=== PATIENT | male | born 1970 | race Caucasian/White ===

== ENCOUNTER 2018-10-23 00:39 | Inpatient (IN) | payer OTHER ==
--- OUTSIDE RECORDS SUMMARY | 2018-10-23 00:43 | XMS REPORT ---
:1970 [facility] Address [address] [place] [address] Dr. Fuentes [address] [place] [id number] Care Team Providers Name Role Phone Unavailable Unavailable Unavailable Problems This patient has no known problems. Allergies, Adverse Reactions, Alerts This patient has no known allergies or adverse reactions. Medications This patient has no known medications.
--- OUTSIDE RECORDS SUMMARY | 2018-10-23 00:43 | XMS REPORT | Clinical Summary ---
:1970 Author Organization [facility] Address [address] [place] [address] Care Team Providers Name Role Phone Unavailable Primary Care Provider Unavailable Allergies Not on File Medications Not on file Active Problems Not on file Social History Tobacco Use Types Packs/Day Years Used Date Never Assessed Sex Assigned at Date Recorded Not on file Job Start Date Occupation Industry Not on file Not on file Not on file Travel History Travel Start Travel End No recent travel history available. Last Filed Vital Signs Not on file Plan of Treatment Not on file Results Not on fileafter 10/22/2017 Insurance Payer Benefit Plan / Group Subscriber ID Type Phone Address [place]
--- OUTSIDE RECORDS SUMMARY | 2018-10-23 00:43 | XMS REPORT | Clinical Summary ---
:1970 Author Organization [facility] Address [address] [place] [address] Care Team Providers Name Role Phone Asked, No Pcp Primary Care Provider Unavailable Allergies No Known Allergies Medications Medication Sig Dispensed Refills Start Date End Date Status aspirin (ECOTRIN) 81 Take 81 mg by 0 Active MG enteric coated mouth daily. tablet atorvastatin Take 40 mg by 0 Active (LIPITOR) 40 MG mouth nightly. tablet carisoprodol (SOMA) Take 350 mg by 0 Active 350 MG tablet mouth 3 (three) times a day as needed for muscle spasms. carvedilol (COREG) Take 12.5 mg 0 Active 12.5 MG tablet by mouth 2 (two) times a day with meals. digOXIN (LANOXIN) Take 125 mcg 0 Active 125 mcg tablet by mouth daily. HYDROcodone-acetamin Take 1 tablet 0 Active ophen (NORCO) 10-325 by mouth every mg per tablet 6 (six) hours as needed for moderate pain. isosorbide Take 30 mg by 0 Active mononitrate (IMDUR) mouth daily. 30 MG 24 hr tablet lisinopril Take 20 mg by 0 Active (PRINIVIL,ZESTRIL) mouth daily. 20 mg tablet pantoprazole Take 40 mg by 0 Active (PROTONIX) 40 MG EC mouth daily. tablet traMADol (ULTRAM) 50 Take 50 mg by 0 Active mg tablet mouth every 8 (eight) hours as needed for moderate pain. aspirin (ECOTRIN) 81 Take 81 mg by 0 /03/20 Discontinued MG enteric coated mouth daily. 18 tablet atorvastatin Take 40 mg by 0 20 Discontinued (LIPITOR) 40 MG mouth nightly. 18 tablet furosemide (LASIX) Take 80 mg by 0 05/06/20 Discontinued 80 MG tablet mouth 2 (two) 18 times a day. potassium chloride Take 40 mEq by 0 05/06/20 Discontinued (K-DUR) 20 MEQ CR mouth daily. 18 tablet lisinopril Take 20 mg by 0 05/06/20 Discontinued (PRINIVIL,ZESTRIL) mouth daily. 18 20 MG tablet metoprolol succinate Take 12.5 mg 0 05/06/20 Discontinued XL (TOPROL-XL) 25 MG by mouth 2 18 24 hr tablet (two) times a day. HYDROcodone-acetamin Take 1 tablet 0 05/06/20 Discontinued ophen (NORCO 10-325) by mouth every 18 10-325 mg per tablet 6 (six) hours as needed for moderate pain. pantoprazole Take 40 mg by 0 05/06/20 Discontinued (PROTONIX) 40 MG EC mouth daily. 18 tablet traMADol (ULTRAM) 50 Take 50 mg by 0 05/06/20 Discontinued mg tablet mouth every 8 18 (eight) hours as needed for moderate pain. digOXIN (LANOXIN) Take 125 mcg 0 05/06/20 Discontinued 125 mcg tablet by mouth 18 daily. isosorbide Take 30 mg by 0 05/06/20 Discontinued mononitrate (IMDUR) mouth daily. 18 30 MG 24 hr tablet carvedilol (COREG) Take 12.5 mg 0 05/06/20 Discontinued 12.5 MG tablet by mouth 2 18 (two) times a day with meals. amoxicillin-pot Take 1 tablet 0 05/06/20 Discontinued clavulanate by mouth 2 18 (AUGMENTIN) 875-125 (two) times a mg per tablet day. spironolactone Take 25 mg by 0 05/06/20 Discontinued (ALDACTONE) 25 MG mouth daily. 18 tablet triamcinolone Apply 4.1667 600 mL 0 01/18/2018 02/18/20 acetonide mg topically 2 18 (TRIAMCINOLONE 100 (two) times a MG IN LUBRIDERM) 100 day for 30 mg lotion days. amoxicillin (AMOXIL) Take 2 24 capsule 0 01/18/2018 01/23/20 500 MG capsule capsules 18 (1,000 mg total) by mouth 3 (three) times a day for 4 days. minocycline Take 1 capsule 8 capsule 0 01/18/2018 01/23/20 (MINOCIN,DYNACIN) (100 mg total) 18 100 MG capsule by mouth every 12 (twelve) hours for 4 days. levothyroxine Take 1 tablet 30 tablet 1 01/19/2018 02/19/20 (SYNTHROID, LEVOXYL) (50 mcg total) 18 50 mcg tablet by mouth daily for 30 days. carisoprodol (SOMA) TAKE 1 TABLET 0 02/22/2018 05/06/20 Discontinued 350 MG tablet BY MOUTH 2 TO 18 3 TIMES A DAY NEEDED furosemide (LASIX) Take 80 mg by 0 05/20/20 Discontinued 80 mg tablet mouth 2 (two) 18 times a day. potassium chloride Take 20 mEq by 0 05/20/20 Discontinued (K-DUR) 20 MEQ CR mouth 2 (two) 18 tablet times a day. carvedilol (COREG) Take 1 tablet 60 tablet 3 05/20/2018 06/19/20 12.5 MG tablet (12.5 mg 18 total) by mouth 2 (two) times a day with meals for 30 days. diphenhydrAMINE Take 2 tablets 60 tablet 0 05/20/2018 06/19/20 (BENADRYL) 25 mg (50 mg total) 18 tablet by mouth 2 (two) times a day for 30 days. triamcinolone Apply 460,000 [id number] mL 3 05/20/2018 06/19/20 acetonide mg topically 2 18 (TRIAMCINOLONE 100 (two) times a MG IN LUBRIDERM) 100 day for 30 mg lotion days. furosemide (LASIX) Take 1 tablet 60 tablet 3 05/20/2018 06/19/20 80 mg tablet (80 mg total) 18 by mouth 2 (two) times a day for 30 days. potassium chloride Take 1 capsule 30 capsule 3 05/21/2018 06/20/20 (MICRO-K) 10 MEQ CR (10 mEq total) 18 capsule by mouth daily for 30 days. spironolactone Take 1 tablet 30 tablet 3 05/21/2018 06/20/20 (ALDACTONE) 50 MG (50 mg total) 18 tablet by mouth daily for 30 days. metOLazone Take 1 tablet 30 tablet 3 05/21/2018 06/20/20 (ZAROXOLYN) 5 MG (5 mg total) 18 tablet by mouth daily for 30 days. gentamicin Apply 120 g 3 05/20/2018 06/19/20 (GARAMYCIN) 0.1 % topically 18 ointment daily for 30 days. chlorhexidine Apply 600 mL 2 05/20/2018 06/19/20 (HIBICLENS) 4 % topically 18 external liquid daily as needed for wound care for up to 30 days. Apply to affected areas daily nitroglycerin Place 0.5 60 g 1 05/20/2018 06/19/20 (NITROSTAT) 2 % inches on the 18 ointment skin every 6 (six) hours for [address] 1 tablet 90 tablet 12 05/20/2018 05/20/20 (NITROSTAT) 0.4 MG (0.4 mg total) 18 SL tablet under the tongue once for 1 dose. minocycline Take 1 capsule 6 capsule 0 05/20/2018 05/23/20 (MINOCIN) 100 MG (100 mg total) 18 capsule by mouth 2 (two) times a day for 3 days. Active Problems Problem Noted Date Stasis dermatitis 05/07/2018 Cellulitis 01/12/2018 Acquired hypothyroidism 01/09/2018 Acute on chronic congestive heart failure 01/08/2018 Essential hypertension 01/08/2018 Chest pain 05/22/2016 CHF exacerbation 05/22/2016 Morbid obesity 05/22/2016 Encounters Date Type Specialty Care Team Description 05/20/2018 Patient Outreach Quality Liz Hall RN 05/20/2018 Telephone Cardiology Diana Hanley 05/19/2018 Surgery Procedural Jennifer Anglin aicd implant Cardiology MD Dilcia single dual bi vent [[id number] (CPT)] 05/19/2018 Anesthesia Event Procedural Kathy Jolley CRNA 05/13/2018 Telephone Transplant Angelo Rios - Heart QUIRINO Adorno Txp (Inpatient) 05/06/2018 - Hospital Encounter Cardiology Jude Tang Acute on chronic combined systolic and diastolic congestive heart failure (Primary Dx); 05/20/2018 B., DO Chest pain, unspecified type; Attar, Congestive heart failure, unspecified congestive heart failure chronicity, unspecified congestive heart failure type; MD Gabby Prurigo; Kimberly, Morbid obesity; Jason Hill MD Essential hypertension; Antwan, Acquired hypothyroidism; Mendoza O. Sr., Cellulitis of left lower extremity; Venous stasis dermatitis of both lower extremities 01/08/2018 - Hospital Encounter Cardiology Gissell Ramirez Acute on chronic congestive heart failure, unspecified congestive heart failure type (Primary Dx) ; 01/18/2018 MD Toni Pyoderma gangrenosum; Antwan, Other forms of angina pectoris; Mendoza O. Sr., Morbid obesity; Acute on chronic combined systolic and diastolic congestive heart failure; Essential hypertension; Acquired hypothyroidism; Cellulitis of left lower extremity after 10/22/2017 Immunizations Name Dates Previously Given Next Due Influenza, Unspecified 05/22/2015 Pneumococcal, Unspecified 05/22/2016 (Deferred: Patient decision) Social History Tobacco Use Types Packs/Day Years Used Date Never Smoker Smokeless Tobacco: Never Used Alcohol Use Drinks/Week oz/Week Comments No Sex Assigned at Date Recorded Not on file Job Start Date Occupation Industry Not on file Not on file Not on file Travel History Travel Start Travel End No recent travel history available. Last Filed Vital Signs Vital Sign Reading Time Taken Blood Pressure 143/66 05/20/2018 11:31 AM CDT Pulse 73 05/20/2018 11:31 AM CDT Temperature 36.3 C (97.3 F) 05/20/2018 11:31 AM CDT Respiratory Rate 18 05/20/2018 11:31 AM CDT Oxygen Saturation 92% 05/20/2018 11:31 AM CDT Inhaled Oxygen Concentration - - Weight 140 kg (309 lb 8 oz) 05/20/2018 5:00 AM CDT Height 177.8 cm (5' 10") 05/06/2018 3:09 PM CDT Body Mass Index 44.41 05/20/2018 5:00 AM CDT Plan of Treatment Health Maintenance Due Date Last Done Comments INFLUENZA VACCINE 05/04/2018 05/22/2015 Implants Implanted Type Area [employer] Umpire Device Shelf Model / Identifier Expiration Serial / Date Lot Lead Barnum Philo Df4 - [id number] Cardiac Pacing N/A: RAYMOND JAMES 03/25/2020 0296 / Implanted: 05/19/2018 (Quantity not on file) Leads or N/A BERE [id number] / Electrodes or [id number] Accessories Lead Website Designer Acuity 4672 - [id number] Cardiac Pacing N/A: BOSTON 09/14/2018 4672 / Implanted: 05/19/2018 (Quantity not on file) Leads or N/A SCIENTIFIC- CRM [id number] / Electrodes or [id number] Accessories 52cm Ingevity Mri Active Fixation Pacing Lead - [id number] Cardiac Pacing N/A : BOSTON 04/30/2020 7741 / Implanted: 05/19/2018 (Quantity not on file) Leads or N/A SCIENTIFIC- CRM [id number] / Electrodes or [id number] Accessories Envlp Impl Crdvrtr Dfb Antbctrl Fully Resorb Lg Aigissrx R - [id number] Cardiovascular N/A: MEDTRONIC [id number] / Implanted: 05/19/2018 (Quantity not on file) Implants N/A / Website Designer-D Vigilant X4 Is4 Df4 - [id number] Defibrillator ICD N/A: BOSTON [id number] / Implanted: 05/19/2018 (Quantity not on file) Devices N/A SCIENTIFIC- CRM / Procedures Procedure Name Priority Date/Time Associated Comments Diagnosis ECG 12-LEAD STAT 05/19/2018 9:16 Results for this PM CDT procedure are in the results section. ECG 12-LEAD STAT 05/19/2018 5:39 Results for this PM CDT procedure are in the results section. EP AICD IMPLANT SINGLE Routine 05/19/2018 5:10 Results for this DUAL BI VENT PM CDT procedure are in the results section. ECG 12-LEAD Routine 05/19/2018 1:29 Results for this PM CDT procedure are in the results section. ZZESTIMATED GFR Routine 05/19/2018 4:54 Results for this AM CDT procedure are in the results section. PHOSPHORUS LEVEL Routine 05/19/2018 4:54 Results for this AM CDT procedure are in the results section. MAGNESIUM LEVEL Routine 05/19/2018 4:54 Results for this AM CDT procedure are in the results section. BASIC METABOLIC PANEL Routine 05/19/2018 4:54 Results for this AM CDT procedure are in the results section. HC COMPLETE BLD COUNT Routine 05/19/2018 4:54 Results for this W/AUTO DIFF AM CDT procedure are in the results section. ZZESTIMATED GFR Routine 05/18/2018 3:08 Results for this AM CDT procedure are in the results section. PHOSPHORUS LEVEL Routine 05/18/2018 3:08 Results for this AM CDT procedure are in the results section. MAGNESIUM LEVEL Routine 05/18/2018 3:08 Results for this AM CDT procedure are in the results section. BASIC METABOLIC PANEL Routine 05/18/2018 3:08 Results for this AM CDT procedure are in the results section. HC COMPLETE BLD COUNT Routine 05/18/2018 3:08 Results for this W/AUTO DIFF AM CDT procedure are in the results section. ZZESTIMATED GFR Routine 05/17/2018 4:52 Results for this AM CDT procedure are in the results section. PHOSPHORUS LEVEL Routine 05/17/2018 4:52 Results for this AM CDT procedure are in the results section. MAGNESIUM LEVEL Routine 05/17/2018 4:52 Results for this AM CDT procedure are in the results section. BASIC METABOLIC PANEL Routine 05/17/2018 4:52 Results for this AM CDT procedure are in the results section. HC COMPLETE BLD COUNT Routine 05/17/2018 4:52 Results for this W/AUTO DIFF AM CDT procedure are in the results section. ZZESTIMATED GFR Routine 05/16/2018 6:20 Results for this AM CDT procedure are in the results section. HC COMPLETE BLD COUNT Routine 05/16/2018 6:20 Results for this W/AUTO DIFF AM CDT procedure are in the results section. MAGNESIUM LEVEL Routine 05/16/2018 6:20 Results for this AM CDT procedure are in the results section. BASIC METABOLIC PANEL Routine 05/16/2018 6:20 Results for this AM CDT procedure are in the results section. ZZESTIMATED GFR Routine 05/15/2018 6:43 Results for this AM CDT procedure are in the results section. BASIC METABOLIC PANEL Routine 05/15/2018 6:43 Results for this AM CDT procedure are in the results section. ZZESTIMATED GFR Routine 05/15/2018 4:46 Results for this AM CDT procedure are in the results section. MAGNESIUM LEVEL Routine 05/15/2018 4:46 Results for this AM CDT procedure are in the results section. PHOSPHORUS LEVEL Routine 05/15/2018 4:46 Results for this AM CDT procedure are in the results section. BASIC METABOLIC PANEL Routine 05/15/2018 4:46 Results for this AM CDT procedure are in the results section. POC GLUCOSE Routine 05/13/2018 9:56 Results for this PM CDT procedure are in the results section. MAGNESIUM LEVEL Routine 05/12/2018 3:36 Results for this AM CDT procedure are in the results section. ZZESTIMATED GFR Routine 05/12/2018 3:36 Results for this AM CDT procedure are in the results section. BASIC METABOLIC PANEL Routine 05/12/2018 3:36 Results for this AM CDT procedure are in the results section. ECHOCARDIOGRAM 2D Routine 05/10/2018 7:27 Results for this COMPLETE W MMODE AM CDT procedure are in SPECTRAL COLOR DOPPLER the results (15982) section. ZZESTIMATED GFR Routine 05/10/2018 3:05 Results for this AM CDT procedure are in the results section. MAGNESIUM LEVEL Routine 05/10/2018 3:05 Results for this AM CDT procedure are in the results section. BASIC METABOLIC PANEL Routine 05/10/2018 3:05 Results for this AM CDT procedure are in the results section. ZZESTIMATED GFR Routine 05/09/2018 4:00 Results for this AM CDT procedure are in the results section. BASIC METABOLIC PANEL Routine 05/09/2018 4:00 Results for this AM CDT procedure are in the results section. ZZESTIMATED GFR Routine 05/08/2018 5:00 Results for this AM CDT procedure are in the results section. BASIC METABOLIC PANEL Routine 05/08/2018 5:00 Results for this AM CDT procedure are in the results section. POC GLUCOSE Routine 05/07/2018 8:16 Results for this PM CDT procedure are in the results section. CONSULT TO OSTOMY CARE Routine 05/07/2018 11:27 NURSE AM CDT ECG 12-LEAD STAT 05/07/2018 9:37 Results for this AM CDT procedure are in the results section. GRAM STAIN Routine 05/07/2018 8:10 Results for this AM CDT procedure are in the results section. AEROBIC CULTURE Routine 05/07/2018 8:10 Results for this AM CDT procedure are in the results section. ZZESTIMATED GFR Routine 05/07/2018 6:15 Results for this AM CDT procedure are in the results section. BASIC METABOLIC PANEL Routine 05/07/2018 6:15 Results for this AM CDT procedure are in the results section. B NATRIURETIC PEPTIDE Routine 05/07/2018 6:05 Results for this AM CDT procedure are in the results section. CBC HEMOGRAM Routine 05/07/2018 6:05 Results for this AM CDT procedure are in the results section. TROPONIN Timed 05/06/2018 7:12 Results for this PM CDT procedure are in the results section. XR CHEST 1 VW PORTABLE STAT 05/06/2018 5:14 Results for this PM CDT procedure are in the results section. ZZESTIMATED GFR STAT 05/06/2018 3:27 Results for this PM CDT procedure are in the results section. TROPONIN STAT 05/06/2018 3:27 Results for this PM CDT procedure are in the results section. B NATRIURETIC PEPTIDE STAT 05/06/2018 3:27 Results for this PM CDT procedure are in the results section. BASIC METABOLIC PANEL STAT 05/06/2018 3:27 Results for this PM CDT procedure are in the results section. HC COMPLETE BLD COUNT STAT 05/06/2018 3:27 Results for this W/AUTO DIFF PM CDT procedure are in the results section. ECG 12-LEAD STAT 05/06/2018 2:46 Results for this PM CDT procedure are in the results section. ZZESTIMATED GFR Routine 01/17/2018 2:56 Results for this AM CDT procedure are in the results section. BASIC METABOLIC PANEL Routine 01/17/2018 2:56 Results for this AM CDT procedure are in the results section. HC COMPLETE BLD COUNT Routine 01/17/2018 2:56 Results for this W/AUTO DIFF AM CDT procedure are in the results section. ZZESTIMATED GFR Routine 01/16/2018 4:55 Results for this AM CDT procedure are in the results section. MAGNESIUM LEVEL Routine 01/16/2018 4:55 Results for this AM CDT procedure are in the results section. B NATRIURETIC PEPTIDE Routine 01/16/2018 4:55 Results for this AM CDT procedure are in the results section. DIGOXIN LEVEL Routine 01/16/2018 4:55 Results for this AM CDT procedure are in the results section. BASIC METABOLIC PANEL Routine 01/16/2018 4:55 Results for this AM CDT procedure are in the results section. HC COMPLETE BLD COUNT Routine 01/16/2018 4:55 Results for this W/AUTO DIFF AM CDT procedure are in the results section. ZZESTIMATED GFR Routine 01/15/2018 5:40 Results for this AM CDT procedure are in the results section. BASIC METABOLIC PANEL Routine 01/15/2018 5:40 Results for this AM CDT procedure are in the results section. HC COMPLETE BLD COUNT Routine 01/15/2018 5:40 Results for this W/AUTO DIFF AM CDT procedure are in the results section. ECHOCARDIOGRAM 2D Routine 01/11/2018 7:56 Results for this COMPLETE W MMODE AM CDT procedure are in SPECTRAL COLOR DOPPLER the results (83614) section. ZZESTIMATED GFR Routine 01/11/2018 4:00 Results for this AM CDT procedure are in the results section. BASIC METABOLIC PANEL Routine 01/11/2018 4:00 Results for this AM CDT procedure are in the results section. HC COMPLETE BLD COUNT Routine 01/11/2018 4:00 Results for this W/AUTO DIFF AM CDT procedure are in the results section. MANUAL DIFFERENTIAL Routine 01/10/2018 4:23 Results for this AM CDT procedure are in the results section. ZZESTIMATED GFR Routine 01/10/2018 4:23 Results for this AM CDT procedure are in the results section. BASIC METABOLIC PANEL Routine 01/10/2018 4:23 Results for this AM CDT procedure are in the results section. CBC WITH PLATELET AND Routine 01/10/2018 4:23 Results for this DIFFERENTIAL AM CDT procedure are in the results section. URINALYSIS SCREEN AND Routine 01/09/2018 4:00 Results for this MICROSCOPY, WITH REFLEX AM CDT procedure are in TO CULTURE the results section. URINE CULTURE Routine 01/09/2018 4:00 Results for this AM CDT procedure are in the results section. MANUAL DIFFERENTIAL Routine 01/09/2018 3:00 Results for this AM CDT procedure are in the results section. ZZESTIMATED GFR Routine 01/09/2018 3:00 Results for this AM CDT procedure are in the results section. T4, FREE Routine 01/09/2018 3:00 Results for this AM CDT procedure are in the results section. THYROID STIMULATING Routine 01/09/2018 3:00 Results for this HORMONE AM CDT procedure are in the results section. LIPID PANEL Routine 01/09/2018 3:00 Results for this AM CDT procedure are in the results section. BASIC METABOLIC PANEL Routine 01/09/2018 3:00 Results for this AM CDT procedure are in the results section. CBC WITH PLATELET AND Routine 01/09/2018 3:00 Results for this DIFFERENTIAL AM CDT procedure are in the results section. TROPONIN Routine 01/09/2018 3:00 Results for this AM CDT procedure are in the results section. XR CHEST 1 VW PORTABLE STAT 01/08/2018 8:16 Results for this PM CDT procedure are in the results section. MANUAL DIFFERENTIAL Routine 01/08/2018 8:15 Results for this PM CDT procedure are in the results section. B NATRIURETIC PEPTIDE Routine 01/08/2018 8:15 Results for this PM CDT procedure are in the results section. PARTIAL THROMBOPLASTIN Routine 01/08/2018 8:15 Results for this TIME (PTT) PM CDT procedure are in the results section. PROTHROMBIN TIME WITH Routine 01/08/2018 8:15 Results for this INR PM CDT procedure are in the results section. CBC WITH PLATELET AND Routine 01/08/2018 8:15 Results for this DIFFERENTIAL PM CDT procedure are in the results section. ECG 12-LEAD STAT 01/08/2018 7:56 Results for this PM CDT procedure are in the results section. ECG ED PRELIMINARY Routine 01/08/2018 7:52 Results for this INTERPRETATION PM CDT procedure are in the results section. ZZESTIMATED GFR Routine 01/08/2018 7:52 Results for this PM CDT procedure are in the results section. TROPONIN Routine 01/08/2018 7:52 Results for this PM CDT procedure are in the results section. COMPREHENSIVE METABOLIC Routine 01/08/2018 7:52 Results for this PANEL PM CDT procedure are in the results section. after 10/22/2017 Results ECG 12 lead (05/19/2018 9:16 PM CDT)Only the most recent of6 resultswithin the time period is included. Ventricular rate 112 [facility] Atrial rate 112 [facility] [place] interval 164 [facility] QRSD interval 120 [facility] QT interval 340 [facility] QTC interval 464 [facility] P axis 1 15 [facility] QRS axis 1 155 [facility] T wave axis -4 [facility] EKG impression Sinus tachycardia-Right axis deviation-Septal infarct , age undetermined-Abnormal ECG-In automated comparison with ECG of -MAY-2018 17:39, -premature ventricular complexes are no longer present-Electro [facility] nically Signed By Ulysses Nichols MD ([id number]) on 05/22/2018 10:18:32 PM Performing Organization Address City/State/Zipcode Phone Number [facility] [address] [place] [address] Cv electrophysiology procedure (05/19/2018 5:10 PM CDT) Narrative Performed At TITLE OF THE PROCEDURE: DARLENE HUIZAR ARTIST AND REPERTOIRE MANAGER defibrillator.Implantation of an atrio-biventricular resynchronization device. PREOPERATIVE DIAGNOSES: 1.Nonischemic dilated cardiomyopathy. 2.Congestive heart failure, [place] [employer], class III. 3.Left bundle-branch block, QRS duration, 138 msec. 4.Morbid obesity. 5.Recent skin infections. POSTOPERATIVE DIAGNOSES: 1.Non-ischemic dilated cardiomyopathy. 2.Congestive heart failure, [place] [employer], class III. 3.Left bundle-branch block, QRS duration, 138 msec. 4.Morbid obesity. 5.Recent skin infections. PROCEDURES PERFORMED: 1.Monitored anesthesia care. 2.ARTIST AND REPERTOIRE MANAGER defibrillator placement. 3.Left upper extremity venogram. 4.Cardiac fluoroscopy. 5.Coronary Sinus venogram 6.Insertion of left ventricular venous branch pacing lead. 7.Insertion of right ventricular apical pacing lead. 8.Insertion of right atrial pacing lead. 9.Insertion of atrio-biventricular resynchronization device. 10.Intravenous sedation. 11.Intra-operative testing of device. 12.Fluoroscopic evaluation of leads during insertion. ANESTHESIA: 1.1% Xylocaine solution. 2.Intravenous Versed. 3.Intravenous fentanyl. 4.Intravenous etomidate (when required). BRIEF HISTORY AND CLINICAL BACKGROUND: This is a 48-year-old man with a long history of nonischemic cardiomyopathy who has been on optimized medical therapy for greater than three months.He is in the hospital with symptoms of heart failure.He is on a milrinone drip. He was referred for consideration of primary prevention defibrillator.The patient understands the concepts and benefits of a ARTIST AND REPERTOIRE MANAGER defibrillator after we discussed it in great detail in his office.Risks and benefits were reviewed and he agreed to proceed. PROCEDURE: Informed consent had been obtained.Intravenous antibiotics were appropriately infused.The patient was taken to the electrophysiology lab in the fasting, nonsedated, drug-free state.The patient was prepped and draped in the usual sterile fashion.Utilizing an upper extremity venogram, access was achieved into the subclavian and axillary veins x 3.Access was achieved via the Seldinger technique.Three J-wires were advanced into the heart/IVC. Using a scalpel and cautery and blunt dissection, the pocket was formed below the plane of the pectoralis fascia after anesthesia had been achieved with 1% Xylocaine solution.Utilizing standard technique, the RVA and RA leads were placed into the venous system and the sheaths removed.The right ventricular apical defibrillation and pace and sense lead was placed into the RV [place]. Acute pacing and sensing thresholds were obtained and found to be satisfactory. Maximum output pacing was performed to ensure no diaphragmatic stimulation, and none was seen.Left anterior oblique and FINLEY views were performed to assess the position within the RV.The lead was sutured to the pectoralis muscle utilizing interrupted 0-Ethibond suture. The remaining J-wire was mobilized and a short 9-Surinamese sheath was placed into the subclavian vein.Through this sheath the guide/venogram balloon system was advanced for cannulation and venography of the Coronary Sinus (CS). Access to the CS was achieved and a CS venogram was performed to identify suitable branches for use.Subsequently, the CS lead was placed into a suitable vein. Acute pacing and sensing thresholds were obtained in the unipolar and biventricular fashion.Maximum pacing output was performed to assess for diaphragmatic stimulation. Thereafter, the short 9-Surinamese sheath and then the guide sheath were removed under fluoroscopy ensuring that the coronary sinus branch logistics supervisor maintained position.Thereafter, the lead was sutured to the pectoralis muscle utilizing interrupted 0-Ethibond suture around the lead collar. The atrial lead, was placed and affixed into the right atrium via the active fixation mechanism.Maximum pacing output was performed to ensure that there was no diaphragmatic stimulation, and none was seen after acute pacing and sensing thresholds were found to be satisfactory.The lead was sutured to the pectoralis muscle with Ethibond suture around the lead collar. Thereafter, the pocket was visually, manually, and radiographically inspected to ensure there were no gauze or sponges in the pocket, the pocket was washed with copious amounts of antibiotic-impregnated saline, and the device was connected to the various leads.The set screws were tightened and each lead was tugged upon to ensure that they were affixed within the header.The device was placed into the pocket and affixed to the pectoralis muscle utilizing a single 0-Ethibond suture through the suture hole in the header. DFT assessment was performed and when deemed adequate, the wound was then closed in layers utilizing running Vicryl suture x 2 planes followed by simona and skin adhesive.Excellent approximation of the wound edges and hemostasis was achieved at all phases of closure. COMPLICATIONS: None. FINDINGS: 1.The right ventricular apical defibrillation lead is a [employer] Barnum 4 site, model #0296, serial #[id number], measured R wave 20 mV, pacing threshold 0.5, current ____ impedance 635 ohms, shock impedance ____ ohms. 2.The RA lead is a [employer]evity MRI model #7741, serial #[id number], measured P wave is 4.3 mV, pacing threshold 0.5 V, current 0.7 mA, impedance 721 ohms. 3.The LV lead is a [employer] Acuity-X4 Straight placed distally in the anterolateral branch, model #4672, serial #[id number], measured R wave 20.2 mV, pacing threshold in LV ring #2 to RV configuration 0.8 V, impedance 1097 ohms, current 0.8 mA. 4.The defibrillator is a [employer] Vigilant X4 ARTIST AND REPERTOIRE MANAGER-D model G247, serial #[id number]. 5.Defibrillation Safety Threshold testing was not performed. 6.Estimated blood loss less than 10 mL. CONCLUSIONS: Successful ARTIST AND REPERTOIRE MANAGER-D. RECOMMENDATIONS: IV antibiotics postop and home per Dr. Cagle's service. Performing Organization Address [facility] Phone Number [facility] [address] [place] [address] Estimated GFR (05/19/2018 4:54 AM CDT)Only the most recent of19 resultswithin the time period is included. GFR Non Af Amer 80 mL/min/1.73 m2 [facility] DEPARTMENT OF PATHOLOGY AND GENOMIC MEDICINE GFR Af Amer >90 mL/min/1.73 m2 [facility] DEPARTMENT OF Comment: PATHOLOGY AND GENOMIC Chronic kidney disease: <60 mL/min/1.73m2 MEDICINE Kidney failure: <15 mL/min/1.73m2 The estimated GFR is calculated from the IDMS-traceable Modification of Diet in Renal Disease Equation. The accuracy of the calculation is poor when the creatinine is normal. Calculated values >90 mL/min/1.73m2 are not reported. This equation has not been validated in children (<18 years), women, the elderly (>70 years), or ethnic groups other than Caucasians and Americans. Specimen Plasma specimen Performing Organization Address City/[facility] Phone Number [facility] DEPARTMENT OF PATHOLOGY AND [address] [place] [address] GENOMIC [facility] CBC with platelet and differential (05/19/2018 4:54 AM CDT)Only the most recent of12 resultswithin the time period is included. WBC 6.25 4.50 - 11.00 k/uL [facility] DEPARTMENT OF PATHOLOGY AND GENOMIC MEDICINE RBC 4.46 4.40 - 6.00 m/uL [facility] DEPARTMENT OF PATHOLOGY AND GENOMIC MEDICINE HGB 13.9 (L) 14.0 - 18.0 g/dL [facility] DEPARTMENT OF PATHOLOGY AND GENOMIC MEDICINE HCT 42.7 41.0 - 51.0 % [facility] DEPARTMENT OF PATHOLOGY AND GENOMIC MEDICINE MCV 95.7 82.0 - 100.0 fL [facility] DEPARTMENT OF PATHOLOGY AND GENOMIC MEDICINE MCH 31.2 27.0 - 34.0 pg [facility] DEPARTMENT OF PATHOLOGY AND GENOMIC MEDICINE MCHC 32.6 31.0 - 37.0 g/dL [facility] DEPARTMENT OF PATHOLOGY AND GENOMIC MEDICINE RDW - SD 47.8 37.0 - 55.0 fL [facility] DEPARTMENT OF PATHOLOGY AND GENOMIC MEDICINE MPV 8.5 (L) 8.8 - 13.2 fL [facility] DEPARTMENT OF PATHOLOGY AND GENOMIC MEDICINE Platelet count 254 150 - 400 k/uL [facility] DEPARTMENT OF PATHOLOGY AND GENOMIC MEDICINE Nucleated RBC 0.00 /100 WBC [facility] DEPARTMENT OF PATHOLOGY AND GENOMIC MEDICINE Neutrophils 58.4 39.0 - 69.0 % [facility] DEPARTMENT OF PATHOLOGY AND GENOMIC MEDICINE Lymphocytes 28.8 25.0 - 45.0 % [facility] DEPARTMENT OF PATHOLOGY AND GENOMIC MEDICINE Monocytes 9.1 0.0 - 10.0 % [facility] DEPARTMENT OF PATHOLOGY AND GENOMIC MEDICINE Eosinophils 2.2 0.0 - 5.0 % [facility] DEPARTMENT OF PATHOLOGY AND GENOMIC MEDICINE Basophils 1.0 0.0 - 1.0 % [facility] DEPARTMENT OF PATHOLOGY AND GENOMIC MEDICINE Immature granulocytes 0.5Comment: 0.0 - 1.0 % [facility] DEPARTMENT OF "Immature PATHOLOGY AND GENOMIC granulocytes" MEDICINE (promyelocytes, myelocytes, metamyelocytes) Specimen Blood Performing Organization Address City/State/Zipcode Phone Number [facility] DEPARTMENT OF PATHOLOGY AND [address] [place] [address] [employer] [facility] Phosphorus level (05/19/2018 4:54 AM CDT)Only the most recent of4 resultswithin the time period is included. Phosphorus 4.0 2.4 - 4.5 mg/dL [facility] DEPARTMENT OF PATHOLOGY AND GENOMIC MEDICINE Specimen Plasma specimen Performing Organization Address City/[facility] Phone Number [facility] DEPARTMENT OF PATHOLOGY AND [address] [place] [address] Magnesium level (05/19/2018 4:54 AM CDT)Only the most recent of8 resultswithin the time period is included. Magnesium 2.0 1.6 - 2.6 mg/dL [facility] DEPARTMENT OF PATHOLOGY AND GENOMIC MEDICINE Specimen Plasma specimen Performing Organization Address City/[facility] Phone Number [facility] DEPARTMENT OF PATHOLOGY AND [address] [place] [address] Basic metabolic panel (05/19/2018 4:54 AM CDT)Only the most recent of18 resultswithin the time period is included. Sodium 133 (L) 135 - 148 mEq/L [facility] DEPARTMENT OF PATHOLOGY AND GENOMIC MEDICINE Potassium 4.4 3.5 - 5.0 mEq/L [facility] DEPARTMENT OF PATHOLOGY AND GENOMIC MEDICINE Chloride 93 (L) 98 - 112 mEq/L [facility] DEPARTMENT OF PATHOLOGY AND GENOMIC MEDICINE CO2 26 24 - 31 mEq/L [facility] DEPARTMENT OF PATHOLOGY AND GENOMIC MEDICINE Anion gap 14@ANIO 7 - 15 mEq/L [facility] DEPARTMENT OF PATHOLOGY AND GENOMIC MEDICINE BUN 26 (H) 6 - 20 mg/dL [facility] DEPARTMENT OF PATHOLOGY AND GENOMIC MEDICINE Creatinine 1.0 0.7 - 1.2 mg/dL [facility] DEPARTMENT OF PATHOLOGY AND GENOMIC MEDICINE Glucose 112 (H) 65 - 99 mg/dL [facility] DEPARTMENT OF PATHOLOGY AND GENOMIC MEDICINE Calcium 9.3 8.3 - 10.2 mg/dL [facility] DEPARTMENT OF PATHOLOGY AND GENOMIC MEDICINE Specimen Plasma specimen Performing Organization Address [facility] Phone Number [facility] DEPARTMENT OF PATHOLOGY AND [address] [place], [place] [phone] [facility] POC glucose (05/13/2018 9:56 PM CDT)Only the most recent of2 resultswithin the time period is included. POC glucose 128 (H) 65 - 99 mg/dL [facility] DEPARTMENT OF PATHOLOGY AND Comment: GENOMIC MEDICINE [facility] Notified RN Meter ID: [id number] Director Of Catering Sales: Karina Severino Performing Organization Address [facility] Cent[facility] Phone Number [facility] DEPARTMENT OF PATHOLOGY AND [address] Echocardiogram complete w contrast and 3D if needed (05/10/2018 7:27 AM CDT) Narrative Performed At [facility] Echocardiography Report [address] [facility] [address], [place] [address] Pat.Name:SIVA WEST Pat.ID:[id number] .Date: 05/10/2018Refer.MD:GABBY CAGLE MD Exam Time: 7:41:00 AMStudy Type:Routine Echo Height:75inWeight: 317lb BSA: 2.67 m2 DOBAge:1970,48Y Sex: MALEBP:113/70 HR:88 bpmSonogrphr: Catalina Schmidt [facility] Pat. Stat.:Inpatient Room:[facility] Study Status:Final Echo Event ID:[id number] Order ID:[id number] Reason for Study:CHF History / Clinical:Chest Pain, Congestive Heart Failure Procedures:2D Echo, Colorflow Doppler Race:C SUMMARY: LV EF is severely depressed. Estimated EF is <20%. RV size is enlarged. RV systolic function is severely depressed. FINDINGS: LV: LV size is moderately enlarged. There is severe eccentric LV hypertrophy.LV EF is severely depressed. Global hypokinesis.Estimated EF is <20%. RV: RV size is enlarged. RV systolic function is severely depressed. LA: LA volume is severely enlarged. RA: RA volume is mildly enlarged. AO: Aortic root diameter is normal. NESSA: No pericardial effusion. AV: No structural AV abnormalities noted. MV: No structural MV abnormalities noted. PV: No structural PV abnormalities noted. A trace of pulmonic regurgitation. TV: No structural TV abnormalities noted. Hunter: LV relaxation is impaired. LV filling pressure is borderline elevated. Other:Insufficient TR jet to estimate PA systolic pressure. MEASUREMENTS: 2D Parasternal Long [place] LVIDd7.2 cmIndex2.7 cm/m LA Ds5.3 cm LVIDs6.4 cmAo Rtd 3.5 cm Index1.3 cm/m LV%fs 10.7 % LV Vhgp496.5 g(122-174) IVSd 1 cmLVM Jloij464.6 g/m2 LVPWd1.3 cmRWT0.4 LA Sng Plane LA Area 33.6 cm2(8.8-23.4) LA Vol 145.1 ml Index54.4 ml/m LA LngAx 6.6 cm RA Sng Plane RA Area 26.4 cm2(8.3-19.5) RA Vol92.4 ml Index34.6 ml/m RA LngAx 6.5 cm Signed 05/10/2018 10:25 AM Arnaldo Shearer M.D. Procedure Note Interface, Radiology Results In - 05/10/2018 10:26 AM CDT Echocardiography Report [address] [place] [address] Pat.Name: SIVA WEST Pat.ID: [id number] .Date: 05/10/2018 Refer.MD: GABBY CAGLE MD Exam Time: 7:41:00 AM Study Type:Routine Echo Height: 75in Weight: 317lb BSA: 2.67 m2 Age: 7 1970,48Y Sex: MALE BP: 113/70 HR: 88 bpm Sonogrphr: CYDNEY Neff Pat. Stat.:Inpatient Room: [facility] Study Status:Final Echo Event ID:[id number] Order ID: [id number] Reason for Study:CHF History / Clinical:Chest Pain, Congestive Heart Failure Procedures:2D Echo, Colorflow Doppler Race: C SUMMARY: LV EF is severely depressed. Estimated EF is <20%. RV size is enlarged. RV systolic function is severely depressed. FINDINGS: LV: LV size is moderately enlarged. There is severe eccentric LV hypertrophy. LV EF is severely depressed. Global hypokinesis. Estimated EF is <20%. RV: RV size is enlarged. RV systolic function is severely depressed. LA: LA volume is severely enlarged. RA: RA volume is mildly enlarged. AO: Aortic root diameter is normal. NESSA: No pericardial effusion. AV: No structural AV abnormalities noted. MV: No structural MV abnormalities noted. PV: No structural PV abnormalities noted. A trace of pulmonic regurgitation. TV: No structural TV abnormalities noted. Hunter: LV relaxation is impaired. LV filling pressure is borderline elevated. Other: Insufficient TR jet to estimate PA systolic pressure. MEASUREMENTS: 2D Parasternal Long [place] LVIDd 7.2 cm Index 2.7 cm/m LA Ds 5.3 cm LVIDs 6.4 cm Ao Rtd 3.5 cm Index 1.3 cm/m LV%fs 10.7 % LV Mass 399.5 g (122-174) IVSd 1 cm LVM Index 149.6 g/m2 LVPWd 1.3 cm RWT 0.4 LA Sng Plane LA Area 33.6 cm2 (8.8-23.4) LA Vol 145.1 ml Index 54.4 ml/m LA LngAx 6.6 cm RA Sng Plane RA Area 26.4 cm2 (8.3-19.5) RA Vol 92.4 ml Index 34.6 ml/m RA LngAx 6.5 cm Signed 05/10/2018 10:25 AM Arnaldo Shearer M.D. Performing Organization Address City/State/Zipcode Phone Number [facility] [address] [place] [address] Aerobic culture (05/07/2018 8:10 AM CDT) Aerobic culture isolate Staphylococcus aureus [facility] DEPARTMENT OF Many PATHOLOGY AND GENOMIC This organism is Methicillin Sensitive. MEDICINE (A) Comment: Specimen Information Specimen Source: Wound Specimen Site: Leg Aerobic culture isolate Shewaricaa algae [facility] DEPARTMENT OF Moderate PATHOLOGY AND GENOMIC The performance characteristics of this assay on this isolate MEDICINE were validated by the Microbiology Laboratory at [facility].This source has not been approved by the U.S. Food and Drug Administration.The results are not intended to be used as the sole means for clinical diagnosis or patient management.The Microbiology Laboratory is authorized under the clinical Laboratory Improvement Amendments of 1988 (CLIA-88) to perform high complexity testing. (A) Specimen Wound - Leg Organism Antibiotic Method Susceptibility Staphylococcus aureus Clindamycin CHEPE <=0.5 mcg/mL: Susceptible Staphylococcus aureus Erythromycin CHEPE <=0.5 mcg/mL: Susceptible Staphylococcus aureus Levofloxacin CHEPE <=1 mcg/mL: Susceptible Staphylococcus aureus Linezolid CHEPE 2 mcg/mL: Susceptible Staphylococcus aureus Minocycline CHEPE <=1 mcg/mL: Susceptible Staphylococcus aureus Oxacillin CHEPE 0.5 mcg/mL: Susceptible Staphylococcus aureus Penicillin G CHEPE <=0.125 mcg/mL: Susceptible Staphylococcus aureus Rifampin CHEPE <=0.5 mcg/mL: Susceptible Staphylococcus aureus Trimethoprim/Sulfamethoxazo CHEPE <=0.5/9.5 mcg/mL: Susceptible le Staphylococcus aureus Tetracycline CHEPE <=0.5 mcg/mL: Susceptible Staphylococcus aureus Vancomycin CHEPE 1 mcg/mL: Susceptible Shewanella algae Amikacin CHEPE <=4 mcg/mL: Susceptible Shewanella algae Aztreonam CHEPE >16 mcg/mL: Resistant Shewanella algae Ceftazidime CHEPE 2 mcg/mL: Susceptible Shewanella algae Ceftriaxone CHEPE <=0.5 mcg/mL: Susceptible Shewanella algae Cefepime CHEPE <=0.5 mcg/mL: Susceptible Sheolamidenella algae Gentamicin CHEPE 2 mcg/mL: Susceptible Shewanella algae Imipenem CHEPE 0.5 mcg/mL: Susceptible Shemoralesa algae Levofloxacin CHEPE <=1 mcg/mL: Susceptible Shemoralesa algae Tobramycin CHEPE 2 mcg/mL: Susceptible Sheolamidenella algae Trimethoprim/Sulfamethoxazo CHEPE <=0.5/9.5 mcg/mL: Susceptible le Sheleonard algae Piperacillin/Tazobactam CHEPE <=2/4 mcg/mL: Susceptible Shemoralesa algae Ertapenem CHEPE mcg/mL: Resistant Performing Organization Address City/[facility] Center[facility] Phone Number [facility] DEPARTMENT OF PATHOLOGY AND [address] [place], [place] [phone] [employer] [facility]IC[facility] Gram stain (05/07/2018 8:10 AM CDT) Gram stain isolate Rare WBC's [facility] DEPARTMENT OF PATHOLOGY Many Gram positive cocci in pairs AND GENOMIC MEDICINE Comment: Specimen Information Specimen Source: Wound Specimen Site: Leg Specimen Wound - Leg Performing Organization Address City/[facility] Phone Number [facility] DEPARTMENT OF PATHOLOGY AND [address] [place] [address] [employer] [facility] CBC hemogram (05/07/2018 6:05 AM CDT) WBC 7.68 4.50 - 11.00 k/uL [facility] DEPARTMENT OF PATHOLOGY AND GENOMIC MEDICINE RBC 3.83 (L) 4.40 - 6.00 m/uL [facility] DEPARTMENT OF PATHOLOGY AND GENOMIC MEDICINE HGB 12.2 (L) 14.0 - 18.0 g/dL [facility] DEPARTMENT OF PATHOLOGY AND GENOMIC MEDICINE HCT 38.8 (L) 41.0 - 51.0 % [facility] DEPARTMENT OF PATHOLOGY AND GENOMIC MEDICINE MCV 101.3 (H) 82.0 - 100.0 fL [facility] DEPARTMENT OF PATHOLOGY AND GENOMIC MEDICINE MCH 31.9 27.0 - 34.0 pg [facility] DEPARTMENT OF PATHOLOGY AND GENOMIC MEDICINE MCHC 31.4 31.0 - 37.0 g/dL [facility] DEPARTMENT OF PATHOLOGY AND GENOMIC MEDICINE RDW - SD 52.0 37.0 - 55.0 fL [facility] DEPARTMENT OF PATHOLOGY AND GENOMIC MEDICINE MPV 10.5 8.8 - 13.2 fL [facility] DEPARTMENT OF PATHOLOGY AND GENOMIC MEDICINE Platelet count 255 150 - 400 k/uL [facility] DEPARTMENT OF PATHOLOGY AND GENOMIC MEDICINE Nucleated RBC 0.00 /100 WBC [facility] DEPARTMENT OF PATHOLOGY AND GENOMIC MEDICINE Performing Organization Address City/[facility]ode Phone Number [facility] DEPARTMENT OF PATHOLOGY AND [address] [place] [id number] [place] [address] B natriuretic peptide (05/07/2018 6:05 AM CDT)Only the most recent of4 resultswithin the time period is included. BNP 869 (H) 0 - 100 pg/mL [facility] DEPARTMENT OF PATHOLOGY AND GENOMIC MEDICINE Performing Organization Address [facility] Centercode Phone Number [facility] DEPARTMENT OF PATHOLOGY AND [address] [place] [address] GENOMIC [facility] Troponin (05/06/2018 7:12 PM CDT)Only the most recent of4 resultswithin the time period is included. Troponin <0.30 0.00 - 0.30 ng/mL [facility] DEPARTMENT OF PATHOLOGY Comment: AND GENOMIC MEDICINE 0.30 - 1.49 ng/mlMay indicate increased risk of acute coronary syndrome. >=1.5 ng/mlConsistent with acute myocardial infarction. The diagnostic value of a single normal or non-diagnostic result is questionable.Serial samples at 2-6 hour intervals are required to rule out acute myocardial injury. Specimen Plasma specimen Performing Organization Address [facility] Phone Number [facility] DEPARTMENT OF PATHOLOGY AND [address] [place], [place] [phone] [facility] XR Chest 1 Vw Portable (05/06/2018 5:14 PM CDT)Only the most recent of2 resultswithin the time period is included. Narrative Performed At EXAMINATION:XR CHEST 1 VW PORTABLE [facility] CLINICAL HISTORY:Cp COMPARISON:January 08, 2018 chest IMPRESSION: No acute abnormality single view chest The lungs are clear. The heart is not enlarged. The bony structures are within normal limits. [id number] Procedure Note Hm Interface, Radiology Results Incoming - 05/06/2018 5:19 PM CDT EXAMINATION: XR CHEST 1 VW PORTABLE CLINICAL HISTORY: Cp COMPARISON: January 08, 2018 chest IMPRESSION: No acute abnormality single view chest The lungs are clear. The heart is not enlarged. The bony structures are within normal limits. [id number] Performing Organization Address [facility]/Zipcode Phone Number [facility] [address] [place] [address] Digoxin level (01/16/2018 4:55 AM CDT) Digoxin <0.3 (L) 0.8 - 2.0 ng/mL [facility] DEPARTMENT OF PATHOLOGY Comment: AND [employer] [facility] For valid Digoxin results, at least 6 hours should elapse between time of last dose and collection of blood. Otherwise, result may be false high. Therapeutic Range: 0.8 - 2.0 ng/mL Specimen Plasma specimen Performing Organization Address City/State/Zipcode Phone Number [facility] DEPARTMENT OF PATHOLOGY AND [address] [place] [address] [employer] [facility] Echocardiogram complete w contrast and 3D if needed (01/11/2018 7:56 AM CDT) Narrative Performed At [facility] Echocardiography Report [address] [facility] [address], [place] [address] Pat.Name:SIVA WEST Pat.ID:[id number] .Date: 01/11/2018 Refer.MD:MENDOZA ÁLVAREZ MD Exam Time: 7:05:00 AMStudy Type:Routine Echo Height:75inWeight: 347lb BSA: 2.78 m2 DOBAge:1970,47Y Sex: MALEBP:134/76 HR:116 bpm Sonogrphr: CYDNEY Menendez Pat. Stat.:Inpatient Room:A743 Study Status:Final Echo Event ID:[id number] Order ID:[id number] Reason for Study:HF with no status change -routine (<1yr) History / Clinical:Chest Pain, Congestive Heart Failure Procedures:2D Echo, Colorflow Doppler, Intravenous Definity Contrast Race:C SUMMARY: Severe biventricular failure. LV and RV size are severely enlarged. Estimated EF is 20-24%. LA volume is severely enlarged. Unable to assess diastolic function due to tachycardia. Insufficient TR jet to estimate PA systolic pressure. FINDINGS: LV: LV size is severely enlarged. LV EF is severely depressed. Globalhypokinesis. Estimated EF is 20-24%. RV: RV size is severely enlarged. RV systolic function is severelydepressed. LA: LA volume is severely enlarged. RA: RA volume is mild to moderately enlarged. AO: Aortic root diameter is normal. NESSA: No pericardial effusion. AV: No structural AV abnormalities noted. MV: No structural MV abnormalities noted. PV: Pulmonic valve not well seen. TV: No structural TV abnormalities noted. Hunter: Unable to assess diastolic function due to tachycardia. Other:Insufficient TR jet to estimate PA systolic pressure. MEASUREMENTS: 2D Parasternal Long [place] LVOT 2.8 cmLV%fs4 % LA Ds5 cmIVSd 1 cm Ao An3.4 cmLVPWd0.7 cm Ao Rtd 3.2 cmIndex1.1 cm/m LV Negt049.2 g(122-174) LVIDd8.1 cmIndex2.9 cm/m LVM Gmyyl831.9 g/m2 LVIDs7.8 cmRWT0.2 LA Sng Plane LA Area 37.3 cm2(8.8-23.4) LA Vol 151.1 ml Index54.4 ml/m LA LngAx 7.4 cm RA Sng Plane RA Area 27.6 cm2(8.3-19.5) RA Vol 102.1 ml Index36.7 ml/m RA LngAx 6.3 cm DOPPLER LVOT For Flow LVOT Area6.2 cm2 LVOT SV 66.6 ml LVOTpkVel 85.6 cm/sHR 105.5 bpm LVOTpkPG 2.9 mmHgLVOT CO7 l/min LVOTmnPG 1.6 mmHgLVOT CI2.5 l/m/m2 LVOT TVI10.8 cm Signed 01/11/2018 11:30 AM Telly Byrne M.D. Procedure Note Interface, Radiology Results In - 01/11/2018 11:30 AM CDT Echocardiography Report [address] [address] Pat.Name: SIVA WEST.ID: [id number] .Date: 01/11/2018 Refer.MD: MENDOZA ÁLVAREZ MD Exam Time: 7:05:00 AM Study Type:Routine Echo Height: 75in Weight: 347lb BSA: 2.78 m2 Age: 7 1970,47Y Sex: MALE BP: 134/76 HR: 116 bpm Sonogrphr: CYDNEY Menendez Pat. Stat.:Inpatient Room: A743 Study Status:Final Echo Event ID:[id number] Order ID: [id number] Reason for Study:HF with no status change -routine (<1yr) History / Clinical:Chest Pain, Congestive Heart Failure Procedures:2D Echo, Colorflow Doppler, Intravenous Definity Contrast Race: C SUMMARY: Severe biventricular failure. LV and RV size are severely enlarged. Estimated EF is 20-24%. LA volume is severely enlarged. Unable to assess diastolic function due to tachycardia. Insufficient TR jet to estimate PA systolic pressure. FINDINGS: LV: LV size is severely enlarged. LV EF is severely depressed. Global hypokinesis. Estimated EF is 20-24%. RV: RV size is severely enlarged. RV systolic function is severely depressed. LA: LA volume is severely enlarged. RA: RA volume is mild to moderately enlarged. AO: Aortic root diameter is normal. NESSA: No pericardial effusion. AV: No structural AV abnormalities noted. MV: No structural MV abnormalities noted. PV: Pulmonic valve not well seen. TV: No structural TV abnormalities noted. Hunter: Unable to assess diastolic function due to tachycardia. Other: Insufficient TR jet to estimate PA systolic pressure. MEASUREMENTS: 2D Parasternal Long [place] LVOT 2.8 cm LV%fs 4 % LA Ds 5 cm IVSd 1 cm Ao An 3.4 cm LVPWd 0.7 cm Ao Rtd 3.2 cm Index 1.1 cm/m LV Mass 347.2 g (122-174) LVIDd 8.1 cm Index 2.9 cm/m LVM Index 124.9 g/m2 LVIDs 7.8 cm RWT 0.2 LA Sng Plane LA Area 37.3 cm2 (8.8-23.4) LA Vol 151.1 ml Index 54.4 ml/m LA LngAx 7.4 cm RA Sng Plane RA Area 27.6 cm2 (8.3-19.5) RA Vol 102.1 ml Index 36.7 ml/m RA LngAx 6.3 cm DOPPLER LVOT For Flow LVOT Area 6.2 cm2 LVOT SV 66.6 ml LVOTpkVel 85.6 cm/s HR 105.5 bpm LVOTpkPG 2.9 mmHg LVOT CO 7 l/min LVOTmnPG 1.6 mmHg LVOT CI 2.5 l/m/m2 LVOT TVI 10.8 cm Signed 01/11/2018 11:30 AM Telly Byrne M.D. Performing Organization Address City/State/Zipcode Phone Number [facility] [phone] [place] [address] Manual differential (01/10/2018 4:23 AM CDT)Only the most recent of3 resultswithin the time period is included. Manual differential PERFORMED [facility] DEPARTMENT OF PATHOLOGY AND GENOMIC MEDICINE Neutrophils 49.0 39.0 - 69.0 % [facility] DEPARTMENT OF PATHOLOGY AND GENOMIC MEDICINE Lymphocytes 41.0 25.0 - 45.0 % [facility] DEPARTMENT OF PATHOLOGY AND GENOMIC MEDICINE Monocytes 5.0 0.0 - 10.0 % [facility] DEPARTMENT OF PATHOLOGY AND GENOMIC MEDICINE Eosinophils 4.0 0.0 - 5.0 % [facility] DEPARTMENT OF PATHOLOGY AND GENOMIC MEDICINE Basophils 1.0 0.0 - 1.0 % [facility] DEPARTMENT OF PATHOLOGY AND GENOMIC MEDICINE Metamyelocytes 0 % [facility] DEPARTMENT OF PATHOLOGY AND GENOMIC MEDICINE Promyelocytes 0 % [facility] DEPARTMENT OF PATHOLOGY AND GENOMIC MEDICINE Platelet slide review [place] adequate [facility] DEPARTMENT OF PATHOLOGY AND GENOMIC MEDICINE Anisocytosis Moderate [facility] DEPARTMENT OF PATHOLOGY AND GENOMIC MEDICINE Polychromasia Moderate [facility] DEPARTMENT OF PATHOLOGY AND GENOMIC MEDICINE Ovalocytes Moderate [facility] DEPARTMENT OF PATHOLOGY AND GENOMIC MEDICINE Performing Organization Address City/State/Zipcode Phone Number [facility] DEPARTMENT OF PATHOLOGY AND [address] [place] [id number] [facility] Urinalysis screen and microscopy, with reflex to culture (01/09/2018 4:00 AM CDT) Specimen site Clean catch [facility] DEPARTMENT OF PATHOLOGY AND GENOMIC MEDICINE Color, UA Yellow [facility] DEPARTMENT OF PATHOLOGY AND GENOMIC MEDICINE Appearance, UA Clear [facility] DEPARTMENT OF PATHOLOGY AND GENOMIC MEDICINE Specific gravity, UA 1.012 1.001 - 1.035 [facility] DEPARTMENT OF PATHOLOGY AND GENOMIC MEDICINE pH, UA 5.0 5.0 - 8.5 [facility] DEPARTMENT OF PATHOLOGY AND GENOMIC MEDICINE Protein, UA Negative Negative [facility] DEPARTMENT OF PATHOLOGY AND GENOMIC MEDICINE Glucose, UA Negative Negative [facility] DEPARTMENT OF PATHOLOGY AND GENOMIC MEDICINE Ketones, UA Negative Negative [facility] DEPARTMENT OF PATHOLOGY AND GENOMIC MEDICINE Bilirubin, UA Negative Negative [facility] DEPARTMENT OF PATHOLOGY AND GENOMIC MEDICINE Blood, UA Negative Negative [facility] DEPARTMENT OF PATHOLOGY AND GENOMIC MEDICINE Nitrite, UA Negative Negative [facility] DEPARTMENT OF PATHOLOGY AND GENOMIC MEDICINE Urobilinogen, UA 4.0 (A) <2.0 [facility] DEPARTMENT OF PATHOLOGY AND GENOMIC MEDICINE Leukocyte esterase, UA Negative Negative [facility] DEPARTMENT OF PATHOLOGY AND GENOMIC MEDICINE WBC, UA <1 0 - 1 /HPF [facility] DEPARTMENT OF PATHOLOGY AND GENOMIC MEDICINE RBC, UA None seen 0 - 5 /HPF [facility] DEPARTMENT OF PATHOLOGY AND GENOMIC MEDICINE Bacteria, UA None seen None seen [facility] DEPARTMENT OF PATHOLOGY AND GENOMIC MEDICINE Yeast, UA None seen [facility] DEPARTMENT OF PATHOLOGY AND GENOMIC MEDICINE Yeast with pseudohyphae, UA None seen [facility] DEPARTMENT OF PATHOLOGY AND GENOMIC MEDICINE Hyaline casts, UA >20 (A) /LPF [facility] DEPARTMENT OF PATHOLOGY AND GENOMIC MEDICINE Specimen Urine Performing Organization Address [facility] Phone Number [facility] DEPARTMENT OF PATHOLOGY AND [address] [place] [phone] GENOMIC MEDICINE Urine culture (01/09/2018 4:00 AM CDT) Urine culture SEE COMMENTComment: Bacteriuria [facility] DEPARTMENT OF PATHOLOGY screen negative. AND GENOMIC MEDICINE Performing Organization Address [facility] Cent[facility] Phone Number [facility] DEPARTMENT OF PATHOLOGY AND [address] [place] [address] MEDICINE Thyroid stimulating hormone (01/09/2018 3:00 AM CDT) TSH 10.05 (H) 0.27 - 4.20 uIU/mL [facility] DEPARTMENT OF PATHOLOGY AND GENOMIC MEDICINE Specimen Plasma specimen Performing Organization Address [facility] Centercode Phone Number [facility] DEPARTMENT OF PATHOLOGY AND [address] [place] [address] T4, free (01/09/2018 3:00 AM CDT) T4, free 0.8 (L) 0.9 - 1.7 ng/dL [facility] DEPARTMENT OF PATHOLOGY AND GENOMIC MEDICINE Specimen Plasma specimen Performing Organization Address [facility] Center[facility]m Phone Number [facility] DEPARTMENT OF PATHOLOGY AND [address] [place] [address] GENOMIC MEDICINE Lipid panel (01/09/2018 3:00 AM CDT) Cholesterol 86 <200 mg/dL [facility] DEPARTMENT OF PATHOLOGY AND GENOMIC MEDICINE Triglycerides 156 (H) <150 mg/dL [facility] DEPARTMENT OF PATHOLOGY AND GENOMIC MEDICINE HDL cholesterol 19 (L) >40 mg/dL [facility] DEPARTMENT OF PATHOLOGY AND GENOMIC MEDICINE LDL cholesterol 49Comment: Result <100 mg/dL [facility] DEPARTMENT OF obtained by direct LDL PATHOLOGY AND GENOMIC measurement MEDICINE Lipid panel interpretation SeeBelow [facility] DEPARTMENT OF Comment: PATHOLOGY AND GENOMIC Total Cholesterol (mg/dL) MEDICINE <200 Desirable 027-820Cmnfloekfp-cqit >=240High Triglycerides (mg/dL) <150 Normal 324-551Dauzvnouxz-fjww 200-499High >=500Very high HDL Cholesterol (mg/dL) <40Low (male) <40Low (female) LDL Cholesterol (mg/dL) <100 Optimal 100-129Near or above optimal 749-228Lfqhsxufql-cphm 160-189High >=190Very high Risk Catergories that modify LDL goals. Risk CatergoriesLDL goal (mg/dL) CHD and CHD risk equivalent<100 (10-year risk >20%) Multiple (2+) risk factors <130 (10-year risk=<20%) 0-1 risk factors <160 (<10-year risk) Defining levels of lipids in metabolic syndrome Triglycerides>=150 mg/dL HDL Cholesterol Men<40 mg/dL Women<40 mg/dL Non-HDL cholesterol is a second target for therapy in persons with high triglycerides (>=200 mg/dL) Specimen Plasma specimen Performing Organization Address [facility] Centercode Phone Number [facility] DEPARTMENT OF PATHOLOGY AND [address] [place] [address] Partial thromboplastin time, activated (01/08/2018 8:15 PM CDT) PTT 32.1 23.0 - 36.0 sec [facility] DEPARTMENT OF PATHOLOGY Comment: AND [employer] MEDICINE PTT therapeutic range for unfractionated heparin is 61.0-112.0 seconds which corresponds to Anti-Xa 0.3-0.7 U/ml. Specimen Blood Performing Organization Address [facility] Centercon[facility] Phone Number [facility] DEPARTMENT OF PATHOLOGY AND [address] [place] [phone] [facility] Prothrombin time with INR (01/08/2018 8:15 PM CDT) Prothrombin time 15.6 (H) 12.0 - 15.0 sec [facility] DEPARTMENT OF PATHOLOGY AND [employer] [facility] INR 1.2 [facility] DEPARTMENT OF Comment: PATHOLOGY AND GENOMIC The International Normalized Ratio (INR) is a therapeutic MEDICINE monitoring tool for patients who are stable on oral anticoagulant therapy. An INR of 2.0-3.0 is suggested for deep vein thrombosis/pulmonary embolism. Specimen Blood Performing Organization Address [facility] Centercode Phone Number [facility] DEPARTMENT OF PATHOLOGY AND [address] [place] [phone] GENOMIC [facility] ECG ED Preliminary Interpretation - NOT AN ORDER (01/08/2018 7:52 PM CDT) Narrative Performed At Gissell Ramirez MD 01/09/20186:37 PM ECG ED Preliminary Interpretation - Not an Order Performed by: GISSELL RAMIREZ Authorized by: GISSELL RAMIREZ ECG reviewed by ED Physician in the absence of a microscopist: yes Interpretation: Interpretation: abnormal Rate: ECG rate:106 ECG rate assessment: tachycardic Rhythm: Rhythm: sinus tachycardia Ectopy: Ectopy: none QRS: QRS axis:Normal QRS intervals:Normal Conduction: Conduction: normal ST segments: ST segments:Normal T waves: T waves: normal Comprehensive metabolic panel (01/08/2018 7:52 PM CDT) Sodium 131 (L) 135 - 148 mEq/L [facility] DEPARTMENT OF PATHOLOGY AND GENOMIC MEDICINE Potassium 4.5 3.5 - 5.0 mEq/L [facility] DEPARTMENT OF PATHOLOGY AND GENOMIC MEDICINE Chloride 90 (L) 98 - 112 mEq/L [facility] DEPARTMENT OF PATHOLOGY AND GENOMIC MEDICINE CO2 25 24 - 31 mEq/L [facility] DEPARTMENT OF PATHOLOGY AND GENOMIC MEDICINE Anion gap 16 (H) 7 - 15 mEq/L [facility] DEPARTMENT OF Comment: PATHOLOGY AND GENOMIC Starting from January , anion gap calculation MEDICINE no longer incorporates potassium. Please note the change. BUN 19 6 - 20 mg/dL [facility] DEPARTMENT OF PATHOLOGY AND GENOMIC MEDICINE Creatinine 1.2 0.7 - 1.2 mg/dL [facility] DEPARTMENT OF PATHOLOGY AND GENOMIC MEDICINE Glucose 112 (H) 65 - 99 mg/dL [facility] DEPARTMENT OF PATHOLOGY AND GENOMIC MEDICINE Calcium 8.9 8.3 - 10.2 mg/dL [facility] DEPARTMENT OF PATHOLOGY AND GENOMIC MEDICINE Protein 7.2 6.3 - 8.3 g/dL [facility] DEPARTMENT OF Comment: PATHOLOGY AND GENOMIC [place] 4.6-7.0 g/dL MEDICINE 1 week 4.4-7.6 g/dL 7 months-1year5.1-7.3 g/dL 1-2 years5.6-7.5 g/dL >3 years6.0-8.0 g/dL 18-150 6.3-8.3 g/dL Albumin 3.1 (L) 3.5 - 5.0 g/dL [facility] DEPARTMENT OF PATHOLOGY AND GENOMIC MEDICINE A/G ratio 0.8 0.7 - 3.8 [facility] DEPARTMENT OF PATHOLOGY AND GENOMIC MEDICINE Alkaline phosphatase 153 (H) 40 - 129 U/L [facility] DEPARTMENT OF PATHOLOGY AND GENOMIC MEDICINE AST 67 (H) 10 - 50 U/L [facility] DEPARTMENT OF PATHOLOGY AND GENOMIC MEDICINE ALT 66 (H) 5 - 50 U/L [facility] DEPARTMENT OF PATHOLOGY AND GENOMIC MEDICINE Total bilirubin 0.8 0.0 - 1.2 mg/dL [facility] DEPARTMENT OF PATHOLOGY AND GENOMIC MEDICINE Specimen Plasma specimen Performing Organization Address City/State/Zipcode Phone Number [facility] DEPARTMENT OF PATHOLOGY AND [address] [place] [address] GENOMIC MEDICINE after 10/22/2017 Insurance Payer Benefit Plan / Group Subscriber ID Type Phone Address [employer]ONATHON [employer] xxxxxxxxx HMO Advance Directives Patient has advance care planning documents, and code status on file. For more information, please contact:Gal [address] [place] [address] Code Status Date Activated Date Inactivated Comments Full Code 01/08/2018 11:19 PM 01/18/2018 5:19 PM Code Status decision reached by: Patient Full Code 05/22/2016 12:13 PM 05/26/2016 3:59 PM Code Status decision reached by: Patient
[2018-10-23] MEDS ORDERED: NA CHLORIDE 0.9% 4,000 ML ONE (02:00)
[2018-10-23] MEDS ORDERED: NA CHLORIDE 0.9% 500 ML ONE (02:00)
[2018-10-23 02:37] LABS: Absolute Lymphocytes (CBC) 1.4 K/uL (0.7-4.9); Absolute Monocytes 0.4 K/uL (0.1-1.3); Absolute Neutrophil 5.9 K/uL (1.8-8.0); Basophils % 0.7 % (0-1.3); Eosinophils % 0.8 % (0-4.4); Hematocrit 36.1 % (39.6-49.0); Lymphocytes % 18.2 % (15.3-44.8); MPV 8.3 fL (7.6-11.3); Monocytes % 4.8 % (3.3-12.3); RBC Red Blood Cell Count 3.78 M/uL (4.33-5.43)
[2018-10-23 02:58] LABS: Albumin 2.9 g/dL (3.4-5.0); Bilirubin Total 1.5 mg/dL (0.2-1.0); Potassium 3.5 mmol/L (3.5-5.1); Troponin (Emerg Dept Use Only) 0.08 ng/mL (0.0-0.045)
[2018-10-23] MEDS ORDERED: KETOROLAC 30 MG/ML INJ ONE (02:59)
[2018-10-23] MEDS ORDERED: ONDANSETRON 4 MG/2 ML VIAL ONE (03:00)
[2018-10-23] MEDS ORDERED: ONDANSETRON 4 MG/2 ML VIAL IV PRN (03:22)
[2018-10-23] MEDS ORDERED: ACETAMINOPHEN 500 MG TAB PO PRN (03:22)
--- NOTE | 2018-10-23 03:22 | ER ---
Nurse's Notes [facility] Name: Siva West Age: 48 yrs Sex: Male : 1970 Arrival Date: 10/23/2018 Time: 00:48 Bed 16 Private MD: Diagnosis: Chest pain;Cough;Elevated Troponin;RLL pneumonia Presentation: 10/23 00:35 Presenting complaint: EMS states: cough with chest discomfort, congestion and having cc3 green secretions. Transition of care: patient was not received from another setting of care. Onset of symptoms was October 23, 2018. Risk Assessment: Do you want to hurt yourself or someone else? Patient reports no desire to harm self or others. Initial Sepsis Screen: Does the patient meet any 2 criteria? No. Patient's initial sepsis screen is negative. Does the patient have a suspected source of infection? No. Patient's initial sepsis screen is negative. Care prior to arrival: None. 00:35 Method Of Arrival: EMS: [facility] cc3 00:35 Acuity: EFRAIN 3 cc3 Triage Assessment: 00:35 General: Appears in no apparent distress. uncomfortable, Behavior is calm, cooperative, cc3 appropriate for age. Pain: Complains of pain in chest Pain currently is 7 out of 10 on a pain scale. Quality of pain is described as heavy. EENT: No signs and/or symptoms were reported regarding the EENT system. Neuro: Level of Consciousness is awake, alert, obeys commands, Oriented to person, place, time, situation, Appropriate for age. Cardiovascular: Reports chest pain, Patient's skin is warm and dry. Respiratory: Airway is patent Respiratory effort is even, unlabored, Respiratory pattern is regular, symmetrical. GI: Abdomen is round obese. : No signs and/or symptoms were reported regarding the genitourinary system. Derm: generalized wound sores all over his body. Musculoskeletal: Circulation, motion, and sensation intact. Range of motion: intact in all extremities. Historical: - Allergies: 00:35 No Known Allergies; cc3 - Home Meds: 00:35 aspirin 81 mg Oral chew 1 tab once daily [Active]; atorvastatin 40 mg oral tab 1 tab cc3 once daily [Active]; codeine-guaifenesin 10-100 mg/5 mL Oral liqd 10 mL every 6 hours [Active]; furosemide 80 mg Oral tab 1 tab 2 times per day [Active]; potassium chloride 20 mEq Oral TbER 2 tab once daily [Active]; lisinopril 20 mg Oral tab 1 tab once daily [Active]; metolazone 5 mg oral tab 1 tab once daily [Active]; metoprolol tartrate 25 mg Oral tab 1 tab once daily [Active]; Clayton 10-325 mg Oral tab 1 tab [Active]; pantoprazole 40 mg oral TbEC 1 tab once daily [Active]; spironolactone 25 mg Oral tab 1 tab once daily [Active]; - PMHx: 00:35 Hypertension; CHF; Atrial Fib; cc3 - PSHx: 00:35 pacemaker; defibrillator; cc3 - Immunization history:: Adult Immunizations up to date. - Social history:: Smoking status: Patient/guardian denies using tobacco, never smoked. - Ebola Screening: : No symptoms or risks identified at this time. Screenin:35 Abuse screen: Denies threats or abuse. Denies injuries from another. Nutritional cc3 screening: No deficits noted. Tuberculosis screening: No symptoms or risk factors identified. Fall Risk Ambulatory Aid- None/Bed Rest/Nurse Assist (0 pts). Gait- Normal/Bed Rest/Wheelchair (0 pts) Mental Status- Oriented to own ability (0 pts). Assessment: 00:35 General: see triage assessment. cc3 00:35 Cardiovascular: Rhythm is ventricular pacer. cc3 01:20 Reassessment: Patient appears in no apparent distress at this time. Patient and/or cc3 family updated on plan of care and expected duration. Pain level reassessed. Patient is alert, oriented x 3, equal unlabored respirations, skin warm/dry/pink. 02:15 Reassessment: Patient appears in no apparent distress at this time. Patient and/or cc3 family updated on plan of care and expected duration. Pain level reassessed. Patient is alert, oriented x 3, equal unlabored respirations, skin warm/dry/pink. 03:20 Reassessment: Patient appears in no apparent distress at this time. Patient and/or cc3 family updated on plan of care and expected duration. Pain level reassessed. Patient is alert, oriented x 3, equal unlabored respirations, skin warm/dry/pink. Dr. Rosa ordered to discontinue the IV fluid protocol of 30mL/kg and ordered to regulate remaining IV fluid at 100 mL/hr instead. 04:03 Reassessment: Patient and/or family updated on plan of care and expected duration. Pain ea level reassessed. Patient is alert, oriented x 3, equal unlabored respirations, skin warm/dry/pink. Report called to Brenda WIN. 04:30 Reassessment: Patient left ER vitally stable by wheelchair escorted by hvac field service technician Jt. cc3 Vital Signs: 00:35 BP 155 / 135; Pulse 100; Resp 20 S; Temp 97.5(O); Pulse Ox 100% on R/A; Weight 151.95 cc3 kg (R); Height 6 ft. 3 in. (190.50 cm) (R); Pain 7/10; 01:30 BP 153 / 117; Pulse 93; Resp 20; Pulse Ox 99% ; ea 02:40 BP 133 / 115; Pulse 91; Resp 20; Pulse Ox 95% on R/A; ea 03:57 BP 150 / 96; Pulse 96; Resp 20; Pulse Ox 98% on R/A; ea 00:35 Body Mass Index 41.87 (151.95 kg, 190.50 cm) cc3 ED Course: 00:35 Arm band placed on right wrist. Patient notified of wait time. cc3 00:35 Patient has correct armband on for positive identification. Bed in low position. Call cc3 light in reach. Side rails up X 1. flight operations specialist on. Pulse ox on. NIBP on. 00:48 Patient arrived in ED. ds1 00:54 Ines De La O is Primary Nurse. cc3 00:57 Triage completed. cc3 01:14 Suresh Rosa MD is Attending Physician. ps1 01:54 X-ray completed. Portable x-ray completed in exam room. Patient tolerated procedure sg4 well. 02:15 Inserted saline lock: 20 gauge in left antecubital area, using aseptic technique. Blood cc3 collected. 03:21 Sue Armas MD is Hospitalizing Provider. ps1 04:03 No provider procedures requiring assistance completed. Patient admitted, IV remains in ea place. Administered Medications: 02:20 Drug: NS 0.9% (30 ml/kg) 30 ml/kg Route: IV; Rate: bolus; Site: left antecubital; cc3 03:23 Follow up: Response: No adverse reaction; IV Status: Order to discontinue infusion; Dr. catie Rosa ordered to discontinue the IVF 30 mL/kg protocol then to regulate IV fluid at 100 mL/hr 02:57 Drug: TORadol 30 mg Route: IVP; Site: left antecubital; ea 03:49 Follow up: Response: No adverse reaction; Pain is decreased cc3 02:57 Drug: Zofran 4 mg Route: IVP; Site: left antecubital; ea 03:50 Follow up: Response: No adverse reaction cc3 03:25 Drug: morphine 4 mg Route: IVP; Site: left antecubital; cc3 03:50 Follow up: Response: No adverse reaction; Pain is decreased cc3 03:29 Drug: SOLU-Medrol 125 mg Route: IVP; Site: left antecubital; cc3 03:50 Follow up: Response: No adverse reaction cc3 03:35 Drug: Rocephin - (cefTRIAXone) 1 grams Route: IVPB; Infused Over: 30 mins; Site: left ea antecubital; 03:50 Follow up: Response: No adverse reaction; IV Status: Completed infusion cc3 03:40 CANCELLED (Other Intervention Used): AZITHromycin 500 mg IVPB once over 1 hrs; (mix in ea 250 mL NS) 03:40 Drug: LevaQUIN 750 mg Volume: 150 ml; Route: IVPB; Infused Over: 90 mins; Site: left ea antecubital; 03:51 Follow up: IV Status: Infusion continued upon admission cc3 Point of Care Testing: Blood Glucose: 02:18 Blood Glucose: 132 mg/dL; ar5 Ranges: Intake: Outcome: 03:22 Decision to Hospitalize by Provider. ps1 04:04 Admitted to Med/surg accompanied by tech, via wheelchair, room 409, Report called to dinesh Gutierrez RN 04:04 Condition: stable 04:04 Instructed on the need for admit. 04:30 Patient left the ED. cc3 Signatures: Joi Faust Elena RN Suresh Sánchez ea, MD MD ps1 Ines De La O cc3 Kendy Hyde sg4 Alley Bro ar5
--- NOTE | 2018-10-23 03:23 | EDPHYS ---
Physician Documentation [facility] Name: Siva West Age: 48 yrs Sex: Male : 1970 Arrival Date: 10/23/2018 Time: 00:48 Bed 16 Private MD: ED Physician Suresh Rosa Historical: - Allergies: 10/23 00:35 No Known Allergies; cc3 - Home Meds: 00:35 aspirin 81 mg Oral chew 1 tab once daily [Active]; atorvastatin 40 mg oral tab 1 tab cc3 once daily [Active]; codeine-guaifenesin 10-100 mg/5 mL Oral liqd 10 mL every 6 hours [Active]; furosemide 80 mg Oral tab 1 tab 2 times per day [Active]; potassium chloride 20 mEq Oral TbER 2 tab once daily [Active]; lisinopril 20 mg Oral tab 1 tab once daily [Active]; metolazone 5 mg oral tab 1 tab once daily [Active]; metoprolol tartrate 25 mg Oral tab 1 tab once daily [Active]; [place] 10-325 mg Oral tab 1 tab [Active]; pantoprazole 40 mg oral TbEC 1 tab once daily [Active]; spironolactone 25 mg Oral tab 1 tab once daily [Active]; - PMHx: 00:35 Hypertension; CHF; Atrial Fib; cc3 - PSHx: 00:35 pacemaker; defibrillator; cc3 - Immunization history:: Adult Immunizations up to date. - Social history:: Smoking status: Patient/guardian denies using tobacco, never smoked. - Ebola Screening: : No symptoms or risks identified at this time. Vital Signs: 00:35 BP 155 / 135; Pulse 100; Resp 20 S; Temp 97.5(O); Pulse Ox 100% on R/A; Weight 151.95 cc3 kg (R); Height 6 ft. 3 in. (190.50 cm) (R); Pain 7/10; 01:30 BP 153 / 117; Pulse 93; Resp 20; Pulse Ox 99% ; ea 02:40 BP 133 / 115; Pulse 91; Resp 20; Pulse Ox 95% on R/A; ea 03:57 BP 150 / 96; Pulse 96; Resp 20; Pulse Ox 98% on R/A; ea 00:35 Body Mass Index 41.87 (151.95 kg, 190.50 cm) cc3 MDM: 01:15 Patient medically screened. ps1 10/23 01:43 Order name: Troponin (emerg Dept Use Only) ps1 10/23 01:43 Order name: Blood Culture Adult (2) ps1 10/23 01:43 Order name: CBC with Diff ps1 10/23 01:43 Order name: Lactate ps1 10/23 01:43 Order name: Procalcitonin ps1 10/23 01:43 Order name: Urine Microscopic Only ps1 10/23 01:43 Order name: Chest Single View XRAY ps1 10/23 01:43 Order name: CMP ps1 10/23 02:44 Order name: CBC with Automated Diff; Complete Time: 02:45 EDMS 10/23 02:58 Order name: Comprehensive Metabolic Panel; Complete Time: 03:00 EDMS 10/23 02:58 Order name: Troponin (Emerg Dept Use Only); Complete Time: 03:00 EDMS 10/23 03:40 Order name: Lactate EDMS 10/23 03:42 Order name: Procalcitonin EDMS 10/23 04:24 Order name: Urine Dipstick--Ancillary (enter results) 10/23 01:43 Order name: Accucheck; Complete Time: 02:39 ps1 10/23 01:43 Order name: Cardiac monitoring; Complete Time: 02:36 ps1 10/23 01:43 Order name: EKG - Nurse/Tech; Complete Time: 01:45 ps1 10/23 01:43 Order name: IV Saline Lock - Large Bore; Complete Time: 02:36 ps1 10/23 01:43 Order name: Labs collected and sent; Complete Time: 02:36 ps1 10/23 01:43 Order name: O2 Per Protocol; Complete Time: 01:45 ps1 10/23 01:43 Order name: O2 Sat Monitoring; Complete Time: 01:46 ps1 10/23 01:43 Order name: Urine Dipstick-Ancillary (obtain specimen); Complete Time: 04:25 ps1 Administered Medications: 02:20 Drug: NS 0.9% (30 ml/kg) 30 ml/kg Route: IV; Rate: bolus; Site: left antecubital; cc3 03:23 Follow up: Response: No adverse reaction; IV Status: Order to discontinue infusion; cc3 ordered to discontinue the IVF 30 mL/kg protocol then to regulate IV fluid at 100 mL/hr 02:57 Drug: TORadol 30 mg Route: IVP; Site: left antecubital; ea 03:49 Follow up: Response: No adverse reaction; Pain is decreased cc3 02:57 Drug: Zofran 4 mg Route: IVP; Site: left antecubital; ea 03:50 Follow up: Response: No adverse reaction cc3 03:25 Drug: morphine 4 mg Route: IVP; Site: left antecubital; cc3 03:50 Follow up: Response: No adverse reaction; Pain is decreased cc3 03:29 Drug: SOLU-Medrol 125 mg Route: IVP; Site: left antecubital; cc3 03:50 Follow up: Response: No adverse reaction cc3 03:35 Drug: Rocephin - (cefTRIAXone) 1 grams Route: IVPB; Infused Over: 30 mins; Site: left ea antecubital; 03:50 Follow up: Response: No adverse reaction; IV Status: Completed infusion cc3 03:40 CANCELLED (Other Intervention Used): AZITHromycin 500 mg IVPB once over 1 hrs; (mix in ea 250 mL NS) 03:40 Drug: LevaQUIN 750 mg Volume: 150 ml; Route: IVPB; Infused Over: 90 mins; Site: left ea antecubital; 03:51 Follow up: IV Status: Infusion continued upon admission cc3 Point of Care Testing: Blood Glucose: 02:18 Blood Glucose: 132 mg/dL; ar5 Ranges: Critical Glucose Levels:Adult <50 mg/dl or >400 mg/dl <40 mg/dl or >180 mg/dl Disposition: 10/23/18 03:22 Hospitalization ordered by Sue Armas for Observation. Preliminary diagnosis are Chest pain, Cough, Elevated Troponin, RLL pneumonia. - Bed requested for Telemetry/MedSurg (observation). - Status is Observation. cc3 - Condition is Stable. - Problem is new. - Symptoms are unchanged. UTI on Admission? No Signatures: Dispatcher [employer] Anastasiia Quintanilla RN Leena Huang RN RN ea Singer, Phillip, MD MD ps1 Cordel, Charlene cc3 Corrections: (The following items were deleted from the chart) 03:29 03:22 Hospitalization Ordered by Sue Armas MD for Observation. Preliminary mw diagnosis is Chest pain; Cough; Elevated Troponin; RLL pneumonia. Bed requested for Telemetry/MedSurg (observation). Status is Observation. Condition is Stable. Problem is new. Symptoms are unchanged. UTI on Admission? No. ps1 03:40 03:15 AZITHromycin 500 mg IVPB once over 1 hrs; (mix in 250 mL NS) ordered. ps1 ea 04:30 03:29 10/23/2018 03:22 Hospitalization Ordered by Sue Armas MD for Observation. cc3 Preliminary diagnosis is Chest pain; Cough; Elevated Troponin; RLL pneumonia. Bed requested for Telemetry/MedSurg (observation). Status is Observation. Condition is Stable. Problem is new. Symptoms are unchanged. UTI on Admission? No. mw
[2018-10-23] MEDS ORDERED: METHYLPREDNISOLONE 125 MG INJ ONE (03:33)
[2018-10-23] MEDS ORDERED: CEFTRIAXONE/SWI 1gm 1 GM/10 ML SYR ONE (03:34)
[2018-10-23] MEDS ORDERED: MORPHINE 4 MG/ML SYR ONE ×2 (03:34→05:45)
[2018-10-23] MEDS ORDERED: Levofloxacin 750mg IV 750 MG/150 ML BAG IV ONE (03:39)
[2018-10-23] MEDS ORDERED: PIPER/TAZO/NS 3.375gm 3.375 GM/100 ML BAG IVPB SCH (04:15)
[2018-10-23 04:49] VITALS: BMI 43.0
[2018-10-23] MEDS ORDERED: MORPHINE 2 MG/ML SYR IV PRN (05:03)
[2018-10-23 06:09] LABS: Urine Bacteria <20 /HPF (NONE SEEN)
[2018-10-23 06:10] LABS: Urine Culture Reflex Order NOT NEEDED; Urine RBC <5 /HPF (NONE SEEN)
[2018-10-23 06:11] LABS: Urine Blood NEGATIVE (NEG); Urine Glucose NEGATIVE (NEG); Urine Protein 2+ (NEG)
[2018-10-23] MEDS ORDERED: METOPROLOL TAR 25 MG TAB PO ONE (07:20)
[2018-10-23] MEDS ORDERED: ALBUMIN HUMAN 25% 100 ML IV ONE (07:27)
--- NOTE | 2018-10-23 07:28 | P.HP ---
Certification for Inpatient Patient admitted to: Inpatient With expected LOS: >2 Midnights Patient will require the following post-hospital care: None Practitioner: I am a practitioner with admitting privileges, knowledge of patient current condition, hospital course, and medical plan of care. Services: Services provided to patient in accordance with Admission requirements found in Title 42 Section 412.3 of the Code of Federal Regulations Patient History Date of Service: 10/23/18 Reason for admission: Consolidated pneumonia, hospital-acquired in patient w/ CMP(EF=10%) History of Present Illness: Patient is a 48-year-old gentleman who will has a history of cardiomyopathy with an ejection fraction of roughly 10%. He follows up at the [facility] cardiac transplant center. He is awaiting a transplant. He was treated about a week ago at [facility] for pneumonia. He was sent home with antibiotics after 4 days in the hospital. However, he remains with a consolidated pneumonia. Will go ahead and treat him for a nosocomial acquired pneumonia. Will also get Cardiology to see the patient as well. Patient has multiple staff lesions throughout his upper extremity. He is most likely colonized with staff. We use Bactroban ointment to his upper extremities as well as vancomycin IV which will also be used to cover the pneumonia. Patient be admitted to the hospital for further treatment. Allergies No Known Allergies Allergy (Verified 10/23/18 04:39) - Past Medical/Surgical History Has patient received pneumonia vaccine in the past: Yes Diabetic: No -: HTN -: CHF -: Afib -: seizure X1 -: pacemaker/defibrillator -: R ankle surgery -: laurie knee surgeries - Family History Father Medical History: Heart disease, Hypertension Mother Medical History: Heart disease, Hypertension, Lung disease, Diabetes Notes: COPD - Social History Smoking Status: Never smoker Alcohol use: Yes CD- Drugs: No Caffeine use: Yes Place of Residence: Home Review of Systems 10-point ROS is otherwise unremarkable Physical Examination - Vital Signs Temperature: 96.7 F Blood Pressure: 139/114 Pulse: 94 Respirations: 12 Pulse Ox (%): 98 - Physical Exam General: Alert, In no apparent distress, Oriented x3 HEENT: Atraumatic, PERRLA, Mucous membr. moist/pink, EOMI, Sclerae nonicteric Neck: Supple, 2+ carotid pulse no bruit, No LAD, Without JVD or thyroid abnormality Respiratory: Diminished, Crackles/rales, Rhonchi/gurgles Cardiovascular: Regular rate/rhythm, Normal S1 S2, Systolic murmur Gastrointestinal: Normal bowel sounds, Soft and benign, Non-distended, No tenderness, Other (OBESE) Musculoskeletal: No clubbing, No tenderness, Swelling Integumentary: No rashes, Skin lesion (MRSA colonization), Tenderness/swelling, Cyanosis Neurological: Normal speech, Normal tone, Sensation intact, Cranial nerves 3-12 intact, Normal affect, Abnormal strength Lymphatics: No axilla or inguinal lymphadenopathy - Studies Laboratory Data (last 24 hrs) 10/23/18 02:15: WBC 7.8, Hgb 11.8 L, Hct 36.1 L, Plt Count 332 10/23/18 02:15: Sodium 135 L, Potassium 3.5, BUN 33 H, Creatinine 1.53 H, Glucose 120 H, Total Bilirubin 1.5 H, AST 137 H, ALT 143 H, Alkaline Phosphatase 189 H Assessment & Plan - Problems (Diagnosis) (1) Lung consolidation due to pneumococcal pneumonia Current Visit: Yes Status: Acute (2) Cardiomyopathy Current Visit: Yes Status: Acute (3) Cardiac LV ejection fraction 10-20% Current Visit: Yes Status: Acute (4) Methicillin resistant Staphylococcus aureus colonization Current Visit: Yes Status: Acute (5) Morbid obesity Current Visit: Yes Status: Acute - Plan 1. Continue with IV antibiotics 2. Awaiting sputum and blood culture 3. Repeat chest x-ray 4. Will proceed with CT scan of the chest if pneumonia is not improved 5. Pulmonary and Cardiology consultation 6. Continue with nebs as needed 7. O2 per protocol 8. Will hold off on any IV fluids because of cardiac status. Continue with cardiac meds; will need to get a list of his home medications 9. Repeat labs including CBC and renal function in a.m. gently diurese because of renal function. 10. GI and DVT prophylaxis Discharge Plan: Home Plan to discharge in: Greater than 2 days - Advance Directives Does patient have a Living Will: No Does patient have a Durable POA for Healthcare: No - Code Status/Comfort Care Code Status Assessed: Yes Code Status: Full Code Critical Care: No Time Spent Managing PTS Care (In Minutes): 50
--- NOTE | 2018-10-23 08:09 | RAD REPORT ---
EXAM DESCRIPTION: RAD - Chest Single View - 10/23/2018 1:54 am CLINICAL HISTORY: Cough, chest pain COMPARISON: None. TECHNIQUE: AP portable chest image was obtained 0153 hours . FINDINGS: No peripheral mass or consolidation seen. Lung markings are accentuated by shallow inspira tion, portable technique and body habitus artifact. Pronounced enlargement of the cardiac silhouette is present. Upper lobe vasculature is engorged. Baseline for the patient is unknown. Pacemaker/defibr illator is in place. Trachea is midline. No measurable pleural effusion and no pneumothorax. No acute bony abnormality seen. No acute aortic findings suspected. IMPRESSION: Pronounced cardiomegaly from chamber enlargement and/or pericardial effusion. Vascular engorgement. No focal consolidation. No baseline for the patient is known. Mild failure or volume overload are not excluded.
[2018-10-23] MEDS ORDERED: SPIRONOLACTONE 25 MG TABLET PO SCH (09:00)
[2018-10-23] MEDS: ENOXAPARIN 40 MG/0.4 ML SQ SCH (09:52)
[2018-10-23] MEDS: PIPER/TAZO/NS 3.375gm 3.375 GM/100 ML BAG IVPB SCH ×3 (09:53→23:54)
[2018-10-23] MEDS: FUROSEMIDE 20 MG/ 2ML VIAL IV SCH ×2 (09:53→17:44)
[2018-10-23] MEDS: MORPHINE 4 MG/ML SYR IV PRN ×4 (09:55→23:52)
[2018-10-23] MEDS: VANCOMYCIN 2 GM in NA CHLORIDE 0.9% 500 ML IVPB SCH (09:55)
[2018-10-23] MEDS ORDERED: NA CHLORIDE 0.9% 100 ML IV ONE (10:08)
[2018-10-23] MEDS ORDERED: MAGIC MOUTHWASH 180 ML BTL PO PRN (10:33)
[2018-10-23] MEDS: HYDROCODONE/APAP 7.5/325 MG TAB PO PRN ×2 (12:18→20:23)
[2018-10-23] MEDS: CEPACOL LOZENGES PO PRN ×2 (12:18→20:17)
[2018-10-23] MEDS: METOPROLOL TAR 25 MG TAB PO SCH (17:43)
[2018-10-23] MEDS: ATORVASTATIN 40 MG TAB PO SCH (20:17)
--- NOTE | 2018-10-24 00:34 | CON ---
Date of Consultation: 10/23/[address] Hill's service on 10/23/2018. The patient was seen on 10/23/2018. Reason For Consultation: Elevated troponin. History Of Present Illness: Mr. West is 48; has a history of atrial fibrillation, cardiomyopathy, AICD, pacemaker, hypertension, gets his care by Dr. Shell. He saw him about a month ago when he had a defibrillator checked, which was okay. Mr. West does not remember his ejection fraction. He cam e in with no cardiac symptoms, was found to have a right upper lobe pneumonia. Troponin was elevated and I was consulted. He denied chest pain. Denies nausea, vomiting, diaphoresis, PND, orthopnea, p edal edema, palpitation, or syncope. Allergies: NONE. Review of Systems: Negative. Social History: Negative. Family History: Negative. Medications: Include aspirin, Lipitor, losartan, potassium, lisinopril, metoprolol, Aldactone, Connor nix, and [place]. Physical Examination: General: Mr. West is obese. Vital Signs: Stable, afebrile, sinus rhythm. HEENT: Negative. Neck: Supple without any bruit, lymphadenopathy, JVD, or thyromegaly. Chest: Reveals some rales in both bases. Cardiac: Revealed a regular rhythm and rate with an S3 gallops. No murmurs or rubs. Abdomen: Obese, but benign. Extremities: Revealed 1+ edema. Diagnostic Data: His creatinine is 1.53, troponin is 0.08. LFTs were mildly elevated. Impression And Plan: 1.The patient with chronic systolic congestive heart failure, status post pacemaker and defibrillato r. This is stable. This is probably what has caused the elevation in his troponin. I do not see aliya james need to do any further cardiac workup at this point. He just saw Dr. Shell, and according to him, he had a defibrillator checked, which was well and has recently had an echocardiogram by him. Mr. Saad lainez does not have coronary artery disease as far as we know. 2.Elevated liver function tests, possibly secondary to cardiomyopathy. 3.Renal insufficiency stage III. 4.Atrial fibrillation that has resolved. 5.Hypertension. Mr. West needs to have his pneumonia treated, and I think he can go home once it is done and he doyle l follow up with Dr. Shell in the near future. NB/MODL Voice ID: [id number] Report ID: [id number]
[2018-10-24] MEDS: VANCOMYCIN 2 GM in NA CHLORIDE 0.9% 500 ML IVPB SCH ×2 (02:06→21:00)
[2018-10-24] MEDS: HYDROCODONE/APAP 7.5/325 MG TAB PO PRN ×3 (02:06→16:49)
[2018-10-24 04:40] LABS: Absolute Lymphocytes (CBC) 0.8 K/uL (0.7-4.9); Absolute Monocytes 0.4 K/uL (0.1-1.3); Absolute Neutrophil 8.1 K/uL (1.8-8.0); Basophils % 0.6 % (0-1.3); Hematocrit 36.7 % (39.6-49.0); Lymphocytes % 8.8 % (15.3-44.8); MPV 8.9 fL (7.6-11.3); Monocytes % 4.7 % (3.3-12.3); RBC Red Blood Cell Count 3.86 M/uL (4.33-5.43)
[2018-10-24 04:53] LABS: Albumin 2.9 g/dL (3.4-5.0); Phosphorus 2.6 mg/dL (2.5-4.9); Potassium 4.4 mmol/L (3.5-5.1)
[2018-10-24] MEDS: METOPROLOL TAR 25 MG TAB PO SCH ×2 (05:13→18:00)
[2018-10-24] MEDS: MORPHINE 4 MG/ML SYR IV PRN ×3 (05:13→14:23)
[2018-10-24 05:43] LABS: Blood Morphology Comment NOTED (NOT SEEN); Platelet Estimate ADEQ; Teardrop Cell 1+
[2018-10-24] MEDS: PIPER/TAZO/NS 3.375gm 3.375 GM/100 ML BAG IVPB SCH ×2 (08:42→17:46)
[2018-10-24] MEDS: FUROSEMIDE 20 MG/ 2ML VIAL IV SCH ×2 (08:43→17:00)
[2018-10-24] MEDS: ENOXAPARIN 40 MG/0.4 ML SQ SCH (08:45)
[2018-10-24] MEDS ORDERED: ASPIRIN EC 81 MG TAB PO SCH (09:00)
[2018-10-24] MEDS ORDERED: POTASSIUM CL SA 10 MEQ TAB PO SCH (09:00)
[2018-10-24] MEDS ORDERED: SPIRONOLACTONE 25 MG TABLET PO SCH (09:00)
[2018-10-24] MEDS ORDERED: LISINOPRIL 20 MG TAB PO SCH (09:00)
[2018-10-24] MEDS ORDERED: Levofloxacin500mg IV 500 MG/100 ML BAG IV SCH (09:00)
[2018-10-24] MEDS ORDERED: METOLAZONE 5 MG TABLET PO SCH (09:00)
[2018-10-24] MEDS ORDERED: METOPROLOL XL 25 MG TAB PO SCH (09:00)
[2018-10-24] MEDS ORDERED: PANTOPRAZOLE 40MG TABLET PO SCH (09:00)
--- NOTE | 2018-10-24 11:48 | EKG ---
Test Date: 2018-10-23 Test Time: 01:21:26 Sleeve Wheel Maker: CEZAR MEASUREMENT RESULTS: Intervals: Rate: 96 MI: 80 QRSD: 170 QT: 452 QTc: 571 [place]: P: 48 MI: 80 QRS: 135 T: -37 INTERPRETIVE STATEMENTS: Atrial-sensed ventricular-paced rhythm Biventricular pacemaker detected Abnormal ECG Compared to ECG 10/21/2007 05:51:19 Sinus rhythm no longer present Electronically Signed On 10-24-18 11:43:17 [employer] by Won Thomas
--- NOTE | 2018-10-24 11:48 | EKG ---
Test Date: 2018-10-23 Test Time: 01:21:59 Public Information Director: CEZAR MEASUREMENT RESULTS: Intervals: Rate: 95 DE: 120 QRSD: 168 QT: 444 QTc: 557 [place]: P: 43 DE: 120 QRS: 133 T: -33 INTERPRETIVE STATEMENTS: Atrial-sensed ventricular-paced rhythm Biventricular pacemaker detected Abnormal ECG Compared to ECG 10/23/2018 01:21:26 No significant changes Electronically Signed On 10-24-18 11:43:16 OUTPATIENT CASE MANAGER by Won Thomas
[2018-10-24 12:28] VITALS: TEMP 97.3
--- NOTE | 2018-10-24 16:23 | P.PN ---
Subjective Date of Service: 10/24/18 Chief Complaint: Consolidated pneumonia, hospital-acquired in patient w/ CMP(EF= 10%) Subjective: No new changes Patient seen and examined at bedside. No family at bedside. Chart reviewed and case discussed with nursing staff patient complaining of pain in b/l lower extremities on the weeping lesions. Breathing improved off oxygen. Review of Systems 10-point ROS is otherwise unremarkable Physical Examination - Vital Signs Temperature: 97.3 F Blood Pressure: 113/79 Pulse: 81 Respirations: 18 Pulse Ox (%): 99 - Physical Exam General: Alert, In no apparent distress, Oriented x3 HEENT: Atraumatic, PERRLA, EOMI Neck: Supple, JVD not distended Respiratory: Clear to auscultation bilaterally, Normal air movement Cardiovascular: Regular rate/rhythm, Normal S1 S2 Gastrointestinal: Normal bowel sounds, No tenderness Musculoskeletal: No tenderness Integumentary: Rash(es), Skin lesion, Other (Multiple weeping lesions, both upper and lower extremities. ) Neurological: Normal speech, Normal tone, Normal affect Lymphatics: No axilla or inguinal lymphadenopathy Assessment And Plan - Current Problems (Diagnosis) (1) CKD (chronic kidney disease) stage 3, GFR 30-59 ml/min Current Visit: Yes Status: Acute (2) Lung consolidation due to pneumococcal pneumonia Onset Date: 10/24/18 Current Visit: Yes Status: Acute (3) Cardiomyopathy Onset Date: 10/24/18 Current Visit: Yes Status: Acute (4) Cardiac LV ejection fraction 10-20% Onset Date: 10/24/18 Current Visit: Yes Status: Acute (5) Methicillin resistant Staphylococcus aureus colonization Onset Date: 10/24/18 Current Visit: Yes Status: Acute (6) Morbid obesity Onset Date: 10/24/18 Current Visit: Yes Status: Acute (7) Skin lesion Current Visit: Yes Status: Acute - Plan This is a 48 yr old male with: Lung consolidation due to pneumococcal pneumonia Continue with IV antibiotics: Levaquin and zosyn, Day #2 Repeat chest x-ray tomorrow Will proceed with CT scan of the chest if pneumonia is not improved Continue with nebs and oxygen as needed Cardiomyopathy Cardiac LV ejection fraction 10-20% Will hold off on any IV fluids because of cardiac status. Continue with home cardiac meds Cardiology consulted, Recommendations appreciated. skin lesions Methicillin resistant Staphylococcus aureus colonization Weeping skin lesions on bilateral lower and upper extermities ID consulted. On IV vancomycin, day #2 for MRSA coverage Wound cultures pending. Continue wound care dressing changes Morbid obesity DVT prophylaxis: Lovenox GI prophylaxis: Protonic, home medication Diet: Heart healthy, fluid restriction Disposition: pending symptomatic improvement.
[2018-10-24 17:18] VITALS: O2SAT 99
[2018-10-24 17:55] VITALS: BP 107/75
--- NOTE | 2018-10-24 19:43 | RAD REPORT ---
EXAM DESCRIPTION: US - Extrem Venous W Compress [place] - 10/24/2018 7:32 pm CLINICAL HISTORY: swelling on both legs. Bilateral leg edema and swelling. COMPARISON: No comparisons TECHNIQUE: Real-time sonographic interrogation of the left and right lower extremity deep venous sys tems was performed. FINDINGS: Normal compressibility, flow augmentation, phasic flow and spontaneous flow is identified in both the left and right lower extremity deep venous systems. IMPRESSION: No sonographic evidence of left or right lower extremity deep venous thrombosis.
--- NOTE | 2018-10-24 20:29 | CON ---
INFECTIOUS DISEASE CONSULT History Of Present Illness: This is a 48-year-old male, I was consulted for multiple lesions on the arms and legs. As per the patient, this has been going on since he the patient has signif icant history of cardiomyopathy with ejection fraction of 10%. He is being followed at [facility]. The patient denies any other discomfort at this time. Also being treated for con solidated pneumonia, nosocomial pneumonia, currently on Levaquin, Zosyn and vancomycin. Social History: Nonsmoker, nondrinker. Family History: Noncontributory. Past Medical History: Hypertension, congestive heart failure, atrial fibrillation, seizure x1, pacem juana, right ankle surgery, bilateral knee surgeries, and leg edema. Medications: Include vancomycin, Zosyn and Levaquin. Allergies: NO KNOWN DRUG ALLERGIES. Review of Systems: A 10-point review was performed. Physical Examination: General: This is a 48-year-old male sitting in easy chair, not in any acute cardiopulmonary distress . Vital Signs: Temperature 97, pulse 81, respirations 18, and blood pressure 113/79. HEENT: Unremarkable. Neck: Supple. Lungs: Basal crackles. Heart: S1 and S2, regular. Abdomen: Soft, nontender. Bowel sounds present. Extremities: 4+ edema. Radiologic Data: Chest x-ray shows the patient has cardiomegaly with no focal consolidation. Laboratory Data: Shows WBC 9.4, hemoglobin 11.9, and platelets are 306. Chemistry shows sodium 133, potassium 4.4, chloride 98, bicarb 27, BUN 31, creatinine 1.47, glucose is 115, albumin is 2.9. Assessment And Plan: Multiple lesions on arms and legs. Most likely, the patient pustula r lesions. We will recommend to apply Hibiclens and Bactroban on daily basis. Continue vancomycin a nd Zosyn. Discontinue Levaquin. Pneumonitis versus congestive heart failure. Continue antibiotic a nd supportive care. We will follow the patient as needed. Thank you Dr. Hill for consult. NF/MODL Voice ID: [id number] Report ID: [id number]
[2018-10-24] MEDS: ATORVASTATIN 40 MG TAB PO SCH (21:00)
== END 2018-10-24 21:08 | disposition left against medical advice (07) | DRG 194 ==
LOC: ER 00:39 → ERHOLD 03:41 → 4TH 04:07
PROVIDERS: ADMIT Hospitalist; ATTEND Hospitalist
DX: J13 Pneumonia due to Streptococcus pneumoniae (principal); I42.9 Cardiomyopathy, unspecified; Z68.41 Body mass index [BMI] 40.0-44.9, adult; I50.22 Chronic systolic (congestive) heart failure; I13.0 Hypertensive heart and chronic kidney disease with heart failure and stage 1 through stage 4 chronic kidney disease, or unspecified chronic kidney disease; L08.0 Pyoderma; I48.91 Unspecified atrial fibrillation; E66.01 Morbid (severe) obesity due to excess calories; N18.3 Chronic kidney disease, stage 3 (moderate); Z95.810 Presence of automatic (implantable) cardiac defibrillator
CPT/HCPCS: 36415; 71045; 80053; 80061; 81003; 81015; 82962; 83605; 83735; 84100; 84145; 84484; 85025; 87040; 87070; 87205; 93005; 93970; 94760; 96365; 96375; 99285; J0696; J1650; J1940; J2405; J2543; J2930; J7030; P9047

== ENCOUNTER 2021-02-07 19:40 | Inpatient (IN) | payer OTHER ==
--- OUTSIDE RECORDS SUMMARY | 2021-02-07 19:47 | XMS REPORT | Continuity of Care Document ---
:1970 Author Organization [facility] t Address [address] [place] [address] Care Team Providers Name Role Phone Yusra Ha MD Primary Care Physician Patti WIN Attending Clinician Unavailable Stella Monahan DO Attending Clinician Henri FULLER, O. Attending Clinician Gordo Williamson MD Attending Clinician Provider Attending Clinician Unavailable Lexi Little MD Attending Clinician Ana FULLER, Rhonda Attending Clinician Fredis Wright RN Attending Clinician Unavailable Guillermo Carlos DO Attending Clinician Roland FULLER, Maryellen Attending Clinician [place] FULLER Attending Clinician Leon FULLER Attending Clinician Irene Fitch MD Attending Clinician Mario Lopez MD Attending Clinician [phone] Geovani Attending Clinician Lorena FULLER, O. Attending Clinician Sinai FULLER, Baudilio Attending Clinician Jose Luis Tucker MD Attending Clinician Sylvie Elias MD Attending Clinician Jazmín Chase MD, Tran Attending Clinician [phone] Lacy FULLER, Dmitriy Attending Clinician Lisandro Lenó MD Attending Clinician Elvi Prado MD Attending Clinician Emery FRIAS Attending Clinician Sloane Tucker DO Attending Clinician Titus FULLER, Waldo Attending Clinician Vaibhav Zabala MD Attending Clinician Virgen FULLER MKarolina Attending Clinician Leela FULLER Attending Clinician ATTAR Attending Clinician Unavailable ÓSCAR Attending Clinician Unavailable Di FULLER, Josey Attending Clinician HENRI Admitting Clinician Unavailable ROLAND Admitting Clinician Unavailable EDUARDO Admitting Clinician Unavailable KOMAL Admitting Clinician Unavailable JAZMÍN CHASE Admitting Clinician Unavailable NAKUL Admitting Clinician Unavailable Payers Payer Name Policy Type Policy Effective Date Expiration Date Sour ce Number [facility] MEDICAIDUNITED [id number] 2019 [place] [employer] STAR+ 00:00:00 [employer] [id number] 2019- PresentHMO Problems Condition Condition Condition Status Onset Resolution Last Treating Co mments Source Name Details Category Date Date Treatment Clinician Date Acute Acute Disease Active [place] systolic systolic 4-11 [facility] heart heart 00:00: st failure failure 00 Acute on Acute on Disease Active 2019-10 [place] chronic chronic 0-21 [facility] heart heart 00:00: st failure failure 00 Acute Acute Disease Active 2019-10 [place] decompensa decompensa 0-15 [facility] neela heart neela heart 00:00: st failure failure 00 Acute on Acute on Disease Active [place] chronic chronic 9-29 [facility] combined combined 00:00: st systolic systolic 00 (congestiv (congestiv e) and e) and diastolic diastolic (congestiv (congestiv e) heart e) heart failure failure Acute on Acute on Disease Active [place] chronic chronic 9-20 [facility] congestive congestive 00:00: st heart heart 00 failure failure Lymphedema Lymphedema Disease Active [place] 8-31 [facility] 00:[facility]: st 00 Acute Acute Disease Active [place] pulmonary pulmonary 8-25 Meth bruno edema edema 00:00: st 00 Syncope Syncope Disease Active [place] 8-03 [facility] 00:00: st 00 Hypotensio Hypotensio Disease Active H mary annston n n 8-03 [facility] 00:00: st 00 COVID-19 COVID-19 Disease Active [place] virus virus 8-03 [facility] detected detected 00:00: st 00 Pneumonia Pneumonia Disease Active L[facility] ston due to due to 7-05 [facility] COVID-19 COVID-19 00:00: st virus virus 00 Chronic Chronic Disease Active [place] passive passive 2-03 [facility] congestion congestion 00:00: st of liver of liver 00 Metabolic Metabolic Disease Active [facility] ston syndrome syndrome 2-03 Method i 00:00: st 00 Bilateral Bilateral Disease Active Lori ston lower lower 1-22 [facility] extremity extremity 00:00: st edema edema 00 Stasis Stasis Disease Active [place] dermatitis dermatitis 8-04 Me th[facility] 00:00: st 00 Acquired Acquired Disease Active [place] hypothyroi hypothyroi 4-08 [facility] dism dism 00:00: st 00 Essential Essential Disease Active Lori ston hypertensi hypertensi 4-07 Me [facility] on on 00:00: st 00 Cellulitis Cellulitis Disease Active [place] 4-02 [facility] 00[facility]: st 00 NSVT NSVT Disease Active [place] (nonsustai (nonsustai 3-10 Me [facility] kerry kerry 00:00: st ventricula ventricula 00 r r tachycardi tachycardi a) a) Morbid Morbid Disease Active [place] obesity obesity 8-19 [facility] 00:00: st 00 CHF CHF Disease Active [place] (congestiv (congestiv 7-08 [facility] e heart e heart 00:00: st failure) failure) 00 Hypoxia Hypoxia Disease Resolve 2020-07-02 2020-07-02 [place] d 9- 00:00:00 11:53:03 Method i 00:00: st 00 Shortness Shortness Disease Resolve 2020-07-02 2020-07-02 [place] of breath of breath d 06-30 00:00:00 11:53:04 [facility] 00:00: st 00 Acute Acute Disease Resolve 2020-07-02 2020-07-02 [place] combined combined d 6-19 00:00:00 11:53:06 Me [facility] systolic systolic 00:00: st and and 00 diastolic diastolic HF (heart HF (heart failure) failure) Acute on Acute on Disease Resolve 2020-04-29 2020-04-29 [place] chronic chronic d 04-26 00:00:00 08:47:14 Meth bruno combined combined 00:00: st systolic systolic 00 and and diastolic diastolic congestive congestive heart heart failure failure Atypical Atypical Disease Resolve 2020-04-29 2020-04-29 [place] chest pain chest pain d 8- 00:00:00 08:47:17 [facility] 00:00: st 00 Acute Acute Disease Resolve 2020-04-26 2020-04-26 [place] respirator respirator d 11-12 00:00:00 14:08:59 [facility] y distress y distress 00:00: st 00 Pulmonary Pulmonary Disease Resolve 2020-04-26 2020-04-26 [place] embolism embolism d 11-12 00:00:00 14:09:23 Me [facility] with acute with acute 00:00: st cor cor 00 pulmonale pulmonale Cardiac Cardiac Disease Resolve 2020-04-26 2020-04-26 [place] arrest arrest d 11-12 00:00:00 14:09:45 Method i 00:00: st 00 Hyponatrem Hyponatrem Disease Resolve 2020-04-26 2020-04-26 [place] ia ia d 10-29 00:00:00 14:09:40 Method i 00:00: st 00 Acute on Acute on Disease Resolve 2020-04-26 2020-04-26 [place] chronic chronic d 10-29 00:00:00 14:08:57 Meth bruno respirator respirator 00:00: st y failure y failure 00 NSTEMI NSTEMI Disease Resolve 2018-102020-04-26 2020-04-26 [place] (non-ST (non-ST d - 00:00:00 14:09:25 Meth bruno elevated elevated 00:00: st myocardial myocardial 00 infarction infarction ) ) Cellulitis Cellulitis Disease Resolve 2020-04-26 2020-04-26 [place] of right of right d 4 00:00:00 14:09:06 Me th[facility] lower lower 00:00: st extremity extremity 00 Acute on Acute on Disease Resolve 2020-04-26 2020-04-26 [place] chronic chronic d 01-08 00:00:00 14:08:52 [facility] congestive congestive 00:00: st heart heart 00 failure failure CHF CHF Disease Resolve 2020-04-26 2020-04-26 [place] exacerbati exacerbati d 8 00:00:00 14:09:07 [facility] on on 00:00: st 00 Allergies, Adverse Reactions, Alerts This patient has no known allergies or adverse reactions. Family History Family Member Diagnosis Comments Start Date Stop Date Source Natural father Hypertension Gal Huff Natural mother [facility] mother Heart disease Gal Huff Social History Social Habit Start Date Stop Date Quantity Comments Source History of Chews Tobacco [place] Met [facility] tobacco use Exposure to Unable to assess Gal Huff SARS-CoV-2 (event) Tobacco use and 2021-01-12 2021-01-12 Never used [place] ethodist exposure 00:00:00 00:00:00 Alcohol intake 2021-01-12 2021-01-[address] [facility] 00:00:00 non-drinker of alcohol (finding) Sex Ass[birth year] [facility] ethodist 00:00:00 00:00:00 Smoking Status Start Date Stop Date Source Never smoker Gal Gaytan t Medications Ordered Filled Start Stop Current Ordering Indication Dosage Frequency Signature Comments Components Source Medication Medication Date Date Medication? Clinician (SIG) Name Name levothyroxi 2020- Yes 50ug QD Take 1 [facility] ne 4-16 05-16 tablet (50 [facility] (SYNTHROID) 00:00: 23:59 mcg total) st 50 mcg 00 :00 by mouth tablet daily for 30 days. aspirin Yes 81mg QD Take 81 mg [place] (ECOTRIN) 4-15 by mouth Method i 81 MG 16:24: daily. st enteric 50 coated tablet pantoprazol Yes 40mg QD Take 40 mg [place] e 4-15 by mouth [facility] (PROTONIX) 16:24: daily. st 40 MG EC 50 tablet amIODarone Yes 200mg Q.5D Take 200 [place] (PACERONE) 4-15 mg by [facility] 200 MG 16:24: mouth 2 st tablet 50 (two) times a day. carvediloL Yes 3.125mg Q.5D Take 3.125 [place] (COREG) 4-15 mg by [facility] 3.125 MG 16:24: mouth 2 st tablet 50 (two) times a day with meals. rivaroxaban Yes 20mg QD Take 20 mg [place] (XARELTO) 4-15 by mouth Method i 20 mg 16:24: daily. st tablet 50 albuterol Yes 2.5mg Q4H Take 2.5 [place] st[place] (ACCUNEB) 4-15 mg by [facility] 2.5 mg /3 16:24: nebulizati st mL (0.083 50 on every 4 %) (four) nebulizer hours as solution needed for wheezing or shortness of breath. albuterol Yes 2{puff} Q4H Inhale 2 [place] (PROAIR 4-15 puffs [facility] HFA) 90 16:24: every 4 st mcg/actuati 50 (four) on inhaler hours as needed for wheezing or shortness of breath. ascorbic Yes 1{tbl} Take 1 [place] acid 4-15 tablet by [facility] (VITAMIN C 16:24: mouth st ORAL) 50 daily. cholecalcif Yes 1{tbl} Take 1 [place] annamaria, 4-15 tablet by [facility] vitamin D3, 16:24: mouth st (VITAMIN D3 50 daily. ORAL) ZINC ORAL Yes 1{tbl} Take 1 [place] 4-15 tablet by [facility] 16:24: mouth st 50 daily. digOXIN Yes 125ug QD Take 125 [place] (LANOXIN) 4-15 mcg by Method[facility] 125 mcg 16:24: mouth st (0.125 mg) 50 daily. tablet clopidogreL Yes 75mg QD Take 75 mg [place] (PLAVIX) 75 4-15 by mouth Meth bruno mg tablet 16:24: daily. st 50 sacubitriL- Yes 1{tbl} Q.5D Take 1 [place] valsartan 4-15 tablet by Metho di (Entresto) 16:24: mouth 2 st 24-26 mg 50 (two) tablet per times a tablet day. bacitracin 2020- Yes Q.5D Apply [place] ointment 4-15 05-15 topically Metho di tube 00:00: 23:59 2 (two) st 00 :00 times a day for 30 days. cyclobenzap 2020- No 10mg Q.[id number] Take 10 mg [place] rine -31 12-30 [id number] by mouth 3 [facility] (FLEXERIL) 14:54: 00:00 3D (three) st 10 mg 14 :00 times a tablet day as needed for muscle spasms. BUMETanide 2020- No 2mg Q.5D Take 2 mg [place] (BUMEX) 2 12-31-30 by mouth 2 Met hodi MG tablet 07:41: 00:00 (two) st 08 :00 times a day. spironolact 2020- No 25mg Q.5D Take 25 mg [place] one 12-31-30 by mouth 2 [facility] (ALDACTONE) 07:41: 00:00 (two) st 25 MG 08 :00 times a tablet day. potassium Yes 20meq QD Take 2 [place] chloride 3-30 capsules [facility] (MICRO-K) 00:00: ([address] 10 MEQ CR 00 total) by capsule mouth daily. BUMETanide 2020- No 2mg Q.5D Take 1 [place] (BUMEX) 2 3-30 04-29 tablet (2 Meth bruno MG tablet 00:00: 23:59 mg total) st 00 :00 by mouth 2 (two) times a day for 30 days. benzonatate 2020- No 100mg Q.[id number] Take 1 [place] (TESSALON) 12-31 [id number] capsule Method[facility] 100 MG 00:00: 23:59 3D ([address] capsule 00 :00 total) by mouth 3 (three) times a day as needed for cough for up to 30 days. methocarbam 2020- No 500mg Q.[id number] Take 1 [place] oL 12-31 [id number] tablet Method i (ROBAXIN) 00:00: 23:59 3D ([address] 500 MG 00 :00 total) by tablet mouth 3 (three) times a day as needed for muscle spasms for up to 30 days. metOLazone No 5mg QD Take 1 [place] (ZAROXOLYN) 12-31 tablet (5 Me [facility] 5 MG tablet 00:00: 23:59 mg total) st 00 :00 by mouth daily for 30 days. simethicone No 80mg Q6H Chew 1 [facility] st[facility] (MYLICON) 12-31 tablet (80 Met hodi 80 MG 00:00: 23:59 mg total) st chewable 00 :00 every 6 tablet (six) hours as needed for flatulence for up to 30 days. zinc No 50mg QD Take 1 [place] sulfate 12-31 capsule [facility] (ZINCATE) 00:00: 23:59 ([address] 220 mg (50 00 :00 total) by mg mouth elemental daily for zinc) 30 days. capsule spironolact No 25mg Q.5D Take 1 [facility] st[place] one 12-31 tablet (25 [facility] (ALDACTONE) 00:00: 23:59 mg total) st 25 MG 00 :00 by mouth 2 tablet (two) times a day for 30 days. clopidogreL 2019-10 No 75mg QD Take 1 [facility] st[place] (PLAVIX) 75 08-31 tablet (75 M ethodi mg tablet 00:00: 23:59 mg total) st 00 :00 by mouth daily for 30 days. digOXIN 2019-10 No 125ug QD Take 1 Chento n (LANOXIN) 08-31 tablet Methodi 125 mcg 00:00: 23:59 ([address] (0.125 mg) 00 :00 total) by tablet mouth daily for 30 days. metOLazone 2019-10- No 5mg QD Take 5 mg [place] (ZAROXOLYN) 0-31 07- by mouth Met hodi 5 MG tablet 12:40: 00:[address] 35 :00 sacubitriL- 2019-10 2020- No 1{tbl} Q.5D Take 1 [place] valsartan 0-31 08-27 tablet by Meth bruno (ENTRESTO) 00:00: 23:[address] 24-26 mg 00 :00 (two) tablet per times a tablet day for 30 days. spironolact 2019-10- No 25mg Q.5D Take 1 L[facility] ston one -31 08-27 tablet (25 [facility] (ALDACTONE) 00:00: 23:59 mg total) st 25 MG 00 :00 by mouth 2 tablet (two) times a day for 30 days. cyclobenzap 2019- No 10mg Q.[id number] Take 1 [place] rine 07-02- [id number] tablet (10 [facility] (FLEXERIL) 00:00: 00:00 3D mg total) s t 10 mg 00 :00 by mouth 3 tablet (three) times a day as needed for muscle spasms for up to 30 days. BUMETanide 2019- No 2mg Q.5D Take 1 [place] (BUMEX) 2 07-02- tablet (2 Meth bruno MG tablet 00:00: 00:00 mg total) st 00 :00 by mouth 2 (two) times a day for 30 days. HYDROcodone 2019- No acute pain 1{tbl} Q4H Take 1 [place] -acetaminop - 10-06 tablet by Me th[facility] hen (NORCO) 00:00: 23:[address] 10-325 mg 00 :00 every 4 per tablet (four) hours as needed for moderate pain or severe pain for up to 7 days .acute pain. Max Daily Amount: 6 tablets tamsulosin 2020- No .4mg QD Take 0.4 [place] (FLOMAX) 06-26 09-23 mg by Method[facility] 0.4 mg 17:53: 00:[address] capsule 51 :00 daily with dinner. benzonatate 2019-0 2020- No 100mg Q.5D Take 100 [place] (TESSALON) 06-26 mg by Method[facility] 100 MG 17:53: 00:[address] capsule 51 :00 (two) times a day as needed for cough. losartan 2019-0 2020- No 25mg QD Take 25 mg [place] (COZAAR) 25 06-26 by mouth Met hodi MG tablet 17:53: 00:[address] 51 :00 torsemide 2019-0 2020- No 20mg Q.5D Take 20 mg [place] (DEMADEX) 06-26 by mouth 2 Met hodi 20 MG 12:38: 00:00 (two) st tablet 46 :00 times a day. ascorbic 2019-0 2020- No 1000mg QD Take 1 [place] acid, 06-05 tablet [facility] vitamin C, 00:00: 23:59 (1,000 mg s t (VITAMIN C) 00 :00 total) by 1000 MG mouth tablet daily for 30 days. cholecalcif 2019- 2020- No 1000U QD Take 1 Ho usfabby annamaria, 06-05 tablet [facility] vitamin D3, 00:00: 23:59 (1,000 st 1,000 unit 00 :00 Units tablet total) by mouth daily for 30 days. gabapentin 2019-0 2019- No 300mg Q.5D Take 1 [facility] st[facility] (NEURONTIN) 06-05 capsule Meth bruno 300 mg 00:00: 23:59 ([address] capsule 00 :00 total) by mouth 2 (two) times a day for 30 days. sacubitriL- 2019-0 2020- No 1{tbl} Q.5D Take 1 [place] valsartan 06-05 tablet by Meth bruno (ENTRESTO) 00:00: 23:[address] 24-26 mg 00 :00 (two) tablet per times a tablet day for 30 days. spironolact 2019-0 2020- No 25mg QD Take 1 L[facility] ston one 06-05 tablet (25 [facility] (ALDACTONE) 00:00: 23:59 mg total) st 25 MG 00 :00 by mouth tablet daily for 30 days. triamcinolo 2019-0 2020- No 1.25mg Q.5D Apply 1.25 [place] ne 06-05 10-02 mg [facility] acetonide 00:00: 23:[address] (triamcinol 00 :00 2 (two) one 100 mg times a in day for 30 lubriderm) days. 100 mg lotion zinc 2020-0 2020- No 220mg QD Take 1 [place] sulfate 06-05 capsule [facility] (ZINCATE) 00:00: 00:00 ([address] 220 (50) mg 00 :00 total) by capsule mouth daily for 30 days. methocarbam 2020-0 2020- No 500mg Q.[id number] Take 1 [place] oL 06-05 [id number] tablet Method i (ROBAXIN) 00:00: 00:00 3D ([address] 500 MG 00 :00 total) by tablet mouth 3 (three) times a day for 30 days. metOLazone 2020-0 2020- No 5mg QD Take 1 [place] (ZAROXOLYN) 06-05 tablet (5 Me [facility] 5 MG tablet 00:00: 00:00 mg total) st 00 :00 by mouth daily for 30 days. spironolact 2020-0 2020- No 25mg QD Take 25 mg [place] one 05-09 by mouth [facility] (ALDACTONE) 13:59: 00:[address] 25 MG 53 :00 tablet losartan 2020-0 2020- No 25mg QD Take 25 mg [place] (COZAAR) 25 05-09 by mouth Met hodi MG tablet 13:59: 00:[address] 53 :00 BUMETanide 2020-0 2020- No 2mg Q.5D Take 2 mg [place] (BUMEX) 2 05-09-06 by mouth 2 Met hodi MG tablet 12:36: 00:00 (two) st 23 :00 times a day. BUMETanide 2020-0 2020- No 2mg QD Take 1 [place] (BUMEX) 2 05-09- tablet (2 Meth bruno MG tablet 00:00: 23:59 mg total) st 00 :00 by mouth daily for 30 days. methocarbam 2020-0 2020- No 500mg Take 500 [place] oL 7-27 07-27 mg by [facility] (ROBAXIN) 12:39: 00:[address] 500 MG 40 :00 tablet torsemide 2020-0 2020- No 20mg Q.5D Take 20 mg [place] (DEMADEX) 04-29 by mouth 2 Met hodi 20 MG 12:39: 00:00 (two) st tablet 40 :00 times a day. ascorbic 2020-0 2020- No 1000mg QD Take 1 [place] acid, 04-29 tablet [facility] vitamin C, 00:00: 00:00 (1,000 mg s t (VITAMIN C) 00 :00 total) by 1000 MG mouth tablet daily for 30 days. cholecalcif 2020-0 2020- No 1000U QD Take 1 [place] annamaria, 04-29 tablet [facility] vitamin D3, 00:00: 00:00 (1,000 st 1,000 unit 00 :00 Units tablet total) by mouth daily for 30 days. zinc 2020-0 2020- No 220mg QD Take 1 [place] sulfate 04-29 capsule [facility] (ZINCATE) 00:00: 00:00 ([address] 220 (50) mg 00 :00 total) by capsule mouth daily for 30 days. doxycycline 2020-0 2020- No 100mg Q.5D Take 1 [place] (VIBRAMYCIN 04-29 capsule Meth bruno ) 100 MG 00:00: 00:00 ([address] capsule 00 :00 total) by mouth 2 (two) times a day with meals for 7 days. cefdinir 2020-0 2020- No 300mg Q.5D Take 1 [place] (OMNICEF) 04-29 capsule Method i 300 MG 00:00: 00:00 ([address] capsule 00 :00 total) by mouth 2 (two) times a day for 7 days. aspirin/eduardo 2020-0 2020- No 1{packe Q24H Take 1 [place] icylamide/c 04-24- t} packet by Me beti trevizo (BC 16:07: 00:[address] HEADACHE 14 :00 daily as POWDER needed ORAL) (headache or backache). benzonatate 2020-0 2020- No 100mg Q.5D Take 100 [place] (TESSALON) 04-24 07-22 mg by Methodi 100 MG 16:04: 00:[address] capsule 03 :00 (two) times a day. metOLazone 2019-0 2020- No 5mg QD Take 1 [place] (ZAROXOLYN) 04-15- tablet (5 Me [facility] 5 MG tablet 00:00: 00:00 mg total) st 00 :00 by mouth daily for 30 days. famotidine 2019-0 2020- No 20mg Q.5D Take 1 [place] (PEPCID) 20 04-12 tablet (20 M ethodi MG tablet 00:00: 00:00 mg total) st 00 :00 by mouth 2 (two) times a day for 30 days. doxycycline 2020-0 2020- No 100mg Q.5D Take 1 Derian woods (VIBRAMYCIN 04-12 capsule Meth bruno ) 100 MG 00:00: 23:59 ([address] capsule 00 :00 total) by mouth 2 (two) times a day with meals for 10 days. triamcinolo 2019-0 2020- No [id number] Q.5D Apply [place] ne 04-12 30,000 mg Method[facility] acetonide 00:00: 23:[address] (triamcinol 00 :00 2 (two) one 100 mg times a in day for 7 lubriderm) days. 100 mg lotion methocarbam 2019-0 2020- No 500mg Q.25D Take 500 [place] oL - 06-29 mg by [facility] (ROBAXIN) 12:21: 00:[address] 500 MG 26 :00 (four) tablet times a day. torsemide 2020-0 2020- No 20mg Q.5D Take 20 mg H [place] (DEMADEX) 04-01- by mouth 2 Met hodi 20 MG 12:21: 00:00 (two) st tablet 26 :00 times a day. losartan 2020-0 2020- No 25mg QD Take 25 mg [place] (COZAAR) 25 - 06-29 by mouth Met hodi MG tablet 12:21: 00:[address] 26 :00 gabapentin 2020-0 2020- No 300mg Q.[id number] Take 1 [place] (NEURONTIN) -01 05- [id number] capsule Methodi 300 mg 00:00: 23:59 3D ([address] capsule 00 :00 total) by mouth 3 (three) times a day for 30 days. tiZANidine 2019- No 4mg Q8H Take 1 [place] (ZANAFLEX) 04-01 tablet (4 Met hodi 4 MG tablet 00:00: 23:59 mg total) st 00 :00 by mouth every 8 (eight) hours as needed for muscle spasms for up to 30 days. lidocaine 2019- 2020- No 1{patch Q24H Place 1 [place] (LIDODERM) 04-01 } patch on Meth bruno 5 % 00:00: 00:[address] 00 :00 daily for 30 days. Remove & Discard patch within 12 hours or as directed by MD mendozaamcinolo 2019- No [id number] Q.5D Apply [place] ne 04-01 30,000 mg [facility] acetonide 00:00: 00:[address] (triamcinol 00 :00 2 (two) one 100 mg times a in day for 7 lubriderm) days. 100 mg lotion benzonatate 2019- No 100mg Q8H Take 1 [place] (TESSALON) 4-25 05-25 capsule Metho di 100 MG 00:00: 23:59 ([address] capsule 00 :00 total) by mouth every 8 (eight) hours for 30 days. losartan 2019- No 25mg QD Take 1 [place] (COZAAR) 25 4-25 05-25 tablet (25 M ethodi MG tablet 00:00: 23:59 mg total) st 00 :00 by mouth daily for 30 days. digOXIN 2019- No 125ug QD Take 125 [place] (LANOXIN) 2-03 09-23 mcg by Methodi 125 mcg 00:00: 00:[address] (0.125 mg) 00 :00 daily. tablet Immunizations Ordered Immunization Filled Immunization Date Status Commen Source Name Name Tdap 2020-05-06 Completed [place] 00:00:00 [facility] Influenza, 2015-05-22 Completed [place] Unspecified 00:00:00 [facility] Vital Signs Vital Name Observation Time Observation Value Comments Source Systolic blood 2021-01-16 11:04:16 114 mm[Hg] [place] [facility] pressure Diastolic blood 2021-01-16 11:04:16 74 mm[Hg] [place] [facility] pressure Heart rate 2021-01-16 11:04:16 87 /min Gal Huff Body temperature 2021-01-16 11:04:16 36.39 Shonda Chen Huff Respiratory rate 2021-01-16 11:04:16 18 /min Chen Huff Oxygen saturation in 2021-01-16 11:04:16 96 /min Gal Huff Arterial blood by Pulse oximetry Body weight 2021-01-14 04:42:14 166.062 kg Gal Huff BMI 2021-01-14 04:42:14 45.76 kg/m2 Gal Huff Body height 2021-01-13 16:50:00 190.5 cm Gal Huff Procedures Procedure Date / Time Performing Clinician Source Performed TTE COMPLETE, W CONTRAST, 2021-01-16 08:15:00 Gabby Shell W DOPPLER ([id number]) BASIC METABOLIC PANEL 2021-01-16 04:30:00 Elissa Johansen B NATRIURETIC PEPTIDE 2021-01-16 04:30:00 Gabby Shell ESTIMATED GFR 2021-01-16 04:30:00 Elissa Johansen XR LUMBAR SPINE 2 OR 3 VW 2021-01-15 19:56:[address] ANGIOGRAM PE CHEST 2021-01-15 14:20:00 Gabby Shell HC COMPLETE BLD COUNT 2021-01-15 04:30:00 Mendoza Álvarez W/AUTO DIFF BASIC METABOLIC PANEL 2021-01-15 04:30:00 Mendoza Álvarez ESTIMATED GFR 2021-01-15 04:30:00 Mendoza Álvarez HC COMPLETE BLD COUNT 2021-01-14 04:54:00 Mendoza Álvarez W/AUTO DIFF BASIC METABOLIC PANEL 2021-01-14 04:54:00 Mendoza Álvarez ESTIMATED GFR 2021-01-14 04:54:00 Mendoza Álvarez TROPONIN 2021-01-13 03:18:00 Mendoza Álvarez HC COMPLETE BLD COUNT 2021-01-13 03:18:00 Mendoza Álvarez W/AUTO DIFF BASIC METABOLIC PANEL 2021-01-13 03:18:00 Mendoza Álvarez LIPID PANEL 2021-01-13 03:18:00 Mendoza Álvarez THYROID STIMULATING 2021-01-13 03:18:00 Mendoza Álvarez [facility] HORMONE T4, FREE 2021-01-13 03:18:00 Mendoza Álvarez ESTIMATED GFR 2021-01-13 03:18:00 Mendoza Álvarez TROPONIN 2021-01-12 22:19:00 Mendoza Álvarez COVID-19 QUALITATIVE PCR 2021-01-12 20:50:00 Manav Monahan [facility] XR CHEST 1 VW PORTABLE 2021-01-12 19:56:31 Dominga Calderon on [facility] Johny HC COMPLETE BLD COUNT 2021-01-12 19:38:00 Dominga Calderon [facility] W/AUTO DIFF Johny COMPREHENSIVE METABOLIC 2021-01-12 19:38:00 Dominga Calderon [facility] PANEL Johny TROPONIN 2021-01-12 19:38:00 Mendoza Álvarez B NATRIURETIC PEPTIDE 2021-01-12 19:38:00 Dominga Calderon [facility] Johny PARTIAL THROMBOPLASTIN 2021-01-12 19:38:00 Dominga Calderon [facility] TIME (PTT) Johny PROTHROMBIN TIME WITH INR 2021-01-12 19:38:00 Dominga Calderon [facility] Johny ESTIMATED GFR 2021-01-12 19:38:00 Dominga Calderon Meth odist Johny ECG 12-LEAD 2021-01-12 19:18:21 Dominga Calderon Meth odist Johny MAGNESIUM LEVEL 2020-12-30 03:41:00 Sussy White De thodist BASIC METABOLIC PANEL 2020-12-30 03:41:00 Sussy White [facility] ESTIMATED GFR 2020-12-30 03:41:00 Sussy White De thodist BASIC METABOLIC PANEL 2020-12-29 06:15:00 Mendoza Álvarez ESTIMATED GFR 2020-12-29 06:15:00 Mendoza Álvarez MAGNESIUM LEVEL 2020-12-29 04:00:00 Sussy White De thodist BASIC METABOLIC PANEL 2020-12-29 04:00:00 Sussy White Chen sequeira [facility] ESTIMATED GFR 2020-12-29 04:00:00 Sussy White De thodist B NATRIURETIC PEPTIDE 2020-12-28 10:00:00 Sussy White Chen sequeira [facility] MAGNESIUM LEVEL 2020-12-28 08:31:00 Sussy White De thodist BASIC METABOLIC PANEL 2020-12-28 08:31:00 Sussy White Chen sequeira [facility] ESTIMATED GFR 2020-12-28 08:31:00 S[place] White De thodist B NATRIURETIC PEPTIDE 2020-12-27 05:10:00 Gabby Shell HC COMPLETE BLD COUNT 2020-12-26 05:32:00 Mendoza Álvarez W/AUTO DIFF BASIC METABOLIC PANEL 2020-12-26 05:32:00 Mendoza Álvarez ESTIMATED GFR 2020-12-26 05:32:00 Mendoza Álvarez HC COMPLETE BLD COUNT 2020-12-25 05:30:00 Mendoza Álvarez W/AUTO DIFF BASIC METABOLIC PANEL 2020-12-25 04:00:00 Mendoza Álvarez DIGOXIN LEVEL 2020-12-25 04:00:00 Gabby Shell odist ESTIMATED GFR 2020-12-25 04:00:00 Mendoza Álvarez HC COMPLETE BLD COUNT 2020-12-24 03:00:00 Mendoza Álvarez W/AUTO DIFF BASIC METABOLIC PANEL 2020-12-24 03:00:00 Mendoza Álvarez ESTIMATED GFR 2020-12-24 03:00:00 Mendoza Álvarez TROPONIN 2020-12-24 02:05:00 Mendoza Álvarez LIPID PANEL 2020-12-24 02:05:00 Mendoza Álvarez THYROID STIMULATING 2020-12-24 02:05:00 Mendoza Álvarez HORMONE T4, FREE 2020-12-24 02:05:00 Mendoza Álvarez TROPONIN 2020-12-24 00:16:00 Mendoza Álvarez ECG ED PRELIMINARY 2020-12-23 21:01:48 Dwight Williamson Mormonism INTERPRETATION TROPONIN 2020-12-23 20:22:00 Mendoza Álvarez XR CHEST 1 VW PORTABLE 2020-12-23 14:31:00 Dwight Williamson COVID-19 QUALITATIVE PCR 2020-12-23 14:14:00 Dwight Williamson HC COMPLETE BLD COUNT 2020-12-23 14:14:00 Dwight Williamson W/AUTO DIFF COMPREHENSIVE METABOLIC 2020-12-23 14:14:00 Dwight Williamson PANEL MAGNESIUM LEVEL 2020-12-23 14:14:00 Dwight Williamson PHOSPHORUS LEVEL 2020-12-23 14:14:00 Dwight Williamson B NATRIURETIC PEPTIDE 2020-12-23 14:14:00 Dwight Williamson TROPONIN 2020-12-23 14:14:00 Dwihgt Williamson VENOUS BLOOD GAS 2020-12-23 14:14:00 Dwight Williamson ESTIMATED GFR 2020-12-23 14:14:00 Dwight Williamson ECG 12-LEAD 2020-12-23 13:33:16 Dwight Williamson BASIC METABOLIC PANEL 2020-07-31 05:00:00 Denise Yoon on Mormonism [facility] HC COMPLETE BLD COUNT 2020-07-31 05:00:00 Carlisle, Denise Houst on Mormonism W/AUTO DIFF [place] ESTIMATED GFR 2020-07-31 05:00:00 Denise Yoon Met hodist [place] MAGNESIUM LEVEL 2020-07-31 05:00:00 Denise Yoon Met hodist [place] CV RIGHT HEART CATH 2020-07-30 18:32:47 SaydaHarini mobley Gal Mormonism BASIC METABOLIC PANEL 2020-07-30 03:00:00 Denise Yoon on Mormonism [place] HC COMPLETE BLD COUNT 2020-07-30 03:00:00 Denise Yoon on Mormonism W/AUTO DIFF [place] B NATRIURETIC PEPTIDE 2020-07-30 03:00:00 SaydaleandraHarini n Mormonism ESTIMATED GFR 2020-07-30 03:00:00 Harini Samson Meth odist BASIC METABOLIC PANEL 2020-07-29 02:50:00 Denise Yoon on Mormonism [place] HC COMPLETE BLD COUNT 2020-07-29 02:50:00 Denise Yoon on Mormonism W/AUTO DIFF [place] ESTIMATED GFR 2020-07-29 02:50:00 Denise Yoon Met hodist Karen HC COMPLETE BLD COUNT 2020-07-29 00:45:00 Mendoza Álvarez Mormonism W/AUTO DIFF BASIC METABOLIC PANEL 2020-07-29 00:00:00 Mendoza Álvarez ESTIMATED GFR 2020-07-29 00:00:00 Mendoza Álvarez COVID-19 QUALITATIVE PCR 2020-07-28 23:15:00 Denise Yoonist [place] HC COMPLETE BLD COUNT 2020-07-27 04:00:00 Mendoza Álvarez W/AUTO DIFF BASIC METABOLIC PANEL 2020-07-27 04:00:00 Mendoza Álvarez ESTIMATED GFR 2020-07-27 04:00:00 Mendoza Álvarez HC COMPLETE BLD COUNT 2020-07-26 04:00:00 Mendoza Álvarez W/AUTO DIFF BASIC METABOLIC PANEL 2020-07-26 04:00:00 Mendoza Álvarez ESTIMATED GFR 2020-07-26 04:00:00 Mendoza Álvarez TROPONIN 2020-07-25 02:08:00 Mendoza Álvarez BASIC METABOLIC PANEL 2020-07-25 02:08:00 Mendoza Álvarez ESTIMATED GFR 2020-07-25 02:08:00 Mendoza Álvarez HC COMPLETE BLD COUNT 2020-07-25 01:57:00 Mendoza Álvarez Mormonism W/AUTO DIFF US DUPLEX VENOUS LOWER 2020-07-24 23:48:00 Mendoza Álvarez EXTREMITY BILATERAL HC COMPLETE BLD COUNT 2020-07-24 21:30:00 Natalie Yanez Mormonism W/AUTO DIFF PROTHROMBIN TIME WITH INR 2020-07-24 21:30:00 Natalie Yanez PARTIAL THROMBOPLASTIN 2020-07-24 21:30:00 Natalie Yanez Mormonism TIME (PTT) COMPREHENSIVE METABOLIC 2020-07-24 21:30:00 Natalie Yanez Mormonism PANEL TROPONIN 2020-07-24 21:30:00 Mendoza Álvarez B NATRIURETIC PEPTIDE 2020-07-24 21:30:00 Natalie Yanez ESTIMATED GFR 2020-07-24 21:30:00 George Little Me thodist XR LUMBAR SPINE 2 OR 3 VW 2020-07-24 21:19:57 Natalie Yanez XR CHEST 1 VW PORTABLE 2020-07-24 20:41:00 Natalie Yanezist ECG ED PRELIMINARY 2020-07-24 20:25:35 George Little Mormonism INTERPRETATION ECG 12-LEAD 2020-07-24 19:58:26 George Little Me thodist HC COMPLETE BLD COUNT 2020-07-20 03:38:00 Fartun Escamilla Mormonism W/AUTO DIFF COMPREHENSIVE METABOLIC 2020-07-20 03:38:00 Fartun Escamilla Mormonism PANEL ESTIMATED GFR 2020-07-20 03:38:00 Fartun Escamilla Meth odist HEMOGLOBIN A1C 2020-07-19 06:32:00 Zach Graham Mormonism HC COMPLETE BLD COUNT 2020-07-19 06:32:00 GladysZach cruz Mormonism W/AUTO DIFF ESTIMATED GFR 2020-07-19 06:32:00 NurajosephZach Mormonism MAGNESIUM LEVEL 2020-07-19 06:32:00 Kenia Boyle Meth odist COMPREHENSIVE METABOLIC 2020-07-19 06:32:00 Escamilla Fartun Maryellen Hous ton Mormonism PANEL BASIC METABOLIC PANEL 2020-07-18 22:30:00 Mone Caballero Chen fabby Mormonism MAGNESIUM LEVEL 2020-07-18 22:30:00 Mone Caballero Me thodist ESTIMATED GFR 2020-07-18 22:30:00 Mone Caballero Me thodist TROPONIN, I-STAT 2020-07-18 19:34:00 Roland Fartun Maryellen Santo Met hodist TTE LIMITED W CONTRAST, W 2020-07-18 16:55:43 Marianne Aguirre Mormonism DOPPLER ([id number]) Heap ECG 12-LEAD 2020-07-18 15:35:35 Charles Carlos De thodist COVID-19 QUALITATIVE PCR 2020-07-18 14:01:00 Roland Fartun Maryellen Lori eduardo Mormonism TROPONIN 2020-07-18 14:01:00 Escamilla Fartun Maryellen Santo Meth odist POC GLUCOSE 2020-07-18 13:50:00 Roland Fartun Maryellen [place] Meth odist XR CHEST 1 VW PORTABLE 2020-07-18 13:04:59 Charles Carlos HC COMPLETE BLD COUNT 2020-07-18 12:00:00 Charles Carlos Mormonism W/AUTO DIFF COMPREHENSIVE METABOLIC 2020-07-18 12:00:00 Charles Carlos PANEL TROPONIN 2020-07-18 12:00:00 Charles Carlos Me thodist B NATRIURETIC PEPTIDE 2020-07-18 12:00:00 Charles Carlos PARTIAL THROMBOPLASTIN 2020-07-18 12:00:00 Charles Carlos TIME (PTT) PROTHROMBIN TIME WITH INR 2020-07-18 12:00:00 Charles Carlos ESTIMATED GFR 2020-07-18 12:00:00 Charles Carlos Me thodist ME CRITICAL CARE, E/M 2020-07-18 11:58:19 Charles Carlos Mormonism 30-74 MINUTES ECG ED PRELIMINARY 2020-07-18 11:58:19 Charles Carlos INTERPRETATION ECG 12-LEAD 2020-07-18 11:46:49 Zach Graham HC COMPLETE BLD COUNT 2020-07-02 04:34:00 Betsey Olivo Mormonism W/AUTO DIFF BASIC METABOLIC PANEL 2020-07-02 04:34:00 Betsey Olivo Mormonism MAGNESIUM LEVEL 2020-07-02 04:34:00 Betsey Olivo ESTIMATED GFR 2020-07-02 04:34:00 Betsey Olivo HC COMPLETE BLD COUNT 2020-07-01 14:27:00 Sandro Lopez Mormonism W/AUTO DIFF Mario HC COMPLETE BLD COUNT 2020-07-01 03:50:00 CaroSandro Forman Mormonism W/AUTO DIFF Mario COMPREHENSIVE METABOLIC 2020-07-01 03:50:00 CaroSandro Forman Mormonism PANEL Mario MAGNESIUM LEVEL 2020-07-01 03:50:00 [facility] Mario ESTIMATED GFR 2020-07-01 03:50:00 Caro[facility]Bailey [facility] Mario TROPONIN 2020-06-30 11:20:00 Caro-Bailey[facility] Mario TROPONIN 2020-06-30 08:30:00 [facility] COVID-19 QUALITATIVE PCR 2020-06-30 06:10:00 Anton Quintero Mormonism BASIC METABOLIC PANEL 2020-06-30 04:56:00 Anton Quintero Mormonism TROPONIN 2020-06-30 04:56:00 [facility] NAT[facility] 2020-06-30 04:56:00 Anton Quintero Mormonism HC COMPLETE BLD COUNT 2020-06-30 04:56:00 Anton Quintero Mormonism W/AUTO DIFF ESTIMATED GFR 2020-06-30 04:56:00 QuinteroAnton Meth odist XR CHEST 1 VW 2020-06-30 04:51:15 Leon Antonjaleel Santo Meth odist ECG 12-LEAD 2020-06-30 04:42:00 Sandro Lopez ethodist Mario BASIC METABOLIC PANEL 2020-06-26 03:05:00 Harry Carrillo Mormonism HC COMPLETE BLD COUNT 2020-06-26 03:05:00 Betsey Olivo Mormonism W/AUTO DIFF MAGNESIUM LEVEL 2020-06-26 03:05:00 Betsey Olivo Mormonism ESTIMATED GFR 2020-06-26 03:05:00 Betsey Olivo Mormonism BASIC METABOLIC PANEL 2020-06-25 04:29:00 Harry Carrillo Mormonism THYROID STIMULATING 2020-06-25 04:29:00 Harry Carrillo Mormonism HORMONE T4, FREE 2020-06-25 04:29:00 Harry Carrillo on Mormonism T3 2020-06-25 04:29:00 Harry Carrillo on Mormonism ESTIMATED GFR 2020-06-25 04:29:00 Harry Carrillo on Mormonism BASIC METABOLIC PANEL 2020-06-24 10:15:00 Harry Carrillo Mormonism MAGNESIUM LEVEL 2020-06-24 10:15:00 Harry Carrillo on Mormonism PHOSPHORUS LEVEL 2020-06-24 10:15:00 Harry Carrillo Mormonism ESTIMATED GFR 2020-06-24 10:15:00 Harry Carrillo on Mormonism TROPONIN 2020-06-24 00:45:00 Mireille Sanhryn Gal Meth odist TROPONIN 2020-06-23 21:49:00 MenaJayashree Meth odist COVID-19 QUALITATIVE PCR 2020-06-23 19:48:00 Theron Otero URINALYSIS SCREEN AND 2020-06-23 19:19:00 Theron Otero on Mormonism MICROSCOPY, WITH REFLEX TO CULTURE HC COMPLETE BLD COUNT 2020-06-23 19:19:00 Waldo Rawls Mormonism W/AUTO DIFF B NATRIURETIC PEPTIDE 2020-06-23 19:19:00 Waldo Rawls Mormonism XR CHEST 1 VW PORTABLE 2020-06-23 18:54:50 Theron Otero Mormonism COMPREHENSIVE METABOLIC 2020-06-23 18:46:00 Theron Otero Mormonism PANEL TROPONIN 2020-06-23 18:46:00 MenaJayashree Gal Simmons odist ESTIMATED GFR 2020-06-23 18:46:00 Theron Otero Met hodist ECG ED PRELIMINARY 2020-06-23 18:34:13 Waldo Rawls on Mormonism INTERPRETATION ECG 12-LEAD 2020-06-23 18:31:33 MenaMireilleJayashree Gal Meth odist BASIC METABOLIC PANEL 2020-06-05 04:32:00 Gabby Shell Mormonism ESTIMATED GFR 2020-06-05 04:32:00 Gabby Shell Meth odist BASIC METABOLIC PANEL 2020-06-03 04:30:00 Gabby Shell n Mormonism ESTIMATED GFR 2020-06-03 04:30:00 Gabby Shell Meth odist BASIC METABOLIC PANEL 2020-06-02 04:23:00 Gabby Shellto n Mormonism ESTIMATED GFR 2020-06-02 04:23:00 Gabby Shell Meth odist BASIC METABOLIC PANEL 2020-06-01 04:28:00 Elissa Johansenist B NATRIURETIC PEPTIDE 2020-06-01 04:28:00 Gabby Shell n Mormonism ESTIMATED GFR 2020-06-01 04:28:00 Gabby Shell Meth odist HC COMPLETE BLD COUNT 2020-05-30 05:00:00 Mendoza Álvarez W/AUTO DIFF BASIC METABOLIC PANEL 2020-05-30 05:00:00 Mendoza Álvarez B NATRIURETIC PEPTIDE 2020-05-30 05:00:00 Gabby Shell ESTIMATED GFR 2020-05-30 05:00:00 Gabby Shell odann HC COMPLETE BLD COUNT 2020-05-29 04:45:00 Mendoza Álvarez W/AUTO DIFF BASIC METABOLIC PANEL 2020-05-29 04:00:00 Mendoza Álvarez ESTIMATED GFR 2020-05-29 04:00:00 Mendoza Álvarez POTASSIUM LEVEL 2020-05-28 12:20:00 Elsa Alvarado BASIC METABOLIC PANEL 2020-05-28 04:00:00 Mendoza Álvarez ESTIMATED GFR 2020-05-28 04:00:00 Mendoza Álvarez TROPONIN 2020-05-28 04:00:00 Mendoza Álvarez HC COMPLETE BLD COUNT 2020-05-28 03:50:00 Mendoza Álvarez W/AUTO DIFF LIPID PANEL 2020-05-28 02:52:00 Mendoza Álvarez THYROID STIMULATING 2020-05-28 02:52:00 Mendoza Álvarez HORMONE T4, FREE 2020-05-28 02:52:00 Mendoza Álvarez TROPONIN 2020-05-28 01:40:00 Mendoza Álvarez BLOOD CULTURE, AEROBIC & 2020-05-27 22:35:00 Dwight Williamson ANAEROBIC COVID-19 QUALITATIVE PCR 2020-05-27 22:35:00 Dwight Williamson BLOOD CULTURE, AEROBIC & 2020-05-27 22:25:00 Dwight Williamson ANAEROBIC HC COMPLETE BLD COUNT 2020-05-27 22:25:00 Dwight Williamson W/AUTO DIFF PROTHROMBIN TIME WITH INR 2020-05-27 22:25:00 Dwight Williamson PARTIAL THROMBOPLASTIN 2020-05-27 22:25:00 Dwight Williamson TIME (PTT) COMPREHENSIVE METABOLIC 2020-05-27 22:25:00 Dwight Williamson PANEL PHOSPHORUS LEVEL 2020-05-27 22:25:00 Dwight Williamson Mormonism MAGNESIUM LEVEL 2020-05-27 22:25:00 Dwight Williamson TROPONIN 2020-05-27 22:25:00 Mendoza Álvarez B NATRIURETIC PEPTIDE 2020-05-27 22:25:00 Dwight Williamson VENOUS BLOOD GAS 2020-05-27 22:25:00 Dwight Williamson ESTIMATED GFR 2020-05-27 22:25:00 Dwight Williamson XR CHEST 1 VW PORTABLE 2020-05-27 22:20:52 Dwight Williamson ECG ED PRELIMINARY 2020-05-27 22:06:10 Dwight Williamson Mormonism INTERPRETATION ECG 12-LEAD 2020-05-27 22:02:07 Dwight Williamson BASIC METABOLIC PANEL 2020-05-09 05:00:00 Chen Redd Mormonism Iadara Tran HC COMPLETE BLD COUNT 2020-05-09 05:00:00 Chen Redd Mormonism W/AUTO DIFF Iadara Tran ESTIMATED GFR 2020-05-09 05:00:00 Gal Redd De thodist Iadara Tran US ANKLE BRACHIAL INDEX 2020-05-08 17:32:00 Nicolás Conteh ECG 12-LEAD 2020-05-08 12:42:59 Lee Ann León De lexie Mcmahon BASIC METABOLIC PANEL 2020-05-08 04:20:00 Chen Redd Iadara Tran HC COMPLETE BLD COUNT 2020-05-08 04:20:00 Chen Redd Mormonism W/AUTO DIFF Iadara Tran MAGNESIUM LEVEL 2020-05-08 04:20:00 Lee Ann León Me lexie Mcmahon ESTIMATED GFR 2020-05-08 04:20:00 Jazmín ChaseGal De thodist Iadara Tran BASIC METABOLIC PANEL 2020-05-07 13:30:00 Janet Delacruz Tracy ESTIMATED GFR 2020-05-07 13:30:00 Janet Delacruz Me thodist Tracy CONSULT TO OSTOMY CARE 2020-05-07 13:06:19 Lee Ann León NURSE Lisandro US DUPLEX VENOUS LOWER 2020-05-07 10:30:00 Janet Delacruz EXTREMITY RIGHT Tracy TTE LIMITED W CONTRAST, W 2020-05-07 09:04:00 Janet Delacruz DOPPLER ([id number]) Tracy POC GLUCOSE 2020-05-07 07:43:00 Lee Ann León De aliyaodist Lisandro BASIC METABOLIC PANEL 2020-05-07 03:49:00 Chen Redd Iadara Tran HC COMPLETE BLD COUNT 2020-05-07 03:49:00 Chen Redd W/AUTO DIFF Iadara Tran PHOSPHORUS LEVEL 2020-05-07 03:49:00 Tim Donnelly MAGNESIUM LEVEL 2020-05-07 03:49:00 Tim Donnelly ESTIMATED GFR 2020-05-07 03:49:00 Tim Donnelly URINALYSIS, AUTOMATED 2020-05-07 02:38:00 Tim Donnelly WITH MICROSCOPY SODIUM LEVEL, URINE, 2020-05-07 02:38:00 Tim Donnelly RANDOM CREATININE LEVEL, URINE, 2020-05-07 02:38:00 Iwona Donnelly RANDOM BLOOD CULTURE, AEROBIC & 2020-05-06 23:25:00 Janet Delacruz ANAEROBIC Tracy BLOOD CULTURE, AEROBIC & 2020-05-06 23:10:00 Janet Delacruz ANAEROBIC Tracy LACTIC ACID LEVEL 2020-05-06 23:10:00 Comiskey, Janet Santo Mormonism Tracy PROTHROMBIN TIME WITH INR 2020-05-06 23:10:00 JoséJanet blair Mormonism Tracy D-DIMER 2020-05-06 23:10:00 JoséJanet blair Me thodist Tracy POC GLUCOSE 2020-05-06 20:07:00 Lee Ann León Me thodist Lisandro US RENAL 2020-05-06 19:26:42 Tim Donnelly Mormonism COVID-19 QUALITATIVE PCR 2020-05-06 18:32:00 DeysivenancioJanet Tracy URIC ACID LEVEL 2020-05-06 18:32:00 Tim Donnelly LACTIC ACID LEVEL 2020-05-06 18:32:00 Janet Delacruz Tracy PROCALCITONIN 2020-05-06 18:32:00 DeysiJanet craft Me thodist Tracy CREATINE KINASE, TOTAL 2020-05-06 16:47:00 Mena Rose Mormonism (CPK) Mikayla Prater TROPONIN 2020-05-06 16:47:00 Kishore Elias Me thodist BASIC METABOLIC PANEL 2020-05-06 16:47:00 Mena Rose on Daria Prater PROTHROMBIN TIME WITH INR 2020-05-06 16:47:00 Mena Rose PARTIAL THROMBOPLASTIN 2020-05-06 16:47:00 Mena Rose Mormonism TIME (PTT) Mikayla Prater ESTIMATED GFR 2020-05-06 16:47:00 Mena Rose Met trina Prater CT HEAD WO CONTRAST 2020-05-06 16:43:[address] LUMBAR SPINE WO 2020-05-06 16:38:51 Mena Rose CONTRAST Mikayla Prater CT CERVICAL SPINE WO 2020-05-06 16:38:31 Mena Rose Mormonism CONTRAST Mikayla Prater CT MAXILLOFACIAL WO 2020-05-06 16:38:11 Mena Rose CONTRAST Mikayla Prater HC COMPLETE BLD COUNT 2020-05-06 15:13:00 Kishore Elias Mormonism W/AUTO DIFF COMPREHENSIVE METABOLIC 2020-05-06 15:13:00 Kishore Elias Mormonism PANEL B NATRIURETIC PEPTIDE 2020-05-06 15:13:00 Kishore Elias Mormonism ESTIMATED GFR 2020-05-06 15:13:00 Kishore Elias De thodist TROPONIN, I-STAT 2020-05-06 15:13:00 Kishore Elias M ethodist XR CHEST 1 VW PORTABLE 2020-05-06 15:07:09 Kishore Elias ston Mormonism ECG 12-LEAD 2020-05-06 14:55:25 Kishore Elias De thodist COVID-19 QUALITATIVE PCR 2020-04-28 10:24:00 Fabiola Elliott Mormonism HEMOGLOBIN A1C 2020-04-28 03:19:00 Harry Carrillo on Mormonism CBC HEMOGRAM 2020-04-28 03:19:00 Harry Carrillo on Mormonism COMPREHENSIVE METABOLIC 2020-04-28 03:19:00 Harry Carrillo Mormonism PANEL MAGNESIUM LEVEL 2020-04-28 03:19:00 Harry Carrillo on Mormonism PHOSPHORUS LEVEL 2020-04-28 03:19:00 Harry Carrillo Mormonism ESTIMATED GFR 2020-04-28 03:19:00 Harry Carrillo on Mormonism CBC WITH PLATELET AND 2020-04-27 03:19:00 Lee Ann León Mormonism DIFFERENTIAL Lisandro BASIC METABOLIC PANEL 2020-04-27 03:19:00 Lee Ann León Mormonism Lisandro MAGNESIUM LEVEL 2020-04-27 03:19:00 Lee Ann León De thodist Lisandro PHOSPHORUS LEVEL 2020-04-27 03:19:00 Lee Ann León M ethodist Lisandro C-REACTIVE PROTEIN 2020-04-27 03:19:00 Yoanna Schroederist D-DIMER 2020-04-27 03:19:00 Yoanna Schroeder M ethodist LDH 2020-04-27 03:19:00 Yoanna Schroeder ethodist LACTIC ACID LEVEL 2020-04-27 03:19:00 Yoanna Schroeder Mormonism INTERLEUKIN 6 2020-04-27 03:19:00 Yoanna Schroeder ethodist FERRITIN LEVEL 2020-04-27 03:19:00 Yoanna Schroeder ethodist ESTIMATED GFR 2020-04-27 03:19:00 Nakul Lee Annfelisha Santo De thodist Lisandro XR CHEST 1 VW PORTABLE 2020-04-26 07:39:14 Irene Caro on Mormonism HC COMPLETE BLD COUNT 2020-04-26 03:22:00 Lee Ann León Mormonism W/AUTO DIFF Lisandro BASIC METABOLIC PANEL 2020-04-26 03:22:00 Lee Ann León Mormonism Lisandro MAGNESIUM LEVEL 2020-04-26 03:22:00 Lee Ann León Me thodist Lisandro PHOSPHORUS LEVEL 2020-04-26 03:22:00 Lee Ann León Javon ethodist Lisandro ESTIMATED GFR 2020-04-26 03:22:00 Lee Ann León Me thodist Lisandro STREPTOCOCCUS PNEUMONIAE 2020-04-25 05:35:00 Lee Ann León Mormonism URINARY ANTIGEN Lisandro LEGIONELLA URINARY 2020-04-25 05:35:00 Lee Ann León Mormonism ANTIGEN Lisandro PROCALCITONIN 2020-04-25 05:35:00 Lee Ann León Me thodist Lisandro HC COMPLETE BLD COUNT 2020-04-25 05:35:00 Lee Ann León Mormonism W/AUTO DIFF Lisandro BASIC METABOLIC PANEL 2020-04-25 05:35:00 Lee Ann León Mormonism Lisandro MAGNESIUM LEVEL 2020-04-25 05:35:00 Lee Ann León Me thodist Lisandro PHOSPHORUS LEVEL 2020-04-25 05:35:00 Lee Ann León Javon ethodist Lisandro ESTIMATED GFR 2020-04-25 05:35:00 Lee Ann León CONSULT TO OSTOMY CARE 2020-04-25 03:55:48 Harry Carrillo NURSE RESPIRATORY PATHOGEN 2020-04-24 13:19:00 Lee Ann León on Mormonism PANEL WITH COVID-19 Lisandro INFLUENZA ANTIGEN 2020-04-24 13:19:00 Lee Ann León TROPONIN 2020-04-24 13:19:00 Carlene Eduardo TROPONIN 2020-04-24 09:51:00 Carlene Eduardo XR CHEST 1 VW PORTABLE 2020-04-24 07:46:[address] ANGIOGRAM PE CHEST 2020-04-24 07:43:[address] ABDOMEN PELVIS W 2020-04-24 07:43:35 Chris Prado CONTRAST HC COMPLETE BLD COUNT 2020-04-24 06:20:00 Carlene Eduardo W/AUTO DIFF Luis A COMPREHENSIVE METABOLIC 2020-04-24 06:20:00 Carlene Eduardo Mormonism EMILY Gunn TROPONIN 2020-04-24 06:20:00 Carlene Eduardo B NATRIURETIC PEPTIDE 2020-04-24 06:20:00 Carlene Eduardo ESTIMATED GFR 2020-04-24 06:20:00 Carlene Eduardo SMEAR REVIEW 2020-04-24 06:20:00 Carlene Eduardo ECG 12-LEAD 2020-04-24 06:03:19 Mendoza Álvarez XR CHEST 1 VW PORTABLE 2020-04-15 12:10:14 Annette Tucker ECG 12-LEAD 2020-04-15 12:06:23 Annette Tucker COVID-19 QUALITATIVE PCR 2020-04-15 11:24:00 Annette Tucker BASIC METABOLIC PANEL 2020-04-15 11:24:00 Annette Tucker HC COMPLETE BLD COUNT 2020-04-15 11:24:00 Annette Tucker W/AUTO DIFF PROTHROMBIN TIME WITH INR 2020-04-15 11:24:00 Annette Tucker PARTIAL THROMBOPLASTIN 2020-04-15 11:24:00 Annette Tucker TIME (PTT) TROPONIN 2020-04-15 11:24:00 Annette Tuckerodist B NATRIURETIC PEPTIDE 2020-04-15 11:24:00 Annette Tucker ESTIMATED GFR 2020-04-15 11:24:00 Annette Tuckerst ME CRITICAL CARE, E/M 2020-04-15 11:06:44 Annette Tucker 30-74 MINUTES ECG ED PRELIMINARY 2020-04-15 11:06:44 Annette Tucker INTERPRETATION URINE CULTURE 2020-04-15 10:33:00 Mary Howell Meth odann URINALYSIS SCREEN AND 2020-04-15 10:33:00 Mary Howell MICROSCOPY, WITH REFLEX TO CULTURE HC COMPLETE BLD COUNT 2020-04-12 05:28:00 Mendoza Álvarez W/AUTO DIFF BASIC METABOLIC PANEL 2020-04-12 05:28:00 Mendoza Álvarez ESTIMATED GFR 2020-04-12 05:28:00 Mendoza Álvarez B NATRIURETIC PEPTIDE 2020-04-10 05:30:00 Gabby Shell BASIC METABOLIC PANEL 2020-04-10 04:00:00 Mendoza Álvarez ESTIMATED GFR 2020-04-10 04:00:00 Mendoza Álvarez B NATRIURETIC PEPTIDE 2020-04-09 14:30:00 Gabby Shell B NATRIURETIC PEPTIDE 2020-04-09 10:13:00 Mendoza Álvarez BASIC METABOLIC PANEL 2020-04-09 04:00:00 Mendoza Álvarez ESTIMATED GFR 2020-04-09 04:00:00 Mendoza Álvarez HEMOGLOBIN & HEMATOCRIT 2020-04-08 05:27:00 Mendoza Álvarez BASIC METABOLIC PANEL 2020-04-08 04:00:00 Mnedoza Álvarez ESTIMATED GFR 2020-04-08 04:00:00 Mendoza Álvarez HC COMPLETE BLD COUNT 2020-04-07 04:25:00 Mendoza Álvarez W/AUTO DIFF BASIC METABOLIC PANEL 2020-04-07 04:25:00 Mendoza Álvarez ESTIMATED GFR 2020-04-07 04:25:00 Mendoza Álvarez HC COMPLETE BLD COUNT 2020-04-06 05:00:00 Mendoza Álvarez W/AUTO DIFF BASIC METABOLIC PANEL 2020-04-06 05:00:00 Mendoza Álvarez ESTIMATED GFR 2020-04-06 05:00:00 Mendoza Álvarez HC COMPLETE BLD COUNT 2020-04-05 06:15:00 Mendoza Álvarez W/AUTO DIFF BASIC METABOLIC PANEL 2020-04-05 04:00:00 Mendoza Álvarez ESTIMATED GFR 2020-04-05 04:00:00 Mendoza Álvarez LACTIC ACID LEVEL, SEPSIS 2020-04-04 19:09:00 Bryan Qureshi - NOW AND REPEAT 2X EVERY 3 HOURS TROPONIN 2020-04-04 19:09:[address] CHEST W CONTRAST 2020-04-04 15:44:19 Bryan Qureshi ABDOMEN W CONTRAST PELVIS W CONTRAST URINE CULTURE 2020-04-04 14:47:00 Bryan Qureshi URINALYSIS SCREEN AND 2020-04-04 14:47:00 Bryan Qureshi MICROSCOPY, WITH REFLEX TO CULTURE BLOOD CULTURE, AEROBIC & 2020-04-04 14:00:00 Bryan Qureshi ANAEROBIC COVID-19 QUALITATIVE PCR 2020-04-04 14:00:00 Bryan Qureshi HC COMPLETE BLD COUNT 2020-04-04 14:00:00 Bryan Qureshi W/AUTO DIFF PROTHROMBIN TIME WITH INR 2020-04-04 14:00:00 Bryan Qureshi PARTIAL THROMBOPLASTIN 2020-04-04 14:00:00 Bryan Qureshi TIME (PTT) COMPREHENSIVE METABOLIC 2020-04-04 14:00:00 Bryan Qureshi PANEL LACTIC ACID LEVEL, SEPSIS 2020-04-04 14:00:00 Bryan Qureshi - NOW AND REPEAT 2X EVERY 3 HOURS LIPASE LEVEL 2020-04-04 14:00:00 Bryan Qureshi TROPONIN 2020-04-04 14:00:00 Mendoza Álvarez B NATRIURETIC PEPTIDE 2020-04-04 14:00:00 Bryan Qureshi ESTIMATED GFR 2020-04-04 14:00:00 Bryan Qureshi ECG ED PRELIMINARY 2020-04-01 12:21:00 Eric Zabala INTERPRETATION HC COMPLETE BLD COUNT 2020-04-01 02:00:00 Jimbo Swenson W/AUTO DIFF BASIC METABOLIC PANEL 2020-04-01 02:00:00 Jimbo Swenson ESTIMATED GFR 2020-04-01 02:00:00 Jimbo Swenson Meth odist POTASSIUM LEVEL 2020-03-31 12:00:00 Felecia Washburn on [employer]ism BASIC METABOLIC PANEL 2020-03-31 03:11:00 Gabby Shell ESTIMATED GFR 2020-03-31 03:11:00 Gabby Shell Meth odist MAGNESIUM LEVEL 2020-03-31 03:11:00 Gabby Shell Meth odist HC COMPLETE BLD COUNT 2020-03-31 02:48:00 Jimbo Swenson W/AUTO DIFF XR CHEST 1 VW PORTABLE 2020-03-30 08:35:00 Gabby Shell HC COMPLETE BLD COUNT 2020-03-30 05:00:00 Jimbo Swenson W/AUTO DIFF BASIC METABOLIC PANEL 2020-03-30 04:00:00 Gabby Shell Mormonism MAGNESIUM LEVEL 2020-03-30 04:00:00 ElenoElissa franco Gal Huff ESTIMATED GFR 2020-03-30 04:00:00 Gabby Shell odann BASIC METABOLIC PANEL 2020 03:00:00 Gabby Shell ESTIMATED GFR 2020 03:00:00 Gabby Shell odist B NATRIURETIC PEPTIDE 2020 02:05:00 Gabby Shell [employer]ism BASIC METABOLIC PANEL 2020-03-28 02:34:00 Gabby Shell [employer]ism ESTIMATED GFR 2020-03-28 02:34:00 Gabby Shell odist B NATRIURETIC PEPTIDE 2020-03-28 01:40:00 Gabby Shell [employer]ism BASIC METABOLIC PANEL 2020-03-27 02:49:00 Gabby Shell [employer]ism MAGNESIUM LEVEL 2020-03-27 02:49:00 ElenoElissa francoedita Huff PHOSPHORUS LEVEL 2020-03-27 02:49:00 ElenoElissa franco Eddie lamar Mormonism ESTIMATED GFR 2020-03-27 02:49:00 Gabby Shell odist B NATRIURETIC PEPTIDE 2020-03-27 01:45:00 Gabby Shell [employer]ism BASIC METABOLIC PANEL 2020-03-26 03:48:00 Gabby Shell [employer]ism ESTIMATED GFR 2020-03-26 03:48:00 Gabby Shell odist B NATRIURETIC PEPTIDE 2020-03-26 02:20:00 Gabby Shell [employer]ism BASIC METABOLIC PANEL 2020-03-25 02:56:00 Mendoza Álvarez ESTIMATED GFR 2020-03-25 02:56:00 Mendoza Álvarez HC COMPLETE BLD COUNT 2020-03-25 01:45:00 Mendoza Álvarez W/AUTO DIFF HC COMPLETE BLD COUNT 2020-03-24 05:20:00 Mendoza Álvarez W/AUTO DIFF BASIC METABOLIC PANEL 2020-03-24 05:20:00 Mendoza Álvarez MAGNESIUM LEVEL 2020-03-24 05:20:00 HilliardFran Gal Met trina Calderon PHOSPHORUS LEVEL 2020-03-24 05:20:00 BabakIlyaluda Santo [facility]odist [place] ESTIMATED GFR 2020-03-24 05:20:00 Mendoza Álvarez ECG 12-LEAD 2020-03-23 22:58:51 HilliardFran worley Santo Met trina Calderon BASIC METABOLIC PANEL 2020-03-23 02:52:00 Mendoza Álvarez ESTIMATED GFR 2020-03-23 02:52:00 Mendoza Álvarez HC COMPLETE BLD COUNT 2020-03-23 02:30:00 Mendoza Álvarez W/AUTO DIFF TROPONIN 2020-03-22 23:57:00 Mendoza Álvarez TROPONIN 2020-03-22 23:30:00 Mendoza Álvarez TROPONIN 2020-03-22 20:20:00 Mendoza Álvarez HC COMPLETE BLD COUNT 2020-03-22 20:19:00 Eric Zabala W/AUTO DIFF COMPREHENSIVE METABOLIC 2020-03-22 20:19:00 Eric Zabala PANEL B NATRIURETIC PEPTIDE 2020-03-22 20:19:00 Eric Zabala ESTIMATED GFR 2020-03-22 20:19:00 Eric Zabala Me thodist ECG 12-LEAD 2020-03-22 18:29:59 Eric Zabala Me thodist XR CHEST 2 VW 2020-03-22 18:27:59 Eric Zabala [facility] Plan of Care Planned Activity Planned Date Details Comments Source Future Scheduled 2021-05-04 INFLUENZA VACCINE Willis lamar [facility] Test 00:00:00 [code = INFLUENZA VACCINE] Future Scheduled 1989 Hepatitis C Gal [facility] Test 00:00:00 screening (procedure) [code = 011432773] Future Scheduled 1987 COVID-19 VACCINE (1) Lori eduardo [facility] Test 00:00:00 [code = COVID-19 VACCINE (1)] Encounters Start End Encounter Admission Attending Care Care Encounter Source Date/Time Date/Time Type Type Clinicians Facility Department ID 2021-01-12 2021-01-16 Inpatient HENRI, [facility] 064 [id number] [place] 00:00:00 00:00:00 MENDOZA [address] 2020-12-23 2020-12-31 Inpatient HENRI, [facility] 064 [id number] [place] 00:00:00 00:00:00 MENDOZA [address] 2020-07-24 2020-07-31 Inpatient HENRI, [facility] 064 [id number] [place] 00:00:00 00:00:00 MENDOZA [address] 2020-07-18 2020-07-20 Inpatient METHU, [facility] 271 [id number] 738 [place] 00:00:00 00:00:00 KENIA [address] 2020-06-30 2020-07-02 Inpatient AWOBOKUN, [facility] 064 [id number] [place] 00:00:00 00:00:00 OLUYEMISI [address] 2020-06-23 2020-06-26 Inpatient OVASAPIANS, [facility] 064 [id number] [place] 00:00:00 00:00:00 NAVASARD [address] 2020-05-27 2020-06-05 Inpatient HENRI, [facility] 064 [id number] 7875 [place] 00:00:00 00:00:00 MENDOZA [address] 2020-05-06 2020-05-09 Inpatient NAKUL, [facility] 012 [id number] 60 [place] 00:00:00 00:00:00 LEE ANN [address] 2020-04-24 2020-04-29 Inpatient AWOBOKUN, [facility] 064 [id number] [place] 00:00:00 00:00:00 OLUYEMISI [address] 2020-04-15 2020-04-15 Emergency TUCKER, [facility] 364 [id number] 521 [place] 00:00:00 00:00:00 ANNETTE [address] 2020-04-04 2020-04-12 Inpatient HENRI, [facility] 060 [id number] [place] 00:00:00 00:00:00 MENDOZA [address] 2020-03-22 2020-04-01 Inpatient SAMDAPHNEY, [facility] 064 [id number] 81 [place] 00:00:00 00:00:00 JIMBO [address] 2020-01-24 2020-01-27 Inpatient HENRI, [facility] 064 [id number] [place] 00:00:00 00:00:00 MENDOZA [address] 2019-12-20 2019-12-26 Inpatient HENRI, [facility] 064 [id number] [place] 00:00:00 00:00:00 MENDOZA [address] 2019-11-27 2019-11-27 Outpatient ATTAR, [facility] [id number] 477 [place] 00:00:00 00:00:00 MOHAMMED [address] 2019-11-27 2019-11-27 Outpatient ATTAR, [facility] [id number] 482 [place] 00:00:00 00:00:00 MOHAMMED [address] 2019-11-12 2019-11-21 Inpatient HENRI, [facility] 012 [id number] [place] 00:00:00 00:00:00 MENDOZA [address] 2019-10-28 2019-11-03 Inpatient HENRI, [facility] 012 [id number] [place] 00:00:00 00:00:00 MENDOZA [address] 2019-10-12 2019-10-27 Inpatient HENRI, [facility] 060 [id number] [place] 00:00:00 00:00:00 MENDOZA [address] 2019-08-31 2019-09-03 Inpatient ÓSCAR, [facility] [id number] 036 [place] 00:00:00 00:00:00 JOSE A [address] 2019-05-15 2019-05-15 Telephone [facility] [id number] 00:00:00 00:00:00 [facility] [id number] [facility] [id number] Results Test Description Test Time Test Results Result Source Comments Comments Transthoracic 2021-01-02 Interface, Radiology [facility] Echocardiogram 5 Results In - Methodis t Complete, (w 13:58:00 01/16/2021 1:59 PM Contrast, Strain CDTFormatting of and 3D if needed) this note might be different from the original. Echocardiography Report [id number] [facility], [facility], [place] [address] Pat.Name: BRETT DANA CORTÉSNE Pat.ID: [id number] .Date: 01/16/2021 Refer.MD: MENDOZA ÁLVAREZ MD Exam Time: 7:23:00 AM Study Type:Routine Echo Height: 75in Weight: 365.36lb BSA: 2.84 m2 Age: 7 1970,50Y Sex: MALE BP: 113/76 HR: 85 bpm Sonogrphr: CYDNEY [place] Pat. Stat.:Inpatient Room: [facility] Study Status:Final Echo Event ID:[id number] Order ID: [id number] Reason for Study:HF; initial eval with symptomsHistory / Clinical:Chest Pain, Congestive Heart FailureProcedures: 2D Echo, Colorflow Doppler, Intravenous Definity ContrastRace: C SUM ELSA: -LV EF is severely depressed.RV systolic function is moderately to severely depressed.Moderate to severe mitral regurgitation. If clinically indicated,ANN/CMR imaging may be helpful. ----FINDINGS:------- ---------LV: LV size is severely enlarged. There is severe eccentric LV hypertrophy. Biplane LV ejection fraction= 21% Reduced average LV global longitudinal strain at -1.4%. LV EF is severely depressed. Global hypokinesis.RV: RV size is enlarged. A catheter or pacemaker wire is seen in the RV. RV systolic function is moderately to severely depressed. LA: LA volume is moderately enlarged.RA: RA volume is mildly enlarged.AO: Aortic root diameter is normal.NESSA: No pericardial effusion.AV: No structural AV abnormalities noted.MV: No structural MV abnormalities noted. Moderate to severe mitral regurgitation. Etiology of MR is secondary to LV dysfunction and remodeling. Eccentric mitral regurgitant jet directed laterally. Estimated regurgitant fraction is 52 %. Estimated regurgitant volume is 41 ml. If clinically indicated, ANN imaging may be helpful.PV: No structural PV abnormalities noted.TV: No structural TV abnormalities noted. Mild tricuspid regurgitation Gonzalez: LV filling pressure is elevated. Hepatic vein pressure is elevated, RA pressure 15-20mmHg.Other: Insufficient TR jet to estimate PA systolic pressure. -----MEASUREMENTS:-- 2DParasternal Long [place] Ao An 3 cm LVPWd 1 cm Ao Rtd 4.5 cm Index 1.6 cm/m2 LA Ds 5.6 cm IVSd 1.2 cm RWT 0.2 LVIDd 8.6 cm Index 3 cm/m2 LV Mass 519.5 g (122-174) LVIDs 7.4 cm LVM Index 182.9 g/m2 LV%fs 14 % LVOT 2.7 cm LV EF Biplane LVEDV 373.9 ml (65-193) Index 131.7 ml/m2 LV CI 2.4 l/m/m2 LVESV 295.5 ml Index 104.1 ml/m2 LV SV 78.4 ml LV EF 21 % (63-77) HR 88 bpm LV CO 6.9 l/min LA Sng Plane LA Area 32.9 cm2 (8.8-23.4) LA Vol 126.7 ml Index 44.6 ml/m2 LA LngAx 7.2 cm RA Sng Plane RA Vol 113.7 ml Index 40 ml/m2 RA LngAx 6.7 cm RA Area 30.1 cm2 (8.3-19.5)LVOT LVOT Area 5.7 cm2 DOPPLERMV PISA MV Flw 186.8 cc/s MV ERO 0.5 cm2 MV pkVel 347.1 cm/s MV AliasVel 39.4 cm/s MV RgVol 49.7 cc MV PISA rad 0.9 cm Stroke Vol & Cardiac Out HR 89 bpm SV 37.6 ml irene 2.7 cm CO 3.3 l/min TVI 6.6 cm CI 1.2 l/m/m2 Tm 201 msec Signed 01/16/2021 01:58 Meseret Pate M.D. XR Lumbar Spine 2 2021-01-02 Interface, [place] Or 3 Vw [address] 20:06:58 Incoming - 01/15/2021 8:10 PM CDT EXAMINATION : XR LUMBAR SPINE 2 OR 3 VWCLINICAL HISTORY: Low back pain > 6 wksCOMPARISON: Lumbar spine radiograph 07/24/2020IMPRESSION :3 views were obtained.No displaced fracture. No subluxation. No suspicious osseous abnormalities.Mild to moderate disc height loss at L4-5 and moderate to severe disc height loss at L5-S1 with vacuum clefts and endplate sclerosis. Small anterior endplate osteophytes throughout the lumbar spine.Calcified atherosclerosis abdominal aorta.[id number] CT Angiogram Pe 2021-01-02 Interface, [place] n Chest 4 Radiology Results Methodi 14:44:05 Incoming - 01/15/2021 2:47 PM CDT EXAMINATION :CT ANGIOGRAM PE CHESTCLINICAL HISTORY:r o PETECHNIQUE:CT angiographic images of the chest were obtained during intravenous administration of iodinated contrast. Computerized reformatted images and 3-D MIP images were also obtained and archived (CT pulmonary embolus protocol).Automatic exposure control or iterative reconstruction techniques used to reduce dose.COMPARISON:04/24IMPRESSION:1.Pu lmonary arterial tree opacification is adequate. No acute filling defects.2.There is a metal device within the left lower lobe medial basal pulmonary artery. Heart size is enlarged. AICD noted. Coronary artery calcifications are again seen.3.Small nonspecific nodes are again seen in the mediastinal and hilar regions. No significant pleural or pericardial effusion. Nonspecific lung basilar subpleural patchy opacities. No acute consolidation. Central airways are patent. Osseous structures are stable.SUMMARY:1.No evidence for acute pulmonary embolism.2.Small metallic device located within the left lower lobe pulmonary artery medial basal segment. This should be correlated clinically.3.No acute pulmonary consolidation.[facility]-2U [id number] ECG 12 lead 2021-01-13 11:35:39 Test Item Value Reference Range Interpretation Comme nts Ventricular rate (test code = 253) 100 Atrial rate (test code = 255) 100 QRSD interval (test code = 260) 198 QT interval (test code = 264) 386 QTC interval (test code = 265) 497 P axis 1 (test code = 267) 43 QRS axis 1 (test code = 268) 152 T wave axis (test code = 270) -32 EKG impression (test code = 273) Atrial-sensed ventricular-paced rh ythm with occasional premature ventricular and fusion complexes-Biventricular pacemaker detected-Abnormal ECG- [place] [facility] Chest 1 Vw [id number] 20:54:33Hm Interface, Radiology Results Incoming - 01/12/2021 8:57 PM CDT EXAMINATION: XR CHEST 1 VW PORTABLECLINICAL HISTORY: sobCOMPARISON: Single view chest from 12/23/2020IMPRESSION:An AP radiograph of the chest was submitted for interpretation.Consolidative airspace disease is noted within the right middle lobe and right lower lobe, likely representing pneumonia. Underlying pulmonary vascular congestion is seen. Trace right-sided pleural effusion.No pneumothorax or left-sided pleural effusion.The mediastinal contours and cardiac silhouette are unchanged. Stable positioning of a left-sided AICD. Cardiomegaly.The bones are unremarkable. [id number] [facility] Preliminary Interpretation - Not an [id number] 21:01:48 Test Item Value Reference Range Interpretation Comments SCOTT (test code = SCOTT) Dwight Williamson MD 12/25/2020 4:43 [facility] Preliminary Interpretation - Not an OrderPerformed by: Dwight Williamson MDAuthorized by: Dwight Williamson MD ECG reviewed by ED Physician in the absence of a old testament professor: yes Interpretation: Interpretation: abnormal Rate: ECG rate: 102 ECG rate assessment: tachycardic Rhythm: Rhythm: paced QRS: QRS axis: Right QRS intervals: WideConduction: Conduction: normal ST segments: ST segments: NormalT waves: T waves: normal Lab Interpretation Abnormal (test code = 47794-5) [facility] [id number] 07:40:44 Moderately elevated right and left sided filling pressures. Mild postcapillary pulmonary hyperte nsion. Cardiac output is decreased by Suzan. CardioMEMS device deployed via RIJ approach and calibrated at bedside. HEMODYNAMIC DATA:1. Right atrial pressure is 12 mmHg.2. Right Ventricular Ynwxgprs81/11/12 mmHg.3. PA Pressure 40/24, mean 29 mmHg. 4. Pulmonary capillary wedge pressure 24 mmHg.5. The transpulmonary gradient is 5 mmHg with a PVR of 1 wood units (based on Suzan CO)6. By Suzan, CO: 4.93 l/min, CI 1.74 l/min/sqm 7. By Thermodilution CO: 7.33 l/min, CI 2.58 l/min/sqmHouston MethodistUs duplex venous lower extremity 2020-07-25 07:24:00Interface, Radiology Results In 07/25/2020 7:25 AM CDT Vascular Ultrasound Laboratory Lower Extremity Venous Report [id number] [place] [address] Pat.Name: DANA CLAUDIO Pat.ID: [id number] .Date: 07/24/2020 Refer.MD: PHYSICIAN, EMERGENCY, MDExam Time: 11:30:00 PM Study Type:LE Venous Height: 75in Weight: 360lb BSA: 2.82 m2 Age: 6 1970,50Y Sex:MALE Sonogrphr: ZEKE Mcmanus, RDCS, RVTPat. Stat.:Inpatient Room: ED-08 Tape Vol: KG, CPT - 4: 93432 Echo Event ID:[id number] Order ID: [id number] Reason for Study:Bilateral leg sw elling and pain, DVT suspected.Procedures: Colorflow, Grayscale/2D, Pulsed wave DopplerRace: C SUMMARY: DUPLEX SCAN OBSERVATIONS Deep Veins Superficial Veins Right Left Right Left GSV (prox) Normal NormalCFV Normal Normal (above knee)Femoral Normal Normal GSV (dist) Not Visualized NormalProfunda Normal Normal (below knee)Popliteal Normal NormalPT (prox) Not Visualized Not visualized SSV Normal NormalPT (dist) Not Visualized Normal Peroneal Not Visualized Not Visualized Gastrocs Normal NormalRIGHT: There is normal compressibility with no evidence of echogenicmaterial noted within the lumen ofthe visualized veins. Colorflow andDoppler signals are normal. The posterior tibial and peroneal veinswere not visualized due to large calf wound.LEFT: There is normal compressibility with no evidence of echogenicmaterial noted within the lumen of the visualized veins. Colorflowand Doppler signals are normal. The proximal posterior tibial andperoneal veins were not visualized due to patient body habitus.PRELIMINARY FINDINGS:1. No evidence of venous thrombosis of the visualized veins.2. Technically difficult study due to patient body habitus and edema.PHYSICIAN INTERPRETATION: Venous examination ofthe both lower extremities demonstrated noevidence of venous thrombosis in the visualized veins. Normalcompressibility and augmentation of all veins visualized. FINDI NGS: Signed 07/25/2020 07:24 Hamilton Zuluaga MD, RPVIStarksboro MethodistTransthoracic Echocardiogram Limited or Follow Up (w Contrast if needed)2020-07-19 13:57:37 Test Item Value Reference Range Interpretation Comments BSA Marlow (test code = 3.00 m2 6848017300) IVS,d (test code = 1.55 cm 3450158000) IVS/LVPW,2D (test code 0.98 = 9945884172) Left Atrium Dimension 5.37 cm Anterior (test code = 8523661661) LV,d (test code = 6.43 cm 7553944575) LV EF,2D (test code = 14.14 % 2164795160) LV,s (test code = 6.11 cm 2301657323) LVPWD,d (test code = 1.59 cm 8111901731) RVSP (TR) (test code = 23.48 mmHg 9774554614) TR Vpeak (test code = 1.84 mm/s 9519810661) RA pressure (test code 10.00 mmHg = 0035745223) TR pk grad (test code 13.48 mmHg = 9436488186) BMI (test code = 44.92 kg/m2 9484753985) RVSP (test code = 23.48 mmHg 6849783286) LV SYS VOL (test code 187.56 ml = 9623174614) LV GONZALEZ VOL (test code 210.56 ml = 5479897342) LV SI Teich 2D (test 8.17 ml/m2 code = 0027119184) LV SV Teich 2D (test 23.00 ml code = 5405511360) LV Vol s Teich PSAX 187.56 ml (test code = 7706041328) BSA Haycock (test code 3.01 m2 = 5423006140) IVS s 2D (test code = 1.50 8447210012) LV FS Teich 2D (test 4.95 code = 2367261634) LV FS Cube 2D (test 4.95 code = 4126649157) Pt Size (test code = 190.50 6200589094) Pt Wt (test code = 163.00 3899223939) MAX Pred HR (test code 170.69 = 5248670249) 85 of MPHR (test code 145.09 = 2442539705) Calc MPHR (test code = 170.69 bpm 8886834109) IVS pct thck PLAX -3.38 % (test code = 3055139806) LV SI Cube 2D (test 13.34 ml/m2 code = 6528671345) LV SV Cube 2D (test 37.54 ml code = 2010945052) LV vol d cube 2D (test 265.53 ml code = 2617610346) LV vol s cube 2D (test 227.99 ml code = 7507045658) LVPW pct thck PLAX -6.36 % (test code = 0893585780) LVPW s PLAX (test code 1.49 cm = 4380636305) Pred Exer Dur R1 (test 10.35 code = 1458950289) Pred METS R1 (test 10.60 code = 4513914818) EF (test code = 10.92 % 8459993280) Ascending aorta (test 3.29 cm code = 8425071960) Ao Root Diameter (test 3.8 cm code = 4209967338) SCOTT (test code = SCOTT) The left ventricle chamber size is severely enlarged. Left ventricular systolic function is severely impaired. There is moderate left ventricular concentric hypertrophy. Left Ventricular ejection fraction is <20%. Global right ventricle systolic function is severely reduced. Left atrium size is severely dilated. Unable to assess diastolic filling. Gal HuffCRITICAL [id number] 11:58:19Charles Carlos DO 07/19/2020 7:40 AMCritical CarePerformed by: Charles Carlos DOAuthorized by: Charles Carlos DO Critical care provider statement: Critical care time (minutes): 35Critical care start time: 07/18/2020 12:10 PM Critical care end time: 07/18/2020 12:45 PM Critical care was necessary to treat or prevent imminent or life-threatening deterioration of the followingconditions: Decompensated heart failure, respiratory distress. Critical care was time spent personally by me on the following activities: Discussions with consultants, examination of patient, re-evaluation of patient's condition and review of old chartsFulton Medical Center- Fultonalesha HuffXR Chest 1 [id number] 04:53:14Hm Interface, Radiology Results 06/30/2020 4:56 AM CDTFormatting of this note might be di fferent from the original.Examination: XR CHEST 1 VWClinical History: chest pain sobComparison: 06/23/2020Technique: Single frontal view of the chest is obtained.Findings:Cardiomegaly with pulmonary vascular congestion are noted.Left transvenous pacer device is noted.Small right pleural effusion is slightly increased.No pneumothorax is seen.Impression:Cardiomegaly with slight increase in pulmonary vascular congestion and right pleural effusion.[id number] HuffUs ankle brachial [id number] 17:54:49Hm Interface, Radiology Results 05/08/2020 5:57 PM CDTFormatting of this note might be di fferent from the original.EXAMINATION: US ANKLE BRACHIAL INDEX COMPLETE HISTORY: 50 years old Male. Need for compression.COMPARISON: None available.FINDINGS: Systolic pressures were obtained in the upper and lower extremities for determination of ankle-brachial indices.Right extremities:Brachial: 121Ankle (PT): 177, index 1.46Ankle (DP): 173, index 1.43Digit: 109, index 0.9ABI: 1.46TBI: 0.90Left extremities:Brachial: 110Ankle (PT): 173, index 1.43Ankle (DP): 149, index 1.23Digit: 132, index 1.09ABI: 1.43TBI: 1.09Normal arterial waveforms.IMPRESSION:1. Right ankle brachial index: 1.462. Left anklebrachial index: 1.43Ankle brachial index (KEYON):Normal: 1.0-1.4Borderline: 0.91- 0.99Abnormal: Less than or equal to 0.9.Mild to moderate peripheral arterial disease: 0.4-0.9Suggestive of severe peripheral arterial disease: Less than 0.4Toe brachial index (TBI):Normal: >0.6Mild: 0.34 - 0.59Moderate: 0.12 - 0.34Severe: <0.12[facility] MethodistTransthoracic Echocardiogram Limited or Follow Up (w Contrast if needed)2020-05-07 11:23:27 Test Item Value Reference Range Interpretation Comments BSA Marlow (test code = 2.60 m2 6505643744) BSA (test code = 2.57 m2 7464040568) IVS,d (test code = 1.58 cm 7887286513) IVS/LVPW,2D (test code 0.93 = 5175981200) Left Atrium Dimension 5.64 cm Anterior (test code = 2084898849) LV,d (test code = 8.45 cm 2889576070) LV EF,2D (test code = 32.22 % 9439847470) LV EF,A2C (test code = 20.86 % 6926369488) LV EF,A4C (test code = 27.74 % 1057091056) LV EF,BP (test code = 24.44 % 8591128242) [place],d A2C (test 10.64 cm code = 3570939556) [place],d A4C (test 10.40 cm code = 2976111424) [place],s A2C (test 10.03 cm code = 3188553836) [place],s A4C (test 10.11 cm code = 1355943264) LV,s (test code = 7.42 cm 5042146848) LV SV,A2C (test code = 55.69 % 1804656381) LV SV,A4C (test code = 82.04 % 2926307062) LV SV,BP (test code = 68.93 % 2771629567) LV Vol,d A2C (test code 266.93 mL = 1486569459) LV Vol,d A4C (test code 295.71 ml = 6419627336) LV Vol,d BP (test code 282.01 ml = 9402463291) LV Vol,s A2C (test code 211.24 mL = 5210822257) LV Vol,s A4C (test code 213.67 ml = 2586770511) LV Vol,s BP (test code 213.08 nl = 0305863531) LVPWD,d (test code = 1.70 cm 9654938001) RVSP (TR) (test code = 30.20 mmHg 2905104733) TR Vpeak (test code = 2.41 mm/s 1155021354) MV E A ratio (test code 1.18 = 5505560945) RA pressure (test code 10.00 mmHg = 9103401594) TR pk grad (test code = 20.20 mmHg 0287878614) LV SI MOD BP BSA [place] 27.41 ml/m2 (test code = 8840770239) LV Vol Index s bpmod 112.15 ml/m2 BSA Matty (test code = 8818047396) PV Vmn (test code = 84.73 m/s 3075237355) BMI (test code = 34.44 kg/m2 6527214649) E wave decelartion time 140.48 msec (test code = 9070174380) MV Peak A [place] (test 0.66 m/s code = 3511747507) MV valve area p 1/2 5.40 cm2 method (test code = 4337194917) MV Peak E [place] (test 0.78 m/s code = 9168733153) MV stenosis pressure 40.74 ms 1/2 time (test code = 7689518362) RVSP (test code = 30.20 mmHg 8122979645) MV mean gradient (test 1.18 mmHg code = 0749308588) LV SYS VOL (test code = 291.08 ml 0979945266) LV GONZALEZ VOL (test code 388.80 ml = 1958729246) LV SI Teich 2D (test 38.86 ml/m2 code = 1258464583) LV SV Teich 2D (test 97.72 ml code = 8030539615) LV Vol s Teich PSAX 291.08 ml (test code = 9392896966) MR peak grad (test code 2.78 mmHg = 3938443014) MV Vmax (test code = 0.83 m 0581188092) MV VTI Tips (test code 0.19 m = 1730467732) BSA [place]cock (test code 2.61 m2 = 1529784847) IVS s 2D (test code = 1.77 3686009004) LV FS Teich 2D (test 12.16 code = 1592433911) MV AE ratio (test code 0.85 = 2784523667) LV FS Cube 2D (test 12.16 code = 2781825704) Pt Size (test code = 190.50 7881849420) Pt Wt (test code = 125.00 7277708230) MAX Pred HR (test code 170.89 = 9548237058) 85 of MPHR (test code = 145.26 9760281184) Calc MPHR (test code = 170.89 bpm 9812591319) IVS pct thck PLAX (test 11.72 % code = 2388622621) LV SI Cube 2D (test 77.19 ml/m2 code = 2009993909) LV SV Cube 2D (test 194.11 ml code = 1783119616) LV vol d cube 2D (test 602.39 ml code = 8929109884) LV vol s cube 2D (test 408.28 ml code = 4444444344) LVPW pct thck PLAX 4.68 % (test code = 6171534971) LVPW s PLAX (test code 1.78 cm = 8289040911) MV Decel slope (test 5.54 m/s2 code = 0943577897) Pred Exer Dur R1 (test 10.38 code = 1377042025) Pred METS R1 (test code 10.63 = 7768978242) EF (test code = 25.13 % 2242762095) E/A ratio (test code = 1.18 2719194459) LV Systolic Volume 82.19 mL/m2 Index (test code = 1761042242) LV Diastolic Volume 103.86 mL/m2 Index (test code = 0856609981) SCOTT (test code = SCOTT) The left ventricle chamber size is severely enlarged. Left ventricular systolic function is severely impaired. Left Ventricular ejection fraction is 20 - 25%. Gal BlackwoodistUS [id number] 19:43:15Hm Interface, Radiology Results 05/06/2020 7:46 PM CDT EXAMINATION: US RENALCLINICAL HISTORY: Neck pain prior surgery neg xray Positive COVID-19COMPARISON: ShemarTECHNIQUE: Ultrasound evaluation of the kidneys and bladder.Findings:1. The right kidney measures 11.3 x 7.0 x 6.1 cm. The left kidney measures 11.6 x 7.0 x 6.4 cm. Normal renal cortical echogenicity.2. No hydronephrosis or solid mass lesions. Questionable 1.3 cm left renal cyst.3. Bladder is poorly distended limiting its evaluation.IMPRESSION:1.No hydronephrosis or solid renal mass.HMRM-WPHYDPK [facility] MethodistCT Lumbar Spine Wo [id number] 16:52:57Hm Interface, Radiology Results 05/06/2020 4:55 PM CDT EXAMINATION: CT LUMBAR SPINE WO CONTRASTCLINICAL HISTORY: back painCOMPARISON: None.TECHNIQUE:Axial helical CT images throughout the lumbar spine were performed without IV contrast. Sagittal and coronal reformatted images were generated.All CT images were acquired using low-dose technique with automated exposure control.FINDINGS: There is no evidence of acute fracture, subluxation, or dislocation. There is normal lumbar lordosis and alignment. Vertebral bodies are preserved. There is no evidence of paraspinal hematoma.L4-L5 level: Spondylotic disc space narrowing with vacuum phenomena and mild disc bulge. There is no canal stenosis or foraminal narrowing.L5-S1 level: Spondylotic disc space narrowing with vacuum phenomena and associated bilateral facet arthropathy. There is a spondylotic mild left and moderate right foraminal narrowing. There is no canal stenosis.The remaining lumbar disc levels are grossly unremarkable.Visualized paraspinal soft tissues are unremarkable.IMPRESSION:No acute lumbar spine bony abnormality.Spondylotic changes at L4-L5 and L5-S1 levels as detailed above.[id number] MethodistCT Maxillofacial Wo [id number] 16:49:02Hm Interface, Radiology Results 05/06/2020 4:52 PM CDTFormatting of this note might be di fferent from the original.EXAMINATION: CT MAXILLOFACIAL WO CONTRASTCLINICAL HISTORY: face painCOMPARISON: None.TECHNIQUE:Axial helical CT images throughout the face were performed without IV contrast. Sagittal and coronal reformatted images were generated.All CT images were acquired using low-dose t echnique with automated exposure control.FINDINGS: The maxillofacial bones are intact. There is no facial fracture. The orbits are unremarkable with no orbital wall fracture. There is no orbital hematoma. The maxillofacial soft tissues are grossly unremarkable.There are mild spondylotic changes in thevisualized upper cervical spine.There is nonspecific inflammatory opacification of an incidental variant posterior ethmoid air cell superior to the sphenoid sinus to the right abutting the medial aspect of the optic canal ([place] air cell). The remaining paranasal sinuses are clear.IMPRESSION:No acute facial fracture.[id number] [facility] Head Wo [id number] 16:46:13Hm Interface, Radiology Results 05/06/2020 4:49 PM CDTFormatting of this note might be di fferent from the original.EXAMINATION: CT HEAD WO CONTRASTCOMPARISON: NoneCLINICAL HISTORY MCWILLIAMS. TECHNIQUE: Non-contrast CT scan of the head with thin- section contiguous transaxial images from the skullbase to the vertex. CT scans are performed using radiation dose reduction techniques. Technical factors are evaluated and adjusted to ensure appropriate moderation of exposure. Automated dose management technology is applied to adjust radiation exposure while achieving a highly diagnostic quality image.FINDINGS:Nonenhanced emergency cranial CT was performed at approximately 1614 hours.The ventricles and sulci are normal.There is no definite acute edema or hemorrhage or midline shift or extra-axial lesion.Bone settings demonstrate the calvarium to be intact.IMPRESSION:Mild involutional changes without focal acute abnormalities.[facility]-[id number] MethodistCT Cervical Spine Wo Contrast 2020-05-06 16:41:21Hm Interface, Radiology Results 05/06/2020 4:44 PM CDT EXAMINATION: CT CERVICAL SPINE WO CONTRASTCLINICAL HISTORY: neck pain fallCOMPARISON: None.TECHNIQUE:Axial helical CT images throughout the cervical spine were performed without IV contrast. Sagittal and coronal reformatted images were generated.All CT images were acquiredusing low-dose technique with automated exposure control.FINDINGS:There is no evidence of acute fracture, traumatic subluxation, or dislocation. There is normal cervical lordosis and alignment. Vertebral bodies are preserved. There is no evidence of paraspinal hematoma.Spondylotic disc space narrowingwith mild posterior disc ossified complexes are seen at C5-6 and C6-C7 levels. IMPRESSION:No acute cervical spine bony abnormality.[facility]-[id number] MethodistCT Abdomen Pelvis W Contrast 2020-04-24 08:05:07Hm Interface, Radiology Results 04/24/2020 8:08 AM CDT EXAMINATION: CT ABDOMEN PELVIS W CONTRASTCLINICAL HISTORY: abdominal pain nausea vomiting.TECHNIQUE: Multi-detector computed axial tomography (CAT) of the abdomen and pelvis was performed with IV iodinated contrast. Sagittal and coronal computerized reformatted images were created at a workstation and archived for review.DOSE REDUCTION: CT imaging was performed with iterative reconstruction technique and/or automated exposure control to reduce radiation dose.COMPARISON: CT April 04, 2020IMPRESSION:1.No identifiable cause of abdominal pain or vomiting.FINDINGS:ABDOMEN:Subcentimeter hypodensity in the anterior interpolar left kidney too small to characterize. Mild cortical scarring in the right kidney.Liver, spleen, pancreas, and adrenals are unremarkable.Gallbladder isnormal and the pancreaticobiliary system is nondistended.No evidence of obstruction or inflammation in the GI tract. Appendix is not definitively seen.Aorta is nonaneurysmal and mildly atheromatous. Superior mesenteric artery and portal venous system are patent.No adenopathy, free fluid, or fluid colle ction.PELVIS:No solid mass, adenopathy, free fluid, or fluid collection.Prostate, seminal vesicles, and urinary bladder are unremarkable.Tiny fat-containing umbilical hernia.OTHER:Mild cardiomegaly. Cardiac pacing wires are partially imaged. No pericardial effusion.Small loculated pleural effusions and bibasilar multifocal scarring are similar to before. Bronchial wall thickening and mild ground-glass attenuation are most likely due to mild edema.No acute or suspicious osseous lesion is identified. Degenerative disc disease in the lower lumbar spine.[facility] [place]-[id number] MethodistUrine culture 2020-04-15 11:16:11 Test Item Value Reference Range Interpretation Comments Urine culture (test SEE COMMENT Bacteriu francisco javier screen code = [id number]) negative. [place] MethodistCRITICAL [id number] 11:06:44Annette Tucker DO 04/15/2020 5:02 PMCritical CarePerformed by: Annette Tucker DOAuthorized by: Annette Tucker DO Critical care provider statement: Critical care time (minutes): 60 Critical care time was exclusive of: Teaching time and separately billable procedures and treating other patients Critical care was necessary to treat or prevent imminent or life-threatening deterioration of the following conditions: Respiratory failure (covid) Critical care was time spent personally by me on the following activities: Development of treatment plan with patient or surrogate, discussions with consultants, evaluation of patient's response to treatment, examination of patient, obtaining history from patient or surrogate, review of old charts, re-evaluation of patient's condition, pulse oximetry, ordering and review of radiographic studies, ordering and review of laboratory studies and ordering and performing treatments and interventions Paul 'yes' if you are taking over critical care for this patient from another provider.: [facility]CT Chest W Contrast Abdomen W Contrast Pelvis W [id number] 15:56:54Hm Interface, Radiology Results 04/04/2020 4:00 PM CDT EXAMINATION: CT CHEST W CONTRAST ABDOMEN W CONTRAST PELVIS W CONTRASTCLINICAL HISTORY: 50 years Male Right sided abdominal pain, vomitingTECHNIQUE: Multiple axial images ofthe chest, abdomen, and pelvis were obtained following intravenous administration of iodinated contrast. Sagittal and coronal computerized reformatted images were obtained. CT imaging was performed with iterative reconstruction techniques and/or automated exposure control to reduce radiation dose. COMPARISON: CTA chest 11/12/2019, 10/29/2019, CT abdomen pelvis 10/12/2019IMPRESSION:CHEST:Lungs: Small leftand trace right pleural effusions. Mild left basilar subsegmental atelectasis. Mild right middle lobe and right lower lobe atelectasis. No confluent consolidation or pneumothorax. Few minimal foci of groundglass in the right and left upper lobes.Heart, vasculature partially visualized left subclavian 3-lead pacemaker with leads in the right atrium, right ventricle and coronary vein via coronary sinus. Mild four-chamber cardiomegaly. No pericardial effusion. Atherosclerotic calcification of the coronary arteries. Caliber of the great vessels is normal. No central pulmonary embolism.Lymph nodes: Subcentimeter short axis mediastinal lymph nodes, likely reactive. Other findings:ABDOMEN:Upper abdominalorgans: Liver: Heterogeneous. Enlarged, measuring 19 cm in craniocaudal dimension at the midclavicular line, similar to prior. Probable diffuse hepatic steatosis. Gallbladder: Nondistended. No pericholecystic fluid or inflammatory fat stranding. Spleen: Normal.Pancreas: Normal.Adrenal Glands: Normal.Kidneys: No hydronephrosis. No obstructing renal or ureteral calculi.Bowel and mesentery: Large and small bowel are normal in caliber without focal wall thickening or mesenteric fat stranding. Appendix (series 601B, image 51) is normal. The bowel is otherwise normal.No free intraperitoneal gas or fluid.Vasculature: Abdominal aorta is of normal caliber. Celiac artery, superior and inferior mesenteric ar teries, superior mesenteric and portal veins appear patent. Mild calcified and non-calcified atherosclerotic disease of the abdominal aorta and branch vessels.Lymph nodes: No abdominal or retroperitoneal lymphadenopathy. PELVIS:Urinary bladder: Normal.Lymph nodes: Right external iliac lymph node me asuring up to 9 mm in short axis (series 301, image 228), nonspecific, possibly reactive, similar toprior. Mildly enlarged right inguinal lymph node (series 301, image 278) measuring up to 1.7 cm in short axis, similar to prior.MUSCULOSKELETAL: No suspicious lytic or blastic osseous lesions. The super ficial soft tissues are unremarkable. Age appropriate degenerative changes of the spine. Small fat-containing umbilical hernia.SUMMARY:1. Small left and trace right pleural effusions with associated basilar atelectasis.2. Few minimal patchy foci of groundglass in the right upper lobe, likely infectious /inflammatory.3. Mild hepatomegaly, similar to prior.4. No CT evidence of acute intra-abdominal pathology. Specifically, no appendicitis, diverticulitis, bowel obstruction, perforation, ascites, fluid collection or hydronephrosis.5. Mildly enlarged right inguinal and borderline enlarged right externaliliac lymph nodes, nonspecific, possibly reactive, similar to prior.[facility]-[id number] MethodistXR Chest 2 [id number] 18:33:05Hm Interface, Radiology Results - 03/22/2020 6:36 PM CDT EXAMINATION: XR CHEST 2 VWCLINICAL HISTORY: Shortness of breathCOMPARISON: 01/24/2020 IMPRESSION:Left subclavian pacer device remains in place. Stable enlargement of the cardiomediastinal silhouette. Mild vascular congestion is increased from prior study. Small bilateral pleural effusions and mild basilar volume loss appears similar to prior exam. There is no pneumothorax. Visualized osseous structures are intact. [facility]
[2021-02-07 20:31] LABS: Absolute Lymphocytes (CBC) 1.4 K/uL (0.7-4.9); Basophils % 1.5 % (0-1.3); Lymphocytes % 13.1 % (15.3-44.8); MPV 7.4 fL (7.6-11.3); RBC Red Blood Cell Count 3.91 M/uL (4.33-5.43)
[2021-02-07 20:39] LABS: Protime INR 1.21
[2021-02-07] MEDS ORDERED: FUROSEMIDE 40 MG/4 ML VIAL ONE (20:39)
[2021-02-07] MEDS ORDERED: FUROSEMIDE 20 MG/ 2ML VIAL ONE (20:39)
[2021-02-07] MEDS ORDERED: ONDANSETRON 4 MG/2 ML VIAL ONE (20:40)
--- NOTE | 2021-02-07 20:56 | RAD REPORT ---
EXAM DESCRIPTION: RAD - Chest Single View - 02/07/2021 8:45 pm CLINICAL HISTORY: SOB Chest pain. COMPARISON: Chest Single View dated 10/23/2018 FINDINGS: Portable technique limits examination quality. Mild pulmonary edema. The heart is enlarged in size with multilead pacer/defibrillator device. No dis placed fractures. IMPRESSION: Mild to moderate CHF.
[2021-02-07 20:58] LABS: Urine Blood Negative (Negative); Urine Glucose Negative (Negative); Urine Protein Negative (Negative); Urine Specific Gravity 1.015 (1.005-1.030)
[2021-02-07 21:09] LABS: Albumin 3.7 g/dL (3.4-5.0); Bilirubin Direct 0.2 mg/dL (0-0.2); Bilirubin Total 0.8 mg/dL (0.2-1.0); Magnesium 1.5 mg/dL (1.8-2.4); Protein, Total 8.5 g/dL (6.4-8.2); Troponin (Emerg Dept Use Only) 0.05 ng/mL (0.0-0.045)
[2021-02-07 21:10] LABS: Potassium 2.8 mmol/L (3.5-5.1)
[2021-02-07] MEDS ORDERED: MORPHINE 4 MG/ML SYR ONE (21:23)
--- NOTE | 2021-02-07 21:27 | ER ---
Nurse's Notes [facility] Name: Siva West Age: 50 yrs Sex: Male : 1970 Arrival Date: 02/07/2021 Time: 19:42 Bed 23 Private MD: Diagnosis: Acute on chronic combined systolic (congestive) and diastolic (congestive) heart failure Presentation: 02/07 19:46 Chief complaint: Patient states: has hx of CHF, feels like has fluid backed up in his iw lungs , has been SOB X 2 days , taking fluid pills but not getting better. Coronavirus screen: At this time, the client does not indicate any symptoms associated with coronavirus-19. Ebola Screen: Patient negative for fever greater than or equal to 101.5 degrees Fahrenheit, and additional compatible Ebola Virus Disease symptoms Patient denies exposure to infectious person. Patient denies travel to an Ebola-affected area in the 21 days before illness onset. No symptoms or risks identified at this time. Initial Sepsis Screen: Does the patient meet any 2 criteria? No. Patient's initial sepsis screen is negative. Does the patient have a suspected source of infection? No. Patient's initial sepsis screen is negative. Risk Assessment: Do you want to hurt yourself or someone else? Patient reports no desire to harm self or others. Onset of symptoms was February 05, 2021. 19:46 Method Of Arrival: Wheelchair iw 19:46 Acuity: EFRAIN 2 iw Historical: - Allergies: 19:48 No Known Allergies; iw - PMHx: 19:48 Atrial Fib; CHF; Hypertension; iw - PSHx: 19:48 pacemaker; defibrillator; iw - Immunization history:: Adult Immunizations up to date. - Social history:: Smoking status: Patient denies any tobacco usage or history of. Screenin:00 Abuse screen: Denies threats or abuse. Nutritional screening: No deficits noted. jb4 Tuberculosis screening: No symptoms or risk factors identified. Fall Risk None identified. Assessment: 20:00 General: Appears in no apparent distress. uncomfortable, Behavior is calm, cooperative. jb4 Pain: Complains of pain in back Pain does not radiate. Pain currently is 6 out of 10 on a pain scale. Neuro: Level of Consciousness is awake, alert, obeys commands, Oriented to person, place, time, situation. Cardiovascular: Patient's skin is warm and dry. Rhythm is Respiratory: Airway is patent Respiratory effort is even, labored, Respiratory pattern is regular, symmetrical, Breath sounds are clear bilaterally. GI: No signs and/or symptoms were reported involving the gastrointestinal system. : No signs and/or symptoms were reported regarding the genitourinary system. EENT: No signs and/or symptoms were reported regarding the EENT system. Derm: Skin is intact, Skin is pink, warm \T\ dry. Musculoskeletal: Circulation, motion, and sensation intact. Range of motion: intact in all extremities. 21:00 Reassessment: PT remains in bed. Respirations remain labored with and tachypneic. jb4 Remains alert and oriented x4 and ambulatory. Vital Signs: 19:46 BP 122 / 86; Pulse 110; Resp 20 S; Temp 97.9(TE); Pulse Ox 100% on R/A; Weight 167.83 iw kg; Height 6 ft. 3 in. (190.50 cm); 21:00 BP 133 / 85; Pulse 112; Resp 32 S; Pulse Ox 97% on R/A; jb4 22:35 BP 132 / 92; Pulse 105; Resp 22; Pulse Ox 95% ; ea 19:46 Body Mass Index 46.25 (167.83 kg, 190.50 cm) iw ED Course: 19:42 Patient arrived in ED. bp1 19:47 Triage completed. iw 19:48 Arm band placed on. iw 20:00 Pasquale Beard MD is Attending Physician. mh7 20:00 Patient has correct armband on for positive identification. Bed in low position. Call jb4 light in reach. Side rails up X 1. account development manager on. Pulse ox on. NIBP on. 20:08 Mika Nelson, QUIRINO is Primary Nurse. jb4 20:15 Initial lab(s) drawn, by dc, sent to lab. Inserted saline lock: 18 gauge in right jb4 antecubital area, using aseptic technique. Blood collected. 20:45 XRAY Chest (1 view) In Process Unspecified. EDMS 21:26 Sue Armas MD is Hospitalizing Provider. mh7 22:34 No provider procedures requiring assistance completed. Patient admitted, IV remains in ea place. Administered Medications: 20:20 Drug: Lasix (furosemide) 60 mg Route: IVP; Site: right antecubital; jb4 21:10 Follow up: Response: No adverse reaction jb4 20:33 Not Given (Patient Refused): Zofran (Ondansetron) 4 mg IVP once; over 2 minutes jb4 21:05 Drug: morphine 4 mg Route: IVP; Site: right antecubital; jb4 22:34 Drug: Potassium Chloride 40 mEq Route: PO; ea Outcome: 21:27 Decision to Hospitalize by Provider. [facility] 22:34 Admitted to ER Hold. Please see [facility] for further documentation. ea 22:34 Condition: stable 22:34 Instructed on the need for admit. 02/08 08:06 Patient left the ED. eb Signatures: Dispatcher [employer] EDMS Pura Moncada RN RN iw Bryson, James, RN RN jb4 Antunez, Elena, RN RN ea Botello, Elizabeth eb Paniauga, Brittany bp1 Holmes, Maurice, MD MD mh7 Corrections: (The following items were deleted from the chart) 02/07 20:26 19:46 BP 122 / 86; Pulse 110bpm; Resp 20bpm; Spontaneous; Pulse Ox 100% RA; 167.83 kg; iw Height 6 ft. 3 in.; BMI: 46.2; iw
--- NOTE | 2021-02-07 21:27 | EDPHYS ---
Physician Documentation [facility] Name: Siva West Age: 50 yrs Sex: Male : 1970 Arrival Date: 02/07/2021 Time: 19:42 Bed 23 Private MD: ED Physician Paqsuale Beard HPI: 02/07 20:13 This 50 yrs old Male presents to ER via Wheelchair with complaints of mh7 Breathing Difficulty, Chest Pain. 20:13 The patient has shortness of breath at rest, with light activity. Onset: The mh7 symptoms/episode began/occurred 2 day(s) ago. Duration: The symptoms are continuous, and are steadily getting worse. The patient's shortness of breath is aggravated by exertion, light activity, is alleviated by nothing. Associated signs and symptoms: Pertinent positives: nausea, Pertinent negatives: chest pain, non-productive cough, productive cough, diaphoresis, dizziness, fever, hemoptysis, loss of consciousness, numbness in extremities, visual changes, vomiting. Severity of symptoms: At their worst the symptoms were moderate today, in the emergency department the symptoms are unchanged. The patient has experienced similar episodes in the past, chronically. Patient reports CHF with frequent recurrence. He is on multiple medications but still has frequent exacerbations. He denies any chest pain, fever, cough, vomiting, abdominal pain.. Historical: - Allergies: 19:48 No Known Allergies; iw - PMHx: 19:48 Atrial Fib; CHF; Hypertension; iw - PSHx: 19:48 pacemaker; defibrillator; iw - Immunization history:: Adult Immunizations up to date. - Social history:: Smoking status: Patient denies any tobacco usage or history of. ROS: 20:17 Constitutional: Negative for fever, chills, and weight loss, Eyes: Negative for injury, mh7 pain, redness, and discharge, ENT: Negative for injury, pain, and discharge, Neck: Negative for injury, pain, and swelling, : Negative for injury, bleeding, discharge, and swelling, MS/Extremity: Negative for injury and deformity, Skin: Negative for injury, rash, and discoloration, Neuro: Negative for headache, weakness, numbness, tingling, and seizure, Psych: Negative for depression, anxiety, suicide ideation, homicidal ideation, and hallucinations, Allergy/Immunology: Negative for hives, rash, and allergies, Endocrine: Negative for neck swelling, polydipsia, polyuria, polyphagia, and marked weight changes, Hematologic/Lymphatic: Negative for swollen nodes, abnormal bleeding, and unusual bruising. 20:17 Abdomen/GI: Negative for abdominal pain, vomiting, diarrhea, constipation, abdominal cramps, abdominal distension, anorexia, dysphagia, hematemesis, black/tarry stool, rectal pain, rectal bleeding, bowel incontinence, flatulence. 20:17 Back: Positive for low back pain, chronic. Exam: 20:17 Head/Face: Normocephalic, atraumatic. Eyes: Pupils equal round and reactive to light, mh7 extra-ocular motions intact. Lids and lashes normal. Conjunctiva and sclera are non-icteric and not injected. Cornea within normal limits. Periorbital areas with no swelling, redness, or edema. Neck: Trachea midline, no thyromegaly or masses palpated, and no cervical lymphadenopathy. Supple, full range of motion without nuchal rigidity, or vertebral point tenderness. No Meningismus. Chest/axilla: Normal chest wall appearance and motion. Nontender with no deformity. No lesions are appreciated. 20:17 Abdomen/GI: Soft, non-tender, with normal bowel sounds. No distension or tympany. No guarding or rebound. No evidence of tenderness throughout. 20:17 Back: No spinal tenderness. No costovertebral tenderness. Full range of motion. Skin: Warm, dry with normal turgor. Normal color with no rashes, no lesions, and no evidence of cellulitis. MS/ Extremity: Pulses equal, no cyanosis. Neurovascular intact. Full, normal range of motion. Neuro: Awake and alert, GCS 15, oriented to person, place, time, and situation. Cranial nerves II-XII grossly intact. Motor strength 5/5 in all extremities. Sensory grossly intact. Cerebellar exam normal. Normal gait. Psych: Awake, alert, with orientation to person, place and time. Behavior, mood, and affect are within normal limits. 20:17 Constitutional: The patient appears in no acute distress, alert, awake, uncomfortable. 20:17 Cardiovascular: Rate: tachycardic, Rhythm: regular, Pulses: no pulse deficits are appreciated, Heart sounds: normal, normal S1and S2, Edema: pedal edema, that is mild, JVD: is not appreciated. 20:17 Respiratory: mild respiratory distress is noted, Respirations: tachypnea, that is mild, Breath sounds: rales, that are mild, are scattered, rhonchi, that are mild, are scattered, Respiratory rate: 20 Vital Signs: 19:46 BP 122 / 86; Pulse 110; Resp 20 S; Temp 97.9(TE); Pulse Ox 100% on R/A; Weight 167.83 iw kg; Height 6 ft. 3 in. (190.50 cm); 21:00 BP 133 / 85; Pulse 112; Resp 32 S; Pulse Ox 97% on R/A; jb4 22:35 BP 132 / 92; Pulse 105; Resp 22; Pulse Ox 95% ; ea 19:46 Body Mass Index 46.25 (167.83 kg, 190.50 cm) iw MDM: 21:25 Differential diagnosis: Anemia Anxiety Reaction asthma, Bronchitis CHF exacerbation, 7 Chronic Obstructive Pulmonary Disease Myocardial Infarction pneumonia, Pneumothorax Psychogenic pulmonary edema, reactive airway disease. Data reviewed: vital signs, nurses notes, old medical records, lab test result(s), cardiac enzymes, CBC, electrolytes, EKG, radiologic studies, plain films. Data interpreted: Pulse oximetry: on room air is 97 %. Interpretation: normal. Counseling: I had a detailed discussion with the patient and/or guardian regarding: the historical points, exam findings, and any diagnostic results supporting the discharge/admit diagnosis, lab results, radiology results, the need for further work-up and treatment in the hospital. Response to treatment: the patient's symptoms have mildly improved after treatment. 21:27 Patient medically screened. [facility] 02/07 20:10 Order name: Basic Metabolic Panel [facility] 02/07 20:10 Order name: CBC with Diff [facility] 02/07 20:10 Order name: LFT's [facility] 02/07 20:10 Order name: Magnesium [facility] 02/07 20:10 Order name: NT PRO-BNP [facility] 02/07 20:10 Order name: PT-INR; Complete Time: 21:23 [facility] 02/07 20:10 Order name: Troponin (emerg Dept Use Only) [facility] 02/07 20:11 Order name: Basic Metabolic Panel [facility] 02/07 20:11 Order name: CBC with Automated Diff; Complete Time: 21:23 [facility] 02/07 20:11 Order name: Liver (Hepatic) Function [facility] 02/07 20:58 Order name: Urine Dipstick-Ancillary; Complete Time: 21:23 [facility] 02/07 21:49 Order name: COVID-19/FLU A+B [facility] 02/07 20:10 Order name: XRAY Chest (1 view); Complete Time: 21:23 [facility] 02/07 20:10 Order name: EKG; Complete Time: 20:12 [facility] 02/07 22:31 Order name: CONS Physician Consult [facility] 02/08 04:44 Order name: CBC with Automated Diff [facility] 02/08 05:11 Order name: Comprehensive Metabolic Panel [facility] 02/08 05:11 Order name: Phosphorus [facility] 02/08 05:11 Order name: Lipid Profile [facility] 02/08 05:11 Order name: T4 Free [facility] 02/08 05:11 Order name: Magnesium [facility] 02/08 05:11 Order name: Thyroid Stimulating Hormone [facility] 02/08 05:57 Order name: Urinalysis [facility] 02/08 05:58 Order name: Urine Microscopic Only [facility] 02/07 20:10 Order name: Cardiac monitoring; Complete Time: 20:32 [facility] 02/07 20:10 Order name: EKG - Nurse/Tech; Complete Time: 20:32 [facility] 02/07 20:10 Order name: IV Saline Lock; Complete Time: 20:32 [facility] 02/07 20:10 Order name: Labs collected and sent; Complete Time: 20:32 [facility] 02/07 20:10 Order name: O2 Per Protocol; Complete Time: 20:32 [facility] 02/07 20:10 Order name: O2 Sat Monitoring; Complete Time: 20:32 [facility] 02/07 20:10 Order name: Urine Dipstick-Ancillary (obtain specimen); Complete Time: 20:58 mh7 Administered Medications: 20:20 Drug: Lasix (furosemide) 60 mg Route: IVP; Site: right antecubital; jb4 21:10 Follow up: Response: No adverse reaction jb4 20:33 Not Given (Patient Refused): Zofran (Ondansetron) 4 mg IVP once; over 2 minutes jb4 21:05 Drug: morphine 4 mg Route: IVP; Site: right antecubital; jb4 22:34 Drug: Potassium Chloride 40 mEq Route: PO; ea Disposition: 02/07/21 21:27 Hospitalization ordered by Sue Armas for Inpatient Admission. Preliminary diagnosis is Acute on chronic combined systolic (congestive) and diastolic (congestive) heart failure. - Bed requested for Telemetry/MedSurg (Inpatient). - Status is Inpatient Admission. eb - Condition is Stable. - Problem is an acute exacerbation. - Symptoms have improved. Signatures: Dispatcher [employer] [facility] Anastasiia Tuttle RN RN mw Williams, Irene, RN RN iw Bryson, James, RN RN jb4 Leena Gasca RN RN ea Botello, Elizabeth eb Holmes, Maurice, MD MD mh7 Corrections: (The following items were deleted from the chart) 20:57 20:30 CORONAVIRUS+MR.LAB.BRZ ordered. [facility] EDMS 20:58 20:30 Influenza Screen (A \T\ B)+BA.LAB.BRZ ordered. [facility] 21:47 21:27 Hospitalization Ordered by Sue Armas MD for Inpatient Admission. Preliminary diagnosis is Acute on chronic combined systolic (congestive) and diastolic (congestive) heart failure. Bed requested for Telemetry/MedSurg (Inpatient). Status is Inpatient Admission. Condition is Stable. Problem is an acute exacerbation. Symptoms have improved. [facility] 02/08 05:31 02/07 21:47 02/07/2021 21:27 Hospitalization Ordered by Sue Armas MD for Inpatient mw Admission. Preliminary diagnosis is Acute on chronic combined systolic (congestive) and diastolic (congestive) heart failure. Bed requested for [facility] ER HOLD. Status is Inpatient Admission. Condition is Stable. Problem is an acute exacerbation. Symptoms have improved. 02/08 08:06 05:31 02/07/2021 21:27 Hospitalization Ordered by Sue Armas MD for Inpatient eb Admission. Preliminary diagnosis is Acute on chronic combined systolic (congestive) and diastolic (congestive) heart failure. Bed requested for Telemetry/MedSurg (Inpatient). Status is Inpatient Admission. Condition is Stable. Problem is an acute exacerbation. Symptoms have improved.
[2021-02-07 21:49] LABS: SARS-COV-2 RT PCR NEGATIVE (NEGATIVE)
--- NOTE | 2021-02-07 22:49 | P.HP ---
Certification for Inpatient Patient admitted to: Inpatient With expected LOS: >2 Midnights Patient will require the following post-hospital care: None Practitioner: I am a practitioner with admitting privileges, knowledge of patient current condition, hospital course, and medical plan of care. Services: Services provided to patient in accordance with Admission requirements found in Title 42 Section 412.3 of the Code of Federal Regulations <JakeGwenShemar S - Last Filed: 02/07/21 22:54> Patient History Date of Service: 02/07/21 Primary Care Provider: Vesta Reason for admission: CHF exacerbation History of Present Illness: Mr. West is a 50 yo M with CHF (EF 10%) with a defibrillator, HTN, hypothyro idism here today for acute CHF exacerbation. For the last few days he reports SOB, TRINIDAD, wheezing, PND. Denies orthopnea, edema, cough. He was last admitted for an exacerbation 3 weeks ago, and was admitted to [facility] for 1 week. He normally is admitted for 4-5 days for his exacerbations. He is trying to get established with [facility] so he can be put on heart transplant list. [facility] does not take his insurance. CXR shows mild to moderate CHF. K 2.8. Glu 164. Mg 1.5. Trop 0.05. BNP 9053. 100% O2 sats. - Past Medical/Surgical History Diabetic: No -: HTN -: CHF -: Afib -: seizure X1 -: pacemaker/defibrillator -: hypothyroidism -: R ankle surgery -: laurie knee surgeries - Family History Father -: Heart disease, Hypertension Mother -: Heart disease, Hypertension, Lung disease, Diabetes Notes: COPD - Social History Smoking Status: Never smoker Alcohol use: No CD- Drugs: No Caffeine use: No Place of Residence: Home <Shemar Joseph - Last Filed: 02/07/21 22:54> Date of Service: 02/07/21 Primary Care Provider: Sumaya <Sue Armas - Last Filed: 02/09/21 19:34> Allergies No Known Allergies Allergy (Verified 10/23/18 04:39) Home Medications: Amiodarone HCl [Cordarone*] 200 mg PO BID 02/08/21 Aspirin [Aspirin EC 81 MG] 81 mg PO DAILY 02/08/21 Bumetanide 2 mg PO DAILY 02/08/21 Clopidogrel Bisulfate [Plavix*] 75 mg PO DAILY 02/08/21 Levothyroxine [Synthroid*] 0.05 mg PO ACB 02/08/21 Pantoprazole [Protonix Tab*] 40 mg PO DAILY 02/08/21 Potassium Chloride [Klor-Con 10] 20 meq PO DAILY 02/08/21 Pregabalin [Lyrica*] 50 mg PO DAILY 02/08/21 Sacubitril/Valsartan [Entresto 24 mg-26 mg Tablet] 1 tab PO DAILY 02/08/21 Spironolactone [Aldactone*] 25 mg PO BID 02/08/21 Zinc Sulfate [Zinc Sulfate*] 220 mg PO DAILY 02/08/21 metOLazone [Metolazone] 5 mg PO DAILY 02/08/21 Amiodarone HCl [Cordarone*] 200 mg PO BID #60 tab 02/09/21 Apixaban [Eliquis] 5 mg PO BID #60 tablet 02/09/21 Hydrocodone 10/APAP 325 [[place] 10/325*] 1 tab PO Q4H PRN #30 tab 02/09/21 Sacubitril/Valsartan [Entresto 24 mg-26 mg Tablet] 1 tab PO BID #60 tab 02/09/21 Spironolactone [Aldactone*] 25 mg PO BID #60 tab 02/09/21 Review of Systems General: Unremarkable Eyes: Unremarkable ENT: Unremarkable Respiratory: Shortness of Breath, SOB with Excertion, As per HPI Cardiovascular: Paroxysmal Noc. Dyspnea, As per HPI Gastrointestinal: Unremarkable Genitourinary: Unremarkable Musculoskeletal: Unremarkable Integumentary: Unremarkable Neurological: Unremarkable Lymphatics: Unremarkable <Shemar Joseph - Last Filed: 02/07/21 22:54> Physical Examination - Physical Exam General: Alert, In no apparent distress, Oriented x3, Cooperative, Obese HEENT: Atraumatic, Normocephalic, PERRLA, Mucous membr. moist/pink, EOMI, Sclerae nonicteric Neck: Supple, 2+ carotid pulse no bruit, JVD not distended, No Thyromegaly, No LAD Respiratory: Normal air movement, Crackles/rales Cardiovascular: Normal pulses, Normal S1 S2, No gallops, No rubs, No murmurs Capillary refill: <2 Seconds Gastrointestinal: Normal bowel sounds, Soft and benign, Non-distended, No ascites, No tenderness, No masses, No rebound, No guarding Musculoskeletal: No clubbing, No swelling, No contractures, No erythema, No tenderness, No warmth Integumentary: No rashes, No breakdown, No significant lesion, No tenderness/swelling, No erythema, No warmth, No cyanosis Neurological: Normal speech, Normal strength at 5/5 x4 extr, Normal tone, Sensation intact, Cranial nerves 3-12 intact, Normal affect Lymphatics: No axilla or inguinal lymphadenopathy - Studies Laboratory Data (last 24 hrs) 02/07/21 20:15: PT 14.0 H, INR 1.21 02/07/21 20:15: WBC 10.70, Hgb 11.8 L, Hct 35.0 L, Plt Count 268 02/07/21 20:15: Sodium 139, Potassium 2.8 L*, BUN 23 H, Creatinine 1.13, Glucose 164 H, Magnesium 1.5 L D, Total Bilirubin 0.8, AST 14 L, ALT 21, Alkaline Phosphatase 107 <Shemar Joseph - Last Filed: 02/07/21 22:54> Assessment and Plan - Problems (Diagnosis) (1) Hypertension Current Visit: Yes Status: Chronic Qualifiers: Hypertension type: essential hypertension Qualified Code(s): I10 - Essential (primary) hypertension (2) Cardiac LV ejection fraction 10-20% Onset Date: 10/24/18 Current Visit: No Status: Chronic (3) Hypothyroidism Current Visit: Yes Status: Chronic Qualifiers: Hypothyroidism type: unspecified Qualified Code(s): E03.9 - Hypothyroidism, unspecified (4) CHF exacerbation Current Visit: Yes Status: Acute Qualifiers: Heart failure type: unspecified Qualified Code(s): I50.9 - Heart failure, unspecified - Plan will continue home medications, will change oral bumex to IV daily weights, fluid restriction to 1500ccs cardiology consulted trend troponins, on telemetry potassium and magnesium protocol A1c pending pain management as needed - Advance Directives Does patient have a Living Will: No Does patient have a Durable POA for Healthcare: No <Shemar Joseph - Last Filed: 02/07/21 22:54> Discharge Plan: Home Plan to discharge in: 48 Hours - Code Status/Comfort Care Code Status Assessed: Yes Code Status: Full Code Critical Care: No Time Spent Managing Pts Care (In Minutes): 45 <Sue Armas - Last Filed: 02/09/21 19:34>
[2021-02-07] MEDS ORDERED: POTASSIUM CL SA 10 MEQ TAB PO ONE (22:51)
[2021-02-07] MEDS ORDERED: Magnesium Sulfate 2gm IVPB 2 G/50 ML BAG IV ONE (23:49)
[2021-02-07] MEDS ORDERED: ACETAMINOPHEN 500 MG TAB PO PRN (23:49)
[2021-02-07] MEDS ORDERED: ONDANSETRON 4 MG/2 ML VIAL IV PRN (23:49)
[2021-02-08] MEDS: HYDROMORPHONE HCL 0.5 MG/0.5 ML INJ IV PRN ×5 (00:21→20:18)
[2021-02-08] MEDS ORDERED: HYDROMORPHONE HCL 0.5 MG/0.5 ML INJ ONE ×2 (00:30→04:42)
[2021-02-08] MEDS ORDERED: ONDANSETRON 4 MG/2 ML VIAL ONE (00:30)
[2021-02-08] MEDS: KCL 20 MEQ/100 mL IVPB 20 MEQ/100 ML BAG IV SCH ×2 (02:29→05:39)
[2021-02-08] MEDS ORDERED: Magnesium Sulfate 2gm IVPB 2 G/50 ML BAG IV ONE (02:32)
[2021-02-08] MEDS ORDERED: KCL 20 MEQ/100 mL IVPB 20 MEQ/100 ML BAG IV ONE ×2 (02:43→04:42)
[2021-02-08 02:45] VITALS: BMI 46.2
[2021-02-08 04:42] LABS: Absolute Lymphocytes (CBC) 1.9 K/uL (0.7-4.9); Basophils % 0.1 % (0-1.3); Lymphocytes % 17.2 % (15.3-44.8); MPV 7.5 fL (7.6-11.3); RBC Red Blood Cell Count 3.65 M/uL (4.33-5.43)
[2021-02-08 04:46] LABS: Urine Appearance CLEAR (Clear); Urine Bilirubin NEGATIVE (Negative); Urine Blood NEGATIVE (Negative); Urine Color YELLOW (Yellow); Urine Glucose NEGATIVE (Negative); Urine Protein TRACE (Negative); Urine Specific Gravity 1.015 (1.005-1.030); Urine pH 5.5 (5.0-7.0)
[2021-02-08 05:10] LABS: Albumin 3.3 g/dL (3.4-5.0); Bilirubin Total 0.6 mg/dL (0.2-1.0); Magnesium 1.8 mg/dL (1.8-2.4); Phosphorus 3.7 mg/dL (2.5-4.9); Protein, Total 7.8 g/dL (6.4-8.2); Thyroid Stimulating Hormone 9.17 uIU/mL (0.360-3.740)
[2021-02-08 05:56] LABS: Urine Microscopic Reflex ORDER UMIC
[2021-02-08 05:58] LABS: Urine Bacteria NONE SEEN /HPF (NONE SEEN); Urine RBC <5 /HPF (NONE SEEN)
[2021-02-08] MEDS ORDERED: NA CHLORIDE 0.9% 50 ML ONE (06:56)
[2021-02-08] MEDS: INSULIN -REGULAR HUMAN 50 UNIT/0.5 ML ML SQ SCH ×2 (07:30→11:30)
[2021-02-08] MEDS: AMIODARONE HCL 200 MG TAB PO SCH ×2 (08:49→20:18)
[2021-02-08] MEDS: SPIRONOLACTONE 25 MG TABLET PO SCH ×2 (08:49→20:17)
[2021-02-08] MEDS: SACUBITRIL/VALSARTAN 24/26 MG TAB PO SCH ×2 (08:49→20:17)
[2021-02-08] MEDS: CLOPIDOGREL 75 MG TABLET PO SCH (08:50)
[2021-02-08] MEDS: ASPIRIN EC 81 MG TAB PO SCH (08:50)
[2021-02-08] MEDS: METOLAZONE 5 MG TABLET PO SCH (08:50)
[2021-02-08] MEDS ORDERED: ENOXAPARIN 40 MG/0.4 ML SQ SCH (09:00)
[2021-02-08] MEDS: BUMETANIDE 1 MG/4 ML VIAL IV SCH ×2 (09:00→20:16)
--- NOTE | 2021-02-08 10:37 | EKG ---
Test Date: 2021-02-07 Test Time: 19:51:35 Industrial Accountant: MERCEDES MEASUREMENT RESULTS: Intervals: Rate: 0 MS: QRSD: 0 QT: 0 QTc: 0 [place]: P: MS: QRS: 0 T: 0 INTERPRETIVE STATEMENTS: No QRS complexes found, no ECG analysis possible Compared to ECG 10/23/2018 01:21:59 Ventricular-paced complex(es) or rhythm no longer present Atrial-sensed ventricular-paced complex(es) or rhythm no longer present Electronically Signed On 02-08-21 10:36:26 CDT by Won Thomas
--- NOTE | 2021-02-08 16:43 | CON ---
Date of Consultation: 02/08/2021 Reason For Consultation: [id number] systolic congestive heart failure. History Of Present Illness: Mr. West is a 50-year-old white male. He is a patient of brianda Oleary has had chronic systolic congestive heart failure, severe obesity with a weight of 368 pounds . He is status post pacemaker, defibrillator. Apparently has been attempted to get on to the transp lant list at [facility], but failed because of his insurance. He is looking to get on the tr ansplant list at [facility]. He comes in with PND, orthopnea, pedal edema, palpitations. He denied any syncope. His defibrillator went off the last time about a month ago. He also has a history of h ypertension and atrial fibrillation. He has lost a few pounds since he has been in the hospital, but continues to have some shortness of breath. His EKG showed a paced rhythm. His chest x-ray showed mild to moderate congestive heart failure. Allergies: NONE. Review of Systems: Negative. Social History: Negative. Family History: Noncontributory. Medications: At home include aspirin, Lipitor, Lasix 80 b.i.d. He takes metoprolol 25 mg daily. He is on lisinopril 20 mg daily, metolazone 20 mg daily, Aldactone 25 mg daily. Physical Examination: General: When I saw him, his vital signs were stable. He was afebrile. He was in atrial fibrillati on at a rate of 110. HEENT: Negative. Neck: Supple. No bruit. Chest: Some rales both bases. Cardiac: Paced rhythm. No murmurs, gallops, or rubs. Abdomen: Obese, but benign. Extremities: 1+ edema. Diagnostic Data: His white count was 11, creatinine is 1, hemoglobin is 10.8, potassium is 3.0. His BNP was 9053. His TSH was 9.17. Chest x-ray and EKGs were listed earlier. Impression And Plan: [id number] systolic congestive heart failure. The patient is on Lasix, s pironolactone, and metolazone from a diuretic standpoint. He is on Entresto. He really should be on carvedilol. He is already on aspirin and Plavix. He is on amiodarone as well. I am surprised he i s not on any blood thinners at home, but I will discuss the case further with him. We will continue IV diuresis right now. When he goes home, we will continue his home medication, but make sure he is on Entresto and make sure he is on an anticoagulant and I will discuss his case further with Dr. Italo ellis. We will get him connected with the Heart Transplant Service in [place] at [facility] as an outpat ient. I will discuss the case further with Dr. Armas. CARY/MAYRA Voice ID: [id number] Report ID: [id number]
[2021-02-08] MEDS: HYDROCODONE/APAP 10/325 TAB PO PRN (17:50)
[2021-02-08] MEDS: APIXABAN 5 MG TABLET PO SCH (20:18)
[2021-02-08] MEDS ORDERED: POTASSIUM CL SA 10 MEQ TAB PO ONE (21:00)
[2021-02-09] MEDS: HYDROMORPHONE HCL 0.5 MG/0.5 ML INJ IV PRN ×5 (04:03→16:25)
[2021-02-09 06:25] LABS: Magnesium 1.8 mg/dL (1.8-2.4); Potassium 3.2 mmol/L (3.5-5.1)
[2021-02-09] MEDS: AMIODARONE HCL 200 MG TAB PO SCH ×2 (08:26→21:03)
[2021-02-09] MEDS: CLOPIDOGREL 75 MG TABLET PO SCH (08:26)
[2021-02-09] MEDS: APIXABAN 5 MG TABLET PO SCH ×2 (08:26→21:03)
[2021-02-09] MEDS: SPIRONOLACTONE 25 MG TABLET PO SCH ×2 (08:27→21:02)
[2021-02-09] MEDS: SACUBITRIL/VALSARTAN 24/26 MG TAB PO SCH ×2 (08:28→21:03)
[2021-02-09] MEDS: ASPIRIN EC 81 MG TAB PO SCH (08:28)
[2021-02-09] MEDS: METOLAZONE 5 MG TABLET PO SCH (08:29)
[2021-02-09] MEDS ORDERED: MAGNESIUM SULFATE 1 gm IVPB 1 GM/100 ML BAG IV ONE (09:00)
[2021-02-09] MEDS ORDERED: POTASSIUM 25 MEQ EFFERV TAB PO ONE (09:00)
[2021-02-09] MEDS: HYDROCODONE/APAP 10/325 TAB PO PRN ×3 (10:09→23:52)
[2021-02-09] MEDS: BUMETANIDE 1 MG/4 ML VIAL IV SCH ×2 (11:56→21:54)
[2021-02-09] MEDS ORDERED: BUMETANIDE 1 MG/4 ML VIAL IV ONE (15:41)
[2021-02-09] MEDS ORDERED: HYDROMORPHONE HCL 0.5 MG/0.5 ML INJ IV PRN (18:22)
--- NOTE | 2021-02-09 19:40 | P.PN ---
Subjective Date of Service: 02/08/21 Patient's respiratory status is stable. Patient is clinically doing better. Patient was scheduled to be on the transplant list at [facility] but his insurance change. He spoke to his production floater, , who recommended patient tries [facility]'s per his insurance company. At this time, patient is slowly improving and possibly stable for discharge over the next 24-48 hr. Review of Systems 10-point ROS is otherwise unremarkable Physical Examination - Vital Signs Temperature: 97.7 F Blood Pressure: 96/61 Pulse: 77 Respirations: 22 Pulse Ox (%): 96 - Physical Exam General: Alert, In no apparent distress, Oriented x3, Obese Respiratory: Clear to auscultation bilaterally, Diminished Cardiovascular: Regular rate/rhythm, Normal S1 S2, Systolic murmur Gastrointestinal: Normal bowel sounds, No tenderness Musculoskeletal: No clubbing, No tenderness, Swelling Integumentary: No rashes Neurological: Sensation intact, Cranial nerves 3-12 intact - Studies Medications List Reviewed: Yes Assessment & Plan - Problems (Diagnosis) (1) Acute systolic CHF (congestive heart failure) Current Visit: Yes Status: Acute (2) Hypertension Current Visit: Yes Status: Chronic Qualifiers: Hypertension type: essential hypertension Qualified Code(s): I10 - Essen tial (primary) hypertension (3) Hypothyroidism Current Visit: Yes Status: Chronic Qualifiers: Hypothyroidism type: unspecified Qualified Code(s): E03.9 - Hypothyroidism, unspecified (4) Morbid obesity Onset Date: 10/24/18 Current Visit: No Status: Acute (5) Cardiac LV ejection fraction 10-20% Onset Date: 10/24/18 Current Visit: No Status: Chronic - Plan 1. Echocardiogram revealed any ejection fraction of less than 10%; patient was attempting to be on the transplant list but he was requiring to change hospitals. He will be sent attempting to do this through our local Cardiology group. Continue with close outpatient follow-up 2. Continue with medication for cardiac disease 3. We will start patient on a Beta jesus 4. Cardiology consultation 5. Aggressive diuresis 6. Strict I's and O's 7. Repeat CXR 8. Daily weights 9. Chronic low back pain and continue with pain control 10. Education regarding diet and treatment of congestive heart failure Discharge Plan: Home Plan to discharge in: Greater than 2 days - Advance Directives Does patient have a Living Will: No Does patient have a Durable POA for Healthcare: No - Code Status/Comfort Care Code Status: Full Code Critical Care: No Time Spent Managing PTS Care (In Minutes): 35
--- NOTE | 2021-02-09 19:46 | P.PN ---
Date of Service: 02/09/21 Subjective Patient's respiratory status is stable. However, he still does not feel like he is ready to go home. He has 600cc of urine output during the day. With such a poor ejection fraction his long-term prognosis is poor. He will have chronic shortness of breath/dyspnea on exertion. Overall, his congestive heart failure appears to be compensated. I spoke with Cardiology and they were okay with discharge. However, in light of the fact that the patient does not feel well enough to go home I will hold his discharge and continue with diuresing. Repeat chest x-ray. Repeat labs including BNP in a.m.. Patient is clinically doing better. Will use oral pain medications for his low back pain. Change IV Dilaudid Q 12 Review of Systems 10-point ROS is otherwise unremarkable Physical Examination - Vital Signs Reviewed - Physical Exam General: Alert, In no apparent distress, Oriented x3, Obese Respiratory: Clear to auscultation bilaterally, Diminished Cardiovascular: Regular rate/rhythm, Normal S1 S2, Systolic murmur Gastrointestinal: Normal bowel sounds, No tenderness Musculoskeletal: No clubbing, No tenderness, Swelling Integumentary: No rashes Neurological: Sensation intact, Cranial nerves 3-12 intact - Studies Medications List Reviewed: Yes Assessment & Plan - Problems (Diagnosis) (1) Acute systolic CHF (congestive heart failure) Current Visit: Yes Status: Acute (2) Hypertension Current Visit: Yes Status: Chronic Qualifiers: Hypertension type: essential hypertension Qualified Code(s): I10 - Essential (primary) hypertension (3) Hypothyroidism Current Visit: Yes Status: Chronic Qualifiers: Hypothyroidism type: unspecified Qualified Code(s): E03.9 - Hypothyroidism, unspecified (4) Morbid obesity Onset Date: 10/24/18 Current Visit: No Status: Acute (5) Cardiac LV ejection fraction 10-20% Onset Date: 10/24/18 Current Visit: No Status: Chronic - Plan Continue with plan of care as mentioned below. We were planning on discharging patient but he did not feel he could go home at this time. Nurses felt that this may be related to his need for chronic pain control. At this time he will be on oral pain medications. Continue IV diuretics. Monitor his renal function. Repeat labs in the morning. 1. Echocardiogram revealed any ejection fraction of less than 10%; patient was attempting to be on the transplant list but he was requiring to change hospitals. He will be sent attempting to do this through our local Cardiology group. Continue with close outpatient follow-up 2. Continue with medication for cardiac disease 3. Continue with low-dose Beta jesus 4. Cardiology consultation appreciated 5. Continue with aggressive diuresis 6. Strict I's and O's 7. Repeat CXR 8. Daily weights 9. Chronic low back pain and continue with pain control 10. Heart failure clinic as an outpatient; may need to be on transplant list going forward
--- NOTE | 2021-02-09 20:34 | RAD REPORT ---
EXAM DESCRIPTION: Anny Single View02/09/2021 6:54 pm CLINICAL HISTORY: Shortness of breath COMPARISON: February 07, 2021 FINDINGS: The lateral lung bases are hazy. Remainder of the pulmonary opacities have resolved. The heart remains enlarged Pacemaker leads are in place. IMPRESSION: Lateral lung bases are hazy probably secondary to overlying soft tissue. Infiltrates can have this appearance. If the patient has symptoms to suggest a bilateral infiltrates, a PA and later al chest series would be recommended Remainder the bilateral pulmonary opacities appear resolved
[2021-02-10] MEDS: HYDROCODONE/APAP 10/325 TAB PO PRN ×2 (06:08→11:26)
[2021-02-10 06:09] LABS: Absolute Lymphocytes (CBC) 1.6 K/uL (0.7-4.9); Basophils % 0.8 % (0-1.3); Hematocrit 32.8 % (39.6-49.0); Lymphocytes % 17.2 % (15.3-44.8); MPV 7.4 fL (7.6-11.3); RBC Red Blood Cell Count 3.62 M/uL (4.33-5.43)
[2021-02-10 06:43] LABS: Albumin 3.3 g/dL (3.4-5.0); Bilirubin Total 0.5 mg/dL (0.2-1.0); Magnesium 1.8 mg/dL (1.8-2.4); Potassium 3.1 mmol/L (3.5-5.1); Protein, Total 7.5 g/dL (6.4-8.2)
--- NOTE | 2021-02-10 07:50 | P.DS ---
Admission Date: 02/07/21 Discharge Date: 02/10/21 Primary Care Provider: None; Cardiology-Dr. Shell Disposition: ROUTINE DISCHARGE Discharge Condition: GOOD Reason for Admission: SOB Consultations: Cardiology-Dr. Thomas Procedures: COVID: Negative CXR: COMPARISON: Chest Single View dated 10/23/2018 FINDINGS: Portable technique limits examination quality. Mild pulmonary edema. The heart is enlarged in size with multilead pacer/defibrillator device. No displaced fractures. IMPRESSION: Mild to moderate CHF. Medical Problem List: Dyspnea secondary to acute on chronic systolic congestive heart failure CAD Hypertension Atrial fibrillation on chronic anticoagulation therapy Hyperlipidemia Chronic pain Brief History of Present Illness: 50 yo male with CHF (EF 10%) with a defibrillator, HTN, hypothyroidism here today for acute CHF exacerbation. For the last few days he reports SOB, TRINIDAD, wheezing, PND. Denies orthopnea, edema, cough. He was last admitted for an exacerbation 3 weeks ago, and was admitted to [facility] for 1 week. He normally is admitted for 4-5 days for his exacerbations. He is trying to get established with [facility] so he can be put on heart transplant list. [facility] does not take his insurance. CXR shows mild to moderate CHF. K 2.8. Glu 164. Mg 1.5. Trop 0.05. BNP 9053. 100% O2 sats. Hospital Course: Patient presented with dyspnea. This was secondary to acute on chronic systolic CHF. Patient with multiple medical problems including CHF, CAD, hypothyroidism, and atrial fibrillation. Patient has a pacemaker defibrillator. Patient was s een and evaluated by cardiology. Medications have been adjusted. Patient received IV diuresis with improvement. Patient on room air at discharge. No significant chest pain or shortness of breath at discharge. At discharge patient will continue with the 1500 cc/day fluid restriction and low-salt diet. He is to monitor his weight daily. If his weight increases by more than 5 pounds he is to contact his PCP or cardiology for further recommendation. At discharge patient will continue with current medications including aspirin 81 mg daily, Plavix 75 mg daily, Aldactone 25 mg 1 pill twice daily, Bumex 2 mg 1 pill daily, metolazone 5 mg once daily and Klor-Con 20 mEq daily. The patient will also continue with Entresto 24/26 mg 1 pill twice daily. The patient will follow up with cardiology in 1 week to follow-up his hospitalization. Cardiology plans to get patient connected with the heart transplant service team in [place] at [facility] as an outpatient. Education on CHF provided. Patient with atrial fibrillation now on chronic anticoagulation therapy. At discharge patient will continue with amiodarone 200 mg 1 pill twice daily and Eliquis 5 mg 1 pill twice daily. Education on both medications provided. Recommend follow-up with cardiology as directed. Patient with hypothyroidism. At discharge patient will continue with levothyroxine 50 mcg daily. Patient with GERD. At discharge patient will continue with Protonix 40 mg 1 pill daily. Patient with chronic pain. At discharge patient will continue with Lyrica 50 mg daily. Patient would benefit with referral to chronic pain management to further address. Patient plans to establish care with a PCP to further address his conditions. Vital Signs/Physical Exam: Temp Pulse Resp BP Pulse Ox 97.4 F 92 H 16 107/66 93 02/10/21 04:00 02/10/21 04:00 02/10/21 07:08 02/10/21 04:00 02/10/21 07:08 General: Alert, In no apparent distress, Oriented x3, Cooperative HEENT: Atraumatic Neck: Supple Respiratory: Clear to auscultation bilaterally, Normal air movement Cardiovascular: Normal pulses, Regular rate/rhythm Gastrointestinal: Normal bowel sounds, No masses, No rebound, No guarding Integumentary: No tenderness/swelling Neurological: Normal speech, Normal strength at 5/5 x4 extr, Normal tone, Normal affect Laboratory Data at Discharge: WBC 9.20 K/uL (4.3-10.9) D 02/10/21 05:44 Hgb 11.0 g/dL (13.6-17.9) L 02/10/21 05:44 Hct 32.8 % (39.6-49.0) L 02/10/21 05:44 Plt Count 274 K/uL (152-406) 02/10/21 05:44 PT 14.0 SECONDS (9.5-12.5) H 02/07/21 20:15 INR 1.21 02/07/21 20:15 Sodium 135 mmol/L (136-145) L 02/10/21 05:44 Potassium 3.1 mmol/L (3.5-5.1) L 02/10/21 05:44 BUN 30 mg/dL (7-18) H 02/10/21 05:44 Creatinine 1.16 mg/dL (0.55-1.3) 02/10/21 05:44 Glucose 111 mg/dL (74-106) H 02/10/21 05:44 Phosphorus 3.7 mg/dL (2.5-4.9) 02/08/21 04:30 Magnesium 1.8 mg/dL (1.8-2.4) 02/10/21 05:44 Total Bilirubin 0.5 mg/dL (0.2-1.0) 02/10/21 05:44 AST 12 U/L (15-37) L 02/10/21 05:44 ALT 18 U/L (12-78) 02/10/21 05:44 Alkaline Phosphatase 88 U/L (45-117) 02/10/21 05:44 Troponin I Cancelled 02/09/21 04:00 Triglycerides 115 mg/dL (<150) 02/08/21 04:30 Cholesterol 174 mg/dL (<200) 02/08/21 04:30 HDL Cholesterol 37 mg/dL (40-60) L 02/08/21 04:30 Cholesterol/HDL Ratio 4.70 02/08/21 04:30 Home Medications: Amiodarone HCl [Cordarone*] 200 mg PO BID 02/08/21 Aspirin [Aspirin EC 81 MG] 81 mg PO DAILY 02/08/21 Bumetanide 2 mg PO DAILY 02/08/21 Clopidogrel Bisulfate [Plavix*] 75 mg PO DAILY 02/08/21 Levothyroxine [Synthroid*] 0.05 mg PO ACB 02/08/21 Pantoprazole [Protonix Tab*] 40 mg PO DAILY 02/08/21 Potassium Chloride [Klor-Con 10] 20 meq PO DAILY 02/08/21 Pregabalin [Lyrica*] 50 mg PO DAILY 02/08/21 Sacubitril/Valsartan [Entresto 24 mg-26 mg Tablet] 1 tab PO DAILY 02/08/21 Spironolactone [Aldactone*] 25 mg PO BID 02/08/21 Zinc Sulfate [Zinc Sulfate*] 220 mg PO DAILY 02/08/21 metOLazone [Metolazone] 5 mg PO DAILY 02/08/21 Amiodarone HCl [Cordarone*] 200 mg PO BID #60 tab 02/09/21 Apixaban [Eliquis] 5 mg PO BID #60 tablet 02/09/21 Hydrocodone 10/APAP 325 [[place] 10/325*] 1 tab PO Q4H PRN #30 tab 02/09/21 Sacubitril/Valsartan [Entresto 24 mg-26 mg Tablet] 1 tab PO BID #60 tab 02/09/21 Spironolactone [Aldactone*] 25 mg PO BID #60 tab 02/09/21 New Medications: Spironolactone [Aldactone*] 25 mg PO BID #60 tab Amiodarone HCl [Cordarone*] 200 mg PO BID #60 tab Apixaban [Eliquis] 5 mg PO BID #60 tablet Sacubitril/Valsartan [Entresto 24 mg-26 mg Tablet] 1 tab PO BID #60 tab Hydrocodone 10/APAP 325 [[place] 10/325*] 1 tab PO Q4H PRN #30 tab PRN Reason: Pain Scale 8-10 (Severe) Physician Discharge Instructions: Patient presented with dyspnea. This was secondary to acute on chronic systolic CHF. Patient with multiple medical problems including CAD, hypertension, hyperlipidemia, and atrial fibrillation. Patient was seen and evaluated by cardiology. Medications have been adjusted. Patient received IV diuresis with improvement. Patient on room air at discharge. No significant chest pain or shortness of breath at discharge. At discharge patient will continue with the 1500 cc/day fluid restriction and low-salt diet. He is to monitor his weight daily. If his weight increases by more than 5 pounds he is to contact his PCP or cardiology for further recommendation. At discharge patient will continue with current medications including aspirin 81 mg daily, Plavix 75 mg daily, Aldactone 25 mg 1 pill twice daily, Bumex 2 mg 1 pill daily, metolazone 5 mg once daily and Klor-Con 20 mEq daily. The patient will also continue with Entresto 24/26 mg 1 pill twice daily. The patient will follow up with [facility] in 1 week to follow-up his hospitalization. Cardiology plans to get patient connected with the heart transplant service team in [place] at [facility] as an outpatient. Education on CHF provided. Patient with atrial fibrillation now on chronic anticoagulation therapy. At discharge patient will continue with amiodarone 200 mg 1 pill twice daily and Eliquis 5 mg 1 pill twice daily. Education on both medications provided. Recommend follow-up with cardiology as directed. Patient with hypothyroidism. At discharge patient will continue with levothyroxine 50 mcg daily. Patient with GERD. At discharge patient will continue with Protonix 40 mg 1 pill daily. Patient with chronic pain. At discharge patient will continue with Lyrica 50 mg daily. Patient would benefit with referral to chronic pain management to further address. Patient plans to establish care with a PCP to further address his conditions. Diet: AHA Activity: Fall precautions Followup: SUPRIYA SHELL [Primary Care Provider] - Won Thomas MD [ACTIVE - CAN ADMIT] - 1-2 Weeks (Call to make an appointment. ) Time spent managing pt's care (in minutes): 55
[2021-02-10] MEDS ORDERED: MAGNESIUM SULFATE 1 gm IVPB 1 GM/100 ML BAG IV ONE (08:00)
[2021-02-10] MEDS: BUMETANIDE 1 MG/4 ML VIAL IV SCH (08:01)
[2021-02-10] MEDS: ASPIRIN EC 81 MG TAB PO SCH (08:02)
[2021-02-10] MEDS: CLOPIDOGREL 75 MG TABLET PO SCH (08:02)
[2021-02-10] MEDS: SPIRONOLACTONE 25 MG TABLET PO SCH (08:02)
[2021-02-10] MEDS: SACUBITRIL/VALSARTAN 24/26 MG TAB PO SCH (08:02)
[2021-02-10] MEDS: APIXABAN 5 MG TABLET PO SCH (08:02)
[2021-02-10] MEDS: AMIODARONE HCL 200 MG TAB PO SCH (08:03)
--- NOTE | 2021-02-10 08:18 | P.DS ---
Admission Date: 02/07/21 Discharge Date: 02/10/21 Primary Care Provider: None; Cardiology-Dr. Cagle Disposition: ROUTINE DISCHARGE Discharge Condition: GOOD Reason for Admission: SOB Consultations: Cardiology-Dr. Thomas Brief History of Present Illness: Primary Care Provider: [facility]esta Reason for admission: CHF exacerbation History of Present Illness: Mr. West is a 50 yo M with CHF (EF 10%) with a defibrillator, HTN, hypothyroidism here today for acute CHF exacerbation. For the last few days he reports SOB, TRINIDAD, wheezing, PND. Denies orthopnea, edema, cough. He was last admitted for an exacerbation 3 weeks ago, and was admitted to [facility] for 1 week. He normally is admitted for 4-5 days for his exacerbations. He is trying to get established with [facility] so he can be put on heart transplant list. [facility] does not take his insurance. CXR shows mild to moderate CHF. K 2.8. Glu 164. Mg 1.5. Trop 0.05. BNP 9053. 100% O2 sats. - Past Medical/Surgical History Vital Signs/Physical Exam: Temp Pulse Resp BP Pulse Ox 97.4 F 93 H 16 108/67 93 02/10/21 04:00 02/10/21 08:02 02/10/21 07:08 02/10/21 08:02 02/10/21 07:08 Laboratory Data at Discharge: WBC 9.20 K/uL (4.3-10.9) D 02/10/21 05:44 Hgb 11.0 g/dL (13.6-17.9) L 02/10/21 05:44 Hct 32.8 % (39.6-49.0) L 02/10/21 05:44 Plt Count 274 K/uL (152-406) 02/10/21 05:44 PT 14.0 SECONDS (9.5-12.5) H 02/07/21 20:15 INR 1.21 02/07/21 20:15 Sodium 135 mmol/L (136-145) L 02/10/21 05:44 Potassium 3.1 mmol/L (3.5-5.1) L 02/10/21 05:44 BUN 30 mg/dL (7-18) H 02/10/21 05:44 Creatinine 1.16 mg/dL (0.55-1.3) 02/10/21 05:44 Glucose 111 mg/dL (74-106) H 02/10/21 05:44 Phosphorus 3.7 mg/dL (2.5-4.9) 02/08/21 04:30 Magnesium 1.8 mg/dL (1.8-2.4) 02/10/21 05:44 Total Bilirubin 0.5 mg/dL (0.2-1.0) 02/10/21 05:44 AST 12 U/L (15-37) L 02/10/21 05:44 ALT 18 U/L (12-78) 02/10/21 05:44 Alkaline Phosphatase 88 U/L (45-117) 02/10/21 05:44 Troponin I Cancelled 02/09/21 04:00 Triglycerides 115 mg/dL (<150) 02/08/21 04:30 Cholesterol 174 mg/dL (<200) 02/08/21 04:30 HDL Cholesterol 37 mg/dL (40-60) L 02/08/21 04:30 Cholesterol/HDL Ratio 4.70 02/08/21 04:30 Home Medications: Amiodarone HCl [Cordarone*] 200 mg PO BID 02/08/21 Aspirin [Aspirin EC 81 MG] 81 mg PO DAILY 02/08/21 Bumetanide 2 mg PO DAILY 02/08/21 Clopidogrel Bisulfate [Plavix*] 75 mg PO DAILY 02/08/21 Levothyroxine [Synthroid*] 0.05 mg PO ACB 02/08/21 Pantoprazole [Protonix Tab*] 40 mg PO DAILY 02/08/21 Potassium Chloride [Klor-Con 10] 20 meq PO DAILY 02/08/21 Pregabalin [Lyrica*] 50 mg PO DAILY 02/08/21 Sacubitril/Valsartan [Entresto 24 mg-26 mg Tablet] 1 tab PO DAILY 02/08/21 Spironolactone [Aldactone*] 25 mg PO BID 02/08/21 Zinc Sulfate [Zinc Sulfate*] 220 mg PO DAILY 02/08/21 metOLazone [Metolazone] 5 mg PO DAILY 02/08/21 Amiodarone HCl [Cordarone*] 200 mg PO BID #60 tab 02/09/21 Apixaban [Eliquis] 5 mg PO BID #60 tablet 02/09/21 Hydrocodone 10/APAP 325 [[place] 10/325*] 1 tab PO Q4H PRN #30 tab 02/09/21 Sacubitril/Valsartan [Entresto 24 mg-26 mg Tablet] 1 tab PO BID #60 tab 02/09/21 Spironolactone [Aldactone*] 25 mg PO BID #60 tab 02/09/21 New Medications: Spironolactone [Aldactone*] 25 mg PO BID #60 tab Amiodarone HCl [Cordarone*] 200 mg PO BID #60 tab Apixaban [Eliquis] 5 mg PO BID #60 tablet Sacubitril/Valsartan [Entresto 24 mg-26 mg Tablet] 1 tab PO BID #60 tab Hydrocodone 10/APAP 325 [[place] 10/325*] 1 tab PO Q4H PRN #30 tab PRN Reason: Pain Scale 8-10 (Severe) Physician Discharge Instructions: PROBLEM: Congestive Heart Failure GOAL: Clear understanding of disease process INSTRUCTIONS: Diet: heart healthy Activity: Fall precautions OK TO DC IV AND DC HOME FOLLOW-UP WITH PRIMARY CARE PROVIDER IN 1-2 WEEKS FOLLOW-UP WITH Cardiology, , IN 1-2 WEEKS RETURN TO THE ER IF symptoms worsen CALL or TEXT DR. BIRD AT [phone] IF ANY QUESTIONS REGARDING HOSPITAL STAY. PLEASE CALL THE FLOOR AT [phone] IF ANY MEDICATION OR NURSING QUESTIONS. Diet: AHA Activity: Fall precautions Followup: SUPRIYA CAGLE [Primary Care Provider] - Won Thomas MD [ACTIVE - CAN ADMIT] - 1-2 Weeks (Call to make an appointment. )
[2021-02-10] MEDS ORDERED: POTASSIUM CL SA 10 MEQ TAB PO ONE (09:00)
[2021-02-10 09:23] VITALS: O2SAT 94
[2021-02-10] MEDS: METOLAZONE 5 MG TABLET PO SCH (09:52)
[2021-02-10 14:17] VITALS: BP 91/55; TEMP 97
== END 2021-02-10 16:08 | disposition home or self-care (01) | DRG 292 ==
LOC: ER 19:40 → ERHOLD 23:21 → 2ND 02-08 07:32
PROVIDERS: ADMIT Hospitalist; ATTEND Family Medicine
DX: I11.0 Hypertensive heart disease with heart failure (principal); Z68.42 Body mass index [BMI] 45.0-49.9, adult; I50.43 Acute on chronic combined systolic (congestive) and diastolic (congestive) heart failure; I10 Essential (primary) hypertension; I48.91 Unspecified atrial fibrillation; R56.9 Unspecified convulsions; E03.9 Hypothyroidism, unspecified; E66.01 Morbid (severe) obesity due to excess calories; K21.9 Gastro-esophageal reflux disease without esophagitis; G89.29 Other chronic pain; Z95.810 Presence of automatic (implantable) cardiac defibrillator; Z79.01 Long term (current) use of anticoagulants
CPT/HCPCS: 0240U; 36415; 71045; 80048; 80053; 80061; 80076; 81003; 81015; 82947; 83036; 83735; 83880; 84100; 84132; 84439; 84443; 84484; 85025; 85610; 93005; 94760; 96374; 96375; 99285; J1170; J1650; J1940; J2405; J3475; J3480

== ENCOUNTER 2021-02-25 21:10 | Inpatient (IN) | payer OTHER ==
--- OUTSIDE RECORDS SUMMARY | 2021-02-25 21:16 | XMS REPORT | Continuity of Care Document ---
:1970 Author Organization [facility] t Address [address] [place] [address] Care Team Providers Name Role Phone Yusra [...] Attending Clinician Mario Lopez MD Attending Clinician [phone] Geovani Attending Clinician Lorena FULLER, O. Attending Clinician Sinai FULLER, Baudilio Attending Clinician Jose Luis Tucker MD Attending Clinician Sylvie Elias MD Attending Clinician Jazmín Chase MD, Tran Attending Clinician [phone] Lacy FULLER, Dmitriy Attending Clinician Lisandro León MD Attending Clinician Elvi Prado MD Attending Clinician Emery FRIAS Attending Clinician Sloane Tucker DO Attending Clinician Titus FULLER, Waldo Attending Clinician Vaibhav Zabala MD Attending Clinician Virgen FULLER MKarolina Attending Clinician Leela FULLER Attending Clinician ATTAR Attending Clinician Unavailable ÓCSAR Attending Clinician Unavailable Di FULLER, Josey Attending Clinician HENRI Admitting Clinician Unavailable ROLAND Admitting Clinician Unavailable EDUARDO Admitting Clinician Unavailable KOMAL Admitting Clinician Unavailable JAZMÍN CHASE Admitting Clinician Unavailable NAKUL Admitting Clinician Unavailable Payers Payer Name Policy Type Policy Effective Date Expiration Date Sour ce Number [facility] [id number] 2019 [place] STAR+ 00:00:00 Jewish [id number] 2019- PresentHMO Problems Condition Condition Condition Status Onset Resolution Last Treating Co mments Source Name Details Category Date Date Treatment Clinician Date Acute Acute Disease Active [place] systolic systolic 4-11 Method i heart heart 00:00: st failure failure 00 Acute on Acute on Disease Active 2019-10 [place] chronic chronic 0-21 [facility] heart heart 00:00: st failure failure 00 Acute Acute Disease Active 2019-10 [place] decompensa decompensa 0-15 Me thodi neela heart [...] 00:00: st 00 Acute Acute Disease Active [place] pulmonary pulmonary 8-25 Meth bruno edema edema 00:00: st 00 Syncope Syncope Disease Active [place] 8-03 Methodi 00:00: st 00 Hypotensio Hypotensio Disease Active H mary annston n n 8-03 Methodi 00:00: st 00 COVID-19 COVID-19 Disease Active [place] virus virus 8-03 Methodi detected detected 00:00: st 00 Pneumonia Pneumonia Disease Active Lori ston due to due to 7-05 Methodi COVID-19 COVID-19 00:00: st virus virus 00 Chronic Chronic Disease Active [place] passive passive 2-03 Methodi congestion congestion 00:00: st of liver of liver 00 Metabolic Metabolic Disease Active Lori ston syndrome syndrome 2-03 Method i 00:00: st 00 Bilateral Bilateral Disease Active Lori ston lower lower 1-22 Methodi extremity extremity 00:00: st edema edema 00 Stasis Stasis Disease Active [place] dermatitis dermatitis 8-04 Me thodi 00:00: st 00 Acquired Acquired Disease Active [place] hypothyroi hypothyroi 4-08 Me thodi dism dism 00:00: st 00 Essential Essential Disease Active Lori ston hypertensi hypertensi 4-07 Me thodi on on 00:00: st 00 Cellulitis Cellulitis Disease Active [place] 4-02 Methodi 00:00: st 00 NSVT NSVT Disease Active [place] (nonsustai (nonsustai 3-10 Me thodi kerry ekrry 00:00: st ventricula ventricula 00 r r tachycardi tachycardi a) a) Morbid Morbid Disease Active [place] obesity obesity 8-19 Methodi 00:00: st 00 CHF CHF Disease Active [place] (congestiv (congestiv 7-08 Me thodi e heart e heart 00:00: st failure) failure) 00 Hypoxia Hypoxia Disease Resolve 2020-07-02 2020-07-02 [place] d 9- 00:00:00 11:53:03 Method i 00:00: st 00 Shortness Shortness Disease Resolve 2020-07-02 2020-07-02 [place] of breath of breath d 06-30 00:00:00 11:53:04 Methodi 00:00: st 00 Acute Acute Disease Resolve 2020-07-02 2020-07-02 [place] combined combined d 6-19 00:00:00 11:53:06 Me thodi systolic systolic 00:00: st and and 00 diastolic diastolic HF (heart HF (heart failure) failure) Acute on Acute on Disease Resolve 2020-04-29 2020-04-29 [place] chronic chronic d 04-26 00:00:00 08:47:14 Meth bruno combined combined 00:00: st systolic systolic 00 and and diastolic diastolic congestive congestive heart heart failure failure Atypical Atypical Disease Resolve 2020-04-29 2020-04-29 [place] chest pain chest pain d 8- 00:00:00 08:47:17 Methodi 00:00: st 00 Acute Acute Disease Resolve 2020-04-26 2020-04-26 [place] respirator respirator d 11-12 00:00:00 14:08:59 Methodi y distress y distress 00:00: st 00 Pulmonary Pulmonary Disease Resolve 2020-04-26 2020-04-26 [place] embolism embolism d 11-12 00:00:00 14:09:23 Me thodi with acute with acute 00:00: st cor cor 00 pulmonale pulmonale Cardiac Cardiac Disease Resolve 2020-04-26 2020-04-26 [place] arrest arrest d 11-12 00:00:00 14:09:45 Method i 00:00: st 00 Hyponatrem Hyponatrem Disease Resolve 2020-04-26 2020-04-26 [place] ia ia d 10-29 00:00:00 14:09:40 Method i 00:00: st 00 Acute on Acute on Disease Resolve 2020-04-26 2020-04-26 [place] chronic chronic d 10-29 00:00:00 14:08:57 Meth bruno respirator respirator 00:00: st y failure y failure 00 NSTEMI NSTEMI Disease Resolve 2018-102020-04-26 2020-04-26 [place] (non-ST (non-ST d - 00:00:00 14:09:25 Meth bruno elevated elevated 00:00: st myocardial myocardial 00 infarction infarction ) ) Cellulitis Cellulitis Disease Resolve 2020-04-26 2020-04-26 [place] of right of right d 01-12 00:00:00 14:09:06 Me thodi lower lower 00:00: st extremity extremity 00 Acute on Acute on Disease Resolve 2020-04-26 2020-04-26 [place] chronic chronic d 01-08 00:00:00 14:08:52 Meth bruno congestive congestive 00:00: st heart heart 00 failure failure CHF CHF Disease Resolve 2020-04-26 2020-04-26 [place] exacerbati exacerbati d 05-22 00:00:00 14:09:07 Methodi on on 00:00: st 00 Allergies, Adverse Reactions, Alerts This patient has no known allergies or adverse reactions. Family History Family Member Diagnosis Comments Start Date Stop Date Source Natural father Hypertension [place] Jewish Natural mother Diabetes [facility] thodist Natural mother Heart disease [facility] Social History Social Habit Start Date Stop Date Quantity Comments Source History of Chews Tobacco [place] Met trina tobacco use Tobacco use and 2021-01-12 2021-01-12 Never used [facility] ethodist exposure 00:00:00 00:00:00 Alcohol intake 2021-01-12 2021-01-12 [facility]00 non-drinker of alcohol (finding) Sex Ass[birth year] [facility] ethodist 00:00:00 00:00:00 Smoking Status Start Date Stop Date Source Never smoker [place] Jaisonis t Medications Ordered Filled Start Stop Current Ordering Indication Dosage Frequency Signature Comments Components Source Medication Medication Date Date Medication? Clinician (SIG) Name Name levothyroxi 50ug QD Take 1 Lori ston ne [...] st 40 MG EC 50 tablet amIODarone 0 Yes 200mg Q.5D Take 200 [place] [...] per times a tablet day. bacitracin 2020- No Q.5D Apply [place] ointment 4-15 05-15 topically Metho di tube 00:00: 23:59 2 (two) st 00 :00 times a day for 30 days. cyclobenzap 2020- No 10mg Q.[id number] Take 10 mg [place] rine 12-31 [id number] by mouth 3 Me thodi (FLEXERIL) 14:54: 00:00 3D (three) st 10 mg 14 :00 times a tablet day as needed for muscle spasms. BUMETanide 2020- No 2mg Q.5D Take 2 mg [place] (BUMEX) 2 12-31 by mouth 2 Met hodi MG tablet 07:41: 00:00 (two) st 08 :00 times a day. spironolact 2020- No 25mg Q.5D Take 25 mg [place] one 12-3130 by mouth 2 Methodi (ALDACTONE) 07:41: 00:00 (two) st 25 MG 08 :00 times a tablet day. potassium Yes 20meq QD Take 2 [place] chloride -30 capsules Methodi (MICRO-K) 00:00: ([address] 10 MEQ CR 00 total) by capsule mouth daily. BUMETanide 2020- No 2mg Q.5D Take 1 [place] (BUMEX) 2 12-31-29 tablet (2 Meth bruno MG tablet 00:00: 23:59 mg total) st 00 :00 by mouth 2 (two) times a day for 30 days. benzonatate 2020- No 100mg Q.[id number] Take 1 [place] (TESSALON) 12-3129 [id number] capsule Methodi 100 MG 00:00: 23:59 3D ([address] capsule 00 :00 total) by mouth 3 (three) times a day as needed for cough for up to 30 days. methocarbam 2020- No 500mg Q.[id number] Take 1 [place] oL 12-31 [id number] tablet Method i (ROBAXIN) 00:00: 23:59 3D ([address] 500 MG 00 :00 total) by tablet mouth 3 (three) times a day as needed for muscle spasms for up to 30 days. metOLazone No 5mg QD Take 1 [place] (ZAROXOLYN) 12-31 tablet (5 Me thodi [...] [place] sulfate 12-31 capsule Methodi (ZINCATE) 00:00: :59 ([address] 220 mg (50 00 :00 total) by mg mouth elemental daily for zinc) 30 days. capsule spironolact No 25mg Q.5D Take 1 Lori ston one 12-31 tablet (25 Methodi (ALDACTONE) 00:00: 23:59 mg total) st 25 MG 00 :00 by mouth 2 tablet (two) times a day for 30 days. clopidogreL 2019-10- No 75mg QD Take 1 Lori ston (PLAVIX) 75 08-31 tablet (75 M ethodi mg tablet 00:00: 23:59 mg total) st 00 :00 by mouth daily for 30 days. digOXIN 2019-10 No 125ug QD Take 1 [place] (LANOXIN) 08-31 tablet Methodi 125 mcg 00:00: 23:59 ([address] (0.125 mg) 00 :00 total) by tablet mouth daily for 30 days. metOLazone 2019-10- No 5mg QD Take 5 mg [place] (ZAROXOLYN) 0-31 07- by mouth Met hodi 5 MG tablet 12:40: 00:[address] 35 :00 sacubitriL- 2019-10 2020- No 1{tbl} Q.5D Take 1 [place] valsartan 0- 11-27 tablet by Meth bruno (ENTRESTO) 00:00: 23:[address] 24-26 mg 00 :00 (two) tablet per times a tablet day for 30 days. spironolact 2019-10- No 25mg Q.5D Take 1 Lori ston one 0-31 08-27 tablet (25 Methodi (ALDACTONE) 00:00: 23:59 mg total) st 25 MG 00 :00 by mouth 2 tablet (two) times a day for 30 days. cyclobenzap 2019- No 10mg Q.[id number] Take 1 [place] rine 07-02- [id number] tablet (10 Me th[facility] (FLEXERIL) 00:00: 00:00 3D mg total) s t 10 mg 00 :00 by mouth 3 tablet (three) times a day as needed for muscle spasms for up to 30 days. BUMETanide 2019- No 2mg Q.5D Take 1 [place] (BUMEX) 2 07-02 tablet (2 Meth bruno MG tablet 00:00: 00:00 mg total) st 00 :00 by mouth 2 (two) times a day for 30 days. HYDROcodone 2019- No acute pain 1{tbl} Q4H Take 1 [place] -acetaminop 07-02 10-06 tablet by Me thodi hen (NORCO) 00:00: 23:[address] 10-325 mg 00 :00 every 4 per tablet (four) hours as needed for moderate pain or severe pain for up to 7 days .acute pain. Max Daily Amount: 6 tablets tamsulosin 2019- No .4mg QD Take 0.4 [place] (FLOMAX) 06-26 09-23 mg by Methodi 0.4 mg 17:53: 00:[address] capsule 51 :00 daily with dinner. benzonatate 2019-2019- No 100mg Q.5D Take 100 [place] (TESSALON) 06-26 mg by Methodi 100 MG 17:53: 00:[address] capsule 51 :00 (two) times a day as needed for cough. losartan 2019-2019- No 25mg QD Take 25 mg [place] (COZAAR) 25 06-26 by mouth Met hodi MG tablet 17:53: 00:[address] 51 :00 torsemide 2019-2019- No 20mg Q.5D Take 20 mg [place] (DEMADEX) 06-26 by mouth 2 Met hodi 20 MG 12:38: 00:00 (two) st tablet 46 :00 times a day. ascorbic 2019-2019- No 1000mg QD Take 1 [place] acid, 06-05 tablet Methodi vitamin C, 00:00: 23:59 (1,000 mg s t (VITAMIN C) 00 :00 total) by 1000 MG mouth tablet daily for 30 days. cholecalcif 2019- No 1000U QD Take 1 [place] annamaria, 06-05 tablet Methodi vitamin D3, 00:00: 23:59 (1,000 st 1,000 unit 00 :00 Units tablet total) by mouth daily for 30 days. gabapentin 2019-2019- No 300mg Q.5D Take 1 Lori ston (NEURONTIN) 06-05 capsule Meth burno 300 mg 00:00: 23:59 ([address] capsule 00 :00 total) by mouth 2 (two) times a day for 30 days. sacubitriL- 2019- No 1{tbl} Q.5D Take 1 [place] valsartan 06-05 tablet by Meth bruno (ENTRESTO) 00:00: 23:[address] 24-26 mg 00 :00 (two) tablet per times a tablet day for 30 days. spironolact 2019-2019- No 25mg QD Take 1 Lori ston one 06-05 tablet (25 Methodi (ALDACTONE) 00:00: 23:59 mg total) st 25 MG 00 :00 by mouth tablet daily for 30 days. triamcinolo 2019- 2020- No 1.25mg Q.5D Apply 1.25 [place] [...] 30 days. methocarbam 2020-0 2020- No 500mg Q.[id number] Take 1 [place] oL 06-05 [id number] tablet Method i (ROBAXIN) 00:00: 00:00 3D [...] 25mg QD Take 25 mg [place] one 05-09- by mouth Methodi (ALDACTONE) 13:59: 00:[address] 25 MG 53 :00 tablet losartan 2020-0 2020- No 25mg QD Take 25 mg [place] (COZAAR) 25 05-09-06 by mouth Met hodi MG tablet 13:59: 00:[address] 53 :00 BUMETanide 2020-0 2020- No 2mg Q.5D Take 2 mg [place] (BUMEX) 2 05-09 08-06 by mouth 2 Met hodi MG tablet 12:36: 00:00 (two) st 23 :00 times a day. BUMETanide 2020-0 2020- No 2mg QD Take 1 [place] (BUMEX) 2 05-09-05 tablet (2 Meth bruno MG tablet 00:00: [...] No 1{packe Q24H Take 1 [place] icylamide/c 04-24 07-22 t} packet by Me beti trevizo (BC 16:07: 00:[address] HEADACHE 14 :00 daily as POWDER needed ORAL) (headache or backache). benzonatate 2020-0 2020- No 100mg Q.5D Take 100 [place] (TESSALON) 04-24 07-22 mg by Methodi 100 MG 16:04: 00:[address] capsule 03 :00 (two) times a day. metOLazone 2020-0 2020- No 5mg QD Take 1 [place] (ZAROXOLYN) 04-15 tablet (5 Me thodi 5 MG tablet 00:00: 00:00 mg total) st 00 :00 by mouth daily for 30 days. famotidine 2019-0 2020- No 20mg Q.5D Take 1 [place] (PEPCID) 20 04-12 tablet (20 M ethodi MG tablet 00:00: 00:00 mg total) st 00 :00 by mouth 2 (two) times a day for 30 days. doxycycline 2019-0 2020- No 100mg Q.5D Take 1 [place] (VIBRAMYCIN 04-1220 capsule Meth bruno ) 100 MG 00:00: 23:59 ([address] capsule 00 :00 total) by mouth 2 (two) times a day with meals for 10 days. triamcinolo 2019-0 2020- No [id number] Q.5D Apply [place] ne 04-12 30,000 mg Methodi acetonide 00:00: 23:[address] (triamcinol 00 :00 2 (two) one 100 mg times a in day for 7 lubriderm) days. 100 mg lotion methocarbam 2019-0 2020- No 500mg Q.25D Take 500 [place] oL 04-01 06-29 mg by Methodi (ROBAXIN) 12:21: 00:[address] 500 MG 26 :00 (four) tablet times a day. torsemide 2019-0 2020- No 20mg Q.5D Take 20 mg [place] (DEMADEX) 04-01- by mouth 2 Met hodi 20 MG 12:21: 00:00 (two) st tablet 26 :00 times a day. losartan 2019-0 2020- No 25mg QD Take 25 mg [place] (COZAAR) 25 04-01 06-29 by mouth Met hodi MG tablet 12:21: 00:[address] 26 :00 gabapentin 2020-0 2020- No 300mg Q.[id number] Take 1 [place] (NEURONTIN) 04-01 07-29 [id number] capsule Methodi 300 mg 00:00: 23:59 3D ([address] capsule 00 :00 total) by mouth 3 (three) times a day for 30 days. tiZANidine 2019-0 2020- No 4mg Q8H Take 1 [place] (ZANAFLEX) 6-29 07-29 tablet (4 Met hodi 4 MG tablet 00:00: 23:59 mg total) st 00 :00 by mouth every 8 (eight) hours as needed for muscle spasms for up to 30 days. lidocaine 2019- No 1{patch Q24H Place 1 [place] (LIDODERM) 04-01 } patch on Meth bruno 5 % 00:00: 00:[address] 00 :00 daily for 30 days. Remove & Discard patch within 12 hours or as directed by MD steiner 2019- No [id number] Q.5D Apply [place] ne 04-01 30,000 mg Methodi acetonide 00:00: 00:[address] (triamcinol 00 :00 2 (two) one 100 mg times a in day for 7 lubriderm) days. 100 mg lotion benzonatate 2019- No 100mg Q8H Take 1 Derian woods (TESSALON) 4-25 05-25 capsule Metho di 100 MG 00:00: 23:59 ([address] capsule 00 :00 total) by mouth every 8 (eight) hours for 30 days. losartan 2020- No 25mg QD Take 1 [place] (COZAAR) 25 4-25 05-25 tablet (25 M ethodi MG tablet 00:00: 23:59 mg total) st 00 :00 by mouth daily for 30 days. digOXIN 2020- No 125ug QD Take 125 [place] (LANOXIN) 2-03 09-23 mcg by Methodi 125 mcg 00:00: 00:[address] (0.125 mg) 00 :00 daily. tablet Immunizations Ordered Immunization Filled Immunization Date Status Commen ts Source Name Name Tdap 2020-05-06 Completed [place] 00:00:00 Jewish Influenza, 2015-05-22 Completed [place] Unspecified 00:00:00 Jewish Vital Signs Vital Name Observation Time Observation Value Comments Source Systolic blood 2021-01-16 11:04:16 114 mm[Hg] Chento n Jewish pressure Diastolic blood 2021-01-16 11:04:16 74 mm[Hg] [place] Jewish pressure Heart rate 2021-01-16 11:04:16 87 /min [...] SPINE 2 OR 3 VW 2021-01-15 19:56:[address] ANGIOGRAM PE CHEST 2021-01-15 14:20:00 [...] Álvarez THYROID STIMULATING 2021-01-13 03:18:00 Mendoza Álvarez Jewish HORMONE T4, FREE 2021-01-13 03:18:00 Mendoza Álvarez ESTIMATED GFR 2021-01-13 03:18:00 Mendoza Álvarezist TROPONIN 2021-01-12 22:19:00 Mendoza Álvarez COVID-19 QUALITATIVE PCR 2021-01-12 20:50:00 Manav Monahan Jewish XR CHEST 1 VW PORTABLE 2021-01-12 19:56:31 Dominga Calderon on Jewish Johny HC COMPLETE BLD COUNT 2021-01-12 19:38:00 Dominga Calderon W/AUTO DIFF Johny COMPREHENSIVE METABOLIC 2021-01-12 19:38:00 Dominga Calderon Jewish PANEL Johny TROPONIN 2021-01-12 19:38:00 Mendoza Álvarez B NATRIURETIC PEPTIDE 2021-01-12 19:38:00 Dominga Calderon Johny PARTIAL THROMBOPLASTIN 2021-01-12 19:38:00 Dominga Calderon Jewish TIME (PTT) Johny PROTHROMBIN TIME WITH INR 2021-01-12 19:38:00 Dominga Calderon Jewish Johny ESTIMATED GFR 2021-01-12 19:38:00 Dominga Calderon Meth odist Johny ECG 12-LEAD 2021-01-12 19:18:21 Dominga Calderon Meth odist Johny MAGNESIUM LEVEL 2020-12-30 03:41:00 Sussy White Ga thodist BASIC METABOLIC PANEL 2020-12-30 03:41:00 Sussy White Jewish ESTIMATED GFR 2020-12-30 03:41:00 Sussy White Ga thodist BASIC METABOLIC PANEL 2020-12-29 06:15:00 Mendoza Álvarez ESTIMATED GFR 2020-12-29 06:15:00 Mendoza Álvarez MAGNESIUM LEVEL 2020-12-29 04:00:00 Sussy White Me thodist BASIC METABOLIC PANEL 2020-12-29 04:00:00 Cindy Sussy seqeuira Jewish ESTIMATED GFR 2020-12-29 04:00:00 Sussy White Me thodist B NATRIURETIC PEPTIDE 2020-12-28 10:00:00 WhiteSussy kline Jewish MAGNESIUM LEVEL 2020-12-28 08:31:00 Sussy White Me thodist BASIC METABOLIC PANEL 2020-12-28 08:31:00 White, Sussybijan sequeira Jewish ESTIMATED GFR 2020-12-28 08:31:00 Sussy White Me thodist B NATRIURETIC PEPTIDE 2020-12-27 05:10:00 Gabby Shell n Jewish HC COMPLETE BLD COUNT 2020-12-26 05:32:00 Mendoza [...] ECG ED PRELIMINARY 2020-12-23 21:01:48 Dwight Williamson INTERPRETATION TROPONIN 2020-12-23 20:22:00 Mendoza Álvarez XR CHEST 1 VW PORTABLE 2020-12-23 14:31:00 Dwight Williamson COVID-19 QUALITATIVE PCR 2020-12-23 14:14:00 Dwight Williamson HC COMPLETE BLD COUNT 2020-12-23 14:14:00 Dwight Williamson W/AUTO DIFF COMPREHENSIVE METABOLIC 2020-12-23 14:14:00 Dwight Williamson PANEL MAGNESIUM LEVEL 2020-12-23 14:14:00 Dwight Williamson PHOSPHORUS LEVEL 2020-12-23 14:14:00 Dwight Williamson B NATRIURETIC PEPTIDE 2020-12-23 14:14:00 Dwight Williamson TROPONIN 2020-12-23 14:14:00 Dwight Williamson VENOUS BLOOD GAS 2020-12-23 14:14:00 Dwight Williamson ESTIMATED GFR 2020-12-23 14:14:00 Dwight Williamson ECG 12-LEAD 2020-12-23 13:33:16 Dwight Williamson BASIC METABOLIC PANEL 2020-07-31 05:00:00 Denise Yoon on Jewish [place] HC COMPLETE BLD COUNT 2020-07-31 05:00:00 Denise Yoon Jewish W/AUTO DIFF [place] ESTIMATED GFR 2020-07-31 05:00:00 Denise Yoon Met trina Jones MAGNESIUM LEVEL 2020-07-31 05:00:00 Denise Yoon Met hodist Jianle CV RIGHT HEART CATH 2020-07-30 18:32:47 MaliAnn Mariebud [place] Jewish BASIC METABOLIC PANEL 2020-07-30 03:00:00 Denise Yoon on Jewish [place] HC COMPLETE BLD COUNT 2020-07-30 03:00:00 Denise Yoon on Jewish W/AUTO DIFF [place] B NATRIURETIC PEPTIDE 2020-07-30 03:00:00 SaydaleandraHarini n Jewish ESTIMATED GFR 2020-07-30 03:00:00 Harini Samson Meth odist BASIC METABOLIC PANEL 2020-07-29 02:50:00 Denise Yoon on Jewish [place] HC COMPLETE BLD COUNT 2020-07-29 02:50:00 Denise Yoon on Jewish W/AUTO DIFF [place] ESTIMATED GFR 2020-07-29 02:50:00 Denise Yoon Met hodann Jones HC COMPLETE BLD COUNT 2020-07-29 00:45:00 Mendoza Álvarez W/AUTO DIFF BASIC METABOLIC PANEL 2020-07-29 00:00:00 [...] COMPLETE BLD COUNT 2020-07-25 01:57:00 Mendoza Álvarez Jewish W/AUTO DIFF US DUPLEX VENOUS LOWER 2020-07-24 23:48:00 Mendoza Álvarez EXTREMITY BILATERAL HC COMPLETE BLD COUNT 2020-07-24 21:30:00 Natalie Yanez Jewish W/AUTO DIFF PROTHROMBIN TIME WITH INR 2020-07-24 21:30:00 Natalie Yanez PARTIAL THROMBOPLASTIN 2020-07-24 21:30:00 Natalie Yanez Jewish TIME (PTT) COMPREHENSIVE METABOLIC 2020-07-24 21:30:00 Natalie Yanez Jewish PANEL TROPONIN 2020-07-24 21:30:00 Mendoza Álvarez B NATRIURETIC PEPTIDE 2020-07-24 21:30:00 Natalie Yanez ESTIMATED GFR 2020-07-24 21:30:00 George Little Me thodist XR LUMBAR SPINE 2 OR 3 VW 2020-07-24 21:19:57 Natalie Yanez XR CHEST 1 VW PORTABLE 2020-07-24 20:41:00 Natalie Yanez Jewish ECG ED PRELIMINARY 2020-07-24 20:25:35 George Little INTERPRETATION ECG 12-LEAD 2020-07-24 19:58:26 George Little Me thodist HC COMPLETE BLD COUNT 2020-07-20 03:38:00 Fartun Escamilla Jewish W/AUTO DIFF COMPREHENSIVE METABOLIC 2020-07-20 03:38:00 Fartun Escamilla Jewish PANEL ESTIMATED GFR 2020-07-20 03:38:00 Fartun Escamilla Meth odist HEMOGLOBIN A1C 2020-07-19 06:32:00 Zach Graham Jewish HC COMPLETE BLD COUNT 2020-07-19 06:32:00 GladysZach cruz Jewish W/AUTO DIFF ESTIMATED GFR 2020-07-19 06:32:00 Srinivasan Grahamkathleen Gal Jewish MAGNESIUM LEVEL 2020-07-19 06:32:00 Kenia Boyle Meth odist COMPREHENSIVE METABOLIC 2020-07-19 06:32:00 Escamilla Fartun Maryellen Chen sequeira Jewish PANEL BASIC METABOLIC PANEL 2020-07-18 22:30:00 Mone Caballero Chen fabby Jewish MAGNESIUM LEVEL 2020-07-18 22:30:00 Mone Caballero Me thodist ESTIMATED GFR 2020-07-18 22:30:00 Mone Caballero Me thodist TROPONIN, I-STAT 2020-07-18 19:34:00 Escamilla Fartun Maryellen Santo Met hodist TTE LIMITED W CONTRAST, W 2020-07-18 16:55:43 Marianne Aguirre Jewish DOPPLER ([id number]) Heap ECG 12-LEAD 2020-07-18 15:35:35 Charles Carlos Ga thodist COVID-19 QUALITATIVE PCR 2020-07-18 14:01:00 Escamilla Fartun Maryellen Lori eduardo Jewish TROPONIN 2020-07-18 14:01:00 Escamilla, Fartun Maryellen Santo Meth odist POC GLUCOSE 2020-07-18 13:50:00 Escamilla Fartun Maryellen Santo Meth odist XR CHEST 1 VW PORTABLE 2020-07-18 13:04:59 Charles Carlos HC COMPLETE BLD COUNT 2020-07-18 12:00:00 Charles Carlos Jewish W/AUTO DIFF COMPREHENSIVE METABOLIC 2020-07-18 12:00:00 Charles Carlos PANEL TROPONIN 2020-07-18 12:00:00 Charles Carlos Me thodist B NATRIURETIC PEPTIDE 2020-07-18 12:00:00 Charles Carlos PARTIAL THROMBOPLASTIN 2020-07-18 12:00:00 Charles Carlos TIME (PTT) PROTHROMBIN TIME WITH INR 2020-07-18 12:00:00 Charles Carlos ESTIMATED GFR 2020-07-18 12:00:00 Charles Carlos Ga thodist NV CRITICAL CARE, E/M 2020-07-18 11:58:19 Charles Carlos Jewish 30-74 MINUTES ECG ED PRELIMINARY 2020-07-18 11:58:19 Charles Carlos INTERPRETATION ECG 12-LEAD 2020-07-18 11:46:49 Zach Graham HC COMPLETE BLD COUNT 2020-07-02 04:34:00 Betsey Olivo Jewish W/AUTO DIFF BASIC METABOLIC PANEL 2020-07-02 04:34:00 Betsey Olivo Jewish MAGNESIUM LEVEL 2020-07-02 04:34:00 Betsey Olivo ESTIMATED GFR 2020-07-02 04:34:00 Betsey Olivo HC COMPLETE BLD COUNT 2020-07-01 14:27:00 Sandro Lopez Jewish W/AUTO DIFF Mario HC COMPLETE BLD COUNT 2020-07-01 03:50:00 CaroSandro Forman Jewish W/AUTO DIFF Mario COMPREHENSIVE METABOLIC 2020-07-01 03:50:00 CaroSandro Forman Jewish PANEL Mario MAGNESIUM LEVEL 2020-07-01 03:50:00 CaroDicksonSandro ethodist Mario ESTIMATED GFR 2020-07-01 03:50:00 CaroDickson Sandro [facility] ethodist Mario TROPONIN 2020-06-30 11:20:00 Caro-Bailey Sandro [facility] ethodist Mario TROPONIN 2020-06-30 08:30:00 [facility] Mario COVID-19 QUALITATIVE PCR 2020-06-30 06:10:00 Anton Quintero Jewish BASIC METABOLIC PANEL 2020-06-30 04:56:00 Anton Quintero Jewish TROPONIN 2020-06-30 04:56:00 CaroDicksonSandro [facility] ethodist Mario B NATRIURETIC PEPTIDE 2020-06-30 04:56:00 Anton Quintero Jewish HC COMPLETE BLD COUNT 2020-06-30 04:56:00 Anton Quintero Jewish W/AUTO DIFF ESTIMATED GFR 2020-06-30 04:56:00 Anton Quintero Meth odist XR CHEST 1 VW 2020-06-30 04:51:15 Leon Antonjaleel Santo Meth odist ECG 12-LEAD 2020-06-30 04:42:00 CaroVivekSandro prado M ethodist Mario BASIC METABOLIC PANEL 2020-06-26 03:05:00 Harry Carrillo [facility] COMPLETE BLD COUNT 2020-06-26 03:05:00 Betsey Olivo Jewish W/AUTO DIFF MAGNESIUM LEVEL 2020-06-26 03:05:00 Betsey Olivo Jewish ESTIMATED GFR 2020-06-26 03:05:00 Betsey Olivo Jewish BASIC METABOLIC PANEL 2020-06-25 04:29:00 Harry Carrillo Jewish THYROID STIMULATING 2020-06-25 04:29:00 Harry Carrillo Jewish HORMONE T4, FREE 2020-06-25 04:29:00 Harry Carrillo on Jewish T3 2020-06-25 04:29:00 Harry Carrillo on Jewish ESTIMATED GFR 2020-06-25 04:29:00 Harry Carrillo on Jewish BASIC METABOLIC PANEL 2020-06-24 10:15:00 Harry Carrillo [facility] MAGNESIUM LEVEL 2020-06-24 10:15:00 Harry Carrillo on Jewish PHOSPHORUS LEVEL 2020-06-24 10:15:00 Harry Carrillo Jewish ESTIMATED GFR 2020-06-24 10:15:00 Harry Carrillo on Jewish TROPONIN 2020-06-24 00:45:00 Jayashree San Meth odist TROPONIN 2020-06-23 21:49:00 MenaJayashree Meth odist COVID-19 QUALITATIVE PCR 2020-06-23 19:48:00 Theron Otero URINALYSIS SCREEN AND 2020-06-23 19:19:00 Theron Otero on Jewish MICROSCOPY, WITH REFLEX TO CULTURE HC COMPLETE BLD COUNT 2020-06-23 19:19:00 Waldo Rawls W/AUTO DIFF B NATRIURETIC PEPTIDE 2020-06-23 19:19:00 Waldo Rawls XR CHEST 1 VW PORTABLE 2020-06-23 18:54:50 Theron Otero Jewish COMPREHENSIVE METABOLIC 2020-06-23 18:46:00 Theron Oteroist PANEL TROPONIN 2020-06-23 18:46:00 MenaJayashree Meth odist ESTIMATED GFR 2020-06-23 18:46:00 Theron Otero Met hodist ECG ED PRELIMINARY 2020-06-23 18:34:13 Waldo Rawls on Jewish INTERPRETATION ECG 12-LEAD 2020-06-23 18:31:33 MenaJayashree Gal Meth odist BASIC METABOLIC PANEL 2020-06-05 04:32:00 Gabby Shell Jewish ESTIMATED GFR 2020-06-05 04:32:00 Gabby Shell Meth odist BASIC METABOLIC PANEL 2020-06-03 04:30:00 Gabby Shellto n Jewish ESTIMATED GFR 2020-06-03 04:30:00 AttGabby montenegro Meth odist BASIC METABOLIC PANEL 2020-06-02 04:23:00 Gabby Shellto n Jewish ESTIMATED GFR 2020-06-02 04:23:00 Carlos Shelled Gal Meth odist BASIC METABOLIC PANEL 2020-06-01 04:28:00 Elissa Johansen B NATRIURETIC PEPTIDE 2020-06-01 04:28:00 Gabby Shell Jewish ESTIMATED GFR 2020-06-01 04:28:00 Gabby Shell Meth [...] (PTT) COMPREHENSIVE METABOLIC 2020-05-27 22:25:00 Dwight Williamson Jewish PANEL PHOSPHORUS LEVEL 2020-05-27 22:25:00 Dwight Williamson Jewish MAGNESIUM LEVEL 2020-05-27 22:25:00 Dwight Williamson TROPONIN 2020-05-27 22:25:00 Mendoza Álvarez B NATRIURETIC PEPTIDE 2020-05-27 22:25:00 Dwight Williamson VENOUS BLOOD GAS 2020-05-27 22:25:00 Dwight Williamson ESTIMATED GFR 2020-05-27 22:25:00 Dwight Williamson XR CHEST 1 VW PORTABLE 2020-05-27 22:20:52 Dwight Williamson ECG ED PRELIMINARY 2020-05-27 22:06:10 Dwight Williamson Jewish INTERPRETATION ECG 12-LEAD 2020-05-27 22:02:07 Dwight Williamson BASIC METABOLIC PANEL 2020-05-09 05:00:00 Chen Redd Jewish Iadara Tran HC COMPLETE BLD COUNT 2020-05-09 05:00:00 Chen Redd Jewish W/AUTO DIFF Iadara Tran ESTIMATED GFR 2020-05-09 05:00:00 Gal Redd Ga thodist Iadara Tran US ANKLE BRACHIAL INDEX 2020-05-08 17:32:00 Nicolás Conteh Jewish ECG 12-LEAD 2020-05-08 12:42:59 Lee Ann León Ga thodist Lisandro BASIC METABOLIC PANEL 2020-05-08 04:20:00 Chen Redd Iadara Tran HC COMPLETE BLD COUNT 2020-05-08 04:20:00 hCen Redd W/AUTO DIFF Iadara Tran MAGNESIUM LEVEL 2020-05-08 04:20:00 Lee Ann León Ga thodist Lisandro ESTIMATED GFR 2020-05-08 04:20:00 Gal Redd Ga thodist Iadara Tran BASIC METABOLIC PANEL 2020-05-07 13:30:00 Janet Delacruz Tracy ESTIMATED GFR 2020-05-07 13:30:00 Janet Delacruz Ga thodist Tracy CONSULT TO OSTOMY CARE 2020-05-07 13:06:19 Lee Ann León NURSE Lisandro US DUPLEX VENOUS LOWER 2020-05-07 10:30:00 Janet Delacruz EXTREMITY RIGHT Tracy TTE LIMITED W CONTRAST, W 2020-05-07 09:04:00 Janet Delacruz DOPPLER ([id number]) Tracy POC GLUCOSE 2020-05-07 07:43:00 Lee Ann León Ga lexie Mcmahon BASIC METABOLIC PANEL 2020-05-07 03:49:00 Chen Redd Iadara Tran HC COMPLETE BLD COUNT 2020-05-07 03:49:00 Chen Redd W/AUTO DIFF Bernieara Tran PHOSPHORUS LEVEL 2020-05-07 03:49:00 Tim Donnelly [...] ANAEROBIC Tracy LACTIC ACID LEVEL 2020-05-06 23:10:00 Janet Delacruz Tracy PROTHROMBIN TIME WITH INR 2020-05-06 23:10:00 Janet Delacruzist Tracy D-DIMER 2020-05-06 23:10:00 JoséJanet blair Me thodist Tracy POC GLUCOSE 2020-05-06 20:07:00 Lee Ann León Me thodist Lisandro US RENAL 2020-05-06 19:26:42 Tim Donnellyto brianda Jewish COVID-19 QUALITATIVE PCR 2020-05-06 18:32:00 DeysivenancioJanet Tracy URIC ACID LEVEL 2020-05-06 18:32:00 Tim Donnellyto brianda Jewish LACTIC ACID LEVEL 2020-05-06 18:32:00 Deysivenancio Janet Huff Tracy PROCALCITONIN 2020-05-06 18:32:00 DeysiJanet craft Me thodist Tracy CREATINE KINASE, TOTAL 2020-05-06 16:47:00 Mena Rose Jewish (CPK) Mikayla Prater TROPONIN 2020-05-06 16:47:00 Kishore Elias Me thodist BASIC METABOLIC PANEL 2020-05-06 16:47:00 Mena Rose on Daria Prater PROTHROMBIN TIME WITH INR 2020-05-06 16:47:00 Mena Rose PARTIAL THROMBOPLASTIN 2020-05-06 16:47:00 Mena Rose Jewish TIME (PTT) Mikayla Prater ESTIMATED GFR 2020-05-06 16:47:00 Mena Rose Met trina Prater CT HEAD WO CONTRAST 2020-05-06 16:43:[address] LUMBAR SPINE WO 2020-05-06 16:38:51 Mena Rose CONTRAST Mikayla Prater CT CERVICAL SPINE WO 2020-05-06 16:38:31 Mena Rose Jewish CONTRAST Mikayla Prater CT MAXILLOFACIAL WO 2020-05-06 16:38:11 Mena Rose CONTRAST Mikayla Prater HC COMPLETE BLD COUNT 2020-05-06 15:13:00 Kishore Elias Jewish W/AUTO DIFF COMPREHENSIVE METABOLIC 2020-05-06 15:13:00 Kishore Elias Jewish PANEL B NATRIURETIC PEPTIDE 2020-05-06 15:13:00 Kishore Elias Jewish ESTIMATED GFR 2020-05-06 15:13:00 Kishore Elias Ga thodist TROPONIN, I-STAT 2020-05-06 15:13:00 Kishore Elias ethodist XR CHEST 1 VW PORTABLE 2020-05-06 15:07:09 Kishore Elias ston Jewish ECG 12-LEAD 2020-05-06 14:55:25 Kishore Elias Ga thodist COVID-19 QUALITATIVE PCR 2020-04-28 10:24:00 Fabiola Elliott Jewish HEMOGLOBIN A1C 2020-04-28 03:19:00 Harry Carrillo on Jewish CBC HEMOGRAM 2020-04-28 03:19:00 Harry Carrillo on Jewish COMPREHENSIVE METABOLIC 2020-04-28 03:19:00 Harry Carrillo Jewish PANEL MAGNESIUM LEVEL 2020-04-28 03:19:00 Harry Carrillo on Jewish PHOSPHORUS LEVEL 2020-04-28 03:19:00 Harry Carrillo Jewish ESTIMATED GFR 2020-04-28 03:19:00 Harry Carrillo on Jewish CBC WITH PLATELET AND 2020-04-27 03:19:00 Lee Ann León Jewish DIFFERENTIAL Lisandro BASIC METABOLIC PANEL 2020-04-27 03:19:00 Lee Ann León Jewish Lisandro MAGNESIUM LEVEL 2020-04-27 03:19:00 Lee Ann León Ga thodist Lisandro PHOSPHORUS LEVEL 2020-04-27 03:19:00 Lee Ann León ethodist Lisandro C-REACTIVE PROTEIN 2020-04-27 03:19:00 Yoanna Schroeder Jewish D-DIMER 2020-04-27 03:19:00 Yoanna Schroeder ethodist LDH 2020-04-27 03:19:00 Yoanna Schroeder ethodist LACTIC ACID LEVEL 2020-04-27 03:19:00 Yoanna Schroeder Jewish INTERLEUKIN 6 2020-04-27 03:19:00 Yoanna Schroeder ethodist FERRITIN LEVEL 2020-04-27 03:19:00 Yoanna Schroeder ethodist ESTIMATED GFR 2020-04-27 03:19:00 Jordin Leónrioly Santo Ga thodist Lisandro XR CHEST 1 VW PORTABLE 2020-04-26 07:39:14 Irene Caro on Jewish HC COMPLETE BLD COUNT 2020-04-26 03:22:00 Lee Ann León Jewish W/AUTO DIFF Lisandro BASIC METABOLIC PANEL 2020-04-26 03:22:00 Lee Ann León Jewish Lisandro MAGNESIUM LEVEL 2020-04-26 03:22:00 Lee Ann León Ga thodist Lisandro PHOSPHORUS LEVEL 2020-04-26 03:22:00 Lee Ann León Javon ethodist Lisandro ESTIMATED GFR 2020-04-26 03:22:00 Lee Ann León Me thodist Lisandro STREPTOCOCCUS PNEUMONIAE 2020-04-25 05:35:00 Lee Ann León Jewish URINARY ANTIGEN Lisandro LEGIONELLA URINARY 2020-04-25 05:35:00 Lee Ann León Jewish ANTIGEN Lisandro PROCALCITONIN 2020-04-25 05:35:00 Lee Ann León Me thodist Lisandro HC COMPLETE BLD COUNT 2020-04-25 05:35:00 Lee Ann León Jewish W/AUTO DIFF Lisandro BASIC METABOLIC PANEL 2020-04-25 05:35:00 Lee Ann León Jewish Lisandro MAGNESIUM LEVEL 2020-04-25 05:35:00 Lee Ann León Me thodist Lisandro PHOSPHORUS LEVEL 2020-04-25 05:35:00 Lee Ann León Javon ethodist Lisandro ESTIMATED GFR 2020-04-25 05:35:00 Lee Ann León Me thodist Lisandro CONSULT TO OSTOMY CARE 2020-04-25 03:55:48 Harry Carrillo NURSE RESPIRATORY PATHOGEN 2020-04-24 13:19:00 Lee Ann León on Jewish PANEL WITH COVID-19 Lisandro INFLUENZA ANTIGEN 2020-04-24 [...] A COMPREHENSIVE METABOLIC 2020-04-24 06:20:00 Carlene Eduardo Jewish PANEL Gunn TROPONIN 2020-04-24 06:20:00 Carlene Eduardo B [...] Tucker TIME (PTT) TROPONIN 2020-04-15 11:24:00 Annette Tucker ethodist B NATRIURETIC PEPTIDE 2020-04-15 11:24:00 Annette Tucker ESTIMATED GFR 2020-04-15 11:24:00 Annette Tucker ethodist NV CRITICAL CARE, E/M 2020-04-15 11:06:44 Annette Tucker [...] Mendoza Álvarez BASIC METABOLIC PANEL 2020-04-08 04:00:00 Mendoza Álvarez ESTIMATED GFR 2020-04-08 04:00:00 Mendoza Álvarez [...] BASIC METABOLIC PANEL 2020-04-01 02:00:00 Jimbo Swenson Jewish ESTIMATED GFR 2020-04-01 02:00:00 Jimbo Swenson Meth odist POTASSIUM LEVEL 2020-03-31 12:00:00 Felecia Washburn on Jewish BASIC METABOLIC PANEL 2020-03-31 03:11:00 Gabby Shell ESTIMATED GFR 2020-03-31 03:11:00 Gabby Shell Meth odist MAGNESIUM LEVEL 2020-03-31 03:11:00 Gabby Shell Meth odist HC COMPLETE BLD COUNT 2020-03-31 02:48:00 Jimbo Swenson W/AUTO DIFF XR CHEST 1 VW PORTABLE 2020-03-30 08:35:00 Gabby Shell on Jewish HC COMPLETE BLD COUNT 2020-03-30 05:00:00 Jimbo Swenson W/AUTO DIFF BASIC METABOLIC PANEL 2020-03-30 04:00:00 Gabby Shell Jewish MAGNESIUM LEVEL 2020-03-30 04:00:00 ElenoElissa francoedita Huff ESTIMATED GFR 2020-03-30 04:00:00 Gabby Shell odann BASIC METABOLIC PANEL 2020 03:00:00 Gabby Shell Jewish ESTIMATED GFR 2020 03:00:00 Gabby Shell odist B NATRIURETIC PEPTIDE 2020 02:05:00 Gabby Shell Jewish BASIC METABOLIC PANEL 2020-03-28 02:34:00 Gabby Shell Jewish ESTIMATED GFR 2020-03-28 02:34:00 Gabby Shell Meth odist B NATRIURETIC PEPTIDE 2020-03-28 01:40:00 Gabby Shell Jewish BASIC METABOLIC PANEL 2020-03-27 02:49:00 Gabby Shell Jewish MAGNESIUM LEVEL 2020-03-27 02:49:00 Eleno Elissasuze Huff PHOSPHORUS LEVEL 2020-03-27 02:49:00 ElenoElissa Eddie lamar Jewish ESTIMATED GFR 2020-03-27 02:49:00 Gabby Shell Meth odist B NATRIURETIC PEPTIDE 2020-03-27 01:45:00 Gabby Shell Jewish BASIC METABOLIC PANEL 2020-03-26 03:48:00 Gabby Shell ESTIMATED GFR 2020-03-26 03:48:00 Gabby Shell odist B NATRIURETIC PEPTIDE 2020-03-26 02:20:00 Gabby Shell Jewish BASIC METABOLIC PANEL 2020-03-25 02:56:00 Mendoza Álvarez ESTIMATED GFR 2020-03-25 02:56:00 Mendoza Álvarez HC COMPLETE BLD COUNT 2020-03-25 01:45:00 Mendoza Álvarez W/AUTO DIFF HC COMPLETE BLD COUNT 2020-03-24 05:20:00 Mendoza Álvarez W/AUTO DIFF BASIC METABOLIC PANEL 2020-03-24 05:20:00 Mendoza Álvarez MAGNESIUM LEVEL 2020-03-24 05:20:00 Fran Hilliard Santo Met eboniist Kvng PHOSPHORUS LEVEL 2020-03-24 05:20:00 Fran Hilliard Me thodist Villarmia ESTIMATED GFR 2020-03-24 05:20:00 Mendoza Álvarezist ECG 12-LEAD 2020-03-23 22:58:51 Fran Hilliard Met eboniist Villharshaia BASIC METABOLIC PANEL 2020-03-23 02:52:00 Mendoza Álvarez [...] Future Scheduled 2021-05-04 INFLUENZA VACCINE Willis lamar Jewish Test 00:00:00 [code = INFLUENZA VACCINE] Future Scheduled 1989 Hepatitis C Gal Met hodist Test 00:00:00 screening (procedure) [code = 382019343] Future Scheduled 1983 COVID-19 VACCINE (1) Lori eduardo Jewish Test 00:00:00 [code = COVID-19 VACCINE (1)] Encounters Start End Encounter Admission Attending Care Care Encounter Source Date/Time Date/Time Type Type Clinicians Facility Department ID 2021-01-12 2021-01-16 Inpatient HENRI, [facility] [id number] [place] 00:00:00 00:00:00 MENDOZA [address] 2020-12-23 2020-12-31 Inpatient HENRI, [facility] 064 [id number] [place] 00:00:00 00:00:00 MENDOZA [address] 2020-07-24 2020-07-31 Inpatient HENRI, [facility] 064 [id number] [place] 00:00:00 00:00:00 MENDOZA [address] 2020-07-18 2020-07-20 Inpatient METHUKU, [facility] [id number] [place] 00:00:00 00:00:00 KENIA [address] 2020-06-30 2020-07-02 Inpatient AWOBOKUN, [facility] 064 [id number] [place] 00:00:00 00:00:00 OLUYEMISI 843 Meth bruno 2020-06-23 2020-06-26 Inpatient OVASAPIANS, [facility] [id number] [place] 00:00:00 00:00:00 KRISTALRD 997 Metho di 2020-05-27 2020-06-05 Inpatient HENRI, [facility] 064 [id number] [place] 00:00:00 00:00:00 MENDOZA [address] 2020-05-06 2020-05-09 Inpatient NAKUL, [facility] 012 [id number] [place] 00:00:00 00:00:00 LEE ANN 980 Met hodi 2020-04-24 2020-04-29 Inpatient AWOBOKUN, [facility] [id number] [id number] [place] 00:00:00 00:00:00 OLUYEMISI [address] 2020-04-15 2020-04-15 Emergency TUCKER, [facility] [id number] [place] 00:00:00 00:00:00 ANNETTE [address] 2020-04-04 2020-04-12 Inpatient HENRI, [facility] 060 [id number] [place] 00:00:00 00:00:00 MENDOZA [address] 2020-03-22 2020-04-01 Inpatient SAMANI, [facility] 064 [id number] [place] 00:00:00 00:00:00 JIMBO [address] 2020-01-24 2020-01-27 Inpatient HENRI, [facility] 064 [id number] [place] 00:00:00 00:00:00 MENDOZA [address] 2019-12-20 2019-12-26 Inpatient HENRI, [facility] 064 [id number] [place] 00:00:00 00:00:00 MENDOZA [address] 2019-11-27 2019-11-27 Outpatient ATTAR, [facility] [id number] [place] 00:00:00 00:00:00 MOHAMMED [address] 2019-11-27 2019-11-27 Outpatient ATTAR, [facility] [id number] [place] 00:00:00 00:00:00 MOHAMMED [address] 2019-11-12 2019-11-21 Inpatient HENRI, [facility] 012 [id number] [place] 00:00:00 00:00:00 MENDOZA [address] 2019-10-28 2019-11-03 Inpatient HENRI, [facility] 012 [id number] [place] 00:00:00 00:00:00 MENDOZA [address] 2019-10-12 2019-10-27 Inpatient HENRI, [facility] 060 [id number] [place] 00:00:00 00:00:00 MENDOZA [address] 2019-08-31 2019-09-03 Inpatient ÓSCAR, [facility] [id number] [place] 00:00:00 00:00:00 JOSE A [address] 2019-05-15 2019-05-15 Telephone [facility] [id number] 00:00:00 00:00:00 [facility] [id number] [facility] [id number] Results Test Description Test Time Test Results Result Source Comments Comments Transthoracic 2021-01-02 Interface, Radiology [facility] Echocardiogram 5 Results In - Methodis t Complete, (w 13:58:00 01/16/2021 1:59 PM Contrast, Strain CDTFormatting of and 3D if needed) this note might be different from the original. Echocardiography Report [address] [address] Pat.Name: DANA CLAUDIO Pat.ID: [id number] .Date: 01/16/2021 Refer.MD: MENDOZA ÁLVAREZ MD Exam Time: 7:23:00 AM Study Type:Routine Echo Height: 75in Weight: 365.36lb BSA: 2.84 m2 Age: 6 1970,50Y Sex: MALE BP: 113/76 HR: 85 bpm Sonogrphr: CYDNEY [place] Pat. Stat.:Inpatient Room: [facility] Study Status:Final Echo Event ID:[id number] Order ID: [id number] Reason for Study:HF; initial eval with symptomsHistory [...] estimate PA systolic pressure. -----MEASUREMENTS:-- 2DParasternal Long [place] Ao An 3 cm LVPWd 1 cm [...] abdominal aorta.[id number] CT Angiogram Pe 2021-01-02 Interface, Chento n Chest [address] 14:44:05 Incoming - 01/15/2021 2:47 PM CDT [...] This should be correlated clinically.3.No acute pulmonary consolidation.[facility]-2U [id number] ECG 12 lead 2021-01-13 11:35:39 Test Item [...] ventricular and fusion complexes-Biventricular pacemaker detected-Abnormal ECG- [place] [facility] Chest 1 Vw [id number] 20:54:33Hm Interface, Radiology Results Incoming - 01/12/2021 [...] a left-sided AICD. Cardiomegaly.The bones are unremarkable. [id number] Preliminary Interpretation - Not an [id number] 21:01:48 Test Item Value Reference Range Interpretation Comments SCOTT (test code = SCOTT) Dwight Williamson MD 12/25/2020 4:43 [facility] ED Preliminary Interpretation - Not an OrderPerformed by: Dwight Williamson MDAuthorized by: Dwight Williamson MD ECG reviewed by ED Physician in the absence of a evaluation analyst: yes Interpretation: Interpretation: abnormal Rate: ECG rate: 102 ECG rate assessment: tachycardic Rhythm: Rhythm: paced QRS: QRS axis: Right QRS intervals: WideConduction: Conduction: normal ST segments: ST segments: NormalT waves: T waves: normal Lab Interpretation Abnormal (test code = 12734-5) [place] [facility] [id number] 07:40:44 Moderately elevated right and left sided filling pressures. Mild postcapillary pulmonary hyperte nsion. Cardiac output is decreased by Suzan. CardioMEMS device deployed via RIJ approach and calibrated at bedside. HEMODYNAMIC DATA:1. Right atrial pressure is 12 mmHg.2. Right Ventricular Bnzwaikz90/11/12 mmHg.3. PA Pressure 40/24, mean 29 mmHg. [...] Vascular Ultrasound Laboratory Lower Extremity Venous Report [id number] [place] [address] Pat.Name: DANA CLAUDIO Pat.ID: [id number] .Date: 07/24/2020 Refer.MD: PHYSICIAN, EMERGENCY, MDExam Time: 11:30:00 PM Study Type:LE Venous Height: 75in Weight: 360lb BSA: 2.82 m2 Age: 6 1970,50Y Sex:MALE Sonogrphr: ZEKE Mcmanus, RDCS, RVTPat. Stat.:Inpatient Room: ED- Tape Vol: KG, CPT - 4: 35344 Echo Event ID:[id number] Order ID: [id number] Reason for Study:Bilateral leg sw elling and [...] NGS: Signed 07/25/2020 07:24 Hamilton Zuluaga MD, [facility] [place] MethodistTransthoracic Echocardiogram Limited or Follow Up (w Contrast if needed)2020-07-19 13:57:37 Test Item Value Reference Range Interpretation Comments BSA Marlow (test code = 3.00 m2 9722849814) IVS,d (test code = 1.55 cm 9062681327) IVS/LVPW,2D (test code 0.98 = 9910199569) Left Atrium Dimension 5.37 cm Anterior (test code = 4602358503) LV,d (test code = 6.43 cm 2028789696) LV EF,2D (test code = 14.14 % 1902783887) LV,s (test code = 6.11 cm 4019816080) LVPWD,d (test code = 1.59 cm 7720526561) RVSP (TR) (test code = 23.48 mmHg 8929236691) TR Vpeak (test code = 1.84 mm/s 6036533859) RA pressure (test code 10.00 mmHg = 1818802724) TR pk grad (test code 13.48 mmHg = 8306071431) BMI (test code = 44.92 kg/m2 5420878428) RVSP (test code = 23.48 mmHg 3459369856) LV SYS VOL (test code 187.56 ml = 5496705073) LV GONZALEZ VOL (test code 210.56 ml = 7594097260) LV SI Teich 2D (test 8.17 ml/m2 code = 8802019140) LV SV Teich 2D (test 23.00 ml code = 8351994582) LV Vol s Teich PSAX 187.56 ml (test code = 7137306897) BSA Haycock (test code 3.01 m2 = 0209732739) IVS s 2D (test code = 1.50 7293639555) LV FS Teich 2D (test 4.95 code = 2072668572) LV FS Cube 2D (test 4.95 code = 4068564992) Pt Size (test code = 190.50 6044560124) Pt Wt (test code = 163.00 5000949386) MAX Pred HR (test code 170.69 = 5452306400) 85 of MPHR (test code 145.09 = 3645482821) Calc MPHR (test code = 170.69 bpm 7138329108) IVS pct thck PLAX -3.38 % (test code = 3898291685) LV SI Cube 2D (test 13.34 ml/m2 code = 5689996495) LV SV Cube 2D (test 37.54 ml code = 2654123219) LV vol d cube 2D (test 265.53 ml code = 5445693476) LV vol s cube 2D (test 227.99 ml code = 5480153870) LVPW pct thck PLAX -6.36 % (test code = 6565644591) LVPW s PLAX (test code 1.49 cm = 6799498711) Pred Exer Dur R1 (test 10.35 code = 7555629593) Pred METS R1 (test 10.60 code = 7256103773) EF (test code = 10.92 % 4523657641) Ascending aorta (test 3.29 cm code = 2069900408) Ao Root Diameter (test 3.8 cm code = 3591748123) SCOTT (test code = SCOTT) The left ventricle chamber size is severely enlarged. Left ventricular systolic function is severely impaired. There is moderate left ventricular concentric hypertrophy. Left Ventricular ejection fraction is <20%. Global right ventricle systolic function is severely reduced. Left atrium size is severely dilated. Unable to assess diastolic filling. [facility] [id number] 11:58:19Charles Carlos DO 07/19/2020 7:40 AMCritical CarePerformed [...] of patient's condition and review of old chartsP[place] JewishXR Chest 1 [id number] 04:53:14Hm Interface, Radiology Results 06/30/2020 4:56 AM [...] in pulmonary vascular congestion and right pleural effusion.[id number] JewishUs ankle brachial [id number] 17:54:49Hm Interface, Radiology Results 05/08/2020 5:57 PM [...] >0.6Mild: 0.34 - 0.59Moderate: 0.12 - 0.34Severe: <0.12[facility] Echocardiogram Limited or Follow Up (w Contrast if needed)2020-05-07 11:23:27 Test Item Value Reference Range Interpretation Comments BSA Marlow (test code = 2.60 m2 1720525752) BSA (test code = 2.57 m2 7938966057) IVS,d (test code = 1.58 cm 7070487040) IVS/LVPW,2D (test code 0.93 = 9086817306) Left Atrium Dimension 5.64 cm Anterior (test code = 4863538841) LV,d (test code = 8.45 cm 1864657002) LV EF,2D (test code = 32.22 % 7570088666) LV EF,A2C (test code = 20.86 % 7758743660) LV EF,A4C (test code = 27.74 % 9111977244) LV EF,BP (test code = 24.44 % 9925129217) Fernie [place],d A2C (test 10.64 cm code = 2743581771) Fernie [place],d A4C (test 10.40 cm code = 3086090768) Fernie [place],s A2C (test 10.03 cm code = 3658952749) Fernie [place],s A4C (test 10.11 cm code = 1799117397) LV,s (test code = 7.42 cm 3725133026) LV SV,A2C (test code = 55.69 % 6435805321) LV SV,A4C (test code = 82.04 % 3039130278) LV SV,BP (test code = 68.93 % 1327001962) LV Vol,d A2C (test code 266.93 mL = 3251143659) LV Vol,d A4C (test code 295.71 ml = 6799787120) LV Vol,d BP (test code 282.01 ml = 5654577845) LV Vol,s A2C (test code 211.24 mL = 8133281551) LV Vol,s A4C (test code 213.67 ml = 2540038899) LV Vol,s BP (test code 213.08 nl = 3173683800) LVPWD,d (test code = 1.70 cm 1336298217) RVSP (TR) (test code = 30.20 mmHg 1727202839) TR Vpeak (test code = 2.41 mm/s 7212720791) MV E A ratio (test code 1.18 = 8916796499) RA pressure (test code 10.00 mmHg = 9308012184) TR pk grad (test code = 20.20 mmHg 0307030925) LV SI MOD BP BSA Hansen 27.41 ml/m2 (test code = 2149401030) LV Vol Index s bpmod 112.15 ml/m2 BSA Hansen (test code = 7708775694) PV Vmn (test code = 84.73 m/s 4518097811) BMI (test code = 34.44 kg/m2 5208106992) E wave decelartion time 140.48 msec (test code = 9276818205) MV Peak A Cholo (test 0.66 m/s code = 0773012110) MV valve area p 1/2 5.40 cm2 method (test code = 3752455421) MV Peak E Cholo (test 0.78 m/s code = 4765542658) MV stenosis pressure 40.74 ms 1/2 time (test code = 4112865776) RVSP (test code = 30.20 mmHg 9321641300) MV mean gradient (test 1.18 mmHg code = 5405864065) LV SYS VOL (test code = 291.08 ml 8775945972) LV GONZALEZ VOL (test code 388.80 ml = 4877099542) LV SI Teich 2D (test 38.86 ml/m2 code = 3926887869) LV SV Teich 2D (test 97.72 ml code = 6501824360) LV Vol s Teich PSAX 291.08 ml (test code = 2288510509) MR peak grad (test code 2.78 mmHg = 4711548462) MV Vmax (test code = 0.83 m 7270842364) MV VTI Tips (test code 0.19 m = 1616728610) BSA Haycock (test code 2.61 m2 = 7439271831) IVS s 2D (test code = 1.77 3806151233) LV FS Teich 2D (test 12.16 code = 8586049988) MV AE ratio (test code 0.85 = 0022284377) LV FS Cube 2D (test 12.16 code = 7489564700) Pt Size (test code = 190.50 9401652364) Pt Wt (test code = 125.00 3451730038) MAX Pred HR (test code 170.89 = 3556842713) 85 of MPHR (test code = 145.26 8807293907) Calc MPHR (test code = 170.89 bpm 3941532180) IVS pct thck PLAX (test 11.72 % code = 4313236426) LV SI Cube 2D (test 77.19 ml/m2 code = 7420811761) LV SV Cube 2D (test 194.11 ml code = 4960993629) LV vol d cube 2D (test 602.39 ml code = 4662611102) LV vol s cube 2D (test 408.28 ml code = 7166246394) LVPW pct thck PLAX 4.68 % (test code = 3773410525) LVPW s PLAX (test code 1.78 cm = 7945801903) MV Decel slope (test 5.54 m/s2 code = 7846762293) Pred Exer Dur R1 (test 10.38 code = 6439985470) Pred METS R1 (test code 10.63 = 2575368891) EF (test code = 25.13 % 8290648101) E/A ratio (test code = 1.18 7753783373) LV Systolic Volume 82.19 mL/m2 Index (test code = 9180554465) LV Diastolic Volume 103.86 mL/m2 Index (test code = 0656238379) SCOTT (test code = SCOTT) The left ventricle chamber size is severely enlarged. Left ventricular systolic function is severely impaired. Left Ventricular ejection fraction is 20 - 25%. [facility] [id number] 19:43:15Hm Interface, Radiology Results 05/06/2020 7:46 PM [...] renal mass.[id number] [facility] Lum[facility] Spine Wo [id number] 16:52:57Hm Interface, Radiology Results 05/06/2020 4:55 PM [...] at L4-L5 and L5-S1 levels as detailed above.[id number] MethodistCT Maxillofacial Wo [id number] 16:49:02Hm Interface, Radiology Results 05/06/2020 4:52 PM [...] remaining paranasal sinuses are clear.IMPRESSION:No acute facial fracture.[id number] [place] [facility]CT Head Wo [id number] 16:46:13Hm Interface, Radiology Results 05/06/2020 4:49 PM [...] be intact.IMPRESSION:Mild involutional changes without focal acute abnormalities.[facility]-[id number] MethodistCT Cervical Spine Wo Contrast 2020-05-06 16:41:21Hm [...] C6-C7 levels. IMPRESSION:No acute cervical spine bony abnormality.[id number] [facility] Abdomen Pelvis W Contrast 2020-04-24 08:05:07Hm [...] Degenerative disc disease in the lower lumbar spine.[id number] MethodistUrine culture 2020-04-15 11:16:11 Test Item Value Reference Range Interpretation Comments Urine culture (test SEE COMMENT Bacteriu francisco javier screen code = [id number]) negative. [place] MethodistCRITICAL [id number] 11:06:44Annette Tucker DO 04/15/2020 5:02 PMCritical CarePerformed [...] care for this patient from another provider.: [facility] Chest W Contrast Abdomen W Contrast Pelvis W [id number] 15:56:54Hm Interface, Radiology Results 04/04/2020 4:00 PM [...] lymph nodes, nonspecific, possibly reactive, similar to prior.[facility]-[id number] MethodistXR Chest 2 [id number] 18:33:05Hm Interface, Radiology Results - 03/22/2020 6:36 PM CDT EXAMINATION: XR CHEST 2 VWCLINICAL HISTORY: Shortness of breathCOMPARISON: 01/24/2020 IMPRESSION:Left subclavian pacer device remains in place. Stable enlargement of the cardiomediastinal silhouette. Mild vascular congestion is increased from prior study. Small bilateral pleural effusions and mild basilar volume loss appears similar to prior exam. There is no pneumothorax. Visualized osseous structures are intact. [facility]
[2021-02-25] MEDS ORDERED: FUROSEMIDE 40 MG/4 ML VIAL ONE ×2 (22:28→23:15)
[2021-02-25 22:37] LABS: Basophils % 0.5 % (0-1.3); Hematocrit 36.3 % (39.6-49.0); Lymphocytes % 19.4 % (15.3-44.8); MPV 7.6 fL (7.6-11.3); Protime INR 1.35; RBC Red Blood Cell Count 4.02 M/uL (4.33-5.43)
[2021-02-25 22:51] LABS: Albumin 3.7 g/dL (3.4-5.0); Bilirubin Direct 0.2 mg/dL (0-0.2); Bilirubin Total 0.4 mg/dL (0.2-1.0); Magnesium 1.6 mg/dL (1.8-2.4); Potassium 3.5 mmol/L (3.5-5.1); Protein, Total 8.3 g/dL (6.4-8.2); Troponin (Emerg Dept Use Only) 0.04 ng/mL (0.0-0.045)
[2021-02-25] MEDS ORDERED: ONDANSETRON 4 MG/2 ML VIAL ONE (22:52)
[2021-02-25] MEDS ORDERED: MORPHINE 4 MG/ML SYR ONE ×2 (22:52→23:56)
--- NOTE | 2021-02-25 22:59 | ER ---
Nurse's Notes [facility] Name: Siva West Age: 50 yrs Sex: Male : 1970 Arrival Date: 02/25/2021 Time: 21:12 Bed 20 Private MD: Diagnosis: Chest pain, unspecified;Acute combined systolic (congestive) and diastolic (congestive) heart failure Presentation: 02/25 21:25 Chief complaint: Patient states: pcp sent pt in for lasix. worsening sob x2 days. ak2 Coronavirus screen: Client denies travel out of the [place] in the last 14 days. Ebola Screen: Patient negative for fever greater than or equal to 101.5 degrees Fahrenheit, and additional compatible Ebola Virus Disease symptoms Patient denies exposure to infectious person. Patient denies travel to an Ebola-affected area in the 21 days before illness onset. No symptoms or risks identified at this time. Initial Sepsis Screen: Does the patient meet any 2 criteria? No. Patient's initial sepsis screen is negative. Does the patient have a suspected source of infection? No. Patient's initial sepsis screen is negative. Risk Assessment: Do you want to hurt yourself or someone else? Patient reports no desire to harm self or others. Onset of symptoms was February 23, 2021. 21:25 Method Of Arrival: Ambulatory ak2 21:25 Acuity: EFRAIN 3 ak2 Triage Assessment: 21:28 General: Appears in no apparent distress. Behavior is calm, cooperative. Pain: Denies ak2 pain. Respiratory: Reports shortness of breath on exertion since 2 days ago Onset: The symptoms/episode began/occurred gradually, the patient has moderate shortness of breath. Historical: - Allergies: 21:28 No Known Allergies; ak2 - Immunization history:: Adult Immunizations up to date. - Social history:: Smoking status: unknown. - Family history:: not pertinent. Screenin:38 Abuse screen: Denies threats or abuse. Nutritional screening: No deficits noted. ea Tuberculosis screening: No symptoms or risk factors identified. Fall Risk IV access (20 points). Assessment: 22:00 General: Appears uncomfortable, Behavior is appropriate for age. Pain: Complains of ea pain in back. Neuro: Level of Consciousness is awake, alert, obeys commands, Oriented to person, place, time. Cardiovascular: Patient's skin is warm and dry. Respiratory: Airway is patent Respiratory effort is even, unlabored, Respiratory pattern is regular, tachypnea. Derm: Skin is dry, Skin is pink, Skin temperature is warm. 23:30 Reassessment: Patient and/or family updated on plan of care and expected duration. Pain ea level reassessed. Patient is alert, oriented x 3, equal unlabored respirations, skin warm/dry/pink. Hospitalist at bedside updating pt on plan of care. 02/26 00:02 Reassessment: Patient and/or family updated on plan of care and expected duration. Pain ea level reassessed. Patient is alert, oriented x 3, equal unlabored respirations, skin warm/dry/pink. Awaiting on Covid results. 01:22 Reassessment: Patient and/or family updated on plan of care and expected duration. Pain ea level reassessed. Patient is alert, oriented x 3, equal unlabored respirations, skin warm/dry/pink. Pt admitted to fourth floor, left ED via wheelchair, pt tolerating well. Vital Signs: 02/25 21:25 BP 123 / 87; Pulse 97; Resp 20; Temp 97.9; Pulse Ox 100% on R/A; Weight 167.83 kg; ak2 Height 6 ft. 3 in. (190.50 cm); 22:43 BP 122 / 99; Pulse 110; Resp 25; Pulse Ox 98% ; ea 02/26 00:02 BP 129 / 77; Pulse 99; Resp 23; Pulse Ox 98% ; ea 01:09 BP 115 / 84; Pulse 106; Resp 21; Pulse Ox 100% ; ea 02/25 21:25 Body Mass Index 46.25 (167.83 kg, 190.50 cm) ak2 ED Course: 02/25 21:12 Patient arrived in ED. ag3 21:27 Triage completed. ak2 21:51 Leena Gasca RN is Primary Nurse. ea 21:52 Sue Neumann MD is Attending Physician. ma2 22:00 Arm band placed on right wrist. Patient placed in an exam room, on a stretcher, on ea pulse oximetry. 22:00 Patient has correct armband on for positive identification. Bed in low position. Call ea light in reach. Side rails up X2. desk monitor on. Pulse ox on. NIBP on. 22:20 XRAY Chest (1 view) In Process Unspecified. EDMS 22:58 David Wolf DO is Hospitalizing Provider. ma2 23:48 No provider procedures requiring assistance completed. Patient admitted, IV remains in ea place. Administered Medications: 22:12 Drug: Furosemide 40 mg Route: IVP; Site: right antecubital; ea 22:38 Follow up: Response: No adverse reaction ea 22:38 Drug: morphine 4 mg {Note: RASS 0.} Route: IVP; Site: right antecubital; ea 23:47 Follow up: Response: No adverse reaction ea 22:38 Drug: Zofran (Ondansetron) 4 mg Route: IVP; Site: right antecubital; ea 23:47 Follow up: Response: No adverse reaction ea 22:59 Drug: Lasix (furosemide) 40 mg Route: IVP; Site: right antecubital; ea 23:47 Follow up: Response: No adverse reaction ea 23:38 Drug: morphine 2 mg Route: IVP; Site: right antecubital; ea 02/26 00:12 Follow up: Response: No adverse reaction; Pain is decreased; RASS: Alert and Calm (0) ea 01:00 Drug: morphine 2 mg Route: IVP; Site: right antecubital; ea 01:14 Follow up: Response: No adverse reaction ea Outcome: 02/25 22:58 Decision to Hospitalize by Provider. ma2 23:48 Instructed on the need for admit, Demonstrated understanding of instructions. ea 02/26 01:20 Admitted to Med/surg accompanied by tech, via wheelchair, with chart. ea Condition: stable 01:22 Admitted to Med/surg accompanied by tech, via wheelchair, room 408, with chart, Report ea called to Receiving nurse on fourth floor 01:22 Condition: stable 01:23 Patient left the ED. ea Signatures: Dispatcher [employer] EDMS Leena Gasca RN RN ea Alzahri, Mohammad, MD MD ma2 Virgie Bustamante Anthony ak2
--- NOTE | 2021-02-25 22:59 | EDPHYS ---
Physician Documentation [facility] Name: Siva West Age: 50 yrs Sex: Male : 1970 Arrival Date: 02/25/2021 Time: 21:12 Bed 20 Private MD: ED Physician Sue Neumann HPI: 02/25 22:06 This 50 yrs old Male presents to ER via Ambulatory with complaints of ma2 Shortness Of Breath. 22:06 The patient has shortness of breath at rest. Onset: The symptoms/episode began/occurred ma2 gradually, 2 day(s) ago. Associated signs and symptoms: Pertinent negatives: dizziness, hemoptysis, loss of consciousness. Severity of symptoms: At their worst the symptoms were moderate in the emergency department the symptoms are unchanged. The patient has experienced similar episodes in the past, hx of chf on lasix 40 po bid, . Historical: - Allergies: 21:28 No Known Allergies; ak2 - Immunization history:: Adult Immunizations up to date. - Social history:: Smoking status: unknown. - Family history:: not pertinent. ROS: 22:06 Constitutional: Negative for fever, chills, and weight loss. ma2 22:06 All other systems are negative. Exam: 22:06 Constitutional: This is a well developed, well nourished patient who is awake, alert, ma2 and in no acute distress. Eyes: Pupils equal round and reactive to light, extra-ocular motions intact. Lids and lashes normal. Conjunctiva and sclera are non-icteric and not injected. Cornea within normal limits. Periorbital areas with no swelling, redness, or edema. ENT: Nares patent. No nasal discharge, no septal abnormalities noted. Tympanic membranes are normal and external auditory canals are clear. Oropharynx with no redness, swelling, or masses, exudates, or evidence of obstruction, uvula midline. Mucous membranes moist. Neck: Trachea midline, no thyromegaly or masses palpated, and no cervical lymphadenopathy. Supple, full range of motion without nuchal rigidity, or vertebral point tenderness. No Meningismus. Chest/axilla: Normal chest wall appearance and motion. Nontender with no deformity. No lesions are appreciated. Cardiovascular: Regular rate and rhythm with a normal S1 and S2. No gallops, murmurs, or rubs. Normal PMI, no JVD. No pulse deficits. Respiratory: Lungs have equal breath sounds bilaterally, clear to auscultation and percussion. No rales, rhonchi or wheezes noted. No increased work of breathing, no retractions or nasal flaring. Abdomen/GI: Soft, non-tender, with normal bowel sounds. No distension or tympany. No guarding or rebound. No evidence of tenderness throughout. Back: No spinal tenderness. No costovertebral tenderness. Full range of motion. Skin: Warm, dry with normal turgor. Normal color with no rashes, no lesions, and no evidence of cellulitis. MS/ Extremity: Pulses equal, no cyanosis. Neurovascular intact. Full, normal range of motion. Neuro: Awake and alert, GCS 15, oriented to person, place, time, and situation. Cranial nerves II-XII grossly intact. Motor strength 5/5 in all extremities. Sensory grossly intact. Cerebellar exam normal. Normal gait. 22:06 Cardiovascular: Rate: tachycardic, \\F\\LE edema 2 + bilat . 22:06 Respiratory: moderate respiratory distress is noted, Breath sounds: rales, that are moderate. Vital Signs: 21:25 BP 123 / 87; Pulse 97; Resp 20; Temp 97.9; Pulse Ox 100% on R/A; Weight 167.83 kg; ak2 Height 6 ft. 3 in. (190.50 cm); 22:43 BP 122 / 99; Pulse 110; Resp 25; Pulse Ox 98% ; ea 02/26 00:02 BP 129 / 77; Pulse 99; Resp 23; Pulse Ox 98% ; ea 01:09 BP 115 / 84; Pulse 106; Resp 21; Pulse Ox 100% ; ea 02/25 21:25 Body Mass Index 46.25 (167.83 kg, 190.50 cm) ak2 MDM: 02/25 21:52 Patient medically screened. ma2 22:07 Differential diagnosis: CHF exacerbation, pneumonia, pulmonary edema, reactive airway ma2 disease. The patient's Wells Deep Vein Thrombosis Score was calculated as follows: No Risks (0 Pts). Data reviewed: vital signs, nurses notes. Data reviewed: patient also report chest pain and tightness, will admit for acs rule out . Counseling: I had a detailed discussion with the patient and/or guardian regarding: the historical points, exam findings, and any diagnostic results supporting the discharge/admit diagnosis, the presence of at least one elevated blood pressure reading (>120/80) during this emergency department visit, the need for further work-up and treatment in the hospital. ED course: has pacemaker ekg with no ischemic changes . 02/25 21:53 Order name: Basic Metabolic Panel; Complete Time: 22:53 [facility] 02/25 21:53 Order name: CBC with Diff; Complete Time: 23:26 [facility] 02/25 21:53 Order name: LFT's; Complete Time: 22:53 [facility] 02/25 21:53 Order name: Magnesium; Complete Time: 22:53 [facility] 02/25 21:53 Order name: NT PRO-BNP; Complete Time: :53 [facility] 02/25 21:53 Order name: PT-INR; Complete Time: 23: [facility] 02/25 21:53 Order name: Troponin (emerg Dept Use Only); Complete Time: 22:53 [facility] 02/25 21:53 Order name: XRAY Chest (1 view) [facility] 02/25 23:08 Order name: COVID-19 : Document "Date of Symptom Onset" if Symptomatic. 02/25 23:08 Order name: [facility] 02/26 00:29 Order name: SARS-COV-2 RT PCR [facility] 02/25 21:53 Order name: EKG; Complete Time: 21:54 [facility] 02/25 21:53 Order name: Cardiac monitoring; Complete Time: 22:12 [facility] 02/25 21:53 Order name: EKG - Nurse/Tech; Complete Time: 22:12 [facility] 02/25 21:53 Order name: IV Saline Lock; Complete Time: 22:12 [facility] 02/25 21:53 Order name: Labs collected and sent; Complete Time: 22:12 [facility] 02/25 21:53 Order name: O2 Per Protocol; Complete Time: 22:12 [facility] 02/25 21:53 Order name: O2 Sat Monitoring; Complete Time: 22:12 ma2 Administered Medications: 22:12 Drug: Furosemide 40 mg Route: IVP; Site: right antecubital; ea 22:38 Follow up: Response: No adverse reaction ea 22:38 Drug: morphine 4 mg {Note: RASS 0.} Route: IVP; Site: right antecubital; ea 23:47 Follow up: Response: No adverse reaction ea 22:38 Drug: Zofran (Ondansetron) 4 mg Route: IVP; Site: right antecubital; ea 23:47 Follow up: Response: No adverse reaction ea 22:59 Drug: Lasix (furosemide) 40 mg Route: IVP; Site: right antecubital; ea 23:47 Follow up: Response: No adverse reaction ea 23:38 Drug: morphine 2 mg Route: IVP; Site: right antecubital; ea 02/26 00:12 Follow up: Response: No adverse reaction; Pain is decreased; RASS: Alert and Calm (0) ea 01:00 Drug: morphine 2 mg Route: IVP; Site: right antecubital; ea 01:14 Follow up: Response: No adverse reaction ea Disposition: 02/25/21 22:58 Hospitalization ordered by David Wolf for Inpatient Admission. Preliminary diagnosis are Chest pain, unspecified, Acute combined systolic (congestive) and diastolic (congestive) heart failure. - Bed requested for Telemetry/MedSurg (Inpatient). - Status is Inpatient Admission. ea - Condition is Stable. - Problem is new. - Symptoms are unchanged. Signatures: Dispatcher [employer] EDMS Anastasiia Tuttle RN RN mw Attema, Lee, HADOOP ANALYST-C HADOOP ANALYST-Donaldo1 Leena Gasca RN RN ea Alzahri, Mohammad, MD MD ma2 [place], Anthony ak2 Corrections: (The following items were deleted from the chart) 00:56 02/25 22:58 Hospitalization Ordered by David Wolf DO for Inpatient Admission. emery Preliminary diagnosis is Chest pain, unspecified; Acute combined systolic (congestive) and diastolic (congestive) heart failure. Bed requested for Telemetry/MedSurg (Inpatient). Status is Inpatient Admission. Condition is Stable. Problem is new. Symptoms are unchanged. trang 02/26 01:23 00:56 02/25/2021 22:58 Hospitalization Ordered by David Wolf DO for Inpatient ea Admission. Preliminary diagnosis is Chest pain, unspecified; Acute combined systolic (congestive) and diastolic (congestive) heart failure. Bed requested for Telemetry/MedSurg (Inpatient). Status is Inpatient Admission. Condition is Stable. Problem is new. Symptoms are unchanged. mw
--- NOTE | 2021-02-26 00:28 | P.HP ---
Certification for Inpatient Patient admitted to: Inpatient With expected LOS: >2 Midnights Patient will require the following post-hospital care: None Practitioner: I am a practitioner with admitting privileges, knowledge of patient current condition, hospital course, and medical plan of care. Services: Services provided to patient in accordance with Admission requirements found in Title 42 Section 412.3 of the Code of Federal Regulations Patient History Date of Service: 02/25/21 Reason for admission: CHF exacerbation History of Present Illness: Mr. West is a pleasant 50-year-old male with severe systolic congestive heart failure with EF around 10%, status post pacemaker/defibrillator placement, atrial fibrillation on chronic anticoagulation, hypertension, hypothyroidism presents emergency department for shortness of breath. Patient reports increasing shortness of breath throughout the day today. Patient with multiple admissions over the course of the last 2 months for CHF exacerbations. Patient is seen by and is currently awaiting being placed on the heart transplant list. Patient reports he has been compliant with his home medications. Workup in the emergency department significant for CO2 34 BUN 20 creatinine 1.36 GFR 56, baseline GFR appears to be around 70. BNP 4759 troponin 0.04 hemoglobin 12.4 hematocrit 36.3. Chest x-ray shows what appears to be some mild pulmonary edema pending official radiology interpretation. Patient significantly orthopnic, having to sit up to breathe, also mildly tachycardic with a rate around 110. ED provider wishes to admit for further evaluation and management of CHF exacerbation. Allergies No Known Allergies Allergy (Verified 10/23/18 04:39) Home Medications: Amiodarone HCl [Cordarone*] 200 mg PO BID 02/08/21 Aspirin [Aspirin EC 81 MG] 81 mg PO DAILY 02/08/21 Bumetanide 2 mg PO DAILY 02/08/21 Clopidogrel Bisulfate [Plavix*] 75 mg PO DAILY 02/08/21 Levothyroxine [Synthroid*] 0.05 mg PO ACB 02/08/21 Pantoprazole [Protonix Tab*] 40 mg PO DAILY 02/08/21 Potassium Chloride [Klor-Con 10] 20 meq PO DAILY 02/08/21 Pregabalin [Lyrica*] 50 mg PO DAILY 02/08/21 Sacubitril/Valsartan [Entresto 24 mg-26 mg Tablet] 1 tab PO DAILY 02/08/21 Spironolactone [Aldactone*] 25 mg PO BID 02/08/21 Zinc Sulfate [Zinc Sulfate*] 220 mg PO DAILY 02/08/21 metOLazone [Metolazone] 5 mg PO DAILY 02/08/21 Amiodarone HCl [Cordarone*] 200 mg PO BID #60 tab 02/09/21 Apixaban [Eliquis] 5 mg PO BID #60 tablet 02/09/21 Sacubitril/Valsartan [Entresto 24 mg-26 mg Tablet] 1 tab PO BID #60 tab 02/09/21 Spironolactone [Aldactone*] 25 mg PO BID #60 tab 02/09/21 Hydrocodone 10/APAP 325 [[place] 10/325] 1 tab PO Q6H PRN #30 tab 02/10/21 - Past Medical/Surgical History Diabetic: No -: HTN -: Severe CHF reduced EF (10-15%) -: Atrial fibrillation on chronic anticoagulation therapy -: seizure (hypertensive emergency) -: pacemaker/defibrillator -: hypothyroidism -: R ankle surgery -: laurie knee surgeries Psychosocial/ Personal History: Patient is disabled, lives in a trailer on his sister's property - Family History Father -: Heart disease, Hypertension Mother -: Heart disease, Hypertension, Lung disease, Diabetes Notes: COPD - Social History Smoking Status: Never smoker Alcohol use: No CD- Drugs: No Caffeine use: Yes Place of Residence: Home Review of Systems 10-point ROS is otherwise unremarkable Respiratory: Shortness of Breath, SOB with Excertion Cardiovascular: Orthopnea, Edema, As per HPI Physical Examination - Physical Exam General: Alert, In no apparent distress, Oriented x3 HEENT: Atraumatic, Normocephalic, PERRLA, Mucous membr. moist/pink, EOMI, Sclerae nonicteric Neck: Supple, 2+ carotid pulse no bruit, No LAD, Without JVD or thyroid abnormality Respiratory: Clear to auscultation bilaterally, Normal air movement Cardiovascular: Regular rate/rhythm, Normal S1 S2, Edema (Bilateral lower extremity edema, nonpitting) Capillary refill: <2 Seconds Gastrointestinal: Normal bowel sounds, No tenderness Integumentary: No rashes, Other (Some dark discoloration of the lower extremities, likely related to significant edema and dependent position, patient reports this is not abnormal for him) Neurological: Normal speech, Normal strength at 5/5 x4 extr, Normal tone, Normal affect - Studies Laboratory Data (last 24 hrs) 02/25/21 22:03: PT 15.6 H, INR 1.35 02/25/21 22:03: WBC 10.30, Hgb 12.4 L, Hct 36.3 L, Plt Count 305 02/25/21 22:03: Sodium 139, Potassium 3.5, BUN 20 H, Creatinine 1.36 H, Glucose 109 H, Magnesium 1.6 L, Total Bilirubin 0.4, AST 9 L, ALT 17, Alkaline Phosphatase 92 Assessment and Plan - Plan Assessment Dyspnea secondary to acute on chronic heart failure reduced ejection fraction (10-15%) s/p pacemaker/defibrillator insertion Atrial fibrillation on chronic anticoagulation therapy Renal insufficiency Hypertension Hyperlipidemia Hypothyroidism Chronic pain Plan Dyspnea secondary to acute on chronic heart failure reduced ejection fraction (10-15%) s/p pacemaker/defibrillator insertion: Continue home medications including entresto, aspirin, Plavix, spironolactone, transition patient to IV Lasix 40 mg t.i.d. in addition to patient's home dose of metolazone. Cardiology consult in place, 1500 cc per day fluid duration, daily weights. Patient is attempting to be placed on the heart transplant list, will need to continue this on outpatient basis. Monitor on telemetry, continue patient's Eliquis for DVT prophylaxis. Appreciate further input from cardiology. Atrial fibrillation on chronic anticoagulation therapy: Continue home medications including amiodarone, Eliquis. Monitor on telemetry, stable this time. Patient paced on the monitor. Renal insufficiency: Likely CRS, will repeat labs in the morning, if worsening or no improvement may need nephrology consult. Hypertension: Obtain and continue home medications Hyperlipidemia: Obtain and continue home medications Hypothyroidism: Levothyroxine continued Chronic pain: Continue home medication. Discharge Plan: Home Plan to discharge in: 48 Hours - Advance Directives Does patient have a Living Will: No Does patient have a Durable POA for Healthcare: No - Code Status/Comfort Care Code Status Assessed: Yes (Full code) Critical Care: No Time Spent Managing Pts Care (In Minutes): 55
[2021-02-26] MEDS ORDERED: ONDANSETRON 4 MG/2 ML VIAL IV PRN (01:26)
[2021-02-26 01:30] VITALS: BMI 46.4
[2021-02-26] MEDS: FUROSEMIDE 40 MG/4 ML VIAL IV SCH ×2 (01:50→08:20)
[2021-02-26] MEDS: HYDROCODONE/APAP 10/325 TAB PO PRN ×4 (04:20→21:33)
[2021-02-26 06:03] LABS: Absolute Lymphocytes (CBC) 1.7 K/uL (0.7-4.9); Basophils % 0.8 % (0-1.3); Lymphocytes % 20.1 % (15.3-44.8); MPV 7.1 fL (7.6-11.3); RBC Red Blood Cell Count 3.76 M/uL (4.33-5.43)
[2021-02-26 06:19] LABS: Albumin 3.3 g/dL (3.4-5.0); Bilirubin Total 0.4 mg/dL (0.2-1.0); Magnesium 1.7 mg/dL (1.8-2.4); Protein, Total 7.3 g/dL (6.4-8.2)
[2021-02-26 06:21] LABS: Potassium 2.8 mmol/L (3.5-5.1)
[2021-02-26] MEDS: LEVOTHYROXINE SOD 0.05 MG TABLET PO SCH (06:30)
[2021-02-26] MEDS ORDERED: POTASSIUM CL SA 10 MEQ TAB PO ONE ×2 (07:30→14:24)
[2021-02-26] MEDS ORDERED: MAGNESIUM SULFATE 1 gm IVPB 1 GM/100 ML BAG IV ONE (07:45)
[2021-02-26] MEDS: CLOPIDOGREL 75 MG TABLET PO SCH (08:18)
[2021-02-26] MEDS: AMIODARONE HCL 200 MG TAB PO SCH ×2 (08:20→21:32)
[2021-02-26] MEDS: SPIRONOLACTONE 25 MG TABLET PO SCH ×2 (08:20→21:31)
[2021-02-26] MEDS: ASPIRIN EC 81 MG TAB PO SCH (08:20)
[2021-02-26] MEDS: APIXABAN 5 MG TABLET PO SCH ×2 (08:20→21:31)
[2021-02-26] MEDS: PANTOPRAZOLE 40MG TABLET PO SCH (08:27)
[2021-02-26] MEDS: ZINC SULFATE 220 MG CAP PO SCH (08:27)
[2021-02-26] MEDS: PREGABALIN 50 MG CAP PO SCH (08:27)
--- NOTE | 2021-02-26 08:39 | RAD REPORT ---
EXAM DESCRIPTION: RAD - Chest Single View - 02/25/2021 10:20 pm CLINICAL HISTORY: DYSPNEA Chest pain. COMPARISON: Chest Single View dated 02/09/2021; Chest Single View dated 02/07/2021; Chest Single View da neela 10/23/2018 FINDINGS: Portable technique limits examination quality. Mild interstitial pulmonary edema. The heart is moderately enlarged in size. Multilead pacer/defibril lator device is present. IMPRESSION: Mild CHF.
[2021-02-26] MEDS: METOLAZONE 5 MG TABLET PO SCH (09:00)
[2021-02-26] MEDS: SACUBITRIL/VALSARTAN 24/26 MG TAB PO SCH ×2 (09:00→21:32)
[2021-02-26] MEDS ORDERED: KCL 20 MEQ/100 mL IVPB 20 MEQ/100 ML BAG IV SCH (09:00)
[2021-02-26] MEDS ORDERED: MORPHINE 2 MG/ML SYR IV PRN (09:40)
--- NOTE | 2021-02-26 11:58 | EKG ---
Test Date: 2021-02-25 Test Time: 21:58:02 [employer]: . MEASUREMENT RESULTS: Intervals: Rate: 100 WA: 80 QRSD: 196 QT: 464 QTc: 598 [place]: P: 54 WA: 80 QRS: 152 T: -38 INTERPRETIVE STATEMENTS: Electronic ventricular pacemaker Compared to ECG 02/07/2021 19:57:01 Atrial-sensed ventricular-paced complex(es) or rhythm no longer present Electronically Signed On 02-26-21 11:56:54 CDT by Won Thomas
--- NOTE | 2021-02-26 13:28 | P.PN ---
Subjective Date of Service: 02/26/21 Chief Complaint: CHF exacerbation Subjective: Other ( Patient reporting some shortness of breath especially with exertion. Currently on room air.) Physical Examination - Vital Signs Temperature: 97.1 F Blood Pressure: 112/76 Pulse: 80 Respirations: 20 Pulse Ox (%): 97 - Studies Laboratory Data (last 24 hrs) 02/25/21 22:03: PT 15.6 H, INR 1.35 02/25/21 22:03: WBC 10.30, Hgb 12.4 L, Hct 36.3 L, Plt Count 305 02/25/21 22:03: Sodium 139, Potassium 3.5, BUN 20 H, Creatinine 1.36 H, Glucose 109 H, Magnesium 1.6 L, Total Bilirubin 0.4, AST 9 L, ALT 17, Alkaline Phosphatase 92 Assessment & Plan Discharge Plan: Home Plan to discharge in: 48 Hours Physician Review Additional Text: Physical Exam: GENERAL: Patient alert, cooperative. Currently on room air. Some shortness of breath with exertion. VITAL SIGNS: Reviewed HEENT: Head is normocephalic and atraumatic. Extraocular muscles are intact. Pupils are equal, round, and reactive to light and accommodation. Nares appeared normal. Mouth is well hydrated and without lesions. Mucous membranes are moist. NECK: Supple. No carotid bruits. No lymphadenopathy or thyromegaly. LUNGS: Some crackles to the bases HEART: Regular rate and rhythm, no appreciable gallops, rubs, murmurs or extra heart sounds ABDOMEN: Soft, nontender, and nondistended. Positive bowel sounds. No hepatosplenomegaly was noted. EXTREMITIES: Mild pitting edema to the lower extremities NEUROLOGIC: The patient is oriented to person, place and time. Strength and sensation are grossly intact. Face is symmetric. SKIN: Normal color, turgor and temperature. No ulcerations or rashes noted. Impression: Dyspnea secondary to acute on chronic systolic congestive heart failure with reduced ejection fraction (10-15%) s/p pacemaker/defibrillator insertion Atrial fibrillation on chronic anticoagulation therapy Chronic renal disease stage III Hypertension Hyperlipidemia Hypothyroidism Chronic pain Plan Dyspnea secondary to acute on chronic systolic congestive heart failure with reduced ejection fraction (10-15%) s/p pacemaker/defibrillator insertion: Continue with aggressive IV diuretic therapy. Will adjust diuretics at this time. Continue with metolazone and spironolactone. Patient also takes Entresto, aspirin, Plavix. Cardiology consulted. Will discuss with cardiology in detail. Patient wanting to be on heart transplant. This will need to be done as an outpatient. Had a long discussion with the patient and sister, who is trying to help patient see the appropriate specialist as an outpatient. Sister will get in contact with insurance to help set up arrangements to establish care with a PCP, cardiology and with heart transplant team. Patient on Eliquis for atrial fibrillation. Will consult nephrology to evaluate his chronic renal disease. Anticipate improvement over the next 24 to 48 hours. Atrial fibrillation on chronic anticoagulation therapy: Continue home medications including amiodarone, Eliquis. Monitor on telemetry, stable this ti me. Patient paced on the monitor. Chronic renal disease stage III: Nephrology consulted to help with diuresis. Hypertension: Obtain and continue home medications Hyperlipidemia: Obtain and continue home medications Hypothyroidism: Levothyroxine continued Chronic pain: Continue home medication. Code Status: Full Code DVT prophylaxis: Lovenox Advanced Care Planning-30 minutes: Plan of care for the patient's discharge was discussed in detail with the patient and family. Time Spent Managing Pts Care (In Minutes): 55
[2021-02-26] MEDS: FUROSEMIDE 20 MG/ 2ML VIAL IV SCH ×2 (14:00→21:32)
[2021-02-26] MEDS ORDERED: FUROSEMIDE 20 MG/ 2ML VIAL IV SCH (17:00)
[2021-02-26] MEDS ORDERED: FENTANYL CITR 100 MCG/2 ML IV ONE (19:00)
--- NOTE | 2021-02-26 22:25 | P.CNS ---
Date of Consult: 02/26/21 Chief Complaint: CHF exacerbation History of Present Illness: Pt is a 50 y/o male with past medical hx of CAD, CHF with ef of 10% presents with complaints of shortness of breath the last couple of days that has progressively gotten worse. On arrival pt noted to be short of breath, ta chypneic which has improved on diuresis. Labs pertinent for creatinine of 1.3 compared to baseline of 1.0. Kidney function also improving with diuresis. Renal has been consulted for DAVID on ckd. Allergies No Known Allergies Allergy (Verified 02/26/21 01:29) Home Medications: Aspirin [Aspirin EC 81 MG] 81 mg PO DAILY 02/08/21 Bumetanide 2 mg PO DAILY 02/08/21 Clopidogrel Bisulfate [Plavix*] 75 mg PO DAILY 02/08/21 Levothyroxine [Synthroid*] 0.05 mg PO ACB 02/08/21 Pantoprazole [Protonix Tab*] 40 mg PO DAILY 02/08/21 Potassium Chloride [Klor-Con 10] 20 meq PO DAILY 02/08/21 Pregabalin [Lyrica*] 50 mg PO DAILY 02/08/21 Sacubitril/Valsartan [Entresto 24 mg-26 mg Tablet] 1 tab PO BID 02/08/21 Zinc Sulfate [Zinc Sulfate*] 220 mg PO DAILY 02/08/21 metOLazone [Metolazone] 5 mg PO DAILY 02/08/21 Amiodarone HCl [Cordarone*] 200 mg PO BID #60 tab 02/09/21 Apixaban [Eliquis] 5 mg PO BID #60 tablet 02/09/21 Spironolactone [Aldactone*] 25 mg PO BID #60 tab 02/09/21 Hydrocodone 10/APAP 325 [[place] 10/325] 1 tab PO Q6H PRN #30 tab 02/10/21 - Past Medical/Surgical History Diabetic: No -: HTN -: Severe CHF reduced EF (10-15%) -: Atrial fibrillation on chronic anticoagulation therapy -: seizure (hypertensive emergency) -: pacemaker/defibrillator -: hypothyroidism -: R ankle surgery -: laurie knee surgeries Psychosocial/ Personal History: Patient is disabled, lives in a trailer on his sister's property - Family History Father Medical History: Heart disease, Hypertension Mother Medical History: Heart disease, Hypertension, Lung disease, Diabetes Notes: COPD - Social History Smoking Status: Unknown if ever smoked Alcohol use: No CD- Drugs: No Caffeine use: Yes Place of Residence: Home Review of Systems Respiratory: Shortness of Breath, SOB with Excertion Cardiovascular: Edema (Other ros is otherwise unremarkable.) Physical Examination Temp Pulse Resp BP Pulse Ox 97.5 F 107 H 22 H 133/67 100 02/26/21 20:00 02/26/21 21:32 02/26/21 21:33 02/26/21 21:32 02/26/21 21:33 General: Alert, In no apparent distress HEENT: Atraumatic, PERRLA, Mucous membr. moist/pink, EOMI, Sclerae nonicteric Neck: Supple, 2+ carotid pulse no bruit, No LAD, Without JVD or thyroid abnormality Respiratory: Diminished Cardiovascular: Edema Capillary refill: <2 Seconds Gastrointestinal: Normal bowel sounds, No tenderness Musculoskeletal: No tenderness Integumentary: No rashes Neurological: Normal gait, Normal speech, Normal tone, Normal affect Laboratory Data (last 24 hrs) 02/25/21 22:03: PT 15.6 H, INR 1.35 02/25/21 22:03: WBC 10.30, Hgb 12.4 L, Hct 36.3 L, Plt Count 305 02/25/21 22:03: Sodium 139, Potassium 3.5, BUN 20 H, Creatinine 1.36 H, Glucose 109 H, Magnesium 1.6 L, Total Bilirubin 0.4, AST 9 L, ALT 17, Alkaline Phosphatase 92 Conclusions/Impression: Problems DAVID most likely 2/2 cardiorenal etiology; baseline creatinine 0.9 to 1. CHF exacerbation Hypokalemia Hyponatremia Hypervolemia Plan 1l fluid restriction Continue ordered diuresis Replete potassium Low salt diet Avoid nephrotoxins for now including acei/arbs until david is resolved Avoid contrast exposure as well or nsaids Thank you for this interesting consult. Will continue to follow
[2021-02-26] MEDS ORDERED: MORPHINE 2 MG/ML SYR IV ONE (23:31)
[2021-02-27] MEDS: HYDROCODONE/APAP 10/325 TAB PO PRN ×2 (03:57→11:39)
[2021-02-27 04:52] VITALS: O2SAT 98
[2021-02-27 06:10] LABS: Absolute Lymphocytes (CBC) 1.9 K/uL (0.7-4.9); Basophils % 0.8 % (0-1.3); Hematocrit 31.3 % (39.6-49.0); MPV 7.6 fL (7.6-11.3); RBC Red Blood Cell Count 3.44 M/uL (4.33-5.43)
[2021-02-27] MEDS: LEVOTHYROXINE SOD 0.05 MG TABLET PO SCH (06:11)
[2021-02-27 06:46] LABS: Albumin 3.3 g/dL (3.4-5.0); Bilirubin Total 0.5 mg/dL (0.2-1.0); Magnesium 1.8 mg/dL (1.8-2.4); Potassium 3.5 mmol/L (3.5-5.1); Protein, Total 7.1 g/dL (6.4-8.2)
[2021-02-27] MEDS ORDERED: MAGNESIUM SULFATE 1 gm IVPB 1 GM/100 ML BAG IV ONE (07:13)
[2021-02-27] MEDS ORDERED: MORPHINE 2 MG/ML SYR IV ONE (08:11)
[2021-02-27] MEDS: SPIRONOLACTONE 25 MG TABLET PO SCH (08:27)
[2021-02-27] MEDS: PREGABALIN 50 MG CAP PO SCH (08:28)
[2021-02-27] MEDS: ZINC SULFATE 220 MG CAP PO SCH (08:28)
[2021-02-27] MEDS: PANTOPRAZOLE 40MG TABLET PO SCH (08:28)
[2021-02-27] MEDS: CLOPIDOGREL 75 MG TABLET PO SCH (08:33)
[2021-02-27] MEDS: ASPIRIN EC 81 MG TAB PO SCH (08:33)
[2021-02-27] MEDS: AMIODARONE HCL 200 MG TAB PO SCH (08:33)
[2021-02-27] MEDS: FUROSEMIDE 20 MG/ 2ML VIAL IV SCH (08:34)
[2021-02-27] MEDS: APIXABAN 5 MG TABLET PO SCH (08:34)
[2021-02-27] MEDS: SACUBITRIL/VALSARTAN 24/26 MG TAB PO SCH (08:34)
[2021-02-27] MEDS: METOLAZONE 5 MG TABLET PO SCH (08:35)
[2021-02-27] MEDS ORDERED: POTASSIUM CL SA 10 MEQ TAB PO ONE (09:00)
--- NOTE | 2021-02-27 09:17 | RAD REPORT ---
EXAM DESCRIPTION: RAD - Chest Pa And Lat (2 Views) - 02/27/2021 5:13 am CLINICAL HISTORY: follow up CHF Chest pain. COMPARISON: Chest Single View dated 02/25/2021; Chest Single View dated 02/09/2021; Chest Single View d ated 02/07/2021; Chest Single View dated 10/23/2018 FINDINGS: Mild interstitial pulmonary edema is seen. Small right pleural effusion is present. The he art is enlarged with a multi lead pacer/defibrillator device.
--- NOTE | 2021-02-27 11:48 | P.DS ---
Admission Date: 02/25/21 Discharge Date: 02/27/21 Primary Care Provider: none; Cardiology-Dr. Thomas Disposition: ROUTINE DISCHARGE Discharge Condition: GOOD Reason for Admission: CHF exacerbation Consultations: Cardiology-Dr. Thomas Procedures: COVID: Negative CXR: COMPARISON: Chest Single View dated 02/09/2021; Chest Single View dated 02/07/2021; Chest Single View dated 10/23/2018 FINDINGS: Portable technique limits examination quality. Mild interstitial pulmonary edema. The heart is moderately enlarged in size. Multilead pacer/defibrillator device is present. IMPRESSION: Mild CHF. Medical Problem List: Dyspnea secondary to acute on chronic systolic congestive heart failure with reduced ejection fraction (10-15%) s/p pacemaker/defibrillator insertion Atrial fibrillation on chronic anticoagulation therapy Chronic renal disease stage III Hypertension Hypothyroidism Chronic pain GERD Obesity, BMI 46.4 Brief History of Present Illness: 50-year-old male with severe systolic congestive heart failure with EF around 10%, status post pacemaker/defibrillator placement, atrial fibrillation on chronic anticoagulation, hypertension, hypothyroidism presents emergency department for shortness of breath. Patient reports increasing shortness of breath throughout the day today. Patient with multiple admissions over the course of the last 2 months for CHF exacerbations. Patient is seen by cardiology cardiology- and is currently awaiting being placed on the heart transplant list. Patient reports he has been compliant with his home medications. Workup in the emergency department significant for CO2 34 BUN 20 creatinine 1.36 GFR 56, baseline GFR appears to be around 70. BNP 4759 troponin 0.04 hemoglobin 12.4 hematocrit 36.3. Patient was admitted for further evaluation and treatment. Hospital Course: Patient presented with dyspnea secondary to acute on chronic systolic congestive heart failure. Patient with reduced ejection fraction around 10 to 15%. Patient also with history of pacemaker defibrillator, atrial fibrillation on chronic anticoagulation therapy, chronic renal disease stage III, hypertension, hyperlipidemia, hypothyroidism and chronic pain. The patient was admitted for IV diuresis. His condition has improved. Patient not requiring any oxygen. Case discussed with cardiology in detail. Cardiology recommends to continue 1200 cc/day fluid restriction and low-salt diet. Cardiology recommends to increase Bumex. At discharge patient will continue with diuretic therapyBumex 2 mg 1 pill twice daily, Aldactone 25 mg 1 pill twice daily, metolazone 5 mg daily, and potassium supplementation 20 mEq daily. Recommend to recheck labBMP in 1 week to monitor his progress. Patient will also continue with his other medications including Entresto 24/26 mg 1 pill twice daily, aspirin 81 mg daily, Plavix 75 mg daily, Eliquis 5 mg 1 pill twice daily, amiodarone 200 mg 1 pill twice daily. Patient will need to follow-up with cardiology within 1 week. Cardiology plans to send patient for heart transplant evaluation. Had a long discussion with the sister that we will help arrange for follow-up with cardiology. CHF education provided. At discharge patient will follow up to also establish care locally in the area with a PCP. Patient with atrial fibrillation on chronic anticoagulation therapy. At discharge patient will continue with amiodarone 200 mg 1 pill twice daily and Eliquis 5 mg 1 pill twice daily. Follow-up with cardiology to further monitor and adjust. Patient with chronic renal disease stage III. This appears stable. Future medications will need to be renally adjusted. Recommend follow-up with nephrology in 1 to 2 weeks to follow-up hospitalization. Recommend to recheck labBMP in 1 week. Patient with hypertension. At discharge patient will continue with current medicationsEntresto 24/26 mg 1 pill twice daily. At discharge recommend to maintain blood pressure less than 130/80. Further adjustment can be done by his PCP. Patient with hypothyroidism. At discharge patient will continue with levothyroxine 50 mcg daily daily. Patient with chronic pain. At discharge patient will continue with current pain medicationhydrocodone 10/325 mg every 6 hours as needed for pain and Lyrica 50 mg daily. Recommend follow-up with pain management to further evaluate and address. Patient with GERD. At discharge patient will continue with Protonix 40 mg daily. Vital Signs/Physical Exam: Temp Pulse Resp BP Pulse Ox 96.7 F L 82 18 111/65 98 02/27/21 08:00 02/27/21 08:27 02/27/21 11:39 02/27/21 08:27 02/27/21 11:39 General: Alert, In no apparent distress, Oriented x3, Cooperative HEENT: Atraumatic Neck: Supple Respiratory: Clear to auscultation bilaterally Cardiovascular: Normal pulses, Regular rate/rhythm Gastrointestinal: Normal bowel sounds, No tenderness, No masses, No rebound, No guarding Musculoskeletal: No warmth Integumentary: No tenderness/swelling (Edema to the lower extremities improved) Neurological: Normal speech, Normal strength at 5/5 x4 extr, Normal tone, Normal affect Laboratory Data at Discharge: WBC 9.30 K/uL (4.3-10.9) 02/27/21 05:39 Hgb 10.5 g/dL (13.6-17.9) L 02/27/21 05:39 Hct 31.3 % (39.6-49.0) L 02/27/21 05:39 Plt Count 294 K/uL (152-406) 02/27/21 05:39 PT 15.6 SECONDS (9.5-12.5) H 02/25/21 22:03 INR 1.35 02/25/21 22:03 Sodium 134 mmol/L (136-145) L 02/27/21 05:39 Potassium 3.5 mmol/L (3.5-5.1) 02/27/21 05:39 BUN 22 mg/dL (7-18) H 02/27/21 05:39 Creatinine 1.08 mg/dL (0.55-1.3) 02/27/21 05:39 Glucose 119 mg/dL (74-106) H 02/27/21 05:39 Magnesium 1.8 mg/dL (1.8-2.4) 02/27/21 05:39 Total Bilirubin 0.5 mg/dL (0.2-1.0) 02/27/21 05:39 AST 13 U/L (15-37) L 02/27/21 05:39 ALT 18 U/L (12-78) 02/27/21 05:39 Alkaline Phosphatase 75 U/L (45-117) 02/27/21 05:39 Troponin I 0.05 ng/mL (0.0-0.045) H 02/26/21 05:47 Home Medications: Aspirin [Aspirin EC 81 MG] 81 mg PO DAILY 02/08/21 Clopidogrel Bisulfate [Plavix*] 75 mg PO DAILY 02/08/21 Levothyroxine [Synthroid*] 0.05 mg PO ACB 02/08/21 Pantoprazole [Protonix Tab*] 40 mg PO DAILY 02/08/21 Potassium Chloride [Klor-Con 10] 20 meq PO DAILY 02/08/21 Pregabalin [Lyrica*] 50 mg PO DAILY 02/08/21 Sacubitril/Valsartan [Entresto 24 mg-26 mg Tablet] 1 tab PO BID 02/08/21 Zinc Sulfate [Zinc Sulfate*] 220 mg PO DAILY 02/08/21 metOLazone [Metolazone] 5 mg PO DAILY 02/08/21 Amiodarone HCl [Cordarone*] 200 mg PO BID #60 tab 02/09/21 Apixaban [Eliquis] 5 mg PO BID #60 tablet 02/09/21 Spironolactone [Aldactone*] 25 mg PO BID #60 tab 02/09/21 Hydrocodone 10/APAP 325 [[place] 10/325*] 1 tab PO Q6H PRN #30 tab 02/10/21 Bumetanide 2 mg PO BID #60 02/27/21 New Medications: Bumetanide 2 mg PO BID #60 Physician Discharge Instructions: Patient presented with dyspnea secondary to acute on chronic systolic congestive heart failure. Patient with reduced ejection fraction around 10 to 15%. Patie nt also with history of pacemaker defibrillator, atrial fibrillation on chronic anticoagulation therapy, chronic renal disease stage III, hypertension, hyperlipidemia, hypothyroidism and chronic pain. The patient was admitted for IV diuresis. His condition has improved. Patient not requiring any oxygen. Case discussed with cardiology in detail. Cardiology recommends to continue 1200 cc/day fluid restriction and low-salt diet. Cardiology recommends to increase Bumex. At discharge patient will continue with diuretic therapyBumex 2 mg 1 pill twice daily, Aldactone 25 mg 1 pill twice daily, metolazone 5 mg daily, and potassium supplementation 20 mEq daily. Recommend to recheck labBMP in 1 week to monitor his progress. Patient will also continue with his other medications including Entresto 24/26 mg 1 pill twice daily, aspirin 81 mg daily, Plavix 75 mg daily, Eliquis 5 mg 1 pill twice daily, amiodarone 200 mg 1 pill twice daily. Patient will need to follow-up with cardiology within 1 week. Cardiology plans to send patient for heart transplant evaluation. Had a long discussion with the sister that we will help arrange for follow-up with cardiology. CHF education provided. At discharge patient will follow up to also establish care locally in the area with a PCP. Patient with atrial fibrillation on chronic anticoagulation therapy. At discharge patient will continue with amiodarone 200 mg 1 pill twice daily and Eliquis 5 mg 1 pill twice daily. Follow-up with cardiology to further monitor and adjust. Patient with chronic renal disease stage III. This appears stable. Future medications will need to be renally adjusted. Recommend follow-up with nephrology in 1 to 2 weeks to follow-up hospitalization. Recommend to recheck labBMP in 1 week. Patient with hypertension. At discharge patient will continue with current medicationsEntresto 24/26 mg 1 pill twice daily. At discharge recommend to maintain blood pressure less than 130/80. Further adjustment can be done by his PCP. Patient with hypothyroidism. At discharge patient will continue with levothyroxine 50 mcg daily daily. Patient with chronic pain. At discharge patient will continue with current pain medicationhydrocodone 10/325 mg every 6 hours as needed for pain and Lyrica 50 mg daily. Recommend follow-up with pain management to further evaluate and address. Patient with GERD. At discharge patient will continue with Protonix 40 mg daily. Diet: AHA Activity: Fall precautions Followup: SUPRIYA CAGLE [Primary Care Provider] - Time spent managing pt's care (in minutes): 55
[2021-02-27 12:08] VITALS: BP 99/67; TEMP 98.6
--- NOTE | 2021-03-03 10:41 | PN ---
Date of Progress Note: 02/27/2021 Mr. West had came in with acute on chronic systolic congestive heart failure, known ejection fracti on of 10%, status post defibrillator and pacemaker. Awaiting seeing the transplant team in [place]. Overnight, he diuresed very well and is feeling better. His creatinine is 1.08. Entresto needs to be increased. His potassium was supplemented from 2.8 to 3.5. He should continue the rest of his me dications include amiodarone, Eliquis, aspirin, Plavix, Lasix, spironolactone. He is intolerant to c arvedilol. He should follow up with Dr. Shell in the near future and hopefully will see the transpla nt team soon. CARY/MAYRA Voice ID: [id number] Report ID: [id number]
--- NOTE | 2021-03-03 11:48 | CON ---
Date of Consultation: 02/26/2021 Reason For Consultation: Admitted on 02/25/[address] Wolf for congestive heart failure. I saw t he patient on 02/26/2021. History Of Present Illness: Mr. West is a 50-year-old white male, who has known history of chronic systolic congestive heart failure, who comes in with acute exacerbation with shortness of breath, PN D, orthopnea, pedal edema. He is known to have an ejection fraction about 10%. He is status post pa cemaker, defibrillator. Has chronic atrial fibrillation, on anticoagulation. Has a history of hyper tension, obesity, hypothyroidism. He normally sees Dr. Gabby Shell and is currently awaiting conn ection with the transplant team in [place] to be placed on the transplant list for the future. He street s been compliant with his medications. He came in with congestive heart failure. Creatinine is 1.36 . BNP was 4759. His hemoglobin was 12.4. Chest x-ray shows pulmonary edema. Denied any chest pain , nausea, vomiting, diaphoresis, palpitations, or syncope. Allergies: NONE. Review of Systems: Negative. Social History: Negative. Family History: Noncontributory. Medications: At home include amiodarone, aspirin, bumetanide, Plavix, levothyroxine, Protonix, Entre sto , Lyrica, spironolactone, zinc, and metolazone daily. Physical Examination: Vital Signs: Stable. He was afebrile. He weighed 371 pounds. He was in a paced rhythm. HEENT: Negative. Neck: Supple with no bruit. Chest: Reveals rales both bases. Cardiac: Revealed a paced rhythm. No murmurs, gallops, or rubs. Abdomen: Obese. Extremities: Revealed 2+ edema. Diagnostic Data: As stated earlier. His EKG showed electronic ventricular pacemaker rhythm. Initia l potassium was 2.8. Troponin was 0.05. Impression And Plan: 1.Acute on chronic systolic congestive heart failure exacerbation. 2.Chronic atrial fibrillation. 3.Morbid obesity. 4.Hypothyroidism. 5.Gastroesophageal reflux disease. 6.Neuropathy. 7.Hypokalemia that needs to be corrected. I think we need to treat Mr. West with IV Lasix, contin ue his home medications, supplement potassium, increase his Entresto to 49/51 with the tra nsplangera service. CARY/MAYRA Voice ID: [id number] Report ID: [id number]
== END 2021-02-27 14:25 | disposition home or self-care (01) | DRG 291 ==
LOC: ER 21:10 → ERHOLD 23:29 → 4TH 02-26 01:02
PROVIDERS: ADMIT Family Medicine; ATTEND Family Medicine
DX: I13.0 Hypertensive heart and chronic kidney disease with heart failure and stage 1 through stage 4 chronic kidney disease, or unspecified chronic kidney disease (principal); I50.23 Acute on chronic systolic (congestive) heart failure; N17.9 Acute kidney failure, unspecified; E87.1 Hypo-osmolality and hyponatremia; Z68.42 Body mass index [BMI] 45.0-49.9, adult; I48.20 Chronic atrial fibrillation, unspecified; E66.01 Morbid (severe) obesity due to excess calories; N18.30 Chronic kidney disease, stage 3 unspecified; E03.9 Hypothyroidism, unspecified; E87.6 Hypokalemia; E78.5 Hyperlipidemia, unspecified; G62.9 Polyneuropathy, unspecified; K21.9 Gastro-esophageal reflux disease without esophagitis; N28.9 Disorder of kidney and ureter, unspecified; G89.29 Other chronic pain; Z95.810 Presence of automatic (implantable) cardiac defibrillator; Z79.01 Long term (current) use of anticoagulants; Z79.82 Long term (current) use of aspirin; Z79.890 Hormone replacement therapy; Z79.899 Other long term (current) drug therapy; Z20.822 Contact with and (suspected) exposure to COVID-19
CPT/HCPCS: 36415; 71045; 71046; 80048; 80053; 80076; 83735; 83880; 84132; 84484; 85025; 85610; 93005; 96374; 96375; 99285; J1940; J2270; J2405; J3010; J3475; U0003

== ENCOUNTER 2021-06-29 18:27 | Emergency (ER) | payer OTHER ==
[2021-06-29 19:30] LABS: Protime INR 1.51
[2021-06-29 19:32] LABS: Absolute Lymphocytes (CBC) 1.2 K/uL (0.7-4.9); Basophils % 0.4 % (0-1.3); Hematocrit 28.1 % (39.6-49.0); Lymphocytes % 16.1 % (15.3-44.8); MPV 7.8 fL (7.6-11.3); RBC Red Blood Cell Count 3.09 M/uL (4.33-5.43)
[2021-06-29] MEDS ORDERED: ONDANSETRON 4 MG/2 ML VIAL ONE ×3 (19:34→23:10)
[2021-06-29] MEDS ORDERED: MORPHINE 4 MG/ML SYR ONE (19:34)
[2021-06-29 19:43] LABS: Albumin 3.4 g/dL (3.4-5.0); Bilirubin Direct 0.3 mg/dL (0-0.2); Bilirubin Total 0.8 mg/dL (0.2-1.0); Potassium 3.6 mmol/L (3.5-5.1); Protein, Total 6.5 g/dL (6.4-8.2)
[2021-06-29 19:57] LABS: White Blood Cell Scan OK (OK)
[2021-06-29 19:58] LABS: Anisocytosis 2+; Blood Morphology Comment NOTED (NOT SEEN); Platelet Estimate ADEQ
--- NOTE | 2021-06-29 20:02 | RAD REPORT ---
EXAM DESCRIPTION: US - Abdomen Exam Limited - 06/29/2021 7:26 pm CLINICAL HISTORY: ABD PAIN COMPARISON: ABDOMINAL EXAM LIMITED dated 10/21/2007 FINDINGS: No gallstones, sludge or other abnormalities within the gallbladder lumen. There is no wal l thickening or pericholecystic fluid. No common duct stone or biliary tree dilatation identified. IMPRESSION: Normal gallbladder and biliary tree ultrasound.
[2021-06-29] MEDS ORDERED: FENTANYL CITR 100 MCG/2 ML ONE (20:29)
--- NOTE | 2021-06-29 20:37 | RAD REPORT ---
EXAM DESCRIPTION: CT - Angio Aorta For Dissection - 06/29/2021 8:17 pm CLINICAL HISTORY: abdominal painchest pain, abdominal pain, hypertension COMPARISON: CT dissection October 2007, two view chest February 2021 TECHNIQUE: Dynamically enhanced 3 mm thick images of the chest, abdomen, and upper pelvis were obtai kerry during administration of approximately 150mL Isovue 370 IV contrast. Sagittal and coronal reconst ruction images were generated using MIP and reviewed. Exam utilizes a protocol to evaluate entire cou rse of the aorta. All CT scans are performed using dose optimization technique as appropriate and may include automated exposure control or mA/KV adjustment according to patient size. FINDINGS: Aorta is normal in diameter with no dissection or other acute aortic findings. Reconstruct ion images show no significant findings. Aortic arch is 3 vessel configuration with no origins stenos es. Visualized portions of the subclavian arteries are unremarkable. Pulmonary arteries are normal as well. A 14 millimeter long tubular metallic density is present left lower lobe believed be within a segmental pulmonary artery branch. This may be from a prior intervent ional procedure. This was not present in 2007. This is not of acute significance. Pacemaker leads are in place. Cardiac silhouette is enlarged without pericardial effusion. No mass or infiltrate in the lung parenchyma. Posterior left base atelectasis changes are present. No pleural thickening, pleural effusion or pneumothorax. Small nonspecific mediastinal and hilar lymph nodes are present. No bulky lymphadenopathy. No chest w all mass or abnormal axillary lymphadenopathy. Celiac, SMA and renal arteries show no suspicious findings. Solid abdominal viscera and bowel show no significant findings. No mass or abnormal lymphadenopathy. No free air, free fluid or inflammatory stranding. No urinary bladder abnormality. IMPRESSION: Negative CT scan of the aorta for acute or significant finding. The remainder the chest, abdomen and pelvis, as detailed above, without acute or emergent finding. No other significant findings on chest, abdomen and upper pelvis examination.
[2021-06-29] MEDS ORDERED: HYDROMORPHONE HCL 2 MG/ML inj ONE (21:25)
[2021-06-29] MEDS ORDERED: LIDOCAINE VISCOUS 2% SOLN 15 ML UDC ONE (21:55)
[2021-06-29] MEDS ORDERED: PANTOPRAZOLE 40 MG INJ ONE (21:55)
[2021-06-29] MEDS ORDERED: MAGNES/ALUMIN/SIMET 30ML UCUP ONE (21:55)
--- NOTE | 2021-06-29 23:59 | ER ---
Nurse's Notes [facility] Name: Siva West Age: 51 yrs Sex: Male : 1970 Arrival Date: 06/29/2021 Time: 18:29 Bed 8 Private MD: Diagnosis: Abdominal pain, unspecified;Anemia, unspecified Presentation: 06/29 18:38 Chief complaint: Patient states: RUQ abdominal pain x 3 days. Coronavirus screen: kg Vaccine status: Patient reports being unvaccinated. Ebola Screen: Patient negative for fever greater than or equal to 101.5 degrees Fahrenheit, and additional compatible Ebola Virus Disease symptoms Patient denies exposure to infectious person. Patient denies travel to an Ebola-affected area in the 21 days before illness onset. Initial Sepsis Screen: Does the patient meet any 2 criteria? No. Patient's initial sepsis screen is negative. Does the patient have a suspected source of infection? No. Patient's initial sepsis screen is negative. Risk Assessment: Do you want to hurt yourself or someone else? Patient reports no desire to harm self or others. Onset of symptoms was June 27, 2021. 18:38 Method Of Arrival: Wheelchair kg 18:38 Acuity: EFRAIN 3 kg 06/30 00:41 Note Report given to EMS. Pt transported with pt's own Dobutamine pump. wg 01:45 Note Initial attempt to call report to [facility] was unsuccessful as the nursing staff was wg assessing where the patient would end up with the dobutamine pump and would call back. At 0130 I received a call from QUIRINO Herrera and gave report along with my contact number if she had any additional questions. Triage Assessment: 06/29 18:40 General: Appears uncomfortable, Behavior is cooperative, restless. Pain: Complains of kg pain in right upper quadrant Pain currently is 10 out of 10 on a pain scale. at worst was 10 out of 10 on a pain scale. level that patient reports is acceptable is 3 out of 10 on a pain scale. Quality of pain is described as sharp, shooting, stabbing, squeezing. GI: Reports upper abdominal pain, intolerance of food, nausea. Historical: - Allergies: 18:40 No Known Allergies; kg - Home Meds: 18:40 Cymbalta 20 mg oral cpDR 1 cap 2 times per day [Active]; hydromorphone 4 mg Oral tab kg every 4-6 hours [Active]; Movantik 12.5 mg oral tab 1 tab once daily [Active]; Nitrostat 0.4 mg SL subl 1 tab every 5 minutes [Active]; senna 8.6 mg oral tab once daily [Active]; amiodarone 400 mg Oral tab 1 tab once daily [Active]; Bumex 2 mg Oral tab 1 tab once daily [Active]; K-Dur 20 mEq Oral TbTQ 1 tab 2 times per day [Active]; pregabalin 50 mg Oral cap 1 cap twice a day [Active]; aspirin 81 mg Oral chew 1 tab once daily [Active]; atorvastatin 40 mg Oral tab 1 tab once daily [Active]; Eliquis 5 mg oral tab 1 tab 2 times per day [Active]; levothyroxine 75 mcg cap 1 cap once daily [Active]; magnesium oxide 400 mg magnesium Oral tab 400 mg twice a day [Active]; Zofran 4 mg oral tab 1 tab 4 times per day [Active]; pantoprazole 40 mg Oral TbEC 1 tab once daily [Active]; zinc sulfate 50 mg zinc (220 mg) Oral tab daily [Active]; - PMHx: 18:40 Atrial Fib; CHF; Hypertension; Thyroid; kg - PSHx: 18:40 Orlando Knee sx; Leg sx; kg - Immunization history:: Adult Immunizations not up to date, Client reports having NOT received the Covid vaccine. - Social history:: Smoking status: Patient denies any tobacco usage or history of. Screenin:47 Abuse screen: Denies threats or abuse. Denies injuries from another. Nutritional kg screening: No deficits noted. Tuberculosis screening: No symptoms or risk factors identified. Fall Risk No fall in past 12 months (0 pts). No secondary diagnosis (0 pts). IV access (20 points). Ambulatory Aid- None/Bed Rest/Nurse Assist (0 pts). Gait- Weak (10 pts.). Mental Status- Oriented to own ability (0 pts). Total Higgins Fall Scale indicates Low Risk Score (25-44 pts). Fall prevention measures have been instituted. Side Rails Up X 2 Placed close to Nursing Station Frequent Obs/Assesments occuring Family Present and informed to notify staff if they need to leave bedside As available Patient and Family Educated on Fall Prevention Program and strategies. Assessment: 20:54 Reassessment: No changes from previously documented assessment. Patient and/or family ms4 updated on plan of care and expected duration. Pain level reassessed. Patient is alert, oriented x 3, equal unlabored respirations, skin warm/dry/pink. General: Appears uncomfortable, Behavior is restless. Pain: Complains of pain in abdomen and right upper quadrant. Neuro: No deficits noted. Cardiovascular: No deficits noted. Respiratory: No deficits noted. GI: Bowel sounds present X 4 quads. Abdomen is tender to palpation in right upper quadrant. GI: Reports nausea, vomiting. : No deficits noted. 22:34 Pain: Complains of pain in abdomen and right upper quadrant Pain currently is 10 out of wg 10 on a pain scale. Noted to be agitated, guarding, KAYE Mcnally aware.. Vital Signs: 18:38 BP 100 / 68; Pulse 94; Resp 20; Temp 97.2(TE); Pulse Ox 100% on R/A; Weight 166.01 kg kg (R); Height 6 ft. 3 in. (190.50 cm); Pain 10/10; 20:24 BP 99 / 66; Pulse 95; Resp 18; Temp 98.4(O); Pulse Ox 100% on R/A; ms4 21:08 BP 109 / 71; Pulse 90; Resp 18; Pulse Ox 100% on R/A; ms4 22:10 BP 96 / 59; Pulse 90; Resp 18; Pulse Ox 100% on R/A; Pain 8/10; ms4 23:30 BP 108 / 66; Pulse 90; Resp 18; Pulse Ox 100% on R/A; Pain 8/10; wg 06/30 00:20 BP 122 / 68; Pulse 88; Resp 18; Pulse Ox 98% on R/A; Pain 5/10; wg 06/29 18:38 Body Mass Index 45.75 (166.01 kg, 190.50 cm) kg ED Course: 06/29 18:29 Patient arrived in ED. mr 18:40 Triage completed. kg 18:50 Arm band placed on Patient placed in an exam room, on a stretcher. 1 18:54 Herrera Mcnally PA is [facility]. [facility] 18:54 Sue Neumann MD is Attending Physician. jmm 19:26 US Abdomen Limited In Process Unspecified. EDMS 19:27 Basic Metabolic Panel Sent. wg 19:27 CBC with Diff Sent. wg 19:27 Hepatic Function Sent. wg 19:27 Lipase Sent. wg 19:27 Troponin (emerg Dept Use Only) Sent. wg 19:28 PT-INR Sent. wg 20:17 CT Aorta for Dissection In Process Unspecified. EDMS 21:04 Attending Physician role handed off by Sue Neumann MD rn 21:04 Christopher Cardona MD is Attending Physician. rn 21:41 initiated a transfer with Patricia Mak from [facility]. mw2 21:42 waiting for the Covid to be resulted. mw2 22:34 Alexis Helton RN is Primary Nurse. wg 23:13 reinitiated a transfer with Patricia Mak from [facility]. mw2 23:41 Type And Screen Sent. wg 23:43 connected Herrera RESTREPO with the doctor from [facility]. mw2 23:56 administrative approval given by Patricia Mak/ patient has been accepted to [address] bed 1251/ Dr. Kay accepted the patient in transfer/ report to be called to [phone]. Administered Medications: 19:18 Drug: morphine 4 mg Route: IVP; Infused Over: 2 mins; Site: PICC; wg 19:18 Drug: Zofran (Ondansetron) 4 mg Route: IVP; Infused Over: 2 mins; Site: PICC; wg 20:09 Drug: fentaNYL (PF) 50 mcg Route: IVP; Infused Over: 2 mins; Site: PICC; wg 20:44 Drug: Zofran (Ondansetron) 4 mg Route: IVP; Site: Port-a-cath; ms4 21:07 Drug: Dilaudid (HYDROmorphone) 0.5 mg Route: IVP; Site: PICC; ms4 21:38 Drug: GI Cocktail without - (Maalox Suspension 30 ml, Lidocaine Liquid 2 % 15 ms4 ml) Route: PO; 21:38 Drug: ProTONIX (pantoprazole) 40 mg Route: IVP; Site: PICC; ms4 06/30 00:20 Drug: Dilaudid (HYDROmorphone) 0.5 mg Route: IVP; Infused Over: 2 mins; Site: PICC; patti Outcome: 06/29 23:59 ER care complete, transfer ordered by . livia 06/30 00:39 Transferred by ground EMS to [facility], Transfer form completed. wg X-rays sent w/ patient. 00:42 Patient left the ED. wg Signatures: Dispatcher [employer] EDMS Herrera Mcnally PA PA jmm Rivera, Mary mr Christopher Cardona MD MD rn Westbrook, MyKena 2 Hilda Tucker RN RN ll1 Lady Hannon RN RN kg Stroud, Mikaela, RN RN ms4 Alexis Helton RN wg Corrections: (The following items were deleted from the chart) 06/29 20:55 20:23 Reassessment: ms4 ms4 06/30 00:13 06/29 23:56 administrative approval given by Patricia Mak/ patient has been accepted mw2 to [facility] bed 1018/ Dr. Kay accepted the patient in transfer/ report to be called to [phone] [facility]
--- NOTE | 2021-06-29 23:59 | EDPHYS ---
Physician Documentation [facility] Name: Siva West Age: 51 yrs Sex: Male : 1970 Arrival Date: 06/29/2021 Time: 18:29 Bed 8 Private MD: ED Physician Christopher Cardona HPI: 06/29 19:02 This 51 yrs old Male presents to ER via Wheelchair with complaints of jmm Abdominal Pain. 19:02 Onset: The symptoms/episode began/occurred gradually, 3 day(s) ago. The symptoms jmm radiate to right back. Associated signs and symptoms: Pertinent positives: nausea. The symptoms are described as achy, sharp. Modifying factors: The symptoms are alleviated by nothing, the symptoms are aggravated by food. The patient has not experienced similar symptoms in the past. Historical: - Allergies: 18:40 No Known Allergies; kg - Home Meds: 18:40 Cymbalta 20 mg oral cpDR 1 cap 2 times per day [Active]; hydromorphone 4 mg Oral tab kg every 4-6 hours [Active]; Movantik 12.5 mg oral tab 1 tab once daily [Active]; Nitrostat 0.4 mg SL subl 1 tab every 5 minutes [Active]; senna 8.6 mg oral tab once daily [Active]; amiodarone 400 mg Oral tab 1 tab once daily [Active]; Bumex 2 mg Oral tab 1 tab once daily [Active]; K-Dur 20 mEq Oral TbTQ 1 tab 2 times per day [Active]; pregabalin 50 mg Oral cap 1 cap twice a day [Active]; aspirin 81 mg Oral chew 1 tab once daily [Active]; atorvastatin 40 mg Oral tab 1 tab once daily [Active]; Eliquis 5 mg oral tab 1 tab 2 times per day [Active]; levothyroxine 75 mcg cap 1 cap once daily [Active]; magnesium oxide 400 mg magnesium Oral tab 400 mg twice a day [Active]; Zofran 4 mg oral tab 1 tab 4 times per day [Active]; pantoprazole 40 mg Oral TbEC 1 tab once daily [Active]; zinc sulfate 50 mg zinc (220 mg) Oral tab daily [Active]; - PMHx: 18:40 Atrial Fib; CHF; Hypertension; Thyroid; kg - PSHx: 18:40 Orlando Knee sx; Leg sx; kg - Immunization history:: Adult Immunizations not up to date, Client reports having NOT received the Covid vaccine. - Social history:: Smoking status: Patient denies any tobacco usage or history of. ROS: 19:02 Constitutional: Negative for fever, chills, and weight loss, Cardiovascular: Negative jmm for chest pain, palpitations, and edema, Respiratory: Negative for shortness of breath, cough, wheezing, and pleuritic chest pain. 19:02 Abdomen/GI: Positive for abdominal pain. 19:02 All other systems are negative. Exam: 19:02 Head/Face: atraumatic. Eyes: EOMI, no conjunctival erythema appreciated ENT: Moist jmm Mucus Membranes Neck: Trachea midline, Supple Chest/axilla: Normal chest wall appearance and motion. Cardiovascular: Regular rate and rhythm. No edema appreciated Respiratory: Normal respirations, no respiratory distress appreciated 19:02 Back: Normal ROM Skin: General appearance color normal MS/ Extremity: Moves all extremities, no obvious deformities appreciated, no edema noted to the lower extremities Neuro: Awake and alert, normal gait Psych: Behavior is normal, Mood is normal, Patient is cooperative and pleasant 19:02 Constitutional: The patient appears alert, awake, uncomfortable. 19:02 Abdomen/GI: Inspection: abdomen appears normal, Bowel sounds: normal, Palpation: soft, moderate abdominal tenderness, in the right upper quadrant. Vital Signs: 18:38 BP 100 / 68; Pulse 94; Resp 20; Temp 97.2(TE); Pulse Ox 100% on R/A; Weight 166.01 kg kg (R); Height 6 ft. 3 in. (190.50 cm); Pain 10/10; 20:24 BP 99 / 66; Pulse 95; Resp 18; Temp 98.4(O); Pulse Ox 100% on R/A; ms4 21:08 BP 109 / 71; Pulse 90; Resp 18; Pulse Ox 100% on R/A; ms4 22:10 BP 96 / 59; Pulse 90; Resp 18; Pulse Ox 100% on R/A; Pain 8/10; ms4 23:30 BP 108 / 66; Pulse 90; Resp 18; Pulse Ox 100% on R/A; Pain 8/10; wg 06/30 00:20 BP 122 / 68; Pulse 88; Resp 18; Pulse Ox 98% on R/A; Pain 5/10; wg 06/29 18:38 Body Mass Index 45.75 (166.01 kg, 190.50 cm) kg MDM: 06/29 19:01 Patient medically screened. [facility] 23:57 Data reviewed: vital signs, nurses notes. Counseling: I had a detailed discussion with livia the patient and/or guardian regarding: the historical points, exam findings, and any diagnostic results supporting the discharge/admit diagnosis, lab results, radiology results. ED course: Patient continues to have pain. CTA and ultrasound were normal. Guaiac was grossly negative but did show some trace blood. I discussed the patient with internal status [facility] in the [facility] whom accepted the patient for further evaluation.. 06/29 18:55 Order name: Basic Metabolic Panel; Complete Time: 19:45 [facility] 06/29 18:55 Order name: CBC with Diff; Complete Time: 20:00 [facility] 06/29 18:55 Order name: Hepatic Function; Complete Time: 19:45 [facility] 06/29 18:55 Order name: Lipase; Complete Time: 19:45 [facility] 06/29 19:17 Order name: Troponin (emerg Dept Use Only) [facility] 06/29 19:17 Order name: PT-INR [facility] 06/29 19:18 Order name: Troponin (Emerg Dept Use Only); Complete Time: 19:47 [facility] 06/29 19:18 Order name: Protime (+INR); Complete Time: 19:32 [facility] 06/29 19:33 Order name: CBC Smear Scan; Complete Time: 20:00 [facility] 06/29 21:08 Order name: CREATININE WHOLE BLOOD; Complete Time: 21:09 [facility] 06/29 23:10 Order name: SARS-COV-2 RT PCR; Complete Time: 23:12 [facility] 06/29 23:12 Order name: Type And Screen; Complete Time: 00:34 [facility] 06/30 00:30 Order name: ABO/RH no charge; Complete Time: 00:34 [facility] 06/29 18:55 Order name: IV Saline Lock; Complete Time: 19:26 [facility] 06/29 18:55 Order name: Labs collected and sent; Complete Time: 19:27 [facility] 06/29 18:55 Order name: US Abdomen Limited; Complete Time: 20:03 [facility] 06/29 19:24 Order name: CT Aorta for Dissection; Complete Time: 20:54 [facility] 06/29 21:15 Order name: Gown patient; Complete Time: 21:28 [facility] Administered Medications: 19:18 Drug: morphine 4 mg Route: IVP; Infused Over: 2 mins; Site: PICC; wg 19:18 Drug: Zofran (Ondansetron) 4 mg Route: IVP; Infused Over: 2 mins; Site: PICC; wg 20:09 Drug: fentaNYL (PF) 50 mcg Route: IVP; Infused Over: 2 mins; Site: PICC; wg 20:44 Drug: Zofran (Ondansetron) 4 mg Route: IVP; Site: Port-a-cath; ms4 21:07 Drug: Dilaudid (HYDROmorphone) 0.5 mg Route: IVP; Site: PICC; ms4 21:38 Drug: GI Cocktail without - (Maalox Suspension 30 ml, Lidocaine Liquid 2 % 15 ms4 ml) Route: PO; 21:38 Drug: ProTONIX (pantoprazole) 40 mg Route: IVP; Site: PICC; ms4 06/30 00:20 Drug: Dilaudid (HYDROmorphone) 0.5 mg Route: IVP; Infused Over: 2 mins; Site: PICC; Disposition: 06/29 21:48 Co-signature as Attending Physician, Christopher Cardona MD [facility] refuses rn to let us speak/consult with doctor until all results including COVID test result has returned. . Disposition Summary: 06/29/21 23:59 Transfer Ordered Transfer Location: [facility] jm Reason: Higher level of care jmm Condition: Stable jmm Problem: new jmm Symptoms: are unchanged jmm Accepting Physician: Internal Medicine - Dr. Kay(06/30/21 00:42) wg Diagnosis - Abdominal pain, unspecified jmm - Anemia, unspecified jmm Forms: - Medication Reconciliation Form jmm - SBAR form jmm Signatures: Dispatcher [employer] EDHerrera Orozco PA PA jmm Christopher Cardona MD MD rn Graham, Kristen RN RN kg Flora Garcia RN RN ms4 Gamba, Alexis, RN wg Corrections: (The following items were deleted from the chart) 21:43 21:31 CORONAVIRUS+MR.LAB.BRZ ordered. EDMS EDMS 23:59 23:59 Internal Medicine livia bhakta 06/30 00:42 06/29 23:59 Internal Medicine - Dr. Rahul bhakta wg
[2021-06-30] MEDS ORDERED: HYDROMORPHONE HCL 0.5 MG/0.5 ML INJ ONE (00:43)
[2021-06-30 00:50] VITALS: TEMP 98.4
[2021-06-30 00:55] VITALS: BP 122/68; O2SAT 98
== END 2021-06-30 00:42 | disposition short-term general hospital (02) ==
LOC: ER 18:27
DX: D64.9 Anemia, unspecified (principal); I10 Essential (primary) hypertension; I48.91 Unspecified atrial fibrillation; I50.9 Heart failure, unspecified; Z79.82 Long term (current) use of aspirin; Z20.822 Contact with and (suspected) exposure to COVID-19
CPT/HCPCS: 85025; 80048; 36415; 86900; 86850; 85610; 82565; 86901; 80076; 84484; 83690; 71275; 74175; 76705; 99285; U0003; Q9967; C9113; J1170 ×2; J3010; J2405 ×3

== ENCOUNTER 2022-09-26 12:35 | Emergency (ER) | payer OTHER ==
--- OUTSIDE RECORDS SUMMARY | 2022-09-26 13:29 | XMS REPORT | Continuity of Care Document ---
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 Med ical 49-51 mg 00 :00 (two) Center Tab times daily. ciprofloxac 2021- No 4[drp] Q.5D Place [address] [facility] in-dexameth 01-29 drops into [facility] asone 00:00: 00:00 the left Medical (CIPRODEX) 00 :00 ear 2 Center 0.3-0.1 % (two) otic times suspension daily. empaglifloz No 25mg QD Take [address] [facility] in 01-27 tablet (25 [facility] (JARDIANCE) 00:00: 00:00 mg total) Medical 25 mg 00 :00 by mouth Center tablet daily. amiodarone No 100mg QD Take 0.[address] (PACERONE) 12-25 tablets [facility] 200 MG 00:00: 00:00 (100 mg Medical tablet 00 :00 total) by Center mouth daily. traMADoL Chronic 100mg Take [address] [facility] 100 mg Tab 12-25 combined mg by Rosanne ferreira 00:00: 00:00 systolic mouth Medical 00 :00 and every 8 Center diastolic (eight) CHF hours as (congestive needed. heart Max Daily failure) Amount: (HCC) 300 mg warfarin 2021- No 6mg QD Take [address] [facility] (COUMADIN, 12-17 tablet (6 Rosanne es JANTOVEN) 6 00:00: 00:00 mg total) Medical MG tablet 00 :00 by mouth Center every evening. spironolact 2021- No 50mg QD Take [address] [facility] one 12-17- tablet (50 [facility] (ALDACTONE) 00:00: 00:00 mg total) Medical 50 MG 00 :00 by mouth Center tablet daily. HYDROcodone 2021- No Chronic 1{tbl} Take [address] [facility] -acetaminop -17 -19 combined tablet by [facility] (NORCO 00:00: 23:59 systolic mouth M edical 10-325) 00 :00 and every 8 Center 10-325 mg diastolic (eight) per tablet CHF hours as (congestive needed for heart Pain for failure) up to 30 (HCC) days. Max Daily Amount: 3 tablets empaglifloz 2021- No 25mg QD Take [address] [facility] in 11-14 04-26 tablet (25 [facility] (JARDIANCE) 00:00: 00:00 mg total) Medical 25 mg 00 :00 by mouth Center tablet daily. traMADoL 2021- No Chronic 50mg Take [address] [facility] (ULTRAM) 50 11-09 03-08 combined tablet (50 [facility] mg tablet 00:00: 23:59 systolic mg total) Medical 00 :00 and by mouth Center diastolic every 6 CHF (six) (congestive hours as heart needed for failure) Pain for (HCC) up to 30 days. Max Daily Amount: 200 mg warfarin 2021- No 1mg QD Take [address] [facility] (COUMADIN, 11-0717 tablet (1 Rosanne es JANTOVEN) 1 00:00: 00:00 mg total) Medical MG tablet 00 :00 by mouth Center daily. carvediloL 2021- No 3.125mg Take [address] (COREG) 11-03 tablet [facility] 3.125 MG 00:00: 00:00 (3.125 mg Med ical tablet 00 :00 total) by Center mouth 2 (two) times daily with breakfast and dinner. bumetanide 2021- No 2mg Q.5D Take [address] [facility] (BUMEX) 2 10-30- tablet (2 [facility] MG tablet 00:00: 00:00 mg total) Me dical 00 :00 by mouth 2 Center (two) times daily. carvediloL 2021- No 3.125mg Take [address] (COREG) 10-30 tablet [facility] 3.125 MG 00:00: 00:00 (3.125 mg Med ical tablet 00 :00 total) by Center mouth 2 (two) times daily with breakfast and dinner. sacubitriL- 2021- No 1{tbl} Q.5D Take [address] valsartan 1-20 04-28 tablet by Josh varma (ENTRESTO) 00:00: 00:00 mouth 2 Med ical 24-26 mg 00 :00 (two) Center Tab times daily. HYDROcodone 2021- No Chronic 1{tbl} Take [address] [facility] -acetaminop 10-23 02-17 combined tablet by Nitin hen (NORCO 00:00: 00:00 systolic mouth M edical 10-325) 00 :00 and every 8 Center 10-325 mg diastolic (eight) per tablet CHF hours as (congestive needed for heart Pain for failure) up to 30 (HCC) days. Max Daily Amount: 3 tablets spironolact 2021- No 50mg QD Take [address] [facility] one 10-14 03-16 tablet (50 [facility] (ALDACTONE) 00:00: 00:00 mg total) Medical 50 MG 00 :00 by mouth Center tablet daily. naloxegoL 2021- No 25mg QD Take 1 [facility] mg Oral 10-1320 tablet (25 Stephanie kes Tab tablet 00:00: 00:00 mg total) M edical 00 :00 by mouth Center daily for 30 days. empaglifloz 2021- No 25mg QD Take [address] [facility] in 10-11 tablet (25 [facility] (JARDIANCE) 00:00: 00:00 mg total) Medical 25 mg 00 :00 by mouth Center tablet daily. aspirin 81 2021- No 81mg QD Take [address] [facility] MG chewable 10-10 tablet (81 [facility] tablet 00:00: 00:00 mg total) Medic al 00 :00 by mouth Center daily. tamsulosin 2021- No .4mg QD Take [address] [facility] (FLOMAX) 10-10 capsule [facility] 0.4 mg Cap 00:00: 00:00 (0.4 mg Med ical 24 hr 00 :00 total) by Center capsule mouth daily for 364 days. zinc 2021- No 220mg QD Take [address] [facility] sulfate 10-10 capsule [facility] (ZINCATE) 00:00: 00:00 (220 mg Medi mckenzie 50 mg zinc 00 :00 total) by Cent er (220 mg) mouth capsule daily. pregabalin 2021- No 75mg Q.5D Take [address] [facility] (LYRICA) 75 10-10 capsule [facility] MG capsule 00:00: 00:00 (75 mg Medi mckenzie 00 :00 total) by Center mouth 2 (two) times daily. Max Daily Amount: 150 mg amiodarone 2021- No 200mg QD Take [address] [facility] (PACERONE) 10-1024 tablet [facility] 200 MG 00:00: 00:00 (200 mg Medical tablet 00 :00 total) by Center mouth daily. warfarin 2021- No 6mg QD Take [address] [facility] (COUMADIN, 10-1016 tablet (6 Rosanne es JANTOVEN) 6 00:00: 00:00 mg total) Medical MG tablet 00 :00 by mouth Center every evening. QUEtiapine 2021- No 25mg QD Take [address] [facility] (SEROquel) 10-10 tablet (25 Stephanie kes 25 MG 00:00: 23:59 mg total) Medica l tablet 00 :00 by mouth Center nightly for 30 days. HYDROcodone 2021- No 2{tbl} Take [address] -acetaminop 10-10 tablets by Cyndie webber (NORCO 00:00: 23:59 mouth Medic al 10-325) 00 :00 every 4 Center 10-325 mg (four) per tablet hours as needed for up to 10 days. Max Daily Amount: 12 tablets methocarbam 2021- No 500mg Take [address] oL 10-10 tablet [facility] (ROBAXIN) 00:00: 23:59 (500 mg Medi mckenzie 500 MG 00 :00 total) by Center tablet mouth every 8 (eight) hours for 10 days. traMADoL 2021- No 50mg Take [address] [facility] (ULTRAM) 50 10-10 tablet (50 [facility] mg tablet 00:00: 23:59 mg total) Me dical 00 :00 by mouth Center every 6 (six) hours as needed for up to 10 days. Max Daily Amount: 200 mg spironolact 2021- No 25mg QD Take [address] [facility] one 10-10 tablet (25 [facility] (ALDACTONE) 00:00: 00:00 mg total) Medical 25 MG 00 :00 by mouth Center tablet daily. aspirin 81 81mg QD Take [address] [facility] MG EC 10-09 by mouth [facility] tablet 11:50: 00:00 daily. Medical 44 :00 Center atorvastati No 20mg QD Take [address] [facility] n (LIPITOR) 10-09 tablet (20 [facility] 20 MG 00:00: 00:00 mg total) Medica l tablet 00 :00 by mouth Center nightly. ferrous 325mg QD Take [address] [facility] sulfate 325 10-09 tablet [facility] (65 FE) MG 00:00: 00:00 (325 mg Med ical tablet 00 :00 total) by Center mouth daily. levothyroxi 75ug Take [address] [facility] ne 10-09 tablet (75 [facility] (SYNTHROID, 00:00: 00:00 mcg total) Medical LEVOTHROID) 00 :00 by mouth Cent er 75 MCG Every tablet morning on an empty stomach. potassium 40meq Q.5D Take [address] [facility] chloride SA 10-09 tablets Luke s (K-DUR,KLOR 00:00: 00:00 (40 mEq Me dical -CON-M) 20 00 :00 total) by Cent er MEQ tablet mouth 2 (two) times daily. bumetanide 2mg Q.[id number] Take [address] [facility] (BUMEX) 2 10-09 [id number] tablet (2 [facility] MG tablet 00:00: 00:00 3D mg total) Me dical 00 :00 by mouth 3 Center (three) times daily. senna-docus 2{tbl} Q.5D Take [address] ate 10-09 tablets by [facility] (SENOKOT S) 00:00: 00:00 mouth 2 Me dical 8.6-50 mg 00 :00 (two) Center per tablet times daily. atorvastati 2021-1 2022- No TAKE [address] [facility] n (LIPITOR) 11-16 TABLET(20 Stephanie kes 20 MG 00:00: 00:00 MG) BY Medical tablet 00 :00 MOUTH Center EVERY NIGHT levothyroxi 2020-10- No TAKE [address] [facility] ne 11-16 TABLET(75 [facility] (SYNTHROID, 00:00: 00:00 MCG) BY Ia dical LEVOTHROID) 00 :00 MOUTH Center 75 MCG EVERY tablet MORNING ON AN EMPTY STOMACH magnesium 2020-10- No TAKE 1 [facility] oxide 11-01 TABLET(400 [facility] (MAG-OX) 00:00: 00:00 MG) BY Medica l 400 mg 00 :00 MOUTH Center (241.3 mg TWICE magnesium) DAILY tablet spironolact 2020-10- No Chronic 25mg Take [address] [facility] one 10-18 systolic tablet (25 [facility] (ALDACTONE) 00:00: 00:00 congestive mg total) Medical 25 MG 00 :00 heart by mouth 2 Center tablet failure (two) (HCC) times daily. amiodarone 2020-10- No Chronic 400mg Q.5D Take [address] [facility] (PACERONE) 10-18 systolic tablet Stephanie kes 400 MG 00:00: 00:00 congestive (400 mg M edical tablet 00 :00 heart total) by Center failure mouth 2 ([facility]) (two) times daily for 120 days. potassium 2020-10- No Chronic 80meq Q.[id number] Take [address] [facility] chloride SA 10-18 systolic [id number] tablets [facility] (K-DUR,KLOR 00:00: 00:00 congestive 3D (80 mEq Medical -CON-M) 20 00 :00 heart total) by [facility] ter MEQ tablet failure mouth 3 ([facility]) (three) times daily. ferrous 2020-10- No 325mg QD Take [address] [facility] sulfate 325 10-12 tablet [facility] (65 FE) MG 00:00: 00:00 (325 mg Med ical tablet 00 :00 total) by Center mouth daily for 30 days. DOBUTamine 2020-10- No 909.6ug Inject [facility] (DOBUTREX) 10-11 /min 909.6 [facility] 1,000 00:00: 00:00 mcg/min Medical mg/250 mL 00 :00 intravenou Cent er (4,000 sly mcg/mL) continuous infusion . torsemide 2020-10- No 100mg Take [address] [facility] (DEMADEX) 10-11 tablet [facility] 100 MG 00:00: 00:00 (100 mg Medical tablet 00 :00 total) by Center mouth 2 (two) times daily for 30 days. DULoxetine 2021- No 20mg Q.5D Take [address] [facility] (CYMBALTA) 06-26 capsule [facility] 20 MG 00:00: 00:00 (20 mg Medical capsule 00 :00 total) by Center mouth 2 (two) times daily. nitroglycer 2021- No Put [address] [facility] in 06-26 under [facility] (NITROSTAT) 00:00: 00:00 tongue Med ical 0.4 MG SL 00 :00 every 5min Cent er tablet as needed for chest pain.No more than 3 doses in 15min.Call 911 if pain unrelieved 5min after 1st dose. pantoprazol 2021- No 40mg QD Take [address] [facility] e 06-26 tablet (40 [facility] (PROTONIX) 00:00: 00:00 mg total) M edical 40 MG 00 :00 by mouth Center tablet daily. pregabalin 2021- No 50mg Q.5D Take [address] [facility] (LYRICA) 50 06-26 capsule Luke s MG capsule 00:00: 00:00 (50 mg Medi mckenzie 00 :00 total) by Center mouth 2 (two) times daily. Max Daily Amount: 100 mg ondansetron 2021- No 4mg Take [address] [facility] (Zofran 06-26 tablet (4 [facility] ODT) 4 MG 00:00: 00:00 mg total) Me dical disintegrat 00 :00 by mouth Cent er ing tablet every 8 (eight) hours as needed for Nausea May take up to 8 mg.. senna-docus 2021- No 1{tbl} Q.5D Take [address] ate 06-26 tablet by [facility] (SENOKOT S) 00:00: 00:00 mouth 2 Me dical 8.6-50 mg 00 :00 (two) Center per tablet times daily. zinc 2021- No 1{tbl} QD Take [address] [facility] sulfate 50 -26 10-06 tablet by Rosanne es mg zinc 00:00: 00:00 mouth Medical (220 mg) 00 :00 daily. Center Tab levothyroxi 2020- No 50ug QD Take 1 Met hodi ne 4-16 05-17 tablet (50 st (SYNTHROID) 00:00: 04:59 mcg total) Hospita 50 mcg 00 :00 by mouth l tablet daily for 30 days. aspirin Yes 81mg QD Take 81 mg Meth bruno (ECOTRIN) 4-[address] 81 MG 16:24: daily. Hospita enteric 50 l coated tablet pantoprazol Yes 40mg QD Take 40 mg Methodi e 4-[address] (PROTONIX) 16:24: daily. Hospi ta 40 MG EC 50 l tablet amIODarone Yes 200mg Q.5D Take 200 Me thodi (PACERONE) 4-[address] 200 MG 16:24: mouth 2 Hospita tablet 50 (two) l times a day. carvediloL Yes 3.125mg Q.5D Take 3.125 Methodi (COREG) 4-[address] 3.125 MG 16:24: mouth 2 Hospit a tablet 50 (two) l times a day with meals. rivaroxaban Yes 20mg QD Take 20 mg Methodi (XARELTO) 4-[address] 20 mg 16:24: daily. Hospita tablet 50 l albuterol Yes 2.5mg Q4H Take 2.5 Met hodi (ACCUNEB) 4-[address] 2.5 mg /3 16:24: nebulizati Ho spita mL (0.083 50 on every 4 l %) (four) nebulizer hours as solution needed for wheezing or shortness of breath. albuterol Yes 2{puff} Q4H Inhale 2 M ethodi (PROAIR 4-[address] HFA) 90 16:24: every 4 Hospita mcg/actuati 50 (four) l on inhaler hours as needed for wheezing or shortness of breath. ascorbic Yes 1{tbl} Take 1 Metho di acid 4-[address] (VITAMIN C 16:24: mouth Hospit a ORAL) 50 daily. l cholecalcif Yes 1{tbl} Take 1 Me thodi annamaria, 4-[address] vitamin D3, 16:24: mouth Hospi ta (VITAMIN D3 50 daily. l ORAL) ZINC ORAL Yes 1{tbl} Take 1 Meth bruno 4-[address] 16:24: mouth Hospita 50 daily. l digOXIN Yes 125ug QD Take 125 Metho di (LANOXIN) 4-[address] 125 mcg 16:24: mouth Hospita (0.125 mg) 50 daily. l tablet clopidogreL Yes 75mg QD Take 75 mg Methodi (PLAVIX) 75 4-[address] mg tablet 16:24: daily. Hospit a 50 l sacubitriL- Yes 1{tbl} Q.5D Take 1 Me thodi valsartan 4-[address] (Entresto) 16:24: mouth 2 Hosp antony 24-26 mg 50 (two) l tablet per times a tablet day. bacitracin 2020- No Q.5D Apply Metho di ointment 15 05-[address] tube 00:00: 04:59 2 (two) Hospita 00 :00 times a l day for 30 days. cyclobenzap 2020- No 10mg Q.[id number] Take 10 mg Methodi rine 12-31 [id number] mouth [address] (FLEXERIL) 14:54: 00:00 3D (three) Hos vikram 10 mg 14 :00 times a l tablet day as needed for muscle spasms. BUMETanide 2020- No 2mg Q.5D Take 2 mg M ethodi (BUMEX) 2 -30 -[address] MG tablet 07:41: 00:00 (two) Hospit a 08 :00 times a l day. spironolact 2020- No 25mg Q.5D Take 25 mg Methodi one 3-30 03-[address] (ALDACTONE) 07:41: 00:00 (two) Hosp antony 25 MG 08 :00 times a l tablet day. potassium Yes 20meq QD Take 2 Metho di chloride 3-[address] (MICRO-K) 00:00: (20 mEq Hospi ta 10 MEQ CR 00 total) by l capsule mouth daily. BUMETanide 2020- No 2mg Q.5D Take 1 Meth bruno (BUMEX) 2 12-31-30 tablet (2 st MG tablet 00:00: 04:59 mg total) Ho spita 00 :00 by mouth 2 l (two) times a day for 30 days. benzonatate 2020- No 100mg Q.99071009 Take 1 Methodi (TESSALON) 12-31- [id number] capsule st 100 MG 00:00: 04:59 3D (100 mg Hospita capsule 00 :00 total) by l mouth 3 (three) times a day as needed for cough for up to 30 days. methocarbam 2020- No 500mg Q.[id number] Take 1 Methodi oL 12-[id number] (ROBAXIN) 00:00: 04:59 3D (500 mg Hosp antony 500 MG 00 :00 total) by l tablet mouth 3 (three) times a day as needed for muscle spasms for up to 30 days. metOLazone 2020- No 5mg QD Take 1 Meth bruno (ZAROXOLYN) 12-31-30 tablet (5 st 5 MG tablet 00:00: 04:59 mg total) Hospita 00 :00 by mouth l daily for 30 days. simethicone 2020- No 80mg Q6H Chew 1 Met hodi (MYLICON) 12-31-30 tablet (80 st 80 MG 00:00: 04:59 mg total) Hospit a chewable 00 :00 every 6 l tablet (six) hours as needed for flatulence for up to 30 days. zinc 2020- No 50mg QD Take 1 Methodi sulfate 12-31-[address] (ZINCATE) 00:00: 04:59 (50 mg Hospi ta 220 mg (50 00 :00 total) by l mg mouth elemental daily for zinc) 30 days. capsule spironolact 2020- No 25mg Q.5D Take 1 Met hodi one 30 -30 tablet (25 st (ALDACTONE) 00:00: 04:59 mg total) Hospita 25 MG 00 :00 by mouth 2 l tablet (two) times a day for 30 days. digoxin 125 Yes [id number] 125ug Take 1 [facility] mcg tablet 2- 9103 tablet by ity of 00:00: mouth [place] 00 daily. Medical Branch metoprolol Yes [id number] 50mg Take 1 [facility] succinate 2- 9103 tablet by ity o f XL 50 mg 24 00:00: mouth [place] hr tablet 00 daily. Medical Branch HYDROcodone Yes 1{tbl} Take 1 Un eileen -acetaminop 2-02 tablet by ity of hen (NORCO) 22:38: mouth [place] 10-325 mg 07 every 6 Medical tablet (six) Branch hours as needed. bumetanide Yes [id number] 1mg Take 1 [facility] 1 mg tablet 2- 9103 tablet by ity of 00:00: mouth [place] 00 every Medical evening. Branch bumetanide Yes [id number] 2mg Take 1 [facility] 2 mg tablet 2- 9103 tablet by ity of 00:00: mouth [place] 00 every Medical morning. Branch magnesium Yes [id number] 27mg Take 1 [facility] gluconate 2- 9103 tablet by ity o f 27 mg [place] 00:00: mouth 3 [place] MAGNESIUM 00 (three) Medical tablet times Branch daily. triamcinolo Yes [id number] Apply to [facility] ne 2- 9103 area(s) 2 ity of acetonide 00:00: (two) [place] 0.1 % 00 times Medical ointment daily. Branch terbinafine Yes [id number] Apply to [facility] HCl 1 % 2 9103 area(s) 2 ity of cream 00:00: (two) [place] 00 times Medical daily. Branch codeine-gua 2017-10 Yes 10mL Take 10 mL Univers ifenesin 1-22 by mouth ity of 10-100 mg/5 00:00: every 6 [place] as mL solution 00 (six) Medical hours as Branch needed for Cough. spironolact Yes 25mg Take 1 Univ ers one 25 mg 4-06 tablet by ity o f tablet 00:00: mouth [place] 00 daily. Medical Branch aspirin 81 Yes 81mg Take 1 Unive rs mg chewable 7-08 tablet by ity of tablet 00:00: mouth [place] 00 daily. Medical Branch atorvastati Yes 40mg Take 1 Univ ers n (LIPITOR) 7-08 tablet by ity of 40 mg 00:00: mouth at [place] tablet 00 bedtime. Medical Branch lisinopril Yes 20mg Take 1 Unive rs (PRINIVIL,Z 7-08 tablet by ity of ESTRIL) 20 00:00: mouth [place] mg tablet 00 daily. Medical Branch pantoprazol Yes 40mg Take 1 Univ ers e 7-08 tablet by ity of (PROTONIX) 00:00: mouth [place] 40 mg EC 00 daily. Medical tablet Branch Immunizations Ordered Filled Immunization Date Status Comments [facility] e Immunization Name Name [facility] 2020-05-06 Completed [facility] 00:00:00 [facility] 2020-05-[address] [facility] 00:00:00 [facility] Twinrix (hep a/hep 2018-11-05 Completed Amira miller of b) 00:00:00 [facility] [place] Hep A / Hep B 2018-11-[address] [facility] 00:00:00 [facility] Influenza Virus 2015-05-22 Completed Universit y of Vaccine 00:00:00 [facility] [place] Influenza, 2015-05-22 Completed [facility] Unspecified 00:00:00 [facility] 2010-07-18 Completed [facility] of 00:00:00 [facility] [place] Vital Signs Vital Name Observation Time Observation Value Comments Source WEIGHT 2022-09-18 06:00:00 175.27 kg WEIGHT 2022-09-16 04:20:00 175.225 kg WEIGHT 2022-09-14 05:58:00 175.996 kg WEIGHT 2022-09-13 05:12:00 174.181 kg WEIGHT 2022-09-12 04:00:00 173.274 kg WEIGHT 2022-09-11 04:00:00 173.728 kg WEIGHT 2022-09-10 04:00:00 174 kg WEIGHT 2022-09-09 04:26:00 173.637 kg WEIGHT 2022-09-08 16:00:00 172 kg WEIGHT 2022-09-07 15:00:00 171.369 kg WEIGHT 2022-09-06 03:00:00 171.596 kg WEIGHT 2022-09-05 04:00:00 168.738 kg WEIGHT 2022-09-04 03:45:00 169.373 kg WEIGHT 2022-09-03 06:42:00 173.365 kg WEIGHT 2022-09-02 04:00:00 175.542 kg WEIGHT 2022-09-01 04:16:00 172.594 kg WEIGHT 2022-08-31 08:15:00 172.503 kg HEIGHT 2022-08-30 23:30:00 190.5 cm WEIGHT 2022-08-30 23:30:00 176.449 kg WEIGHT 2022-09-18 06:00:00 175.27 kg WEIGHT 2022-09-16 04:20:00 175.225 kg WEIGHT 2022-09-14 05:58:00 175.996 kg WEIGHT 2022-09-13 05:12:00 174.181 kg WEIGHT 2022-09-12 04:00:00 173.274 kg WEIGHT 2022-09-11 04:00:00 173.728 kg WEIGHT 2022-09-10 04:00:00 174 kg WEIGHT 2022-09-09 04:26:00 173.637 kg WEIGHT 2022-09-08 16:00:00 172 kg WEIGHT 2022-09-07 15:00:00 171.369 kg WEIGHT 2022-09-06 03:00:00 171.596 kg WEIGHT 2022-09-05 04:00:00 168.738 kg WEIGHT 2022-09-04 03:45:00 169.373 kg WEIGHT 2022-09-03 06:42:00 173.365 kg WEIGHT 2022-09-02 04:00:00 175.542 kg WEIGHT 2022-09-01 04:16:00 172.594 kg WEIGHT 2022-08-31 08:15:00 172.503 kg HEIGHT 2022-08-30 23:30:00 190.5 cm WEIGHT 2022-08-30 23:30:00 176.449 kg WEIGHT 2022-09-18 06:00:00 175.27 kg WEIGHT 2022-09-16 04:20:00 175.225 kg WEIGHT 2022-09-14 05:58:00 175.996 kg WEIGHT 2022-09-13 05:12:00 174.181 kg WEIGHT 2022-09-12 04:00:00 173.274 kg WEIGHT 2022-09-11 04:00:00 173.728 kg WEIGHT 2022-09-10 04:00:00 174 kg WEIGHT 2022-09-09 04:26:00 173.637 kg WEIGHT 2022-09-08 16:00:00 172 kg WEIGHT 2022-09-07 15:00:00 171.369 kg WEIGHT 2022-09-06 03:00:00 171.596 kg WEIGHT 2022-09-05 04:00:00 168.738 kg WEIGHT 2022-09-04 03:45:00 169.373 kg WEIGHT 2022-09-03 06:42:00 173.365 kg WEIGHT 2022-09-02 04:00:00 175.542 kg WEIGHT 2022-09-01 04:16:00 172.594 kg WEIGHT 2022-08-31 08:15:00 172.503 kg HEIGHT 2022-08-30 23:30:00 190.5 cm WEIGHT 2022-08-30 23:30:00 176.449 kg WEIGHT 2022-08-06 10:45:00 178.082 kg WEIGHT 2022-08-06 10:45:00 178.082 kg WEIGHT 2022-08-06 10:45:00 178.082 kg WEIGHT 2022-06-18 09:48:00 174.952 kg WEIGHT 2022-06-18 09:48:00 174.952 kg WEIGHT 2022-06-18 09:48:00 174.952 kg WEIGHT 2022-05-14 08:56:00 173.818 kg WEIGHT 2022-05-14 08:56:00 173.818 kg WEIGHT 2022-05-14 08:56:00 173.818 kg WEIGHT 2022-03-26 09:10:00 171.051 kg WEIGHT 2022-03-26 09:10:00 171.051 kg WEIGHT 2022-03-26 09:10:00 171.051 kg WEIGHT 2022-02-26 08:10:00 167.423 kg WEIGHT 2022-02-26 08:10:00 167.423 kg WEIGHT 2022-02-26 08:10:00 167.423 kg WEIGHT 2022-01-29 10:21:00 162.524 kg WEIGHT 2022-01-29 10:21:00 162.524 kg WEIGHT 2022-01-29 10:21:00 162.524 kg WEIGHT 2021-12-25 10:21:00 159.893 kg WEIGHT 2021-12-25 10:21:00 159.893 kg WEIGHT 2021-12-25 10:21:00 159.893 kg WEIGHT 2021-11-20 09:07:00 158.759 kg WEIGHT 2021-11-20 09:07:00 158.759 kg WEIGHT 2021-11-20 09:07:00 158.759 kg HEIGHT 2021-11-06 09:51:00 190.5 cm WEIGHT 2021-11-06 09:51:00 155.402 kg HEIGHT 2021-11-06 09:51:00 190.5 cm WEIGHT 2021-11-06 09:51:00 155.402 kg HEIGHT 2021-11-06 09:51:00 190.5 cm WEIGHT 2021-11-06 09:51:00 155.402 kg WEIGHT 2021-10-30 09:19:00 152.046 kg WEIGHT 2021-10-30 09:19:00 152.046 kg WEIGHT 2021-10-30 09:19:00 152.046 kg HEIGHT 2021-10-23 09:02:00 190.5 cm WEIGHT 2021-10-23 09:02:00 153.769 kg HEIGHT 2021-10-23 09:02:00 190.5 cm WEIGHT 2021-10-23 09:02:00 153.769 kg HEIGHT 2021-10-23 09:02:00 190.5 cm WEIGHT 2021-10-23 09:02:00 153.769 kg WEIGHT 2021-10-10 08:38:00 147.6 kg WEIGHT 2021-10-09 16:00:00 150.458 kg WEIGHT 2021-10-06 11:28:00 150.413 kg HEIGHT 2021-10-04 16:00:00 190.5 cm WEIGHT 2021-10-04 16:00:00 151.501 kg WEIGHT 2021-10-02 05:00:00 142.9 kg WEIGHT 2021-10-01 06:13:00 156.2 kg WEIGHT 2021-09-30 05:00:00 156.5 kg WEIGHT 2021-09-29 06:00:00 151.3 kg WEIGHT 2021-09-28 06:15:00 151 kg WEIGHT 2021-09-27 05:00:00 151 kg WEIGHT 2021-09-25 04:55:00 155.266 kg WEIGHT 2021-09-23 06:00:00 152.1 kg WEIGHT 2021-09-20 06:00:00 146.5 kg WEIGHT 2021-09-19 06:00:00 149 kg WEIGHT 2021-09-18 06:00:00 68.7 kg WEIGHT 2021-09-18 04:00:00 68.72 kg WEIGHT 2021-09-17 06:00:00 156.9 kg WEIGHT 2021-09-17 05:00:00 156.9 kg WEIGHT 2021-09-16 06:00:00 154 kg WEIGHT 2021-09-15 06:00:00 156 kg WEIGHT 2021-09-13 05:49:00 153 kg WEIGHT 2021-09-12 05:00:00 154 kg WEIGHT 2021-09-11 06:00:00 155 kg WEIGHT 2021-09-10 06:00:00 156 kg WEIGHT 2021-09-09 05:50:00 155 kg HEIGHT 2021-09-07 23:00:00 190.5 cm WEIGHT 2021-09-07 23:00:00 148.1 kg WEIGHT 2021-09-06 06:00:00 148.1 kg WEIGHT 2021-09-05 03:22:00 148.1 kg WEIGHT 2021-09-04 03:00:00 149.1 kg HEIGHT 2021-09-02 23:18:00 190.5 cm WEIGHT 2021-09-02 23:18:00 152.136 kg HEIGHT 2021-09-02 17:50:00 190.5 cm WEIGHT 2021-09-02 17:50:00 152.409 kg WEIGHT 2021-10-10 08:38:00 147.6 kg WEIGHT 2021-10-09 16:00:00 150.458 kg WEIGHT 2021-10-06 11:28:00 150.413 kg HEIGHT 2021-10-04 16:00:00 190.5 cm WEIGHT 2021-10-04 16:00:00 151.501 kg WEIGHT 2021-10-02 05:00:00 142.9 kg WEIGHT 2021-10-01 06:13:00 156.2 kg WEIGHT 2021-09-30 05:00:00 156.5 kg WEIGHT 2021-09-29 06:00:00 151.3 kg WEIGHT 2021-09-28 06:15:00 151 kg WEIGHT 2021-09-27 05:00:00 151 kg WEIGHT 2021-09-25 04:55:00 155.266 kg WEIGHT 2021-09-23 06:00:00 152.1 kg WEIGHT 2021-09-20 06:00:00 146.5 kg WEIGHT 2021-09-19 06:00:00 149 kg WEIGHT 2021-09-18 06:00:00 68.7 kg WEIGHT 2021-09-18 04:00:00 68.72 kg WEIGHT 2021-09-17 06:00:00 156.9 kg WEIGHT 2021-09-17 05:00:00 156.9 kg WEIGHT 2021-09-16 06:00:00 154 kg WEIGHT 2021-09-15 06:00:00 156 kg WEIGHT 2021-09-13 05:49:00 153 kg WEIGHT 2021-09-12 05:00:00 154 kg WEIGHT 2021-09-11 06:00:00 155 kg WEIGHT 2021-09-10 06:00:00 156 kg WEIGHT 2021-09-09 05:50:00 155 kg HEIGHT 2021-09-07 23:00:00 190.5 cm WEIGHT 2021-09-07 23:00:00 148.1 kg WEIGHT 2021-09-06 06:00:00 148.1 kg WEIGHT 2021-09-05 03:22:00 148.1 kg WEIGHT 2021-09-04 03:00:00 149.1 kg HEIGHT 2021-09-02 23:18:00 190.5 cm WEIGHT 2021-09-02 23:18:00 152.136 kg HEIGHT 2021-09-02 17:50:00 190.5 cm WEIGHT 2021-09-02 17:50:00 152.409 kg WEIGHT 2021-10-10 08:38:00 147.6 kg WEIGHT 2021-10-09 16:00:00 150.458 kg WEIGHT 2021-10-06 11:28:00 150.413 kg HEIGHT 2021-10-04 16:00:00 190.5 cm WEIGHT 2021-10-04 16:00:00 151.501 kg WEIGHT 2021-10-02 05:00:00 142.9 kg WEIGHT 2021-10-01 06:13:00 156.2 kg WEIGHT 2021-09-30 05:00:00 156.5 kg WEIGHT 2021-09-29 06:00:00 151.3 kg WEIGHT 2021-09-28 06:15:00 151 kg WEIGHT 2021-09-27 05:00:00 151 kg WEIGHT 2021-09-25 04:55:00 155.266 kg WEIGHT 2021-09-23 06:00:00 152.1 kg WEIGHT 2021-09-20 06:00:00 146.5 kg WEIGHT 2021-09-19 06:00:00 149 kg WEIGHT 2021-09-18 06:00:00 68.7 kg WEIGHT 2021-09-18 04:00:00 68.72 kg WEIGHT 2021-09-17 06:00:00 156.9 kg WEIGHT 2021-09-17 05:00:00 156.9 kg WEIGHT 2021-09-16 06:00:00 154 kg WEIGHT 2021-09-15 06:00:00 156 kg WEIGHT 2021-09-13 05:49:00 153 kg WEIGHT 2021-09-12 05:00:00 154 kg WEIGHT 2021-09-11 06:00:00 155 kg WEIGHT 2021-09-10 06:00:00 156 kg WEIGHT 2021-09-09 05:50:00 155 kg HEIGHT 2021-09-07 23:00:00 190.5 cm WEIGHT 2021-09-07 23:00:00 148.1 kg WEIGHT 2021-09-06 06:00:00 148.1 kg WEIGHT 2021-09-05 03:22:00 148.1 kg WEIGHT 2021-09-04 03:00:00 149.1 kg HEIGHT 2021-09-02 23:18:00 190.5 cm WEIGHT 2021-09-02 23:18:00 152.136 kg HEIGHT 2021-09-02 17:50:00 190.5 cm WEIGHT 2021-09-02 17:50:00 152.409 kg WEIGHT 2021-09-01 11:02:00 153.996 kg WEIGHT 2021-09-01 11:02:00 153.996 kg WEIGHT 2021-08-18 14:36:00 151.547 kg WEIGHT 2021-08-18 14:36:00 151.547 kg WEIGHT 2021-08-17 05:37:00 151.757 kg HEIGHT 2021-08-16 17:00:00 190.5 cm WEIGHT 2021-08-16 17:00:00 143.654 kg HEIGHT 2021-08-16 09:32:00 190.5 cm WEIGHT 2021-08-16 09:32:00 155.13 kg WEIGHT 2021-08-17 05:37:00 151.757 kg HEIGHT 2021-08-16 17:00:00 190.5 cm WEIGHT 2021-08-16 17:00:00 143.654 kg HEIGHT 2021-08-16 09:32:00 190.5 cm WEIGHT 2021-08-16 09:32:00 155.13 kg WEIGHT 2021-08-11 06:00:00 154.3 kg WEIGHT 2021-08-10 06:00:00 151 kg WEIGHT 2021-08-09 06:00:00 150.9 kg WEIGHT 2021-08-08 04:57:00 152.2 kg WEIGHT 2021-08-07 06:00:00 148.5 kg WEIGHT 2021-08-05 03:00:00 151.9 kg WEIGHT 2021-08-04 03:40:00 152.4 kg WEIGHT 2021-08-03 03:00:00 152 kg WEIGHT 2021-08-02 06:00:00 151.955 kg WEIGHT 2021-07-31 06:00:00 148 kg HEIGHT 2021-07-31 06:00:00 190.5 cm WEIGHT 2021-07-30 06:00:00 146.6 kg WEIGHT 2021-07-29 05:42:00 150.5 kg WEIGHT 2021-07-28 07:23:00 150.2 kg WEIGHT 2021-07-26 05:42:00 140.7 kg WEIGHT 2021-07-25 08:00:00 151.6 kg WEIGHT 2021-07-24 06:04:00 151.819 kg WEIGHT 2021-07-23 06:00:00 152.59 kg WEIGHT 2021-07-22 06:00:00 153.4 kg WEIGHT 2021-07-21 06:00:00 154 kg WEIGHT 2021-07-20 12:00:00 157 kg WEIGHT 2021-07-19 04:30:00 156.3 kg WEIGHT 2021-07-18 05:50:00 161.8 kg WEIGHT 2021-07-17 06:00:00 162.7 kg WEIGHT 2021-07-16 05:53:00 159.7 kg WEIGHT 2021-07-14 06:00:00 158.9 kg WEIGHT 2021-07-13 06:00:00 157.1 kg WEIGHT 2021-07-10 15:00:00 158.305 kg WEIGHT 2021-07-09 04:56:00 160.8 kg WEIGHT 2021-07-06 06:00:00 161.5 kg WEIGHT 2021-07-05 06:00:00 161.5 kg WEIGHT 2021-07-04 04:00:00 160.8 kg WEIGHT 2021-07-02 06:00:00 172.503 kg WEIGHT 2021-07-01 05:33:00 170.054 kg WEIGHT 2021-06-30 05:00:00 168.829 kg HEIGHT 2021-06-30 02:02:00 190.5 cm WEIGHT 2021-06-30 02:02:00 75.297 kg WEIGHT 2021-08-11 06:00:00 154.3 kg WEIGHT 2021-08-10 06:00:00 151 kg WEIGHT 2021-08-09 06:00:00 150.9 kg WEIGHT 2021-08-08 04:57:00 152.2 kg WEIGHT 2021-08-07 06:00:00 148.5 kg WEIGHT 2021-08-05 03:00:00 151.9 kg WEIGHT 2021-08-04 03:40:00 152.4 kg WEIGHT 2021-08-03 03:00:00 152 kg WEIGHT 2021-08-02 06:00:00 151.955 kg WEIGHT 2021-07-31 06:00:00 148 kg HEIGHT 2021-07-31 06:00:00 190.5 cm WEIGHT 2021-07-30 06:00:00 146.6 kg WEIGHT 2021-07-29 05:42:00 150.5 kg WEIGHT 2021-07-28 07:23:00 150.2 kg WEIGHT 2021-07-26 05:42:00 140.7 kg WEIGHT 2021-07-25 08:00:00 151.6 kg WEIGHT 2021-07-24 06:04:00 151.819 kg WEIGHT 2021-07-23 06:00:00 152.59 kg WEIGHT 2021-07-22 06:00:00 153.4 kg WEIGHT 2021-07-21 06:00:00 154 kg WEIGHT 2021-07-20 12:00:00 157 kg WEIGHT 2021-07-19 04:30:00 156.3 kg WEIGHT 2021-07-18 05:50:00 161.8 kg WEIGHT 2021-07-17 06:00:00 162.7 kg WEIGHT 2021-07-16 05:53:00 159.7 kg WEIGHT 2021-07-14 06:00:00 158.9 kg WEIGHT 2021-07-13 06:00:00 157.1 kg WEIGHT 2021-07-10 15:00:00 158.305 kg WEIGHT 2021-07-09 04:56:00 160.8 kg WEIGHT 2021-07-06 06:00:00 161.5 kg WEIGHT 2021-07-05 06:00:00 161.5 kg WEIGHT 2021-07-04 04:00:00 160.8 kg WEIGHT 2021-07-02 06:00:00 172.503 kg WEIGHT 2021-07-01 05:33:00 170.054 kg WEIGHT 2021-06-30 05:00:00 168.829 kg HEIGHT 2021-06-30 02:02:00 190.5 cm WEIGHT 2021-06-30 02:02:00 75.297 kg WEIGHT 2021-06-24 05:37:00 164.293 kg WEIGHT 2021-06-23 04:40:00 161.934 kg WEIGHT 2021-06-22 06:00:00 157.5 kg WEIGHT 2021-06-21 06:00:00 157 kg WEIGHT 2021-06-20 04:00:00 157.7 kg WEIGHT 2021-06-19 05:36:00 163.8 kg WEIGHT 2021-06-17 06:00:00 161.7 kg WEIGHT 2021-06-14 05:43:00 167.9 kg WEIGHT 2021-06-12 08:00:00 168 kg WEIGHT 2021-06-11 05:00:00 168 kg WEIGHT 2021-06-05 06:00:00 171.732 kg WEIGHT 2021-06-04 05:00:00 172.957 kg WEIGHT 2021-06-03 06:00:00 172 kg WEIGHT 2021-06-02 06:00:00 172.4 kg WEIGHT 2021-06-01 07:00:00 172.684 kg HEIGHT 2021-05-31 22:12:00 190.5 cm WEIGHT 2021-05-31 22:12:00 172.14 kg WEIGHT 2021-06-24 05:37:00 164.293 kg WEIGHT 2021-06-23 04:40:00 161.934 kg WEIGHT 2021-06-22 06:00:00 157.5 kg WEIGHT 2021-06-21 06:00:00 157 kg WEIGHT 2021-06-20 04:00:00 157.7 kg WEIGHT 2021-06-19 05:36:00 163.8 kg WEIGHT 2021-06-17 06:00:00 161.7 kg WEIGHT 2021-06-14 05:43:00 167.9 kg WEIGHT 2021-06-12 08:00:00 168 kg WEIGHT 2021-06-11 05:00:00 168 kg WEIGHT 2021-06-05 06:00:00 171.732 kg WEIGHT 2021-06-04 05:00:00 172.957 kg WEIGHT 2021-06-03 06:00:00 172 kg WEIGHT 2021-06-02 06:00:00 172.4 kg WEIGHT 2021-06-01 07:00:00 172.684 kg HEIGHT 2021-05-31 22:12:00 190.5 cm WEIGHT 2021-05-31 22:12:00 172.14 kg WEIGHT 2021-05-22 13:47:00 178.218 kg WEIGHT 2021-05-22 13:47:00 178.218 kg WEIGHT 2021-05-15 14:24:00 170.825 kg WEIGHT 2021-05-15 14:24:00 170.825 kg WEIGHT 2021-05-08 13:24:00 177.674 kg WEIGHT 2021-05-08 13:24:00 177.674 kg WEIGHT 2021-05-01 15:24:00 181.892 kg HEIGHT 2021-05-01 15:24:00 190.5 cm WEIGHT 2021-04-23 07:29:00 181.756 kg WEIGHT 2021-04-22 05:00:00 186.882 kg WEIGHT 2021-04-21 06:10:00 182.936 kg WEIGHT 2021-04-20 06:04:00 182.8 kg WEIGHT 2021-04-19 08:00:00 183.3 kg WEIGHT 2021-04-19 04:00:00 183.798 kg WEIGHT 2021-04-18 07:00:00 178.173 kg WEIGHT 2021-04-17 04:00:00 182.21 kg WEIGHT 2021-04-16 04:00:00 181.484 kg WEIGHT 2021-04-15 06:31:00 179.398 kg WEIGHT 2021-04-14 05:52:00 181.575 kg WEIGHT 2021-04-13 05:04:00 181.303 kg WEIGHT 2021-04-12 04:57:00 183.344 kg HEIGHT 2021-04-11 21:32:00 190.5 cm WEIGHT 2021-04-11 21:32:00 183.344 kg WEIGHT 2021-04-11 06:00:00 181.167 kg WEIGHT 2021-04-10 06:00:00 178.717 kg WEIGHT 2021-04-09 06:00:00 178.899 kg WEIGHT 2021-04-07 05:00:00 175.6 kg WEIGHT 2021-04-05 05:00:00 178 kg WEIGHT 2021-04-04 06:00:00 178 kg WEIGHT 2021-04-03 03:51:00 177.493 kg WEIGHT 2021-04-02 04:12:00 175.905 kg WEIGHT 2021-04-01 10:38:00 174.181 kg WEIGHT 2021-03-31 04:38:00 177.311 kg HEIGHT 2021-03-30 14:30:00 190.5 cm WEIGHT 2021-03-30 14:30:00 179.443 kg HEIGHT 2021-03-30 11:36:00 190.5 cm WEIGHT 2021-03-30 11:36:00 170.099 kg WEIGHT 2021-04-23 07:29:00 181.756 kg WEIGHT 2021-04-22 05:00:00 186.882 kg WEIGHT 2021-04-21 06:10:00 182.936 kg WEIGHT 2021-04-20 06:04:00 182.8 kg WEIGHT 2021-04-19 08:00:00 183.3 kg WEIGHT 2021-04-19 04:00:00 183.798 kg WEIGHT 2021-04-18 07:00:00 178.173 kg WEIGHT 2021-04-17 04:00:00 182.21 kg WEIGHT 2021-04-16 04:00:00 181.484 kg WEIGHT 2021-04-15 06:31:00 179.398 kg WEIGHT 2021-04-14 05:52:00 181.575 kg WEIGHT 2021-04-13 05:04:00 181.303 kg WEIGHT 2021-04-12 04:57:00 183.344 kg HEIGHT 2021-04-11 21:32:00 190.5 cm WEIGHT 2021-04-11 21:32:00 183.344 kg WEIGHT 2021-04-11 06:00:00 181.167 kg WEIGHT 2021-04-10 06:00:00 178.717 kg WEIGHT 2021-04-09 06:00:00 178.899 kg WEIGHT 2021-04-07 05:00:00 175.6 kg WEIGHT 2021-04-05 05:00:00 178 kg WEIGHT 2021-04-04 06:00:00 178 kg WEIGHT 2021-04-03 03:51:00 177.493 kg WEIGHT 2021-04-02 04:12:00 175.905 kg WEIGHT 2021-04-01 10:38:00 174.181 kg WEIGHT 2021-03-31 04:38:00 177.311 kg HEIGHT 2021-03-30 14:30:00 190.5 cm WEIGHT 2021-03-30 14:30:00 179.443 kg HEIGHT 2021-03-30 11:36:00 190.5 cm WEIGHT 2021-03-30 11:36:00 170.099 kg HEIGHT 2021 05:32:00 190.5 cm WEIGHT 2021 05:32:00 182.709 kg WEIGHT 2021-03-28 05:29:00 181.575 kg WEIGHT 2021-03-27 05:31:00 178.49 kg HEIGHT 2021-03-24 20:21:00 190.5 cm WEIGHT 2021-03-24 20:21:00 166.924 kg HEIGHT 2021 05:32:00 190.5 cm WEIGHT 2021 05:32:00 182.709 kg WEIGHT 2021-03-28 05:29:00 181.575 kg WEIGHT 2021-03-27 05:31:00 178.49 kg HEIGHT 2021-03-24 20:21:00 190.5 cm WEIGHT 2021-03-24 20:21:00 166.924 kg WEIGHT 2021-03-14 07:00:00 167.377 kg WEIGHT 2021-03-10 08:54:00 167.9 kg WEIGHT 2021-03-05 07:10:00 160.3 kg WEIGHT 2021-03-04 09:03:00 170.6 kg WEIGHT 2021-03-04 07:00:00 170.2 kg WEIGHT 2021-03-03 12:11:00 170 kg WEIGHT 2021-03-02 11:56:00 168.9 kg HEIGHT 2021-02-28 03:00:00 190.5 cm WEIGHT 2021-02-28 03:00:00 173.4 kg HEIGHT 2021-02-27 17:05:00 190.5 cm WEIGHT 2021-02-27 17:05:00 167.831 kg WEIGHT 2021-03-14 07:00:00 167.377 kg WEIGHT 2021-03-10 08:54:00 167.9 kg WEIGHT 2021-03-05 07:10:00 160.3 kg WEIGHT 2021-03-04 09:03:00 170.6 kg WEIGHT 2021-03-04 07:00:00 170.2 kg WEIGHT 2021-03-03 12:11:00 170 kg WEIGHT 2021-03-02 11:56:00 168.9 kg HEIGHT 2021-02-28 03:00:00 190.5 cm WEIGHT 2021-02-28 03:00:00 173.4 kg HEIGHT 2021-02-27 17:05:00 190.5 cm WEIGHT 2021-02-27 17:05:00 167.831 kg Heart rate 2022-09-18 12:00:00 89 /min [facility] Body temperature 2022-09-18 12:00:00 36.28 Shonda [facility] Respiratory rate 2022-09-18 12:00:00 18 /min [facility] Oxygen saturation in 2022-09-18 12:00:00 100 /min [facility] Arterial blood by Medical Ce nter Pulse oximetry Body weight 2022-09-18 06:00:00 175.27 kg [facility] BMI 2022-09-18 06:00:00 48.30 kg/m2 [facility] Systolic blood 2022-09-18 00:32:00 97 mm[Hg] [facility] Diastolic blood 2022-09-18 00:32:00 73 mm[Hg] [facility] Body height 2022-08-30 23:30:00 190.5 cm [facility] Systolic blood 2021-01-16 16:04:16 114 mm[Hg] [facility] pressure Diastolic blood 2021-01-16 16:04:16 74 mm[Hg] [facility] pressure Heart rate 2021-01-16 16:04:16 87 /min [facility] Body temperature 2021-01-16 16:04:16 36.39 Shonda [facility] Respiratory rate 2021-01-16 16:04:16 18 /min [facility] Oxygen saturation in 2021-01-16 16:04:16 96 /min [facility] Arterial blood by Pulse oximetry Body weight 2021-01-14 09:42:14 166.062 kg [facility] BMI 2021-01-14 09:42:14 45.76 kg/m2 [facility] Body height 2021-01-13 21:50:00 190.5 cm [facility] Procedures Procedure Date / Time Performing Clinician Source Performed PROTHROMBIN TIME/INR 2022-09-24 12:58:00 Marta Seals I [facility] PROTHROMBIN TIME/INR 2022-09-18 05:50:00 Jenny [facility] APTT 2022-09-18 05:50:00 Marley [facility] CBC W/PLT COUNT & AUTO 2022-09-18 05:49:00 [facility] CBC W/PLT COUNT & AUTO 2022-09-18 05:49:00 Jenny [facility] BASIC METABOLIC PANEL 2022-09-18 05:49:00 Jenny [facility] MAGNESIUM 2022-09-18 05:49:00 Jenny [facility] PHOSPHORUS 2022-09-18 05:49:00 Jenny [facility] LACTATE DEHYDROGENASE 2022-09-18 05:49:00 Marley [facility] ([facility]) [facility] APTT 2022-09-17 16:10:00 [facility] APTT 2022-09-17 09:59:00 Marley [facility] CBC W/PLT COUNT & AUTO 2022-09-17 04:42:00 Jenny [facility] APTT 2022-09-17 04:42:00 Marley [facility] CBC W/PLT COUNT & AUTO 2022-09-17 04:42:00 Jenny [facility] BASIC METABOLIC PANEL 2022-09-17 04:42:00 Jenny [facility] MAGNESIUM 2022-09-17 04:42:00 Jenny [facility] PHOSPHORUS 2022-09-17 04:42:00 Jenny [facility] PROTHROMBIN TIME/INR 2022-09-17 04:42:00 Jenny [facility] LACTATE DEHYDROGENASE 2022-09-17 04:42:00 [facility] APTT 2022-09-16 15:59:00 Marley [facility] APTT 2022-09-16 10:04:00 Marley [facility] CBC W/PLT COUNT & AUTO 2022-09-16 04:16:00 Jenny [facility] CBC W/PLT COUNT & AUTO 2022-09-16 04:16:00 Jenny [facility] BASIC METABOLIC PANEL 2022-09-16 04:15:00 Jenny [facility] MAGNESIUM 2022-09-16 04:15:00 Jenny [facility] PHOSPHORUS 2022-09-16 04:15:00 Jenny [facility] PROTHROMBIN TIME/INR 2022-09-16 04:15:00 Jenny [facility] LACTATE DEHYDROGENASE 2022-09-16 04:15:00 Marley [facility] ([facility]) [facility] APTT 2022-09-16 04:15:00 Marley [facility] APTT 2022-09-15 18:47:00 Marley [facility] APTT 2022-09-15 12:43:00 Marley [facility] CBC W/PLT COUNT & AUTO 2022-09-15 06:11:00 Jenny [facility] APTT 2022-09-15 06:11:00 Marley [facility] CBC W/PLT COUNT & AUTO 2022-09-15 06:11:00 Jenny [facility] BASIC METABOLIC PANEL 2022-09-15 06:11:00 Jenny [facility] MAGNESIUM 2022-09-15 06:11:00 Jenny [facility] PHOSPHORUS 2022-09-15 06:11:00 Jenny [facility] PROTHROMBIN TIME/INR 2022-09-15 06:11:00 Jenny [facility] LACTATE DEHYDROGENASE 2022-09-15 06:11:00 Lexus Roach [facility] ([facility]) [facility] APTT 2022-09-14 23:20:00 Marley Lexus [facility] APTT 2022-09-14 16:32:00 Lexus Roach [facility] REPORT OF PROCEDURE - 2022-09-14 16:15:49 Amgarlandtalex [facility] ENDOSCOPY URL [facility] COLONOSCOPY 2022-09-14 15:38:00 [facility]-14 12:10:00 [facility] P[facility] LINE [facility]AC[facility] 2022-09-14 09:40:00 Solo Gray [facility] OLDER THAN 5 YRS [facility] CBC W/PLT COUNT & AUTO 2022-09-14 03:44:00 Jenny [facility] CBC W/PLT COUNT & AUTO 2022-09-14 03:44:00 Jenny [facility] BASIC METABOLIC PANEL 2022-09-14 03:44:00 Jenny [facility] MAGNESIUM 2022-09-14 03:44:00 Jenny [facility] PHOSPHORUS 2022-09-14 03:44:00 Jenny [facility] PROTHROMBIN TIME/INR 2022-09-14 03:44[facility] 2022-09-14 03:44[facility]00 [facility] APTT 2022-09-14 03:44:00 MarleyLexus [facility] APTT 2022-09-13 21:15:00 MarleyLexus [facility] APTT 2022-09-13 13:43:00 Marley [facility] CBC W/PLT COUNT & AUTO 2022-09-13 06:46:00 Jenny [facility] CBC W/PLT COUNT & AUTO 2022-09-13 06:46:00 Jenny [facility] BASIC METABOLIC PANEL 2022-09-13 06:46:00 Jenny [facility] MAGNESIUM 2022-09-13 06:46:00 Jenny [facility] PHOSPHORUS 2022-09-13 06:46:00 Jenny [facility] PROTHROMBIN TIME/INR 2022-09-13 06:46:00 Jenny [facility] LACTATE DEHYDROGENASE 2022-09-13 06:46:00 [facility] APTT 2022-09-13 06:46:00 Marley [facility] APTT 2022-09-13 00:08:00 Marley [facility] APTT 2022-09-12 18:13:00 Marley [facility] APTT 2022-09-12 09:29:00 Marley [facility] CBC W/PLT COUNT & AUTO 2022-09-12 02:08:00 Jenny [facility] CBC W/PLT COUNT & AUTO 2022-09-12 02:08:00 Jenny [facility] BASIC METABOLIC PANEL 2022-09-12 02:08:00 Jenny [facility] MAGNESIUM 2022-09-12 02:08:00 Jenny [facility] PHOSPHORUS 2022-09-12 02:08:00 Jenny [facility] PROTHROMBIN TIME/INR 2022-09-12 02:08:00 Jenny [facility] LACTATE DEHYDROGENASE 2022-09-12 02:08:00 [facility] APTT 2022-09-12 02:08:00 Marley [facility] APTT 2022-09-11 18:53:00 Marley [facility] REPORT OF PROCEDURE - 2022-09-11 14:59:36 Amaratalex [facility] ENDOSCOPY URL [facility] COLONOSCOPY 2022-09-11 14:45:00 Amaratalex [facility] CBC W/PLT COUNT & AUTO 2022-09-11 04:21:00 Jenny [facility] CBC W/PLT COUNT & AUTO 2022-09-11 04:21:00 Jenny [facility] BASIC METABOLIC PANEL 2022-09-11 04:21:00 Jenny [facility] MAGNESIUM 2022-09-11 04:21:00 Jenny [facility] PHOSPHORUS 2022-09-11 04:21:00 Jenny [facility] PROTHROMBIN TIME/INR 2022-09-11 04:21:00 Jenny [facility] LACTATE DEHYDROGENASE 2022-09-11 04:21:00 Marley [facility] ([facility]) [facility] APTT 2022-09-11 04:21:00 Jenny [facility] APTT 2022-09-10 20:24:00 Marley Lex[facility] APTT 2022-09-10 11:58:00 Marley [facility] APTT 2022-09-10 05:47:00 Marley, Lexus [facility] CBC W/PLT COUNT & AUTO 2022-09-10 02:55:00 Jenny [facility] CBC W/PLT COUNT & AUTO 2022-09-10 02:55:00 Jenny [facility] BASIC METABOLIC PANEL 2022-09-10 02:55:00 Jenny [facility] MAGNESIUM 2022-09-10 02:55:00 Jenny [facility] PHOSPHORUS 2022-09-10 02:55:00 Jenny [facility] PROTHROMBIN TIME/INR 2022-09-10 02:55[facility]SE 2022-09-10 02:55:00 Marley [facility] ([facility]) [facility] APTT 2022-09-10 02:55:00 Marley [facility] POTASSIUM 2022-09-09 19:51:00 Jenny [facility] APTT 2022-09-09 19:51:00 Marley [facility] APTT 2022-09-09 12:02:00 Marley [facility] CBC W/PLT COUNT & AUTO 2022-09-09 05:54:00 Jenny [facility] CBC W/PLT COUNT & AUTO 2022-09-09 05:54:00 Jenny [facility] BASIC METABOLIC PANEL 2022-09-09 05:54:00 Jenny [facility] MAGNESIUM 2022-09-09 05:54:00 Jenny [facility] PHOSPHORUS 2022-09-09 05:54:00 [facility] PROT[facility]/INR 2022-09-09 05:54:00 [facility] LACTATE DEHYDROGENASE 2022-09-09 05:54:00 Marley [facility] ([facility] APTT 2022-09-09 05:54:00 Marley [facility] APTT 2022-09-08 20:14:00 Marley [facility] WOUND CULTURE + GRAM STAIN 2022-09-08 17:25:00 KervinDevon Shanelroy brianda [facility] APTT 2022-09-08 13:23:00 Marley [facility] CBC W/PLT COUNT & AUTO 2022-09-08 06:11:00 Jenny [facility] CBC W/PLT COUNT & AUTO 2022-09-08 06:11:00 Jenny [facility] BASIC METABOLIC PANEL 2022-09-08 06:11:00 Jenny [facility] MAGNESIUM 2022-09-08 06:11:00 Jenny [facility] PHOSPHORUS 2022-09-08 06:11:00 Jenny [facility] LACTATE DEHYDROGENASE 2022-09-08 06:11:00 Marley [facility] ([facility]) [facility] PROTHROMBIN TIME/INR 2022-09-08 06:10:00 Jenny [facility] APTT 2022-09-08 06:10:00 Marley [facility] APTT 2022-09-07 20:12:00 Marley [facility] SARS-COV2/RT-PCR ([facility] & 2022-09-07 17:07:00 Prema Jolly [facility] REF LABS) [facility] ICD CHECK WITH 2022-09-07 15:15:35 Solo Gray [facility] APTT 2022-09-07 13:01:00 Marley [facility] XR ABDOMEN/KUB 1 VIEW 2022-09-07 09:36:00 Travon Jolly [facility] CBC W/PLT COUNT & AUTO 2022-09-07 01:50:00 Jenny, [facility] CBC W/PLT COUNT & AUTO 2022-09-07 01:50:00 Jenny, [facility] BASIC METABOLIC PANEL 2022-09-07 01:49:00 Jenny [facility] MAGNESIUM 2022-09-07 01:49:00 Jenny [facility] PHOSPHORUS 2022-09-07 01:49:00 Jenny [facility] LACTATE DEHYDROGENASE 2022-09-07 01:49:00 Marley [facility] ([facility]) [facility] PROTHROMBIN TIME/INR 2022-09-07 01:46:00 Jenny [facility] APTT 2022-09-07 01:46:00 Marley [facility] US HEPATIC PORTAL VESSEL 2022-09-06 22:27:00 Marley [facility] APTT 2022-09-06 17:34:00 Marley [facility] CBC W/PLT COUNT & AUTO 2022-09-06 04:24:00 Jenny [facility] CBC W/PLT COUNT & AUTO 2022-09-06 04:24:00 Jenny [facility] BASIC METABOLIC PANEL 2022-09-06 04:24:00 Jenny [facility] MAGNESIUM 2022-09-06 04:24:00 Jenny [facility] PHOSPHORUS 2022-09-06 04:24:00 Jenny [facility] PROTHROMBIN TIME/INR 2022-09-06 04:24:00 [facility] LACT[facility] DEHYDROGENASE 2022-09-06 04:24:00 Marley [facility] ([facility] APTT 2022-09-06 04:24:00 Marley [facility] CBC W/PLT COUNT & AUTO 2022-09-05 05:57:00 Jenny, [facility] CBC W/PLT COUNT & AUTO 2022-09-05 05:57:00 Jenny [facility] BASIC METABOLIC PANEL 2022-09-05 05:57:00 Jenny [facility] MAGNESIUM 2022-09-05 05:57:00 Jenny [facility] PHOSPHORUS 2022-09-05 05:57:00 Jenny [facility] PROTHROMBIN TIME/INR 2022-09-05 05:57:00 [facility] LACTATE DEHYDROGENASE 2022-09-05 05:57:00 Marley [facility] ([facility] LIPID PANEL 2022-09-05 05:57:00 [facility] LACTATE DEHYDROGENASE 2022-09-04 14:11:00 Marley [facility] ([facility] TRANSESOPHAGEAL ECHO 2022-09-04 09:36:08 Marley [facility] CBC W/PLT COUNT & AUTO 2022-09-04 04:53:00 [facility] CBC W/PLT COUNT & AUTO 2022-09-04 04:53:00 [facility] BASIC METABOLIC PANEL 2022-09-04 04:53:00 Jenny [facility] MAGNESIUM 2022-09-04 04:53:00 Jenny [facility] PHOSPHORUS 2022-09-04 04:53:00 Jenny [facility] PROTHROMBIN TIME/INR 2022-09-04 04:53:00 Jenny [facility] CT LUMBAR SPINE WITHOUT IV 2022-09-03 14:22:[address] [facility] CONTRAST [facility] CT ABDOMEN/PELVIS WITHOUT 2022-09-03 14:22:[address] [facility] WOUND CULTURE + GRAM STAIN 2022-09-03 12:33:00 Brooke Barker [facility] COLOR-FLOW MAPPING 2022-09-03 09:24:19 Marley [facility] CONT WAVE PULSED DOPPLER 2022-09-03 09:24:19 Marley [facility] BLOOD CULTURE 2022-09-03 04:43:00 Brooke Barker [facility] BLOOD CULTURE 2022-09-03 04:30:00 DemetrioBrooke fritz Demetrio [facility] CBC W/PLT COUNT & AUTO 2022-09-03 04:29[facility]-09-03 04:29[facility]00 [facility] & AUTO 2022-09-03 04:29:00 [facility] MAGNESIUM 2022-09-03 04:29:00 [facility] PHOS[facility]US 2022-09-03 04:29:00 [facility] PROTHROMBIN TIME/INR 2022-09-03 04:29:00 [facility] CBC W/PLT COUNT & AUTO 2022-09-01 22:54:00 [facility] CBC W/PLT COUNT & AUTO 2022-09-01 22:54:00 [facility] BASIC METABOLIC PANEL 2022-09-01 22:39:00 [facility] PROTHROMBIN TIME/INR 2022-09-01 22:39:00 [facility] 2022-09-01 22:39:00 [facility] PHOS[facility] 2022-09-01 22:39:00 [facility] HEMOGLOBIN A1C 2022-09-01 18:55:00 [facility] BLOOD CULTURE 2022-09-01 18:48:00 Lizanickie Brooke Demetrio [facility] BLOOD CULTURE 2022-09-01 18:40:00 Brooke Barker [facility] 2D ECHO W/ DOPPLER 2022-09-01 15:04:00 Lexus Roach [facility] (CW/PW/COLOR) [facility] POCT-GLUCOSE METER 2022-09-01 07:51[facility]00 [facility]O 2022-09-01 [facility]O 2022-09-01 05:02[facility]00 [facility]ABOLIC PANEL 2022-09-01 05:02:00 [facility] 2022-09-01 05:02:00 Jenny [facility] PHOSPHORUS 2022-09-01 05:02:00 [facility] PROTHROMBIN TIME/INR 2022-09-01 05:02:00 [facility] POCT-GLUCOSE METER 2022-08-31 18:05:00 [facility]IR[facility] PANEL 2022-08-31 14:15:00 [facility] PANEL 2022-08-31 04:21:00 Brenna Alarcon [facility] PROTHROMBIN TIME/INR 2022-08-31 04:21:00 Brenna Alarcon [facility] MAGNESIUM 2022-08-31 04:21:00 Brenna Alarcon [facility] PHOSPHORUS 2022-08-31 04:21:00 Brenna Alarcon [facility] CBC W/PLT COUNT & AUTO 2022-08-31 04:21:[address] [facility] CBC W/PLT COUNT & AUTO 2022-08-31 04:21:[address] [facility] XR LUMBAR SPINE 2 OR 3 2022-08-31 03:40:[address] [facility] HIGH SENSITIVITY TROPONIN 2022-08-31 02:45:00 Brenna Alarcon sa [facility] SARS-COV2/INFLUENZA/RSV 2022-08-30 23:59:00 Eli Mata [facility] RT-PCR [facility] BLOOD CULTURE 2022-08-30 23:55:00 Asa, [facility] BLOOD CULTURE 2022-08-30 23:55:00 Asa, [facility] IDENTIFICATION PANEL Medical Srinivas ter B-TYPE NATRIURETIC FACTOR 2022-08-30 23:55:[address] [facility] (BNP) [facility] CBC W/PLT COUNT & AUTO 2022-08-30 23:55:00 Eli Mata [facility] DIFFERENTIAL [facility] COMPREHENSIVE METABOLIC 2022-08-30 23:55:[address] PANEL [facility] HIGH SENSITIVITY TROPONIN 2022-08-30 23:55:00 Eli Mata [facility] PT/APTT 2022-08-30 23:55:00 Asa, [facility] LACTATE DEHYDROGENASE 2022-08-30 23:55:00 [facility], [facility] (LDH) [facility] LACTIC ACID, VENOUS 2022-08-30 23:55:00 Asa, [facility] MAGNESIUM 2022-08-30 23:55:00 Asa, [facility] PHOSPHORUS 2022-08-30 23:55:00 Asa, [facility] CBC W/PLT COUNT & AUTO 2022-08-30 23:55:00 Eli Mata [facility] XR CHEST 1 VIEW PORTABLE / 2022-08-30 23:45:[address] BEDSIDE [facility] ED ECG INTERPRETATION 2022-08-30 23:33:20 Asa, Arif [facility] ECG 12-LEAD 2022-08-30 23:28:53 Asa, [facility] ECG 12-LEAD 2022-08-30 23:28:53 Unknown, Hl7 Doctor [facility] ARRYTHMIA IMPLANT REPORT - 2022-08-30 00:00:00 Provider, Ena [facility] SCAN [facility] CBC W/PLT COUNT & AUTO 2022-08-06 10:59:[address] [facility] PROTHROMBIN TIME/INR 2022-08-06 10:59:00 Marta Seals [facility] MAGNESIUM 2022-08-06 10:59:00 Marta Seals [facility] LACTATE DEHYDROGENASE 2022-08-06 10:59:[address] [facility] (LDH) [facility] HEPATIC FUNCTION PANEL 2022-08-06 10:59:00 Marta Seals [facility] CBC W/PLT+MANUAL DIFF 2022-08-06 10:59:00 Marta Seals [facility] BASIC METABOLIC PANEL 2022-08-06 10:59:00 Marta Seals [facility] CBC W/PLT COUNT & AUTO 2022-08-06 10:59:[address] [facility] CBC WITH PLATELET COUNT + 2022-08-06 10:59:00 Marta Seals [facility] MANUAL DIFF [facility] (MANUAL DIFFERENTIAL) 2022-08-06 10:59:[address] [facility] S [facility] PROTHROMBIN TIME/INR 2022-07-02 14:34:00 Marta Seals [facility] BASIC METABOLIC PANEL 2022-06-18 09:50:00 Marta Seals [facility] CBC W/PLT+MANUAL DIFF 2022-06-18 09:50:00 Marta Seals [facility] HEPATIC FUNCTION PANEL 2022-06-18 09:50:00 Marta Seals [facility] LACTATE DEHYDROGENASE 2022-06-18 09:50:[address] [facility] ([facility]) [facility] MAGNESIUM 2022-06-18 09:50:00 Marta Seals [facility] PROTHROMBIN TIME/INR 2022-06-18 09:50:00 Marta Seals [facility] CBC WITH PLATELET COUNT + 2022-06-18 09:50:00 Marta Seals [facility] MANUAL DIFF [facility] (MANUAL DIFFERENTIAL) 2022-06-18 09:50:00 Marta Seals [facility] PROTHROMBIN TIME/INR 2022-06-09 13:13:00 Marta Seals [facility] PROTHROMBIN TIME/INR 2022-06-02 00:00:00 Provider, Historical [facility] PROTHROMBIN TIME/INR 2022-05-29 00:00:00 Provider, Historical [facility] BASIC METABOLIC PANEL 2022-05-14 08:48:00 Marta Seals [facility] CBC W/PLT+MANUAL DIFF 2022-05-14 08:48:00 Marta Seals [facility] HEPATIC FUNCTION PANEL 2022-05-14 08:48:00 Marta Seals [facility] LACTATE DEHYDROGENASE 2022-05-14 08:48:[address] [facility] ([facility]) [facility] MAGNESIUM 2022-05-14 08:48:00 Marta Seals [facility] PROTHROMBIN TIME/INR 2022-05-14 08:48:00 Marta Seals [facility] CBC WITH PLATELET COUNT + 2022-05-14 08:48:00 Marta Seals [facility] MANUAL DIFF [facility] (MANUAL DIFFERENTIAL) 2022-05-14 08:48:00 Danielle Blair [facility] WOUND CULTURE + GRAM STAIN 2022-03-26 11:10:00 Marta Seals [facility] BASIC METABOLIC PANEL 2022-03-26 09:13:00 Marta Seals [facility] CBC W/PLT COUNT & AUTO 2022-03-26 09:13:[address] [facility] HEPATIC FUNCTION PANEL 2022-03-26 09:13:00 Marta Seals [facility] LACTATE DEHYDROGENASE 2022-03-26 09:13:[address] [facility] ([facility]) [facility] MAGNESIUM 2022-03-26 09:13:00 Marta Seals [facility] PROTHROMBIN TIME/INR 2022-03-26 09:13:00 Marta Seals [facility] CBC W/PLT COUNT & AUTO 2022-03-26 09:13:[address] [facility] PROTHROMBIN TIME/INR 2022-03-11 00:00:00 Amina Drummond [facility] APTT 2022-03-05 11:46:00 Lucero Shi [facility] APTT 2022-03-05 04:16:00 Jose Guadalupe Lucero [facility] BASIC METABOLIC PANEL 2022-03-05 04:16:00 Charisse Bond [facility] PROTHROMBIN TIME/INR 2022-03-05 04:16:00 Charisse Bond [facility] CBC W/PLT COUNT & AUTO 2022-03-05 04:16:[address] [facility] LACTATE DEHYDROGENASE 2022-03-05 04:16:00 Lucero Shi [facility] ([facility]) [facility] CBC W/PLT COUNT & AUTO 2022-03-05 04:16:[address] [facility] APTT 2022-03-04 21:52:00 Jose Guadalupe [facility] PLATELET COUNT 2022-03-04 12:16:00 Jose Guadalupe Lucero [facility] APTT 2022-03-04 12:16:00 Lucero Shi [facility] BASIC METABOLIC PANEL 2022-03-04 03:44:00 Charisse Bond [facility] PROTHROMBIN TIME/INR 2022-03-04 03:44:00 VarunCharisse [facility] CBC W/PLT COUNT & AUTO 2022-03-04 03:44:00 Varun Charisse [facility] LACTATE DEHYDROGENASE 2022-03-04 03:44:00 Lucero Shi [facility] (LDH) [facility] CBC W/PLT COUNT & AUTO 2022-03-04 03:44:00 Varun, Charisse [facility] PROTHROMBIN TIME/INR 2022-03-03 23:37:00 [facility] SARS-COV2/RT-PCR ([facility] & 2022-03-03 18:14:[address] [facility] REF LABS) [facility] BLOOD CULTURE 2022-03-03 18:08:00 [facility] CBC W/PLT COUNT & AUTO 2022-03-03 17:24:00 Huy Bryant [facility] HIGH SENSITIVITY TROPONIN 2022-03-03 17:24:00 Yu Bryant [facility] COMPREHENSIVE METABOLIC 2022-03-03 17:24:00 Huy Bryant [facility] LIPASE 2022-03-03 17:24:00 Huy Bryant [facility] CBC W/PLT COUNT & AUTO 2022-03-03 17:24:00 Huy Bryant [facility] CT ABDOMEN/PELVIS WITHOUT 2022-02-26 12:50:00 Gilda Prater [facility] IV CONTRAST [facility] WOUND CULTURE + GRAM STAIN 2022-02-26 10:32:00 Marta Seals [facility] BASIC METABOLIC PANEL 2022-02-26 08:20:00 Anton Marta Beck [facility] CBC W/PLT COUNT & AUTO 2022-02-26 08:20:[address] [facility] HEPATIC FUNCTION PANEL 2022-02-26 08:20:00 MeribriandaArabellacassius Muniz [facility] LACTATE DEHYDROGENASE 2022-02-26 08:20:[address] [facility] (LDH) [facility] MAGNESIUM 2022-02-26 08:20:00 MeribriandaArabellacassius Muniz [facility] PROTHROMBIN TIME/INR 2022-02-26 08:20:00 Servandoisiah Marta Muniz [facility] CBC W/PLT COUNT & AUTO 2022-02-26 08:20:[address] PROTHROMBIN TIME/INR 2022-02-18 00:00:00 Provider, [facility] 2D ECHO W/ DOPPLER 2022-01-29 11:08:00 Gilda Prater [facility] (CW/PW/COLOR) [facility] WOUND CULTURE + GRAM STAIN 2022-01-29 10:35:00 Marta Seals [facility] BASIC METABOLIC PANEL 2022-01-29 10:10:00 Marta Seals [facility] CBC W/PLT COUNT & AUTO 2022-01-29 10:10:[address] [facility] HEPATIC FUNCTION PANEL 2022-01-29 10:10:00 Marta Seals [facility] LACTATE DEHYDROGENASE 2022-01-29 10:10:[address] [facility] ([facility]) [facility] MAGNESIUM 2022-01-29 10:10:00 Marta Seals [facility] PROTHROMBIN TIME/INR 2022-01-29 10:10:00 Marta Seals [facility] CBC W/PLT COUNT & AUTO 2022-01-29 10:10:[address] [facility] PROTHROMBIN TIME/INR 2022-01-23 00:00:00 Provider, Historical [facility] BASIC METABOLIC PANEL 2022-01-15 00:00:00 Provider, Historical [facility] MAGNESIUM 2022-01-15 00:00:00 Provider, Historical [facility] HEPATIC FUNCTION PANEL 2022-01-15 00:00:00 Provider, Historical [facility] LACTATE DEHYDROGENASE 2022-01-15 00:00:00 Provider, Historical [facility] ([facility]) [facility] CBC W/PLT COUNT & AUTO 2022-01-15 00:00:00 Provider, Historical [facility] PROTHROMBIN TIME/INR 2022-01-15 00:00:00 Provider, Historical [facility] BASIC METABOLIC PANEL 2021-12-25 11:13:00 Marta Seals [facility] CBC W/PLT+MANUAL DIFF 2021-12-25 11:13:00 Marta Seals [facility] HEPATIC FUNCTION PANEL 2021-12-25 11:13:00 Marta Seals [facility] LACTATE DEHYDROGENASE 2021-12-25 11:13:[address] [facility] ([facility]) [facility] MAGNESIUM 2021-12-25 11:13:00 Marta Seals [facility] PROTHROMBIN TIME/INR 2021-12-25 11:13:00 Marta Seals [facility] CBC WITH PLATELET COUNT + 2021-12-25 11:13:00 Marta Seals [facility] MANUAL DIFF [facility] (CELLAVISION MANUAL DIFF) 2021-12-25 11:13:00 Marta Seals [facility] ECG 12-LEAD 2021-11-20 10:23:19 Unknown, Hl7 Doctor [facility] ECG 12-LEAD 2021-11-20 10:23:19 Unknown, Hl7 Doctor [facility] BASIC METABOLIC PANEL 2021-11-20 09:10:00 Marta Seals [facility] CBC W/PLT COUNT & AUTO 2021-11-20 09:10:[address] [facility] HEPATIC FUNCTION PANEL 2021-11-20 09:10:00 Marta Seals [facility] LACTATE DEHYDROGENASE 2021-11-20 09:10:[address] [facility] ([facility]) [facility] MAGNESIUM 2021-11-20 09:10:00 Marta Seals [facility] PROTHROMBIN TIME/INR 2021-11-20 09:10:00 Marta Seals [facility] CBC W/PLT COUNT & AUTO 2021-11-20 09:10:[address] [facility] ARRYTHMIA IMPLANT REPORT - 2021-11-20 00:00:00 Ena Drummond [facility] PACEMAKER/ICD REMOTE 2021-11-20 00:00:00 Matra Seals [facility] BASIC METABOLIC PANEL 2021-11-06 09:55:00 Marta Seals [facility] CBC W/PLT COUNT & AUTO 2021-11-06 09:55:[address] [facility] HEPATIC FUNCTION PANEL 2021-11-06 09:55:00 Marta Seals [facility] LACTATE DEHYDROGENASE 2021-11-06 09:55:[address] [facility] ([facility]) [facility] MAGNESIUM 2021-11-06 09:55:00 Marta Seals [facility] PROTHROMBIN TIME/INR 2021-11-06 09:55:00 Marta Seals [facility] CBC W/PLT COUNT & AUTO 2021-11-06 09:55:[address] [facility] BASIC METABOLIC PANEL 2021-10-30 09:09:00 Marta Seals [facility] CBC W/PLT COUNT & AUTO 2021-10-30 09:09:[address] [facility] HEPATIC FUNCTION PANEL 2021-10-30 09:09:00 Marta Seals [facility] LACTATE DEHYDROGENASE 2021-10-30 09:09:[address] [facility] (LDH) [facility] MAGNESIUM 2021-10-30 09:09:00 Marta Seals [facility] PROTHROMBIN TIME/INR 2021-10-30 09:09:00 Marta Seals [facility] CBC W/PLT COUNT & AUTO 2021-10-30 09:09:[address] [facility] BASIC METABOLIC PANEL 2021-10-23 09:15:00 Marta Seals [facility] CBC W/PLT+MANUAL DIFF 2021-10-23 09:15:00 Marta Seals [facility] HEPATIC FUNCTION PANEL 2021-10-23 09:15:00 Marta Seals [facility] LACTATE DEHYDROGENASE 2021-10-23 09:15:[address] [facility] ([facility]) [facility] MAGNESIUM 2021-10-23 09:15:00 Marta Seals [facility] PROTHROMBIN TIME/INR 2021-10-23 09:15:00 Marta Seals [facility] CBC WITH PLATELET COUNT + 2021-10-23 09:15:00 Marta Seals [facility] MANUAL DIFF [facility] (CELLAVISION MANUAL DIFF) 2021-10-23 09:15:00 ServandotonyMarta lamar diaz [facility] BLOOD GAS, VENOUS 2021-10-13 10:12:00 Courtney Hubbard [facility] LACTATE DEHYDROGENASE 2021-10-13 03:47:00 Megan Coe [facility] ([facility]) [facility] CBC W/PLT COUNT & AUTO 2021-10-13 03:47:[address] [facility] COMPREHENSIVE METABOLIC 2021-10-13 03:47:[address] [facility] PANEL [facility] PROTHROMBIN TIME/INR 2021-10-13 03:47:00 Ste[facility]Courtney [facility] MAGNESIUM 2021-10-13 03:47:[address] [facility] PHOSPHORUS 2021-10-13 03:47:00 Stevie, Courtney [facility] OXYGEN SATURATION, 2021-10-13 03:47:00 Stevie, Courtney [facility] MEASURED [facility] CBC W/PLT COUNT & AUTO 2021-10-13 03:47:[address] [facility] DIFFERENTIAL [facility] SARS-COV2/RT-PCR ([facility] & 2021-10-12 11:12:[address] [facility] REF LABS) [facility] LACTATE DEHYDROGENASE 2021-10-12 04:45:[address] (LDH) [facility] CBC W/PLT COUNT & AUTO 2021-10-12 04:45:[address] [facility] DIFFERENTIAL [facility] COMPREHENSIVE METABOLIC 2021-10-12 04:45:[address] [facility] PANEL [facility] PROTHROMBIN TIME/INR 2021-10-12 04:45:[address] [facility] MAGNESIUM 2021-10-12 04:45:[address] [facility] [address] [facility] PHOSPHORUS 2021-10-12 04:45:00 Stevie, Courtney [facility] OXYGEN SATURATION, 2021-10-12 04:45:00 Stevie, Courtney [facility] MEASURED [facility] CBC W/PLT COUNT & AUTO 2021-10-12 04:45:00 Stevie, [facility] DIFFERENTIAL [facility] OXYGEN SATURATION, 2021-10-11 19:04:[address] COMPREHENSIVE METABOLIC 2021-10-11 19:04:[address] XR CHEST 1 VIEW PORTABLE / 2021-10-11 07:41:00 Juan Luis Herrera [facility] BEDSIDE [facility] LACTATE DEHYDROGENASE 2021-10-11 06:16:00 Megan Coe [facility] ([facility]) [facility] CBC W/PLT COUNT & AUTO 2021-10-11 06:16:00 [facility]OLIC 2021-10-11 06:16:00 Jasmyne Hubbardtany I [facility] PROTHROMBIN TIME/INR 2021-10-11 06:16:00 Stevie [facility] S [facility] MAGNESIUM 2021-10-11 06:16:00 Stevie [facility] PHOSPHORUS 2021-10-11 [facility]:16[facility], 2021-10-11 06:16:00 Stevie [facility] CALCIUM, IONIZED 2021-10-11 06:16:00 [facility] CBC W/PLT COUNT & AUTO 2021-10-11 06:16:00 Stevie [facility] ELECTROLYTES 2021-10-10 16:42:00 [facility] LACTATE DEHYDROGENASE 2021-10-10 05:02:00 Megan Coe Mati [facility] ([facility]) [facility] CBC W/PLT COUNT & AUTO 2021-10-10 05:02:00 Stevie [facility] METABOLIC 2021-10-10 05:02:00 Stevie Courtney I [facility] PROTHROMBIN TIME/INR 2021-10-10 05:02:00 Stevie [facility] S [facility] MAGNESIUM 2021-10-10 05:02:00 Stevie [facility] PHOSPHORUS 2021-10-10 05:02:00 Stevie [facility] OXYGEN SATURATION, 2021-10-10 05:02:00 Stevie, Courtney [facility] MEASURED [facility] CBC W/PLT COUNT & AUTO 2021-10-10 05:02:00 Stevie, Courtney [facility] DIFFERENTIAL [facility] LACTATE DEHYDROGENASE 2021-10-09 03:15:[address] [facility] [facility] ([facility]) [facility] CBC W/PLT COUNT & AUTO 2021-10-09 03:15:00 Stevie, Courtney [facility] DIFFERENTIAL [facility] COMPREHENSIVE METABOLIC 2021-10-09 03:15:[address] [facility] PANEL [facility] PROTHROMBIN TIME/INR 2021-10-09 03:15:[address] [facility] S t kes [facility] MAGNESIUM 2021-10-09 03:15:[address] [facility] [address] [facility] PHOSPHORUS 2021-10-09 03:15:00 Stevie, Courtney [facility] OXYGEN SATURATION, 2021-10-09 03:15:[address] [facility] ME[facility]URED [facility] IRON, TIBC, % SAT. 2021-10-09 03:15:[address] [facility] FERRITIN[facility] 2021-10-09 03:15:00 Stevie, [facility] VITAMIN B12 AND FOLATE 2021-10-09 03:15:00 Stevie, Courtney [facility] CBC W/PLT COUNT & AUTO 2021-10-09 03:15:[address] [facility] DIFFERENTIAL [facility] OXYGEN SATURATION, 2021-10-08 17:39:00 Stevie, Courtney [facility] MEASURED [facility] LACTATE DEHYDROGENASE 2021-10-08 04:15:[address] [facility] [facility] ([facility]) [facility] OXYGEN SATURATION, 2021-10-08 04:15:[address] [facility] [facility] & AUTO 2021-10-08 04:15:[address] [facility] 2021-10-08 04:15:00 Jasmyne Hubbardtany I [facility] PROTHROMBIN TIME/INR 2021-10-08 04:15:00 Stevie Court[facility] MAGNESIUM 2021-10-08 04:15:00 Stevie [facility] PHOSPHORUS 2021-10-08 04:15:00 Stevie [facility] CALCIUM, IONIZED 2021-10-08 04:15:00 Blake Mast [facility] CBC W/PLT COUNT & AUTO 2021-10-08 04:15:00 Stevie [facility] LACTATE DEHYDROGENASE 2021-10-07 08:56:00 [facility] OXYGEN SATURATION, 2021-10-07 08:56:00 Megan Coe [facility] CBC W/PLT COUNT & AUTO 2021-10-07 08:56:00 Stevie [facility] METABOLIC 2021-10-07 08:56:00 Stevie Courtney I [facility] PROTHROMBIN TIME/INR 2021-10-07 08:56:[address] [facility] S t [facility] MAGNESIUM 2021-10-07 08:56:00 [facility] 2021-10-07 08:56:00 Stevie [facility] CBC W/PLT COUNT & AUTO 2021-10-07 08:56:00 Stevie [facility] PROTHROMBIN TIME/INR 2021-10-07 05:06:00 Carlos Hernandez [facility] XR CHEST 1 VIEW PORTABLE / 2021-10-07 04:33:00 Juan Luis Herrera [facility] BEDSIDE [facility] CALCIUM, IONIZED 2021-10-06 11:44:00 Malvi, [facility] PHOSPHORUS 2021-10-06 11:43:00 Malvi, [facility] LACTIC ACID, ARTERIAL 2021-10-06 05:26:00 Saravanan, [facility] OXYGEN SATURATION, 2021-10-06 05:26:00 Saravanan, [facility] MEASURED [facility] CBC W/PLT COUNT & AUTO 2021-10-06 05:26:00 Saravanan, [facility] DIFFERENTIAL [facility] CBC W/PLT COUNT & AUTO 2021-10-06 05:26:00 Saravanan, [facility] PHOSPHORUS 2021-10-06 05:25:00 [facility] LACTATE DEHYDROGENASE 2021-10-06 05:25:00 Saravanan, [facility] MAGNESIUM 2021-10-06 05:25:00 [facility] 2021-10-06 05:25:00 Saravanan, [facility] PROTHROMBIN TIME/INR 2021-10-06 05:25:00 Saravanan, [facility] CALCIUM, IONIZED 2021-10-05 23:59:00 [facility] 2021-10-05 23:59:00 Saravanan, [facility] PREPARE LEUKO-REDUCED RBC 2021-10-05 23:54:00 Juan Luis Herrera [facility] CALCIUM, IONIZED 2021-10-05 18:00:00 [facility] OXYGEN SATURATION, 2021-10-05 18:00:00 [facility] APTT 2021-10-05 18:00:00 Saravanan, [facility] CALCIUM, IONIZED 2021-10-05 13:35:00 Malviya, [facility] PHOSPHORUS 2021-10-05 13:35:00 Malmeghana, [facility] BASIC METABOLIC PANEL 2021-10-05 13:35:00 Marley [facility] SARS-COV2/RT-PCR ([facility] & 2021-10-05 10:33:[address] [facility] REF LABS) [facility] PHOSPHORUS 2021-10-05 10:31:00 Malviya, [facility] APTT 2021-10-05 10:31:00 Saravanan, Megan Thorne [facility] PHOSPHORUS 2021-10-05 03:29:00 Sophie, [facility] LACTATE DEHYDROGENASE 2021-10-05 03:29:00 Saravanan, Megan [facility] ([facility]) [facility] OXYGEN SATURATION, 2021-10-05 03:29:00 Megan Coe [facility] CBC W/PLT COUNT & AUTO 2021-10-05 03:29:[address] [facility] MAGNESIUM 2021-10-05 03:29:00 Marley [facility] BASIC METABOLIC PANEL 2021-10-05 03:29:00 Marley [facility] PROTHROMBIN TIME/INR 2021-10-05 03:29:00 Megan Coe [facility] APTT 2021-10-05 03:29:00 SaravananMegan fu [facility] CBC W/PLT COUNT & AUTO 2021-10-05 03:29:00 Megan Coe [facility] PHOSPHORUS 2021-10-04 20:04:00 Malvisergei, [facility] BASIC METABOLIC PANEL 2021-10-04 20:04:00 Marley [facility] APTT 2021-10-04 20:04:00 Megan Coe [facility] TRANSFUSE LEUKO-REDUCED 2021-10-04 15:30:00 HerreraLa Nena francodalila ALCON I [facility] RED BLOOD CELLS [facility] TYPE AND SCREEN, AUTOMATED 2021-10-04 13:09:00 Carlos Hernandez [facility] CALCIUM, IONIZED 2021-10-04 13:08:00 Malvisergei, [facility] PHOSPHORUS 2021-10-04 09:04:00 Malviya, [facility] APTT 2021-10-04 09:04:00 Saravanan, Megan [facility] POCT-GLUCOSE METER 2021-10-04 08:24:00 Carlos Hernandez [facility] XR CHEST 1 VIEW PORTABLE / 2021-10-04 04:29:00 Saravanan, Megan [facility] CALCIUM, IONIZED 2021-10-04 03:46:00 Malviya, [facility] PHOSPHORUS 2021-10-04 03:45:00 Malviya, [facility] LACTATE DEHYDROGENASE 2021-10-04 03:45:00 Saravanan, Megan [facility] ([facility]) [facility] OXYGEN SATURATION, 2021-10-04 03:45:00 Saravanan, Megan Thorne [facility] CBC W/PLT COUNT & AUTO 2021-10-04 03:45:00 Saravanan, Megan [facility] APTT 2021-10-04 03:45:00 Contreras Hernandez [facility] BASIC METABOLIC PANEL 2021-10-04 03:45:00 [facility] MAG[facility]UM 2021-10-04 03:45:00 Marley [facility] PROTHROMBIN TIME/INR 2021-10-04 03:45:00 Saravanan, Megan [facility] CBC W/PLT COUNT & AUTO 2021-10-04 03:45:00 [facility] 2021-10-04 03:45:00 [facility]ED 2021-10-03 18:44:00 [facility] OXY[facility]UR[facility], 2021-10-03 14:40:00 PreetDmitriy [facility] CALCIUM, IONIZED 2021-10-03 14:39:00 Malviya, [facility] BASIC METABOLIC PANEL 2021-10-03 14:39:00 Lexus Roach [facility] PHOSPHORUS 2021-10-03 14:39:00 [facility]CI[facility], IONIZED 2021-10-03 09:35:00 [facility] 2021-10-03 09:35:00 [facility] CHEST 1 VIEW PORTABLE / 2021-10-03 05:20:00 Megan Coe [facility] BASIC METABOLIC PANEL 2021-10-03 04:26:00 Malviya, [facility] MAGNESIUM 2021-10-03 04:26:00 [facility] PHOS[facility] 2021-10-03 04:26:00 [facility] LACTATE DEHYDROGENASE 2021-10-03 04:26:00 Megan Coe [facility] ([facility]) [facility] LACTIC ACID, ARTERIAL 2021-10-03 04:26:00 Megan Coe [facility] OXYGEN SATURATION, 2021-10-03 04:26:00 Megan Coe [facility] CBC W/PLT COUNT & AUTO 2021-10-03 04:26:00 Megan Coe [facility] APTT 2021-10-03 04:26:00 Contreras Hernandez [facility] PROTHROMBIN TIME/INR 2021-10-03 04:26:00 Saravanan, [facility] CALCIUM, IONIZED 2021-10-03 04:26:00 Malviya, [facility] CBC W/PLT COUNT & AUTO 2021-10-03 04:26:00 Saravanan, [facility] (CELLAVISION MANUAL DIFF) 2021-10-03 04:26:00 Saravanan, [facility] BASIC METABOLIC PANEL 2021-10-02 16:11:00 Malviya, [facility] PHOSPHORUS 2021-10-02 16:11:00 Malvi, [facility] CALCIUM, IONIZED 2021-10-02 16:11:00 Malvi, [facility] CALCIUM, IONIZED 2021-10-02 12:27:00 Malvi, [facility] POTASSIUM 2021-10-02 12:27:00 Saravanan, [facility] MAGNESIUM 2021-10-02 12:27:00 Saravanan, [facility] CALCIUM, IONIZED 2021-10-02 04:22:00 Malviya, [facility] PHOSPHORUS 2021-10-02 04:22:00 Saravanan, [facility] LACTATE DEHYDROGENASE 2021-10-02 04:22:00 Saravanan, [facility] LACTIC ACID, ARTERIAL 2021-10-02 04:22:00 Saravanan, [facility] OXYGEN SATURATION, 2021-10-02 04:22:00 Saravanan, [facility] MEASURED [facility] CBC W/PLT COUNT & AUTO 2021-10-02 04:22:00 Saravanan, [facility] PROTHROMBIN TIME/INR 2021-10-02 04:22:00 Saravanan, [facility] BASIC METABOLIC PANEL 2021-10-02 04:22:00 Malviya, [facility] MAGNESIUM 2021-10-02 04:22:00 Malvisergei, [facility] APTT 2021-10-02 04:22:00 Contreras Hernandez [facility] CBC W/PLT COUNT & AUTO 2021-10-02 04:22:00 Megan Coe [facility] XR CHEST 1 VIEW PORTABLE / 2021-10-02 03:15:00 Megan Coe [facility] BASIC METABOLIC PANEL 2021-10-01 20:37:00 [facility] 2021-10-01 20:37:00 [facility] PHOSPHORUS 2021-10-01 20:37:00 [facility] CALCIUM, IONIZED 2021-10-01 18:08:00 [facility] POTASSIUM 2021-10-01 18:08:00 [facility]IUM 2021-10-01 18:08:00 [facility]US 2021-10-01 18:08:00 Blake Mast [facility] CALCIUM, IONIZED 2021-10-01 12:35:00 [facility] BASIC METABOLIC PANEL 2021-10-01 12:35:00 Malvi, [facility] MAGNESIUM 2021-10-01 12:35:00 Malvi, [facility] PHOSPHORUS 2021-10-01 12:35:00 [facility] PHOSPHORUS 2021-10-01 04:25:00 Megan Coe [facility] LACTATE DEHYDROGENASE 2021-10-01 04:25:00 Megan Coe [facility] ([facility]) [facility] LACTIC ACID, ARTERIAL 2021-10-01 04:25:00 Megan Coe [facility] CBC W/PLT COUNT & AUTO 2021-10-01 04:25:00 [facility] PROT[facility]/INR 2021-10-01 04:25:00 Saravanan [facility] BASIC METABOLIC PANEL 2021-10-01 04:25:00 Malmeghana [facility] MAGNESIUM 2021-10-01 04:25:00 Malmeghana, [facility] CALCIUM, IONIZED 2021-10-01 04:25:00 [facility] OXYGEN SATURATION, 2021-10-01 04:25:00 Saravanan [facility] APTT 2021-10-01 04:25:00 Saravanan [facility] CBC W/PLT COUNT & AUTO 2021-10-01 04:25:00 [facility], [facility] 1 VIEW PORTABLE / 2021-10-01 04:02:00 Saravanan Megan [facility] BASIC METABOLIC PANEL 2021-09-30 23:37:00 [facility]NES[facility]UM 2021-09-30 23:37:00 [facility] PHOSPHORUS 2021-09-30 23:37:00 [facility] CALCIUM, IONIZED 2021-09-30 23:37:00 [facility]OL[facility] PAN[facility] 2021-09-30 17:27:00 Malchauncey, [facility] MAGNESIUM 2021-09-30 17:27:00 Malchauncey, [facility] PHOSPHORUS 2021-09-30 17:27:00 [facility] CALCIUM, IONIZED 2021-09-30 17:27:00 [facility] OXYGEN SATURATION, 2021-09-30 17:27:00 [facility] BASIC METABOLIC PANEL 2021-09-30 13:16:00 [facility]NES[facility]UM 2021-09-30 13:16:00 [facility] PHOSPHORUS 2021-09-30 13:16:00 [facility] CALCIUM, IONIZED 2021-09-30 13:16:00 [facility] OXYGEN SATURATION, 2021-09-30 13:16:00 Sophie [facility] PHOSPHORUS 2021-09-30 05:57:00 Saravanan [facility] LACTATE DEHYDROGENASE 2021-09-30 05:57:00 Saravanan [facility] BASIC METABOLIC PANEL 2021-09-30 05:57:00 Anupmeghana [facility] MAGNESIUM 2021-09-30 05:57:00 [facility] POCT-GLUCOSE METER 2021-09-30 05:56:00 Kwadwo [facility] XR CHEST 1 VIEW PORTABLE / 2021-09-30 03:34:00 [facility] LACT[facility] ACID, ARTERIAL 2021-09-30 03:15:00 Saravanan, [facility] OXYGEN SATURATION, 2021-09-30 03:15:00 Megan Coe [facility] CBC W/PLT COUNT & AUTO 2021-09-30 03:15:00 Saravanan [facility] APTT 2021-09-30 03:15:00 Saravanan [facility] PROTHROMBIN TIME/INR 2021-09-30 03:15:00 Saravanan [facility] CALCIUM, IONIZED 2021-09-30 03:15:00 Sophie [facility] CBC W/PLT COUNT & AUTO 2021-09-30 03:15:[address] [facility] BASIC METABOLIC PANEL 2021-09-30 00:02:00 [facility]UM 2021-09-30 00:02:00 [facility] PHOSPHORUS 2021-09-30 00:02:00 [facility] CALCIUM, IONIZED 2021-09-30 00:02:00 [facility] APTT 2021-09-29 20:38:00 Megan Coe Mati [facility] BASIC METABOLIC PANEL 2021-09-29 17:39:00 [facility]UM 2021-09-29 17:39:00 [facility] PHOSPHORUS 2021-09-29 17:39:00 [facility] CALCIUM, IONIZED 2021-09-29 17:39:00 [facility] OXYGEN SATURATION, 2021-09-29 14:33:00 Liliana Menard [facility] 2D ECHO W/ DOPPLER 2021-09-29 13:41:26 Liliana Menard [facility] (CW/PW/COLOR) [facility] BASIC METABOLIC PANEL 2021-09-29 12:11:00 [facility]UM 2021-09-29 12:11:00 [facility] PHOSPHORUS 2021-09-29 12:11:00 [facility] CALCIUM, IONIZED 2021-09-29 12:11:00 [facility] APTT 2021-09-29 12:11:00 Megan Coe Mati [facility] CALCIUM, IONIZED 2021-09-29 04:20:00 Malviya, [facility] LACTIC ACID, ARTERIAL 2021-09-29 03:48:00 Saravanan, [facility] BLOOD GAS, ARTERIAL 2021-09-29 03:48:00 Saravanan, [facility] PHOSPHORUS 2021-09-29 03:47:00 Saravanan, [facility] LACTATE DEHYDROGENASE 2021-09-29 03:47:00 Saravanan, [facility] OXYGEN SATURATION, 2021-09-29 03:47:00 Saravanan, Megan [facility] CBC W/PLT COUNT & AUTO 2021-09-29 03:47:00 Saravanan, [facility] COMPREHENSIVE METABOLIC 2021-09-29 03:47:00 [facility] CREATINE KINASE (CK) 2021-09-29 03:47:[address] [facility] MAGN[facility]UM 2021-09-29 03:47:00 Sophie [facility] CBC W/PLT COUNT & AUTO 2021-09-29 03:47:00 [facility] PROT[facility]/INR 2021-09-29 03:16:00 Saravanan, [facility] APTT 2021-09-29 03:16:00 [facility] PORT[facility] / 2021-09-29 01:13:00 Saravanan, Megan [facility] BASIC METABOLIC PANEL 2021-09-29 00:07:00 Sophie [facility] MAGNESIUM 2021-09-29 00:07:00 Sophie [facility] PHOSPHORUS 2021-09-29 00:07:00 Belkis [facility] CALCIUM, IONIZED 2021-09-29 00:07:00 Sophie [facility] POCT-GLUCOSE METER 2021-09-28 21:13:00 Cipriano Kemp [facility] APTT 2021-09-28 19:36:00 SaravananMegan [facility] BASIC METABOLIC PANEL 2021-09-28 18:41:00 Malvi, [facility] MAGNESIUM 2021-09-28 18:41:00 Malviya, [facility] PHOSPHORUS 2021-09-28 18:41:00 Malviya, [facility] CALCIUM, IONIZED 2021-09-28 18:41:00 [facility] SARS-COV2/RT-PCR ([facility] & 2021-09-28 16:22:00 Saravanan, Megan Beck [facility] REF LABS) [facility] PHOSPHORUS 2021-09-28 15:59:00 Malvi, [facility] CALCIUM, IONIZED 2021-09-28 15:59:00 Malvi, [facility] LACTIC ACID, VENOUS 2021-09-28 15:59:00 Blake Mast [facility] APTT 2021-09-28 12:49:00 Saravanan, Megan [facility] BLOOD GAS, ARTERIAL 2021-09-28 08:20:00 Saravanan, [facility] CALCIUM, IONIZED 2021-09-28 08:18:00 Malviya, [facility] MAGNESIUM 2021-09-28 08:18:00 Saravanan, Megan Mati [facility] OXYGEN SATURATION, 2021-09-28 08:18:00 Saravanan, Megan Mati [facility] BASIC METABOLIC PANEL 2021-09-28 08:18:00 Malvi, [facility] BLOOD GAS, ARTERIAL 2021-09-28 03:30:00 Saravanan, [facility] CALCIUM, IONIZED 2021-09-28 03:29:00 [facility] PHOSPHORUS 2021-09-28 03:29:00 [facility], [facility] LACTATE DEHYDROGENASE 2021-09-28 03:29:00 [facility] LACTIC ACID, ARTERIAL 2021-09-28 03:29:00 Saravanan, [facility] OXYGEN SATURATION, 2021-09-28 03:29:00 Saravanan, Megan [facility] CBC W/PLT COUNT & AUTO 2021-09-28 03:29:00 [facility] COMPREHENSIVE METABOLIC 2021-09-28 03:29:00 Blake Mast [facility] PROTHROMBIN TIME/INR 2021-09-28 03:29:00 Saravanan, Megan [facility] MAGNESIUM 2021-09-28 03:29:00 Sophie [facility] APTT 2021-09-28 03:29:00 Saravanan, Megan [facility] CBC W/PLT COUNT & AUTO 2021-09-28 03:29:00 [facility], [facility] 1 VIEW PORTABLE / 2021-09-28 03:12:00 [facility] OXY[facility], 2021-09-27 20:26:00 Donald Barbosa [facility] APTT 2021-09-27 20:26:00 Saravanan, Megan [facility] XR CHEST 1 VIEW PORTABLE / 2021-09-27 20:04:00 Donald Barbosa [facility] BASIC METABOLIC PANEL 2021-09-27 18:48:00 Sophie [facility] MAGNESIUM 2021-09-27 18:48:00 Belkis [facility] PHOSPHORUS 2021-09-27 18:48:00 [facility] CALCIUM, IONIZED 2021-09-27 18:48:00 Malvi, [facility] MAGNESIUM 2021-09-27 13:45:00 Malvi, [facility] CALCIUM, IONIZED 2021-09-27 13:45:00 Malvi, [facility] MAGNESIUM 2021-09-27 13:38:00 [facility], [facility] CALCIUM, IONIZED 2021-09-27 13:38:00 [facility] BASIC METABOLIC PANEL 2021-09-27 13:38:00 [facility], [facility] PHOSPHORUS 2021-09-27 13:38:00 [facility], [facility] APTT 2021-09-27 13:38:00 Saravanan, [facility] CALCIUM, IONIZED 2021-09-27 04:34:00 Pro [facility] BLOOD GAS, ARTERIAL 2021-09-27 03:43:00 Saravanan, [facility] MAGNESIUM 2021-09-27 03:40:00 Malvi, [facility] PHOSPHORUS 2021-09-27 03:40:00 [facility] LACTATE DEHYDROGENASE 2021-09-27 03:40:00 Saravanan, [facility] LACTIC ACID, ARTERIAL 2021-09-27 03:40:00 Saravanan, [facility] OXYGEN SATURATION, 2021-09-27 03:40:00 Saravanan, [facility] CBC W/PLT COUNT & AUTO 2021-09-27 03:40:00 Saravanan, [facility] COMPREHENSIVE METABOLIC 2021-09-27 03:40:00 Pro [facility] PROTHROMBIN TIME/INR 2021-09-27 03:40:00 Saravanan, [facility] CBC W/PLT COUNT & AUTO 2021-09-27 03:40:00 Megan Coe [facility] XR CHEST 1 VIEW PORTABLE / 2021-09-27 03:30:00 Megan Coe [facility] PREPARE LEUKO-REDUCED RBC 2021-09-26 23:54:00 Juan Luis Herrera [facility] MAGNESIUM 2021-09-26 20:41:00 Saravanan Megan [facility] PHOSPHORUS 2021-09-26 20:41:[facility] CALCI[facility], IONIZED 2021-09-26 20:41:00 Terry Aquino [facility] BASIC METABOLIC PANEL 2021-09-26 20:41:[address] [facility] ELECTROL[facility]TES 2021-09-26 16:41:00 Pro [facility] MAGNESIUM 2021-09-26 16:41:00 [facility] PHOSPHORUS 2021-09-26 16:41:00 [facility] CALCIUM, IONIZED 2021-09-26 16:41:00 [facility] BASIC METABOLIC PANEL 2021-09-26 16:41:00 Pro [facility] BASIC METABOLIC PANEL 2021-09-26 11:56:00 Belkis [facility] MAGNESIUM 2021-09-26 11:56:00 [facility] PHOSPHORUS 2021-09-26 11:56:00 [facility] CALCIUM, IONIZED 2021-09-26 11:56:00 [facility] LACTATE DEHYDROGENASE 2021-09-26 04:07:00 [facility] LACTIC ACID, ARTERIAL 2021-09-26 04:07:00 Saravanan [facility] BLOOD GAS, ARTERIAL 2021-09-26 04:07:00 Saravanan, [facility] OXYGEN SATURATION, 2021-09-26 04:07:00 Megan Coe [facility] CBC W/PLT COUNT & AUTO 2021-09-26 04:07:00 Megan Coe [facility] COMPREHENSIVE METABOLIC 2021-09-26 04:07:00 Blake Mast [facility] MAGNESIUM 2021-09-26 04:07:[address] [facility] PHOSPH[facility]US 2021-09-26 04:07:00 Senussnickie [facility] CBC W/PLT COUNT & AUTO 2021-09-26 04:07:00 Saravanan [facility] PROTHROMBIN TIME/INR 2021-09-26 04:06:00 Saravanan [facility] CALCIUM, IONIZED 2021-09-26 04:06:00 Megan Coe [facility] XR CHEST 1 VIEW PORTABLE / 2021-09-26 03:39:00 [facility] TRANSF[facility] PLASMA 2021-09-09 17:30:00 Ashia Cortes [facility] TTE COMPLETE, W CONTRAST, 2021-01-16 13:15:00 Brenda Shell [facility] W DOPPLER ([id number]) BASIC METABOLIC PANEL 2021-01-16 09:30:00 Elissa Johansen [facility] B NATRIURETIC PEPTIDE 2021-01-16 09:30:00 Ken Shellammed [facility] ESTIMATED GFR 2021-01-16 09:30:00 Elissa Johansen [facility] XR LUMBAR SPINE 2 OR 3 VW 2021-01-16 00:56:00 Wesley Álvarez [facility] CT ANGIOGRAM PE CHEST 2021-01-15 19:20:00 Sumaya [facility] HC COMPLETE BLD COUNT 2021-01-15 09:30:00 [facility] W/AUTO DIFF BASIC METABOLIC PANEL 2021-01-15 09:30:00 [facility] ESTIMATED GFR 2021-01-15 09:30:00 [facility] HC COMPLETE BLD COUNT 2021-01-14 09:54:00 [facility]/AUTO DIFF BASIC METABOLIC PANEL 2021-01-14 09:54:00 [facility] ESTIMATED GFR 2021-01-14 09:54:00 [facility] TROPONIN 2021-01-13 08:18:00 [facility] HC COMPLETE BLD COUNT 2021-01-13 08:18:00 [facility]/AUTO DIFF BASIC METABOLIC PANEL 2021-01-13 08:18:00 [facility] LIPID PANEL 2021-01-13 08:18:00 [facility] THYROID STIMULATING 2021-01-13 08:18:00 [facility] HORMONE T4, FREE 2021-01-13 08:18:00 [facility] ESTIMATED GFR 2021-01-13 08:18:00 [facility] TROPONIN 2021-01-13 03:19:00 [facility] COVID-19 QUALITATIVE 2021-01-13 01:50:00 Manav Monahan [facility] RT-PCR XR CHEST 1 VW PORTABLE 2021-01-13 00:56:31 [facility] HC COMPLETE BLD COUNT 2021-01-13 00:38:00 [facility] COMPREHENSIVE METABOLIC 2021-01-13 00:38:00 [facility] PANEL [facility] TROPONIN 2021-01-13 00:38:00 [facility] B NATRIURETIC PEPTIDE 2021-01-13 00:38:00 [facility] PARTIAL THROMBOPLASTIN 2021-01-13 00:38:00 [facility] TIME (PTT[facility] PROTHROMBIN TIME WITH INR 2021-01-13 00:38:00 [facility]FR 2021-01-13 00:38:00 Dominga Herrera [facility] ECG 12-LEAD 2021-01-13 00:18:21 [facility] LEVEL 2020-12-30 08:41:00 [facility] BASIC METABOLIC PANEL 2020-12-30 08:41:00 [facility] ESTIMATED GFR 2020-12-30 08:41:00 [facility] BASIC METABOLIC PANEL 2020-12-29 11:15:00 [facility] ESTIMATED GFR 2020-12-29 11:15:00 [facility] MAGNESIUM LEVEL 2020-12-29 09:00:00 [facility] BASIC METABOLIC PANEL 2020-12-29 09:00:00 [facility] ESTIMATED GFR 2020-12-29 09:00:00 [facility] B NATRIURETIC PEPTIDE 2020-12-28 15:00:00 [facility] MAGNESIUM LEVEL 2020-12-28 13:31:00 [facility] BASIC METABOLIC PANEL 2020-12-28 13:31:00 [facility] ESTIMATED GFR 2020-12-28 13:31:00 [facility] B NATRIURETIC PEPTIDE 2020-12-27 10:10:00 Brenda Shell [facility] HC COMPLETE BLD COUNT 2020-12-26 10:32:00 [facility] W/AUTO DIFF BASIC METABOLIC PANEL 2020-12-26 10:32:00 [facility] ESTIMATED GFR 2020-12-26 10:32:00 [facility] HC COMPLETE BLD COUNT 2020-12-25 10:30:00 [facility] W/AUTO DIFF BASIC METABOLIC PANEL 2020-12-25 09:00:00 [facility] DIGOXIN LEVEL 2020-12-25 09:00:00 Brenda Shell ESTIMATED GFR 2020-12-25 09:00:00 [facility] HC COMPLETE BLD COUNT 2020-12-24 08:00:00 [facility] W/AUTO DIFF BASIC METABOLIC PANEL 2020-12-24 08:00:00 [facility] ESTIMATED GFR 2020-12-24 08:00:00 [facility] TROPONIN 2020-12-24 07:05:00 [facility] LIPID PANEL 2020-12-24 07:05:00 [facility] THYROID STIMULATING 2020-12-24 07:05:00 [facility] HORMONE T4, FREE 2020-12-24 07:05:00 [facility] TROPONIN 2020-12-24 05:16:00 [facility] ECG ED PRELIMINARY 2020-12-24 02:01:48 [facility] INTERPRETATION TROPONIN 2020-12-24 01:22:00 [facility] XR CHEST 1 VW PORTABLE 2020-12-23 19:31:00 [facility]-19 QUALITATIVE 2020-12-23 19:14:00 [facility] HC COMPLETE BLD COUNT 2020-12-23 19:14:00 Dwight Williamson [facility] W/AUTO DIFF COMPREHENSIVE METABOLIC 2020-12-23 19:14:00 Dwight Williamson [facility] PANEL MAGNESIUM LEVEL 2020-12-23 19:14:00 WilliamsonDwight davis [facility] PHOSPHORUS LEVEL 2020-12-23 19:14:00 Williamson, [facility] B NATRIURETIC PEPTIDE 2020-12-23 19:14:00 [facility]ight [facility] TROPONIN 2020-12-23 19:14:00 [facility] VENOUS BLOOD GAS 2020-12-23 19:14:00 [facility]ight [facility] ESTIMATED GFR 2020-12-23 19:14:00 [facility] ECG 12-LEAD 2020-12-23 18:33:16 [facility] Plan of Care Planned Activity Planned Date Details Comments Source Future Scheduled 2032-09-[address] [facility] 00:[facility]00 malignant neoplasm of Medica l Center colon (procedure) [code = 657772473] Future Scheduled 2032-09-[address] [facility] 00:00[facility]00 [facility] colon (procedure) [code = 270170371] Future Scheduled 2030-05-06 DTAP/TDAP/TD VACCINES [facility] 00:00:00 (2 - Td or Tdap) [code Medic al Center = DTAP/TDAP/TD VACCINES (2 - Td or Tdap)] Future Scheduled 2025-09-[address] [facility] 00:00:00 (procedure) [code = Medical Center 63823045] Future Scheduled 2023-09-[address] [facility] Test 00:00:00 Counseling and Medical Cente r Screening (12+) [code = Tobacco Cessation Counseling and Screening (12+)] Future Scheduled 2022-06-04 INFLUENZA VACCINE (#1) [facility]00 [code = INFLUENZA Medical Ce nter VACCINE (#1)] Future Scheduled 2021-10-[address] [facility] Test 00:00:00 (12+) [code = Medical Center DEPRESSION SCREENING (12+)] Future Scheduled 2021-09-01 COVID-19 VACCINE (1) [facility] Test 09:41:23 [code = COVID-19 VACCINE (1)] Future Scheduled 2021-09-01 Hepatitis C screening [facility] Test 09:41:23 (procedure) [code = 983930250] Future Scheduled 2021-09-01 [facility] 09:41:23 [code = COLONOSCOPY SCREENING] Future Scheduled 2021-09-01 SHINGLES VACCINES (#[facility]) [facility] 09:41:23 [code = SHINGLES VACCINES (#1)] Future Scheduled 2021-09-01 INFLUENZA VACCINE [facility] 09:41:23 [code = INFLUENZA VACCINE] Future Scheduled 2021 SHINGLES VACCINES ([address] [facility] Test 00:00:00 of 2) [code = SHINGLES Medic al Center VACCINES (1 of 2)] Future Scheduled [address] [facility] Test 00:00:00 0-64 YRS (1 - PCV) Medical C enter [code = PNEUMOCOCCAL VACCINE 0-64 YRS (1 - PCV)] Future Scheduled 1971 COVID-19 VACCINE (#1) [facility] 00:00:00 [code = COVID-[address] VACCINE (#1)] Future Scheduled [address] [facility] 00:00:00 (combo) [code = CT Medical C enter Colonography (combo)] Future Scheduled [address] [facility] 00:00:00 malignant neoplasm of Medica l Center colon (procedure) [code = 360898254] Future Scheduled [address] [facility] 00:00:00 malignant neoplasm of Medica l Center colon (procedure) [code = 834579060] Future Scheduled 1971 Sigmoidoscopy [code = [facility] 00:[facility] Sigmoidoscopy] Medical Cente r Encounters Start End Encounter Admission Attending Care Care Encounter Source Date/Time Date/Time Type Type Clinicians Facility Department ID 2022-10-15 2022-10-15 Outpatient [facility] [id number] SLE 00:00:00 00:00:00 MARTA 2022-09-25 2022-09-25 [facility] [id number] 00:[facility]:00 00:00:00 visit [facility] 2022-09-24 2022-09-24 Orders Servandoisiah [facility] [id number] 00:00:00 00:00:00 Only Marta Muniz [facility] 2022-09-21 2022-09-21 Telephone Bereket [facility] [id number] 00:00:00 00:00:00 [facility] 2022-09-21 2022-09-21 Anti-coag Bereket [facility] [id number] 00:00:00 00:00:00 visit [facility] 2022-09-19 2022-09-19 Telephone Elsa Scanlon [facility] [id number] 00:00[facility]00 00:00:00 [facility] 2022-08-30 2022-09-18 Inpatient ER JENNY, RODOLFO Transplant [id number] [facility] 23:36:00 15:42:00 JERSON 2022-08-30 2022-09-18 [facility] [id number] 23:36:00 15:42:[address] [facility] Peter [place] 2022-09-18 2022-09-18 Telephone Bereket [facility] [id number] 00:00:00 00:00:00 [facility] 2022-09-18 2022-09-18 Outside Bereket [facility] [id number] 00:00:00 00:00:00 Orders [facility] 2022-09-18 2022-09-18 Abstract Wilber Sarah [facility] [id number] 00:00:00 00:00:00 [facility] 2022-09-14 2022-09-14 Surgery Shanae [facility] [id number] 16:00:00 17:00:00 [facility] 2022-09-14 2022-09-14 Anesthesia Johnnie Osorio [facility] [id number] 15:30:00 16:04:00 Event Colin Herrera [facility] 2022-09-11 2022-09-11 Anesthesia Anisa Rinaldi [facility] [id number] [facility] 14:43:00 15:15:00 Event Colin Herrera [facility] 2022-09-11 2022-09-11 Surgery Shanae, [facility] [id number] 13:00[facility]00 14[facility]00[facility]00 [facility] 2022-09-10 2022-09-10 Outpatient ANTON [facility] [id number] SLE 00:00:00 00:00:00 MARTA 2022-09-03 2022-09-03 Abstract Sarah Merino [facility] [id number] 00:00:00 00:00:00 [facility] 2022-08-30 2022-08-30 Outpatient [facility] [id number] [facility] 23:36:00 23:59:00 [facility] 2022-08-30 2022-08-30 Outpatient [facility] [id number] [facility] 00:00:00 23:59:00 [facility] 2022-08-30 2022-08-30 Documentat Dmitry [facility] [id number] 00:00:00 00:00:00 ion [facility] 2022-08-30 2022-08-30 Telephone Dmitry [facility] [id number] 00:00:00 00:00:00 [facility] 2022-08-30 2022-08-30 Orders [facility] [id number] 00:00:00 00:00:00 Only [facility] 2022-08-30 2022-08-30 Travel [facility] [id number] [facility] 00:00:00 00:00:00 [facility] 2022-08-21 2022-08-21 Documentat Capo, Elsa [facility] [id number] [facility] 00:00:00 00:00:00 ion [facility] 2022-08-15 2022-08-15 Refill Anton [facility] [id number] 00:00:00 00:00:00 [facility] 2022-08-06 2022-08-06 Clinic Anton [facility] [id number] 11:15:00 11:30:00 Visit [facility] 2022-08-06 2022-08-06 Outpatient JOSH SEALS SLE SLE [id number] SLE 09:35:00 09:35:00 VIENNA 2022-08-06 2022-08-06 Telephone CapoElsa varma [facility] [id number] 00:00:00 00:00:00 [facility] 2022-08-06 2022-08-06 Telephone Capo, [facility] [id number] 00:00:00 00:00:00 [facility] 2022-08-05 2022-08-05 Documentat Dmitry [facility] [id number] 00:00:00 00:00:00 [facility] 2022-08-03 2022-08-03 Outpatient JOSH SEALS, [facility] SLE [id number] SLE 00:00:00 00:00:00 VIENNA 2022-07-16 2022-07-16 Outpatient JOSH SEALS, [facility] SLEH [id number] [facility] 00:00:00 00:00:00 VIENNA 2022-07-02 2022-07-02 Mau Seals [facility] [id number] 00:00:00 00:00:00 Only [facility] 2022-06-30 2022-06-30 Anti-kam Nelson [facility] [id number] 00:00:00 00:00:00 visit Alejandro Alejandro [facility] 2022-06-19 2022-06-19 Telephone Capo, [facility] [id number] 00:00:00 00:00:00 [facility] 2022-06-18 2022-06-18 Clinic Anton [facility] [id number] 10:45:00 11:00:00 Visit Marta Mckeonnt [facility] 2022-06-18 2022-06-18 [facility] [id number] SLE 09:43:42 09:43:42 VIENNA 2022-06-18 2022-06-18 Documentat Capo, [facility] [id number] [facility] 00:00:00 00:00:00 ion [facility] 2022-06-18 2022-06-18 Orders Capo, [facility] [id number] 00:00:00 00:00:00 Only [facility] 2022-06-11 2022-06-11 Outpatient JOSH SEALS, [facility] [id number] SLE 00:00:00 00:00:00 VIENNA 2022-06-11 2022-06-11 Telephone Capo, [facility] [id number] 00:00:00 00:00:00 [facility] 2022-06-10 2022-06-10 Telephone Capo, [facility] [id number] 00:00:00 00:00:00 [facility] 2022-06-10 2022-06-10 Telephone Sarah Merino [facility] [id number] 00:00:00 00:00:00 [facility] 2022-06-10 2022-06-10 Anti-coag Capo, [facility] [id number] 00:00:00 00:00:00 visit [facility] 2022-06-10 2022-06-10 Documentat Andres [facility] [id number] 00:00:00 00:00:00 ion [facility] 2022-06-09 2022-06-09 Orders Anton, [facility] [id number] 00:00:00 00:00:00 Only Marta Muniz [facility] 2022-06-02 2022-06-02 Orders Andres, [facility] [id number] 00:00:00 00:00:00 Only [facility] 2022-06-02 2022-06-02 Anti-coag Dmitry [facility] [id number] 00:00:00 00:00:00 visit [facility] 2022-06-02 2022-06-02 Telephone Dmitry [facility] [id number] 00:00:00 00:00:00 [facility] 2022-06-02 2022-06-02 Abstract WilberDianajulisa [facility] [id number] 00:00:00 00:00:00 [facility] 2022-05-29 2022-05-29 Telephone Elsa Scanlon [facility] [id number] 00:00:00 00:00:00 [facility] 2022-05-29 2022-05-29 Telephone Bereket [facility] [id number] 00:00:00 00:00:00 [facility] 2022-05-29 2022-05-29 Anand Garg [facility] [id number] 00:00:00 00:00:00 ion [facility] 2022-05-29 2022-05-29 Anti-coag Bereket [facility] [id number] 00:00:00 00:00:00 visit [facility] 2022-05-28 2022-05-28 Anand Garg [facility] [id number] 00:00:00 00:00:00 ion [facility] 2022-05-14 2022-05-14 Clinic Anton [facility] [id number] 10:45:00 11:00:00 Visit Marta Muniz [facility] 2022-05-14 2022-05-14 Outpatient RODOLFO AGUIRRE [facility] [id number] SLE 08:44:14 08:44:14 VIENNA 2022-05-07 2022-05-07 Outpatient OJSH SEALS [facility] SLE [id number] SLE 00:00:00 00:00:00 VIENNA 2022-05-07 2022-05-07 Telephone Capo [facility] [id number] 00:00:00 00:00:00 [facility] 2022-05-06 2022-05-06 Telephone Omar, [facility] [id number] 00:00:00 00:00:00 Alejandro Alejandro [facility] 2022-04-23 2022-04-23 Outpatient JOSH SEALS [facility] [id number] SLE 00:00:00 00:00:00 VIENNA 2022-04-21 2022-04-21 [facility] [id number] 00:00:00 00:00:00 [facility] 2022-04-20 2022-04-20 [facility] [id number] 00:00:00 00:00:00 [facility] 2022-04-08 2022-04-08 Telephone Capo [facility] [id number] 00:00:00 00:00:00 [facility] 2022-04-08 2022-04-08 [facility] [id number] 00:00:00 00:00:00 Only [facility] 2022-04-02 2022-04-02 Zelda Scanlon [facility] [id number] 00:00:00 00:00:00 [facility] 2022-04-01 2022-04-01 Telephone Ruth [facility] [id number] 00:00:00 00:00:00 [facility] 2022-03-26 2022-03-26 Clinic Anton [facility] [id number] 10:00:00 10:15:00 Visit [facility] 2022-03-26 2022-03-26 Outpatient ANTON [facility] [id number] SLE 09:08:55 09:08:55 MARTA 2022-03-24 2022-03-24 Telephone Dale [facility] [id number] 00:00:00 00:00:00 [facility] 2022-03-12 2022-03-12 Abstract Dale [facility] [id number] 00:00:00 00:00:00 [facility] 2022-03-12 2022-03-12 Anti-coag Msesi [facility] [id number] 00:00:00 00:00:00 visit [facility] 2022-03-10 2022-03-10 Telephone CapoElsa [facility] [id number] 00:00:00 00:00:00 [facility] 2022-03-06 2022-03-06 Telephone Bereket [facility] [id number] 00:00:00 00:00:00 [facility] 2022-03-06 2022-03-06 Anti-coag Bereket [facility] [id number] 00:00:00 00:00:00 visit [facility] 2022-03-03 2022-03-05 Inpatient ER RODOLFO BOND Emergency [id number] SLE 17:12:00 16:27:00 CHARISSE 2022-03-03 2022-03-05 Hospital Huy Bryant [facility] [id number] 17:12:00 16:27:00 Encounter Charisse Bond [facility] 2022-03-04 2022-03-04 Travel [facility] [id number] [facility] 00:00:00 00:00:00 [facility] 2022-03-03 2022-03-03 Travel [facility] [id number] [facility] 00:00:00 00:00:00 [facility] 2022-03-03 2022-03-03 Telephone Capo [facility] [id number] 00:00:00 00:00:00 [facility] 2022-02-26 2022-02-26 Outpatient RODOLFO TINAJERO SLE [id number] SLE 12:14:28 23:59:00 [facility] 2022-02-26 2022-02-26 [facility] Moi [facility] [id number] 12:14:28 23:59:00 Encounter [facility] 2022-02-26 2022-02-26 Clinic Anton [facility] [id number] 09:45:00 10:00:00 Visit [facility] 2022-02-26 2022-02-26 Outpatient RODOLFO AGUIRRE SLE [id number] SLE 08:05:06 08:05:06 VIENNA 2022-02-26 2022-02-26 [facility] Moi [facility] [id number] 00:00:00 00:00:00 Orders [facility] 2022-02-25 2022-02-25 Telephone Dale [facility] [id number] 00:00:00 00:00:00 [facility] 2022-02-24 2022-02-24 Telephone Elsa Scanlon [facility] [id number] 00:00:00 00:00:00 [facility] 2022-02-19 2022-02-19 Anti-kam Andres [facility] [id number] 00:00:00 00:00:00 visit [facility] 2022-02-19 2022-02-19 Abstract Dale [facility] [id number] 00:00:00 00:00:00 [facility] 2022-02-18 2022-02-18 Zelda Elsa Scanlon [facility] [id number] 00:00:00 00:00:00 [facility] 2022-02-05 2022-02-05 Outpatient EL SLEH SLEH [id number] [facility] 00:00:00 00:00:00 2022-02-05 2022-02-05 [facility] [id number] [facility] 00:00:00 00:00:00 VIENNA 2022-01-29 2022-01-29 Outpatient JOSH SEALS, SLEH SLEH [id number] [facility]H 10:07:01 23:59:00 VIENNA 2022-01-29 2022-01-29 [facility] [id number] 10:00:00 23:59:00 Encounter [facility] 2022-01-29 2022-01-29 Outpatient [facility] [id number] [facility] 00:00:00 23:59:00 Pattie 2022-01-29 2022-01-29 [facility] hospitalbrianda [facility] [id number] 11:00:00 11:15:00 Visit [facility] 2022-01-29 2022-01-29 Outpatient EL ANTON SLE SLE [id number] SLEH 10:06:36 10:06:36 VIENNA 2022-01-29 2022-01-29 Outpatient EL SLEH SLEH [id number] [facility]H 00:00:00 00:00:00 2022-01-28 2022-01-28 Telephone Dale [facility] [id number] 00:00:00 00:00:00 [facility] 2022-01-27 2022-01-27 Orders Capo, [facility] [id number] 00:00:00 00:00:00 Only [facility] 2022-01-26 2022-01-26 Anti-coag Joel [facility] [id number] 00:00:00 00:00:00 visit Keila Beck [facility] 2022-01-26 2022-01-26 Kimberly Hunter [facility] [id number] 00:00:00 00:00:00 [facility] 2022-01-24 2022-01-24 Telephone Elsa Scanlon [facility] [id number] 00:00:00 00:00:00 [facility] 2022-01-19 2022-01-19 Kimberly Hunter [facility] [id number] 00:00:00 00:00:00 [facility] 2022-01-16 2022-01-16 Anti-coava Cuba [facility] [id number] 00:00:00 00:00:00 visit Lety Agee [facility] 2022-01-13 2022-01-13 Zelda Scanlon [facility] [id number] 00:00:00 00:00:00 [facility] 2022-01-09 2022-01-09 Elsa Squires [facility] [id number] 00:00:00 00:00:00 [facility] 2021-12-25 2021-12-25 Clinic Anton [facility] [id number] 11:00:00 11:15:00 Visit [facility] Flavio [facility] 2021-12-25 2021-12-25 Outpatient JOSH SEALS [facility] [id number] SLE 09:23:50 09:23:50 MARTA 2021-12-23 2021-12-23 Zelda Hunter [facility] [id number] 00:00:00 00:00:00 [facility] 2021-12-17 2021-12-17 Mau Andres [facility] [id number] 00:00:00 00:00:00 Only [facility] 2021-12-11 2021-12-11 Outpatient RODOLFO AGUIRRE [facility] [id number] SLE 00:00:00 00:00:00 VIENNA 2021-12-11 2021-12-11 Telephone Capo, [facility] [id number] 00:00:00 00:00:00 [facility] 2021-11-21 2021-11-21 Telephone Capo, [facility] [id number] [facility] 00:00:00 00:00:00 [facility] 2021-11-21 2021-11-21 Telephone Capo, [facility] [id number] 00:00:00 00:00:00 [facility] 2021-11-20 2021-11-20 Outpatient [facility] [id number] [facility] 00[facility]00:00 23:59:00 Meagan Medicin e 2021-11-20 2021-11-20 Clinic Obisiah, [facility] [id number] 10:15:00 10:30:00 Visit [facility] 2021-11-20 2021-11-20 Outpatient RODOLFO AGUIRRE [facility] [id number] [facility] 09:05:16 09:05:16 VIENNA 2021-11-20 2021-11-20 Orders Anton, [facility] [id number] 00:00:00 00:00:00 Only [facility] 2021-11-17 2021-11-17 Telephone Dmitry [facility] [id number] [facility] 00:00:00 00:00:00 [facility] 2021-11-17 2021-11-17 Telephone Dale, [facility] [id number] [facility] 00:00[facility]00 00:00:00 [facility] 2021-11-14 2021-11-14 Orders Elsa Scanlon [facility] [id number] [facility] 00:00:00 00:00:00 Only [facility] 2021-11-13 2021-11-13 Outpatient RODOLFO AGUIRRE [facility] [id number] [facility] 00:00:00 00:00:00 VIENNA 2021-11-13 2021-11-13 Telephone Elsa Scanlon [facility] [id number] [facility] 00:[facility]00 00:00:00 [facility] 2021-11-07 2021-11-07 Orders Capo [facility] [id number] [facility] 00:00:00 00:00:00 Only [facility] 2021-11-06 2021-11-06 [facility] Anton [facility] [id number] 11[facility]00:00 11:15:00 Visit [facility] 2021-11-06 2021-11-06 [facility] [id number] [facility] 09:46:24 09:46:24 VIENNA 2021-11-06 2021-11-06 Telephone Elsa Scanlon [facility] [id number] [facility] 00:00[facility] 00:00:00 [facility] 2021-11-05 2021-11-05 Telephone Bereket [facility] [facility] [id number] [address] 00:[facility] 00[facility]00:00 [facility] 2021-11-05 2021-11-05 Telephone Dale [facility] [id number] 00[facility] 00[facility]00[facility]00 [facility] 2021-11-04 2021-11-04 Telephone Elsa Scanlon [facility] [id number] 00[facility] 00[facility]00 [facility] 2021-11-03 2021-11-03 Telephone Bereket [facility] [id number] [address] 00:00[facility]00 00:00:00 [facility] 2021-11-03 2021-11-03 Orders Elsa Scanlon [facility] [id number] 00:[facility]00 00:00:00 Only [facility] 2021-10-30 2021-10-30 Clinic Anton [facility] [id number] 10:15:00 10:30:00 Visit [facility] 2021-10-30 2021-10-30 Outpatient JOSH SEALS [facility] [id number] SLE 09:08:31 09:08:31 VIENNA 2021-10-28 2021-10-28 Telephone Dale [facility] [id number] [address] 00:[facility] 00:00:00 [facility] 2021-10-23 2021-10-23 [facility] Anton [facility] [id number] 10:15:00 10:30:00 Visit [facility] 2021-10-23 2021-10-23 Outpatient ANTON [facility] [id number] SLE 09:00:52 09:00:52 VIENNA 2021-10-23 2021-10-23 Elsa Squires [facility] [id number] 00:[facility] 00[facility]00:00 [facility] 2021-10-20 2021-10-20 Telephone Dale [facility] [id number] 00:[facility]00 00:00:00 [facility] 2021-10-14 2021-10-14 Zelda Cuba [facility] [id number] 00:00:00 00:00:00 [facility] 2021-10-14 2021-10-14 Anti-coag Bereket [facility] [id number] 00:00:00 00:00:00 visit [facility] 2021-09-02 2021-10-13 Inpatient ER NEASON, [facility] Emergency [id number] [facility] 17:52:00 15:45:00 [facility] 2021-09-02 2021-10-13 [facility] Oren Madison [facility] [id number] [facility] 17:52:00 15:45:00 Encounter Carlos Hernandez, Bobby Sloan, [facility] Cipriano Kemp, Kwadwo aVsquez, Britt Hyunna 2021-10-10 2021-10-10 Abstract Dale, [facility] [id number] [facility] 00:00:00 00:00:00 [facility] 2021-09-08 2021-09-08 Outpatient BCM BCM [id number] [facility] 00:00:00 23:59:00 [facility] 2021-09-02 2021-09-02 Outpatient BCM BCM [id number] [facility] 17:52:00 23:59:00 [facility] 2021-09-02 2021-09-02 Outpatient BCM M [id number] [facility] 17:52:00 17:52:00 [facility] 2021-09-01 2021-09-01 Outpatient EL ANTON [facility] [id number] [facility] 09:41:21 09:41:21 MARTA 2021-08-25 2021-08-25 Outpatient EL ANTON [facility] [id number] [facility] 00:00:00 00:00:00 MARTA 2021-08-18 2021-08-18 Outpatient BCM M [id number] [facility] 00:00:00 23:59:00 [facility] 2021-08-18 2021-08-18 Outpatient EL ANTON [facility] [id number] [facility] 14:28:34 14:28:34 MARTA 2021-08-16 2021-08-17 Inpatient ER IRIS, [facility] Emergency [id number] SLE 09:35:00 14:26:00 VICKY 2021-08-16 2021-08-16 Outpatient BCM BCM [id number] [facility] 00:00:00 23:59:00 [facility] 2021-06-30 2021-08-11 Inpatient ER ROS [facility] Medical ICU [id number] SLE 01:24:00 17:46:00 CIPRIANO 2021-07-10 2021-07-10 [facility] [id number] SLE 00:00:00 00:00:00 VIENNA 2021-07-02 2021-07-02 Outpatient BCM [facility] [id number] [facility] 00:00:00 23:59:00 [facility] 2021-06-19 2021-06-19 Outpatient ANTON [facility] [id number] SLE 00:00:00 00:00:00 VIENNA 2021-06-05 2021-06-05 Outpatient EL ANTON [facility] [id number] SLE 00:00:00 00:00:00 VIENNA 2021-06-05 2021-06-05 Outpatient JOSH SEALS [facility] [id number] SLE 00:00:00 00:00:00 VIENNA 2021-06-02 2021-06-02 Outpatient BCM BCM [id number] [facility] 00:00:00 23:59:00 [facility] 2021-05-31 2021-05-31 Outpatient BCM BCM [id number] [facility] 14:10:00 23:59:00 [facility] 2021-05-31 2021-05-31 Emergency ER [facility] Emergency [id number] SLE 13:58:00 13:58:00 2021-05-29 2021-05-29 Outpatient JOSH SEALS [facility] [id number] SLE 00:00:00 00:00:00 MATRA 2021-05-22 2021-05-22 Outpatient JOSH SEALS [facility] [id number] SLE 00:00:00 00:00:00 MARTA 2021-05-22 2021-05-22 Outpatient JOSH OBISIAH [facility] [id number] SLE 00:00:00 00:00:00 VIENNA 2021-05-20 2021-05-20 Outpatient OBISIAH [facility] [id number] [facility] 00:00:00 00:00:00 MARTA 2021-05-20 2021-05-20 Outpatient OBISIAH, SLEH [facility]H [id number] [facility]H 00:00:00 00:00:00 MARTA 2021-05-20 2021-05-20 Outpatient EL ANTON [facility] SLEH [id number] [facility] 00:00:00 00:00:00 MARTA 2021-05-20 2021-05-20 Outpatient OBISIAH SLEH SLEH [id number] [facility] 00:00:00 00:00:00 MARTA 2021-05-20 2021-05-20 [facility] [id number] [facility] 00:00:00 00:00:00 MARTA 2021-05-15 2021-05-15 Outpatient ANTON [facility] SLEH [id number] [facility] 00:00:00 00:00:00 MARTA 2021-05-15 2021-05-15 Outpatient ANTON, SLEH SLEH [id number] [facility]H 00:00:00 00:00:00 MARTA 2021-05-09 2021-05-09 Outpatient ANTON SLEH SLEH [id number] [facility] 00:00:00 00:00:00 MARTA 2021-05-08 2021-05-08 Outpatient SLEH SLEH [id number] [facility] 00:00:00 00:00:00 2021-05-08 2021-05-08 Outpatient JOSH SEALS [facility]H [id number] [facility]H 00:00:00 00:00:00 MARTA 2021-05-01 2021-05-01 Outpatient JOSH CLARK [facility]H SLEH [id number] SLEH 00:00:00 00:00:00 CHAVA 2021-04-22 2021-04-22 Outpatient EDUARDO SLE SLEH [id number] SLEH 00:00:00 00:00:00 CHAVA 2021-04-10 2021-04-10 Outpatient JOSH CLARK SLE SLEH [id number] SLEH 00:00:00 00:00:00 CHAVA 2021-04-02 2021-04-02 Outpatient JOSH CLARK [facility] [id number] SLE 00:00:00 00:00:00 YARELIS 2021-03-31 2021-03-31 Outpatient JOSH [facility]ALS [facility] [id number] SLE 00:00:00 00:00:00 MARTA 2021-03-30 2021-03-30 Outpatient BCM BC [id number] [facility] 00:00:00 23:59:00 [facility] 2021-03-30 2021-03-30 Emergency ER [facility] Emergency [id number] SLE 11:25:00 11:25:00 2021-03-25 2021-03-25 Outpatient BCM BC [id number] [facility] 00:00:00 23:59:00 [facility] 2021-03-24 2021-03-24 Emergency ER [facility] Emergency [id number] SLE 20:09:00 20:09:00 2021-03-18 2021-03-18 Outpatient JOSH CLARK [facility] [id number] SLE 00:00:00 00:00:00 [facility] 2021-02-27 2021-02-27 Emergency ER [facility] Emergency [id number] SLE 16:49:00 16:49:00 2021-01-17 2021-01-17 Nurse Only Patti 1.2.840.1 [id number] Methodi 00:00:00 00:00:[address] 3.430.2.7 Hospit a .3.646940 l .8 2021-01-17 2021-01-17 Travel 1.2.840.1 1.2.965.705 [id number] Methodi 00:00:00 00:00:[address] 3.430.2.7 0.2.7.3.698 Ho spita .3.166114 084.8 l .8 2021-01-12 2021-01-16 [facility] Manav Monahan 1.2.840.1 [id number] Methodi 19:02:00 16:24:00 [place]. [address].1.[address] 3.430.2.7 Hospit a .3.161160 l .8 2020-12-23 2020-12-31 [facility] Dwight Williamson Manuel 1.2.840.1 10 [id number] Methodi 13:26:00 14:54:00 Encounter Wesley Álvarez O. [address]192.1.[address] 3.430.2.7 Hospit a .3.636883 l .8 2020-12-23 2020-12-23 Documentat Provider, 1.2.840.1 [id number] Methodi 00:00:00 00:00:00 ion Unknown 55933.1.[address] 3.430.2.7 Hospit a .3.957201 l .8 2020-07-24 2020-07-31 Inpatient H[facility]RI [facility]4 [id number] [place] 00:00:00 00:00:00 WESLEY [address] 2020-07-18 2020-07-20 Inpatient LISANDRA, [facility] [id number] [place] 00:00:00 00:00:00 LUIS F 161 Method i 2020-06-30 2020-07-02 Inpatient [place] [id number] [place] 00:00:00 00:00:00 OLUYEMISI 843 Meth bruno 2020-06-23 2020-06-26 Inpatient OVASAKAMRON [facility]4 [id number] [place] 00:00:00 00:00:00 KRISTALRD 997 Metho di 2020-05-27 2020-06-05 [facility] [id number] [place] 00:00:00 00:00:00 WESLEY [address] 2020-05-09 2020-05-09 Outpatient COH [facility] PDPFEIM FXK COH 00:00:00 00:00:00 CKBJ-09683 123 2020-05-06 2020-05-09 Inpatient NAKUL, [facility] 012 [id number] [place] 00:00:00 00:00:00 JESSICA 980 Met hodi 2020-04-24 2020-04-29 [facility] [id number] [id number] [place] 00:00:00 00:00:00 OLUYEMISI [address] 2020-04-15 2020-04-15 Emergency TUCKER, [facility] [id number] [place] 00:00:00 00:00:00 ANNETTE [address] 2020-04-04 2020-04-12 Inpatient HENRI, [facility] 060 [id number] [place] 00:00:00 00:00:00 WESLEY [address] 2020-03-22 2020-04-01 Inpatient SAMANI, [facility] 064 [id number] [place] 00:00:00 00:00:00 JIMBO [address] 2020-01-24 2020-01-27 Inpatient HENRI, [facility] 064 [id number] [place] 00:00:00 00:00:00 WESLEY [address] 2019-12-20 2019-12-26 Inpatient HENRI, [facility] 064 [id number] [place] 00:00:00 00:00:00 WESLEY [address] 2019-11-27 2019-11-27 Outpatient ATTAR, [facility] [id number] [place] 00:00:00 00:00:00 MOHAMMED [address] 2019-11-27 2019-11-27 Outpatient ATTAR, [facility] [id number] [place] 00:00:00 00:00:00 MOHAMMED [address] 2019-11-12 2019-11-21 Inpatient HENRI, [facility] 012 [id number] [place] 00:00:00 00:00:00 WESLEY [address] 2019-10-28 2019-11-03 Inpatient HENRI, [facility] 012 [id number] [place] 00:00:00 00:00:00 WESLEY [address] 2019-10-12 2019-10-27 Inpatient HENRI, [facility] 060 [id number] [place] 00:00:00 00:00:00 WESLEY [address] 2019-08-31 2019-09-03 Inpatient ÓSCAR, [facility] [id number] [place] 00:00:00 00:00:00 JOSE A [address] 2019-05-15 2019-05-15 Telephone YASMIN [place] 1.2.840.114 [id number] 00:00:00 00:00:00 [facility] 350.1.13.10 [facility] 4.2.7.2.686 [id number] 2019-05-15 2019-05-15 Telephone YASMIN [place].2.840.114 7 [id number] [facility] 00:00:00 00:00:00 [facility].1.13.10 i ty of [facility] 4.2.7.2.686 Roscoe varma [id number] [facility] 059 Branch Results Test Description Test Time Test Comments Results Result Comments Source Prothrombin time/INR 2022-09-25 01:41:00 Test Item Value Reference Range Interpretation Comme nts INR (test code = 2002946) 2.4 H Re ference Range 0.9-1.1Moderate -intensity Warfarin Therapy 2.0-3.0 Higher-intensity Warfarin Therap y 3.0-4.0 PT (test code = 8717459) 22.3 See_Comment H For additional information, please refer [email or web address] mediaat [email or web address]( This link is being provided for informational/e ducational purposes only.) [Automat ed message] The system which ge nerated this result transmitted ref erence range: 9.0 - 11.5 sec. The r eference range was not used to int erpret this result as normal/abnormal . Lab Interpretation (test Abnormal code = 83758-1) [facility] [id number] 11:19:46 Test Item Value Reference Range Interpretation Comments CULTURE (BEAKER) A 3 out of 4 media (test code = Aspergillus nig er 1095) CULTURE (BEAKER) ENTEROCOCCUS A <1+ Enteroc occus (test code = FAECALIS faecalis 1095) Ampicillin (test S code = 26) Linezolid (test S code = 40) Vancomycin (test S code = 13) GRAM STAIN RESULT 2+ WBCs (BEAKER) (test code = 1123) GRAM STAIN RESULT 1+ gram positive (BEAKER) (test cocci in pairs code = 909783) LACTATE DEHYDROGENASE (LDH)2022-09-18 06:59:37 Test Item Value Reference Range Interpretation Comments LACTATE DEHYDROGENASE (BEAKER) (test 271 U/L 125-220 H code = 635) Stitcher Hand ID - [id number] 06:59:36 Test Item Value Reference Range Interpretation Comments MAGNESIUM (BEAKER) (test code = 1.9 mg/dL 1.6-2.6 627) Stitcher Hand ID - [id number] 06:59:36 Test Item Value Reference Range Interpretation Comments PHOSPHORUS (BEAKER) (test code = 4.8 mg/dL 2.3-4.7 H 604) Stitcher Hand ID - DEMETRIOOBASIC METABOLIC [id number] 06:59:35 Test Item Value Reference Range Interpretation Comments SODIUM (BEAKER) 137 meq/L 136-145 (test code = 381) POTASSIUM 4.4 meq/L 3.5-5.1 (BEAKER) (test code = 379) CHLORIDE (BEAKER) 104 meq/L 98-107 (test code = 382) CO2 (BEAKER) 24 meq/L 22-29 (test code = 355) BLOOD UREA 14 mg/dL 7-21 NITROGEN (BEAKER) (test code = 354) CREATININE 1.03 mg/dL 0.57-1.25 (BEAKER) (test code = 358) GLUCOSE RANDOM 128 mg/dL 70-105 H (BEAKER) (test code = 652) CALCIUM (BEAKER) 9.0 mg/dL 8.4-10.2 (test code = 697) EGFR (BEAKER) 89 Interpretatio n of eGFR (test code = mL/min/1.73 values Stage De scription 1092) sq m Result G1 Norm al or high >=90 G2 Mildly decreased 60-89 G3a Mildl y to moderately 45-5 9 G3b Moderately to s everely 30-44 G4 Severl y decreased 15-29 G5 Kidney failure <15Reported eGF R is based on the CKD-EPI 2021 equation that d oes not use a race coefficientEsti mated GFR is not as accur ate as Creatinine Grace almeida in predicting glom erular filtration rate . Estimated GFR is not appl icable for dialysis patien ts Stitcher Hand ID - [id number] 06:36:05 Test Item Value Reference Range Interpretation Comments PARTIAL THROMBOPLASTIN TIME 52.1 seconds 22.5-36.0 H (BEAKER) (test code = 760) PROTHROMBIN [id number] 06:34:46 Test Item Value Reference Range Interpretation Comments PROTIME (BEAKER) 14.6 seconds 11.9-14.2 H (test code = 759) INR (BEAKER) (test 1.21 See_Comment [Automat ed message] code = 370) The system g4interactive generated this result transmitted ref erence range: <=5.90. The reference range was not used to int erpret this result as normal/abnormal . RECOMMENDED COUMADIN/WARFARIN INR THERAPY RANGESSTANDARD DOSE: 2.0 - 3.0 Includes: PROPHYLAXIS for venous thrombosis, systemic embolization; TREATMENT for venous thrombosis and/or pulmonary embolus.HIGH RISK: Target INR is 2.5-3.5 for patients with mechanical heart valves.CBC W/PLT COUNT & AUTO [id number] 06:22:20 Test Item Value Reference Range Interpretation Comments WHITE BLOOD CELL COUNT (BEAKER) 4.7 K/ L 3.5-10.5 (test code = 775) RED BLOOD CELL COUNT (BEAKER) 3.53 M/ L 4.63-6.08 L (test code = 761) HEMOGLOBIN (BEAKER) (test code = 11.1 GM/DL 13.7-17.5 L 410) HEMATOCRIT (BEAKER) (test code = 34.9 % 40.1-51.0 L 411) MEAN CORPUSCULAR VOLUME (BEAKER) 99 fL 79-92 H (test code = 753) MEAN CORPUSCULAR HEMOGLOBIN 31.4 pg 25.7-32.2 (BEAKER) (test code = 751) MEAN CORPUSCULAR HEMOGLOBIN CONC 31.8 GM/DL 32.3-36.5 L (BEAKER) (test code = 752) RED CELL DISTRIBUTION WIDTH 19.0 % 11.6-14.4 H (BEAKER) (test code = 412) PLATELET COUNT (BEAKER) (test 132 K/CU MM 150-450 L code = 756) MEAN PLATELET VOLUME (BEAKER) 9.5 fL 9.4-12.4 (test code = 754) NUCLEATED RED BLOOD CELLS 0 /100 WBC 0-0 (BEAKER) (test code = 413) NEUTROPHILS RELATIVE PERCENT 65 % (BEAKER) (test code = 429) LYMPHOCYTES RELATIVE PERCENT 25 % (BEAKER) (test code = 430) MONOCYTES RELATIVE PERCENT 7 % (BEAKER) (test code = 431) EOSINOPHILS RELATIVE PERCENT 3 % (BEAKER) (test code = 432) BASOPHILS RELATIVE PERCENT 0 % (BEAKER) (test code = 437) NEUTROPHILS ABSOLUTE COUNT 3.03 K/ L 1.78-5.38 (BEAKER) (test code = 670) LYMPHOCYTES ABSOLUTE COUNT 1.15 K/ L 1.32-3.57 L (BEAKER) (test code = 414) MONOCYTES ABSOLUTE COUNT (BEAKER) 0.32 K/ L 0.30-0.82 (test code = 415) EOSINOPHILS ABSOLUTE COUNT 0.13 K/ L 0.04-0.54 (BEAKER) (test code = 416) BASOPHILS ABSOLUTE COUNT (BEAKER) 0.01 K/ L 0.01-0.08 (test code = 417) IMMATURE GRANULOCYTES-RELATIVE 0.60 % 0.00-1.00 PERCENT (BEAKER) (test code = 2801) [id number] 16:42:30 Test Item Value Reference Range Interpretation Comments PARTIAL THROMBOPLASTIN TIME 83.1 seconds 22.5-36.0 H (BEAKER) (test code = 760) [id number] 10:24:51 Test Item Value Reference Range Interpretation Comments PARTIAL THROMBOPLASTIN TIME 77.0 seconds 22.5-36.0 H (BEAKER) (test code = 760) [id number] 05:51:42 Test Item Value Reference Range Interpretation Comments PHOSPHORUS (BEAKER) (test code = 4.6 mg/dL 2.3-4.7 604) Stitcher Hand ID - MARCOLACTATE DEHYDROGENASE (LDH)2022-09-17 05:51:42 Test Item Value Reference Range Interpretation Comments LACTATE DEHYDROGENASE (BEAKER) (test 237 U/L 125-220 H code = 635) Stitcher Hand ID - [id number] 05:51:41 Test Item Value Reference Range Interpretation Comments MAGNESIUM (BEAKER) (test code = 1.8 mg/dL 1.6-2.6 627) Stitcher Hand ID - MARCOBASIC METABOLIC [id number] 05:51:40 Test Item Value Reference Range Interpretation Comments SODIUM (BEAKER) 137 meq/L 136-145 (test code = 381) POTASSIUM 4.2 meq/L 3.5-5.1 (BEAKER) (test code = 379) CHLORIDE (BEAKER) 103 meq/L 98-107 (test code = 382) CO2 (BEAKER) 25 meq/L 22-29 (test code = 355) BLOOD UREA 11 mg/dL 7-21 NITROGEN (BEAKER) (test code = 354) CREATININE 1.11 mg/dL 0.57-1.25 (BEAKER) (test code = 358) GLUCOSE RANDOM 110 mg/dL 70-105 H (BEAKER) (test code = 652) CALCIUM (BEAKER) 9.2 mg/dL 8.4-10.2 (test code = 697) EGFR (BEAKER) 81 Interpretatio n of eGFR (test code = mL/min/1.73 values Stage De scription 1092) sq m Result G1 Chio l or high >=90 G2 Mildly decreased 60-89 G3a Mildl y to moderately 45-5 9 G3b Moderately to s everely 30-44 G4 Severl y decreased 15-29 G5 Kidney failure <15Reported eGF R is based on the CKD-EPI 2020 equation that d oes not use a race coefficientEsti mated GFR is not as accur ate as Creatinine Grace elle in predicting glom erular filtration rate . Estimated GFR is not appl icable for dialysis patien ts Stitcher Hand ID - [id number] 05:20:29 Test Item Value Reference Range Interpretation Comments PARTIAL THROMBOPLASTIN TIME 53.2 seconds 22.5-36.0 H (BEAKER) (test code = 760) PROTHROMBIN [id number] 05:19:20 Test Item Value Reference Range Interpretation Comments PROTIME (BEAKER) 14.1 seconds 11.9-14.2 (test code = 759) INR (BEAKER) (test 1.11 See_Comment [Automat ed message] code = 370) The system g4interactive generated this result transmitted ref erence range: <=5.90. The reference range was not used to int erpret this result as normal/abnormal . RECOMMENDED COUMADIN/WARFARIN INR THERAPY RANGESSTANDARD DOSE: 2.0 - 3.0 Includes: PROPHYLAXIS for venous thrombosis, systemic embolization; TREATMENT for venous thrombosis and/or pulmonary embolus.HIGH RISK: Target INR is 2.5-3.5 for patients with mechanical heart valves.CBC W/PLT COUNT & AUTO [id number] 05:13:01 Test Item Value Reference Range Interpretation Comments WHITE BLOOD CELL COUNT (BEAKER) 4.4 K/ L 3.5-10.5 (test code = 775) RED BLOOD CELL COUNT (BEAKER) 3.27 M/ L 4.63-6.08 L (test code = 761) HEMOGLOBIN (BEAKER) (test code = 10.2 GM/DL 13.7-17.5 L 410) HEMATOCRIT (BEAKER) (test code = 31.8 % 40.1-51.0 L 411) MEAN CORPUSCULAR VOLUME (BEAKER) 97 fL 79-92 H (test code = 753) MEAN CORPUSCULAR HEMOGLOBIN 31.2 pg 25.7-32.2 (BEAKER) (test code = 751) MEAN CORPUSCULAR HEMOGLOBIN CONC 32.1 GM/DL 32.3-36.5 L (BEAKER) (test code = 752) RED CELL DISTRIBUTION WIDTH 18.9 % 11.6-14.4 H (BEAKER) (test code = 412) PLATELET COUNT (BEAKER) (test 116 K/CU MM 150-450 L code = 756) MEAN PLATELET VOLUME (BEAKER) 9.5 fL 9.4-12.4 (test code = 754) NUCLEATED RED BLOOD CELLS 0 /100 WBC 0-0 (BEAKER) (test code = 413) NEUTROPHILS RELATIVE PERCENT 68 % (BEAKER) (test code = 429) LYMPHOCYTES RELATIVE PERCENT 22 % (BEAKER) (test code = 430) MONOCYTES RELATIVE PERCENT 8 % (BEAKER) (test code = 431) EOSINOPHILS RELATIVE PERCENT 2 % (BEAKER) (test code = 432) BASOPHILS RELATIVE PERCENT 0 % (BEAKER) (test code = 437) NEUTROPHILS ABSOLUTE COUNT 3.00 K/ L 1.78-5.38 (BEAKER) (test code = 670) LYMPHOCYTES ABSOLUTE COUNT 0.96 K/ L 1.32-3.57 L (BEAKER) (test code = 414) MONOCYTES ABSOLUTE COUNT (BEAKER) 0.35 K/ L 0.30-0.82 (test code = 415) EOSINOPHILS ABSOLUTE COUNT 0.09 K/ L 0.04-0.54 (BEAKER) (test code = 416) BASOPHILS ABSOLUTE COUNT (BEAKER) 0.01 K/ L 0.01-0.08 (test code = 417) IMMATURE GRANULOCYTES-RELATIVE 0.50 % 0.00-1.00 PERCENT (BEAKER) (test code = 2801) [id number] 16:26:23 Test Item Value Reference Range Interpretation Comments PARTIAL THROMBOPLASTIN TIME 83.3 seconds 22.5-36.0 H (BEAKER) (test code = 760) [id number] 11:29:37 Test Item Value Reference Range Interpretation Comments PARTIAL THROMBOPLASTIN TIME 75.6 seconds 22.5-36.0 H (BEAKER) (test code = 760) LACTATE DEHYDROGENASE (LDH)2022-09-16 06:00:26 Test Item Value Reference Range Interpretation Comments LACTATE DEHYDROGENASE (BEAKER) (test 220 U/L 125-220 code = 635) Stitcher Hand ID - [id number] 06:00:21 Test Item Value Reference Range Interpretation Comments PHOSPHORUS (BEAKER) (test code = 4.3 mg/dL 2.3-4.7 604) Stitcher Hand ID - BSBASIC METABOLIC [id number] 06:00:20 Test Item Value Reference Range Interpretation Comments SODIUM (BEAKER) 135 meq/L 136-145 L (test code = 381) POTASSIUM 4.2 meq/L 3.5-5.1 (BEAKER) (test code = 379) CHLORIDE (BEAKER) 102 meq/L 98-107 (test code = 382) CO2 (BEAKER) 25 meq/L 22-29 (test code = 355) BLOOD UREA 10 mg/dL 7-21 NITROGEN (BEAKER) (test code = 354) CREATININE 0.96 mg/dL 0.57-1.25 (BEAKER) (test code = 358) GLUCOSE RANDOM 121 mg/dL 70-105 H (BEAKER) (test code = 652) CALCIUM (BEAKER) 8.5 mg/dL 8.4-10.2 (test code = 697) EGFR (BEAKER) 97 Interpretatio n of eGFR (test code = mL/min/1.73 values Stage De scription 1092) sq m Result G1 Chio l or high >=90 G2 Mildly decreased 60-89 G3a Mildl y to moderately 45-5 9 G3b Moderately to s everely 30-44 G4 Severl y decreased 15-29 G5 Kidney failure <15Reported eGF R is based on the CKD-EPI 2020 equation that d oes not use a race coefficientEsti mated GFR is not as accur ate as Creatinine Grace elle in predicting glom erular filtration rate . Estimated GFR is not appl icable for dialysis patien ts Stitcher Hand ID - [id number] 06:00:20 Test Item Value Reference Range Interpretation Comments MAGNESIUM (BEAKER) (test code = 1.8 mg/dL 1.6-2.6 627) Stitcher Hand ID - [id number] 05:08:16 Test Item Value Reference Range Interpretation Comments PARTIAL THROMBOPLASTIN TIME 49.9 seconds 22.5-36.0 H (BEAKER) (test code = 760) PROTHROMBIN TIME/[id number] 05:03:14 Test Item Value Reference Range Interpretation Comments PROTIME (BEAKER) 13.6 seconds 11.9-14.2 (test code = 759) INR (BEAKER) (test 1.10 See_Comment [Automat ed message] code = 370) The system g4interactive generated this result transmitted ref erence range: <=5.90. The reference range was not used to int erpret this result as normal/abnormal . RECOMMENDED COUMADIN/WARFARIN INR THERAPY RANGESSTANDARD DOSE: 2.0 - 3.0 Includes: PROPHYLAXIS for venous thrombosis, systemic embolization; TREATMENT for venous thrombosis and/or pulmonary embolus.HIGH RISK: Target INR is 2.5-3.5 for patients with mechanical heart valves.CBC W/PLT COUNT & AUTO [id number] 04:46:08 Test Item Value Reference Range Interpretation Comments WHITE BLOOD CELL COUNT (BEAKER) 4.5 K/ L 3.5-10.5 (test code = 775) RED BLOOD CELL COUNT (BEAKER) 3.10 M/ L 4.63-6.08 L (test code = 761) HEMOGLOBIN (BEAKER) (test code = 9.4 GM/DL 13.7-17.5 L 410) HEMATOCRIT (BEAKER) (test code = 29.5 % 40.1-51.0 L 411) MEAN CORPUSCULAR VOLUME (BEAKER) 95 fL 79-92 H (test code = 753) MEAN CORPUSCULAR HEMOGLOBIN 30.3 pg 25.7-32.2 (BEAKER) (test code = 751) MEAN CORPUSCULAR HEMOGLOBIN CONC 31.9 GM/DL 32.3-36.5 L (BEAKER) (test code = 752) RED CELL DISTRIBUTION WIDTH 19.0 % 11.6-14.4 H (BEAKER) (test code = 412) PLATELET COUNT (BEAKER) (test code 98 K/CU MM 150-450 L = 756) MEAN PLATELET VOLUME (BEAKER) 9.4 fL 9.4-12.4 (test code = 754) NUCLEATED RED BLOOD CELLS (BEAKER) 0 /100 WBC 0-0 (test code = 413) NEUTROPHILS RELATIVE PERCENT 69 % (BEAKER) (test code = 429) LYMPHOCYTES RELATIVE PERCENT 22 % (BEAKER) (test code = 430) MONOCYTES RELATIVE PERCENT 8 % (BEAKER) (test code = 431) EOSINOPHILS RELATIVE PERCENT 2 % (BEAKER) (test code = 432) BASOPHILS RELATIVE PERCENT 0 % (BEAKER) (test code = 437) NEUTROPHILS ABSOLUTE COUNT 3.09 K/ L 1.78-5.38 (BEAKER) (test code = 670) LYMPHOCYTES ABSOLUTE COUNT 0.99 K/ L 1.32-3.57 L (BEAKER) (test code = 414) MONOCYTES ABSOLUTE COUNT (BEAKER) 0.34 K/ L 0.30-0.82 (test code = 415) EOSINOPHILS ABSOLUTE COUNT 0.07 K/ L 0.04-0.54 (BEAKER) (test code = 416) BASOPHILS ABSOLUTE COUNT (BEAKER) 0.01 K/ L 0.01-0.08 (test code = 417) IMMATURE GRANULOCYTES-RELATIVE 0.20 % 0.00-1.00 PERCENT (BEAKER) (test code = 2801) [id number] 20:34:26 Test Item Value Reference Range Interpretation Comments PARTIAL THROMBOPLASTIN TIME 52.2 seconds 22.5-36.0 H (BEAKER) (test code = 760) ANG, NON-TUNNELED CATH/PICC >5 Y.O. WITH [id number] 14:40:00LVAD pt on heparin gttReason for exam:->long distance operator antibiotics [facility] : 1970 Sex: MFINAL REPORT Right upper extremity PICC insertion, 09/14/2022. History: Need for long-term IV antibiotics. Head Resident: Zenaida. Director Sterile Processing: Za Russell, Fellow . Modality: Sonography and fluoroscopy. Sedation: None. Anesthesia: Two percent Lidocaine without epinephrine. Approach: Brachial vein - right. Estimated blood loss: < 5 cc. Specimen: None. Fluoroscopy Time: 5.2 min. Dose (Ka,r): 95.4 mGy. Technique: Informed written consent was obtained. Discussion of risks, benefits, and alternatives were made with the patient. The patient expressed understanding and agreed to proceed. All elements maximal sterile barrier technique was utilized for this procedure, including utilization of sterile scrub solution for skin prep, a large sterile sheet to cover the areas of the patient that were not prepped, and hand hygiene, mask, head covering, and sterile gown for performing radiologist and scrub technologist. The skin was anesthetized with 2% lidocaine. Ultrasound evaluationshowed a patent and compressible right brachial vein, which was punctured under direct real-time ultrasound guidance with a micropuncture needle. An ultrasound image was saved to PACS. A 0.018 inch wire was placed through the needle and resistance was encountered advancing into the right atrium. A 4 [place] peel-away sheath was placed and contrast was injected for a DSA run. The 4 [place] single- lumen PICC line was measured and cut at 49 cm, and advanced through the sheath, with its distal tip terminating in the cavoatrial junction. The peel-away sheath was removed. The ports were flushed and aspirated easily following placement. The PICC line was secured with suture material. Vital signs were monitored throughout the procedure by a nurse, and remained stable. The patient tolerated the procedure well and left the department in the same condition. Findings: Narrowing/spasm of the brachial vein was noted. Spot radiograph of the chest demonstrates the new right upper extremity PICC line to lie in the expected position with its tip overlying the cavoatrial junction. Impression: Successful, uncomplicated placement of a right upper extremity PICC using sonographic and fluoroscopic guidance. Signed: Stefano Heaton Verified Date/Time: 09/15/2022 14:40:23 Reading Location: [facility] [id number] 13:22:13 Test Item Value Reference Range Interpretation Comments PARTIAL THROMBOPLASTIN TIME 58.4 seconds 22.5-36.0 H (BEAKER) (test code = 760) LACTATE DEHYDROGENASE (LDH)2022-09-15 07:03:02 Test Item Value Reference Range Interpretation Comments LACTATE DEHYDROGENASE (BEAKER) (test 206 U/L 125-220 code = 635) Stitcher Hand ID - SOCO [id number] 07:03:01 Test Item Value Reference Range Interpretation Comments MAGNESIUM (BEAKER) (test code = 1.8 mg/dL 1.6-2.6 627) Stitcher Hand ID - SOCO [id number] 07:03:01 Test Item Value Reference Range Interpretation Comments PHOSPHORUS (BEAKER) (test code = 4.5 mg/dL 2.3-4.7 604) Stitcher Hand ID - SCOO LBASIC METABOLIC [id number] 07:03:00 Test Item Value Reference Range Interpretation Comments SODIUM (BEAKER) 135 meq/L 136-145 L (test code = 381) POTASSIUM 4.1 meq/L 3.5-5.1 (BEAKER) (test code = 379) CHLORIDE (BEAKER) 104 meq/L 98-107 (test code = 382) CO2 (BEAKER) 23 meq/L 22-29 (test code = 355) BLOOD UREA 8 mg/dL 7-21 NITROGEN (BEAKER) (test code = 354) CREATININE 0.95 mg/dL 0.57-1.25 (BEAKER) (test code = 358) GLUCOSE RANDOM 120 mg/dL 70-105 H (BEAKER) (test code = 652) CALCIUM (BEAKER) 8.4 mg/dL 8.4-10.2 (test code = 697) EGFR (BEAKER) 98 Interpretatio n of eGFR (test code = mL/min/1.73 values Stage De scription 1092) sq m Result G1 Chio l or high >=90 G2 Mildly decreased 60-89 G3a Mildl y to moderately 45-5 9 G3b Moderately to s everely 30-44 G4 Severl y decreased 15-29 G5 Kidney failure <15Reported eGF R is based on the CKD-EPI 2020 equation that d oes not use a race coefficientEsti mated GFR is not as accur ate as Creatinine Grace elle in predicting glom erular filtration rate . Estimated GFR is not appl icable for dialysis patien ts Stitcher Hand ID - PIAYA LCBC W/PLT COUNT & AUTO [id number] 06:44:35 Test Item Value Reference Range Interpretation Comments WHITE BLOOD CELL COUNT (BEAKER) 4.2 K/ L 3.5-10.5 (test code = 775) RED BLOOD CELL COUNT (BEAKER) 3.02 M/ L 4.63-6.08 L (test code = 761) HEMOGLOBIN (BEAKER) (test code = 9.3 GM/DL 13.7-17.5 L 410) HEMATOCRIT (BEAKER) (test code = 28.9 % 40.1-51.0 L 411) MEAN CORPUSCULAR VOLUME (BEAKER) 96 fL 79-92 H (test code = 753) MEAN CORPUSCULAR HEMOGLOBIN 30.8 pg 25.7-32.2 (BEAKER) (test code = 751) MEAN CORPUSCULAR HEMOGLOBIN CONC 32.2 GM/DL 32.3-36.5 L (BEAKER) (test code = 752) RED CELL DISTRIBUTION WIDTH 19.1 % 11.6-14.4 H (BEAKER) (test code = 412) PLATELET COUNT (BEAKER) (test 103 K/CU MM 150-450 L code = 756) MEAN PLATELET VOLUME (BEAKER) 9.4 fL 9.4-12.4 (test code = 754) NUCLEATED RED BLOOD CELLS 0 /100 WBC 0-0 (BEAKER) (test code = 413) NEUTROPHILS RELATIVE PERCENT 69 % (BEAKER) (test code = 429) LYMPHOCYTES RELATIVE PERCENT 21 % (BEAKER) (test code = 430) MONOCYTES RELATIVE PERCENT 8 % (BEAKER) (test code = 431) EOSINOPHILS RELATIVE PERCENT 2 % (BEAKER) (test code = 432) BASOPHILS RELATIVE PERCENT 0 % (BEAKER) (test code = 437) NEUTROPHILS ABSOLUTE COUNT 2.88 K/ L 1.78-5.38 (BEAKER) (test code = 670) LYMPHOCYTES ABSOLUTE COUNT 0.87 K/ L 1.32-3.57 L (BEAKER) (test code = 414) MONOCYTES ABSOLUTE COUNT (BEAKER) 0.35 K/ L 0.30-0.82 (test code = 415) EOSINOPHILS ABSOLUTE COUNT 0.07 K/ L 0.04-0.54 (BEAKER) (test code = 416) BASOPHILS ABSOLUTE COUNT (BEAKER) 0.01 K/ L 0.01-0.08 (test code = 417) IMMATURE GRANULOCYTES-RELATIVE 0.50 % 0.00-1.00 PERCENT (BEAKER) (test code = 2801) [id number] 06:36:52 Test Item Value Reference Range Interpretation Comments PARTIAL THROMBOPLASTIN TIME 39.3 seconds 22.5-36.0 H (BEAKER) (test code = 760) PROTHROMBIN TIME/[id number] 06:36:11 Test Item Value Reference Range Interpretation Comments PROTIME (BEAKER) 13.7 seconds 11.9-14.2 (test code = 759) INR (BEAKER) (test 1.12 See_Comment [Automat ed message] code = 370) The system g4interactive generated this result transmitted ref erence range: <=5.90. The reference range was not used to int erpret this result as normal/abnormal . RECOMMENDED COUMADIN/WARFARIN INR THERAPY RANGESSTANDARD DOSE: 2.0 - 3.0 Includes: PROPHYLAXIS for venous thrombosis, systemic embolization; TREATMENT for venous thrombosis and/or pulmonary embolus.HIGH RISK: Target INR is 2.5-3.5 for patients with mechanical heart valves.[id number] 00:23:01 Test Item Value Reference Range Interpretation Comments PARTIAL THROMBOPLASTIN TIME 37.7 seconds 22.5-36.0 H (BEAKER) (test code = 760) [id number] 17:04:00 Test Item Value Reference Range Interpretation Comments PARTIAL THROMBOPLASTIN TIME 40.8 seconds 22.5-36.0 H (BEAKER) (test code = 760) [id number] 12:40:47 Test Item Value Reference Range Interpretation Comments PARTIAL THROMBOPLASTIN TIME 67.2 seconds 22.5-36.0 H (BEAKER) (test code = 760) LACTATE DEHYDROGENASE (LDH)2022-09-14 06:05:57 Test Item Value Reference Range Interpretation Comments LACTATE DEHYDROGENASE (BEAKER) (test 229 U/L 125-220 H code = 635) Stitcher Hand ID - SOCO [id number] 06:05:56 Test Item Value Reference Range Interpretation Comments PHOSPHORUS (BEAKER) (test code = 3.0 mg/dL 2.3-4.7 604) Stitcher Hand ID - SOCO LBASIC METABOLIC [id number] 06:05:55 Test Item Value Reference Range Interpretation Comments SODIUM (BEAKER) 136 meq/L 136-145 (test code = 381) POTASSIUM 4.5 meq/L 3.5-5.1 (BEAKER) (test code = 379) CHLORIDE (BEAKER) 104 meq/L 98-107 (test code = 382) CO2 (BEAKER) 22 meq/L 22-29 (test code = 355) BLOOD UREA 6 mg/dL 7-21 L NITROGEN (BEAKER) (test code = 354) CREATININE 0.96 mg/dL 0.57-1.25 (BEAKER) (test code = 358) GLUCOSE RANDOM 89 mg/dL 70-105 (BEAKER) (test code = 652) CALCIUM (BEAKER) 8.4 mg/dL 8.4-10.2 (test code = 697) EGFR (BEAKER) 97 Interpretatio n of eGFR (test code = mL/min/1.73 values Stage De scription 1092) sq m Result G1 Chio l or high >=90 G2 Mildly decreased 60-89 G3a Mildl y to moderately 45-5 9 G3b Moderately to s everely 30-44 G4 Severl y decreased 15-29 G5 Kidney failure <15Reported eGF R is based on the CKD-EPI 2020 equation that d oes not use a race coefficientEsti mated GFR is not as accur ate as Creatinine Grace elle in predicting glom erular filtration rate . Estimated GFR is not appl icable for dialysis patien ts Stitcher Hand ID - SOCO [id number] 06:05:55 Test Item Value Reference Range Interpretation Comments MAGNESIUM (BEAKER) (test code = 1.8 mg/dL 1.6-2.6 627) Stitcher Hand ID - SOCO [id number] 04:47:13 Test Item Value Reference Range Interpretation Comments PARTIAL THROMBOPLASTIN TIME 89.4 seconds 22.5-36.0 H (BEAKER) (test code = 760) PROTHROMBIN [id number] 04:45:19 Test Item Value Reference Range Interpretation Comments PROTIME (BEAKER) 14.2 seconds 11.9-14.2 (test code = 759) INR (BEAKER) (test 1.17 See_Comment [Automat ed message] code = 370) The system g4interactive generated this result transmitted ref erence range: <=5.90. The reference range was not used to int erpret this result as normal/abnormal . RECOMMENDED COUMADIN/WARFARIN INR THERAPY RANGESSTANDARD DOSE: 2.0 - 3.0 Includes: PROPHYLAXIS for venous thrombosis, systemic embolization; TREATMENT for venous thrombosis and/or pulmonary embolus.HIGH RISK: Target INR is 2.5-3.5 for patients with mechanical heart valves.CBC W/PLT COUNT & AUTO [id number] 04:32:49 Test Item Value Reference Range Interpretation Comments WHITE BLOOD CELL COUNT (BEAKER) 6.1 K/ L 3.5-10.5 (test code = 775) RED BLOOD CELL COUNT (BEAKER) 3.38 M/ L 4.63-6.08 L (test code = 761) HEMOGLOBIN (BEAKER) (test code = 10.4 GM/DL 13.7-17.5 L 410) HEMATOCRIT (BEAKER) (test code = 32.7 % 40.1-51.0 L 411) MEAN CORPUSCULAR VOLUME (BEAKER) 97 fL 79-92 H (test code = 753) MEAN CORPUSCULAR HEMOGLOBIN 30.8 pg 25.7-32.2 (BEAKER) (test code = 751) MEAN CORPUSCULAR HEMOGLOBIN CONC 31.8 GM/DL 32.3-36.5 L (BEAKER) (test code = 752) RED CELL DISTRIBUTION WIDTH 18.8 % 11.6-14.4 H (BEAKER) (test code = 412) PLATELET COUNT (BEAKER) (test 111 K/CU MM 150-450 L code = 756) MEAN PLATELET VOLUME (BEAKER) 9.4 fL 9.4-12.4 (test code = 754) NUCLEATED RED BLOOD CELLS 0 /100 WBC 0-0 (BEAKER) (test code = 413) NEUTROPHILS RELATIVE PERCENT 75 % (BEAKER) (test code = 429) LYMPHOCYTES RELATIVE PERCENT 16 % (BEAKER) (test code = 430) MONOCYTES RELATIVE PERCENT 7 % (BEAKER) (test code = 431) EOSINOPHILS RELATIVE PERCENT 1 % (BEAKER) (test code = 432) BASOPHILS RELATIVE PERCENT 0 % (BEAKER) (test code = 437) NEUTROPHILS ABSOLUTE COUNT 4.59 K/ L 1.78-5.38 (BEAKER) (test code = 670) LYMPHOCYTES ABSOLUTE COUNT 0.99 K/ L 1.32-3.57 L (BEAKER) (test code = 414) MONOCYTES ABSOLUTE COUNT (BEAKER) 0.41 K/ L 0.30-0.82 (test code = 415) EOSINOPHILS ABSOLUTE COUNT 0.08 K/ L 0.04-0.54 (BEAKER) (test code = 416) BASOPHILS ABSOLUTE COUNT (BEAKER) 0.01 K/ L 0.01-0.08 (test code = 417) IMMATURE GRANULOCYTES-RELATIVE 0.70 % 0.00-1.00 PERCENT (BEAKER) (test code = 2801) [id number] 21:56:55 Test Item Value Reference Range Interpretation Comments PARTIAL THROMBOPLASTIN TIME 73.3 seconds 22.5-36.0 H (BEAKER) (test code = 760) [id number] 14:19:09 Test Item Value Reference Range Interpretation Comments PARTIAL THROMBOPLASTIN TIME 88.0 seconds 22.5-36.0 H (BEAKER) (test code = 760) [id number] 07:59:56 Test Item Value Reference Range Interpretation Comments PHOSPHORUS (BEAKER) (test code = 3.2 mg/dL 2.3-4.7 604) Stitcher Hand ID - MARCOLACTATE DEHYDROGENASE (LDH)2022-09-13 07:59:56 Test Item Value Reference Range Interpretation Comments LACTATE DEHYDROGENASE (BEAKER) (test 209 U/L 125-220 code = 635) Stitcher Hand ID - [id number] 07:59:55 Test Item Value Reference Range Interpretation Comments MAGNESIUM (BEAKER) (test code = 1.9 mg/dL 1.6-2.6 627) Stitcher Hand ID - DEMETRIOOBASIC METABOLIC [id number] 07:59:54 Test Item Value Reference Range Interpretation Comments SODIUM (BEAKER) 137 meq/L 136-145 (test code = 381) POTASSIUM 4.6 meq/L 3.5-5.1 (BEAKER) (test code = 379) CHLORIDE (BEAKER) 104 meq/L 98-107 (test code = 382) CO2 (BEAKER) 27 meq/L 22-29 (test code = 355) BLOOD UREA 7 mg/dL 7-21 NITROGEN (BEAKER) (test code = 354) CREATININE 0.93 mg/dL 0.57-1.25 (BEAKER) (test code = 358) GLUCOSE RANDOM 92 mg/dL 70-105 (BEAKER) (test code = 652) CALCIUM (BEAKER) 8.5 mg/dL 8.4-10.2 (test code = 697) EGFR (BEAKER) 101 Interpretatio n of eGFR (test code = mL/min/1.73 values Stage De scription 1092) sq m Result G1 Chio l or high >=90 G2 Mildly decreased 60-89 G3a Mildl y to moderately 45-5 9 G3b Moderately to s everely 30-44 G4 Severl y decreased 15-29 G5 Kidney failure <15Reported eGF R is based on the CKD-EPI 2020 equation that d oes not use a race coefficientEsti mated GFR is not as accur ate as Creatinine Grace elle in predicting glom erular filtration rate . Estimated GFR is not appl icable for dialysis patien ts Stitcher Hand ID - [id number] 07:30:45 Test Item Value Reference Range Interpretation Comments PARTIAL THROMBOPLASTIN TIME 91.5 seconds 22.5-36.0 H (BEAKER) (test code = 760) PROTHROMBIN TIME/[id number] 07:28:49 Test Item Value Reference Range Interpretation Comments PROTIME (BEAKER) 13.8 seconds 11.9-14.2 (test code = 759) INR (BEAKER) (test 1.08 See_Comment [Automat ed message] code = 370) The system g4interactive generated this result transmitted ref erence range: <=5.90. The reference range was not used to int erpret this result as normal/abnormal . RECOMMENDED COUMADIN/WARFARIN INR THERAPY RANGESSTANDARD DOSE: 2.0 - 3.0 Includes: PROPHYLAXIS for venous thrombosis, systemic embolization; TREATMENT for venous thrombosis and/or pulmonary embolus.HIGH RISK: Target INR is 2.5-3.5 for patients with mechanical heart valves.CBC W/PLT COUNT & AUTO [id number] 07:06:44 Test Item Value Reference Range Interpretation Comments WHITE BLOOD CELL COUNT (BEAKER) 4.4 K/ L 3.5-10.5 (test code = 775) RED BLOOD CELL COUNT (BEAKER) 3.32 M/ L 4.63-6.08 L (test code = 761) HEMOGLOBIN (BEAKER) (test code = 10.0 GM/DL 13.7-17.5 L 410) HEMATOCRIT (BEAKER) (test code = 31.8 % 40.1-51.0 L 411) MEAN CORPUSCULAR VOLUME (BEAKER) 96 fL 79-92 H (test code = 753) MEAN CORPUSCULAR HEMOGLOBIN 30.1 pg 25.7-32.2 (BEAKER) (test code = 751) MEAN CORPUSCULAR HEMOGLOBIN CONC 31.4 GM/DL 32.3-36.5 L (BEAKER) (test code = 752) RED CELL DISTRIBUTION WIDTH 18.7 % 11.6-14.4 H (BEAKER) (test code = 412) PLATELET COUNT (BEAKER) (test 100 K/CU MM 150-450 L code = 756) MEAN PLATELET VOLUME (BEAKER) 9.2 fL 9.4-12.4 L (test code = 754) NUCLEATED RED BLOOD CELLS 0 /100 WBC 0-0 (BEAKER) (test code = 413) NEUTROPHILS RELATIVE PERCENT 66 % (BEAKER) (test code = 429) LYMPHOCYTES RELATIVE PERCENT 24 % (BEAKER) (test code = 430) MONOCYTES RELATIVE PERCENT 8 % (BEAKER) (test code = 431) EOSINOPHILS RELATIVE PERCENT 1 % (BEAKER) (test code = 432) BASOPHILS RELATIVE PERCENT 0 % (BEAKER) (test code = 437) NEUTROPHILS ABSOLUTE COUNT 2.91 K/ L 1.78-5.38 (BEAKER) (test code = 670) LYMPHOCYTES ABSOLUTE COUNT 1.07 K/ L 1.32-3.57 L (BEAKER) (test code = 414) MONOCYTES ABSOLUTE COUNT (BEAKER) 0.36 K/ L 0.30-0.82 (test code = 415) EOSINOPHILS ABSOLUTE COUNT 0.06 K/ L 0.04-0.54 (BEAKER) (test code = 416) BASOPHILS ABSOLUTE COUNT (BEAKER) 0.01 K/ L 0.01-0.08 (test code = 417) IMMATURE GRANULOCYTES-RELATIVE 0.70 % 0.00-1.00 PERCENT (BEAKER) (test code = 2801) [id number] 01:04:01 Test Item Value Reference Range Interpretation Comments PARTIAL THROMBOPLASTIN TIME 105.8 seconds 22.5-36.0 H (BEAKER) (test code = 760) [id number] 18:36:49 Test Item Value Reference Range Interpretation Comments PARTIAL THROMBOPLASTIN TIME 84.1 seconds 22.5-36.0 H (BEAKER) (test code = 760) [id number] 09:52:39 Test Item Value Reference Range Interpretation Comments PARTIAL THROMBOPLASTIN TIME 63.3 seconds 22.5-36.0 H (BEAKER) (test code = 760) [id number] 02:49:51 Test Item Value Reference Range Interpretation Comments PHOSPHORUS (BEAKER) (test code = 3.3 mg/dL 2.3-4.7 604) Stitcher Hand ID - SOCO LLACTATE DEHYDROGENASE (LDH)2022-09-12 02:49:51 Test Item Value Reference Range Interpretation Comments LACTATE DEHYDROGENASE (BEAKER) (test 230 U/L 125-220 H code = 635) Stitcher Hand ID - SOCO [id number] 02:49:50 Test Item Value Reference Range Interpretation Comments MAGNESIUM (BEAKER) (test code = 2.1 mg/dL 1.6-2.6 627) Stitcher Hand ID - SOCO LBASIC METABOLIC [id number] 02:49:49 Test Item Value Reference Range Interpretation Comments SODIUM (BEAKER) 135 meq/L 136-145 L (test code = 381) POTASSIUM 4.5 meq/L 3.5-5.1 (BEAKER) (test code = 379) CHLORIDE (BEAKER) 103 meq/L 98-107 (test code = 382) CO2 (BEAKER) 25 meq/L 22-29 (test code = 355) BLOOD UREA 9 mg/dL 7-21 NITROGEN (BEAKER) (test code = 354) CREATININE 1.09 mg/dL 0.57-1.25 (BEAKER) (test code = 358) GLUCOSE RANDOM 126 mg/dL 70-105 H (BEAKER) (test code = 652) CALCIUM (BEAKER) 8.4 mg/dL 8.4-10.2 (test code = 697) EGFR (BEAKER) 83 Interpretatio n of eGFR (test code = mL/min/1.73 values Stage D escription 1092) sq m Result G1 Chio l or high >=90 G2 Mildly decreased 60-89 G3a Mildl y to moderately 45-5 9 G3b Moderately to s everely 30-44 G4 Severl y decreased 15-29 G5 Kidney failure <15Reported eGF R is based on the CKD-EPI 2020 equation that d oes not use a race coefficientEsti mated GFR is not as accur ate as Creatinine Grace elle in predicting glom erular filtration rate . Estimated GFR is not appl icable for dialysis patien ts Stitcher Hand ID - SOCO [id number] 02:44:08 Test Item Value Reference Range Interpretation Comments PARTIAL THROMBOPLASTIN TIME 32.7 seconds 22.5-36.0 (BEAKER) (test code = 760) PROTHROMBIN TIME/[id number] 02:43:09 Test Item Value Reference Range Interpretation Comments PROTIME (BEAKER) 14.1 seconds 11.9-14.2 (test code = 759) INR (BEAKER) (test 1.15 See_Comment [Automat ed message] code = 370) The system g4interactive generated this result transmitted ref erence range: <=5.90. The reference range was not used to int erpret this result as normal/abnormal . RECOMMENDED COUMADIN/WARFARIN INR THERAPY RANGESSTANDARD DOSE: 2.0 - 3.0 Includes: PROPHYLAXIS for venous thrombosis, systemic embolization; TREATMENT for venous thrombosis and/or pulmonary embolus.HIGH RISK: Target INR is 2.5-3.5 for patients with mechanical heart valves.CBC W/PLT COUNT & AUTO [id number] 02:31:26 Test Item Value Reference Range Interpretation Comments WHITE BLOOD CELL COUNT (BEAKER) 5.2 K/ L 3.5-10.5 (test code = 775) RED BLOOD CELL COUNT (BEAKER) 3.59 M/ L 4.63-6.08 L (test code = 761) HEMOGLOBIN (BEAKER) (test code = 10.8 GM/DL 13.7-17.5 L 410) HEMATOCRIT (BEAKER) (test code = 34.4 % 40.1-51.0 L 411) MEAN CORPUSCULAR VOLUME (BEAKER) 96 fL 79-92 H (test code = 753) MEAN CORPUSCULAR HEMOGLOBIN 30.1 pg 25.7-32.2 (BEAKER) (test code = 751) MEAN CORPUSCULAR HEMOGLOBIN CONC 31.4 GM/DL 32.3-36.5 L (BEAKER) (test code = 752) RED CELL DISTRIBUTION WIDTH 18.6 % 11.6-14.4 H (BEAKER) (test code = 412) PLATELET COUNT (BEAKER) (test 112 K/CU MM 150-450 L code = 756) MEAN PLATELET VOLUME (BEAKER) 8.9 fL 9.4-12.4 L (test code = 754) NUCLEATED RED BLOOD CELLS 0 /100 WBC 0-0 (BEAKER) (test code = 413) NEUTROPHILS RELATIVE PERCENT 73 % (BEAKER) (test code = 429) LYMPHOCYTES RELATIVE PERCENT 17 % (BEAKER) (test code = 430) MONOCYTES RELATIVE PERCENT 7 % (BEAKER) (test code = 431) EOSINOPHILS RELATIVE PERCENT 2 % (BEAKER) (test code = 432) BASOPHILS RELATIVE PERCENT 0 % (BEAKER) (test code = 437) NEUTROPHILS ABSOLUTE COUNT 3.78 K/ L 1.78-5.38 (BEAKER) (test code = 670) LYMPHOCYTES ABSOLUTE COUNT 0.87 K/ L 1.32-3.57 L (BEAKER) (test code = 414) MONOCYTES ABSOLUTE COUNT (BEAKER) 0.38 K/ L 0.30-0.82 (test code = 415) EOSINOPHILS ABSOLUTE COUNT 0.08 K/ L 0.04-0.54 (BEAKER) (test code = 416) BASOPHILS ABSOLUTE COUNT (BEAKER) 0.01 K/ L 0.01-0.08 (test code = 417) IMMATURE GRANULOCYTES-RELATIVE 0.80 % 0.00-1.00 PERCENT (BEAKER) (test code = 2801) [id number] 19:45:21 Test Item Value Reference Range Interpretation Comments PARTIAL THROMBOPLASTIN TIME 34.8 seconds 22.5-36.0 (BEAKER) (test code = 760) [id number] 06:42:33 Test Item Value Reference Range Interpretation Comments PARTIAL THROMBOPLASTIN TIME 112.2 seconds 22.5-36.0 H (BEAKER) (test code = 760) [id number] 05:23:37 Test Item Value Reference Range Interpretation Comments PHOSPHORUS (BEAKER) (test code = 3.4 mg/dL 2.3-4.7 604) [employer] JESSICA WAN LLACTATE DEHYDROGENASE (LDH)2022-09-11 05:23:37 Test Item Value Reference Range Interpretation Comments LACTATE DEHYDROGENASE (BEAKER) (test 303 U/L 125-220 H code = 635) [employer] ID Sal WAN [id number] 05:23:36 Test Item Value Reference Range Interpretation Comments MAGNESIUM (BEAKER) (test code = 2.0 mg/dL 1.6-2.6 627) [employer] ID - SOCO LBASIC METABOLIC [id number] 05:23:35 Test Item Value Reference Range Interpretation Comments SODIUM (BEAKER) 134 meq/L 136-145 L (test code = 381) POTASSIUM 5.0 meq/L 3.5-5.1 (BEAKER) (test code = 379) CHLORIDE (BEAKER) 100 meq/L 98-107 (test code = 382) CO2 (BEAKER) 27 meq/L 22-29 (test code = 355) BLOOD UREA 9 mg/dL 7-21 NITROGEN (BEAKER) (test code = 354) CREATININE 1.01 mg/dL 0.57-1.25 (BEAKER) (test code = 358) GLUCOSE RANDOM 98 mg/dL 70-105 (BEAKER) (test code = 652) CALCIUM (BEAKER) 8.6 mg/dL 8.4-10.2 (test code = 697) EGFR (BEAKER) 91 Interpretatio n of eGFR (test code = mL/min/1.73 values Stage De scription 1092) sq m Result G1 Chio l or high >=90 G2 Mildly decreased 60-89 G3a Mildl y to moderately 45-5 9 G3b Moderately to s everely 30-44 G4 Severl y decreased 15-29 G5 Kidney failure <15Reported eGF R is based on the CKD-EPI 2020 equation that d oes not use a race coefficientEsti mated GFR is not as accur ate as Creatinine Grace elle in predicting glom erular filtration rate . Estimated GFR is not appl icable for dialysis patien ts St[employer]cher Hand ID - PIAYA LCBC W/PLT COUNT & AUTO [id number] 05:15:54 Test Item Value Reference Range Interpretation Comments WHITE BLOOD CELL COUNT (BEAKER) 6.2 K/ L 3.5-10.5 (test code = 775) RED BLOOD CELL COUNT (BEAKER) 3.59 M/ L 4.63-6.08 L (test code = 761) HEMOGLOBIN (BEAKER) (test code = 10.8 GM/DL 13.7-17.5 L 410) HEMATOCRIT (BEAKER) (test code = 33.7 % 40.1-51.0 L 411) MEAN CORPUSCULAR VOLUME (BEAKER) 94 fL 79-92 H (test code = 753) MEAN CORPUSCULAR HEMOGLOBIN 30.1 pg 25.7-32.2 (BEAKER) (test code = 751) MEAN CORPUSCULAR HEMOGLOBIN CONC 32.0 GM/DL 32.3-36.5 L (BEAKER) (test code = 752) RED CELL DISTRIBUTION WIDTH 18.5 % 11.6-14.4 H (BEAKER) (test code = 412) PLATELET COUNT (BEAKER) (test 125 K/CU MM 150-450 L code = 756) MEAN PLATELET VOLUME (BEAKER) 8.6 fL 9.4-12.4 L (test code = 754) NUCLEATED RED BLOOD CELLS 0 /100 WBC 0-0 (BEAKER) (test code = 413) NEUTROPHILS RELATIVE PERCENT 74 % (BEAKER) (test code = 429) LYMPHOCYTES RELATIVE PERCENT 17 % (BEAKER) (test code = 430) MONOCYTES RELATIVE PERCENT 6 % (BEAKER) (test code = 431) EOSINOPHILS RELATIVE PERCENT 2 % (BEAKER) (test code = 432) BASOPHILS RELATIVE PERCENT 0 % (BEAKER) (test code = 437) NEUTROPHILS ABSOLUTE COUNT 4.53 K/ L 1.78-5.38 (BEAKER) (test code = 670) LYMPHOCYTES ABSOLUTE COUNT 1.06 K/ L 1.32-3.57 L (BEAKER) (test code = 414) MONOCYTES ABSOLUTE COUNT (BEAKER) 0.39 K/ L 0.30-0.82 (test code = 415) EOSINOPHILS ABSOLUTE COUNT 0.09 K/ L 0.04-0.54 (BEAKER) (test code = 416) BASOPHILS ABSOLUTE COUNT (BEAKER) 0.01 K/ L 0.01-0.08 (test code = 417) IMMATURE GRANULOCYTES-RELATIVE 1.10 % 0.00-1.00 H PERCENT (BEAKER) (test code = 2801) PROTHROMBIN [id number] 05:06:28 Test Item Value Reference Range Interpretation Comments PROTIME (BEAKER) 14.2 seconds 11.9-14.2 (test code = 759) INR (BEAKER) (test 1.16 See_Comment [Automat ed message] code = 370) The system g4interactive generated this result transmitted ref erence range: <=5.90. The reference range was not used to int erpret this result as normal/abnormal . RECOMMENDED COUMADIN/WARFARIN INR THERAPY RANGESSTANDARD DOSE: 2.0 - 3.0 Includes: PROPHYLAXIS for venous thrombosis, systemic embolization; TREATMENT for venous thrombosis and/or pulmonary embolus.HIGH RISK: Target INR is 2.5-3.5 for patients with mechanical heart valves.[id number] 20:47:47 Test Item Value Reference Range Interpretation Comments PARTIAL THROMBOPLASTIN TIME 55.2 seconds 22.5-36.0 H (BEAKER) (test code = 760) [id number] 12:48:39 Test Item Value Reference Range Interpretation Comments PARTIAL THROMBOPLASTIN TIME 44.5 seconds 22.5-36.0 H (BEAKER) (test code = 760) [id number] 06:25:50 Test Item Value Reference Range Interpretation Comments PARTIAL THROMBOPLASTIN TIME 70.9 seconds 22.5-36.0 H (BEAKER) (test code = 760) [id number] 04:11:51 Test Item Value Reference Range Interpretation Comments PHOSPHORUS (BEAKER) (test code = 3.7 mg/dL 2.3-4.7 604) Stitcher Hand ID - SO MLACTATE DEHYDROGENASE (LDH)2022-09-10 04:11:51 Test Item Value Reference Range Interpretation Comments LACTATE DEHYDROGENASE (BEAKER) (test 261 U/L 125-220 H code = 635) Stitcher Hand ID - SO MBASIC METABOLIC [id number] 04:11:50 Test Item Value Reference Range Interpretation Comments SODIUM (BEAKER) 132 meq/L 136-145 L (test code = 381) POTASSIUM 5.0 meq/L 3.5-5.1 (BEAKER) (test code = 379) CHLORIDE (BEAKER) 99 meq/L 98-107 (test code = 382) CO2 (BEAKER) 25 meq/L 22-29 (test code = 355) BLOOD UREA 11 mg/dL 7-21 NITROGEN (BEAKER) (test code = 354) CREATININE 0.99 mg/dL 0.57-1.25 (BEAKER) (test code = 358) GLUCOSE RANDOM 94 mg/dL 70-105 (BEAKER) (test code = 652) CALCIUM (BEAKER) 8.8 mg/dL 8.4-10.2 (test code = 697) EGFR (BEAKER) 93 Interpretatio n of eGFR (test code = mL/min/1.73 values Stage De scription 1092) sq m Result G1 Chio l or high >=90 G2 Mildly decreased 60-89 G3a Mildl y to moderately 45-5 9 G3b Moderately to s everely 30-44 G4 Severl y decreased 15-29 G5 Kidney failure <15Reported eGF R is based on the CKD-EPI 2020 equation that d oes not use a race coefficientEsti mated GFR is not as accur ate as Creatinine Grace almeida in predicting glom erular filtration rate . Estimated GFR is not appl icable for dialysis patien ts Stitcher Hand ID - SO [id number] 04:11:50 Test Item Value Reference Range Interpretation Comments MAGNESIUM (BEAKER) (test code = 2.1 mg/dL 1.6-2.6 627) Stitcher Hand ID - SO [id number] 03:46:39 Test Item Value Reference Range Interpretation Comments PARTIAL THROMBOPLASTIN TIME 46.0 seconds 22.5-36.0 H (BEAKER) (test code = 760) PROTHROMBIN [id number] 03:45:36 Test Item Value Reference Range Interpretation Comments PROTIME (BEAKER) 13.8 seconds 11.9-14.2 (test code = 759) INR (BEAKER) (test 1.13 See_Comment [Automat ed message] code = 370) The system g4interactive generated this result transmitted ref erence range: <=5.90. The reference range was not used to int erpret this result as normal/abnormal . RECOMMENDED COUMADIN/WARFARIN INR THERAPY RANGESSTANDARD DOSE: 2.0 - 3.0 Includes: PROPHYLAXIS for venous thrombosis, systemic embolization; TREATMENT for venous thrombosis and/or pulmonary embolus.HIGH RISK: Target INR is 2.5-3.5 for patients with mechanical heart valves.CBC W/PLT COUNT & AUTO [id number] 03:15:51 Test Item Value Reference Range Interpretation Comments WHITE BLOOD CELL COUNT (BEAKER) 5.2 K/ L 3.5-10.5 (test code = 775) RED BLOOD CELL COUNT (BEAKER) 3.91 M/ L 4.63-6.08 L (test code = 761) HEMOGLOBIN (BEAKER) (test code = 11.7 GM/DL 13.7-17.5 L 410) HEMATOCRIT (BEAKER) (test code = 36.9 % 40.1-51.0 L 411) MEAN CORPUSCULAR VOLUME (BEAKER) 94 fL 79-92 H (test code = 753) MEAN CORPUSCULAR HEMOGLOBIN 29.9 pg 25.7-32.2 (BEAKER) (test code = 751) MEAN CORPUSCULAR HEMOGLOBIN CONC 31.7 GM/DL 32.3-36.5 L (BEAKER) (test code = 752) RED CELL DISTRIBUTION WIDTH 18.2 % 11.6-14.4 H (BEAKER) (test code = 412) PLATELET COUNT (BEAKER) (test 119 K/CU MM 150-450 L code = 756) MEAN PLATELET VOLUME (BEAKER) 8.6 fL 9.4-12.4 L (test code = 754) NUCLEATED RED BLOOD CELLS 0 /100 WBC 0-0 (BEAKER) (test code = 413) NEUTROPHILS RELATIVE PERCENT 62 % (BEAKER) (test code = 429) LYMPHOCYTES RELATIVE PERCENT 28 % (BEAKER) (test code = 430) MONOCYTES RELATIVE PERCENT 7 % (BEAKER) (test code = 431) EOSINOPHILS RELATIVE PERCENT 2 % (BEAKER) (test code = 432) BASOPHILS RELATIVE PERCENT 0 % (BEAKER) (test code = 437) NEUTROPHILS ABSOLUTE COUNT 3.22 K/ L 1.78-5.38 (BEAKER) (test code = 670) LYMPHOCYTES ABSOLUTE COUNT 1.42 K/ L 1.32-3.57 (BEAKER) (test code = 414) MONOCYTES ABSOLUTE COUNT (BEAKER) 0.34 K/ L 0.30-0.82 (test code = 415) EOSINOPHILS ABSOLUTE COUNT 0.10 K/ L 0.04-0.54 (BEAKER) (test code = 416) BASOPHILS ABSOLUTE COUNT (BEAKER) 0.02 K/ L 0.01-0.08 (test code = 417) IMMATURE GRANULOCYTES-RELATIVE 1.40 % 0.00-1.00 H PERCENT (BEAKER) (test code = 2801) [id number] 20:38:05 Test Item Value Reference Range Interpretation Comments POTASSIUM (BEAKER) (test code = 5.2 meq/L 3.5-5.1 H 379) Stitcher Hand ID - [id number] 20:36:05 Test Item Value Reference Range Interpretation Comments PARTIAL THROMBOPLASTIN TIME 53.9 seconds 22.5-36.0 H (BEAKER) (test code = 760) [id number] 12:49:44 Test Item Value Reference Range Interpretation Comments PARTIAL THROMBOPLASTIN TIME 62.8 seconds 22.5-36.0 H (BEAKER) (test code = 760) [id number] 06:49:24 Test Item Value Reference Range Interpretation Comments PHOSPHORUS (BEAKER) (test code = 4.2 mg/dL 2.3-4.7 604) Stitcher Hand ID - SO MLACTATE DEHYDROGENASE (LDH)2022-09-09 06:49:24 Test Item Value Reference Range Interpretation Comments LACTATE DEHYDROGENASE (BEAKER) (test 256 U/L 125-220 H code = 635) Stitcher Hand ID - SO MBASIC METABOLIC [id number] 06:49:23 Test Item Value Reference Range Interpretation Comments SODIUM (BEAKER) 136 meq/L 136-145 (test code = 381) POTASSIUM 5.3 meq/L 3.5-5.1 H (BEAKER) (test code = 379) CHLORIDE (BEAKER) 101 meq/L 98-107 (test code = 382) CO2 (BEAKER) 28 meq/L 22-29 (test code = 355) BLOOD UREA 8 mg/dL 7-21 NITROGEN (BEAKER) (test code = 354) CREATININE 1.03 mg/dL 0.57-1.25 (BEAKER) (test code = 358) GLUCOSE RANDOM 109 mg/dL 70-105 H (BEAKER) (test code = 652) CALCIUM (BEAKER) 9.0 mg/dL 8.4-10.2 (test code = 697) EGFR (BEAKER) 89 Interpretatio n of eGFR (test code = mL/min/1.73 values Stage De scription 1092) sq m Result G1 Chio l or high >=90 G2 Mildly decreased 60-89 G3a Mildl y to moderately 45-5 9 G3b Moderately to s everely 30-44 G4 Severl y decreased 15-29 G5 Kidney failure <15Reported eGF R is based on the CKD-EPI 2020 equation that d oes not use a race coefficientEsti mated GFR is not as accur ate as Creatinine Grace almeida in predicting glom erular filtration rate . Estimated GFR is not appl icable for dialysis patien ts Stitcher Hand ID - SO [id number] 06:49:23 Test Item Value Reference Range Interpretation Comments MAGNESIUM (BEAKER) (test code = 2.1 mg/dL 1.6-2.6 627) Stitcher Hand ID - SO [id number] 06:40:42 Test Item Value Reference Range Interpretation Comments PARTIAL THROMBOPLASTIN TIME 65.2 seconds 22.5-36.0 H (BEAKER) (test code = 760) PROTHROMBIN [id number] 06:39:23 Test Item Value Reference Range Interpretation Comments PROTIME (BEAKER) 14.8 seconds 11.9-14.2 H (test code = 759) INR (BEAKER) (test 1.23 See_Comment [Automat ed message] code = 370) The system g4interactive generated this result transmitted ref erence range: <=5.90. The reference range was not used to int erpret this result as normal/abnormal . RECOMMENDED COUMADIN/WARFARIN INR THERAPY RANGESSTANDARD DOSE: 2.0 - 3.0 Includes: PROPHYLAXIS for venous thrombosis, systemic embolization; TREATMENT for venous thrombosis and/or pulmonary embolus.HIGH RISK: Target INR is 2.5-3.5 for patients with mechanical heart valves.CBC W/PLT COUNT & AUTO [id number] 06:28:57 Test Item Value Reference Range Interpretation Comments WHITE BLOOD CELL COUNT (BEAKER) 6.1 K/ L 3.5-10.5 (test code = 775) RED BLOOD CELL COUNT (BEAKER) 3.88 M/ L 4.63-6.08 L (test code = 761) HEMOGLOBIN (BEAKER) (test code = 11.5 GM/DL 13.7-17.5 L 410) HEMATOCRIT (BEAKER) (test code = 36.6 % 40.1-51.0 L 411) MEAN CORPUSCULAR VOLUME (BEAKER) 94 fL 79-92 H (test code = 753) MEAN CORPUSCULAR HEMOGLOBIN 29.6 pg 25.7-32.2 (BEAKER) (test code = 751) MEAN CORPUSCULAR HEMOGLOBIN CONC 31.4 GM/DL 32.3-36.5 L (BEAKER) (test code = 752) RED CELL DISTRIBUTION WIDTH 17.7 % 11.6-14.4 H (BEAKER) (test code = 412) PLATELET COUNT (BEAKER) (test 143 K/CU MM 150-450 L code = 756) MEAN PLATELET VOLUME (BEAKER) 8.3 fL 9.4-12.4 L (test code = 754) NUCLEATED RED BLOOD CELLS 0 /100 WBC 0-0 (BEAKER) (test code = 413) NEUTROPHILS RELATIVE PERCENT 62 % (BEAKER) (test code = 429) LYMPHOCYTES RELATIVE PERCENT 26 % (BEAKER) (test code = 430) MONOCYTES RELATIVE PERCENT 9 % (BEAKER) (test code = 431) EOSINOPHILS RELATIVE PERCENT 1 % (BEAKER) (test code = 432) BASOPHILS RELATIVE PERCENT 0 % (BEAKER) (test code = 437) NEUTROPHILS ABSOLUTE COUNT 3.81 K/ L 1.78-5.38 (BEAKER) (test code = 670) LYMPHOCYTES ABSOLUTE COUNT 1.59 K/ L 1.32-3.57 (BEAKER) (test code = 414) MONOCYTES ABSOLUTE COUNT (BEAKER) 0.52 K/ L 0.30-0.82 (test code = 415) EOSINOPHILS ABSOLUTE COUNT 0.08 K/ L 0.04-0.54 (BEAKER) (test code = 416) BASOPHILS ABSOLUTE COUNT (BEAKER) 0.02 K/ L 0.01-0.08 (test code = 417) IMMATURE GRANULOCYTES-RELATIVE 1.50 % 0.00-1.00 H PERCENT (BEAKER) (test code = 2801) [id number] 20:45:08 Test Item Value Reference Range Interpretation Comments PARTIAL THROMBOPLASTIN TIME 56.9 seconds 22.5-36.0 H (BEAKER) (test code = 760) U/S, HEPATIC PORTAL VESSEL WITH [id number] 16:20:00Please assess for portal/hepatic/splanchnic vein thrombosis Reason for exam:->splenomegaly Shouldthis be performed at the bedside?->Yes [facility] : 1970 Sex: MFINAL REPORT Right upper quadrant Ultrasound with Doppler History: Splenomegaly Comparison: CT abdomen and pelvis 09/03/2022 Findings: The study is obtained utilizing conventional grayscale imaging as well as color flow with spectral analysis. The study is technically limited by patientbody habitus. Grossly unremarkable hepatic echotexture and contour. No definite hepatic mass or intrahepatic biliary dilation. The main portal vein is patent, with expected hepatopedal flow. The main portal vein measures 9.9 mm in caliber. The right and left portal veins also appear patent, with expected hepatopedal flow. The central hepatic arteries are poorly visualized on this examination, likely due to patient body habitus. Gallbladder without shadowing gallstones, wall thickening, or pericholecystic fluid. No sonographic Rojas's sign. Common bile duct measures 6.7mm. Pancreas not well seen due to overlying bowel gas. Right kidney demonstrates no hydronephrosis, shadowing calculus, or mass lesion. Right kidney measures 11.3 x 7.5 x 6.6cm. The spleen appears mildly enlarged and measures 14 cmin craniocaudal dimension. Impression: 1. Technically limited study due to patient body habitus.2. Mild splenomegaly.3. The central portal veins appear patent. Signed: [facility] VerifiedDate/Time: 09/08/2022 16:20:42 [id number] 13:41:34 Test Item Value Reference Range Interpretation Comments PARTIAL THROMBOPLASTIN TIME 76.3 seconds 22.5-36.0 H (BEAKER) (test code = 760) LACTATE DEHYDROGENASE (LDH)2022-09-08 07:03:20 Test Item Value Reference Range Interpretation Comments LACTATE DEHYDROGENASE (BEAKER) (test 250 U/L 125-220 H code = 635) Stitcher Hand ID - [id number] 07:03:19 Test Item Value Reference Range Interpretation Comments PHOSPHORUS (BEAKER) (test code = 3.7 mg/dL 2.3-4.7 604) Stitcher Hand ID - MARCOBASIC METABOLIC [id number] 07:03:18 Test Item Value Reference Range Interpretation Comments SODIUM (BEAKER) 135 meq/L 136-145 L (test code = 381) POTASSIUM 4.4 meq/L 3.5-5.1 (BEAKER) (test code = 379) CHLORIDE (BEAKER) 102 meq/L 98-107 (test code = 382) CO2 (BEAKER) 29 meq/L 22-29 (test code = 355) BLOOD UREA 10 mg/dL 7-21 NITROGEN (BEAKER) (test code = 354) CREATININE 1.06 mg/dL 0.57-1.25 (BEAKER) (test code = 358) GLUCOSE RANDOM 109 mg/dL 70-105 H (BEAKER) (test code = 652) CALCIUM (BEAKER) 8.6 mg/dL 8.4-10.2 (test code = 697) EGFR (BEAKER) 86 Interpretatio n of eGFR (test code = mL/min/1.73 values Stage De scription 1092) sq m Result G1 Chio l or high >=90 G2 Mildly decreased 60-89 G3a Mildl y to moderately 45-5 9 G3b Moderately to s everely 30-44 G4 Severl y decreased 15-29 G5 Kidney failure <15Reported eGF R is based on the CKD-EPI 202 equation that d oes not use a race coefficientEsti mated GFR is not as accur ate as Creatinine Grace elle in predicting glom erular filtration rate . Estimated GFR is not appl icable for dialysis patien ts Stitcher Hand ID - [id number] 07:03:18 Test Item Value Reference Range Interpretation Comments MAGNESIUM (BEAKER) (test code = 2.2 mg/dL 1.6-2.6 627) Stitcher Hand ID - [id number] 06:51:58 Test Item Value Reference Range Interpretation Comments PARTIAL THROMBOPLASTIN TIME 59.8 seconds 22.5-36.0 H (BEAKER) (test code = 760) PROTHROMBIN [id number] 06:50:55 Test Item Value Reference Range Interpretation Comments PROTIME (BEAKER) 17.3 seconds 11.9-14.2 H (test code = 759) INR (BEAKER) (test 1.51 See_Comment [Automat ed message] code = 370) The system g4interactive generated this result transmitted ref erence range: <=5.90. The reference range was not used to int erpret this result as normal/abnormal . RECOMMENDED COUMADIN/WARFARIN INR THERAPY RANGESSTANDARD DOSE: 2.0 - 3.0 Includes: PROPHYLAXIS for venous thrombosis, systemic embolization; TREATMENT for venous thrombosis and/or pulmonary embolus.HIGH RISK: Target INR is 2.5-3.5 for patients with mechanical heart valves.CBC W/PLT COUNT & AUTO [id number] 06:36:15 Test Item Value Reference Range Interpretation Comments WHITE BLOOD CELL COUNT (BEAKER) 5.4 K/ L 3.5-10.5 (test code = 775) RED BLOOD CELL COUNT (BEAKER) 3.35 M/ L 4.63-6.08 L (test code = 761) HEMOGLOBIN (BEAKER) (test code = 10.1 GM/DL 13.7-17.5 L 410) HEMATOCRIT (BEAKER) (test code = 31.5 % 40.1-51.0 L 411) MEAN CORPUSCULAR VOLUME (BEAKER) 94 fL 79-92 H (test code = 753) MEAN CORPUSCULAR HEMOGLOBIN 30.1 pg 25.7-32.2 (BEAKER) (test code = 751) MEAN CORPUSCULAR HEMOGLOBIN CONC 32.1 GM/DL 32.3-36.5 L (BEAKER) (test code = 752) RED CELL DISTRIBUTION WIDTH 17.2 % 11.6-14.4 H (BEAKER) (test code = 412) PLATELET COUNT (BEAKER) (test 129 K/CU MM 150-450 L code = 756) MEAN PLATELET VOLUME (BEAKER) 8.7 fL 9.4-12.4 L (test code = 754) NUCLEATED RED BLOOD CELLS 0 /100 WBC 0-0 (BEAKER) (test code = 413) NEUTROPHILS RELATIVE PERCENT 66 % (BEAKER) (test code = 429) LYMPHOCYTES RELATIVE PERCENT 22 % (BEAKER) (test code = 430) MONOCYTES RELATIVE PERCENT 9 % (BEAKER) (test code = 431) EOSINOPHILS RELATIVE PERCENT 2 % (BEAKER) (test code = 432) BASOPHILS RELATIVE PERCENT 0 % (BEAKER) (test code = 437) NEUTROPHILS ABSOLUTE COUNT 3.56 K/ L 1.78-5.38 (BEAKER) (test code = 670) LYMPHOCYTES ABSOLUTE COUNT 1.19 K/ L 1.32-3.57 L (BEAKER) (test code = 414) MONOCYTES ABSOLUTE COUNT (BEAKER) 0.50 K/ L 0.30-0.82 (test code = 415) EOSINOPHILS ABSOLUTE COUNT 0.08 K/ L 0.04-0.54 (BEAKER) (test code = 416) BASOPHILS ABSOLUTE COUNT (BEAKER) 0.01 K/ L 0.01-0.08 (test code = 417) IMMATURE GRANULOCYTES-RELATIVE 1.10 % 0.00-1.00 H PERCENT (BEAKER) (test code = 2801) BLOOD [id number] 06:00:45 Test Item Value Reference Range Interpretation Comments CULTURE (BEAKER) (test No growth in 5 days code = 1095) BLOOD [id number] 06:00:45 Test Item Value Reference Range Interpretation Comments CULTURE (BEAKER) (test No growth in 5 days code = 1095) [id number] 20:36:47 Test Item Value Reference Range Interpretation Comments PARTIAL THROMBOPLASTIN TIME 62.0 seconds 22.5-36.0 H (BEAKER) (test code = 760) SARS-CoV2/RT-PCR ([facility])2022-09-07 18:39:30 Test Item Value Reference Interpretation Comments Range SARS-COV2/RT-PCR Negative Negative The SARS-Co V-2 (test code = target nucleic 89402-9) acids are not detected in thi s specimen. Negat issac results do not preclude SARS-C oV-2 infection and should not be u sed as the sole bas is for patient management decisions. Nega tive results must be combined with clinical observations, patient history , and epidemiolog ical information. A false negative result may occu r if a specimen is improperly collected, transported or handled. This S ARS CoV-2 test is a rapid, real-katlin e RT-PCR test intended for th e qualitative detection of nucleic acid fr om SARS-CoV-2 in a nasopharyngeal swab specimen colle neela from individual s suspected of COVID-19 by the ir healthcare provider. SCOTT (test code = This test has been SCOTT) authorized by FDA under an EUA for use by authorized laboratories. This test is only authorized for the duration of the declaration that circumstances exist justifying the authorization of emergency use of in vitro diagnostic tests for detection and/or diagnosis of COVID-19 under Section 564(b)(1) of the Federal Food, Drug and Cosmetic Act, 21 U.S.C. 360bbb-3(b)(1), unless the authorization is terminated or revoked sooner. Fact Sheet for Healthcare Providers: https://www.Mybandstock/Documents/Xp ert%20Xpress%20SAR S%20CoV-2/Fact%20S heets/302-5912%20S ARS-COV-2%20HEALTH CARE%20PROVIDERS%2 0FACT%20SHEET.pdf Fact Sheet for Healthcare Patients: https://www.[employer]band[employer]/Documents/Xp ert%20Xpress%20SAR S%20CoV-2/Fact%20S heets/302-3801%20S ARS-COV-2%20PATIEN T%20FACT%20SHEET.p df Lab Interpretation Normal (test code = 42779-5) [facility])2022-09-07 18:39:30 Test Item Value Reference Range Interpretation Comments SARS-COV2/RT-PCR Negative Negative The SARS-Co V-2 target (test code = nucleic acids a re not [id number]) detected in thi s specimen. Negative result s do not preclude SARS-C oV-2 infection and s hould not be used as the ludmila e basis for patient managem ent decisions. Nega tive results must be combine d with clinical observ ations, patient history , and epidemiological information. A false negativ e result may occur if a spec imen is improperly gia ected, transported or handled. This SARS CoV-2 test is a rapid, real-time RT-PC R test intended for th e qualitative detection of nu cleic acid from SARS-CoV-2 in a nasopharyngeal swab specimen collected from individuals suspected of CO VID-19 by their healthcar e provider. This test has been authorized by FDA under an EUA for use by authorized laboratories. This test is only authorized for the duration of the declaration that circumstances exist justifying the authorization of emergency use of in vitro diagnostic tests for detection and/or diagnosis of COVID-19 under Section 564(b)(1) of the Federal Food, Drug and Cosmetic Act, 21 U.S.C. 360bbb-3(b)(1), unless the authorization is terminated or revoked sooner. Fact Sheet for Healthcare Providers: https://www.SpiralFrog m/Documents/Xpert%20Xpress%20SARS%20CoV-2/Fact%20Sheets/3023802%55JNYZ-EYT-1%20 HEALTHCARE%20PROVIDERS%20FACT%20SHEET.pdf Fact Sheet for Healthcare Patients: https://www.eÓtica/Documents/Xpert%20Xp ress%20SARS%20CoV-2/Fact%20Sheets/302-3801%09ZHZO-YLV-1%20PATIENT%20FACT%20SHEET .[id number] 13:18:18 Test Item Value Reference Range Interpretation Comments PARTIAL THROMBOPLASTIN TIME 54.2 seconds 22.5-36.0 H (BEAKER) (test code = 760) BLOOD [id number] 10:34:49 Test Item Value Reference Range Interpretation Comments CULTURE A From Anaerobic Bottle (BEAKER) (test Only Same org anism has code = 1095) been isolated f rom cultures(s) of the same body site within 3 days. Repeat identification and susceptibility testing performed only after consultation wi the clinical microb iology laboratory.Refe r to previous cultur e of - Streptococcus gallolyticus ss p pasteurianus GRAM STAIN From anaerobic RESULT (BEAKER) bottle only: gram (test code = positive cocci in 1123) chains and pairs RAD, ABDOMEN/KUB, 1 VIEW [id number] 10:01:00Reason for exam:- >bloatingShould this be performed at the bedside?->Yes [facility] 1970 Sex: MFINAL REPORT CLINICAL HISTORY: bloating TECHNIQUE: Supine abdomen COMPARISON: 09/10/2021 IMPRESSION: The bowel gas pattern is nonspecific. Free air and air-fluid levels are not definitively seen, but cannot be excluded on the supine view. Signed: Constantine Araiza MDReport Verified Date/Time: 09/07/2022 10:01:09 Reading Location: [address] Reading Room [id number] 02:36:17 Test Item Value Reference Range Interpretation Comments PARTIAL THROMBOPLASTIN TIME 57.0 seconds 22.5-36.0 H (BEAKER) (test code = 760) PROTHROMBIN [id number] 02:34:56 Test Item Value Reference Range Interpretation Comments PROTIME (BEAKER) 19.0 seconds 11.9-14.2 H (test code = 759) INR (BEAKER) (test 1.64 See_Comment [Automat ed message] code = 370) The system g4interactive generated this result transmitted ref erence range: <=5.90. The reference range was not used to int erpret this result as normal/abnormal . RECOMMENDED COUMADIN/WARFARIN INR THERAPY RANGESSTANDARD DOSE: 2.0 - 3.0 Includes: PROPHYLAXIS for venous thrombosis, systemic embolization; TREATMENT for venous thrombosis and/or pulmonary embolus.HIGH RISK: Target INR is 2.5-3.5 for patients with mechanical heart valves.[id number] 02:23:35 Test Item Value Reference Range Interpretation Comments PHOSPHORUS (BEAKER) (test code = 3.2 mg/dL 2.3-4.7 604) Stitcher Hand ID - EMMNITZALACTATE DEHYDROGENASE (LDH)2022-09-07 02:23:35 Test Item Value Reference Range Interpretation Comments LACTATE DEHYDROGENASE (BEAKER) (test 290 U/L 125-220 H code = 635) Stitcher Hand ID - [id number] 02:23:34 Test Item Value Reference Range Interpretation Comments MAGNESIUM (BEAKER) (test code = 2.3 mg/dL 1.6-2.6 627) Stitcher Hand ID - EMMNITZABASIC METABOLIC [id number] 02:23:33 Test Item Value Reference Range Interpretation Comments SODIUM (BEAKER) 132 meq/L 136-145 L (test code = 381) POTASSIUM 4.7 meq/L 3.5-5.1 (BEAKER) (test code = 379) CHLORIDE (BEAKER) 98 meq/L 98-107 (test code = 382) CO2 (BEAKER) 28 meq/L 22-29 (test code = 355) BLOOD UREA 7 mg/dL 7-21 NITROGEN (BEAKER) (test code = 354) CREATININE 0.94 mg/dL 0.57-1.25 (BEAKER) (test code = 358) GLUCOSE RANDOM 101 mg/dL 70-105 (BEAKER) (test code = 652) CALCIUM (BEAKER) 8.8 mg/dL 8.4-10.2 (test code = 697) EGFR (BEAKER) 99 Interpretatio n of eGFR (test code = mL/min/1.73 values Stage De scription 1092) sq m Result G1 Chio l or high >=90 G2 Mildly decreased 60-89 G3a Mildl y to moderately 45-5 9 G3b Moderately to s everely 30-44 G4 Severl y decreased 15-29 G5 Kidne y failure <15Reported eGF R is based on the CKD-EPI 2020 equation that d oes not use a race coefficientEsti mated GFR is not as accur ate as Creatinine Grace elle in predicting glom erular filtration rate . Estimated GFR is not appl icable for dialysis patien ts Stitcher Hand ID - EMMANUELCBC W/PLT COUNT & AUTO [id number] 02:06:12 Test Item Value Reference Range Interpretation Comments WHITE BLOOD CELL COUNT (BEAKER) 5.8 K/ L 3.5-10.5 (test code = 775) RED BLOOD CELL COUNT (BEAKER) 3.73 M/ L 4.63-6.08 L (test code = 761) HEMOGLOBIN (BEAKER) (test code = 11.0 GM/DL 13.7-17.5 L 410) HEMATOCRIT (BEAKER) (test code = 34.2 % 40.1-51.0 L 411) MEAN CORPUSCULAR VOLUME (BEAKER) 92 fL 79-92 (test code = 753) MEAN CORPUSCULAR HEMOGLOBIN 29.5 pg 25.7-32.2 (BEAKER) (test code = 751) MEAN CORPUSCULAR HEMOGLOBIN CONC 32.2 GM/DL 32.3-36.5 L (BEAKER) (test code = 752) RED CELL DISTRIBUTION WIDTH 17.1 % 11.6-14.4 H (BEAKER) (test code = 412) PLATELET COUNT (BEAKER) (test 143 K/CU MM 150-450 L code = 756) MEAN PLATELET VOLUME (BEAKER) 8.7 fL 9.4-12.4 L (test code = 754) NUCLEATED RED BLOOD CELLS 0 /100 WBC 0-0 (BEAKER) (test code = 413) NEUTROPHILS RELATIVE PERCENT 72 % (BEAKER) (test code = 429) LYMPHOCYTES RELATIVE PERCENT 19 % (BEAKER) (test code = 430) MONOCYTES RELATIVE PERCENT 7 % (BEAKER) (test code = 431) EOSINOPHILS RELATIVE PERCENT 1 % (BEAKER) (test code = 432) BASOPHILS RELATIVE PERCENT 0 % (BEAKER) (test code = 437) NEUTROPHILS ABSOLUTE COUNT 4.18 K/ L 1.78-5.38 (BEAKER) (test code = 670) LYMPHOCYTES ABSOLUTE COUNT 1.08 K/ L 1.32-3.57 L (BEAKER) (test code = 414) MONOCYTES ABSOLUTE COUNT (BEAKER) 0.39 K/ L 0.30-0.82 (test code = 415) EOSINOPHILS ABSOLUTE COUNT 0.08 K/ L 0.04-0.54 (BEAKER) (test code = 416) BASOPHILS ABSOLUTE COUNT (BEAKER) 0.01 K/ L 0.01-0.08 (test code = 417) IMMATURE GRANULOCYTES-RELATIVE 0.70 % 0.00-1.00 PERCENT (BEAKER) (test code = 2801) [id number] 18:19:32 Test Item Value Reference Range Interpretation Comments PARTIAL THROMBOPLASTIN TIME 52.9 seconds 22.5-36.0 H (BEAKER) (test code = 760) WOUND CULTURE + GRAM [id number] 08:42:01 Test Item Value Reference Interpretation Comments Range CULTURE (BEAKER) STAPHYLOCOCCUS A 3+ Staphy lococcus (test code = 1095) AUREUS aureus Clindamycin (test S code = 10) Erythromycin (test S code = 4) Linezolid (test code S = 40) Nitrofurantoin (test S code = 23) Oxacillin (test code S = 14) Rifampin (test code = S 43) Tetracycline (test S code = 2) Trimethoprim + S Sulfamethoxazole (test code = 47) Vancomycin (test code S = 13) CULTURE (BEAKER) STAPHYLOCOCCUS A 3+ Staphy lococcus (test code = 1095) AUREUS aureusof a second type Clindamycin (test S code = 10) Erythromycin (test S code = 4) Linezolid (test code S = 40) Nitrofurantoin (test S code = 23) Oxacillin (test code S = 14) Rifampin (test code = S 43) Tetracycline (test S code = 2) Trimethoprim + S Sulfamethoxazole (test code = 47) Vancomycin (test code S = 13) GRAM STAIN RESULT 3+ White blood (BEAKER) (test code = cells seen 1123) GRAM STAIN RESULT 2+ gram positive (BEAKER) (test code = cocci in pairs and [id number]) clusters [id number] 08:25:48 Test Item Value Reference Range Interpretation Comments PARTIAL THROMBOPLASTIN TIME 59.1 seconds 22.5-36.0 H (BEAKER) (test code = 760) LACTATE DEHYDROGENASE (LDH)2022-09-06 05:57:40 Test Item Value Reference Range Interpretation Comments LACTATE DEHYDROGENASE (BEAKER) (test 292 U/L 125-220 H code = 635) Stitcher Hand ID Sal CAGE [id number] 05:57:39 Test Item Value Reference Range Interpretation Comments MAGNESIUM (BEAKER) (test code = 2.0 mg/dL 1.6-2.6 627) Stitcher Hand ID Sal CAGE [id number] 05:57:39 Test Item Value Reference Range Interpretation Comments PHOSPHORUS (BEAKER) (test code = 3.5 mg/dL 2.3-4.7 604) Stitcher Hand ID Sal CAGE WBASIC METABOLIC [id number] 05:57:38 Test Item Value Reference Range Interpretation Comments SODIUM (BEAKER) 134 meq/L 136-145 L (test code = 381) POTASSIUM 4.2 meq/L 3.5-5.1 (BEAKER) (test code = 379) CHLORIDE (BEAKER) 98 meq/L 98-107 (test code = 382) CO2 (BEAKER) 28 meq/L 22-29 (test code = 355) BLOOD UREA 9 mg/dL 7-21 NITROGEN (BEAKER) (test code = 354) CREATININE 0.94 mg/dL 0.57-1.25 (BEAKER) (test code = 358) GLUCOSE RANDOM 109 mg/dL 70-105 H (BEAKER) (test code = 652) CALCIUM (BEAKER) 8.6 mg/dL 8.4-10.2 (test code = 697) EGFR (BEAKER) 99 Interpretatio n of eGFR (test code = mL/min/1.73 values Stage De scription 1092) sq m Result G1 Chio l or high >=90 G2 Mildly decreased 60-89 G3a Mildl y to moderately 45-5 9 G3b Moderately to s everely 30-44 G4 Severl y decreased 15-29 G5 Kidney failure <15Reported eGF R is based on the CKD-EPI 2020 equation that d oes not use a race coefficientEsti mated GFR is not as accur ate as Creatinine Grace elle in predicting glom erular filtration rate . Estimated GFR is not appl icable for dialysis patien ts Stitcher Hand ID - FAUZIA WCBC W/PLT COUNT & AUTO [id number] 05:28:17 Test Item Value Reference Range Interpretation Comments WHITE BLOOD CELL COUNT 6.6 K/ L 3.5-10.5 (BEAKER) (test code = 775) RED BLOOD CELL COUNT 3.80 M/ L 4.63-6.08 L (BEAKER) (test code = 761) HEMOGLOBIN (BEAKER) 11.2 GM/DL 13.7-17.5 L (test code = 410) HEMATOCRIT (BEAKER) 35.4 % 40.1-51.0 L (test code = 411) MEAN CORPUSCULAR 93 fL 79-92 H DISCORDANT MCV VOLUME (BEAKER) (test RESULT COMPARED TO code = 753) PREVIOUS RESULT ; CLINICAL CORREL ATION REQUIRED. MEAN CORPUSCULAR 29.5 pg 25.7-32.2 HEMOGLOBIN (BEAKER) (test code = 751) MEAN CORPUSCULAR 31.6 GM/DL 32.3-36.5 L HEMOGLOBIN CONC (BEAKER) (test code = 752) RED CELL DISTRIBUTION 17.0 % 11.6-14.4 H WIDTH (BEAKER) (test code = 412) PLATELET COUNT 150 K/CU MM 150-450 (BEAKER) (test code = 756) MEAN PLATELET VOLUME 8.7 fL 9.4-12.4 L (BEAKER) (test code = 754) NUCLEATED RED BLOOD 0 /100 WBC 0-0 CELLS (BEAKER) (test code = 413) NEUTROPHILS RELATIVE 74 % PERCENT (BEAKER) (test code = 429) LYMPHOCYTES RELATIVE 17 % PERCENT (BEAKER) (test code = 430) MONOCYTES RELATIVE 7 % PERCENT (BEAKER) (test code = 431) EOSINOPHILS RELATIVE 1 % PERCENT (BEAKER) (test code = 432) BASOPHILS RELATIVE 0 % PERCENT (BEAKER) (test code = 437) NEUTROPHILS ABSOLUTE 4.90 K/ L 1.78-5.38 COUNT (BEAKER) (test code = 670) LYMPHOCYTES ABSOLUTE 1.15 K/ L 1.32-3.57 L COUNT (BEAKER) (test code = 414) MONOCYTES ABSOLUTE 0.45 K/ L 0.30-0.82 COUNT (BEAKER) (test code = 415) EOSINOPHILS ABSOLUTE 0.09 K/ L 0.04-0.54 COUNT (BEAKER) (test code = 416) BASOPHILS ABSOLUTE 0.01 K/ L 0.01-0.08 COUNT (BEAKER) (test code = 417) IMMATURE 0.60 % 0.00-1.00 GRANULOCYTES-RELATIVE PERCENT (BEAKER) (test code = 2801) PROTHROMBIN [id number] 05:26:44 Test Item Value Reference Range Interpretation Comments PROTIME (BEAKER) 21.5 seconds 11.9-14.2 H (test code = 759) INR (BEAKER) (test 1.93 See_Comment [Automat ed message] code = 370) The system g4interactive generated this result transmitted ref erence range: <=5.90. The reference range was not used to int erpret this result as normal/abnormal . RECOMMENDED COUMADIN/WARFARIN INR THERAPY RANGESSTANDARD DOSE: 2.0 - 3.0 Includes: PROPHYLAXIS for venous thrombosis, systemic embolization; TREATMENT for venous thrombosis and/or pulmonary embolus.HIGH RISK: Target INR is 2.5-3.5 for patients with mechanical heart valves.LIPID [id number] 16:08:20 Test Item Value Reference Range Interpretation Comments TRIGLYCERIDES (BEAKER) (test code = 119 mg/dL 540) CHOLESTEROL (BEAKER) (test code = 111 mg/dL 631) HDL CHOLESTEROL (BEAKER) (test code 25 mg/dL = 976) LDL CHOLESTEROL CALCULATED (BEAKER) 62 mg/dL (test code = 633) Triglyceride Reference Range: Low Risk <150 Borderline 150-199 High Risk 200- 499 Very High Risk >=500Cholesterol Reference Range: Low Risk <200 Borderline 200-239 High Risk >240HDL Cholesterol Reference Range: Low Risk >=60 High Risk <40LDL Cholesterol Reference Range: Optimal <100 Near Optimal 100-129 Borderline 130-159 High 160-189 Very High >=190 Stitcher Hand ID - estrada [id number] 06:36:40 Test Item Value Reference Range Interpretation Comments PHOSPHORUS (BEAKER) (test code = 3.7 mg/dL 2.3-4.7 604) Stitcher Hand ID - FAUZIA WLACTATE DEHYDROGENASE (LDH)2022-09-05 06:36:40 Test Item Value Reference Range Interpretation Comments LACTATE DEHYDROGENASE (BEAKER) (test 235 U/L 125-220 H code = 635) Stitcher Hand ID - FAUZIA WBASIC METABOLIC [id number] 06:36:39 Test Item Value Reference Range Interpretation Comments SODIUM (BEAKER) 133 meq/L 136-145 L (test code = 381) POTASSIUM 4.3 meq/L 3.5-5.1 (BEAKER) (test code = 379) CHLORIDE (BEAKER) 99 meq/L 98-107 (test code = 382) CO2 (BEAKER) 28 meq/L 22-29 (test code = 355) BLOOD UREA 12 mg/dL 7-21 NITROGEN (BEAKER) (test code = 354) CREATININE 0.92 mg/dL 0.57-1.25 (BEAKER) (test code = 358) GLUCOSE RANDOM 134 mg/dL 70-105 H (BEAKER) (test code = 652) CALCIUM (BEAKER) 8.7 mg/dL 8.4-10.2 (test code = 697) EGFR (BEAKER) 102 Interpretatio n of eGFR (test code = mL/min/1.73 values Stage De scription 1092) sq m Result G1 Norm al or high >=90 G2 Mildly decreased 60-89 G3a Mildl y to moderately 45-5 9 G3b Moderately to s everely 30-44 G4 Severl y decreased 15-29 G5 Kidney failure <15Reported eGF R is based on the CKD-EPI 2020 equation that d oes not use a race coefficientEsti mated GFR is not as accur ate as Creatinine Garce elle in predicting glom erular filtration rate . Estimated GFR is not appl icable for dialysis patien ts Stitcher Hand ID - FAUZIA [id number] 06:36:39 Test Item Value Reference Range Interpretation Comments MAGNESIUM (BEAKER) (test code = 2.1 mg/dL 1.6-2.6 627) Stitcher Hand JESSICA CAGE WPROTHROMBIN TIME/[id number] 06:19:50 Test Item Value Reference Range Interpretation Comments PROTIME (BEAKER) 25.8 seconds 11.9-14.2 H (test code = 759) INR (BEAKER) (test 2.43 See_Comment [Automat ed message] code = 370) The system g4interactive generated this result transmitted ref erence range: <=5.90. The reference range was not used to int erpret this result as normal/abnormal . RECOMMENDED COUMADIN/WARFARIN INR THERAPY RANGESSTANDARD DOSE: 2.0 - 3.0 Includes: PROPHYLAXIS for venous thrombosis, systemic embolization; TREATMENT for venous thrombosis and/or pulmonary embolus.HIGH RISK: Target INR is 2.5-3.5 for patients with mechanical heart valves.CBC W/PLT COUNT & AUTO [id number] 06:09:08 Test Item Value Reference Range Interpretation Comments WHITE BLOOD CELL COUNT (BEAKER) 5.9 K/ L 3.5-10.5 (test code = 775) RED BLOOD CELL COUNT (BEAKER) 3.78 M/ L 4.63-6.08 L (test code = 761) HEMOGLOBIN (BEAKER) (test code = 11.1 GM/DL 13.7-17.5 L 410) HEMATOCRIT (BEAKER) (test code = 33.8 % 40.1-51.0 L 411) MEAN CORPUSCULAR VOLUME (BEAKER) 89 fL 79-92 (test code = 753) MEAN CORPUSCULAR HEMOGLOBIN 29.4 pg 25.7-32.2 (BEAKER) (test code = 751) MEAN CORPUSCULAR HEMOGLOBIN CONC 32.8 GM/DL 32.3-36.5 (BEAKER) (test code = 752) RED CELL DISTRIBUTION WIDTH 16.7 % 11.6-14.4 H (BEAKER) (test code = 412) PLATELET COUNT (BEAKER) (test 133 K/CU MM 150-450 L code = 756) MEAN PLATELET VOLUME (BEAKER) 8.7 fL 9.4-12.4 L (test code = 754) NUCLEATED RED BLOOD CELLS 0 /100 WBC 0-0 (BEAKER) (test code = 413) NEUTROPHILS RELATIVE PERCENT 73 % (BEAKER) (test code = 429) LYMPHOCYTES RELATIVE PERCENT 17 % (BEAKER) (test code = 430) MONOCYTES RELATIVE PERCENT 7 % (BEAKER) (test code = 431) EOSINOPHILS RELATIVE PERCENT 1 % (BEAKER) (test code = 432) BASOPHILS RELATIVE PERCENT 0 % (BEAKER) (test code = 437) NEUTROPHILS ABSOLUTE COUNT 4.35 K/ L 1.78-5.38 (BEAKER) (test code = 670) LYMPHOCYTES ABSOLUTE COUNT 1.01 K/ L 1.32-3.57 L (BEAKER) (test code = 414) MONOCYTES ABSOLUTE COUNT (BEAKER) 0.42 K/ L 0.30-0.82 (test code = 415) EOSINOPHILS ABSOLUTE COUNT 0.08 K/ L 0.04-0.54 (BEAKER) (test code = 416) BASOPHILS ABSOLUTE COUNT (BEAKER) 0.01 K/ L 0.01-0.08 (test code = 417) IMMATURE GRANULOCYTES-RELATIVE 1.00 % 0.00-1.00 PERCENT (BEAKER) (test code = 2801) LACTATE DEHYDROGENASE (LDH)2022-09-04 14:51:30 Test Item Value Reference Range Interpretation Comments LACTATE DEHYDROGENASE 373 U/L 125-220 H Specim en slightly (BEAKER) (test code = hemoly zed 635) Stitcher Hand ID - MARCOTransesophageal [id number] 14:34:14Ejection FractionSLEH ECHO HEARTLAB [facility]CKESS[facility] [id number] 07:58:50 Test Item Value Reference Range Interpretation Comments CULTURE A From Aerobic An d (BEAKER) (test Anaerobic Bot tles Same code = 1095) organism has be en isolated from cultures(s) of the same body site within 3 days. Repeat identification and susceptibility testing performed only after consultation wi the clinical microb iology laboratory.Refe r to previous cultur e of - Streptococcus gallolyticus ss p pasteurianus GRAM STAIN From aerobic and RESULT (BEAKER) anaerobic (test code = bottles: gram 1123) positive cocci in chains and pairs The specimen volume collected for this blood culture was below the optimum (10 mL per bottle or 20 mL total). Use of lower volumes may adversely affect recovery and/or detection times of some organisms.[id number] 06:21:12 Test Item Value Reference Range Interpretation Comments MAGNESIUM (BEAKER) (test code = 2.2 mg/dL 1.6-2.6 627) Stitcher Hand ID - SO [id number] 06:21:12 Test Item Value Reference Range Interpretation Comments PHOSPHORUS (BEAKER) (test code = 4.0 mg/dL 2.3-4.7 604) Stitcher Hand ID - SO MBASIC METABOLIC [id number] 06:21:11 Test Item Value Reference Range Interpretation Comments SODIUM (BEAKER) 136 meq/L 136-145 (test code = 381) POTASSIUM 5.2 meq/L 3.5-5.1 H (BEAKER) (test code = 379) CHLORIDE (BEAKER) 100 meq/L 98-107 (test code = 382) CO2 (BEAKER) 27 meq/L 22-29 (test code = 355) BLOOD UREA 12 mg/dL 7-21 NITROGEN (BEAKER) (test code = 354) CREATININE 1.06 mg/dL 0.57-1.25 (BEAKER) (test code = 358) GLUCOSE RANDOM 105 mg/dL 70-105 (BEAKER) (test code = 652) CALCIUM (BEAKER) 9.6 mg/dL 8.4-10.2 (test code = 697) EGFR (BEAKER) 86 Interpretatio n of eGFR (test code = mL/min/1.73 values Stage De scription 1092) sq m Result G1 Chio l or high >=90 G2 Mildly decreased 60-89 G3a Mildl y to moderately 45-5 9 G3b Moderately to s everely 30-44 G4 Severl y decreased 15-29 G5 Kidney failure <15Reported eGF R is based on the CKD-EPI 2020 equation that d oes not use a race coefficientEsti mated GFR is not as accur ate as Creatinine Grace almeida in predicting glom erular filtration rate . Estimated GFR is not appl icable for dialysis patien ts Stitcher Hand ID - SO MPROTHROMBIN TIME/[id number] 05:47:56 Test Item Value Reference Range Interpretation Comments PROTIME (BEAKER) 27.1 seconds 11.9-14.2 H (test code = 759) INR (BEAKER) (test 2.70 See_Comment [Automat ed message] code = 370) The system g4interactive generated this result transmitted ref erence range: <=5.90. The reference range was not used to int erpret this result as normal/abnormal . RECOMMENDED COUMADIN/WARFARIN INR THERAPY RANGESSTANDARD DOSE: 2.0 - 3.0 Includes: PROPHYLAXIS for venous thrombosis, systemic embolization; TREATMENT for venous thrombosis and/or pulmonary embolus.HIGH RISK: Target INR is 2.5-3.5 for patients with mechanical heart valves.CBC W/PLT COUNT & AUTO [id number] 05:45:55 Test Item Value Reference Range Interpretation Comments WHITE BLOOD CELL COUNT (BEAKER) 6.2 K/ L 3.5-10.5 (test code = 775) RED BLOOD CELL COUNT (BEAKER) 4.39 M/ L 4.63-6.08 L (test code = 761) HEMOGLOBIN (BEAKER) (test code = 12.9 GM/DL 13.7-17.5 L 410) HEMATOCRIT (BEAKER) (test code = 39.6 % 40.1-51.0 L 411) MEAN CORPUSCULAR VOLUME (BEAKER) 90 fL 79-92 (test code = 753) MEAN CORPUSCULAR HEMOGLOBIN 29.4 pg 25.7-32.2 (BEAKER) (test code = 751) MEAN CORPUSCULAR HEMOGLOBIN CONC 32.6 GM/DL 32.3-36.5 (BEAKER) (test code = 752) RED CELL DISTRIBUTION WIDTH 16.7 % 11.6-14.4 H (BEAKER) (test code = 412) PLATELET COUNT (BEAKER) (test 151 K/CU MM 150-450 code = 756) MEAN PLATELET VOLUME (BEAKER) 9.0 fL 9.4-12.4 L (test code = 754) NUCLEATED RED BLOOD CELLS 0 /100 WBC 0-0 (BEAKER) (test code = 413) NEUTROPHILS RELATIVE PERCENT 74 % (BEAKER) (test code = 429) LYMPHOCYTES RELATIVE PERCENT 18 % (BEAKER) (test code = 430) MONOCYTES RELATIVE PERCENT 5 % (BEAKER) (test code = 431) EOSINOPHILS RELATIVE PERCENT 1 % (BEAKER) (test code = 432) BASOPHILS RELATIVE PERCENT 0 % (BEAKER) (test code = 437) NEUTROPHILS ABSOLUTE COUNT 4.61 K/ L 1.78-5.38 (BEAKER) (test code = 670) LYMPHOCYTES ABSOLUTE COUNT 1.12 K/ L 1.32-3.57 L (BEAKER) (test code = 414) MONOCYTES ABSOLUTE COUNT (BEAKER) 0.32 K/ L 0.30-0.82 (test code = 415) EOSINOPHILS ABSOLUTE COUNT 0.09 K/ L 0.04-0.54 (BEAKER) (test code = 416) BASOPHILS ABSOLUTE COUNT (BEAKER) 0.01 K/ L 0.01-0.08 (test code = 417) IMMATURE GRANULOCYTES-RELATIVE 1.00 % 0.00-1.00 PERCENT (BEAKER) (test code = 2801) CT, [id number] 17:30:00Unlisted Reason for Exam - Click Yes and Enter Reason Below->YesUnlisted Reason for Exam->evalLVAD infection, strep bacteremiaIs this for enterography?->NoWill this procedure require oral cont rast?->No[facility]ame[facility] : 1970 Sex: MFINAL REPORT ABDOMINAL AND PELVIS CT DATED 09/03/2022 COMPARISON: February 26, 2022 CLINICAL INFORMATION: Sepsiseval LVAD infection, strep bacteremia TECHNIQUE: Axial images of the abdomen and pelvis were obtained from diaphragm to the pubic symphysis without GI or intravenous contrast. Thisexam was performed according to our departmental dose-optimization program, which includes automatedexposure control, adjustment of the mA and/or kV according to patient size and/or use of interactivereconstruction technique. COMMENT: Heart is enlarged. LVAD is present. Liver is normal in size without focal abnormality. Liver is suboptimally evaluated without intravenous contrast. Spleen is enlarged measuring proximally 14.4 x 6 x 13.9 cm. Gallbladder is distended. No gallstone or biliary dilatation is noted. Pancreas and adrenals are unremarkable. Both kidneys are normal in size. No hydronephrosis, hydroureter, urolithiasis is seen. The small and large bowel are unremarkable. Appendix is not visualized. Prostate is normal in size. The urinary bladder is contracted. No mass, adenopathy or ascites is present. IMPRESSION: 1. Cardiomegaly.2. Splenomegaly.3. No abscess in the abdomen or pelvis. Signed: Herb Bonilla MDReport Verified Date/Time: 09/03/2022 17:30:15 Reading Location: [address] Body Reading Room CT, SPINE, LUMBAR, WO [id number] 14:42:00Unlisted Reason for Exam - Click Yes and Enter Reason Below->No [facility] : 1970 Sex: MFINAL REPORT CT, SPINE, LUMBAR, WO CONTRAST CLINICAL HISTORY: Low back pain, symptoms persist with > 6wks conservative treatment COMPARISON: CT abdomen pelvis 02/26/2022 TECHNIQUE: Multiple axial CT images of the lumbar spine were obtained without contrast. Sagittal and coronal 2D reconstructions were created. This exam was performed according to our departmental dose-optimization program, which includes automated exposure control, adjustment of the mA and/or kV according to patient size and/or use of the iterative reconstruction technique. FINDINGS:No acute osseous fracture or traumatic malalignment. No suspicious osseous lesion.No paraspinal mass.. Atherosclerotic calcifications. Disc levels:L1-2: No significant disc bulge, central spinal canal or neural foraminal stenosis.L2-3: Small disc bulge, patent neural foramina and central spinal canal stenosis.L3-4: Small disc bulge,mild central spinal canal stenosis. Patent neural foramina.L4-5: Disc height loss with vacuum phenomena, small disc bulge, mild facet arthropathy, mild central spinal canal stenosis and mild bilateral neural foraminal stenosis.L5-S1: Disc height loss with vacuum phenomena, small disc bulge, mild to moderate bilateral facet arthropathy. Mild central spinal canal stenosis and moderate bilateral neural foraminal stenosis. IMPRESSION: CT lumbar spine without evidence of acute osseous abnormality. 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 Signed: Ky Woodward MDReport Verified Date/Time: 09/03/2022 14:42:59 [id number] 05:29:48 Test Item Value Reference Range Interpretation Comments MAGNESIUM (BEAKER) (test code = 1.9 mg/dL 1.6-2.6 627) Stitcher Hand ID - SO [id number] 05:29:48 Test Item Value Reference Range Interpretation Comments PHOSPHORUS (BEAKER) (test code = 3.4 mg/dL 2.3-4.7 604) Stitcher Hand ID - SO MBASIC METABOLIC [id number] 05:29:47 Test Item Value Reference Range Interpretation Comments SODIUM (BEAKER) 133 meq/L 136-145 L (test code = 381) POTASSIUM 4.9 meq/L 3.5-5.1 (BEAKER) (test code = 379) CHLORIDE (BEAKER) 100 meq/L 98-107 (test code = 382) CO2 (BEAKER) 27 meq/L 22-29 (test code = 355) BLOOD UREA 14 mg/dL 7-21 NITROGEN (BEAKER) (test code = 354) CREATININE 0.93 mg/dL 0.57-1.25 (BEAKER) (test code = 358) GLUCOSE RANDOM 93 mg/dL 70-105 (BEAKER) (test code = 652) CALCIUM (BEAKER) 9.2 mg/dL 8.4-10.2 (test code = 697) EGFR (BEAKER) 101 Interpretatio n of eGFR (test code = mL/min/1.73 values Stage De scription 1092) sq m Result G1 Chio l or high >=90 G2 Mildly decreased 60-89 G3a Mildl y to moderately 45-5 9 G3b Moderately to s everely 30-44 G4 Sever ly decreased 15-29 G5 Kidney failure <15Repo rted eGFR is based on the CKD-EPI 2020 equation t hat does not use a race coefficientEsti mated GFR is not as accur ate as Creatinine Grace elle in predicting glom erular filtration rate . Estimated GFR is not appl icable for dialysis patien ts Stitcher Hand ID - SO MPROTHROMBIN TIME/[id number] 05:27:22 Test Item Value Reference Range Interpretation Comments PROTIME (BEAKER) 30.3 seconds 11.9-14.2 H (test code = 759) INR (BEAKER) (test 3.00 See_Comment [Automat ed message] code = 370) The system g4interactive generated this result transmitted ref erence range: <=5.90. The reference range was not used to int erpret this result as normal/abnormal . RECOMMENDED COUMADIN/WARFARIN INR THERAPY RANGESSTANDARD DOSE: 2.0 - 3.0 Includes: PROPHYLAXIS for venous thrombosis, systemic embolization; TREATMENT for venous thrombosis and/or pulmonary embolus.HIGH RISK: Target INR is 2.5-3.5 for patients with mechanical heart valves.CBC W/PLT COUNT & AUTO [id number] 05:02:35 Test Item Value Reference Range Interpretation Comments WHITE BLOOD CELL COUNT (BEAKER) 5.5 K/ L 3.5-10.5 (test code = 775) RED BLOOD CELL COUNT (BEAKER) 4.23 M/ L 4.63-6.08 L (test code = 761) HEMOGLOBIN (BEAKER) (test code = 12.3 GM/DL 13.7-17.5 L 410) HEMATOCRIT (BEAKER) (test code = 38.4 % 40.1-51.0 L 411) MEAN CORPUSCULAR VOLUME (BEAKER) 91 fL 79-92 (test code = 753) MEAN CORPUSCULAR HEMOGLOBIN 29.1 pg 25.7-32.2 (BEAKER) (test code = 751) MEAN CORPUSCULAR HEMOGLOBIN CONC 32.0 GM/DL 32.3-36.5 L (BEAKER) (test code = 752) RED CELL DISTRIBUTION WIDTH 16.7 % 11.6-14.4 H (BEAKER) (test code = 412) PLATELET COUNT (BEAKER) (test 142 K/CU MM 150-450 L code = 756) MEAN PLATELET VOLUME (BEAKER) 9.2 fL 9.4-12.4 L (test code = 754) NUCLEATED RED BLOOD CELLS 0 /100 WBC 0-0 (BEAKER) (test code = 413) NEUTROPHILS RELATIVE PERCENT 70 % (BEAKER) (test code = 429) LYMPHOCYTES RELATIVE PERCENT 20 % (BEAKER) (test code = 430) MONOCYTES RELATIVE PERCENT 7 % (BEAKER) (test code = 431) EOSINOPHILS RELATIVE PERCENT 2 % (BEAKER) (test code = 432) BASOPHILS RELATIVE PERCENT 0 % (BEAKER) (test code = 437) NEUTROPHILS ABSOLUTE COUNT 3.84 K/ L 1.78-5.38 (BEAKER) (test code = 670) LYMPHOCYTES ABSOLUTE COUNT 1.10 K/ L 1.32-3.57 L (BEAKER) (test code = 414) MONOCYTES ABSOLUTE COUNT (BEAKER) 0.39 K/ L 0.30-0.82 (test code = 415) EOSINOPHILS ABSOLUTE COUNT 0.11 K/ L 0.04-0.54 (BEAKER) (test code = 416) BASOPHILS ABSOLUTE COUNT (BEAKER) 0.00 K/ L 0.01-0.08 L (test code = 417) IMMATURE GRANULOCYTES-RELATIVE 0.90 % 0.00-1.00 PERCENT (BEAKER) (test code = 2801) 2D Echo W/Doppler(CW/PW/Color)2022-09-02 10:19:16Ejection FractionSLEH ECHO [facility] [id number] 09:10:20 Test Item Value Reference Range Interpretation Comments HEMOGLOBIN A1C 5.6 % See_Comment [Automated m essage] ELECTROPHORESIS (BEAKER) The system which (test code = 8134) generated this result transmitted ref erence range: <=5.6%. The reference range was not used to int erpret this result as normal/abnormal . "The A1c is measured using a NGSP-certified method. HbA1c value equal to or greater than 6.5% as thediagnosis cutoff for diabetes. An HbA1c value of 5.7- 6.4% indicates increased risk for diabetes (prediabetes)."Stitcher Hand ID - ADMBLOOD [id number] 08:56:49 Test Item Value Reference Range Interpretation Comments CULTURE A From Aerobic An d (BEAKER) (test Anaerobic Bot tles Same code = 1095) organism has be en isolated from cultures(s) of the same body site and collection date . Repeat identifi cation and susceptibil ity testing perform ed only after consultat ion with the [facility] microbiology laboratory.Refe r to previous cultur e of - Streptococcus gallolyticus ss p pasteurianus GRAM STAIN From aerobic and RESULT (BEAKER) anaerobic (test code = bottles: gram 1123) positive cocci in chains and pairs The specimen volume collected for this blood culture was below the optimum (10 mL per bottle or 20 mL total). Use of lower volumes may adversely affect recovery and/or detection times of some organisms.BLOOD [id number] 08:55:58 Test Item Value Reference Interpretation Comments Range CULTURE (BEAKER) STREPTOCOCCUS A From Aerob ic And (test code = GALLOLYTICUS SSP Anaerobic B ottles 1095) PASTEURIANUS Streptococcus gallolyticus ss p pasteurianus Ceftriaxone (test See_Comment S [Automate d message] code = 52) The system g4interactive generated this result transmit neela reference range : Susceptible 0-1 , Resistant <0 or >1 . The reference r daán was not used to interpret this result as normal/abnormal . Penicillin G See_Comment S [Automated mes jarred] (test code = 3) The system Vend generated this result transmit neela reference range : Susceptible 0-0 .12 , Intermediate <0 or >.12 , Resistan t >2 . The reference range was not u sed to interpret th is result as normal/abnormal . Vancomycin (test See_Comment S [Automated message] code = 13) The system g4interactive generated this result transmit neela reference range : Susceptible 0-1 , No Interpretations Established <0 or >1 . The reference range was not u sed to interpret th is result as normal/abnormal . GRAM STAIN RESULT From aerobic and (BEAKER) (test anaerobic bottles: code = 1123) gram positive cocci in chains and pairs [id number] 23:19:35 Test Item Value Reference Range Interpretation Comments MAGNESIUM (BEAKER) (test code = 2.2 mg/dL 1.6-2.6 627) Stitcher Hand ID - [id number] 23:19:35 Test Item Value Reference Range Interpretation Comments PHOSPHORUS (BEAKER) (test code = 4.3 mg/dL 2.3-4.7 604) Stitcher Hand ID - ADMINBASIC METABOLIC [id number] 23:19:34 Test Item Value Reference Range Interpretation Comments SODIUM (BEAKER) 129 meq/L 136-145 L (test code = 381) POTASSIUM 4.5 meq/L 3.5-5.1 (BEAKER) (test code = 379) CHLORIDE (BEAKER) 97 meq/L 98-107 L (test code = 382) CO2 (BEAKER) 23 meq/L 22-29 (test code = 355) BLOOD UREA 23 mg/dL 7-21 H NITROGEN (BEAKER) (test code = 354) CREATININE 1.24 mg/dL 0.57-1.25 (BEAKER) (test code = 358) GLUCOSE RANDOM 100 mg/dL 70-105 (BEAKER) (test code = 652) CALCIUM (BEAKER) 8.6 mg/dL 8.4-10.2 (test code = 697) EGFR (BEAKER) 71 Interpretatio n of eGFR (test code = mL/min/1.73 values Stage De scription 1092) sq m Result G1 Norm al or high >=90 G2 Mildly decreased 60-89 G3a Mildl y to moderately 45-5 9 G3b Moderately to s everely 30-44 G4 Severl y decreased 15-29 G5 Kidney failure <15Reported eGF R is based on the CKD-EPI 2021 equation that d oes not use a race coefficientEsti mated GFR is not as accur ate as Creatinine Grace almeida in predicting glom erular filtration rate . Estimated GFR is not appl icable for dialysis patien ts Stitcher Hand ID - ADMINPROTHROMBIN [id number] 23:04:52 Test Item Value Reference Range Interpretation Comments PROTIME (BEAKER) 33.6 seconds 11.9-14.2 H (test code = 759) INR (BEAKER) (test 3.44 See_Comment [Automat ed message] code = 370) The system g4interactive generated this result transmitted ref erence range: <=5.90. The reference range was not used to int erpret this result as normal/abnormal . RECOMMENDED COUMADIN/WARFARIN INR THERAPY RANGESSTANDARD DOSE: 2.0 - 3.0 Includes: PROPHYLAXIS for venous thrombosis, systemic embolization; TREATMENT for venous thrombosis and/or pulmonary embolus.HIGH RISK: Target INR is 2.5-3.5 for patients with mechanical heart valves.CBC W/PLT COUNT & AUTO [id number] 23:01:31 Test Item Value Reference Range Interpretation Comments WHITE BLOOD CELL COUNT (BEAKER) 5.6 K/ L 3.5-10.5 (test code = 775) RED BLOOD CELL COUNT (BEAKER) 3.78 M/ L 4.63-6.08 L (test code = 761) HEMOGLOBIN (BEAKER) (test code = 11.1 GM/DL 13.7-17.5 L 410) HEMATOCRIT (BEAKER) (test code = 34.3 % 40.1-51.0 L 411) MEAN CORPUSCULAR VOLUME (BEAKER) 91 fL 79-92 (test code = 753) MEAN CORPUSCULAR HEMOGLOBIN 29.4 pg 25.7-32.2 (BEAKER) (test code = 751) MEAN CORPUSCULAR HEMOGLOBIN CONC 32.4 GM/DL 32.3-36.5 (BEAKER) (test code = 752) RED CELL DISTRIBUTION WIDTH 16.9 % 11.6-14.4 H (BEAKER) (test code = 412) PLATELET COUNT (BEAKER) (test 112 K/CU MM 150-450 L code = 756) MEAN PLATELET VOLUME (BEAKER) 9.1 fL 9.4-12.4 L (test code = 754) NUCLEATED RED BLOOD CELLS 0 /100 WBC 0-0 (BEAKER) (test code = 413) NEUTROPHILS RELATIVE PERCENT 68 % (BEAKER) (test code = 429) LYMPHOCYTES RELATIVE PERCENT 18 % (BEAKER) (test code = 430) MONOCYTES RELATIVE PERCENT 12 % (BEAKER) (test code = 431) EOSINOPHILS RELATIVE PERCENT 2 % (BEAKER) (test code = 432) BASOPHILS RELATIVE PERCENT 0 % (BEAKER) (test code = 437) NEUTROPHILS ABSOLUTE COUNT 3.80 K/ L 1.78-5.38 (BEAKER) (test code = 670) LYMPHOCYTES ABSOLUTE COUNT 1.00 K/ L 1.32-3.57 L (BEAKER) (test code = 414) MONOCYTES ABSOLUTE COUNT (BEAKER) 0.65 K/ L 0.30-0.82 (test code = 415) EOSINOPHILS ABSOLUTE COUNT 0.10 K/ L 0.04-0.54 (BEAKER) (test code = 416) BASOPHILS ABSOLUTE COUNT (BEAKER) 0.01 K/ L 0.01-0.08 (test code = 417) IMMATURE GRANULOCYTES-RELATIVE 0.70 % 0.00-1.00 PERCENT (BEAKER) (test code = 2801) POC-Glucose [id number] 08:06:23 Test Item Value Reference Range Interpretation Comments POC-Glucose Meter (test 136 mg/dL 70-110 H : TE STED AT [facility] code = 1538) [address] [facility], [address]: Stitcher Hand/Techni ebenezer ID = [id number] for TATI HARRY A Lab Interpretation (test Abnormal code = 33292-6) [facility] [id number] 08:06:23 Test Item Value Reference Range Interpretation Comments POC-GLUCOSE METER 136 mg/dL 70-110 H : TESTED A T [facility] [address] (BEAKER) (test code = MELVINA Olosn [facility], 1538) [address]: Stitcher Hand/Techni ebenezer ID = [id number] for BHARGAVI CARRILLO [id number] 06:27:48 Test Item Value Reference Range Interpretation Comments PHOSPHORUS (BEAKER) (test code = 3.6 mg/dL 2.3-4.7 604) Stitcher Hand ID - FAUZIA WBASIC METABOLIC [id number] 06:27:47 Test Item Value Reference Range Interpretation Comments SODIUM (BEAKER) 131 meq/L 136-145 L (test code = 381) POTASSIUM 3.9 meq/L 3.5-5.1 (BEAKER) (test code = 379) CHLORIDE (BEAKER) 98 meq/L 98-107 (test code = 382) CO2 (BEAKER) 26 meq/L 22-29 (test code = 355) BLOOD UREA 15 mg/dL 7-21 NITROGEN (BEAKER) (test code = 354) CREATININE 1.35 mg/dL 0.57-1.25 H (BEAKER) (test code = 358) GLUCOSE RANDOM 110 mg/dL 70-105 H (BEAKER) (test code = 652) CALCIUM (BEAKER) 8.6 mg/dL 8.4-10.2 (test code = 697) EGFR (BEAKER) 64 Interpretatio n of eGFR (test code = mL/min/1.73 values Stage De scription 1092) sq m Result G1 Chio l or high >=90 G2 Mildly decreased 60-89 G3a Mildl y to moderately 45-5 9 G3b Moderately to s everely 30-44 G4 Severl y decreased 15-29 G5 Kidney failure <15Reported eGF R is based on the CKD-EPI 2020 equation that d oes not use a race coefficientEsti mated GFR is not as accur ate as Creatinine Grace elle in predicting glom erular filtration rate . Estimated GFR is not appl icable for dialysis patien ts Stitcher Hand ID - FAUZIA [id number] 06:27:47 Test Item Value Reference Range Interpretation Comments MAGNESIUM (BEAKER) (test code = 2.0 mg/dL 1.6-2.6 627) Stitcher Hand ID Sal CAGE WPROTHROMBIN [id number] 05:31:39 Test Item Value Reference Range Interpretation Comments PROTIME (BEAKER) 32.7 seconds 11.9-14.2 H (test code = 759) INR (BEAKER) (test 3.31 See_Comment [Automat ed message] code = 370) The system g4interactive generated this result transmitted ref erence range: <=5.90. The reference range was not used to int erpret this result as normal/abnormal . RECOMMENDED COUMADIN/WARFARIN INR THERAPY RANGESSTANDARD DOSE: 2.0 - 3.0 Includes: PROPHYLAXIS for venous thrombosis, systemic embolization; TREATMENT for venous thrombosis and/or pulmonary embolus.HIGH RISK: Target INR is 2.5-3.5 for patients with mechanical heart valves.CBC W/PLT COUNT & AUTO [id number] 05:31:17 Test Item Value Reference Range Interpretation Comments WHITE BLOOD CELL COUNT (BEAKER) 7.5 K/ L 3.5-10.5 (test code = 775) RED BLOOD CELL COUNT (BEAKER) 4.15 M/ L 4.63-6.08 L (test code = 761) HEMOGLOBIN (BEAKER) (test code = 12.1 GM/DL 13.7-17.5 L 410) HEMATOCRIT (BEAKER) (test code = 36.8 % 40.1-51.0 L 411) MEAN CORPUSCULAR VOLUME (BEAKER) 89 fL 79-92 (test code = 753) MEAN CORPUSCULAR HEMOGLOBIN 29.2 pg 25.7-32.2 (BEAKER) (test code = 751) MEAN CORPUSCULAR HEMOGLOBIN CONC 32.9 GM/DL 32.3-36.5 (BEAKER) (test code = 752) RED CELL DISTRIBUTION WIDTH 16.9 % 11.6-14.4 H (BEAKER) (test code = 412) PLATELET COUNT (BEAKER) (test 129 K/CU MM 150-450 L code = 756) MEAN PLATELET VOLUME (BEAKER) 9.0 fL 9.4-12.4 L (test code = 754) NUCLEATED RED BLOOD CELLS 0 /100 WBC 0-0 (BEAKER) (test code = 413) NEUTROPHILS RELATIVE PERCENT 84 % (BEAKER) (test code = 429) LYMPHOCYTES RELATIVE PERCENT 10 % (BEAKER) (test code = 430) MONOCYTES RELATIVE PERCENT 5 % (BEAKER) (test code = 431) EOSINOPHILS RELATIVE PERCENT 1 % (BEAKER) (test code = 432) BASOPHILS RELATIVE PERCENT 0 % (BEAKER) (test code = 437) NEUTROPHILS ABSOLUTE COUNT 6.25 K/ L 1.78-5.38 H (BEAKER) (test code = 670) LYMPHOCYTES ABSOLUTE COUNT 0.76 K/ L 1.32-3.57 L (BEAKER) (test code = 414) MONOCYTES ABSOLUTE COUNT (BEAKER) 0.38 K/ L 0.30-0.82 (test code = 415) EOSINOPHILS ABSOLUTE COUNT 0.04 K/ L 0.04-0.54 (BEAKER) (test code = 416) BASOPHILS ABSOLUTE COUNT (BEAKER) 0.01 K/ L 0.01-0.08 (test code = 417) IMMATURE GRANULOCYTES-RELATIVE 0.70 % 0.00-1.00 PERCENT (BEAKER) (test code = 7072) POCT-GLUCOSE [id number] 18:16:26 Test Item Value Reference Range Interpretation Comments POC-GLUCOSE METER 78 mg/dL 70-110 : TESTED A T [facility] 6720 (BEAKER) (test code = [place]ATHEJULISA [place], 1538) [address]: Stitcher Hand/Techni ebenezer ID = [id number] for David Ibarra Respiratory Panel [id number] 16:05:49 Test Item Value Reference Range Interpretation Comments Human Metapneumovirus Not detected Not detected, (test code = 28799-4) Equivocal Rhinovirus (test code = Not detected Not detected, 84460-3) Equivocal INFLUENZA A (NO Not detected Not detected, SUBTYPE) (test code = Equivocal 04746-4) Influenza A subtype H1 (test code = 77998-3) Influenza A Subtype H3 (test code = 25496-1) Influenza A Subtype H1-2009 (test code = 39889-8) Influenza B (test code Not detected Not detected, = 67761-9) Equivocal Respiratory Syncytial Not detected Not detected, Virus (test code = Equivocal 05117-0) Parainfluenza Virus 1 Not detected Not detected, (test code = 79474-2) Equivocal Parainfluenza Virus 2 Not detected Not detected, (test code = 14118-1) Equivocal Parainfluenza virus 3 Not detected Not detected, (test code = 92779-7) Equivocal Parainfluenza Virus 4 Not detected Not detected, (test code = 07112-6) Equivocal Adenovirus (test code = Not detected Not detected, 18941-1) Equivocal Coronavirus 229E (test Not detected Not detected, code = 19870-8) Equivocal Coronavirus HKU1 (test Not detected Not detected, code = 13441-2) Equivocal Coronavirus NL63 (test Not detected Not detected, code = 17403-0) Equivocal Coronavirus OC43 (test Not detected Not detected, code = 69514-6) Equivocal Bordetella Pertussis Not detected Not detected, (test code = 51064-5) Equivocal Chlamydophila Not detected Not detected, Pneumoniae (test code = Equivocal 20731-5) Mycoplasma Pneumoniae Not detected Not detected, (test code = 13168-9) Equivocal Severe Acute Not detected Not detected, Sqzabyagmjl-CmW-5 (test Equivocal code = 69875-4) Bordtella Parapertussis Not detected Not detected, (test code = 12860-1) Equivocal SCOTT (test code = SCOTT) Other viruses and bacteria not targeted by this PCR panel cannot be excluded; therefore clinical correlation and follow up of serology, culture results, and other molecular studies is required. The results are not intended to be used as the sole means for clinical diagnosis or patient management decisions. This sample was tested at the [facility] Molecular Diagnostics Laboratory using the e[employer]ura TherapeuticsArray Respiratory Panel. It is FDA cleared and has been verified and approved by the [facility] Diagnostics Laboratory for clinical use on nasopharyngeal swab specimens. The performance of the FilmArray RP has not been established in individuals who received influenza vaccine. Recent administration of a nasal influenza vaccine may cause false positive results for Influenza A and/orInfluenza B. [facility] [id number] 16:05:49 Test Item Value Reference Range Interpretation Comments HUMAN METAPNEUMOVIRUS Not detected Not detected, (BEAKER) (test code = 2683) Equivocal RHINOVIRUS (BEAKER) (test Not detected Not detected, code = 2684) Equivocal INFLUENZA A (BEAKER) (test Not detected Not detected, code = 2685) Equivocal INFLUENZA A (NO SUBTYPE) (test code = 3606) INFLUENZA A SUBTYPE H1 (BEAKER) (test code = 2686) INFLUENZA A SUBTYPE H3 (BEAKER) (test code = 2687) INFLUENZA A SUBTYPE H1-2009 (BEAKER) (test code = 3198) INFLUENZA B (BEAKER) (test Not detected Not detected, code = 2688) Equivocal RESPIRATORY SYNCYTIAL VIRUS Not detected Not detected, (BEAKER) (test code = 3199) Equivocal PARAINFLUENZA VIRUS 1 Not detected Not detected, (BEAKER) (test code = 2691) Equivocal PARAINFLUENZA VIRUS 2 Not detected Not detected, (BEAKER) (test code = 2692) Equivocal PARAINFLUENZA VIRUS 3 Not detected Not detected, (BEAKER) (test code = 2693) Equivocal PARAINFLUENZA VIRUS 4 Not detected Not detected, (BEAKER) (test code = 3200) Equivocal ADENOVIRUS (BEAKER) (test Not detected Not detected, code = 2694) Equivocal CORONAVIRUS 229E (BEAKER) Not detected Not detected, (test code = 3201) Equivocal CORONAVIRUS HKU1 (BEAKER) Not detected Not detected, (test code = 3202) Equivocal CORONAVIRUS NL63 (BEAKER) Not detected Not detected, (test code = 3203) Equivocal CORONAVIRUS OC43 (BEAKER) Not detected Not detected, (test code = 3204) Equivocal BORDETELLA PERTUSSIS Not detected Not detected, (BEAKER) (test code = 3205) Equivocal CHLAMYDOPHILA PNEUMONIAE Not detected Not detected, (BEAKER) (test code = 3206) Equivocal MYCOPLASMA PNEUMONIAE Not detected Not detected, (BEAKER) (test code = 3207) Equivocal SEVERE ACUTE RESPIRATORY Not detected Not detected, [id number]-[id number] Equivocal (test code = 8143883) BORDETELLA PARAPERTUSSIS Not detected Not detected, (BKR) (test code = 0879265) Equivocal Other viruses and bacteria not targeted by this PCR panel cannot be excluded; therefore clinical correlation and follow up of serology, culture results, and other molecular studies is required. The results are not intended to be used as the sole means for clinical diagnosis or patient management decisions. This sample was tested at the [facility] Molecular Diagnostics Laboratory using the [employer] TherapeuticsArray Respiratory Panel. It is FDA cleared and has been verified and approved by the [facility] Molecular Diagnostics Laboratory for clinical use on nasopharyngeal swab specimens.The performance of the FilmArrayRP has not been established in individuals who received influenza vaccine. Recent administration of a nasal influenza vaccine may cause false positive results for Influenza A and/orInfluenza B.BLOOD CULTURE IDENTIFICATION [id number] 11:03:29 Test Item Value Reference Interpretation Comments Range LISTERIA MONOCYTOGENES Not detected Not detected (test code = 1522227) STAPHYLOCOCCUS (test Not detected Not detected code = 7345553) STAPHYLOCOCCUS AUREUS Not detected Not detected (test code = 1815190) STREPTOCOCCUS (test Detected Not detected A First li ne therapy: code = 1157977) VancomycinDe -escalat e based on susceptibilitie s Reference Range : Not Detected STREPTOCOCCUS Not detected Not detected AGALACTIAE (GROUP B) (test code = 2591696) STREPTOCOCCUS Not detected Not detected PNEUMONIAE (test code = 9207788) STREPTOCOCCUS PYOGENES Not detected Not detected (GROUP A) (test code = 7918451) ACINETOBACTER BAUMANNII Not detected Not detected (test code = 2609455) HAEMOPHILUS INFLUENZAE Not detected Not detected (test code = 7006814) NEISSERIA MENINGITIDIS Not detected Not detected (test code = 2721810) ENTEROBACTERIACEAE Not detected Not detected (test code = 1450437) ENTEROBACTER CLOACOE Not detected Not detected COMPLEX (test code = 7088863) KLEBSIELLA OXYTOCA Not detected Not detected (test code = 9007644) KLEBSIELLA PNEUMONIAE Not detected Not detected (test code = 1650) PROTEUS (test code = Not detected Not detected 7241822) SERRATIA MARCESCENS Not detected Not detected (test code = 0074575) JOSY ALBICANS (test Not detected Not detected code = 7471319) JOSY GLABRATA (test Not detected Not detected code = 0121055) JOSY KRUSEI (test Not detected Not detected code = 1696432) JOSY PARAPSILOSIS Not detected Not detected (test code = 1538637) JOSY TROPICALIS Not detected Not detected (BKR) (test code = 4962393) ESCHERICHIA COLI (test Not detected Not detected code = 7715279) METHICILLIN-RESISTANCE GENE (test code = 1859131) VANCOMYCIN-RESISTANCE GENE (test code = 9936192) CARBAPENEM-RESISTANCE GENE (test code = 8508733) ENTEROCOCCUS-BEAKER Not detected Not detected (test code = 2927590) PSEUDOMONAS Not detected Not detected AERUGINOSA-BEAKER (test code = 8647594) Other bacteria and resistance markers not targeted by this PCR panel cannot be excluded; therefore clinical correlation and follow up of serology, culture results, and other molecular studies is required. The results are not intended to be used as the sole means for clinical diagnosis or patient management decisions. This sample was tested at the [facility] Molecular Diagnostics Laboratory using the [employer] Blood Culture ID Panel. It is FDA cleared and has been verified and approved by the [facility] Diagnostics Laboratory for clinical use. This laboratory is CLIA-certified and College ofAmerican Pathologists (CAP)-accredited to perform high complexity testing.MAGNESIUM 2022-08-31 06:40:22 Test Item Value Reference Range Interpretation Comments MAGNESIUM (BEAKER) 1.7 mg/dL 1.6-2.6 Specimen slightly (test code = 627) hemolyzed Stitcher Hand ID - PIAYA [id number] 06:40:22 Test Item Value Reference Range Interpretation Comments PHOSPHORUS (BEAKER) 3.5 mg/dL 2.3-4.7 Specimen slightly (test code = 604) hemolyzed Stitcher Hand ID - PIAYA LPROTHROMBIN [id number] 05:10:01 Test Item Value Reference Range Interpretation Comments PROTIME (BEAKER) 30.6 seconds 11.9-14.2 H (test code = 759) INR (BEAKER) (test 3.04 See_Comment [Automat ed message] code = 370) The system g4interactive generated this result transmitted ref erence range: <=5.90. The reference range was not used to int erpret this result as normal/abnormal . RECOMMENDED COUMADIN/WARFARIN INR THERAPY RANGESSTANDARD DOSE: 2.0 - 3.0 Includes: PROPHYLAXIS for venous thrombosis, systemic embolization; TREATMENT for venous thrombosis and/or pulmonary embolus.HIGH RISK: Target INR is 2.5-3.5 for patients with mechanical heart valves.[id number] 04:56:00 Test Item Value Reference Range Interpretation Comments PHOSPHORUS (BEAKER) (test code = 3.7 mg/dL 2.3-4.7 604) Stitcher Hand ID - PIAYA LBASIC METABOLIC [id number] 04:55:59 Test Item Value Reference Range Interpretation Comments SODIUM (BEAKER) 129 meq/L 136-145 L (test code = 381) POTASSIUM 4.0 meq/L 3.5-5.1 (BEAKER) (test code = 379) CHLORIDE (BEAKER) 97 meq/L 98-107 L (test code = 382) CO2 (BEAKER) 20 meq/L 22-29 L (test code = 355) BLOOD UREA 13 mg/dL 7-21 NITROGEN (BEAKER) (test code = 354) CREATININE 1.14 mg/dL 0.57-1.25 (BEAKER) (test code = 358) GLUCOSE RANDOM 118 mg/dL 70-105 H (BEAKER) (test code = 652) CALCIUM (BEAKER) 8.9 mg/dL 8.4-10.2 (test code = 697) EGFR (BEAKER) 79 Interpretatio n of eGFR (test code = mL/min/1.73 values Stage De scription 1092) sq m Result G1 Chio l or high >=90 G2 Mildly decreased 60-89 G3a Mildl y to moderately 45- 59 G3b Moderately to s everely 30-44 G4 Severl y decreased 15-29 G5 Kidney failure <15Reported eGF R is based on the CKD-EPI 202 equation that d oes not use a race coefficientEsti mated GFR is not as accur ate as Creatinine Grace almeida in predicting glom erular filtration rate . Estimated GFR is not appl icable for dialysis patien ts Stitcher Hand ID - SOCO [id number] 04:55:59 Test Item Value Reference Range Interpretation Comments MAGNESIUM (BEAKER) (test code = 1.7 mg/dL 1.6-2.6 627) Stitcher Hand ID - SOCO LCBC W/PLT COUNT & AUTO [id number] 04:38:44 Test Item Value Reference Range Interpretation Comments WHITE BLOOD CELL COUNT (BEAKER) 7.2 K/ L 3.5-10.5 (test code = 775) RED BLOOD CELL COUNT (BEAKER) 4.46 M/ L 4.63-6.08 L (test code = 761) HEMOGLOBIN (BEAKER) (test code = 13.2 GM/DL 13.7-17.5 L 410) HEMATOCRIT (BEAKER) (test code = 39.8 % 40.1-51.0 L 411) MEAN CORPUSCULAR VOLUME (BEAKER) 89 fL 79-92 (test code = 753) MEAN CORPUSCULAR HEMOGLOBIN 29.6 pg 25.7-32.2 (BEAKER) (test code = 751) MEAN CORPUSCULAR HEMOGLOBIN CONC 33.2 GM/DL 32.3-36.5 (BEAKER) (test code = 752) RED CELL DISTRIBUTION WIDTH 16.7 % 11.6-14.4 H (BEAKER) (test code = 412) PLATELET COUNT (BEAKER) (test 140 K/CU MM 150-450 L code = 756) MEAN PLATELET VOLUME (BEAKER) 9.3 fL 9.4-12.4 L (test code = 754) NUCLEATED RED BLOOD CELLS 0 /100 WBC 0-0 (BEAKER) (test code = 413) NEUTROPHILS RELATIVE PERCENT 86 % (BEAKER) (test code = 429) LYMPHOCYTES RELATIVE PERCENT 8 % (BEAKER) (test code = 430) MONOCYTES RELATIVE PERCENT 5 % (BEAKER) (test code = 431) EOSINOPHILS RELATIVE PERCENT 1 % (BEAKER) (test code = 432) BASOPHILS RELATIVE PERCENT 0 % (BEAKER) (test code = 437) NEUTROPHILS ABSOLUTE COUNT 6.20 K/ L 1.78-5.38 H (BEAKER) (test code = 670) LYMPHOCYTES ABSOLUTE COUNT 0.59 K/ L 1.32-3.57 L (BEAKER) (test code = 414) MONOCYTES ABSOLUTE COUNT (BEAKER) 0.33 K/ L 0.30-0.82 (test code = 415) EOSINOPHILS ABSOLUTE COUNT 0.04 K/ L 0.04-0.54 (BEAKER) (test code = 416) BASOPHILS ABSOLUTE COUNT (BEAKER) 0.01 K/ L 0.01-0.08 (test code = 417) IMMATURE GRANULOCYTES-RELATIVE 0.60 % 0.00-1.00 PERCENT (BEAKER) (test code = 2801) RAD, SPINE, LUMBAR, 2 OR 3 [id number] 03:43:00Reason for exam:- >LVADReason for exam:->AICD [facility]OBLEM [facility] WEST : 1970 Sex: MFINAL REPORT EXAM/TECHNIQUE: RAD, SPINE, LUMBAR, 2 OR 3 VIEWS INDICATION: LVAD, AICDproblem. COMPARISON: None. FINDINGS: There are five lumbar-type vertebral bodies. Vertebral body heights are preserved. Visualized transverse processes grossly appear intact. No sagittal listhesis. Multilevel disc degeneration moderate at L5-S1. Impression: No acute osseous process by radiography. Signed: Ulysses Miller Verified Date/Time: 08/31/2022 03:43:45 HIGH SENSITIVITY TROPONIN [id number] 03:34:29 Test Item Value Reference Range Interpretation Comments HIGH SENSITIVITY 58 pg/ml See_Comment H [Automated message] TROPONIN I (test code = The system which 1560576) generated this result transmitted ref erence range: <=35. Th e reference range was not used to int erpret this result as normal/abnormal . Stitcher Hand ID - PIAYA LThe BEESWAX BLEACHER STAT High Sensitivity Troponin-I results should be used in conjunction with other diagnostic information such as ECG, clinical observations and information, and patient symptoms to aid in the diagnosis of PR.SARS-CoV2/Influenza/RSV RT-PCR (Symptomatic ONLY)2022-08-31 01:29:58 Test Item Value Reference Interpretation Comments Range SARS-COV2/RT-PCR Negative Negative The SARS-Co V-2 (test code = target nucleic 00706-5) acids are not detected in thi s specimen. Negat issac results do not preclude SARS-C oV-2 infection and should not be u sed as the sole bas is for patient management decisions. Nega tive results must be combined with clinical observations, patient history , and epidemiolog ical information. A false negative result may occu r if a specimen is improperly collected, transported or handled. This S ARS CoV-2 test is a rapid, real-katlin e RT-PCR test intended for th e qualitative detection of nucleic acid fr om SARS-CoV-2 in a nasopharyngeal swab specimen colle neela from individual s suspected of COVID-19 by the ir healthcare provider. Influenza A RT-PCR Negative Negative The Flu A target (test code = [place] [address]-1) not detected in this specimen. Influenza B RT-PCR Negative Negative The Flu B target (test code = [place] 05856-0) not detected in this specimen. RSV by RT-PCR (test Negative Negative The RSV target code = 91733-8) nucleic acid s are not detected in this specimen. SCOTT (test code = The presence of SCOTT) SARS-CoV-2/FLU/RSV viral nucleic acids cannot rule out co-infections or disease caused by other viral or bacterial pathogens. As with any molecular test, mutations within the target regions of the Xpert Xpress SARS-CoV-2/Flu/RSV test could affect primer and/or probe binding resulting in failure to detect the presence of virus or the virus being detected less predictably. False negative results may occur if the virus is present at levels below the analytical limit of detection in this specimen. This Xpert Xpress SARS-CoV-2/Flu/RSV test is a rapid, real-time RT-PCR test intended for the qualitative detection of nucleic acid from Xpert Xpress SARS-CoV-2/Flu/RSV in a nasopharyngeal swab specimen collected from individuals suspected of Xpert Xpress SARS-CoV-2/Flu/RSV by their healthcare provider. Results from [facility] Xpert Xpress SARS-CoV-2/Flu/RSV test should be correlated with the clinical history, epidemiological data, and other data available to the clinician evaluating the patient. Viral nucleic acid may persist in vivo, independent of virus viability. Detection of analyte target(s) does not imply that the corresponding virus(es) are infectious or are the causative agents for clinical symptoms. This test has not been Food and Drug Administration (FDA) cleared or approved and has been authorized by FDA under an Emergency Use Authorization (EUA). This EUA will be effective until the declaration that circumstances exist justifying the authorization of the emergency use of in vitro diagnostic tests for detection and/or diagnosis of COVID-19 is terminated under Section 564(b)(2) of the Act or the EUA is revoked under Section 564(g) of the Act. Fact Sheet for Healthcare Providers:https://w [employer]/Docu ments/Xpert%20Xpres s%20SARS%20CoV-2/Fa ct%20Sheets/302-390 2%25SYSO-CQM-7%20HE ALTHCARE%20PROVIDER S%20FACT%20SHEET.pd f Fact Sheet for Healthcare Patients:https://[employer]/Docum ents/Xpert%20Xpress %20SARS%20Cov-2/Fac t%20Sheets/302-3801 %63TOLG-IIF-4%20PAT IENT%20FACT%20SHEET .pdf Lab Interpretation Normal (test code = 42911-9) [facility] [id number] 01:29:58 Test Item Value Reference Range Interpretation Comments SARS-COV2/RT-PCR Negative Negative The SARS-Co V-2 target (test code = nucleic acids a re not 2413872) detected in thi s specimen. Negat issac results do not preclude SARS-CoV-2 infe ction and should not be u sed as the sole basis for patient management deci sions. Negative result s must be combined with c linical observations, p atient history, and epidemiological information. A false negative result may occur if a specimen i s improperly gia ected, transported or handled. This SARS CoV-2 test is a rapid, real-katlin e RT-PCR test intended f or the qualitative det ection of nucleic acid fr om SARS-CoV-2 in a nasopharyngeal swab specimen collec neela from individuals chula pected of COVID-19 by the [facility]. INFLUENZA A RT-PCR Negative Negative The Flu A target nucleic (test code = acids are not d etected in 19101107) this specimen. INFLUENZA B RT-PCR Negative Negative The Flu B target nucleic (test code = acids are not d etected in 19101108) this specimen. RSV RT-PCR (test Negative Negative The RSV tar get nucleic code = 19101109) acids are no t detected in this specimen. The presence of SARS-CoV-2/FLU/RSV viral nucleic acids cannot rule out co- infections or disease caused by other viral or bacterial pathogens. As with any molecular test, mutations within the target regions of the Xpert Xpress SARS-CoV-2/Flu/RSV test could affect primer and/or probe binding resulting in failure to detect the presence of virus or the virus being detected less predictably. False negative results may occur if the virus is present at levels below the analytical limit of detection in thisspecimen.This Xpert Xpress SARS-CoV-2/Flu/RSV test is a rapid, real-time RT-PCR test intended for the qualitative detection of nucleic acid from Xpert Xpress SARS-CoV-2/Flu/RSV in a nasopharyngeal swabspecimen collected from individuals suspected of Xpert Xpress SARS-CoV-2/Flu/RSV by their healthcareprovider. Results from [facility] Xpert Xpress SARS-CoV-2/Flu/RSV test should be correlated with the clinical history, epidemiological data, and other data available to the clinician evaluating the patient. Viral nucleic acid may persist in vivo, independent of virus viability. Detection of analyte target(s)does not imply that the corresponding virus(es) are infectious or are the causative agents for clinical symptoms.This test has not been Food and Drug Administration (FDA) cleared or approved and has been authorized by FDA under an Emergency Use Authorization (EUA). This EUA will be effective until thedeclaration that circumstances exist justifying the authorization of the emergency use of in vitro diagnostic tests for detection and/or diagnosis of COVID-19 is terminated under Section 564(b)(2) of the Act or the EUA is revoked under Section 564(g) of the Act.Fact Sheet for Healthcare Providers:https ://www.[employer]/Documents/Xpert%20Xpress%20SARS%20CoV-2/Fact%20Sheets/302-390 2%96JJNA-TYV-3%20HEALTHCARE%20PROVIDERS%20FACT%20SHEET.pdfFact Sheet for Healthcare Patients:https://www.[employer]/Docum ents/Xpert%20Xpress%20SARS%20Cov-2/Fact%20Sheets/302-3801%21RAIK-UYT-6%20PATIENT %20FACT%20SHEET.pdfHIGH SENSITIVITY TROPONIN [id number] 00:33:22 Test Item Value Reference Range Interpretation Comments HIGH SENSITIVITY 55 pg/ml See_Comment H [Automated message] TROPONIN I (test code = The system which [id number]) generated this result transmitted ref erence range: <=35. Th e reference range was not used to int erpret this result as normal/abnormal . Stitcher Hand ID - AUNDREAAYA LThe BEESWAX BLEACHER STAT High Sensitivity Troponin-I results should be used in conjunction with other diagnostic information such as ECG, clinical observations and information, and patient symptoms to aid in the diagnosis of PR.B-TYPE NATRIURETIC FACTOR (BNP)2022-08-31 00:33:21 Test Item Value Reference Range Interpretation Comments B-TYPE NATRIURETIC PEPTIDE (BEAKER) 111 pg/mL 0-100 H (test code = 700) Stitcher Hand ID - PIAYA LCOMPREHENSIVE METABOLIC [id number] 00:30:18 Test Item Value Reference Range Interpretation Comments TOTAL PROTEIN 7.1 gm/dL 6.0-8.3 (BEAKER) (test code = 770) ALBUMIN (BEAKER) 3.7 g/dL 3.5-5.0 (test code = 1145) ALKALINE 75 U/L 40-150 PHOSPHATASE (BEAKER) (test code = 346) BILIRUBIN TOTAL 1.1 mg/dL 0.2-1.2 (BEAKER) (test code = 377) SODIUM (BEAKER) 129 meq/L 136-145 L (test code = 381) POTASSIUM (BEAKER) 4.6 meq/L 3.5-5.1 (test code = 379) CHLORIDE (BEAKER) 99 meq/L 98-107 (test code = 382) CO2 (BEAKER) (test 18 meq/L 22-29 L code = 355) BLOOD UREA 11 mg/dL 7-21 NITROGEN (BEAKER) (test code = 354) CREATININE 1.06 mg/dL 0.57-1.25 (BEAKER) (test code = 358) GLUCOSE RANDOM 145 mg/dL 70-105 H (BEAKER) (test code = 652) CALCIUM (BEAKER) 9.3 mg/dL 8.4-10.2 (test code = 697) AST (SGOT) 15 U/L 5-34 (BEAKER) (test code = 353) ALT (SGPT) 12 U/L 6-55 (BEAKER) (test code = 347) EGFR (BEAKER) 86 Interpretatio n of eGFR (test code = 1092) mL/min/1.[address] age Description sq m Result G1 Chio l or high >=90 G2 Mildly decreased 60-89 G3a Mildl y to moderately 45-5 9 G3b Moderately to s everely 30-44 G4 Severl y decreased 15-29 G5 Kidney failure <15Reported eGF R is based on the CKD-EPI 2020 equation that d oes not use a race coefficientEsti mated GFR is not as accur ate as Creatinine Grace almeida in predicting glom erular filtration rate . Estimated GFR is not appl icable for dialysis patien ts Stitcher Hand ID - SOCO LLACTATE DEHYDROGENASE (LDH)2022-08-31 00:30:18 Test Item Value Reference Range Interpretation Comments LACTATE DEHYDROGENASE (BEAKER) (test 290 U/L 125-220 H code = 635) Stitcher Hand ID - SOCO LCBC W/PLT COUNT & AUTO [id number] 00:29:46 Test Item Value Reference Range Interpretation Comments WHITE BLOOD CELL COUNT (BEAKER) 8.2 K/ L 3.5-10.5 (test code = 775) RED BLOOD CELL COUNT (BEAKER) 4.81 M/ L 4.63-6.08 (test code = 761) HEMOGLOBIN (BEAKER) (test code = 13.9 GM/DL 13.7-17.5 410) HEMATOCRIT (BEAKER) (test code = 42.4 % 40.1-51.0 411) MEAN CORPUSCULAR VOLUME (BEAKER) 88 fL 79-92 (test code = 753) MEAN CORPUSCULAR HEMOGLOBIN 28.9 pg 25.7-32.2 (BEAKER) (test code = 751) MEAN CORPUSCULAR HEMOGLOBIN CONC 32.8 GM/DL 32.3-36.5 (BEAKER) (test code = 752) RED CELL DISTRIBUTION WIDTH 16.7 % 11.6-14.4 H (BEAKER) (test code = 412) PLATELET COUNT (BEAKER) (test 137 K/CU MM 150-450 L code = 756) MEAN PLATELET VOLUME (BEAKER) 9.7 fL 9.4-12.4 (test code = 754) NUCLEATED RED BLOOD CELLS 0 /100 WBC 0-0 (BEAKER) (test code = 413) NEUTROPHILS RELATIVE PERCENT 86 % (BEAKER) (test code = 429) LYMPHOCYTES RELATIVE PERCENT 8 % (BEAKER) (test code = 430) MONOCYTES RELATIVE PERCENT 5 % (BEAKER) (test code = 431) EOSINOPHILS RELATIVE PERCENT 0 % (BEAKER) (test code = 432) BASOPHILS RELATIVE PERCENT 0 % (BEAKER) (test code = 437) NEUTROPHILS ABSOLUTE COUNT 7.04 K/ L 1.78-5.38 H (BEAKER) (test code = 670) LYMPHOCYTES ABSOLUTE COUNT 0.63 K/ L 1.32-3.57 L (BEAKER) (test code = 414) MONOCYTES ABSOLUTE COUNT (BEAKER) 0.41 K/ L 0.30-0.82 (test code = 415) EOSINOPHILS ABSOLUTE COUNT 0.02 K/ L 0.04-0.54 L (BEAKER) (test code = 416) BASOPHILS ABSOLUTE COUNT (BEAKER) 0.01 K/ L 0.01-0.08 (test code = 417) IMMATURE GRANULOCYTES-RELATIVE 0.70 % 0.00-1.00 PERCENT (BEAKER) (test code = 2801) [id number] 00:27:36 Test Item Value Reference Range Interpretation Comments PROTIME (BEAKER) (test 29.5 seconds 11.9-14.2 H code = 759) INR (BEAKER) (test 2.90 See_Comment [Automat ed code = 370) message] The sy stem which generated this result transmitted reference range : <=5.90. The reference range was not used to interpret this result as normal/abnormal . PARTIAL THROMBOPLASTIN 84.8 seconds 22.5-36.0 H TIME (BEAKER) (test code = 760) RECOMMENDED COUMADIN/WARFARIN INR THERAPY RANGESSTANDARD DOSE: 2.0 - 3.0 Includes: PROPHYLAXIS for venous thrombosis, systemic embolization; TREATMENT for venous thrombosis and/or pulmonary embolus.HIGH RISK: Target INR is 2.5-3.5 for patients with mechanical heart valves.LACTIC ACID, [id number] 00:24:16 Test Item Value Reference Range Interpretation Comments LACTATE BLOOD VENOUS 1.61 mmol/L 0.50-2.20 Specime n slightly (2) (BEAKER) (test hemolyzed code = 2872) Stitcher Hand ID - PIAYA LRAD, CHEST, 1 VIEW, NON [id number] 00:21:00Reason for exam:->LVADReason for exam:->AICD PROBLEMShould this be performed at the bedside?->YesVETERANS [facility]FF[facility] SAN DIEGOName: DANA WEST : 1970 Sex: MFINAL REPORT EXAM/TECHNIQUE: Single view frontal radiograph of the chest. INDICATION: Hardware problem. COMPARISON: 10/11/2021 FINDINGS: Devices/Objects: Unchanged appearance of left pectoral AICD and LVAD. Lungs: No focal consolidation. No pleural effusion. No pneumothorax. Heart/Mediastinum: Similar cardiomegaly. Osseous: No acute osseous process. No suspicious osseous lesion. Upper abdomen: Unremarkable. Impression: No acute cardiopulmonary process. Signed: Ulysses Miller MDReport Verified Date/Time: 08/31/2022 00:21:22 (MANUAL DIFFERENTIAL)2022-08-06 12:30:53 Test Item Value Reference Range Interpretation Comments NEUTROPHILS - REL (DIFF) (BEAKER) 78 % (test code = 1359) LYMPHOCYTES - REL (DIFF) (BEAKER) 18 % (test code = 1360) MONOCYTES - REL (DIFF) (BEAKER) 4 % (test code = 1361) NEUTROPHILS - ABS (DIFF) (BEAKER) 6.24 K/ L 1.80-8.00 (test code = 1365) LYMPHOCYTES - ABS (DIFF) (BEAKER) 1.44 K/ L 1.48-4.50 L (test code = 1366) MONOCYTES - ABS (DIFF) (BEAKER) 0.32 K/ L 0.00-1.30 (test code = 1367) TOTAL COUNTED (BEAKER) (test code = 100 1351) WBC MORPHOLOGY (BEAKER) (test code Normal = 487) PLT MORPHOLOGY (BEAKER) (test code Normal = 486) RBC MORPHOLOGY (BEAKER) (test code Normal = 762) BASIC METABOLIC [id number] 12:01:45 Test Item Value Reference Range Interpretation Comments SODIUM (BEAKER) 133 meq/L 136-145 L (test code = 381) POTASSIUM 4.3 meq/L 3.5-5.1 (BEAKER) (test code = 379) CHLORIDE (BEAKER) 102 meq/L 98-107 (test code = 382) CO2 (BEAKER) 23 meq/L 22-29 (test code = 355) BLOOD UREA 19 mg/dL 7-21 NITROGEN (BEAKER) (test code = 354) CREATININE 1.02 mg/dL 0.57-1.25 (BEAKER) (test code = 358) GLUCOSE RANDOM 104 mg/dL 70-105 (BEAKER) (test code = 652) CALCIUM (BEAKER) 9.3 mg/dL 8.4-10.2 (test code = 697) EGFR (BEAKER) 90 Interpretatio n of eGFR (test code = mL/min/1.73 values Stage De scription 1092) sq m Result G1 Chio l or high >=90 G2 Mildly decreased 60-89 G3a Mildl y to moderately 45-5 9 G3b Moderately to s everely 30-44 G4 Severl y decreased 15-29 G5 Kidney failure <15Reported eGF R is based on the CKD-EPI 2020 equation that d oes not use a race coefficientEsti mated GFR is not as accur ate as Creatinine Grace elle in predicting glom erular filtration rate . Estimated GFR is not appl icable for dialysis patien ts Stitcher Hand ID - [id number] 12:01:45 Test Item Value Reference Range Interpretation Comments MAGNESIUM (BEAKER) (test code = 1.7 mg/dL 1.6-2.6 627) Stitcher Hand ID - AIYANAHEPATIC FUNCTION [id number] 12:01:45 Test Item Value Reference Range Interpretation Comments TOTAL PROTEIN (BEAKER) (test code = 7.3 gm/dL 6.0-8.3 770) ALBUMIN (BEAKER) (test code = 1145) 4.1 g/dL 3.5-5.0 BILIRUBIN TOTAL (BEAKER) (test code 0.8 mg/dL 0.2-1.2 = 377) BILIRUBIN DIRECT (BEAKER) (test 0.3 mg/dL 0.1-0.5 code = 706) ALKALINE PHOSPHATASE (BEAKER) (test 90 U/L 40-150 code = 346) AST (SGOT) (BEAKER) (test code = 15 U/L 5-34 353) ALT (SGPT) (BEAKER) (test code = 12 U/L 6-55 347) Stitcher Hand ID - AIYANALACTATE DEHYDROGENASE (LDH)2022-08-06 12:01:45 Test Item Value Reference Range Interpretation Comments LACTATE DEHYDROGENASE (BEAKER) (test 197 U/L 125-220 code = 635) Stitcher Hand ID - AIYANAPROTHROMBIN [id number] 11:49:40 Test Item Value Reference Range Interpretation Comments PROTIME (BEAKER) 23.0 seconds 11.9-14.2 H (test code = 759) INR (BEAKER) (test 2.10 See_Comment [Automat ed message] code = 370) The system whic h generated this result transmitted ref erence range: <=5.90. The reference range was not used to int erpret this result as normal/abnormal . RECOMMENDED COUMADIN/WARFARIN INR THERAPY RANGESSTANDARD DOSE: 2.0 - 3.0 Includes: PROPHYLAXIS for venous thrombosis, systemic embolization; TREATMENT for venous thrombosis and/or pulmonary embolus.HIGH RISK: Target INR is 2.5-3.5 for patients with mechanical heart valves.CBC W/PLT COUNT & AUTO [id number] 11:31:51 Test Item Value Reference Range Interpretation Comments WHITE BLOOD CELL COUNT (BEAKER) 8.0 K/ L 3.5-10.5 (test code = 775) RED BLOOD CELL COUNT (BEAKER) 4.90 M/ L 4.63-6.08 (test code = 761) HEMOGLOBIN (BEAKER) (test code = 14.1 GM/DL 13.7-17.5 410) HEMATOCRIT (BEAKER) (test code = 44.0 % 40.1-51.0 411) MEAN CORPUSCULAR VOLUME (BEAKER) 90 fL 79-92 (test code = 753) MEAN CORPUSCULAR HEMOGLOBIN 28.8 pg 25.7-32.2 (BEAKER) (test code = 751) MEAN CORPUSCULAR HEMOGLOBIN CONC 32.0 GM/DL 32.3-36.5 L (BEAKER) (test code = 752) RED CELL DISTRIBUTION WIDTH 15.4 % 11.6-14.4 H (BEAKER) (test code = 412) PLATELET COUNT (BEAKER) (test 160 K/CU MM 150-450 code = 756) MEAN PLATELET VOLUME (BEAKER) 9.4 fL 9.4-12.4 (test code = 754) NUCLEATED RED BLOOD CELLS 0 /100 WBC 0-0 (BEAKER) (test code = 413) NEUTROPHILS RELATIVE PERCENT 77 % (BEAKER) (test code = 429) LYMPHOCYTES RELATIVE PERCENT 16 % (BEAKER) (test code = 430) MONOCYTES RELATIVE PERCENT 6 % (BEAKER) (test code = 431) EOSINOPHILS RELATIVE PERCENT 1 % (BEAKER) (test code = 432) BASOPHILS RELATIVE PERCENT 0 % (BEAKER) (test code = 437) NEUTROPHILS ABSOLUTE COUNT 6.17 K/ L 1.78-5.38 H (BEAKER) (test code = 670) LYMPHOCYTES ABSOLUTE COUNT 1.27 K/ L 1.32-3.57 L (BEAKER) (test code = 414) MONOCYTES ABSOLUTE COUNT (BEAKER) 0.47 K/ L 0.30-0.82 (test code = 415) EOSINOPHILS ABSOLUTE COUNT 0.07 K/ L 0.04-0.54 (BEAKER) (test code = 416) BASOPHILS ABSOLUTE COUNT (BEAKER) 0.01 K/ L 0.01-0.08 (test code = 417) IMMATURE GRANULOCYTES-RELATIVE 0.40 % 0.00-1.00 PERCENT (BEAKER) (test code = 2801) CBC WITH PLATELET COUNT + MANUAL [id number] 11:31:51 Test Item Value Reference Range Interpretation Comments WHITE BLOOD CELL COUNT (BEAKER) 8.0 K/ L 3.5-10.5 (test code = 775) RED BLOOD CELL COUNT (BEAKER) 4.90 M/ L 4.63-6.08 (test code = 761) HEMOGLOBIN (BEAKER) (test code = 14.1 GM/DL 13.7-17.5 410) HEMATOCRIT (BEAKER) (test code = 44.0 % 40.1-51.0 411) MEAN CORPUSCULAR VOLUME (BEAKER) 90 fL 79-92 (test code = 753) MEAN CORPUSCULAR HEMOGLOBIN 28.8 pg 25.7-32.2 (BEAKER) (test code = 751) MEAN CORPUSCULAR HEMOGLOBIN CONC 32.0 GM/DL 32.3-36.5 L (BEAKER) (test code = 752) RED CELL DISTRIBUTION WIDTH 15.4 % 11.6-14.4 H (BEAKER) (test code = 412) PLATELET COUNT (BEAKER) (test 160 K/CU MM 150-450 code = 756) MEAN PLATELET VOLUME (BEAKER) 9.4 fL 9.4-12.4 (test code = 754) NUCLEATED RED BLOOD CELLS 0 /100 WBC 0-0 (BEAKER) (test code = 413) HEPATIC FUNCTION [id number] 11:50:06 Test Item Value Reference Range Interpretation Comments TOTAL PROTEIN (BEAKER) (test code = 7.6 gm/dL 6.0-8.3 770) ALBUMIN (BEAKER) (test code = 1145) 4.2 g/dL 3.5-5.0 BILIRUBIN TOTAL (BEAKER) (test code 0.8 mg/dL 0.2-1.2 = 377) BILIRUBIN DIRECT (BEAKER) (test 0.3 mg/dL 0.1-0.5 code = 706) ALKALINE PHOSPHATASE (BEAKER) (test 90 U/L 40-150 code = 346) AST (SGOT) (BEAKER) (test code = 17 U/L 5-34 353) ALT (SGPT) (BEAKER) (test code = 19 U/L 6-55 347) Stitcher Hand ID - PIAYA LOperator ID - PIAYA L(MANUAL DIFFERENTIAL)2022-06-18 11:35:02 Test Item Value Reference Range Interpretation Comments NEUTROPHILS - REL (DIFF) (BEAKER) 71 % (test code = 1359) LYMPHOCYTES - REL (DIFF) (BEAKER) 18 % (test code = 1360) MONOCYTES - REL (DIFF) (BEAKER) 9 % (test code = 1361) EOSINOPHILS - REL (DIFF) (BEAKER) 2 % (test code = 1362) NEUTROPHILS - ABS (DIFF) (BEAKER) 4.97 K/ L 1.80-8.00 (test code = 1365) LYMPHOCYTES - ABS (DIFF) (BEAKER) 1.26 K/ L 1.48-4.50 L (test code = 1366) MONOCYTES - ABS (DIFF) (BEAKER) 0.63 K/ L 0.00-1.30 (test code = 1367) EOSINOPHILS - ABS (DIFF) (BEAKER) 0.14 K/ L 0.00-0.50 (test code = 1368) TOTAL COUNTED (BEAKER) (test code = 100 1351) PLT MORPHOLOGY (BEAKER) (test code Normal = 486) RBC MORPHOLOGY (BEAKER) (test code Normal = 762) ATYPICAL LYMPHS(BEAKER) (test code Present = 1678) BASIC METABOLIC [id number] 10:35:16 Test Item Value Reference Range Interpretation Comments SODIUM (BEAKER) 137 meq/L 136-145 (test code = 381) POTASSIUM 4.4 meq/L 3.5-5.1 (BEAKER) (test code = 379) CHLORIDE (BEAKER) 102 meq/L 98-107 (test code = 382) CO2 (BEAKER) 28 meq/L 22-29 (test code = 355) BLOOD UREA 18 mg/dL 7-21 NITROGEN (BEAKER) (test code = 354) CREATININE 1.48 mg/dL 0.57-1.25 H (BEAKER) (test code = 358) GLUCOSE RANDOM 101 mg/dL 70-105 (BEAKER) (test code = 652) CALCIUM (BEAKER) 9.3 mg/dL 8.4-10.2 (test code = 697) EGFR (BEAKER) 58 Interpretatio n of eGFR (test code = mL/min/1.73 values Stage De scription 1092) sq m Result G1 Chio l or high >=90 G2 Mildly decreased 60-89 G3a Mildl y to moderately 45-5 9 G3b Moderately to s everely 30-44 G4 Severl y decreased 15-29 G5 Kidney failure <15Reported eGF R is based on the CKD-EPI 2020 equation that d oes not use a race coefficientEsti mated GFR is not as accur ate as Creatinine Grace elle in predicting glom erular filtration rate . Estimated GFR is not appl icable for dialysis patien ts Stitcher Hand ID - SOCO [id number] 10:35:16 Test Item Value Reference Range Interpretation Comments MAGNESIUM (BEAKER) (test code = 1.9 mg/dL 1.6-2.6 627) Stitcher Hand ID - SOCO LLACTATE DEHYDROGENASE (LDH)2022-06-18 10:35:16 Test Item Value Reference Range Interpretation Comments LACTATE DEHYDROGENASE (BEAKER) (test 192 U/L 125-220 code = 635) Stitcher Hand ID - SOCO LPROTHROMBIN [id number] 10:31:51 Test Item Value Reference Range Interpretation Comments PROTIME (BEAKER) 15.2 seconds 11.9-14.2 H (test code = 759) INR (BEAKER) (test 1.28 See_Comment [Automat ed message] code = 370) The system [employer]inter[employer] generated this result transmitted ref erence range: <=5.90. The reference range was not used to int erpret this result as normal/abnormal . RECOMMENDED COUMADIN/WARFARIN INR THERAPY RANGESSTANDARD DOSE: 2.0 - 3.0 Includes: PROPHYLAXIS for venous thrombosis, systemic embolization; TREATMENT for venous thrombosis and/or pulmonary embolus.HIGH RISK: Target INR is 2.5-3.5 for patients with mechanical heart valves.CBC WITH PLATELET COUNT + MANUAL DIFF 2022-06-18 10:13:23 Test Item Value Reference Range Interpretation Comments WHITE BLOOD CELL COUNT (BEAKER) 7.0 K/ L 3.5-10.5 (test code = 775) RED BLOOD CELL COUNT (BEAKER) 5.07 M/ L 4.63-6.08 (test code = 761) HEMOGLOBIN (BEAKER) (test code = 14.4 GM/DL 13.7-17.5 410) HEMATOCRIT (BEAKER) (test code = 44.8 % 40.1-51.0 411) MEAN CORPUSCULAR VOLUME (BEAKER) 88.4 fL 79.0-92.2 (test code = 753) MEAN CORPUSCULAR HEMOGLOBIN 28.4 pg 25.7-32.2 (BEAKER) (test code = 751) MEAN CORPUSCULAR HEMOGLOBIN CONC 32.1 GM/DL 32.3-36.5 L (BEAKER) (test code = 752) RED CELL DISTRIBUTION WIDTH 15.8 % 11.6-14.4 H (BEAKER) (test code = 412) PLATELET COUNT (BEAKER) (test 210 K/CU MM 150-450 code = 756) MEAN PLATELET VOLUME (BEAKER) 8.7 fL 9.4-12.4 L (test code = 754) NUCLEATED RED BLOOD CELLS 0 /100 WBC 0-0 (BEAKER) (test code = 413) POCT [id number] 00:00:00 Test Item Value Reference Range Interpretation Comments INR (MANUAL) (test code = 1114057) 1.2 [facility](MANUAL DIFFERENTIAL)2022-05-14 11:01:37 Test Item Value Reference Range Interpretation Comments NEUTROPHILS - REL (DIFF) (BEAKER) 66 % (test code = 1359) LYMPHOCYTES - REL (DIFF) (BEAKER) 23 % (test code = 1360) MONOCYTES - REL (DIFF) (BEAKER) 7 % (test code = 1361) EOSINOPHILS - REL (DIFF) (BEAKER) 4 % (test code = 1362) NEUTROPHILS - ABS (DIFF) (BEAKER) 5.15 K/ L 1.80-8.00 (test code = 1365) LYMPHOCYTES - ABS (DIFF) (BEAKER) 1.79 K/ L 1.48-4.50 (test code = 1366) MONOCYTES - ABS (DIFF) (BEAKER) 0.55 K/ L 0.00-1.30 (test code = 1367) EOSINOPHILS - ABS (DIFF) (BEAKER) 0.31 K/ L 0.00-0.50 (test code = 1368) TOTAL COUNTED (BEAKER) (test code = 100 1351) WBC MORPHOLOGY (BEAKER) (test code Normal = 487) PLT MORPHOLOGY (BEAKER) (test code Normal = 486) RBC MORPHOLOGY (BEAKER) (test code Normal = 762) LACTATE DEHYDROGENASE (LDH)2022-05-14 10:06:03 Test Item Value Reference Range Interpretation Comments LACTATE DEHYDROGENASE (BEAKER) (test 204 U/L 125-220 code = 635) Stitcher Hand ID - EDBASIC METABOLIC [id number] 10:06:02 Test Item Value Reference Range Interpretation Comments SODIUM (BEAKER) 134 meq/L 136-145 L (test code = 381) POTASSIUM 4.1 meq/L 3.5-5.1 (BEAKER) (test code = 379) CHLORIDE (BEAKER) 100 meq/L 98-107 (test code = 382) CO2 (BEAKER) 27 meq/L 22-29 (test code = 355) BLOOD UREA 18 mg/dL 7-21 NITROGEN (BEAKER) (test code = 354) CREATININE 1.03 mg/dL 0.57-1.25 (BEAKER) (test code = 358) GLUCOSE RANDOM 57 mg/dL 70-105 L (BEAKER) (test code = 652) CALCIUM (BEAKER) 9.5 mg/dL 8.4-10.2 (test code = 697) EGFR (BEAKER) 89 Interpretatio n of eGFR (test code = mL/min/1.73 values Stage De scription 1092) sq m Result G1 Chio l or high >=90 G2 Mildly decreased 60-89 G3a Mildl y to moderately 45-5 9 G3b Moderately to s everely 30-44 G4 Severl y decreased 15-29 G5 Kidney failure <15Reported eGF R is based on the CKD-EPI 2020 equation that d oes not use a race coefficientEsti mated GFR is not as accur ate as Creatinine Grace almeida in predicting glom erular filtration rate . Estimated GFR is not appl icable for dialysis patien ts Stitcher Hand ID - [id number] 10:06:02 Test Item Value Reference Range Interpretation Comments MAGNESIUM (BEAKER) (test code = 1.8 mg/dL 1.6-2.6 627) Stitcher Hand ID - EDHEPATIC FUNCTION [id number] 10:06:02 Test Item Value Reference Range Interpretation Comments TOTAL PROTEIN (BEAKER) (test code = 7.9 gm/dL 6.0-8.3 770) ALBUMIN (BEAKER) (test code = 1145) 4.3 g/dL 3.5-5.0 BILIRUBIN TOTAL (BEAKER) (test code 0.6 mg/dL 0.2-1.2 = 377) BILIRUBIN DIRECT (BEAKER) (test 0.3 mg/dL 0.1-0.5 code = 706) ALKALINE PHOSPHATASE (BEAKER) (test 90 U/L 40-150 code = 346) AST (SGOT) (BEAKER) (test code = 17 U/L 5-34 353) ALT (SGPT) (BEAKER) (test code = 17 U/L 6-55 347) Stitcher Hand ID - EDPROTHROMBIN TIME/[id number] 09:41:55 Test Item Value Reference Range Interpretation Comments PROTIME (BEAKER) 16.4 seconds 11.9-14.2 H (test code = 759) INR (BEAKER) (test 1.35 See_Comment [Automat ed message] code = 370) The system g4interactive generated this result transmitted ref erence range: <=5.90. The reference range was not used to int erpret this result as normal/abnormal . RECOMMENDED COUMADIN/WARFARIN INR THERAPY RANGESSTANDARD DOSE: 2.0 - 3.0 Includes: PROPHYLAXIS for venous thrombosis, systemic embolization; TREATMENT for venous thrombosis and/or pulmonary embolus.HIGH RISK: Target INR is 2.5-3.5 for patients with mechanical heart valves.CBC WITH PLATELET COUNT + MANUAL DIFF 2022-05-14 09:34:13 Test Item Value Reference Range Interpretation Comments WHITE BLOOD CELL COUNT (BEAKER) 7.8 K/ L 3.5-10.5 (test code = 775) RED BLOOD CELL COUNT (BEAKER) 4.89 M/ L 4.63-6.08 (test code = 761) HEMOGLOBIN (BEAKER) (test code = 13.5 GM/DL 13.7-17.5 L 410) HEMATOCRIT (BEAKER) (test code = 43.3 % 40.1-51.0 411) MEAN CORPUSCULAR VOLUME (BEAKER) 88.5 fL 79.0-92.2 (test code = 753) MEAN CORPUSCULAR HEMOGLOBIN 27.6 pg 25.7-32.2 (BEAKER) (test code = 751) MEAN CORPUSCULAR HEMOGLOBIN CONC 31.2 GM/DL 32.3-36.5 L (BEAKER) (test code = 752) RED CELL DISTRIBUTION WIDTH 16.7 % 11.6-14.4 H (BEAKER) (test code = 412) PLATELET COUNT (BEAKER) (test 213 K/CU MM 150-450 code = 756) MEAN PLATELET VOLUME (BEAKER) 9.1 fL 9.4-12.4 L (test code = 754) NUCLEATED RED BLOOD CELLS 0 /100 WBC 0-0 (BEAKER) (test code = 413) WOUND CULTURE + GRAM [id number] 06:07:25 Test Item Value Reference Interpretation Comments Range CULTURE (BEAKER) STAPHYLOCOCCUS A 4+ Staphy lococcus (test code = 1095) AUREUS aureus Clindamycin (test S code = 10) Erythromycin (test S code = 4) Linezolid (test code S = 40) Nitrofurantoin (test S code = 23) Oxacillin (test code S = 14) Rifampin (test code = S 43) Tetracycline (test S code = 2) Trimethoprim + S Sulfamethoxazole (test code = 47) Vancomycin (test code S = 13) CULTURE (BEAKER) STAPHYLOCOCCUS A 4+ Staphy lococcus (test code = 1095) AUREUS aureusof a second type Clindamycin (test S code = 10) Erythromycin (test S code = 4) Linezolid (test code S = 40) Nitrofurantoin (test S code = 23) Oxacillin (test code S = 14) Rifampin (test code = S 43) Tetracycline (test S code = 2) Trimethoprim + S Sulfamethoxazole (test code = 47) Vancomycin (test code S = 13) GRAM STAIN RESULT 2+ WBCs (BEAKER) (test code = 1123) GRAM STAIN RESULT No organisms seen (BEAKER) (test code = 480061) BASIC METABOLIC [id number] 09:59:28 Test Item Value Reference Range Interpretation Comments SODIUM (BEAKER) 138 meq/L 136-145 (test code = 381) POTASSIUM (BEAKER) 3.9 meq/L 3.5-5.1 (test code = 379) CHLORIDE (BEAKER) 104 meq/L 98-107 (test code = 382) CO2 (BEAKER) (test 23 meq/L 22-29 code = 355) BLOOD UREA NITROGEN 15 mg/dL 7-21 (BEAKER) (test code = 354) CREATININE (BEAKER) 0.95 mg/dL 0.57-1.25 (test code = 358) GLUCOSE RANDOM 108 mg/dL 70-105 H (BEAKER) (test code = 652) CALCIUM (BEAKER) 8.5 mg/dL 8.4-10.2 (test code = 697) EGFR (BEAKER) (test 84 mL/min/1.73 ESTIMA NEELA GFR IS code = 1092) sq m NOT ACCURATE CREATININE CLEARANCE IN PREDICTING GLOMERULAR FILTRATION RATE . ESTIMATED GFR I S NOT APPLICABLE FOR DIALYSIS PATIEN TS. Stitcher Hand ID - PIAYA [id number] 09:59:28 Test Item Value Reference Range Interpretation Comments MAGNESIUM (BEAKER) (test code = 1.7 mg/dL 1.6-2.6 627) Stitcher Hand ID - PIAYA LHEPATIC FUNCTION [id number] 09:59:28 Test Item Value Reference Range Interpretation Comments TOTAL PROTEIN (BEAKER) (test code = 6.9 gm/dL 6.0-8.3 770) ALBUMIN (BEAKER) (test code = 1145) 3.7 g/dL 3.5-5.0 BILIRUBIN TOTAL (BEAKER) (test code 0.4 mg/dL 0.2-1.2 = 377) BILIRUBIN DIRECT (BEAKER) (test 0.2 mg/dL 0.1-0.5 code = 706) ALKALINE PHOSPHATASE (BEAKER) (test 85 U/L 40-150 code = 346) AST (SGOT) (BEAKER) (test code = 11 U/L 5-34 353) ALT (SGPT) (BEAKER) (test code = 10 U/L 6-55 347) Stitcher Hand ID - SOCO LLACTATE DEHYDROGENASE (LDH)2022-03-26 09:59:28 Test Item Value Reference Range Interpretation Comments LACTATE DEHYDROGENASE (BEAKER) (test 163 U/L 125-220 code = 635) Stitcher Hand ID Sal WAN LPROTHROMBIN TIME/[id number] 09:45:45 Test Item Value Reference Range Interpretation Comments PROTIME (BEAKER) 21.9 seconds 11.9-14.2 H (test code = 759) INR (BEAKER) (test 1.93 See_Comment [Automat ed message] code = 370) The system g4interactive generated this result transmitted ref erence range: <=5.90. The reference range was not used to int erpret this result as normal/abnormal . RECOMMENDED COUMADIN/WARFARIN INR THERAPY RANGESSTANDARD DOSE: 2.0 - 3.0 Includes: PROPHYLAXIS for venous thrombosis, systemic embolization; TREATMENT for venous thrombosis and/or pulmonary embolus.HIGH RISK: Target INR is 2.5-3.5 for patients with mechanical heart valves.CBC W/PLT COUNT & AUTO [id number] 09:36:20 Test Item Value Reference Range Interpretation Comments WHITE BLOOD CELL COUNT (BEAKER) 5.9 K/ L 3.5-10.5 (test code = 775) RED BLOOD CELL COUNT (BEAKER) 4.31 M/ L 4.63-6.08 L (test code = 761) HEMOGLOBIN (BEAKER) (test code = 12.0 GM/DL 13.7-17.5 L 410) HEMATOCRIT (BEAKER) (test code = 38.3 % 40.1-51.0 L 411) MEAN CORPUSCULAR VOLUME (BEAKER) 88.9 fL 79.0-92.2 (test code = 753) MEAN CORPUSCULAR HEMOGLOBIN 27.8 pg 25.7-32.2 (BEAKER) (test code = 751) MEAN CORPUSCULAR HEMOGLOBIN CONC 31.3 GM/DL 32.3-36.5 L (BEAKER) (test code = 752) RED CELL DISTRIBUTION WIDTH 14.6 % 11.6-14.4 H (BEAKER) (test code = 412) PLATELET COUNT (BEAKER) (test 169 K/CU MM 150-450 code = 756) MEAN PLATELET VOLUME (BEAKER) 8.7 fL 9.4-12.4 L (test code = 754) NUCLEATED RED BLOOD CELLS 0 /100 WBC 0-0 (BEAKER) (test code = 413) NEUTROPHILS RELATIVE PERCENT 63 % (BEAKER) (test code = 429) LYMPHOCYTES RELATIVE PERCENT 24 % (BEAKER) (test code = 430) MONOCYTES RELATIVE PERCENT 8 % (BEAKER) (test code = 431) EOSINOPHILS RELATIVE PERCENT 3 % (BEAKER) (test code = 432) BASOPHILS RELATIVE PERCENT 1 % (BEAKER) (test code = 437) NEUTROPHILS ABSOLUTE COUNT 3.73 K/ L 1.78-5.38 (BEAKER) (test code = 670) LYMPHOCYTES ABSOLUTE COUNT 1.41 K/ L 1.32-3.57 (BEAKER) (test code = 414) MONOCYTES ABSOLUTE COUNT (BEAKER) 0.47 K/ L 0.30-0.82 (test code = 415) EOSINOPHILS ABSOLUTE COUNT 0.20 K/ L 0.04-0.54 (BEAKER) (test code = 416) BASOPHILS ABSOLUTE COUNT (BEAKER) 0.03 K/ L 0.01-0.08 (test code = 417) IMMATURE GRANULOCYTES-RELATIVE 1 % 0-1 PERCENT (BEAKER) (test code = 2801) BLOOD [id number] 20:00:52 Test Item Value Reference Range Interpretation Comments CULTURE (BEAKER) (test No growth in 5 days code = 1095) BLOOD [id number] 20:00:52 Test Item Value Reference Range Interpretation Comments CULTURE (BEAKER) (test No growth in 5 days code = 1095) [id number] 12:32:01 Test Item Value Reference Range Interpretation Comments PARTIAL THROMBOPLASTIN TIME 48.8 seconds 22.5-36.0 H (BEAKER) (test code = 760) LACTATE DEHYDROGENASE (LDH)2022-03-05 05:30:24 Test Item Value Reference Range Interpretation Comments LACTATE DEHYDROGENASE (BEAKER) (test 162 U/L 125-220 code = 635) Stitcher Hand ID - BSBASIC METABOLIC [id number] 05:30:23 Test Item Value Reference Range Interpretation Comments SODIUM (BEAKER) 131 meq/L 136-145 L (test code = 381) POTASSIUM (BEAKER) 4.2 meq/L 3.5-5.1 (test code = 379) CHLORIDE (BEAKER) 99 meq/L 98-107 (test code = 382) CO2 (BEAKER) (test 24 meq/L 22-29 code = 355) BLOOD UREA NITROGEN 12 mg/dL 7-21 (BEAKER) (test code = 354) CREATININE (BEAKER) 0.86 mg/dL 0.57-1.25 (test code = 358) GLUCOSE RANDOM 103 mg/dL 70-105 (BEAKER) (test code = 652) CALCIUM (BEAKER) 8.2 mg/dL 8.4-10.2 L (test code = 697) EGFR (BEAKER) (test 94 mL/min/1.73 ESTIMA NEELA GFR IS code = 1092) sq m NOT ACCURATE CREATININE CLEARANCE IN PREDICTING GLOMERULAR FILTRATION RATE . ESTIMATED GFR I S NOT APPLICABLE FOR DIALYSIS PATIEN TS. Stitcher Hand ID - [id number] 05:20:39 Test Item Value Reference Range Interpretation Comments PARTIAL THROMBOPLASTIN TIME 58.9 seconds 22.5-36.0 H (BEAKER) (test code = 760) PROTHROMBIN [id number] 05:19:38 Test Item Value Reference Range Interpretation Comments PROTIME (BEAKER) 17.9 seconds 11.9-14.2 H (test code = 759) INR (BEAKER) (test 1.50 See_Comment [Automat ed message] code = 370) The system g4interactive generated this result transmitted ref erence range: <=5.90. The reference range was not used to int erpret this result as normal/abnormal . RECOMMENDED COUMADIN/WARFARIN INR THERAPY RANGESSTANDARD DOSE: 2.0 - 3.0 Includes: PROPHYLAXIS for venous thrombosis, systemic embolization; TREATMENT for venous thrombosis and/or pulmonary embolus.HIGH RISK: Target INR is 2.5-3.5 for patients with mechanical heart valves.CBC W/PLT COUNT & AUTO [id number] 05:17:00 Test Item Value Reference Range Interpretation Comments WHITE BLOOD CELL COUNT (BEAKER) 5.9 K/ L 3.5-10.5 (test code = 775) RED BLOOD CELL COUNT (BEAKER) 3.86 M/ L 4.63-6.08 L (test code = 761) HEMOGLOBIN (BEAKER) (test code = 10.8 GM/DL 13.7-17.5 L 410) HEMATOCRIT (BEAKER) (test code = 35.3 % 40.1-51.0 L 411) MEAN CORPUSCULAR VOLUME (BEAKER) 91.5 fL 79.0-92.2 (test code = 753) MEAN CORPUSCULAR HEMOGLOBIN 28.0 pg 25.7-32.2 (BEAKER) (test code = 751) MEAN CORPUSCULAR HEMOGLOBIN CONC 30.6 GM/DL 32.3-36.5 L (BEAKER) (test code = 752) RED CELL DISTRIBUTION WIDTH 13.9 % 11.6-14.4 (BEAKER) (test code = 412) PLATELET COUNT (BEAKER) (test 179 K/CU MM 150-450 code = 756) MEAN PLATELET VOLUME (BEAKER) 9.3 fL 9.4-12.4 L (test code = 754) NUCLEATED RED BLOOD CELLS 0 /100 WBC 0-0 (BEAKER) (test code = 413) NEUTROPHILS RELATIVE PERCENT 73 % (BEAKER) (test code = 429) LYMPHOCYTES RELATIVE PERCENT 16 % (BEAKER) (test code = 430) MONOCYTES RELATIVE PERCENT 7 % (BEAKER) (test code = 431) EOSINOPHILS RELATIVE PERCENT 4 % (BEAKER) (test code = 432) BASOPHILS RELATIVE PERCENT 0 % (BEAKER) (test code = 437) NEUTROPHILS ABSOLUTE COUNT 4.27 K/ L 1.78-5.38 (BEAKER) (test code = 670) LYMPHOCYTES ABSOLUTE COUNT 0.93 K/ L 1.32-3.57 L (BEAKER) (test code = 414) MONOCYTES ABSOLUTE COUNT (BEAKER) 0.40 K/ L 0.30-0.82 (test code = 415) EOSINOPHILS ABSOLUTE COUNT 0.22 K/ L 0.04-0.54 (BEAKER) (test code = 416) BASOPHILS ABSOLUTE COUNT (BEAKER) 0.01 K/ L 0.01-0.08 (test code = 417) IMMATURE GRANULOCYTES-RELATIVE 0 % 0-1 PERCENT (BEAKER) (test code = 2801) [id number] 22:18:45 Test Item Value Reference Range Interpretation Comments PARTIAL THROMBOPLASTIN TIME 41.6 seconds 22.5-36.0 H (BEAKER) (test code = 760) PLATELET [id number] 13:08:49 Test Item Value Reference Range Interpretation Comments PLATELET COUNT (BEAKER) (test 200 K/CU MM 150-450 code = 756) Stitcher Hand ID - [id number] 12:37:58 Test Item Value Reference Range Interpretation Comments PARTIAL THROMBOPLASTIN TIME 40.1 seconds 22.5-36.0 H (BEAKER) (test code = 760) LACTATE DEHYDROGENASE (LDH)2022-03-04 05:24:07 Test Item Value Reference Range Interpretation Comments LACTATE DEHYDROGENASE (BEAKER) (test 174 U/L 125-220 code = 635) Stitcher Hand ID - PIAYA LBASIC METABOLIC [id number] 05:24:06 Test Item Value Reference Range Interpretation Comments SODIUM (BEAKER) 135 meq/L 136-145 L (test code = 381) POTASSIUM (BEAKER) 4.3 meq/L 3.5-5.1 (test code = 379) CHLORIDE (BEAKER) 101 meq/L 98-107 (test code = 382) CO2 (BEAKER) (test 26 meq/L 22-29 code = 355) BLOOD UREA NITROGEN 14 mg/dL 7-21 (BEAKER) (test code = 354) CREATININE (BEAKER) 0.98 mg/dL 0.57-1.25 (test code = 358) GLUCOSE RANDOM 96 mg/dL 70-105 (BEAKER) (test code = 652) CALCIUM (BEAKER) 8.7 mg/dL 8.4-10.2 (test code = 697) EGFR (BEAKER) (test 81 mL/min/1.73 ESTIMA NEELA GFR IS code = 1092) sq m NOT ACCURATE CREATININE CLEARANCE IN PREDICTING GLOMERULAR FILTRATION RATE . ESTIMATED GFR I S NOT APPLICABLE FOR DIALYSIS PATIEN TS. Stitcher Hand ID - PIAYA LCBC W/PLT COUNT & AUTO [id number] 05:08:57 Test Item Value Reference Range Interpretation Comments WHITE BLOOD CELL COUNT (BEAKER) 8.5 K/ L 3.5-10.5 (test code = 775) RED BLOOD CELL COUNT (BEAKER) 4.12 M/ L 4.63-6.08 L (test code = 761) HEMOGLOBIN (BEAKER) (test code = 11.5 GM/DL 13.7-17.5 L 410) HEMATOCRIT (BEAKER) (test code = 37.8 % 40.1-51.0 L 411) MEAN CORPUSCULAR VOLUME (BEAKER) 91.7 fL 79.0-92.2 (test code = 753) MEAN CORPUSCULAR HEMOGLOBIN 27.9 pg 25.7-32.2 (BEAKER) (test code = 751) MEAN CORPUSCULAR HEMOGLOBIN CONC 30.4 GM/DL 32.3-36.5 L (BEAKER) (test code = 752) RED CELL DISTRIBUTION WIDTH 14.0 % 11.6-14.4 (BEAKER) (test code = 412) PLATELET COUNT (BEAKER) (test 200 K/CU MM 150-450 code = 756) MEAN PLATELET VOLUME (BEAKER) 9.0 fL 9.4-12.4 L (test code = 754) NUCLEATED RED BLOOD CELLS 0 /100 WBC 0-0 (BEAKER) (test code = 413) NEUTROPHILS RELATIVE PERCENT 82 % (BEAKER) (test code = 429) LYMPHOCYTES RELATIVE PERCENT 11 % (BEAKER) (test code = 430) MONOCYTES RELATIVE PERCENT 5 % (BEAKER) (test code = 431) EOSINOPHILS RELATIVE PERCENT 2 % (BEAKER) (test code = 432) BASOPHILS RELATIVE PERCENT 0 % (BEAKER) (test code = 437) NEUTROPHILS ABSOLUTE COUNT 6.93 K/ L 1.78-5.38 H (BEAKER) (test code = 670) LYMPHOCYTES ABSOLUTE COUNT 0.92 K/ L 1.32-3.57 L (BEAKER) (test code = 414) MONOCYTES ABSOLUTE COUNT (BEAKER) 0.45 K/ L 0.30-0.82 (test code = 415) EOSINOPHILS ABSOLUTE COUNT 0.16 K/ L 0.04-0.54 (BEAKER) (test code = 416) BASOPHILS ABSOLUTE COUNT (BEAKER) 0.01 K/ L 0.01-0.08 (test code = 417) IMMATURE GRANULOCYTES-RELATIVE 0 % 0-1 PERCENT (BEAKER) (test code = 2801) PROTHROMBIN [id number] 04:53:11 Test Item Value Reference Range Interpretation Comments PROTIME (BEAKER) 17.7 seconds 11.9-14.2 H (test code = 759) INR (BEAKER) (test 1.48 See_Comment [Automat ed message] code = 370) The system g4interactive generated this result transmitted ref erence range: <=5.90. The reference range was not used to int erpret this result as normal/abnormal . RECOMMENDED COUMADIN/WARFARIN INR THERAPY RANGESSTANDARD DOSE: 2.0 - 3.0 Includes: PROPHYLAXIS for venous thrombosis, systemic embolization; TREATMENT for venous thrombosis and/or pulmonary embolus.HIGH RISK: Target INR is 2.5-3.5 for patients with mechanical heart valves.PROTHROMBIN TIME/[id number] 00:23:16 Test Item Value Reference Range Interpretation Comments PROTIME (BEAKER) 18.6 seconds 11.9-14.2 H (test code = 759) INR (BEAKER) (test 1.57 See_Comment [Automat ed message] code = 370) The system g4interactive generated this result transmitted ref erence range: <=5.90. The reference range was not used to int erpret this result as normal/abnormal . RECOMMENDED COUMADIN/WARFARIN INR THERAPY RANGESSTANDARD DOSE: 2.0 - 3.0 Includes: PROPHYLAXIS for venous thrombosis, systemic embolization; TREATMENT for venous thrombosis and/or pulmonary embolus.HIGH RISK: Target INR is 2.5-3.5 for patients with mechanical heart valves.SARS-COV2/RT-PCR ([facility]) 2022-03-03 19:30:54 Test Item Value Reference Range Interpretation Comments SARS-COV2/RT-PCR Negative Negative The SARS-Co V-2 target (test code = nucleic acids a re not [id number]) detected in thi s specimen. Negative result s do not preclude SARS-C oV-2 infection and s hould not be used as the ludmila e basis for patient managem ent decisions. Nega tive results must be combine d with clinical observ ations, patient history , and epidemiological information. A false negativ e result may occur if a spec imen is improperly gia ected, transported or handled. This SARS CoV-2 test is a rapid, real-time RT-PC R test intended for th e qualitative detection of nu cleic acid from SARS-CoV-2 in a nasopharyngeal swab specimen collected from individuals suspected of CO VID-19 by their healthcar e provider. This test has been authorized by FDA under an EUA for use by authorized laboratories. This test is only authorized for the duration of the declaration that circumstances exist justifying the authorization of emergency use of in vitro diagnostic tests for detection and/or diagnosis of COVID-19 under Section 564(b)(1) of the Federal Food, Drug and Cosmetic Act, 21 U.S.C. 360bbb-3(b)(1), unless the authorization is terminated or revoked sooner. Fact Sheet for Healthcare Providers: https://www.[employer]/Documents/Xpert%20Xpress%20SARS%20CoV-2/Fact%20Sheets/302-3802%52JQWK-MDL-6%20 HEALTHCARE%20PROVIDERS%20FACT%20SHEET.pdf Fact Sheet for Healthcare Patients: https://www.[employer]/Documents/Xpert%20Xp ress%20SARS%20CoV-2/Fact%20Sheets/302-3801%82VZSN-ESE-8%20PATIENT%20FACT%20SHEET .pdfHIGH SENSITIVITY TROPONIN [id number] 18:12:53 Test Item Value Reference Range Interpretation Comments HIGH SENSITIVITY 11 pg/ml See_Comment [Automated message] TROPONIN I (test code = The system which [id number]) generated this result transmitted ref erence range: <=35. Th e reference range was not used to int erpret this result as normal/abnormal . Stitcher Hand ID - BSThe [employer] BLEACHER STAT High Sensitivity Troponin-I results should be used in conjunctionwith other diagnostic information such as ECG, clinical observations and information, and patient symptoms to aid in the diagnosis of PR.[id number] 18:06:56 Test Item Value Reference Range Interpretation Comments LIPASE (BEAKER) (test code = 749) 8 U/L 8-78 Stitcher Hand ID - BSCOMPREHENSIVE METABOLIC [id number] 18:06:55 Test Item Value Reference Range Interpretation Comments TOTAL PROTEIN 7.8 gm/dL 6.0-8.3 Specimen sligh tly (BEAKER) (test code = hemoly zed 770) ALBUMIN (BEAKER) 3.9 g/dL 3.5-5.0 Specimen sl ightly (test code = 1145) hemolyzed ALKALINE PHOSPHATASE 80 U/L 40-150 (BEAKER) (test code = 346) BILIRUBIN TOTAL 0.7 mg/dL 0.2-1.2 Specimen sli ghtly (BEAKER) (test code = hemoly zed 377) SODIUM (BEAKER) (test 138 meq/L 136-145 code = 381) POTASSIUM (BEAKER) 4.3 meq/L 3.5-5.1 Specimen slightly (test code = 379) hemolyzed CHLORIDE (BEAKER) 103 meq/L 98-107 (test code = 382) CO2 (BEAKER) (test 25 meq/L 22-29 code = 355) BLOOD UREA NITROGEN 14 mg/dL 7-21 (BEAKER) (test code = 354) CREATININE (BEAKER) 0.98 mg/dL 0.57-1.25 Specimen slightly (test code = 358) hemolyzed GLUCOSE RANDOM 99 mg/dL 70-105 (BEAKER) (test code = 652) CALCIUM (BEAKER) 9.4 mg/dL 8.4-10.2 (test code = 697) AST (SGOT) (BEAKER) 13 U/L 5-34 Specimen slightly (test code = 353) hemolyzed ALT (SGPT) (BEAKER) 11 U/L 6-55 Specimen slightly (test code = 347) hemolyzed EGFR (BEAKER) (test 81 mL/min/1.73 ESTIMA NEELA GFR IS code = 1092) sq m NOT ACCURATE CREATININE CLEARANCE IN PREDICTING GLOMERULAR FILTRATION RATE . ESTIMATED GFR I S NOT APPLICABLE FOR DIALYSIS PATIEN TS. Stitcher Hand ID - BSCBC W/PLT COUNT & AUTO [id number] 17:42:09 Test Item Value Reference Range Interpretation Comments WHITE BLOOD CELL COUNT (BEAKER) 7.3 K/ L 3.5-10.5 (test code = 775) RED BLOOD CELL COUNT (BEAKER) 4.27 M/ L 4.63-6.08 L (test code = 761) HEMOGLOBIN (BEAKER) (test code = 12.0 GM/DL 13.7-17.5 L 410) HEMATOCRIT (BEAKER) (test code = 38.8 % 40.1-51.0 L 411) MEAN CORPUSCULAR VOLUME (BEAKER) 90.9 fL 79.0-92.2 (test code = 753) MEAN CORPUSCULAR HEMOGLOBIN 28.1 pg 25.7-32.2 (BEAKER) (test code = 751) MEAN CORPUSCULAR HEMOGLOBIN CONC 30.9 GM/DL 32.3-36.5 L (BEAKER) (test code = 752) RED CELL DISTRIBUTION WIDTH 13.8 % 11.6-14.4 (BEAKER) (test code = 412) PLATELET COUNT (BEAKER) (test 268 K/CU MM 150-450 code = 756) MEAN PLATELET VOLUME (BEAKER) 8.8 fL 9.4-12.4 L (test code = 754) NUCLEATED RED BLOOD CELLS 0 /100 WBC 0-0 (BEAKER) (test code = 413) NEUTROPHILS RELATIVE PERCENT 78 % (BEAKER) (test code = 429) LYMPHOCYTES RELATIVE PERCENT 15 % (BEAKER) (test code = 430) MONOCYTES RELATIVE PERCENT 5 % (BEAKER) (test code = 431) EOSINOPHILS RELATIVE PERCENT 2 % (BEAKER) (test code = 432) BASOPHILS RELATIVE PERCENT 0 % (BEAKER) (test code = 437) NEUTROPHILS ABSOLUTE COUNT 5.70 K/ L 1.78-5.38 H (BEAKER) (test code = 670) LYMPHOCYTES ABSOLUTE COUNT 1.07 K/ L 1.32-3.57 L (BEAKER) (test code = 414) MONOCYTES ABSOLUTE COUNT (BEAKER) 0.39 K/ L 0.30-0.82 (test code = 415) EOSINOPHILS ABSOLUTE COUNT 0.13 K/ L 0.04-0.54 (BEAKER) (test code = 416) BASOPHILS ABSOLUTE COUNT (BEAKER) 0.01 K/ L 0.01-0.08 (test code = 417) IMMATURE GRANULOCYTES-RELATIVE 0 % 0-1 PERCENT (BEAKER) (test code = 2801) WOUND CULTURE + GRAM [id number] 10:23:09 Test Item Value Reference Interpretation Comments Range CULTURE (BEAKER) STAPHYLOCOCCUS A 4+ Staphy lococcus (test code = 1095) AUREUS aureus Clindamycin (test S code = 10) Erythromycin (test S code = 4) Linezolid (test code S = 40) Nitrofurantoin (test S code = 23) Oxacillin (test code S = 14) Rifampin (test code = S 43) Tetracycline (test S code = 2) Trimethoprim + S Sulfamethoxazole (test code = 47) Vancomycin (test code S = 13) GRAM STAIN RESULT <1+ WBCs (BEAKER) (test code = 1123) GRAM STAIN RESULT 1+ gram positive (BEAKER) (test code = cocci in clusters [id number]) GRAM STAIN RESULT 1+ gram positive (BEAKER) (test code = cocci in pairs [id number]) CT, [id number] 15:51:00Unlisted Reason for Exam - Click Yes and Enter Reason Below->YesUnlisted Reason for Exam->Abdominal pain, unspecified abdominal locationIs this for enterography?->NoWill this procedure require oral contrast?->No [facility] 1970 Sex: MFINAL REPORT TECHNIQUE: CT of the abdomen and pelvis WITHOUT intravenous contrast and WITHOUT oral contrast. Dose modulation, iterative reconstruction, and/or weight-based adjustment ofthe mA/kV was utilized to reduce the radiation dose to as low as reasonably achievable. INDICATION: Unlisted Reason for ExamAbdominal pain, unspecified abdominal location. COMPARISON: CT from 05/20/2021. FINDINGS: ABSENCE OF INTRAVENOUS CONTRAST DECREASES SENSITIVITY FOR DETECTION OF FOCAL LESIONS AND VASCULAR PATHOLOGY. LOWER THORAX: Cardiac device leads in the right atrium, right ventricle, and coronary sinus. There is some prominence of the subpleural soft tissueCardiac apex at the site of the left ventricular assist device. There is a loculated pleural effusion in the left lateral lower chest which measures 8.5 cm on axial image 13. Mild bibasilar atelectasis HEPATOBILIARY: No focal hepatic lesions. Gallbladder is unremarkable. No biliary ductal dilatation.SPLEEN: 14.7 cm splenomegaly.PANCREAS: No focal masses or ductal dilatation. ADRENALS: No adrenal nodules.KIDNEYS/URETERS: No hydronephrosis, stones, or exophytic masses.PELVIC ORGANS/BLADDER: Unremarkable. PERITONEUM/RETROPERITONEUM: No free air or fluid.LYMPH NODES: No lymphadenopathy. There is a prominent right inguinal lymph node which measures 2 x 2.7 cm.VESSELS: Moderate aortoiliac calcification. GI TRACT: No distention or wall thickening. BONES AND SOFT TISSUES: There is prominence of the right rectus abdominis muscle with inflamm atory change which extends down the drive line in the abdominal subcutaneous tissues tissues. Postsurgical changes in the right groin. Prior median sternotomy. Moderate degenerative disc changes of thelower lumbar spine. IMPRESSION: 1.The prominence of the right rectus abdominis muscle with the fat stranding around the subcutaneous portion of the right abdominal driveline is concerning for a driveline infection. A rectus abdominis hematoma is considered less likely since this was placed on 09/09/2021. 2.A loculated left lower chest pleural effusion could be an old hemothorax but is indeterminate. An additional area of subpleural prominence adjacent to the left ventricular assist device is only partially visualized but appears similar to the more inferior collection. 3.The prominent right inguinallymph node is nonspecific but likely reactive. Close clinical follow-up is recommended to exclude a neoplasm. 4.Mild splenomegaly Signed: Catalino Bender MDReport Verified Date/Time: 02/27/2022 15:51:44 Reading Location: [address] Body Reading Room PROTHROMBIN TIME/[id number] 09:12:11 Test Item Value Reference Range Interpretation Comments PROTIME (BEAKER) 22.6 seconds 11.9-14.2 H (test code = 759) INR (BEAKER) (test 2.02 See_Comment [Automat ed message] code = 370) The system g4interactive generated this result transmitted ref erence range: <=5.90. The reference range was not used to int erpret this result as normal/abnormal . RECOMMENDED COUMADIN/WARFARIN INR THERAPY RANGESSTANDARD DOSE: 2.0 - 3.0 Includes: PROPHYLAXIS for venous thrombosis, systemic embolization; TREATMENT for venous thrombosis and/or pulmonary embolus.HIGH RISK: Target INR is 2.5-3.5 for patients with mechanical heart valves.HEPATIC FUNCTION [id number] 09:11:56 Test Item Value Reference Range Interpretation Comments TOTAL PROTEIN (BEAKER) (test code = 7.7 gm/dL 6.0-8.3 770) ALBUMIN (BEAKER) (test code = 1145) 3.9 g/dL 3.5-5.0 BILIRUBIN TOTAL (BEAKER) (test code 0.5 mg/dL 0.2-1.2 = 377) BILIRUBIN DIRECT (BEAKER) (test 0.3 mg/dL 0.1-0.5 code = 706) ALKALINE PHOSPHATASE (BEAKER) (test 81 U/L 40-150 code = 346) AST (SGOT) (BEAKER) (test code = 11 U/L 5-34 353) ALT (SGPT) (BEAKER) (test code = 9 U/L 6-55 347) Stitcher Hand ID Sal WAN LLACTATE DEHYDROGENASE (LDH)2022-02-26 09:11:56 Test Item Value Reference Range Interpretation Comments LACTATE DEHYDROGENASE (BEAKER) (test 175 U/L 125-220 code = 635) Stitcher Hand ID - SOCO LBASIC METABOLIC [id number] 09:11:55 Test Item Value Reference Range Interpretation Comments SODIUM (BEAKER) 137 meq/L 136-145 (test code = 381) POTASSIUM (BEAKER) 3.7 meq/L 3.5-5.1 (test code = 379) CHLORIDE (BEAKER) 96 meq/L 98-107 L (test code = 382) CO2 (BEAKER) (test 32 meq/L 22-29 H code = 355) BLOOD UREA NITROGEN 21 mg/dL 7-21 (BEAKER) (test code = 354) CREATININE (BEAKER) 1.07 mg/dL 0.57-1.25 (test code = 358) GLUCOSE RANDOM 120 mg/dL 70-105 H (BEAKER) (test code = 652) CALCIUM (BEAKER) 9.3 mg/dL 8.4-10.2 (test code = 697) EGFR (BEAKER) (test 73 mL/min/1.73 ESTIMA NEELA GFR IS code = 1092) sq m NOT ACCURATE CREATININE CLEARANCE IN PREDICTING GLOMERULAR FILTRATION RATE . ESTIMATED GFR I S NOT APPLICABLE FOR DIALYSIS PATIEN TS. Stitcher Hand ID - SOCO [id number] 09:11:55 Test Item Value Reference Range Interpretation Comments MAGNESIUM (BEAKER) (test code = 1.8 mg/dL 1.6-2.6 627) Stitcher Hand ID - PIAYA LCBC W/PLT COUNT & AUTO [id number] 08:47:11 Test Item Value Reference Range Interpretation Comments WHITE BLOOD CELL COUNT (BEAKER) 7.3 K/ L 3.5-10.5 (test code = 775) RED BLOOD CELL COUNT (BEAKER) 4.35 M/ L 4.63-6.08 L (test code = 761) HEMOGLOBIN (BEAKER) (test code = 12.2 GM/DL 13.7-17.5 L 410) HEMATOCRIT (BEAKER) (test code = 39.9 % 40.1-51.0 L 411) MEAN CORPUSCULAR VOLUME (BEAKER) 91.7 fL 79.0-92.2 (test code = 753) MEAN CORPUSCULAR HEMOGLOBIN 28.0 pg 25.7-32.2 (BEAKER) (test code = 751) MEAN CORPUSCULAR HEMOGLOBIN CONC 30.6 GM/DL 32.3-36.5 L (BEAKER) (test code = 752) RED CELL DISTRIBUTION WIDTH 13.9 % 11.6-14.4 (BEAKER) (test code = 412) PLATELET COUNT (BEAKER) (test 283 K/CU MM 150-450 code = 756) MEAN PLATELET VOLUME (BEAKER) 8.7 fL 9.4-12.4 L (test code = 754) NUCLEATED RED BLOOD CELLS 0 /100 WBC 0-0 (BEAKER) (test code = 413) NEUTROPHILS RELATIVE PERCENT 78 % (BEAKER) (test code = 429) LYMPHOCYTES RELATIVE PERCENT 13 % (BEAKER) (test code = 430) MONOCYTES RELATIVE PERCENT 6 % (BEAKER) (test code = 431) EOSINOPHILS RELATIVE PERCENT 2 % (BEAKER) (test code = 432) BASOPHILS RELATIVE PERCENT 0 % (BEAKER) (test code = 437) NEUTROPHILS ABSOLUTE COUNT 5.73 K/ L 1.78-5.38 H (BEAKER) (test code = 670) LYMPHOCYTES ABSOLUTE COUNT 0.98 K/ L 1.32-3.57 L (BEAKER) (test code = 414) MONOCYTES ABSOLUTE COUNT (BEAKER) 0.41 K/ L 0.30-0.82 (test code = 415) EOSINOPHILS ABSOLUTE COUNT 0.13 K/ L 0.04-0.54 (BEAKER) (test code = 416) BASOPHILS ABSOLUTE COUNT (BEAKER) 0.02 K/ L 0.01-0.08 (test code = 417) IMMATURE GRANULOCYTES-RELATIVE 1 % 0-1 PERCENT (BEAKER) (test code = 2801) WOUND CULTURE + GRAM [id number] 09:38:29 Test Item Value Reference Range Interpretation Comments CULTURE (BEAKER) (test code No growth = 1095) GRAM STAIN RESULT (BEAKER) <1+ WBCs (test code = 1123) GRAM STAIN RESULT (BEAKER) No organisms seen (test code = 48455) 2D Echo W/Doppler(CW/PW/Color)2022-01-30 11:43:49Ejection FractionSLEH ECHO [facility] 2022-01-29 11:02:23 Test Item Value Reference Range Interpretation Comments SODIUM (BEAKER) 136 meq/L 136-145 (test code = 381) POTASSIUM (BEAKER) 4.7 meq/L 3.5-5.1 (test code = 379) CHLORIDE (BEAKER) 101 meq/L 98-107 (test code = 382) CO2 (BEAKER) (test 28 meq/L 22-29 code = 355) BLOOD UREA NITROGEN 14 mg/dL 7-21 (BEAKER) (test code = 354) CREATININE (BEAKER) 0.86 mg/dL 0.57-1.25 (test code = 358) GLUCOSE RANDOM 110 mg/dL 70-105 H (BEAKER) (test code = 652) CALCIUM (BEAKER) 9.5 mg/dL 8.4-10.2 (test code = 697) EGFR (BEAKER) (test 94 mL/min/1.73 ESTIMA NEELA GFR IS code = 1092) sq m NOT ACCURATE CREATININE CLEARANCE IN PREDICTING GLOMERULAR FILTRATION RATE . ESTIMATED GFR I S NOT APPLICABLE FOR DIALYSIS PATIEN TS. Stitcher Hand ID - SOCO [id number] 11:02:23 Test Item Value Reference Range Interpretation Comments MAGNESIUM (BEAKER) (test code = 1.8 mg/dL 1.6-2.6 627) Stitcher Hand ID - SOCO LHEPATIC FUNCTION [id number] 11:02:23 Test Item Value Reference Range Interpretation Comments TOTAL PROTEIN (BEAKER) (test code = 7.4 gm/dL 6.0-8.3 770) ALBUMIN (BEAKER) (test code = 1145) 4.0 g/dL 3.5-5.0 BILIRUBIN TOTAL (BEAKER) (test code 0.5 mg/dL 0.2-1.2 = 377) BILIRUBIN DIRECT (BEAKER) (test 0.2 mg/dL 0.1-0.5 code = 706) ALKALINE PHOSPHATASE (BEAKER) (test 85 U/L 40-150 code = 346) AST (SGOT) (BEAKER) (test code = 16 U/L 5-34 353) ALT (SGPT) (BEAKER) (test code = 15 U/L 6-55 347) Stitcher Hand ID Sal WAN LLACTATE DEHYDROGENASE (LDH)2022-01-29 11:02:23 Test Item Value Reference Range Interpretation Comments LACTATE DEHYDROGENASE (BEAKER) (test 165 U/L 125-220 code = 635) Stitcher Hand ID Sal WAN LPROTHROMBIN TIME/[id number] 10:50:18 Test Item Value Reference Range Interpretation Comments PROTIME (BEAKER) 22.3 seconds 11.9-14.2 H (test code = 759) INR (BEAKER) (test 1.98 See_Comment [Automat ed message] code = 370) The system g4interactive generated this result transmitted ref erence range: <=5.90. The reference range was not used to int erpret this result as normal/abnormal . RECOMMENDED COUMADIN/WARFARIN INR THERAPY RANGESSTANDARD DOSE: 2.0 - 3.0 Includes: PROPHYLAXIS for venous thrombosis, systemic embolization; TREATMENT for venous thrombosis and/or pulmonary embolus.HIGH RISK: Target INR is 2.5-3.5 for patients with mechanical heart valves.CBC W/PLT COUNT & AUTO [id number] 10:38:56 Test Item Value Reference Range Interpretation Comments WHITE BLOOD CELL COUNT (BEAKER) 6.7 K/ L 3.5-10.5 (test code = 775) RED BLOOD CELL COUNT (BEAKER) 4.43 M/ L 4.63-6.08 L (test code = 761) HEMOGLOBIN (BEAKER) (test code = 13.0 GM/DL 13.7-17.5 L 410) HEMATOCRIT (BEAKER) (test code = 40.6 % 40.1-51.0 411) MEAN CORPUSCULAR VOLUME (BEAKER) 91.6 fL 79.0-92.2 (test code = 753) MEAN CORPUSCULAR HEMOGLOBIN 29.3 pg 25.7-32.2 (BEAKER) (test code = 751) MEAN CORPUSCULAR HEMOGLOBIN CONC 32.0 GM/DL 32.3-36.5 L (BEAKER) (test code = 752) RED CELL DISTRIBUTION WIDTH 13.8 % 11.6-14.4 (BEAKER) (test code = 412) PLATELET COUNT (BEAKER) (test 247 K/CU MM 150-450 code = 756) MEAN PLATELET VOLUME (BEAKER) 9.1 fL 9.4-12.4 L (test code = 754) NUCLEATED RED BLOOD CELLS 0 /100 WBC 0-0 (BEAKER) (test code = 413) NEUTROPHILS RELATIVE PERCENT 78 % (BEAKER) (test code = 429) LYMPHOCYTES RELATIVE PERCENT 14 % (BEAKER) (test code = 430) MONOCYTES RELATIVE PERCENT 5 % (BEAKER) (test code = 431) EOSINOPHILS RELATIVE PERCENT 2 % (BEAKER) (test code = 432) BASOPHILS RELATIVE PERCENT 0 % (BEAKER) (test code = 437) NEUTROPHILS ABSOLUTE COUNT 5.23 K/ L 1.78-5.38 (BEAKER) (test code = 670) LYMPHOCYTES ABSOLUTE COUNT 0.96 K/ L 1.32-3.57 L (BEAKER) (test code = 414) MONOCYTES ABSOLUTE COUNT (BEAKER) 0.35 K/ L 0.30-0.82 (test code = 415) EOSINOPHILS ABSOLUTE COUNT 0.12 K/ L 0.04-0.54 (BEAKER) (test code = 416) BASOPHILS ABSOLUTE COUNT (BEAKER) 0.02 K/ L 0.01-0.08 (test code = 417) IMMATURE GRANULOCYTES-RELATIVE 0 % 0-1 PERCENT (BEAKER) (test code = 2801) CBC with platelet count + automated [id number] 09:34:00 Test Item Value Reference Range Interpretation Comments WBC (MANUAL) (test 6.8 10^3/mL code = 7150006) RBC (MANUAL) (test 4.41 See_Comment [Automat ed message] code = 1043026) The system w [facility] generated this result transmitted ref erence range: 10^6/L . The reference range was not used to int erpret this result as normal/abnormal . HEMOGLOBIN (MANUAL) 13.3 GM/DL (test code = 0695886) HEMATOCRIT (MANUAL) 40.2 % (test code = 5054187) MCV (MANUAL) (test 91.2 fL code = 0723132) MCH (MANUAL) (test 30.2 pg code = 0666968) MCHC (MANUAL) (test 33.1 GM/DL code = 8323707) RDW (MANUAL) (test 14.0 % code = 7740908) PLATELETS (MANUAL) 232 K/CU MM (test code = 20150120) MPV (MANUAL) (test 9.6 fL code = 20150107) NRBC (MANUAL) (test code = 2750947) NEUTROS PCT (MANUAL) 73.4 % (test code = 20150114) LYMPHS PCT (MANUAL) 16.0 % (test code = 4391838) MONOS PCT (MANUAL) 7.8 % (test code = 0364314) EOS PCT (MANUAL) 2.4 % (test code = 6433931) BASOS PCT (MANUAL) 0.4 % (test code = 2935765) NEUTROS ABS (MANUAL) 4991 K/L (test code = 5264903) LYMPHS ABS (MANUAL) 1088 K/L (test code = 5079682) MONOS ABS (MANUAL) 530 K/L (test code = 2255316) EOS ABS (MANUAL) 163 K/L (test code = 9962263) BASOS ABS (MANUAL) 27 K/L (test code = 6538180) [id number] 13:43:19 Test Item Value Reference Range Interpretation Comments % Neutros (test code = 2816) 81 % % Lymphs (test code = 2817) 17 % % Monos (test code = 2818) 1 % % Eos (test code = 2819) 1 % # Neutros (test code = 2830) 5.67 K/ul 1.78-5.38 H # Lymphs (test code = 2831) 1.19 K/ul 1.32-3.57 L # Monos (test code = 2832) 0.07 K/uL 0.30-0.82 L # Eos (test code = 2834) 0.07 K/uL 0.04-0.54 Total Counted (test code = 1351) 100 RBC Morphology (test code = 762) Normal WBC Morphology (test code = 487) Normal Platelet Morphology (test code = Normal 486) Platelet Conc (test code = 3438) Adequate Lab Interpretation (test code = Abnormal 76206-3) [facility](CELLAVISION MANUAL DIFF)2021-12-25 13:43:19 Test Item Value Reference Range Interpretation Comments NEUTROPHILS - REL 81 % (CELLAVISION)(BEAKER) (test code = 2816) LYMPHOCYTES - REL 17 % (CELLAVISION)(BEAKER) (test code = 2817) MONOCYTES - REL 1 % (CELLAVISION)(BEAKER) (test code = 2818) EOSINOPHILS - REL 1 % (CELLAVISION)(BEAKER) (test code = 2819) NEUTROPHILS - ABS 5.67 K/ul 1.78-5.38 H (CELLAVISION)(BEAKER) (test code = 2830) LYMPHOCYTES - ABS 1.19 K/ul 1.32-3.57 L (CELLAVISION)(BEAKER) (test code = 2831) MONOCYTES - ABS 0.07 K/uL 0.30-0.82 L (CELLAVISION)(BEAKER) (test code = 2832) EOSINOPHILS - ABS 0.07 K/uL 0.04-0.54 (CELLAVISION)(BEAKER) (test code = 2834) TOTAL COUNTED (BEAKER) (test code = 100 1351) RBC MORPHOLOGY (BEAKER) (test code Normal = 762) WBC MORPHOLOGY (BEAKER) (test code Normal = 487) PLT MORPHOLOGY (BEAKER) (test code Normal = 486) PLATELET CONCENTRATION Adequate (CELLAVISION)(BEAKER) (test code = 3438) [id number] 11:46:39 Test Item Value Reference Range Interpretation Comments MAGNESIUM (BEAKER) (test code = 1.9 mg/dL 1.6-2.6 627) Stitcher Hand ID - ISREAL GHEPATIC FUNCTION [id number] 11:46:39 Test Item Value Reference Range Interpretation Comments TOTAL PROTEIN (BEAKER) (test code = 6.8 gm/dL 6.0-8.3 770) ALBUMIN (BEAKER) (test code = 1145) 4.0 g/dL 3.5-5.0 BILIRUBIN TOTAL (BEAKER) (test code 0.6 mg/dL 0.2-1.2 = 377) BILIRUBIN DIRECT (BEAKER) (test 0.3 mg/dL 0.1-0.5 code = 706) ALKALINE PHOSPHATASE (BEAKER) (test 95 U/L 40-150 code = 346) AST (SGOT) (BEAKER) (test code = 13 U/L 5-34 353) ALT (SGPT) (BEAKER) (test code = 15 U/L 6-55 347) Stitcher Hand ID - ISREAL GLACTATE DEHYDROGENASE (LDH)2021-12-25 11:46:39 Test Item Value Reference Range Interpretation Comments LACTATE DEHYDROGENASE (BEAKER) (test 171 U/L 125-220 code = 635) Stitcher Hand ID - ISREAL GBASIC METABOLIC [id number] 11:46:38 Test Item Value Reference Range Interpretation Comments SODIUM (BEAKER) 138 meq/L 136-145 (test code = 381) POTASSIUM (BEAKER) 4.0 meq/L 3.5-5.1 (test code = 379) CHLORIDE (BEAKER) 107 meq/L 98-107 (test code = 382) CO2 (BEAKER) (test 22 meq/L 22-29 code = 355) BLOOD UREA NITROGEN 12 mg/dL 7-21 (BEAKER) (test code = 354) CREATININE (BEAKER) 0.91 mg/dL 0.57-1.25 (test code = 358) GLUCOSE RANDOM 107 mg/dL 70-105 H (BEAKER) (test code = 652) CALCIUM (BEAKER) 9.1 mg/dL 8.4-10.2 (test code = 697) EGFR (BEAKER) (test 88 mL/min/1.73 ESTIMA NEELA GFR IS code = 1092) sq m NOT ACCURATE CREATININE CLEARANCE IN PREDICTING GLOMERULAR FILTRATION RATE . ESTIMATED GFR I S NOT APPLICABLE FOR DIALYSIS PATIEN TS. Stitcher Hand ID - ISREAL GPROTHROMBIN TIME/[id number] 11:43:12 Test Item Value Reference Range Interpretation Comments PROTIME (BEAKER) 23.9 seconds 11.9-14.2 H (test code = 759) INR (BEAKER) (test 2.17 See_Comment [Automat ed message] code = 370) The system g4interactive generated this result transmitted ref erence range: <=5.90. The reference range was not used to int erpret this result as normal/abnormal . RECOMMENDED COUMADIN/WARFARIN INR THERAPY RANGESSTANDARD DOSE: 2.0 - 3.0 Includes: PROPHYLAXIS for venous thrombosis, systemic embolization; TREATMENT for venous thrombosis and/or pulmonary embolus.HIGH RISK: Target INR is 2.5-3.5 for patients with mechanical heart valves.CBC WITH PLATELET COUNT + MANUAL DIFF 2021-12-25 11:26:49 Test Item Value Reference Range Interpretation Comments WHITE BLOOD CELL COUNT (BEAKER) 7.0 K/ L 3.5-10.5 (test code = 775) RED BLOOD CELL COUNT (BEAKER) 3.81 M/ L 4.63-6.08 L (test code = 761) HEMOGLOBIN (BEAKER) (test code = 11.6 GM/DL 13.7-17.5 L 410) HEMATOCRIT (BEAKER) (test code = 35.8 % 40.1-51.0 L 411) MEAN CORPUSCULAR VOLUME (BEAKER) 94.0 fL 79.0-92.2 H (test code = 753) MEAN CORPUSCULAR HEMOGLOBIN 30.4 pg 25.7-32.2 (BEAKER) (test code = 751) MEAN CORPUSCULAR HEMOGLOBIN CONC 32.4 GM/DL 32.3-36.5 (BEAKER) (test code = 752) RED CELL DISTRIBUTION WIDTH 14.3 % 11.6-14.4 (BEAKER) (test code = 412) PLATELET COUNT (BEAKER) (test 173 K/CU MM 150-450 code = 756) MEAN PLATELET VOLUME (BEAKER) 8.9 fL 9.4-12.4 L (test code = 754) NUCLEATED RED BLOOD CELLS 0 /100 WBC 0-0 (BEAKER) (test code = 413) LACTATE DEHYDROGENASE (LDH)2021-11-20 09:58:56 Test Item Value Reference Range Interpretation Comments LACTATE DEHYDROGENASE (BEAKER) (test 207 U/L 125-220 code = 635) Stitcher Hand ID - BSBASIC METABOLIC [id number] 09:58:55 Test Item Value Reference Range Interpretation Comments SODIUM (BEAKER) 133 meq/L 136-145 L (test code = 381) POTASSIUM (BEAKER) 3.7 meq/L 3.5-5.1 (test code = 379) CHLORIDE (BEAKER) 100 meq/L 98-107 (test code = 382) CO2 (BEAKER) (test 25 meq/L 22-29 code = 355) BLOOD UREA NITROGEN 12 mg/dL 7-21 (BEAKER) (test code = 354) CREATININE (BEAKER) 1.02 mg/dL 0.57-1.25 (test code = 358) GLUCOSE RANDOM 120 mg/dL 70-105 H (BEAKER) (test code = 652) CALCIUM (BEAKER) 9.2 mg/dL 8.4-10.2 (test code = 697) EGFR (BEAKER) (test 77 mL/min/1.73 ESTIMA NEELA GFR IS code = 1092) sq m NOT ACCURATE CREATININE CLEARANCE IN PREDICTING GLOMERULAR FILTRATION RATE . ESTIMATED GFR I S NOT APPLICABLE FOR DIALYSIS PATIEN TS. Stitcher Hand ID - [id number] 09:58:55 Test Item Value Reference Range Interpretation Comments MAGNESIUM (BEAKER) (test code = 1.9 mg/dL 1.6-2.6 627) Stitcher Hand ID - BSHEPATIC FUNCTION [id number] 09:58:55 Test Item Value Reference Range Interpretation Comments TOTAL PROTEIN (BEAKER) (test code = 6.9 gm/dL 6.0-8.3 770) ALBUMIN (BEAKER) (test code = 1145) 3.9 g/dL 3.5-5.0 BILIRUBIN TOTAL (BEAKER) (test code 0.5 mg/dL 0.2-1.2 = 377) BILIRUBIN DIRECT (BEAKER) (test 0.2 mg/dL 0.1-0.5 code = 706) ALKALINE PHOSPHATASE (BEAKER) (test 100 U/L 40-150 code = 346) AST (SGOT) (BEAKER) (test code = 16 U/L 5-34 353) ALT (SGPT) (BEAKER) (test code = 16 U/L 6-55 347) Stitcher Hand ID - BSPROTHROMBIN TIME/[id number] 09:46:54 Test Item Value Reference Range Interpretation Comments PROTIME (BEAKER) 28.2 seconds 11.9-14.2 H (test code = 759) INR (BEAKER) (test 2.68 See_Comment [Automat ed message] code = 370) The system g4interactive generated this result transmitted ref erence range: <=5.90. The reference range was not used to int erpret this result as normal/abnormal . RECOMMENDED COUMADIN/WARFARIN INR THERAPY RANGESSTANDARD DOSE: 2.0 - 3.0 Includes: PROPHYLAXIS for venous thrombosis, systemic embolization; TREATMENT for venous thrombosis and/or pulmonary embolus.HIGH RISK: Target INR is 2.5-3.5 for patients with mechanical heart valves.CBC W/PLT COUNT & AUTO [id number] 09:35:53 Test Item Value Reference Range Interpretation Comments WHITE BLOOD CELL COUNT (BEAKER) 7.5 K/ L 3.5-10.5 (test code = 775) RED BLOOD CELL COUNT (BEAKER) 4.02 M/ L 4.63-6.08 L (test code = 761) HEMOGLOBIN (BEAKER) (test code = 12.1 GM/DL 13.7-17.5 L 410) HEMATOCRIT (BEAKER) (test code = 38.5 % 40.1-51.0 L 411) MEAN CORPUSCULAR VOLUME (BEAKER) 95.8 fL 79.0-92.2 H (test code = 753) MEAN CORPUSCULAR HEMOGLOBIN 30.1 pg 25.7-32.2 (BEAKER) (test code = 751) MEAN CORPUSCULAR HEMOGLOBIN CONC 31.4 GM/DL 32.3-36.5 L (BEAKER) (test code = 752) RED CELL DISTRIBUTION WIDTH 14.9 % 11.6-14.4 H (BEAKER) (test code = 412) PLATELET COUNT (BEAKER) (test 220 K/CU MM 150-450 code = 756) MEAN PLATELET VOLUME (BEAKER) 8.9 fL 9.4-12.4 L (test code = 754) NUCLEATED RED BLOOD CELLS 0 /100 WBC 0-0 (BEAKER) (test code = 413) NEUTROPHILS RELATIVE PERCENT 77 % (BEAKER) (test code = 429) LYMPHOCYTES RELATIVE PERCENT 13 % (BEAKER) (test code = 430) MONOCYTES RELATIVE PERCENT 7 % (BEAKER) (test code = 431) EOSINOPHILS RELATIVE PERCENT 2 % (BEAKER) (test code = 432) BASOPHILS RELATIVE PERCENT 0 % (BEAKER) (test code = 437) NEUTROPHILS ABSOLUTE COUNT 5.76 K/ L 1.78-5.38 H (BEAKER) (test code = 670) LYMPHOCYTES ABSOLUTE COUNT 0.97 K/ L 1.32-3.57 L (BEAKER) (test code = 414) MONOCYTES ABSOLUTE COUNT (BEAKER) 0.53 K/ L 0.30-0.82 (test code = 415) EOSINOPHILS ABSOLUTE COUNT 0.14 K/ L 0.04-0.54 (BEAKER) (test code = 416) BASOPHILS ABSOLUTE COUNT (BEAKER) 0.02 K/ L 0.01-0.08 (test code = 417) IMMATURE GRANULOCYTES-RELATIVE 1 % 0-1 PERCENT (BEAKER) (test code = 2801) LACTATE DEHYDROGENASE (LDH)2021-11-06 10:40:26 Test Item Value Reference Range Interpretation Comments LACTATE DEHYDROGENASE (BEAKER) (test 190 U/L 125-220 code = 635) Stitcher Hand ID - PIAYA LHEPATIC FUNCTION [id number] 10:40:25 Test Item Value Reference Range Interpretation Comments TOTAL PROTEIN (BEAKER) (test code = 7.7 gm/dL 6.0-8.3 770) ALBUMIN (BEAKER) (test code = 1145) 4.2 g/dL 3.5-5.0 BILIRUBIN TOTAL (BEAKER) (test code 0.5 mg/dL 0.2-1.2 = 377) BILIRUBIN DIRECT (BEAKER) (test 0.2 mg/dL 0.1-0.5 code = 706) ALKALINE PHOSPHATASE (BEAKER) (test 115 U/L 40-150 code = 346) AST (SGOT) (BEAKER) (test code = 13 U/L 5-34 353) ALT (SGPT) (BEAKER) (test code = 13 U/L 6-55 347) Stitcher Hand ID - PIAYA LBASIC METABOLIC [id number] 10:40:24 Test Item Value Reference Range Interpretation Comments SODIUM (BEAKER) 137 meq/L 136-145 (test code = 381) POTASSIUM (BEAKER) 4.1 meq/L 3.5-5.1 (test code = 379) CHLORIDE (BEAKER) 101 meq/L 98-107 (test code = 382) CO2 (BEAKER) (test 28 meq/L 22-29 code = 355) BLOOD UREA NITROGEN 16 mg/dL 7-21 (BEAKER) (test code = 354) CREATININE (BEAKER) 0.99 mg/dL 0.57-1.25 (test code = 358) GLUCOSE RANDOM 118 mg/dL 70-105 H (BEAKER) (test code = 652) CALCIUM (BEAKER) 9.5 mg/dL 8.4-10.2 (test code = 697) EGFR (BEAKER) (test 80 mL/min/1.73 ESTIMA NEELA GFR IS code = 1092) sq m NOT ACCURATE CREATININE CLEARANCE IN PREDICTING GLOMERULAR FILTRATION RATE . ESTIMATED GFR I S NOT APPLICABLE FOR DIALYSIS PATIEN TS. Stitcher Hand ID - SOCO [id number] 10:40:24 Test Item Value Reference Range Interpretation Comments MAGNESIUM (BEAKER) (test code = 2.1 mg/dL 1.6-2.6 627) Stitcher Hand ID - SOCO LPROTHROMBIN [id number] 10:36:41 Test Item Value Reference Range Interpretation Comments PROTIME (BEAKER) 21.2 seconds 11.9-14.2 H (test code = 759) INR (BEAKER) (test 1.86 See_Comment [Automat ed message] code = 370) The system g4interactive generated this result transmitted ref erence range: <=5.90. The reference range was not used to int erpret this result as normal/abnormal . RECOMMENDED COUMADIN/WARFARIN INR THERAPY RANGESSTANDARD DOSE: 2.0 - 3.0 Includes: PROPHYLAXIS for venous thrombosis, systemic embolization; TREATMENT for venous thrombosis and/or pulmonary embolus.HIGH RISK: Target INR is 2.5-3.5 for patients with mechanical heart valves.CBC W/PLT COUNT & AUTO [id number] 10:22:58 Test Item Value Reference Range Interpretation Comments WHITE BLOOD CELL COUNT (BEAKER) 10.0 K/ L 3.5-10.5 (test code = 775) RED BLOOD CELL COUNT (BEAKER) 3.96 M/ L 4.63-6.08 L (test code = 761) HEMOGLOBIN (BEAKER) (test code = 12.0 GM/DL 13.7-17.5 L 410) HEMATOCRIT (BEAKER) (test code = 38.8 % 40.1-51.0 L 411) MEAN CORPUSCULAR VOLUME (BEAKER) 98.0 fL 79.0-92.2 H (test code = 753) MEAN CORPUSCULAR HEMOGLOBIN 30.3 pg 25.7-32.2 (BEAKER) (test code = 751) MEAN CORPUSCULAR HEMOGLOBIN CONC 30.9 GM/DL 32.3-36.5 L (BEAKER) (test code = 752) RED CELL DISTRIBUTION WIDTH 16.0 % 11.6-14.4 H (BEAKER) (test code = 412) PLATELET COUNT (BEAKER) (test 311 K/CU MM 150-450 code = 756) MEAN PLATELET VOLUME (BEAKER) 8.9 fL 9.4-12.4 L (test code = 754) NUCLEATED RED BLOOD CELLS 0 /100 WBC 0-0 (BEAKER) (test code = 413) NEUTROPHILS RELATIVE PERCENT 81 % (BEAKER) (test code = 429) LYMPHOCYTES RELATIVE PERCENT 12 % (BEAKER) (test code = 430) MONOCYTES RELATIVE PERCENT 5 % (BEAKER) (test code = 431) EOSINOPHILS RELATIVE PERCENT 2 % (BEAKER) (test code = 432) BASOPHILS RELATIVE PERCENT 0 % (BEAKER) (test code = 437) NEUTROPHILS ABSOLUTE COUNT 8.09 K/ L 1.78-5.38 H (BEAKER) (test code = 670) LYMPHOCYTES ABSOLUTE COUNT 1.16 K/ L 1.32-3.57 L (BEAKER) (test code = 414) MONOCYTES ABSOLUTE COUNT (BEAKER) 0.51 K/ L 0.30-0.82 (test code = 415) EOSINOPHILS ABSOLUTE COUNT 0.19 K/ L 0.04-0.54 (BEAKER) (test code = 416) BASOPHILS ABSOLUTE COUNT (BEAKER) 0.03 K/ L 0.01-0.08 (test code = 417) IMMATURE GRANULOCYTES-RELATIVE 0 % 0-1 PERCENT (BEAKER) (test code = 2801) PROTHROMBIN [id number] 09:51:20 Test Item Value Reference Range Interpretation Comments PROTIME (BEAKER) 26.7 seconds 11.9-14.2 H (test code = 759) INR (BEAKER) (test 2.49 See_Comment [Automat ed message] code = 370) The system g4interactive generated this result transmitted ref erence range: <=5.90. The reference range was not used to int erpret this result as normal/abnormal . RECOMMENDED COUMADIN/WARFARIN INR THERAPY RANGESSTANDARD DOSE: 2.0 - 3.0 Includes: PROPHYLAXIS for venous thrombosis, systemic embolization; TREATMENT for venous thrombosis and/or pulmonary embolus.HIGH RISK: Target INR is 2.5-3.5 for patients with mechanical heart valves.BASIC METABOLIC [id number] 09:47:04 Test Item Value Reference Range Interpretation Comments SODIUM (BEAKER) 136 meq/L 136-145 (test code = 381) POTASSIUM (BEAKER) 3.7 meq/L 3.5-5.1 (test code = 379) CHLORIDE (BEAKER) 95 meq/L 98-107 L (test code = 382) CO2 (BEAKER) (test 30 meq/L 22-29 H code = 355) BLOOD UREA NITROGEN 15 mg/dL 7-21 (BEAKER) (test code = 354) CREATININE (BEAKER) 0.83 mg/dL 0.57-1.25 (test code = 358) GLUCOSE RANDOM 113 mg/dL 70-105 H (BEAKER) (test code = 652) CALCIUM (BEAKER) 9.7 mg/dL 8.4-10.2 (test code = 697) EGFR (BEAKER) (test 98 mL/min/1.73 ESTIMA NEELA GFR IS code = 1092) sq m NOT ACCURATE CREATININE CLEARANCE IN PREDICTING GLOMERULAR FILTRATION RATE . ESTIMATED GFR I S NOT APPLICABLE FOR DIALYSIS PATIEN TS. Stitcher Hand ID - PIAYA [id number] 09:47:04 Test Item Value Reference Range Interpretation Comments MAGNESIUM (BEAKER) (test code = 2.0 mg/dL 1.6-2.6 627) Stitcher Hand ID - PIAYA LHEPATIC FUNCTION [id number] 09:47:04 Test Item Value Reference Range Interpretation Comments TOTAL PROTEIN (BEAKER) (test code = 7.8 gm/dL 6.0-8.3 770) ALBUMIN (BEAKER) (test code = 1145) 4.2 g/dL 3.5-5.0 BILIRUBIN TOTAL (BEAKER) (test code 0.4 mg/dL 0.2-1.2 = 377) BILIRUBIN DIRECT (BEAKER) (test 0.2 mg/dL 0.1-0.5 code = 706) ALKALINE PHOSPHATASE (BEAKER) (test 131 U/L 40-150 code = 346) AST (SGOT) (BEAKER) (test code = 14 U/L 5-34 353) ALT (SGPT) (BEAKER) (test code = 13 U/L 6-55 347) Stitcher Hand ID - SOCO LLACTATE DEHYDROGENASE (LDH)2021-10-30 09:47:04 Test Item Value Reference Range Interpretation Comments LACTATE DEHYDROGENASE (BEAKER) (test 224 U/L 125-220 H code = 635) Stitcher Hand ID - SOCO LCBC W/PLT COUNT & AUTO [id number] 09:32:39 Test Item Value Reference Range Interpretation Comments WHITE BLOOD CELL COUNT (BEAKER) 10.8 K/ L 3.5-10.5 H (test code = 775) RED BLOOD CELL COUNT (BEAKER) 4.00 M/ L 4.63-6.08 L (test code = 761) HEMOGLOBIN (BEAKER) (test code = 11.9 GM/DL 13.7-17.5 L 410) HEMATOCRIT (BEAKER) (test code = 40.4 % 40.1-51.0 411) MEAN CORPUSCULAR VOLUME (BEAKER) 101.0 fL 79.0-92.2 H (test code = 753) MEAN CORPUSCULAR HEMOGLOBIN 29.8 pg 25.7-32.2 (BEAKER) (test code = 751) MEAN CORPUSCULAR HEMOGLOBIN CONC 29.5 GM/DL 32.3-36.5 L (BEAKER) (test code = 752) RED CELL DISTRIBUTION WIDTH 16.4 % 11.6-14.4 H (BEAKER) (test code = 412) PLATELET COUNT (BEAKER) (test 294 K/CU MM 150-450 code = 756) MEAN PLATELET VOLUME (BEAKER) 8.5 fL 9.4-12.4 L (test code = 754) NUCLEATED RED BLOOD CELLS 0 /100 WBC 0-0 (BEAKER) (test code = 413) NEUTROPHILS RELATIVE PERCENT 82 % (BEAKER) (test code = 429) LYMPHOCYTES RELATIVE PERCENT 10 % (BEAKER) (test code = 430) MONOCYTES RELATIVE PERCENT 6 % (BEAKER) (test code = 431) EOSINOPHILS RELATIVE PERCENT 2 % (BEAKER) (test code = 432) BASOPHILS RELATIVE PERCENT 0 % (BEAKER) (test code = 437) NEUTROPHILS ABSOLUTE COUNT 8.85 K/ L 1.78-5.38 H (BEAKER) (test code = 670) LYMPHOCYTES ABSOLUTE COUNT 1.08 K/ L 1.32-3.57 L (BEAKER) (test code = 414) MONOCYTES ABSOLUTE COUNT (BEAKER) 0.59 K/ L 0.30-0.82 (test code = 415) EOSINOPHILS ABSOLUTE COUNT 0.19 K/ L 0.04-0.54 (BEAKER) (test code = 416) BASOPHILS ABSOLUTE COUNT (BEAKER) 0.04 K/ L 0.01-0.08 (test code = 417) IMMATURE GRANULOCYTES-RELATIVE 1 % 0-1 PERCENT (BEAKER) (test code = 2801) CBC WITH PLATELET COUNT + MANUAL [id number] 11:57:54 Test Item Value Reference Range Interpretation Comments WHITE BLOOD CELL COUNT (BEAKER) 9.5 K/ L 3.5-10.5 (test code = 775) RED BLOOD CELL COUNT (BEAKER) 3.45 M/ L 4.63-6.08 L (test code = 761) HEMOGLOBIN (BEAKER) (test code = 10.6 GM/DL 13.7-17.5 L 410) HEMATOCRIT (BEAKER) (test code = 34.5 % 40.1-51.0 L 411) MEAN CORPUSCULAR VOLUME (BEAKER) 100.0 fL 79.0-92.2 H (test code = 753) MEAN CORPUSCULAR HEMOGLOBIN 30.7 pg 25.7-32.2 (BEAKER) (test code = 751) MEAN CORPUSCULAR HEMOGLOBIN CONC 30.7 GM/DL 32.3-36.5 L (BEAKER) (test code = 752) RED CELL DISTRIBUTION WIDTH 17.7 % 11.6-14.4 H (BEAKER) (test code = 412) PLATELET COUNT (BEAKER) (test 273 K/CU MM 150-450 code = 756) MEAN PLATELET VOLUME (BEAKER) 9.0 fL 9.4-12.4 L (test code = 754) NUCLEATED RED BLOOD CELLS 0 /100 WBC 0-0 (BEAKER) (test code = 413) (CELLAVISION MANUAL DIFF)2021-10-23 11:57:54 Test Item Value Reference Range Interpretation Comments NEUTROPHILS - REL 86 % (CELLAVISION)(BEAKER) (test code = 2816) LYMPHOCYTES - REL 7 % (CELLAVISION)(BEAKER) (test code = 2817) MONOCYTES - REL 5 % (CELLAVISION)(BEAKER) (test code = 2818) BASOPHILS - REL 1 % (CELLAVISION)(BEAKER) (test code = 2820) ATYPICAL LYMPHOCYTES - REL 1 % 0-0 H (CELLAVISION)(BEAKER) (test code = 2829) NEUTROPHILS - ABS 8.17 K/ul 1.78-5.38 H (CELLAVISION)(BEAKER) (test code = 2830) LYMPHOCYTES - ABS 0.67 K/ul 1.32-3.57 L (CELLAVISION)(BEAKER) (test code = 2831) MONOCYTES - ABS 0.48 K/uL 0.30-0.82 (CELLAVISION)(BEAKER) (test code = 2832) BASOPHILS - ABS 0.10 K/uL 0.01-0.08 H (CELLAVISION)(BEAKER) (test code = 2835) ATYPICAL LYMPHOCYTES - ABS 0.10 K/uL 0.00-0.00 H (CELLAVISION)(BEAKER) (test code = 2858) TOTAL COUNTED (BEAKER) (test code 100 = 1351) WBC MORPHOLOGY (BEAKER) (test Normal code = 487) GIANT PLATELETS (BEAKER) (test Present code = 313) POLYCHROMATOPHILLIC RBCS(BEAKER) 2+ moderate (test code = 478) ARTIFACT (CELLAVISION)(BEAKER) Present (test code = 3432) PLATELET CONCENTRATION Adequate (CELLAVISION)(BEAKER) (test code = 3438) Stitcher Hand ID - Delicia Jones comments: Slide comments:BASIC METABOLIC [id number] 09:58:33 Test Item Value Reference Range Interpretation Comments SODIUM (BEAKER) 136 meq/L 136-145 (test code = 381) POTASSIUM (BEAKER) 3.3 meq/L 3.5-5.1 L (test code = 379) CHLORIDE (BEAKER) 99 meq/L 98-107 (test code = 382) CO2 (BEAKER) (test 27 meq/L 22-29 code = 355) BLOOD UREA NITROGEN 16 mg/dL 7-21 (BEAKER) (test code = 354) CREATININE (BEAKER) 0.93 mg/dL 0.57-1.25 (test code = 358) GLUCOSE RANDOM 108 mg/dL 70-105 H (BEAKER) (test code = 652) CALCIUM (BEAKER) 9.8 mg/dL 8.4-10.2 (test code = 697) EGFR (BEAKER) (test 86 mL/min/1.73 ESTIMA NEELA GFR IS code = 1092) sq m NOT ACCURATE CREATININE CLEARANCE IN PREDICTING GLOMERULAR FILTRATION RATE . ESTIMATED GFR I S NOT APPLICABLE FOR DIALYSIS PATIEN TS. Stitcher Hand ID - [id number] 09:58:33 Test Item Value Reference Range Interpretation Comments MAGNESIUM (BEAKER) (test code = 2.0 mg/dL 1.6-2.6 627) Stitcher Hand ID - BSHEPATIC FUNCTION [id number] 09:58:33 Test Item Value Reference Range Interpretation Comments TOTAL PROTEIN (BEAKER) (test code = 7.8 gm/dL 6.0-8.3 770) ALBUMIN (BEAKER) (test code = 1145) 4.2 g/dL 3.5-5.0 BILIRUBIN TOTAL (BEAKER) (test code 0.7 mg/dL 0.2-1.2 = 377) BILIRUBIN DIRECT (BEAKER) (test 0.3 mg/dL 0.1-0.5 code = 706) ALKALINE PHOSPHATASE (BEAKER) (test 130 U/L 40-150 code = 346) AST (SGOT) (BEAKER) (test code = 13 U/L 5-34 353) ALT (SGPT) (BEAKER) (test code = 13 U/L 6-55 347) Stitcher Hand ID - BSLACTATE DEHYDROGENASE (LDH)2021-10-23 09:58:33 Test Item Value Reference Range Interpretation Comments LACTATE DEHYDROGENASE (BEAKER) (test 202 U/L 125-220 code = 635) Stitcher Hand ID - BSPROTHROMBIN TIME/[id number] 09:51:52 Test Item Value Reference Range Interpretation Comments PROTIME (BEAKER) 25.1 seconds 11.9-14.2 H (test code = 759) INR (BEAKER) (test 2.31 See_Comment [Automat ed message] code = 370) The system g4interactive generated this result transmitted ref erence range: <=5.90. The reference range was not used to int erpret this result as normal/abnormal . RECOMMENDED COUMADIN/WARFARIN INR THERAPY RANGESSTANDARD DOSE: 2.0 - 3.0 Includes: PROPHYLAXIS for venous thrombosis, systemic embolization; TREATMENT for venous thrombosis and/or pulmonary embolus.HIGH RISK: Target INR is 2.5-3.5 for patients with mechanical heart valves.Blood gas, [id number] 10:26:18 Test Item Value Reference Range Interpretation Comments pH, Brice (test code = 7.27 7.32-7.42 L 2746-6) pCO2, Brice (test code = 67 See_Comment H [Aut omated message] 755) The system g4interactive generated this result transmit neela reference range : 41 - 51 mm Hg. The reference range was not used to interpret this result as normal/abnormal . pO2, Brice (test code = 56 See_Comment H [Auto mated message] 0535-2) The system g4interactive generated this result transmit neela reference range : 25 - 40 mm Hg. The reference range was not used to interpret this result as normal/abnormal . O2 Sat, Brice (test code 83.7 % 40.0-70.0 H = 2711-0) HCO3, Brice (test code = 30 mmol/L 21-29 H 35045-2) Base Excess, Brice (test 2.1 mmol/L -2.0-3.0 code = 1927-3) Patient Temperature 37.0 (test code = 8310-5) FIO2 (test code = 1819) 21 Lab Interpretation Abnormal (test code = 11167-4) [id number]:26:18 Test Item Value Reference Range Interpretation Comments PH VENOUS (BEAKER) (test code = 7.27 7.32-7.42 L 701) PCO2 VENOUS (BEAKER) (test code = 67 mm Hg 41-51 H 755) PO2 VENOUS (BEAKER) (test code = 56 mm Hg 25-40 H 702) O2 SATURATION VENOUS (BEAKER) 83.7 % 40.0-70.0 H (test code = 703) HCO3 VENOUS (BEAKER) (test code = 30 mmol/L 21-29 H 705) BASE EXCESS VENOUS (BEAKER) (test 2.1 mmol/L -2.0-3.0 code = 704) PATIENT TEMPERATURE (BEAKER) (test 37.0 code = 1818) FIO2 (BEAKER) (test code = 1819) 21.0 LACTATE DEHYDROGENASE (LDH)2021-10-13 05:09:08 Test Item Value Reference Range Interpretation Comments LACTATE DEHYDROGENASE (BEAKER) (test 333 U/L 125-220 H code = 635) Stitcher Hand ID - [id number] 05:09:07 Test Item Value Reference Range Interpretation Comments PHOSPHORUS (BEAKER) (test code = 3.7 mg/dL 2.3-4.7 604) Stitcher Hand ID - [id number] 05:09:06 Test Item Value Reference Range Interpretation Comments MAGNESIUM (BEAKER) (test code = 1.8 mg/dL 1.6-2.6 627) Stitcher Hand ID - DBCOMPREHENSIVE METABOLIC [id number] 05:09:05 Test Item Value Reference Range Interpretation Comments TOTAL PROTEIN 7.1 gm/dL 6.0-8.3 (BEAKER) (test code = 770) ALBUMIN (BEAKER) 3.9 g/dL 3.5-5.0 (test code = 1145) ALKALINE PHOSPHATASE 131 U/L 40-150 (BEAKER) (test code = 346) BILIRUBIN TOTAL 0.7 mg/dL 0.2-1.2 (BEAKER) (test code = 377) SODIUM (BEAKER) (test 136 meq/L 136-145 code = 381) POTASSIUM (BEAKER) 3.6 meq/L 3.5-5.1 (test code = 379) CHLORIDE (BEAKER) 98 meq/L 98-107 (test code = 382) CO2 (BEAKER) (test 28 meq/L 22-29 code = 355) BLOOD UREA NITROGEN 10 mg/dL 7-21 (BEAKER) (test code = 354) CREATININE (BEAKER) 0.80 mg/dL 0.57-1.25 (test code = 358) GLUCOSE RANDOM 98 mg/dL 70-105 (BEAKER) (test code = 652) CALCIUM (BEAKER) 9.3 mg/dL 8.4-10.2 (test code = 697) AST (SGOT) (BEAKER) 16 U/L 5-34 (test code = 353) ALT (SGPT) (BEAKER) 10 U/L 6-55 (test code = 347) EGFR (BEAKER) (test 102 ESTIMATE D GFR IS code = 1092) mL/min/1.73 sq NOT ACCURA TE m CREATININE CLEARANCE IN PREDICTING GLOMERULAR FILTRATION RATE . ESTIMATED GFR I S NOT APPLICABLE FOR DIALYSIS PATIEN TS. Stitcher Hand ID - DBPROTHROMBIN TIME/[id number] 04:51:00 Test Item Value Reference Range Interpretation Comments PROTIME (BEAKER) 28.7 seconds 11.9-14.2 H (test code = 759) INR (BEAKER) (test 2.73 See_Comment [Automat ed message] code = 370) The system g4interactive generated this result transmitted ref erence range: <=5.90. The reference range was not used to int erpret this result as normal/abnormal . RECOMMENDED COUMADIN/WARFARIN INR THERAPY RANGESSTANDARD DOSE: 2.0 - 3.0 Includes: PROPHYLAXIS for venous thrombosis, systemic embolization; TREATMENT for venous thrombosis and/or pulmonary embolus.HIGH RISK: Target INR is 2.5-3.5 for patients with mechanical heart valves.CBC W/PLT COUNT & AUTO [id number] 04:37:59 Test Item Value Reference Range Interpretation Comments WHITE BLOOD CELL COUNT (BEAKER) 7.5 K/ L 3.5-10.5 (test code = 775) RED BLOOD CELL COUNT (BEAKER) 3.20 M/ L 4.63-6.08 L (test code = 761) HEMOGLOBIN (BEAKER) (test code = 9.7 GM/DL 13.7-17.5 L 410) HEMATOCRIT (BEAKER) (test code = 32.4 % 40.1-51.0 L 411) MEAN CORPUSCULAR VOLUME (BEAKER) 101.3 fL 79.0-92.2 H (test code = 753) MEAN CORPUSCULAR HEMOGLOBIN 30.3 pg 25.7-32.2 (BEAKER) (test code = 751) MEAN CORPUSCULAR HEMOGLOBIN CONC 29.9 GM/DL 32.3-36.5 L (BEAKER) (test code = 752) RED CELL DISTRIBUTION WIDTH 18.2 % 11.6-14.4 H (BEAKER) (test code = 412) PLATELET COUNT (BEAKER) (test 238 K/CU MM 150-450 code = 756) MEAN PLATELET VOLUME (BEAKER) 9.5 fL 9.4-12.4 (test code = 754) NUCLEATED RED BLOOD CELLS 0 /100 WBC 0-0 (BEAKER) (test code = 413) NEUTROPHILS RELATIVE PERCENT 76 % (BEAKER) (test code = 429) LYMPHOCYTES RELATIVE PERCENT 15 % (BEAKER) (test code = 430) MONOCYTES RELATIVE PERCENT 5 % (BEAKER) (test code = 431) EOSINOPHILS RELATIVE PERCENT 3 % (BEAKER) (test code = 432) BASOPHILS RELATIVE PERCENT 0 % (BEAKER) (test code = 437) NEUTROPHILS ABSOLUTE COUNT 5.68 K/ L 1.78-5.38 H (BEAKER) (test code = 670) LYMPHOCYTES ABSOLUTE COUNT 1.15 K/ L 1.32-3.57 L (BEAKER) (test code = 414) MONOCYTES ABSOLUTE COUNT (BEAKER) 0.38 K/ L 0.30-0.82 (test code = 415) EOSINOPHILS ABSOLUTE COUNT 0.23 K/ L 0.04-0.54 (BEAKER) (test code = 416) BASOPHILS ABSOLUTE COUNT (BEAKER) 0.02 K/ L 0.01-0.08 (test code = 417) IMMATURE GRANULOCYTES-RELATIVE 0 % 0-1 PERCENT (BEAKER) (test code = 2801) Oxygen saturation, [id number] 04:36:28 Test Item Value Reference Range Interpretation Comments O2 Saturation (Measured) (test code = 36.1 % 15538-8) [facility], [id number] 04:36:28 Test Item Value Reference Range Interpretation Comments O2 SATURATION (MEASURED) (BEAKER) 36.1 % (test code = 1455) SARS-COV2/RT-PCR ([facility])2021-10-12 15:04:01 Test Item Value Reference Range Interpretation Comments SARS-COV2/RT-PCR (test Negative Not Detected, Negative, code = 6816200) See external report for linked test SARS-COV-2 PERFORMING LAB [facility] (test code = 9194067) Negative result for this test determines that SARS-CoV-2 RNA was not present in the specimen above the Limit of Detection (LOD). However, Negative results do not preclude SARS-CoV-2 infection and should not be used as the sole basis for treatment or patient management decisions. Negative results must be combined with clinical observations, patient history, and epidemiological information. A false negative result may occur if a specimen is improperly collected, transported or handled. A false negative result should be considered if patient's recent exposures or clinical presentation indicate that COVID-19 (SARS-CoV-2) is likely and diagnostic tests for other causes of illness are negative. Re-testing should be considered in cases of suspected false negatives.The limit of detection for this assay is 800 copies/mL.This SARS CoV-2 test is a real-time RT-PCR test intended for the qualitative detection of nucleic acid from SARS-CoV-2 in a nasopharyngeal swab specimen collected from individuals suspected of COVID-19 by their healthcare provider.This test has not been Food and Drug Administration (FDA) cleared or approved. This is a modified version of an approved Emergency Use Authorization (EUA) and is in the process of review by the FDA. Once authorized by the FDA, the issued EUA will be effective until the declaration that circumstances exist justifying the authorization of the emergency use ofin vitro diagnostic tests for detection and/or diagnosis of COVID-19 is terminated under Section 564(b)(2) of the Act or the EUA is revoked under Section 564(g) of the Act.Fact Sheet for Healthcare Prov iders:https://www.[employer]/sites/default/files/product/documents/Fact_Sheet_HC _Lditnvpev_Abmr_HVQL-AoK-5.pdfFact Sheet for Healthcare Patients:https://www.[employer]/sites/default/files/product/docume nts/Hawb_Xtkzf_Kdyydcip_Lzfd_OBVG-JzL-9.pdfPerforming Laboratory:[facility], [place] [address]AIIXNEY DEHYDROGENASE (LDH)2021-10-12 05:43:18 Test Item Value Reference Range Interpretation Comments LACTATE DEHYDROGENASE (BEAKER) (test 268 U/L 125-220 H code = 635) Stitcher Hand ID - [id number] 05:43:17 Test Item Value Reference Range Interpretation Comments PHOSPHORUS (BEAKER) (test code = 4.1 mg/dL 2.3-4.7 604) Stitcher Hand ID - [id number] 05:43:16 Test Item Value Reference Range Interpretation Comments MAGNESIUM (BEAKER) (test code = 1.9 mg/dL 1.6-2.6 627) Stitcher Hand ID - DBCOMPREHENSIVE METABOLIC [id number] 05:43:15 Test Item Value Reference Range Interpretation Comments TOTAL PROTEIN 6.8 gm/dL 6.0-8.3 (BEAKER) (test code = 770) ALBUMIN (BEAKER) 3.8 g/dL 3.5-5.0 (test code = 1145) ALKALINE PHOSPHATASE 127 U/L 40-150 (BEAKER) (test code = 346) BILIRUBIN TOTAL 0.6 mg/dL 0.2-1.2 (BEAKER) (test code = 377) SODIUM (BEAKER) (test 136 meq/L 136-145 code = 381) POTASSIUM (BEAKER) 3.2 meq/L 3.5-5.1 L (test code = 379) CHLORIDE (BEAKER) 98 meq/L 98-107 (test code = 382) CO2 (BEAKER) (test 27 meq/L 22-29 code = 355) BLOOD UREA NITROGEN 9 mg/dL 7-21 (BEAKER) (test code = 354) CREATININE (BEAKER) 0.77 mg/dL 0.57-1.25 (test code = 358) GLUCOSE RANDOM 94 mg/dL 70-105 (BEAKER) (test code = 652) CALCIUM (BEAKER) 9.0 mg/dL 8.4-10.2 (test code = 697) AST (SGOT) (BEAKER) 16 U/L 5-34 (test code = 353) ALT (SGPT) (BEAKER) 10 U/L 6-55 (test code = 347) EGFR (BEAKER) (test 107 ESTIMATE D GFR IS code = 1092) mL/min/1.73 sq NOT ACCURA TE m CREATININE CLEARANCE IN PREDICTING GLOMERULAR FILTRATION RATE . ESTIMATED GFR I S NOT APPLICABLE FOR DIALYSIS PATIEN TS. Stitcher Hand ID - DBPROTHROMBIN TIME/[id number] 05:35:08 Test Item Value Reference Range Interpretation Comments PROTIME (BEAKER) 28.5 seconds 11.9-14.2 H (test code = 759) INR (BEAKER) (test 2.71 See_Comment [Automat ed message] code = 370) The system g4interactive generated this result transmitted ref erence range: <=5.90. The reference range was not used to int erpret this result as normal/abnormal . RECOMMENDED COUMADIN/WARFARIN INR THERAPY RANGESSTANDARD DOSE: 2.0 - 3.0 Includes: PROPHYLAXIS for venous thrombosis, systemic embolization; TREATMENT for venous thrombosis and/or pulmonary embolus.HIGH RISK: Target INR is 2.5-3.5 for patients with mechanical heart valves.OXYGEN SATURATION, [id number] 05:10:17 Test Item Value Reference Range Interpretation Comments O2 SATURATION (MEASURED) (BEAKER) 68.3 % (test code = 1455) CBC W/PLT COUNT & AUTO [id number] 05:01:36 Test Item Value Reference Range Interpretation Comments WHITE BLOOD CELL COUNT (BEAKER) 6.9 K/ L 3.5-10.5 (test code = 775) RED BLOOD CELL COUNT (BEAKER) 2.91 M/ L 4.63-6.08 L (test code = 761) HEMOGLOBIN (BEAKER) (test code = 9.0 GM/DL 13.7-17.5 L 410) HEMATOCRIT (BEAKER) (test code = 28.7 % 40.1-51.0 L 411) MEAN CORPUSCULAR VOLUME (BEAKER) 98.6 fL 79.0-92.2 H (test code = 753) MEAN CORPUSCULAR HEMOGLOBIN 30.9 pg 25.7-32.2 (BEAKER) (test code = 751) MEAN CORPUSCULAR HEMOGLOBIN CONC 31.4 GM/DL 32.3-36.5 L (BEAKER) (test code = 752) RED CELL DISTRIBUTION WIDTH 18.0 % 11.6-14.4 H (BEAKER) (test code = 412) PLATELET COUNT (BEAKER) (test 212 K/CU MM 150-450 code = 756) MEAN PLATELET VOLUME (BEAKER) 9.2 fL 9.4-12.4 L (test code = 754) NUCLEATED RED BLOOD CELLS 0 /100 WBC 0-0 (BEAKER) (test code = 413) NEUTROPHILS RELATIVE PERCENT 76 % (BEAKER) (test code = 429) LYMPHOCYTES RELATIVE PERCENT 14 % (BEAKER) (test code = 430) MONOCYTES RELATIVE PERCENT 6 % (BEAKER) (test code = 431) EOSINOPHILS RELATIVE PERCENT 3 % (BEAKER) (test code = 432) BASOPHILS RELATIVE PERCENT 0 % (BEAKER) (test code = 437) NEUTROPHILS ABSOLUTE COUNT 5.24 K/ L 1.78-5.38 (BEAKER) (test code = 670) LYMPHOCYTES ABSOLUTE COUNT 0.99 K/ L 1.32-3.57 L (BEAKER) (test code = 414) MONOCYTES ABSOLUTE COUNT (BEAKER) 0.38 K/ L 0.30-0.82 (test code = 415) EOSINOPHILS ABSOLUTE COUNT 0.22 K/ L 0.04-0.54 (BEAKER) (test code = 416) BASOPHILS ABSOLUTE COUNT (BEAKER) 0.02 K/ L 0.01-0.08 (test code = 417) IMMATURE GRANULOCYTES-RELATIVE 0 % 0-1 PERCENT (BEAKER) (test code = 2801) COMPREHENSIVE METABOLIC [id number] 20:30:18 Test Item Value Reference Range Interpretation Comments TOTAL PROTEIN 7.3 gm/dL 6.0-8.3 (BEAKER) (test code = 770) ALBUMIN (BEAKER) 4.1 g/dL 3.5-5.0 (test code = 1145) ALKALINE PHOSPHATASE 146 U/L 40-150 (BEAKER) (test code = 346) BILIRUBIN TOTAL 0.6 mg/dL 0.2-1.2 (BEAKER) (test code = 377) SODIUM (BEAKER) (test 133 meq/L 136-145 L code = 381) POTASSIUM (BEAKER) 3.5 meq/L 3.5-5.1 (test code = 379) CHLORIDE (BEAKER) 95 meq/L 98-107 L (test code = 382) CO2 (BEAKER) (test 27 meq/L 22-29 code = 355) BLOOD UREA NITROGEN 9 mg/dL 7-21 (BEAKER) (test code = 354) CREATININE (BEAKER) 0.88 mg/dL 0.57-1.25 (test code = 358) GLUCOSE RANDOM 98 mg/dL 70-105 (BEAKER) (test code = 652) CALCIUM (BEAKER) 9.3 mg/dL 8.4-10.2 (test code = 697) AST (SGOT) (BEAKER) 15 U/L 5-34 (test code = 353) ALT (SGPT) (BEAKER) 14 U/L 6-55 (test code = 347) EGFR (BEAKER) (test 92 mL/min/1.73 ESTIMA NEELA GFR IS code = 1092) sq m NOT ACCURATE CREATININE CLEARANCE IN PREDICTING GLOMERULAR FILTRATION RATE . ESTIMATED GFR I S NOT APPLICABLE FOR DIALYSIS PATIEN TS. Stitcher Hand ID - SO MOXYGEN SATURATION, [id number] 20:04:16 Test Item Value Reference Range Interpretation Comments O2 SATURATION (MEASURED) (BEAKER) 89.0 % (test code = 1455) RAD, CHEST, 1 VIEW, NON [id number] 07:54:00Reason for exam:->s/p LVADShould this be performed at the bedside?->Yes [facility]ST : 1970 Sex: MFINAL REPORT EXAM: Chest one view CLINICAL HISTORY: October 07, 2021 CLINICAL HISTORY: Heart failure next FINDINGS: The cardiac support hardware and lines are unchanged in position. The cardiac size is enlarged. There is interval improvement in cardiomegaly. There is no evidence of pulmonary consolidation, pleural effusion, or pneumothorax. The regional osseous structures are unchanged. Signed: Rivas Tangeport Verified Date/Time: 10/11/2021 07:54:53 Reading Location: [address] Consult Reading Room LACTATE DEHYDROGENASE (LDH)2021-10-11 07:16:53 Test Item Value Reference Range Interpretation Comments LACTATE DEHYDROGENASE (BEAKER) (test 229 U/L 125-220 H code = 635) Stitcher Hand ID - SO [id number] 07:16:52 Test Item Value Reference Range Interpretation Comments PHOSPHORUS (BEAKER) (test code = 3.8 mg/dL 2.3-4.7 604) Stitcher Hand ID - SO [id number] 07:16:51 Test Item Value Reference Range Interpretation Comments MAGNESIUM (BEAKER) (test code = 1.7 mg/dL 1.6-2.6 627) Stitcher Hand ID - SO MCOMPREHENSIVE METABOLIC [id number] 07:16:50 Test Item Value Reference Range Interpretation Comments TOTAL PROTEIN 6.9 gm/dL 6.0-8.3 (BEAKER) (test code = 770) ALBUMIN (BEAKER) 3.8 g/dL 3.5-5.0 (test code = 1145) ALKALINE PHOSPHATASE 131 U/L 40-150 (BEAKER) (test code = 346) BILIRUBIN TOTAL 0.6 mg/dL 0.2-1.2 (BEAKER) (test code = 377) SODIUM (BEAKER) (test 136 meq/L 136-145 code = 381) POTASSIUM (BEAKER) 3.1 meq/L 3.5-5.1 L (test code = 379) CHLORIDE (BEAKER) 97 meq/L 98-107 L (test code = 382) CO2 (BEAKER) (test 28 meq/L 22-29 code = 355) BLOOD UREA NITROGEN 8 mg/dL 7-21 (BEAKER) (test code = 354) CREATININE (BEAKER) 0.80 mg/dL 0.57-1.25 (test code = 358) GLUCOSE RANDOM 124 mg/dL 70-105 H (BEAKER) (test code = 652) CALCIUM (BEAKER) 9.2 mg/dL 8.4-10.2 (test code = 697) AST (SGOT) (BEAKER) 13 U/L 5-34 (test code = 353) ALT (SGPT) (BEAKER) 12 U/L 6-55 (test code = 347) EGFR (BEAKER) (test 102 ESTIMATE D GFR IS code = 1092) mL/min/1.73 sq NOT ACCURA TE m CREATININE CLEARANCE IN PREDICTING GLOMERULAR FILTRATION RATE . ESTIMATED GFR I S NOT APPLICABLE FOR DIALYSIS PATIEN TS. Stitcher Hand ID - SO MPROTHROMBIN TIME/[id number] 06:59:43 Test Item Value Reference Range Interpretation Comments PROTIME (BEAKER) 27.9 seconds 11.9-14.2 H (test code = 759) INR (BEAKER) (test 2.64 See_Comment [Automat ed message] code = 370) The system g4interactive generated this result transmitted ref erence range: <=5.90. The reference range was not used to int erpret this result as normal/abnormal . RECOMMENDED COUMADIN/WARFARIN INR THERAPY RANGESSTANDARD DOSE: 2.0 - 3.0 Includes: PROPHYLAXIS for venous thrombosis, systemic embolization; TREATMENT for venous thrombosis and/or pulmonary embolus.HIGH RISK: Target INR is 2.5-3.5 for patients with mechanical heart valves.CBC W/PLT COUNT & AUTO [id number] 06:49:00 Test Item Value Reference Range Interpretation Comments WHITE BLOOD CELL COUNT (BEAKER) 7.6 K/ L 3.5-10.5 (test code = 775) RED BLOOD CELL COUNT (BEAKER) 2.96 M/ L 4.63-6.08 L (test code = 761) HEMOGLOBIN (BEAKER) (test code = 9.2 GM/DL 13.7-17.5 L 410) HEMATOCRIT (BEAKER) (test code = 29.7 % 40.1-51.0 L 411) MEAN CORPUSCULAR VOLUME (BEAKER) 100.3 fL 79.0-92.2 H (test code = 753) MEAN CORPUSCULAR HEMOGLOBIN 31.1 pg 25.7-32.2 (BEAKER) (test code = 751) MEAN CORPUSCULAR HEMOGLOBIN CONC 31.0 GM/DL 32.3-36.5 L (BEAKER) (test code = 752) RED CELL DISTRIBUTION WIDTH 18.4 % 11.6-14.4 H (BEAKER) (test code = 412) PLATELET COUNT (BEAKER) (test 206 K/CU MM 150-450 code = 756) MEAN PLATELET VOLUME (BEAKER) 9.2 fL 9.4-12.4 L (test code = 754) NUCLEATED RED BLOOD CELLS 0 /100 WBC 0-0 (BEAKER) (test code = 413) NEUTROPHILS RELATIVE PERCENT 77 % (BEAKER) (test code = 429) LYMPHOCYTES RELATIVE PERCENT 14 % (BEAKER) (test code = 430) MONOCYTES RELATIVE PERCENT 5 % (BEAKER) (test code = 431) EOSINOPHILS RELATIVE PERCENT 3 % (BEAKER) (test code = 432) BASOPHILS RELATIVE PERCENT 0 % (BEAKER) (test code = 437) NEUTROPHILS ABSOLUTE COUNT 5.85 K/ L 1.78-5.38 H (BEAKER) (test code = 670) LYMPHOCYTES ABSOLUTE COUNT 1.04 K/ L 1.32-3.57 L (BEAKER) (test code = 414) MONOCYTES ABSOLUTE COUNT (BEAKER) 0.41 K/ L 0.30-0.82 (test code = 415) EOSINOPHILS ABSOLUTE COUNT 0.21 K/ L 0.04-0.54 (BEAKER) (test code = 416) BASOPHILS ABSOLUTE COUNT (BEAKER) 0.03 K/ L 0.01-0.08 (test code = 417) IMMATURE GRANULOCYTES-RELATIVE 1 % 0-1 PERCENT (BEAKER) (test code = 2801) Calcium, [id number] 06:47:38 Test Item Value Reference Range Interpretation Comments Calcium, Ion (test code = 1993-) 1.09 mmol/L 1.12-1.27 L pH, Blood (test code = 51679-4) 7.38 Lab Interpretation (test code = Abnormal 54563-3) [facility] [id number] 06:47:38 Test Item Value Reference Range Interpretation Comments CALCIUM IONIZED (BEAKER) (test 1.09 mmol/L 1.12-1.27 L code = 698) PH, BLOOD (BEAKER) (test code = 7.38 1810) OXYGEN SATURATION, [id number] 06:46:42 Test Item Value Reference Range Interpretation Comments O2 SATURATION (MEASURED) (BEAKER) 71.7 % (test code = 1455) Wacnlxwgimye4321-07-06 17:33:26 Test Item Value Reference Range Interpretation Comments Sodium (test code = 2951-2) 133 meq/L 136-145 L Potassium (test code = 3.5 meq/L 3.5-5.1 2823-3) Chloride (test code = 95 meq/L 98-107 L 2075-0) CO2 (test code = 2027-9) 28 meq/L 22-29 SCOTT (test code = SCOTT) Stitcher Hand ID - DB Lab Interpretation (test Abnormal code = 98668-4) [facility] HospitalZl[id number] 17:33:26 Test Item Value Reference Range Interpretation Comments SODIUM (BEAKER) (test code = 381) 133 meq/L 136-145 L POTASSIUM (BEAKER) (test code = 3.5 meq/L 3.5-5.1 379) CHLORIDE (BEAKER) (test code = 382) 95 meq/L 98-107 L CO2 (BEAKER) (test code = 355) 28 meq/L 22-29 Stitcher Hand ID - DBLACTATE DEHYDROGENASE (LDH)2021-10-10 06:29:59 Test Item Value Reference Range Interpretation Comments LACTATE DEHYDROGENASE (BEAKER) (test 252 U/L 125-220 H code = 635) Stitcher Hand ID - PIAYA [id number] 06:29:58 Test Item Value Reference Range Interpretation Comments PHOSPHORUS (BEAKER) (test code = 3.8 mg/dL 2.3-4.7 604) Stitcher Hand ID - PIAYA [id number] 06:29:57 Test Item Value Reference Range Interpretation Comments MAGNESIUM (BEAKER) (test code = 1.7 mg/dL 1.6-2.6 627) Stitcher Hand ID - PIAYA LCOMPREHENSIVE METABOLIC [id number] 06:29:56 Test Item Value Reference Range Interpretation Comments TOTAL PROTEIN 6.8 gm/dL 6.0-8.3 (BEAKER) (test code = 770) ALBUMIN (BEAKER) 3.8 g/dL 3.5-5.0 (test code = 1145) ALKALINE PHOSPHATASE 136 U/L 40-150 (BEAKER) (test code = 346) BILIRUBIN TOTAL 0.6 mg/dL 0.2-1.2 (BEAKER) (test code = 377) SODIUM (BEAKER) (test 136 meq/L 136-145 code = 381) POTASSIUM (BEAKER) 3.0 meq/L 3.5-5.1 L (test code = 379) CHLORIDE (BEAKER) 98 meq/L 98-107 (test code = 382) CO2 (BEAKER) (test 27 meq/L 22-29 code = 355) BLOOD UREA NITROGEN 11 mg/dL 7-21 (BEAKER) (test code = 354) CREATININE (BEAKER) 0.81 mg/dL 0.57-1.25 (test code = 358) GLUCOSE RANDOM 97 mg/dL 70-105 (BEAKER) (test code = 652) CALCIUM (BEAKER) 8.8 mg/dL 8.4-10.2 (test code = 697) AST (SGOT) (BEAKER) 13 U/L 5-34 (test code = 353) ALT (SGPT) (BEAKER) 10 U/L 6-55 (test code = 347) EGFR (BEAKER) (test 101 ESTIMATE D GFR IS code = 1092) mL/min/1.73 sq NOT ACCURA TE m CREATININE CLEARANCE IN PREDICTING GLOMERULAR FILTRATION RATE . ESTIMATED GFR I S NOT APPLICABLE FOR DIALYSIS PATIEN TS. Stitcher Hand ID - PIAYA LPROTHROMBIN TIME/[id number] 05:53:10 Test Item Value Reference Range Interpretation Comments PROTIME (BEAKER) 26.0 seconds 11.9-14.2 H (test code = 759) INR (BEAKER) (test 2.41 See_Comment [Automat ed message] code = 370) The system g4interactive generated this result transmitted ref erence range: <=5.90. The reference range was not used to int erpret this result as normal/abnormal . RECOMMENDED COUMADIN/WARFARIN INR THERAPY RANGESSTANDARD DOSE: 2.0 - 3.0 Includes: PROPHYLAXIS for venous thrombosis, systemic embolization; TREATMENT for venous thrombosis and/or pulmonary embolus.HIGH RISK: Target INR is 2.5-3.5 for patients with mechanical heart valves.OXYGEN SATURATION, [id number] 05:39:23 Test Item Value Reference Range Interpretation Comments O2 SATURATION (MEASURED) (BEAKER) 92.6 % (test code = 1455) CBC W/PLT COUNT & AUTO [id number] 05:39:05 Test Item Value Reference Range Interpretation Comments WHITE BLOOD CELL COUNT (BEAKER) 7.3 K/ L 3.5-10.5 (test code = 775) RED BLOOD CELL COUNT (BEAKER) 2.97 M/ L 4.63-6.08 L (test code = 761) HEMOGLOBIN (BEAKER) (test code = 9.1 GM/DL 13.7-17.5 L 410) HEMATOCRIT (BEAKER) (test code = 29.6 % 40.1-51.0 L 411) MEAN CORPUSCULAR VOLUME (BEAKER) 99.7 fL 79.0-92.2 H (test code = 753) MEAN CORPUSCULAR HEMOGLOBIN 30.6 pg 25.7-32.2 (BEAKER) (test code = 751) MEAN CORPUSCULAR HEMOGLOBIN CONC 30.7 GM/DL 32.3-36.5 L (BEAKER) (test code = 752) RED CELL DISTRIBUTION WIDTH 18.4 % 11.6-14.4 H (BEAKER) (test code = 412) PLATELET COUNT (BEAKER) (test 186 K/CU MM 150-450 code = 756) MEAN PLATELET VOLUME (BEAKER) 9.1 fL 9.4-12.4 L (test code = 754) NUCLEATED RED BLOOD CELLS 0 /100 WBC 0-0 (BEAKER) (test code = 413) NEUTROPHILS RELATIVE PERCENT 78 % (BEAKER) (test code = 429) LYMPHOCYTES RELATIVE PERCENT 12 % (BEAKER) (test code = 430) MONOCYTES RELATIVE PERCENT 6 % (BEAKER) (test code = 431) EOSINOPHILS RELATIVE PERCENT 3 % (BEAKER) (test code = 432) BASOPHILS RELATIVE PERCENT 0 % (BEAKER) (test code = 437) NEUTROPHILS ABSOLUTE COUNT 5.67 K/ L 1.78-5.38 H (BEAKER) (test code = 670) LYMPHOCYTES ABSOLUTE COUNT 0.88 K/ L 1.32-3.57 L (BEAKER) (test code = 414) MONOCYTES ABSOLUTE COUNT (BEAKER) 0.42 K/ L 0.30-0.82 (test code = 415) EOSINOPHILS ABSOLUTE COUNT 0.23 K/ L 0.04-0.54 (BEAKER) (test code = 416) BASOPHILS ABSOLUTE COUNT (BEAKER) 0.02 K/ L 0.01-0.08 (test code = 417) IMMATURE GRANULOCYTES-RELATIVE 1 % 0-1 PERCENT (BEAKER) (test code = 2801) Vitamin B12 and [id number] 05:19:05 Test Item Value Reference Range Interpretation Comments Vitamin B12 (test 299 pg/mL 213-816 code = 2132-9) Folate (test code = 6.20 ng/mL See_Comment L [Automa neela 2284-8) message] The system which generated this result transmit neela reference range : >=7.00. The reference range was not used to interpret this result as normal/abnormal . SCOTT (test code = SCOTT) Stitcher Hand ID - FAUZIA W Lab Interpretation Abnormal (test code = 78338-4) [facility]VITAMIN B12 AND [id number] 05:19:05 Test Item Value Reference Range Interpretation Comments VITAMIN B12 (BEAKER) 299 pg/mL 213-816 (test code = 774) FOLATE (BEAKER) 6.20 ng/mL See_Comment L [Automated message] (test code = 362) The system which generated this result transmitted ref erence range: >=7.00. The reference range was not used to interpr et this result as normal/abnormal . Stitcher Hand ID - FAUZIA [id number] 05:19:03 Test Item Value Reference Range Interpretation Comments Ferritin (test code = 114.53 ng/mL 5.00-275.00 2276-4) SCOTT (test code = SCOTT) Stitcher Hand ID Sal CAGE W Lab Interpretation (test Normal code = 71385-9) [facility] 05:19:03 Test Item Value Reference Range Interpretation Comments FERRITIN (BEAKER) (test code = 114.53 ng/mL 5.00-275.00 361) Stitcher Hand ID - FAUZIA WLACTATE DEHYDROGENASE (LDH)2021-10-09 03:58:10 Test Item Value Reference Range Interpretation Comments LACTATE DEHYDROGENASE (BEAKER) (test 219 U/L 125-220 code = 635) Stitcher Hand ID - SOCO [id number] 03:58:09 Test Item Value Reference Range Interpretation Comments PHOSPHORUS (BEAKER) (test code = 3.9 mg/dL 2.3-4.7 604) Stitcher Hand ID - SOCO [id number] 03:58:08 Test Item Value Reference Range Interpretation Comments MAGNESIUM (BEAKER) (test code = 1.9 mg/dL 1.6-2.6 627) Stitcher Hand ID Sal WAN LCOMPREHENSIVE METABOLIC [id number] 03:58:07 Test Item Value Reference Range Interpretation Comments TOTAL PROTEIN 6.6 gm/dL 6.0-8.3 (BEAKER) (test code = 770) ALBUMIN (BEAKER) 3.7 g/dL 3.5-5.0 (test code = 1145) ALKALINE PHOSPHATASE 136 U/L 40-150 (BEAKER) (test code = 346) BILIRUBIN TOTAL 0.6 mg/dL 0.2-1.2 (BEAKER) (test code = 377) SODIUM (BEAKER) (test 134 meq/L 136-145 L code = 381) POTASSIUM (BEAKER) 4.0 meq/L 3.5-5.1 (test code = 379) CHLORIDE (BEAKER) 98 meq/L 98-107 (test code = 382) CO2 (BEAKER) (test 25 meq/L 22-29 code = 355) BLOOD UREA NITROGEN 10 mg/dL 7-21 (BEAKER) (test code = 354) CREATININE (BEAKER) 0.80 mg/dL 0.57-1.25 (test code = 358) GLUCOSE RANDOM 88 mg/dL 70-105 (BEAKER) (test code = 652) CALCIUM (BEAKER) 9.1 mg/dL 8.4-10.2 (test code = 697) AST (SGOT) (BEAKER) 15 U/L 5-34 (test code = 353) ALT (SGPT) (BEAKER) 11 U/L 6-55 (test code = 347) EGFR (BEAKER) (test 102 ESTIMATE D GFR IS code = 1092) mL/min/1.73 sq NOT ACCURA TE m CREATININE CLEARANCE IN PREDICTING GLOMERULAR FILTRATION RATE . ESTIMATED GFR I S NOT APPLICABLE FOR DIALYSIS PATIEN TS. Stitcher Hand ID - SOCO Bal, TIBC, % sat. (without ferritin)2021-10-09 03:53:21 Test Item Value Reference Range Interpretation Comments Iron (test code = 2498-4) 50.0 ug/dL 40.0-160.0 TIBC (test code = 2500-7) 310 ug/dL 250-450 Iron % Saturation (test 16 % 20-55 L code = 2502-3) SCOTT (test code = SCOTT) Stitcher Hand ID - SOCO L Lab Interpretation (test Abnormal code = 51601-8) [facility], % SAT. (WITHOUT FERRITIN)2021-10-09 03:53:21 Test Item Value Reference Range Interpretation Comments IRON (BEAKER) (test code = 547) 50.0 ug/dL 40.0-160.0 TOTAL IRON BINDING CAPACITY 310 ug/dL 250-450 (BEAKER) (test code = 769) IRON % SATURATION (2) (BEAKER) 16 % 20-55 L (test code = 2590) Stitcher Hand ID - SOCO LPROTHROMBIN TIME/[id number] 03:49:16 Test Item Value Reference Range Interpretation Comments PROTIME (BEAKER) 26.3 seconds 11.9-14.2 H (test code = 759) INR (BEAKER) (test 2.45 See_Comment [Automat ed message] code = 370) The system g4interactive generated this result transmitted ref erence range: <=5.90. The reference range was not used to int erpret this result as normal/abnormal . RECOMMENDED COUMADIN/WARFARIN INR THERAPY RANGESSTANDARD DOSE: 2.0 - 3.0 Includes: PROPHYLAXIS for venous thrombosis, systemic embolization; TREATMENT for venous thrombosis and/or pulmonary embolus.HIGH RISK: Target INR is 2.5-3.5 for patients with mechanical heart valves.OXYGEN SATURATION, [id number] 03:38:56 Test Item Value Reference Range Interpretation Comments O2 SATURATION (MEASURED) (BEAKER) 75.6 % (test code = 1455) CBC W/PLT COUNT & AUTO [id number] 03:30:33 Test Item Value Reference Range Interpretation Comments WHITE BLOOD CELL COUNT (BEAKER) 8.0 K/ L 3.5-10.5 (test code = 775) RED BLOOD CELL COUNT (BEAKER) 2.88 M/ L 4.63-6.08 L (test code = 761) HEMOGLOBIN (BEAKER) (test code = 8.8 GM/DL 13.7-17.5 L 410) HEMATOCRIT (BEAKER) (test code = 28.1 % 40.1-51.0 L 411) MEAN CORPUSCULAR VOLUME (BEAKER) 97.6 fL 79.0-92.2 H (test code = 753) MEAN CORPUSCULAR HEMOGLOBIN 30.6 pg 25.7-32.2 (BEAKER) (test code = 751) MEAN CORPUSCULAR HEMOGLOBIN CONC 31.3 GM/DL 32.3-36.5 L (BEAKER) (test code = 752) RED CELL DISTRIBUTION WIDTH 18.0 % 11.6-14.4 H (BEAKER) (test code = 412) PLATELET COUNT (BEAKER) (test 181 K/CU MM 150-450 code = 756) MEAN PLATELET VOLUME (BEAKER) 9.2 fL 9.4-12.4 L (test code = 754) NUCLEATED RED BLOOD CELLS 0 /100 WBC 0-0 (BEAKER) (test code = 413) NEUTROPHILS RELATIVE PERCENT 76 % (BEAKER) (test code = 429) LYMPHOCYTES RELATIVE PERCENT 14 % (BEAKER) (test code = 430) MONOCYTES RELATIVE PERCENT 6 % (BEAKER) (test code = 431) EOSINOPHILS RELATIVE PERCENT 3 % (BEAKER) (test code = 432) BASOPHILS RELATIVE PERCENT 0 % (BEAKER) (test code = 437) NEUTROPHILS ABSOLUTE COUNT 6.10 K/ L 1.78-5.38 H (BEAKER) (test code = 670) LYMPHOCYTES ABSOLUTE COUNT 1.13 K/ L 1.32-3.57 L (BEAKER) (test code = 414) MONOCYTES ABSOLUTE COUNT (BEAKER) 0.44 K/ L 0.30-0.82 (test code = 415) EOSINOPHILS ABSOLUTE COUNT 0.26 K/ L 0.04-0.54 (BEAKER) (test code = 416) BASOPHILS ABSOLUTE COUNT (BEAKER) 0.02 K/ L 0.01-0.08 (test code = 417) IMMATURE GRANULOCYTES-RELATIVE 1 % 0-1 PERCENT (BEAKER) (test code = 2801) OXYGEN SATURATION, [id number] 17:48:57 Test Item Value Reference Range Interpretation Comments O2 SATURATION (MEASURED) (BEAKER) 59.7 % (test code = 1455) LACTATE DEHYDROGENASE (LDH)2021-10-08 05:19:37 Test Item Value Reference Range Interpretation Comments LACTATE DEHYDROGENASE (BEAKER) (test 232 U/L 125-220 H code = 635) Stitcher Hand ID - PIAYA [id number] 05:19:36 Test Item Value Reference Range Interpretation Comments PHOSPHORUS (BEAKER) (test code = 3.8 mg/dL 2.3-4.7 604) Stitcher Hand ID - SOCO [id number] 05:19:35 Test Item Value Reference Range Interpretation Comments MAGNESIUM (BEAKER) (test code = 2.0 mg/dL 1.6-2.6 627) Stitcher Hand ID - SOCO LCOMPREHENSIVE METABOLIC [id number] 05:19:34 Test Item Value Reference Range Interpretation Comments TOTAL PROTEIN 6.9 gm/dL 6.0-8.3 (BEAKER) (test code = 770) ALBUMIN (BEAKER) 3.8 g/dL 3.5-5.0 (test code = 1145) ALKALINE PHOSPHATASE 151 U/L 40-150 H (BEAKER) (test code = 346) BILIRUBIN TOTAL 0.7 mg/dL 0.2-1.2 (BEAKER) (test code = 377) SODIUM (BEAKER) (test 137 meq/L 136-145 code = 381) POTASSIUM (BEAKER) 4.4 meq/L 3.5-5.1 (test code = 379) CHLORIDE (BEAKER) 98 meq/L 98-107 (test code = 382) CO2 (BEAKER) (test 31 meq/L 22-29 H code = 355) BLOOD UREA NITROGEN 10 mg/dL 7-21 (BEAKER) (test code = 354) CREATININE (BEAKER) 0.85 mg/dL 0.57-1.25 (test code = 358) GLUCOSE RANDOM 95 mg/dL 70-105 (BEAKER) (test code = 652) CALCIUM (BEAKER) 9.5 mg/dL 8.4-10.2 (test code = 697) AST (SGOT) (BEAKER) 13 U/L 5-34 (test code = 353) ALT (SGPT) (BEAKER) 13 U/L 6-55 (test code = 347) EGFR (BEAKER) (test 95 mL/min/1.73 ESTIMA NEELA GFR IS code = 1092) sq m NOT ACCURATE CREATININE CLEARANCE IN PREDICTING GLOMERULAR FILTRATION RATE . ESTIMATED GFR I S NOT APPLICABLE FOR DIALYSIS PATIEN TS. Stitcher Hand ID - SOCO LCALCIUM, [id number] 05:06:31 Test Item Value Reference Range Interpretation Comments CALCIUM IONIZED (BEAKER) (test 1.16 mmol/L 1.12-1.27 code = 698) PH, BLOOD (BEAKER) (test code = 7.32 1810) OXYGEN SATURATION, [id number] 05:03:10 Test Item Value Reference Range Interpretation Comments O2 SATURATION (MEASURED) (BEAKER) 36.2 % (test code = 1455) PROTHROMBIN TIME/[id number] 04:54:21 Test Item Value Reference Range Interpretation Comments PROTIME (BEAKER) 25.1 seconds 11.9-14.2 H (test code = 759) INR (BEAKER) (test 2.31 See_Comment [Automat ed message] code = 370) The system g4interactive generated this result transmitted ref erence range: <=5.90. The reference range was not used to int erpret this result as normal/abnormal . RECOMMENDED COUMADIN/WARFARIN INR THERAPY RANGESSTANDARD DOSE: 2.0 - 3.0 Includes: PROPHYLAXIS for venous thrombosis, systemic embolization; TREATMENT for venous thrombosis and/or pulmonary embolus.HIGH RISK: Target INR is 2.5-3.5 for patients with mechanical heart valves.CBC W/PLT COUNT & AUTO [id number] 04:42:36 Test Item Value Reference Range Interpretation Comments WHITE BLOOD CELL COUNT (BEAKER) 7.9 K/ L 3.5-10.5 (test code = 775) RED BLOOD CELL COUNT (BEAKER) 3.13 M/ L 4.63-6.08 L (test code = 761) HEMOGLOBIN (BEAKER) (test code = 9.7 GM/DL 13.7-17.5 L 410) HEMATOCRIT (BEAKER) (test code = 31.6 % 40.1-51.0 L 411) MEAN CORPUSCULAR VOLUME (BEAKER) 101.0 fL 79.0-92.2 H (test code = 753) MEAN CORPUSCULAR HEMOGLOBIN 31.0 pg 25.7-32.2 (BEAKER) (test code = 751) MEAN CORPUSCULAR HEMOGLOBIN CONC 30.7 GM/DL 32.3-36.5 L (BEAKER) (test code = 752) RED CELL DISTRIBUTION WIDTH 18.5 % 11.6-14.4 H (BEAKER) (test code = 412) PLATELET COUNT (BEAKER) (test 167 K/CU MM 150-450 code = 756) MEAN PLATELET VOLUME (BEAKER) 9.3 fL 9.4-12.4 L (test code = 754) NUCLEATED RED BLOOD CELLS 0 /100 WBC 0-0 (BEAKER) (test code = 413) NEUTROPHILS RELATIVE PERCENT 77 % (BEAKER) (test code = 429) LYMPHOCYTES RELATIVE PERCENT 13 % (BEAKER) (test code = 430) MONOCYTES RELATIVE PERCENT 6 % (BEAKER) (test code = 431) EOSINOPHILS RELATIVE PERCENT 3 % (BEAKER) (test code = 432) BASOPHILS RELATIVE PERCENT 0 % (BEAKER) (test code = 437) NEUTROPHILS ABSOLUTE COUNT 6.08 K/ L 1.78-5.38 H (BEAKER) (test code = 670) LYMPHOCYTES ABSOLUTE COUNT 1.03 K/ L 1.32-3.57 L (BEAKER) (test code = 414) MONOCYTES ABSOLUTE COUNT (BEAKER) 0.46 K/ L 0.30-0.82 (test code = 415) EOSINOPHILS ABSOLUTE COUNT 0.27 K/ L 0.04-0.54 (BEAKER) (test code = 416) BASOPHILS ABSOLUTE COUNT (BEAKER) 0.03 K/ L 0.01-0.08 (test code = 417) IMMATURE GRANULOCYTES-RELATIVE 1 % 0-1 PERCENT (BEAKER) (test code = 2801) [id number] 09:28:24 Test Item Value Reference Range Interpretation Comments PHOSPHORUS (BEAKER) (test code = 4.0 mg/dL 2.3-4.7 604) Stitcher Hand ID - SO [id number] 09:28:23 Test Item Value Reference Range Interpretation Comments MAGNESIUM (BEAKER) (test code = 1.6 mg/dL 1.6-2.6 627) Stitcher Hand ID - SO MCOMPREHENSIVE METABOLIC [id number] 09:28:22 Test Item Value Reference Range Interpretation Comments TOTAL PROTEIN 7.0 gm/dL 6.0-8.3 (BEAKER) (test code = 770) ALBUMIN (BEAKER) 3.9 g/dL 3.5-5.0 (test code = 1145) ALKALINE PHOSPHATASE 155 U/L 40-150 H (BEAKER) (test code = 346) BILIRUBIN TOTAL 0.7 mg/dL 0.2-1.2 (BEAKER) (test code = 377) SODIUM (BEAKER) (test 132 meq/L 136-145 L code = 381) POTASSIUM (BEAKER) 3.8 meq/L 3.5-5.1 (test code = 379) CHLORIDE (BEAKER) 97 meq/L 98-107 L (test code = 382) CO2 (BEAKER) (test 25 meq/L 22-29 code = 355) BLOOD UREA NITROGEN 10 mg/dL 7-21 (BEAKER) (test code = 354) CREATININE (BEAKER) 0.81 mg/dL 0.57-1.25 (test code = 358) GLUCOSE RANDOM 107 mg/dL 70-105 H (BEAKER) (test code = 652) CALCIUM (BEAKER) 9.8 mg/dL 8.4-10.2 (test code = 697) AST (SGOT) (BEAKER) 16 U/L 5-34 (test code = 353) ALT (SGPT) (BEAKER) 14 U/L 6-55 (test code = 347) EGFR (BEAKER) (test 101 ESTIMATE D GFR IS code = 1092) mL/min/1.73 sq NOT ACCURA TE m CREATININE CLEARANCE IN PREDICTING GLOMERULAR FILTRATION RATE . ESTIMATED GFR I S NOT APPLICABLE FOR DIALYSIS PATIEN TS. Stitcher Hand ID - SO MLACTATE DEHYDROGENASE (LDH)2021-10-07 09:28:21 Test Item Value Reference Range Interpretation Comments LACTATE DEHYDROGENASE (BEAKER) (test 256 U/L 125-220 H code = 635) Stitcher Hand ID - SO MPROTHROMBIN TIME/[id number] 09:18:26 Test Item Value Reference Range Interpretation Comments PROTIME (BEAKER) 23.3 seconds 11.9-14.2 H (test code = 759) INR (BEAKER) (test 2.10 See_Comment [Automat ed message] code = 370) The system g4interactive generated this result transmitted ref erence range: <=5.90. The reference range was not used to int erpret this result as normal/abnormal . RECOMMENDED COUMADIN/WARFARIN INR THERAPY RANGESSTANDARD DOSE: 2.0 - 3.0 Includes: PROPHYLAXIS for venous thrombosis, systemic embolization; TREATMENT for venous thrombosis and/or pulmonary embolus.HIGH RISK: Target INR is 2.5-3.5 for patients with mechanical heart valves.CBC W/PLT COUNT & AUTO [id number] 09:16:03 Test Item Value Reference Range Interpretation Comments WHITE BLOOD CELL COUNT (BEAKER) 8.7 K/ L 3.5-10.5 (test code = 775) RED BLOOD CELL COUNT (BEAKER) 2.93 M/ L 4.63-6.08 L (test code = 761) HEMOGLOBIN (BEAKER) (test code = 8.9 GM/DL 13.7-17.5 L 410) HEMATOCRIT (BEAKER) (test code = 28.7 % 40.1-51.0 L 411) MEAN CORPUSCULAR VOLUME (BEAKER) 98.0 fL 79.0-92.2 H (test code = 753) MEAN CORPUSCULAR HEMOGLOBIN 30.4 pg 25.7-32.2 (BEAKER) (test code = 751) MEAN CORPUSCULAR HEMOGLOBIN CONC 31.0 GM/DL 32.3-36.5 L (BEAKER) (test code = 752) RED CELL DISTRIBUTION WIDTH 18.3 % 11.6-14.4 H (BEAKER) (test code = 412) PLATELET COUNT (BEAKER) (test 167 K/CU MM 150-450 code = 756) MEAN PLATELET VOLUME (BEAKER) 8.9 fL 9.4-12.4 L (test code = 754) NUCLEATED RED BLOOD CELLS 0 /100 WBC 0-0 (BEAKER) (test code = 413) NEUTROPHILS RELATIVE PERCENT 81 % (BEAKER) (test code = 429) LYMPHOCYTES RELATIVE PERCENT 9 % (BEAKER) (test code = 430) MONOCYTES RELATIVE PERCENT 6 % (BEAKER) (test code = 431) EOSINOPHILS RELATIVE PERCENT 4 % (BEAKER) (test code = 432) BASOPHILS RELATIVE PERCENT 0 % (BEAKER) (test code = 437) NEUTROPHILS ABSOLUTE COUNT 7.02 K/ L 1.78-5.38 H (BEAKER) (test code = 670) LYMPHOCYTES ABSOLUTE COUNT 0.78 K/ L 1.32-3.57 L (BEAKER) (test code = 414) MONOCYTES ABSOLUTE COUNT (BEAKER) 0.49 K/ L 0.30-0.82 (test code = 415) EOSINOPHILS ABSOLUTE COUNT 0.31 K/ L 0.04-0.54 (BEAKER) (test code = 416) BASOPHILS ABSOLUTE COUNT (BEAKER) 0.03 K/ L 0.01-0.08 (test code = 417) IMMATURE GRANULOCYTES-RELATIVE 1 % 0-1 PERCENT (BEAKER) (test code = 2801) OXYGEN SATURATION, [id number] 09:10:03 Test Item Value Reference Range Interpretation Comments O2 SATURATION (MEASURED) (BEAKER) 98.2 % (test code = 1455) PROTHROMBIN TIME/[id number] 06:20:43 Test Item Value Reference Range Interpretation Comments PROTIME (BEAKER) 23.4 seconds 11.9-14.2 H (test code = 759) INR (BEAKER) (test 2.11 See_Comment [Automat ed message] code = 370) The system g4interactive generated this result transmitted ref erence range: <=5.90. The reference range was not used to int erpret this result as normal/abnormal . RECOMMENDED COUMADIN/WARFARIN INR THERAPY RANGESSTANDARD DOSE: 2.0 - 3.0 Includes: PROPHYLAXIS for venous thrombosis, systemic embolization; TREATMENT for venous thrombosis and/or pulmonary embolus.HIGH RISK: Target INR is 2.5-3.5 for patients with mechanical heart valves.RAD, CHEST, 1 VIEW, NON [id number] 04:50:00Reason for exam:->s/p LVADShould this be performed at the bedside?->YesHEALTHBR[facility] : 1970 Sex: MFINAL REPORT CLINICAL INDICATION: Status post LVAD Comparison: 10/04/2021 A single view of the chest is submitted. The examination is limited by patient body habitus, low lung volumes andlordotic positioning. The cardiomediastinal contours are stable. The patient has undergone previous LVAD and left subclavian ICD placement. Central pulmonary vascular prominence and bilateral parenchymal and pleural opacities are unchanged. There is no pneumothorax. A right PICC line remains in place.Signed: Braeden Sylvester MDReport Verified Date/Time: 10/07/2021 04:50:55 [id number] 14:52:08 Test Item Value Reference Range Interpretation Comments PHOSPHORUS (BEAKER) (test code = 3.7 mg/dL 2.3-4.7 604) CALCIUM, [id number] 12:05:41 Test Item Value Reference Range Interpretation Comments CALCIUM IONIZED (BEAKER) (test 1.11 mmol/L 1.12-1.27 L code = 698) PH, BLOOD (BEAKER) (test code = 7.34 1810) LACTATE DEHYDROGENASE (LDH)2021-10-06 07:31:33 Test Item Value Reference Range Interpretation Comments LACTATE DEHYDROGENASE 291 U/L 125-220 H Specim en slightly (BEAKER) (test code = hemoly zed 635) Stitcher Hand ID - SOCO [id number] 07:28:21 Test Item Value Reference Range Interpretation Comments PHOSPHORUS (BEAKER) 3.5 mg/dL 2.3-4.7 Specimen slightly (test code = 604) hemolyzed Stitcher Hand ID - PINISHANT [id number] 07:28:20 Test Item Value Reference Range Interpretation Comments MAGNESIUM (BEAKER) 1.7 mg/dL 1.6-2.6 Specimen slightly (test code = 627) hemolyzed Stitcher Hand ID - PINISHANT [id number] 06:47:24 Test Item Value Reference Range Interpretation Comments PARTIAL THROMBOPLASTIN TIME 66.6 seconds 22.5-36.0 H (BEAKER) (test code = 760) PROTHROMBIN TIME/[id number] 06:46:07 Test Item Value Reference Range Interpretation Comments PROTIME (BEAKER) 23.3 seconds 11.9-14.2 H (test code = 759) INR (BEAKER) (test 2.09 See_Comment [Automat ed message] code = 370) The system g4interactive generated this result transmitted ref erence range: <=5.90. The reference range was not used to int erpret this result as normal/abnormal . RECOMMENDED COUMADIN/WARFARIN INR THERAPY RANGESSTANDARD DOSE: 2.0 - 3.0 Includes: PROPHYLAXIS for venous thrombosis, systemic embolization; TREATMENT for venous thrombosis and/or pulmonary embolus.HIGH RISK: Target INR is 2.5-3.5 for patients with mechanical heart valves.Lactic Acid, [id number] 06:21:51 Test Item Value Reference Range Interpretation Comments Lactate, Art (test 1.0 mmol/L 0.5-2.2 Specimen code = 2874) markedly hemolyzed SCOTT (test code = SCOTT) Stitcher Hand ID - SO M Lab Interpretation Normal (test code = 76418-5) [facility], [id number] 06:21:51 Test Item Value Reference Range Interpretation Comments LACTATE BLOOD 1.0 mmol/L 0.5-2.2 Specimen marke dly ARTERIAL (2) (BEAKER) hemoly zed (test code = 2874) Stitcher Hand ID - SO MOXYGEN SATURATION, [id number] 06:16:05 Test Item Value Reference Range Interpretation Comments O2 SATURATION (MEASURED) (BEAKER) 95.2 % (test code = 1455) CBC W/PLT COUNT & AUTO [id number] 06:13:50 Test Item Value Reference Range Interpretation Comments WHITE BLOOD CELL COUNT (BEAKER) 7.2 K/ L 3.5-10.5 (test code = 775) RED BLOOD CELL COUNT (BEAKER) 2.72 M/ L 4.63-6.08 L (test code = 761) HEMOGLOBIN (BEAKER) (test code = 8.3 GM/DL 13.7-17.5 L 410) HEMATOCRIT (BEAKER) (test code = 27.8 % 40.1-51.0 L 411) MEAN CORPUSCULAR VOLUME (BEAKER) 102.2 fL 79.0-92.2 H (test code = 753) MEAN CORPUSCULAR HEMOGLOBIN 30.5 pg 25.7-32.2 (BEAKER) (test code = 751) MEAN CORPUSCULAR HEMOGLOBIN CONC 29.9 GM/DL 32.3-36.5 L (BEAKER) (test code = 752) RED CELL DISTRIBUTION WIDTH 18.7 % 11.6-14.4 H (BEAKER) (test code = 412) PLATELET COUNT (BEAKER) (test 168 K/CU MM 150-450 code = 756) MEAN PLATELET VOLUME (BEAKER) 9.9 fL 9.4-12.4 (test code = 754) NUCLEATED RED BLOOD CELLS 0 /100 WBC 0-0 (BEAKER) (test code = 413) NEUTROPHILS RELATIVE PERCENT 73 % (BEAKER) (test code = 429) LYMPHOCYTES RELATIVE PERCENT 17 % (BEAKER) (test code = 430) MONOCYTES RELATIVE PERCENT 6 % (BEAKER) (test code = 431) EOSINOPHILS RELATIVE PERCENT 4 % (BEAKER) (test code = 432) BASOPHILS RELATIVE PERCENT 0 % (BEAKER) (test code = 437) NEUTROPHILS ABSOLUTE COUNT 5.22 K/ L 1.78-5.38 (BEAKER) (test code = 670) LYMPHOCYTES ABSOLUTE COUNT 1.19 K/ L 1.32-3.57 L (BEAKER) (test code = 414) MONOCYTES ABSOLUTE COUNT (BEAKER) 0.43 K/ L 0.30-0.82 (test code = 415) EOSINOPHILS ABSOLUTE COUNT 0.26 K/ L 0.04-0.54 (BEAKER) (test code = 416) BASOPHILS ABSOLUTE COUNT (BEAKER) 0.02 K/ L 0.01-0.08 (test code = 417) IMMATURE GRANULOCYTES-RELATIVE 1 % 0-1 PERCENT (BEAKER) (test code = 2801) [id number] 00:35:54 Test Item Value Reference Range Interpretation Comments PARTIAL THROMBOPLASTIN TIME 65.8 seconds 22.5-36.0 H (BEAKER) (test code = 760) CALCIUM, [id number] 00:06:51 Test Item Value Reference Range Interpretation Comments CALCIUM IONIZED (BEAKER) (test 1.12 mmol/L 1.12-1.27 code = 698) PH, BLOOD (BEAKER) (test code = 7.42 1810) Prepare Leuko-Red [id number] 23:54:00 Test Item Value Reference Range Interpretation Comments CROSSMATCH (test code = 2264) COMPATIBLE Unit ABO (test code = A Pos [id number]) UNIT NUMBER (test code = [id number] 934-0) Status (test code = 9875143) TX_TIMEINCHART Blood Bank Product (test code RED BLOOD CELLS = 2263) PRODUCT CODE (test code = Q5575Q01 933-2) [facility] 18:27:28 Test Item Value Reference Range Interpretation Comments PARTIAL THROMBOPLASTIN TIME 58.7 seconds 22.5-36.0 H (BEAKER) (test code = 760) CALCIUM, [id number] 18:17:58 Test Item Value Reference Range Interpretation Comments CALCIUM IONIZED (BEAKER) (test 1.09 mmol/L 1.12-1.27 L code = 698) PH, BLOOD (BEAKER) (test code = 7.38 1810) OXYGEN SATURATION, [id number] 18:16:23 Test Item Value Reference Range Interpretation Comments O2 SATURATION (MEASURED) (BEAKER) 87.0 % (test code = 1455) [id number] 14:17:13 Test Item Value Reference Range Interpretation Comments PHOSPHORUS (BEAKER) (test code = 4.2 mg/dL 2.3-4.7 604) Stitcher Hand ID - PIAYA LBASIC METABOLIC [id number] 14:17:12 Test Item Value Reference Range Interpretation Comments SODIUM (BEAKER) 136 meq/L 136-145 (test code = 381) POTASSIUM (BEAKER) 4.2 meq/L 3.5-5.1 (test code = 379) CHLORIDE (BEAKER) 98 meq/L 98-107 (test code = 382) CO2 (BEAKER) (test 29 meq/L 22-29 code = 355) BLOOD UREA NITROGEN 10 mg/dL 7-21 (BEAKER) (test code = 354) CREATININE (BEAKER) 0.84 mg/dL 0.57-1.25 (test code = 358) GLUCOSE RANDOM 105 mg/dL 70-105 (BEAKER) (test code = 652) CALCIUM (BEAKER) 8.9 mg/dL 8.4-10.2 (test code = 697) EGFR (BEAKER) (test 97 mL/min/1.73 ESTIMA NEELA GFR IS code = 1092) sq m NOT ACCURATE CREATININE CLEARANCE IN PREDICTING GLOMERULAR FILTRATION RATE . ESTIMATED GFR I S NOT APPLICABLE FOR DIALYSIS PATIEN TS. Stitcher Hand ID - PIAYA LCALCIUM, [id number] 13:57:43 Test Item Value Reference Range Interpretation Comments CALCIUM IONIZED (BEAKER) (test 1.12 mmol/L 1.12-1.27 code = 698) PH, BLOOD (BEAKER) (test code = 7.36 1810) SARS-COV2/RT-PCR ([facility])2021-10-05 12:42:35 Test Item Value Reference Range Interpretation Comments SARS-COV2/RT-PCR Negative Negative The SARS-Co V-2 target (test code = nucleic acids a re not [id number]) detected in thi s specimen. Negative result s do not preclude SARS-C oV-2 infection and s hould not be used as the ludmila e basis for patient managem ent decisions. Nega tive results must be combine d with clinical observ ations, patient history , and epidemiological information. A false negativ e result may occur if a spec imen is improperly gia ected, transported or handled. This SARS CoV-2 test is a rapid, real-time RT-PC R test intended for th e qualitative detection of nu cleic acid from SARS-CoV-2 in a nasopharyngeal swab specimen collected from individuals suspected of CO VID-19 by their healthcar e provider. This test has been authorized by FDA under an EUA for use by authorized laboratories. This test is only authorized for the duration of the declaration that circumstances exist justifying the authorization of emergency use of in vitro diagnostic tests for detection and/or diagnosis of COVID-19 under Section 564(b)(1) of the Federal Food, Drug and Cosmetic Act, 21 U.S.C. 360bbb-3(b)(1), unless the authorization is terminated or revoked sooner. Fact Sheet for Healthcare Providers: https://www.[employer]/Documents/Xpert%20Xpress%20SARS%20CoV-2/Fact%20Sheets/302-7802%62BELZ-VLN-6%20 HEALTHCARE%20PROVIDERS%20FACT%20SHEET.pdf Fact Sheet for Healthcare Patients: https://www.[employer]/Documents/Xpert%20Xp ress%20SARS%20CoV-2/Fact%20Sheets/302-3801%47FZKJ-LJL-2%20PATIENT%20FACT%20SHEET .[id number] 11:12:43 Test Item Value Reference Range Interpretation Comments PARTIAL THROMBOPLASTIN TIME 104.2 seconds 22.5-36.0 H (BEAKER) (test code = 760) [id number] 11:02:18 Test Item Value Reference Range Interpretation Comments PHOSPHORUS (BEAKER) (test code = 4.3 mg/dL 2.3-4.7 604) Stitcher Hand ID - SOCO LLACTATE DEHYDROGENASE (LDH)2021-10-05 04:18:31 Test Item Value Reference Range Interpretation Comments LACTATE DEHYDROGENASE (BEAKER) (test 239 U/L 125-220 H code = 635) Stitcher Hand ID - SOCO [id number] 04:18:30 Test Item Value Reference Range Interpretation Comments PHOSPHORUS (BEAKER) (test code = 5.0 mg/dL 2.3-4.7 H 604) Stitcher Hand ID - SOCO LBASIC METABOLIC [id number] 04:18:28 Test Item Value Reference Range Interpretation Comments SODIUM (BEAKER) 133 meq/L 136-145 L (test code = 381) POTASSIUM (BEAKER) 4.1 meq/L 3.5-5.1 (test code = 379) CHLORIDE (BEAKER) 97 meq/L 98-107 L (test code = 382) CO2 (BEAKER) (test 24 meq/L 22-29 code = 355) BLOOD UREA NITROGEN 12 mg/dL 7-21 (BEAKER) (test code = 354) CREATININE (BEAKER) 0.83 mg/dL 0.57-1.25 (test code = 358) GLUCOSE RANDOM 95 mg/dL 70-105 (BEAKER) (test code = 652) CALCIUM (BEAKER) 9.0 mg/dL 8.4-10.2 (test code = 697) EGFR (BEAKER) (test 98 mL/min/1.73 ESTIMA NEELA GFR IS code = 1092) sq m NOT ACCURATE CREATININE CLEARANCE IN PREDICTING GLOMERULAR FILTRATION RATE . ESTIMATED GFR I S NOT APPLICABLE FOR DIALYSIS PATIEN TS. Stitcher Hand ID - PINISHANT [id number] 04:18:27 Test Item Value Reference Range Interpretation Comments MAGNESIUM (BEAKER) (test code = 1.9 mg/dL 1.6-2.6 627) Stitcher Hand ID - PINISHANT [id number] 03:55:43 Test Item Value Reference Range Interpretation Comments PARTIAL THROMBOPLASTIN TIME 95.6 seconds 22.5-36.0 H (BEAKER) (test code = 760) PROTHROMBIN TIME/[id number] 03:54:00 Test Item Value Reference Range Interpretation Comments PROTIME (BEAKER) 21.6 seconds 11.9-14.2 H (test code = 759) INR (BEAKER) (test 1.91 See_Comment [Automat ed message] code = 370) The system g4interactive generated this result transmitted ref erence range: <=5.90. The reference range was not used to int erpret this result as normal/abnormal . RECOMMENDED COUMADIN/WARFARIN INR THERAPY RANGESSTANDARD DOSE: 2.0 - 3.0 Includes: PROPHYLAXIS for venous thrombosis, systemic embolization; TREATMENT for venous thrombosis and/or pulmonary embolus.HIGH RISK: Target INR is 2.5-3.5 for patients with mechanical heart valves.CBC W/PLT COUNT & AUTO [id number] 03:45:58 Test Item Value Reference Range Interpretation Comments WHITE BLOOD CELL COUNT (BEAKER) 6.8 K/ L 3.5-10.5 (test code = 775) RED BLOOD CELL COUNT (BEAKER) 2.79 M/ L 4.63-6.08 L (test code = 761) HEMOGLOBIN (BEAKER) (test code = 8.7 GM/DL 13.7-17.5 L 410) HEMATOCRIT (BEAKER) (test code = 28.2 % 40.1-51.0 L 411) MEAN CORPUSCULAR VOLUME (BEAKER) 101.1 fL 79.0-92.2 H (test code = 753) MEAN CORPUSCULAR HEMOGLOBIN 31.2 pg 25.7-32.2 (BEAKER) (test code = 751) MEAN CORPUSCULAR HEMOGLOBIN CONC 30.9 GM/DL 32.3-36.5 L (BEAKER) (test code = 752) RED CELL DISTRIBUTION WIDTH 18.6 % 11.6-14.4 H (BEAKER) (test code = 412) PLATELET COUNT (BEAKER) (test 153 K/CU MM 150-450 code = 756) MEAN PLATELET VOLUME (BEAKER) 9.4 fL 9.4-12.4 (test code = 754) NUCLEATED RED BLOOD CELLS 0 /100 WBC 0-0 (BEAKER) (test code = 413) NEUTROPHILS RELATIVE PERCENT 71 % (BEAKER) (test code = 429) LYMPHOCYTES RELATIVE PERCENT 18 % (BEAKER) (test code = 430) MONOCYTES RELATIVE PERCENT 6 % (BEAKER) (test code = 431) EOSINOPHILS RELATIVE PERCENT 4 % (BEAKER) (test code = 432) BASOPHILS RELATIVE PERCENT 0 % (BEAKER) (test code = 437) NEUTROPHILS ABSOLUTE COUNT 4.82 K/ L 1.78-5.38 (BEAKER) (test code = 670) LYMPHOCYTES ABSOLUTE COUNT 1.20 K/ L 1.32-3.57 L (BEAKER) (test code = 414) MONOCYTES ABSOLUTE COUNT (BEAKER) 0.42 K/ L 0.30-0.82 (test code = 415) EOSINOPHILS ABSOLUTE COUNT 0.29 K/ L 0.04-0.54 (BEAKER) (test code = 416) BASOPHILS ABSOLUTE COUNT (BEAKER) 0.02 K/ L 0.01-0.08 (test code = 417) IMMATURE GRANULOCYTES-RELATIVE 1 % 0-1 PERCENT (BEAKER) (test code = 2801) OXYGEN SATURATION, [id number] 03:43:58 Test Item Value Reference Range Interpretation Comments O2 SATURATION (MEASURED) (BEAKER) 78.7 % (test code = 1455) BASIC METABOLIC [id number] 20:48:18 Test Item Value Reference Range Interpretation Comments SODIUM (BEAKER) 135 meq/L 136-145 L (test code = 381) POTASSIUM (BEAKER) 4.2 meq/L 3.5-5.1 Specimen slightly (test code = 379) hemolyzed CHLORIDE (BEAKER) 99 meq/L 98-107 (test code = 382) CO2 (BEAKER) (test 24 meq/L 22-29 code = 355) BLOOD UREA NITROGEN 12 mg/dL 7-21 (BEAKER) (test code = 354) CREATININE (BEAKER) 0.86 mg/dL 0.57-1.25 Specimen slightly (test code = 358) hemolyzed GLUCOSE RANDOM 116 mg/dL 70-105 H (BEAKER) (test code = 652) CALCIUM (BEAKER) 8.7 mg/dL 8.4-10.2 (test code = 697) EGFR (BEAKER) (test 94 mL/min/1.73 ESTIMA NEELA GFR IS code = 1092) sq m NOT ACCURATE CREATININE CLEARANCE IN PREDICTING GLOMERULAR FILTRATION RATE . ESTIMATED GFR I S NOT APPLICABLE FOR DIALYSIS PATIEN TS. Stitcher Hand ID - SO [id number] 20:48:17 Test Item Value Reference Range Interpretation Comments PHOSPHORUS (BEAKER) 4.0 mg/dL 2.3-4.7 Specimen slightly (test code = 604) hemolyzed Stitcher Hand ID - SO [id number] 20:33:57 Test Item Value Reference Range Interpretation Comments PARTIAL THROMBOPLASTIN TIME 70.2 seconds 22.5-36.0 H (BEAKER) (test code = 760) Type and screen, [id number] 14:14:00 Test Item Value Reference Range Interpretation Comments ABO/RH AUTOMATED (BEAKER) (test A POSITIVE code = 2260) Ab Scrn (test code = 890-4) NEGATIVE [facility] [id number] 13:33:38 Test Item Value Reference Range Interpretation Comments CALCIUM IONIZED (BEAKER) (test 1.07 mmol/L 1.12-1.27 L code = 698) PH, BLOOD (BEAKER) (test code = 7.42 1810) [id number] 09:37:34 Test Item Value Reference Range Interpretation Comments PHOSPHORUS (BEAKER) (test code = 4.3 mg/dL 2.3-4.7 604) Stitcher Hand ID - SO MPOCT-GLUCOSE [id number] 09:37:18 Test Item Value Reference Range Interpretation Comments POC-GLUCOSE METER 96 mg/dL 70-110 : TESTED A T [facility] 6720 (BEAKER) (test code = [place], 1538) [address]: Stitcher Hand/Techni ebenezer ID = [id number] for Miriam Rios [id number] 09:35:36 Test Item Value Reference Range Interpretation Comments PARTIAL THROMBOPLASTIN TIME 49.0 seconds 22.5-36.0 H (BEAKER) (test code = 760) RAD, CHEST, 1 VIEW, NON [id number] 07:05:00Reason for exam:->s/p LVADShould this be performed at the bedside?->Yes [facility] 1970 Sex: MFINAL REPORT EXAM/TECHNIQUE: Single view frontal radiograph of the chest. INDICATION: LVAD COMPARISON: 10/03/2021 FINDINGS: Devices/Objects: Stable. Lungs: Increased hazy opacities. Heart/Mediastinum: Similar cardiomegaly with increased interstitial thickening. Osseous: No acute osseous process. No suspicious osseous lesion. Upper abdomen: Unremarkable. Impression: Increased pulmonaryedema. Signed: Ulysses Miller Verified Date/Time: 10/04/2021 07:05:12 ATE DEHYDROGENASE (LDH)2021-10-04 05:37:56 Test Item Value Reference Range Interpretation Comments LACTATE DEHYDROGENASE (BEAKER) (test 220 U/L 125-220 code = 635) Stitcher Hand ID - SO [id number] 05:37:55 Test Item Value Reference Range Interpretation Comments PHOSPHORUS (BEAKER) (test code = 4.5 mg/dL 2.3-4.7 604) Stitcher Hand ID - SO [id number] 05:37:54 Test Item Value Reference Range Interpretation Comments MAGNESIUM (BEAKER) (test code = 1.8 mg/dL 1.6-2.6 627) Stitcher Hand ID - SO MBASIC METABOLIC [id number] 05:37:53 Test Item Value Reference Range Interpretation Comments SODIUM (BEAKER) 132 meq/L 136-145 L (test code = 381) POTASSIUM (BEAKER) 3.9 meq/L 3.5-5.1 (test code = 379) CHLORIDE (BEAKER) 96 meq/L 98-107 L (test code = 382) CO2 (BEAKER) (test 27 meq/L 22-29 code = 355) BLOOD UREA NITROGEN 9 mg/dL 7-21 (BEAKER) (test code = 354) CREATININE (BEAKER) 0.82 mg/dL 0.57-1.25 (test code = 358) GLUCOSE RANDOM 188 mg/dL 70-105 H (BEAKER) (test code = 652) CALCIUM (BEAKER) 8.9 mg/dL 8.4-10.2 (test code = 697) EGFR (BEAKER) (test 99 mL/min/1.73 ESTIMA NEELA GFR IS code = 1092) sq m NOT ACCURATE CREATININE CLEARANCE IN PREDICTING GLOMERULAR FILTRATION RATE . ESTIMATED GFR I S NOT APPLICABLE FOR DIALYSIS PATIEN TS. Stitcher Hand ID - SO M(CELLAVISION MANUAL DIFF)2021-10-04 04:42:23 Test Item Value Reference Range Interpretation Comments NEUTROPHILS - REL 85 % (CELLAVISION)(BEAKER) (test code = 2816) LYMPHOCYTES - REL 10 % (CELLAVISION)(BEAKER) (test code = 2817) MONOCYTES - REL 2 % (CELLAVISION)(BEAKER) (test code = 2818) EOSINOPHILS - REL 1 % (CELLAVISION)(BEAKER) (test code = 2819) BASOPHILS - REL 1 % (CELLAVISION)(BEAKER) (test code = 2820) MYELOCYTES - REL 1 % 0-0 H (CELLAVISION)(BEAKER) (test code = 2822) NEUTROPHILS - ABS 5.78 K/ul 1.78-5.38 H (CELLAVISION)(BEAKER) (test code = 2830) LYMPHOCYTES - ABS 0.68 K/ul 1.32-3.57 L (CELLAVISION)(BEAKER) (test code = 2831) MONOCYTES - ABS 0.14 K/uL 0.30-0.82 L (CELLAVISION)(BEAKER) (test code = 2832) EOSINOPHILS - ABS 0.07 K/uL 0.04-0.54 (CELLAVISION)(BEAKER) (test code = 2834) BASOPHILS - ABS 0.07 K/uL 0.01-0.08 (CELLAVISION)(BEAKER) (test code = 2835) MYELOCYTES-ABS 0.07 K/uL 0.00-0.00 H (CELLAVISION)(BEAKER) (test code = 2837) TOTAL COUNTED (BEAKER) (test code 100 = 1351) SMUDGE CELLS (BEAKER) (test code Present = 1371) GIANT PLATELETS (BEAKER) (test Present code = 313) POLYCHROMATOPHILLIC RBCS(BEAKER) 2+ moderate (test code = 478) HYPOCHROMIA (BEAKER) (test code = 1+ few 963) ANISOCYTOSIS (BEAKER) (test code 2+ moderate = 961) MICROCYTES (BEAKER) (test code = 1+ few 965) PLATELET CONCENTRATION Adequate (CELLAVISION)(BEAKER) (test code = 3438) Stitcher Hand ID - Arnol Jurado comments: Slide comments:CBC W/PLT COUNT & AUTO [id number] 04:42:21 Test Item Value Reference Range Interpretation Comments WHITE BLOOD CELL COUNT (BEAKER) 6.8 K/ L 3.5-10.5 (test code = 775) RED BLOOD CELL COUNT (BEAKER) 2.42 M/ L 4.63-6.08 L (test code = 761) HEMOGLOBIN (BEAKER) (test code = 7.4 GM/DL 13.7-17.5 L 410) HEMATOCRIT (BEAKER) (test code = 23.7 % 40.1-51.0 L 411) MEAN CORPUSCULAR VOLUME (BEAKER) 97.9 fL 79.0-92.2 H (test code = 753) MEAN CORPUSCULAR HEMOGLOBIN 30.6 pg 25.7-32.2 (BEAKER) (test code = 751) MEAN CORPUSCULAR HEMOGLOBIN CONC 31.2 GM/DL 32.3-36.5 L (BEAKER) (test code = 752) RED CELL DISTRIBUTION WIDTH 18.2 % 11.6-14.4 H (BEAKER) (test code = 412) PLATELET COUNT (BEAKER) (test 153 K/CU MM 150-450 code = 756) MEAN PLATELET VOLUME (BEAKER) 9.2 fL 9.4-12.4 L (test code = 754) NUCLEATED RED BLOOD CELLS 0 /100 WBC 0-0 (BEAKER) (test code = 413) [id number] 04:17:35 Test Item Value Reference Range Interpretation Comments PARTIAL THROMBOPLASTIN TIME 131.8 seconds 22.5-36.0 H (BEAKER) (test code = 760) CALCIUM, [id number] 04:15:37 Test Item Value Reference Range Interpretation Comments CALCIUM IONIZED (BEAKER) (test 1.11 mmol/L 1.12-1.27 L code = 698) PH, BLOOD (BEAKER) (test code = 7.42 1810) OXYGEN SATURATION, [id number] 04:11:36 Test Item Value Reference Range Interpretation Comments O2 SATURATION (MEASURED) (BEAKER) 60.4 % (test code = 1455) PROTHROMBIN TIME/[id number] 04:10:57 Test Item Value Reference Range Interpretation Comments PROTIME (BEAKER) 19.6 seconds 11.9-14.2 H (test code = 759) INR (BEAKER) (test 1.69 See_Comment [Automat ed message] code = 370) The system g4interactive generated this result transmitted ref erence range: <=5.90. The reference range was not used to int erpret this result as normal/abnormal . RECOMMENDED COUMADIN/WARFARIN INR THERAPY RANGESSTANDARD DOSE: 2.0 - 3.0 Includes: PROPHYLAXIS for venous thrombosis, systemic embolization; TREATMENT for venous thrombosis and/or pulmonary embolus.HIGH RISK: Target INR is 2.5-3.5 for patients with mechanical heart valves.CALCIUM, [id number] 18:54:43 Test Item Value Reference Range Interpretation Comments CALCIUM IONIZED (BEAKER) (test 1.07 mmol/L 1.12-1.27 L code = 698) PH, BLOOD (BEAKER) (test code = 7.46 1810) [id number] 15:07:50 Test Item Value Reference Range Interpretation Comments PHOSPHORUS (BEAKER) (test code = 5.2 mg/dL 2.3-4.7 H 604) Stitcher Hand ID - DBBASIC METABOLIC [id number] 15:07:49 Test Item Value Reference Range Interpretation Comments SODIUM (BEAKER) 136 meq/L 136-145 (test code = 381) POTASSIUM (BEAKER) 4.6 meq/L 3.5-5.1 (test code = 379) CHLORIDE (BEAKER) 98 meq/L 98-107 (test code = 382) CO2 (BEAKER) (test 28 meq/L 22-29 code = 355) BLOOD UREA NITROGEN 10 mg/dL 7-21 (BEAKER) (test code = 354) CREATININE (BEAKER) 0.83 mg/dL 0.57-1.25 (test code = 358) GLUCOSE RANDOM 104 mg/dL 70-105 (BEAKER) (test code = 652) CALCIUM (BEAKER) 9.5 mg/dL 8.4-10.2 (test code = 697) EGFR (BEAKER) (test 98 mL/min/1.73 ESTIMA NEELA GFR IS code = 1092) sq m NOT ACCURATE CREATININE CLEARANCE IN PREDICTING GLOMERULAR FILTRATION RATE . ESTIMATED GFR I S NOT APPLICABLE FOR DIALYSIS PATIEN TS. Stitcher Hand ID - DBCALCIUM, [id number] 15:00:10 Test Item Value Reference Range Interpretation Comments CALCIUM IONIZED (BEAKER) (test 1.09 mmol/L 1.12-1.27 L code = 698) PH, BLOOD (BEAKER) (test code = 7.42 1810) OXYGEN SATURATION, [id number] 14:59:28 Test Item Value Reference Range Interpretation Comments O2 SATURATION (MEASURED) (BEAKER) 60.5 % (test code = 1455) [id number] 09:57:35 Test Item Value Reference Range Interpretation Comments PHOSPHORUS (BEAKER) (test code = 4.4 mg/dL 2.3-4.7 604) Stitcher Hand ID - PIAYA LCALCIUM, [id number] 09:44:54 Test Item Value Reference Range Interpretation Comments CALCIUM IONIZED (BEAKER) (test 1.11 mmol/L 1.12-1.27 L code = 698) PH, BLOOD (BEAKER) (test code = 7.41 1810) RAD, CHEST, 1 VIEW, NON [id number] 08:50:00Reason for exam:->s/p LVADShould this be performed at the bedside?->Yes [facility] 1970 Sex: MFINAL REPORT TECHNIQUE: One view of the chest. INDICATION: 51-year-old man status post left ventricular assist device placement. COMPARISON: Chest radiograph 10/02/2021. FINDINGS: LINES/TUBES/DEVICES: Unchanged. LUNGS: No consolidation or pulmonary edema. PLEURA: Unchanged questionablesmall left pleural effusion. No pneumothorax. HEART AND MEDIASTINUM: Cardiomediastinal silhouette isunchanged. BONES AND SOFT TISSUES: Unchanged median sternotomy wires and overlying cutaneous simona. IMPRESSION:No significant change since 10/02/2021. Signed: Donaldo Cartyepdeborah Verified Date/Time: 10/03/2021 08:50:12 Reading Location: [address] Body Reading Room (CELLAVISION MANUAL DIFF)2021-10-03 07:02:08 Test Item Value Reference Range Interpretation Comments NEUTROPHILS - REL 87 % (CELLAVISION)(BEAKER) (test code = 2816) LYMPHOCYTES - REL 8 % (CELLAVISION)(BEAKER) (test code = 2817) EOSINOPHILS - REL 4 % (CELLAVISION)(BEAKER) (test code = 2819) ATYPICAL LYMPHOCYTES - REL 1 % 0-0 H (CELLAVISION)(BEAKER) (test code = 2829) NEUTROPHILS - ABS 5.74 K/ul 1.78-5.38 H (CELLAVISION)(BEAKER) (test code = 2830) LYMPHOCYTES - ABS 0.53 K/ul 1.32-3.57 L (CELLAVISION)(BEAKER) (test code = 2831) EOSINOPHILS - ABS 0.26 K/uL 0.04-0.54 (CELLAVISION)(BEAKER) (test code = 2834) ATYPICAL LYMPHOCYTES - ABS 0.07 K/uL 0.00-0.00 H (CELLAVISION)(BEAKER) (test code = 2858) TOTAL COUNTED (BEAKER) (test code = 100 1351) SMUDGE CELLS (BEAKER) (test code = Present 1371) GIANT PLATELETS (BEAKER) (test code Present = 313) POLYCHROMATOPHILLIC RBCS(BEAKER) 1+ few (test code = 478) ANISOCYTOSIS (BEAKER) (test code = 1+ few 961) MICROCYTES (BEAKER) (test code = 1+ few 965) ELLIPTOCYTES (BEAKER) (test code = 1+ few 962) BASOPHILIC STIPPLING (BEAKER) (test Present code = 473) PLATELET CONCENTRATION Adequate (CELLAVISION)(BEAKER) (test code = 3438) Stitcher Hand ID - Kelli Grullon comments: Slide comments:CBC W/PLT COUNT & AUTO [id number] 07:02:05 Test Item Value Reference Range Interpretation Comments WHITE BLOOD CELL COUNT (BEAKER) 6.6 K/ L 3.5-10.5 (test code = 775) RED BLOOD CELL COUNT (BEAKER) 2.49 M/ L 4.63-6.08 L (test code = 761) HEMOGLOBIN (BEAKER) (test code = 7.7 GM/DL 13.7-17.5 L 410) HEMATOCRIT (BEAKER) (test code = 24.3 % 40.1-51.0 L 411) MEAN CORPUSCULAR VOLUME (BEAKER) 97.6 fL 79.0-92.2 H (test code = 753) MEAN CORPUSCULAR HEMOGLOBIN 30.9 pg 25.7-32.2 (BEAKER) (test code = 751) MEAN CORPUSCULAR HEMOGLOBIN CONC 31.7 GM/DL 32.3-36.5 L (BEAKER) (test code = 752) RED CELL DISTRIBUTION WIDTH 18.2 % 11.6-14.4 H (BEAKER) (test code = 412) PLATELET COUNT (BEAKER) (test 172 K/CU MM 150-450 code = 756) MEAN PLATELET VOLUME (BEAKER) 9.3 fL 9.4-12.4 L (test code = 754) NUCLEATED RED BLOOD CELLS 0 /100 WBC 0-0 (BEAKER) (test code = 413) LACTATE DEHYDROGENASE (LDH)2021-10-03 05:06:03 Test Item Value Reference Range Interpretation Comments LACTATE DEHYDROGENASE (BEAKER) (test 211 U/L 125-220 code = 635) Stitcher Hand ID - SOCO [id number] 05:06:02 Test Item Value Reference Range Interpretation Comments PHOSPHORUS (BEAKER) (test code = 4.9 mg/dL 2.3-4.7 H 604) Stitcher Hand ID - SOCO [id number] 05:06:01 Test Item Value Reference Range Interpretation Comments MAGNESIUM (BEAKER) (test code = 2.0 mg/dL 1.6-2.6 627) Stitcher Hand ID - SOCO LBASIC METABOLIC [id number] 05:06:00 Test Item Value Reference Range Interpretation Comments SODIUM (BEAKER) 134 meq/L 136-145 L (test code = 381) POTASSIUM (BEAKER) 4.3 meq/L 3.5-5.1 (test code = 379) CHLORIDE (BEAKER) 99 meq/L 98-107 (test code = 382) CO2 (BEAKER) (test 25 meq/L 22-29 code = 355) BLOOD UREA NITROGEN 10 mg/dL 7-21 (BEAKER) (test code = 354) CREATININE (BEAKER) 0.84 mg/dL 0.57-1.25 (test code = 358) GLUCOSE RANDOM 97 mg/dL 70-105 (BEAKER) (test code = 652) CALCIUM (BEAKER) 9.2 mg/dL 8.4-10.2 (test code = 697) EGFR (BEAKER) (test 97 mL/min/1.73 ESTIMA NEELA GFR IS code = 1092) sq m NOT ACCURATE CREATININE CLEARANCE IN PREDICTING GLOMERULAR FILTRATION RATE . ESTIMATED GFR I S NOT APPLICABLE FOR DIALYSIS PATIEN TS. Stitcher Hand ID - SOCO [id number] 04:57:13 Test Item Value Reference Range Interpretation Comments PARTIAL THROMBOPLASTIN TIME 81.0 seconds 22.5-36.0 H (BEAKER) (test code = 760) PROTHROMBIN [id number] 04:55:36 Test Item Value Reference Range Interpretation Comments PROTIME (BEAKER) 18.3 seconds 11.9-14.2 H (test code = 759) INR (BEAKER) (test 1.54 See_Comment [Automat ed message] code = 370) The system g4interactive generated this result transmitted ref erence range: <=5.90. The reference range was not used to int erpret this result as normal/abnormal . RECOMMENDED COUMADIN/WARFARIN INR THERAPY RANGESSTANDARD DOSE: 2.0 - 3.0 Includes: PROPHYLAXIS for venous thrombosis, systemic embolization; TREATMENT for venous thrombosis and/or pulmonary embolus.HIGH RISK: Target INR is 2.5-3.5 for patients with mechanical heart valves.LACTIC ACID, [id number] 04:55:12 Test Item Value Reference Range Interpretation Comments LACTATE BLOOD 1.2 mmol/L 0.5-2.2 Specimen sligh tly ARTERIAL (2) (BEAKER) hemoly zed (test code = 2874) Stitcher Hand ID - SOCO LCALCIUM, [id number] 04:45:27 Test Item Value Reference Range Interpretation Comments CALCIUM IONIZED (BEAKER) (test 1.12 mmol/L 1.12-1.27 code = 698) PH, BLOOD (BEAKER) (test code = 7.39 1810) OXYGEN SATURATION, [id number] 04:43:04 Test Item Value Reference Range Interpretation Comments O2 SATURATION (MEASURED) (BEAKER) 72.8 % (test code = 1455) [id number] 16:47:00 Test Item Value Reference Range Interpretation Comments PHOSPHORUS (BEAKER) (test code = 4.7 mg/dL 2.3-4.7 604) Stitcher Hand ID - SOCO LBASIC METABOLIC [id number] 16:46:59 Test Item Value Reference Range Interpretation Comments SODIUM (BEAKER) 134 meq/L 136-145 L (test code = 381) POTASSIUM (BEAKER) 4.3 meq/L 3.5-5.1 (test code = 379) CHLORIDE (BEAKER) 98 meq/L 98-107 (test code = 382) CO2 (BEAKER) (test 24 meq/L 22-29 code = 355) BLOOD UREA NITROGEN 9 mg/dL 7-21 (BEAKER) (test code = 354) CREATININE (BEAKER) 0.80 mg/dL 0.57-1.25 (test code = 358) GLUCOSE RANDOM 115 mg/dL 70-105 H (BEAKER) (test code = 652) CALCIUM (BEAKER) 9.3 mg/dL 8.4-10.2 (test code = 697) EGFR (BEAKER) (test 102 mL/min/1.73 ESTIM ATED GFR IS code = 1092) sq m NOT ACCURATE CREATININE CLEARANCE IN PREDICTING GLOMERULAR FILTRATION RATE . ESTIMATED GFR I S NOT APPLICABLE FOR DIALYSIS PATIEN TS. Stitcher Hand JESSICA WAN LCALCIUM, [id number] 16:41:41 Test Item Value Reference Range Interpretation Comments CALCIUM IONIZED (BEAKER) (test 1.06 mmol/L 1.12-1.27 L code = 698) PH, BLOOD (BEAKER) (test code = 7.47 1810) [id number] 13:05:43 Test Item Value Reference Range Interpretation Comments POTASSIUM (BEAKER) (test code = 3.8 meq/L 3.5-5.1 379) Stitcher Hand JESSICA WAN [id number] 13:05:42 Test Item Value Reference Range Interpretation Comments MAGNESIUM (BEAKER) (test code = 2.1 mg/dL 1.6-2.6 627) Stitcher Hand JESSICA WAN LCALCIUM, [id number] 12:49:09 Test Item Value Reference Range Interpretation Comments CALCIUM IONIZED (BEAKER) (test 1.10 mmol/L 1.12-1.27 L code = 698) PH, BLOOD (BEAKER) (test code = 7.44 1810) [id number] 07:56:47 Test Item Value Reference Range Interpretation Comments PARTIAL THROMBOPLASTIN TIME 69.0 seconds 22.5-36.0 H (BEAKER) (test code = 760) CALCIUM, [id number] 05:41:30 Test Item Value Reference Range Interpretation Comments CALCIUM IONIZED (BEAKER) (test 1.07 mmol/L 1.12-1.27 L code = 698) PH, BLOOD (BEAKER) (test code = 7.43 1810) OXYGEN SATURATION, [id number] 05:29:36 Test Item Value Reference Range Interpretation Comments O2 SATURATION (MEASURED) (BEAKER) 74.7 % (test code = 1455) RAD, CHEST, 1 VIEW, NON [id number] 05:15:00Reason for exam:->s/p LVADShould this be performed at the bedside?->Yes [facility] : 1970 Sex: MFINAL REPORT RAD, CHEST, 1 VIEW, NON DEPT INDICATION: s/p LVAD COMPARISON: Prior day's exam FINDINGS: Portable frontal view of the chest. IMPRESSION: Support Lines: The pulmonary arterial catheter has been removed. Stable right PICC. Lungs and pleura: No new airspace consolidation or large effusion. No pneumothorax. Heart and mediastinum: Stable contours and postsurgical changes. Additional findings: None. Signed: Herb Zuleta [facility] Verified Date/Time: 10/02/2021 05:15:19 LACTATE DEHYDROGENASE (LDH)2021-10-02 05:05:51 Test Item Value Reference Range Interpretation Comments LACTATE DEHYDROGENASE (BEAKER) (test 218 U/L 125-220 code = 635) Stitcher Hand ID - PIAYA [id number] 05:05:50 Test Item Value Reference Range Interpretation Comments MAGNESIUM (BEAKER) (test code = 1.8 mg/dL 1.6-2.6 627) Stitcher Hand ID - SOCO [id number] 05:05:50 Test Item Value Reference Range Interpretation Comments PHOSPHORUS (BEAKER) (test code = 4.1 mg/dL 2.3-4.7 604) Stitcher Hand JESSICA WAN LBASIC METABOLIC [id number] 05:05:49 Test Item Value Reference Range Interpretation Comments SODIUM (BEAKER) 135 meq/L 136-145 L (test code = 381) POTASSIUM (BEAKER) 3.7 meq/L 3.5-5.1 (test code = 379) CHLORIDE (BEAKER) 99 meq/L 98-107 (test code = 382) CO2 (BEAKER) (test 27 meq/L 22-29 code = 355) BLOOD UREA NITROGEN 10 mg/dL 7-21 (BEAKER) (test code = 354) CREATININE (BEAKER) 0.73 mg/dL 0.57-1.25 (test code = 358) GLUCOSE RANDOM 93 mg/dL 70-105 (BEAKER) (test code = 652) CALCIUM (BEAKER) 9.1 mg/dL 8.4-10.2 (test code = 697) EGFR (BEAKER) (test 114 mL/min/1.73 ESTIM ATED GFR IS code = 1092) sq m NOT ACCURATE CREATININE CLEARANCE IN PREDICTING GLOMERULAR FILTRATION RATE . ESTIMATED GFR I S NOT APPLICABLE FOR DIALYSIS PATIEN TS. Stitcher Hand ID Sla WAN LPROTHROMBIN [id number] 04:53:58 Test Item Value Reference Range Interpretation Comments PROTIME (BEAKER) 16.8 seconds 11.9-14.2 H (test code = 759) INR (BEAKER) (test 1.39 See_Comment [Automat ed message] code = 370) The system g4interactive generated this result transmitted ref erence range: <=5.90. The reference range was not used to int erpret this result as normal/abnormal . RECOMMENDED COUMADIN/WARFARIN INR THERAPY RANGESSTANDARD DOSE: 2.0 - 3.0 Includes: PROPHYLAXIS for venous thrombosis, systemic embolization; TREATMENT for venous thrombosis and/or pulmonary embolus.HIGH RISK: Target INR is 2.5-3.5 for patients with mechanical heart valves.LACTIC ACID, [id number] 04:53:00 Test Item Value Reference Range Interpretation Comments LACTATE BLOOD ARTERIAL (2) 1.1 mmol/L 0.5-2.2 (BEAKER) (test code = 2874) Stitcher Hand ID - PIAYA LCBC W/PLT COUNT & AUTO [id number] 04:40:13 Test Item Value Reference Range Interpretation Comments WHITE BLOOD CELL COUNT (BEAKER) 6.9 K/ L 3.5-10.5 (test code = 775) RED BLOOD CELL COUNT (BEAKER) 2.68 M/ L 4.63-6.08 L (test code = 761) HEMOGLOBIN (BEAKER) (test code = 8.3 GM/DL 13.7-17.5 L 410) HEMATOCRIT (BEAKER) (test code = 27.2 % 40.1-51.0 L 411) MEAN CORPUSCULAR VOLUME (BEAKER) 101.5 fL 79.0-92.2 H (test code = 753) MEAN CORPUSCULAR HEMOGLOBIN 31.0 pg 25.7-32.2 (BEAKER) (test code = 751) MEAN CORPUSCULAR HEMOGLOBIN CONC 30.5 GM/DL 32.3-36.5 L (BEAKER) (test code = 752) RED CELL DISTRIBUTION WIDTH 18.1 % 11.6-14.4 H (BEAKER) (test code = 412) PLATELET COUNT (BEAKER) (test 162 K/CU MM 150-450 code = 756) MEAN PLATELET VOLUME (BEAKER) 8.7 fL 9.4-12.4 L (test code = 754) NUCLEATED RED BLOOD CELLS 0 /100 WBC 0-0 (BEAKER) (test code = 413) NEUTROPHILS RELATIVE PERCENT 78 % (BEAKER) (test code = 429) LYMPHOCYTES RELATIVE PERCENT 13 % (BEAKER) (test code = 430) MONOCYTES RELATIVE PERCENT 5 % (BEAKER) (test code = 431) EOSINOPHILS RELATIVE PERCENT 3 % (BEAKER) (test code = 432) BASOPHILS RELATIVE PERCENT 0 % (BEAKER) (test code = 437) NEUTROPHILS ABSOLUTE COUNT 5.38 K/ L 1.78-5.38 (BEAKER) (test code = 670) LYMPHOCYTES ABSOLUTE COUNT 0.87 K/ L 1.32-3.57 L (BEAKER) (test code = 414) MONOCYTES ABSOLUTE COUNT (BEAKER) 0.37 K/ L 0.30-0.82 (test code = 415) EOSINOPHILS ABSOLUTE COUNT 0.21 K/ L 0.04-0.54 (BEAKER) (test code = 416) BASOPHILS ABSOLUTE COUNT (BEAKER) 0.02 K/ L 0.01-0.08 (test code = 417) IMMATURE GRANULOCYTES-RELATIVE 1 % 0-1 PERCENT (BEAKER) (test code = 2801) [id number] 21:06:55 Test Item Value Reference Range Interpretation Comments PHOSPHORUS (BEAKER) (test code = 3.8 mg/dL 2.3-4.7 604) Stitcher Hand ID - [id number] 21:06:54 Test Item Value Reference Range Interpretation Comments MAGNESIUM (BEAKER) (test code = 1.9 mg/dL 1.6-2.6 627) Stitcher Hand ID - BSBASIC METABOLIC [id number] 21:06:52 Test Item Value Reference Range Interpretation Comments SODIUM (BEAKER) 133 meq/L 136-145 L (test code = 381) POTASSIUM (BEAKER) 3.6 meq/L 3.5-5.1 (test code = 379) CHLORIDE (BEAKER) 97 meq/L 98-107 L (test code = 382) CO2 (BEAKER) (test 27 meq/L 22-29 code = 355) BLOOD UREA NITROGEN 12 mg/dL 7-21 (BEAKER) (test code = 354) CREATININE (BEAKER) 0.76 mg/dL 0.57-1.25 (test code = 358) GLUCOSE RANDOM 112 mg/dL 70-105 H (BEAKER) (test code = 652) CALCIUM (BEAKER) 8.9 mg/dL 8.4-10.2 (test code = 697) EGFR (BEAKER) (test 109 mL/min/1.73 ESTIM ATED GFR IS code = 1092) sq m NOT ACCURATE CREATININE CLEARANCE IN PREDICTING GLOMERULAR FILTRATION RATE . ESTIMATED GFR I S NOT APPLICABLE FOR DIALYSIS PATIEN TS. Stitcher Hand ID - [id number] 18:37:02 Test Item Value Reference Range Interpretation Comments POTASSIUM (BEAKER) (test code = 3.5 meq/L 3.5-5.1 379) Stitcher Hand ID - [id number] 18:37:01 Test Item Value Reference Range Interpretation Comments PHOSPHORUS (BEAKER) (test code = 3.6 mg/dL 2.3-4.7 604) Stitcher Hand ID - [id number] 18:37:00 Test Item Value Reference Range Interpretation Comments MAGNESIUM (BEAKER) (test code = 1.9 mg/dL 1.6-2.6 627) Stitcher Hand ID - ZEKECALCIUM, [id number] 18:14:59 Test Item Value Reference Range Interpretation Comments CALCIUM IONIZED (BEAKER) (test 1.13 mmol/L 1.12-1.27 code = 698) PH, BLOOD (BEAKER) (test code = 7.42 1810) [id number] 13:16:17 Test Item Value Reference Range Interpretation Comments PHOSPHORUS (BEAKER) (test code = 3.4 mg/dL 2.3-4.7 604) Stitcher Hand ID - SOCO [id number] 13:16:16 Test Item Value Reference Range Interpretation Comments MAGNESIUM (BEAKER) (test code = 2.0 mg/dL 1.6-2.6 627) Stitcher Hand ID - SOCO LBASIC METABOLIC [id number] 13:16:14 Test Item Value Reference Range Interpretation Comments SODIUM (BEAKER) 133 meq/L 136-145 L (test code = 381) POTASSIUM (BEAKER) 4.3 meq/L 3.5-5.1 (test code = 379) CHLORIDE (BEAKER) 98 meq/L 98-107 (test code = 382) CO2 (BEAKER) (test 26 meq/L 22-29 code = 355) BLOOD UREA NITROGEN 12 mg/dL 7-21 (BEAKER) (test code = 354) CREATININE (BEAKER) 0.73 mg/dL 0.57-1.25 (test code = 358) GLUCOSE RANDOM 139 mg/dL 70-105 H (BEAKER) (test code = 652) CALCIUM (BEAKER) 9.0 mg/dL 8.4-10.2 (test code = 697) EGFR (BEAKER) (test 114 mL/min/1.73 ESTIM ATED GFR IS code = 1092) sq m NOT ACCURATE CREATININE CLEARANCE IN PREDICTING GLOMERULAR FILTRATION RATE . ESTIMATED GFR I S NOT APPLICABLE FOR DIALYSIS PATIEN TS. Stitcher Hand ID - SOCO LCALCIUM, [id number] 12:43:27 Test Item Value Reference Range Interpretation Comments CALCIUM IONIZED (BEAKER) (test 1.09 mmol/L 1.12-1.27 L code = 698) PH, BLOOD (BEAKER) (test code = 7.47 1810) RAD, CHEST, 1 VIEW, NON [id number] 07:31:00Reason for exam:->s/p LVADShould this be performed at the bedside?->Yes [facility] 1970 Sex: MFINAL REPORT RAD, CHEST, 1 VIEW, NON DEPT INDICATION: s/p LVAD COMPARISON: Prior day's exam FINDINGS: Portable frontal view of the chest. IMPRESSION: Limited by underpenetration.SupportLines: Stable. Lungs and pleura: No changes in the airspace appearance. Stable left effusion. No pneu mothorax.Heart and mediastinum: Stable contours. Stable surgical changes.Additional findings: None. Signed: JR Dumont Robert MDReport Verified Date/Time: 10/01/2021 07:31:06 Reading Location: [facility] Radiology Reading Room LACTATE DEHYDROGENASE (LDH)2021-10-01 05:47:24 Test Item Value Reference Range Interpretation Comments LACTATE DEHYDROGENASE (BEAKER) (test 241 U/L 125-220 H code = 635) Stitcher Hand ID - PIAYA [id number] 05:47:23 Test Item Value Reference Range Interpretation Comments MAGNESIUM (BEAKER) (test code = 2.3 mg/dL 1.6-2.6 627) Stitcher Hand ID - PIAYA LCALCIUM, [id number] 05:29:07 Test Item Value Reference Range Interpretation Comments CALCIUM IONIZED (BEAKER) (test 1.13 mmol/L 1.12-1.27 code = 698) PH, BLOOD (BEAKER) (test code = 7.39 1810) OXYGEN SATURATION, [id number] 05:26:10 Test Item Value Reference Range Interpretation Comments O2 SATURATION (MEASURED) (BEAKER) 71.1 % (test code = 1455) [id number] 05:22:47 Test Item Value Reference Range Interpretation Comments PHOSPHORUS (BEAKER) (test code = 3.7 mg/dL 2.3-4.7 604) Stitcher Hand ID - PIAYA LBASIC METABOLIC [id number] 05:22:46 Test Item Value Reference Range Interpretation Comments SODIUM (BEAKER) 134 meq/L 136-145 L (test code = 381) POTASSIUM (BEAKER) 3.7 meq/L 3.5-5.1 (test code = 379) CHLORIDE (BEAKER) 97 meq/L 98-107 L (test code = 382) CO2 (BEAKER) (test 29 meq/L - code = 355) BLOOD UREA NITROGEN 12 mg/dL 7-21 (BEAKER) (test code = 354) CREATININE (BEAKER) 0.77 mg/dL 0.57-1.25 (test code = 358) GLUCOSE RANDOM 109 mg/dL 70-105 H (BEAKER) (test code = 652) CALCIUM (BEAKER) 9.2 mg/dL 8.4-10.2 (test code = 697) EGFR (BEAKER) (test 107 mL/min/1.73 ESTIM ATED GFR IS code = 1092) sq m NOT ACCURATE CREATININE CLEARANCE IN PREDICTING GLOMERULAR FILTRATION RATE . ESTIMATED GFR I S NOT APPLICABLE FOR DIALYSIS PATIEN TS. Stitcher Hand ID - PIAYA LCBC W/PLT COUNT & AUTO [id number] 05:13:24 Test Item Value Reference Range Interpretation Comments WHITE BLOOD CELL COUNT (BEAKER) 7.1 K/ L 3.5-10.5 (test code = 775) RED BLOOD CELL COUNT (BEAKER) 2.62 M/ L 4.63-6.08 L (test code = 761) HEMOGLOBIN (BEAKER) (test code = 8.1 GM/DL 13.7-17.5 L 410) HEMATOCRIT (BEAKER) (test code = 26.2 % 40.1-51.0 L 411) MEAN CORPUSCULAR VOLUME (BEAKER) 100.0 fL 79.0-92.2 H (test code = 753) MEAN CORPUSCULAR HEMOGLOBIN 30.9 pg 25.7-32.2 (BEAKER) (test code = 751) MEAN CORPUSCULAR HEMOGLOBIN CONC 30.9 GM/DL 32.3-36.5 L (BEAKER) (test code = 752) RED CELL DISTRIBUTION WIDTH 17.9 % 11.6-14.4 H (BEAKER) (test code = 412) PLATELET COUNT (BEAKER) (test 175 K/CU MM 150-450 code = 756) MEAN PLATELET VOLUME (BEAKER) 8.7 fL 9.4-12.4 L (test code = 754) NUCLEATED RED BLOOD CELLS 0 /100 WBC 0-0 (BEAKER) (test code = 413) NEUTROPHILS RELATIVE PERCENT 77 % (BEAKER) (test code = 429) LYMPHOCYTES RELATIVE PERCENT 13 % (BEAKER) (test code = 430) MONOCYTES RELATIVE PERCENT 6 % (BEAKER) (test code = 431) EOSINOPHILS RELATIVE PERCENT 3 % (BEAKER) (test code = 432) BASOPHILS RELATIVE PERCENT 0 % (BEAKER) (test code = 437) NEUTROPHILS ABSOLUTE COUNT 5.50 K/ L 1.78-5.38 H (BEAKER) (test code = 670) LYMPHOCYTES ABSOLUTE COUNT 0.93 K/ L 1.32-3.57 L (BEAKER) (test code = 414) MONOCYTES ABSOLUTE COUNT (BEAKER) 0.40 K/ L 0.30-0.82 (test code = 415) EOSINOPHILS ABSOLUTE COUNT 0.22 K/ L 0.04-0.54 (BEAKER) (test code = 416) BASOPHILS ABSOLUTE COUNT (BEAKER) 0.02 K/ L 0.01-0.08 (test code = 417) IMMATURE GRANULOCYTES-RELATIVE 1 % 0-1 PERCENT (BEAKER) (test code = 2801) LACTIC ACID, [id number] 05:07:41 Test Item Value Reference Range Interpretation Comments LACTATE BLOOD 1.2 mmol/L 0.5-2.2 Specimen sligh tly ARTERIAL (2) (BEAKER) hemoly zed (test code = 2874) Stitcher Hand ID - SOCO LSpecimen slightly [id number] 04:58:58 Test Item Value Reference Range Interpretation Comments PARTIAL THROMBOPLASTIN TIME 79.9 seconds 22.5-36.0 H (BEAKER) (test code = 760) PROTHROMBIN [id number] 04:57:15 Test Item Value Reference Range Interpretation Comments PROTIME (BEAKER) 15.3 seconds 11.9-14.2 H (test code = 759) INR (BEAKER) (test 1.23 See_Comment [Automat ed message] code = 370) The system g4interactive generated this result transmitted ref erence range: <=5.90. The reference range was not used to int erpret this result as normal/abnormal . RECOMMENDED COUMADIN/WARFARIN INR THERAPY RANGESSTANDARD DOSE: 2.0 - 3.0 Includes: PROPHYLAXIS for venous thrombosis, systemic embolization; TREATMENT for venous thrombosis and/or pulmonary embolus.HIGH RISK: Target INR is 2.5-3.5 for patients with mechanical heart valves.CALCIUM, [id number] 00:06:10 Test Item Value Reference Range Interpretation Comments CALCIUM IONIZED (BEAKER) (test 1.07 mmol/L 1.12-1.27 L code = 698) PH, BLOOD (BEAKER) (test code = 7.44 1810) [id number] 00:01:14 Test Item Value Reference Range Interpretation Comments PHOSPHORUS (BEAKER) (test code = 4.1 mg/dL 2.3-4.7 604) Stitcher Hand ID - SOCO [id number] 00:01:13 Test Item Value Reference Range Interpretation Comments MAGNESIUM (BEAKER) (test code = 1.9 mg/dL 1.6-2.6 627) Stitcher Hand ID - SOCO LBASIC METABOLIC [id number] 00:01:12 Test Item Value Reference Range Interpretation Comments SODIUM (BEAKER) 133 meq/L 136-145 L (test code = 381) POTASSIUM (BEAKER) 3.3 meq/L 3.5-5.1 L (test code = 379) CHLORIDE (BEAKER) 97 meq/L 98-107 L (test code = 382) CO2 (BEAKER) (test 26 meq/L - code = 355) BLOOD UREA NITROGEN 11 mg/dL 7-21 (BEAKER) (test code = 354) CREATININE (BEAKER) 0.76 mg/dL 0.57-1.25 (test code = 358) GLUCOSE RANDOM 113 mg/dL 70-105 H (BEAKER) (test code = 652) CALCIUM (BEAKER) 8.7 mg/dL 8.4-10.2 (test code = 697) EGFR (BEAKER) (test 109 mL/min/1.73 ESTIM ATED GFR IS code = 1092) sq m NOT ACCURATE CREATININE CLEARANCE IN PREDICTING GLOMERULAR FILTRATION RATE . ESTIMATED GFR I S NOT APPLICABLE FOR DIALYSIS PATIEN TS. Stitcher Hand ID - PIAYA [id number] 18:29:13 Test Item Value Reference Range Interpretation Comments PHOSPHORUS (BEAKER) (test code = 4.5 mg/dL 2.3-4.7 604) Stitcher Hand ID - [id number] 18:29:12 Test Item Value Reference Range Interpretation Comments MAGNESIUM (BEAKER) (test code = 2.1 mg/dL 1.6-2.6 627) Stitcher Hand ID - BSBASIC METABOLIC [id number] 18:29:11 Test Item Value Reference Range Interpretation Comments SODIUM (BEAKER) 133 meq/L 136-145 L (test code = 381) POTASSIUM (BEAKER) 3.2 meq/L 3.5-5.1 L (test code = 379) CHLORIDE (BEAKER) 94 meq/L 98-107 L (test code = 382) CO2 (BEAKER) (test 29 meq/L code = 355) BLOOD UREA NITROGEN 13 mg/dL 7-21 (BEAKER) (test code = 354) CREATININE (BEAKER) 0.75 mg/dL 0.57-1.25 (test code = 358) GLUCOSE RANDOM 144 mg/dL 70-105 H (BEAKER) (test code = 652) CALCIUM (BEAKER) 9.0 mg/dL 8.4-10.2 (test code = 697) EGFR (BEAKER) (test 110 mL/min/1.73 ESTIM ATED GFR IS code = 1092) sq m NOT ACCURATE CREATININE CLEARANCE IN PREDICTING GLOMERULAR FILTRATION RATE . ESTIMATED GFR I S NOT APPLICABLE FOR DIALYSIS PATIEN TS. Stitcher Hand ID - BSCALCIUM, [id number] 17:36:48 Test Item Value Reference Range Interpretation Comments CALCIUM IONIZED (BEAKER) (test 1.11 mmol/L 1.12-1.27 L code = 698) PH, BLOOD (BEAKER) (test code = 7.42 1810) OXYGEN SATURATION, [id number] 17:36:15 Test Item Value Reference Range Interpretation Comments O2 SATURATION (MEASURED) (BEAKER) 63.1 % (test code = 1455) [id number] 13:54:13 Test Item Value Reference Range Interpretation Comments PHOSPHORUS (BEAKER) (test code = 4.4 mg/dL 2.3-4.7 604) Stitcher Hand ID - PIAYA [id number] 13:54:12 Test Item Value Reference Range Interpretation Comments MAGNESIUM (BEAKER) (test code = 1.9 mg/dL 1.6-2.6 627) Stitcher Hand ID - PIAYA LBASIC METABOLIC [id number] 13:54:11 Test Item Value Reference Range Interpretation Comments SODIUM (BEAKER) 133 meq/L 136-145 L (test code = 381) POTASSIUM (BEAKER) 3.6 meq/L 3.5-5.1 (test code = 379) CHLORIDE (BEAKER) 94 meq/L 98-107 L (test code = 382) CO2 (BEAKER) (test 31 meq/L 22-29 H code = 355) BLOOD UREA NITROGEN 13 mg/dL 7-21 (BEAKER) (test code = 354) CREATININE (BEAKER) 0.73 mg/dL 0.57-1.25 (test code = 358) GLUCOSE RANDOM 133 mg/dL 70-105 H (BEAKER) (test code = 652) CALCIUM (BEAKER) 8.8 mg/dL 8.4-10.2 (test code = 697) EGFR (BEAKER) (test 114 mL/min/1.73 ESTIM ATED GFR IS code = 1092) sq m NOT ACCURATE CREATININE CLEARANCE IN PREDICTING GLOMERULAR FILTRATION RATE . ESTIMATED GFR I S NOT APPLICABLE FOR DIALYSIS PATIEN TS. Stitcher Hand ID - PIAYA LOXYGEN SATURATION, [id number] 13:41:44 Test Item Value Reference Range Interpretation Comments O2 SATURATION (MEASURED) (BEAKER) 64.5 % (test code = 1455) CALCIUM, [id number] 13:40:44 Test Item Value Reference Range Interpretation Comments CALCIUM IONIZED (BEAKER) (test 1.12 mmol/L 1.12-1.27 code = 698) PH, BLOOD (BEAKER) (test code = 7.39 1810) LACTATE DEHYDROGENASE (LDH)2021-09-30 10:00:23 Test Item Value Reference Range Interpretation Comments LACTATE DEHYDROGENASE (BEAKER) (test 272 U/L 125-220 H code = 635) Stitcher Hand ID - SOCO [id number] 10:00:22 Test Item Value Reference Range Interpretation Comments PHOSPHORUS (BEAKER) (test code = 4.2 mg/dL 2.3-4.7 604) Stitcher Hand ID - SOCO [id number] 10:00:21 Test Item Value Reference Range Interpretation Comments MAGNESIUM (BEAKER) (test code = 2.3 mg/dL 1.6-2.6 627) Stitcher Hand ID - SOCO LBASIC METABOLIC [id number] 10:00:20 Test Item Value Reference Range Interpretation Comments SODIUM (BEAKER) 131 meq/L 136-145 L (test code = 381) POTASSIUM (BEAKER) 4.0 meq/L 3.5-5.1 (test code = 379) CHLORIDE (BEAKER) 95 meq/L 98-107 L (test code = 382) CO2 (BEAKER) (test 28 meq/L 22-29 code = 355) BLOOD UREA NITROGEN 12 mg/dL 7-21 (BEAKER) (test code = 354) CREATININE (BEAKER) 0.76 mg/dL 0.57-1.25 (test code = 358) GLUCOSE RANDOM 117 mg/dL 70-105 H (BEAKER) (test code = 652) CALCIUM (BEAKER) 9.3 mg/dL 8.4-10.2 (test code = 697) EGFR (BEAKER) (test 109 mL/min/1.73 ESTIM ATED GFR IS code = 1092) sq m NOT ACCURATE CREATININE CLEARANCE IN PREDICTING GLOMERULAR FILTRATION RATE . ESTIMATED GFR I S NOT APPLICABLE FOR DIALYSIS PATIEN TS. Stitcher Hand ID - SOCO LRAD, CHEST, 1 VIEW, NON [id number] 07:30:00Reason for exam:->s/p LVADShould this be performed at the bedside?->Yes [facility] : 1970 Sex: MFINAL REPORT RAD, CHEST, 1 VIEW, NON DEPT INDICATION: s/p LVAD COMPARISON: Prior day's exam FINDINGS: Portable frontal view of the chest. IMPRESSION: Limited by underpenetration.SupportLines: Stable. Lungs and pleura: Bibasilar subsegmental atelectasis. Questionable small left effusion. No pneumothorax.Heart and mediastinum: Stable contours. Stable surgical changes.Additional findings: None. Signed: JR Dumont Robert MDReport Verified Date/Time: 09/30/2021 07:30:21 Reading Location: [facility] Radiology Reading Room Electronically signed by: ANNETTE DUMONT on 09/30 07:30 AMPOCT-GLUCOSE [id number] 06:08:21 Test Item Value Reference Range Interpretation Comments POC-GLUCOSE METER 118 mg/dL 70-110 H : TESTED A T [facility] 6720 ([place]) (test code = MELVINA Olson [facility], 1538) [address]: Stitcher Hand/Techni ebenezer ID = [id number] for Co Janeth major [id number] 03:46:32 Test Item Value Reference Range Interpretation Comments PARTIAL THROMBOPLASTIN TIME 72.4 seconds 22.5-36.0 H (BEAKER) (test code = 760) PROTHROMBIN TIME/[id number] 03:44:48 Test Item Value Reference Range Interpretation Comments PROTIME ([place]) 15.0 seconds 11.9-14.2 H (test code = 759) INR (BEAKER) (test 1.20 See_Comment [Automat ed message] code = 370) The system g4interactive generated this result transmitted ref erence range: <=5.90. The reference range was not used to int erpret this result as normal/abnormal . RECOMMENDED COUMADIN/WARFARIN INR THERAPY RANGESSTANDARD DOSE: 2.0 - 3.0 Includes: PROPHYLAXIS for venous thrombosis, systemic embolization; TREATMENT for venous thrombosis and/or pulmonary embolus.HIGH RISK: Target INR is 2.5-3.5 for patients with mechanical heart valves.LACTIC ACID, [id number] 03:40:29 Test Item Value Reference Range Interpretation Comments LACTATE BLOOD 0.9 mmol/L 0.5-2.2 Specimen sligh tly ARTERIAL (2) (BEAKER) hemoly zed (test code = 2874) Stitcher Hand ID - DBCALCIUM, [id number] 03:33:28 Test Item Value Reference Range Interpretation Comments CALCIUM IONIZED (BEAKER) (test 1.10 mmol/L 1.12-1.27 L code = 698) PH, BLOOD (BEAKER) (test code = 7.40 1810) CBC W/PLT COUNT & AUTO [id number] 03:32:24 Test Item Value Reference Range Interpretation Comments WHITE BLOOD CELL COUNT (BEAKER) 8.2 K/ L 3.5-10.5 (test code = 775) RED BLOOD CELL COUNT (BEAKER) 2.57 M/ L 4.63-6.08 L (test code = 761) HEMOGLOBIN (BEAKER) (test code = 7.9 GM/DL 13.7-17.5 L 410) HEMATOCRIT (BEAKER) (test code = 24.5 % 40.1-51.0 L 411) MEAN CORPUSCULAR VOLUME (BEAKER) 95.3 fL 79.0-92.2 H (test code = 753) MEAN CORPUSCULAR HEMOGLOBIN 30.7 pg 25.7-32.2 (BEAKER) (test code = 751) MEAN CORPUSCULAR HEMOGLOBIN CONC 32.2 GM/DL 32.3-36.5 L (BEAKER) (test code = 752) RED CELL DISTRIBUTION WIDTH 17.4 % 11.6-14.4 H (BEAKER) (test code = 412) PLATELET COUNT (BEAKER) (test 209 K/CU MM 150-450 code = 756) MEAN PLATELET VOLUME (BEAKER) 8.6 fL 9.4-12.4 L (test code = 754) NUCLEATED RED BLOOD CELLS 0 /100 WBC 0-0 (BEAKER) (test code = 413) NEUTROPHILS RELATIVE PERCENT 80 % (BEAKER) (test code = 429) LYMPHOCYTES RELATIVE PERCENT 11 % (BEAKER) (test code = 430) MONOCYTES RELATIVE PERCENT 5 % (BEAKER) (test code = 431) EOSINOPHILS RELATIVE PERCENT 3 % (BEAKER) (test code = 432) BASOPHILS RELATIVE PERCENT 0 % (BEAKER) (test code = 437) NEUTROPHILS ABSOLUTE COUNT 6.53 K/ L 1.78-5.38 H (BEAKER) (test code = 670) LYMPHOCYTES ABSOLUTE COUNT 0.89 K/ L 1.32-3.57 L (BEAKER) (test code = 414) MONOCYTES ABSOLUTE COUNT (BEAKER) 0.43 K/ L 0.30-0.82 (test code = 415) EOSINOPHILS ABSOLUTE COUNT 0.25 K/ L 0.04-0.54 (BEAKER) (test code = 416) BASOPHILS ABSOLUTE COUNT (BEAKER) 0.00 K/ L 0.01-0.08 L (test code = 417) IMMATURE GRANULOCYTES-RELATIVE 1 % 0-1 PERCENT (BEAKER) (test code = 2801) OXYGEN SATURATION, [id number] 03:32:07 Test Item Value Reference Range Interpretation Comments O2 SATURATION (MEASURED) (BEAKER) 69.4 % (test code = 1455) [id number] 00:34:23 Test Item Value Reference Range Interpretation Comments PHOSPHORUS (BEAKER) (test code = 4.5 mg/dL 2.3-4.7 604) Stitcher Hand ID - [id number] 00:34:22 Test Item Value Reference Range Interpretation Comments MAGNESIUM (BEAKER) (test code = 1.8 mg/dL 1.6-2.6 627) Stitcher Hand ID - DBBASIC METABOLIC [id number] 00:34:21 Test Item Value Reference Range Interpretation Comments SODIUM (BEAKER) 131 meq/L 136-145 L (test code = 381) POTASSIUM (BEAKER) 3.6 meq/L 3.5-5.1 (test code = 379) CHLORIDE (BEAKER) 93 meq/L 98-107 L (test code = 382) CO2 (BEAKER) (test 29 meq/L 22-29 code = 355) BLOOD UREA NITROGEN 12 mg/dL 7-21 (BEAKER) (test code = 354) CREATININE (BEAKER) 0.76 mg/dL 0.57-1.25 (test code = 358) GLUCOSE RANDOM 123 mg/dL 70-105 H (BEAKER) (test code = 652) CALCIUM (BEAKER) 9.0 mg/dL 8.4-10.2 (test code = 697) EGFR (BEAKER) (test 109 mL/min/1.73 ESTIM ATED GFR IS code = 1092) sq m NOT ACCURATE CREATININE CLEARANCE IN PREDICTING GLOMERULAR FILTRATION RATE . ESTIMATED GFR I S NOT APPLICABLE FOR DIALYSIS PATIEN TS. Stitcher Hand ID - DBCALCIUM, [id number] 00:16:53 Test Item Value Reference Range Interpretation Comments CALCIUM IONIZED (BEAKER) (test 1.08 mmol/L 1.12-1.27 L code = 698) PH, BLOOD (BEAKER) (test code = 7.45 1810) [id number] 21:13:44 Test Item Value Reference Range Interpretation Comments PARTIAL THROMBOPLASTIN TIME 65.6 seconds 22.5-36.0 H (BEAKER) (test code = 760) [id number] 18:04:15 Test Item Value Reference Range Interpretation Comments PHOSPHORUS (BEAKER) (test code = 4.1 mg/dL 2.3-4.7 604) Stitcher Hand ID - [id number] 18:04:14 Test Item Value Reference Range Interpretation Comments MAGNESIUM (BEAKER) (test code = 1.8 mg/dL 1.6-2.6 627) Stitcher Hand ID - DBBASIC METABOLIC [id number] 18:04:13 Test Item Value Reference Range Interpretation Comments SODIUM (BEAKER) 129 meq/L 136-145 L (test code = 381) POTASSIUM (BEAKER) 3.7 meq/L 3.5-5.1 (test code = 379) CHLORIDE (BEAKER) 92 meq/L 98-107 L (test code = 382) CO2 (BEAKER) (test 29 meq/L 22-29 code = 355) BLOOD UREA NITROGEN 12 mg/dL 7-21 (BEAKER) (test code = 354) CREATININE (BEAKER) 0.73 mg/dL 0.57-1.25 (test code = 358) GLUCOSE RANDOM 128 mg/dL 70-105 H (BEAKER) (test code = 652) CALCIUM (BEAKER) 8.5 mg/dL 8.4-10.2 (test code = 697) EGFR (BEAKER) (test 114 mL/min/1.73 ESTIM ATED GFR IS code = 1092) sq m NOT ACCURATE CREATININE CLEARANCE IN PREDICTING GLOMERULAR FILTRATION RATE . ESTIMATED GFR I S NOT APPLICABLE FOR DIALYSIS PATIEN TS. Stitcher Hand ID - DBCALCIUM, [id number] 17:52:36 Test Item Value Reference Range Interpretation Comments CALCIUM IONIZED (BEAKER) (test 1.06 mmol/L 1.12-1.27 L code = 698) PH, BLOOD (BEAKER) (test code = 7.47 1810) 2D Echo W/Doppler(CW/PW/Color)2021-09-29 15:37:59Ejection FractionSLEH ECHO HEARTLAB [facility] 2021-09-29 14:40:40 Test Item Value Reference Range Interpretation Comments O2 SATURATION (MEASURED) (BEAKER) 68.4 % (test code = 1455) [id number] 12:45:31 Test Item Value Reference Range Interpretation Comments PHOSPHORUS (BEAKER) (test code = 4.1 mg/dL 2.3-4.7 604) Stitcher Hand ID - [id number] 12:45:30 Test Item Value Reference Range Interpretation Comments MAGNESIUM (BEAKER) (test code = 1.9 mg/dL 1.6-2.6 627) Stitcher Hand ID - DBBASIC METABOLIC [id number] 12:45:29 Test Item Value Reference Range Interpretation Comments SODIUM (BEAKER) 131 meq/L 136-145 L (test code = 381) POTASSIUM (BEAKER) 4.0 meq/L 3.5-5.1 (test code = 379) CHLORIDE (BEAKER) 93 meq/L 98-107 L (test code = 382) CO2 (BEAKER) (test 30 meq/L 22-29 H code = 355) BLOOD UREA NITROGEN 12 mg/dL 7-21 (BEAKER) (test code = 354) CREATININE (BEAKER) 0.67 mg/dL 0.57-1.25 (test code = 358) GLUCOSE RANDOM 131 mg/dL 70-105 H (BEAKER) (test code = 652) CALCIUM (BEAKER) 8.7 mg/dL 8.4-10.2 (test code = 697) EGFR (BEAKER) (test 126 mL/min/1.73 ESTIM ATED GFR IS code = 1092) sq m NOT ACCURATE CREATININE CLEARANCE IN PREDICTING GLOMERULAR FILTRATION RATE . ESTIMATED GFR I S NOT APPLICABLE FOR DIALYSIS PATIEN TS. Stitcher Hand ID - [id number] 12:43:27 Test Item Value Reference Range Interpretation Comments PARTIAL THROMBOPLASTIN TIME 64.2 seconds 22.5-36.0 H (BEAKER) (test code = 760) CALCIUM, [id number] 12:29:01 Test Item Value Reference Range Interpretation Comments CALCIUM IONIZED (BEAKER) (test 1.09 mmol/L 1.12-1.27 L code = 698) PH, BLOOD (BEAKER) (test code = 7.48 1810) Creatine Kinase (CK)2021-09-29 04:46:29 Test Item Value Reference Range Interpretation Comments Total CK (test code = 19 U/L 29-200 L 2157-6) SCOTT (test code = SCOTT) Stitcher Hand ID - DB Lab Interpretation (test Abnormal code = 82892-9) [facility] 04:46:29 Test Item Value Reference Range Interpretation Comments CREATINE KINASE TOTAL (BEAKER) (test 19 U/L 29-200 L code = 380) Stitcher Hand ID - DBLACTATE DEHYDROGENASE (LDH)2021-09-29 04:46:21 Test Item Value Reference Range Interpretation Comments LACTATE DEHYDROGENASE (BEAKER) (test 265 U/L 125-220 H code = 635) Stitcher Hand ID - [id number] 04:46:20 Test Item Value Reference Range Interpretation Comments PHOSPHORUS (BEAKER) (test code = 3.4 mg/dL 2.3-4.7 604) Stitcher Hand ID - [id number] 04:46:19 Test Item Value Reference Range Interpretation Comments MAGNESIUM (BEAKER) (test code = 2.3 mg/dL 1.6-2.6 627) Stitcher Hand ID - DBCOMPREHENSIVE METABOLIC [id number] 04:46:18 Test Item Value Reference Range Interpretation Comments TOTAL PROTEIN 6.3 gm/dL 6.0-8.3 (BEAKER) (test code = 770) ALBUMIN (BEAKER) 3.3 g/dL 3.5-5.0 L (test code = 1145) ALKALINE PHOSPHATASE 166 U/L 40-150 H (BEAKER) (test code = 346) BILIRUBIN TOTAL 0.7 mg/dL 0.2-1.2 (BEAKER) (test code = 377) SODIUM (BEAKER) (test 131 meq/L 136-145 L code = 381) POTASSIUM (BEAKER) 3.8 meq/L 3.5-5.1 (test code = 379) CHLORIDE (BEAKER) 93 meq/L 98-107 L (test code = 382) CO2 (BEAKER) (test 30 meq/L 22-29 H code = 355) BLOOD UREA NITROGEN 14 mg/dL 7-21 (BEAKER) (test code = 354) CREATININE (BEAKER) 0.65 mg/dL 0.57-1.25 (test code = 358) GLUCOSE RANDOM 134 mg/dL 70-105 H (BEAKER) (test code = 652) CALCIUM (BEAKER) 9.0 mg/dL 8.4-10.2 (test code = 697) AST (SGOT) (BEAKER) 16 U/L 5-34 (test code = 353) ALT (SGPT) (BEAKER) 11 U/L 6-55 (test code = 347) EGFR (BEAKER) (test 130 ESTIMATE D GFR IS code = 1092) mL/min/1.73 sq NOT ACCURA TE m CREATININE CLEARANCE IN PREDICTING GLOMERULAR FILTRATION RATE . ESTIMATED GFR I S NOT APPLICABLE FOR DIALYSIS PATIEN TS. Stitcher Hand ID - DBCALCIUM, [id number] 04:35:27 Test Item Value Reference Range Interpretation Comments CALCIUM IONIZED (BEAKER) (test 1.09 mmol/L 1.12-1.27 L code = 698) PH, BLOOD (BEAKER) (test code = 7.45 1810) Blood gas, [id number] 04:35:26 Test Item Value Reference Range Interpretation Comments pH, Arterial (test code 7.45 7.35-7.45 = 2744-1) pCO2, Arterial (test 48 See_Comment H [Autom ated message] code = 2019-8) The system [facility] generated this result transmit neela reference range : 35 - 45 mm Hg. The reference range was not used to interpret this result as normal/abnormal . pO2, Arterial (test 94 See_Comment H [Automa neela message] code = 2703-7) The system [employer] generated this result transmit neela reference range : 80 - 90 mm Hg. The reference range was not used to interpret this result as normal/abnormal . O2 Sat, Arterial (test 97.4 % 96.0-97.0 H code = 2708-6) HCO3, Arterial (test 32 mmol/L 21-29 H code = 1960-4) Base Excess, Arterial 7.5 mmol/L -2.0-3.0 H (test code = 1925-7) Patient Temperature 37.0 (test code = 8310-5) FIO2 (test code = 1819) 24 Lab Interpretation Abnormal (test code = 05050-8) [facility], [id number] 04:35:26 Test Item Value Reference Range Interpretation Comments PH ARTERIAL (BEAKER) (test code = 7.45 7.35-7.45 383) PCO2 ARTERIAL (BEAKER) (test code 48 mm Hg 35-45 H = 384) PO2 ARTERIAL (BEAKER) (test code = 94 mm Hg 80-90 H 385) O2 SATURATION ARTERIAL (BEAKER) 97.4 % 96.0-97.0 H (test code = 386) HCO3 ARTERIAL (BEAKER) (test code 32 mmol/L 21-29 H = 388) BASE EXCESS ARTERIAL (BEAKER) 7.5 mmol/L -2.0-3.0 H (test code = 387) PATIENT TEMPERATURE (BEAKER) (test 37.0 code = 1818) FIO2 (BEAKER) (test code = 1819) 24.0 [id number] 04:29:10 Test Item Value Reference Range Interpretation Comments PARTIAL THROMBOPLASTIN TIME 59.0 seconds 22.5-36.0 H (BEAKER) (test code = 760) PROTHROMBIN TIME/[id number] 04:29:09 Test Item Value Reference Range Interpretation Comments PROTIME (BEAKER) 15.7 seconds 11.9-14.2 H (test code = 759) INR (BEAKER) (test 1.27 See_Comment [Automat ed message] code = 370) The system g4interactive generated this result transmitted ref erence range: <=5.90. The reference range was not used to int erpret this result as normal/abnormal . RECOMMENDED COUMADIN/WARFARIN INR THERAPY RANGESSTANDARD DOSE: 2.0 - 3.0 Includes: PROPHYLAXIS for venous thrombosis, systemic embolization; TREATMENT for venous thrombosis and/or pulmonary embolus.HIGH RISK: Target INR is 2.5-3.5 for patients with mechanical heart valves.LACTIC ACID, [id number] 04:24:32 Test Item Value Reference Range Interpretation Comments LACTATE BLOOD ARTERIAL (2) 0.7 mmol/L 0.5-2.2 (ESTEFANYAKER) (test code = 2874) Stitcher Hand ID - DBRAD, CHEST, 1 VIEW, NON [id number] 04:24:00Reason for exam:- >s/p LVADShould this be performed at the bedside?->Yes [facility] : 1970 Sex: MFINAL REPORT EXAM/TECHNIQUE: Single view frontal radiograph of the chest. INDICATION: Postsurgical. COMPARISON: 09/28/2021. FINDINGS: Devices/Objects: Stable. Lungs: Similar diffuse pulmonary opacities. Heart/Mediastinum: Similar cardiomegaly and interstitial thickening. Osseous: No acute osseous process. No suspicious osseous lesion. Upper abdomen: Unremarkable. Impression: No new cardiopulmonary process. Signed: Ulysses Miller MDReport Verified Date/Time: 09/29/2021 04:24:40 OXYGEN SATURATION, [id number] 04:19:28 Test Item Value Reference Range Interpretation Comments O2 SATURATION (MEASURED) (BEAKER) 60.2 % (test code = 1455) CBC W/PLT COUNT & AUTO [id number] 04:14:06 Test Item Value Reference Range Interpretation Comments WHITE BLOOD CELL COUNT (BEAKER) 9.0 K/ L 3.5-10.5 (test code = 775) RED BLOOD CELL COUNT (BEAKER) 2.69 M/ L 4.63-6.08 L (test code = 761) HEMOGLOBIN (BEAKER) (test code = 8.3 GM/DL 13.7-17.5 L 410) HEMATOCRIT (BEAKER) (test code = 25.6 % 40.1-51.0 L 411) MEAN CORPUSCULAR VOLUME (BEAKER) 95.2 fL 79.0-92.2 H (test code = 753) MEAN CORPUSCULAR HEMOGLOBIN 30.9 pg 25.7-32.2 (BEAKER) (test code = 751) MEAN CORPUSCULAR HEMOGLOBIN CONC 32.4 GM/DL 32.3-36.5 (BEAKER) (test code = 752) RED CELL DISTRIBUTION WIDTH 17.3 % 11.6-14.4 H (BEAKER) (test code = 412) PLATELET COUNT (BEAKER) (test 278 K/CU MM 150-450 code = 756) MEAN PLATELET VOLUME (BEAKER) 8.7 fL 9.4-12.4 L (test code = 754) NUCLEATED RED BLOOD CELLS 0 /100 WBC 0-0 (BEAKER) (test code = 413) NEUTROPHILS RELATIVE PERCENT 79 % (BEAKER) (test code = 429) LYMPHOCYTES RELATIVE PERCENT 13 % (BEAKER) (test code = 430) MONOCYTES RELATIVE PERCENT 6 % (BEAKER) (test code = 431) EOSINOPHILS RELATIVE PERCENT 2 % (BEAKER) (test code = 432) BASOPHILS RELATIVE PERCENT 0 % (BEAKER) (test code = 437) NEUTROPHILS ABSOLUTE COUNT 7.07 K/ L 1.78-5.38 H (BEAKER) (test code = 670) LYMPHOCYTES ABSOLUTE COUNT 1.16 K/ L 1.32-3.57 L (BEAKER) (test code = 414) MONOCYTES ABSOLUTE COUNT (BEAKER) 0.49 K/ L 0.30-0.82 (test code = 415) EOSINOPHILS ABSOLUTE COUNT 0.21 K/ L 0.04-0.54 (BEAKER) (test code = 416) BASOPHILS ABSOLUTE COUNT (BEAKER) 0.01 K/ L 0.01-0.08 (test code = 417) IMMATURE GRANULOCYTES-RELATIVE 1 % 0-1 PERCENT (BEAKER) (test code = 2801) [id number] 00:39:53 Test Item Value Reference Range Interpretation Comments PHOSPHORUS (BEAKER) (test code = 3.5 mg/dL 2.3-4.7 604) Stitcher Hand ID - [id number] 00:39:52 Test Item Value Reference Range Interpretation Comments MAGNESIUM (BEAKER) (test code = 1.7 mg/dL 1.6-2.6 627) Stitcher Hand ID - DBBASIC METABOLIC [id number] 00:39:51 Test Item Value Reference Range Interpretation Comments SODIUM (BEAKER) 132 meq/L 136-145 L (test code = 381) POTASSIUM (BEAKER) 3.6 meq/L 3.5-5.1 (test code = 379) CHLORIDE (BEAKER) 93 meq/L 98-107 L (test code = 382) CO2 (BEAKER) (test 29 meq/L 22-29 code = 355) BLOOD UREA NITROGEN 13 mg/dL 7-21 (BEAKER) (test code = 354) CREATININE (BEAKER) 0.66 mg/dL 0.57-1.25 (test code = 358) GLUCOSE RANDOM 151 mg/dL 70-105 H (BEAKER) (test code = 652) CALCIUM (BEAKER) 8.9 mg/dL 8.4-10.2 (test code = 697) EGFR (BEAKER) (test 128 mL/min/1.73 ESTIM ATED GFR IS code = 1092) sq m NOT ACCURATE CREATININE CLEARANCE IN PREDICTING GLOMERULAR FILTRATION RATE . ESTIMATED GFR I S NOT APPLICABLE FOR DIALYSIS PATIEN TS. Stitcher Hand ID - DBCALCIUM, [id number] 00:13:37 Test Item Value Reference Range Interpretation Comments CALCIUM IONIZED (BEAKER) (test 1.10 mmol/L 1.12-1.27 L code = 698) PH, BLOOD (BEAKER) (test code = 7.46 1810) POCT-GLUCOSE [id number] 21:25:03 Test Item Value Reference Range Interpretation Comments POC-GLUCOSE METER 119 mg/dL 70-110 H : TESTED A T [facility] 6720 (BEAKER) (test code = KATHEJULISA Whitney [place], 1538) [address]: Stitcher Hand/Techni ebenezer ID = [id number] for BENJAMIN HOOKS [id number] 20:14:28 Test Item Value Reference Range Interpretation Comments PARTIAL THROMBOPLASTIN TIME 58.9 seconds 22.5-36.0 H (BEAKER) (test code = 760) BASIC METABOLIC [id number] 19:17:22 Test Item Value Reference Range Interpretation Comments SODIUM (BEAKER) 132 meq/L 136-145 L (test code = 381) POTASSIUM (BEAKER) 3.7 meq/L 3.5-5.1 Specimen slightly (test code = 379) hemolyzed CHLORIDE (BEAKER) 92 meq/L 98-107 L (test code = 382) CO2 (BEAKER) (test 31 meq/L 22-29 H code = 355) BLOOD UREA NITROGEN 14 mg/dL 7-21 (BEAKER) (test code = 354) CREATININE (BEAKER) 0.62 mg/dL 0.57-1.25 Specimen slightly (test code = 358) hemolyzed GLUCOSE RANDOM 132 mg/dL 70-105 H (BEAKER) (test code = 652) CALCIUM (BEAKER) 8.8 mg/dL 8.4-10.2 (test code = 697) EGFR (BEAKER) (test 137 mL/min/1.73 ESTIM ATED GFR IS code = 1092) sq m NOT ACCURATE CREATININE CLEARANCE IN PREDICTING GLOMERULAR FILTRATION RATE . ESTIMATED GFR I S NOT APPLICABLE FOR DIALYSIS PATIEN TS. Stitcher Hand ID - [id number] 19:17:21 Test Item Value Reference Range Interpretation Comments PHOSPHORUS (BEAKER) 3.4 mg/dL 2.3-4.7 Specimen slightly (test code = 604) hemolyzed Stitcher Hand ID - [id number] 19:17:20 Test Item Value Reference Range Interpretation Comments MAGNESIUM (BEAKER) 1.6 mg/dL 1.6-2.6 Specimen slightly (test code = 627) hemolyzed Stitcher Hand ID - DBCALCIUM, [id number] 18:50:40 Test Item Value Reference Range Interpretation Comments CALCIUM IONIZED (BEAKER) (test 1.08 mmol/L 1.12-1.27 L code = 698) PH, BLOOD (BEAKER) (test code = 7.48 1810) SARS-COV2/RT-PCR ([facility])2021-09-28 18:06:33 Test Item Value Reference Range Interpretation Comments SARS-COV2/RT-PCR Negative Negative The SARS-Co V-2 target (test code = nucleic acids a re not [id number]) detected in thi s specimen. Negative result s do not preclude SARS-C oV-2 infection and s hould not be used as the ludmila e basis for patient managem ent decisions. Nega tive results must be combine d with clinical observ ations, patient history , and epidemiological information. A false negativ e result may occur if a spec imen is improperly gia ected, transported or handled. This SARS CoV-2 test is a rapid, real-time RT-PC R test intended for th e qualitative detection of nu cleic acid from SARS-CoV-2 in a nasopharyngeal swab specimen collected from individuals suspected of CO VID-19 by their healthcar e provider. This test has been authorized by FDA under an EUA for use by authorized laboratories. This test is only authorized for the duration of the declaration that circumstances exist justifying the authorization of emergency use of in vitro diagnostic tests for detection and/or diagnosis of COVID-19 under Section 564(b)(1) of the Federal Food, Drug and Cosmetic Act, 21 U.S.C. 360bbb-3(b)(1), unless the authorization is terminated or revoked sooner. Fact Sheet for Healthcare Providers: https://www.cepheid.co m/Documents/Xpert%20Xpress%20SARS%20CoV-2/Fact%20Sheets/299-6229%24NTYX-YYM-8%20 HEALTHCARE%20PROVIDERS%20FACT%20SHEET.pdf Fact Sheet for Healthcare Patients: https://www.Yamli.Space-[employer] Insight/Documents/Xpert%20Xp ress%20SARS%20CoV-2/Fact%20Sheets/302-3801%76ASCX-HXU-6%20PATIENT%20FACT%20SHEET .[id number] 16:41:46 Test Item Value Reference Range Interpretation Comments PHOSPHORUS (BEAKER) (test code = 3.2 mg/dL 2.3-4.7 604) Stitcher Hand ID - DBOperator ID - DBLACTIC ACID, [id number] 16:29:08 Test Item Value Reference Range Interpretation Comments LACTATE BLOOD VENOUS (2) (BEAKER) 0.99 mmol/L 0.50-2.20 (test code = 2872) Stitcher Hand ID - DBCALCIUM, [id number] 16:22:01 Test Item Value Reference Range Interpretation Comments CALCIUM IONIZED (BEAKER) (test 1.07 mmol/L 1.12-1.27 L code = 698) PH, BLOOD (BEAKER) (test code = 7.51 1810) [id number] 13:22:54 Test Item Value Reference Range Interpretation Comments PARTIAL THROMBOPLASTIN TIME 46.0 seconds 22.5-36.0 H (BEAKER) (test code = 760) RAD, CHEST, 1 VIEW, NON [id number] 10:39:00Reason for exam:->s/p LVADShould this be performed at the bedside?->Yes [facility] 1970 Sex: MFINAL REPORT RAD, CHEST, 1 VIEW, NON DEPT INDICATION: s/p LVAD COMPARISON: Prior day's exam FINDINGS: Portable frontal view of the chest. IMPRESSION: Support Lines: Pacer device and cardiac support hardware is unchanged. [place] tip overlies the right lower lobar pulmonary artery. PICC tip overlies the atriocaval junction. Lungs and pleura: Trace bilateral effusions. Mild retrocardiac atelectasis. No significant pneumothorax. Heart and mediastinum: Stable contours. Stable surgicalchanges. Additional findings: None. Signed: Keila Sorto Verified Date/Time: 09/28/2021 10:39:25 C METABOLIC [id number] 09:50:04 Test Item Value Reference Range Interpretation Comments SODIUM (BEAKER) 136 meq/L 136-145 (test code = 381) POTASSIUM (BEAKER) 3.3 meq/L 3.5-5.1 L (test code = 379) CHLORIDE (BEAKER) 91 meq/L 98-107 L (test code = 382) CO2 (BEAKER) (test 34 meq/L 22-29 H code = 355) BLOOD UREA NITROGEN 11 mg/dL 7-21 (BEAKER) (test code = 354) CREATININE (BEAKER) 0.60 mg/dL 0.57-1.25 (test code = 358) GLUCOSE RANDOM 144 mg/dL 70-105 H (BEAKER) (test code = 652) CALCIUM (BEAKER) 9.4 mg/dL 8.4-10.2 (test code = 697) EGFR (BEAKER) (test 143 mL/min/1.73 ESTIM ATED GFR IS code = 1092) sq m NOT ACCURATE CREATININE CLEARANCE IN PREDICTING GLOMERULAR FILTRATION RATE . ESTIMATED GFR I S NOT APPLICABLE FOR DIALYSIS PATIEN TS. Stitcher Hand ID - [id number] 09:50:04 Test Item Value Reference Range Interpretation Comments MAGNESIUM (BEAKER) (test code = 1.5 mg/dL 1.6-2.6 L 627) Stitcher Hand ID - DBCALCIUM, [id number] 08:30:43 Test Item Value Reference Range Interpretation Comments CALCIUM IONIZED (BEAKER) (test 1.10 mmol/L 1.12-1.27 L code = 698) PH, BLOOD (BEAKER) (test code = 7.45 1810) OXYGEN SATURATION, [id number] 08:30:07 Test Item Value Reference Range Interpretation Comments O2 SATURATION (MEASURED) (BEAKER) 66.1 % (test code = 1455) BLOOD GAS, [id number] 08:29:10 Test Item Value Reference Range Interpretation Comments PH ARTERIAL (BEAKER) (test code = 7.54 7.35-7.45 H 383) PCO2 ARTERIAL (BEAKER) (test code 42 mm Hg 35-45 = 384) PO2 ARTERIAL (BEAKER) (test code 150 mm Hg 80-90 H = 385) O2 SATURATION ARTERIAL (BEAKER) 99.2 % 96.0-97.0 H (test code = 386) HCO3 ARTERIAL (BEAKER) (test code 35 mmol/L 21-29 H = 388) BASE EXCESS ARTERIAL (BEAKER) 11.1 mmol/L -2.0-3.0 H (test code = 387) PATIENT TEMPERATURE (BEAKER) 36.6 (test code = 1818) FIO2 (BEAKER) (test code = 1819) 21.0 [id number] 04:43:39 Test Item Value Reference Range Interpretation Comments PARTIAL THROMBOPLASTIN TIME 44.7 seconds 22.5-36.0 H (BEAKER) (test code = 760) PROTHROMBIN [id number] 04:42:01 Test Item Value Reference Range Interpretation Comments PROTIME (BEAKER) 15.7 seconds 11.9-14.2 H (test code = 759) INR (BEAKER) (test 1.27 See_Comment [Automat ed message] code = 370) The system [id number] generated this result transmitted ref erence range: <=5.90. The reference range was not used to int erpret this result as normal/abnormal . RECOMMENDED COUMADIN/WARFARIN INR THERAPY RANGESSTANDARD DOSE: 2.0 - 3.0 Includes: PROPHYLAXIS for venous thrombosis, systemic embolization; TREATMENT for venous thrombosis and/or pulmonary embolus.HIGH RISK: Target INR is 2.5-3.5 for patients with mechanical heart valves.CBC W/PLT COUNT & AUTO [id number] 04:18:20 Test Item Value Reference Range Interpretation Comments WHITE BLOOD CELL COUNT (BEAKER) 10.2 K/ L 3.5-10.5 (test code = 775) RED BLOOD CELL COUNT (BEAKER) 3.12 M/ L 4.63-6.08 L (test code = 761) HEMOGLOBIN (BEAKER) (test code = 9.5 GM/DL 13.7-17.5 L 410) HEMATOCRIT (BEAKER) (test code = 28.7 % 40.1-51.0 L 411) MEAN CORPUSCULAR VOLUME (BEAKER) 92.0 fL 79.0-92.2 (test code = 753) MEAN CORPUSCULAR HEMOGLOBIN 30.4 pg 25.7-32.2 (BEAKER) (test code = 751) MEAN CORPUSCULAR HEMOGLOBIN CONC 33.1 GM/DL 32.3-36.5 (BEAKER) (test code = 752) RED CELL DISTRIBUTION WIDTH 17.4 % 11.6-14.4 H (BEAKER) (test code = 412) PLATELET COUNT (BEAKER) (test 367 K/CU MM 150-450 code = 756) MEAN PLATELET VOLUME (BEAKER) 8.8 fL 9.4-12.4 L (test code = 754) NUCLEATED RED BLOOD CELLS 0 /100 WBC 0-0 (BEAKER) (test code = 413) NEUTROPHILS RELATIVE PERCENT 80 % (BEAKER) (test code = 429) LYMPHOCYTES RELATIVE PERCENT 11 % (BEAKER) (test code = 430) MONOCYTES RELATIVE PERCENT 6 % (BEAKER) (test code = 431) EOSINOPHILS RELATIVE PERCENT 2 % (BEAKER) (test code = 432) BASOPHILS RELATIVE PERCENT 0 % (BEAKER) (test code = 437) NEUTROPHILS ABSOLUTE COUNT 8.15 K/ L 1.78-5.38 H (BEAKER) (test code = 670) LYMPHOCYTES ABSOLUTE COUNT 1.13 K/ L 1.32-3.57 L (BEAKER) (test code = 414) MONOCYTES ABSOLUTE COUNT (BEAKER) 0.62 K/ L 0.30-0.82 (test code = 415) EOSINOPHILS ABSOLUTE COUNT 0.17 K/ L 0.04-0.54 (BEAKER) (test code = 416) BASOPHILS ABSOLUTE COUNT (BEAKER) 0.02 K/ L 0.01-0.08 (test code = 417) IMMATURE GRANULOCYTES-RELATIVE 1 % 0-1 PERCENT (BEAKER) (test code = 2801) [id number] 04:12:31 Test Item Value Reference Range Interpretation Comments PHOSPHORUS (BEAKER) (test code = 2.6 mg/dL 2.3-4.7 604) Stitcher Hand ID - DBLACTATE DEHYDROGENASE (LDH)2021-09-28 04:12:31 Test Item Value Reference Range Interpretation Comments LACTATE DEHYDROGENASE (BEAKER) (test 293 U/L 125-220 H code = 635) Stitcher Hand ID - DBCOMPREHENSIVE METABOLIC [id number] 04:12:30 Test Item Value Reference Range Interpretation Comments TOTAL PROTEIN 7.1 gm/dL 6.0-8.3 (BEAKER) (test code = 770) ALBUMIN (BEAKER) 3.7 g/dL 3.5-5.0 (test code = 1145) ALKALINE PHOSPHATASE 189 U/L 40-150 H (BEAKER) (test code = 346) BILIRUBIN TOTAL 0.7 mg/dL 0.2-1.2 (BEAKER) (test code = 377) SODIUM (BEAKER) (test 133 meq/L 136-145 L code = 381) POTASSIUM (BEAKER) 3.3 meq/L 3.5-5.1 L (test code = 379) CHLORIDE (BEAKER) 90 meq/L 98-107 L (test code = 382) CO2 (BEAKER) (test 33 meq/L 22-29 H code = 355) BLOOD UREA NITROGEN 14 mg/dL 7-21 (BEAKER) (test code = 354) CREATININE (BEAKER) 0.65 mg/dL 0.57-1.25 (test code = 358) GLUCOSE RANDOM 145 mg/dL 70-105 H (BEAKER) (test code = 652) CALCIUM (BEAKER) 9.7 mg/dL 8.4-10.2 (test code = 697) AST (SGOT) (BEAKER) 14 U/L 5-34 (test code = 353) ALT (SGPT) (BEAKER) 12 U/L 6-55 (test code = 347) EGFR (BEAKER) (test 130 ESTIMATE D GFR IS code = 1092) mL/min/1.73 sq NOT ACCURA TE m CREATININE CLEARANCE IN PREDICTING GLOMERULAR FILTRATION RATE . ESTIMATED GFR I S NOT APPLICABLE FOR DIALYSIS PATIEN TS. Stitcher Hand ID - [id number] 04:12:30 Test Item Value Reference Range Interpretation Comments MAGNESIUM (BEAKER) (test code = 1.7 mg/dL 1.6-2.6 627) Stitcher Hand ID - DBLACTIC ACID, [id number] 03:56:44 Test Item Value Reference Range Interpretation Comments LACTATE BLOOD ARTERIAL (2) 0.8 mmol/L 0.5-2.2 (BEAKER) (test code = 2874) Stitcher Hand ID - DBOXYGEN SATURATION, [id number] 03:55:47 Test Item Value Reference Range Interpretation Comments O2 SATURATION (MEASURED) (BEAKER) 58.2 % (test code = 1455) BLOOD GAS, [id number] 03:55:46 Test Item Value Reference Range Interpretation Comments PH ARTERIAL (BEAKER) (test code = 7.48 7.35-7.45 H 383) PCO2 ARTERIAL (BEAKER) (test code 50 mm Hg 35-45 H = 384) PO2 ARTERIAL (BEAKER) (test code 70 mm Hg 80-90 L = 385) O2 SATURATION ARTERIAL (BEAKER) 94.9 % 96.0-97.0 L (test code = 386) HCO3 ARTERIAL (BEAKER) (test code 36 mmol/L 21-29 H = 388) BASE EXCESS ARTERIAL (BEAKER) 11.1 mmol/L -2.0-3.0 H (test code = 387) PATIENT TEMPERATURE (BEAKER) 37.0 (test code = 1818) FIO2 (BEAKER) (test code = 1819) 24.0 CALCIUM, [id number] 03:53:22 Test Item Value Reference Range Interpretation Comments CALCIUM IONIZED (BEAKER) (test 1.12 mmol/L 1.12-1.27 code = 698) PH, BLOOD (BEAKER) (test code = 7.48 1810) [id number] 20:56:28 Test Item Value Reference Range Interpretation Comments PARTIAL THROMBOPLASTIN TIME 43.1 seconds 22.5-36.0 H (BEAKER) (test code = 760) RAD, CHEST, 1 VIEW, NON [id number] 20:42:00Reason for exam:->swanShould this be performed at the bedside?->Yes [facility] : 1970 Sex: MFINAL REPORT EXAM/TECHNIQUE: Single view frontal radiograph of the chest. INDICATION: [place]. COMPARISON: 09/27/2021 FINDINGS: Devices/Objects: Right internal jugular pulmonary catheter catheter likely terminates in the proximal interlobar artery. Otherwise stable. Lungs: No new focal consolidation or pleural fluid accumulation. Heart/Mediastinum: Similar cardiomegaly. Osseous: No acuteosseous process. No suspicious osseous lesion. Upper abdomen: Unremarkable. Impression: Right internal jugular pulmonary catheter catheter likely terminates in the proximal interlobar artery. Signed: [facility]lysses Miller [facility] Verified Date/Time: 09/27/2021 20:42:31 OXYGEN SATURATION, [id number] 20:38:06 Test Item Value Reference Range Interpretation Comments O2 SATURATION (MEASURED) (BEAKER) 63.9 % (test code = 1455) [id number] 19:38:40 Test Item Value Reference Range Interpretation Comments PHOSPHORUS (BEAKER) (test code = 2.0 mg/dL 2.3-4.7 L 604) Stitcher Hand ID - [id number] 19:38:39 Test Item Value Reference Range Interpretation Comments MAGNESIUM (BEAKER) (test code = 1.8 mg/dL 1.6-2.6 627) Stitcher Hand ID - DBBASIC METABOLIC [id number] 19:38:38 Test Item Value Reference Range Interpretation Comments SODIUM (BEAKER) 131 meq/L 136-145 L (test code = 381) POTASSIUM (BEAKER) 3.7 meq/L 3.5-5.1 (test code = 379) CHLORIDE (BEAKER) 90 meq/L 98-107 L (test code = 382) CO2 (BEAKER) (test 32 meq/L 22-29 H code = 355) BLOOD UREA NITROGEN 15 mg/dL 7-21 (BEAKER) (test code = 354) CREATININE (BEAKER) 0.64 mg/dL 0.57-1.25 (test code = 358) GLUCOSE RANDOM 133 mg/dL 70-105 H (BEAKER) (test code = 652) CALCIUM (BEAKER) 8.7 mg/dL 8.4-10.2 (test code = 697) EGFR (BEAKER) (test 132 mL/min/1.73 ESTIM ATED GFR IS code = 1092) sq m NOT ACCURATE CREATININE CLEARANCE IN PREDICTING GLOMERULAR FILTRATION RATE . ESTIMATED GFR I S NOT APPLICABLE FOR DIALYSIS PATIEN TS. Stitcher Hand ID - DBCALCIUM, [id number] 18:56:22 Test Item Value Reference Range Interpretation Comments CALCIUM IONIZED (BEAKER) (test 0.99 mmol/L 1.12-1.27 L code = 698) PH, BLOOD (BEAKER) (test code = 7.52 1810) [id number] 14:29:09 Test Item Value Reference Range Interpretation Comments MAGNESIUM (BEAKER) (test code = 1.5 mg/dL 1.6-2.6 L 627) Stitcher Hand ID - FAUZIA [id number] 14:25:36 Test Item Value Reference Range Interpretation Comments PHOSPHORUS (BEAKER) (test code = 1.8 mg/dL 2.3-4.7 L 604) Stitcher Hand ID - FAUZIA [id number] 14:25:35 Test Item Value Reference Range Interpretation Comments MAGNESIUM (BEAKER) (test code = 1.5 mg/dL 1.6-2.6 L 627) Stitcher Hand ID - FAUZIA WBASIC METABOLIC [id number] 14:25:34 Test Item Value Reference Range Interpretation Comments SODIUM (BEAKER) 132 meq/L 136-145 L (test code = 381) POTASSIUM (BEAKER) 3.5 meq/L 3.5-5.1 (test code = 379) CHLORIDE (BEAKER) 91 meq/L 98-107 L (test code = 382) CO2 (BEAKER) (test 32 meq/L 22-29 H code = 355) BLOOD UREA NITROGEN 16 mg/dL 7-21 (BEAKER) (test code = 354) CREATININE (BEAKER) 0.66 mg/dL 0.57-1.25 (test code = 358) GLUCOSE RANDOM 142 mg/dL 70-105 H (BEAKER) (test code = 652) CALCIUM (BEAKER) 8.4 mg/dL 8.4-10.2 (test code = 697) EGFR (BEAKER) (test 128 mL/min/1.73 ESTIM ATED GFR IS code = 1092) sq m NOT ACCURATE CREATININE CLEARANCE IN PREDICTING GLOMERULAR FILTRATION RATE . ESTIMATED GFR I S NOT APPLICABLE FOR DIALYSIS PATIEN TS. Stitcher Hand ID - FAUZIA [id number] 14:19:48 Test Item Value Reference Range Interpretation Comments PARTIAL THROMBOPLASTIN TIME 46.5 seconds 22.5-36.0 H (BEAKER) (test code = 760) CALCIUM, [id number] 13:52:32 Test Item Value Reference Range Interpretation Comments CALCIUM IONIZED (BEAKER) (test 1.06 mmol/L 1.12-1.27 L code = 698) PH, BLOOD (BEAKER) (test code = 7.50 1810) CALCIUM, [id number] 13:52:31 Test Item Value Reference Range Interpretation Comments CALCIUM IONIZED (BEAKER) (test 1.03 mmol/L 1.12-1.27 L code = 698) PH, BLOOD (BEAKER) (test code = 7.50 1810) RAD, CHEST, 1 VIEW, NON [id number] 07:18:00Reason for exam:->s/p LVADShould this be performed at the bedside?->Yes [facility] : 1970 Sex: MFINAL REPORT RAD, CHEST, 1 VIEW, NON DEPT INDICATION: s/p LVAD COMPARISON: Prior day's exam FINDINGS: Portable frontal view of the chest. IMPRESSION: Support Lines: Pacer device and cardiac support hardware is unchanged. [place]-Miky tip overlies the right lower lobar pulmonary artery. PICC tip overlies the atriocaval junction. Lungs and pleura: Trace bilateral effusions. Mild retrocardiac atelectasis. No significant pneumothorax. Heart and mediastinum: Stable contours. Stable surgical changes. Additional findings: None. Signed: Keila Sorto Verified Date/Time: 09/27/2021 07:18:13 HROMBIN TIME/[id number] 05:21:50 Test Item Value Reference Range Interpretation Comments PROTIME (BEAKER) 19.3 seconds 11.9-14.2 H (test code = 759) INR (BEAKER) (test 1.65 See_Comment [Automat ed message] code = 370) The system g4interactive generated this result transmitted ref erence range: <=5.90. The reference range was not used to int erpret this result as normal/abnormal . RECOMMENDED COUMADIN/WARFARIN INR THERAPY RANGESSTANDARD DOSE: 2.0 - 3.0 Includes: PROPHYLAXIS for venous thrombosis, systemic embolization; TREATMENT for venous thrombosis and/or pulmonary embolus.HIGH RISK: Target INR is 2.5-3.5 for patients with mechanical heart valves.LACTATE DEHYDROGENASE (LDH)2021-09-27 05:03:05 Test Item Value Reference Range Interpretation Comments LACTATE DEHYDROGENASE (BEAKER) (test 267 U/L 125-220 H code = 635) Stitcher Hand ID - FAUZIA [id number] 05:03:04 Test Item Value Reference Range Interpretation Comments MAGNESIUM (BEAKER) (test code = 1.9 mg/dL 1.6-2.6 627) Stitcher Hand ID - FAUZIA [id number] 05:03:04 Test Item Value Reference Range Interpretation Comments PHOSPHORUS (BEAKER) (test code = 1.8 mg/dL 2.3-4.7 L 604) Stitcher Hand ID Sal CAGE WCOMPREHENSIVE METABOLIC [id number] 05:03:03 Test Item Value Reference Range Interpretation Comments TOTAL PROTEIN 6.5 gm/dL 6.0-8.3 (BEAKER) (test code = 770) ALBUMIN (BEAKER) 3.5 g/dL 3.5-5.0 (test code = 1145) ALKALINE PHOSPHATASE 178 U/L 40-150 H (BEAKER) (test code = 346) BILIRUBIN TOTAL 0.6 mg/dL 0.2-1.2 (BEAKER) (test code = 377) SODIUM (BEAKER) (test 132 meq/L 136-145 L code = 381) POTASSIUM (BEAKER) 3.2 meq/L 3.5-5.1 L (test code = 379) CHLORIDE (BEAKER) 92 meq/L 98-107 L (test code = 382) CO2 (BEAKER) (test 30 meq/L 22-29 H code = 355) BLOOD UREA NITROGEN 20 mg/dL 7-21 (BEAKER) (test code = 354) CREATININE (BEAKER) 0.69 mg/dL 0.57-1.25 (test code = 358) GLUCOSE RANDOM 128 mg/dL 70-105 H (BEAKER) (test code = 652) CALCIUM (BEAKER) 8.5 mg/dL 8.4-10.2 (test code = 697) AST (SGOT) (BEAKER) 12 U/L 5-34 (test code = 353) ALT (SGPT) (BEAKER) 11 U/L 6-55 (test code = 347) EGFR (BEAKER) (test 121 ESTIMATE D GFR IS code = 1092) mL/min/1.73 sq NOT ACCURA TE m CREATININE CLEARANCE IN PREDICTING GLOMERULAR FILTRATION RATE . ESTIMATED GFR I S NOT APPLICABLE FOR DIALYSIS PATIEN TS. Stitcher Hand ID Sal CAGE WLACTIC ACID, [id number] 04:45:54 Test Item Value Reference Range Interpretation Comments LACTATE BLOOD ARTERIAL (2) 0.8 mmol/L 0.5-2.2 (BEAKER) (test code = 7434) Stitcher Hand ID - FAUZIA WCBC W/PLT COUNT & AUTO [id number] 04:45:53 Test Item Value Reference Range Interpretation Comments WHITE BLOOD CELL COUNT (BEAKER) 7.1 K/ L 3.5-10.5 (test code = 775) RED BLOOD CELL COUNT (BEAKER) 2.79 M/ L 4.63-6.08 L (test code = 761) HEMOGLOBIN (BEAKER) (test code = 8.6 GM/DL 13.7-17.5 L 410) HEMATOCRIT (BEAKER) (test code = 25.3 % 40.1-51.0 L 411) MEAN CORPUSCULAR VOLUME (BEAKER) 90.7 fL 79.0-92.2 (test code = 753) MEAN CORPUSCULAR HEMOGLOBIN 30.8 pg 25.7-32.2 (BEAKER) (test code = 751) MEAN CORPUSCULAR HEMOGLOBIN CONC 34.0 GM/DL 32.3-36.5 (BEAKER) (test code = 752) RED CELL DISTRIBUTION WIDTH 17.6 % 11.6-14.4 H (BEAKER) (test code = 412) PLATELET COUNT (BEAKER) (test 328 K/CU MM 150-450 code = 756) MEAN PLATELET VOLUME (BEAKER) 8.8 fL 9.4-12.4 L (test code = 754) NUCLEATED RED BLOOD CELLS 0 /100 WBC 0-0 (BEAKER) (test code = 413) NEUTROPHILS RELATIVE PERCENT 81 % (BEAKER) (test code = 429) LYMPHOCYTES RELATIVE PERCENT 10 % (BEAKER) (test code = 430) MONOCYTES RELATIVE PERCENT 7 % (BEAKER) (test code = 431) EOSINOPHILS RELATIVE PERCENT 2 % (BEAKER) (test code = 432) BASOPHILS RELATIVE PERCENT 0 % (BEAKER) (test code = 437) NEUTROPHILS ABSOLUTE COUNT 5.73 K/ L 1.78-5.38 H (BEAKER) (test code = 670) LYMPHOCYTES ABSOLUTE COUNT 0.71 K/ L 1.32-3.57 L (BEAKER) (test code = 414) MONOCYTES ABSOLUTE COUNT (BEAKER) 0.47 K/ L 0.30-0.82 (test code = 415) EOSINOPHILS ABSOLUTE COUNT 0.11 K/ L 0.04-0.54 (BEAKER) (test code = 416) BASOPHILS ABSOLUTE COUNT (BEAKER) 0.02 K/ L 0.01-0.08 (test code = 417) IMMATURE GRANULOCYTES-RELATIVE 1 % 0-1 PERCENT (BEAKER) (test code = 2801) OXYGEN SATURATION, [id number] 04:36:53 Test Item Value Reference Range Interpretation Comments O2 SATURATION (MEASURED) (BEAKER) 66.0 % (test code = 1455) CALCIUM, [id number] 04:34:59 Test Item Value Reference Range Interpretation Comments CALCIUM IONIZED (BEAKER) (test 1.06 mmol/L 1.12-1.27 L code = 698) PH, BLOOD (BEAKER) (test code = 7.47 1810) BLOOD GAS, [id number] 04:34:50 Test Item Value Reference Range Interpretation Comments PH ARTERIAL (BEAKER) (test code = 7.47 7.35-7.45 H 383) PCO2 ARTERIAL (BEAKER) (test code 47 mm Hg 35-45 H = 384) PO2 ARTERIAL (BEAKER) (test code = 88 mm Hg 80-90 385) O2 SATURATION ARTERIAL (BEAKER) 97.1 % 96.0-97.0 H (test code = 386) HCO3 ARTERIAL (BEAKER) (test code 33 mmol/L 21-29 H = 388) BASE EXCESS ARTERIAL (BEAKER) 8.7 mmol/L -2.0-3.0 H (test code = 387) PATIENT TEMPERATURE (BEAKER) (test 37.0 code = 1818) FIO2 (BEAKER) (test code = 1819) 32.0 [id number] 21:36:34 Test Item Value Reference Range Interpretation Comments PHOSPHORUS (BEAKER) (test code = 2.5 mg/dL 2.3-4.7 604) Stitcher Hand ID - DBBASIC METABOLIC [id number] 21:36:33 Test Item Value Reference Range Interpretation Comments SODIUM (BEAKER) 130 meq/L 136-145 L (test code = 381) POTASSIUM (BEAKER) 3.4 meq/L 3.5-5.1 L (test code = 379) CHLORIDE (BEAKER) 92 meq/L 98-107 L (test code = 382) CO2 (BEAKER) (test 28 meq/L 22-29 code = 355) BLOOD UREA NITROGEN 25 mg/dL 7-21 H (BEAKER) (test code = 354) CREATININE (BEAKER) 0.79 mg/dL 0.57-1.25 (test code = 358) GLUCOSE RANDOM 126 mg/dL 70-105 H (BEAKER) (test code = 652) CALCIUM (BEAKER) 8.7 mg/dL 8.4-10.2 (test code = 697) EGFR (BEAKER) (test 104 mL/min/1.73 ESTIM ATED GFR IS code = 1092) sq m NOT ACCURATE CREATININE CLEARANCE IN PREDICTING GLOMERULAR FILTRATION RATE . ESTIMATED GFR I S NOT APPLICABLE FOR DIALYSIS PATIEN TS. Stitcher Hand ID - [id number] 21:36:33 Test Item Value Reference Range Interpretation Comments MAGNESIUM (BEAKER) (test code = 2.0 mg/dL 1.6-2.6 627) Stitcher Hand ID - DBCALCIUM, [id number] 20:51:38 Test Item Value Reference Range Interpretation Comments CALCIUM IONIZED (BEAKER) (test 1.07 mmol/L 1.12-1.27 L code = 698) PH, BLOOD (BEAKER) (test code = 7.49 1810) [id number] 17:16:46 Test Item Value Reference Range Interpretation Comments MAGNESIUM (BEAKER) (test code = 1.9 mg/dL 1.6-2.6 627) Stitcher Hand ID - [id number] 17:16:46 Test Item Value Reference Range Interpretation Comments PHOSPHORUS (BEAKER) (test code = 2.9 mg/dL 2.3-4.7 604) Stitcher Hand ID - DBBASIC METABOLIC [id number] 17:16:45 Test Item Value Reference Range Interpretation Comments SODIUM (BEAKER) 129 meq/L 136-145 L (test code = 381) POTASSIUM (BEAKER) 3.2 meq/L 3.5-5.1 L (test code = 379) CHLORIDE (BEAKER) 91 meq/L 98-107 L (test code = 382) CO2 (BEAKER) (test 28 meq/L 22-29 code = 355) BLOOD UREA NITROGEN 29 mg/dL 7-21 H (BEAKER) (test code = 354) CREATININE (BEAKER) 0.92 mg/dL 0.57-1.25 (test code = 358) GLUCOSE RANDOM 145 mg/dL 70-105 H (BEAKER) (test code = 652) CALCIUM (BEAKER) 8.3 mg/dL 8.4-10.2 L (test code = 697) EGFR (BEAKER) (test 87 mL/min/1.73 ESTIMA NEELA GFR IS code = 1092) sq m NOT ACCURATE CREATININE CLEARANCE IN PREDICTING GLOMERULAR FILTRATION RATE . ESTIMATED GFR I S NOT APPLICABLE FOR DIALYSIS PATIEN TS. Stitcher Hand ID - [id number] 17:16:45 Test Item Value Reference Range Interpretation Comments SODIUM (BEAKER) (test code = 381) 129 meq/L 136-145 L POTASSIUM (BEAKER) (test code = 3.2 meq/L 3.5-5.1 L 379) CHLORIDE (BEAKER) (test code = 382) 91 meq/L 98-107 L CO2 (BEAKER) (test code = 355) 28 meq/L 22-29 CALCIUM, [id number] 17:01:54 Test Item Value Reference Range Interpretation Comments CALCIUM IONIZED (BEAKER) (test 1.05 mmol/L 1.12-1.27 L code = 698) PH, BLOOD (BEAKER) (test code = 7.43 1810) [id number] 12:25:43 Test Item Value Reference Range Interpretation Comments MAGNESIUM (BEAKER) (test code = 1.9 mg/dL 1.6-2.6 627) Stitcher Hand ID - AUNDREAAYA [id number] 12:25:43 Test Item Value Reference Range Interpretation Comments PHOSPHORUS (BEAKER) (test code = 3.9 mg/dL 2.3-4.7 604) Stitcher Hand ID - PINISHANT LBASIC METABOLIC [id number] 12:25:42 Test Item Value Reference Range Interpretation Comments SODIUM (BEAKER) 128 meq/L 136-145 L (test code = 381) POTASSIUM (BEAKER) 3.2 meq/L 3.5-5.1 L (test code = 379) CHLORIDE (BEAKER) 89 meq/L 98-107 L (test code = 382) CO2 (BEAKER) (test 27 meq/L 22-29 code = 355) BLOOD UREA NITROGEN 31 mg/dL 7-21 H (BEAKER) (test code = 354) CREATININE (BEAKER) 1.11 mg/dL 0.57-1.25 (test code = 358) GLUCOSE RANDOM 135 mg/dL 70-105 H (BEAKER) (test code = 652) CALCIUM (BEAKER) 8.4 mg/dL 8.4-10.2 (test code = 697) EGFR (BEAKER) (test 70 mL/min/1.73 ESTIMA NEELA GFR IS code = 1092) sq m NOT ACCURATE CREATININE CLEARANCE IN PREDICTING GLOMERULAR FILTRATION RATE . ESTIMATED GFR I S NOT APPLICABLE FOR DIALYSIS PATIEN TS. Stitcher Hand ID - SOCO LCALCIUM, [id number] 12:01:25 Test Item Value Reference Range Interpretation Comments CALCIUM IONIZED (BEAKER) (test 1.03 mmol/L 1.12-1.27 L code = 698) PH, BLOOD (BEAKER) (test code = 7.47 1810) [id number] 08:34:43 Test Item Value Reference Range Interpretation Comments MAGNESIUM (BEAKER) (test code = 1.9 mg/dL 1.6-2.6 627) Stitcher Hand ID - SOCO [id number] 08:34:43 Test Item Value Reference Range Interpretation Comments PHOSPHORUS (BEAKER) (test code = 5.5 mg/dL 2.3-4.7 H 604) Stitcher Hand ID - SOCO LRAD, CHEST, 1 VIEW, NON [id number] 07:32:00Reason for exam:->s/p LVADShould this be performed at the bedside?->Yes [facility] 1970 Sex: MFINAL REPORT RAD, CHEST, 1 VIEW, NON DEPT INDICATION: s/p LVAD COMPARISON: Prior day's exam FINDINGS: Portable frontal view of the chest. IMPRESSION: Support Lines: Pacer device and cardiac support hardware is unchanged. [place]-Miky tip overlies the right lower lobar pulmonary artery. PICC tip overlies the atriocaval junction. Lungs and pleura: Trace bilateral effusions. Mild retrocardiac atelectasis. No significant pneumothorax. Heart and mediastinum: Stable contours. Stable surgical changes. Additional findings: None. Signed: Keila Sorto Verified Date/Time: 09/26/2021 07:32:33 REHENSIVE METABOLIC [id number] 04:53:11 Test Item Value Reference Range Interpretation Comments TOTAL PROTEIN 6.3 gm/dL 6.0-8.3 (BEAKER) (test code = 770) ALBUMIN (BEAKER) 3.3 g/dL 3.5-5.0 L (test code = 1145) ALKALINE PHOSPHATASE 180 U/L 40-150 H (BEAKER) (test code = 346) BILIRUBIN TOTAL 0.7 mg/dL 0.2-1.2 (BEAKER) (test code = 377) SODIUM (BEAKER) (test 123 meq/L 136-145 L code = 381) POTASSIUM (BEAKER) 3.5 meq/L 3.5-5.1 (test code = 379) CHLORIDE (BEAKER) 90 meq/L 98-107 L (test code = 382) CO2 (BEAKER) (test 22 meq/L 22-29 code = 355) BLOOD UREA NITROGEN 40 mg/dL 7-21 H (BEAKER) (test code = 354) CREATININE (BEAKER) 1.82 mg/dL 0.57-1.25 H (test code = 358) GLUCOSE RANDOM 140 mg/dL 70-105 H (BEAKER) (test code = 652) CALCIUM (BEAKER) 8.4 mg/dL 8.4-10.2 (test code = 697) AST (SGOT) (BEAKER) 13 U/L 5-34 (test code = 353) ALT (SGPT) (BEAKER) 14 U/L 6-55 (test code = 347) EGFR (BEAKER) (test 40 mL/min/1.73 ESTIMA NEELA GFR IS code = 1092) sq m NOT ACCURATE CREATININE CLEARANCE IN PREDICTING GLOMERULAR FILTRATION RATE . ESTIMATED GFR I S NOT APPLICABLE FOR DIALYSIS PATIEN TS. Stitcher Hand ID Sal WAN LLACTATE DEHYDROGENASE (LDH)2021-09-26 04:53:11 Test Item Value Reference Range Interpretation Comments LACTATE DEHYDROGENASE (BEAKER) (test 284 U/L 125-220 H code = 635) Stitcher Hand ID Sal WAN LPROTHROMBIN [id number] 04:52:13 Test Item Value Reference Range Interpretation Comments PROTIME (BEAKER) 23.8 seconds 11.9-14.2 H (test code = 759) INR (BEAKER) (test 2.15 See_Comment [Automat ed message] code = 370) The system g4interactive generated this result transmitted ref erence range: <=5.90. The reference range was not used to int erpret this result as normal/abnormal . RECOMMENDED COUMADIN/WARFARIN INR THERAPY RANGESSTANDARD DOSE: 2.0 - 3.0 Includes: PROPHYLAXIS for venous thrombosis, systemic embolization; TREATMENT for venous thrombosis and/or pulmonary embolus.HIGH RISK: Target INR is 2.5-3.5 for patients with mechanical heart valves.LACTIC ACID, [id number] 04:43:30 Test Item Value Reference Range Interpretation Comments LACTATE BLOOD ARTERIAL (2) 0.9 mmol/L 0.5-2.2 (BEAKER) (test code = 2874) Stitcher Hand ID Sal WAN LCBC W/PLT COUNT & AUTO [id number] 04:29:40 Test Item Value Reference Range Interpretation Comments WHITE BLOOD CELL COUNT (BEAKER) 12.7 K/ L 3.5-10.5 H (test code = 775) RED BLOOD CELL COUNT (BEAKER) 2.84 M/ L 4.63-6.08 L (test code = 761) HEMOGLOBIN (BEAKER) (test code = 8.7 GM/DL 13.7-17.5 L 410) HEMATOCRIT (BEAKER) (test code = 25.5 % 40.1-51.0 L 411) MEAN CORPUSCULAR VOLUME (BEAKER) 89.8 fL 79.0-92.2 (test code = 753) MEAN CORPUSCULAR HEMOGLOBIN 30.6 pg 25.7-32.2 (BEAKER) (test code = 751) MEAN CORPUSCULAR HEMOGLOBIN CONC 34.1 GM/DL 32.3-36.5 (BEAKER) (test code = 752) RED CELL DISTRIBUTION WIDTH 17.5 % 11.6-14.4 H (BEAKER) (test code = 412) PLATELET COUNT (BEAKER) (test 380 K/CU MM 150-450 code = 756) MEAN PLATELET VOLUME (BEAKER) 8.8 fL 9.4-12.4 L (test code = 754) NUCLEATED RED BLOOD CELLS 0 /100 WBC 0-0 (BEAKER) (test code = 413) NEUTROPHILS RELATIVE PERCENT 89 % (BEAKER) (test code = 429) LYMPHOCYTES RELATIVE PERCENT 4 % (BEAKER) (test code = 430) MONOCYTES RELATIVE PERCENT 4 % (BEAKER) (test code = 431) EOSINOPHILS RELATIVE PERCENT 1 % (BEAKER) (test code = 432) BASOPHILS RELATIVE PERCENT 0 % (BEAKER) (test code = 437) NEUTROPHILS ABSOLUTE COUNT 11.31 K/ L 1.78-5.38 H (BEAKER) (test code = 670) LYMPHOCYTES ABSOLUTE COUNT 0.55 K/ L 1.32-3.57 L (BEAKER) (test code = 414) MONOCYTES ABSOLUTE COUNT (BEAKER) 0.55 K/ L 0.30-0.82 (test code = 415) EOSINOPHILS ABSOLUTE COUNT 0.12 K/ L 0.04-0.54 (BEAKER) (test code = 416) BASOPHILS ABSOLUTE COUNT (BEAKER) 0.02 K/ L 0.01-0.08 (test code = 417) IMMATURE GRANULOCYTES-RELATIVE 1 % 0-1 PERCENT (BEAKER) (test code = 2801) BLOOD GAS, [id number] 04:23:51 Test Item Value Reference Range Interpretation Comments PH ARTERIAL (BEAKER) (test code = 7.37 7.35-7.45 383) PCO2 ARTERIAL (BEAKER) (test code 46 mm Hg 35-45 H = 384) PO2 ARTERIAL (BEAKER) (test code 87 mm Hg 80-90 = 385) O2 SATURATION ARTERIAL (BEAKER) 96.3 % 96.0-97.0 (test code = 386) HCO3 ARTERIAL (BEAKER) (test code 26 mmol/L 21-29 = 388) BASE EXCESS ARTERIAL (BEAKER) -0.1 mmol/L -2.0-3.0 (test code = 387) PATIENT TEMPERATURE (BEAKER) 37.0 (test code = 1818) FIO2 (BEAKER) (test code = 1819) 28.0 CALCIUM, [id number] 04:23:51 Test Item Value Reference Range Interpretation Comments CALCIUM IONIZED (BEAKER) (test 1.06 mmol/L 1.12-1.27 L code = 698) PH, BLOOD (BEAKER) (test code = 7.37 1810) OXYGEN SATURATION, [id number] 04:23:04 Test Item Value Reference Range Interpretation Comments O2 SATURATION (MEASURED) (BEAKER) 69.0 % (test code = 1455) [id number] 00:26:15 Test Item Value Reference Range Interpretation Comments PHOSPHORUS (BEAKER) (test code = 6.2 mg/dL 2.3-4.7 H 604) Stitcher Hand ID - PIAYA LBASIC METABOLIC [id number] 00:26:14 Test Item Value Reference Range Interpretation Comments SODIUM (BEAKER) 122 meq/L 136-145 L (test code = 381) POTASSIUM (BEAKER) 3.3 meq/L 3.5-5.1 L (test code = 379) CHLORIDE (BEAKER) 90 meq/L 98-107 L (test code = 382) CO2 (BEAKER) (test 21 meq/L 22-29 L code = 355) BLOOD UREA NITROGEN 40 mg/dL 7-21 H (BEAKER) (test code = 354) CREATININE (BEAKER) 2.17 mg/dL 0.57-1.25 H (test code = 358) GLUCOSE RANDOM 134 mg/dL 70-105 H (BEAKER) (test code = 652) CALCIUM (BEAKER) 8.2 mg/dL 8.4-10.2 L (test code = 697) EGFR (BEAKER) (test 32 mL/min/1.73 ESTIMA NEELA GFR IS code = 1092) sq m NOT ACCURATE CREATININE CLEARANCE IN PREDICTING GLOMERULAR FILTRATION RATE . ESTIMATED GFR I S NOT APPLICABLE FOR DIALYSIS PATIEN TS. Stitcher Hand ID - PIAYA [id number] 00:26:14 Test Item Value Reference Range Interpretation Comments MAGNESIUM (BEAKER) (test code = 1.9 mg/dL 1.6-2.6 627) Stitcher Hand ID - SOCO LCALCIUM, [id number] 00:07:46 Test Item Value Reference Range Interpretation Comments CALCIUM IONIZED (BEAKER) (test 1.05 mmol/L 1.12-1.27 L code = 698) PH, BLOOD (BEAKER) (test code = 7.40 1810) BASIC METABOLIC [id number] 21:04:05 Test Item Value Reference Range Interpretation Comments SODIUM (BEAKER) 120 meq/L 136-145 LL (test code = 381) POTASSIUM (BEAKER) 4.1 meq/L 3.5-5.1 (test code = 379) CHLORIDE (BEAKER) 91 meq/L 98-107 L (test code = 382) CO2 (BEAKER) (test 20 meq/L 22-29 L code = 355) BLOOD UREA NITROGEN 43 mg/dL 7-21 H (BEAKER) (test code = 354) CREATININE (BEAKER) 2.67 mg/dL 0.57-1.25 H (test code = 358) GLUCOSE RANDOM 125 mg/dL 70-105 H (BEAKER) (test code = 652) CALCIUM (BEAKER) 8.1 mg/dL 8.4-10.2 L (test code = 697) EGFR (BEAKER) (test 25 mL/min/1.73 ESTIMA NEELA GFR IS code = 1092) sq m NOT ACCURATE CREATININE CLEARANCE IN PREDICTING GLOMERULAR FILTRATION RATE . ESTIMATED GFR I S NOT APPLICABLE FOR DIALYSIS PATIEN TS. Stitcher Hand ID - SO [id number] 21:02:02 Test Item Value Reference Range Interpretation Comments MAGNESIUM (BEAKER) (test code = 2.0 mg/dL 1.6-2.6 627) Stitcher Hand ID - SO MBLOOD GAS, [id number] 20:43:50 Test Item Value Reference Range Interpretation Comments PH ARTERIAL (BEAKER) (test code = 7.35 7.35-7.45 383) PCO2 ARTERIAL (BEAKER) (test code 39 mm Hg 35-45 = 384) PO2 ARTERIAL (BEAKER) (test code 152 mm Hg 80-90 H = 385) O2 SATURATION ARTERIAL (BEAKER) 98.8 % 96.0-97.0 H (test code = 386) HCO3 ARTERIAL (BEAKER) (test code 20 mmol/L 21-29 L = 388) BASE EXCESS ARTERIAL (BEAKER) -4.6 mmol/L -2.0-3.0 L (test code = 387) PATIENT TEMPERATURE (BEAKER) 38.0 (test code = 1818) FIO2 (BEAKER) (test code = 1819) 28.0 CALCIUM, [id number] 20:43:50 Test Item Value Reference Range Interpretation Comments CALCIUM IONIZED (BEAKER) (test 1.07 mmol/L 1.12-1.27 L code = 698) PH, BLOOD (BEAKER) (test code = 7.36 1810) OXYGEN SATURATION, [id number] 20:43:38 Test Item Value Reference Range Interpretation Comments O2 SATURATION (MEASURED) (BEAKER) 73.8 % (test code = 1455) BASIC METABOLIC [id number] 18:41:20 Test Item Value Reference Range Interpretation Comments SODIUM (BEAKER) 121 meq/L 136-145 L (test code = 381) POTASSIUM (BEAKER) 4.6 meq/L 3.5-5.1 (test code = 379) CHLORIDE (BEAKER) 90 meq/L 98-107 L (test code = 382) CO2 (BEAKER) (test 20 meq/L 22-29 L code = 355) BLOOD UREA NITROGEN 42 mg/dL 7-21 H (BEAKER) (test code = 354) CREATININE (BEAKER) 2.74 mg/dL 0.57-1.25 H (test code = 358) GLUCOSE RANDOM 132 mg/dL 70-105 H (BEAKER) (test code = 652) CALCIUM (BEAKER) 8.1 mg/dL 8.4-10.2 L (test code = 697) EGFR (BEAKER) (test 25 mL/min/1.73 ESTIMA NEELA GFR IS code = 1092) sq m NOT ACCURATE CREATININE CLEARANCE IN PREDICTING GLOMERULAR FILTRATION RATE . ESTIMATED GFR I S NOT APPLICABLE FOR DIALYSIS PATIEN TS. Stitcher Hand ID - SO [id number] 18:37:01 Test Item Value Reference Range Interpretation Comments PHOSPHORUS (BEAKER) (test code = 7.1 mg/dL 2.3-4.7 H 604) Stitcher Hand ID - SO [id number] 18:37:00 Test Item Value Reference Range Interpretation Comments MAGNESIUM (BEAKER) (test code = 2.0 mg/dL 1.6-2.6 627) Stitcher Hand ID - SO MCALCIUM, [id number] 17:46:37 Test Item Value Reference Range Interpretation Comments CALCIUM IONIZED (BEAKER) (test 1.05 mmol/L 1.12-1.27 L code = 698) PH, BLOOD (BEAKER) (test code = 7.34 1810) CALCIUM, [id number] 11:46:00 Test Item Value Reference Range Interpretation Comments CALCIUM IONIZED (BEAKER) (test 1.06 mmol/L 1.12-1.27 L code = 698) PH, BLOOD (BEAKER) (test code = 7.36 1810) OXYGEN SATURATION, [id number] 11:40:48 Test Item Value Reference Range Interpretation Comments O2 SATURATION (MEASURED) (BEAKER) 68.5 % (test code = 1455) RAD, CHEST, 1 VIEW, NON [id number] 11:18:00Reason for exam:->PA swan catheter placementShould this be performed at the bedside?->Yes [facility] : 1970 Sex: MFINAL REPORT RAD, CHEST, 1 VIEW, NON DEPT INDICATION: PA swan catheter placement COMPARISON: Prior day's exam FINDINGS: Portable frontal view of the chest. IMPRESSION: Support Lines: Pacer device and cardiac support hardware is unchanged. [place] tip overlies the right lower lobar pulmonary artery PICC tip overlies the atriocaval junction. Lungs and pleura: Trace bilateral effusions. Unchanged diffuse interstitial thickening, representing singly or in combination, interstitial edema and/or pneumonitis. No significant pneumothorax. Heart and mediastinum: Stable contours. Stable surgical changes. Additional findings: None. Signed: Keila Sorto Verified Date/Time: 09/25/2021 11:18:58 Reading Location: [facility] Radiology Reading Room MAGNESIUM 2021-09-25 10:32:27 Test Item Value Reference Range Interpretation Comments MAGNESIUM (BEAKER) (test code = 1.9 mg/dL 1.6-2.6 627) Stitcher Hand ID - SO [id number] 10:32:27 Test Item Value Reference Range Interpretation Comments PHOSPHORUS (BEAKER) (test code = 7.3 mg/dL 2.3-4.7 H 604) Stitcher Hand ID - SO MLACTATE DEHYDROGENASE (LDH)2021-09-25 10:32:26 Test Item Value Reference Range Interpretation Comments LACTATE DEHYDROGENASE (BEAKER) (test 280 U/L 125-220 H code = 635) Stitcher Hand ID - SO MBASIC METABOLIC [id number] 09:33:15 Test Item Value Reference Range Interpretation Comments SODIUM (BEAKER) 120 meq/L 136-145 LL (test code = 381) POTASSIUM (BEAKER) 4.7 meq/L 3.5-5.1 (test code = 379) CHLORIDE (BEAKER) 89 meq/L 98-107 L (test code = 382) CO2 (BEAKER) (test 20 meq/L 22-29 L code = 355) BLOOD UREA NITROGEN 37 mg/dL 7-21 H (BEAKER) (test code = 354) CREATININE (BEAKER) 2.68 mg/dL 0.57-1.25 H (test code = 358) GLUCOSE RANDOM 169 mg/dL 70-105 H (BEAKER) (test code = 652) CALCIUM (BEAKER) 8.1 mg/dL 8.4-10.2 L (test code = 697) EGFR (BEAKER) (test 25 mL/min/1.73 ESTIMA NEELA GFR IS code = 1092) sq m NOT ACCURATE CREATININE CLEARANCE IN PREDICTING GLOMERULAR FILTRATION RATE . ESTIMATED GFR I S NOT APPLICABLE FOR DIALYSIS PATIEN TS. Stitcher Hand ID - SO [id number] 09:14:43 Test Item Value Reference Range Interpretation Comments PHOSPHORUS (BEAKER) (test code = 7.2 mg/dL 2.3-4.7 H 604) Stitcher Hand ID - SO [id number] 09:14:42 Test Item Value Reference Range Interpretation Comments MAGNESIUM (BEAKER) (test code = 2.0 mg/dL 1.6-2.6 627) Stitcher Hand ID - SO MLACTIC ACID, [id number] 08:44:37 Test Item Value Reference Range Interpretation Comments LACTATE BLOOD VENOUS 0.87 mmol/L 0.50-2.20 Specime n slightly (2) (BEAKER) (test hemolyzed code = 2872) Stitcher Hand ID - SO MCALCIUM, [id number] 08:39:11 Test Item Value Reference Range Interpretation Comments CALCIUM IONIZED (BEAKER) (test 1.03 mmol/L 1.12-1.27 L code = 698) PH, BLOOD (BEAKER) (test code = 7.30 1810) OXYGEN SATURATION, [id number] 08:38:32 Test Item Value Reference Range Interpretation Comments O2 SATURATION (MEASURED) (BEAKER) 66.4 % (test code = 1455) RAD, CHEST, 1 VIEW, NON [id number] 07:34:00Reason for exam:->s/p LVADShould this be performed at the bedside?->Yes [facility] 1970 Sex: MFINAL REPORT RAD, CHEST, 1 VIEW, NON DEPT INDICATION: s/p LVAD COMPARISON: Prior day's exam FINDINGS: Portable frontal view of the chest. IMPRESSION: Support Lines: Pacer device and cardiac support hardware is unchanged. PICC tip overlies the atriocaval junction. Lungs and pleura: Trace bilateral effusions. Unchanged diffuse interstitial thickening, representing singly or in combination, interstitial edema and/or pneumonitis. No significant pneumothorax. Heart and mediastinum: Stablecontours. Stable surgical changes. Additional findings: None. Signed: Keila Sorto Verified Date/Time: 09/25/2021 07:34:11 Reading Location: [facility] Radiology Reading Room IUM, [id number] 07:28:51 Test Item Value Reference Range Interpretation Comments CALCIUM IONIZED (BEAKER) (test 1.05 mmol/L 1.12-1.27 L code = 698) PH, BLOOD (BEAKER) (test code = 7.24 1810) OXYGEN SATURATION, [id number] 06:40:45 Test Item Value Reference Range Interpretation Comments O2 SATURATION (MEASURED) (BEAKER) 76.2 % (test code = 1455) TSH/FREE T4 IF [id number] 06:36:38 Test Item Value Reference Range Interpretation Comments THYROID STIMULATING HORMONE 3.953 uIU/mL 0.350-4.940 (BEAKER) (test code = 772) Stitcher Hand ID - SO [id number] 06:11:43 Test Item Value Reference Range Interpretation Comments PROTIME (BEAKER) (test 29.1 seconds 11.9-14.2 H code = 759) INR (BEAKER) (test 2.78 See_Comment [Automat ed code = 370) message] The sy stem which generated this result transmitted reference range : <=5.90. The reference range was not used to interpret this result as normal/abnormal . PARTIAL THROMBOPLASTIN 38.8 seconds 22.5-36.0 H TIME (BEAKER) (test code = 760) RECOMMENDED COUMADIN/WARFARIN INR THERAPY RANGESSTANDARD DOSE: 2.0 - 3.0 Includes: PROPHYLAXIS for venous thrombosis, systemic embolization; TREATMENT for venous thrombosis and/or pulmonary embolus.HIGH RISK: Target INR is 2.5-3.5 for patients with mechanical heart valves.PROTHROMBIN [id number] 06:11:14 Test Item Value Reference Range Interpretation Comments PROTIME (BEAKER) 29.1 seconds 11.9-14.2 H (test code = 759) INR (BEAKER) (test 2.78 See_Comment [Automat ed message] code = 370) The system g4interactive generated this result transmitted ref erence range: <=5.90. The reference range was not used to int erpret this result as normal/abnormal . RECOMMENDED COUMADIN/WARFARIN INR THERAPY RANGESSTANDARD DOSE: 2.0 - 3.0 Includes: PROPHYLAXIS for venous thrombosis, systemic embolization; TREATMENT for venous thrombosis and/or pulmonary embolus.HIGH RISK: Target INR is 2.5-3.5 for patients with mechanical heart valves.CBC W/PLT COUNT & AUTO [id number] 06:08:18 Test Item Value Reference Range Interpretation Comments WHITE BLOOD CELL COUNT (BEAKER) 12.2 K/ L 3.5-10.5 H (test code = 775) RED BLOOD CELL COUNT (BEAKER) 2.58 M/ L 4.63-6.08 L (test code = 761) HEMOGLOBIN (BEAKER) (test code = 7.9 GM/DL 13.7-17.5 L 410) HEMATOCRIT (BEAKER) (test code = 24.7 % 40.1-51.0 L 411) MEAN CORPUSCULAR VOLUME (BEAKER) 95.7 fL 79.0-92.2 H (test code = 753) MEAN CORPUSCULAR HEMOGLOBIN 30.6 pg 25.7-32.2 (BEAKER) (test code = 751) MEAN CORPUSCULAR HEMOGLOBIN CONC 32.0 GM/DL 32.3-36.5 L (BEAKER) (test code = 752) RED CELL DISTRIBUTION WIDTH 18.4 % 11.6-14.4 H (BEAKER) (test code = 412) PLATELET COUNT (BEAKER) (test 415 K/CU MM 150-450 code = 756) MEAN PLATELET VOLUME (BEAKER) 9.2 fL 9.4-12.4 L (test code = 754) NUCLEATED RED BLOOD CELLS 0 /100 WBC 0-0 (BEAKER) (test code = 413) NEUTROPHILS RELATIVE PERCENT 87 % (BEAKER) (test code = 429) LYMPHOCYTES RELATIVE PERCENT 6 % (BEAKER) (test code = 430) MONOCYTES RELATIVE PERCENT 4 % (BEAKER) (test code = 431) EOSINOPHILS RELATIVE PERCENT 1 % (BEAKER) (test code = 432) BASOPHILS RELATIVE PERCENT 0 % (BEAKER) (test code = 437) NEUTROPHILS ABSOLUTE COUNT 10.66 K/ L 1.78-5.38 H (BEAKER) (test code = 670) LYMPHOCYTES ABSOLUTE COUNT 0.73 K/ L 1.32-3.57 L (BEAKER) (test code = 414) MONOCYTES ABSOLUTE COUNT (BEAKER) 0.47 K/ L 0.30-0.82 (test code = 415) EOSINOPHILS ABSOLUTE COUNT 0.13 K/ L 0.04-0.54 (BEAKER) (test code = 416) BASOPHILS ABSOLUTE COUNT (BEAKER) 0.02 K/ L 0.01-0.08 (test code = 417) IMMATURE GRANULOCYTES-RELATIVE 2 % 0-1 H PERCENT (BEAKER) (test code = 2801) LACTIC ACID, [id number] 06:03:34 Test Item Value Reference Range Interpretation Comments LACTATE BLOOD 1.2 mmol/L 0.5-2.2 Specimen sligh tly ARTERIAL (2) (BEAKER) hemoly zed (test code = 2874) Stitcher Hand ID - SO OMPREHENSIVE METABOLIC [id number] 02:44:21 Test Item Value Reference Range Interpretation Comments TOTAL PROTEIN 6.0 gm/dL 6.0-8.3 (BEAKER) (test code = 770) ALBUMIN (BEAKER) 3.1 g/dL 3.5-5.0 L (test code = 1145) ALKALINE PHOSPHATASE 173 U/L 40-150 H (BEAKER) (test code = 346) BILIRUBIN TOTAL 0.5 mg/dL 0.2-1.2 (BEAKER) (test code = 377) SODIUM (BEAKER) (test 122 meq/L 136-145 L code = 381) POTASSIUM (BEAKER) 4.6 meq/L 3.5-5.1 (test code = 379) CHLORIDE (BEAKER) 91 meq/L 98-107 L (test code = 382) CO2 (BEAKER) (test 21 meq/L 22-29 L code = 355) BLOOD UREA NITROGEN 35 mg/dL 7-21 H (BEAKER) (test code = 354) CREATININE (BEAKER) 2.65 mg/dL 0.57-1.25 H (test code = 358) GLUCOSE RANDOM 104 mg/dL 70-105 (BEAKER) (test code = 652) CALCIUM (BEAKER) 7.9 mg/dL 8.4-10.2 L (test code = 697) AST (SGOT) (BEAKER) 15 U/L 5-34 (test code = 353) ALT (SGPT) (BEAKER) 14 U/L 6-55 (test code = 347) EGFR (BEAKER) (test 26 mL/min/1.73 ESTIMA NEELA GFR IS code = 1092) sq m NOT ACCURATE CREATININE CLEARANCE IN PREDICTING GLOMERULAR FILTRATION RATE . ESTIMATED GFR I S NOT APPLICABLE FOR DIALYSIS PATIEN TS. Stitcher Hand ID - BSPOCT-GLUCOSE [id number] 19:54:14 Test Item Value Reference Range Interpretation Comments POC-GLUCOSE METER 108 mg/dL 70-110 : TESTED A T [facility] 6720 (BEAKER) (test code = [place], 1538) [address]: Stitcher Hand/Techni ebenezer ID = [id number] for Ca zaubon, Samantha SODIUM, RANDOM [id number] 17:44:14 Test Item Value Reference Range Interpretation Comments SODIUM URINE (BEAKER) (test code = < meq/L 243) Reference Range: No NormalsOperator ID - BSUREA NITROGEN, RANDOM [id number] 17:38:15 Test Item Value Reference Range Interpretation Comments UREA NITROGEN URINE (BEAKER) (test 187 mg/dL code = 538) Reference Range: No NormalsOperator ID - BSPROTEIN, RANDOM [id number] 17:38:14 Test Item Value Reference Range Interpretation Comments PROTEIN, URINE (BEAKER) (test code = 45 mg/dL 0-14 H 1569) Stitcher Hand ID - BSCREATININE, RANDOM [id number] 17:38:13 Test Item Value Reference Range Interpretation Comments CREATININE URINE (BEAKER) (test 134.7 mg/dL code = 375) Reference Range: No NormalsOperator ID - [id number] 17:32:34 Test Item Value Reference Range Interpretation Comments PHOSPHORUS (BEAKER) (test code = 5.7 mg/dL 2.3-4.7 H 604) Stitcher Hand ID - [id number] 17:32:33 Test Item Value Reference Range Interpretation Comments MAGNESIUM (BEAKER) (test code = 2.0 mg/dL 1.6-2.6 627) Stitcher Hand ID - BSBASIC METABOLIC [id number] 17:32:32 Test Item Value Reference Range Interpretation Comments SODIUM (BEAKER) 121 meq/L 136-145 L (test code = 381) POTASSIUM (BEAKER) 4.6 meq/L 3.5-5.1 (test code = 379) CHLORIDE (BEAKER) 89 meq/L 98-107 L (test code = 382) CO2 (BEAKER) (test 23 meq/L 22-29 code = 355) BLOOD UREA NITROGEN 30 mg/dL 7-21 H (BEAKER) (test code = 354) CREATININE (BEAKER) 2.18 mg/dL 0.57-1.25 H (test code = 358) GLUCOSE RANDOM 107 mg/dL 70-105 H (BEAKER) (test code = 652) CALCIUM (BEAKER) 8.5 mg/dL 8.4-10.2 (test code = 697) EGFR (BEAKER) (test 32 mL/min/1.73 ESTIMA NEELA GFR IS code = 1092) sq m NOT ACCURATE CREATININE CLEARANCE IN PREDICTING GLOMERULAR FILTRATION RATE . ESTIMATED GFR I S NOT APPLICABLE FOR DIALYSIS PATIEN TS. Stitcher Hand ID - BSLACTIC ACID, [id number] 17:31:11 Test Item Value Reference Range Interpretation Comments LACTATE BLOOD VENOUS 1.28 mmol/L 0.50-2.20 Specime n moderately (2) (BEAKER) (test hemolyzed code = 2262) Stitcher Hand ID - BSOSMOLALITY, [id number] 17:29:06 Test Item Value Reference Range Interpretation Comments OSMOLALITY URINE 297 mOsm/kg See_Comment [Automated message] (BEAKER) (test code = The sy stem which 614) generated this result transmitted ref erence range: 50-1,200 mOsm/kg. The reference range was not used to int erpret this result as normal/abnormal . URINALYSIS [id number] 17:26:16 Test Item Value Reference Range Interpretation Comments RBC UA (BEAKER) (test code = 519) 1 /HPF WBC UA (BEAKER) (test code = 520) 2 /HPF BACTERIA (BEAKER) (test code = None Seen 517) MUCUS (BEAKER) (test code = 1574) Occasional HYALINE CASTS (BEAKER) (test code 3 /LPF = 514) CRYSTALS, URINE (BEAKER) (test None Seen code = 1521) Stitcher Hand ID - techOSMOLALITY, [id number] 17:26:01 Test Item Value Reference Range Interpretation Comments OSMOLALITY, SERUM (BEAKER) (test 260 mOsm/kg 275-295 L code = 615) URINALYSIS WITH MICROSCOPIC IF [id number] 17:25:21 Test Item Value Reference Range Interpretation Comments COLOR (BEAKER) (test code = 470) Yellow CLARITY (BEAKER) (test code = 469) Hazy SPECIFIC GRAVITY UA (BEAKER) (test 1.027 1.001-1.035 code = 468) PH UA (BEAKER) (test code = 467) 5.0 5.0-8.0 PROTEIN UA (BEAKER) (test code = 20 mg/dL Negative A 464) GLUCOSE UA (BEAKER) (test code = Negative Negative 365) KETONES UA (BEAKER) (test code = Negative Negative 371) BILIRUBIN UA (BEAKER) (test code = Negative Negative 462) BLOOD UA (BEAKER) (test code = 461) Negative Negative NITRITE UA (BEAKER) (test code = Negative Negative 465) LEUKOCYTE ESTERASE UA (BEAKER) Negative Negative (test code = 466) UROBILINOGEN UA (BEAKER) (test code 3.0 mg/dL 0.2-1.0 H = 463) SOURCE(BEAKER) (test code = 2795) Stitcher Hand ID - [auto]POCT-GLUCOSE [id number] 17:13:11 Test Item Value Reference Range Interpretation Comments POC-GLUCOSE METER 107 mg/dL 70-110 : TESTED A T [facility] 6720 (BEAKER) (test code = [place], 1538) [address]: Stitcher Hand/Techni ebenezer ID = [id number] for Ca zaubon, Samantha CALCIUM, [id number] 17:10:01 Test Item Value Reference Range Interpretation Comments CALCIUM IONIZED (BEAKER) (test 1.10 mmol/L 1.12-1.27 L code = 698) PH, BLOOD (BEAKER) (test code = 7.33 1810) OXYGEN SATURATION, [id number] 17:08:41 Test Item Value Reference Range Interpretation Comments O2 SATURATION (MEASURED) (BEAKER) 60.4 % (test code = 1455) RAD, CHEST, 1 VIEW, NON [id number] 07:50:00Reason for exam:->s/p LVADShould this be performed at the bedside?->Yes [facility] 1970 Sex: MFINAL REPORT RAD, CHEST, 1 VIEW, NON DEPT INDICATION: s/p LVAD COMPARISON: Prior day's exam FINDINGS: Portable frontal view of the chest. IMPRESSION: Support Lines: Pacer device and cardiac support hardware is unchanged. PICC tip overlies the atriocaval junction. Lungs and pleura: Trace bilateral effusions. Unchanged diffuse interstitial thickening, representing singly or in combination, interstitial edema and/or pneumonitis. No significant pneumothorax. Heart and mediastinum: Stablecontours. Stable surgical changes. Additional findings: None. Signed: Keila Sorto MDReport Verified Date/Time: 09/24/2021 07:50:45 Reading Location: [facility] Radiology Reading Room ATE DEHYDROGENASE (LDH)2021-09-24 06:56:04 Test Item Value Reference Range Interpretation Comments LACTATE DEHYDROGENASE (BEAKER) (test 293 U/L 125-220 H code = 635) Stitcher Hand ID - PINISHANT [id number] 06:56:03 Test Item Value Reference Range Interpretation Comments PHOSPHORUS (BEAKER) (test code = 4.0 mg/dL 2.3-4.7 604) Stitcher Hand ID - SOCO LCOMPREHENSIVE METABOLIC [id number] 06:56:02 Test Item Value Reference Range Interpretation Comments TOTAL PROTEIN 6.0 gm/dL 6.0-8.3 (BEAKER) (test code = 770) ALBUMIN (BEAKER) 3.1 g/dL 3.5-5.0 L (test code = 1145) ALKALINE PHOSPHATASE 146 U/L 40-150 (BEAKER) (test code = 346) BILIRUBIN TOTAL 0.4 mg/dL 0.2-1.2 (BEAKER) (test code = 377) SODIUM (BEAKER) (test 121 meq/L 136-145 L code = 381) POTASSIUM (BEAKER) 4.0 meq/L 3.5-5.1 (test code = 379) CHLORIDE (BEAKER) 91 meq/L 98-107 L (test code = 382) CO2 (BEAKER) (test 21 meq/L 22-29 L code = 355) BLOOD UREA NITROGEN 22 mg/dL 7-21 H (BEAKER) (test code = 354) CREATININE (BEAKER) 1.68 mg/dL 0.57-1.25 H (test code = 358) GLUCOSE RANDOM 102 mg/dL 70-105 (BEAKER) (test code = 652) CALCIUM (BEAKER) 8.5 mg/dL 8.4-10.2 (test code = 697) AST (SGOT) (BEAKER) 18 U/L 5-34 (test code = 353) ALT (SGPT) (BEAKER) 14 U/L 6-55 (test code = 347) EGFR (BEAKER) (test 43 mL/min/1.73 ESTIMA NEELA GFR IS code = 1092) sq m NOT ACCURATE CREATININE CLEARANCE IN PREDICTING GLOMERULAR FILTRATION RATE . ESTIMATED GFR I S NOT APPLICABLE FOR DIALYSIS PATIEN TS. Stitcher Hand ID - PINISHANT [id number] 06:39:37 Test Item Value Reference Range Interpretation Comments PROTIME (BEAKER) (test 26.8 seconds 11.9-14.2 H code = 759) INR (BEAKER) (test 2.50 See_Comment [Automat ed code = 370) message] The sy stem which generated this result transmitted reference range : <=5.90. The reference range was not used to interpret this result as normal/abnormal . PARTIAL THROMBOPLASTIN 63.6 seconds 22.5-36.0 H TIME (BEAKER) (test code = 760) RECOMMENDED COUMADIN/WARFARIN INR THERAPY RANGESSTANDARD DOSE: 2.0 - 3.0 Includes: PROPHYLAXIS for venous thrombosis, systemic embolization; TREATMENT for venous thrombosis and/or pulmonary embolus.HIGH RISK: Target INR is 2.5-3.5 for patients with mechanical heart valves.PROTHROMBIN [id number] 06:38:22 Test Item Value Reference Range Interpretation Comments PROTIME (BEAKER) 26.8 seconds 11.9-14.2 H (test code = 759) INR (BEAKER) (test 2.50 See_Comment [Automat ed message] code = 370) The system Navarik h generated this result transmitted ref erence range: <=5.90. The reference range was not used to int erpret this result as normal/abnormal . RECOMMENDED COUMADIN/WARFARIN INR THERAPY RANGESSTANDARD DOSE: 2.0 - 3.0 Includes: PROPHYLAXIS for venous thrombosis, systemic embolization; TREATMENT for venous thrombosis and/or pulmonary embolus.HIGH RISK: Target INR is 2.5-3.5 for patients with mechanical heart valves.CBC W/PLT COUNT & AUTO [id number] 06:30:37 Test Item Value Reference Range Interpretation Comments WHITE BLOOD CELL COUNT (BEAKER) 11.6 K/ L 3.5-10.5 H (test code = 775) RED BLOOD CELL COUNT (BEAKER) 2.50 M/ L 4.63-6.08 L (test code = 761) HEMOGLOBIN (BEAKER) (test code = 7.8 GM/DL 13.7-17.5 L 410) HEMATOCRIT (BEAKER) (test code = 23.3 % 40.1-51.0 L 411) MEAN CORPUSCULAR VOLUME (BEAKER) 93.2 fL 79.0-92.2 H (test code = 753) MEAN CORPUSCULAR HEMOGLOBIN 31.2 pg 25.7-32.2 (BEAKER) (test code = 751) MEAN CORPUSCULAR HEMOGLOBIN CONC 33.5 GM/DL 32.3-36.5 (BEAKER) (test code = 752) RED CELL DISTRIBUTION WIDTH 18.6 % 11.6-14.4 H (BEAKER) (test code = 412) PLATELET COUNT (BEAKER) (test 380 K/CU MM 150-450 code = 756) MEAN PLATELET VOLUME (BEAKER) 9.2 fL 9.4-12.4 L (test code = 754) NUCLEATED RED BLOOD CELLS 0 /100 WBC 0-0 (BEAKER) (test code = 413) NEUTROPHILS RELATIVE PERCENT 82 % (BEAKER) (test code = 429) LYMPHOCYTES RELATIVE PERCENT 10 % (BEAKER) (test code = 430) MONOCYTES RELATIVE PERCENT 4 % (BEAKER) (test code = 431) EOSINOPHILS RELATIVE PERCENT 2 % (BEAKER) (test code = 432) BASOPHILS RELATIVE PERCENT 0 % (BEAKER) (test code = 437) NEUTROPHILS ABSOLUTE COUNT 9.48 K/ L 1.78-5.38 H (BEAKER) (test code = 670) LYMPHOCYTES ABSOLUTE COUNT 1.13 K/ L 1.32-3.57 L (BEAKER) (test code = 414) MONOCYTES ABSOLUTE COUNT (BEAKER) 0.43 K/ L 0.30-0.82 (test code = 415) EOSINOPHILS ABSOLUTE COUNT 0.17 K/ L 0.04-0.54 (BEAKER) (test code = 416) BASOPHILS ABSOLUTE COUNT (BEAKER) 0.02 K/ L 0.01-0.08 (test code = 417) IMMATURE GRANULOCYTES-RELATIVE 3 % 0-1 H PERCENT (BEAKER) (test code = 2801) OXYGEN SATURATION, [id number] 06:29:08 Test Item Value Reference Range Interpretation Comments O2 SATURATION (MEASURED) (BEAKER) 69.5 % (test code = 1455) POCT-GLUCOSE [id number] 20:26:13 Test Item Value Reference Range Interpretation Comments POC-GLUCOSE METER 91 mg/dL 70-110 : TESTED A T [facility] 6720 (BEAKER) (test code = MELVINA SANTO AR, 1538) [id number]: Stitcher Hand/Techni ebenezer ID = [id number] for Fols e (contract), Dem etrice LACTIC ACID, [id number] 14:12:31 Test Item Value Reference Range Interpretation Comments LACTATE BLOOD VENOUS (2) (BEAKER) 1.95 mmol/L 0.50-2.20 (test code = 2872) Stitcher Hand ID - SO [id number] 14:08:12 Test Item Value Reference Range Interpretation Comments PHOSPHORUS (BEAKER) (test code = 3.1 mg/dL 2.3-4.7 604) Stitcher Hand ID - SO [id number] 14:08:11 Test Item Value Reference Range Interpretation Comments MAGNESIUM (BEAKER) (test code = 1.8 mg/dL 1.6-2.6 627) Stitcher Hand ID - SO MBASIC METABOLIC [id number] 14:08:10 Test Item Value Reference Range Interpretation Comments SODIUM (BEAKER) 125 meq/L 136-145 L (test code = 381) POTASSIUM (BEAKER) 4.0 meq/L 3.5-5.1 (test code = 379) CHLORIDE (BEAKER) 94 meq/L 98-107 L (test code = 382) CO2 (BEAKER) (test 23 meq/L 22-29 code = 355) BLOOD UREA NITROGEN 19 mg/dL 7-21 (BEAKER) (test code = 354) CREATININE (BEAKER) 1.03 mg/dL 0.57-1.25 (test code = 358) GLUCOSE RANDOM 143 mg/dL 70-105 H (BEAKER) (test code = 652) CALCIUM (BEAKER) 8.7 mg/dL 8.4-10.2 (test code = 697) EGFR (BEAKER) (test 76 mL/min/1.73 ESTIMA NEELA GFR IS code = 1092) sq m NOT ACCURATE CREATININE CLEARANCE IN PREDICTING GLOMERULAR FILTRATION RATE . ESTIMATED GFR I S NOT APPLICABLE FOR DIALYSIS PATIEN TS. Stitcher Hand ID - SO MCALCIUM, [id number] 13:47:24 Test Item Value Reference Range Interpretation Comments CALCIUM IONIZED (BEAKER) (test 1.11 mmol/L 1.12-1.27 L code = 698) PH, BLOOD (BEAKER) (test code = 7.37 1810) OXYGEN SATURATION, [id number] 13:46:44 Test Item Value Reference Range Interpretation Comments O2 SATURATION (MEASURED) (BEAKER) 68.4 % (test code = 1455) RAD, CHEST, 1 VIEW, NON [id number] 07:42:00Reason for exam:->s/p LVADShould this be performed at the bedside?->Yes [facility] 1970 Sex: MFINAL REPORT RAD, CHEST, 1 VIEW, NON DEPT INDICATION: s/p LVAD COMPARISON: Prior day's exam FINDINGS: Portable frontal view of the chest. IMPRESSION: Support Lines: PICC tip overlies the atriocaval junction. Cardiac support hardware is unchanged. Lungs and pleura: Lungs are hypoinflated. Mild bibasilar interstitial thickening. No significant pneumothorax. Heart and mediastinum: Stablecontours. Additional findings: None. Signed: Keila Sorto Verified Date/Time: 107:42:14 Reading Location: [facility] Radiology Reading Room LACTATE DEHYDROGENASE (LDH)2021-09-23 05:22:22 Test Item Value Reference Range Interpretation Comments LACTATE DEHYDROGENASE (BEAKER) (test 316 U/L 125-220 H code = 635) Stitcher Hand ID - SO [id number] 05:22:21 Test Item Value Reference Range Interpretation Comments PHOSPHORUS (BEAKER) (test code = 3.3 mg/dL 2.3-4.7 604) Stitcher Hand ID - SO MCOMPREHENSIVE METABOLIC [id number] 05:22:20 Test Item Value Reference Range Interpretation Comments TOTAL PROTEIN 6.7 gm/dL 6.0-8.3 (BEAKER) (test code = 770) ALBUMIN (BEAKER) 3.4 g/dL 3.5-5.0 L (test code = 1145) ALKALINE PHOSPHATASE 182 U/L 40-150 H (BEAKER) (test code = 346) BILIRUBIN TOTAL 0.7 mg/dL 0.2-1.2 (BEAKER) (test code = 377) SODIUM (BEAKER) (test 129 meq/L 136-145 L code = 381) POTASSIUM (BEAKER) 3.9 meq/L 3.5-5.1 (test code = 379) CHLORIDE (BEAKER) 95 meq/L 98-107 L (test code = 382) CO2 (BEAKER) (test 24 meq/L 22-29 code = 355) BLOOD UREA NITROGEN 19 mg/dL 7-21 (BEAKER) (test code = 354) CREATININE (BEAKER) 0.85 mg/dL 0.57-1.25 (test code = 358) GLUCOSE RANDOM 118 mg/dL 70-105 H (BEAKER) (test code = 652) CALCIUM (BEAKER) 8.9 mg/dL 8.4-10.2 (test code = 697) AST (SGOT) (BEAKER) 22 U/L 5-34 (test code = 353) ALT (SGPT) (BEAKER) 17 U/L 6-55 (test code = 347) EGFR (BEAKER) (test 95 mL/min/1.73 ESTIMA NEELA GFR IS code = 1092) sq m NOT ACCURATE CREATININE CLEARANCE IN PREDICTING GLOMERULAR FILTRATION RATE . ESTIMATED GFR I S NOT APPLICABLE FOR DIALYSIS PATIEN TS. Stitcher Hand ID - SO MOXYGEN SATURATION, [id number] 05:12:56 Test Item Value Reference Range Interpretation Comments O2 SATURATION (MEASURED) (BEAKER) 69.9 % (test code = 1455) [id number] 05:09:54 Test Item Value Reference Range Interpretation Comments PROTIME (BEAKER) (test 27.9 seconds 11.9-14.2 H code = 759) INR (BEAKER) (test 2.64 See_Comment [Automat ed code = 370) message] The sy stem which generated this result transmitted reference range : <=5.90. The reference range was not used to interpret this result as normal/abnormal . PARTIAL THROMBOPLASTIN 74.7 seconds 22.5-36.0 H TIME (BEAKER) (test code = 760) RECOMMENDED COUMADIN/WARFARIN INR THERAPY RANGESSTANDARD DOSE: 2.0 - 3.0 Includes: PROPHYLAXIS for venous thrombosis, systemic embolization; TREATMENT for venous thrombosis and/or pulmonary embolus.HIGH RISK: Target INR is 2.5-3.5 for patients with mechanical heart valves.PROTHROMBIN [id number] 05:08:36 Test Item Value Reference Range Interpretation Comments PROTIME (BEAKER) 27.9 seconds 11.9-14.2 H (test code = 759) INR (BEAKER) (test 2.64 See_Comment [Automat ed message] code = 370) The system g4interactive generated this result transmitted ref erence range: <=5.90. The reference range was not used to int erpret this result as normal/abnormal . RECOMMENDED COUMADIN/WARFARIN INR THERAPY RANGESSTANDARD DOSE: 2.0 - 3.0 Includes: PROPHYLAXIS for venous thrombosis, systemic embolization; TREATMENT for venous thrombosis and/or pulmonary embolus.HIGH RISK: Target INR is 2.5-3.5 for patients with mechanical heart valves.CBC W/PLT COUNT & AUTO [id number] 04:58:01 Test Item Value Reference Range Interpretation Comments WHITE BLOOD CELL COUNT (BEAKER) 11.8 K/ L 3.5-10.5 H (test code = 775) RED BLOOD CELL COUNT (BEAKER) 2.57 M/ L 4.63-6.08 L (test code = 761) HEMOGLOBIN (BEAKER) (test code = 8.0 GM/DL 13.7-17.5 L 410) HEMATOCRIT (BEAKER) (test code = 24.6 % 40.1-51.0 L 411) MEAN CORPUSCULAR VOLUME (BEAKER) 95.7 fL 79.0-92.2 H (test code = 753) MEAN CORPUSCULAR HEMOGLOBIN 31.1 pg 25.7-32.2 (BEAKER) (test code = 751) MEAN CORPUSCULAR HEMOGLOBIN CONC 32.5 GM/DL 32.3-36.5 (BEAKER) (test code = 752) RED CELL DISTRIBUTION WIDTH 18.6 % 11.6-14.4 H (BEAKER) (test code = 412) PLATELET COUNT (BEAKER) (test 318 K/CU MM 150-450 code = 756) MEAN PLATELET VOLUME (BEAKER) 9.7 fL 9.4-12.4 (test code = 754) NUCLEATED RED BLOOD CELLS 0 /100 WBC 0-0 (BEAKER) (test code = 413) NEUTROPHILS RELATIVE PERCENT 79 % (BEAKER) (test code = 429) LYMPHOCYTES RELATIVE PERCENT 11 % (BEAKER) (test code = 430) MONOCYTES RELATIVE PERCENT 4 % (BEAKER) (test code = 431) EOSINOPHILS RELATIVE PERCENT 2 % (BEAKER) (test code = 432) BASOPHILS RELATIVE PERCENT 0 % (BEAKER) (test code = 437) NEUTROPHILS ABSOLUTE COUNT 9.31 K/ L 1.78-5.38 H (BEAKER) (test code = 670) LYMPHOCYTES ABSOLUTE COUNT 1.32 K/ L 1.32-3.57 (BEAKER) (test code = 414) MONOCYTES ABSOLUTE COUNT (BEAKER) 0.52 K/ L 0.30-0.82 (test code = 415) EOSINOPHILS ABSOLUTE COUNT 0.19 K/ L 0.04-0.54 (BEAKER) (test code = 416) BASOPHILS ABSOLUTE COUNT (BEAKER) 0.03 K/ L 0.01-0.08 (test code = 417) IMMATURE GRANULOCYTES-RELATIVE 4 % 0-1 H PERCENT (BEAKER) (test code = 2801) POCT-GLUCOSE [id number] 00:12:46 Test Item Value Reference Range Interpretation Comments POC-GLUCOSE METER 132 mg/dL 70-110 H : TESTED A T [facility] 6720 (BEAKER) (test code = MELVINA SANTO AR, 1538) [address]: Stitcher Hand/Techni ebenezer ID = [id number] for PRINCESS ARTUR RAMIREZ LACTIC ACID, [id number] 17:00:30 Test Item Value Reference Range Interpretation Comments LACTATE BLOOD VENOUS (2) (BEAKER) 1.90 mmol/L 0.50-2.20 (test code = 2872) Stitcher Hand ID - BSBLOOD GAS, [id number] 16:42:35 Test Item Value Reference Range Interpretation Comments PH VENOUS (BEAKER) (test code = 7.41 7.32-7.42 701) PCO2 VENOUS (BEAKER) (test code = 41 mm Hg 41-51 755) PO2 VENOUS (BEAKER) (test code = 40 mm Hg 25-40 702) O2 SATURATION VENOUS (BEAKER) 75.4 % 40.0-70.0 H (test code = 703) HCO3 VENOUS (BEAKER) (test code = 26 mmol/L 21-29 705) BASE EXCESS VENOUS (BEAKER) (test 0.7 mmol/L -2.0-3.0 code = 704) PATIENT TEMPERATURE (BEAKER) (test 36.9 code = 1818) FIO2 (BEAKER) (test code = 1819) 21.0 [id number] 13:02:11 Test Item Value Reference Range Interpretation Comments MAGNESIUM (BEAKER) (test code = 2.1 mg/dL 1.6-2.6 627) Stitcher Hand ID - EMMANUEL FBASIC METABOLIC [id number] 13:02:10 Test Item Value Reference Range Interpretation Comments SODIUM (BEAKER) 129 meq/L 136-145 L (test code = 381) POTASSIUM (BEAKER) 4.5 meq/L 3.5-5.1 (test code = 379) CHLORIDE (BEAKER) 95 meq/L 98-107 L (test code = 382) CO2 (BEAKER) (test 23 meq/L 22-29 code = 355) BLOOD UREA NITROGEN 19 mg/dL 7-21 (BEAKER) (test code = 354) CREATININE (BEAKER) 0.90 mg/dL 0.57-1.25 (test code = 358) GLUCOSE RANDOM 143 mg/dL 70-105 H (BEAKER) (test code = 652) CALCIUM (BEAKER) 9.2 mg/dL 8.4-10.2 (test code = 697) EGFR (BEAKER) (test 89 mL/min/1.73 ESTIMA NEELA GFR IS code = 1092) sq m NOT ACCURATE CREATININE CLEARANCE IN PREDICTING GLOMERULAR FILTRATION RATE . ESTIMATED GFR I S NOT APPLICABLE FOR DIALYSIS PATIEN TS. Stitcher Hand ID - EMMANUEL LEWISYGEN SATURATION, [id number] 12:39:01 Test Item Value Reference Range Interpretation Comments O2 SATURATION (MEASURED) (BEAKER) 63.5 % (test code = 1455) ANG, CV ACCESS, [id number] 09:42:00Reason for exam:->PICC line placement vs tunneled [facility] : 1970 Sex: MFINAL REPORT Procedures:1. Right upper extremity venogram.2. Venoplasty of focal stenosis within the brachial vein3. Right upper extremity PICC insertion History: Need for long-term IVtherapy, failed bedside PICC placement. Head Resident: Steve Ray MD. Director Sterile Processing: None. Modality: Sonography and fluoroscopy. Sedation: None. Anesthesia: Two percent Lidocaine without epinephrine. Approach: Right brachial vein Estimated blood loss: < 5 cc. Specimen: None. Fluoroscopy Time: 8.0 min.Reference Air Kerma (Ka, r): 21.4 mGy. TECHNIQUE/FINDINGS: Informed written consent was obtained. Discussion of risks, benefits, and alternatives were made with the patient. The patient expressed u nderstanding and agreed to proceed. A universal timeout was performed prior to starting the procedure. All elements maximal sterile barrier technique was utilized for this procedure, including utilization of sterile scrub solution for skin prep, a large sterile sheet to cover the areas of the patient that were not prepped, and hand hygiene, mask, head covering, and sterile gown for performing radiologist and scrub technologist. The skin was anesthetized with 2% lidocaine. Ultrasound evaluation showed a patent and compressible right brachial vein, which was punctured under direct real-time ultrasound guidance with a micropuncture needle. An ultrasound image was saved to PACS. A 0.018 inch wire was advanced centrally into the right atrium. However, a 5 [place] 4 [place] PICC line could not be advanced beyond the upper arm. Subsequently, venogram was performed demonstrating high-grade, approximately 80%, luminal narrowing within the right brachial vein. This was treated using a 4 mm monorail balloon. Subsequently, a 4 [place] double-lumen PICC line was measured and cut at 44 cm and advanced through the sheath with distal tip terminating at the cavoatrial junction. The peel-away sheath was removed. The ports were flushed and aspirated easily following placement. The PICC line was secured with suture material. Vital signs were monitored throughout the procedure by a nurse, and remained stable. The patient tolerated the procedure well and left the department in the same condition. Impression: Successful right upper extremity venogram, angioplasty of focal stenosis within the brachial vein, andright upper extremity PICC insertion as detailed above. The catheter is ready for immediate use. Sign ed: Steve Ray Verified Date/Time: 09/22/2021 09:42:27 Reading Location: [facility] Radiology Reading Room RAD, CHEST, 1 VIEW, NON [id number] 07:53:00Reason for exam:->s/p LVADShould this be performed at the bedside?->Yes [facility] : 1970 Sex: MFINAL REPORT RAD, CHEST, 1 VIEW, NON DEPT INDICATION: s/p LVAD COMPARISON: Prior day's exam FINDINGS: Portable frontal view of the chest. IMPRESSION: Support Lines: PICC tip overlies the atriocaval junction. Cardiac support hardware is unchanged. Lungs and pleura: Lungs are hypoinflated. Mild bibasilar interstitial thickening. No significant pneumothorax. Heart and mediastinum: Stablecontours. Additional findings: None. Signed: Keila Sorto Verified Date/Time: 107:53:00 Reading Location: [facility] Radiology Reading Room SARS-COV2/RT-PCR ([facility])2021-09-22 07:20:29 Test Item Value Reference Range Interpretation Comments SARS-COV2/RT-PCR Negative Negative The SARS-Co V-2 target (test code = nucleic acids a re not [id number]) detected in thi s specimen. Negative result s do not preclude SARS-C oV-2 infection and s hould not be used as the ludmila e basis for patient managem ent decisions. Nega tive results must be combine d with clinical observ ations, patient history , and epidemiological information. A false negativ e result may occur if a spec imen is improperly gia ected, transported or handled. This SARS CoV-2 test is a rapid, real-time RT-PC R test intended for th e qualitative detection of nu cleic acid from SARS-CoV-2 in a nasopharyngeal swab specimen collected from individuals suspected of CO VID-19 by their healthcar e provider. This test has been authorized by FDA under an EUA for use by authorized laboratories. This test is only authorized for the duration of the declaration that circumstances exist justifying the authorization of emergency use of in vitro diagnostic tests for detection and/or diagnosis of COVID-19 under Section 564(b)(1) of the Federal Food, Drug and Cosmetic Act, 21 U.S.C. 360bbb-3(b)(1), unless the authorization is terminated or revoked sooner. Fact Sheet for Healthcare Providers: https://www.[employer] Therapeuticsid.co m/Documents/Xpert%20Xpress%20SARS%20CoV-2/Fact%20Sheets/3023802%07OLBP-IHI-5%20 HEALTHCARE%20PROVIDERS%20FACT%20SHEET.pdf Fact Sheet for Healthcare Patients: https://www.[employer]/Documents/Xpert%20Xp ress%20SARS%20CoV-2/Fact%20Sheets/3023801%37XCKX-PVY-7%20PATIENT%20FACT%20SHEET .pdfOXYGEN SATURATION, [id number] 05:52:17 Test Item Value Reference Range Interpretation Comments O2 SATURATION (MEASURED) (BEAKER) 86.7 % (test code = 1455) PROTHROMBIN [id number] 04:56:59 Test Item Value Reference Range Interpretation Comments PROTIME (BEAKER) 31.3 seconds 11.9-14.2 H (test code = 759) INR (BEAKER) (test 3.05 See_Comment [Automat ed message] code = 370) The system g4interactive generated this result transmitted ref erence range: <=5.90. The reference range was not used to int erpret this result as normal/abnormal . RECOMMENDED COUMADIN/WARFARIN INR THERAPY RANGESSTANDARD DOSE: 2.0 - 3.0 Includes: PROPHYLAXIS for venous thrombosis, systemic embolization; TREATMENT for venous thrombosis and/or pulmonary embolus.HIGH RISK: Target INR is 2.5-3.5 for patients with mechanical heart valves.[id number] 04:53:12 Test Item Value Reference Range Interpretation Comments PHOSPHORUS (BEAKER) (test code = 3.2 mg/dL 2.3-4.7 604) Stitcher Hand ID - SOCO LLACTATE DEHYDROGENASE (LDH)2021-09-22 04:53:12 Test Item Value Reference Range Interpretation Comments LACTATE DEHYDROGENASE (BEAKER) (test 283 U/L 125-220 H code = 635) Stitcher Hand ID - SOCO [id number] 04:53:11 Test Item Value Reference Range Interpretation Comments MAGNESIUM (BEAKER) (test code = 2.6 mg/dL 1.6-2.6 627) Stitcher Hand ID - SOCO LCOMPREHENSIVE METABOLIC [id number] 04:53:10 Test Item Value Reference Range Interpretation Comments TOTAL PROTEIN 7.1 gm/dL 6.0-8.3 (BEAKER) (test code = 770) ALBUMIN (BEAKER) 3.5 g/dL 3.5-5.0 (test code = 1145) ALKALINE PHOSPHATASE 184 U/L 40-150 H (BEAKER) (test code = 346) BILIRUBIN TOTAL 0.7 mg/dL 0.2-1.2 (BEAKER) (test code = 377) SODIUM (BEAKER) (test 130 meq/L 136-145 L code = 381) POTASSIUM (BEAKER) 3.9 meq/L 3.5-5.1 (test code = 379) CHLORIDE (BEAKER) 94 meq/L 98-107 L (test code = 382) CO2 (BEAKER) (test 26 meq/L 22-29 code = 355) BLOOD UREA NITROGEN 15 mg/dL 7-21 (BEAKER) (test code = 354) CREATININE (BEAKER) 0.77 mg/dL 0.57-1.25 (test code = 358) GLUCOSE RANDOM 117 mg/dL 70-105 H (BEAKER) (test code = 652) CALCIUM (BEAKER) 9.3 mg/dL 8.4-10.2 (test code = 697) AST (SGOT) (BEAKER) 23 U/L 5-34 (test code = 353) ALT (SGPT) (BEAKER) 20 U/L 6-55 (test code = 347) EGFR (BEAKER) (test 107 ESTIMATE D GFR IS code = 1092) mL/min/1.73 sq NOT ACCURA TE m CREATININE CLEARANCE IN PREDICTING GLOMERULAR FILTRATION RATE . ESTIMATED GFR I S NOT APPLICABLE FOR DIALYSIS PATIEN TS. Stitcher Hand ID - PIAYA LCBC W/PLT COUNT & AUTO [id number] 04:25:20 Test Item Value Reference Range Interpretation Comments WHITE BLOOD CELL COUNT (BEAKER) 12.2 K/ L 3.5-10.5 H (test code = 775) RED BLOOD CELL COUNT (BEAKER) 2.72 M/ L 4.63-6.08 L (test code = 761) HEMOGLOBIN (BEAKER) (test code = 8.5 GM/DL 13.7-17.5 L 410) HEMATOCRIT (BEAKER) (test code = 26.6 % 40.1-51.0 L 411) MEAN CORPUSCULAR VOLUME (BEAKER) 97.8 fL 79.0-92.2 H (test code = 753) MEAN CORPUSCULAR HEMOGLOBIN 31.3 pg 25.7-32.2 (BEAKER) (test code = 751) MEAN CORPUSCULAR HEMOGLOBIN CONC 32.0 GM/DL 32.3-36.5 L (BEAKER) (test code = 752) RED CELL DISTRIBUTION WIDTH 18.7 % 11.6-14.4 H (BEAKER) (test code = 412) PLATELET COUNT (BEAKER) (test 260 K/CU MM 150-450 code = 756) MEAN PLATELET VOLUME (BEAKER) 9.8 fL 9.4-12.4 (test code = 754) NUCLEATED RED BLOOD CELLS 0 /100 WBC 0-0 (BEAKER) (test code = 413) NEUTROPHILS RELATIVE PERCENT 84 % (BEAKER) (test code = 429) LYMPHOCYTES RELATIVE PERCENT 9 % (BEAKER) (test code = 430) MONOCYTES RELATIVE PERCENT 4 % (BEAKER) (test code = 431) EOSINOPHILS RELATIVE PERCENT 1 % (BEAKER) (test code = 432) BASOPHILS RELATIVE PERCENT 0 % (BEAKER) (test code = 437) NEUTROPHILS ABSOLUTE COUNT 10.23 K/ L 1.78-5.38 H (BEAKER) (test code = 670) LYMPHOCYTES ABSOLUTE COUNT 1.07 K/ L 1.32-3.57 L (BEAKER) (test code = 414) MONOCYTES ABSOLUTE COUNT (BEAKER) 0.44 K/ L 0.30-0.82 (test code = 415) EOSINOPHILS ABSOLUTE COUNT 0.14 K/ L 0.04-0.54 (BEAKER) (test code = 416) BASOPHILS ABSOLUTE COUNT (BEAKER) 0.02 K/ L 0.01-0.08 (test code = 417) IMMATURE GRANULOCYTES-RELATIVE 2 % 0-1 H PERCENT (BEAKER) (test code = 2801) LACTIC ACID, [id number] 04:24:54 Test Item Value Reference Range Interpretation Comments LACTATE BLOOD 0.6 mmol/L 0.5-2.2 Specimen sligh tly ARTERIAL (2) (BEAKER) hemoly zed (test code = 2874) Stitcher Hand ID - SOCO [id number] 18:15:23 Test Item Value Reference Range Interpretation Comments MAGNESIUM (BEAKER) (test code = 2.3 mg/dL 1.6-2.6 627) Stitcher Hand ID - SOCO LCOMPREHENSIVE METABOLIC [id number] 18:15:22 Test Item Value Reference Range Interpretation Comments TOTAL PROTEIN 7.0 gm/dL 6.0-8.3 (BEAKER) (test code = 770) ALBUMIN (BEAKER) 3.5 g/dL 3.5-5.0 (test code = 1145) ALKALINE PHOSPHATASE 194 U/L 40-150 H (BEAKER) (test code = 346) BILIRUBIN TOTAL 0.6 mg/dL 0.2-1.2 (BEAKER) (test code = 377) SODIUM (BEAKER) (test 124 meq/L 136-145 L code = 381) POTASSIUM (BEAKER) 3.3 meq/L 3.5-5.1 L (test code = 379) CHLORIDE (BEAKER) 90 meq/L 98-107 L (test code = 382) CO2 (BEAKER) (test 24 meq/L 22-29 code = 355) BLOOD UREA NITROGEN 22 mg/dL 7-21 H (BEAKER) (test code = 354) CREATININE (BEAKER) 0.95 mg/dL 0.57-1.25 (test code = 358) GLUCOSE RANDOM 339 mg/dL 70-105 H (BEAKER) (test code = 652) CALCIUM (BEAKER) 8.7 mg/dL 8.4-10.2 (test code = 697) AST (SGOT) (BEAKER) 24 U/L 5-34 (test code = 353) ALT (SGPT) (BEAKER) 20 U/L 6-55 (test code = 347) EGFR (BEAKER) (test 84 mL/min/1.73 ESTIMA NEELA GFR IS code = 1092) sq m NOT ACCURATE CREATININE CLEARANCE IN PREDICTING GLOMERULAR FILTRATION RATE . ESTIMATED GFR I S NOT APPLICABLE FOR DIALYSIS PATIEN TS. Stitcher Hand ID - PIAYA LPROTHROMBIN [id number] 18:09:22 Test Item Value Reference Range Interpretation Comments PROTIME (BEAKER) 35.3 seconds 11.9-14.2 H (test code = 759) INR (BEAKER) (test 3.56 See_Comment [Automat ed message] code = 370) The system g4interactive generated this result transmitted ref erence range: <=5.90. The reference range was not used to int erpret this result as normal/abnormal . RECOMMENDED COUMADIN/WARFARIN INR THERAPY RANGESSTANDARD DOSE: 2.0 - 3.0 Includes: PROPHYLAXIS for venous thrombosis, systemic embolization; TREATMENT for venous thrombosis and/or pulmonary embolus.HIGH RISK: Target INR is 2.5-3.5 for patients with mechanical heart valves.LACTIC ACID, [id number] 18:02:18 Test Item Value Reference Range Interpretation Comments LACTATE BLOOD 0.5 mmol/L 0.5-2.2 Specimen sligh tly ARTERIAL (2) (BEAKER) hemoly zed (test code = 2874) Stitcher Hand ID - SOCO DAIYGEN SATURATION, [id number] 17:52:16 Test Item Value Reference Range Interpretation Comments O2 SATURATION (MEASURED) (BEAKER) 70.8 % (test code = 1455) POCT-GLUCOSE [id number] 16:43:24 Test Item Value Reference Range Interpretation Comments POC-GLUCOSE METER 102 mg/dL 70-110 : TESTED A T [facility] 6720 (BEAKER) (test code [facility], = 1538) [address]: Stitcher Hand/Techni ebenezer ID = [id number] for Shelia camacho (contract)Domenic OXYGEN SATURATION, [id number] 13:20:40 Test Item Value Reference Range Interpretation Comments O2 SATURATION (MEASURED) (BEAKER) 62.7 % (test code = 1455) CBC W/PLT COUNT & AUTO [id number] 13:19:26 Test Item Value Reference Range Interpretation Comments WHITE BLOOD CELL COUNT (BEAKER) 12.6 K/ L 3.5-10.5 H (test code = 775) RED BLOOD CELL COUNT (BEAKER) 2.57 M/ L 4.63-6.08 L (test code = 761) HEMOGLOBIN (BEAKER) (test code = 8.2 GM/DL 13.7-17.5 L 410) HEMATOCRIT (BEAKER) (test code = 24.3 % 40.1-51.0 L 411) MEAN CORPUSCULAR VOLUME (BEAKER) 94.6 fL 79.0-92.2 H (test code = 753) MEAN CORPUSCULAR HEMOGLOBIN 31.9 pg 25.7-32.2 (BEAKER) (test code = 751) MEAN CORPUSCULAR HEMOGLOBIN CONC 33.7 GM/DL 32.3-36.5 (BEAKER) (test code = 752) RED CELL DISTRIBUTION WIDTH 18.6 % 11.6-14.4 H (BEAKER) (test code = 412) PLATELET COUNT (BEAKER) (test 236 K/CU MM 150-450 code = 756) MEAN PLATELET VOLUME (BEAKER) 9.4 fL 9.4-12.4 (test code = 754) NUCLEATED RED BLOOD CELLS 0 /100 WBC 0-0 (BEAKER) (test code = 413) NEUTROPHILS RELATIVE PERCENT 87 % (BEAKER) (test code = 429) LYMPHOCYTES RELATIVE PERCENT 6 % (BEAKER) (test code = 430) MONOCYTES RELATIVE PERCENT 4 % (BEAKER) (test code = 431) EOSINOPHILS RELATIVE PERCENT 1 % (BEAKER) (test code = 432) BASOPHILS RELATIVE PERCENT 0 % (BEAKER) (test code = 437) NEUTROPHILS ABSOLUTE COUNT 10.93 K/ L 1.78-5.38 H (BEAKER) (test code = 670) LYMPHOCYTES ABSOLUTE COUNT 0.70 K/ L 1.32-3.57 L (BEAKER) (test code = 414) MONOCYTES ABSOLUTE COUNT (BEAKER) 0.49 K/ L 0.30-0.82 (test code = 415) EOSINOPHILS ABSOLUTE COUNT 0.13 K/ L 0.04-0.54 (BEAKER) (test code = 416) BASOPHILS ABSOLUTE COUNT (BEAKER) 0.02 K/ L 0.01-0.08 (test code = 417) IMMATURE GRANULOCYTES-RELATIVE 3 % 0-1 H PERCENT (BEAKER) (test code = 2801) POCT-GLUCOSE [id number] 12:24:01 Test Item Value Reference Range Interpretation Comments POC-GLUCOSE METER 120 mg/dL 70-110 H : TESTED A T [facility] 6720 (BEAKER) (test code [facility], = 1538) [address]: Stitcher Hand/Techni ebenezer ID = [id number] for Shelia camacho (contract)Domenic BASIC METABOLIC [id number] 10:23:26 Test Item Value Reference Range Interpretation Comments SODIUM (BEAKER) 129 meq/L 136-145 L (test code = 381) POTASSIUM (BEAKER) 3.7 meq/L 3.5-5.1 Specimen slightly (test code = 379) hemolyzed CHLORIDE (BEAKER) 96 meq/L 98-107 L (test code = 382) CO2 (BEAKER) (test 23 meq/L 22-29 code = 355) BLOOD UREA NITROGEN 24 mg/dL 7-21 H (BEAKER) (test code = 354) CREATININE (BEAKER) 0.93 mg/dL 0.57-1.25 Specimen slightly (test code = 358) hemolyzed GLUCOSE RANDOM 138 mg/dL 70-105 H (BEAKER) (test code = 652) CALCIUM (BEAKER) 8.7 mg/dL 8.4-10.2 (test code = 697) EGFR (BEAKER) (test 86 mL/min/1.73 ESTIMA NEELA GFR IS code = 1092) sq m NOT ACCURATE CREATININE CLEARANCE IN PREDICTING GLOMERULAR FILTRATION RATE . ESTIMATED GFR I S NOT APPLICABLE FOR DIALYSIS PATIEN TS. Stitcher Hand ID - PINISHANT [id number] 10:23:25 Test Item Value Reference Range Interpretation Comments MAGNESIUM (BEAKER) 2.2 mg/dL 1.6-2.6 Specimen slightly (test code = 627) hemolyzed Stitcher Hand ID - SOCO LPROTHROMBIN TIME/[id number] 06:49:27 Test Item Value Reference Range Interpretation Comments PROTIME (BEAKER) 32.7 seconds 11.9-14.2 H (test code = 759) INR (BEAKER) (test 3.22 See_Comment [Automat ed message] code = 370) The system g4interactive generated this result transmitted ref erence range: <=5.90. The reference range was not used to int erpret this result as normal/abnormal . RECOMMENDED COUMADIN/WARFARIN INR THERAPY RANGESSTANDARD DOSE: 2.0 - 3.0 Includes: PROPHYLAXIS for venous thrombosis, systemic embolization; TREATMENT for venous thrombosis and/or pulmonary embolus.HIGH RISK: Target INR is 2.5-3.5 for patients with mechanical heart valves.RAD, CHEST, 1 VIEW, NON [id number] 04:24:00Reason for exam:->s/p LVADShould this be performed at the bedside?->[facility] : 1970 Sex: MFINAL REPORT RAD, CHEST, 1 VIEW, NON DEPT INDICATION: s/p LVAD COMPARISON: Prior day's exam FINDINGS: Portable frontal view of the chest. IMPRESSION: Support Lines: LVAD device and leftchest AICD device are stable. Right PICC tip is unchanged. Lungs and pleura: Basilar opacity likely a telectasis are stable. No overt pulmonary edema or new lung consolidation. No pneumothorax.Heart andmediastinum: Stable cardiomegaly. Additional findings: None. Signed: yK Woodwardepdeborah Verified Date/Time: 09/21/2021 04:24:44 LACTATE DEHYDROGENASE (LDH)2021-09-21 03:35:18 Test Item Value Reference Range Interpretation Comments LACTATE DEHYDROGENASE (BEAKER) (test 348 U/L 125-220 H code = 635) Stitcher Hand ID - PINISHANT [id number] 03:35:16 Test Item Value Reference Range Interpretation Comments PHOSPHORUS (BEAKER) (test code = 3.7 mg/dL 2.3-4.7 604) Stitcher Hand ID - PINISHANT [id number] 03:35:15 Test Item Value Reference Range Interpretation Comments MAGNESIUM (BEAKER) (test code = 2.3 mg/dL 1.6-2.6 627) Stitcher Hand ID - PIAYA LCOMPREHENSIVE METABOLIC [id number] 03:35:14 Test Item Value Reference Range Interpretation Comments TOTAL PROTEIN 7.4 gm/dL 6.0-8.3 (BEAKER) (test code = 770) ALBUMIN (BEAKER) 3.7 g/dL 3.5-5.0 (test code = 1145) ALKALINE PHOSPHATASE 207 U/L 40-150 H (BEAKER) (test code = 346) BILIRUBIN TOTAL 0.7 mg/dL 0.2-1.2 (BEAKER) (test code = 377) SODIUM (BEAKER) (test 127 meq/L 136-145 L code = 381) POTASSIUM (BEAKER) 4.0 meq/L 3.5-5.1 (test code = 379) CHLORIDE (BEAKER) 90 meq/L 98-107 L (test code = 382) CO2 (BEAKER) (test 24 meq/L 22-29 code = 355) BLOOD UREA NITROGEN 27 mg/dL 7-21 H (BEAKER) (test code = 354) CREATININE (BEAKER) 1.13 mg/dL 0.57-1.25 (test code = 358) GLUCOSE RANDOM 204 mg/dL 70-105 H (BEAKER) (test code = 652) CALCIUM (BEAKER) 9.4 mg/dL 8.4-10.2 (test code = 697) AST (SGOT) (BEAKER) 23 U/L 5-34 (test code = 353) ALT (SGPT) (BEAKER) 19 U/L 6-55 (test code = 347) EGFR (BEAKER) (test 69 mL/min/1.73 ESTIMA NEELA GFR IS code = 1092) sq m NOT ACCURATE CREATININE CLEARANCE IN PREDICTING GLOMERULAR FILTRATION RATE . ESTIMATED GFR I S NOT APPLICABLE FOR DIALYSIS PATIEN TS. Stitcher Hand ID Sal WAN LLACTIC ACID, [id number] 03:29:15 Test Item Value Reference Range Interpretation Comments LACTATE BLOOD ARTERIAL (2) 1.1 mmol/L 0.5-2.2 (BEAKER) (test code = 2874) Stitcher Hand JESSICA Sal WAN LOXYGEN SATURATION, [id number] 03:27:57 Test Item Value Reference Range Interpretation Comments O2 SATURATION (MEASURED) (BEAKER) 78.0 % (test code = 1455) CBC W/PLT COUNT & AUTO [id number] 03:24:43 Test Item Value Reference Range Interpretation Comments WHITE BLOOD CELL COUNT 17.0 K/ L 3.5-10.5 H (BEAKER) (test code = 775) RED BLOOD CELL COUNT 2.87 M/ L 4.63-6.08 L (BEAKER) (test code = 761) HEMOGLOBIN (BEAKER) 9.0 GM/DL 13.7-17.5 L (test code = 410) HEMATOCRIT (BEAKER) 28.6 % 40.1-51.0 L (test code = 411) MEAN CORPUSCULAR 99.7 fL 79.0-92.2 H Discordant MCV VOLUME (BEAKER) (test result s compared to code = 753) previous result s; clinical correl ation required. MEAN CORPUSCULAR 31.4 pg 25.7-32.2 HEMOGLOBIN (BEAKER) (test code = 751) MEAN CORPUSCULAR 31.5 GM/DL 32.3-36.5 L HEMOGLOBIN CONC (BEAKER) (test code = 752) RED CELL DISTRIBUTION 18.9 % 11.6-14.4 H WIDTH (BEAKER) (test code = 412) PLATELET COUNT 294 K/CU MM 150-450 (BEAKER) (test code = 756) MEAN PLATELET VOLUME 10.2 fL 9.4-12.4 (BEAKER) (test code = 754) NUCLEATED RED BLOOD 0 /100 WBC 0-0 CELLS (BEAKER) (test code = 413) NEUTROPHILS RELATIVE 86 % PERCENT (BEAKER) (test code = 429) LYMPHOCYTES RELATIVE 6 % PERCENT (BEAKER) (test code = 430) MONOCYTES RELATIVE 4 % PERCENT (BEAKER) (test code = 431) EOSINOPHILS RELATIVE 1 % PERCENT (BEAKER) (test code = 432) BASOPHILS RELATIVE 0 % PERCENT (BEAKER) (test code = 437) NEUTROPHILS ABSOLUTE 14.59 K/ L 1.78-5.38 H COUNT (BEAKER) (test code = 670) LYMPHOCYTES ABSOLUTE 1.08 K/ L 1.32-3.57 L COUNT (BEAKER) (test code = 414) MONOCYTES ABSOLUTE 0.70 K/ L 0.30-0.82 COUNT (BEAKER) (test code = 415) EOSINOPHILS ABSOLUTE 0.14 K/ L 0.04-0.54 COUNT (BEAKER) (test code = 416) BASOPHILS ABSOLUTE 0.04 K/ L 0.01-0.08 COUNT (BEAKER) (test code = 417) IMMATURE 3 % 0-1 H GRANULOCYTES-RELATIVE PERCENT (BEAKER) (test code = 2801) COMPREHENSIVE METABOLIC [id number] 17:18:16 Test Item Value Reference Range Interpretation Comments TOTAL PROTEIN 7.1 gm/dL 6.0-8.3 Specimen moder ately (BEAKER) (test code = hemoly zed 770) ALBUMIN (BEAKER) 3.3 g/dL 3.5-5.0 L Specimen mo derately (test code = 1145) hemolyzed ALKALINE PHOSPHATASE 198 U/L 40-150 H (BEAKER) (test code = 346) BILIRUBIN TOTAL 0.6 mg/dL 0.2-1.2 Specimen mod erately (BEAKER) (test code = hemoly zed 377) SODIUM (BEAKER) (test 124 meq/L 136-145 L code = 381) POTASSIUM (BEAKER) 4.2 meq/L 3.5-5.1 Specimen moderately (test code = 379) hemolyzed CHLORIDE (BEAKER) 90 meq/L 98-107 L (test code = 382) CO2 (BEAKER) (test 23 meq/L 22-29 code = 355) BLOOD UREA NITROGEN 30 mg/dL 7-21 H (BEAKER) (test code = 354) CREATININE (BEAKER) 1.21 mg/dL 0.57-1.25 Specimen moderately (test code = 358) hemolyzed GLUCOSE RANDOM 239 mg/dL 70-105 H (BEAKER) (test code = 652) CALCIUM (BEAKER) 8.7 mg/dL 8.4-10.2 (test code = 697) AST (SGOT) (BEAKER) 33 U/L 5-34 Specimen moderately (test code = 353) hemolyzed ALT (SGPT) (BEAKER) 18 U/L 6-55 Specimen moderately (test code = 347) hemolyzed EGFR (BEAKER) (test 63 mL/min/1.73 ESTIMA NEELA GFR IS code = 1092) sq m NOT ACCURATE CREATININE CLEARANCE IN PREDICTING GLOMERULAR FILTRATION RATE . ESTIMATED GFR I S NOT APPLICABLE FOR DIALYSIS PATIEN TS. Stitcher Hand ID - [id number] 17:18:14 Test Item Value Reference Range Interpretation Comments MAGNESIUM (BEAKER) 2.2 mg/dL 1.6-2.6 Specimen moderately (test code = 627) hemolyzed Stitcher Hand ID - BSLACTIC ACID, [id number] 16:28:42 Test Item Value Reference Range Interpretation Comments LACTATE BLOOD ARTERIAL (2) 1.6 mmol/L 0.5-2.2 (BEAKER) (test code = 2874) Stitcher Hand ID - BSOXYGEN SATURATION, [id number] 16:20:00 Test Item Value Reference Range Interpretation Comments O2 SATURATION (MEASURED) (BEAKER) 45.9 % (test code = 1455) CBC W/PLT COUNT & AUTO [id number] 12:26:15 Test Item Value Reference Range Interpretation Comments WHITE BLOOD CELL COUNT (BEAKER) 14.1 K/ L 3.5-10.5 H (test code = 775) RED BLOOD CELL COUNT (BEAKER) 2.80 M/ L 4.63-6.08 L (test code = 761) HEMOGLOBIN (BEAKER) (test code = 8.8 GM/DL 13.7-17.5 L 410) HEMATOCRIT (BEAKER) (test code = 26.5 % 40.1-51.0 L 411) MEAN CORPUSCULAR VOLUME (BEAKER) 94.6 fL 79.0-92.2 H (test code = 753) MEAN CORPUSCULAR HEMOGLOBIN 31.4 pg 25.7-32.2 (BEAKER) (test code = 751) MEAN CORPUSCULAR HEMOGLOBIN CONC 33.2 GM/DL 32.3-36.5 (BEAKER) (test code = 752) RED CELL DISTRIBUTION WIDTH 18.7 % 11.6-14.4 H (BEAKER) (test code = 412) PLATELET COUNT (BEAKER) (test 229 K/CU MM 150-450 code = 756) MEAN PLATELET VOLUME (BEAKER) 10.2 fL 9.4-12.4 (test code = 754) NUCLEATED RED BLOOD CELLS 0 /100 WBC 0-0 (BEAKER) (test code = 413) NEUTROPHILS RELATIVE PERCENT 86 % (BEAKER) (test code = 429) LYMPHOCYTES RELATIVE PERCENT 6 % (BEAKER) (test code = 430) MONOCYTES RELATIVE PERCENT 5 % (BEAKER) (test code = 431) EOSINOPHILS RELATIVE PERCENT 1 % (BEAKER) (test code = 432) BASOPHILS RELATIVE PERCENT 0 % (BEAKER) (test code = 437) NEUTROPHILS ABSOLUTE COUNT 12.09 K/ L 1.78-5.38 H (BEAKER) (test code = 670) LYMPHOCYTES ABSOLUTE COUNT 0.85 K/ L 1.32-3.57 L (BEAKER) (test code = 414) MONOCYTES ABSOLUTE COUNT (BEAKER) 0.69 K/ L 0.30-0.82 (test code = 415) EOSINOPHILS ABSOLUTE COUNT 0.11 K/ L 0.04-0.54 (BEAKER) (test code = 416) BASOPHILS ABSOLUTE COUNT (BEAKER) 0.02 K/ L 0.01-0.08 (test code = 417) IMMATURE GRANULOCYTES-RELATIVE 2 % 0-1 H PERCENT (BEAKER) (test code = 2801) OXYGEN SATURATION, [id number] 12:04:06 Test Item Value Reference Range Interpretation Comments O2 SATURATION (MEASURED) (BEAKER) 47.9 % (test code = 1455) BASIC METABOLIC [id number] 11:04:15 Test Item Value Reference Range Interpretation Comments SODIUM (BEAKER) 127 meq/L 136-145 L (test code = 381) POTASSIUM (BEAKER) 4.4 meq/L 3.5-5.1 Specimen slightly (test code = 379) hemolyzed CHLORIDE (BEAKER) 91 meq/L 98-107 L (test code = 382) CO2 (BEAKER) (test 23 meq/L 22-29 code = 355) BLOOD UREA NITROGEN 30 mg/dL 7-21 H (BEAKER) (test code = 354) CREATININE (BEAKER) 1.03 mg/dL 0.57-1.25 Specimen slightly (test code = 358) hemolyzed GLUCOSE RANDOM 123 mg/dL 70-105 H (BEAKER) (test code = 652) CALCIUM (BEAKER) 9.3 mg/dL 8.4-10.2 (test code = 697) EGFR (BEAKER) (test 76 mL/min/1.73 ESTIMA NEELA GFR IS code = 1092) sq m NOT ACCURATE CREATININE CLEARANCE IN PREDICTING GLOMERULAR FILTRATION RATE . ESTIMATED GFR I S NOT APPLICABLE FOR DIALYSIS PATIEN TS. Stitcher Hand ID - ISREAL [id number] 11:04:14 Test Item Value Reference Range Interpretation Comments MAGNESIUM (BEAKER) 2.3 mg/dL 1.6-2.6 Specimen slightly (test code = 627) hemolyzed Stitcher Hand ID - ISREAL GRAD, CHEST, 1 VIEW, NON [id number] 10:48:00Reason for exam:->s/p chest tube removalShould this be performed at the bedside?->Yes [facility] DOB: 1970 Sex: MFINAL REPORT Chest, one view HISTORY: Status post chest tube removal Comparison: 09/20/2021, earlier study. Findings: Lungs: Lungs are clear. Heart: Severe cardiomegaly, unchanged from prior study. Pleura: No sizable pleural effusion or pneumothorax. Bones: Unremarkable. Lines/tubes: Unchanged in position. Signed: Jh Man Verified Date/Time: 09/20/2021 10:48:52 Reading Location: [address] Body Reading Room OXYGEN SATURATION, MEASURED 2021-09-20 10:37:05 Test Item Value Reference Range Interpretation Comments O2 SATURATION (MEASURED) (BEAKER) 95.6 % (test code = 1455) RAD, CHEST, 1 VIEW, NON [id number] 07:38:00Reason for exam:->s/p LVADShould this be performed at the bedside?->Yes [facility] : 1970 Sex: MFINAL REPORT RAD, CHEST, 1 VIEW, NON DEPT INDICATION: s/p LVAD COMPARISON: Prior day's exam FINDINGS: Portable frontal view of the chest. IMPRESSION: Support Lines: PICC tip overlies the atriocaval junction. Pacer device and cardiac support hardware are unchanged. Lungs and pleura: Lungs remain hypoinflated. Unchanged diffuse interstitial thickening, representing singly or in combination, interstitial edema and/or pneumonitis. No significant pneumothorax. Heart and mediastinum: Stable contours. Additional findings: None. Signed: Keila Sorto MDReport Verified Date/Time: 09/20/2021 07:38:30 [id number] 06:36:53 Test Item Value Reference Range Interpretation Comments MAGNESIUM (BEAKER) (test code = 2.3 mg/dL 1.6-2.6 627) Stitcher Hand ID - ISREAL GOperator ID - ISREAL GCOMPREHENSIVE METABOLIC PANEL 2021-09-20 05:36:07 Test Item Value Reference Range Interpretation Comments TOTAL PROTEIN 7.2 gm/dL 6.0-8.3 (BEAKER) (test code = 770) ALBUMIN (BEAKER) 3.5 g/dL 3.5-5.0 (test code = 1145) ALKALINE PHOSPHATASE 202 U/L 40-150 H (BEAKER) (test code = 346) BILIRUBIN TOTAL 0.8 mg/dL 0.2-1.2 (BEAKER) (test code = 377) SODIUM (BEAKER) (test 129 meq/L 136-145 L code = 381) POTASSIUM (BEAKER) 3.4 meq/L 3.5-5.1 L (test code = 379) CHLORIDE (BEAKER) 89 meq/L 98-107 L (test code = 382) CO2 (BEAKER) (test 26 meq/L 22-29 code = 355) BLOOD UREA NITROGEN 26 mg/dL 7-21 H (BEAKER) (test code = 354) CREATININE (BEAKER) 1.08 mg/dL 0.57-1.25 (test code = 358) GLUCOSE RANDOM 125 mg/dL 70-105 H (BEAKER) (test code = 652) CALCIUM (BEAKER) 9.3 mg/dL 8.4-10.2 (test code = 697) AST (SGOT) (BEAKER) 19 U/L 5-34 (test code = 353) ALT (SGPT) (BEAKER) 18 U/L 6-55 (test code = 347) EGFR (BEAKER) (test 72 mL/min/1.73 ESTIMA NEELA GFR IS code = 1092) sq m NOT ACCURATE CREATININE CLEARANCE IN PREDICTING GLOMERULAR FILTRATION RATE . ESTIMATED GFR I S NOT APPLICABLE FOR DIALYSIS PATIEN TS. Stitcher Hand ID - ISREAL GOperator ID - ISREAL GLACTATE DEHYDROGENASE (LDH)2021-09-20 05:03:16 Test Item Value Reference Range Interpretation Comments LACTATE DEHYDROGENASE (BEAKER) (test 362 U/L 125-220 H code = 635) Stitcher Hand ID - ISREAL [id number] 05:03:15 Test Item Value Reference Range Interpretation Comments PHOSPHORUS (BEAKER) (test code = 5.0 mg/dL 2.3-4.7 H 604) Stitcher Hand ID - ISREAL [id number] 04:30:57 Test Item Value Reference Range Interpretation Comments PARTIAL THROMBOPLASTIN TIME 63.0 seconds 22.5-36.0 H (BEAKER) (test code = 760) PROTHROMBIN [id number] 04:29:56 Test Item Value Reference Range Interpretation Comments PROTIME (BEAKER) 28.0 seconds 11.9-14.2 H (test code = 759) INR (BEAKER) (test 2.65 See_Comment [Automat ed message] code = 370) The system g4interactive generated this result transmitted ref erence range: <=5.90. The reference range was not used to int erpret this result as normal/abnormal . RECOMMENDED COUMADIN/WARFARIN INR THERAPY RANGESSTANDARD DOSE: 2.0 - 3.0 Includes: PROPHYLAXIS for venous thrombosis, systemic embolization; TREATMENT for venous thrombosis and/or pulmonary embolus.HIGH RISK: Target INR is 2.5-3.5 for patients with mechanical heart valves.CBC W/PLT COUNT & AUTO [id number] 04:28:39 Test Item Value Reference Range Interpretation Comments WHITE BLOOD CELL COUNT (BEAKER) 14.0 K/ L 3.5-10.5 H (test code = 775) RED BLOOD CELL COUNT (BEAKER) 2.86 M/ L 4.63-6.08 L (test code = 761) HEMOGLOBIN (BEAKER) (test code = 8.9 GM/DL 13.7-17.5 L 410) HEMATOCRIT (BEAKER) (test code = 26.7 % 40.1-51.0 L 411) MEAN CORPUSCULAR VOLUME (BEAKER) 93.4 fL 79.0-92.2 H (test code = 753) MEAN CORPUSCULAR HEMOGLOBIN 31.1 pg 25.7-32.2 (BEAKER) (test code = 751) MEAN CORPUSCULAR HEMOGLOBIN CONC 33.3 GM/DL 32.3-36.5 (BEAKER) (test code = 752) RED CELL DISTRIBUTION WIDTH 18.3 % 11.6-14.4 H (BEAKER) (test code = 412) PLATELET COUNT (BEAKER) (test 214 K/CU MM 150-450 code = 756) MEAN PLATELET VOLUME (BEAKER) 10.2 fL 9.4-12.4 (test code = 754) NUCLEATED RED BLOOD CELLS 0 /100 WBC 0-0 (BEAKER) (test code = 413) NEUTROPHILS RELATIVE PERCENT 83 % (BEAKER) (test code = 429) LYMPHOCYTES RELATIVE PERCENT 7 % (BEAKER) (test code = 430) MONOCYTES RELATIVE PERCENT 5 % (BEAKER) (test code = 431) EOSINOPHILS RELATIVE PERCENT 1 % (BEAKER) (test code = 432) BASOPHILS RELATIVE PERCENT 0 % (BEAKER) (test code = 437) NEUTROPHILS ABSOLUTE COUNT 11.58 K/ L 1.78-5.38 H (BEAKER) (test code = 670) LYMPHOCYTES ABSOLUTE COUNT 1.00 K/ L 1.32-3.57 L (BEAKER) (test code = 414) MONOCYTES ABSOLUTE COUNT (BEAKER) 0.68 K/ L 0.30-0.82 (test code = 415) EOSINOPHILS ABSOLUTE COUNT 0.14 K/ L 0.04-0.54 (BEAKER) (test code = 416) BASOPHILS ABSOLUTE COUNT (BEAKER) 0.04 K/ L 0.01-0.08 (test code = 417) IMMATURE GRANULOCYTES-RELATIVE 4 % 0-1 H PERCENT (BEAKER) (test code = 2806) LACTIC ACID, [id number] 04:25:55 Test Item Value Reference Range Interpretation Comments LACTATE BLOOD ARTERIAL (2) 0.6 mmol/L 0.5-2.2 (BEAKER) (test code = 4064) Stitcher Hand ID - ADMINBLOOD GAS, [id number] 04:15:47 Test Item Value Reference Range Interpretation Comments PH ARTERIAL (BEAKER) (test code = 7.46 7.35-7.45 H 383) PCO2 ARTERIAL (BEAKER) (test code 40 mm Hg 35-45 = 384) PO2 ARTERIAL (BEAKER) (test code = 88 mm Hg 80-90 385) O2 SATURATION ARTERIAL (BEAKER) 97.3 % 96.0-97.0 H (test code = 386) HCO3 ARTERIAL (BEAKER) (test code 28 mmol/L 21-29 = 388) BASE EXCESS ARTERIAL (BEAKER) 4.1 mmol/L -2.0-3.0 H (test code = 387) PATIENT TEMPERATURE (BEAKER) (test 36.4 code = 1818) FIO2 (BEAKER) (test code = 1819) 21.0 OXYGEN SATURATION, [id number] 04:15:09 Test Item Value Reference Range Interpretation Comments O2 SATURATION (MEASURED) (BEAKER) 71.2 % (test code = 1455) [id number] 00:34:57 Test Item Value Reference Range Interpretation Comments SODIUM (BEAKER) (test code = 381) 127 meq/L 136-145 L Stitcher Hand ID - [id number] 00:20:08 Test Item Value Reference Range Interpretation Comments POTASSIUM (BEAKER) 3.6 meq/L 3.5-5.1 Specimen slightly (test code = 379) hemolyzed Stitcher Hand ID - [id number] 00:20:07 Test Item Value Reference Range Interpretation Comments MAGNESIUM (BEAKER) 2.3 mg/dL 1.6-2.6 Specimen slightly (test code = 627) hemolyzed Stitcher Hand ID - ADMINPOCT-GLUCOSE [id number] 22:12:04 Test Item Value Reference Range Interpretation Comments POC-GLUCOSE METER 122 mg/dL 70-110 H : TESTED A T [facility] 6720 (BEAKER) (test code = [place], 1538) [address]: Stitcher Hand/Techni ebenezer ID = [id number] for DELMAR GASPAR COMPREHENSIVE METABOLIC [id number] 19:44:18 Test Item Value Reference Range Interpretation Comments TOTAL PROTEIN 7.7 gm/dL 6.0-8.3 Specimen moder ately (BEAKER) (test code = hemoly zed 770) ALBUMIN (BEAKER) 3.4 g/dL 3.5-5.0 L Specimen mo derately (test code = 1145) hemolyzed ALKALINE PHOSPHATASE 225 U/L 40-150 H (BEAKER) (test code = 346) BILIRUBIN TOTAL 0.8 mg/dL 0.2-1.2 Specimen mod erately (BEAKER) (test code = hemoly zed 377) SODIUM (BEAKER) (test 119 meq/L 136-145 LL code = 381) POTASSIUM (BEAKER) 3.8 meq/L 3.5-5.1 Specimen moderately (test code = 379) hemolyzed CHLORIDE (BEAKER) 84 meq/L 98-107 L (test code = 382) CO2 (BEAKER) (test 25 meq/L 22-29 code = 355) BLOOD UREA NITROGEN 30 mg/dL 7-21 H (BEAKER) (test code = 354) CREATININE (BEAKER) 1.25 mg/dL 0.57-1.25 Specimen moderately (test code = 358) hemolyzed GLUCOSE RANDOM 121 mg/dL 70-105 H (BEAKER) (test code = 652) CALCIUM (BEAKER) 8.9 mg/dL 8.4-10.2 (test code = 697) AST (SGOT) (BEAKER) 31 U/L 5-34 Specimen moderately (test code = 353) hemolyzed ALT (SGPT) (BEAKER) 18 U/L 6-55 Specimen moderately (test code = 347) hemolyzed EGFR (BEAKER) (test 61 mL/min/1.73 ESTIMA NEELA GFR IS code = 1092) sq m NOT ACCURATE CREATININE CLEARANCE IN PREDICTING GLOMERULAR FILTRATION RATE . ESTIMATED GFR I S NOT APPLICABLE FOR DIALYSIS PATIEN TS. Stitcher Hand ID - OCT [id number] 19:40:42 Test Item Value Reference Range Interpretation Comments MAGNESIUM (BEAKER) 2.5 mg/dL 1.6-2.6 Specimen moderately (test code = 627) hemolyzed Stitcher Hand ID - OCT CLACTIC ACID, [id number] 19:35:03 Test Item Value Reference Range Interpretation Comments LACTATE BLOOD ARTERIAL (2) 0.8 mmol/L 0.5-2.2 (BEAKER) (test code = 2874) Stitcher Hand ID - OCT CCBC W/PLT COUNT & AUTO [id number] 19:25:52 Test Item Value Reference Range Interpretation Comments WHITE BLOOD CELL COUNT (BEAKER) 17.9 K/ L 3.5-10.5 H (test code = 775) RED BLOOD CELL COUNT (BEAKER) 2.90 M/ L 4.63-6.08 L (test code = 761) HEMOGLOBIN (BEAKER) (test code = 9.3 GM/DL 13.7-17.5 L 410) HEMATOCRIT (BEAKER) (test code = 27.0 % 40.1-51.0 L 411) MEAN CORPUSCULAR VOLUME (BEAKER) 93.1 fL 79.0-92.2 H (test code = 753) MEAN CORPUSCULAR HEMOGLOBIN 32.1 pg 25.7-32.2 (BEAKER) (test code = 751) MEAN CORPUSCULAR HEMOGLOBIN CONC 34.4 GM/DL 32.3-36.5 (BEAKER) (test code = 752) RED CELL DISTRIBUTION WIDTH 18.5 % 11.6-14.4 H (BEAKER) (test code = 412) PLATELET COUNT (BEAKER) (test 239 K/CU MM 150-450 code = 756) MEAN PLATELET VOLUME (BEAKER) 10.4 fL 9.4-12.4 (test code = 754) NUCLEATED RED BLOOD CELLS 0 /100 WBC 0-0 (BEAKER) (test code = 413) NEUTROPHILS RELATIVE PERCENT 86 % (BEAKER) (test code = 429) LYMPHOCYTES RELATIVE PERCENT 5 % (BEAKER) (test code = 430) MONOCYTES RELATIVE PERCENT 4 % (BEAKER) (test code = 431) EOSINOPHILS RELATIVE PERCENT 1 % (BEAKER) (test code = 432) BASOPHILS RELATIVE PERCENT 0 % (BEAKER) (test code = 437) NEUTROPHILS ABSOLUTE COUNT 15.42 K/ L 1.78-5.38 H (BEAKER) (test code = 670) LYMPHOCYTES ABSOLUTE COUNT 0.91 K/ L 1.32-3.57 L (BEAKER) (test code = 414) MONOCYTES ABSOLUTE COUNT (BEAKER) 0.76 K/ L 0.30-0.82 (test code = 415) EOSINOPHILS ABSOLUTE COUNT 0.12 K/ L 0.04-0.54 (BEAKER) (test code = 416) BASOPHILS ABSOLUTE COUNT (BEAKER) 0.05 K/ L 0.01-0.08 (test code = 417) IMMATURE GRANULOCYTES-RELATIVE 4 % 0-1 H PERCENT (BEAKER) (test code = 2801) BASIC METABOLIC [id number] 13:53:27 Test Item Value Reference Range Interpretation Comments SODIUM (BEAKER) 125 meq/L 136-145 L (test code = 381) POTASSIUM (BEAKER) 3.7 meq/L 3.5-5.1 Specimen slightly (test code = 379) hemolyzed CHLORIDE (BEAKER) 87 meq/L 98-107 L (test code = 382) CO2 (BEAKER) (test 25 meq/L 22-29 code = 355) BLOOD UREA NITROGEN 29 mg/dL 7-21 H (BEAKER) (test code = 354) CREATININE (BEAKER) 1.36 mg/dL 0.57-1.25 H Specimen slightly (test code = 358) hemolyzed GLUCOSE RANDOM 273 mg/dL 70-105 H (BEAKER) (test code = 652) CALCIUM (BEAKER) 9.2 mg/dL 8.4-10.2 (test code = 697) EGFR (BEAKER) (test 55 mL/min/1.73 ESTIMA NEELA GFR IS code = 1092) sq m NOT ACCURATE CREATININE CLEARANCE IN PREDICTING GLOMERULAR FILTRATION RATE . ESTIMATED GFR I S NOT APPLICABLE FOR DIALYSIS PATIEN TS. Stitcher Hand ID - [id number] 13:53:26 Test Item Value Reference Range Interpretation Comments MAGNESIUM (BEAKER) 2.1 mg/dL 1.6-2.6 Specimen slightly (test code = 627) hemolyzed Stitcher Hand ID - ADMINOXYGEN SATURATION, [id number] 13:45:39 Test Item Value Reference Range Interpretation Comments O2 SATURATION (MEASURED) (BEAKER) 54.7 % (test code = 1455) RAD, CHEST, 1 VIEW, NON [id number] 13:40:00Reason for exam:->PICC line insertionShould this be performed at the bedside?->Yes [facility] 1970 Sex: MFINAL REPORT CLINICAL HISTORY: PICC line insertion TECHNIQUE: 1 view of the chest. COMPARISON: 09/19/2021 IMPRESSION: There is a new right PICC line near the cavoatrial junction. The [place] catheter has been removed. Mild lung opacities are again seen with blunting of both costophrenic angles. The cardiomediastinal silhouette is magnified by technique with sternotomy wires, pacemaker, and LVAD. Signed: Constantine Araiza MDReport Verified Date/Time: 09/19/2021 13:40:30 Reading Location: [facility] Radiology Reading Room PROTHROMBIN TIME/[id number] 13:14:34 Test Item Value Reference Range Interpretation Comments PROTIME (BEAKER) 25.4 seconds 11.9-14.2 H (test code = 759) INR (BEAKER) (test 2.34 See_Comment [Automat ed message] code = 370) The system g4interactive generated this result transmitted ref erence range: <=5.90. The reference range was not used to int erpret this result as normal/abnormal . RECOMMENDED COUMADIN/WARFARIN INR THERAPY RANGESSTANDARD DOSE: 2.0 - 3.0 Includes: PROPHYLAXIS for venous thrombosis, systemic embolization; TREATMENT for venous thrombosis and/or pulmonary embolus.HIGH RISK: Target INR is 2.5-3.5 for patients with mechanical heart valves.CBC W/PLT COUNT & AUTO [id number] 13:08:32 Test Item Value Reference Range Interpretation Comments WHITE BLOOD CELL COUNT (BEAKER) 19.6 K/ L 3.5-10.5 H (test code = 775) RED BLOOD CELL COUNT (BEAKER) 2.97 M/ L 4.63-6.08 L (test code = 761) HEMOGLOBIN (BEAKER) (test code = 9.2 GM/DL 13.7-17.5 L 410) HEMATOCRIT (BEAKER) (test code = 28.1 % 40.1-51.0 L 411) MEAN CORPUSCULAR VOLUME (BEAKER) 94.6 fL 79.0-92.2 H (test code = 753) MEAN CORPUSCULAR HEMOGLOBIN 31.0 pg 25.7-32.2 (BEAKER) (test code = 751) MEAN CORPUSCULAR HEMOGLOBIN CONC 32.7 GM/DL 32.3-36.5 (BEAKER) (test code = 752) RED CELL DISTRIBUTION WIDTH 18.7 % 11.6-14.4 H (BEAKER) (test code = 412) PLATELET COUNT (BEAKER) (test 201 K/CU MM 150-450 code = 756) MEAN PLATELET VOLUME (BEAKER) 10.2 fL 9.4-12.4 (test code = 754) NUCLEATED RED BLOOD CELLS 0 /100 WBC 0-0 (BEAKER) (test code = 413) NEUTROPHILS RELATIVE PERCENT 85 % (BEAKER) (test code = 429) LYMPHOCYTES RELATIVE PERCENT 5 % (BEAKER) (test code = 430) MONOCYTES RELATIVE PERCENT 4 % (BEAKER) (test code = 431) EOSINOPHILS RELATIVE PERCENT 1 % (BEAKER) (test code = 432) BASOPHILS RELATIVE PERCENT 0 % (BEAKER) (test code = 437) NEUTROPHILS ABSOLUTE COUNT 16.64 K/ L 1.78-5.38 H (BEAKER) (test code = 670) LYMPHOCYTES ABSOLUTE COUNT 0.92 K/ L 1.32-3.57 L (BEAKER) (test code = 414) MONOCYTES ABSOLUTE COUNT (BEAKER) 0.87 K/ L 0.30-0.82 H (test code = 415) EOSINOPHILS ABSOLUTE COUNT 0.18 K/ L 0.04-0.54 (BEAKER) (test code = 416) BASOPHILS ABSOLUTE COUNT (BEAKER) 0.04 K/ L 0.01-0.08 (test code = 417) IMMATURE GRANULOCYTES-RELATIVE 5 % 0-1 H PERCENT (BEAKER) (test code = 2801) RAD, CHEST, 1 VIEW, NON [id number] 09:57:00Reason for exam:->s/p LVADShould this be performed at the bedside?->Yes [facility] 1970 Sex: MFINAL REPORT CLINICAL HISTORY: s/p LVAD TECHNIQUE: 1 view of the chest. COMPARISON:09/18/2021 IMPRESSION: The feeding tube is removed. A [place] catheter is unchanged. Diffuse airspace opacities are unchanged. Small pleural effusions are again suspected. Cardiomegaly is again seen poststernotomy with a pacemaker and LVAD. Signed: Constantine Araiza MDReport Verified Date/Time: 09:57:04 Reading Location: [facility] Radiology Reading Room [id number] 06:48:04 Test Item Value Reference Range Interpretation Comments PARTIAL THROMBOPLASTIN TIME 64.5 seconds 22.5-36.0 H (BEAKER) (test code = 760) PROTHROMBIN TIME/[id number] 06:46:50 Test Item Value Reference Range Interpretation Comments PROTIME (BEAKER) 23.4 seconds 11.9-14.2 H (test code = 759) INR (BEAKER) (test 2.11 See_Comment [Automat ed message] code = 370) The system g4interactive generated this result transmitted ref erence range: <=5.90. The reference range was not used to int erpret this result as normal/abnormal . RECOMMENDED COUMADIN/WARFARIN INR THERAPY RANGESSTANDARD DOSE: 2.0 - 3.0 Includes: PROPHYLAXIS for venous thrombosis, systemic embolization; TREATMENT for venous thrombosis and/or pulmonary embolus.HIGH RISK: Target INR is 2.5-3.5 for patients with mechanical heart valves.OXYGEN SATURATION, [id number] 04:32:01 Test Item Value Reference Range Interpretation Comments O2 SATURATION (MEASURED) (BEAKER) 58.5 % (test code = 1455) BLOOD GAS, [id number] 04:01:17 Test Item Value Reference Range Interpretation Comments PH ARTERIAL (BEAKER) (test code = 7.46 7.35-7.45 H 383) PCO2 ARTERIAL (BEAKER) (test code 41 mm Hg 35-45 = 384) PO2 ARTERIAL (BEAKER) (test code = 90 mm Hg 80-90 385) O2 SATURATION ARTERIAL (BEAKER) 97.4 % 96.0-97.0 H (test code = 386) HCO3 ARTERIAL (BEAKER) (test code 28 mmol/L 21-29 = 388) BASE EXCESS ARTERIAL (BEAKER) 3.9 mmol/L -2.0-3.0 H (test code = 387) PATIENT TEMPERATURE (BEAKER) (test 36.6 code = 1818) FIO2 (BEAKER) (test code = 1819) 21.0 [id number] 03:08:52 Test Item Value Reference Range Interpretation Comments PARTIAL THROMBOPLASTIN TIME 131.0 seconds 22.5-36.0 H (BEAKER) (test code = 760) CBC W/PLT COUNT & AUTO [id number] 02:47:53 Test Item Value Reference Range Interpretation Comments WHITE BLOOD CELL COUNT (BEAKER) 15.4 K/ L 3.5-10.5 H (test code = 775) RED BLOOD CELL COUNT (BEAKER) 2.89 M/ L 4.63-6.08 L (test code = 761) HEMOGLOBIN (BEAKER) (test code = 9.1 GM/DL 13.7-17.5 L 410) HEMATOCRIT (BEAKER) (test code = 27.1 % 40.1-51.0 L 411) MEAN CORPUSCULAR VOLUME (BEAKER) 93.8 fL 79.0-92.2 H (test code = 753) MEAN CORPUSCULAR HEMOGLOBIN 31.5 pg 25.7-32.2 (BEAKER) (test code = 751) MEAN CORPUSCULAR HEMOGLOBIN CONC 33.6 GM/DL 32.3-36.5 (BEAKER) (test code = 752) RED CELL DISTRIBUTION WIDTH 18.3 % 11.6-14.4 H (BEAKER) (test code = 412) PLATELET COUNT (BEAKER) (test 178 K/CU MM 150-450 code = 756) MEAN PLATELET VOLUME (BEAKER) 10.2 fL 9.4-12.4 (test code = 754) NUCLEATED RED BLOOD CELLS 0 /100 WBC 0-0 (BEAKER) (test code = 413) NEUTROPHILS RELATIVE PERCENT 83 % (BEAKER) (test code = 429) LYMPHOCYTES RELATIVE PERCENT 8 % (BEAKER) (test code = 430) MONOCYTES RELATIVE PERCENT 5 % (BEAKER) (test code = 431) EOSINOPHILS RELATIVE PERCENT 2 % (BEAKER) (test code = 432) BASOPHILS RELATIVE PERCENT 0 % (BEAKER) (test code = 437) NEUTROPHILS ABSOLUTE COUNT 12.79 K/ L 1.78-5.38 H (BEAKER) (test code = 670) LYMPHOCYTES ABSOLUTE COUNT 1.26 K/ L 1.32-3.57 L (BEAKER) (test code = 414) MONOCYTES ABSOLUTE COUNT (BEAKER) 0.73 K/ L 0.30-0.82 (test code = 415) EOSINOPHILS ABSOLUTE COUNT 0.23 K/ L 0.04-0.54 (BEAKER) (test code = 416) BASOPHILS ABSOLUTE COUNT (BEAKER) 0.02 K/ L 0.01-0.08 (test code = 417) IMMATURE GRANULOCYTES-RELATIVE 3 % 0-1 H PERCENT (BEAKER) (test code = 2801) LACTATE DEHYDROGENASE (LDH)2021-09-19 02:46:35 Test Item Value Reference Range Interpretation Comments LACTATE DEHYDROGENASE 501 U/L 125-220 H Specim en slightly (BEAKER) (test code = hemoly zed 635) Stitcher Hand ID - FAUZIA [id number] 02:44:53 Test Item Value Reference Range Interpretation Comments PHOSPHORUS (BEAKER) 4.3 mg/dL 2.3-4.7 Specimen slightly (test code = 604) hemolyzed Stitcher Hand ID - FAUZIA WCOMPREHENSIVE METABOLIC [id number] 02:44:53 Test Item Value Reference Range Interpretation Comments TOTAL PROTEIN 7.5 gm/dL 6.0-8.3 Specimen sligh tly (BEAKER) (test code = hemoly zed 770) ALBUMIN (BEAKER) 3.5 g/dL 3.5-5.0 Specimen sl ightly (test code = 1145) hemolyzed ALKALINE PHOSPHATASE 213 U/L 40-150 H (BEAKER) (test code = 346) BILIRUBIN TOTAL 0.7 mg/dL 0.2-1.2 Specimen sli ghtly (BEAKER) (test code = hemoly zed 377) SODIUM (BEAKER) (test 132 meq/L 136-145 L code = 381) POTASSIUM (BEAKER) 3.7 meq/L 3.5-5.1 Specimen slightly (test code = 379) hemolyzed CHLORIDE (BEAKER) 92 meq/L 98-107 L (test code = 382) CO2 (BEAKER) (test 27 meq/L 22-29 code = 355) BLOOD UREA NITROGEN 26 mg/dL 7-21 H (BEAKER) (test code = 354) CREATININE (BEAKER) 1.04 mg/dL 0.57-1.25 Specimen slightly (test code = 358) hemolyzed GLUCOSE RANDOM 112 mg/dL 70-105 H (BEAKER) (test code = 652) CALCIUM (BEAKER) 9.6 mg/dL 8.4-10.2 (test code = 697) AST (SGOT) (BEAKER) 25 U/L 5-34 Specimen slightly (test code = 353) hemolyzed ALT (SGPT) (BEAKER) 20 U/L 6-55 Specimen slightly (test code = 347) hemolyzed EGFR (BEAKER) (test 76 mL/min/1.73 ESTIMA NEELA GFR IS code = 1092) sq m NOT ACCURATE CREATININE CLEARANCE IN PREDICTING GLOMERULAR FILTRATION RATE . ESTIMATED GFR I S NOT APPLICABLE FOR DIALYSIS PATIEN TS. Stitcher Hand ID - FAUZIA [id number] 02:44:52 Test Item Value Reference Range Interpretation Comments MAGNESIUM (BEAKER) 2.3 mg/dL 1.6-2.6 Specimen slightly (test code = 627) hemolyzed Stitcher Hand ID - FAUIZA WLACTIC ACID, [id number] 02:43:33 Test Item Value Reference Range Interpretation Comments LACTATE BLOOD 0.7 mmol/L 0.5-2.2 Specimen sligh tly ARTERIAL (2) (BEAKER) hemoly zed (test code = 2874) Stitcher Hand ID - FAUZIA WPOCT-GLUCOSE [id number] 01:03:15 Test Item Value Reference Range Interpretation Comments POC-GLUCOSE METER 127 mg/dL 70-110 H : TESTED A T [facility] 6720 (BEAKER) (test code = [place], 1538) [id number]: Stitcher Hand/Techni ebenezer ID = [id number] for Aki Maya BASIC METABOLIC [id number] 22:10:07 Test Item Value Reference Range Interpretation Comments SODIUM (BEAKER) 132 meq/L 136-145 L (test code = 381) POTASSIUM (BEAKER) 3.8 meq/L 3.5-5.1 Specimen slightly (test code = 379) hemolyzed CHLORIDE (BEAKER) 93 meq/L 98-107 L (test code = 382) CO2 (BEAKER) (test 25 meq/L 22-29 code = 355) BLOOD UREA NITROGEN 27 mg/dL 7-21 H (BEAKER) (test code = 354) CREATININE (BEAKER) 0.98 mg/dL 0.57-1.25 Specimen slightly (test code = 358) hemolyzed GLUCOSE RANDOM 117 mg/dL 70-105 H (BEAKER) (test code = 652) CALCIUM (BEAKER) 9.8 mg/dL 8.4-10.2 (test code = 697) EGFR (BEAKER) (test 81 mL/min/1.73 ESTIMA NEELA GFR IS code = 1092) sq m NOT ACCURATE CREATININE CLEARANCE IN PREDICTING GLOMERULAR FILTRATION RATE . ESTIMATED GFR I S NOT APPLICABLE FOR DIALYSIS PATIEN TS. Stitcher Hand ID - [id number] 22:10:06 Test Item Value Reference Range Interpretation Comments MAGNESIUM (BEAKER) 2.3 mg/dL 1.6-2.6 Specimen slightly (test code = 627) hemolyzed Stitcher Hand ID - DBCBC W/PLT COUNT & AUTO [id number] 21:55:30 Test Item Value Reference Range Interpretation Comments WHITE BLOOD CELL COUNT (BEAKER) 16.0 K/ L 3.5-10.5 H (test code = 775) RED BLOOD CELL COUNT (BEAKER) 2.87 M/ L 4.63-6.08 L (test code = 761) HEMOGLOBIN (BEAKER) (test code = 9.0 GM/DL 13.7-17.5 L 410) HEMATOCRIT (BEAKER) (test code = 26.6 % 40.1-51.0 L 411) MEAN CORPUSCULAR VOLUME (BEAKER) 92.7 fL 79.0-92.2 H (test code = 753) MEAN CORPUSCULAR HEMOGLOBIN 31.4 pg 25.7-32.2 (BEAKER) (test code = 751) MEAN CORPUSCULAR HEMOGLOBIN CONC 33.8 GM/DL 32.3-36.5 (BEAKER) (test code = 752) RED CELL DISTRIBUTION WIDTH 17.9 % 11.6-14.4 H (BEAKER) (test code = 412) PLATELET COUNT (BEAKER) (test 183 K/CU MM 150-450 code = 756) MEAN PLATELET VOLUME (BEAKER) 9.7 fL 9.4-12.4 (test code = 754) NUCLEATED RED BLOOD CELLS 0 /100 WBC 0-0 (BEAKER) (test code = 413) NEUTROPHILS RELATIVE PERCENT 84 % (BEAKER) (test code = 429) LYMPHOCYTES RELATIVE PERCENT 7 % (BEAKER) (test code = 430) MONOCYTES RELATIVE PERCENT 4 % (BEAKER) (test code = 431) EOSINOPHILS RELATIVE PERCENT 1 % (BEAKER) (test code = 432) BASOPHILS RELATIVE PERCENT 0 % (BEAKER) (test code = 437) NEUTROPHILS ABSOLUTE COUNT 13.43 K/ L 1.78-5.38 H (BEAKER) (test code = 670) LYMPHOCYTES ABSOLUTE COUNT 1.17 K/ L 1.32-3.57 L (BEAKER) (test code = 414) MONOCYTES ABSOLUTE COUNT (BEAKER) 0.66 K/ L 0.30-0.82 (test code = 415) EOSINOPHILS ABSOLUTE COUNT 0.22 K/ L 0.04-0.54 (BEAKER) (test code = 416) BASOPHILS ABSOLUTE COUNT (BEAKER) 0.03 K/ L 0.01-0.08 (test code = 417) IMMATURE GRANULOCYTES-RELATIVE 3 % 0-1 H PERCENT (BEAKER) (test code = 2801) POCT-GLUCOSE [id number] 21:55:08 Test Item Value Reference Range Interpretation Comments POC-GLUCOSE METER 112 mg/dL 70-110 H : TESTED A T [facility] [address] (BEAKER) (test code = [place], 1538) [id number]: Stitcher Hand/Techni ebenezer ID = [id number] for PRINCESS ARTUR RAMIREZ COMPREHENSIVE METABOLIC [id number] 17:36:20 Test Item Value Reference Range Interpretation Comments TOTAL PROTEIN 7.2 gm/dL 6.0-8.3 Specimen sligh tly (BEAKER) (test code = hemoly zed 770) ALBUMIN (BEAKER) 3.4 g/dL 3.5-5.0 L Specimen sl ightly (test code = 1145) hemolyzed ALKALINE PHOSPHATASE 205 U/L 40-150 H (BEAKER) (test code = 346) BILIRUBIN TOTAL 0.8 mg/dL 0.2-1.2 Specimen sli ghtly (BEAKER) (test code = hemoly zed 377) SODIUM (BEAKER) (test 131 meq/L 136-145 L code = 381) POTASSIUM (BEAKER) 3.7 meq/L 3.5-5.1 Specimen slightly (test code = 379) hemolyzed CHLORIDE (BEAKER) 93 meq/L 98-107 L (test code = 382) CO2 (BEAKER) (test 27 meq/L 22-29 code = 355) BLOOD UREA NITROGEN 25 mg/dL 7-21 H (BEAKER) (test code = 354) CREATININE (BEAKER) 0.90 mg/dL 0.57-1.25 Specimen slightly (test code = 358) hemolyzed GLUCOSE RANDOM 120 mg/dL 70-105 H (BEAKER) (test code = 652) CALCIUM (BEAKER) 9.2 mg/dL 8.4-10.2 (test code = 697) AST (SGOT) (BEAKER) 24 U/L 5-34 Specimen slightly (test code = 353) hemolyzed ALT (SGPT) (BEAKER) 20 U/L 6-55 Specimen slightly (test code = 347) hemolyzed EGFR (BEAKER) (test 89 mL/min/1.73 ESTIMA NEELA GFR IS code = 1092) sq m NOT ACCURATE CREATININE CLEARANCE IN PREDICTING GLOMERULAR FILTRATION RATE . ESTIMATED GFR I S NOT APPLICABLE FOR DIALYSIS PATIEN TS. Stitcher Hand ID - [id number] 17:36:19 Test Item Value Reference Range Interpretation Comments MAGNESIUM (BEAKER) 2.3 mg/dL 1.6-2.6 Specimen slightly (test code = 627) hemolyzed Stitcher Hand ID - DBLACTIC ACID, [id number] 17:23:35 Test Item Value Reference Range Interpretation Comments LACTATE BLOOD 0.8 mmol/L 0.5-2.2 Specimen sligh tly ARTERIAL (2) (BEAKER) hemoly zed (test code = 2874) Stitcher Hand ID - DBOXYGEN SATURATION, [id number] 15:04:45 Test Item Value Reference Range Interpretation Comments O2 SATURATION (MEASURED) (BEAKER) 56.9 % (test code = 1455) CBC W/PLT COUNT & AUTO [id number] 13:44:06 Test Item Value Reference Range Interpretation Comments WHITE BLOOD CELL COUNT (BEAKER) 17.5 K/ L 3.5-10.5 H (test code = 775) RED BLOOD CELL COUNT (BEAKER) 2.82 M/ L 4.63-6.08 L (test code = 761) HEMOGLOBIN (BEAKER) (test code = 9.1 GM/DL 13.7-17.5 L 410) HEMATOCRIT (BEAKER) (test code = 27.2 % 40.1-51.0 L 411) MEAN CORPUSCULAR VOLUME (BEAKER) 96.5 fL 79.0-92.2 H (test code = 753) MEAN CORPUSCULAR HEMOGLOBIN 32.3 pg 25.7-32.2 H (BEAKER) (test code = 751) MEAN CORPUSCULAR HEMOGLOBIN CONC 33.5 GM/DL 32.3-36.5 (BEAKER) (test code = 752) RED CELL DISTRIBUTION WIDTH 18.2 % 11.6-14.4 H (BEAKER) (test code = 412) PLATELET COUNT (BEAKER) (test 190 K/CU MM 150-450 code = 756) MEAN PLATELET VOLUME (BEAKER) 10.1 fL 9.4-12.4 (test code = 754) NUCLEATED RED BLOOD CELLS 0 /100 WBC 0-0 (BEAKER) (test code = 413) NEUTROPHILS RELATIVE PERCENT 87 % (BEAKER) (test code = 429) LYMPHOCYTES RELATIVE PERCENT 5 % (BEAKER) (test code = 430) MONOCYTES RELATIVE PERCENT 4 % (BEAKER) (test code = 431) EOSINOPHILS RELATIVE PERCENT 1 % (BEAKER) (test code = 432) BASOPHILS RELATIVE PERCENT 0 % (BEAKER) (test code = 437) NEUTROPHILS ABSOLUTE COUNT 15.15 K/ L 1.78-5.38 H (BEAKER) (test code = 670) LYMPHOCYTES ABSOLUTE COUNT 0.92 K/ L 1.32-3.57 L (BEAKER) (test code = 414) MONOCYTES ABSOLUTE COUNT (BEAKER) 0.75 K/ L 0.30-0.82 (test code = 415) EOSINOPHILS ABSOLUTE COUNT 0.20 K/ L 0.04-0.54 (BEAKER) (test code = 416) BASOPHILS ABSOLUTE COUNT (BEAKER) 0.04 K/ L 0.01-0.08 (test code = 417) IMMATURE GRANULOCYTES-RELATIVE 2 % 0-1 H PERCENT (BEAKER) (test code = 2801) POCT-GLUCOSE [id number] 12:24:28 Test Item Value Reference Range Interpretation Comments POC-GLUCOSE METER 129 mg/dL 70-110 H : TESTED A T [facility] [address] (BEAKER) (test code = [place], 1538) [id number]: Stitcher Hand/Techni ebenezer ID = [id number] for Pr Jaime ospina [id number] 11:23:58 Test Item Value Reference Range Interpretation Comments MAGNESIUM (BEAKER) (test code = 2.0 mg/dL 1.6-2.6 627) Stitcher Hand ID - PIAYA LBASIC METABOLIC [id number] 11:23:57 Test Item Value Reference Range Interpretation Comments SODIUM (BEAKER) 130 meq/L 136-145 L (test code = 381) POTASSIUM (BEAKER) 3.3 meq/L 3.5-5.1 L (test code = 379) CHLORIDE (BEAKER) 92 meq/L 98-107 L (test code = 382) CO2 (BEAKER) (test 28 meq/L 22-29 code = 355) BLOOD UREA NITROGEN 24 mg/dL 7-21 H (BEAKER) (test code = 354) CREATININE (BEAKER) 0.87 mg/dL 0.57-1.25 (test code = 358) GLUCOSE RANDOM 160 mg/dL 70-105 H (BEAKER) (test code = 652) CALCIUM (BEAKER) 9.0 mg/dL 8.4-10.2 (test code = 697) EGFR (BEAKER) (test 93 mL/min/1.73 ESTIMA NEELA GFR IS code = 1092) sq m NOT ACCURATE CREATININE CLEARANCE IN PREDICTING GLOMERULAR FILTRATION RATE . ESTIMATED GFR I S NOT APPLICABLE FOR DIALYSIS PATIEN TS. Stitcher Hand ID - SOCO LURINALYSIS W/ REFLEX URINE [id number] 06:46:02 Test Item Value Reference Range Interpretation Comments COLOR (BEAKER) (test code = 470) Light Yellow CLARITY (BEAKER) (test code = Clear 469) SPECIFIC GRAVITY UA (BEAKER) 1.008 1.001-1.035 (test code = 468) PH UA (BEAKER) (test code = 467) 7.5 5.0-8.0 PROTEIN UA (BEAKER) (test code = Negative Negative 464) GLUCOSE UA (BEAKER) (test code = Negative Negative 365) KETONES UA (BEAKER) (test code = Negative Negative 371) BILIRUBIN UA (BEAKER) (test code Negative Negative = 462) BLOOD UA (BEAKER) (test code = Negative Negative 461) NITRITE UA (BEAKER) (test code = Negative Negative 465) LEUKOCYTE ESTERASE UA (BEAKER) Negative Negative (test code = 466) UROBILINOGEN UA (BEAKER) (test 3.0 mg/dL 0.2-1.0 H code = 463) RBC UA (BEAKER) (test code = 1 /HPF 519) WBC UA (BEAKER) (test code = 2 /HPF 520) BACTERIA (BEAKER) (test code = Rare 517) HYALINE CASTS (BEAKER) (test 1 /LPF code = 514) CRYSTALS, URINE (BEAKER) (test None Seen code = 1521) AMORPHOUS CRYSTALS (BEAKER) Occasional (test code = 1584) SOURCE(BEAKER) (test code = 6408) Stitcher Hand ID - [auto]Stitcher Hand ID - techPOCT-GLUCOSE [id number] 06:25:22 Test Item Value Reference Range Interpretation Comments POC-GLUCOSE METER 117 mg/dL 70-110 H : TESTED A T [facility] 67[address] (BEAKER) (test code = [place], 1538) [address]: Stitcher Hand/Techni ebenezer ID = [id number] for PRINCESS ARTUR RAMIREZ RAD, CHEST, 1 VIEW, NON [id number] 05:10:00Reason for exam:->s/p LVADShould this be performed at the bedside?->Yes [facility] 1970 Sex: MFINAL REPORT RAD, CHEST, 1 VIEW, NON DEPT INDICATION: s/p LVAD COMPARISON: Prior day's exam FINDINGS: Portable frontal view of the chest. IMPRESSION: Support Lines: No significant change. Lungs and pleura: Unchanged airspace and pleural opacities. No pneumothorax.Heart and mediastinum:Stable contours. Additional findings: None. Signed: Ky Woodward MDReport Verified Date/Time: 09/18/2021 05:10:40 OXYGEN SATURATION, [id number] 04:16:30 Test Item Value Reference Range Interpretation Comments O2 SATURATION (MEASURED) (BEAKER) 58.8 % (test code = 1455) BLOOD GAS, [id number] 04:14:06 Test Item Value Reference Range Interpretation Comments PH ARTERIAL (BEAKER) (test code = 7.49 7.35-7.45 H 383) PCO2 ARTERIAL (BEAKER) (test code 41 mm Hg 35-45 = 384) PO2 ARTERIAL (BEAKER) (test code = 65 mm Hg 80-90 L 385) O2 SATURATION ARTERIAL (BEAKER) 94.1 % 96.0-97.0 L (test code = 386) HCO3 ARTERIAL (BEAKER) (test code 30 mmol/L 21-29 H = 388) BASE EXCESS ARTERIAL (BEAKER) 6.5 mmol/L -2.0-3.0 H (test code = 387) PATIENT TEMPERATURE (BEAKER) (test 37.0 code = 1818) FIO2 (BEAKER) (test code = 1819) 21.0 LACTATE DEHYDROGENASE (LDH)2021-09-18 04:13:51 Test Item Value Reference Range Interpretation Comments LACTATE DEHYDROGENASE (BEAKER) (test 373 U/L 125-220 H code = 635) Stitcher Hand ID - SOCO [id number] 04:13:50 Test Item Value Reference Range Interpretation Comments PHOSPHORUS (BEAKER) (test code = 4.1 mg/dL 2.3-4.7 604) Stitcher Hand ID - PINISHANT [id number] 04:13:49 Test Item Value Reference Range Interpretation Comments MAGNESIUM (BEAKER) (test code = 2.3 mg/dL 1.6-2.6 627) Stitcher Hand ID - SOCO LCOMPREHENSIVE METABOLIC [id number] 04:13:48 Test Item Value Reference Range Interpretation Comments TOTAL PROTEIN 7.0 gm/dL 6.0-8.3 (BEAKER) (test code = 770) ALBUMIN (BEAKER) 3.3 g/dL 3.5-5.0 L (test code = 1145) ALKALINE PHOSPHATASE 209 U/L 40-150 H (BEAKER) (test code = 346) BILIRUBIN TOTAL 0.9 mg/dL 0.2-1.2 (BEAKER) (test code = 377) SODIUM (BEAKER) (test 132 meq/L 136-145 L code = 381) POTASSIUM (BEAKER) 3.7 meq/L 3.5-5.1 (test code = 379) CHLORIDE (BEAKER) 91 meq/L 98-107 L (test code = 382) CO2 (BEAKER) (test 29 meq/L 22-29 code = 355) BLOOD UREA NITROGEN 25 mg/dL 7-21 H (BEAKER) (test code = 354) CREATININE (BEAKER) 0.75 mg/dL 0.57-1.25 (test code = 358) GLUCOSE RANDOM 126 mg/dL 70-105 H (BEAKER) (test code = 652) CALCIUM (BEAKER) 9.2 mg/dL 8.4-10.2 (test code = 697) AST (SGOT) (BEAKER) 25 U/L 5-34 (test code = 353) ALT (SGPT) (BEAKER) 23 U/L 6-55 (test code = 347) EGFR (BEAKER) (test 110 ESTIMATE D GFR IS code = 1092) mL/min/1.73 sq NOT ACCURA TE m CREATININE CLEARANCE IN PREDICTING GLOMERULAR FILTRATION RATE . ESTIMATED GFR I S NOT APPLICABLE FOR DIALYSIS PATIEN TS. Stitcher Hand ID - SOCO [id number] 04:05:47 Test Item Value Reference Range Interpretation Comments PARTIAL THROMBOPLASTIN TIME 80.5 seconds 22.5-36.0 H (BEAKER) (test code = 760) PROTHROMBIN [id number] 04:04:06 Test Item Value Reference Range Interpretation Comments PROTIME (BEAKER) 16.8 seconds 11.9-14.2 H (test code = 759) INR (BEAKER) (test 1.39 See_Comment [Automat ed message] code = 370) The system g4interactive generated this result transmitted ref erence range: <=5.90. The reference range was not used to int erpret this result as normal/abnormal . RECOMMENDED COUMADIN/WARFARIN INR THERAPY RANGESSTANDARD DOSE: 2.0 - 3.0 Includes: PROPHYLAXIS for venous thrombosis, systemic embolization; TREATMENT for venous thrombosis and/or pulmonary embolus.HIGH RISK: Target INR is 2.5-3.5 for patients with mechanical heart valves.LACTIC ACID, [id number] 04:00:24 Test Item Value Reference Range Interpretation Comments LACTATE BLOOD ARTERIAL (2) 0.6 mmol/L 0.5-2.2 (BEAKER) (test code = 2874) Stitcher Hand ID - SOCO LCBC W/PLT COUNT & AUTO [id number] 03:46:15 Test Item Value Reference Range Interpretation Comments WHITE BLOOD CELL COUNT (BEAKER) 16.4 K/ L 3.5-10.5 H (test code = 775) RED BLOOD CELL COUNT (BEAKER) 2.85 M/ L 4.63-6.08 L (test code = 761) HEMOGLOBIN (BEAKER) (test code = 9.0 GM/DL 13.7-17.5 L 410) HEMATOCRIT (BEAKER) (test code = 26.9 % 40.1-51.0 L 411) MEAN CORPUSCULAR VOLUME (BEAKER) 94.4 fL 79.0-92.2 H (test code = 753) MEAN CORPUSCULAR HEMOGLOBIN 31.6 pg 25.7-32.2 (BEAKER) (test code = 751) MEAN CORPUSCULAR HEMOGLOBIN CONC 33.5 GM/DL 32.3-36.5 (BEAKER) (test code = 752) RED CELL DISTRIBUTION WIDTH 17.6 % 11.6-14.4 H (BEAKER) (test code = 412) PLATELET COUNT (BEAKER) (test 179 K/CU MM 150-450 code = 756) MEAN PLATELET VOLUME (BEAKER) 9.9 fL 9.4-12.4 (test code = 754) NUCLEATED RED BLOOD CELLS 0 /100 WBC 0-0 (BEAKER) (test code = 413) NEUTROPHILS RELATIVE PERCENT 85 % (BEAKER) (test code = 429) LYMPHOCYTES RELATIVE PERCENT 6 % (BEAKER) (test code = 430) MONOCYTES RELATIVE PERCENT 5 % (BEAKER) (test code = 431) EOSINOPHILS RELATIVE PERCENT 1 % (BEAKER) (test code = 432) BASOPHILS RELATIVE PERCENT 0 % (BEAKER) (test code = 437) NEUTROPHILS ABSOLUTE COUNT 14.04 K/ L 1.78-5.38 H (BEAKER) (test code = 670) LYMPHOCYTES ABSOLUTE COUNT 1.03 K/ L 1.32-3.57 L (BEAKER) (test code = 414) MONOCYTES ABSOLUTE COUNT (BEAKER) 0.75 K/ L 0.30-0.82 (test code = 415) EOSINOPHILS ABSOLUTE COUNT 0.20 K/ L 0.04-0.54 (BEAKER) (test code = 416) BASOPHILS ABSOLUTE COUNT (BEAKER) 0.03 K/ L 0.01-0.08 (test code = 417) IMMATURE GRANULOCYTES-RELATIVE 2 % 0-1 H PERCENT (BEAKER) (test code = 2801) POCT-GLUCOSE [id number] 01:24:57 Test Item Value Reference Range Interpretation Comments POC-GLUCOSE METER 117 mg/dL 70-110 H : TESTED [facility] [address] (BEAKER) (test code = [place], 1538) [address]: Stitcher Hand/Techni ebenezer ID = [id number] for DELMAR GASPAR POCT-GLUCOSE [id number] 23:26:58 Test Item Value Reference Range Interpretation Comments POC-GLUCOSE METER 116 mg/dL 70-110 H : TESTED A T [facility] 67[address] (BEAKER) (test code = [facility], 1538) [address]: Stitcher Hand/Techni ebenezer ID = [id number] for DELMAR GASPAR POCT-GLUCOSE [id number] 21:20:17 Test Item Value Reference Range Interpretation Comments POC-GLUCOSE METER 134 mg/dL 70-110 H : TESTED A T [facility] [address] (BEAKER) (test code = [facility], 1538) [address]: Stitcher Hand/Techni ebenezer ID = [id number] for MAX NELSON, DELMAR [id number] 21:08:08 Test Item Value Reference Range Interpretation Comments MAGNESIUM (BEAKER) (test code = 2.2 mg/dL 1.6-2.6 627) Stitcher Hand ID - ADMINBASIC METABOLIC [id number] 21:08:07 Test Item Value Reference Range Interpretation Comments SODIUM (BEAKER) 132 meq/L 136-145 L (test code = 381) POTASSIUM (BEAKER) 3.4 meq/L 3.5-5.1 L (test code = 379) CHLORIDE (BEAKER) 90 meq/L 98-107 L (test code = 382) CO2 (BEAKER) (test 31 meq/L 22-29 H code = 355) BLOOD UREA NITROGEN 24 mg/dL 7-21 H (BEAKER) (test code = 354) CREATININE (BEAKER) 0.82 mg/dL 0.57-1.25 (test code = 358) GLUCOSE RANDOM 125 mg/dL 70-105 H (BEAKER) (test code = 652) CALCIUM (BEAKER) 9.0 mg/dL 8.4-10.2 (test code = 697) EGFR (BEAKER) (test 99 mL/min/1.73 ESTIMA NEELA GFR IS code = 1092) sq m NOT ACCURATE CREATININE CLEARANCE IN PREDICTING GLOMERULAR FILTRATION RATE . ESTIMATED GFR I S NOT APPLICABLE FOR DIALYSIS PATIEN TS. Stitcher Hand ID - [id number] 21:06:44 Test Item Value Reference Range Interpretation Comments PARTIAL THROMBOPLASTIN TIME 75.9 seconds 22.5-36.0 H (BEAKER) (test code = 760) CBC W/PLT COUNT & AUTO [id number] 20:54:14 Test Item Value Reference Range Interpretation Comments WHITE BLOOD CELL COUNT (BEAKER) 15.2 K/ L 3.5-10.5 H (test code = 775) RED BLOOD CELL COUNT (BEAKER) 2.91 M/ L 4.63-6.08 L (test code = 761) HEMOGLOBIN (BEAKER) (test code = 9.1 GM/DL 13.7-17.5 L 410) HEMATOCRIT (BEAKER) (test code = 27.5 % 40.1-51.0 L 411) MEAN CORPUSCULAR VOLUME (BEAKER) 94.5 fL 79.0-92.2 H (test code = 753) MEAN CORPUSCULAR HEMOGLOBIN 31.3 pg 25.7-32.2 (BEAKER) (test code = 751) MEAN CORPUSCULAR HEMOGLOBIN CONC 33.1 GM/DL 32.3-36.5 (BEAKER) (test code = 752) RED CELL DISTRIBUTION WIDTH 17.6 % 11.6-14.4 H (BEAKER) (test code = 412) PLATELET COUNT (BEAKER) (test 186 K/CU MM 150-450 code = 756) MEAN PLATELET VOLUME (BEAKER) 9.9 fL 9.4-12.4 (test code = 754) NUCLEATED RED BLOOD CELLS 0 /100 WBC 0-0 (BEAKER) (test code = 413) NEUTROPHILS RELATIVE PERCENT 85 % (BEAKER) (test code = 429) LYMPHOCYTES RELATIVE PERCENT 6 % (BEAKER) (test code = 430) MONOCYTES RELATIVE PERCENT 5 % (BEAKER) (test code = 431) EOSINOPHILS RELATIVE PERCENT 1 % (BEAKER) (test code = 432) BASOPHILS RELATIVE PERCENT 0 % (BEAKER) (test code = 437) NEUTROPHILS ABSOLUTE COUNT 12.89 K/ L 1.78-5.38 H (BEAKER) (test code = 670) LYMPHOCYTES ABSOLUTE COUNT 0.96 K/ L 1.32-3.57 L (BEAKER) (test code = 414) MONOCYTES ABSOLUTE COUNT (BEAKER) 0.70 K/ L 0.30-0.82 (test code = 415) EOSINOPHILS ABSOLUTE COUNT 0.20 K/ L 0.04-0.54 (BEAKER) (test code = 416) BASOPHILS ABSOLUTE COUNT (BEAKER) 0.02 K/ L 0.01-0.08 (test code = 417) IMMATURE GRANULOCYTES-RELATIVE 3 % 0-1 H PERCENT (BEAKER) (test code = 2801) [id number] 17:30:10 Test Item Value Reference Range Interpretation Comments MAGNESIUM (BEAKER) (test code = 2.3 mg/dL 1.6-2.6 627) Stitcher Hand ID - ADMINCOMPREHENSIVE METABOLIC [id number] 17:30:09 Test Item Value Reference Range Interpretation Comments TOTAL PROTEIN 7.2 gm/dL 6.0-8.3 (BEAKER) (test code = 770) ALBUMIN (BEAKER) 3.4 g/dL 3.5-5.0 L (test code = 1145) ALKALINE PHOSPHATASE 225 U/L 40-150 H (BEAKER) (test code = 346) BILIRUBIN TOTAL 0.8 mg/dL 0.2-1.2 (BEAKER) (test code = 377) SODIUM (BEAKER) (test 133 meq/L 136-145 L code = 381) POTASSIUM (BEAKER) 3.3 meq/L 3.5-5.1 L (test code = 379) CHLORIDE (BEAKER) 90 meq/L 98-107 L (test code = 382) CO2 (BEAKER) (test 33 meq/L 22-29 H code = 355) BLOOD UREA NITROGEN 24 mg/dL 7-21 H (BEAKER) (test code = 354) CREATININE (BEAKER) 0.79 mg/dL 0.57-1.25 (test code = 358) GLUCOSE RANDOM 129 mg/dL 70-105 H (BEAKER) (test code = 652) CALCIUM (BEAKER) 9.2 mg/dL 8.4-10.2 (test code = 697) AST (SGOT) (BEAKER) 31 U/L 5-34 (test code = 353) ALT (SGPT) (BEAKER) 26 U/L 6-55 (test code = 347) EGFR (BEAKER) (test 104 ESTIMATE D GFR IS code = 1092) mL/min/1.73 sq NOT ACCURA TE m CREATININE CLEARANCE IN PREDICTING GLOMERULAR FILTRATION RATE . ESTIMATED GFR I S NOT APPLICABLE FOR DIALYSIS PATIEN TS. Stitcher Hand ID - ADMINLACTIC ACID, [id number] 17:21:43 Test Item Value Reference Range Interpretation Comments LACTATE BLOOD ARTERIAL (2) 0.7 mmol/L 0.5-2.2 (BEAKER) (test code = 2874) Stitcher Hand ID - ADMINPOCT-GLUCOSE [id number] 16:23:03 Test Item Value Reference Range Interpretation Comments POC-GLUCOSE METER 121 mg/dL 70-110 H : TESTED A T [facility] 6720 (BEAKER) (test code = [place], 1538) [id number]: Stitcher Hand/Techni ebenezer ID = [id number] for Cheri Byrne BLOOD GAS, [id number] 14:53:46 Test Item Value Reference Range Interpretation Comments PH ARTERIAL (BEAKER) (test code = 7.52 7.35-7.45 H 383) PCO2 ARTERIAL (BEAKER) (test code 41 mm Hg 35-45 = 384) PO2 ARTERIAL (BEAKER) (test code = 60 mm Hg 80-90 L 385) O2 SATURATION ARTERIAL (BEAKER) 93.2 % 96.0-97.0 L (test code = 386) HCO3 ARTERIAL (BEAKER) (test code 32 mmol/L 21-29 H = 388) BASE EXCESS ARTERIAL (BEAKER) 8.7 mmol/L -2.0-3.0 H (test code = 387) PATIENT TEMPERATURE (BEAKER) (test 37.0 code = 1818) FIO2 (BEAKER) (test code = 1819) 21.0 OXYGEN SATURATION, [id number] 14:51:28 Test Item Value Reference Range Interpretation Comments O2 SATURATION (MEASURED) (BEAKER) 48.1 % (test code = 1455) [id number] 13:03:17 Test Item Value Reference Range Interpretation Comments PARTIAL THROMBOPLASTIN TIME 60.6 seconds 22.5-36.0 H (BEAKER) (test code = 760) CBC W/PLT COUNT & AUTO [id number] 12:34:55 Test Item Value Reference Range Interpretation Comments WHITE BLOOD CELL COUNT (BEAKER) 14.1 K/ L 3.5-10.5 H (test code = 775) RED BLOOD CELL COUNT (BEAKER) 2.74 M/ L 4.63-6.08 L (test code = 761) HEMOGLOBIN (BEAKER) (test code = 8.7 GM/DL 13.7-17.5 L 410) HEMATOCRIT (BEAKER) (test code = 26.1 % 40.1-51.0 L 411) MEAN CORPUSCULAR VOLUME (BEAKER) 95.3 fL 79.0-92.2 H (test code = 753) MEAN CORPUSCULAR HEMOGLOBIN 31.8 pg 25.7-32.2 (BEAKER) (test code = 751) MEAN CORPUSCULAR HEMOGLOBIN CONC 33.3 GM/DL 32.3-36.5 (BEAKER) (test code = 752) RED CELL DISTRIBUTION WIDTH 17.9 % 11.6-14.4 H (BEAKER) (test code = 412) PLATELET COUNT (BEAKER) (test 171 K/CU MM 150-450 code = 756) MEAN PLATELET VOLUME (BEAKER) 9.7 fL 9.4-12.4 (test code = 754) NUCLEATED RED BLOOD CELLS 0 /100 WBC 0-0 (BEAKER) (test code = 413) NEUTROPHILS RELATIVE PERCENT 82 % (BEAKER) (test code = 429) LYMPHOCYTES RELATIVE PERCENT 7 % (BEAKER) (test code = 430) MONOCYTES RELATIVE PERCENT 6 % (BEAKER) (test code = 431) EOSINOPHILS RELATIVE PERCENT 2 % (BEAKER) (test code = 432) BASOPHILS RELATIVE PERCENT 0 % (BEAKER) (test code = 437) NEUTROPHILS ABSOLUTE COUNT 11.62 K/ L 1.78-5.38 H (BEAKER) (test code = 670) LYMPHOCYTES ABSOLUTE COUNT 1.05 K/ L 1.32-3.57 L (BEAKER) (test code = 414) MONOCYTES ABSOLUTE COUNT (BEAKER) 0.81 K/ L 0.30-0.82 (test code = 415) EOSINOPHILS ABSOLUTE COUNT 0.26 K/ L 0.04-0.54 (BEAKER) (test code = 416) BASOPHILS ABSOLUTE COUNT (BEAKER) 0.03 K/ L 0.01-0.08 (test code = 417) IMMATURE GRANULOCYTES-RELATIVE 3 % 0-1 H PERCENT (BEAKER) (test code = 2801) POCT-GLUCOSE [id number] 12:10:38 Test Item Value Reference Range Interpretation Comments POC-GLUCOSE METER 121 mg/dL 70-110 H : TESTED A T [facility] 6720 (BEAKER) (test code = [place], 1538) [address]: Stitcher Hand/Techni ebenezer ID = [id number] for Cheri Byrne [id number] 10:46:52 Test Item Value Reference Range Interpretation Comments MAGNESIUM (BEAKER) (test code = 1.9 mg/dL 1.6-2.6 627) Stitcher Hand ID - SO MBASIC METABOLIC [id number] 10:46:51 Test Item Value Reference Range Interpretation Comments SODIUM (BEAKER) 133 meq/L 136-145 L (test code = 381) POTASSIUM (BEAKER) 3.7 meq/L 3.5-5.1 (test code = 379) CHLORIDE (BEAKER) 93 meq/L 98-107 L (test code = 382) CO2 (BEAKER) (test 31 meq/L 22-29 H code = 355) BLOOD UREA NITROGEN 23 mg/dL 7-21 H (BEAKER) (test code = 354) CREATININE (BEAKER) 0.71 mg/dL 0.57-1.25 (test code = 358) GLUCOSE RANDOM 119 mg/dL 70-105 H (BEAKER) (test code = 652) CALCIUM (BEAKER) 8.3 mg/dL 8.4-10.2 L (test code = 697) EGFR (BEAKER) (test 117 mL/min/1.73 ESTIM ATED GFR IS code = 1092) sq m NOT ACCURATE CREATININE CLEARANCE IN PREDICTING GLOMERULAR FILTRATION RATE . ESTIMATED GFR I S NOT APPLICABLE FOR DIALYSIS PATIEN TS. Stitcher Hand ID - SO MOXYGEN SATURATION, [id number] 10:42:10 Test Item Value Reference Range Interpretation Comments O2 SATURATION (MEASURED) (BEAKER) 37.9 % (test code = 1455) POCT-GLUCOSE [id number] 07:26:55 Test Item Value Reference Range Interpretation Comments POC-GLUCOSE METER 129 mg/dL 70-110 H : Notified RN/MD: (CLEMENTINA) (test code = TESTED AT [facility] [id number]) [place] [facility], [address]: Stitcher Hand/Techni ebenezer ID = [id number] for FELIPA HERNANDES LACTIC ACID, [id number] 05:33:07 Test Item Value Reference Range Interpretation Comments LACTATE BLOOD ARTERIAL (2) 1.1 mmol/L 0.5-2.2 (BEAKER) (test code = 2874) Stitcher Hand ID - SO MCBC W/PLT COUNT & AUTO [id number] 05:32:39 Test Item Value Reference Range Interpretation Comments WHITE BLOOD CELL COUNT (BEAKER) 13.3 K/ L 3.5-10.5 H (test code = 775) RED BLOOD CELL COUNT (BEAKER) 2.77 M/ L 4.63-6.08 L (test code = 761) HEMOGLOBIN (BEAKER) (test code = 8.7 GM/DL 13.7-17.5 L 410) HEMATOCRIT (BEAKER) (test code = 26.3 % 40.1-51.0 L 411) MEAN CORPUSCULAR VOLUME (BEAKER) 94.9 fL 79.0-92.2 H (test code = 753) MEAN CORPUSCULAR HEMOGLOBIN 31.4 pg 25.7-32.2 (BEAKER) (test code = 751) MEAN CORPUSCULAR HEMOGLOBIN CONC 33.1 GM/DL 32.3-36.5 (BEAKER) (test code = 752) RED CELL DISTRIBUTION WIDTH 17.6 % 11.6-14.4 H (BEAKER) (test code = 412) PLATELET COUNT (BEAKER) (test 188 K/CU MM 150-450 code = 756) MEAN PLATELET VOLUME (BEAKER) 10.1 fL 9.4-12.4 (test code = 754) NUCLEATED RED BLOOD CELLS 0 /100 WBC 0-0 (BEAKER) (test code = 413) NEUTROPHILS RELATIVE PERCENT 81 % (BEAKER) (test code = 429) LYMPHOCYTES RELATIVE PERCENT 9 % (BEAKER) (test code = 430) MONOCYTES RELATIVE PERCENT 5 % (BEAKER) (test code = 431) EOSINOPHILS RELATIVE PERCENT 2 % (BEAKER) (test code = 432) BASOPHILS RELATIVE PERCENT 0 % (BEAKER) (test code = 437) NEUTROPHILS ABSOLUTE COUNT 10.75 K/ L 1.78-5.38 H (BEAKER) (test code = 670) LYMPHOCYTES ABSOLUTE COUNT 1.20 K/ L 1.32-3.57 L (BEAKER) (test code = 414) MONOCYTES ABSOLUTE COUNT (BEAKER) 0.69 K/ L 0.30-0.82 (test code = 415) EOSINOPHILS ABSOLUTE COUNT 0.26 K/ L 0.04-0.54 (BEAKER) (test code = 416) BASOPHILS ABSOLUTE COUNT (BEAKER) 0.02 K/ L 0.01-0.08 (test code = 417) IMMATURE GRANULOCYTES-RELATIVE 3 % 0-1 H PERCENT (BEAKER) (test code = 2801) LACTATE DEHYDROGENASE (LDH)[id number] 05:30:29 Test Item Value Reference Range Interpretation Comments LACTATE DEHYDROGENASE (BEAKER) (test 384 U/L 125-220 H code = 635) Stitcher Hand ID - SO [id number] 05:30:28 Test Item Value Reference Range Interpretation Comments PHOSPHORUS (BEAKER) (test code = 3.6 mg/dL 2.3-4.7 604) Stitcher Hand ID - SO [id number] 05:30:27 Test Item Value Reference Range Interpretation Comments MAGNESIUM (BEAKER) (test code = 2.0 mg/dL 1.6-2.6 627) Stitcher Hand ID - SO MCOMPREHENSIVE METABOLIC [id number] 05:30:26 Test Item Value Reference Range Interpretation Comments TOTAL PROTEIN 6.7 gm/dL 6.0-8.3 (BEAKER) (test code = 770) ALBUMIN (BEAKER) 3.2 g/dL 3.5-5.0 L (test code = 1145) ALKALINE PHOSPHATASE 212 U/L 40-150 H (BEAKER) (test code = 346) BILIRUBIN TOTAL 0.7 mg/dL 0.2-1.2 (BEAKER) (test code = 377) SODIUM (BEAKER) (test 132 meq/L 136-145 L code = 381) POTASSIUM (BEAKER) 3.7 meq/L 3.5-5.1 (test code = 379) CHLORIDE (BEAKER) 90 meq/L 98-107 L (test code = 382) CO2 (BEAKER) (test 30 meq/L 22-29 H code = 355) BLOOD UREA NITROGEN 25 mg/dL 7-21 H (BEAKER) (test code = 354) CREATININE (BEAKER) 0.80 mg/dL 0.57-1.25 (test code = 358) GLUCOSE RANDOM 147 mg/dL 70-105 H (BEAKER) (test code = 652) CALCIUM (BEAKER) 8.6 mg/dL 8.4-10.2 (test code = 697) AST (SGOT) (BEAKER) 38 U/L 5-34 H (test code = 353) ALT (SGPT) (BEAKER) 28 U/L 6-55 (test code = 347) EGFR (BEAKER) (test 102 ESTIMATE D GFR IS code = 1092) mL/min/1.73 sq NOT ACCURA TE m CREATININE CLEARANCE IN PREDICTING GLOMERULAR FILTRATION RATE . ESTIMATED GFR I S NOT APPLICABLE FOR DIALYSIS PATIEN TS. Stitcher Hand ID - SO [id number] 05:27:08 Test Item Value Reference Range Interpretation Comments PARTIAL THROMBOPLASTIN TIME 59.3 seconds 22.5-36.0 H (BEAKER) (test code = 760) PROTHROMBIN [id number] 05:25:42 Test Item Value Reference Range Interpretation Comments PROTIME (BEAKER) 14.9 seconds 11.9-14.2 H (test code = 759) INR (BEAKER) (test 1.19 See_Comment [Automat ed message] code = 370) The system g4interactive generated this result transmitted ref erence range: <=5.90. The reference range was not used to int erpret this result as normal/abnormal . RECOMMENDED COUMADIN/WARFARIN INR THERAPY RANGESSTANDARD DOSE: 2.0 - 3.0 Includes: PROPHYLAXIS for venous thrombosis, systemic embolization; TREATMENT for venous thrombosis and/or pulmonary embolus.HIGH RISK: Target INR is 2.5-3.5 for patients with mechanical heart valves.RAD, CHEST, 1 VIEW, NON [id number] 05:00:00Reason for exam:->s/p LVADShould this be performed at the bedside?->YesRITCH[facility] : 1970 Sex: MFINAL REPORT Chest one view. Clinical history: s/p LVAD Comparison: Chest ndzmyewylk40/14/2021. Technique: A single frontal view of the chest was obtained. Findings: There is a left-sided pacemaker with leads unchanged.An LVAD is present. Support lines and tubes are in standard positions. The cardiac silhouette is enlarged. There is pulmonary vascular congestion and small bilateral pleural effusions. There is no pneumothorax. Signed: Glenys King Verified Date/Time: 09/17/2021 05:00:49 BLOOD GAS, [id number] 04:41:58 Test Item Value Reference Range Interpretation Comments PH ARTERIAL (BEAKER) (test code = 7.49 7.35-7.45 H 383) PCO2 ARTERIAL (BEAKER) (test code 43 mm Hg 35-45 = 384) PO2 ARTERIAL (BEAKER) (test code = 81 mm Hg 80-90 385) O2 SATURATION ARTERIAL (BEAKER) 96.7 % 96.0-97.0 (test code = 386) HCO3 ARTERIAL (BEAKER) (test code 32 mmol/L 21-29 H = 388) BASE EXCESS ARTERIAL (BEAKER) 8.0 mmol/L -2.0-3.0 H (test code = 387) PATIENT TEMPERATURE (BEAKER) (test 37.0 code = 1818) FIO2 (BEAKER) (test code = 1819) 32.0 OXYGEN SATURATION, [id number] 04:41:38 Test Item Value Reference Range Interpretation Comments O2 SATURATION (MEASURED) (BEAKER) 54.5 % (test code = 1455) POCT-GLUCOSE [id number] 04:14:37 Test Item Value Reference Range Interpretation Comments POC-GLUCOSE METER 142 mg/dL 70-110 H : TESTED A T [facility] 6720 (BEAKER) (test code = [place], 1538) [address]: Stitcher Hand/Techni ebenezer ID = [id number] for PRINCESS ARTUR RAMIREZ POCT-GLUCOSE [id number] 02:40:51 Test Item Value Reference Range Interpretation Comments POC-GLUCOSE METER 145 mg/dL 70-110 H : TESTED A T [facility] 6720 (BEAKER) (test code = [facility] [place] [facility], 1538) [address]: Stitcher Hand/Techni ebenezer ID = [id number] for PRINCESS ARTUR RAMIREZ POCT-GLUCOSE [id number] 00:05:30 Test Item Value Reference Range Interpretation Comments POC-GLUCOSE METER 136 mg/dL 70-110 H : TESTED A T [facility] 6720 (BEAKER) (test code = [facility] [place] [facility], 1538) [address]: Stitcher Hand/Techni ebenezer ID = [id number] for GO LESLIE, DELMAR POCT-GLUCOSE [id number] 22:05:22 Test Item Value Reference Range Interpretation Comments POC-GLUCOSE METER 137 mg/dL 70-110 H : TESTED A T [facility] 6720 (BEAKER) (test code = [facility] [place] [facility], 1538) [address]: Stitcher Hand/Techni ebenezer ID = [id number] for MAX NELSON, DELMAR [id number] 20:56:16 Test Item Value Reference Range Interpretation Comments MAGNESIUM (BEAKER) (test code = 2.0 mg/dL 1.6-2.6 627) Stitcher Hand ID - BSBASIC METABOLIC [id number] 20:56:15 Test Item Value Reference Range Interpretation Comments SODIUM (BEAKER) 133 meq/L 136-145 L (test code = 381) POTASSIUM (BEAKER) 3.3 meq/L 3.5-5.1 L (test code = 379) CHLORIDE (BEAKER) 90 meq/L 98-107 L (test code = 382) CO2 (BEAKER) (test 30 meq/L 22-29 H code = 355) BLOOD UREA NITROGEN 27 mg/dL 7-21 H (BEAKER) (test code = 354) CREATININE (BEAKER) 0.86 mg/dL 0.57-1.25 (test code = 358) GLUCOSE RANDOM 150 mg/dL 70-105 H (BEAKER) (test code = 652) CALCIUM (BEAKER) 9.1 mg/dL 8.4-10.2 (test code = 697) EGFR (BEAKER) (test 94 mL/min/1.73 ESTIMA NEELA GFR IS code = 1092) sq m NOT ACCURATE CREATININE CLEARANCE IN PREDICTING GLOMERULAR FILTRATION RATE . ESTIMATED GFR I S NOT APPLICABLE FOR DIALYSIS PATIEN TS. Stitcher Hand ID - [id number] 20:51:36 Test Item Value Reference Range Interpretation Comments PARTIAL THROMBOPLASTIN TIME 55.3 seconds 22.5-36.0 H (BEAKER) (test code = 760) CBC W/PLT COUNT & AUTO [id number] 20:47:38 Test Item Value Reference Range Interpretation Comments WHITE BLOOD CELL COUNT (BEAKER) 13.5 K/ L 3.5-10.5 H (test code = 775) RED BLOOD CELL COUNT (BEAKER) 2.85 M/ L 4.63-6.08 L (test code = 761) HEMOGLOBIN (BEAKER) (test code = 8.8 GM/DL 13.7-17.5 L 410) HEMATOCRIT (BEAKER) (test code = 27.1 % 40.1-51.0 L 411) MEAN CORPUSCULAR VOLUME (BEAKER) 95.1 fL 79.0-92.2 H (test code = 753) MEAN CORPUSCULAR HEMOGLOBIN 30.9 pg 25.7-32.2 (BEAKER) (test code = 751) MEAN CORPUSCULAR HEMOGLOBIN CONC 32.5 GM/DL 32.3-36.5 (BEAKER) (test code = 752) RED CELL DISTRIBUTION WIDTH 17.4 % 11.6-14.4 H (BEAKER) (test code = 412) PLATELET COUNT (BEAKER) (test 196 K/CU MM 150-450 code = 756) MEAN PLATELET VOLUME (BEAKER) 9.6 fL 9.4-12.4 (test code = 754) NUCLEATED RED BLOOD CELLS 0 /100 WBC 0-0 (BEAKER) (test code = 413) NEUTROPHILS RELATIVE PERCENT 81 % (BEAKER) (test code = 429) LYMPHOCYTES RELATIVE PERCENT 9 % (BEAKER) (test code = 430) MONOCYTES RELATIVE PERCENT 5 % (BEAKER) (test code = 431) EOSINOPHILS RELATIVE PERCENT 2 % (BEAKER) (test code = 432) BASOPHILS RELATIVE PERCENT 0 % (BEAKER) (test code = 437) NEUTROPHILS ABSOLUTE COUNT 10.89 K/ L 1.78-5.38 H (BEAKER) (test code = 670) LYMPHOCYTES ABSOLUTE COUNT 1.24 K/ L 1.32-3.57 L (BEAKER) (test code = 414) MONOCYTES ABSOLUTE COUNT (BEAKER) 0.71 K/ L 0.30-0.82 (test code = 415) EOSINOPHILS ABSOLUTE COUNT 0.26 K/ L 0.04-0.54 (BEAKER) (test code = 416) BASOPHILS ABSOLUTE COUNT (BEAKER) 0.02 K/ L 0.01-0.08 (test code = 417) IMMATURE GRANULOCYTES-RELATIVE 3 % 0-1 H PERCENT (BEAKER) (test code = 2801) POCT-GLUCOSE [id number] 20:23:40 Test Item Value Reference Range Interpretation Comments POC-GLUCOSE METER 153 mg/dL 70-110 H : TESTED A T [facility] 6720 (BEAKER) (test code = [place], 1538) [address]: Stitcher Hand/Techni ebenezer ID = [id number] for GO MEZ, DELMAR [id number] 17:12:31 Test Item Value Reference Range Interpretation Comments MAGNESIUM (BEAKER) 2.3 mg/dL 1.6-2.6 Specimen markedly (test code = 627) hemolyzed Stitcher Hand ID - BSCOMPREHENSIVE METABOLIC [id number] 17:12:31 Test Item Value Reference Range Interpretation Comments TOTAL PROTEIN 7.1 gm/dL 6.0-8.3 Specimen marke dly (BEAKER) (test code = hemoly zed 770) ALBUMIN (BEAKER) 3.1 g/dL 3.5-5.0 L Specimen ma rkedly (test code = 1145) hemolyzed ALKALINE PHOSPHATASE 246 U/L 40-150 H (BEAKER) (test code = 346) BILIRUBIN TOTAL 0.8 mg/dL 0.2-1.2 Specimen mar kedly (BEAKER) (test code = hemoly zed 377) SODIUM (BEAKER) (test 132 meq/L 136-145 L code = 381) POTASSIUM (BEAKER) 4.6 meq/L 3.5-5.1 Specimen markedly (test code = 379) hemolyzed CHLORIDE (BEAKER) 92 meq/L 98-107 L (test code = 382) CO2 (BEAKER) (test 31 meq/L 22-29 H code = 355) BLOOD UREA NITROGEN 25 mg/dL 7-21 H (BEAKER) (test code = 354) CREATININE (BEAKER) 0.78 mg/dL 0.57-1.25 Specimen markedly (test code = 358) hemolyzed GLUCOSE RANDOM 138 mg/dL 70-105 H (BEAKER) (test code = 652) CALCIUM (BEAKER) 8.9 mg/dL 8.4-10.2 (test code = 697) AST (SGOT) (BEAKER) 46 U/L 5-34 H Specimen markedly (test code = 353) hemolyzed ALT (SGPT) (BEAKER) 27 U/L 6-55 Specimen markedly (test code = 347) hemolyzed EGFR (BEAKER) (test 105 ESTIMATE D GFR IS code = 1092) mL/min/1.73 sq NOT ACCURA TE m CREATININE CLEARANCE IN PREDICTING GLOMERULAR FILTRATION RATE . ESTIMATED GFR I S NOT APPLICABLE FOR DIALYSIS PATIEN TS. Stitcher Hand ID - BSPOCT-GLUCOSE [id number] 17:02:04 Test Item Value Reference Range Interpretation Comments POC-GLUCOSE METER 138 mg/dL 70-110 H : TESTED A [place] [address] ([place]) (test code = [facility], 153) [id number]: Stitcher Hand/Techni ebenezer ID = [id number] for [place], Jaime LACTIC ACID, [id number] 16:46:23 Test Item Value Reference Range Interpretation Comments LACTATE BLOOD 0.7 mmol/L 0.5-2.2 Specimen moder ately ARTERIAL (2) (BEAKER) hemoly zed (test code = 2874) Stitcher Hand ID - BSOXYGEN SATURATION, [id number] 15:10:18 Test Item Value Reference Range Interpretation Comments O2 SATURATION (MEASURED) (BEAKER) 48.9 % (test code = 1455) POCT-GLUCOSE [id number] 14:06:05 Test Item Value Reference Range Interpretation Comments POC-GLUCOSE METER 132 mg/dL 70-110 H : TESTED A T [facility] [address] ([place]) (test code = [facility], 153) [id number]: Stitcher Hand/Techni ebenezer ID = [id number] for Pr of[place], Jaime [id number] 12:27:52 Test Item Value Reference Range Interpretation Comments PARTIAL THROMBOPLASTIN TIME 50.5 seconds 22.5-36.0 H (BEAKER) (test code = 760) CBC W/PLT COUNT & AUTO [id number] 12:26:23 Test Item Value Reference Range Interpretation Comments WHITE BLOOD CELL COUNT (BEAKER) 12.3 K/ L 3.5-10.5 H (test code = 775) RED BLOOD CELL COUNT (BEAKER) 2.83 M/ L 4.63-6.08 L (test code = 761) HEMOGLOBIN (BEAKER) (test code = 8.9 GM/DL 13.7-17.5 L 410) HEMATOCRIT (BEAKER) (test code = 27.7 % 40.1-51.0 L 411) MEAN CORPUSCULAR VOLUME (BEAKER) 97.9 fL 79.0-92.2 H (test code = 753) MEAN CORPUSCULAR HEMOGLOBIN 31.4 pg 25.7-32.2 (BEAKER) (test code = 751) MEAN CORPUSCULAR HEMOGLOBIN CONC 32.1 GM/DL 32.3-36.5 L (BEAKER) (test code = 752) RED CELL DISTRIBUTION WIDTH 17.5 % 11.6-14.4 H (BEAKER) (test code = 412) PLATELET COUNT (BEAKER) (test 193 K/CU MM 150-450 code = 756) MEAN PLATELET VOLUME (BEAKER) 9.5 fL 9.4-12.4 (test code = 754) NUCLEATED RED BLOOD CELLS 0 /100 WBC 0-0 (BEAKER) (test code = 413) NEUTROPHILS RELATIVE PERCENT 83 % (BEAKER) (test code = 429) LYMPHOCYTES RELATIVE PERCENT 8 % (BEAKER) (test code = 430) MONOCYTES RELATIVE PERCENT 4 % (BEAKER) (test code = 431) EOSINOPHILS RELATIVE PERCENT 2 % (BEAKER) (test code = 432) BASOPHILS RELATIVE PERCENT 0 % (BEAKER) (test code = 437) NEUTROPHILS ABSOLUTE COUNT 10.15 K/ L 1.78-5.38 H (BEAKER) (test code = 670) LYMPHOCYTES ABSOLUTE COUNT 1.03 K/ L 1.32-3.57 L (BEAKER) (test code = 414) MONOCYTES ABSOLUTE COUNT (BEAKER) 0.54 K/ L 0.30-0.82 (test code = 415) EOSINOPHILS ABSOLUTE COUNT 0.18 K/ L 0.04-0.54 (BEAKER) (test code = 416) BASOPHILS ABSOLUTE COUNT (BEAKER) 0.03 K/ L 0.01-0.08 (test code = 417) IMMATURE GRANULOCYTES-RELATIVE 3 % 0-1 H PERCENT (BEAKER) (test code = 2801) OXYGEN SATURATION, [id number] 12:12:02 Test Item Value Reference Range Interpretation Comments O2 SATURATION (MEASURED) (BEAKER) 96.5 % (test code = 1455) [id number] 10:58:02 Test Item Value Reference Range Interpretation Comments MAGNESIUM (BEAKER) (test code = 2.1 mg/dL 1.6-2.6 627) Stitcher Hand ID - EMMANUEL FBASIC METABOLIC [id number] 10:58:01 Test Item Value Reference Range Interpretation Comments SODIUM (BEAKER) 136 meq/L 136-145 (test code = 381) POTASSIUM (BEAKER) 3.8 meq/L 3.5-5.1 (test code = 379) CHLORIDE (BEAKER) 95 meq/L 98-107 L (test code = 382) CO2 (BEAKER) (test 28 meq/L 22-29 code = 355) BLOOD UREA NITROGEN 27 mg/dL 7-21 H (BEAKER) (test code = 354) CREATININE (BEAKER) 0.76 mg/dL 0.57-1.25 (test code = 358) GLUCOSE RANDOM 127 mg/dL 70-105 H (BEAKER) (test code = 652) CALCIUM (BEAKER) 8.6 mg/dL 8.4-10.2 (test code = 697) EGFR (BEAKER) (test 109 mL/min/1.73 ESTIM ATED GFR IS code = 1092) sq m NOT ACCURATE CREATININE CLEARANCE IN PREDICTING GLOMERULAR FILTRATION RATE . ESTIMATED GFR I S NOT APPLICABLE FOR DIALYSIS PATIEN TS. Stitcher Hand ID - EMMANUEL FPOCT-GLUCOSE [id number] 08:40:42 Test Item Value Reference Range Interpretation Comments POC-GLUCOSE METER 139 mg/dL 70-110 H : Notified RN/MD: (CLEMENTINA) (test code = TESTED AT [facility] 2876 2222) [facility], [address]: Stitcher Hand/Techni ebenezer ID = [id number] for AZRA FELIPA DIGGS [id number] 06:40:43 Test Item Value Reference Range Interpretation Comments PARTIAL THROMBOPLASTIN TIME 50.9 seconds 22.5-36.0 H (CLEMENTINA) (test code = 760) PROTHROMBIN [id number] 06:39:42 Test Item Value Reference Range Interpretation Comments PROTIME (CLEMENTINA) 14.5 seconds 11.9-14.2 H (test code = 759) INR (CLEMENTINA) (test 1.15 See_Comment [Automat ed message] code = 370) The system g4interactive generated this result transmitted ref erence range: <=5.90. The reference range was not used to int erpret this result as normal/abnormal . RECOMMENDED COUMADIN/WARFARIN INR THERAPY RANGESSTANDARD DOSE: 2.0 - 3.0 Includes: PROPHYLAXIS for venous thrombosis, systemic embolization; TREATMENT for venous thrombosis and/or pulmonary embolus.HIGH RISK: Target INR is 2.5-3.5 for patients with mechanical heart valves.POCT-GLUCOSE [id number] 06:15:15 Test Item Value Reference Range Interpretation Comments POC-GLUCOSE METER 142 mg/dL 70-110 H : TESTED A T [facility] 6720 (CLEMENTINA) (test code = KATHEJULISA Olson [facility], 1538) [address]: Stitcher Hand/Techni ebenezer ID = [id number] for ANA URBAN RAD, CHEST, 1 VIEW, NON [id number] 05:26:00Reason for exam:->s/p LVADShould this be performed at the bedside?->Yes [facility] DA[facility] WEST : 1970 Sex: MFINAL REPORT Chest one view. Clinical history: s/p LVAD Comparison: Chest pdxelhmyyi58/13/2021. Technique: A single frontal view of the chest was obtained. Findings:An LVAD is present.Support lines and tubes are in satisfactory positions. A left-sided AICD with partially imaged leads.The cardiomediastinal contours are stable. There is pulmonary vascular congestion and small bilateral pleural effusions. There is a left lower lobe opacity which may represent atelectasis and/or pneumonia. There is no pneumothorax. Signed: Glenys Kingeport Verified Date/Time: 09/16/2021 05:26:42 LACTATE DEHYDROGENASE (LDH)2021-09-16 04:38:06 Test Item Value Reference Range Interpretation Comments LACTATE DEHYDROGENASE (BEAKER) (test 338 U/L 125-220 H code = 635) Stitcher Hand ID - PIAYA [id number] 04:38:05 Test Item Value Reference Range Interpretation Comments PHOSPHORUS (BEAKER) (test code = 3.4 mg/dL 2.3-4.7 604) Stitcher Hand ID - PIAYA LCOMPREHENSIVE METABOLIC [id number] 04:38:04 Test Item Value Reference Range Interpretation Comments TOTAL PROTEIN 6.5 gm/dL 6.0-8.3 (BEAKER) (test code = 770) ALBUMIN (BEAKER) 3.2 g/dL 3.5-5.0 L (test code = 1145) ALKALINE PHOSPHATASE 187 U/L 40-150 H (BEAKER) (test code = 346) BILIRUBIN TOTAL 0.8 mg/dL 0.2-1.2 (BEAKER) (test code = 377) SODIUM (BEAKER) (test 134 meq/L 136-145 L code = 381) POTASSIUM (BEAKER) 3.3 meq/L 3.5-5.1 L (test code = 379) CHLORIDE (BEAKER) 90 meq/L 98-107 L (test code = 382) CO2 (BEAKER) (test 31 meq/L 22-29 H code = 355) BLOOD UREA NITROGEN 30 mg/dL 7-21 H (BEAKER) (test code = 354) CREATININE (BEAKER) 0.85 mg/dL 0.57-1.25 (test code = 358) GLUCOSE RANDOM 148 mg/dL 70-105 H (BEAKER) (test code = 652) CALCIUM (BEAKER) 8.9 mg/dL 8.4-10.2 (test code = 697) AST (SGOT) (BEAKER) 24 U/L 5-34 (test code = 353) ALT (SGPT) (BEAKER) 22 U/L 6-55 (test code = 347) EGFR (BEAKER) (test 95 mL/min/1.73 ESTIMA NEELA GFR IS code = 1092) sq m NOT ACCURATE CREATININE CLEARANCE IN PREDICTING GLOMERULAR FILTRATION RATE . ESTIMATED GFR I S NOT APPLICABLE FOR DIALYSIS PATIEN TS. Stitcher Hand ID - SOCO [id number] 04:38:04 Test Item Value Reference Range Interpretation Comments MAGNESIUM (BEAKER) (test code = 2.1 mg/dL 1.6-2.6 627) Stitcher Hand ID - SOCO LLACTIC ACID, [id number] 04:20:53 Test Item Value Reference Range Interpretation Comments LACTATE BLOOD ARTERIAL (2) 1.0 mmol/L 0.5-2.2 (BEAKER) (test code = 2874) Stitcher Hand ID - SO MCALCIUM, [id number] 04:12:50 Test Item Value Reference Range Interpretation Comments CALCIUM IONIZED (BEAKER) (test 1.05 mmol/L 1.12-1.27 L code = 698) PH, BLOOD (BEAKER) (test code = 7.50 1810) BLOOD GAS, [id number] 04:12:35 Test Item Value Reference Range Interpretation Comments PH ARTERIAL (BEAKER) (test code = 7.49 7.35-7.45 H 383) PCO2 ARTERIAL (BEAKER) (test code 46 mm Hg 35-45 H = 384) PO2 ARTERIAL (BEAKER) (test code = 96 mm Hg 80-90 H 385) O2 SATURATION ARTERIAL (BEAKER) 97.5 % 96.0-97.0 H (test code = 386) HCO3 ARTERIAL (BEAKER) (test code 34 mmol/L 21-29 H = 388) BASE EXCESS ARTERIAL (BEAKER) 9.8 mmol/L -2.0-3.0 H (test code = 387) PATIENT TEMPERATURE (BEAKER) (test 37.9 code = 1818) FIO2 (BEAKER) (test code = 1819) 36.0 CBC W/PLT COUNT & AUTO [id number] 04:09:37 Test Item Value Reference Range Interpretation Comments WHITE BLOOD CELL COUNT (BEAKER) 10.7 K/ L 3.5-10.5 H (test code = 775) RED BLOOD CELL COUNT (BEAKER) 2.72 M/ L 4.63-6.08 L (test code = 761) HEMOGLOBIN (BEAKER) (test code = 8.7 GM/DL 13.7-17.5 L 410) HEMATOCRIT (BEAKER) (test code = 26.8 % 40.1-51.0 L 411) MEAN CORPUSCULAR VOLUME (BEAKER) 98.5 fL 79.0-92.2 H (test code = 753) MEAN CORPUSCULAR HEMOGLOBIN 32.0 pg 25.7-32.2 (BEAKER) (test code = 751) MEAN CORPUSCULAR HEMOGLOBIN CONC 32.5 GM/DL 32.3-36.5 (BEAKER) (test code = 752) RED CELL DISTRIBUTION WIDTH 17.2 % 11.6-14.4 H (BEAKER) (test code = 412) PLATELET COUNT (BEAKER) (test 181 K/CU MM 150-450 code = 756) MEAN PLATELET VOLUME (BEAKER) 9.5 fL 9.4-12.4 (test code = 754) NUCLEATED RED BLOOD CELLS 0 /100 WBC 0-0 (BEAKER) (test code = 413) NEUTROPHILS RELATIVE PERCENT 77 % (BEAKER) (test code = 429) LYMPHOCYTES RELATIVE PERCENT 13 % (BEAKER) (test code = 430) MONOCYTES RELATIVE PERCENT 5 % (BEAKER) (test code = 431) EOSINOPHILS RELATIVE PERCENT 3 % (BEAKER) (test code = 432) BASOPHILS RELATIVE PERCENT 0 % (BEAKER) (test code = 437) NEUTROPHILS ABSOLUTE COUNT 8.25 K/ L 1.78-5.38 H (BEAKER) (test code = 670) LYMPHOCYTES ABSOLUTE COUNT 1.35 K/ L 1.32-3.57 (BEAKER) (test code = 414) MONOCYTES ABSOLUTE COUNT (BEAKER) 0.53 K/ L 0.30-0.82 (test code = 415) EOSINOPHILS ABSOLUTE COUNT 0.28 K/ L 0.04-0.54 (BEAKER) (test code = 416) BASOPHILS ABSOLUTE COUNT (BEAKER) 0.02 K/ L 0.01-0.08 (test code = 417) IMMATURE GRANULOCYTES-RELATIVE 2 % 0-1 H PERCENT (BEAKER) (test code = 2801) OXYGEN SATURATION, [id number] 04:08:09 Test Item Value Reference Range Interpretation Comments O2 SATURATION (MEASURED) (BEAKER) 58.1 % (test code = 1455) POCT-GLUCOSE [id number] 02:25:00 Test Item Value Reference Range Interpretation Comments POC-GLUCOSE METER 128 mg/dL 70-110 H : TESTED A T [facility] 6720 (BEAKER) (test code = [facility], 1538) [address]: Stitcher Hand/Techni ebenezer ID = [id number] for ANA URBAN POCT-GLUCOSE [id number] 01:22:39 Test Item Value Reference Range Interpretation Comments POC-GLUCOSE METER 131 mg/dL 70-110 H : TESTED A T [facility] 6720 (BEAKER) (test code = [facility], 1538) [address]: Stitcher Hand/Techni ebenezer ID = [id number] for ANA URBAN [id number] 23:24:39 Test Item Value Reference Range Interpretation Comments PARTIAL THROMBOPLASTIN TIME 46.1 seconds 22.5-36.0 H (BEAKER) (test code = 760) POCT-GLUCOSE [id number] 23:17:08 Test Item Value Reference Range Interpretation Comments POC-GLUCOSE METER 109 mg/dL 70-110 : TESTED A T [facility] 6720 (BEAKER) (test code = [facility], 1538) [id number]: Stitcher Hand/Techni ebenezer ID = [id number] for ANA URBAN [id number] 22:04:29 Test Item Value Reference Range Interpretation Comments MAGNESIUM (BEAKER) (test code = 2.1 mg/dL 1.6-2.6 627) Stitcher Hand ID - DBBASIC METABOLIC [id number] 22:04:28 Test Item Value Reference Range Interpretation Comments SODIUM (BEAKER) 136 meq/L 136-145 (test code = 381) POTASSIUM (BEAKER) 3.7 meq/L 3.5-5.1 (test code = 379) CHLORIDE (BEAKER) 92 meq/L 98-107 L (test code = 382) CO2 (BEAKER) (test 31 meq/L 22-29 H code = 355) BLOOD UREA NITROGEN 30 mg/dL 7-21 H (BEAKER) (test code = 354) CREATININE (BEAKER) 0.87 mg/dL 0.57-1.25 (test code = 358) GLUCOSE RANDOM 133 mg/dL 70-105 H (BEAKER) (test code = 652) CALCIUM (BEAKER) 9.2 mg/dL 8.4-10.2 (test code = 697) EGFR (BEAKER) (test 93 mL/min/1.73 ESTIMA NEELA GFR IS code = 1092) sq m NOT ACCURATE CREATININE CLEARANCE IN PREDICTING GLOMERULAR FILTRATION RATE . ESTIMATED GFR I S NOT APPLICABLE FOR DIALYSIS PATIEN TS. Stitcher Hand ID - DBPOCT-GLUCOSE [id number] 21:42:04 Test Item Value Reference Range Interpretation Comments POC-GLUCOSE METER 123 mg/dL 70-110 H : TESTED A T [facility] 6720 (BEAKER) (test code = [facility], 1538) [address]: Stitcher Hand/Techni ebenezer ID = [id number] for ANA URBAN CBC W/PLT COUNT & AUTO [id number] 21:39:45 Test Item Value Reference Range Interpretation Comments WHITE BLOOD CELL COUNT (BEAKER) 11.8 K/ L 3.5-10.5 H (test code = 775) RED BLOOD CELL COUNT (BEAKER) 2.85 M/ L 4.63-6.08 L (test code = 761) HEMOGLOBIN (BEAKER) (test code = 8.9 GM/DL 13.7-17.5 L 410) HEMATOCRIT (BEAKER) (test code = 28.2 % 40.1-51.0 L 411) MEAN CORPUSCULAR VOLUME (BEAKER) 98.9 fL 79.0-92.2 H (test code = 753) MEAN CORPUSCULAR HEMOGLOBIN 31.2 pg 25.7-32.2 (BEAKER) (test code = 751) MEAN CORPUSCULAR HEMOGLOBIN CONC 31.6 GM/DL 32.3-36.5 L (BEAKER) (test code = 752) RED CELL DISTRIBUTION WIDTH 17.5 % 11.6-14.4 H (BEAKER) (test code = 412) PLATELET COUNT (BEAKER) (test 195 K/CU MM 150-450 code = 756) MEAN PLATELET VOLUME (BEAKER) 9.6 fL 9.4-12.4 (test code = 754) NUCLEATED RED BLOOD CELLS 0 /100 WBC 0-0 (BEAKER) (test code = 413) NEUTROPHILS RELATIVE PERCENT 78 % (BEAKER) (test code = 429) LYMPHOCYTES RELATIVE PERCENT 12 % (BEAKER) (test code = 430) MONOCYTES RELATIVE PERCENT 5 % (BEAKER) (test code = 431) EOSINOPHILS RELATIVE PERCENT 2 % (BEAKER) (test code = 432) BASOPHILS RELATIVE PERCENT 0 % (BEAKER) (test code = 437) NEUTROPHILS ABSOLUTE COUNT 9.18 K/ L 1.78-5.38 H (BEAKER) (test code = 670) LYMPHOCYTES ABSOLUTE COUNT 1.45 K/ L 1.32-3.57 (BEAKER) (test code = 414) MONOCYTES ABSOLUTE COUNT (BEAKER) 0.58 K/ L 0.30-0.82 (test code = 415) EOSINOPHILS ABSOLUTE COUNT 0.28 K/ L 0.04-0.54 (BEAKER) (test code = 416) BASOPHILS ABSOLUTE COUNT (BEAKER) 0.04 K/ L 0.01-0.08 (test code = 417) IMMATURE GRANULOCYTES-RELATIVE 2 % 0-1 H PERCENT (BEAKER) (test code = 2801) POCT-GLUCOSE [id number] 21:37:06 Test Item Value Reference Range Interpretation Comments POC-GLUCOSE METER 135 mg/dL 70-110 H : TESTED A T [facility] 6720 (BEAKER) (test code = [facility], 1538) [address]: Stitcher Hand/Techni ebenezer ID = [id number] for SHAWN YOUSIF BLOOD [id number] 19:01:22 Test Item Value Reference Range Interpretation Comments CULTURE (BEAKER) (test No growth in 5 days code = 1095) The specimen volume collected for this blood culture was below the optimum (10 mL per bottle or 20 mL total). Use of lower volumes may adversely affect recovery and/or detection times of some organisms.BLOOD [id number] 19:01:21 Test Item Value Reference Range Interpretation Comments CULTURE (BEAKER) (test No growth in 5 days code = 1095) The specimen volume collected for this blood culture was below the optimum (10 mL per bottle or 20 mL total). Use of lower volumes may adversely affect recovery and/or detection times of some organisms.COMPREHENSIVE METABOLIC PANEL 2021-09-15 16:41:47 Test Item Value Reference Range Interpretation Comments TOTAL PROTEIN 6.8 gm/dL 6.0-8.3 Specimen sligh tly (BEAKER) (test code = hemoly zed 770) ALBUMIN (BEAKER) 3.3 g/dL 3.5-5.0 L Specimen sl ightly (test code = 1145) hemolyzed ALKALINE PHOSPHATASE 187 U/L 40-150 H (BEAKER) (test code = 346) BILIRUBIN TOTAL 0.9 mg/dL 0.2-1.2 Specimen sli ghtly (BEAKER) (test code = hemoly zed 377) SODIUM (BEAKER) (test 136 meq/L 136-145 code = 381) POTASSIUM (BEAKER) 3.4 meq/L 3.5-5.1 L Specimen slightly (test code = 379) hemolyzed CHLORIDE (BEAKER) 93 meq/L 98-107 L (test code = 382) CO2 (BEAKER) (test 31 meq/L 22-29 H code = 355) BLOOD UREA NITROGEN 26 mg/dL 7-21 H (BEAKER) (test code = 354) CREATININE (BEAKER) 0.84 mg/dL 0.57-1.25 Specimen slightly (test code = 358) hemolyzed GLUCOSE RANDOM 147 mg/dL 70-105 H (BEAKER) (test code = 652) CALCIUM (BEAKER) 9.4 mg/dL 8.4-10.2 (test code = 697) AST (SGOT) (BEAKER) 32 U/L 5-34 Specimen slightly (test code = 353) hemolyzed ALT (SGPT) (BEAKER) 28 U/L 6-55 Specimen slightly (test code = 347) hemolyzed EGFR (BEAKER) (test 97 mL/min/1.73 ESTIMA NEELA GFR IS code = 1092) sq m NOT ACCURATE CREATININE CLEARANCE IN PREDICTING GLOMERULAR FILTRATION RATE . ESTIMATED GFR I S NOT APPLICABLE FOR DIALYSIS PATIEN TS. Stitcher Hand ID - ISREAL [id number] 16:41:46 Test Item Value Reference Range Interpretation Comments MAGNESIUM (BEAKER) 2.1 mg/dL 1.6-2.6 Specimen slightly (test code = 627) hemolyzed Stitcher Hand ID - ISREAL [id number] 16:34:03 Test Item Value Reference Range Interpretation Comments PARTIAL THROMBOPLASTIN TIME 36.4 seconds 22.5-36.0 H (BEAKER) (test code = 760) LACTIC ACID, [id number] 16:33:45 Test Item Value Reference Range Interpretation Comments LACTATE BLOOD ARTERIAL (2) 0.9 mmol/L 0.5-2.2 (BEAKER) (test code = 2874) Stitcher Hand ID - ISREAL GPOCT-GLUCOSE [id number] 16:28:46 Test Item Value Reference Range Interpretation Comments POC-GLUCOSE METER 142 mg/dL 70-110 H : TESTED A T [facility] 6720 (BEAKER) (test code = [facility], 1538) [address]: Stitcher Hand/Techni ebenezer ID = [id number] for DO CHARLENE, PHOEBE POCT-GLUCOSE [id number] 16:24:09 Test Item Value Reference Range Interpretation Comments POC-GLUCOSE METER 124 mg/dL 70-110 H : TESTED A T [facility] 6720 ([place]) (test code = [facility], 1538) [address]: Stitcher Hand/Techni ebenezer ID = [id number] for DO CHARLENE, PHOEBE OXYGEN SATURATION, [id number] 16:19:38 Test Item Value Reference Range Interpretation Comments O2 SATURATION (MEASURED) (AKER) 59.7 % (test code = 1455) POCT-GLUCOSE [id number] 13:00:19 Test Item Value Reference Range Interpretation Comments POC-GLUCOSE METER 138 mg/dL 70-110 H : TESTED A T [facility] 6720 (BEAKER) (test code = [facility], 1538) [address]: Stitcher Hand/Techni ebenezer ID = [id number] for DO CHARLENE, PHOEBE POCT-GLUCOSE [id number] 12:47:08 Test Item Value Reference Range Interpretation Comments POC-GLUCOSE METER 119 mg/dL 70-110 H : TESTED A T [facility] 6720 (BEAKER) (test code = [facility], 1538) [address]: Stitcher Hand/Techni ebenezer ID = [id number] for DO CHARLENE, PHOEBE BASIC METABOLIC [id number] 11:44:42 Test Item Value Reference Range Interpretation Comments SODIUM (BEAKER) 138 meq/L 136-145 (test code = 381) POTASSIUM (BEAKER) 4.3 meq/L 3.5-5.1 Specimen moderately (test code = 379) hemolyzed CHLORIDE (BEAKER) 98 meq/L 98-107 (test code = 382) CO2 (BEAKER) (test 31 meq/L 22-29 H code = 355) BLOOD UREA NITROGEN 24 mg/dL 7-21 H (BEAKER) (test code = 354) CREATININE (BEAKER) 0.79 mg/dL 0.57-1.25 Specimen moderately (test code = 358) hemolyzed GLUCOSE RANDOM 128 mg/dL 70-105 H (BEAKER) (test code = 652) CALCIUM (BEAKER) 9.0 mg/dL 8.4-10.2 (test code = 697) EGFR (BEAKER) (test 104 mL/min/1.73 ESTIM ATED GFR IS code = 1092) sq m NOT ACCURATE CREATININE CLEARANCE IN PREDICTING GLOMERULAR FILTRATION RATE . ESTIMATED GFR I S NOT APPLICABLE FOR DIALYSIS PATIEN TS. Stitcher Hand ID - ISREAL GOXYGEN SATURATION, [id number] 11:27:50 Test Item Value Reference Range Interpretation Comments O2 SATURATION (MEASURED) (BEAKER) 52.6 % (test code = 1455) HGB/HCT (H&H) - STAT [id number] 11:26:06 Test Item Value Reference Range Interpretation Comments HEMOGLOBIN (BEAKER) (test code = 9.6 GM/DL 13.0-16.8 L 410) HEMATOCRIT (BEAKER) (test code = 28.0 % 40.0-50.0 L 411) BLOOD GAS, [id number] 11:26:05 Test Item Value Reference Range Interpretation Comments PH ARTERIAL (BEAKER) (test code = 7.51 7.35-7.45 H 383) PCO2 ARTERIAL (BEAKER) (test code 38 mm Hg 35-45 = 384) PO2 ARTERIAL (BEAKER) (test code = 114 mm Hg 80-90 H 385) O2 SATURATION ARTERIAL (BEAKER) 98.4 % 96.0-97.0 H (test code = 386) HCO3 ARTERIAL (BEAKER) (test code 29 mmol/L 21-29 = 388) BASE EXCESS ARTERIAL (BEAKER) 6.3 mmol/L -2.0-3.0 H (test code = 387) PATIENT TEMPERATURE (BEAKER) (test 37.9 code = 1818) FIO2 (BEAKER) (test code = 1819) 37.9 GLUCOSE-STAT [id number] 11:26:05 Test Item Value Reference Range Interpretation Comments GLUCOSE RANDOM (BEAKER) (test code 125 mg/dL 70-110 H = 652) SODIUM NA-STAT [id number] 11:25:55 Test Item Value Reference Range Interpretation Comments SODIUM (BEAKER) (test code = 381) 136 meq/L 136-145 POTASSIUM-STAT [id number] 11:25:55 Test Item Value Reference Range Interpretation Comments POTASSIUM (BEAKER) (test code = 3.8 meq/L 3.6-5.5 379) CBC W/PLT COUNT & AUTO [id number] 11:24:02 Test Item Value Reference Range Interpretation Comments WHITE BLOOD CELL COUNT (BEAKER) 12.6 K/ L 3.5-10.5 H (test code = 775) RED BLOOD CELL COUNT (BEAKER) 2.78 M/ L 4.63-6.08 L (test code = 761) HEMOGLOBIN (BEAKER) (test code = 8.7 GM/DL 13.7-17.5 L 410) HEMATOCRIT (BEAKER) (test code = 27.8 % 40.1-51.0 L 411) MEAN CORPUSCULAR VOLUME (BEAKER) 100.0 fL 79.0-92.2 H (test code = 753) MEAN CORPUSCULAR HEMOGLOBIN 31.3 pg 25.7-32.2 (BEAKER) (test code = 751) MEAN CORPUSCULAR HEMOGLOBIN CONC 31.3 GM/DL 32.3-36.5 L (BEAKER) (test code = 752) RED CELL DISTRIBUTION WIDTH 17.2 % 11.6-14.4 H (BEAKER) (test code = 412) PLATELET COUNT (BEAKER) (test 188 K/CU MM 150-450 code = 756) MEAN PLATELET VOLUME (BEAKER) 9.7 fL 9.4-12.4 (test code = 754) NUCLEATED RED BLOOD CELLS 0 /100 WBC 0-0 (BEAKER) (test code = 413) NEUTROPHILS RELATIVE PERCENT 81 % (BEAKER) (test code = 429) LYMPHOCYTES RELATIVE PERCENT 11 % (BEAKER) (test code = 430) MONOCYTES RELATIVE PERCENT 4 % (BEAKER) (test code = 431) EOSINOPHILS RELATIVE PERCENT 2 % (BEAKER) (test code = 432) BASOPHILS RELATIVE PERCENT 0 % (BEAKER) (test code = 437) NEUTROPHILS ABSOLUTE COUNT 10.12 K/ L 1.78-5.38 H (BEAKER) (test code = 670) LYMPHOCYTES ABSOLUTE COUNT 1.42 K/ L 1.32-3.57 (BEAKER) (test code = 414) MONOCYTES ABSOLUTE COUNT (BEAKER) 0.52 K/ L 0.30-0.82 (test code = 415) EOSINOPHILS ABSOLUTE COUNT 0.29 K/ L 0.04-0.54 (BEAKER) (test code = 416) BASOPHILS ABSOLUTE COUNT (BEAKER) 0.01 K/ L 0.01-0.08 (test code = 417) IMMATURE GRANULOCYTES-RELATIVE 2 % 0-1 H PERCENT (BEAKER) (test code = 2801) POCT-GLUCOSE [id number] 09:48:58 Test Item Value Reference Range Interpretation Comments POC-GLUCOSE METER 133 mg/dL 70-110 H : TESTED A T [facility] 6720 (BEAKER) (test code = [facility] [place], 1538) [address]: Stitcher Hand/Techni ebenezer ID = [id number] for SHAWN YOUSIF MISCELLANEOUS LAB [id number] 09:22:41 Test Item Value Reference Range Interpretation Comments SCAN RESULT (test code = See scanned report [id number]) See scanned reportRAD, CHEST, 1 VIEW, NON [id number] 07:28:00Reason for exam:->s/p LVADShould this be performed at the bedside?->Yes [facility]LE[facility] DANAAbimael MELENDEZ : 1970 Sex: MFINAL REPORT CLINICAL HISTORY: s/p LVAD TECHNIQUE: 1 view of the chest. COMPARISON: 09/14/2021 IMPRESSION: The supporting lines and tubes are similar appearing. Pulmonary vascular congestion and diffuse bilateral airspace opacities are unchanged. Small pleural effusions are again noted. The cardiomediastinal silhouette is magnified by technique with sternotomy wires, pacemaker, and LVAD. Signed: Constantine Araiza MDReport Verified Date/Time: 09/15/2021 07:28:07 Reading Location: [facility] Radiology Reading Room MAGNESIUM 2021-09-15 03:46:43 Test Item Value Reference Range Interpretation Comments MAGNESIUM (BEAKER) (test code = 2.1 mg/dL 1.6-2.6 627) Stitcher Hand ID - ISREAL [id number] 03:46:43 Test Item Value Reference Range Interpretation Comments PHOSPHORUS (BEAKER) (test code = 2.5 mg/dL 2.3-4.7 604) Stitcher Hand ID - ISREAL GLACTATE DEHYDROGENASE (LDH)2021-09-15 03:46:43 Test Item Value Reference Range Interpretation Comments LACTATE DEHYDROGENASE (BEAKER) (test 331 U/L 125-220 H code = 635) Stitcher Hand ID - ISREAL GCOMPREHENSIVE METABOLIC [id number] 03:46:42 Test Item Value Reference Range Interpretation Comments TOTAL PROTEIN 6.2 gm/dL 6.0-8.3 (BEAKER) (test code = 770) ALBUMIN (BEAKER) 3.2 g/dL 3.5-5.0 L (test code = 1145) ALKALINE PHOSPHATASE 175 U/L 40-150 H (BEAKER) (test code = 346) BILIRUBIN TOTAL 0.9 mg/dL 0.2-1.2 (BEAKER) (test code = 377) SODIUM (BEAKER) (test 140 meq/L 136-145 code = 381) POTASSIUM (BEAKER) 3.6 meq/L 3.5-5.1 (test code = 379) CHLORIDE (BEAKER) 98 meq/L 98-107 (test code = 382) CO2 (BEAKER) (test 32 meq/L 22-29 H code = 355) BLOOD UREA NITROGEN 22 mg/dL 7-21 H (BEAKER) (test code = 354) CREATININE (BEAKER) 0.76 mg/dL 0.57-1.25 (test code = 358) GLUCOSE RANDOM 133 mg/dL 70-105 H (BEAKER) (test code = 652) CALCIUM (BEAKER) 9.1 mg/dL 8.4-10.2 (test code = 697) AST (SGOT) (BEAKER) 30 U/L 5-34 (test code = 353) ALT (SGPT) (BEAKER) 28 U/L 6-55 (test code = 347) EGFR (BEAKER) (test 109 ESTIMATE D GFR IS code = 1092) mL/min/1.73 sq NOT ACCURA TE m CREATININE CLEARANCE IN PREDICTING GLOMERULAR FILTRATION RATE . ESTIMATED GFR I S NOT APPLICABLE FOR DIALYSIS PATIEN TS. Stitcher Hand ID - ISREAL [id number] 03:45:20 Test Item Value Reference Range Interpretation Comments PARTIAL THROMBOPLASTIN TIME 37.4 seconds 22.5-36.0 H (BEAKER) (test code = 760) PROTHROMBIN TIME/[id number] 03:44:35 Test Item Value Reference Range Interpretation Comments PROTIME (BEAKER) 15.2 seconds 11.9-14.2 H (test code = 759) INR (BEAKER) (test 1.22 See_Comment [Automat ed message] code = 370) The system g4interactive generated this result transmitted ref erence range: <=5.90. The reference range was not used to int erpret this result as normal/abnormal . RECOMMENDED COUMADIN/WARFARIN INR THERAPY RANGESSTANDARD DOSE: 2.0 - 3.0 Includes: PROPHYLAXIS for venous thrombosis, systemic embolization; TREATMENT for venous thrombosis and/or pulmonary embolus.HIGH RISK: Target INR is 2.5-3.5 for patients with mechanical heart valves.LACTIC ACID, [id number] 03:34:52 Test Item Value Reference Range Interpretation Comments LACTATE BLOOD ARTERIAL (2) 0.7 mmol/L 0.5-2.2 (BEAKER) (test code = 2874) Stitcher Hand ID - ISREAL GPOCT-GLUCOSE [id number] 03:31:35 Test Item Value Reference Range Interpretation Comments POC-GLUCOSE METER 119 mg/dL 70-110 H [facility] ([facility]ER) (test code = [place], 1538) [address]: Stitcher Hand/Techni ebenezer ID = [id number] for LLA, ANTHONY CBC W/PLT COUNT & AUTO [id number] 03:27:49 Test Item Value Reference Range Interpretation Comments WHITE BLOOD CELL COUNT (BEAKER) 11.8 K/ L 3.5-10.5 H (test code = 775) RED BLOOD CELL COUNT (BEAKER) 2.73 M/ L 4.63-6.08 L (test code = 761) HEMOGLOBIN (BEAKER) (test code = 8.6 GM/DL 13.7-17.5 L 410) HEMATOCRIT (BEAKER) (test code = 27.2 % 40.1-51.0 L 411) MEAN CORPUSCULAR VOLUME (BEAKER) 99.6 fL 79.0-92.2 H (test code = 753) MEAN CORPUSCULAR HEMOGLOBIN 31.5 pg 25.7-32.2 (BEAKER) (test code = 751) MEAN CORPUSCULAR HEMOGLOBIN CONC 31.6 GM/DL 32.3-36.5 L (BEAKER) (test code = 752) RED CELL DISTRIBUTION WIDTH 17.2 % 11.6-14.4 H (BEAKER) (test code = 412) PLATELET COUNT (BEAKER) (test 159 K/CU MM 150-450 code = 756) MEAN PLATELET VOLUME (BEAKER) 9.5 fL 9.4-12.4 (test code = 754) NUCLEATED RED BLOOD CELLS 0 /100 WBC 0-0 (BEAKER) (test code = 413) NEUTROPHILS RELATIVE PERCENT 83 % (BEAKER) (test code = 429) LYMPHOCYTES RELATIVE PERCENT 9 % (BEAKER) (test code = 430) MONOCYTES RELATIVE PERCENT 4 % (BEAKER) (test code = 431) EOSINOPHILS RELATIVE PERCENT 3 % (BEAKER) (test code = 432) BASOPHILS RELATIVE PERCENT 0 % (BEAKER) (test code = 437) NEUTROPHILS ABSOLUTE COUNT 9.75 K/ L 1.78-5.38 H (BEAKER) (test code = 670) LYMPHOCYTES ABSOLUTE COUNT 1.10 K/ L 1.32-3.57 L (BEAKER) (test code = 414) MONOCYTES ABSOLUTE COUNT (BEAKER) 0.48 K/ L 0.30-0.82 (test code = 415) EOSINOPHILS ABSOLUTE COUNT 0.29 K/ L 0.04-0.54 (BEAKER) (test code = 416) BASOPHILS ABSOLUTE COUNT (BEAKER) 0.02 K/ L 0.01-0.08 (test code = 417) IMMATURE GRANULOCYTES-RELATIVE 1 % 0-1 PERCENT (BEAKER) (test code = 2801) BLOOD GAS, [id number] 03:26:02 Test Item Value Reference Range Interpretation Comments PH ARTERIAL (BEAKER) (test code = 7.51 7.35-7.45 H 383) PCO2 ARTERIAL (BEAKER) (test code 43 mm Hg 35-45 = 384) PO2 ARTERIAL (BEAKER) (test code = 83 mm Hg 80-90 385) O2 SATURATION ARTERIAL (BEAKER) 96.6 % 96.0-97.0 (test code = 386) HCO3 ARTERIAL (BEAKER) (test code 33 mmol/L 21-29 H = 388) BASE EXCESS ARTERIAL (BEAKER) 9.2 mmol/L -2.0-3.0 H (test code = 387) PATIENT TEMPERATURE (BEAKER) (test 37.8 code = 1818) FIO2 (BEAKER) (test code = 1819) 40.0 OXYGEN SATURATION, [id number] 03:25:16 Test Item Value Reference Range Interpretation Comments O2 SATURATION (MEASURED) (BEAKER) 55.5 % (test code = 1455) POCT-GLUCOSE [id number] 03:19:41 Test Item Value Reference Range Interpretation Comments POC-GLUCOSE METER 118 mg/dL 70-110 H : [facility] (BEAKER) (test code = [place], 1538) [id number]: Stitcher Hand/Techni ebenezer ID = [id number] for Michelet mccullough (contract)Magdalena POCT-GLUCOSE [id number] 21:07:27 Test Item Value Reference Range Interpretation Comments POC-GLUCOSE METER 122 mg/dL 70-110 H : TESTED A T [facility] 6720 (BEAKER) (test code = M[place]INA [place], 1538) [address]: Stitcher Hand/Techni ebenezer ID = [id number] for ANTHONY FORRESTER CBC W/PLT COUNT & AUTO [id number] 21:06:54 Test Item Value Reference Range Interpretation Comments WHITE BLOOD CELL COUNT (BEAKER) 12.7 K/ L 3.5-10.5 H (test code = 775) RED BLOOD CELL COUNT (BEAKER) 2.72 M/ L 4.63-6.08 L (test code = 761) HEMOGLOBIN (BEAKER) (test code = 8.6 GM/DL 13.7-17.5 L 410) HEMATOCRIT (BEAKER) (test code = 27.2 % 40.1-51.0 L 411) MEAN CORPUSCULAR VOLUME (BEAKER) 100.0 fL 79.0-92.2 H (test code = 753) MEAN CORPUSCULAR HEMOGLOBIN 31.6 pg 25.7-32.2 (BEAKER) (test code = 751) MEAN CORPUSCULAR HEMOGLOBIN CONC 31.6 GM/DL 32.3-36.5 L (BEAKER) (test code = 752) RED CELL DISTRIBUTION WIDTH 17.2 % 11.6-14.4 H (BEAKER) (test code = 412) PLATELET COUNT (BEAKER) (test 144 K/CU MM 150-450 L code = 756) MEAN PLATELET VOLUME (BEAKER) 9.8 fL 9.4-12.4 (test code = 754) NUCLEATED RED BLOOD CELLS 0 /100 WBC 0-0 (BEAKER) (test code = 413) NEUTROPHILS RELATIVE PERCENT 86 % (BEAKER) (test code = 429) LYMPHOCYTES RELATIVE PERCENT 7 % (BEAKER) (test code = 430) MONOCYTES RELATIVE PERCENT 4 % (BEAKER) (test code = 431) EOSINOPHILS RELATIVE PERCENT 2 % (BEAKER) (test code = 432) BASOPHILS RELATIVE PERCENT 0 % (BEAKER) (test code = 437) NEUTROPHILS ABSOLUTE COUNT 10.87 K/ L 1.78-5.38 H (BEAKER) (test code = 670) LYMPHOCYTES ABSOLUTE COUNT 0.83 K/ L 1.32-3.57 L (BEAKER) (test code = 414) MONOCYTES ABSOLUTE COUNT (BEAKER) 0.50 K/ L 0.30-0.82 (test code = 415) EOSINOPHILS ABSOLUTE COUNT 0.29 K/ L 0.04-0.54 (BEAKER) (test code = 416) BASOPHILS ABSOLUTE COUNT (BEAKER) 0.02 K/ L 0.01-0.08 (test code = 417) IMMATURE GRANULOCYTES-RELATIVE 1 % 0-1 PERCENT (BEAKER) (test code = 2801) [id number] 15:46:11 Test Item Value Reference Range Interpretation Comments MAGNESIUM (BEAKER) (test code = 1.9 mg/dL 1.6-2.6 627) Stitcher Hand ID - ELLEN WCOMPREHENSIVE METABOLIC [id number] 15:46:10 Test Item Value Reference Range Interpretation Comments TOTAL PROTEIN 6.3 gm/dL 6.0-8.3 (BEAKER) (test code = 770) ALBUMIN (BEAKER) 3.2 g/dL 3.5-5.0 L (test code = 1145) ALKALINE PHOSPHATASE 173 U/L 40-150 H (BEAKER) (test code = 346) BILIRUBIN TOTAL 1.0 mg/dL 0.2-1.2 (BEAKER) (test code = 377) SODIUM (BEAKER) (test 144 meq/L 136-145 code = 381) POTASSIUM (BEAKER) 3.1 meq/L 3.5-5.1 L (test code = 379) CHLORIDE (BEAKER) 99 meq/L 98-107 (test code = 382) CO2 (BEAKER) (test 35 meq/L 22-29 H code = 355) BLOOD UREA NITROGEN 19 mg/dL 7-21 (BEAKER) (test code = 354) CREATININE (BEAKER) 0.71 mg/dL 0.57-1.25 (test code = 358) GLUCOSE RANDOM 120 mg/dL 70-105 H (BEAKER) (test code = 652) CALCIUM (BEAKER) 9.3 mg/dL 8.4-10.2 (test code = 697) AST (SGOT) (BEAKER) 46 U/L 5-34 H (test code = 353) ALT (SGPT) (BEAKER) 31 U/L 6-55 (test code = 347) EGFR (BEAKER) (test 117 ESTIMATE D GFR IS code = 1092) mL/min/1.73 sq NOT ACCURA TE m CREATININE CLEARANCE IN PREDICTING GLOMERULAR FILTRATION RATE . ESTIMATED GFR I S NOT APPLICABLE FOR DIALYSIS PATIEN TS. Stitcher Hand ID - ELLEN WOperator ID - ELLEN WLACTIC ACID, [id number] 15:34:29 Test Item Value Reference Range Interpretation Comments LACTATE BLOOD ARTERIAL (2) 0.8 mmol/L 0.5-2.2 (BEAKER) (test code = 2874) Stitcher Hand ID - ELLEN WCBC W/PLT COUNT & AUTO [id number] 15:31:18 Test Item Value Reference Range Interpretation Comments WHITE BLOOD CELL COUNT (BEAKER) 10.2 K/ L 3.5-10.5 (test code = 775) RED BLOOD CELL COUNT (BEAKER) 2.71 M/ L 4.63-6.08 L (test code = 761) HEMOGLOBIN (BEAKER) (test code = 8.5 GM/DL 13.7-17.5 L 410) HEMATOCRIT (BEAKER) (test code = 27.4 % 40.1-51.0 L 411) MEAN CORPUSCULAR VOLUME (BEAKER) 101.1 fL 79.0-92.2 H (test code = 753) MEAN CORPUSCULAR HEMOGLOBIN 31.4 pg 25.7-32.2 (BEAKER) (test code = 751) MEAN CORPUSCULAR HEMOGLOBIN CONC 31.0 GM/DL 32.3-36.5 L (BEAKER) (test code = 752) RED CELL DISTRIBUTION WIDTH 17.5 % 11.6-14.4 H (BEAKER) (test code = 412) PLATELET COUNT (BEAKER) (test 121 K/CU MM 150-450 L code = 756) MEAN PLATELET VOLUME (BEAKER) 9.6 fL 9.4-12.4 (test code = 754) NUCLEATED RED BLOOD CELLS 0 /100 WBC 0-0 (BEAKER) (test code = 413) NEUTROPHILS RELATIVE PERCENT 84 % (BEAKER) (test code = 429) LYMPHOCYTES RELATIVE PERCENT 8 % (BEAKER) (test code = 430) MONOCYTES RELATIVE PERCENT 4 % (BEAKER) (test code = 431) EOSINOPHILS RELATIVE PERCENT 3 % (BEAKER) (test code = 432) BASOPHILS RELATIVE PERCENT 0 % (BEAKER) (test code = 437) NEUTROPHILS ABSOLUTE COUNT 8.52 K/ L 1.78-5.38 H (BEAKER) (test code = 670) LYMPHOCYTES ABSOLUTE COUNT 0.76 K/ L 1.32-3.57 L (BEAKER) (test code = 414) MONOCYTES ABSOLUTE COUNT (BEAKER) 0.45 K/ L 0.30-0.82 (test code = 415) EOSINOPHILS ABSOLUTE COUNT 0.28 K/ L 0.04-0.54 (BEAKER) (test code = 416) BASOPHILS ABSOLUTE COUNT (BEAKER) 0.01 K/ L 0.01-0.08 (test code = 417) IMMATURE GRANULOCYTES-RELATIVE 2 % 0-1 H PERCENT (BEAKER) (test code = 2801) POCT-GLUCOSE [id number] 15:31:12 Test Item Value Reference Range Interpretation Comments POC-GLUCOSE METER 113 mg/dL 70-110 H : TESTED A T [facility] 6720 (BEAKER) (test code = MELVINA Olson [facility], 1538) [address]: Stitcher Hand/Techni ebenezer ID = [id number] for OS SAKOW (V), MARCUS OXYGEN SATURATION, [id number] 15:23:06 Test Item Value Reference Range Interpretation Comments O2 SATURATION (MEASURED) (BEAKER) 63.3 % (test code = 1455) POCT-GLUCOSE [id number] 10:45:10 Test Item Value Reference Range Interpretation Comments POC-GLUCOSE METER 132 mg/dL 70-110 H : TESTED A T [facility] 6720 (BEAKER) (test code = MELVINA Olson [facility], 1538) [address]: Stitcher Hand/Techni ebenezer ID = [id number] for OS SAKOW (V), MARCUS RAD, CHEST, 1 VIEW, NON [id number] 04:33:00Reason for exam:->s/p LVADShould this be performed at the bedside?->Yes [facility] : 1970 Sex: MFINAL REPORT Chest one view. Clinical history: s/p LVAD Comparison: Chest qtwfiprdnt91/11/2021. Technique: A single frontal view of the chest was obtained. Findings:Support devices, lines and tubes are in satisfactory positions.The cardiomediastinal contours are stable. There are diffuse bilateral airspace opacities, mildly increased. There are small bilateral pleural effusions. There is no pneumothorax. Signed: Glenys King Verified Date/Time: 09/14/2021 04:33:28 LACTATE DEHYDROGENASE (LDH)2021-09-14 02:49:20 Test Item Value Reference Range Interpretation Comments LACTATE DEHYDROGENASE (BEAKER) (test 352 U/L 125-220 H code = 635) Stitcher Hand ID - FAUZIA [id number] 02:49:19 Test Item Value Reference Range Interpretation Comments MAGNESIUM (BEAKER) (test code = 1.9 mg/dL 1.6-2.6 627) Stitcher Hand ID Sal CAGE [id number] 02:49:19 Test Item Value Reference Range Interpretation Comments PHOSPHORUS (BEAKER) (test code = 2.1 mg/dL 2.3-4.7 L 604) Stitcher Hand ID Sal CAGE WCOMPREHENSIVE METABOLIC [id number] 02:49:18 Test Item Value Reference Range Interpretation Comments TOTAL PROTEIN 5.9 gm/dL 6.0-8.3 L (BEAKER) (test code = 770) ALBUMIN (BEAKER) 3.1 g/dL 3.5-5.0 L (test code = 1145) ALKALINE PHOSPHATASE 160 U/L 40-150 H (BEAKER) (test code = 346) BILIRUBIN TOTAL 0.8 mg/dL 0.2-1.2 (BEAKER) (test code = 377) SODIUM (BEAKER) (test 148 meq/L 136-145 H code = 381) POTASSIUM (BEAKER) 3.7 meq/L 3.5-5.1 (test code = 379) CHLORIDE (BEAKER) 107 meq/L 98-107 (test code = 382) CO2 (BEAKER) (test 31 meq/L 22-29 H code = 355) BLOOD UREA NITROGEN 21 mg/dL 7-21 (BEAKER) (test code = 354) CREATININE (BEAKER) 0.70 mg/dL 0.57-1.25 (test code = 358) GLUCOSE RANDOM 133 mg/dL 70-105 H (BEAKER) (test code = 652) CALCIUM (BEAKER) 8.8 mg/dL 8.4-10.2 (test code = 697) AST (SGOT) (BEAKER) 37 U/L 5-34 H (test code = 353) ALT (SGPT) (BEAKER) 26 U/L 6-55 (test code = 347) EGFR (BEAKER) (test 119 ESTIMATE D GFR IS code = 1092) mL/min/1.73 sq NOT ACCURA TE m CREATININE CLEARANCE IN PREDICTING GLOMERULAR FILTRATION RATE . ESTIMATED GFR I S NOT APPLICABLE FOR DIALYSIS PATIEN TS. Stitcher Hand ID - FAUZIA WLACTIC ACID, [id number] 02:44:25 Test Item Value Reference Range Interpretation Comments LACTATE BLOOD ARTERIAL (2) 0.6 mmol/L 0.5-2.2 (BEAKER) (test code = 2874) Stitcher Hand ID - [id number] 02:43:11 Test Item Value Reference Range Interpretation Comments PARTIAL THROMBOPLASTIN TIME 37.7 seconds 22.5-36.0 H (BEAKER) (test code = 760) PROTHROMBIN TIME/[id number] 02:42:15 Test Item Value Reference Range Interpretation Comments PROTIME (BEAKER) 14.5 seconds 11.9-14.2 H (test code = 759) INR (BEAKER) (test 1.15 See_Comment [Automat ed message] code = 370) The system g4interactive generated this result transmitted ref erence range: <=5.90. The reference range was not used to int erpret this result as normal/abnormal . RECOMMENDED COUMADIN/WARFARIN INR THERAPY RANGESSTANDARD DOSE: 2.0 - 3.0 Includes: PROPHYLAXIS for venous thrombosis, systemic embolization; TREATMENT for venous thrombosis and/or pulmonary embolus.HIGH RISK: Target INR is 2.5-3.5 for patients with mechanical heart valves.HGB/HCT (H&H) - STAT [id number] 02:24:18 Test Item Value Reference Range Interpretation Comments HEMOGLOBIN (BEAKER) (test code = 8.5 GM/DL 13.0-16.8 L 410) HEMATOCRIT (BEAKER) (test code = 25.0 % 40.0-50.0 L 411) GLUCOSE-STAT [id number] 02:24:17 Test Item Value Reference Range Interpretation Comments GLUCOSE RANDOM (BEAKER) (test code 134 mg/dL 70-110 H = 652) BLOOD GAS, [id number] 02:24:16 Test Item Value Reference Range Interpretation Comments PH ARTERIAL (BEAKER) (test code = 7.48 7.35-7.45 H 383) PCO2 ARTERIAL (BEAKER) (test code 48 mm Hg 35-45 H = 384) PO2 ARTERIAL (BEAKER) (test code 185 mm Hg 80-90 H = 385) O2 SATURATION ARTERIAL (BEAKER) 99.3 % 96.0-97.0 H (test code = 386) HCO3 ARTERIAL (BEAKER) (test code 35 mmol/L 21-29 H = 388) BASE EXCESS ARTERIAL (BEAKER) 10.4 mmol/L -2.0-3.0 H (test code = 387) PATIENT TEMPERATURE (BEAKER) 36.7 (test code = 1818) FIO2 (BEAKER) (test code = 1819) 50.0 OXYGEN SATURATION, [id number] 02:23:14 Test Item Value Reference Range Interpretation Comments O2 SATURATION (MEASURED) (BEAKER) 64.4 % (test code = 1455) CBC W/PLT COUNT & AUTO [id number] 02:23:03 Test Item Value Reference Range Interpretation Comments WHITE BLOOD CELL COUNT (BEAKER) 8.8 K/ L 3.5-10.5 (test code = 775) RED BLOOD CELL COUNT (BEAKER) 2.55 M/ L 4.63-6.08 L (test code = 761) HEMOGLOBIN (BEAKER) (test code = 8.1 GM/DL 13.7-17.5 L 410) HEMATOCRIT (BEAKER) (test code = 26.1 % 40.1-51.0 L 411) MEAN CORPUSCULAR VOLUME (BEAKER) 102.4 fL 79.0-92.2 H (test code = 753) MEAN CORPUSCULAR HEMOGLOBIN 31.8 pg 25.7-32.2 (BEAKER) (test code = 751) MEAN CORPUSCULAR HEMOGLOBIN CONC 31.0 GM/DL 32.3-36.5 L (BEAKER) (test code = 752) RED CELL DISTRIBUTION WIDTH 18.1 % 11.6-14.4 H (BEAKER) (test code = 412) PLATELET COUNT (BEAKER) (test 107 K/CU MM 150-450 L code = 756) MEAN PLATELET VOLUME (BEAKER) 9.5 fL 9.4-12.4 (test code = 754) NUCLEATED RED BLOOD CELLS 1 /100 WBC 0-0 H (BEAKER) (test code = 413) NEUTROPHILS RELATIVE PERCENT 82 % (BEAKER) (test code = 429) LYMPHOCYTES RELATIVE PERCENT 9 % (BEAKER) (test code = 430) MONOCYTES RELATIVE PERCENT 5 % (BEAKER) (test code = 431) EOSINOPHILS RELATIVE PERCENT 2 % (BEAKER) (test code = 432) BASOPHILS RELATIVE PERCENT 0 % (BEAKER) (test code = 437) NEUTROPHILS ABSOLUTE COUNT 7.22 K/ L 1.78-5.38 H (BEAKER) (test code = 670) LYMPHOCYTES ABSOLUTE COUNT 0.81 K/ L 1.32-3.57 L (BEAKER) (test code = 414) MONOCYTES ABSOLUTE COUNT (BEAKER) 0.44 K/ L 0.30-0.82 (test code = 415) EOSINOPHILS ABSOLUTE COUNT 0.18 K/ L 0.04-0.54 (BEAKER) (test code = 416) BASOPHILS ABSOLUTE COUNT (BEAKER) 0.02 K/ L 0.01-0.08 (test code = 417) IMMATURE GRANULOCYTES-RELATIVE 2 % 0-1 H PERCENT (BEAKER) (test code = 2805) POTASSIUM-STAT [id number] 02:22:52 Test Item Value Reference Range Interpretation Comments POTASSIUM (BEAKER) (test code = 3.6 meq/L 3.6-5.5 379) SODIUM NA-STAT [id number] 02:22:51 Test Item Value Reference Range Interpretation Comments SODIUM (BEAKER) (test code = 381) 147 meq/L 136-145 H [id number] 23:10:10 Test Item Value Reference Range Interpretation Comments SODIUM (BEAKER) (test code = 381) 148 meq/L 136-145 H Stitcher Hand ID - DBCBC W/PLT COUNT & AUTO [id number] 23:08:13 Test Item Value Reference Range Interpretation Comments WHITE BLOOD CELL COUNT (BEAKER) 10.0 K/ L 3.5-10.5 (test code = 775) RED BLOOD CELL COUNT (BEAKER) 2.60 M/ L 4.63-6.08 L (test code = 761) HEMOGLOBIN (BEAKER) (test code = 8.1 GM/DL 13.7-17.5 L 410) HEMATOCRIT (BEAKER) (test code = 26.5 % 40.1-51.0 L 411) MEAN CORPUSCULAR VOLUME (BEAKER) 101.9 fL 79.0-92.2 H (test code = 753) MEAN CORPUSCULAR HEMOGLOBIN 31.2 pg 25.7-32.2 (BEAKER) (test code = 751) MEAN CORPUSCULAR HEMOGLOBIN CONC 30.6 GM/DL 32.3-36.5 L (BEAKER) (test code = 752) RED CELL DISTRIBUTION WIDTH 18.2 % 11.6-14.4 H (BEAKER) (test code = 412) PLATELET COUNT (BEAKER) (test 117 K/CU MM 150-450 L code = 756) MEAN PLATELET VOLUME (BEAKER) 9.9 fL 9.4-12.4 (test code = 754) NUCLEATED RED BLOOD CELLS 1 /100 WBC 0-0 H (BEAKER) (test code = 413) NEUTROPHILS RELATIVE PERCENT 84 % (BEAKER) (test code = 429) LYMPHOCYTES RELATIVE PERCENT 8 % (BEAKER) (test code = 430) MONOCYTES RELATIVE PERCENT 5 % (BEAKER) (test code = 431) EOSINOPHILS RELATIVE PERCENT 2 % (BEAKER) (test code = 432) BASOPHILS RELATIVE PERCENT 0 % (BEAKER) (test code = 437) NEUTROPHILS ABSOLUTE COUNT 8.34 K/ L 1.78-5.38 H (BEAKER) (test code = 670) LYMPHOCYTES ABSOLUTE COUNT 0.76 K/ L 1.32-3.57 L (BEAKER) (test code = 414) MONOCYTES ABSOLUTE COUNT (BEAKER) 0.51 K/ L 0.30-0.82 (test code = 415) EOSINOPHILS ABSOLUTE COUNT 0.20 K/ L 0.04-0.54 (BEAKER) (test code = 416) BASOPHILS ABSOLUTE COUNT (BEAKER) 0.02 K/ L 0.01-0.08 (test code = 417) IMMATURE GRANULOCYTES-RELATIVE 1 % 0-1 PERCENT (BEAKER) (test code = 2801) HGB/HCT (H&H) - STAT [id number] 22:58:36 Test Item Value Reference Range Interpretation Comments HEMOGLOBIN (BEAKER) (test code = 9.0 GM/DL 13.0-16.8 L 410) HEMATOCRIT (BEAKER) (test code = 26.0 % 40.0-50.0 L 411) POTASSIUM-STAT [id number] 22:58:35 Test Item Value Reference Range Interpretation Comments POTASSIUM (BEAKER) (test code = 3.2 meq/L 3.6-5.5 L 379) GLUCOSE-STAT [id number] 22:58:35 Test Item Value Reference Range Interpretation Comments GLUCOSE RANDOM (BEAKER) (test code 158 mg/dL 70-110 H = 652) BLOOD GAS, [id number] 22:58:34 Test Item Value Reference Range Interpretation Comments PH ARTERIAL (BEAKER) (test code = 7.44 7.35-7.45 383) PCO2 ARTERIAL (BEAKER) (test code 55 mm Hg 35-45 H = 384) PO2 ARTERIAL (BEAKER) (test code 168 mm Hg 80-90 H = 385) O2 SATURATION ARTERIAL (BEAKER) 99.2 % 96.0-97.0 H (test code = 386) HCO3 ARTERIAL (BEAKER) (test code 37 mmol/L 21-29 H = 388) BASE EXCESS ARTERIAL (BEAKER) 10.9 mmol/L -2.0-3.0 H (test code = 387) PATIENT TEMPERATURE (BEAKER) 36.7 (test code = 1818) FIO2 (BEAKER) (test code = 1819) 50.0 SODIUM NA-STAT [id number] 22:58:08 Test Item Value Reference Range Interpretation Comments SODIUM (BEAKER) (test code = 381) 148 meq/L 136-145 H POCT-GLUCOSE [id number] 19:20:36 Test Item Value Reference Range Interpretation Comments POC-GLUCOSE METER 112 mg/dL 70-110 H : TESTED A T [facility] 6720 (BEAKER) (test code = MELVINA [place], 1538) [address]: Stitcher Hand/Techni ebenezer ID = [id number] for OS MARGARETH ([place])MARCUS [id number] 15:31:00 Test Item Value Reference Range Interpretation Comments MAGNESIUM (BEAKER) (test code = 2.0 mg/dL 1.6-2.6 627) Stitcher Hand ID - SO MCOMPREHENSIVE METABOLIC [id number] 15:30:59 Test Item Value Reference Range Interpretation Comments TOTAL PROTEIN 6.3 gm/dL 6.0-8.3 (BEAKER) (test code = 770) ALBUMIN (BEAKER) 3.2 g/dL 3.5-5.0 L (test code = 1145) ALKALINE PHOSPHATASE 160 U/L 40-150 H (BEAKER) (test code = 346) BILIRUBIN TOTAL 1.0 mg/dL 0.2-1.2 (BEAKER) (test code = 377) SODIUM (BEAKER) (test 152 meq/L 136-145 H code = 381) POTASSIUM (BEAKER) 3.4 meq/L 3.5-5.1 L (test code = 379) CHLORIDE (BEAKER) 109 meq/L 98-107 H (test code = 382) CO2 (BEAKER) (test 35 meq/L 22-29 H code = 355) BLOOD UREA NITROGEN 25 mg/dL 7-21 H (BEAKER) (test code = 354) CREATININE (BEAKER) 0.78 mg/dL 0.57-1.25 (test code = 358) GLUCOSE RANDOM 138 mg/dL 70-105 H (BEAKER) (test code = 652) CALCIUM (BEAKER) 8.7 mg/dL 8.4-10.2 (test code = 697) AST (SGOT) (BEAKER) 35 U/L 5-34 H (test code = 353) ALT (SGPT) (BEAKER) 24 U/L 6-55 (test code = 347) EGFR (BEAKER) (test 105 ESTIMATE D GFR IS code = 1092) mL/min/1.73 sq NOT ACCURA TE m CREATININE CLEARANCE IN PREDICTING GLOMERULAR FILTRATION RATE . ESTIMATED GFR I S NOT APPLICABLE FOR DIALYSIS PATIEN TS. Stitcher Hand ID - SO [id number] 15:25:40 Test Item Value Reference Range Interpretation Comments PARTIAL THROMBOPLASTIN TIME 35.4 seconds 22.5-36.0 (BEAKER) (test code = 760) LACTIC ACID, [id number] 15:20:38 Test Item Value Reference Range Interpretation Comments LACTATE BLOOD ARTERIAL (2) 0.8 mmol/L 0.5-2.2 (BEAKER) (test code = 2874) Stitcher Hand ID - SO MBLOOD GAS, [id number] 15:16:28 Test Item Value Reference Range Interpretation Comments PH ARTERIAL (BEAKER) (test code = 7.47 7.35-7.45 H 383) PCO2 ARTERIAL (BEAKER) (test code 49 mm Hg 35-45 H = 384) PO2 ARTERIAL (BEAKER) (test code 173 mm Hg 80-90 H = 385) O2 SATURATION ARTERIAL (BEAKER) 99.2 % 96.0-97.0 H (test code = 386) HCO3 ARTERIAL (BEAKER) (test code 35 mmol/L 21-29 H = 388) BASE EXCESS ARTERIAL (BEAKER) 10.2 mmol/L -2.0-3.0 H (test code = 387) PATIENT TEMPERATURE (BEAKER) 37.4 (test code = 1818) FIO2 (BEAKER) (test code = 1819) 60.0 POCT-GLUCOSE [id number] 13:15:08 Test Item Value Reference Range Interpretation Comments POC-GLUCOSE METER 117 mg/dL 70-110 H : TESTED A T [facility] 6720 (BEAKER) (test code = [place]INA [place], 1538) [id number]: Stitcher Hand/Techni ebenezer ID = [id number] for OS MARGARETH (V), MARCUS BLOOD GAS, [id number] 13:14:57 Test Item Value Reference Range Interpretation Comments PH ARTERIAL (BEAKER) (test code = 7.47 7.35-7.45 H 383) PCO2 ARTERIAL (BEAKER) (test code 51 mm Hg 35-45 H = 384) PO2 ARTERIAL (BEAKER) (test code 159 mm Hg 80-90 H = 385) O2 SATURATION ARTERIAL (BEAKER) 99.1 % 96.0-97.0 H (test code = 386) HCO3 ARTERIAL (BEAKER) (test code 36 mmol/L 21-29 H = 388) BASE EXCESS ARTERIAL (BEAKER) 10.8 mmol/L -2.0-3.0 H (test code = 387) PATIENT TEMPERATURE (BEAKER) 36.9 (test code = 1818) FIO2 (BEAKER) (test code = 1819) 40.0 BLOOD GAS, [id number] 11:37:36 Test Item Value Reference Range Interpretation Comments PH ARTERIAL (BEAKER) (test code = 7.45 7.35-7.45 383) PCO2 ARTERIAL (BEAKER) (test code 50 mm Hg 35-45 H = 384) PO2 ARTERIAL (BEAKER) (test code = 155 mm Hg 80-90 H 385) O2 SATURATION ARTERIAL (BEAKER) 99.0 % 96.0-97.0 H (test code = 386) HCO3 ARTERIAL (BEAKER) (test code 34 mmol/L 21-29 H = 388) BASE EXCESS ARTERIAL (BEAKER) 8.6 mmol/L -2.0-3.0 H (test code = 387) PATIENT TEMPERATURE (BEAKER) (test 36.8 code = 1818) FIO2 (BEAKER) (test code = 1819) 40.0 CBC W/PLT COUNT & AUTO [id number] 09:43:01 Test Item Value Reference Range Interpretation Comments WHITE BLOOD CELL COUNT (BEAKER) 9.3 K/ L 3.5-10.5 (test code = 775) RED BLOOD CELL COUNT (BEAKER) 2.75 M/ L 4.63-6.08 L (test code = 761) HEMOGLOBIN (BEAKER) (test code = 8.7 GM/DL 13.7-17.5 L 410) HEMATOCRIT (BEAKER) (test code = 27.5 % 40.1-51.0 L 411) MEAN CORPUSCULAR VOLUME (BEAKER) 100.0 fL 79.0-92.2 H (test code = 753) MEAN CORPUSCULAR HEMOGLOBIN 31.6 pg 25.7-32.2 (BEAKER) (test code = 751) MEAN CORPUSCULAR HEMOGLOBIN CONC 31.6 GM/DL 32.3-36.5 L (BEAKER) (test code = 752) RED CELL DISTRIBUTION WIDTH 18.1 % 11.6-14.4 H (BEAKER) (test code = 412) PLATELET COUNT (BEAKER) (test 114 K/CU MM 150-450 L code = 756) MEAN PLATELET VOLUME (BEAKER) 9.6 fL 9.4-12.4 (test code = 754) NUCLEATED RED BLOOD CELLS 1 /100 WBC 0-0 H (BEAKER) (test code = 413) NEUTROPHILS RELATIVE PERCENT 83 % (BEAKER) (test code = 429) LYMPHOCYTES RELATIVE PERCENT 8 % (BEAKER) (test code = 430) MONOCYTES RELATIVE PERCENT 5 % (BEAKER) (test code = 431) EOSINOPHILS RELATIVE PERCENT 2 % (BEAKER) (test code = 432) BASOPHILS RELATIVE PERCENT 0 % (BEAKER) (test code = 437) NEUTROPHILS ABSOLUTE COUNT 7.71 K/ L 1.78-5.38 H (BEAKER) (test code = 670) LYMPHOCYTES ABSOLUTE COUNT 0.71 K/ L 1.32-3.57 L (BEAKER) (test code = 414) MONOCYTES ABSOLUTE COUNT (BEAKER) 0.50 K/ L 0.30-0.82 (test code = 415) EOSINOPHILS ABSOLUTE COUNT 0.21 K/ L 0.04-0.54 (BEAKER) (test code = 416) BASOPHILS ABSOLUTE COUNT (BEAKER) 0.03 K/ L 0.01-0.08 (test code = 417) IMMATURE GRANULOCYTES-RELATIVE 2 % 0-1 H PERCENT (BEAKER) (test code = 2801) GLUCOSE-STAT [id number] 09:33:01 Test Item Value Reference Range Interpretation Comments GLUCOSE RANDOM (BEAKER) (test code 115 mg/dL 70-110 H = 652) OXYGEN SATURATION, [id number] 09:32:43 Test Item Value Reference Range Interpretation Comments O2 SATURATION (MEASURED) (BEAKER) 69.8 % (test code = 1455) RAD, CHEST, 1 VIEW, NON [id number] 07:22:00Reason for exam:->s/p LVADShould this be performed at the bedside?->Yes [facility] 1970 Sex: MFINAL REPORT RAD, CHEST, 1 VIEW, NON DEPT INDICATION: s/p LVAD COMPARISON: Prior day's exam FINDINGS: Portable frontal view of the chest. IMPRESSION: Support Lines: [place] tip overlies the pulmonary outflow tract. Sternotomy wires. Feeding tube descends below the diaphragm. Cardiac support hardware is otherwise unchanged. Lungs and pleura: Increased bilateral interstitial thickening concerning for mild volume overload with interstitial edema. Lungs remain hypoinflated. No significant pneumothorax. Heart and mediastinum: Stable contours. Additional findings: None. Signed: Keila Sortoepdeborah Verified Date/Time: 09/13/2021 07:22:16 LACTATE DEHYDROGENASE (LDH) 2021-09-13 04:59:05 Test Item Value Reference Range Interpretation Comments LACTATE DEHYDROGENASE (BEAKER) (test 405 U/L 125-220 H code = 635) Stitcher Hand ID - [id number] 04:59:04 Test Item Value Reference Range Interpretation Comments PHOSPHORUS (BEAKER) (test code = 2.6 mg/dL 2.3-4.7 604) Stitcher Hand ID - [id number] 04:59:03 Test Item Value Reference Range Interpretation Comments MAGNESIUM (BEAKER) (test code = 2.0 mg/dL 1.6-2.6 627) Stitcher Hand ID - DBCOMPREHENSIVE METABOLIC [id number] 04:59:02 Test Item Value Reference Range Interpretation Comments TOTAL PROTEIN 6.3 gm/dL 6.0-8.3 (BEAKER) (test code = 770) ALBUMIN (BEAKER) 3.3 g/dL 3.5-5.0 L (test code = 1145) ALKALINE PHOSPHATASE 141 U/L 40-150 (BEAKER) (test code = 346) BILIRUBIN TOTAL 0.8 mg/dL 0.2-1.2 (BEAKER) (test code = 377) SODIUM (BEAKER) (test 149 meq/L 136-145 H code = 381) POTASSIUM (BEAKER) 3.0 meq/L 3.5-5.1 L (test code = 379) CHLORIDE (BEAKER) 106 meq/L 98-107 (test code = 382) CO2 (BEAKER) (test 31 meq/L 22-29 H code = 355) BLOOD UREA NITROGEN 29 mg/dL 7-21 H (BEAKER) (test code = 354) CREATININE (BEAKER) 0.82 mg/dL 0.57-1.25 (test code = 358) GLUCOSE RANDOM 127 mg/dL 70-105 H (BEAKER) (test code = 652) CALCIUM (BEAKER) 8.6 mg/dL 8.4-10.2 (test code = 697) AST (SGOT) (BEAKER) 30 U/L 5-34 (test code = 353) ALT (SGPT) (BEAKER) 19 U/L 6-55 (test code = 347) EGFR (BEAKER) (test 99 mL/min/1.73 ESTIMA NEELA GFR IS code = 1092) sq m NOT ACCURATE CREATININE CLEARANCE IN PREDICTING GLOMERULAR FILTRATION RATE . ESTIMATED GFR I S NOT APPLICABLE FOR DIALYSIS PATIEN TS. Stitcher Hand ID - [id number] 04:25:27 Test Item Value Reference Range Interpretation Comments PARTIAL THROMBOPLASTIN TIME 31.6 seconds 22.5-36.0 (BEAKER) (test code = 760) PROTHROMBIN [id number] 04:24:26 Test Item Value Reference Range Interpretation Comments PROTIME (BEAKER) 14.4 seconds 11.9-14.2 H (test code = 759) INR (BEAKER) (test 1.13 See_Comment [Automat ed message] code = 370) The system g4interactive generated this result transmitted ref erence range: <=5.90. The reference range was not used to int erpret this result as normal/abnormal . RECOMMENDED COUMADIN/WARFARIN INR THERAPY RANGESSTANDARD DOSE: 2.0 - 3.0 Includes: PROPHYLAXIS for venous thrombosis, systemic embolization; TREATMENT for venous thrombosis and/or pulmonary embolus.HIGH RISK: Target INR is 2.5-3.5 for patients with mechanical heart valves.CBC W/PLT COUNT & AUTO [id number] 04:02:18 Test Item Value Reference Range Interpretation Comments WHITE BLOOD CELL COUNT (BEAKER) 10.9 K/ L 3.5-10.5 H (test code = 775) RED BLOOD CELL COUNT (BEAKER) 2.80 M/ L 4.63-6.08 L (test code = 761) HEMOGLOBIN (BEAKER) (test code = 8.8 GM/DL 13.7-17.5 L 410) HEMATOCRIT (BEAKER) (test code = 27.7 % 40.1-51.0 L 411) MEAN CORPUSCULAR VOLUME (BEAKER) 98.9 fL 79.0-92.2 H (test code = 753) MEAN CORPUSCULAR HEMOGLOBIN 31.4 pg 25.7-32.2 (BEAKER) (test code = 751) MEAN CORPUSCULAR HEMOGLOBIN CONC 31.8 GM/DL 32.3-36.5 L (BEAKER) (test code = 752) RED CELL DISTRIBUTION WIDTH 18.0 % 11.6-14.4 H (BEAKER) (test code = 412) PLATELET COUNT (BEAKER) (test 121 K/CU MM 150-450 L code = 756) MEAN PLATELET VOLUME (BEAKER) 9.6 fL 9.4-12.4 (test code = 754) NUCLEATED RED BLOOD CELLS 1 /100 WBC 0-0 H (BEAKER) (test code = 413) NEUTROPHILS RELATIVE PERCENT 84 % (BEAKER) (test code = 429) LYMPHOCYTES RELATIVE PERCENT 7 % (BEAKER) (test code = 430) MONOCYTES RELATIVE PERCENT 5 % (BEAKER) (test code = 431) EOSINOPHILS RELATIVE PERCENT 2 % (BEAKER) (test code = 432) BASOPHILS RELATIVE PERCENT 0 % (BEAKER) (test code = 437) NEUTROPHILS ABSOLUTE COUNT 9.15 K/ L 1.78-5.38 H (BEAKER) (test code = 670) LYMPHOCYTES ABSOLUTE COUNT 0.71 K/ L 1.32-3.57 L (BEAKER) (test code = 414) MONOCYTES ABSOLUTE COUNT (BEAKER) 0.57 K/ L 0.30-0.82 (test code = 415) EOSINOPHILS ABSOLUTE COUNT 0.22 K/ L 0.04-0.54 (BEAKER) (test code = 416) BASOPHILS ABSOLUTE COUNT (BEAKER) 0.02 K/ L 0.01-0.08 (test code = 417) IMMATURE GRANULOCYTES-RELATIVE 2 % 0-1 H PERCENT (BEAKER) (test code = 2801) LACTIC ACID, [id number] 04:00:38 Test Item Value Reference Range Interpretation Comments LACTATE BLOOD 1.0 mmol/L 0.5-2.2 Specimen sligh tly ARTERIAL (2) (BEAKER) hemoly zed (test code = 2874) Stitcher Hand ID - DBCALCIUM, [id number] 03:42:43 Test Item Value Reference Range Interpretation Comments CALCIUM IONIZED (BEAKER) (test 1.08 mmol/L 1.12-1.27 L code = 698) PH, BLOOD (BEAKER) (test code = 7.45 1810) BLOOD GAS, [id number] 03:42:42 Test Item Value Reference Range Interpretation Comments PH ARTERIAL (BEAKER) (test code = 7.46 7.35-7.45 H 383) PCO2 ARTERIAL (BEAKER) (test code 48 mm Hg 35-45 H = 384) PO2 ARTERIAL (BEAKER) (test code = 123 mm Hg 80-90 H 385) O2 SATURATION ARTERIAL (BEAKER) 98.6 % 96.0-97.0 H (test code = 386) HCO3 ARTERIAL (BEAKER) (test code 33 mmol/L 21-29 H = 388) BASE EXCESS ARTERIAL (BEAKER) 8.4 mmol/L -2.0-3.0 H (test code = 387) PATIENT TEMPERATURE (BEAKER) (test 36.6 code = 1818) FIO2 (BEAKER) (test code = 1819) 40.0 OXYGEN SATURATION, [id number] 03:41:55 Test Item Value Reference Range Interpretation Comments O2 SATURATION (MEASURED) (BEAKER) 67.4 % (test code = 1455) [id number] 21:48:18 Test Item Value Reference Range Interpretation Comments MAGNESIUM (BEAKER) (test code = 2.1 mg/dL 1.6-2.6 627) Stitcher Hand ID - ISREAL GCBC W/PLT COUNT & AUTO [id number] 21:33:20 Test Item Value Reference Range Interpretation Comments WHITE BLOOD CELL COUNT (BEAKER) 12.0 K/ L 3.5-10.5 H (test code = 775) RED BLOOD CELL COUNT (BEAKER) 2.81 M/ L 4.63-6.08 L (test code = 761) HEMOGLOBIN (BEAKER) (test code = 8.8 GM/DL 13.7-17.5 L 410) HEMATOCRIT (BEAKER) (test code = 27.6 % 40.1-51.0 L 411) MEAN CORPUSCULAR VOLUME (BEAKER) 98.2 fL 79.0-92.2 H (test code = 753) MEAN CORPUSCULAR HEMOGLOBIN 31.3 pg 25.7-32.2 (BEAKER) (test code = 751) MEAN CORPUSCULAR HEMOGLOBIN CONC 31.9 GM/DL 32.3-36.5 L (BEAKER) (test code = 752) RED CELL DISTRIBUTION WIDTH 18.0 % 11.6-14.4 H (BEAKER) (test code = 412) PLATELET COUNT (BEAKER) (test 109 K/CU MM 150-450 L code = 756) MEAN PLATELET VOLUME (BEAKER) 9.6 fL 9.4-12.4 (test code = 754) NUCLEATED RED BLOOD CELLS 1 /100 WBC 0-0 H (BEAKER) (test code = 413) NEUTROPHILS RELATIVE PERCENT 84 % (BEAKER) (test code = 429) LYMPHOCYTES RELATIVE PERCENT 6 % (BEAKER) (test code = 430) MONOCYTES RELATIVE PERCENT 5 % (BEAKER) (test code = 431) EOSINOPHILS RELATIVE PERCENT 2 % (BEAKER) (test code = 432) BASOPHILS RELATIVE PERCENT 0 % (BEAKER) (test code = 437) NEUTROPHILS ABSOLUTE COUNT 10.07 K/ L 1.78-5.38 H (BEAKER) (test code = 670) LYMPHOCYTES ABSOLUTE COUNT 0.69 K/ L 1.32-3.57 L (BEAKER) (test code = 414) MONOCYTES ABSOLUTE COUNT (BEAKER) 0.63 K/ L 0.30-0.82 (test code = 415) EOSINOPHILS ABSOLUTE COUNT 0.22 K/ L 0.04-0.54 (BEAKER) (test code = 416) BASOPHILS ABSOLUTE COUNT (BEAKER) 0.02 K/ L 0.01-0.08 (test code = 417) IMMATURE GRANULOCYTES-RELATIVE 3 % 0-1 H PERCENT (BEAKER) (test code = 2801) GLUCOSE-STAT [id number] 21:30:23 Test Item Value Reference Range Interpretation Comments GLUCOSE RANDOM (BEAKER) (test code 153 mg/dL 70-110 H = 652) POTASSIUM-STAT [id number] 21:30:22 Test Item Value Reference Range Interpretation Comments POTASSIUM (BEAKER) (test code = 3.1 meq/L 3.6-5.5 L 379) BLOOD GAS, [id number] 21:30:21 Test Item Value Reference Range Interpretation Comments PH ARTERIAL (BEAKER) (test code = 7.44 7.35-7.45 383) PCO2 ARTERIAL (BEAKER) (test code 50 mm Hg 35-45 H = 384) PO2 ARTERIAL (BEAKER) (test code = 144 mm Hg 80-90 H 385) O2 SATURATION ARTERIAL (BEAKER) 98.9 % 96.0-97.0 H (test code = 386) HCO3 ARTERIAL (BEAKER) (test code 33 mmol/L 21-29 H = 388) BASE EXCESS ARTERIAL (BEAKER) 7.7 mmol/L -2.0-3.0 H (test code = 387) PATIENT TEMPERATURE (BEAKER) (test 36.6 code = 1818) FIO2 (BEAKER) (test code = 1819) 40.0 CALCIUM, [id number] 21:30:21 Test Item Value Reference Range Interpretation Comments CALCIUM IONIZED (BEAKER) (test 1.06 mmol/L 1.12-1.27 L code = 698) PH, BLOOD (BEAKER) (test code = 7.43 1810) POCT-GLUCOSE [id number] 19:13:59 Test Item Value Reference Range Interpretation Comments POC-GLUCOSE METER 128 mg/dL 70-110 H : TESTED A T [facility] 6720 (BEAKER) (test code = [place], 1538) [address]: Stitcher Hand/Techni ebenezer ID = [id number] for NIKKI BLANCO [id number] 15:25:26 Test Item Value Reference Range Interpretation Comments MAGNESIUM (BEAKER) (test code = 2.1 mg/dL 1.6-2.6 627) Stitcher Hand ID - ISREAL GCOMPREHENSIVE METABOLIC [id number] 15:25:25 Test Item Value Reference Range Interpretation Comments TOTAL PROTEIN 5.9 gm/dL 6.0-8.3 L (BEAKER) (test code = 770) ALBUMIN (BEAKER) 3.2 g/dL 3.5-5.0 L (test code = 1145) ALKALINE PHOSPHATASE 131 U/L 40-150 (BEAKER) (test code = 346) BILIRUBIN TOTAL 1.0 mg/dL 0.2-1.2 (BEAKER) (test code = 377) SODIUM (BEAKER) (test 146 meq/L 136-145 H code = 381) POTASSIUM (BEAKER) 4.0 meq/L 3.5-5.1 (test code = 379) CHLORIDE (BEAKER) 109 meq/L 98-107 H (test code = 382) CO2 (BEAKER) (test 29 meq/L 22-29 code = 355) BLOOD UREA NITROGEN 27 mg/dL 7-21 H (BEAKER) (test code = 354) CREATININE (BEAKER) 0.88 mg/dL 0.57-1.25 (test code = 358) GLUCOSE RANDOM 137 mg/dL 70-105 H (BEAKER) (test code = 652) CALCIUM (BEAKER) 8.9 mg/dL 8.4-10.2 (test code = 697) AST (SGOT) (BEAKER) 34 U/L 5-34 (test code = 353) ALT (SGPT) (BEAKER) 23 U/L 6-55 (test code = 347) EGFR (BEAKER) (test 92 mL/min/1.73 ESTIMA NEELA GFR IS code = 1092) sq m NOT ACCURATE CREATININE CLEARANCE IN PREDICTING GLOMERULAR FILTRATION RATE . ESTIMATED GFR I S NOT APPLICABLE FOR DIALYSIS PATIEN TS. Stitcher Hand ID - ISREAL GLACTIC ACID, [id number] 15:19:44 Test Item Value Reference Range Interpretation Comments LACTATE BLOOD ARTERIAL (2) 0.7 mmol/L 0.5-2.2 (BEAKER) (test code = 2874) Stitcher Hand ID - ISREAL GCBC W/PLT COUNT & AUTO [id number] 15:07:36 Test Item Value Reference Range Interpretation Comments WHITE BLOOD CELL COUNT (BEAKER) 13.9 K/ L 3.5-10.5 H (test code = 775) RED BLOOD CELL COUNT (BEAKER) 2.81 M/ L 4.63-6.08 L (test code = 761) HEMOGLOBIN (BEAKER) (test code = 8.8 GM/DL 13.7-17.5 L 410) HEMATOCRIT (BEAKER) (test code = 27.4 % 40.1-51.0 L 411) MEAN CORPUSCULAR VOLUME (BEAKER) 97.5 fL 79.0-92.2 H (test code = 753) MEAN CORPUSCULAR HEMOGLOBIN 31.3 pg 25.7-32.2 (BEAKER) (test code = 751) MEAN CORPUSCULAR HEMOGLOBIN CONC 32.1 GM/DL 32.3-36.5 L (BEAKER) (test code = 752) RED CELL DISTRIBUTION WIDTH 17.4 % 11.6-14.4 H (BEAKER) (test code = 412) PLATELET COUNT (BEAKER) (test 123 K/CU MM 150-450 L code = 756) MEAN PLATELET VOLUME (BEAKER) 10.0 fL 9.4-12.4 (test code = 754) NUCLEATED RED BLOOD CELLS 2 /100 WBC 0-0 H (BEAKER) (test code = 413) NEUTROPHILS RELATIVE PERCENT 83 % (BEAKER) (test code = 429) LYMPHOCYTES RELATIVE PERCENT 6 % (BEAKER) (test code = 430) MONOCYTES RELATIVE PERCENT 6 % (BEAKER) (test code = 431) EOSINOPHILS RELATIVE PERCENT 2 % (BEAKER) (test code = 432) BASOPHILS RELATIVE PERCENT 0 % (BEAKER) (test code = 437) NEUTROPHILS ABSOLUTE COUNT 11.58 K/ L 1.78-5.38 H (BEAKER) (test code = 670) LYMPHOCYTES ABSOLUTE COUNT 0.80 K/ L 1.32-3.57 L (BEAKER) (test code = 414) MONOCYTES ABSOLUTE COUNT (BEAKER) 0.82 K/ L 0.30-0.82 (test code = 415) EOSINOPHILS ABSOLUTE COUNT 0.30 K/ L 0.04-0.54 (BEAKER) (test code = 416) BASOPHILS ABSOLUTE COUNT (BEAKER) 0.04 K/ L 0.01-0.08 (test code = 417) IMMATURE GRANULOCYTES-RELATIVE 2 % 0-1 H PERCENT (BEAKER) (test code = 2801) GLUCOSE-STAT [id number] 11:44:13 Test Item Value Reference Range Interpretation Comments GLUCOSE RANDOM (BEAKER) (test code 131 mg/dL 70-110 H = 652) CALCIUM, [id number] 11:44:02 Test Item Value Reference Range Interpretation Comments CALCIUM IONIZED (BEAKER) (test 1.15 mmol/L 1.12-1.27 code = 698) PH, BLOOD (BEAKER) (test code = 7.43 1810) POTASSIUM-STAT [id number] 11:43:43 Test Item Value Reference Range Interpretation Comments POTASSIUM (BEAKER) (test code = 3.7 meq/L 3.6-5.5 379) TISSUE [id number] 11:20:50Surgical Pathology Report Case: [id number] Authorizing Provider: Morgan Hicks MD Collected:09/09/2021 10:45 AM Ordering Location: [facility] CV Recovery Room 2 Received: 09/09/2021 02:33 PM Pathologist: Yudi Woods MD Specimens: A) - Ventricle, Left, LEFT VENTRICLE CORE B) - Aortic, AORTIC PUNCH A. LEFT VENTRICLE CORE, EXCISION: - MODERATE CARDIOMYOCYTE HYPERTROPHY - MILD PATCHY INTERSTITIAL FIBROSIS - NEGATIVE FOR INFLAMMATION, GRANULOMAS, OR FEATURES OF STORAGE DISEASE - NEGATIVE FOR AMYLOID OR IRON DEPOSITIONB. AORTIC PUNCH, EXCISION:- VESSEL WALL WITH NO SIGNIFICANT DIAGNOSTIC ABNORMALITY Signing Pathologist Direct Phone Line: [phone] signed by Yudi Woods MD on 09/12/2021 at 11:20 AMSpecial stains for iron, trichrome, and congo red are examined.[id number], ON ECMOA. Ventricle, leftB. AorticA. Received fresh labeled with the patient's name, accession number and "left ventricle core" is a 4.5 x 2.8 x 1.5 cm aggregate of day-pink myocardial tissue that is partially surfaced by a smooth endocardium and epicardium. Sectioning reveals a day-pink, fibrous cut surface. The specimen is entirely submitted in A1-A7.B. Received fresh labeled the patient's name, accession number and "aortic punch" are multiple freeman-white, crescent-shaped soft tissue fragments that measure 0.4 x 0.2 x 0.2 cm on average, which are submitted in toto in B1.KAYE Gallego, HT (ASCP)Performed.The interpretation of this case included the use of immunohi stochemistry or special stains.Control Slides Examined: In-house known positive controls were evaluated along with the test tissue. These control slides run alongside of the patients sample show appropriate staining. Internal positive and negative controls when available are evaluated Immunohistochemistry technical testing was performed at [facility], Pathology Laboratory where it was developed and its performance characteristics were determined. It has not been cleared or approved by the U.S. Food and Drug Administration. The FDA has determined that such clearance or approvalis not necessary. The test is used for clinical purposes. It should not be regarded as investigational or for research. This laboratory is certified under the Clinical Laboratory Improvement Amendmentsof 1988 (CLIA-88) as qualified to perform high complexity clinical laboratory testing.RAD, CHEST, 1 VIEW, NON [id number] 04:50:00Reason for exam:->s/p LVADShould this be performed at the bedside?->YesVETERANS [facility] SAN DIEGOName: DANA WEST : 1970 Sex: MFINAL REPORT CLINICAL INDICATION: Support lines. Comparison: 09/11/2021 The cardiomediastinal contours are stable. The lung volumes remain low. Central pulmonary vascular prominence and bilateral parenchymal opacities are unchanged. There is no pneumothorax. Support lines are stable. Signed: Braeden Sylvester Verified Date/Time: 09/12/2021 04:50:27 PLASMA FREE [id number] 04:29:03 Test Item Value Reference Range Interpretation Comments HEMOGLOBIN PLASMA (BEAKER) (test 70.0 mg/dl 0.0-30.0 H code = 1054) [id number] 03:04:31 Test Item Value Reference Range Interpretation Comments PHOSPHORUS (BEAKER) (test code = 3.3 mg/dL 2.3-4.7 604) Stitcher Hand ID - ISREAL GLACTATE DEHYDROGENASE (LDH)2021-09-12 03:04:31 Test Item Value Reference Range Interpretation Comments LACTATE DEHYDROGENASE (BEAKER) (test 389 U/L 125-220 H code = 635) Stitcher Hand ID - ISREAL [id number] 03:04:30 Test Item Value Reference Range Interpretation Comments MAGNESIUM (BEAKER) (test code = 2.3 mg/dL 1.6-2.6 627) Stitcher Hand ID - ISREAL GCOMPREHENSIVE METABOLIC [id number] 03:04:29 Test Item Value Reference Range Interpretation Comments TOTAL PROTEIN 5.7 gm/dL 6.0-8.3 L (BEAKER) (test code = 770) ALBUMIN (BEAKER) 3.2 g/dL 3.5-5.0 L (test code = 1145) ALKALINE PHOSPHATASE 92 U/L 40-150 (BEAKER) (test code = 346) BILIRUBIN TOTAL 0.7 mg/dL 0.2-1.2 (BEAKER) (test code = 377) SODIUM (BEAKER) (test 144 meq/L 136-145 code = 381) POTASSIUM (BEAKER) 3.3 meq/L 3.5-5.1 L (test code = 379) CHLORIDE (BEAKER) 107 meq/L 98-107 (test code = 382) CO2 (BEAKER) (test 28 meq/L 22-29 code = 355) BLOOD UREA NITROGEN 28 mg/dL 7-21 H (BEAKER) (test code = 354) CREATININE (BEAKER) 0.87 mg/dL 0.57-1.25 (test code = 358) GLUCOSE RANDOM 145 mg/dL 70-105 H (BEAKER) (test code = 652) CALCIUM (BEAKER) 8.9 mg/dL 8.4-10.2 (test code = 697) AST (SGOT) (BEAKER) 35 U/L 5-34 H (test code = 353) ALT (SGPT) (BEAKER) 22 U/L 6-55 (test code = 347) EGFR (BEAKER) (test 93 mL/min/1.73 ESTIMA NEELA GFR IS code = 1092) sq m NOT ACCURATE CREATININE CLEARANCE IN PREDICTING GLOMERULAR FILTRATION RATE . ESTIMATED GFR I S NOT APPLICABLE FOR DIALYSIS PATIEN TS. Stitcher Hand ID - ISREAL GLACTIC ACID, [id number] 02:52:05 Test Item Value Reference Range Interpretation Comments LACTATE BLOOD ARTERIAL (2) 0.8 mmol/L 0.5-2.2 (BEAKER) (test code = 2874) Stitcher Hand ID - [id number] 02:52:04 Test Item Value Reference Range Interpretation Comments PARTIAL THROMBOPLASTIN TIME 35.9 seconds 22.5-36.0 (BEAKER) (test code = 760) PROTHROMBIN [id number] 02:51:26 Test Item Value Reference Range Interpretation Comments PROTIME (BEAKER) 14.8 seconds 11.9-14.2 H (test code = 759) INR (BEAKER) (test 1.17 See_Comment [Automat ed message] code = 370) The system g4interactive generated this result transmitted ref erence range: <=5.90. The reference range was not used to int erpret this result as normal/abnormal . RECOMMENDED COUMADIN/WARFARIN INR THERAPY RANGESSTANDARD DOSE: 2.0 - 3.0 Includes: PROPHYLAXIS for venous thrombosis, systemic embolization; TREATMENT for venous thrombosis and/or pulmonary embolus.HIGH RISK: Target INR is 2.5-3.5 for patients with mechanical heart valves.CBC W/PLT COUNT & AUTO [id number] 02:47:09 Test Item Value Reference Range Interpretation Comments WHITE BLOOD CELL COUNT (BEAKER) 14.5 K/ L 3.5-10.5 H (test code = 775) RED BLOOD CELL COUNT (BEAKER) 2.29 M/ L 4.63-6.08 L (test code = 761) HEMOGLOBIN (BEAKER) (test code = 7.1 GM/DL 13.7-17.5 L 410) HEMATOCRIT (BEAKER) (test code = 22.7 % 40.1-51.0 L 411) MEAN CORPUSCULAR VOLUME (BEAKER) 99.1 fL 79.0-92.2 H (test code = 753) MEAN CORPUSCULAR HEMOGLOBIN 31.0 pg 25.7-32.2 (BEAKER) (test code = 751) MEAN CORPUSCULAR HEMOGLOBIN CONC 31.3 GM/DL 32.3-36.5 L (BEAKER) (test code = 752) RED CELL DISTRIBUTION WIDTH 18.3 % 11.6-14.4 H (BEAKER) (test code = 412) PLATELET COUNT (BEAKER) (test 100 K/CU MM 150-450 L code = 756) MEAN PLATELET VOLUME (BEAKER) 9.9 fL 9.4-12.4 (test code = 754) NUCLEATED RED BLOOD CELLS 1 /100 WBC 0-0 H (BEAKER) (test code = 413) NEUTROPHILS RELATIVE PERCENT 86 % (BEAKER) (test code = 429) LYMPHOCYTES RELATIVE PERCENT 5 % (BEAKER) (test code = 430) MONOCYTES RELATIVE PERCENT 6 % (BEAKER) (test code = 431) EOSINOPHILS RELATIVE PERCENT 2 % (BEAKER) (test code = 432) BASOPHILS RELATIVE PERCENT 0 % (BEAKER) (test code = 437) NEUTROPHILS ABSOLUTE COUNT 12.36 K/ L 1.78-5.38 H (BEAKER) (test code = 670) LYMPHOCYTES ABSOLUTE COUNT 0.69 K/ L 1.32-3.57 L (BEAKER) (test code = 414) MONOCYTES ABSOLUTE COUNT (BEAKER) 0.84 K/ L 0.30-0.82 H (test code = 415) EOSINOPHILS ABSOLUTE COUNT 0.25 K/ L 0.04-0.54 (BEAKER) (test code = 416) BASOPHILS ABSOLUTE COUNT (BEAKER) 0.02 K/ L 0.01-0.08 (test code = 417) IMMATURE GRANULOCYTES-RELATIVE 2 % 0-1 H PERCENT (BEAKER) (test code = 2801) BLOOD GAS, [id number] 02:30:59 Test Item Value Reference Range Interpretation Comments PH ARTERIAL (BEAKER) (test code = 7.43 7.35-7.45 383) PCO2 ARTERIAL (BEAKER) (test code 44 mm Hg 35-45 = 384) PO2 ARTERIAL (BEAKER) (test code = 136 mm Hg 80-90 H 385) O2 SATURATION ARTERIAL (BEAKER) 98.8 % 96.0-97.0 H (test code = 386) HCO3 ARTERIAL (BEAKER) (test code 28 mmol/L 21-29 = 388) BASE EXCESS ARTERIAL (BEAKER) 3.5 mmol/L -2.0-3.0 H (test code = 387) PATIENT TEMPERATURE (BEAKER) (test 36.6 code = 1818) FIO2 (BEAKER) (test code = 1819) 40.0 CALCIUM, [id number] 02:28:59 Test Item Value Reference Range Interpretation Comments CALCIUM IONIZED (BEAKER) (test 1.16 mmol/L 1.12-1.27 code = 698) PH, BLOOD (BEAKER) (test code = 7.42 1810) OXYGEN SATURATION, [id number] 02:28:20 Test Item Value Reference Range Interpretation Comments O2 SATURATION (MEASURED) (BEAKER) 60.7 % (test code = 1455) HEMOGLOBIN AND [id number] 22:00:26 Test Item Value Reference Range Interpretation Comments HEMOGLOBIN (BEAKER) (test code = 7.4 GM/DL 13.7-17.5 L 410) HEMATOCRIT (BEAKER) (test code = 23.3 % 40.1-51.0 L 411) Stitcher Hand ID - 6000BLOOD GAS, [id number] 21:50:10 Test Item Value Reference Range Interpretation Comments PH ARTERIAL (BEAKER) (test code = 7.41 7.35-7.45 383) PCO2 ARTERIAL (BEAKER) (test code 44 mm Hg 35-45 = 384) PO2 ARTERIAL (BEAKER) (test code = 155 mm Hg 80-90 H 385) O2 SATURATION ARTERIAL (BEAKER) 99.0 % 96.0-97.0 H (test code = 386) HCO3 ARTERIAL (BEAKER) (test code 27 mmol/L 21-29 = 388) BASE EXCESS ARTERIAL (BEAKER) 1.8 mmol/L -2.0-3.0 (test code = 387) PATIENT TEMPERATURE (BEAKER) (test 36.7 code = 1818) FIO2 (BEAKER) (test code = 1819) 40.0 CALCIUM, [id number] 21:50:04 Test Item Value Reference Range Interpretation Comments CALCIUM IONIZED (BEAKER) (test 1.17 mmol/L 1.12-1.27 code = 698) PH, BLOOD (BEAKER) (test code = 7.40 1810) BLOOD GAS, [id number] 20:28:41 Test Item Value Reference Range Interpretation Comments PH ARTERIAL (BEAKER) (test code = 7.41 7.35-7.45 383) PCO2 ARTERIAL (BEAKER) (test code 43 mm Hg 35-45 = 384) PO2 ARTERIAL (BEAKER) (test code = 134 mm Hg 80-90 H 385) O2 SATURATION ARTERIAL (BEAKER) 98.7 % 96.0-97.0 H (test code = 386) HCO3 ARTERIAL (BEAKER) (test code 26 mmol/L 21-29 = 388) BASE EXCESS ARTERIAL (BEAKER) 1.4 mmol/L -2.0-3.0 (test code = 387) PATIENT TEMPERATURE (BEAKER) (test 36.4 code = 1818) FIO2 (BEAKER) (test code = 1819) 40.0 [id number] 20:22:33 Test Item Value Reference Range Interpretation Comments MAGNESIUM (BEAKER) (test code = 2.4 mg/dL 1.6-2.6 627) Stitcher Hand ID - DBBASIC METABOLIC [id number] 20:22:32 Test Item Value Reference Range Interpretation Comments SODIUM (BEAKER) 143 meq/L 136-145 (test code = 381) POTASSIUM (BEAKER) 4.1 meq/L 3.5-5.1 (test code = 379) CHLORIDE (BEAKER) 110 meq/L 98-107 H (test code = 382) CO2 (BEAKER) (test 26 meq/L 22-29 code = 355) BLOOD UREA NITROGEN 27 mg/dL 7-21 H (BEAKER) (test code = 354) CREATININE (BEAKER) 0.86 mg/dL 0.57-1.25 (test code = 358) GLUCOSE RANDOM 139 mg/dL 70-105 H (BEAKER) (test code = 652) CALCIUM (BEAKER) 9.0 mg/dL 8.4-10.2 (test code = 697) EGFR (BEAKER) (test 94 mL/min/1.73 ESTIMA NEELA GFR IS code = 1092) sq m NOT ACCURATE CREATININE CLEARANCE IN PREDICTING GLOMERULAR FILTRATION RATE . ESTIMATED GFR I S NOT APPLICABLE FOR DIALYSIS PATIEN TS. Stitcher Hand ID - DBCALCIUM, [id number] 19:58:45 Test Item Value Reference Range Interpretation Comments CALCIUM IONIZED (BEAKER) (test 1.18 mmol/L 1.12-1.27 code = 698) PH, BLOOD (BEAKER) (test code = 7.40 1810) POCT-GLUCOSE [id number] 18:55:42 Test Item Value Reference Range Interpretation Comments POC-GLUCOSE METER 135 mg/dL 70-110 H : TESTED A T [facility] 6720 (BEAKER) (test code = [place], 1538) [address]: Stitcher Hand/Techni ebenezer ID = [id number] for NIKKI BLANCO [id number] 15:31:02 Test Item Value Reference Range Interpretation Comments MAGNESIUM (BEAKER) (test code = 2.5 mg/dL 1.6-2.6 627) Stitcher Hand ID - SO MCOMPREHENSIVE METABOLIC [id number] 15:31:01 Test Item Value Reference Range Interpretation Comments TOTAL PROTEIN 5.6 gm/dL 6.0-8.3 L (BEAKER) (test code = 770) ALBUMIN (BEAKER) 3.2 g/dL 3.5-5.0 L (test code = 1145) ALKALINE PHOSPHATASE 81 U/L 40-150 (BEAKER) (test code = 346) BILIRUBIN TOTAL 0.8 mg/dL 0.2-1.2 (BEAKER) (test code = 377) SODIUM (BEAKER) (test 141 meq/L 136-145 code = 381) POTASSIUM (BEAKER) 4.3 meq/L 3.5-5.1 (test code = 379) CHLORIDE (BEAKER) 109 meq/L 98-107 H (test code = 382) CO2 (BEAKER) (test 26 meq/L 22-29 code = 355) BLOOD UREA NITROGEN 24 mg/dL 7-21 H (BEAKER) (test code = 354) CREATININE (BEAKER) 0.75 mg/dL 0.57-1.25 (test code = 358) GLUCOSE RANDOM 146 mg/dL 70-105 H (BEAKER) (test code = 652) CALCIUM (BEAKER) 8.9 mg/dL 8.4-10.2 (test code = 697) AST (SGOT) (BEAKER) 41 U/L 5-34 H (test code = 353) ALT (SGPT) (BEAKER) 23 U/L 6-55 (test code = 347) EGFR (BEAKER) (test 110 ESTIMATE D GFR IS code = 1092) mL/min/1.73 sq NOT ACCURA TE m CREATININE CLEARANCE IN PREDICTING GLOMERULAR FILTRATION RATE . ESTIMATED GFR I S NOT APPLICABLE FOR DIALYSIS PATIEN TS. Stitcher Hand ID - SO [facility] W/PLT COUNT & AUTO [id number] 15:29:16 Test Item Value Reference Range Interpretation Comments WHITE BLOOD CELL COUNT (BEAKER) 14.8 K/ L 3.5-10.5 H (test code = 775) RED BLOOD CELL COUNT (BEAKER) 2.35 M/ L 4.63-6.08 L (test code = 761) HEMOGLOBIN (BEAKER) (test code = 7.4 GM/DL 13.7-17.5 L 410) HEMATOCRIT (BEAKER) (test code = 23.1 % 40.1-51.0 L 411) MEAN CORPUSCULAR VOLUME (BEAKER) 98.3 fL 79.0-92.2 H (test code = 753) MEAN CORPUSCULAR HEMOGLOBIN 31.5 pg 25.7-32.2 (BEAKER) (test code = 751) MEAN CORPUSCULAR HEMOGLOBIN CONC 32.0 GM/DL 32.3-36.5 L (BEAKER) (test code = 752) RED CELL DISTRIBUTION WIDTH 18.3 % 11.6-14.4 H (BEAKER) (test code = 412) PLATELET COUNT (BEAKER) (test code 89 K/CU MM 150-450 L = 756) MEAN PLATELET VOLUME (BEAKER) 10.0 fL 9.4-12.4 (test code = 754) NUCLEATED RED BLOOD CELLS (BEAKER) 0 /100 WBC 0-0 (test code = 413) NEUTROPHILS RELATIVE PERCENT 83 % (BEAKER) (test code = 429) LYMPHOCYTES RELATIVE PERCENT 6 % (BEAKER) (test code = 430) MONOCYTES RELATIVE PERCENT 6 % (BEAKER) (test code = 431) EOSINOPHILS RELATIVE PERCENT 2 % (BEAKER) (test code = 432) BASOPHILS RELATIVE PERCENT 0 % (BEAKER) (test code = 437) NEUTROPHILS ABSOLUTE COUNT 12.32 K/ L 1.78-5.38 H (BEAKER) (test code = 670) LYMPHOCYTES ABSOLUTE COUNT 0.94 K/ L 1.32-3.57 L (BEAKER) (test code = 414) MONOCYTES ABSOLUTE COUNT (BEAKER) 0.94 K/ L 0.30-0.82 H (test code = 415) EOSINOPHILS ABSOLUTE COUNT 0.29 K/ L 0.04-0.54 (BEAKER) (test code = 416) BASOPHILS ABSOLUTE COUNT (BEAKER) 0.04 K/ L 0.01-0.08 (test code = 417) IMMATURE GRANULOCYTES-RELATIVE 2 % 0-1 H PERCENT (BEAKER) (test code = 2801) LACTIC ACID, [id number] 15:25:39 Test Item Value Reference Range Interpretation Comments LACTATE BLOOD ARTERIAL (2) 0.8 mmol/L 0.5-2.2 (BEAKER) (test code = 2874) Stitcher Hand ID - SO [id number] 10:59:46 Test Item Value Reference Range Interpretation Comments PROCALCITONIN (BEAKER) (test code 3.60 ng/mL <0.05 H = 3036) SEPSIS RISK (ng/mL)Low: 0.05-0.50Intermediate: 0.51-2.00High: >=2.01GLUCOSE- STAT [id number] 09:41:02 Test Item Value Reference Range Interpretation Comments GLUCOSE RANDOM (BEAKER) (test code 144 mg/dL 70-110 H = 652) BLOOD GAS, [id number] 09:41:01 Test Item Value Reference Range Interpretation Comments PH ARTERIAL (BEAKER) (test code = 7.41 7.35-7.45 383) PCO2 ARTERIAL (BEAKER) (test code 40 mm Hg 35-45 = 384) PO2 ARTERIAL (BEAKER) (test code 142 mm Hg 80-90 H = 385) O2 SATURATION ARTERIAL (BEAKER) 98.9 % 96.0-97.0 H (test code = 386) HCO3 ARTERIAL (BEAKER) (test code 25 mmol/L 21-29 = 388) BASE EXCESS ARTERIAL (BEAKER) -0.2 mmol/L -2.0-3.0 (test code = 387) PATIENT TEMPERATURE (BEAKER) 36.4 (test code = 1818) FIO2 (BEAKER) (test code = 1819) 40.0 [id number] 08:41:35 Test Item Value Reference Range Interpretation Comments ACTIVATED CLOTTING TIME 112 sec : 74 -137 seconds, (BEAKER) (test code = Baseli ne: TESTED AT 441) [address], [facility] 30: Stitcher Hand/Techni ebenezer ID = [id number] for HU DSPLEXIE, LILY [id number] 08:41:34 Test Item Value Reference Range Interpretation Comments ACTIVATED CLOTTING TIME 446 sec : 74 -137 seconds, (BEAKER) (test code = Baseli ne: TESTED AT 441) [address], [facility] 30: Stitcher Hand/Techni ebenezer ID = [id number] for HU DSPETH, LILY [id number] 08:41:34 Test Item Value Reference Range Interpretation Comments ACTIVATED CLOTTING TIME 547 sec : 74 -137 seconds, (BEAKER) (test code = Baseli ne: TESTED AT 441) [address], [facility] 30: Stitcher Hand/Techni ebenezer ID = [id number] for HU DSPETH, LILY [id number] 08:41:33 Test Item Value Reference Range Interpretation Comments ACTIVATED CLOTTING TIME 470 sec : 74 -137 seconds, (BEAKER) (test code = Baseli ne: TESTED AT 441) [address], [facility] 30: Stitcher Hand/Techni ebenezer ID = [id number] for HU DSPETH, LILY [id number] 08:41:32 Test Item Value Reference Range Interpretation Comments ACTIVATED CLOTTING TIME 701 sec : 74 -137 seconds, (BEAKER) (test code = Baseli ne: TESTED AT 441) [address], [facility] 30: Stitcher Hand/Techni ebenezer ID = [id number] for HU DSPETH, LILY RAD, CHEST, 1 VIEW, NON [id number] 07:54:00Reason for exam:->interval change Should this be performed at the bedside?->Yes [facility] : 1970 Sex: MFINAL REPORT RAD, CHEST, 1 VIEW, NON DEPT INDICATION: interval change COMPARISON: Prior day's exam FINDINGS: Portable frontal view of the chest. IMPRESSION: Limited by underpenetration.Support Lines: Stable. Lungs and pleura: No new consolidation. No pneumothorax.Heart and mediastinum:Stable contours. Stable surgical changes.Additional findings: None. Signed: JR Dumont RobertMDReport Verified Date/Time: 09/11/2021 07:54:37 Reading Location: [facility] Radiology Reading Room TSH/FREE T4 IF [id number] 03:58:53 Test Item Value Reference Range Interpretation Comments THYROID STIMULATING HORMONE 0.527 uIU/mL 0.350-4.940 (BEAKER) (test code = 772) Stitcher Hand ID - BSLACTATE DEHYDROGENASE (LDH)2021-09-11 03:41:12 Test Item Value Reference Range Interpretation Comments LACTATE DEHYDROGENASE (BEAKER) (test 379 U/L 125-220 H code = 635) Stitcher Hand ID - [id number] 03:41:11 Test Item Value Reference Range Interpretation Comments MAGNESIUM (BEAKER) (test code = 2.6 mg/dL 1.6-2.6 627) Stitcher Hand ID - [id number] 03:41:11 Test Item Value Reference Range Interpretation Comments PHOSPHORUS (BEAKER) (test code = 3.4 mg/dL 2.3-4.7 604) Stitcher Hand ID - BSCOMPREHENSIVE METABOLIC [id number] 03:41:10 Test Item Value Reference Range Interpretation Comments TOTAL PROTEIN 5.5 gm/dL 6.0-8.3 L (BEAKER) (test code = 770) ALBUMIN (BEAKER) 3.3 g/dL 3.5-5.0 L (test code = 1145) ALKALINE PHOSPHATASE 65 U/L 40-150 (BEAKER) (test code = 346) BILIRUBIN TOTAL 1.2 mg/dL 0.2-1.2 (BEAKER) (test code = 377) SODIUM (BEAKER) (test 137 meq/L 136-145 code = 381) POTASSIUM (BEAKER) 4.3 meq/L 3.5-5.1 (test code = 379) CHLORIDE (BEAKER) 108 meq/L 98-107 H (test code = 382) CO2 (BEAKER) (test 21 meq/L 22-29 L code = 355) BLOOD UREA NITROGEN 23 mg/dL 7-21 H (BEAKER) (test code = 354) CREATININE (BEAKER) 0.82 mg/dL 0.57-1.25 (test code = 358) GLUCOSE RANDOM 160 mg/dL 70-105 H (BEAKER) (test code = 652) CALCIUM (BEAKER) 9.9 mg/dL 8.4-10.2 (test code = 697) AST (SGOT) (BEAKER) 51 U/L 5-34 H (test code = 353) ALT (SGPT) (BEAKER) 20 U/L 6-55 (test code = 347) EGFR (BEAKER) (test 99 mL/min/1.73 ESTIMA NEELA GFR IS code = 1092) sq m NOT ACCURATE CREATININE CLEARANCE IN PREDICTING GLOMERULAR FILTRATION RATE . ESTIMATED GFR I S NOT APPLICABLE FOR DIALYSIS PATIEN TS. Stitcher Hand ID - BSLACTIC ACID, [id number] 03:20:47 Test Item Value Reference Range Interpretation Comments LACTATE BLOOD ARTERIAL (2) 1.0 mmol/L 0.5-2.2 (BEAKER) (test code = 2874) Stitcher Hand ID - [id number] 03:12:43 Test Item Value Reference Range Interpretation Comments PARTIAL THROMBOPLASTIN TIME 33.9 seconds 22.5-36.0 (BEAKER) (test code = 760) PROTHROMBIN TIME/[id number] 03:12:06 Test Item Value Reference Range Interpretation Comments PROTIME (BEAKER) 15.3 seconds 11.9-14.2 H (test code = 759) INR (BEAKER) (test 1.23 See_Comment [Automat ed message] code = 370) The system g4interactive generated this result transmitted ref erence range: <=5.90. The reference range was not used to int erpret this result as normal/abnormal . RECOMMENDED COUMADIN/WARFARIN INR THERAPY RANGESSTANDARD DOSE: 2.0 - 3.0 Includes: PROPHYLAXIS for venous thrombosis, systemic embolization; TREATMENT for venous thrombosis and/or pulmonary embolus.HIGH RISK: Target INR is 2.5-3.5 for patients with mechanical heart valves.CBC W/PLT COUNT & AUTO [id number] 03:00:02 Test Item Value Reference Range Interpretation Comments WHITE BLOOD CELL COUNT (BEAKER) 14.9 K/ L 3.5-10.5 H (test code = 775) RED BLOOD CELL COUNT (BEAKER) 2.51 M/ L 4.63-6.08 L (test code = 761) HEMOGLOBIN (BEAKER) (test code = 8.0 GM/DL 13.7-17.5 L 410) HEMATOCRIT (BEAKER) (test code = 24.3 % 40.1-51.0 L 411) MEAN CORPUSCULAR VOLUME (BEAKER) 96.8 fL 79.0-92.2 H (test code = 753) MEAN CORPUSCULAR HEMOGLOBIN 31.9 pg 25.7-32.2 (BEAKER) (test code = 751) MEAN CORPUSCULAR HEMOGLOBIN CONC 32.9 GM/DL 32.3-36.5 (BEAKER) (test code = 752) RED CELL DISTRIBUTION WIDTH 18.0 % 11.6-14.4 H (BEAKER) (test code = 412) PLATELET COUNT (BEAKER) (test code 85 K/CU MM 150-450 L = 756) MEAN PLATELET VOLUME (BEAKER) 9.3 fL 9.4-12.4 L (test code = 754) NUCLEATED RED BLOOD CELLS (BEAKER) 0 /100 WBC 0-0 (test code = 413) NEUTROPHILS RELATIVE PERCENT 85 % (BEAKER) (test code = 429) LYMPHOCYTES RELATIVE PERCENT 5 % (BEAKER) (test code = 430) MONOCYTES RELATIVE PERCENT 7 % (BEAKER) (test code = 431) EOSINOPHILS RELATIVE PERCENT 1 % (BEAKER) (test code = 432) BASOPHILS RELATIVE PERCENT 0 % (BEAKER) (test code = 437) NEUTROPHILS ABSOLUTE COUNT 12.64 K/ L 1.78-5.38 H (BEAKER) (test code = 670) LYMPHOCYTES ABSOLUTE COUNT 0.77 K/ L 1.32-3.57 L (BEAKER) (test code = 414) MONOCYTES ABSOLUTE COUNT (BEAKER) 1.08 K/ L 0.30-0.82 H (test code = 415) EOSINOPHILS ABSOLUTE COUNT 0.19 K/ L 0.04-0.54 (BEAKER) (test code = 416) BASOPHILS ABSOLUTE COUNT (BEAKER) 0.03 K/ L 0.01-0.08 (test code = 417) IMMATURE GRANULOCYTES-RELATIVE 1 % 0-1 PERCENT (BEAKER) (test code = 2801) OXYGEN SATURATION, [id number] 02:58:01 Test Item Value Reference Range Interpretation Comments O2 SATURATION (MEASURED) (BEAKER) 55.5 % (test code = 1455) BLOOD GAS, [id number] 02:53:49 Test Item Value Reference Range Interpretation Comments PH ARTERIAL (BEAKER) (test code = 7.40 7.35-7.45 383) PCO2 ARTERIAL (BEAKER) (test code 40 mm Hg 35-45 = 384) PO2 ARTERIAL (BEAKER) (test code 139 mm Hg 80-90 H = 385) O2 SATURATION ARTERIAL (BEAKER) 98.8 % 96.0-97.0 H (test code = 386) HCO3 ARTERIAL (BEAKER) (test code 24 mmol/L 21-29 = 388) BASE EXCESS ARTERIAL (BEAKER) -0.8 mmol/L -2.0-3.0 (test code = 387) PATIENT TEMPERATURE (BEAKER) 36.6 (test code = 1818) FIO2 (BEAKER) (test code = 1819) 40.0 CALCIUM, [id number] 02:53:16 Test Item Value Reference Range Interpretation Comments CALCIUM IONIZED (BEAKER) (test 1.23 mmol/L 1.12-1.27 code = 698) PH, BLOOD (BEAKER) (test code = 7.39 1810) [id number] 22:54:00 Test Item Value Reference Range Interpretation Comments MAGNESIUM (BEAKER) (test code = 2.4 mg/dL 1.6-2.6 627) Stitcher Hand ID - BSOXYGEN SATURATION, [id number] 22:43:21 Test Item Value Reference Range Interpretation Comments O2 SATURATION (MEASURED) (BEAKER) 56.4 % (test code = 1455) GLUCOSE-STAT [id number] 22:42:11 Test Item Value Reference Range Interpretation Comments GLUCOSE RANDOM (BEAKER) (test code 143 mg/dL 70-110 H = 652) BLOOD GAS, [id number] 22:42:05 Test Item Value Reference Range Interpretation Comments PH ARTERIAL (BEAKER) (test code = 7.39 7.35-7.45 383) PCO2 ARTERIAL (BEAKER) (test code 42 mm Hg 35-45 = 384) PO2 ARTERIAL (BEAKER) (test code 132 mm Hg 80-90 H = 385) O2 SATURATION ARTERIAL (BEAKER) 98.7 % 96.0-97.0 H (test code = 386) HCO3 ARTERIAL (BEAKER) (test code 25 mmol/L 21-29 = 388) BASE EXCESS ARTERIAL (BEAKER) -0.4 mmol/L -2.0-3.0 (test code = 387) PATIENT TEMPERATURE (BEAKER) 36.4 (test code = 1818) FIO2 (BEAKER) (test code = 1819) 40.0 CBC (HEMOGRAM ONLY)2021-09-10 22:38:35 Test Item Value Reference Range Interpretation Comments WHITE BLOOD CELL COUNT (BEAKER) 14.7 K/ L 3.5-10.5 H (test code = 775) RED BLOOD CELL COUNT (BEAKER) 2.60 M/ L 4.63-6.08 L (test code = 761) HEMOGLOBIN (BEAKER) (test code = 8.1 GM/DL 13.7-17.5 L 410) HEMATOCRIT (BEAKER) (test code = 25.0 % 40.1-51.0 L 411) MEAN CORPUSCULAR VOLUME (BEAKER) 96.2 fL 79.0-92.2 H (test code = 753) MEAN CORPUSCULAR HEMOGLOBIN 31.2 pg 25.7-32.2 (BEAKER) (test code = 751) MEAN CORPUSCULAR HEMOGLOBIN CONC 32.4 GM/DL 32.3-36.5 (BEAKER) (test code = 752) RED CELL DISTRIBUTION WIDTH 18.2 % 11.6-14.4 H (BEAKER) (test code = 412) PLATELET COUNT (BEAKER) (test code 90 K/CU MM 150-450 L = 756) MEAN PLATELET VOLUME (BEAKER) 9.4 fL 9.4-12.4 (test code = 754) NUCLEATED RED BLOOD CELLS (BEAKER) 0 /100 WBC 0-0 (test code = 413) LACTIC ACID, [id number] 19:48:08 Test Item Value Reference Range Interpretation Comments LACTATE BLOOD ARTERIAL (2) 1.0 mmol/L 0.5-2.2 (BEAKER) (test code = 2874) Stitcher Hand ID - BSCALCIUM, [id number] 19:35:26 Test Item Value Reference Range Interpretation Comments CALCIUM IONIZED (BEAKER) (test 1.23 mmol/L 1.12-1.27 code = 698) PH, BLOOD (BEAKER) (test code = 7.38 1810) BLOOD GAS, [id number] 19:34:50 Test Item Value Reference Range Interpretation Comments PH ARTERIAL (BEAKER) (test code = 7.38 7.35-7.45 383) PCO2 ARTERIAL (BEAKER) (test code 42 mm Hg 35-45 = 384) PO2 ARTERIAL (BEAKER) (test code 121 mm Hg 80-90 H = 385) O2 SATURATION ARTERIAL (BEAKER) 98.2 % 96.0-97.0 H (test code = 386) HCO3 ARTERIAL (BEAKER) (test code 24 mmol/L 21-29 = 388) BASE EXCESS ARTERIAL (BEAKER) -1.3 mmol/L -2.0-3.0 (test code = 387) PATIENT TEMPERATURE (BEAKER) 37.5 (test code = 1818) FIO2 (BEAKER) (test code = 1819) 40.0 OXYGEN SATURATION, [id number] 19:34:44 Test Item Value Reference Range Interpretation Comments O2 SATURATION (MEASURED) (BEAKER) 51.6 % (test code = 1455) [id number] 18:06:10 Test Item Value Reference Range Interpretation Comments MAGNESIUM (BEAKER) (test code = 2.1 mg/dL 1.6-2.6 627) Stitcher Hand ID - BSCOMPREHENSIVE METABOLIC [id number] 18:06:09 Test Item Value Reference Range Interpretation Comments TOTAL PROTEIN 5.2 gm/dL 6.0-8.3 L (BEAKER) (test code = 770) ALBUMIN (BEAKER) 3.2 g/dL 3.5-5.0 L (test code = 1145) ALKALINE PHOSPHATASE 60 U/L 40-150 (BEAKER) (test code = 346) BILIRUBIN TOTAL 1.2 mg/dL 0.2-1.2 (BEAKER) (test code = 377) SODIUM (BEAKER) (test 139 meq/L 136-145 code = 381) POTASSIUM (BEAKER) 4.2 meq/L 3.5-5.1 (test code = 379) CHLORIDE (BEAKER) 110 meq/L 98-107 H (test code = 382) CO2 (BEAKER) (test 22 meq/L 22-29 code = 355) BLOOD UREA NITROGEN 27 mg/dL 7-21 H (BEAKER) (test code = 354) CREATININE (BEAKER) 0.83 mg/dL 0.57-1.25 (test code = 358) GLUCOSE RANDOM 126 mg/dL 70-105 H (BEAKER) (test code = 652) CALCIUM (BEAKER) 8.9 mg/dL 8.4-10.2 (test code = 697) AST (SGOT) (BEAKER) 62 U/L 5-34 H (test code = 353) ALT (SGPT) (BEAKER) 22 U/L 6-55 (test code = 347) EGFR (BEAKER) (test 98 mL/min/1.73 ESTIMA NEELA GFR IS code = 1092) sq m NOT ACCURATE CREATININE CLEARANCE IN PREDICTING GLOMERULAR FILTRATION RATE . ESTIMATED GFR I S NOT APPLICABLE FOR DIALYSIS PATIEN TS. Stitcher Hand ID - BSLACTIC ACID, [id number] 17:56:10 Test Item Value Reference Range Interpretation Comments LACTATE BLOOD VENOUS (2) (BEAKER) 1.07 mmol/L 0.50-2.20 (test code = 2872) Stitcher Hand ID - BSCBC W/PLT COUNT & AUTO [id number] 17:52:50 Test Item Value Reference Range Interpretation Comments WHITE BLOOD CELL COUNT (BEAKER) 13.6 K/ L 3.5-10.5 H (test code = 775) RED BLOOD CELL COUNT (BEAKER) 2.67 M/ L 4.63-6.08 L (test code = 761) HEMOGLOBIN (BEAKER) (test code = 8.4 GM/DL 13.7-17.5 L 410) HEMATOCRIT (BEAKER) (test code = 25.5 % 40.1-51.0 L 411) MEAN CORPUSCULAR VOLUME (BEAKER) 95.5 fL 79.0-92.2 H (test code = 753) MEAN CORPUSCULAR HEMOGLOBIN 31.5 pg 25.7-32.2 (BEAKER) (test code = 751) MEAN CORPUSCULAR HEMOGLOBIN CONC 32.9 GM/DL 32.3-36.5 (BEAKER) (test code = 752) RED CELL DISTRIBUTION WIDTH 18.0 % 11.6-14.4 H (BEAKER) (test code = 412) PLATELET COUNT (BEAKER) (test code 98 K/CU MM 150-450 L = 756) MEAN PLATELET VOLUME (BEAKER) 9.6 fL 9.4-12.4 (test code = 754) NUCLEATED RED BLOOD CELLS (BEAKER) 0 /100 WBC 0-0 (test code = 413) NEUTROPHILS RELATIVE PERCENT 79 % (BEAKER) (test code = 429) LYMPHOCYTES RELATIVE PERCENT 9 % (BEAKER) (test code = 430) MONOCYTES RELATIVE PERCENT 9 % (BEAKER) (test code = 431) EOSINOPHILS RELATIVE PERCENT 1 % (BEAKER) (test code = 432) BASOPHILS RELATIVE PERCENT 0 % (BEAKER) (test code = 437) NEUTROPHILS ABSOLUTE COUNT 10.75 K/ L 1.78-5.38 H (BEAKER) (test code = 670) LYMPHOCYTES ABSOLUTE COUNT 1.27 K/ L 1.32-3.57 L (BEAKER) (test code = 414) MONOCYTES ABSOLUTE COUNT (BEAKER) 1.23 K/ L 0.30-0.82 H (test code = 415) EOSINOPHILS ABSOLUTE COUNT 0.13 K/ L 0.04-0.54 (BEAKER) (test code = 416) BASOPHILS ABSOLUTE COUNT (BEAKER) 0.04 K/ L 0.01-0.08 (test code = 417) IMMATURE GRANULOCYTES-RELATIVE 1 % 0-1 PERCENT (BEAKER) (test code = 2801) BLOOD GAS, [id number] 17:33:04 Test Item Value Reference Range Interpretation Comments PH ARTERIAL (BEAKER) (test code = 7.45 7.35-7.45 383) PCO2 ARTERIAL (BEAKER) (test code 23 mm Hg 35-45 L = 384) PO2 ARTERIAL (BEAKER) (test code 173 mm Hg 80-90 H = 385) O2 SATURATION ARTERIAL (BEAKER) 99.3 % 96.0-97.0 H (test code = 386) HCO3 ARTERIAL (BEAKER) (test code 16 mmol/L 21-29 L = 388) BASE EXCESS ARTERIAL (BEAKER) -7.3 mmol/L -2.0-3.0 L (test code = 387) PATIENT TEMPERATURE (BEAKER) 37.6 (test code = 1818) FIO2 (BEAKER) (test code = 1819) 50.0 CALCIUM, [id number] 17:31:41 Test Item Value Reference Range Interpretation Comments CALCIUM IONIZED (BEAKER) (test 1.18 mmol/L 1.12-1.27 code = 698) PH, BLOOD (BEAKER) (test code = 7.46 1810) RAD, ABDOMEN/KUB, 1 VIEW [id number] 15:35:00Reason for exam:->DHT placement [facility] : 1970 Sex: MFINAL REPORT Abdomen date 09/10/2021 Comment: Frontal view of the abdomen demonstrates a feeding tube present with tip noted in the gastric antrum. Signed: Herb Bonillaeport Verified Date/Time: 09/10/2021 15:35:32 POCT-GLUCOSE [id number] 14:16:22 Test Item Value Reference Range Interpretation Comments POC-GLUCOSE METER 116 mg/dL 70-110 H : TESTED A T [facility] 6720 (BEAKER) (test code = [facility], 1538) [id number]: Stitcher Hand/Techni ebenezer ID = [id number] for ANA RAI RA POCT-GLUCOSE [id number] 12:38:05 Test Item Value Reference Range Interpretation Comments POC-GLUCOSE METER 113 mg/dL 70-110 H : TESTED A T [facility] 6720 (BEAKER) (test code = [facility] [place] [facility], 1538) [id number]: Stitcher Hand/Techni ebenezer ID = [id number] for ANA RAI RA [id number] 12:19:53 Test Item Value Reference Range Interpretation Comments PROCALCITONIN (BEAKER) (test code 5.95 ng/mL <0.05 H = 3036) SEPSIS RISK (ng/mL)Low: 0.05-0.50Intermediate: 0.51-2.00High: >=2.01CORTISOL 2021-09-10 10:46:24 Test Item Value Reference Range Interpretation Comments CORTISOL, TOTAL (BEAKER) (test 15.9 ug/dL 3.7-19.4 code = 2755) Stitcher Hand ID - EMMANUEL FHEMOGLOBIN AND [id number] 10:20:45 Test Item Value Reference Range Interpretation Comments HEMOGLOBIN (BEAKER) (test code = 8.6 GM/DL 13.7-17.5 L 410) HEMATOCRIT (BEAKER) (test code = 26.7 % 40.1-51.0 L 411) Stitcher Hand ID - [id number] ID - [id number]-GLUCOSE [id number] 10:04:06 Test Item Value Reference Range Interpretation Comments POC-GLUCOSE METER 121 mg/dL 70-110 H : TESTED A T [facility] 6720 (BEAKER) (test code = [facility], 1538) [id number]: Stitcher Hand/Techni ebenezer ID = [id number] for ANA RAI RA OXYGEN SATURATION, [id number] 10:04:03 Test Item Value Reference Range Interpretation Comments O2 SATURATION (MEASURED) (BEAKER) 53.0 % (test code = 1455) RAD, CHEST, 1 VIEW, NON [id number] 10:03:00Reason for exam:->s/p [place] [facility] adjustmentCH[facility] : 1970 Sex: MFINAL REPORT TECHNIQUE: Frontal view of the chest. INDICATION: s/p [place] Miky adjustment COMPARISON: 09/10/2021. FINDINGS: LINES/TUBES: Endotracheal tube tip terminates over the thoracic trachea approximately 3.5 cm from the vicki. LVAD device is partially visualized. There is a left subclavian approach by ventricular pacer/ICD. The left IJ pulmonary arterial catheter tip terminates over the proximal right descending pulmonary artery. Mediastinal drain is in place. LUNGS: Unchanged small bilateral pleural effusions with basilar atelectasis. No pneumothorax HEART AND MEDIASTINUM: The cardiomediastinal silhouette is stable status post sternotomy. SOFT TISSUES AND BONES: Unremarkable. IMPRESSION:Pulmonary arterial catheter tip terminates over the proximal right descending pulmonary artery.. Signed: Ivanna Stocktonepdebroah Verified Date/Time: 09/10/2021 10:03:17 Electronicallysigned by: IVANNA STOCKTON MD on 09/10/2021 10:03 AMMISCELLANEOUS LAB ORDER 2021-09-10 07:45:36 Test Item Value Reference Range Interpretation Comments SCAN RESULT (test code = See scanned report [id number]) See scanned reportPOCT-GLUCOSE [id number] 06:36:23 Test Item Value Reference Range Interpretation Comments POC-GLUCOSE METER 127 mg/dL 70-110 H : TESTED [facility] T [facility] 6720 (BEAKER) (test code = [facility], 1538) [id number]: Stitcher Hand/Techni ebenezer ID = [id number] for RICH HERNANDEZ LACTATE DEHYDROGENASE (LDH)2021-09-10 05:13:48 Test Item Value Reference Range Interpretation Comments LACTATE DEHYDROGENASE (BEAKER) (test 427 U/L 125-220 H code = 635) Stitcher Hand ID - SO [id number] 05:13:47 Test Item Value Reference Range Interpretation Comments MAGNESIUM (BEAKER) (test code = 2.2 mg/dL 1.6-2.6 627) Stitcher Hand ID - SO [id number] 05:13:47 Test Item Value Reference Range Interpretation Comments PHOSPHORUS (BEAKER) (test code = 5.3 mg/dL 2.3-4.7 H 604) Stitcher Hand ID - SO MCOMPREHENSIVE METABOLIC [id number] 05:13:46 Test Item Value Reference Range Interpretation Comments TOTAL PROTEIN 5.4 gm/dL 6.0-8.3 L (BEAKER) (test code = 770) ALBUMIN (BEAKER) 3.4 g/dL 3.5-5.0 L (test code = 1145) ALKALINE PHOSPHATASE 67 U/L 40-150 (BEAKER) (test code = 346) BILIRUBIN TOTAL 1.9 mg/dL 0.2-1.2 H (BEAKER) (test code = 377) SODIUM (BEAKER) (test 139 meq/L 136-145 code = 381) POTASSIUM (BEAKER) 5.1 meq/L 3.5-5.1 (test code = 379) CHLORIDE (BEAKER) 107 meq/L 98-107 (test code = 382) CO2 (BEAKER) (test 25 meq/L 22-29 code = 355) BLOOD UREA NITROGEN 30 mg/dL 7-21 H (BEAKER) (test code = 354) CREATININE (BEAKER) 1.10 mg/dL 0.57-1.25 (test code = 358) GLUCOSE RANDOM 135 mg/dL 70-105 H (BEAKER) (test code = 652) CALCIUM (BEAKER) 9.4 mg/dL 8.4-10.2 (test code = 697) AST (SGOT) (BEAKER) 62 U/L 5-34 H (test code = 353) ALT (SGPT) (BEAKER) 25 U/L 6-55 (test code = 347) EGFR (BEAKER) (test 71 mL/min/1.73 ESTIMA NEELA GFR IS code = 1092) sq m NOT ACCURATE CREATININE CLEARANCE IN PREDICTING GLOMERULAR FILTRATION RATE . ESTIMATED GFR I S NOT APPLICABLE FOR DIALYSIS PATIEN TS. [facility] ID - SO MOXYGEN SATURATION, [id number] 05:00:43 Test Item Value Reference Range Interpretation Comments O2 SATURATION (MEASURED) (BEAKER) 53.9 % (test code = 1455) CBC W/PLT COUNT & AUTO [id number] 04:57:57 Test Item Value Reference Range Interpretation Comments WHITE BLOOD CELL COUNT (BEAKER) 11.5 K/ L 3.5-10.5 H (test code = 775) RED BLOOD CELL COUNT (BEAKER) 2.77 M/ L 4.63-6.08 L (test code = 761) HEMOGLOBIN (BEAKER) (test code = 8.9 GM/DL 13.7-17.5 L 410) HEMATOCRIT (BEAKER) (test code = 26.1 % 40.1-51.0 L 411) MEAN CORPUSCULAR VOLUME (BEAKER) 94.2 fL 79.0-92.2 H (test code = 753) MEAN CORPUSCULAR HEMOGLOBIN 32.1 pg 25.7-32.2 (BEAKER) (test code = 751) MEAN CORPUSCULAR HEMOGLOBIN CONC 34.1 GM/DL 32.3-36.5 (BEAKER) (test code = 752) RED CELL DISTRIBUTION WIDTH 17.5 % 11.6-14.4 H (BEAKER) (test code = 412) PLATELET COUNT (BEAKER) (test 113 K/CU MM 150-450 L code = 756) MEAN PLATELET VOLUME (BEAKER) 9.8 fL 9.4-12.4 (test code = 754) NUCLEATED RED BLOOD CELLS 0 /100 WBC 0-0 (BEAKER) (test code = 413) NEUTROPHILS RELATIVE PERCENT 75 % (BEAKER) (test code = 429) LYMPHOCYTES RELATIVE PERCENT 11 % (BEAKER) (test code = 430) MONOCYTES RELATIVE PERCENT 11 % (BEAKER) (test code = 431) EOSINOPHILS RELATIVE PERCENT 1 % (BEAKER) (test code = 432) BASOPHILS RELATIVE PERCENT 0 % (BEAKER) (test code = 437) NEUTROPHILS ABSOLUTE COUNT 8.69 K/ L 1.78-5.38 H (BEAKER) (test code = 670) LYMPHOCYTES ABSOLUTE COUNT 1.28 K/ L 1.32-3.57 L (BEAKER) (test code = 414) MONOCYTES ABSOLUTE COUNT (BEAKER) 1.24 K/ L 0.30-0.82 H (test code = 415) EOSINOPHILS ABSOLUTE COUNT 0.09 K/ L 0.04-0.54 (BEAKER) (test code = 416) BASOPHILS ABSOLUTE COUNT (BEAKER) 0.03 K/ L 0.01-0.08 (test code = 417) IMMATURE GRANULOCYTES-RELATIVE 2 % 0-1 H PERCENT (BEAKER) (test code = 2801) BLOOD GAS, [id number] 04:57:45 Test Item Value Reference Range Interpretation Comments PH ARTERIAL (BEAKER) (test code = 7.41 7.35-7.45 383) PCO2 ARTERIAL (BEAKER) (test code 39 mm Hg 35-45 = 384) PO2 ARTERIAL (BEAKER) (test code 192 mm Hg 80-90 H = 385) O2 SATURATION ARTERIAL (BEAKER) 99.3 % 96.0-97.0 H (test code = 386) HCO3 ARTERIAL (BEAKER) (test code 23 mmol/L 21-29 = 388) BASE EXCESS ARTERIAL (BEAKER) -0.5 mmol/L -2.0-3.0 (test code = 387) PATIENT TEMPERATURE (BEAKER) 39.0 (test code = 1818) FIO2 (BEAKER) (test code = 1819) 50.0 [id number] 04:57:19 Test Item Value Reference Range Interpretation Comments PARTIAL THROMBOPLASTIN TIME 31.8 seconds 22.5-36.0 (BEAKER) (test code = 760) [id number] 04:57:01 Test Item Value Reference Range Interpretation Comments FIBRINOGEN LEVEL (BEAKER) (test 299 mg/dl 225-434 code = 658) PROTHROMBIN TIME/[id number] 04:56:39 Test Item Value Reference Range Interpretation Comments PROTIME (BEAKER) 15.2 seconds 11.9-14.2 H (test code = 759) INR (BEAKER) (test 1.22 See_Comment [Automat ed message] code = 370) The system g4interactive generated this result transmitted ref erence range: <=5.90. The reference range was not used to int erpret this result as normal/abnormal . RECOMMENDED COUMADIN/WARFARIN INR THERAPY RANGESSTANDARD DOSE: 2.0 - 3.0 Includes: PROPHYLAXIS for venous thrombosis, systemic embolization; TREATMENT for venous thrombosis and/or pulmonary embolus.HIGH RISK: Target INR is 2.5-3.5 for patients with mechanical heart valves.LACTIC ACID, [id number] 04:50:19 Test Item Value Reference Range Interpretation Comments LACTATE BLOOD ARTERIAL (2) 1.1 mmol/L 0.5-2.2 (BEAKER) (test code = 2874) Stitcher Hand ID - SO MRAD, CHEST, 1 VIEW, NON [id number] 03:38:00Reason for exam:->interval change Should this be performed at the bedside?->Yes [facility] : 1970 Sex: MFINAL REPORT CLINICAL INDICATION: Support lines. Comparison: 09/09/2021 at 1709 hoursThe patient is rotated to the left. The cardiomediastinal contours are stable. Central pulmonary vascular prominence and bilateral perihilar parenchymal opacities have slightly worsened, suggesting worsening pulmonary edema. There is no pneumothorax. Support lines are stable. Signed: Braeden Sylvester Verified Date/Time: 09/10/2021 03:38:12 POCT-GLUCOSE [id number] 03:25:00 Test Item Value Reference Range Interpretation Comments POC-GLUCOSE METER 130 mg/dL 70-110 H : TESTED A T [facility] 6720 (BEAKER) (test code = [place], 1538) [id number]: Stitcher Hand/Techni ebenezer ID = [id number] for RICH HERNANDEZ COMPREHENSIVE METABOLIC [id number] 01:53:32 Test Item Value Reference Range Interpretation Comments TOTAL PROTEIN 5.2 gm/dL 6.0-8.3 L (BEAKER) (test code = 770) ALBUMIN (BEAKER) 3.3 g/dL 3.5-5.0 L (test code = 1145) ALKALINE PHOSPHATASE 59 U/L 40-150 (BEAKER) (test code = 346) BILIRUBIN TOTAL 1.6 mg/dL 0.2-1.2 H (BEAKER) (test code = 377) SODIUM (BEAKER) (test 139 meq/L 136-145 code = 381) POTASSIUM (BEAKER) 5.0 meq/L 3.5-5.1 (test code = 379) CHLORIDE (BEAKER) 106 meq/L 98-107 (test code = 382) CO2 (BEAKER) (test 24 meq/L 22-29 code = 355) BLOOD UREA NITROGEN 29 mg/dL 7-21 H (BEAKER) (test code = 354) CREATININE (BEAKER) 1.11 mg/dL 0.57-1.25 (test code = 358) GLUCOSE RANDOM 131 mg/dL 70-105 H (BEAKER) (test code = 652) CALCIUM (BEAKER) 9.6 mg/dL 8.4-10.2 (test code = 697) AST (SGOT) (BEAKER) 52 U/L 5-34 H (test code = 353) ALT (SGPT) (BEAKER) 24 U/L 6-55 (test code = 347) EGFR (BEAKER) (test 70 mL/min/1.73 ESTIMA NEELA GFR IS code = 1092) sq m NOT ACCURATE CREATININE CLEARANCE IN PREDICTING GLOMERULAR FILTRATION RATE . ESTIMATED GFR I S NOT APPLICABLE FOR DIALYSIS PATIEN TS. Stitcher Hand ID - SO MCBC W/PLT COUNT & AUTO [id number] 01:51:23 Test Item Value Reference Range Interpretation Comments WHITE BLOOD CELL COUNT (BEAKER) 11.5 K/ L 3.5-10.5 H (test code = 775) RED BLOOD CELL COUNT (BEAKER) 2.45 M/ L 4.63-6.08 L (test code = 761) HEMOGLOBIN (BEAKER) (test code = 7.8 GM/DL 13.7-17.5 L 410) HEMATOCRIT (BEAKER) (test code = 23.8 % 40.1-51.0 L 411) MEAN CORPUSCULAR VOLUME (BEAKER) 97.1 fL 79.0-92.2 H (test code = 753) MEAN CORPUSCULAR HEMOGLOBIN 31.8 pg 25.7-32.2 (BEAKER) (test code = 751) MEAN CORPUSCULAR HEMOGLOBIN CONC 32.8 GM/DL 32.3-36.5 (BEAKER) (test code = 752) RED CELL DISTRIBUTION WIDTH 17.6 % 11.6-14.4 H (BEAKER) (test code = 412) PLATELET COUNT (BEAKER) (test 112 K/CU MM 150-450 L code = 756) MEAN PLATELET VOLUME (BEAKER) 9.6 fL 9.4-12.4 (test code = 754) NUCLEATED RED BLOOD CELLS 0 /100 WBC 0-0 (BEAKER) (test code = 413) NEUTROPHILS RELATIVE PERCENT 75 % (BEAKER) (test code = 429) LYMPHOCYTES RELATIVE PERCENT 11 % (BEAKER) (test code = 430) MONOCYTES RELATIVE PERCENT 10 % (BEAKER) (test code = 431) EOSINOPHILS RELATIVE PERCENT 1 % (BEAKER) (test code = 432) BASOPHILS RELATIVE PERCENT 0 % (BEAKER) (test code = 437) NEUTROPHILS ABSOLUTE COUNT 8.68 K/ L 1.78-5.38 H (BEAKER) (test code = 670) LYMPHOCYTES ABSOLUTE COUNT 1.27 K/ L 1.32-3.57 L (BEAKER) (test code = 414) MONOCYTES ABSOLUTE COUNT (BEAKER) 1.18 K/ L 0.30-0.82 H (test code = 415) EOSINOPHILS ABSOLUTE COUNT 0.09 K/ L 0.04-0.54 (BEAKER) (test code = 416) BASOPHILS ABSOLUTE COUNT (BEAKER) 0.02 K/ L 0.01-0.08 (test code = 417) IMMATURE GRANULOCYTES-RELATIVE 2 % 0-1 H PERCENT (BEAKER) (test code = 2801) GLUCOSE-STAT [id number] 01:40:18 Test Item Value Reference Range Interpretation Comments GLUCOSE RANDOM (BEAKER) (test code 127 mg/dL 70-110 H = 652) BLOOD GAS, [id number] 01:40:17 Test Item Value Reference Range Interpretation Comments PH ARTERIAL (BEAKER) (test code = 7.43 7.35-7.45 383) PCO2 ARTERIAL (BEAKER) (test code 37 mm Hg 35-45 = 384) PO2 ARTERIAL (BEAKER) (test code 176 mm Hg 80-90 H = 385) O2 SATURATION ARTERIAL (BEAKER) 99.2 % 96.0-97.0 H (test code = 386) HCO3 ARTERIAL (BEAKER) (test code 24 mmol/L 21-29 = 388) BASE EXCESS ARTERIAL (BEAKER) -0.2 mmol/L -2.0-3.0 (test code = 387) PATIENT TEMPERATURE (BEAKER) 38.8 (test code = 1818) FIO2 (BEAKER) (test code = 1819) 50.0 OXYGEN SATURATION, [id number] 01:39:08 Test Item Value Reference Range Interpretation Comments O2 SATURATION (MEASURED) (BEAKER) 52.6 % (test code = 1455) POCT-GLUCOSE [id number] 00:28:14 Test Item Value Reference Range Interpretation Comments POC-GLUCOSE METER 129 mg/dL 70-110 H : TESTED A T [facility] 67[address] (BEAKER) (test code = [place], 1538) [address]: Stitcher Hand/Techni ebenezer ID = [id number] for GEE SHAIKH RICH COMPREHENSIVE METABOLIC [id number] 22:02:37 Test Item Value Reference Range Interpretation Comments TOTAL PROTEIN 5.3 gm/dL 6.0-8.3 L (BEAKER) (test code = 770) ALBUMIN (BEAKER) 3.4 g/dL 3.5-5.0 L (test code = 1145) ALKALINE PHOSPHATASE 65 U/L 40-150 (BEAKER) (test code = 346) BILIRUBIN TOTAL 2.3 mg/dL 0.2-1.2 H (BEAKER) (test code = 377) SODIUM (BEAKER) (test 136 meq/L 136-145 code = 381) POTASSIUM (BEAKER) 5.1 meq/L 3.5-5.1 (test code = 379) CHLORIDE (BEAKER) 104 meq/L 98-107 (test code = 382) CO2 (BEAKER) (test 22 meq/L 22-29 code = 355) BLOOD UREA NITROGEN 27 mg/dL 7-21 H (BEAKER) (test code = 354) CREATININE (BEAKER) 1.20 mg/dL 0.57-1.25 (test code = 358) GLUCOSE RANDOM 169 mg/dL 70-105 H (BEAKER) (test code = 652) CALCIUM (BEAKER) 10.1 mg/dL 8.4-10.2 (test code = 697) AST (SGOT) (BEAKER) 47 U/L 5-34 H (test code = 353) ALT (SGPT) (BEAKER) 20 U/L 6-55 (test code = 347) EGFR (BEAKER) (test 64 mL/min/1.73 ESTIMA NEELA GFR IS code = 1092) sq m NOT ACCURATE CREATININE CLEARANCE IN PREDICTING GLOMERULAR FILTRATION RATE . ESTIMATED GFR I S NOT APPLICABLE FOR DIALYSIS PATIEN TS. Stitcher Hand ID - BSSpecimen slightly ictericPT/[id number] 21:52:34 Test Item Value Reference Range Interpretation Comments PROTIME (BEAKER) (test 15.1 seconds 11.9-14.2 H code = 759) INR (BEAKER) (test 1.21 See_Comment [Automat ed code = 370) message] The sy stem which generated this result transmitted reference range : <=5.90. The reference range was not used to interpret this result as normal/abnormal . PARTIAL THROMBOPLASTIN 29.2 seconds 22.5-36.0 TIME (BEAKER) (test code = 760) RECOMMENDED COUMADIN/WARFARIN INR THERAPY RANGESSTANDARD DOSE: 2.0 - 3.0 Includes: PROPHYLAXIS for venous thrombosis, systemic embolization; TREATMENT for venous thrombosis and/or pulmonary embolus.HIGH RISK: Target INR is 2.5-3.5 for patients with mechanical heart valves.[id number] 21:52:33 Test Item Value Reference Range Interpretation Comments FIBRINOGEN LEVEL (BEAKER) (test 269 mg/dl 225-434 code = 658) LACTIC ACID, [id number] 21:48:13 Test Item Value Reference Range Interpretation Comments LACTATE BLOOD VENOUS (2) (BEAKER) 1.69 mmol/L 0.50-2.20 (test code = 2872) Stitcher Hand ID - BSCBC W/PLT COUNT & AUTO [id number] 21:44:37 Test Item Value Reference Range Interpretation Comments WHITE BLOOD CELL COUNT (BEAKER) 12.9 K/ L 3.5-10.5 H (test code = 775) RED BLOOD CELL COUNT (BEAKER) 2.70 M/ L 4.63-6.08 L (test code = 761) HEMOGLOBIN (BEAKER) (test code = 8.6 GM/DL 13.7-17.5 L 410) HEMATOCRIT (BEAKER) (test code = 26.2 % 40.1-51.0 L 411) MEAN CORPUSCULAR VOLUME (BEAKER) 97.0 fL 79.0-92.2 H (test code = 753) MEAN CORPUSCULAR HEMOGLOBIN 31.9 pg 25.7-32.2 (BEAKER) (test code = 751) MEAN CORPUSCULAR HEMOGLOBIN CONC 32.8 GM/DL 32.3-36.5 (BEAKER) (test code = 752) RED CELL DISTRIBUTION WIDTH 17.7 % 11.6-14.4 H (BEAKER) (test code = 412) PLATELET COUNT (BEAKER) (test 119 K/CU MM 150-450 L code = 756) MEAN PLATELET VOLUME (BEAKER) 9.7 fL 9.4-12.4 (test code = 754) NUCLEATED RED BLOOD CELLS 0 /100 WBC 0-0 (BEAKER) (test code = 413) NEUTROPHILS RELATIVE PERCENT 81 % (BEAKER) (test code = 429) LYMPHOCYTES RELATIVE PERCENT 7 % (BEAKER) (test code = 430) MONOCYTES RELATIVE PERCENT 9 % (BEAKER) (test code = 431) EOSINOPHILS RELATIVE PERCENT 1 % (BEAKER) (test code = 432) BASOPHILS RELATIVE PERCENT 0 % (BEAKER) (test code = 437) NEUTROPHILS ABSOLUTE COUNT 10.53 K/ L 1.78-5.38 H (BEAKER) (test code = 670) LYMPHOCYTES ABSOLUTE COUNT 0.93 K/ L 1.32-3.57 L (BEAKER) (test code = 414) MONOCYTES ABSOLUTE COUNT (BEAKER) 1.15 K/ L 0.30-0.82 H (test code = 415) EOSINOPHILS ABSOLUTE COUNT 0.07 K/ L 0.04-0.54 (BEAKER) (test code = 416) BASOPHILS ABSOLUTE COUNT (BEAKER) 0.01 K/ L 0.01-0.08 (test code = 417) IMMATURE GRANULOCYTES-RELATIVE 2 % 0-1 H PERCENT (BEAKER) (test code = 2801) GLUCOSE-STAT [id number] 21:39:27 Test Item Value Reference Range Interpretation Comments GLUCOSE RANDOM (BEAKER) (test code 162 mg/dL 70-110 H = 652) BLOOD GAS, [id number] 21:39:26 Test Item Value Reference Range Interpretation Comments PH ARTERIAL (BEAKER) (test code = 7.43 7.35-7.45 383) PCO2 ARTERIAL (BEAKER) (test code 37 mm Hg 35-45 = 384) PO2 ARTERIAL (BEAKER) (test code 202 mm Hg 80-90 H = 385) O2 SATURATION ARTERIAL (BEAKER) 99.4 % 96.0-97.0 H (test code = 386) HCO3 ARTERIAL (BEAKER) (test code 23 mmol/L 21-29 = 388) BASE EXCESS ARTERIAL (BEAKER) -0.4 mmol/L -2.0-3.0 (test code = 387) PATIENT TEMPERATURE (BEAKER) 38.6 (test code = 1818) FIO2 (BEAKER) (test code = 1819) 50.0 CALCIUM, [id number] 21:39:25 Test Item Value Reference Range Interpretation Comments CALCIUM IONIZED (BEAKER) (test 1.28 mmol/L 1.12-1.27 H code = 698) PH, BLOOD (BEAKER) (test code = 7.45 1810) OXYGEN SATURATION, [id number] 21:39:14 Test Item Value Reference Range Interpretation Comments O2 SATURATION (MEASURED) (BEAKER) 49.5 % (test code = 1455) LACTIC ACID, [id number] 19:12:26 Test Item Value Reference Range Interpretation Comments LACTATE BLOOD VENOUS (2) (BEAKER) 1.23 mmol/L 0.50-2.20 (test code = 2872) Stitcher Hand ID - BSLACTIC ACID, [id number] 18:46:01 Test Item Value Reference Range Interpretation Comments LACTATE BLOOD ARTERIAL (2) 1.7 mmol/L 0.5-2.2 (BEAKER) (test code = 2874) Stitcher Hand ID - BSSpecimen slightly [id number] 18:30:36 Test Item Value Reference Range Interpretation Comments POTASSIUM (BEAKER) (test code = 5.2 meq/L 3.5-5.1 H 379) Stitcher Hand ID - [id number] 18:30:36 Test Item Value Reference Range Interpretation Comments GLUCOSE RANDOM (BEAKER) (test code 159 mg/dL 70-105 H = 652) Stitcher Hand ID - [id number] 18:30:35 Test Item Value Reference Range Interpretation Comments MAGNESIUM (BEAKER) (test code = 2.2 mg/dL 1.6-2.6 627) Stitcher Hand ID - BSHGB/HCT (H&H) - STAT [id number] 18:06:51 Test Item Value Reference Range Interpretation Comments HEMOGLOBIN (BEAKER) (test code = 9.3 GM/DL 13.0-16.8 L 410) HEMATOCRIT (BEAKER) (test code = 27.0 % 40.0-50.0 L 411) GLUCOSE-STAT [id number] 18:06:50 Test Item Value Reference Range Interpretation Comments GLUCOSE RANDOM (BEAKER) (test code 157 mg/dL 70-110 H = 652) SODIUM NA-STAT [id number] 18:06:49 Test Item Value Reference Range Interpretation Comments SODIUM (BEAKER) (test code = 381) 132 meq/L 136-145 L BLOOD GAS, [id number] 18:06:43 Test Item Value Reference Range Interpretation Comments PH ARTERIAL (BEAKER) (test code = 7.41 7.35-7.45 383) PCO2 ARTERIAL (BEAKER) (test code 40 mm Hg 35-45 = 384) PO2 ARTERIAL (BEAKER) (test code = 190 mm Hg 80-90 H 385) O2 SATURATION ARTERIAL (BEAKER) 99.3 % 96.0-97.0 H (test code = 386) HCO3 ARTERIAL (BEAKER) (test code 24 mmol/L 21-29 = 388) BASE EXCESS ARTERIAL (BEAKER) 0.0 mmol/L -2.0-3.0 (test code = 387) PATIENT TEMPERATURE (BEAKER) (test 38.0 code = 1818) FIO2 (BEAKER) (test code = 1819) 50.0 POTASSIUM-STAT [id number] 18:06:37 Test Item Value Reference Range Interpretation Comments POTASSIUM (BEAKER) (test code = 5.0 meq/L 3.6-5.5 379) RAD, CHEST, 1 VIEW, NON [id number] 17:56:00Reason for exam:->ETT manipulationShould this be performed at the bedside?->Yes [facility] 1970 Sex: MFINAL REPORT RAD, CHEST, 1 VIEW, NON DEPT TECHNIQUE: Frontal view(s) of the chest. INDICATION: ETT manipulation COMPARISON: Chest radiograph same day at 1423 hours FINDINGS/IMPRESSION: Lines/Tubes: Endotracheal tube tip approximately 4 cm above the vicki. Left ventricular assist device. [place]y catheter with tip in the right lower lobe pulmonary artery. Multi lead pacemaker/AICD. Me diastinal drain Lungs/pleura: Unchanged left basilar pleural-parenchymal opacity. Unchanged small right pleural effusion. No pneumothorax. Heart and Mediastinum: Unchanged. Soft Tissues and Bones: Unchanged. Signed: Theo Mcconnell Verified Date/Time: 09/09/2021 17:56:10 Reading Location: [address] Transitional Reading Room LACTIC ACID, [id number] 17:23:02 Test Item Value Reference Range Interpretation Comments LACTATE BLOOD 1.8 mmol/L 0.5-2.2 Specimen sligh tly ARTERIAL (2) (BEAKER) hemoly zed (test code = 2874) Stitcher Hand ID - BSSpecimen slightly [id number] 16:45:54 Test Item Value Reference Range Interpretation Comments POTASSIUM (BEAKER) (test code = 5.0 meq/L 3.5-5.1 379) Stitcher Hand ID - [id number] 16:45:54 Test Item Value Reference Range Interpretation Comments GLUCOSE RANDOM (BEAKER) (test code 110 mg/dL 70-105 H = 652) Stitcher Hand ID - [id number] 16:45:53 Test Item Value Reference Range Interpretation Comments MAGNESIUM (BEAKER) (test code = 2.2 mg/dL 1.6-2.6 627) Stitcher Hand ID - BSCALCIUM, [id number] 16:08:47 Test Item Value Reference Range Interpretation Comments CALCIUM IONIZED (BEAKER) (test 1.31 mmol/L 1.12-1.27 H code = 698) PH, BLOOD (BEAKER) (test code = 7.41 1810) HGB/HCT (H&H) - STAT [id number] 16:08:43 Test Item Value Reference Range Interpretation Comments HEMOGLOBIN (BEAKER) (test code = 10.2 GM/DL 13.0-16.8 L 410) HEMATOCRIT (BEAKER) (test code = 30.0 % 40.0-50.0 L 411) GLUCOSE-STAT [id number] 16:08:42 Test Item Value Reference Range Interpretation Comments GLUCOSE RANDOM (BEAKER) (test code 112 mg/dL 70-110 H = 652) SODIUM NA-STAT [id number] 16:08:41 Test Item Value Reference Range Interpretation Comments SODIUM (BEAKER) (test code = 381) 133 meq/L 136-145 L BLOOD GAS, [id number] 16:08:40 Test Item Value Reference Range Interpretation Comments PH ARTERIAL (BEAKER) (test code = 7.40 7.35-7.45 383) PCO2 ARTERIAL (BEAKER) (test code 37 mm Hg 35-45 = 384) PO2 ARTERIAL (BEAKER) (test code 169 mm Hg 80-90 H = 385) O2 SATURATION ARTERIAL (BEAKER) 99.1 % 96.0-97.0 H (test code = 386) HCO3 ARTERIAL (BEAKER) (test code 22 mmol/L 21-29 = 388) BASE EXCESS ARTERIAL (BEAKER) -2.1 mmol/L -2.0-3.0 L (test code = 387) PATIENT TEMPERATURE (BEAKER) 37.6 (test code = 1818) FIO2 (BEAKER) (test code = 1819) 50.0 POTASSIUM-STAT [id number] 16:08:03 Test Item Value Reference Range Interpretation Comments POTASSIUM (BEAKER) (test code = 4.8 meq/L 3.6-5.5 379) RAD, CHEST, 1 VIEW, NON [id number] 14:53:00Reason for exam:->s/p LVADShould this be performed at the bedside?->Yes [facility] 1970 Sex: MFINAL REPORT RAD, CHEST, 1 VIEW, NON DEPT INDICATION: s/p LVAD COMPARISON: 13 hours prior FINDINGS: Portable frontal view of the chest. IMPRESSION: Support Lines: Endotracheal tube terminates six 7 m above the vicki. At least one surgical drain is present. Left IJ central venous catheter terminates over the superior vena cava. Pacer apparatus is stable. Lungs and pleura: No new consolidation. No pneumothorax.Heart and mediastinum: Stable contours. Sternotomy wires are intact. Left ventricular assist device has been placed.Additional findings: None. Signed: JR Dumont Robert MDReport Verified Date/Time: 09/09/2021 14:53:15 Reading Location: [facility] Radiology Reading Room (CELLAVISION MANUAL DIFF)2021-09-09 14:40:25 Test Item Value Reference Range Interpretation Comments NEUTROPHILS - REL 88 % (CELLAVISION)(BEAKER) (test code = 2816) LYMPHOCYTES - REL 4 % (CELLAVISION)(BEAKER) (test code = 2817) MONOCYTES - REL 1 % (CELLAVISION)(BEAKER) (test code = 2818) BANDS - REL (CELLAVISION)(BEAKER) 7 % 0-10 (test code = 2826) NEUTROPHILS - ABS 24.29 K/ul 1.78-5.38 H (CELLAVISION)(BEAKER) (test code = 2830) LYMPHOCYTES - ABS 1.10 K/ul 1.32-3.57 L (CELLAVISION)(BEAKER) (test code = 2831) MONOCYTES - ABS 0.28 K/uL 0.30-0.82 L (CELLAVISION)(BEAKER) (test code = 2832) BANDS - ABS (CELLAVISION)(BEAKER) 1.93 K/uL 0.00-0.80 H (test code = 2840) TOTAL COUNTED (BEAKER) (test code 100 = 1351) WBC MORPHOLOGY (BEAKER) (test Normal code = 487) PLT MORPHOLOGY (BEAKER) (test Normal code = 486) POLYCHROMATOPHILLIC RBCS(BEAKER) 1+ few (test code = 478) ANISOCYTOSIS (BEAKER) (test code 2+ moderate = 961) MICROCYTES (BEAKER) (test code = 2+ moderate 965) POIKILOCYTES (BEAKER) (test code 1+ few = 966) ELLIPTOCYTES (BEAKER) (test code 1+ few = 962) OVALOCYTES (BEAKER) (test code = 1+ few 477) ARTIFACT (CELLAVISION)(BEAKER) Present (test code = 3432) HELMET CELLS 1+ few (CELLAVISION)(BEAKER) (test code = 3434) PLATELET CONCENTRATION Decreased (CELLAVISION)(BEAKER) (test code = 3438) Stitcher Hand ID - Delicia Jones comments: Slide comments:CBC W/PLT COUNT & AUTO [id number] 14:40:23 Test Item Value Reference Range Interpretation Comments WHITE BLOOD CELL COUNT (BEAKER) 27.6 K/ L 3.5-10.5 H (test code = 775) RED BLOOD CELL COUNT (BEAKER) 2.63 M/ L 4.63-6.08 L (test code = 761) HEMOGLOBIN (BEAKER) (test code = 8.5 GM/DL 13.7-17.5 L 410) HEMATOCRIT (BEAKER) (test code = 25.9 % 40.1-51.0 L 411) MEAN CORPUSCULAR VOLUME (BEAKER) 98.5 fL 79.0-92.2 H (test code = 753) MEAN CORPUSCULAR HEMOGLOBIN 32.3 pg 25.7-32.2 H (BEAKER) (test code = 751) MEAN CORPUSCULAR HEMOGLOBIN CONC 32.8 GM/DL 32.3-36.5 (BEAKER) (test code = 752) RED CELL DISTRIBUTION WIDTH 17.5 % 11.6-14.4 H (BEAKER) (test code = 412) PLATELET COUNT (BEAKER) (test 149 K/CU MM 150-450 L code = 756) MEAN PLATELET VOLUME (BEAKER) 9.3 fL 9.4-12.4 L (test code = 754) NUCLEATED RED BLOOD CELLS 0 /100 WBC 0-0 (BEAKER) (test code = 413) LACTIC ACID, [id number] 14:37:39 Test Item Value Reference Range Interpretation Comments LACTATE BLOOD ARTERIAL (2) 2.9 mmol/L 0.5-2.2 H (BEAKER) (test code = 2874) Stitcher Hand ID - EMMANUEL FBLOOD GAS, [id number] 14:30:59 Test Item Value Reference Range Interpretation Comments PH ARTERIAL (BEAKER) (test code = 7.32 7.35-7.45 L 383) PCO2 ARTERIAL (BEAKER) (test code 45 mm Hg 35-45 = 384) PO2 ARTERIAL (BEAKER) (test code 190 mm Hg 80-90 H = 385) O2 SATURATION ARTERIAL (BEAKER) 99.2 % 96.0-97.0 H (test code = 386) HCO3 ARTERIAL (BEAKER) (test code 23 mmol/L 21-29 = 388) BASE EXCESS ARTERIAL (BEAKER) -3.3 mmol/L -2.0-3.0 L (test code = 387) PATIENT TEMPERATURE (BEAKER) 37.3 (test code = 1818) FIO2 (BEAKER) (test code = 1819) 60.0 HEMOGLOBIN AND [id number] 14:30:17 Test Item Value Reference Range Interpretation Comments HEMOGLOBIN (BEAKER) (test code = 8.6 GM/DL 13.7-17.5 L 410) HEMATOCRIT (BEAKER) (test code = 26.4 % 40.1-51.0 L 411) Stitcher Hand ID - 6000COMPREHENSIVE METABOLIC [id number] 13:44:35 Test Item Value Reference Range Interpretation Comments TOTAL PROTEIN 5.1 gm/dL 6.0-8.3 L (BEAKER) (test code = 770) ALBUMIN (BEAKER) 3.2 g/dL 3.5-5.0 L (test code = 1145) ALKALINE PHOSPHATASE 68 U/L 40-150 (BEAKER) (test code = 346) BILIRUBIN TOTAL 2.3 mg/dL 0.2-1.2 H (BEAKER) (test code = 377) SODIUM (BEAKER) (test 135 meq/L 136-145 L code = 381) POTASSIUM (BEAKER) 4.2 meq/L 3.5-5.1 (test code = 379) CHLORIDE (BEAKER) 104 meq/L 98-107 (test code = 382) CO2 (BEAKER) (test 23 meq/L 22-29 code = 355) BLOOD UREA NITROGEN 23 mg/dL 7-21 H (BEAKER) (test code = 354) CREATININE (BEAKER) 0.91 mg/dL 0.57-1.25 (test code = 358) GLUCOSE RANDOM 235 mg/dL 70-105 H (BEAKER) (test code = 652) CALCIUM (BEAKER) 11.1 mg/dL 8.4-10.2 H (test code = 697) AST (SGOT) (BEAKER) 40 U/L 5-34 H (test code = 353) ALT (SGPT) (BEAKER) 19 U/L 6-55 (test code = 347) EGFR (BEAKER) (test 88 mL/min/1.73 ESTIMA NEELA GFR IS code = 1092) sq m NOT ACCURATE CREATININE CLEARANCE IN PREDICTING GLOMERULAR FILTRATION RATE . ESTIMATED GFR I S NOT APPLICABLE FOR DIALYSIS PATIEN TS. Stitcher Hand ID Sal BENITEZ FLACTATE DEHYDROGENASE (LDH)2021-09-09 13:44:21 Test Item Value Reference Range Interpretation Comments LACTATE DEHYDROGENASE (BEAKER) (test 509 U/L 125-220 H code = 635) Stitcher Hand ID Sal BENITEZ [id number] 13:44:20 Test Item Value Reference Range Interpretation Comments PHOSPHORUS (BEAKER) (test code = 6.5 mg/dL 2.3-4.7 H 604) Stitcher Hand ID - EMMANUEL [id number] 13:44:19 Test Item Value Reference Range Interpretation Comments MAGNESIUM (BEAKER) (test code = 2.1 mg/dL 1.6-2.6 627) Stitcher Hand ID - EMMANUEL [id number] 13:28:14 Test Item Value Reference Range Interpretation Comments PARTIAL THROMBOPLASTIN TIME 33.2 seconds 22.5-36.0 (BEAKER) (test code = 760) PROTHROMBIN TIME/[id number] 13:27:33 Test Item Value Reference Range Interpretation Comments PROTIME (BEAKER) 16.7 seconds 11.9-14.2 H (test code = 759) INR (BEAKER) (test 1.37 See_Comment [Automat ed message] code = 370) The system g4interactive generated this result transmitted ref erence range: <=5.90. The reference range was not used to int erpret this result as normal/abnormal . RECOMMENDED COUMADIN/WARFARIN INR THERAPY RANGESSTANDARD DOSE: 2.0 - 3.0 Includes: PROPHYLAXIS for venous thrombosis, systemic embolization; TREATMENT for venous thrombosis and/or pulmonary embolus.HIGH RISK: Target INR is 2.5-3.5 for patients with mechanical heart valves.[id number] 13:26:12 Test Item Value Reference Range Interpretation Comments PARTIAL THROMBOPLASTIN TIME 34.0 seconds 22.5-36.0 (BEAKER) (test code = 760) LACTIC ACID, [id number] 13:23:57 Test Item Value Reference Range Interpretation Comments LACTATE BLOOD ARTERIAL (2) 2.8 mmol/L 0.5-2.2 H (BEAKER) (test code = 2874) Stitcher Hand ID - EMMANUEL FOXYGEN SATURATION, [id number] 13:13:10 Test Item Value Reference Range Interpretation Comments O2 SATURATION (MEASURED) (BEAKER) 74.0 % (test code = 1455) CALCIUM, [id number] 13:11:10 Test Item Value Reference Range Interpretation Comments CALCIUM IONIZED (BEAKER) (test 1.47 mmol/L 1.12-1.27 H code = 698) PH, BLOOD (BEAKER) (test code = 7.26 1810) GLUCOSE-STAT [id number] 13:11:08 Test Item Value Reference Range Interpretation Comments GLUCOSE RANDOM (BEAKER) (test code 225 mg/dL 70-110 H = 652) HGB/HCT (H&H) - STAT [id number] 13:11:08 Test Item Value Reference Range Interpretation Comments HEMOGLOBIN (BEAKER) (test code = 9.4 GM/DL 13.0-16.8 L 410) HEMATOCRIT (BEAKER) (test code = 28.0 % 40.0-50.0 L 411) SODIUM NA-STAT [id number] 13:11:07 Test Item Value Reference Range Interpretation Comments SODIUM (BEAKER) (test code = 381) 132 meq/L 136-145 L BLOOD GAS, [id number] 13:11:06 Test Item Value Reference Range Interpretation Comments PH ARTERIAL (BEAKER) (test code = 7.26 7.35-7.45 L 383) PCO2 ARTERIAL (BEAKER) (test code 55 mm Hg 35-45 H = 384) PO2 ARTERIAL (BEAKER) (test code 270 mm Hg 80-90 H = 385) O2 SATURATION ARTERIAL (BEAKER) 99.5 % 96.0-97.0 H (test code = 386) HCO3 ARTERIAL (BEAKER) (test code 24 mmol/L 21-29 = 388) BASE EXCESS ARTERIAL (BEAKER) -3.4 mmol/L -2.0-3.0 L (test code = 387) PATIENT TEMPERATURE (BEAKER) 37.1 (test code = 1818) FIO2 (BEAKER) (test code = 1819) 100.0 POTASSIUM-STAT [id number] 13:10:28 Test Item Value Reference Range Interpretation Comments POTASSIUM (BEAKER) (test code = 3.9 meq/L 3.6-5.5 379) HGB/HCT (H&H) - STAT [id number] 11:24:31 Test Item Value Reference Range Interpretation Comments HEMOGLOBIN (BEAKER) (test code = 8.0 GM/DL 13.0-16.8 L 410) HEMATOCRIT (BEAKER) (test code = 24.0 % 40.0-50.0 L 411) SODIUM NA-STAT [id number] 11:24:30 Test Item Value Reference Range Interpretation Comments SODIUM (BEAKER) (test code = 381) 129 meq/L 136-145 L GLUCOSE-STAT [id number] 11:24:30 Test Item Value Reference Range Interpretation Comments GLUCOSE RANDOM (BEAKER) (test code 271 mg/dL 70-110 H = 652) BLOOD GAS, [id number] 11:24:29 Test Item Value Reference Range Interpretation Comments PH ARTERIAL (BEAKER) (test code = 7.39 7.35-7.45 383) PCO2 ARTERIAL (BEAKER) (test code 39 mm Hg 35-45 = 384) PO2 ARTERIAL (BEAKER) (test code 380 mm Hg 80-90 H = 385) O2 SATURATION ARTERIAL (BEAKER) 99.8 % 96.0-97.0 H (test code = 386) HCO3 ARTERIAL (BEAKER) (test code 23 mmol/L 21-29 = 388) BASE EXCESS ARTERIAL (BEAKER) -1.6 mmol/L -2.0-3.0 (test code = 387) PATIENT TEMPERATURE (BEAKER) 36.0 (test code = 1818) FIO2 (BEAKER) (test code = 1819) 92.0 CALCIUM, [id number] 11:24:28 Test Item Value Reference Range Interpretation Comments CALCIUM IONIZED (BEAKER) (test 1.31 mmol/L 1.12-1.27 H code = 698) PH, BLOOD (BEAKER) (test code = 7.38 1810) POTASSIUM-STAT [id number] 11:22:58 Test Item Value Reference Range Interpretation Comments POTASSIUM (BEAKER) (test code = 4.5 meq/L 3.6-5.5 379) BLOOD GAS, [id number] 10:34:34 Test Item Value Reference Range Interpretation Comments PH ARTERIAL (BEAKER) (test code = 7.36 7.35-7.45 383) PCO2 ARTERIAL (BEAKER) (test code 44 mm Hg 35-45 = 384) PO2 ARTERIAL (BEAKER) (test code 286 mm Hg 80-90 H = 385) O2 SATURATION ARTERIAL (BEAKER) 99.6 % 96.0-97.0 H (test code = 386) HCO3 ARTERIAL (BEAKER) (test code 25 mmol/L 21-29 = 388) BASE EXCESS ARTERIAL (BEAKER) -1.1 mmol/L -2.0-3.0 (test code = 387) PATIENT TEMPERATURE (BEAKER) 36.7 (test code = 1818) FIO2 (BEAKER) (test code = 1819) 80.0 GLUCOSE-STAT [id number] 10:34:33 Test Item Value Reference Range Interpretation Comments GLUCOSE RANDOM (BEAKER) (test code 192 mg/dL 70-110 H = 652) SODIUM NA-STAT [id number] 10:34:32 Test Item Value Reference Range Interpretation Comments SODIUM (BEAKER) (test code = 381) 129 meq/L 136-145 L HGB/HCT (H&H) - STAT [id number] 10:34:25 Test Item Value Reference Range Interpretation Comments HEMOGLOBIN (BEAKER) (test code = 8.5 GM/DL 13.0-16.8 L 410) HEMATOCRIT (BEAKER) (test code = 25.0 % 40.0-50.0 L 411) POTASSIUM-STAT [id number] 10:34:19 Test Item Value Reference Range Interpretation Comments POTASSIUM (BEAKER) (test code = 5.0 meq/L 3.6-5.5 379) LACTIC ACID, [id number] 10:31:55 Test Item Value Reference Range Interpretation Comments LACTATE BLOOD ARTERIAL (2) 1.7 mmol/L 0.5-2.2 (BEAKER) (test code = 2874) Stitcher Hand ID - EMMANUEL FSODIUM NA-STAT [id number] 10:11:05 Test Item Value Reference Range Interpretation Comments SODIUM (BEAKER) (test code = 381) 129 meq/L 136-145 L GLUCOSE-STAT [id number] 10:10:59 Test Item Value Reference Range Interpretation Comments GLUCOSE RANDOM (BEAKER) (test code 159 mg/dL 70-110 H = 652) HGB/HCT (H&H) - STAT [id number] 10:10:59 Test Item Value Reference Range Interpretation Comments HEMOGLOBIN (BEAKER) (test code = 7.5 GM/DL 13.0-16.8 L 410) HEMATOCRIT (BEAKER) (test code = 22.0 % 40.0-50.0 L 411) BLOOD GAS, [id number] 10:10:53 Test Item Value Reference Range Interpretation Comments PH ARTERIAL (BEAKER) (test code = 7.39 7.35-7.45 383) PCO2 ARTERIAL (BEAKER) (test code 43 mm Hg 35-45 = 384) PO2 ARTERIAL (BEAKER) (test code = 311 mm Hg 80-90 H 385) O2 SATURATION ARTERIAL (BEAKER) 99.7 % 96.0-97.0 H (test code = 386) HCO3 ARTERIAL (BEAKER) (test code 26 mmol/L 21-29 = 388) BASE EXCESS ARTERIAL (BEAKER) 0.4 mmol/L -2.0-3.0 (test code = 387) PATIENT TEMPERATURE (BEAKER) (test 36.7 code = 1818) FIO2 (BEAKER) (test code = 1819) 80.0 POTASSIUM-STAT [id number] 10:10:06 Test Item Value Reference Range Interpretation Comments POTASSIUM (BEAKER) (test code = 4.5 meq/L 3.6-5.5 379) GLUCOSE-STAT [id number] 09:52:19 Test Item Value Reference Range Interpretation Comments GLUCOSE RANDOM (BEAKER) (test code 149 mg/dL 70-110 H = 652) HGB/HCT (H&H) - STAT [id number] 09:52:19 Test Item Value Reference Range Interpretation Comments HEMOGLOBIN (BEAKER) (test code = 7.0 GM/DL 13.0-16.8 L 410) HEMATOCRIT (BEAKER) (test code = 21.0 % 40.0-50.0 L 411) SODIUM NA-STAT [id number] 09:52:18 Test Item Value Reference Range Interpretation Comments SODIUM (BEAKER) (test code = 381) 129 meq/L 136-145 L BLOOD GAS, [id number] 09:52:17 Test Item Value Reference Range Interpretation Comments PH ARTERIAL (BEAKER) (test code = 7.43 7.35-7.45 383) PCO2 ARTERIAL (BEAKER) (test code 35 mm Hg 35-45 = 384) PO2 ARTERIAL (BEAKER) (test code 386 mm Hg 80-90 H = 385) O2 SATURATION ARTERIAL (BEAKER) 99.8 % 96.0-97.0 H (test code = 386) HCO3 ARTERIAL (BEAKER) (test code 23 mmol/L 21-29 = 388) BASE EXCESS ARTERIAL (BEAKER) -1.7 mmol/L -2.0-3.0 (test code = 387) PATIENT TEMPERATURE (BEAKER) 36.0 (test code = 1818) FIO2 (BEAKER) (test code = 1819) 80.0 POTASSIUM-STAT [id number] 09:52:01 Test Item Value Reference Range Interpretation Comments POTASSIUM (BEAKER) (test code = 3.9 meq/L 3.6-5.5 379) BLOOD GAS, [id number] 09:51:18 Test Item Value Reference Range Interpretation Comments PH VENOUS (BEAKER) (test code = 7.38 7.32-7.42 701) PCO2 VENOUS (BEAKER) (test code = 44 mm Hg 41-51 755) PO2 VENOUS (BEAKER) (test code = 65 mm Hg 25-40 H 702) O2 SATURATION VENOUS (BEAKER) 93.2 % 40.0-70.0 H (test code = 703) HCO3 VENOUS (BEAKER) (test code = 26 mmol/L 21-29 705) BASE EXCESS VENOUS (BEAKER) (test 0.2 mmol/L -2.0-3.0 code = 704) PATIENT TEMPERATURE (BEAKER) (test 36.0 code = 1818) FIO2 (BEAKER) (test code = 1819) 80.0 CALCIUM, [id number] 09:45:23 Test Item Value Reference Range Interpretation Comments CALCIUM IONIZED (BEAKER) (test 1.29 mmol/L 1.12-1.27 H code = 698) PH, BLOOD (BEAKER) (test code = 7.35 1810) HGB/HCT (H&H) - STAT [id number] 09:44:54 Test Item Value Reference Range Interpretation Comments HEMOGLOBIN (BEAKER) (test code = 11.1 GM/DL 13.0-16.8 L 410) HEMATOCRIT (BEAKER) (test code = 33.0 % 40.0-50.0 L 411) GLUCOSE-STAT [id number] 09:44:53 Test Item Value Reference Range Interpretation Comments GLUCOSE RANDOM (BEAKER) (test code 160 mg/dL 70-110 H = 652) SODIUM NA-STAT [id number] 09:44:52 Test Item Value Reference Range Interpretation Comments SODIUM (BEAKER) (test code = 381) 128 meq/L 136-145 L BLOOD GAS, [id number] 09:44:51 Test Item Value Reference Range Interpretation Comments PH ARTERIAL (BEAKER) (test code = 7.37 7.35-7.45 383) PCO2 ARTERIAL (BEAKER) (test code 44 mm Hg 35-45 = 384) PO2 ARTERIAL (BEAKER) (test code 176 mm Hg 80-90 H = 385) O2 SATURATION ARTERIAL (BEAKER) 99.2 % 96.0-97.0 H (test code = 386) HCO3 ARTERIAL (BEAKER) (test code 25 mmol/L 21-29 = 388) BASE EXCESS ARTERIAL (BEAKER) -0.9 mmol/L -2.0-3.0 (test code = 387) PATIENT TEMPERATURE (BEAKER) 35.8 (test code = 1818) FIO2 (BEAKER) (test code = 1819) 77.0 POTASSIUM-STAT [id number] 09:42:36 Test Item Value Reference Range Interpretation Comments POTASSIUM (BEAKER) (test code = 4.0 meq/L 3.6-5.5 379) CALCIUM, [id number] 08:44:40 Test Item Value Reference Range Interpretation Comments CALCIUM IONIZED (BEAKER) (test 1.11 mmol/L 1.12-1.27 L code = 698) PH, BLOOD (BEAKER) (test code = 7.48 1810) GLUCOSE-STAT [id number] 08:44:21 Test Item Value Reference Range Interpretation Comments GLUCOSE RANDOM (BEAKER) (test code 161 mg/dL 70-110 H = 652) HGB/HCT (H&H) - STAT [id number] 08:44:21 Test Item Value Reference Range Interpretation Comments HEMOGLOBIN (BEAKER) (test code = 10.7 GM/DL 13.0-16.8 L 410) HEMATOCRIT (BEAKER) (test code = 31.0 % 40.0-50.0 L 411) SODIUM NA-STAT [id number] 08:44:20 Test Item Value Reference Range Interpretation Comments SODIUM (BEAKER) (test code = 381) 131 meq/L 136-145 L BLOOD GAS, [id number] 08:44:19 Test Item Value Reference Range Interpretation Comments PH ARTERIAL (BEAKER) (test code = 7.48 7.35-7.45 H 383) PCO2 ARTERIAL (BEAKER) (test code 30 mm Hg 35-45 L = 384) PO2 ARTERIAL (BEAKER) (test code 255 mm Hg 80-90 H = 385) O2 SATURATION ARTERIAL (BEAKER) 99.6 % 96.0-97.0 H (test code = 386) HCO3 ARTERIAL (BEAKER) (test code 22 mmol/L 21-29 = 388) BASE EXCESS ARTERIAL (BEAKER) -1.0 mmol/L -2.0-3.0 (test code = 387) PATIENT TEMPERATURE (BEAKER) 36.0 (test code = 1818) FIO2 (BEAKER) (test code = 1819) 100.0 POTASSIUM-STAT [id number] 08:43:19 Test Item Value Reference Range Interpretation Comments POTASSIUM (BEAKER) (test code = 3.9 meq/L 3.6-5.5 379) [id number] 06:13:55 Test Item Value Reference Range Interpretation Comments PARTIAL THROMBOPLASTIN TIME 57.4 seconds 22.5-36.0 H (BEAKER) (test code = 760) LACTATE DEHYDROGENASE (LDH)2021-09-09 04:28:26 Test Item Value Reference Range Interpretation Comments LACTATE DEHYDROGENASE (BEAKER) (test 401 U/L 125-220 H code = 635) Stitcher Hand ID - SO [id number] 04:28:25 Test Item Value Reference Range Interpretation Comments PHOSPHORUS (BEAKER) (test code = 4.6 mg/dL 2.3-4.7 604) Stitcher Hand ID - SO [id number] 04:28:24 Test Item Value Reference Range Interpretation Comments MAGNESIUM (BEAKER) (test code = 2.4 mg/dL 1.6-2.6 627) Stitcher Hand ID - SO MBASIC METABOLIC [id number] 04:28:23 Test Item Value Reference Range Interpretation Comments SODIUM (BEAKER) 132 meq/L 136-145 L (test code = 381) POTASSIUM (BEAKER) 4.4 meq/L 3.5-5.1 (test code = 379) CHLORIDE (BEAKER) 97 meq/L 98-107 L (test code = 382) CO2 (BEAKER) (test 23 meq/L 22-29 code = 355) BLOOD UREA NITROGEN 24 mg/dL 7-21 H (BEAKER) (test code = 354) CREATININE (BEAKER) 1.10 mg/dL 0.57-1.25 (test code = 358) GLUCOSE RANDOM 158 mg/dL 70-105 H (BEAKER) (test code = 652) CALCIUM (BEAKER) 10.0 mg/dL 8.4-10.2 (test code = 697) EGFR (BEAKER) (test 71 mL/min/1.73 ESTIMA NEELA GFR IS code = 1092) sq m NOT ACCURATE CREATININE CLEARANCE IN PREDICTING GLOMERULAR FILTRATION RATE . ESTIMATED GFR I S NOT APPLICABLE FOR DIALYSIS PATIEN TS. Stitcher Hand ID - SO [id number] 04:24:59 Test Item Value Reference Range Interpretation Comments FIBRINOGEN LEVEL (BEAKER) (test 262 mg/dl 225-434 code = 658) PROTHROMBIN TIME/[id number] 04:24:42 Test Item Value Reference Range Interpretation Comments PROTIME (BEAKER) 15.2 seconds 11.9-14.2 H (test code = 759) INR (BEAKER) (test 1.21 See_Comment [Automat ed message] code = 370) The system g4interactive generated this result transmitted ref erence range: <=5.90. The reference range was not used to int erpret this result as normal/abnormal . RECOMMENDED COUMADIN/WARFARIN INR THERAPY RANGESSTANDARD DOSE: 2.0 - 3.0 Includes: PROPHYLAXIS for venous thrombosis, systemic embolization; TREATMENT for venous thrombosis and/or pulmonary embolus.HIGH RISK: Target INR is 2.5-3.5 for patients with mechanical heart valves.CBC W/PLT COUNT & AUTO [id number] 04:19:21 Test Item Value Reference Range Interpretation Comments WHITE BLOOD CELL COUNT (BEAKER) 18.7 K/ L 3.5-10.5 H (test code = 775) RED BLOOD CELL COUNT (BEAKER) 3.45 M/ L 4.63-6.08 L (test code = 761) HEMOGLOBIN (BEAKER) (test code = 11.5 GM/DL 13.7-17.5 L 410) HEMATOCRIT (BEAKER) (test code = 33.5 % 40.1-51.0 L 411) MEAN CORPUSCULAR VOLUME (BEAKER) 97.1 fL 79.0-92.2 H (test code = 753) MEAN CORPUSCULAR HEMOGLOBIN 33.3 pg 25.7-32.2 H (BEAKER) (test code = 751) MEAN CORPUSCULAR HEMOGLOBIN CONC 34.3 GM/DL 32.3-36.5 (BEAKER) (test code = 752) RED CELL DISTRIBUTION WIDTH 16.3 % 11.6-14.4 H (BEAKER) (test code = 412) PLATELET COUNT (BEAKER) (test 116 K/CU MM 150-450 L code = 756) MEAN PLATELET VOLUME (BEAKER) 9.3 fL 9.4-12.4 L (test code = 754) NUCLEATED RED BLOOD CELLS 0 /100 WBC 0-0 (BEAKER) (test code = 413) NEUTROPHILS RELATIVE PERCENT 93 % (BEAKER) (test code = 429) LYMPHOCYTES RELATIVE PERCENT 3 % (BEAKER) (test code = 430) MONOCYTES RELATIVE PERCENT 3 % (BEAKER) (test code = 431) EOSINOPHILS RELATIVE PERCENT 0 % (BEAKER) (test code = 432) BASOPHILS RELATIVE PERCENT 0 % (BEAKER) (test code = 437) NEUTROPHILS ABSOLUTE COUNT 17.43 K/ L 1.78-5.38 H (BEAKER) (test code = 670) LYMPHOCYTES ABSOLUTE COUNT 0.59 K/ L 1.32-3.57 L (BEAKER) (test code = 414) MONOCYTES ABSOLUTE COUNT (BEAKER) 0.46 K/ L 0.30-0.82 (test code = 415) EOSINOPHILS ABSOLUTE COUNT 0.00 K/ L 0.04-0.54 L (BEAKER) (test code = 416) BASOPHILS ABSOLUTE COUNT (BEAKER) 0.02 K/ L 0.01-0.08 (test code = 417) IMMATURE GRANULOCYTES-RELATIVE 1 % 0-1 PERCENT (BEAKER) (test code = 2801) LACTIC ACID, [id number] 04:17:45 Test Item Value Reference Range Interpretation Comments LACTATE BLOOD ARTERIAL (2) 1.0 mmol/L 0.5-2.2 (BEAKER) (test code = 2874) Stitcher Hand ID - SO SELLERSXYGEN SATURATION, [id number] 03:59:11 Test Item Value Reference Range Interpretation Comments O2 SATURATION (MEASURED) (BEAKER) 75.4 % (test code = 1455) BLOOD GAS, [id number] 03:56:57 Test Item Value Reference Range Interpretation Comments PH ARTERIAL (BEAKER) (test code = 7.45 7.35-7.45 383) PCO2 ARTERIAL (BEAKER) (test code 37 mm Hg 35-45 = 384) PO2 ARTERIAL (BEAKER) (test code = 105 mm Hg 80-90 H 385) O2 SATURATION ARTERIAL (BEAKER) 98.1 % 96.0-97.0 H (test code = 386) HCO3 ARTERIAL (BEAKER) (test code 25 mmol/L 21-29 = 388) BASE EXCESS ARTERIAL (BEAKER) 1.2 mmol/L -2.0-3.0 (test code = 387) PATIENT TEMPERATURE (BEAKER) (test 36.6 code = 1818) FIO2 (BEAKER) (test code = 1819) 36.0 RAD, CHEST, 1 VIEW, NON [id number] 01:46:00Reason for exam:->s/p ECMOShould this be performed at the bedside?->Yes [facility]ame[facility] GONZÁLEZ DANAAbimael MELENDEZ : 1970 Sex: MFINAL REPORT EXAM/TECHNIQUE: Single view frontal radiograph of the chest. INDICATION: ECMO COMPARISON: 09/08/2021 FINDINGS: Devices/Objects: Unchanged left internal jugular central venous catheter and [employer]. Lungs: No new focal consolidation or pleural fluid accumulation. Heart/Mediastinum: Similar cardiomegaly. Osseous: No acute osseous process. No suspicious osseous lesion. Upper abdomen: Unremarkable. Impression: No new cardiopulmonary process. Signed: Ulysses Miller MDReport Verified Date/Time: 09/09/2021 01:46:36 [id number] 21:54:56 Test Item Value Reference Range Interpretation Comments MAGNESIUM (BEAKER) (test code = 2.0 mg/dL 1.6-2.6 627) Stitcher Hand ID - DBBASIC METABOLIC [id number] 21:54:55 Test Item Value Reference Range Interpretation Comments SODIUM (BEAKER) 135 meq/L 136-145 L (test code = 381) POTASSIUM (BEAKER) 4.2 meq/L 3.5-5.1 (test code = 379) CHLORIDE (BEAKER) 99 meq/L 98-107 (test code = 382) CO2 (BEAKER) (test 23 meq/L 22-29 code = 355) BLOOD UREA NITROGEN 24 mg/dL 7-21 H (BEAKER) (test code = 354) CREATININE (BEAKER) 1.17 mg/dL 0.57-1.25 (test code = 358) GLUCOSE RANDOM 184 mg/dL 70-105 H (BEAKER) (test code = 652) CALCIUM (BEAKER) 10.1 mg/dL 8.4-10.2 (test code = 697) EGFR (BEAKER) (test 66 mL/min/1.73 ESTIMA NEELA GFR IS code = 1092) sq m NOT ACCURATE CREATININE CLEARANCE IN PREDICTING GLOMERULAR FILTRATION RATE . ESTIMATED GFR I S NOT APPLICABLE FOR DIALYSIS PATIEN TS. Stitcher Hand ID - DBBLOOD GAS, [id number] 21:52:08 Test Item Value Reference Range Interpretation Comments PH ARTERIAL (BEAKER) (test code = 7.43 7.35-7.45 383) PCO2 ARTERIAL (BEAKER) (test code 38 mm Hg 35-45 = 384) PO2 ARTERIAL (BEAKER) (test code = 571 mm Hg 80-90 H 385) O2 SATURATION ARTERIAL (BEAKER) 99.9 % 96.0-97.0 H (test code = 386) HCO3 ARTERIAL (BEAKER) (test code 25 mmol/L 21-29 = 388) BASE EXCESS ARTERIAL (BEAKER) 0.5 mmol/L -2.0-3.0 (test code = 387) PATIENT TEMPERATURE (BEAKER) (test 36.7 code = 1818) FIO2 (BEAKER) (test code = 1819) 100.0 LACTIC ACID, [id number] 21:28:50 Test Item Value Reference Range Interpretation Comments LACTATE BLOOD ARTERIAL (2) 1.8 mmol/L 0.5-2.2 (BEAKER) (test code = 2874) Stitcher Hand ID - [id number] 21:28:08 Test Item Value Reference Range Interpretation Comments PARTIAL THROMBOPLASTIN TIME 38.9 seconds 22.5-36.0 H (BEAKER) (test code = 760) BLOOD GAS, [id number] 21:15:35 Test Item Value Reference Range Interpretation Comments PH ARTERIAL (BEAKER) (test code = 7.46 7.35-7.45 H 383) PCO2 ARTERIAL (BEAKER) (test code 36 mm Hg 35-45 = 384) PO2 ARTERIAL (BEAKER) (test code = 68 mm Hg 80-90 L 385) O2 SATURATION ARTERIAL (BEAKER) 94.6 % 96.0-97.0 L (test code = 386) HCO3 ARTERIAL (BEAKER) (test code 25 mmol/L 21-29 = 388) BASE EXCESS ARTERIAL (BEAKER) 1.2 mmol/L -2.0-3.0 (test code = 387) PATIENT TEMPERATURE (BEAKER) (test 36.8 code = 1818) FIO2 (BEAKER) (test code = 1819) 21.0 [id number] 17:45:03 Test Item Value Reference Range Interpretation Comments POTASSIUM (BEAKER) 4.8 meq/L 3.5-5.1 Specimen markedly (test code = 379) hemolyzed Stitcher Hand ID - [id number] 17:45:02 Test Item Value Reference Range Interpretation Comments MAGNESIUM (BEAKER) 2.2 mg/dL 1.6-2.6 Specimen markedly (test code = 627) hemolyzed Stitcher Hand ID - [id number] 15:46:10 Test Item Value Reference Range Interpretation Comments PARTIAL THROMBOPLASTIN TIME 31.4 seconds 22.5-36.0 (BEAKER) (test code = 760) LACTIC ACID, [id number] 15:45:25 Test Item Value Reference Range Interpretation Comments LACTATE BLOOD VENOUS (2) (BEAKER) 2.01 mmol/L 0.50-2.20 (test code = 2872) Stitcher Hand ID - DBOXYGEN SATURATION, [id number] 15:45:12 Test Item Value Reference Range Interpretation Comments O2 SATURATION (MEASURED) (BEAKER) 67.7 % (test code = 1455) BLOOD GAS, [id number] 15:43:50 Test Item Value Reference Range Interpretation Comments PH ARTERIAL (BEAKER) (test code = 7.44 7.35-7.45 383) PCO2 ARTERIAL (BEAKER) (test code 39 mm Hg 35-45 = 384) PO2 ARTERIAL (BEAKER) (test code = 140 mm Hg 80-90 H 385) O2 SATURATION ARTERIAL (BEAKER) 98.9 % 96.0-97.0 H (test code = 386) HCO3 ARTERIAL (BEAKER) (test code 26 mmol/L 21-29 = 388) BASE EXCESS ARTERIAL (BEAKER) 1.7 mmol/L -2.0-3.0 (test code = 387) PATIENT TEMPERATURE (BEAKER) (test 36.6 code = 1818) FIO2 (BEAKER) (test code = 1819) 40.0 PLATELET [id number] 15:38:28 Test Item Value Reference Range Interpretation Comments PLATELET COUNT (BEAKER) (test 161 K/CU MM 150-450 code = 756) Stitcher Hand ID - [id number] 13:51:22 Test Item Value Reference Range Interpretation Comments PARTIAL THROMBOPLASTIN TIME 71.2 seconds 22.5-36.0 H (BEAKER) (test code = 760) RAD, ABDOMEN/KUB, 1 VIEW [id number] 13:28:00KUBReason for exam:->placement of cannulaVETERANS [facility]OName: DANA WEST : 1970 Sex: MFINAL REPORT RAD, ABDOMEN/KUB, 1 VIEW AP CLINICAL INDICATION: placement of cannula COMPARISON: August 06, 2021 TECHNIQUE: Four frontal radiographs of the abdomen. IMPRESSION: ECMO cannula is present, terminating superiorly outside the imaged volume. The bowel gas pattern is nonspecific, but nonobstructive. A large colonic stool burden is present. Signed: JR Dumont Robert MDReport Verified Date/Time: 09/08/2021 13:28:47 Reading Location: [facility] Radiology Reading Room RAD, CHEST, 1 VIEW, NON [id number] 13:11:00Post- intubationReason for exam:->intubationShould this be performed at the bedside?->YesV[facility]ame: DANA WEST : 1970 Sex: MFINAL REPORT RAD, CHEST, 1 VIEW, NON DEPT INDICATION: intubation COMPARISON: Numerous seven hours prior FINDINGS: Portable frontal view of the chest. IMPRESSION: Support Lines: Intra-aortic: Pump marker projects 2 cm below the aortic arch inferior border. Endotracheal tube terminates 6cm above the vicki. Enteric tube side-port is not well characterized. ECMO cannulation has occurred. A [place]Miky catheter via left IJ approach terminates over the right main pulmonary artery. Lungs and pleura: Unchanged airspaces. No pneumothorax.Heart and mediastinum: Stable contours. Stable pacer ap paratus.Additional findings: None. Signed: JR Dumont Robert MDReport Verified Date/Time: 09/08/2021 13:11:29 Reading Location: [facility] Radiology Reading Room LACTATE DEHYDROGENASE (LDH)2021-09-08 12:59:09 Test Item Value Reference Range Interpretation Comments LACTATE DEHYDROGENASE (BEAKER) (test 353 U/L 125-220 H code = 635) Stitcher Hand ID - SO [id number] 12:59:08 Test Item Value Reference Range Interpretation Comments PHOSPHORUS (BEAKER) (test code = 3.3 mg/dL 2.3-4.7 604) Stitcher Hand ID - SO [id number] 12:59:07 Test Item Value Reference Range Interpretation Comments MAGNESIUM (BEAKER) (test code = 1.8 mg/dL 1.6-2.6 627) Stitcher Hand ID - SO MCOMPREHENSIVE METABOLIC [id number] 12:59:06 Test Item Value Reference Range Interpretation Comments TOTAL PROTEIN 5.8 gm/dL 6.0-8.3 L (BEAKER) (test code = 770) ALBUMIN (BEAKER) 3.6 g/dL 3.5-5.0 (test code = 1145) ALKALINE PHOSPHATASE 98 U/L 40-150 (BEAKER) (test code = 346) BILIRUBIN TOTAL 1.1 mg/dL 0.2-1.2 (BEAKER) (test code = 377) SODIUM (BEAKER) (test 137 meq/L 136-145 code = 381) POTASSIUM (BEAKER) 3.3 meq/L 3.5-5.1 L (test code = 379) CHLORIDE (BEAKER) 103 meq/L 98-107 (test code = 382) CO2 (BEAKER) (test 21 meq/L 22-29 L code = 355) BLOOD UREA NITROGEN 22 mg/dL 7-21 H (BEAKER) (test code = 354) CREATININE (BEAKER) 1.30 mg/dL 0.57-1.25 H (test code = 358) GLUCOSE RANDOM 124 mg/dL 70-105 H (BEAKER) (test code = 652) CALCIUM (BEAKER) 10.0 mg/dL 8.4-10.2 (test code = 697) AST (SGOT) (BEAKER) 25 U/L 5-34 (test code = 353) ALT (SGPT) (BEAKER) 20 U/L 6-55 (test code = 347) EGFR (BEAKER) (test 58 mL/min/1.73 ESTIMA NEELA GFR IS code = 1092) sq m NOT ACCURATE CREATININE CLEARANCE IN PREDICTING GLOMERULAR FILTRATION RATE . ESTIMATED GFR I S NOT APPLICABLE FOR DIALYSIS PATIEN TS. Stitcher Hand ID - SO [id number] 12:59:06 Test Item Value Reference Range Interpretation Comments PARTIAL THROMBOPLASTIN TIME 148.8 seconds 22.5-36.0 H (BEAKER) (test code = 760) [id number] 12:56:26 Test Item Value Reference Range Interpretation Comments FIBRINOGEN LEVEL (BEAKER) (test 319 mg/dl 225-434 code = 658) PROTHROMBIN TIME/[id number] 12:55:47 Test Item Value Reference Range Interpretation Comments PROTIME (BEAKER) 15.6 seconds 11.9-14.2 H (test code = 759) INR (BEAKER) (test 1.26 See_Comment [Automat ed message] code = 370) The system g4interactive generated this result transmitted ref erence range: <=5.90. The reference range was not used to int erpret this result as normal/abnormal . RECOMMENDED COUMADIN/WARFARIN INR THERAPY RANGESSTANDARD DOSE: 2.0 - 3.0 Includes: PROPHYLAXIS for venous thrombosis, systemic embolization; TREATMENT for venous thrombosis and/or pulmonary embolus.HIGH RISK: Target INR is 2.5-3.5 for patients with mechanical heart valves.LACTIC ACID, [id number] 12:55:46 Test Item Value Reference Range Interpretation Comments LACTATE BLOOD 3.9 mmol/L 0.5-2.2 H Specimen sligh tly ARTERIAL (2) (BEAKER) hemoly zed (test code = 2874) Stitcher Hand ID - SO [facility] (HEMOGRAM ONLY)2021-09-08 12:48:57 Test Item Value Reference Range Interpretation Comments WHITE BLOOD CELL COUNT (BEAKER) 15.9 K/ L 3.5-10.5 H (test code = 775) RED BLOOD CELL COUNT (BEAKER) 3.76 M/ L 4.63-6.08 L (test code = 761) HEMOGLOBIN (BEAKER) (test code = 12.2 GM/DL 13.7-17.5 L 410) HEMATOCRIT (BEAKER) (test code = 37.0 % 40.1-51.0 L 411) MEAN CORPUSCULAR VOLUME (BEAKER) 98.4 fL 79.0-92.2 H (test code = 753) MEAN CORPUSCULAR HEMOGLOBIN 32.4 pg 25.7-32.2 H (BEAKER) (test code = 751) MEAN CORPUSCULAR HEMOGLOBIN CONC 33.0 GM/DL 32.3-36.5 (BEAKER) (test code = 752) RED CELL DISTRIBUTION WIDTH 16.3 % 11.6-14.4 H (BEAKER) (test code = 412) PLATELET COUNT (BEAKER) (test 154 K/CU MM 150-450 code = 756) MEAN PLATELET VOLUME (BEAKER) 9.2 fL 9.4-12.4 L (test code = 754) NUCLEATED RED BLOOD CELLS 0 /100 WBC 0-0 (BEAKER) (test code = 413) SODIUM NA-STAT [id number] 12:42:59 Test Item Value Reference Range Interpretation Comments SODIUM (BEAKER) (test code = 381) 134 meq/L 136-145 L BLOOD GAS, [id number] 12:42:57 Test Item Value Reference Range Interpretation Comments PH ARTERIAL (BEAKER) (test code = 7.42 7.35-7.45 383) PCO2 ARTERIAL (BEAKER) (test code 33 mm Hg 35-45 L = 384) PO2 ARTERIAL (BEAKER) (test code 88 mm Hg 80-90 = 385) O2 SATURATION ARTERIAL (BEAKER) 97.3 % 96.0-97.0 H (test code = 386) HCO3 ARTERIAL (BEAKER) (test code 21 mmol/L 21-29 = 388) BASE EXCESS ARTERIAL (BEAKER) -3.0 mmol/L -2.0-3.0 L (test code = 387) PATIENT TEMPERATURE (BEAKER) 35.6 (test code = 1818) FIO2 (BEAKER) (test code = 1819) 60.0 CALCIUM, [id number] 12:42:21 Test Item Value Reference Range Interpretation Comments CALCIUM IONIZED (BEAKER) (test 1.25 mmol/L 1.12-1.27 code = 698) PH, BLOOD (BEAKER) (test code = 7.40 1810) HGB/HCT (H&H) - STAT [id number] 12:39:53 Test Item Value Reference Range Interpretation Comments HEMOGLOBIN (BEAKER) (test code = 12.9 GM/DL 13.0-16.8 L 410) HEMATOCRIT (BEAKER) (test code = 38.0 % 40.0-50.0 L 411) POTASSIUM-STAT [id number] 12:39:52 Test Item Value Reference Range Interpretation Comments POTASSIUM (BEAKER) (test code = 3.1 meq/L 3.6-5.5 L 379) GLUCOSE-STAT [id number] 12:39:52 Test Item Value Reference Range Interpretation Comments GLUCOSE RANDOM (BEAKER) (test code 112 mg/dL 70-110 H = 652) OXYGEN SATURATION, [id number] 12:39:36 Test Item Value Reference Range Interpretation Comments O2 SATURATION (MEASURED) (BEAKER) 65.0 % (test code = 1455) CALCIUM, [id number] 11:01:57 Test Item Value Reference Range Interpretation Comments CALCIUM IONIZED (BEAKER) (test 1.05 mmol/L 1.12-1.27 L code = 698) PH, BLOOD (BEAKER) (test code = 7.36 1810) HGB/HCT (H&H) - STAT [id number] 11:01:44 Test Item Value Reference Range Interpretation Comments HEMOGLOBIN (BEAKER) (test code = 12.6 GM/DL 13.0-16.8 L 410) HEMATOCRIT (BEAKER) (test code = 37.0 % 40.0-50.0 L 411) POTASSIUM-STAT [id number] 11:01:43 Test Item Value Reference Range Interpretation Comments POTASSIUM (BEAKER) (test code = 2.7 meq/L 3.6-5.5 L 379) GLUCOSE-STAT [id number] 11:01:43 Test Item Value Reference Range Interpretation Comments GLUCOSE RANDOM (BEAKER) (test code 217 mg/dL 70-110 H = 652) BLOOD GAS, [id number] 11:01:42 Test Item Value Reference Range Interpretation Comments PH ARTERIAL (BEAKER) (test code = 7.39 7.35-7.45 383) PCO2 ARTERIAL (BEAKER) (test code 37 mm Hg 35-45 = 384) PO2 ARTERIAL (BEAKER) (test code 73 mm Hg 80-90 L = 385) O2 SATURATION ARTERIAL (BEAKER) 96.0 % 96.0-97.0 (test code = 386) HCO3 ARTERIAL (BEAKER) (test code 22 mmol/L 21-29 = 388) BASE EXCESS ARTERIAL (BEAKER) -3.0 mmol/L -2.0-3.0 L (test code = 387) PATIENT TEMPERATURE (BEAKER) 35.0 (test code = 1818) FIO2 (BEAKER) (test code = 1819) 100.0 SODIUM NA-STAT [id number] 11:01:01 Test Item Value Reference Range Interpretation Comments SODIUM (BEAKER) (test code = 381) 135 meq/L 136-145 L POTASSIUM-STAT [id number] 10:45:25 Test Item Value Reference Range Interpretation Comments POTASSIUM (BEAKER) (test code = 2.5 meq/L 3.6-5.5 LL 379) HGB/HCT (H&H) - STAT [id number] 10:44:37 Test Item Value Reference Range Interpretation Comments HEMOGLOBIN (BEAKER) (test code = 13.3 GM/DL 13.0-16.8 410) HEMATOCRIT (BEAKER) (test code = 39.0 % 40.0-50.0 L 411) GLUCOSE-STAT [id number] 10:44:36 Test Item Value Reference Range Interpretation Comments GLUCOSE RANDOM (BEAKER) (test code 224 mg/dL 70-110 H = 652) BLOOD GAS, [id number] 10:44:35 Test Item Value Reference Range Interpretation Comments PH ARTERIAL (BEAKER) (test code = 7.41 7.35-7.45 383) PCO2 ARTERIAL (BEAKER) (test code 36 mm Hg 35-45 = 384) PO2 ARTERIAL (BEAKER) (test code 433 mm Hg 80-90 H = 385) O2 SATURATION ARTERIAL (BEAKER) 99.8 % 96.0-97.0 H (test code = 386) HCO3 ARTERIAL (BEAKER) (test code 23 mmol/L 21-29 = 388) BASE EXCESS ARTERIAL (BEAKER) -2.3 mmol/L -2.0-3.0 L (test code = 387) PATIENT TEMPERATURE (BEAKER) 35.1 (test code = 1818) FIO2 (BEAKER) (test code = 1819) 100.0 CALCIUM, [id number] 10:44:34 Test Item Value Reference Range Interpretation Comments CALCIUM IONIZED (BEAKER) (test 1.07 mmol/L 1.12-1.27 L code = 698) PH, BLOOD (BEAKER) (test code = 7.38 1810) SODIUM NA-STAT [id number] 10:44:04 Test Item Value Reference Range Interpretation Comments SODIUM (BEAKER) (test code = 381) 135 meq/L 136-145 L HGB/HCT (H&H) - STAT [id number] 10:28:42 Test Item Value Reference Range Interpretation Comments HEMOGLOBIN (BEAKER) (test code = 15.3 GM/DL 13.0-16.8 410) HEMATOCRIT (BEAKER) (test code = 45.0 % 40.0-50.0 411) POTASSIUM-STAT [id number] 10:28:35 Test Item Value Reference Range Interpretation Comments POTASSIUM (BEAKER) (test code = 2.8 meq/L 3.6-5.5 L 379) GLUCOSE-STAT [id number] 10:23:47 Test Item Value Reference Range Interpretation Comments GLUCOSE RANDOM (BEAKER) (test code 193 mg/dL 70-110 H = 652) BLOOD GAS, [id number] 10:23:46 Test Item Value Reference Range Interpretation Comments PH ARTERIAL (BEAKER) (test code = 7.34 7.35-7.45 L 383) PCO2 ARTERIAL (BEAKER) (test code 53 mm Hg 35-45 H = 384) PO2 ARTERIAL (BEAKER) (test code = 60 mm Hg 80-90 L 385) O2 SATURATION ARTERIAL (BEAKER) 90.6 % 96.0-97.0 L (test code = 386) HCO3 ARTERIAL (BEAKER) (test code 28 mmol/L 21-29 = 388) BASE EXCESS ARTERIAL (BEAKER) 0.8 mmol/L -2.0-3.0 (test code = 387) PATIENT TEMPERATURE (BEAKER) (test 36.0 code = 1818) FIO2 (BEAKER) (test code = 1819) 100.0 SODIUM NA-STAT [id number] 10:23:38 Test Item Value Reference Range Interpretation Comments SODIUM (BEAKER) (test code = 381) 138 meq/L 136-145 RAD, CHEST, 1 VIEW, NON [id number] 05:36:00Reason for exam:->IABP placement, PA cath placementShould this be performed at the bedside?->Yes [facility] : 1970 Sex: MFINAL REPORT EXAM/TECHNIQUE: Single view frontal radiograph of the chest. INDICATION: Intra-aortic balloon pump placement. COMPARISON: 09/07/2021 FINDINGS: Devices/Objects: Intra-aortic balloon pump terminates near the aorta pulmonary window. Otherwise, stable. Lungs: No focal consolidation. No pleural effusion. No pneumothorax. Heart/Mediastinum: Similar cardiomegaly. Osseous: No acute osseous process. No suspicious osseous lesion. Upper abdomen: Unremarkable. Impression: Balloon pump marker is near the aortopulmonary window. Signed: Ulysses Miller [facility] Verified Date/Time: 09/08/2021 05:36:28 APTT 2021-09-08 02:51:20 Test Item Value Reference Range Interpretation Comments PARTIAL THROMBOPLASTIN TIME 72.0 seconds 22.5-36.0 H (BEAKER) (test code = 760) PROTHROMBIN [id number] 02:49:44 Test Item Value Reference Range Interpretation Comments PROTIME (BEAKER) 13.0 seconds 11.9-14.2 (test code = 759) INR (BEAKER) (test 1.00 See_Comment [Automat ed message] code = 370) The system g4interactive generated this result transmitted ref erence range: <=5.90. The reference range was not used to int erpret this result as normal/abnormal . RECOMMENDED COUMADIN/WARFARIN INR THERAPY RANGESSTANDARD DOSE: 2.0 - 3.0 Includes: PROPHYLAXIS for venous thrombosis, systemic embolization; TREATMENT for venous thrombosis and/or pulmonary embolus.HIGH RISK: Target INR is 2.5-3.5 for patients with mechanical heart valves.[id number] 02:30:40 Test Item Value Reference Range Interpretation Comments MAGNESIUM (BEAKER) (test code = 1.8 mg/dL 1.6-2.6 627) Stitcher Hand ID - SO [id number] 02:30:40 Test Item Value Reference Range Interpretation Comments PHOSPHORUS (BEAKER) (test code = 3.9 mg/dL 2.3-4.7 604) Stitcher Hand ID - SO MBASIC METABOLIC [id number] 02:30:39 Test Item Value Reference Range Interpretation Comments SODIUM (BEAKER) 134 meq/L 136-145 L (test code = 381) POTASSIUM (BEAKER) 4.0 meq/L 3.5-5.1 (test code = 379) CHLORIDE (BEAKER) 95 meq/L 98-107 L (test code = 382) CO2 (BEAKER) (test 26 meq/L 22-29 code = 355) BLOOD UREA NITROGEN 21 mg/dL 7-21 (BEAKER) (test code = 354) CREATININE (BEAKER) 1.02 mg/dL 0.57-1.25 (test code = 358) GLUCOSE RANDOM 127 mg/dL 70-105 H (BEAKER) (test code = 652) CALCIUM (BEAKER) 9.4 mg/dL 8.4-10.2 (test code = 697) EGFR (BEAKER) (test 77 mL/min/1.73 ESTIMA NEELA GFR IS code = 1092) sq m NOT ACCURATE CREATININE CLEARANCE IN PREDICTING GLOMERULAR FILTRATION RATE . ESTIMATED GFR I S NOT APPLICABLE FOR DIALYSIS PATIEN TS. Stitcher Hand ID - SO MCBC W/PLT COUNT & AUTO [id number] 02:15:15 Test Item Value Reference Range Interpretation Comments WHITE BLOOD CELL COUNT (BEAKER) 9.4 K/ L 3.5-10.5 (test code = 775) RED BLOOD CELL COUNT (BEAKER) 3.80 M/ L 4.63-6.08 L (test code = 761) HEMOGLOBIN (BEAKER) (test code = 12.2 GM/DL 13.7-17.5 L 410) HEMATOCRIT (BEAKER) (test code = 35.8 % 40.1-51.0 L 411) MEAN CORPUSCULAR VOLUME (BEAKER) 94.2 fL 79.0-92.2 H (test code = 753) MEAN CORPUSCULAR HEMOGLOBIN 32.1 pg 25.7-32.2 (BEAKER) (test code = 751) MEAN CORPUSCULAR HEMOGLOBIN CONC 34.1 GM/DL 32.3-36.5 (BEAKER) (test code = 752) RED CELL DISTRIBUTION WIDTH 16.0 % 11.6-14.4 H (BEAKER) (test code = 412) PLATELET COUNT (BEAKER) (test 151 K/CU MM 150-450 code = 756) MEAN PLATELET VOLUME (BEAKER) 9.1 fL 9.4-12.4 L (test code = 754) NUCLEATED RED BLOOD CELLS 0 /100 WBC 0-0 (BEAKER) (test code = 413) NEUTROPHILS RELATIVE PERCENT 78 % (BEAKER) (test code = 429) LYMPHOCYTES RELATIVE PERCENT 14 % (BEAKER) (test code = 430) MONOCYTES RELATIVE PERCENT 6 % (BEAKER) (test code = 431) EOSINOPHILS RELATIVE PERCENT 2 % (BEAKER) (test code = 432) BASOPHILS RELATIVE PERCENT 0 % (BEAKER) (test code = 437) NEUTROPHILS ABSOLUTE COUNT 7.29 K/ L 1.78-5.38 H (BEAKER) (test code = 670) LYMPHOCYTES ABSOLUTE COUNT 1.27 K/ L 1.32-3.57 L (BEAKER) (test code = 414) MONOCYTES ABSOLUTE COUNT (BEAKER) 0.57 K/ L 0.30-0.82 (test code = 415) EOSINOPHILS ABSOLUTE COUNT 0.14 K/ L 0.04-0.54 (BEAKER) (test code = 416) BASOPHILS ABSOLUTE COUNT (BEAKER) 0.04 K/ L 0.01-0.08 (test code = 417) IMMATURE GRANULOCYTES-RELATIVE 0 % 0-1 PERCENT (BEAKER) (test code = 2801) OXYGEN SATURATION, [id number] 02:14:39 Test Item Value Reference Range Interpretation Comments O2 SATURATION (MEASURED) (BEAKER) 60.0 % (test code = 1455) [id number] 17:28:17 Test Item Value Reference Range Interpretation Comments POTASSIUM (BEAKER) 4.6 meq/L 3.5-5.1 Specimen moderately (test code = 379) hemolyzed Stitcher Hand ID - ESTRADA [id number] 17:25:53 Test Item Value Reference Range Interpretation Comments PARTIAL THROMBOPLASTIN TIME 84.7 seconds 22.5-36.0 H (BEAKER) (test code = 760) SARS-COV2/RT-PCR ([facility])2021-09-07 12:56:33 Test Item Value Reference Range Interpretation Comments SARS-COV2/RT-PCR Negative Negative The SARS-Co V-2 target (test code = nucleic acids a re not [id number]) detected in thi s specimen. Negative result s do not preclude SARS-C oV-2 infection and s hould not be used as the ludmila e basis for patient managem ent decisions. Nega tive results must be combine d with clinical observ ations, patient history , and epidemiological information. A false negativ e result may occur if a spec imen is improperly gia ected, transported or handled. This SARS CoV-2 test is a rapid, real-time RT-PC R test intended for th e qualitative detection of nu cleic acid from SARS-CoV-2 in a nasopharyngeal swab specimen collected from individuals suspected of CO VID-19 by their healthcar e provider. This test has been authorized by FDA under an EUA for use by authorized laboratories. This test is only authorized for the duration of the declaration that circumstances exist justifying the authorization of emergency use of in vitro diagnostic tests for detection and/or diagnosis of COVID-19 under Section 564(b)(1) of the Federal Food, Drug and Cosmetic Act, 21 U.S.C. 360bbb-3(b)(1), unless the authorization is terminated or revoked sooner. Fact Sheet for Healthcare Providers: https://www.[employer]/Documents/Xpert%20Xpress%20SARS%20CoV-2/Fact%20Sheets/302-3802%66LOP[place]-GUL-4%20 HEALTHCARE%20PROVIDERS%20FACT%20SHEET.pdf Fact Sheet for Healthcare Patients: https://www.[employer]/Documents/Xpert%20Xp ress%20SARS%20CoV-2/Fact%20Sheets/302-3801%44FOLT-EYR-1%20PATIENT%20FACT%20SHEET .[id number] 11:47:36 Test Item Value Reference Range Interpretation Comments PARTIAL THROMBOPLASTIN TIME 72.5 seconds 22.5-36.0 H (BEAKER) (test code = 760) RAD, CHEST, 1 VIEW, NON [id number] 05:33:00Reason for exam:->IABP positionShould this be performed at the bedside?->Yes [facility] : 1970 Sex: MFINAL REPORT EXAM/TECHNIQUE: Single view frontal radiograph of the chest. INDICATION: Intra-aortic balloon COMPARISON: 09/06/2021 FINDINGS: Devices/Objects: Intra-aortic balloon pump is about a centimeter inferior to the aortopulmonary window. Otherwise, stable. Lungs: No focal consolidation. No pleural effusion. No pneumothorax. Heart/Mediastinum: Similar cardiomegaly. Osseous: No acute osseous process. No suspicious osseous lesion. Upper abdomen: Unremarkable. Impression: Intra-aortic balloon pump marker is about a centimeter inferior to the aortopulmonary window. Signed: Ulysses Miller [facility] Verified Date/Time: 09/07/2021 05:33:10 [id number] 05:10:44 Test Item Value Reference Range Interpretation Comments PHOSPHORUS (BEAKER) (test code = 3.1 mg/dL 2.3-4.7 604) Stitcher Hand ID Sal CAGE [id number] 05:10:43 Test Item Value Reference Range Interpretation Comments MAGNESIUM (BEAKER) (test code = 2.0 mg/dL 1.6-2.6 627) Stitcher Hand ID Sal CAGE WBASIC METABOLIC [id number] 05:10:43 Test Item Value Reference Range Interpretation Comments SODIUM (BEAKER) 133 meq/L 136-145 L (test code = 381) POTASSIUM (BEAKER) 3.8 meq/L 3.5-5.1 (test code = 379) CHLORIDE (BEAKER) 94 meq/L 98-107 L (test code = 382) CO2 (BEAKER) (test 30 meq/L 22-29 H code = 355) BLOOD UREA NITROGEN 17 mg/dL 7-21 (BEAKER) (test code = 354) CREATININE (BEAKER) 0.82 mg/dL 0.57-1.25 (test code = 358) GLUCOSE RANDOM 111 mg/dL 70-105 H (BEAKER) (test code = 652) CALCIUM (BEAKER) 9.4 mg/dL 8.4-10.2 (test code = 697) EGFR (BEAKER) (test 99 mL/min/1.73 ESTIMA NEELA GFR IS code = 1092) sq m NOT ACCURATE CREATININE CLEARANCE IN PREDICTING GLOMERULAR FILTRATION RATE . ESTIMATED GFR I S NOT APPLICABLE FOR DIALYSIS PATIEN TS. Stitcher Hand ID Sal CAGE [id number] 04:53:13 Test Item Value Reference Range Interpretation Comments PARTIAL THROMBOPLASTIN TIME 94.2 seconds 22.5-36.0 H (BEAKER) (test code = 760) CBC (HEMOGRAM ONLY)2021-09-07 04:46:11 Test Item Value Reference Range Interpretation Comments WHITE BLOOD CELL COUNT (BEAKER) 9.4 K/ L 3.5-10.5 (test code = 775) RED BLOOD CELL COUNT (BEAKER) 3.87 M/ L 4.63-6.08 L (test code = 761) HEMOGLOBIN (BEAKER) (test code = 12.5 GM/DL 13.7-17.5 L 410) HEMATOCRIT (BEAKER) (test code = 36.4 % 40.1-51.0 L 411) MEAN CORPUSCULAR VOLUME (BEAKER) 94.1 fL 79.0-92.2 H (test code = 753) MEAN CORPUSCULAR HEMOGLOBIN 32.3 pg 25.7-32.2 H (BEAKER) (test code = 751) MEAN CORPUSCULAR HEMOGLOBIN CONC 34.3 GM/DL 32.3-36.5 (BEAKER) (test code = 752) RED CELL DISTRIBUTION WIDTH 16.0 % 11.6-14.4 H (BEAKER) (test code = 412) PLATELET COUNT (BEAKER) (test 165 K/CU MM 150-450 code = 756) MEAN PLATELET VOLUME (BEAKER) 8.9 fL 9.4-12.4 L (test code = 754) NUCLEATED RED BLOOD CELLS 0 /100 WBC 0-0 (BEAKER) (test code = 413) CBC W/PLT COUNT & AUTO [id number] 04:46:10 Test Item Value Reference Range Interpretation Comments WHITE BLOOD CELL COUNT (BEAKER) 9.4 K/ L 3.5-10.5 (test code = 775) RED BLOOD CELL COUNT (BEAKER) 3.87 M/ L 4.63-6.08 L (test code = 761) HEMOGLOBIN (BEAKER) (test code = 12.5 GM/DL 13.7-17.5 L 410) HEMATOCRIT (BEAKER) (test code = 36.4 % 40.1-51.0 L 411) MEAN CORPUSCULAR VOLUME (BEAKER) 94.1 fL 79.0-92.2 H (test code = 753) MEAN CORPUSCULAR HEMOGLOBIN 32.3 pg 25.7-32.2 H (BEAKER) (test code = 751) MEAN CORPUSCULAR HEMOGLOBIN CONC 34.3 GM/DL 32.3-36.5 (BEAKER) (test code = 752) RED CELL DISTRIBUTION WIDTH 16.0 % 11.6-14.4 H (BEAKER) (test code = 412) PLATELET COUNT (BEAKER) (test 165 K/CU MM 150-450 code = 756) MEAN PLATELET VOLUME (BEAKER) 8.9 fL 9.4-12.4 L (test code = 754) NUCLEATED RED BLOOD CELLS 0 /100 WBC 0-0 (BEAKER) (test code = 413) NEUTROPHILS RELATIVE PERCENT 76 % (BEAKER) (test code = 429) LYMPHOCYTES RELATIVE PERCENT 15 % (BEAKER) (test code = 430) MONOCYTES RELATIVE PERCENT 6 % (BEAKER) (test code = 431) EOSINOPHILS RELATIVE PERCENT 2 % (BEAKER) (test code = 432) BASOPHILS RELATIVE PERCENT 0 % (BEAKER) (test code = 437) NEUTROPHILS ABSOLUTE COUNT 7.19 K/ L 1.78-5.38 H (BEAKER) (test code = 670) LYMPHOCYTES ABSOLUTE COUNT 1.38 K/ L 1.32-3.57 (BEAKER) (test code = 414) MONOCYTES ABSOLUTE COUNT (BEAKER) 0.59 K/ L 0.30-0.82 (test code = 415) EOSINOPHILS ABSOLUTE COUNT 0.19 K/ L 0.04-0.54 (BEAKER) (test code = 416) BASOPHILS ABSOLUTE COUNT (BEAKER) 0.03 K/ L 0.01-0.08 (test code = 417) IMMATURE GRANULOCYTES-RELATIVE 1 % 0-1 PERCENT (BEAKER) (test code = 2801) OXYGEN SATURATION, [id number] 04:29:24 Test Item Value Reference Range Interpretation Comments O2 SATURATION (MEASURED) (BEAKER) 55.7 % (test code = 1455) [id number] 15:52:52 Test Item Value Reference Range Interpretation Comments POTASSIUM (BEAKER) 4.1 meq/L 3.5-5.1 Specimen slightly (test code = 379) hemolyzed Stitcher Hand ID - [id number] 15:52:51 Test Item Value Reference Range Interpretation Comments MAGNESIUM (BEAKER) 2.0 mg/dL 1.6-2.6 Specimen slightly (test code = 627) hemolyzed Stitcher Hand ID - [id number] 05:30:18 Test Item Value Reference Range Interpretation Comments PHOSPHORUS (BEAKER) (test code = 3.1 mg/dL 2.3-4.7 604) Stitcher Hand ID - ADMINBASIC METABOLIC [id number] 05:30:17 Test Item Value Reference Range Interpretation Comments SODIUM (BEAKER) 130 meq/L 136-145 L (test code = 381) POTASSIUM (BEAKER) 3.1 meq/L 3.5-5.1 L (test code = 379) CHLORIDE (BEAKER) 90 meq/L 98-107 L (test code = 382) CO2 (BEAKER) (test 30 meq/L 22-29 H code = 355) BLOOD UREA NITROGEN 19 mg/dL 7-21 (BEAKER) (test code = 354) CREATININE (BEAKER) 0.84 mg/dL 0.57-1.25 (test code = 358) GLUCOSE RANDOM 108 mg/dL 70-105 H (BEAKER) (test code = 652) CALCIUM (BEAKER) 9.1 mg/dL 8.4-10.2 (test code = 697) EGFR (BEAKER) (test 97 mL/min/1.73 ESTIMA NEELA GFR IS code = 1092) sq m NOT ACCURATE CREATININE CLEARANCE IN PREDICTING GLOMERULAR FILTRATION RATE . ESTIMATED GFR I S NOT APPLICABLE FOR DIALYSIS PATIEN TS. Stitcher Hand ID - [id number] 05:30:17 Test Item Value Reference Range Interpretation Comments MAGNESIUM (BEAKER) (test code = 1.8 mg/dL 1.6-2.6 627) Stitcher Hand ID - [id number] 05:14:03 Test Item Value Reference Range Interpretation Comments PARTIAL THROMBOPLASTIN TIME 89.7 seconds 22.5-36.0 H (BEAKER) (test code = 760) OXYGEN SATURATION, [id number] 05:01:42 Test Item Value Reference Range Interpretation Comments O2 SATURATION (MEASURED) (BEAKER) 59.0 % (test code = 1455) CBC W/PLT COUNT & AUTO [id number] 04:54:12 Test Item Value Reference Range Interpretation Comments WHITE BLOOD CELL COUNT (BEAKER) 9.5 K/ L 3.5-10.5 (test code = 775) RED BLOOD CELL COUNT (BEAKER) 3.82 M/ L 4.63-6.08 L (test code = 761) HEMOGLOBIN (BEAKER) (test code = 12.2 GM/DL 13.7-17.5 L 410) HEMATOCRIT (BEAKER) (test code = 35.0 % 40.1-51.0 L 411) MEAN CORPUSCULAR VOLUME (BEAKER) 91.6 fL 79.0-92.2 (test code = 753) MEAN CORPUSCULAR HEMOGLOBIN 31.9 pg 25.7-32.2 (BEAKER) (test code = 751) MEAN CORPUSCULAR HEMOGLOBIN CONC 34.9 GM/DL 32.3-36.5 (BEAKER) (test code = 752) RED CELL DISTRIBUTION WIDTH 16.2 % 11.6-14.4 H (BEAKER) (test code = 412) PLATELET COUNT (BEAKER) (test 157 K/CU MM 150-450 code = 756) MEAN PLATELET VOLUME (BEAKER) 8.9 fL 9.4-12.4 L (test code = 754) NUCLEATED RED BLOOD CELLS 0 /100 WBC 0-0 (BEAKER) (test code = 413) NEUTROPHILS RELATIVE PERCENT 78 % (BEAKER) (test code = 429) LYMPHOCYTES RELATIVE PERCENT 14 % (BEAKER) (test code = 430) MONOCYTES RELATIVE PERCENT 6 % (BEAKER) (test code = 431) EOSINOPHILS RELATIVE PERCENT 2 % (BEAKER) (test code = 432) BASOPHILS RELATIVE PERCENT 0 % (BEAKER) (test code = 437) NEUTROPHILS ABSOLUTE COUNT 7.35 K/ L 1.78-5.38 H (BEAKER) (test code = 670) LYMPHOCYTES ABSOLUTE COUNT 1.31 K/ L 1.32-3.57 L (BEAKER) (test code = 414) MONOCYTES ABSOLUTE COUNT (BEAKER) 0.57 K/ L 0.30-0.82 (test code = 415) EOSINOPHILS ABSOLUTE COUNT 0.19 K/ L 0.04-0.54 (BEAKER) (test code = 416) BASOPHILS ABSOLUTE COUNT (BEAKER) 0.02 K/ L 0.01-0.08 (test code = 417) IMMATURE GRANULOCYTES-RELATIVE 0 % 0-1 PERCENT (BEAKER) (test code = 2801) RAD, CHEST, 1 VIEW, NON [id number] 03:14:00Reason for exam:->IABP positionShould this be performed at the bedside?->Yes [facility] 1970 Sex: MFINAL REPORT EXAM/TECHNIQUE: Single view frontal radiograph of the chest. INDICATION: Intra-aortic balloon positioning. COMPARISON: 09/05/2021 FINDINGS: Devices/Objects: Stable with intra-aortic balloon pump at the level of the aortopulmonary window. Lungs: No focal consolidation. No pleural effusion. No pneumothorax. Heart/Mediastinum: Similar cardiomegaly. Osseous: No acute osseous process. No suspicious osseous lesion. Upper abdomen: Unremarkable. Impression: No new cardiopulmonaryprocess. Signed: Ulysses Miller MDRepdeborah Verified Date/Time: 09/06/2021 03:14:51 [id number] 19:25:52 Test Item Value Reference Range Interpretation Comments PARTIAL THROMBOPLASTIN TIME 72.7 seconds 22.5-36.0 H (BEAKER) (test code = 760) [id number] 12:47:15 Test Item Value Reference Range Interpretation Comments PARTIAL THROMBOPLASTIN TIME 77.4 seconds 22.5-36.0 H (BEAKER) (test code = 760) HEMOGLOBIN [id number] 08:32:10 Test Item Value Reference Range Interpretation Comments HEMOGLOBIN A1C (BEAKER) (test code = 5.2 % 4.3-6.1 368) [id number] 04:06:12 Test Item Value Reference Range Interpretation Comments MAGNESIUM (BEAKER) 2.1 mg/dL 1.6-2.6 Specimen slightly (test code = 627) hemolyzed Stitcher Hand ID - ISREAL SUN, CHEST, 1 VIEW, NON [id number] 03:15:00Reason for exam:->IABP positionShould this be performed at the bedside?->Yes [facility] : 1970 Sex: MFINAL REPORT EXAM/TECHNIQUE: Single view frontal radiograph of the chest. INDICATION: Balloon pump COMPARISON: 09/04/2021 FINDINGS: Devices/Objects: Stable. Lungs: No focal consolidation. No pleural effusion. No pneumothorax. Heart/Mediastinum: Similar cardiomegaly. Osseous: No acute osseous process. No suspicious osseous lesion. Upper abdomen: Unremarkable. Impression: No new cardiopulmonary process. Signed: Ulysses Miller MDRort Verified Date/Time: 09/05/2021 03:15:39 BASIC METABOLIC [id number] 02:47:31 Test Item Value Reference Range Interpretation Comments SODIUM (BEAKER) 132 meq/L 136-145 L (test code = 381) POTASSIUM (BEAKER) 3.5 meq/L 3.5-5.1 Specimen slightly (test code = 379) hemolyzed CHLORIDE (BEAKER) 90 meq/L 98-107 L (test code = 382) CO2 (BEAKER) (test 29 meq/L 22-29 code = 355) BLOOD UREA NITROGEN 20 mg/dL 7-21 (BEAKER) (test code = 354) CREATININE (BEAKER) 0.84 mg/dL 0.57-1.25 Specimen slightly (test code = 358) hemolyzed GLUCOSE RANDOM 111 mg/dL 70-105 H (BEAKER) (test code = 652) CALCIUM (BEAKER) 9.1 mg/dL 8.4-10.2 (test code = 697) EGFR (BEAKER) (test 97 mL/min/1.73 ESTIMA NEELA GFR IS code = 1092) sq m NOT ACCURATE CREATININE CLEARANCE IN PREDICTING GLOMERULAR FILTRATION RATE . ESTIMATED GFR I S NOT APPLICABLE FOR DIALYSIS PATIEN TS. Stitcher Hand ID - ISREAL [id number] 02:34:09 Test Item Value Reference Range Interpretation Comments PARTIAL THROMBOPLASTIN TIME 61.2 seconds 22.5-36.0 H (BEAKER) (test code = 760) CBC W/PLT COUNT & AUTO [id number] 02:22:21 Test Item Value Reference Range Interpretation Comments WHITE BLOOD CELL COUNT (BEAKER) 11.5 K/ L 3.5-10.5 H (test code = 775) RED BLOOD CELL COUNT (BEAKER) 3.90 M/ L 4.63-6.08 L (test code = 761) HEMOGLOBIN (BEAKER) (test code = 12.4 GM/DL 13.7-17.5 L 410) HEMATOCRIT (BEAKER) (test code = 36.1 % 40.1-51.0 L 411) MEAN CORPUSCULAR VOLUME (BEAKER) 92.6 fL 79.0-92.2 H (test code = 753) MEAN CORPUSCULAR HEMOGLOBIN 31.8 pg 25.7-32.2 (BEAKER) (test code = 751) MEAN CORPUSCULAR HEMOGLOBIN CONC 34.3 GM/DL 32.3-36.5 (BEAKER) (test code = 752) RED CELL DISTRIBUTION WIDTH 16.3 % 11.6-14.4 H (BEAKER) (test code = 412) PLATELET COUNT (BEAKER) (test 225 K/CU MM 150-450 code = 756) MEAN PLATELET VOLUME (BEAKER) 8.9 fL 9.4-12.4 L (test code = 754) NUCLEATED RED BLOOD CELLS 0 /100 WBC 0-0 (BEAKER) (test code = 413) NEUTROPHILS RELATIVE PERCENT 81 % (BEAKER) (test code = 429) LYMPHOCYTES RELATIVE PERCENT 11 % (BEAKER) (test code = 430) MONOCYTES RELATIVE PERCENT 6 % (BEAKER) (test code = 431) EOSINOPHILS RELATIVE PERCENT 1 % (BEAKER) (test code = 432) BASOPHILS RELATIVE PERCENT 0 % (BEAKER) (test code = 437) NEUTROPHILS ABSOLUTE COUNT 9.34 K/ L 1.78-5.38 H (BEAKER) (test code = 670) LYMPHOCYTES ABSOLUTE COUNT 1.26 K/ L 1.32-3.57 L (BEAKER) (test code = 414) MONOCYTES ABSOLUTE COUNT (BEAKER) 0.67 K/ L 0.30-0.82 (test code = 415) EOSINOPHILS ABSOLUTE COUNT 0.14 K/ L 0.04-0.54 (BEAKER) (test code = 416) BASOPHILS ABSOLUTE COUNT (BEAKER) 0.03 K/ L 0.01-0.08 (test code = 417) IMMATURE GRANULOCYTES-RELATIVE 0 % 0-1 PERCENT (BEAKER) (test code = 2801) OXYGEN SATURATION, [id number] 02:18:47 Test Item Value Reference Range Interpretation Comments O2 SATURATION (MEASURED) (BEAKER) 60.0 % (test code = 1455) [id number] 19:19:05 Test Item Value Reference Range Interpretation Comments PARTIAL THROMBOPLASTIN TIME 45.4 seconds 22.5-36.0 H (BEAKER) (test code = 760) [id number] 16:47:52 Test Item Value Reference Range Interpretation Comments POTASSIUM (BEAKER) (test code = 3.2 meq/L 3.5-5.1 L 379) Stitcher Hand ID - SO [id number] 16:47:51 Test Item Value Reference Range Interpretation Comments MAGNESIUM (BEAKER) (test code = 1.9 mg/dL 1.6-2.6 627) Stitcher Hand ID - SO MCOMPREHENSIVE METABOLIC [id number] 13:59:49 Test Item Value Reference Range Interpretation Comments TOTAL PROTEIN 7.4 gm/dL 6.0-8.3 Specimen sligh tly (BEAKER) (test code = hemoly zed 770) ALBUMIN (BEAKER) 4.1 g/dL 3.5-5.0 Specimen sl ightly (test code = 1145) hemolyzed ALKALINE PHOSPHATASE 117 U/L 40-150 (BEAKER) (test code = 346) BILIRUBIN TOTAL 1.0 mg/dL 0.2-1.2 Specimen sli ghtly (BEAKER) (test code = hemoly zed 377) SODIUM (BEAKER) (test 129 meq/L 136-145 L code = 381) POTASSIUM (BEAKER) 3.7 meq/L 3.5-5.1 Specimen slightly (test code = 379) hemolyzed CHLORIDE (BEAKER) 88 meq/L 98-107 L (test code = 382) CO2 (BEAKER) (test 28 meq/L 22-29 code = 355) BLOOD UREA NITROGEN 16 mg/dL 7-21 (BEAKER) (test code = 354) CREATININE (BEAKER) 1.00 mg/dL 0.57-1.25 Specimen slightly (test code = 358) hemolyzed GLUCOSE RANDOM 116 mg/dL 70-105 H (BEAKER) (test code = 652) CALCIUM (BEAKER) 9.1 mg/dL 8.4-10.2 (test code = 697) AST (SGOT) (BEAKER) 23 U/L 5-34 Specimen slightly (test code = 353) hemolyzed ALT (SGPT) (BEAKER) 20 U/L 6-55 Specimen slightly (test code = 347) hemolyzed EGFR (BEAKER) (test 79 mL/min/1.73 ESTIMA NEELA GFR IS code = 1092) sq m NOT ACCURATE CREATININE CLEARANCE IN PREDICTING GLOMERULAR FILTRATION RATE . ESTIMATED GFR I S NOT APPLICABLE FOR DIALYSIS PATIEN TS. Stitcher Hand ID - SO [id number] 10:47:40 Test Item Value Reference Range Interpretation Comments PARTIAL THROMBOPLASTIN TIME 41.3 seconds 22.5-36.0 H (BEAKER) (test code = 760) RAD, CHEST, 1 VIEW, NON [id number] 09:22:00Reason for exam:->evaluate IABPShould this be performed at the bedside?->Yes [facility] : 1970 Sex: MFINAL REPORT Chest, one view. HISTORY: evaluate IABP COMPARISON: Radiograph from 09/02/2021 IMPRESSION: The tip of the intra-aortic balloon pump is at the aortic arch. Interval insertion of a right IJ pulmonary arterial catheter with the tip over the right pulmonary artery. Unchanged positioning of the tunneled right IJ central venous catheter and left chest pacer/ICD. The interstitial pulmonary edema is essentially unchanged. Small right pleural effusion. No pneumothorax. The cardiac silhouette is unchanged in size. No acute bone abnormality. Signed: Catalino Bender MDReport Verified Date/Time: 09/04/2021 09:22:14 [id number] 08:54:40 Test Item Value Reference Range Interpretation Comments POTASSIUM (BEAKER) (test code = 2.7 meq/L 3.5-5.1 L 379) Stitcher Hand ID - SO MBASIC METABOLIC [id number] 04:08:53 Test Item Value Reference Range Interpretation Comments SODIUM (BEAKER) 131 meq/L 136-145 L (test code = 381) POTASSIUM (BEAKER) 2.5 meq/L 3.5-5.1 LL (test code = 379) CHLORIDE (BEAKER) 88 meq/L 98-107 L (test code = 382) CO2 (BEAKER) (test 27 meq/L 22-29 code = 355) BLOOD UREA NITROGEN 15 mg/dL 7-21 (BEAKER) (test code = 354) CREATININE (BEAKER) 0.85 mg/dL 0.57-1.25 (test code = 358) GLUCOSE RANDOM 98 mg/dL 70-105 (BEAKER) (test code = 652) CALCIUM (BEAKER) 9.2 mg/dL 8.4-10.2 (test code = 697) EGFR (BEAKER) (test 95 mL/min/1.73 ESTIMA NEELA GFR IS code = 1092) sq m NOT ACCURATE CREATININE CLEARANCE IN PREDICTING GLOMERULAR FILTRATION RATE . ESTIMATED GFR I S NOT APPLICABLE FOR DIALYSIS PATIEN TS. Stitcher Hand ID - SO [id number] 04:04:25 Test Item Value Reference Range Interpretation Comments PARTIAL THROMBOPLASTIN TIME 35.5 seconds 22.5-36.0 (BEAKER) (test code = 760) [id number] 03:56:20 Test Item Value Reference Range Interpretation Comments MAGNESIUM (BEAKER) (test code = 2.0 mg/dL 1.6-2.6 627) Stitcher Hand ID - SO MOXYGEN SATURATION, [id number] 03:51:37 Test Item Value Reference Range Interpretation Comments O2 SATURATION (MEASURED) (BEAKER) 72.7 % (test code = 1455) CBC W/PLT COUNT & AUTO [id number] 03:36:30 Test Item Value Reference Range Interpretation Comments WHITE BLOOD CELL COUNT (BEAKER) 9.5 K/ L 3.5-10.5 (test code = 775) RED BLOOD CELL COUNT (BEAKER) 3.96 M/ L 4.63-6.08 L (test code = 761) HEMOGLOBIN (BEAKER) (test code = 12.5 GM/DL 13.7-17.5 L 410) HEMATOCRIT (BEAKER) (test code = 36.7 % 40.1-51.0 L 411) MEAN CORPUSCULAR VOLUME (BEAKER) 92.7 fL 79.0-92.2 H (test code = 753) MEAN CORPUSCULAR HEMOGLOBIN 31.6 pg 25.7-32.2 (BEAKER) (test code = 751) MEAN CORPUSCULAR HEMOGLOBIN CONC 34.1 GM/DL 32.3-36.5 (BEAKER) (test code = 752) RED CELL DISTRIBUTION WIDTH 16.3 % 11.6-14.4 H (BEAKER) (test code = 412) PLATELET COUNT (BEAKER) (test 221 K/CU MM 150-450 code = 756) MEAN PLATELET VOLUME (BEAKER) 8.6 fL 9.4-12.4 L (test code = 754) NUCLEATED RED BLOOD CELLS 0 /100 WBC 0-0 (BEAKER) (test code = 413) NEUTROPHILS RELATIVE PERCENT 79 % (BEAKER) (test code = 429) LYMPHOCYTES RELATIVE PERCENT 13 % (BEAKER) (test code = 430) MONOCYTES RELATIVE PERCENT 6 % (BEAKER) (test code = 431) EOSINOPHILS RELATIVE PERCENT 2 % (BEAKER) (test code = 432) BASOPHILS RELATIVE PERCENT 0 % (BEAKER) (test code = 437) NEUTROPHILS ABSOLUTE COUNT 7.46 K/ L 1.78-5.38 H (BEAKER) (test code = 670) LYMPHOCYTES ABSOLUTE COUNT 1.24 K/ L 1.32-3.57 L (BEAKER) (test code = 414) MONOCYTES ABSOLUTE COUNT (BEAKER) 0.54 K/ L 0.30-0.82 (test code = 415) EOSINOPHILS ABSOLUTE COUNT 0.16 K/ L 0.04-0.54 (BEAKER) (test code = 416) BASOPHILS ABSOLUTE COUNT (BEAKER) 0.02 K/ L 0.01-0.08 (test code = 417) IMMATURE GRANULOCYTES-RELATIVE 1 % 0-1 PERCENT (BEAKER) (test code = 2801) [id number] 21:16:01 Test Item Value Reference Range Interpretation Comments PARTIAL THROMBOPLASTIN TIME 28.6 seconds 22.5-36.0 (BEAKER) (test code = 760) [id number] 20:39:21 Test Item Value Reference Range Interpretation Comments POTASSIUM (BEAKER) 2.6 meq/L 3.5-5.1 LL Specimen moderately (test code = 379) hemolyzed Stitcher Hand ID - [id number] 20:38:16 Test Item Value Reference Range Interpretation Comments MAGNESIUM (BEAKER) 1.5 mg/dL 1.6-2.6 L Specimen moderately (test code = 627) hemolyzed Stitcher Hand ID - BSOXYGEN SATURATION, [id number] 19:55:47 Test Item Value Reference Range Interpretation Comments O2 SATURATION (MEASURED) (BEAKER) 72.5 % (test code = 1455) [id number] 09:57:09 Test Item Value Reference Range Interpretation Comments PARTIAL THROMBOPLASTIN TIME 29.1 seconds 22.5-36.0 (BEAKER) (test code = 760) CBC (HEMOGRAM ONLY)2021-09-03 09:48:30 Test Item Value Reference Range Interpretation Comments WHITE BLOOD CELL COUNT (BEAKER) 9.7 K/ L 3.5-10.5 (test code = 775) RED BLOOD CELL COUNT (BEAKER) 4.01 M/ L 4.63-6.08 L (test code = 761) HEMOGLOBIN (BEAKER) (test code = 12.6 GM/DL 13.7-17.5 L 410) HEMATOCRIT (BEAKER) (test code = 38.1 % 40.1-51.0 L 411) MEAN CORPUSCULAR VOLUME (BEAKER) 95.0 fL 79.0-92.2 H (test code = 753) MEAN CORPUSCULAR HEMOGLOBIN 31.4 pg 25.7-32.2 (BEAKER) (test code = 751) MEAN CORPUSCULAR HEMOGLOBIN CONC 33.1 GM/DL 32.3-36.5 (BEAKER) (test code = 752) RED CELL DISTRIBUTION WIDTH 16.8 % 11.6-14.4 H (BEAKER) (test code = 412) PLATELET COUNT (BEAKER) (test 250 K/CU MM 150-450 code = 756) MEAN PLATELET VOLUME (BEAKER) 8.4 fL 9.4-12.4 L (test code = 754) NUCLEATED RED BLOOD CELLS 0 /100 WBC 0-0 (BEAKER) (test code = 413) BASIC METABOLIC [id number] 04:32:53 Test Item Value Reference Range Interpretation Comments SODIUM (BEAKER) 131 meq/L 136-145 L (test code = 381) POTASSIUM (BEAKER) 3.5 meq/L 3.5-5.1 (test code = 379) CHLORIDE (BEAKER) 91 meq/L 98-107 L (test code = 382) CO2 (BEAKER) (test 27 meq/L 22-29 code = 355) BLOOD UREA NITROGEN 15 mg/dL 7-21 (BEAKER) (test code = 354) CREATININE (BEAKER) 1.02 mg/dL 0.57-1.25 (test code = 358) GLUCOSE RANDOM 127 mg/dL 70-105 H (BEAKER) (test code = 652) CALCIUM (BEAKER) 9.7 mg/dL 8.4-10.2 (test code = 697) EGFR (BEAKER) (test 77 mL/min/1.73 ESTIMA NEELA GFR IS code = 1092) sq m NOT ACCURATE CREATININE CLEARANCE IN PREDICTING GLOMERULAR FILTRATION RATE . ESTIMATED GFR I S NOT APPLICABLE FOR DIALYSIS PATIEN TS. Stitcher Hand ID - SO MB-TYPE NATRIURETIC FACTOR (BNP)2021-09-03 04:29:17 Test Item Value Reference Range Interpretation Comments B-TYPE NATRIURETIC PEPTIDE (BEAKER) 752 pg/mL 0-100 H (test code = 700) Stitcher Hand ID - SO MCBC W/PLT COUNT & AUTO [id number] 04:06:27 Test Item Value Reference Range Interpretation Comments WHITE BLOOD CELL COUNT (BEAKER) 9.2 K/ L 3.5-10.5 (test code = 775) RED BLOOD CELL COUNT (BEAKER) 4.06 M/ L 4.63-6.08 L (test code = 761) HEMOGLOBIN (BEAKER) (test code = 12.7 GM/DL 13.7-17.5 L 410) HEMATOCRIT (BEAKER) (test code = 38.7 % 40.1-51.0 L 411) MEAN CORPUSCULAR VOLUME (BEAKER) 95.3 fL 79.0-92.2 H (test code = 753) MEAN CORPUSCULAR HEMOGLOBIN 31.3 pg 25.7-32.2 (BEAKER) (test code = 751) MEAN CORPUSCULAR HEMOGLOBIN CONC 32.8 GM/DL 32.3-36.5 (BEAKER) (test code = 752) RED CELL DISTRIBUTION WIDTH 16.6 % 11.6-14.4 H (BEAKER) (test code = 412) PLATELET COUNT (BEAKER) (test 264 K/CU MM 150-450 code = 756) MEAN PLATELET VOLUME (BEAKER) 8.6 fL 9.4-12.4 L (test code = 754) NUCLEATED RED BLOOD CELLS 0 /100 WBC 0-0 (BEAKER) (test code = 413) NEUTROPHILS RELATIVE PERCENT 76 % (BEAKER) (test code = 429) LYMPHOCYTES RELATIVE PERCENT 17 % (BEAKER) (test code = 430) MONOCYTES RELATIVE PERCENT 5 % (BEAKER) (test code = 431) EOSINOPHILS RELATIVE PERCENT 2 % (BEAKER) (test code = 432) BASOPHILS RELATIVE PERCENT 0 % (BEAKER) (test code = 437) NEUTROPHILS ABSOLUTE COUNT 6.98 K/ L 1.78-5.38 H (BEAKER) (test code = 670) LYMPHOCYTES ABSOLUTE COUNT 1.58 K/ L 1.32-3.57 (BEAKER) (test code = 414) MONOCYTES ABSOLUTE COUNT (BEAKER) 0.42 K/ L 0.30-0.82 (test code = 415) EOSINOPHILS ABSOLUTE COUNT 0.14 K/ L 0.04-0.54 (BEAKER) (test code = 416) BASOPHILS ABSOLUTE COUNT (BEAKER) 0.04 K/ L 0.01-0.08 (test code = 417) IMMATURE GRANULOCYTES-RELATIVE 1 % 0-1 PERCENT (BEAKER) (test code = 2801) HIGH SENSITIVITY TROPONIN [id number] 22:46:50 Test Item Value Reference Range Interpretation Comments HIGH SENSITIVITY 44 pg/ml See_Comment H [Automated message] TROPONIN I (test code = The system which [id number]) generated this result transmitted ref erence range: <=35. Th e reference range was not used to int erpret this result as normal/abnormal . Stitcher Hand ID - ADMINThe [employer] STAT High Sensitivity Troponin-I results should be used in conjunction with other diagnostic information such as ECG, clinical observations and information, and patientsymptoms to aid in the diagnosis of PR. SARS-COV2/RT-PCR ([facility])2021-09-02 21:24:44 Test Item Value Reference Range Interpretation Comments SARS-COV2/RT-PCR Negative Negative The SARS-Co V-2 target (test code = nucleic acids a re not [id number]) detected in thi s specimen. Negative result s do not preclude SARS-C oV-2 infection and s hould not be used as the ludmila e basis for patient managem ent decisions. Nega tive results must be combine d with clinical observ ations, patient history , and epidemiological information. A false negativ e result may occur if a spec imen is improperly gia ected, transported or handled. This SARS CoV-2 test is a rapid, real-time RT-PC R test intended for th e qualitative detection of nu cleic acid from SARS-CoV-2 in a nasopharyngeal swab specimen collected from individuals suspected of CO VID-19 by their healthcar e provider. This test has been authorized by FDA under an EUA for use by authorized laboratories. This test is only authorized for the duration of the declaration that circumstances exist justifying the authorization of emergency use of in vitro diagnostic tests for detection and/or diagnosis of COVID-19 under Section 564(b)(1) of the Federal Food, Drug and Cosmetic Act, 21 U.S.C. 360bbb-3(b)(1), unless the authorization is terminated or revoked sooner. Fact Sheet for Healthcare Providers: https://www.[employer] m/Documents/Xpert%20Xpress%20SARS%20CoV-2/Fact%20Sheets/302-3802%00MKQE-HYA-0%20 HEALTHCARE%20PROVIDERS%20FACT%20SHEET.pdf Fact Sheet for Healthcare Patients: https://www.[employer]/Documents/Xpert%20Xp ress%20SARS%20CoV-2/Fact%20Sheets/302-3801%75MVWD-NBV-4%20PATIENT%20FACT%20SHEET .pdfPOCT-GLUCOSE [id number] 20:35:22 Test Item Value Reference Range Interpretation Comments POC-GLUCOSE METER 148 mg/dL 70-110 H : TESTED A T BSC 6720 ([place]) (test code = MELIVNA Olson [facility], 1538) [address]: Stitcher Hand/Techni ebenezer ID = [id number] for LINDA ROONEY B-TYPE NATRIURETIC FACTOR (BNP)2021-09-02 20:21:29 Test Item Value Reference Range Interpretation Comments B-TYPE NATRIURETIC PEPTIDE (BEAKER) 761 pg/mL 0-100 H (test code = 700) Stitcher Hand ID - BSHIGH SENSITIVITY TROPONIN [id number] 20:21:09 Test Item Value Reference Range Interpretation Comments HIGH SENSITIVITY 43 pg/ml See_Comment H [Automated message] TROPONIN I (test code = The system which [id number]) generated this result transmitted ref erence range: <=35. Th e reference range was not used to int erpret this result as normal/abnormal . Stitcher Hand ID - BSThe [employer] STAT High Sensitivity Troponin-I results should be used in conjunctionwith other diagnostic information such as ECG, clinical observations and information, and patient symptoms to aid in the diagnosis of PR.[id number] 20:14:31 Test Item Value Reference Range Interpretation Comments MAGNESIUM (BEAKER) (test code = 1.8 mg/dL 1.6-2.6 627) Stitcher Hand ID - BSBASIC METABOLIC [id number] 20:14:30 Test Item Value Reference Range Interpretation Comments SODIUM (BEAKER) 133 meq/L 136-145 L (test code = 381) POTASSIUM (BEAKER) 3.5 meq/L 3.5-5.1 (test code = 379) CHLORIDE (BEAKER) 95 meq/L 98-107 L (test code = 382) CO2 (BEAKER) (test 24 meq/L 22-29 code = 355) BLOOD UREA NITROGEN 16 mg/dL 7-21 (BEAKER) (test code = 354) CREATININE (BEAKER) 0.90 mg/dL 0.57-1.25 (test code = 358) GLUCOSE RANDOM 124 mg/dL 70-105 H (BEAKER) (test code = 652) CALCIUM (BEAKER) 9.5 mg/dL 8.4-10.2 (test code = 697) EGFR (BEAKER) (test 89 mL/min/1.73 ESTIMA NEELA GFR IS code = 1092) sq m NOT ACCURATE CREATININE CLEARANCE IN PREDICTING GLOMERULAR FILTRATION RATE . ESTIMATED GFR I S NOT APPLICABLE FOR DIALYSIS PATIEN TS. Stitcher Hand ID - [id number] 20:06:49 Test Item Value Reference Range Interpretation Comments PROTIME (BEAKER) (test 15.0 seconds 11.9-14.2 H code = 759) INR (BEAKER) (test 1.20 See_Comment [Automat ed code = 370) message] The sy stem which generated this result transmitted reference range : <=5.90. The reference range was not used to interpret this result as normal/abnormal . PARTIAL THROMBOPLASTIN 28.5 seconds 22.5-36.0 TIME (BEAKER) (test code = 760) RECOMMENDED COUMADIN/WARFARIN INR THERAPY RANGESSTANDARD DOSE: 2.0 - 3.0 Includes: PROPHYLAXIS for venous thrombosis, systemic embolization; TREATMENT for venous thrombosis and/or pulmonary embolus.HIGH RISK: Target INR is 2.5-3.5 for patients with mechanical heart valves.CBC W/PLT COUNT & AUTO [id number] 20:00:49 Test Item Value Reference Range Interpretation Comments WHITE BLOOD CELL COUNT (BEAKER) 10.3 K/ L 3.5-10.5 (test code = 775) RED BLOOD CELL COUNT (BEAKER) 4.12 M/ L 4.63-6.08 L (test code = 761) HEMOGLOBIN (BEAKER) (test code = 12.9 GM/DL 13.7-17.5 L 410) HEMATOCRIT (BEAKER) (test code = 39.3 % 40.1-51.0 L 411) MEAN CORPUSCULAR VOLUME (BEAKER) 95.4 fL 79.0-92.2 H (test code = 753) MEAN CORPUSCULAR HEMOGLOBIN 31.3 pg 25.7-32.2 (BEAKER) (test code = 751) MEAN CORPUSCULAR HEMOGLOBIN CONC 32.8 GM/DL 32.3-36.5 (BEAKER) (test code = 752) RED CELL DISTRIBUTION WIDTH 16.5 % 11.6-14.4 H (BEAKER) (test code = 412) PLATELET COUNT (BEAKER) (test 275 K/CU MM 150-450 code = 756) MEAN PLATELET VOLUME (BEAKER) 8.7 fL 9.4-12.4 L (test code = 754) NUCLEATED RED BLOOD CELLS 0 /100 WBC 0-0 (BEAKER) (test code = 413) NEUTROPHILS RELATIVE PERCENT 76 % (BEAKER) (test code = 429) LYMPHOCYTES RELATIVE PERCENT 16 % (BEAKER) (test code = 430) MONOCYTES RELATIVE PERCENT 6 % (BEAKER) (test code = 431) EOSINOPHILS RELATIVE PERCENT 2 % (BEAKER) (test code = 432) BASOPHILS RELATIVE PERCENT 0 % (BEAKER) (test code = 437) NEUTROPHILS ABSOLUTE COUNT 7.85 K/ L 1.78-5.38 H (BEAKER) (test code = 670) LYMPHOCYTES ABSOLUTE COUNT 1.63 K/ L 1.32-3.57 (BEAKER) (test code = 414) MONOCYTES ABSOLUTE COUNT (BEAKER) 0.61 K/ L 0.30-0.82 (test code = 415) EOSINOPHILS ABSOLUTE COUNT 0.15 K/ L 0.04-0.54 (BEAKER) (test code = 416) BASOPHILS ABSOLUTE COUNT (BEAKER) 0.02 K/ L 0.01-0.08 (test code = 417) IMMATURE GRANULOCYTES-RELATIVE 1 % 0-1 PERCENT (BEAKER) (test code = 2801) RAD, CHEST, 1 VIEW, NON [id number] 18:42:00Reason for exam:->CHEST PAINReason for exam:->FATIGUEReason for exam:->SHORTNESS OF BREATHShould this be performed at the bedside?->Yes [facility] 1970 Sex: MFINAL REPORT TECHNIQUE: Frontal view of the chest. INDICATION: CHEST PAINFATIGUESHORTNESS OF BREATH COMPARISON:08/16/2021 DISCUSSION:Limited evaluation due to portable technique. Lines and hardware: Stable.Heart and mediastinum: Stable cardiomegaly. Central vascular congestive changes are also again noted.Lungs and pleura: Question trace right effusion versus atelectasis. Vascular interstitial prominence is noted diffusely. Negative for pneumothorax.Soft tissues and bones: No acute abnormality. IMPRESSION:Cardiomegaly with vascular congestive changes and interstitial prominence are consistent with fluid overload/pulmonary edema. Question trace right effusion. Signed: Aki Herrera MDReport Verified Date/Time: 09/02/2021 18:42:18 Reading Location: [facility] Reading Room BASI METABOLIC [id number] 12:30:51 Test Item Value Reference Range Interpretation Comments SODIUM (BEAKER) 134 meq/L 136-145 L (test code = 381) POTASSIUM (BEAKER) 3.4 meq/L 3.5-5.1 L (test code = 379) CHLORIDE (BEAKER) 95 meq/L 98-107 L (test code = 382) CO2 (BEAKER) (test 25 meq/L 22-29 code = 355) BLOOD UREA NITROGEN 13 mg/dL 7-21 (BEAKER) (test code = 354) CREATININE (BEAKER) 1.02 mg/dL 0.57-1.25 (test code = 358) GLUCOSE RANDOM 110 mg/dL 70-105 H (BEAKER) (test code = 652) CALCIUM (BEAKER) 9.0 mg/dL 8.4-10.2 (test code = 697) EGFR (BEAKER) (test 77 mL/min/1.73 ESTIMA NEELA GFR IS code = 1092) sq m NOT ACCURATE CREATININE CLEARANCE IN PREDICTING GLOMERULAR FILTRATION RATE . ESTIMATED GFR I S NOT APPLICABLE FOR DIALYSIS PATIEN TS. Stitcher Hand ID - RMB-TYPE NATRIURETIC FACTOR (BNP)2021-09-01 12:29:51 Test Item Value Reference Range Interpretation Comments B-TYPE NATRIURETIC PEPTIDE (BEAKER) 892 pg/mL 0-100 H (test code = 700) Stitcher Hand ID - DBCBC W/PLT COUNT & AUTO [id number] 12:04:41 Test Item Value Reference Range Interpretation Comments WHITE BLOOD CELL COUNT (BEAKER) 9.9 K/ L 3.5-10.5 (test code = 775) RED BLOOD CELL COUNT (BEAKER) 4.12 M/ L 4.63-6.08 L (test code = 761) HEMOGLOBIN (BEAKER) (test code = 13.1 GM/DL 13.7-17.5 L 410) HEMATOCRIT (BEAKER) (test code = 39.3 % 40.1-51.0 L 411) MEAN CORPUSCULAR VOLUME (BEAKER) 95.4 fL 79.0-92.2 H (test code = 753) MEAN CORPUSCULAR HEMOGLOBIN 31.8 pg 25.7-32.2 (BEAKER) (test code = 751) MEAN CORPUSCULAR HEMOGLOBIN CONC 33.3 GM/DL 32.3-36.5 (BEAKER) (test code = 752) RED CELL DISTRIBUTION WIDTH 16.7 % 11.6-14.4 H (BEAKER) (test code = 412) PLATELET COUNT (BEAKER) (test 265 K/CU MM 150-450 code = 756) MEAN PLATELET VOLUME (BEAKER) 8.9 fL 9.4-12.4 L (test code = 754) NUCLEATED RED BLOOD CELLS 0 /100 WBC 0-0 (BEAKER) (test code = 413) NEUTROPHILS RELATIVE PERCENT 80 % (BEAKER) (test code = 429) LYMPHOCYTES RELATIVE PERCENT 12 % (BEAKER) (test code = 430) MONOCYTES RELATIVE PERCENT 6 % (BEAKER) (test code = 431) EOSINOPHILS RELATIVE PERCENT 2 % (BEAKER) (test code = 432) BASOPHILS RELATIVE PERCENT 0 % (BEAKER) (test code = 437) NEUTROPHILS ABSOLUTE COUNT 7.92 K/ L 1.78-5.38 H (BEAKER) (test code = 670) LYMPHOCYTES ABSOLUTE COUNT 1.18 K/ L 1.32-3.57 L (BEAKER) (test code = 414) MONOCYTES ABSOLUTE COUNT (BEAKER) 0.55 K/ L 0.30-0.82 (test code = 415) EOSINOPHILS ABSOLUTE COUNT 0.17 K/ L 0.04-0.54 (BEAKER) (test code = 416) BASOPHILS ABSOLUTE COUNT (BEAKER) 0.02 K/ L 0.01-0.08 (test code = 417) IMMATURE GRANULOCYTES-RELATIVE 1 % 0-1 PERCENT (BEAKER) (test code = 2801) BASIC METABOLIC [id number] 15:54:26 Test Item Value Reference Range Interpretation Comments SODIUM (BEAKER) 132 meq/L 136-145 L (test code = 381) POTASSIUM (BEAKER) 2.6 meq/L 3.5-5.1 LL (test code = 379) CHLORIDE (BEAKER) 82 meq/L 98-107 L (test code = 382) CO2 (BEAKER) (test 33 meq/L 22-29 H code = 355) BLOOD UREA NITROGEN 28 mg/dL 7-21 H (BEAKER) (test code = 354) CREATININE (BEAKER) 1.19 mg/dL 0.57-1.25 (test code = 358) GLUCOSE RANDOM 100 mg/dL 70-105 (BEAKER) (test code = 652) CALCIUM (BEAKER) 10.2 mg/dL 8.4-10.2 (test code = 697) EGFR (BEAKER) (test 65 mL/min/1.73 ESTIMA NEELA GFR IS code = 1092) sq m NOT ACCURATE CREATININE CLEARANCE IN PREDICTING GLOMERULAR FILTRATION RATE . ESTIMATED GFR I S NOT APPLICABLE FOR DIALYSIS PATIEN TS. Stitcher Hand ID - DBB-TYPE NATRIURETIC FACTOR (BNP)[id number] 15:10:38 Test Item Value Reference Range Interpretation Comments B-TYPE NATRIURETIC PEPTIDE (BEAKER) 579 pg/mL 0-100 H (test code = 700) Stitcher Hand ID - DBCBC W/PLT COUNT & AUTO [id number] 14:45:38 Test Item Value Reference Range Interpretation Comments WHITE BLOOD CELL COUNT (BEAKER) 9.8 K/ L 3.5-10.5 (test code = 775) RED BLOOD CELL COUNT (BEAKER) 4.11 M/ L 4.63-6.08 L (test code = 761) HEMOGLOBIN (BEAKER) (test code = 12.7 GM/DL 13.7-17.5 L 410) HEMATOCRIT (BEAKER) (test code = 38.7 % 40.1-51.0 L 411) MEAN CORPUSCULAR VOLUME (BEAKER) 94.2 fL 79.0-92.2 H (test code = 753) MEAN CORPUSCULAR HEMOGLOBIN 30.9 pg 25.7-32.2 (BEAKER) (test code = 751) MEAN CORPUSCULAR HEMOGLOBIN CONC 32.8 GM/DL 32.3-36.5 (BEAKER) (test code = 752) RED CELL DISTRIBUTION WIDTH 17.2 % 11.6-14.4 H (BEAKER) (test code = 412) PLATELET COUNT (BEAKER) (test 335 K/CU MM 150-450 code = 756) MEAN PLATELET VOLUME (BEAKER) 8.7 fL 9.4-12.4 L (test code = 754) NUCLEATED RED BLOOD CELLS 0 /100 WBC 0-0 (BEAKER) (test code = 413) NEUTROPHILS RELATIVE PERCENT 79 % (BEAKER) (test code = 429) LYMPHOCYTES RELATIVE PERCENT 12 % (BEAKER) (test code = 430) MONOCYTES RELATIVE PERCENT 7 % (BEAKER) (test code = 431) EOSINOPHILS RELATIVE PERCENT 2 % (BEAKER) (test code = 432) BASOPHILS RELATIVE PERCENT 0 % (BEAKER) (test code = 437) NEUTROPHILS ABSOLUTE COUNT 7.68 K/ L 1.78-5.38 H (BEAKER) (test code = 670) LYMPHOCYTES ABSOLUTE COUNT 1.14 K/ L 1.32-3.57 L (BEAKER) (test code = 414) MONOCYTES ABSOLUTE COUNT (BEAKER) 0.72 K/ L 0.30-0.82 (test code = 415) EOSINOPHILS ABSOLUTE COUNT 0.17 K/ L 0.04-0.54 (BEAKER) (test code = 416) BASOPHILS ABSOLUTE COUNT (BEAKER) 0.03 K/ L 0.01-0.08 (test code = 417) IMMATURE GRANULOCYTES-RELATIVE 1 % 0-1 PERCENT (BEAKER) (test code = 2801) [id number] 08:29:09 Test Item Value Reference Range Interpretation Comments MAGNESIUM (BEAKER) (test code = 2.8 mg/dL 1.6-2.6 H 627) Stitcher Hand ID - [id number] 08:29:09 Test Item Value Reference Range Interpretation Comments POTASSIUM (BEAKER) (test code = 2.9 meq/L 3.5-5.1 L 379) Stitcher Hand ID - DBBASIC METABOLIC [id number] 02:50:46 Test Item Value Reference Range Interpretation Comments SODIUM (BEAKER) 133 meq/L 136-145 L (test code = 381) POTASSIUM (BEAKER) 2.5 meq/L 3.5-5.1 LL (test code = 379) CHLORIDE (BEAKER) 87 meq/L 98-107 L (test code = 382) CO2 (BEAKER) (test 31 meq/L 22-29 H code = 355) BLOOD UREA NITROGEN 31 mg/dL 7-21 H (BEAKER) (test code = 354) CREATININE (BEAKER) 0.92 mg/dL 0.57-1.25 (test code = 358) GLUCOSE RANDOM 105 mg/dL 70-105 (BEAKER) (test code = 652) CALCIUM (BEAKER) 9.7 mg/dL 8.4-10.2 (test code = 697) EGFR (BEAKER) (test 87 mL/min/1.73 ESTIMA NEELA GFR IS code = 1092) sq m NOT ACCURATE CREATININE CLEARANCE IN PREDICTING GLOMERULAR FILTRATION RATE . ESTIMATED GFR I S NOT APPLICABLE FOR DIALYSIS PATIEN TS. Stitcher Hand ID - FAUZIA [id number] 02:45:37 Test Item Value Reference Range Interpretation Comments MAGNESIUM (BEAKER) (test code = 1.9 mg/dL 1.6-2.6 627) Stitcher Hand ID - FAUZIA WCBC W/PLT COUNT & AUTO [id number] 02:19:33 Test Item Value Reference Range Interpretation Comments WHITE BLOOD CELL COUNT (BEAKER) 7.1 K/ L 3.5-10.5 (test code = 775) RED BLOOD CELL COUNT (BEAKER) 3.44 M/ L 4.63-6.08 L (test code = 761) HEMOGLOBIN (BEAKER) (test code = 10.7 GM/DL 13.7-17.5 L 410) HEMATOCRIT (BEAKER) (test code = 32.5 % 40.1-51.0 L 411) MEAN CORPUSCULAR VOLUME (BEAKER) 94.5 fL 79.0-92.2 H (test code = 753) MEAN CORPUSCULAR HEMOGLOBIN 31.1 pg 25.7-32.2 (BEAKER) (test code = 751) MEAN CORPUSCULAR HEMOGLOBIN CONC 32.9 GM/DL 32.3-36.5 (BEAKER) (test code = 752) RED CELL DISTRIBUTION WIDTH 17.3 % 11.6-14.4 H (BEAKER) (test code = 412) PLATELET COUNT (BEAKER) (test 268 K/CU MM 150-450 code = 756) MEAN PLATELET VOLUME (BEAKER) 8.7 fL 9.4-12.4 L (test code = 754) NUCLEATED RED BLOOD CELLS 0 /100 WBC 0-0 (BEAKER) (test code = 413) NEUTROPHILS RELATIVE PERCENT 75 % (BEAKER) (test code = 429) LYMPHOCYTES RELATIVE PERCENT 15 % (BEAKER) (test code = 430) MONOCYTES RELATIVE PERCENT 6 % (BEAKER) (test code = 431) EOSINOPHILS RELATIVE PERCENT 3 % (BEAKER) (test code = 432) BASOPHILS RELATIVE PERCENT 0 % (BEAKER) (test code = 437) NEUTROPHILS ABSOLUTE COUNT 5.31 K/ L 1.78-5.38 (BEAKER) (test code = 670) LYMPHOCYTES ABSOLUTE COUNT 1.06 K/ L 1.32-3.57 L (BEAKER) (test code = 414) MONOCYTES ABSOLUTE COUNT (BEAKER) 0.45 K/ L 0.30-0.82 (test code = 415) EOSINOPHILS ABSOLUTE COUNT 0.19 K/ L 0.04-0.54 (BEAKER) (test code = 416) BASOPHILS ABSOLUTE COUNT (BEAKER) 0.01 K/ L 0.01-0.08 (test code = 417) IMMATURE GRANULOCYTES-RELATIVE 1 % 0-1 PERCENT (BEAKER) (test code = 2801) BASIC METABOLIC [id number] 18:05:28 Test Item Value Reference Range Interpretation Comments SODIUM (BEAKER) 130 meq/L 136-145 L (test code = 381) POTASSIUM (BEAKER) 2.4 meq/L 3.5-5.1 LL Specimen slightly (test code = 379) hemolyzed CHLORIDE (BEAKER) 83 meq/L 98-107 L (test code = 382) CO2 (BEAKER) (test 31 meq/L 22-29 H code = 355) BLOOD UREA NITROGEN 33 mg/dL 7-21 H (BEAKER) (test code = 354) CREATININE (BEAKER) 1.13 mg/dL 0.57-1.25 Specimen slightly (test code = 358) hemolyzed GLUCOSE RANDOM 128 mg/dL 70-105 H (BEAKER) (test code = 652) CALCIUM (BEAKER) 9.8 mg/dL 8.4-10.2 (test code = 697) EGFR (BEAKER) (test 69 mL/min/1.73 ESTIMA NEELA GFR IS code = 1092) sq m NOT ACCURATE CREATININE CLEARANCE IN PREDICTING GLOMERULAR FILTRATION RATE . ESTIMATED GFR I S NOT APPLICABLE FOR DIALYSIS PATIEN TS. Stitcher Hand ID - ISREAL GLACTIC ACID, [id number] 17:57:13 Test Item Value Reference Range Interpretation Comments LACTATE BLOOD VENOUS 2.06 mmol/L 0.50-2.20 Specime n slightly (2) (BEAKER) (test hemolyzed code = 1838) Stitcher Hand ID - ISRELA GCBC W/PLT COUNT & AUTO [id number] 17:44:32 Test Item Value Reference Range Interpretation Comments WHITE BLOOD CELL COUNT (BEAKER) 9.3 K/ L 3.5-10.5 (test code = 775) RED BLOOD CELL COUNT (BEAKER) 3.67 M/ L 4.63-6.08 L (test code = 761) HEMOGLOBIN (BEAKER) (test code = 11.5 GM/DL 13.7-17.5 L 410) HEMATOCRIT (BEAKER) (test code = 34.2 % 40.1-51.0 L 411) MEAN CORPUSCULAR VOLUME (BEAKER) 93.2 fL 79.0-92.2 H (test code = 753) MEAN CORPUSCULAR HEMOGLOBIN 31.3 pg 25.7-32.2 (BEAKER) (test code = 751) MEAN CORPUSCULAR HEMOGLOBIN CONC 33.6 GM/DL 32.3-36.5 (BEAKER) (test code = 752) RED CELL DISTRIBUTION WIDTH 17.1 % 11.6-14.4 H (BEAKER) (test code = 412) PLATELET COUNT (BEAKER) (test 315 K/CU MM 150-450 code = 756) MEAN PLATELET VOLUME (BEAKER) 8.7 fL 9.4-12.4 L (test code = 754) NUCLEATED RED BLOOD CELLS 0 /100 WBC 0-0 (BEAKER) (test code = 413) NEUTROPHILS RELATIVE PERCENT 75 % (BEAKER) (test code = 429) LYMPHOCYTES RELATIVE PERCENT 16 % (BEAKER) (test code = 430) MONOCYTES RELATIVE PERCENT 6 % (BEAKER) (test code = 431) EOSINOPHILS RELATIVE PERCENT 2 % (BEAKER) (test code = 432) BASOPHILS RELATIVE PERCENT 0 % (BEAKER) (test code = 437) NEUTROPHILS ABSOLUTE COUNT 6.95 K/ L 1.78-5.38 H (BEAKER) (test code = 670) LYMPHOCYTES ABSOLUTE COUNT 1.44 K/ L 1.32-3.57 (BEAKER) (test code = 414) MONOCYTES ABSOLUTE COUNT (BEAKER) 0.59 K/ L 0.30-0.82 (test code = 415) EOSINOPHILS ABSOLUTE COUNT 0.19 K/ L 0.04-0.54 (BEAKER) (test code = 416) BASOPHILS ABSOLUTE COUNT (BEAKER) 0.02 K/ L 0.01-0.08 (test code = 417) IMMATURE GRANULOCYTES-RELATIVE 1 % 0-1 PERCENT (BEAKER) (test code = 2801) [id number] 17:40:54 Test Item Value Reference Range Interpretation Comments MAGNESIUM (BEAKER) 1.7 mg/dL 1.6-2.6 Specimen slightly (test code = 627) hemolyzed Stitcher Hand ID - ISREAL GBASIC METABOLIC [id number] 14:57:55 Test Item Value Reference Range Interpretation Comments SODIUM (BEAKER) 129 meq/L 136-145 L (test code = 381) POTASSIUM (BEAKER) 2.1 meq/L 3.5-5.1 LL Specimen slightly (test code = 379) hemolyzed CHLORIDE (BEAKER) 82 meq/L 98-107 L (test code = 382) CO2 (BEAKER) (test 31 meq/L 22-29 H code = 355) BLOOD UREA NITROGEN 34 mg/dL 7-21 H (BEAKER) (test code = 354) CREATININE (BEAKER) 1.03 mg/dL 0.57-1.25 Specimen slightly (test code = 358) hemolyzed GLUCOSE RANDOM 143 mg/dL 70-105 H (BEAKER) (test code = 652) CALCIUM (BEAKER) 9.5 mg/dL 8.4-10.2 (test code = 697) EGFR (BEAKER) (test 76 mL/min/1.73 ESTIMA NEELA GFR IS code = 1092) sq m NOT ACCURATE CREATININE CLEARANCE IN PREDICTING GLOMERULAR FILTRATION RATE . ESTIMATED GFR I S NOT APPLICABLE FOR DIALYSIS PATIEN TS. Stitcher Hand ID - ISREAL GSARS-COV2/RT-PCR ([facility])2021-08-16 13:07:01 Test Item Value Reference Range Interpretation Comments SARS-COV2/RT-PCR Negative Negative The SARS-Co V-2 target (test code = nucleic acids a re not [id number]) detected in thi s specimen. Negative result s do not preclude SARS-C oV-2 infection and s hould not be used as the ludmila e basis for patient managem ent decisions. Nega tive results must be combine d with clinical observ ations, patient history , and epidemiological information. A false negativ e result may occur if a spec imen is improperly gia ected, transported or handled. This SARS CoV-2 test is a rapid, real-time RT-PC R test intended for th e qualitative detection of nu cleic acid from SARS-CoV-2 in a nasopharyngeal swab specimen collected from individuals suspected of CO VID-19 by their healthcar e provider. This test has been authorized by FDA under an EUA for use by authorized laboratories. This test is only authorized for the duration of the declaration that circumstances exist justifying the authorization of emergency use of in vitro diagnostic tests for detection and/or diagnosis of COVID-19 under Section 564(b)(1) of the Federal Food, Drug and Cosmetic Act, 21 U.S.C. 360bbb-3(b)(1), unless the authorization is terminated or revoked sooner. Fact Sheet for Healthcare Providers: https://www.[employer]/Documents/Xpert%20Xpress%20SARS%20CoV-2/Fact%20Sheets/302-3802%88BZQR-TTR-6%20 HEALTHCARE%20PROVIDERS%20FACT%20SHEET.pdf Fact Sheet for Healthcare Patients: https://www.[employer]/Documents/Xpert%20Xp ress%20SARS%20CoV-2/Fact%20Sheets/302-3801%12PGWI-WOS-5%20PATIENT%20FACT%20SHEET .pdfURINALYSIS W/ [id number] 12:52:41 Test Item Value Reference Range Interpretation Comments COLOR (BEAKER) (test code = 470) Light Yellow CLARITY (BEAKER) (test code = Clear 469) SPECIFIC GRAVITY UA (BEAKER) 1.010 1.001-1.035 (test code = 468) PH UA (BEAKER) (test code = 467) 6.5 5.0-8.0 PROTEIN UA (BEAKER) (test code = Negative Negative 464) GLUCOSE UA (BEAKER) (test code = Negative Negative 365) KETONES UA (BEAKER) (test code = Negative Negative 371) BILIRUBIN UA (BEAKER) (test code Negative Negative = 462) BLOOD UA (BEAKER) (test code = Negative Negative 461) NITRITE UA (BEAKER) (test code = Negative Negative 465) LEUKOCYTE ESTERASE UA (BEAKER) Negative Negative (test code = 466) UROBILINOGEN UA (BEAKER) (test 0.2 mg/dL 0.2-1.0 code = 463) RBC UA (BEAKER) (test code = 0 /HPF 519) WBC UA (BEAKER) (test code = 1 /HPF 520) BACTERIA (BEAKER) (test code = None Seen 517) HYALINE CASTS (BEAKER) (test 4 /LPF code = 514) CRYSTALS, URINE (BEAKER) (test None Seen code = 1521) SOURCE(BEAKER) (test code = 2795) Stitcher Hand ID - [auto]Stitcher Hand ID - techCBC W/PLT COUNT & AUTO DIFFERENTIAL 2021-08-16 12:34:49 Test Item Value Reference Range Interpretation Comments WHITE BLOOD CELL COUNT (BEAKER) 10.6 K/ L 3.5-10.5 H (test code = 775) RED BLOOD CELL COUNT (BEAKER) 3.74 M/ L 4.63-6.08 L (test code = 761) HEMOGLOBIN (BEAKER) (test code = 11.5 GM/DL 13.7-17.5 L 410) HEMATOCRIT (BEAKER) (test code = 34.3 % 40.1-51.0 L 411) MEAN CORPUSCULAR VOLUME (BEAKER) 91.7 fL 79.0-92.2 (test code = 753) MEAN CORPUSCULAR HEMOGLOBIN 30.7 pg 25.7-32.2 (BEAKER) (test code = 751) MEAN CORPUSCULAR HEMOGLOBIN CONC 33.5 GM/DL 32.3-36.5 (BEAKER) (test code = 752) RED CELL DISTRIBUTION WIDTH 17.1 % 11.6-14.4 H (BEAKER) (test code = 412) PLATELET COUNT (BEAKER) (test 348 K/CU MM 150-450 code = 756) MEAN PLATELET VOLUME (BEAKER) 8.8 fL 9.4-12.4 L (test code = 754) NUCLEATED RED BLOOD CELLS 0 /100 WBC 0-0 (BEAKER) (test code = 413) NEUTROPHILS RELATIVE PERCENT 82 % (BEAKER) (test code = 429) LYMPHOCYTES RELATIVE PERCENT 11 % (BEAKER) (test code = 430) MONOCYTES RELATIVE PERCENT 5 % (BEAKER) (test code = 431) EOSINOPHILS RELATIVE PERCENT 1 % (BEAKER) (test code = 432) BASOPHILS RELATIVE PERCENT 0 % (BEAKER) (test code = 437) NEUTROPHILS ABSOLUTE COUNT 8.73 K/ L 1.78-5.38 H (BEAKER) (test code = 670) LYMPHOCYTES ABSOLUTE COUNT 1.13 K/ L 1.32-3.57 L (BEAKER) (test code = 414) MONOCYTES ABSOLUTE COUNT (BEAKER) 0.57 K/ L 0.30-0.82 (test code = 415) EOSINOPHILS ABSOLUTE COUNT 0.11 K/ L 0.04-0.54 (BEAKER) (test code = 416) BASOPHILS ABSOLUTE COUNT (BEAKER) 0.02 K/ L 0.01-0.08 (test code = 417) IMMATURE GRANULOCYTES-RELATIVE 1 % 0-1 PERCENT (BEAKER) (test code = 2801) RAD, CHEST, 1 VIEW, NON [id number] 12:22:00Reason for exam:- >SEIZURESShould this be performed at the bedside?->Yes [facility] 1970 Sex: MFINAL REPORT HISTORY: Seizures COMPARISON: 07/22/2021 FINDINGS: The lungs are clear.No pleural effusions or pneumothorax. The heart shadow is enlarged, unchanged. Left subclavian transvenous cardiac pacing hardware remains in place. The distal course of the right jugular central venous catheter is difficult to visualize. Multiple overlying external cardiac monitoring leads are present. No acute skeletal abnormalities are identified. IMPRESSION: No evidence of acute cardiopulmonary disease. Signed: Maya Arroyo Verified Date/Time: 08/16/2021 12:22:40 Reading Location: [address] Transitional Reading Room TSH/FREE T4 IF [id number] 12:11:54 Test Item Value Reference Range Interpretation Comments THYROID STIMULATING HORMONE 2.399 uIU/mL 0.350-4.940 (BEAKER) (test code = 772) Stitcher Hand ID - ISREAL GHIGH SENSITIVITY TROPONIN [id number] 12:02:50 Test Item Value Reference Range Interpretation Comments HIGH SENSITIVITY 62 pg/ml See_Comment H [Automated message] TROPONIN I (test code = The system which [id number]) generated this result transmitted ref erence range: <=35. Th e reference range was not used to int erpret this result as normal/abnormal . Stitcher Hand ID - ISREAL GThe BEESWAX BLEACHER STAT High Sensitivity Troponin-I results should be used in conjunction with other diagnostic information such as ECG, clinical observations and information, and patient symptoms to aid in the diagnosis of PR.B-TYPE NATRIURETIC FACTOR (BNP)2021-08-16 11:56:55 Test Item Value Reference Range Interpretation Comments B-TYPE NATRIURETIC PEPTIDE (BEAKER) 451 pg/mL 0-100 H (test code = 700) Stitcher Hand ID - ISREAL GCOMPREHENSIVE METABOLIC [id number] 11:33:04 Test Item Value Reference Range Interpretation Comments TOTAL PROTEIN 7.7 gm/dL 6.0-8.3 Specimen sligh tly (BEAKER) (test code = hemoly zed 770) ALBUMIN (BEAKER) 4.2 g/dL 3.5-5.0 Specimen sl ightly (test code = 1145) hemolyzed ALKALINE PHOSPHATASE 131 U/L 40-150 (BEAKER) (test code = 346) BILIRUBIN TOTAL 0.7 mg/dL 0.2-1.2 Specimen sli ghtly (BEAKER) (test code = hemoly zed 377) SODIUM (BEAKER) (test 128 meq/L 136-145 L code = 381) POTASSIUM (BEAKER) 1.9 meq/L 3.5-5.1 LL Specimen slightly (test code = 379) hemolyzed CHLORIDE (BEAKER) 82 meq/L 98-107 L (test code = 382) CO2 (BEAKER) (test 28 meq/L 22-29 code = 355) BLOOD UREA NITROGEN 34 mg/dL 7-21 H (BEAKER) (test code = 354) CREATININE (BEAKER) 1.20 mg/dL 0.57-1.25 Specimen slightly (test code = 358) hemolyzed GLUCOSE RANDOM 155 mg/dL 70-105 H (BEAKER) (test code = 652) CALCIUM (BEAKER) 9.7 mg/dL 8.4-10.2 (test code = 697) AST (SGOT) (BEAKER) 24 U/L 5-34 Specimen slightly (test code = 353) hemolyzed ALT (SGPT) (BEAKER) 22 U/L 6-55 Specimen slightly (test code = 347) hemolyzed EGFR (BEAKER) (test 64 mL/min/1.73 ESTIMA NEELA GFR IS code = 1092) sq m NOT ACCURATE CREATININE CLEARANCE IN PREDICTING GLOMERULAR FILTRATION RATE . ESTIMATED GFR I S NOT APPLICABLE FOR DIALYSIS PATIEN TS. Stitcher Hand ID - DBPROTHROMBIN TIME/[id number] 11:00:03 Test Item Value Reference Range Interpretation Comments PROTIME (BEAKER) 15.2 seconds 11.9-14.2 H (test code = 759) INR (BEAKER) (test 1.22 See_Comment [Automat ed message] code = 370) The system g4interactive generated this result transmitted ref erence range: <=5.90. The reference range was not used to int erpret this result as normal/abnormal . RECOMMENDED COUMADIN/WARFARIN INR THERAPY RANGESSTANDARD DOSE: 2.0 - 3.0 Includes: PROPHYLAXIS for venous thrombosis, systemic embolization; TREATMENT for venous thrombosis and/or pulmonary embolus.HIGH RISK: Target INR is 2.5-3.5 for patients with mechanical heart valves.CT, BRAIN, WITHOUT [id number] 10:56:00Unlisted Reason for Exam - Click Yes and Enter Reason Below->No [facility] : 1970 Sex: MFINAL REPORT CT, BRAIN, WITHOUT CONTRAST INDICATION: Seizure, normal neuro exam ([id number]) TECHNIQUE: Noncontrast axial imaging was obtained from the vertex to the skull base. Axial images were reconstructed using a bone algorithm. DOSE REDUCTION: Dose modulation, iterative reconstruction, and/or weight-based adjustment of the mA/kV was utilized to reduce the radiation dose to as lowas reasonably achievable. COMPARISON: CT 07/29/2021 FINDINGS: Intracranial: No intracranial hemorrhage or abnormal extra-axial collection. No evidence of acute territorial infarct. No mass effect. No hydrocephalus. Generalized cerebral atrophy with ex vacuo dilatation of the ventricular system proportionate to sulci. Scattered foci of hypoattenuation within the periventricular and subcortical white matter are a nonspecific finding commonly attributed to chronic small vessel ischemic disease. Osseousstructures: No fracture. No suspicious lesion. Paranasal sinuses and mastoid air cells: No evidence of sinusitis. Mastoids are clear. Orbital contents: Globes are intact. IMPRESSION: No acute intracranial hemorrhage or CT evidence of territorial infarct. If there is persistent clinical concern for intracranial pathology, MR examination is recommended for further characterization. Signed: Tom Washington Verified Date/Time: 08/16/2021 10:56:35 HIGH SENSITIVITY TROPONIN I 2021-08-16 10:43:57 Test Item Value Reference Range Interpretation Comments HIGH SENSITIVITY 40 pg/ml See_Comment H [Automated message] TROPONIN I (test code = The system which [id number]) generated this result transmitted ref erence range: <=35. Th e reference range was not used to int erpret this result as normal/abnormal . Stitcher Hand ID - DBThe BEESWAX BLEACHER STAT High Sensitivity Troponin-I results should be used in conjunctionwith other diagnostic information such as ECG, clinical observations and information, and patient symptoms to aid in the diagnosis of PR.[id number] 10:43:41 Test Item Value Reference Range Interpretation Comments MAGNESIUM (BEAKER) 1.8 mg/dL 1.6-2.6 Specimen slightly (test code = 627) hemolyzed Stitcher Hand ID - [id number] 10:43:41 Test Item Value Reference Range Interpretation Comments PHOSPHORUS (BEAKER) 2.6 mg/dL 2.3-4.7 Specimen slightly (test code = 604) hemolyzed Stitcher Hand ID - DBLACTIC ACID, [id number] 10:36:36 Test Item Value Reference Range Interpretation Comments LACTATE BLOOD VENOUS 3.53 mmol/L 0.50-2.20 H Specime n markedly (2) (BEAKER) (test hemolyzed code = 2872) Stitcher Hand ID - DBCBC W/PLT COUNT & AUTO [id number] 10:31:12 Test Item Value Reference Range Interpretation Comments WHITE BLOOD CELL COUNT (BEAKER) 14.0 K/ L 3.5-10.5 H (test code = 775) RED BLOOD CELL COUNT (BEAKER) 1.57 M/ L 4.63-6.08 L (test code = 761) HEMOGLOBIN (BEAKER) (test code = 5.0 GM/DL 13.7-17.5 LL 410) HEMATOCRIT (BEAKER) (test code = 14.8 % 40.1-51.0 L 411) MEAN CORPUSCULAR VOLUME (BEAKER) 94.3 fL 79.0-92.2 H (test code = 753) MEAN CORPUSCULAR HEMOGLOBIN 31.8 pg 25.7-32.2 (BEAKER) (test code = 751) MEAN CORPUSCULAR HEMOGLOBIN CONC 33.8 GM/DL 32.3-36.5 (BEAKER) (test code = 752) RED CELL DISTRIBUTION WIDTH 17.2 % 11.6-14.4 H (BEAKER) (test code = 412) PLATELET COUNT (BEAKER) (test 510 K/CU MM 150-450 H code = 756) MEAN PLATELET VOLUME (BEAKER) 9.1 fL 9.4-12.4 L (test code = 754) NUCLEATED RED BLOOD CELLS 0 /100 WBC 0-0 (BEAKER) (test code = 413) NEUTROPHILS RELATIVE PERCENT 87 % (BEAKER) (test code = 429) LYMPHOCYTES RELATIVE PERCENT 7 % (BEAKER) (test code = 430) MONOCYTES RELATIVE PERCENT 5 % (BEAKER) (test code = 431) EOSINOPHILS RELATIVE PERCENT 1 % (BEAKER) (test code = 432) BASOPHILS RELATIVE PERCENT 0 % (BEAKER) (test code = 437) NEUTROPHILS ABSOLUTE COUNT 12.14 K/ L 1.78-5.38 H (BEAKER) (test code = 670) LYMPHOCYTES ABSOLUTE COUNT 0.95 K/ L 1.32-3.57 L (BEAKER) (test code = 414) MONOCYTES ABSOLUTE COUNT (BEAKER) 0.69 K/ L 0.30-0.82 (test code = 415) EOSINOPHILS ABSOLUTE COUNT 0.09 K/ L 0.04-0.54 (BEAKER) (test code = 416) BASOPHILS ABSOLUTE COUNT (BEAKER) 0.01 K/ L 0.01-0.08 (test code = 417) IMMATURE GRANULOCYTES-RELATIVE 1 % 0-1 PERCENT (BEAKER) (test code = 2801) [id number] 15:32:22 Test Item Value Reference Range Interpretation Comments PHOSPHORUS (BEAKER) 3.5 mg/dL 2.3-4.7 Specimen slightly (test code = 604) hemolyzed Stitcher Hand ID - DBBASIC METABOLIC [id number] 15:32:22 Test Item Value Reference Range Interpretation Comments SODIUM (BEAKER) 127 meq/L 136-145 L (test code = 381) POTASSIUM (BEAKER) 5.3 meq/L 3.5-5.1 H Specimen slightly (test code = 379) hemolyzed CHLORIDE (BEAKER) 91 meq/L 98-107 L (test code = 382) CO2 (BEAKER) (test 24 meq/L 22-29 code = 355) BLOOD UREA NITROGEN 17 mg/dL 7-21 (BEAKER) (test code = 354) CREATININE (BEAKER) 1.03 mg/dL 0.57-1.25 Specimen slightly (test code = 358) hemolyzed GLUCOSE RANDOM 121 mg/dL 70-105 H (BEAKER) (test code = 652) CALCIUM (BEAKER) 9.4 mg/dL 8.4-10.2 (test code = 697) EGFR (BEAKER) (test 76 mL/min/1.73 ESTIMA NEELA GFR IS code = 1092) sq m NOT ACCURATE CREATININE CLEARANCE IN PREDICTING GLOMERULAR FILTRATION RATE . ESTIMATED GFR I S NOT APPLICABLE FOR DIALYSIS PATIEN TS. Stitcher Hand ID - [id number] 15:32:21 Test Item Value Reference Range Interpretation Comments MAGNESIUM (BEAKER) 2.0 mg/dL 1.6-2.6 Specimen slightly (test code = 627) hemolyzed Stitcher Hand ID - DBOXYGEN SATURATION, [id number] 05:21:29 Test Item Value Reference Range Interpretation Comments O2 SATURATION (MEASURED) (BEAKER) 61.3 % (test code = 1455) BASIC METABOLIC [id number] 05:14:12 Test Item Value Reference Range Interpretation Comments SODIUM (BEAKER) 130 meq/L 136-145 L (test code = 381) POTASSIUM (BEAKER) 4.5 meq/L 3.5-5.1 Specimen slightly (test code = 379) hemolyzed CHLORIDE (BEAKER) 93 meq/L 98-107 L (test code = 382) CO2 (BEAKER) (test 25 meq/L 22-29 code = 355) BLOOD UREA NITROGEN 13 mg/dL 7-21 (BEAKER) (test code = 354) CREATININE (BEAKER) 0.83 mg/dL 0.57-1.25 Specimen slightly (test code = 358) hemolyzed GLUCOSE RANDOM 117 mg/dL 70-105 H (BEAKER) (test code = 652) CALCIUM (BEAKER) 9.6 mg/dL 8.4-10.2 (test code = 697) EGFR (BEAKER) (test 98 mL/min/1.73 ESTIMA NEELA GFR IS code = 1092) sq m NOT ACCURATE CREATININE CLEARANCE IN PREDICTING GLOMERULAR FILTRATION RATE . ESTIMATED GFR I S NOT APPLICABLE FOR DIALYSIS PATIEN TS. Stitcher Hand ID - SO MHEPATIC FUNCTION [id number] 05:14:12 Test Item Value Reference Range Interpretation Comments TOTAL PROTEIN (BEAKER) 7.0 gm/dL 6.0-8.3 Speci men slightly (test code = 770) hemolyzed ALBUMIN (BEAKER) (test 3.6 g/dL 3.5-5.0 Speci men slightly code = 1145) hemolyzed BILIRUBIN TOTAL 0.8 mg/dL 0.2-1.2 Specimen sli ghtly (BEAKER) (test code = hemoly zed 377) BILIRUBIN DIRECT 0.4 mg/dL 0.1-0.5 Specimen sl ightly (BEAKER) (test code = hemoly zed 706) ALKALINE PHOSPHATASE 136 U/L 40-150 (BEAKER) (test code = 346) AST (SGOT) (BEAKER) 21 U/L 5-34 Specimen slightly (test code = 353) hemolyzed ALT (SGPT) (BEAKER) 22 U/L 6-55 Specimen slightly (test code = 347) hemolyzed Stitcher Hand ID - SO [id number] 05:14:11 Test Item Value Reference Range Interpretation Comments MAGNESIUM (BEAKER) 1.9 mg/dL 1.6-2.6 Specimen slightly (test code = 627) hemolyzed Stitcher Hand ID - SO [id number] 05:14:11 Test Item Value Reference Range Interpretation Comments PHOSPHORUS (BEAKER) 2.6 mg/dL 2.3-4.7 Specimen slightly (test code = 604) hemolyzed Stitcher Hand ID - SO MLACTIC ACID, [id number] 05:01:18 Test Item Value Reference Range Interpretation Comments LACTATE BLOOD VENOUS 1.47 mmol/L 0.50-2.20 Specime n slightly (2) (BEAKER) (test hemolyzed code = 2872) Stitcher Hand ID - SO [facility] (HEMOGRAM ONLY)[id number] 05:00:09 Test Item Value Reference Range Interpretation Comments WHITE BLOOD CELL COUNT (BEAKER) 8.3 K/ L 3.5-10.5 (test code = 775) RED BLOOD CELL COUNT (BEAKER) 3.15 M/ L 4.63-6.08 L (test code = 761) HEMOGLOBIN (BEAKER) (test code = 9.7 GM/DL 13.7-17.5 L 410) HEMATOCRIT (BEAKER) (test code = 30.7 % 40.1-51.0 L 411) MEAN CORPUSCULAR VOLUME (BEAKER) 97.5 fL 79.0-92.2 H (test code = 753) MEAN CORPUSCULAR HEMOGLOBIN 30.8 pg 25.7-32.2 (BEAKER) (test code = 751) MEAN CORPUSCULAR HEMOGLOBIN CONC 31.6 GM/DL 32.3-36.5 L (BEAKER) (test code = 752) RED CELL DISTRIBUTION WIDTH 18.6 % 11.6-14.4 H (BEAKER) (test code = 412) PLATELET COUNT (BEAKER) (test 277 K/CU MM 150-450 code = 756) MEAN PLATELET VOLUME (BEAKER) 9.4 fL 9.4-12.4 (test code = 754) NUCLEATED RED BLOOD CELLS 0 /100 WBC 0-0 (BEAKER) (test code = 413) [id number] 23:01:13 Test Item Value Reference Range Interpretation Comments POTASSIUM (BEAKER) 4.1 meq/L 3.5-5.1 Specimen slightly (test code = 379) hemolyzed Stitcher Hand ID - [id number] 20:25:55 Test Item Value Reference Range Interpretation Comments PHOSPHORUS (BEAKER) (test code = 3.1 mg/dL 2.3-4.7 604) Stitcher Hand ID - SOCO LBASIC METABOLIC [id number] 20:25:54 Test Item Value Reference Range Interpretation Comments SODIUM (BEAKER) 128 meq/L 136-145 L (test code = 381) POTASSIUM (BEAKER) 3.5 meq/L 3.5-5.1 (test code = 379) CHLORIDE (BEAKER) 88 meq/L 98-107 L (test code = 382) CO2 (BEAKER) (test 27 meq/L 22-29 code = 355) BLOOD UREA NITROGEN 14 mg/dL 7-21 (BEAKER) (test code = 354) CREATININE (BEAKER) 0.95 mg/dL 0.57-1.25 (test code = 358) GLUCOSE RANDOM 148 mg/dL 70-105 H (BEAKER) (test code = 652) CALCIUM (BEAKER) 9.3 mg/dL 8.4-10.2 (test code = 697) EGFR (BEAKER) (test 84 mL/min/1.73 ESTIMA NEELA GFR IS code = 1092) sq m NOT ACCURATE CREATININE CLEARANCE IN PREDICTING GLOMERULAR FILTRATION RATE . ESTIMATED GFR I S NOT APPLICABLE FOR DIALYSIS PATIEN TS. Stitcher Hand ID - SOCO [id number] 20:25:54 Test Item Value Reference Range Interpretation Comments MAGNESIUM (BEAKER) (test code = 2.2 mg/dL 1.6-2.6 627) Stitcher Hand ID - SOCO [id number] 15:47:09 Test Item Value Reference Range Interpretation Comments MAGNESIUM (BEAKER) (test code = 2.1 mg/dL 1.6-2.6 627) Stitcher Hand ID - SOCO [id number] 15:47:09 Test Item Value Reference Range Interpretation Comments POTASSIUM (BEAKER) (test code = 3.6 meq/L 3.5-5.1 379) Stitcher Hand ID - SOCO LBASIC METABOLIC [id number] 12:24:13 Test Item Value Reference Range Interpretation Comments SODIUM (BEAKER) 127 meq/L 136-145 L (test code = 381) POTASSIUM (BEAKER) 3.5 meq/L 3.5-5.1 (test code = 379) CHLORIDE (BEAKER) 87 meq/L 98-107 L (test code = 382) CO2 (BEAKER) (test 30 meq/L 22-29 H code = 355) BLOOD UREA NITROGEN 14 mg/dL 7-21 (BEAKER) (test code = 354) CREATININE (BEAKER) 0.97 mg/dL 0.57-1.25 (test code = 358) GLUCOSE RANDOM 158 mg/dL 70-105 H (BEAKER) (test code = 652) CALCIUM (BEAKER) 8.8 mg/dL 8.4-10.2 (test code = 697) EGFR (BEAKER) (test 82 mL/min/1.73 ESTIMA NEELA GFR IS code = 1092) sq m NOT ACCURATE CREATININE CLEARANCE IN PREDICTING GLOMERULAR FILTRATION RATE . ESTIMATED GFR I S NOT APPLICABLE FOR DIALYSIS PATIEN TS. Stitcher Hand ID - SOCO LOperator ID - SOCO [id number] 12:12:10 Test Item Value Reference Range Interpretation Comments PHOSPHORUS (BEAKER) (test code = 2.7 mg/dL 2.3-4.7 604) Stitcher Hand ID - SOCO [id number] 12:12:09 Test Item Value Reference Range Interpretation Comments MAGNESIUM (BEAKER) (test code = 1.9 mg/dL 1.6-2.6 627) Stitcher Hand ID - SOCO LHEPATIC FUNCTION [id number] 03:03:04 Test Item Value Reference Range Interpretation Comments TOTAL PROTEIN (BEAKER) (test code = 6.9 gm/dL 6.0-8.3 770) ALBUMIN (BEAKER) (test code = 1145) 3.6 g/dL 3.5-5.0 BILIRUBIN TOTAL (BEAKER) (test code 1.1 mg/dL 0.2-1.2 = 377) BILIRUBIN DIRECT (BEAKER) (test 0.6 mg/dL 0.1-0.5 H code = 706) ALKALINE PHOSPHATASE (BEAKER) (test 137 U/L 40-150 code = 346) AST (SGOT) (BEAKER) (test code = 14 U/L 5-34 353) ALT (SGPT) (BEAKER) (test code = 20 U/L 6-55 347) Stitcher Hand ID - SOCO [id number] 03:03:03 Test Item Value Reference Range Interpretation Comments MAGNESIUM (BEAKER) (test code = 2.0 mg/dL 1.6-2.6 627) Stitcher Hand ID - SOCO [id number] 03:03:03 Test Item Value Reference Range Interpretation Comments PHOSPHORUS (BEAKER) (test code = 3.5 mg/dL 2.3-4.7 604) Stitcher Hand ID - SOCO LBASIC METABOLIC [id number] 03:03:02 Test Item Value Reference Range Interpretation Comments SODIUM (BEAKER) 130 meq/L 136-145 L (test code = 381) POTASSIUM (BEAKER) 3.2 meq/L 3.5-5.1 L (test code = 379) CHLORIDE (BEAKER) 87 meq/L 98-107 L (test code = 382) CO2 (BEAKER) (test 31 meq/L 22-29 H code = 355) BLOOD UREA NITROGEN 13 mg/dL 7-21 (BEAKER) (test code = 354) CREATININE (BEAKER) 0.84 mg/dL 0.57-1.25 (test code = 358) GLUCOSE RANDOM 111 mg/dL 70-105 H (BEAKER) (test code = 652) CALCIUM (BEAKER) 9.1 mg/dL 8.4-10.2 (test code = 697) EGFR (BEAKER) (test 97 mL/min/1.73 ESTIMA NEELA GFR IS code = 1092) sq m NOT ACCURATE CREATININE CLEARANCE IN PREDICTING GLOMERULAR FILTRATION RATE . ESTIMATED GFR I S NOT APPLICABLE FOR DIALYSIS PATIEN TS. Stitcher Hand ID - PINISHANT LOXYGEN SATURATION, [id number] 02:59:43 Test Item Value Reference Range Interpretation Comments O2 SATURATION (MEASURED) (BEAKER) 56.3 % (test code = 1455) LACTIC ACID, [id number] 02:53:05 Test Item Value Reference Range Interpretation Comments LACTATE BLOOD VENOUS (2) (BEAKER) 1.16 mmol/L 0.50-2.20 (test code = 2872) Stitcher Hand ID - SOCO LCBC (HEMOGRAM ONLY)2021-08-10 02:46:43 Test Item Value Reference Range Interpretation Comments WHITE BLOOD CELL COUNT (BEAKER) 6.9 K/ L 3.5-10.5 (test code = 775) RED BLOOD CELL COUNT (BEAKER) 3.23 M/ L 4.63-6.08 L (test code = 761) HEMOGLOBIN (BEAKER) (test code = 10.1 GM/DL 13.7-17.5 L 410) HEMATOCRIT (BEAKER) (test code = 29.7 % 40.1-51.0 L 411) MEAN CORPUSCULAR VOLUME (BEAKER) 92.0 fL 79.0-92.2 (test code = 753) MEAN CORPUSCULAR HEMOGLOBIN 31.3 pg 25.7-32.2 (BEAKER) (test code = 751) MEAN CORPUSCULAR HEMOGLOBIN CONC 34.0 GM/DL 32.3-36.5 (BEAKER) (test code = 752) RED CELL DISTRIBUTION WIDTH 18.0 % 11.6-14.4 H (BEAKER) (test code = 412) PLATELET COUNT (BEAKER) (test 248 K/CU MM 150-450 code = 756) MEAN PLATELET VOLUME (BEAKER) 9.1 fL 9.4-12.4 L (test code = 754) NUCLEATED RED BLOOD CELLS 0 /100 WBC 0-0 (BEAKER) (test code = 413) [id number] 21:36:54 Test Item Value Reference Range Interpretation Comments MAGNESIUM (BEAKER) (test code = 1.9 mg/dL 1.6-2.6 627) Stitcher Hand ID - ESTRADA [id number] 21:36:54 Test Item Value Reference Range Interpretation Comments PHOSPHORUS (BEAKER) (test code = 3.2 mg/dL 2.3-4.7 604) Stitcher Hand ID - ESTRADA BBASIC METABOLIC [id number] 21:36:53 Test Item Value Reference Range Interpretation Comments SODIUM (BEAKER) 127 meq/L 136-145 L (test code = 381) POTASSIUM (BEAKER) 3.2 meq/L 3.5-5.1 L (test code = 379) CHLORIDE (BEAKER) 85 meq/L 98-107 L (test code = 382) CO2 (BEAKER) (test 29 meq/L 22-29 code = 355) BLOOD UREA NITROGEN 15 mg/dL 7-21 (BEAKER) (test code = 354) CREATININE (BEAKER) 0.92 mg/dL 0.57-1.25 (test code = 358) GLUCOSE RANDOM 147 mg/dL 70-105 H (BEAKER) (test code = 652) CALCIUM (BEAKER) 9.1 mg/dL 8.4-10.2 (test code = 697) EGFR (BEAKER) (test 87 mL/min/1.73 ESTIMA NEELA GFR IS code = 1092) sq m NOT ACCURATE CREATININE CLEARANCE IN PREDICTING GLOMERULAR FILTRATION RATE . ESTIMATED GFR I S NOT APPLICABLE FOR DIALYSIS PATIEN TS. Stitcher Hand ID - ESTRADA BBASIC METABOLIC [id number] 11:54:01 Test Item Value Reference Range Interpretation Comments SODIUM (BEAKER) 129 meq/L 136-145 L (test code = 381) POTASSIUM (BEAKER) 3.5 meq/L 3.5-5.1 Specimen slightly (test code = 379) hemolyzed CHLORIDE (BEAKER) 84 meq/L 98-107 L (test code = 382) CO2 (BEAKER) (test 29 meq/L 22-29 code = 355) BLOOD UREA NITROGEN 15 mg/dL 7-21 (BEAKER) (test code = 354) CREATININE (BEAKER) 0.96 mg/dL 0.57-1.25 Specimen slightly (test code = 358) hemolyzed GLUCOSE RANDOM 100 mg/dL 70-105 (BEAKER) (test code = 652) CALCIUM (BEAKER) 9.4 mg/dL 8.4-10.2 (test code = 697) EGFR (BEAKER) (test 83 mL/min/1.73 ESTIMA NEELA GFR IS code = 1092) sq m NOT ACCURATE CREATININE CLEARANCE IN PREDICTING GLOMERULAR FILTRATION RATE . ESTIMATED GFR I S NOT APPLICABLE FOR DIALYSIS PATIEN TS. Stitcher Hand ID - PIAYA [id number] 11:54:00 Test Item Value Reference Range Interpretation Comments MAGNESIUM (BEAKER) 1.9 mg/dL 1.6-2.6 Specimen slightly (test code = 627) hemolyzed Stitcher Hand ID - PIAYA [id number] 11:54:00 Test Item Value Reference Range Interpretation Comments PHOSPHORUS (BEAKER) 3.8 mg/dL 2.3-4.7 Specimen slightly (test code = 604) hemolyzed Stitcher Hand ID - SOCO LBASIC METABOLIC [id number] 03:47:08 Test Item Value Reference Range Interpretation Comments SODIUM (BEAKER) 130 meq/L 136-145 L (test code = 381) POTASSIUM (BEAKER) 2.6 meq/L 3.5-5.1 LL (test code = 379) CHLORIDE (BEAKER) 84 meq/L 98-107 L (test code = 382) CO2 (BEAKER) (test 34 meq/L 22-29 H code = 355) BLOOD UREA NITROGEN 15 mg/dL 7-21 (BEAKER) (test code = 354) CREATININE (BEAKER) 0.83 mg/dL 0.57-1.25 (test code = 358) GLUCOSE RANDOM 88 mg/dL 70-105 (BEAKER) (test code = 652) CALCIUM (BEAKER) 9.5 mg/dL 8.4-10.2 (test code = 697) EGFR (BEAKER) (test 98 mL/min/1.73 ESTIMA NEELA GFR IS code = 1092) sq m NOT ACCURATE CREATININE CLEARANCE IN PREDICTING GLOMERULAR FILTRATION RATE . ESTIMATED GFR I S NOT APPLICABLE FOR DIALYSIS PATIEN TS. Stitcher Hand ID - SOCO [id number] 03:29:03 Test Item Value Reference Range Interpretation Comments PHOSPHORUS (BEAKER) (test code = 3.5 mg/dL 2.3-4.7 604) Stitcher Hand ID Sal WAN LHEPATIC FUNCTION [id number] 03:29:03 Test Item Value Reference Range Interpretation Comments TOTAL PROTEIN (BEAKER) (test code = 7.1 gm/dL 6.0-8.3 770) ALBUMIN (BEAKER) (test code = 1145) 3.7 g/dL 3.5-5.0 BILIRUBIN TOTAL (BEAKER) (test code 1.3 mg/dL 0.2-1.2 H = 377) BILIRUBIN DIRECT (BEAKER) (test 0.7 mg/dL 0.1-0.5 H code = 706) ALKALINE PHOSPHATASE (BEAKER) (test 136 U/L 40-150 code = 346) AST (SGOT) (BEAKER) (test code = 16 U/L 5-34 353) ALT (SGPT) (BEAKER) (test code = 23 U/L 6-55 347) Stitcher Hand ID Sal WAN [id number] 03:29:02 Test Item Value Reference Range Interpretation Comments MAGNESIUM (BEAKER) (test code = 2.0 mg/dL 1.6-2.6 627) Stitcher Hand JESSICA WAN LLACTIC ACID, [id number] 03:20:45 Test Item Value Reference Range Interpretation Comments LACTATE BLOOD VENOUS (2) (BEAKER) 1.05 mmol/L 0.50-2.20 (test code = 2872) Stitcher Hand ID Sal WAN LCBC (HEMOGRAM ONLY)2021-08-09 03:05:42 Test Item Value Reference Range Interpretation Comments WHITE BLOOD CELL COUNT (BEAKER) 6.1 K/ L 3.5-10.5 (test code = 775) RED BLOOD CELL COUNT (BEAKER) 3.27 M/ L 4.63-6.08 L (test code = 761) HEMOGLOBIN (BEAKER) (test code = 10.3 GM/DL 13.7-17.5 L 410) HEMATOCRIT (BEAKER) (test code = 31.1 % 40.1-51.0 L 411) MEAN CORPUSCULAR VOLUME (BEAKER) 95.1 fL 79.0-92.2 H (test code = 753) MEAN CORPUSCULAR HEMOGLOBIN 31.5 pg 25.7-32.2 (BEAKER) (test code = 751) MEAN CORPUSCULAR HEMOGLOBIN CONC 33.1 GM/DL 32.3-36.5 (BEAKER) (test code = 752) RED CELL DISTRIBUTION WIDTH 18.1 % 11.6-14.4 H (BEAKER) (test code = 412) PLATELET COUNT (BEAKER) (test 217 K/CU MM 150-450 code = 756) MEAN PLATELET VOLUME (BEAKER) 9.0 fL 9.4-12.4 L (test code = 754) NUCLEATED RED BLOOD CELLS 0 /100 WBC 0-0 (BEAKER) (test code = 413) OXYGEN SATURATION, [id number] 02:59:57 Test Item Value Reference Range Interpretation Comments O2 SATURATION (MEASURED) (BEAKER) 71.5 % (test code = 1455) BASIC METABOLIC [id number] 20:25:46 Test Item Value Reference Range Interpretation Comments SODIUM (BEAKER) 127 meq/L 136-145 L (test code = 381) POTASSIUM (BEAKER) 2.6 meq/L 3.5-5.1 LL (test code = 379) CHLORIDE (BEAKER) 83 meq/L 98-107 L (test code = 382) CO2 (BEAKER) (test 28 meq/L 22-29 code = 355) BLOOD UREA NITROGEN 16 mg/dL 7-21 (BEAKER) (test code = 354) CREATININE (BEAKER) 1.02 mg/dL 0.57-1.25 (test code = 358) GLUCOSE RANDOM 121 mg/dL 70-105 H (BEAKER) (test code = 652) CALCIUM (BEAKER) 9.6 mg/dL 8.4-10.2 (test code = 697) EGFR (BEAKER) (test 77 mL/min/1.73 ESTIMA NEELA GFR IS code = 1092) sq m NOT ACCURATE CREATININE CLEARANCE IN PREDICTING GLOMERULAR FILTRATION RATE . ESTIMATED GFR I S NOT APPLICABLE FOR DIALYSIS PATIEN TS. Stitcher Hand ID Sal LEANNE [id number] 20:22:24 Test Item Value Reference Range Interpretation Comments PHOSPHORUS (BEAKER) (test code = 3.2 mg/dL 2.3-4.7 604) Stitcher Hand ID - LEANNE [id number] 20:22:23 Test Item Value Reference Range Interpretation Comments MAGNESIUM (BEAKER) (test code = 1.9 mg/dL 1.6-2.6 627) Stitcher Hand ID Sal LEANNE [id number] 13:14:13 Test Item Value Reference Range Interpretation Comments MAGNESIUM (BEAKER) (test code = 1.9 mg/dL 1.6-2.6 627) Stitcher Hand ID Sal WAN [id number] 13:14:13 Test Item Value Reference Range Interpretation Comments PHOSPHORUS (BEAKER) (test code = 3.6 mg/dL 2.3-4.7 604) Stitcher Hand ID Sal WAN LBASIC METABOLIC [id number] 13:14:12 Test Item Value Reference Range Interpretation Comments SODIUM (BEAKER) 130 meq/L 136-145 L (test code = 381) POTASSIUM (BEAKER) 3.3 meq/L 3.5-5.1 L (test code = 379) CHLORIDE (BEAKER) 85 meq/L 98-107 L (test code = 382) CO2 (BEAKER) (test 33 meq/L 22-29 H code = 355) BLOOD UREA NITROGEN 17 mg/dL 7-21 (BEAKER) (test code = 354) CREATININE (BEAKER) 1.03 mg/dL 0.57-1.25 (test code = 358) GLUCOSE RANDOM 110 mg/dL 70-105 H (BEAKER) (test code = 652) CALCIUM (BEAKER) 9.4 mg/dL 8.4-10.2 (test code = 697) EGFR (BEAKER) (test 76 mL/min/1.73 ESTIMA NEELA GFR IS code = 1092) sq m NOT ACCURATE CREATININE CLEARANCE IN PREDICTING GLOMERULAR FILTRATION RATE . ESTIMATED GFR I S NOT APPLICABLE FOR DIALYSIS PATIEN TS. Stitcher Hand ID Sal WAN LHEPATIC FUNCTION [id number] 03:29:41 Test Item Value Reference Range Interpretation Comments TOTAL PROTEIN (BEAKER) (test code = 7.1 gm/dL 6.0-8.3 770) ALBUMIN (BEAKER) (test code = 1145) 3.7 g/dL 3.5-5.0 BILIRUBIN TOTAL (BEAKER) (test code 1.2 mg/dL 0.2-1.2 = 377) BILIRUBIN DIRECT (BEAKER) (test 0.7 mg/dL 0.1-0.5 H code = 706) ALKALINE PHOSPHATASE (BEAKER) (test 135 U/L 40-150 code = 346) AST (SGOT) (BEAKER) (test code = 17 U/L 5-34 353) ALT (SGPT) (BEAKER) (test code = 23 U/L 6-55 347) Stitcher Hand ID - FAUZIA [id number] 03:29:40 Test Item Value Reference Range Interpretation Comments MAGNESIUM (BEAKER) (test code = 1.9 mg/dL 1.6-2.6 627) Stitcher Hand ID - FAUZIA [id number] 03:29:40 Test Item Value Reference Range Interpretation Comments PHOSPHORUS (BEAKER) (test code = 3.5 mg/dL 2.3-4.7 604) Stitcher Hand ID Sal FAUZIA WBASIC METABOLIC [id number] 03:29:39 Test Item Value Reference Range Interpretation Comments SODIUM (BEAKER) 133 meq/L 136-145 L (test code = 381) POTASSIUM (BEAKER) 2.8 meq/L 3.5-5.1 L (test code = 379) CHLORIDE (BEAKER) 89 meq/L 98-107 L (test code = 382) CO2 (BEAKER) (test 28 meq/L 22-29 code = 355) BLOOD UREA NITROGEN 16 mg/dL 7-21 (BEAKER) (test code = 354) CREATININE (BEAKER) 0.93 mg/dL 0.57-1.25 (test code = 358) GLUCOSE RANDOM 101 mg/dL 70-105 (BEAKER) (test code = 652) CALCIUM (BEAKER) 9.7 mg/dL 8.4-10.2 (test code = 697) EGFR (BEAKER) (test 86 mL/min/1.73 ESTIMA NEELA GFR IS code = 1092) sq m NOT ACCURATE CREATININE CLEARANCE IN PREDICTING GLOMERULAR FILTRATION RATE . ESTIMATED GFR I S NOT APPLICABLE FOR DIALYSIS PATIEN TS. Stitcher Hand JESSICA CAGE WLACTIC ACID, [id number] 03:24:37 Test Item Value Reference Range Interpretation Comments LACTATE BLOOD VENOUS (2) (BEAKER) 1.01 mmol/L 0.50-2.20 (test code = 2872) Stitcher Hand ID Sal CAGE WCBC (HEMOGRAM ONLY)2021-08-08 03:09:38 Test Item Value Reference Range Interpretation Comments WHITE BLOOD CELL COUNT (BEAKER) 7.1 K/ L 3.5-10.5 (test code = 775) RED BLOOD CELL COUNT (BEAKER) 3.24 M/ L 4.63-6.08 L (test code = 761) HEMOGLOBIN (BEAKER) (test code = 10.0 GM/DL 13.7-17.5 L 410) HEMATOCRIT (BEAKER) (test code = 30.9 % 40.1-51.0 L 411) MEAN CORPUSCULAR VOLUME (BEAKER) 95.4 fL 79.0-92.2 H (test code = 753) MEAN CORPUSCULAR HEMOGLOBIN 30.9 pg 25.7-32.2 (BEAKER) (test code = 751) MEAN CORPUSCULAR HEMOGLOBIN CONC 32.4 GM/DL 32.3-36.5 (BEAKER) (test code = 752) RED CELL DISTRIBUTION WIDTH 18.6 % 11.6-14.4 H (BEAKER) (test code = 412) PLATELET COUNT (BEAKER) (test 198 K/CU MM 150-450 code = 756) MEAN PLATELET VOLUME (BEAKER) 9.2 fL 9.4-12.4 L (test code = 754) NUCLEATED RED BLOOD CELLS 0 /100 WBC 0-0 (BEAKER) (test code = 413) OXYGEN SATURATION, [id number] 03:08:16 Test Item Value Reference Range Interpretation Comments O2 SATURATION (MEASURED) (BEAKER) 69.2 % (test code = 1455) [id number] 20:17:23 Test Item Value Reference Range Interpretation Comments PHOSPHORUS (BEAKER) (test code = 3.1 mg/dL 2.3-4.7 604) Stitcher Hand ID - [id number] 20:17:22 Test Item Value Reference Range Interpretation Comments MAGNESIUM (BEAKER) (test code = 2.0 mg/dL 1.6-2.6 627) Stitcher Hand ID - ADMINBASIC METABOLIC [id number] 20:17:21 Test Item Value Reference Range Interpretation Comments SODIUM (BEAKER) 131 meq/L 136-145 L (test code = 381) POTASSIUM (BEAKER) 2.9 meq/L 3.5-5.1 L (test code = 379) CHLORIDE (BEAKER) 93 meq/L 98-107 L (test code = 382) CO2 (BEAKER) (test 26 meq/L 22-29 code = 355) BLOOD UREA NITROGEN 16 mg/dL 7-21 (BEAKER) (test code = 354) CREATININE (BEAKER) 1.02 mg/dL 0.57-1.25 (test code = 358) GLUCOSE RANDOM 126 mg/dL 70-105 H (BEAKER) (test code = 652) CALCIUM (BEAKER) 8.9 mg/dL 8.4-10.2 (test code = 697) EGFR (BEAKER) (test 77 mL/min/1.73 ESTIMA NEELA GFR IS code = 1092) sq m NOT ACCURATE CREATININE CLEARANCE IN PREDICTING GLOMERULAR FILTRATION RATE . ESTIMATED GFR I S NOT APPLICABLE FOR DIALYSIS PATIEN TS. Stitcher Hand ID - ADMINLACTIC ACID, [id number] 16:05:41 Test Item Value Reference Range Interpretation Comments LACTATE BLOOD VENOUS (2) (BEAKER) 1.04 mmol/L 0.50-2.20 (test code = 2872) Stitcher Hand ID - [id number] 12:56:37 Test Item Value Reference Range Interpretation Comments PHOSPHORUS (BEAKER) (test code = 3.2 mg/dL 2.3-4.7 604) Stitcher Hand ID - SO MBASIC METABOLIC [id number] 12:56:36 Test Item Value Reference Range Interpretation Comments SODIUM (BEAKER) 128 meq/L 136-145 L (test code = 381) POTASSIUM (BEAKER) 3.5 meq/L 3.5-5.1 (test code = 379) CHLORIDE (BEAKER) 91 meq/L 98-107 L (test code = 382) CO2 (BEAKER) (test 27 meq/L 22-29 code = 355) BLOOD UREA NITROGEN 23 mg/dL 7-21 H (BEAKER) (test code = 354) CREATININE (BEAKER) 0.98 mg/dL 0.57-1.25 (test code = 358) GLUCOSE RANDOM 100 mg/dL 70-105 (BEAKER) (test code = 652) CALCIUM (BEAKER) 9.7 mg/dL 8.4-10.2 (test code = 697) EGFR (BEAKER) (test 81 mL/min/1.73 ESTIMA NEELA GFR IS code = 1092) sq m NOT ACCURATE CREATININE CLEARANCE IN PREDICTING GLOMERULAR FILTRATION RATE . ESTIMATED GFR I S NOT APPLICABLE FOR DIALYSIS PATIEN TS. Stitcher Hand ID - SO [id number] 12:56:36 Test Item Value Reference Range Interpretation Comments MAGNESIUM (BEAKER) (test code = 1.9 mg/dL 1.6-2.6 627) Stitcher Hand ID - SO MHEPATIC FUNCTION [id number] 05:43:57 Test Item Value Reference Range Interpretation Comments TOTAL PROTEIN (BEAKER) (test code = 6.3 gm/dL 6.0-8.3 770) ALBUMIN (BEAKER) (test code = 1145) 3.2 g/dL 3.5-5.0 L BILIRUBIN TOTAL (BEAKER) (test code 1.0 mg/dL 0.2-1.2 = 377) BILIRUBIN DIRECT (BEAKER) (test 0.6 mg/dL 0.1-0.5 H code = 706) ALKALINE PHOSPHATASE (BEAKER) (test 111 U/L 40-150 code = 346) AST (SGOT) (BEAKER) (test code = 14 U/L 5-34 353) ALT (SGPT) (BEAKER) (test code = 22 U/L 6-55 347) Stitcher Hand ID - SO [id number] 05:43:56 Test Item Value Reference Range Interpretation Comments PHOSPHORUS (BEAKER) (test code = 3.9 mg/dL 2.3-4.7 604) Stitcher Hand ID - SO MCOMPREHENSIVE METABOLIC [id number] 05:43:55 Test Item Value Reference Range Interpretation Comments TOTAL PROTEIN 6.3 gm/dL 6.0-8.3 (BEAKER) (test code = 770) ALBUMIN (BEAKER) 3.2 g/dL 3.5-5.0 L (test code = 1145) ALKALINE PHOSPHATASE 111 U/L 40-150 (BEAKER) (test code = 346) BILIRUBIN TOTAL 1.0 mg/dL 0.2-1.2 (BEAKER) (test code = 377) SODIUM (BEAKER) (test 132 meq/L 136-145 L code = 381) POTASSIUM (BEAKER) 3.1 meq/L 3.5-5.1 L (test code = 379) CHLORIDE (BEAKER) 93 meq/L 98-107 L (test code = 382) CO2 (BEAKER) (test 28 meq/L 22-29 code = 355) BLOOD UREA NITROGEN 22 mg/dL 7-21 H (BEAKER) (test code = 354) CREATININE (BEAKER) 0.87 mg/dL 0.57-1.25 (test code = 358) GLUCOSE RANDOM 95 mg/dL 70-105 (BEAKER) (test code = 652) CALCIUM (BEAKER) 8.7 mg/dL 8.4-10.2 (test code = 697) AST (SGOT) (BEAKER) 14 U/L 5-34 (test code = 353) ALT (SGPT) (BEAKER) 22 U/L 6-55 (test code = 347) EGFR (BEAKER) (test 93 mL/min/1.73 ESTIMA NEELA GFR IS code = 1092) sq m NOT ACCURATE CREATININE CLEARANCE IN PREDICTING GLOMERULAR FILTRATION RATE . ESTIMATED GFR I S NOT APPLICABLE FOR DIALYSIS PATIEN TS. Stitcher Hand ID - SO [id number] 05:43:55 Test Item Value Reference Range Interpretation Comments MAGNESIUM (BEAKER) (test code = 1.9 mg/dL 1.6-2.6 627) Stitcher Hand ID - SO MCALCIUM, [id number] 05:19:56 Test Item Value Reference Range Interpretation Comments CALCIUM IONIZED (BEAKER) (test 1.06 mmol/L 1.12-1.27 L code = 698) PH, BLOOD (BEAKER) (test code = 7.42 1810) CBC W/PLT COUNT & AUTO [id number] 05:19:37 Test Item Value Reference Range Interpretation Comments WHITE BLOOD CELL COUNT (BEAKER) 5.8 K/ L 3.5-10.5 (test code = 775) RED BLOOD CELL COUNT (BEAKER) 2.91 M/ L 4.63-6.08 L (test code = 761) HEMOGLOBIN (BEAKER) (test code = 9.1 GM/DL 13.7-17.5 L 410) HEMATOCRIT (BEAKER) (test code = 28.4 % 40.1-51.0 L 411) MEAN CORPUSCULAR VOLUME (BEAKER) 97.6 fL 79.0-92.2 H (test code = 753) MEAN CORPUSCULAR HEMOGLOBIN 31.3 pg 25.7-32.2 (BEAKER) (test code = 751) MEAN CORPUSCULAR HEMOGLOBIN CONC 32.0 GM/DL 32.3-36.5 L (BEAKER) (test code = 752) RED CELL DISTRIBUTION WIDTH 19.3 % 11.6-14.4 H (BEAKER) (test code = 412) PLATELET COUNT (BEAKER) (test 189 K/CU MM 150-450 code = 756) MEAN PLATELET VOLUME (BEAKER) 9.7 fL 9.4-12.4 (test code = 754) NUCLEATED RED BLOOD CELLS 0 /100 WBC 0-0 (BEAKER) (test code = 413) NEUTROPHILS RELATIVE PERCENT 78 % (BEAKER) (test code = 429) LYMPHOCYTES RELATIVE PERCENT 14 % (BEAKER) (test code = 430) MONOCYTES RELATIVE PERCENT 5 % (BEAKER) (test code = 431) EOSINOPHILS RELATIVE PERCENT 2 % (BEAKER) (test code = 432) BASOPHILS RELATIVE PERCENT 0 % (BEAKER) (test code = 437) NEUTROPHILS ABSOLUTE COUNT 4.54 K/ L 1.78-5.38 (BEAKER) (test code = 670) LYMPHOCYTES ABSOLUTE COUNT 0.80 K/ L 1.32-3.57 L (BEAKER) (test code = 414) MONOCYTES ABSOLUTE COUNT (BEAKER) 0.31 K/ L 0.30-0.82 (test code = 415) EOSINOPHILS ABSOLUTE COUNT 0.11 K/ L 0.04-0.54 (BEAKER) (test code = 416) BASOPHILS ABSOLUTE COUNT (BEAKER) 0.02 K/ L 0.01-0.08 (test code = 417) IMMATURE GRANULOCYTES-RELATIVE 1 % 0-1 PERCENT (BEAKER) (test code = 2801) OXYGEN SATURATION, [id number] 05:18:46 Test Item Value Reference Range Interpretation Comments O2 SATURATION (MEASURED) (BEAKER) 65.5 % (test code = 1455) [id number] 19:02:59 Test Item Value Reference Range Interpretation Comments MAGNESIUM (BEAKER) (test code = 1.4 mg/dL 1.6-2.6 L 627) Stitcher Hand ID - [id number] 19:02:59 Test Item Value Reference Range Interpretation Comments PHOSPHORUS (BEAKER) (test code = 3.3 mg/dL 2.3-4.7 604) Stitcher Hand ID - BSBASIC METABOLIC [id number] 19:02:58 Test Item Value Reference Range Interpretation Comments SODIUM (BEAKER) 128 meq/L 136-145 L (test code = 381) POTASSIUM (BEAKER) 3.9 meq/L 3.5-5.1 (test code = 379) CHLORIDE (BEAKER) 96 meq/L 98-107 L (test code = 382) CO2 (BEAKER) (test 19 meq/L 22-29 L code = 355) BLOOD UREA NITROGEN 15 mg/dL 7-21 (BEAKER) (test code = 354) CREATININE (BEAKER) 0.88 mg/dL 0.57-1.25 (test code = 358) GLUCOSE RANDOM 144 mg/dL 70-105 H (BEAKER) (test code = 652) CALCIUM (BEAKER) 8.0 mg/dL 8.4-10.2 L (test code = 697) EGFR (BEAKER) (test 92 mL/min/1.73 ESTIMA NEELA GFR IS code = 1092) sq m NOT ACCURATE CREATININE CLEARANCE IN PREDICTING GLOMERULAR FILTRATION RATE . ESTIMATED GFR I S NOT APPLICABLE FOR DIALYSIS PATIEN TS. Stitcher Hand ID - BSOXYGEN SATURATION, [id number] 14:27:44 Test Item Value Reference Range Interpretation Comments O2 SATURATION (MEASURED) (BEAKER) 65.4 % (test code = 1455) BASIC METABOLIC [id number] 12:58:07 Test Item Value Reference Range Interpretation Comments SODIUM (BEAKER) 127 meq/L 136-145 L (test code = 381) POTASSIUM (BEAKER) 4.9 meq/L 3.5-5.1 Specimen slightly (test code = 379) hemolyzed CHLORIDE (BEAKER) 92 meq/L 98-107 L (test code = 382) CO2 (BEAKER) (test 23 meq/L 22-29 code = 355) BLOOD UREA NITROGEN 16 mg/dL 7-21 (BEAKER) (test code = 354) CREATININE (BEAKER) 0.91 mg/dL 0.57-1.25 Specimen slightly (test code = 358) hemolyzed GLUCOSE RANDOM 107 mg/dL 70-105 H (BEAKER) (test code = 652) CALCIUM (BEAKER) 9.1 mg/dL 8.4-10.2 (test code = 697) EGFR (BEAKER) (test 88 mL/min/1.73 ESTIMA NEELA GFR IS code = 1092) sq m NOT ACCURATE CREATININE CLEARANCE IN PREDICTING GLOMERULAR FILTRATION RATE . ESTIMATED GFR I S NOT APPLICABLE FOR DIALYSIS PATIEN TS. Stitcher Hand ID - SO MLACTIC ACID, [id number] 12:46:28 Test Item Value Reference Range Interpretation Comments LACTATE BLOOD VENOUS (2) (BEAKER) 1.68 mmol/L 0.50-2.20 (test code = 2872) Stitcher Hand ID - SO MOXYGEN SATURATION, [id number] 12:14:55 Test Item Value Reference Range Interpretation Comments O2 SATURATION (MEASURED) (BEAKER) 47.1 % (test code = 1455) RAD, ABDOMEN/KUB, 1 VIEW [id number] 11:30:00Reason for exam:->Abdominal painCH[facility] : 1970 Sex: MFINAL REPORT CLINICAL HISTORY: Abdominal pain TECHNIQUE: Supine abdomen COMPARISON: 06/30/2021 IMPRESSION: A nonspecific paucity of bowel gas is again noted. Free air and air-fluid levels are not definitively seen, but also cannot be excluded on the supine view. Signed: Constantine Araiza [facility] Verified Date/Time: 08/06/2021 11:30:58 Reading Location: [facility] Radiology Reading Room ALYSIS W/ REFLEX URINE [id number] 10:07:44 Test Item Value Reference Range Interpretation Comments COLOR (BEAKER) (test code = 470) Yellow CLARITY (BEAKER) (test code = 469) Hazy SPECIFIC GRAVITY UA (BEAKER) (test 1.013 1.001-1.035 code = 468) PH UA (BEAKER) (test code = 467) 6.0 5.0-8.0 PROTEIN UA (BEAKER) (test code = 10 mg/dL Negative A 464) GLUCOSE UA (BEAKER) (test code = Negative Negative 365) KETONES UA (BEAKER) (test code = Negative Negative 371) BILIRUBIN UA (BEAKER) (test code = Negative Negative 462) BLOOD UA (BEAKER) (test code = Negative Negative 461) NITRITE UA (BEAKER) (test code = Negative Negative 465) LEUKOCYTE ESTERASE UA (BEAKER) Negative Negative (test code = 466) UROBILINOGEN UA (BEAKER) (test 4.0 mg/dL 0.2-1.0 H code = 463) RBC UA (BEAKER) (test code = 519) 1 /HPF WBC UA (BEAKER) (test code = 520) 3 /HPF BACTERIA (BEAKER) (test code = Rare 517) MUCUS (BEAKER) (test code = 1574) Few SQUAMOUS EPITHELIAL (BEAKER) (test < /HPF code = 516) HYALINE CASTS (BEAKER) (test code 8 /LPF = 514) CRYSTALS, URINE (BEAKER) (test None Seen code = 1521) AMORPHOUS CRYSTALS (BEAKER) (test Occasional code = 1584) SOURCE(BEAKER) (test code = 9035) Stitcher Hand ID - [auto]Stitcher Hand ID - techBASIC METABOLIC [id number] 10:01:54 Test Item Value Reference Range Interpretation Comments SODIUM (BEAKER) 126 meq/L 136-145 L (test code = 381) POTASSIUM (BEAKER) 4.9 meq/L 3.5-5.1 Specimen slightly (test code = 379) hemolyzed CHLORIDE (BEAKER) 93 meq/L 98-107 L (test code = 382) CO2 (BEAKER) (test 21 meq/L 22-29 L code = 355) BLOOD UREA NITROGEN 15 mg/dL 7-21 (BEAKER) (test code = 354) CREATININE (BEAKER) 0.93 mg/dL 0.57-1.25 Specimen slightly (test code = 358) hemolyzed GLUCOSE RANDOM 151 mg/dL 70-105 H (BEAKER) (test code = 652) CALCIUM (BEAKER) 8.5 mg/dL 8.4-10.2 (test code = 697) EGFR (BEAKER) (test 86 mL/min/1.73 ESTIMA NEELA GFR IS code = 1092) sq m NOT ACCURATE CREATININE CLEARANCE IN PREDICTING GLOMERULAR FILTRATION RATE . ESTIMATED GFR I S NOT APPLICABLE FOR DIALYSIS PATIEN TS. Stitcher Hand ID - OS [id number] 10:01:53 Test Item Value Reference Range Interpretation Comments MAGNESIUM (BEAKER) 1.7 mg/dL 1.6-2.6 Specimen slightly (test code = 627) hemolyzed Stitcher Hand ID - SO [id number] 10:01:53 Test Item Value Reference Range Interpretation Comments PHOSPHORUS (BEAKER) 3.5 mg/dL 2.3-4.7 Specimen slightly (test code = 604) hemolyzed Stitcher Hand ID - SO [id number] 05:41:55 Test Item Value Reference Range Interpretation Comments PHOSPHORUS (BEAKER) (test code = 3.2 mg/dL 2.3-4.7 604) Stitcher Hand ID - SO MHEPATIC FUNCTION [id number] 05:41:55 Test Item Value Reference Range Interpretation Comments TOTAL PROTEIN (BEAKER) (test code = 6.9 gm/dL 6.0-8.3 770) ALBUMIN (BEAKER) (test code = 1145) 3.7 g/dL 3.5-5.0 BILIRUBIN TOTAL (BEAKER) (test code 1.0 mg/dL 0.2-1.2 = 377) BILIRUBIN DIRECT (BEAKER) (test 0.6 mg/dL 0.1-0.5 H code = 706) ALKALINE PHOSPHATASE (BEAKER) (test 127 U/L 40-150 code = 346) AST (SGOT) (BEAKER) (test code = 19 U/L 5-34 353) ALT (SGPT) (BEAKER) (test code = 30 U/L 6-55 347) Stitcher Hand ID - SO [id number] 05:41:54 Test Item Value Reference Range Interpretation Comments MAGNESIUM (BEAKER) (test code = 2.0 mg/dL 1.6-2.6 627) Stitcher Hand ID - SO MCOMPREHENSIVE METABOLIC [id number] 05:41:53 Test Item Value Reference Range Interpretation Comments TOTAL PROTEIN 6.9 gm/dL 6.0-8.3 (BEAKER) (test code = 770) ALBUMIN (BEAKER) 3.7 g/dL 3.5-5.0 (test code = 1145) ALKALINE PHOSPHATASE 127 U/L 40-150 (BEAKER) (test code = 346) BILIRUBIN TOTAL 1.0 mg/dL 0.2-1.2 (BEAKER) (test code = 377) SODIUM (BEAKER) (test 130 meq/L 136-145 L code = 381) POTASSIUM (BEAKER) 4.3 meq/L 3.5-5.1 (test code = 379) CHLORIDE (BEAKER) 93 meq/L 98-107 L (test code = 382) CO2 (BEAKER) (test 24 meq/L 22-29 code = 355) BLOOD UREA NITROGEN 14 mg/dL 7-21 (BEAKER) (test code = 354) CREATININE (BEAKER) 0.78 mg/dL 0.57-1.25 (test code = 358) GLUCOSE RANDOM 93 mg/dL 70-105 (BEAKER) (test code = 652) CALCIUM (BEAKER) 9.2 mg/dL 8.4-10.2 (test code = 697) AST (SGOT) (BEAKER) 19 U/L 5-34 (test code = 353) ALT (SGPT) (BEAKER) 30 U/L 6-55 (test code = 347) EGFR (BEAKER) (test 105 ESTIMATE D GFR IS code = 1092) mL/min/1.73 sq NOT ACCURA TE m CREATININE CLEARANCE IN PREDICTING GLOMERULAR FILTRATION RATE . ESTIMATED GFR I S NOT APPLICABLE FOR DIALYSIS PATIEN TS. Stitcher Hand ID - SO MLACTIC ACID, [id number] 05:17:18 Test Item Value Reference Range Interpretation Comments LACTATE BLOOD VENOUS (2) (BEAKER) 1.30 mmol/L 0.50-2.20 (test code = 2872) Stitcher Hand ID - SO MCBC W/PLT COUNT & AUTO [id number] 05:11:31 Test Item Value Reference Range Interpretation Comments WHITE BLOOD CELL COUNT (BEAKER) 8.0 K/ L 3.5-10.5 (test code = 775) RED BLOOD CELL COUNT (BEAKER) 3.18 M/ L 4.63-6.08 L (test code = 761) HEMOGLOBIN (BEAKER) (test code = 10.0 GM/DL 13.7-17.5 L 410) HEMATOCRIT (BEAKER) (test code = 31.1 % 40.1-51.0 L 411) MEAN CORPUSCULAR VOLUME (BEAKER) 97.8 fL 79.0-92.2 H (test code = 753) MEAN CORPUSCULAR HEMOGLOBIN 31.4 pg 25.7-32.2 (BEAKER) (test code = 751) MEAN CORPUSCULAR HEMOGLOBIN CONC 32.2 GM/DL 32.3-36.5 L (BEAKER) (test code = 752) RED CELL DISTRIBUTION WIDTH 19.3 % 11.6-14.4 H (BEAKER) (test code = 412) PLATELET COUNT (BEAKER) (test 218 K/CU MM 150-450 code = 756) MEAN PLATELET VOLUME (BEAKER) 9.7 fL 9.4-12.4 (test code = 754) NUCLEATED RED BLOOD CELLS 0 /100 WBC 0-0 (BEAKER) (test code = 413) NEUTROPHILS RELATIVE PERCENT 79 % (BEAKER) (test code = 429) LYMPHOCYTES RELATIVE PERCENT 12 % (BEAKER) (test code = 430) MONOCYTES RELATIVE PERCENT 6 % (BEAKER) (test code = 431) EOSINOPHILS RELATIVE PERCENT 2 % (BEAKER) (test code = 432) BASOPHILS RELATIVE PERCENT 0 % (BEAKER) (test code = 437) NEUTROPHILS ABSOLUTE COUNT 6.31 K/ L 1.78-5.38 H (BEAKER) (test code = 670) LYMPHOCYTES ABSOLUTE COUNT 0.93 K/ L 1.32-3.57 L (BEAKER) (test code = 414) MONOCYTES ABSOLUTE COUNT (BEAKER) 0.47 K/ L 0.30-0.82 (test code = 415) EOSINOPHILS ABSOLUTE COUNT 0.19 K/ L 0.04-0.54 (BEAKER) (test code = 416) BASOPHILS ABSOLUTE COUNT (BEAKER) 0.01 K/ L 0.01-0.08 (test code = 417) IMMATURE GRANULOCYTES-RELATIVE 1 % 0-1 PERCENT (BEAKER) (test code = 2801) CALCIUM, [id number] 05:07:47 Test Item Value Reference Range Interpretation Comments CALCIUM IONIZED (BEAKER) (test 1.03 mmol/L 1.12-1.27 L code = 698) PH, BLOOD (BEAKER) (test code = 7.44 1810) OXYGEN SATURATION, [id number] 05:02:51 Test Item Value Reference Range Interpretation Comments O2 SATURATION (MEASURED) (BEAKER) 55.6 % (test code = 1455) SARS-COV2/RT-PCR ([facility])2021-08-06 01:27:17 Test Item Value Reference Range Interpretation Comments SARS-COV2/RT-PCR (test code = Negative Negative [id number]) Negative result for this test determines that SARS-CoV-2 RNA was not present in the specimen above the Limit of Detection (LOD). However, Negative results do not preclude SARS-CoV-2 infection and should not be used as the sole basis for treatment or patient management decisions. Negative results must be combined with clinical observations, patient history, and epidemiological information. A false negative result may occur if a specimen is improperly collected, transported, or handled. A false negative result should be considered if patient's recent exposures or clinical presentation indicate that COVID-19 (SARS-CoV-2) is likely and diagnostic tests for other causes of illness are negative. Re-testing should be considered in cases of suspected false negatives.The limit of detection for this assay is 100 copies/mL.This SARS-CoV-2 test is a real-time RT_PCR test intended for the qualitative detection of nucleic acid from SARS-CoV-2 in a nasopharyngeal swab specimen collected from individuals suspected of COVID-19 by their healthcare provider.This test has not been Food and Drug Administration (FDA) cleared or approved. This is a modified version of an approved Emergency Use Authorization (EUA) and is in the process of review by the FDA. Once authorized by the FDA, the issued EUA will be effective until the declaration that circumstances exist justifying the authorization of the emergency use of in vitro diagnostic tests for detection and/or diagnosis of COVID-19 is terminated under Section 564(b)(2) of the Act or the EUA is revoked under Section 564(g) of the Act.Testing was performed using the [employer] SARS-CoV-2 assay.Fact Sheet for Healthcare Providers:https://www.molecular.pittman/eduardo/RT SARS-CoV-2 HCP Fact Sheet 51- 285578.pdfFact Sheet for Healthcare Patients:https://www.molecular.[place]man/eduardo/RT SARS-CoV-2 Patient Fact Sheet EN 51-709133G7.pdfBASI METABOLIC [id number] 22:57:37 Test Item Value Reference Range Interpretation Comments SODIUM (BEAKER) 125 meq/L 136-145 L (test code = 381) POTASSIUM (BEAKER) 4.5 meq/L 3.5-5.1 Specimen slightly (test code = 379) hemolyzed CHLORIDE (BEAKER) 89 meq/L 98-107 L (test code = 382) CO2 (BEAKER) (test 25 meq/L 22-29 code = 355) BLOOD UREA NITROGEN 12 mg/dL 7-21 (BEAKER) (test code = 354) CREATININE (BEAKER) 0.81 mg/dL 0.57-1.25 Specimen slightly (test code = 358) hemolyzed GLUCOSE RANDOM 115 mg/dL 70-105 H (BEAKER) (test code = 652) CALCIUM (BEAKER) 8.8 mg/dL 8.4-10.2 (test code = 697) EGFR (BEAKER) (test 101 mL/min/1.73 ESTIM ATED GFR IS code = 1092) sq m NOT ACCURATE CREATININE CLEARANCE IN PREDICTING GLOMERULAR FILTRATION RATE . ESTIMATED GFR I S NOT APPLICABLE FOR DIALYSIS PATIEN TS. Stitcher Hand ID - [id number] 18:01:08 Test Item Value Reference Range Interpretation Comments MAGNESIUM (BEAKER) (test code = 1.7 mg/dL 1.6-2.6 627) Stitcher Hand ID - [id number] 18:01:08 Test Item Value Reference Range Interpretation Comments PHOSPHORUS (BEAKER) (test code = 3.0 mg/dL 2.3-4.7 604) Stitcher Hand ID - ADMINBASIC METABOLIC [id number] 18:01:07 Test Item Value Reference Range Interpretation Comments SODIUM (BEAKER) 126 meq/L 136-145 L (test code = 381) POTASSIUM (BEAKER) 3.6 meq/L 3.5-5.1 (test code = 379) CHLORIDE (BEAKER) 89 meq/L 98-107 L (test code = 382) CO2 (BEAKER) (test 25 meq/L 22-29 code = 355) BLOOD UREA NITROGEN 12 mg/dL 7-21 (BEAKER) (test code = 354) CREATININE (BEAKER) 0.86 mg/dL 0.57-1.25 (test code = 358) GLUCOSE RANDOM 130 mg/dL 70-105 H (BEAKER) (test code = 652) CALCIUM (BEAKER) 8.7 mg/dL 8.4-10.2 (test code = 697) EGFR (BEAKER) (test 94 mL/min/1.73 ESTIMA NEELA GFR IS code = 1092) sq m NOT ACCURATE CREATININE CLEARANCE IN PREDICTING GLOMERULAR FILTRATION RATE . ESTIMATED GFR I S NOT APPLICABLE FOR DIALYSIS PATIEN TS. Stitcher Hand ID - [id number] 11:47:52 Test Item Value Reference Range Interpretation Comments PHOSPHORUS (BEAKER) 2.6 mg/dL 2.3-4.7 Specimen slightly (test code = 604) hemolyzed Stitcher Hand ID - SO MBASIC METABOLIC [id number] 11:47:52 Test Item Value Reference Range Interpretation Comments SODIUM (BEAKER) 126 meq/L 136-145 L (test code = 381) POTASSIUM (BEAKER) 3.6 meq/L 3.5-5.1 Specimen slightly (test code = 379) hemolyzed CHLORIDE (BEAKER) 88 meq/L 98-107 L (test code = 382) CO2 (BEAKER) (test 28 meq/L 22-29 code = 355) BLOOD UREA NITROGEN 12 mg/dL 7-21 (BEAKER) (test code = 354) CREATININE (BEAKER) 0.83 mg/dL 0.57-1.25 Specimen slightly (test code = 358) hemolyzed GLUCOSE RANDOM 181 mg/dL 70-105 H (BEAKER) (test code = 652) CALCIUM (BEAKER) 8.4 mg/dL 8.4-10.2 (test code = 697) EGFR (BEAKER) (test 98 mL/min/1.73 ESTIMA NEELA GFR IS code = 1092) sq m NOT ACCURATE CREATININE CLEARANCE IN PREDICTING GLOMERULAR FILTRATION RATE . ESTIMATED GFR I S NOT APPLICABLE FOR DIALYSIS PATIEN TS. Stitcher Hand ID - SO [id number] 11:47:51 Test Item Value Reference Range Interpretation Comments MAGNESIUM (BEAKER) 1.8 mg/dL 1.6-2.6 Specimen slightly (test code = 627) hemolyzed Stitcher Hand ID - SO [id number] 04:03:23 Test Item Value Reference Range Interpretation Comments PHOSPHORUS (BEAKER) (test code = 3.0 mg/dL 2.3-4.7 604) Stitcher Hand ID - SO MHEPATIC FUNCTION [id number] 04:03:23 Test Item Value Reference Range Interpretation Comments TOTAL PROTEIN (BEAKER) (test code = 6.9 gm/dL 6.0-8.3 770) ALBUMIN (BEAKER) (test code = 1145) 3.7 g/dL 3.5-5.0 BILIRUBIN TOTAL (BEAKER) (test code 0.9 mg/dL 0.2-1.2 = 377) BILIRUBIN DIRECT (BEAKER) (test 0.6 mg/dL 0.1-0.5 H code = 706) ALKALINE PHOSPHATASE (BEAKER) (test 127 U/L 40-150 code = 346) AST (SGOT) (BEAKER) (test code = 20 U/L 5-34 353) ALT (SGPT) (BEAKER) (test code = 33 U/L 6-55 347) Stitcher Hand ID - SO [id number] 04:03:22 Test Item Value Reference Range Interpretation Comments MAGNESIUM (BEAKER) (test code = 1.9 mg/dL 1.6-2.6 627) Stitcher Hand ID - SO MBASIC METABOLIC [id number] 04:03:21 Test Item Value Reference Range Interpretation Comments SODIUM (BEAKER) 132 meq/L 136-145 L (test code = 381) POTASSIUM (BEAKER) 3.2 meq/L 3.5-5.1 L (test code = 379) CHLORIDE (BEAKER) 94 meq/L 98-107 L (test code = 382) CO2 (BEAKER) (test 25 meq/L 22-29 code = 355) ANION GAP (BEAKER) 16 meq/L (test code = 345) BLOOD UREA NITROGEN 13 mg/dL 7-21 (BEAKER) (test code = 354) CREATININE (BEAKER) 0.82 mg/dL 0.57-1.25 (test code = 358) BUN/CREATININE RATIO 15.9 (BEAKER) (test code = 1800) GLUCOSE RANDOM 110 mg/dL 70-105 H (BEAKER) (test code = 652) CALCIUM (BEAKER) 8.8 mg/dL 8.4-10.2 (test code = 697) EGFR (BEAKER) (test 99 mL/min/1.73 ESTIMA NEELA GFR IS code = 1092) sq m NOT ACCURATE CREATININE CLEARANCE IN PREDICTING GLOMERULAR FILTRATION RATE . ESTIMATED GFR I S NOT APPLICABLE FOR DIALYSIS PATIEN TS. Stitcher Hand ID - SO MLACTIC ACID, [id number] 03:43:14 Test Item Value Reference Range Interpretation Comments LACTATE BLOOD VENOUS (2) (BEAKER) 1.20 mmol/L 0.50-2.20 (test code = 1882) Stitcher Hand ID - SO MCBC (HEMOGRAM ONLY)2021-08-05 03:16:30 Test Item Value Reference Range Interpretation Comments WHITE BLOOD CELL COUNT (BEAKER) 7.5 K/ L 3.5-10.5 (test code = 775) RED BLOOD CELL COUNT (BEAKER) 3.34 M/ L 4.63-6.08 L (test code = 761) HEMOGLOBIN (BEAKER) (test code = 10.2 GM/DL 13.7-17.5 L 410) HEMATOCRIT (BEAKER) (test code = 32.9 % 40.1-51.0 L 411) MEAN CORPUSCULAR VOLUME (BEAKER) 98.5 fL 79.0-92.2 H (test code = 753) MEAN CORPUSCULAR HEMOGLOBIN 30.5 pg 25.7-32.2 (BEAKER) (test code = 751) MEAN CORPUSCULAR HEMOGLOBIN CONC 31.0 GM/DL 32.3-36.5 L (BEAKER) (test code = 752) RED CELL DISTRIBUTION WIDTH 19.4 % 11.6-14.4 H (BEAKER) (test code = 412) PLATELET COUNT (BEAKER) (test 200 K/CU MM 150-450 code = 756) MEAN PLATELET VOLUME (BEAKER) 9.5 fL 9.4-12.4 (test code = 754) NUCLEATED RED BLOOD CELLS 0 /100 WBC 0-0 (BEAKER) (test code = 413) OXYGEN SATURATION, [id number] 03:08:29 Test Item Value Reference Range Interpretation Comments O2 SATURATION (MEASURED) (BEAKER) 74.9 % (test code = 1455) BASIC METABOLIC [id number] 21:27:33 Test Item Value Reference Range Interpretation Comments SODIUM (BEAKER) 127 meq/L 136-145 L (test code = 381) POTASSIUM (BEAKER) 3.9 meq/L 3.5-5.1 (test code = 379) CHLORIDE (BEAKER) 92 meq/L 98-107 L (test code = 382) CO2 (BEAKER) (test 24 meq/L 22-29 code = 355) ANION GAP (BEAKER) 15 meq/L (test code = 345) BLOOD UREA NITROGEN 15 mg/dL 7-21 (BEAKER) (test code = 354) CREATININE (BEAKER) 1.01 mg/dL 0.57-1.25 (test code = 358) BUN/CREATININE RATIO 14.9 (BEAKER) (test code = 1800) GLUCOSE RANDOM 133 mg/dL 70-105 H (BEAKER) (test code = 652) CALCIUM (BEAKER) 8.7 mg/dL 8.4-10.2 (test code = 697) EGFR (BEAKER) (test 78 mL/min/1.73 ESTIMA NEELA GFR IS code = 1092) sq m NOT ACCURATE CREATININE CLEARANCE IN PREDICTING GLOMERULAR FILTRATION RATE . ESTIMATED GFR I S NOT APPLICABLE FOR DIALYSIS PATIEN TS. Stitcher Hand ID - [id number] 21:27:33 Test Item Value Reference Range Interpretation Comments MAGNESIUM (BEAKER) (test code = 1.7 mg/dL 1.6-2.6 627) Stitcher Hand ID - DBBASIC METABOLIC [id number] 16:45:00 Test Item Value Reference Range Interpretation Comments SODIUM (BEAKER) 130 meq/L 136-145 L (test code = 381) POTASSIUM (BEAKER) 4.0 meq/L 3.5-5.1 Specimen slightly (test code = 379) hemolyzed CHLORIDE (BEAKER) 92 meq/L 98-107 L (test code = 382) CO2 (BEAKER) (test 27 meq/L 22-29 code = 355) ANION GAP (BEAKER) 15 meq/L (test code = 345) BLOOD UREA NITROGEN 13 mg/dL 7-21 (BEAKER) (test code = 354) CREATININE (BEAKER) 0.80 mg/dL 0.57-1.25 Specimen slightly (test code = 358) hemolyzed BUN/CREATININE RATIO 16.3 (BEAKER) (test code = 1800) GLUCOSE RANDOM 112 mg/dL 70-105 H (BEAKER) (test code = 652) CALCIUM (BEAKER) 8.9 mg/dL 8.4-10.2 (test code = 697) EGFR (BEAKER) (test 102 mL/min/1.73 ESTIM ATED GFR IS code = 1092) sq m NOT ACCURATE CREATININE CLEARANCE IN PREDICTING GLOMERULAR FILTRATION RATE . ESTIMATED GFR I S NOT APPLICABLE FOR DIALYSIS PATIEN TS. Stitcher Hand ID - [id number] 16:44:59 Test Item Value Reference Range Interpretation Comments MAGNESIUM (BEAKER) 1.9 mg/dL 1.6-2.6 Specimen slightly (test code = 627) hemolyzed Stitcher Hand ID - [id number] 16:44:59 Test Item Value Reference Range Interpretation Comments PHOSPHORUS (BEAKER) 2.7 mg/dL 2.3-4.7 Specimen slightly (test code = 604) hemolyzed Stitcher Hand ID - [id number] 12:12:43 Test Item Value Reference Range Interpretation Comments PHOSPHORUS (BEAKER) (test code = 2.3 mg/dL 2.3-4.7 604) Stitcher Hand ID - EMERSONBASIC METABOLIC [id number] 12:12:42 Test Item Value Reference Range Interpretation Comments SODIUM (BEAKER) 130 meq/L 136-145 L (test code = 381) POTASSIUM (BEAKER) 3.5 meq/L 3.5-5.1 (test code = 379) CHLORIDE (BEAKER) 91 meq/L 98-107 L (test code = 382) CO2 (BEAKER) (test 27 meq/L 22-29 code = 355) ANION GAP (BEAKER) 16 meq/L (test code = 345) BLOOD UREA NITROGEN 13 mg/dL 7-21 (BEAKER) (test code = 354) CREATININE (BEAKER) 0.80 mg/dL 0.57-1.25 (test code = 358) BUN/CREATININE RATIO 16.3 (BEAKER) (test code = 1800) GLUCOSE RANDOM 90 mg/dL 70-105 (BEAKER) (test code = 652) CALCIUM (BEAKER) 8.6 mg/dL 8.4-10.2 (test code = 697) EGFR (BEAKER) (test 102 mL/min/1.73 ESTIM ATED GFR IS code = 1092) sq m NOT ACCURATE CREATININE CLEARANCE IN PREDICTING GLOMERULAR FILTRATION RATE . ESTIMATED GFR I S NOT APPLICABLE FOR DIALYSIS PATIEN TS. Stitcher Hand ID - EMERSONOperator ID - [id number] 12:12:42 Test Item Value Reference Range Interpretation Comments MAGNESIUM (BEAKER) (test code = 2.3 mg/dL 1.6-2.6 627) Stitcher Hand ID - [id number] 05:05:28 Test Item Value Reference Range Interpretation Comments PHOSPHORUS (BEAKER) (test code = 2.6 mg/dL 2.3-4.7 604) Stitcher Hand ID - DBHEPATIC FUNCTION [id number] 05:05:28 Test Item Value Reference Range Interpretation Comments TOTAL PROTEIN (BEAKER) (test code = 7.1 gm/dL 6.0-8.3 770) ALBUMIN (BEAKER) (test code = 1145) 3.9 g/dL 3.5-5.0 BILIRUBIN TOTAL (BEAKER) (test code 1.1 mg/dL 0.2-1.2 = 377) BILIRUBIN DIRECT (BEAKER) (test 0.6 mg/dL 0.1-0.5 H code = 706) ALKALINE PHOSPHATASE (BEAKER) (test 128 U/L 40-150 code = 346) AST (SGOT) (BEAKER) (test code = 20 U/L 5-34 353) ALT (SGPT) (BEAKER) (test code = 31 U/L 6-55 347) Stitcher Hand ID - DBBASIC METABOLIC [id number] 05:05:27 Test Item Value Reference Range Interpretation Comments SODIUM (BEAKER) 134 meq/L 136-145 L (test code = 381) POTASSIUM (BEAKER) 3.0 meq/L 3.5-5.1 L (test code = 379) CHLORIDE (BEAKER) 94 meq/L 98-107 L (test code = 382) CO2 (BEAKER) (test 28 meq/L 22-29 code = 355) BLOOD UREA NITROGEN 15 mg/dL 7-21 (BEAKER) (test code = 354) CREATININE (BEAKER) 0.80 mg/dL 0.57-1.25 (test code = 358) GLUCOSE RANDOM 106 mg/dL 70-105 H (BEAKER) (test code = 652) CALCIUM (BEAKER) 8.8 mg/dL 8.4-10.2 (test code = 697) EGFR (BEAKER) (test 102 mL/min/1.73 ESTIM ATED GFR IS code = 1092) sq m NOT ACCURATE CREATININE CLEARANCE IN PREDICTING GLOMERULAR FILTRATION RATE . ESTIMATED GFR I S NOT APPLICABLE FOR DIALYSIS PATIEN TS. Stitcher Hand ID - [id number] 05:05:27 Test Item Value Reference Range Interpretation Comments MAGNESIUM (BEAKER) (test code = 2.0 mg/dL 1.6-2.6 627) Stitcher Hand ID - DBLACTIC ACID, [id number] 04:18:44 Test Item Value Reference Range Interpretation Comments LACTATE BLOOD VENOUS (2) (BEAKER) 0.95 mmol/L 0.50-2.20 (test code = 2872) Stitcher Hand ID - [id number] WCBC (HEMOGRAM ONLY)2021-08-04 04:13:24 Test Item Value Reference Range Interpretation Comments WHITE BLOOD CELL COUNT (BEAKER) 7.5 K/ L 3.5-10.5 (test code = 775) RED BLOOD CELL COUNT (BEAKER) 3.46 M/ L 4.63-6.08 L (test code = 761) HEMOGLOBIN (BEAKER) (test code = 10.6 GM/DL 13.7-17.5 L 410) HEMATOCRIT (BEAKER) (test code = 33.8 % 40.1-51.0 L 411) MEAN CORPUSCULAR VOLUME (BEAKER) 97.7 fL 79.0-92.2 H (test code = 753) MEAN CORPUSCULAR HEMOGLOBIN 30.6 pg 25.7-32.2 (BEAKER) (test code = 751) MEAN CORPUSCULAR HEMOGLOBIN CONC 31.4 GM/DL 32.3-36.5 L (BEAKER) (test code = 752) RED CELL DISTRIBUTION WIDTH 19.5 % 11.6-14.4 H (BEAKER) (test code = 412) PLATELET COUNT (BEAKER) (test 195 K/CU MM 150-450 code = 756) MEAN PLATELET VOLUME (BEAKER) 9.6 fL 9.4-12.4 (test code = 754) NUCLEATED RED BLOOD CELLS 0 /100 WBC 0-0 (BEAKER) (test code = 413) OXYGEN SATURATION, [id number] 04:07:40 Test Item Value Reference Range Interpretation Comments O2 SATURATION (MEASURED) (BEAKER) 52.9 % (test code = 1455) [id number] 23:18:23 Test Item Value Reference Range Interpretation Comments PHOSPHORUS (BEAKER) (test code = 2.8 mg/dL 2.3-4.7 604) Stitcher Hand ID - DBBASIC METABOLIC [id number] 23:18:22 Test Item Value Reference Range Interpretation Comments SODIUM (BEAKER) 132 meq/L 136-145 L (test code = 381) POTASSIUM (BEAKER) 3.3 meq/L 3.5-5.1 L (test code = 379) CHLORIDE (BEAKER) 94 meq/L 98-107 L (test code = 382) CO2 (BEAKER) (test 25 meq/L 22-29 code = 355) BLOOD UREA NITROGEN 18 mg/dL 7-21 (BEAKER) (test code = 354) CREATININE (BEAKER) 0.95 mg/dL 0.57-1.25 (test code = 358) GLUCOSE RANDOM 146 mg/dL 70-105 H (BEAKER) (test code = 652) CALCIUM (BEAKER) 8.7 mg/dL 8.4-10.2 (test code = 697) EGFR (BEAKER) (test 84 mL/min/1.73 ESTIMA NEELA GFR IS code = 1092) sq m NOT ACCURATE CREATININE CLEARANCE IN PREDICTING GLOMERULAR FILTRATION RATE . ESTIMATED GFR I S NOT APPLICABLE FOR DIALYSIS PATIEN TS. Stitcher Hand ID - [id number] 23:18:22 Test Item Value Reference Range Interpretation Comments MAGNESIUM (BEAKER) (test code = 1.9 mg/dL 1.6-2.6 627) Stitcher Hand ID - DBBASIC METABOLIC [id number] 18:02:18 Test Item Value Reference Range Interpretation Comments SODIUM (BEAKER) 127 meq/L 136-145 L (test code = 381) POTASSIUM (BEAKER) 4.4 meq/L 3.5-5.1 (test code = 379) CHLORIDE (BEAKER) 94 meq/L 98-107 L (test code = 382) CO2 (BEAKER) (test 23 meq/L 22-29 code = 355) BLOOD UREA NITROGEN 19 mg/dL 7-21 (BEAKER) (test code = 354) CREATININE (BEAKER) 1.01 mg/dL 0.57-1.25 (test code = 358) GLUCOSE RANDOM 133 mg/dL 70-105 H (BEAKER) (test code = 652) CALCIUM (BEAKER) 8.5 mg/dL 8.4-10.2 (test code = 697) EGFR (BEAKER) (test 78 mL/min/1.73 ESTIMA NEELA GFR IS code = 1092) sq m NOT ACCURATE CREATININE CLEARANCE IN PREDICTING GLOMERULAR FILTRATION RATE . ESTIMATED GFR I S NOT APPLICABLE FOR DIALYSIS PATIEN TS. Stitcher Hand ID - ELLEN [id number] 18:02:18 Test Item Value Reference Range Interpretation Comments MAGNESIUM (BEAKER) (test code = 2.0 mg/dL 1.6-2.6 627) Stitcher Hand ID - ELLEN [id number] 14:43:44 Test Item Value Reference Range Interpretation Comments POTASSIUM (BEAKER) (test code = 3.3 meq/L 3.5-5.1 L 379) Stitcher Hand ID Sal [id number] 11:11:36 Test Item Value Reference Range Interpretation Comments PHOSPHORUS (BEAKER) (test code = 1.9 mg/dL 2.3-4.7 L 604) Stitcher Hand ID - YURYBASIC METABOLIC [id number] 11:11:35 Test Item Value Reference Range Interpretation Comments SODIUM (BEAKER) 129 meq/L 136-145 L (test code = 381) POTASSIUM (BEAKER) 3.0 meq/L 3.5-5.1 L (test code = 379) CHLORIDE (BEAKER) 93 meq/L 98-107 L (test code = 382) CO2 (BEAKER) (test 27 meq/L 22-29 code = 355) BLOOD UREA NITROGEN 16 mg/dL 7-21 (BEAKER) (test code = 354) CREATININE (BEAKER) 0.90 mg/dL 0.57-1.25 (test code = 358) GLUCOSE RANDOM 134 mg/dL 70-105 H (BEAKER) (test code = 652) CALCIUM (BEAKER) 8.6 mg/dL 8.4-10.2 (test code = 697) EGFR (BEAKER) (test 89 mL/min/1.73 ESTIMA NEELA GFR IS code = 1092) sq m NOT ACCURATE CREATININE CLEARANCE IN PREDICTING GLOMERULAR FILTRATION RATE . ESTIMATED GFR I S NOT APPLICABLE FOR DIALYSIS PATIEN TS. Stitcher Hand ID - [id number] 11:11:35 Test Item Value Reference Range Interpretation Comments MAGNESIUM (BEAKER) (test code = 1.9 mg/dL 1.6-2.6 627) Stitcher Hand ID - DBOXYGEN SATURATION, [id number] 06:26:53 Test Item Value Reference Range Interpretation Comments O2 SATURATION (MEASURED) (BEAKER) 74.6 % (test code = 1455) [id number] 04:28:07 Test Item Value Reference Range Interpretation Comments PHOSPHORUS (BEAKER) (test code = 2.0 mg/dL 2.3-4.7 L 604) Stitcher Hand ID - DBHEPATIC FUNCTION [id number] 04:28:07 Test Item Value Reference Range Interpretation Comments TOTAL PROTEIN (BEAKER) (test code = 7.3 gm/dL 6.0-8.3 770) ALBUMIN (BEAKER) (test code = 1145) 3.9 g/dL 3.5-5.0 BILIRUBIN TOTAL (BEAKER) (test code 1.1 mg/dL 0.2-1.2 = 377) BILIRUBIN DIRECT (BEAKER) (test 0.5 mg/dL 0.1-0.5 code = 706) ALKALINE PHOSPHATASE (BEAKER) (test 133 U/L 40-150 code = 346) AST (SGOT) (BEAKER) (test code = 21 U/L 5-34 353) ALT (SGPT) (BEAKER) (test code = 34 U/L 6-55 347) Stitcher Hand ID - DBCOMPREHENSIVE METABOLIC [id number] 04:28:06 Test Item Value Reference Range Interpretation Comments TOTAL PROTEIN 7.3 gm/dL 6.0-8.3 (BEAKER) (test code = 770) ALBUMIN (BEAKER) 3.9 g/dL 3.5-5.0 (test code = 1145) ALKALINE PHOSPHATASE 133 U/L 40-150 (BEAKER) (test code = 346) BILIRUBIN TOTAL 1.1 mg/dL 0.2-1.2 (BEAKER) (test code = 377) SODIUM (BEAKER) (test 130 meq/L 136-145 L code = 381) POTASSIUM (BEAKER) 4.5 meq/L 3.5-5.1 (test code = 379) CHLORIDE (BEAKER) 94 meq/L 98-107 L (test code = 382) CO2 (BEAKER) (test 25 meq/L 22-29 code = 355) BLOOD UREA NITROGEN 17 mg/dL 7-21 (BEAKER) (test code = 354) CREATININE (BEAKER) 0.98 mg/dL 0.57-1.25 (test code = 358) GLUCOSE RANDOM 123 mg/dL 70-105 H (BEAKER) (test code = 652) CALCIUM (BEAKER) 9.1 mg/dL 8.4-10.2 (test code = 697) AST (SGOT) (BEAKER) 21 U/L 5-34 (test code = 353) ALT (SGPT) (BEAKER) 34 U/L 6-55 (test code = 347) EGFR (BEAKER) (test 81 mL/min/1.73 ESTIMA NEELA GFR IS code = 1092) sq m NOT ACCURATE CREATININE CLEARANCE IN PREDICTING GLOMERULAR FILTRATION RATE . ESTIMATED GFR I S NOT APPLICABLE FOR DIALYSIS PATIEN TS. Stitcher Hand ID - [id number] 04:28:06 Test Item Value Reference Range Interpretation Comments MAGNESIUM (BEAKER) (test code = 2.2 mg/dL 1.6-2.6 627) Stitcher Hand ID - DBCBC W/PLT COUNT & AUTO [id number] 03:50:41 Test Item Value Reference Range Interpretation Comments WHITE BLOOD CELL COUNT (BEAKER) 8.4 K/ L 3.5-10.5 (test code = 775) RED BLOOD CELL COUNT (BEAKER) 3.59 M/ L 4.63-6.08 L (test code = 761) HEMOGLOBIN (BEAKER) (test code = 11.1 GM/DL 13.7-17.5 L 410) HEMATOCRIT (BEAKER) (test code = 34.5 % 40.1-51.0 L 411) MEAN CORPUSCULAR VOLUME (BEAKER) 96.1 fL 79.0-92.2 H (test code = 753) MEAN CORPUSCULAR HEMOGLOBIN 30.9 pg 25.7-32.2 (BEAKER) (test code = 751) MEAN CORPUSCULAR HEMOGLOBIN CONC 32.2 GM/DL 32.3-36.5 L (BEAKER) (test code = 752) RED CELL DISTRIBUTION WIDTH 19.8 % 11.6-14.4 H (BEAKER) (test code = 412) PLATELET COUNT (BEAKER) (test 208 K/CU MM 150-450 code = 756) MEAN PLATELET VOLUME (BEAKER) 9.4 fL 9.4-12.4 (test code = 754) NUCLEATED RED BLOOD CELLS 0 /100 WBC 0-0 (BEAKER) (test code = 413) NEUTROPHILS RELATIVE PERCENT 83 % (BEAKER) (test code = 429) LYMPHOCYTES RELATIVE PERCENT 10 % (BEAKER) (test code = 430) MONOCYTES RELATIVE PERCENT 5 % (BEAKER) (test code = 431) EOSINOPHILS RELATIVE PERCENT 2 % (BEAKER) (test code = 432) BASOPHILS RELATIVE PERCENT 0 % (BEAKER) (test code = 437) NEUTROPHILS ABSOLUTE COUNT 6.91 K/ L 1.78-5.38 H (BEAKER) (test code = 670) LYMPHOCYTES ABSOLUTE COUNT 0.85 K/ L 1.32-3.57 L (BEAKER) (test code = 414) MONOCYTES ABSOLUTE COUNT (BEAKER) 0.39 K/ L 0.30-0.82 (test code = 415) EOSINOPHILS ABSOLUTE COUNT 0.14 K/ L 0.04-0.54 (BEAKER) (test code = 416) BASOPHILS ABSOLUTE COUNT (BEAKER) 0.02 K/ L 0.01-0.08 (test code = 417) IMMATURE GRANULOCYTES-RELATIVE 1 % 0-1 PERCENT (BEAKER) (test code = 2801) LACTIC ACID, [id number] 03:44:16 Test Item Value Reference Range Interpretation Comments LACTATE BLOOD VENOUS (2) (BEAKER) 0.99 mmol/L 0.50-2.20 (test code = 2872) Stitcher Hand ID - DBCALCIUM, [id number] 03:30:26 Test Item Value Reference Range Interpretation Comments CALCIUM IONIZED (BEAKER) (test 1.09 mmol/L 1.12-1.27 L code = 698) PH, BLOOD (BEAKER) (test code = 7.43 1810) OXYGEN SATURATION, [id number] 03:28:14 Test Item Value Reference Range Interpretation Comments O2 SATURATION (MEASURED) (BEAKER) 53.7 % (test code = 1455) BASIC METABOLIC [id number] 22:38:13 Test Item Value Reference Range Interpretation Comments SODIUM (BEAKER) 123 meq/L 136-145 L (test code = 381) POTASSIUM (BEAKER) 5.2 meq/L 3.5-5.1 H (test code = 379) CHLORIDE (BEAKER) 90 meq/L 98-107 L (test code = 382) CO2 (BEAKER) (test 24 meq/L 22-29 code = 355) BLOOD UREA NITROGEN 19 mg/dL 7-21 (BEAKER) (test code = 354) CREATININE (BEAKER) 1.12 mg/dL 0.57-1.25 (test code = 358) GLUCOSE RANDOM 112 mg/dL 70-105 H (BEAKER) (test code = 652) CALCIUM (BEAKER) 9.1 mg/dL 8.4-10.2 (test code = 697) EGFR (BEAKER) (test 69 mL/min/1.73 ESTIMA NEELA GFR IS code = 1092) sq m NOT ACCURATE CREATININE CLEARANCE IN PREDICTING GLOMERULAR FILTRATION RATE . ESTIMATED GFR I S NOT APPLICABLE FOR DIALYSIS PATIEN TS. Stitcher Hand ID - DBBASIC METABOLIC [id number] 18:51:07 Test Item Value Reference Range Interpretation Comments SODIUM (BEAKER) 126 meq/L 136-145 L (test code = 381) POTASSIUM (BEAKER) 5.1 meq/L 3.5-5.1 Specimen slightly (test code = 379) hemolyzed CHLORIDE (BEAKER) 90 meq/L 98-107 L (test code = 382) CO2 (BEAKER) (test 26 meq/L 22-29 code = 355) BLOOD UREA NITROGEN 17 mg/dL 7-21 (BEAKER) (test code = 354) CREATININE (BEAKER) 0.99 mg/dL 0.57-1.25 Specimen slightly (test code = 358) hemolyzed GLUCOSE RANDOM 161 mg/dL 70-105 H (BEAKER) (test code = 652) CALCIUM (BEAKER) 9.0 mg/dL 8.4-10.2 (test code = 697) EGFR (BEAKER) (test 80 mL/min/1.73 ESTIMA NEELA GFR IS code = 1092) sq m NOT ACCURATE CREATININE CLEARANCE IN PREDICTING GLOMERULAR FILTRATION RATE . ESTIMATED GFR I S NOT APPLICABLE FOR DIALYSIS PATIEN TS. Stitcher Hand ID - SO [id number] 18:51:06 Test Item Value Reference Range Interpretation Comments PHOSPHORUS (BEAKER) 1.8 mg/dL 2.3-4.7 L Specimen slightly (test code = 604) hemolyzed Stitcher Hand ID - SO [id number] 18:51:05 Test Item Value Reference Range Interpretation Comments MAGNESIUM (BEAKER) 1.9 mg/dL 1.6-2.6 Specimen slightly (test code = 627) hemolyzed Stitcher Hand ID - SO [id number] 11:21:31 Test Item Value Reference Range Interpretation Comments PHOSPHORUS (BEAKER) 2.2 mg/dL 2.3-4.7 L Specimen slightly (test code = 604) hemolyzed Stitcher Hand ID - AAHAMIDBASIC METABOLIC [id number] 11:21:31 Test Item Value Reference Range Interpretation Comments SODIUM (BEAKER) 126 meq/L 136-145 L (test code = 381) POTASSIUM (BEAKER) 3.1 meq/L 3.5-5.1 L Specimen slightly (test code = 379) hemolyzed CHLORIDE (BEAKER) 86 meq/L 98-107 L (test code = 382) CO2 (BEAKER) (test 30 meq/L 22-29 H code = 355) BLOOD UREA NITROGEN 16 mg/dL 7-21 (BEAKER) (test code = 354) CREATININE (BEAKER) 0.94 mg/dL 0.57-1.25 Specimen slightly (test code = 358) hemolyzed GLUCOSE RANDOM 110 mg/dL 70-105 H (BEAKER) (test code = 652) CALCIUM (BEAKER) 8.8 mg/dL 8.4-10.2 (test code = 697) EGFR (BEAKER) (test 85 mL/min/1.73 ESTIMA NEELA GFR IS code = 1092) sq m NOT ACCURATE CREATININE CLEARANCE IN PREDICTING GLOMERULAR FILTRATION RATE . ESTIMATED GFR I S NOT APPLICABLE FOR DIALYSIS PATIEN TS. Stitcher Hand ID - [id number] 11:21:30 Test Item Value Reference Range Interpretation Comments MAGNESIUM (BEAKER) 2.4 mg/dL 1.6-2.6 Specimen slightly (test code = 627) hemolyzed Stitcher Hand ID - AAHAMIDHEPATIC FUNCTION [id number] 07:28:48 Test Item Value Reference Range Interpretation Comments TOTAL PROTEIN (BEAKER) 7.4 gm/dL 6.0-8.3 Speci men slightly (test code = 770) hemolyzed ALBUMIN (BEAKER) (test 4.0 g/dL 3.5-5.0 Speci men slightly code = 1145) hemolyzed BILIRUBIN TOTAL 1.0 mg/dL 0.2-1.2 Specimen sli ghtly (BEAKER) (test code = hemoly zed 377) BILIRUBIN DIRECT 0.4 mg/dL 0.1-0.5 Specimen sl ightly (BEAKER) (test code = hemoly zed 706) ALKALINE PHOSPHATASE 129 U/L 40-150 (BEAKER) (test code = 346) AST (SGOT) (BEAKER) 29 U/L 5-34 Specimen slightly (test code = 353) hemolyzed ALT (SGPT) (BEAKER) 39 U/L 6-55 Specimen slightly (test code = 347) hemolyzed Stitcher Hand ID - [id number] 07:28:47 Test Item Value Reference Range Interpretation Comments PHOSPHORUS (BEAKER) 2.4 mg/dL 2.3-4.7 Specimen slightly (test code = 604) hemolyzed Stitcher Hand ID - FSEBASIC METABOLIC [id number] 07:28:47 Test Item Value Reference Range Interpretation Comments SODIUM (BEAKER) 126 meq/L 136-145 L (test code = 381) POTASSIUM (BEAKER) 3.0 meq/L 3.5-5.1 L Specimen slightly (test code = 379) hemolyzed CHLORIDE (BEAKER) 85 meq/L 98-107 L (test code = 382) CO2 (BEAKER) (test 28 meq/L 22-29 code = 355) BLOOD UREA NITROGEN 17 mg/dL 7-21 (BEAKER) (test code = 354) CREATININE (BEAKER) 1.12 mg/dL 0.57-1.25 Specimen slightly (test code = 358) hemolyzed GLUCOSE RANDOM 131 mg/dL 70-105 H (BEAKER) (test code = 652) CALCIUM (BEAKER) 9.3 mg/dL 8.4-10.2 (test code = 697) EGFR (BEAKER) (test 69 mL/min/1.73 ESTIMA NEELA GFR IS code = 1092) sq m NOT ACCURATE CREATININE CLEARANCE IN PREDICTING GLOMERULAR FILTRATION RATE . ESTIMATED GFR I S NOT APPLICABLE FOR DIALYSIS PATIEN TS. Stitcher Hand ID - [id number] 07:28:46 Test Item Value Reference Range Interpretation Comments MAGNESIUM (BEAKER) 2.5 mg/dL 1.6-2.6 Specimen slightly (test code = 627) hemolyzed Stitcher Hand ID - FSELACTIC ACID, [id number] 06:55:53 Test Item Value Reference Range Interpretation Comments LACTATE BLOOD VENOUS 1.17 mmol/L 0.50-2.20 Specime n slightly (2) (BEAKER) (test hemolyzed code = 2872) Stitcher Hand ID - SO SELLERSXYGEN SATURATION, [id number] 06:48:04 Test Item Value Reference Range Interpretation Comments O2 SATURATION (MEASURED) (BEAKER) 71.1 % (test code = 1455) CBC (HEMOGRAM ONLY)2021-08-02 06:46:52 Test Item Value Reference Range Interpretation Comments WHITE BLOOD CELL COUNT (BEAKER) 9.2 K/ L 3.5-10.5 (test code = 775) RED BLOOD CELL COUNT (BEAKER) 3.60 M/ L 4.63-6.08 L (test code = 761) HEMOGLOBIN (BEAKER) (test code = 11.2 GM/DL 13.7-17.5 L 410) HEMATOCRIT (BEAKER) (test code = 33.7 % 40.1-51.0 L 411) MEAN CORPUSCULAR VOLUME (BEAKER) 93.6 fL 79.0-92.2 H (test code = 753) MEAN CORPUSCULAR HEMOGLOBIN 31.1 pg 25.7-32.2 (BEAKER) (test code = 751) MEAN CORPUSCULAR HEMOGLOBIN CONC 33.2 GM/DL 32.3-36.5 (BEAKER) (test code = 752) RED CELL DISTRIBUTION WIDTH 19.8 % 11.6-14.4 H (BEAKER) (test code = 412) PLATELET COUNT (BEAKER) (test 237 K/CU MM 150-450 code = 756) MEAN PLATELET VOLUME (BEAKER) 9.3 fL 9.4-12.4 L (test code = 754) NUCLEATED RED BLOOD CELLS 0 /100 WBC 0-0 (BEAKER) (test code = 413) BASIC METABOLIC [id number] 23:40:23 Test Item Value Reference Range Interpretation Comments SODIUM (BEAKER) 130 meq/L 136-145 L (test code = 381) POTASSIUM (BEAKER) 2.8 meq/L 3.5-5.1 L Specimen slightly (test code = 379) hemolyzed CHLORIDE (BEAKER) 90 meq/L 98-107 L (test code = 382) CO2 (BEAKER) (test 27 meq/L - code = 355) BLOOD UREA NITROGEN 17 mg/dL 7-21 (BEAKER) (test code = 354) CREATININE (BEAKER) 0.99 mg/dL 0.57-1.25 Specimen slightly (test code = 358) hemolyzed GLUCOSE RANDOM 117 mg/dL 70-105 H (BEAKER) (test code = 652) CALCIUM (BEAKER) 9.0 mg/dL 8.4-10.2 (test code = 697) EGFR (BEAKER) (test 80 mL/min/1.73 ESTIMA NEELA GFR IS code = 1092) sq m NOT ACCURATE CREATININE CLEARANCE IN PREDICTING GLOMERULAR FILTRATION RATE . ESTIMATED GFR I S NOT APPLICABLE FOR DIALYSIS PATIEN TS. Stitcher Hand ID - FSEOperator ID - [id number] 23:28:21 Test Item Value Reference Range Interpretation Comments MAGNESIUM (BEAKER) 1.9 mg/dL 1.6-2.6 Specimen slightly (test code = 627) hemolyzed Stitcher Hand ID - [id number] 23:28:21 Test Item Value Reference Range Interpretation Comments PHOSPHORUS (BEAKER) 2.9 mg/dL 2.3-4.7 Specimen slightly (test code = 604) hemolyzed Stitcher Hand ID - [id number] 16:36:25 Test Item Value Reference Range Interpretation Comments PHOSPHORUS (BEAKER) 2.8 mg/dL 2.3-4.7 Specimen slightly (test code = 604) hemolyzed Stitcher Hand ID - BSBASIC METABOLIC [id number] 16:36:25 Test Item Value Reference Range Interpretation Comments SODIUM (BEAKER) 129 meq/L 136-145 L (test code = 381) POTASSIUM (BEAKER) 3.7 meq/L 3.5-5.1 Specimen slightly (test code = 379) hemolyzed CHLORIDE (BEAKER) 91 meq/L 98-107 L (test code = 382) CO2 (BEAKER) (test 25 meq/L - code = 355) BLOOD UREA NITROGEN 16 mg/dL 7-21 (BEAKER) (test code = 354) CREATININE (BEAKER) 0.94 mg/dL 0.57-1.25 Specimen slightly (test code = 358) hemolyzed GLUCOSE RANDOM 101 mg/dL 70-105 (BEAKER) (test code = 652) CALCIUM (BEAKER) 9.3 mg/dL 8.4-10.2 (test code = 697) EGFR (BEAKER) (test 85 mL/min/1.73 ESTIMA NEELA GFR IS code = 1092) sq m NOT ACCURATE CREATININE CLEARANCE IN PREDICTING GLOMERULAR FILTRATION RATE . ESTIMATED GFR I S NOT APPLICABLE FOR DIALYSIS PATIEN TS. Stitcher Hand ID - BSOXYGEN SATURATION, [id number] 16:01:05 Test Item Value Reference Range Interpretation Comments O2 SATURATION (MEASURED) (BEAKER) 54.0 % (test code = 1455) BASIC METABOLIC [id number] 10:43:36 Test Item Value Reference Range Interpretation Comments SODIUM (BEAKER) 128 meq/L 136-145 L (test code = 381) POTASSIUM (BEAKER) 3.2 meq/L 3.5-5.1 L Specimen slightly (test code = 379) hemolyzed CHLORIDE (BEAKER) 88 meq/L 98-107 L (test code = 382) CO2 (BEAKER) (test 28 meq/L 22-29 code = 355) BLOOD UREA NITROGEN 16 mg/dL 7-21 (BEAKER) (test code = 354) CREATININE (BEAKER) 0.96 mg/dL 0.57-1.25 Specimen slightly (test code = 358) hemolyzed GLUCOSE RANDOM 108 mg/dL 70-105 H (BEAKER) (test code = 652) CALCIUM (BEAKER) 9.3 mg/dL 8.4-10.2 (test code = 697) EGFR (BEAKER) (test 83 mL/min/1.73 ESTIMA NEELA GFR IS code = 1092) sq m NOT ACCURATE CREATININE CLEARANCE IN PREDICTING GLOMERULAR FILTRATION RATE . ESTIMATED GFR I S NOT APPLICABLE FOR DIALYSIS PATIEN TS. Stitcher Hand ID - ELLEN [id number] 10:43:35 Test Item Value Reference Range Interpretation Comments MAGNESIUM (BEAKER) 2.0 mg/dL 1.6-2.6 Specimen slightly (test code = 627) hemolyzed Stitcher Hand ID - ELLEN WOXYGEN SATURATION, [id number] 10:15:47 Test Item Value Reference Range Interpretation Comments O2 SATURATION (MEASURED) (BEAKER) 49.7 % (test code = 1455) HEPATIC FUNCTION [id number] 07:24:21 Test Item Value Reference Range Interpretation Comments TOTAL PROTEIN (BEAKER) 7.7 gm/dL 6.0-8.3 Speci men slightly (test code = 770) hemolyzed ALBUMIN (BEAKER) (test 4.1 g/dL 3.5-5.0 Speci men slightly code = 1145) hemolyzed BILIRUBIN TOTAL 1.1 mg/dL 0.2-1.2 Specimen sli ghtly (BEAKER) (test code = hemoly zed 377) BILIRUBIN DIRECT 0.4 mg/dL 0.1-0.5 Specimen sl ightly (BEAKER) (test code = hemoly zed 706) ALKALINE PHOSPHATASE 134 U/L 40-150 (BEAKER) (test code = 346) AST (SGOT) (BEAKER) 36 U/L 5-34 H Specimen slightly (test code = 353) hemolyzed ALT (SGPT) (BEAKER) 48 U/L 6-55 Specimen slightly (test code = 347) hemolyzed Stitcher Hand ID - SOCO Cadetgeraldo ID - FAUZIA WBASIC METABOLIC [id number] 07:24:20 Test Item Value Reference Range Interpretation Comments SODIUM (BEAKER) 128 meq/L 136-145 L (test code = 381) POTASSIUM (BEAKER) 3.5 meq/L 3.5-5.1 Specimen slightly (test code = 379) hemolyzed CHLORIDE (BEAKER) 90 meq/L 98-107 L (test code = 382) CO2 (BEAKER) (test 23 meq/L 22-29 code = 355) BLOOD UREA NITROGEN 17 mg/dL 7-21 (BEAKER) (test code = 354) CREATININE (BEAKER) 1.01 mg/dL 0.57-1.25 Specimen slightly (test code = 358) hemolyzed GLUCOSE RANDOM 119 mg/dL 70-105 H (BEAKER) (test code = 652) CALCIUM (BEAKER) 9.4 mg/dL 8.4-10.2 (test code = 697) EGFR (BEAKER) (test 78 mL/min/1.73 ESTIMA NEELA GFR IS code = 1092) sq m NOT ACCURATE CREATININE CLEARANCE IN PREDICTING GLOMERULAR FILTRATION RATE . ESTIMATED GFR I S NOT APPLICABLE FOR DIALYSIS PATIEN TS. Stitcher Hand ID Sal CAGE [id number] 07:24:19 Test Item Value Reference Range Interpretation Comments MAGNESIUM (BEAKER) 2.0 mg/dL 1.6-2.6 Specimen slightly (test code = 627) hemolyzed Stitcher Hand JESSICA CAGE WLACTIC ACID, [id number] 05:38:54 Test Item Value Reference Range Interpretation Comments LACTATE BLOOD VENOUS 1.23 mmol/L 0.50-2.20 Specime n slightly (2) (BEAKER) (test hemolyzed code = 2872) Stitcher Hand ID Sal CAGE WCBC (HEMOGRAM ONLY)2021-08-01 05:19:36 Test Item Value Reference Range Interpretation Comments WHITE BLOOD CELL COUNT (BEAKER) 8.6 K/ L 3.5-10.5 (test code = 775) RED BLOOD CELL COUNT (BEAKER) 3.73 M/ L 4.63-6.08 L (test code = 761) HEMOGLOBIN (BEAKER) (test code = 11.4 GM/DL 13.7-17.5 L 410) HEMATOCRIT (BEAKER) (test code = 35.2 % 40.1-51.0 L 411) MEAN CORPUSCULAR VOLUME (BEAKER) 94.4 fL 79.0-92.2 H (test code = 753) MEAN CORPUSCULAR HEMOGLOBIN 30.6 pg 25.7-32.2 (BEAKER) (test code = 751) MEAN CORPUSCULAR HEMOGLOBIN CONC 32.4 GM/DL 32.3-36.5 (BEAKER) (test code = 752) RED CELL DISTRIBUTION WIDTH 19.7 % 11.6-14.4 H (BEAKER) (test code = 412) PLATELET COUNT (BEAKER) (test 229 K/CU MM 150-450 code = 756) MEAN PLATELET VOLUME (BEAKER) 9.1 fL 9.4-12.4 L (test code = 754) NUCLEATED RED BLOOD CELLS 0 /100 WBC 0-0 (BEAKER) (test code = 413) BASIC METABOLIC [id number] 21:56:09 Test Item Value Reference Range Interpretation Comments SODIUM (BEAKER) 127 meq/L 136-145 L (test code = 381) POTASSIUM (BEAKER) 2.8 meq/L 3.5-5.1 L Specimen slightly (test code = 379) hemolyzed CHLORIDE (BEAKER) 88 meq/L 98-107 L (test code = 382) CO2 (BEAKER) (test 24 meq/L 22-29 code = 355) BLOOD UREA NITROGEN 18 mg/dL 7-21 (BEAKER) (test code = 354) CREATININE (BEAKER) 1.05 mg/dL 0.57-1.25 Specimen slightly (test code = 358) hemolyzed GLUCOSE RANDOM 134 mg/dL 70-105 H (BEAKER) (test code = 652) CALCIUM (BEAKER) 9.2 mg/dL 8.4-10.2 (test code = 697) EGFR (BEAKER) (test 75 mL/min/1.73 ESTIMA NEELA GFR IS code = 1092) sq m NOT ACCURATE CREATININE CLEARANCE IN PREDICTING GLOMERULAR FILTRATION RATE . ESTIMATED GFR I S NOT APPLICABLE FOR DIALYSIS PATIEN TS. Stitcher Hand ID - [id number] 21:56:08 Test Item Value Reference Range Interpretation Comments MAGNESIUM (BEAKER) 2.2 mg/dL 1.6-2.6 Specimen slightly (test code = 627) hemolyzed Stitcher Hand ID - BSBASIC METABOLIC [id number] 17:38:57 Test Item Value Reference Range Interpretation Comments SODIUM (BEAKER) 128 meq/L 136-145 L (test code = 381) POTASSIUM (BEAKER) 3.5 meq/L 3.5-5.1 (test code = 379) CHLORIDE (BEAKER) 91 meq/L 98-107 L (test code = 382) CO2 (BEAKER) (test 24 meq/L 22-29 code = 355) BLOOD UREA NITROGEN 19 mg/dL 7-21 (BEAKER) (test code = 354) CREATININE (BEAKER) 1.11 mg/dL 0.57-1.25 (test code = 358) GLUCOSE RANDOM 146 mg/dL 70-105 H (BEAKER) (test code = 652) CALCIUM (BEAKER) 9.1 mg/dL 8.4-10.2 (test code = 697) EGFR (BEAKER) (test 70 mL/min/1.73 ESTIMA NEELA GFR IS code = 1092) sq m NOT ACCURATE CREATININE CLEARANCE IN PREDICTING GLOMERULAR FILTRATION RATE . ESTIMATED GFR I S NOT APPLICABLE FOR DIALYSIS PATIEN TS. Stitcher Hand ID - BSOXYGEN SATURATION, [id number] 14:19:12 Test Item Value Reference Range Interpretation Comments O2 SATURATION (MEASURED) (BEAKER) 53.1 % (test code = 1455) BASIC METABOLIC [id number] 12:49:26 Test Item Value Reference Range Interpretation Comments SODIUM (BEAKER) 130 meq/L 136-145 L (test code = 381) POTASSIUM (BEAKER) 3.1 meq/L 3.5-5.1 L Specimen slightly (test code = 379) hemolyzed CHLORIDE (BEAKER) 92 meq/L 98-107 L (test code = 382) CO2 (BEAKER) (test 25 meq/L 22-29 code = 355) BLOOD UREA NITROGEN 21 mg/dL 7-21 (BEAKER) (test code = 354) CREATININE (BEAKER) 1.18 mg/dL 0.57-1.25 Specimen slightly (test code = 358) hemolyzed GLUCOSE RANDOM 156 mg/dL 70-105 H (BEAKER) (test code = 652) CALCIUM (BEAKER) 9.3 mg/dL 8.4-10.2 (test code = 697) EGFR (BEAKER) (test 65 mL/min/1.73 ESTIMA NEELA GFR IS code = 1092) sq m NOT ACCURATE CREATININE CLEARANCE IN PREDICTING GLOMERULAR FILTRATION RATE . ESTIMATED GFR I S NOT APPLICABLE FOR DIALYSIS PATIEN TS. Stitcher Hand ID - SO [id number] 12:49:25 Test Item Value Reference Range Interpretation Comments MAGNESIUM (BEAKER) 1.9 mg/dL 1.6-2.6 Specimen slightly (test code = 627) hemolyzed Stitcher Hand ID - SO MOXYGEN SATURATION, [id number] 08:28:07 Test Item Value Reference Range Interpretation Comments O2 SATURATION (MEASURED) (BEAKER) 82.9 % (test code = 1455) HEPATIC FUNCTION [id number] 02:58:36 Test Item Value Reference Range Interpretation Comments TOTAL PROTEIN (BEAKER) (test code = 7.2 gm/dL 6.0-8.3 770) ALBUMIN (BEAKER) (test code = 1145) 4.1 g/dL 3.5-5.0 BILIRUBIN TOTAL (BEAKER) (test code 1.1 mg/dL 0.2-1.2 = 377) BILIRUBIN DIRECT (BEAKER) (test 0.6 mg/dL 0.1-0.5 H code = 706) ALKALINE PHOSPHATASE (BEAKER) (test 132 U/L 40-150 code = 346) AST (SGOT) (BEAKER) (test code = 32 U/L 5-34 353) ALT (SGPT) (BEAKER) (test code = 58 U/L 6-55 H 347) Stitcher Hand ID - SOCO LBASIC METABOLIC [id number] 02:58:35 Test Item Value Reference Range Interpretation Comments SODIUM (BEAKER) 126 meq/L 136-145 L (test code = 381) POTASSIUM (BEAKER) 3.7 meq/L 3.5-5.1 (test code = 379) CHLORIDE (BEAKER) 89 meq/L 98-107 L (test code = 382) CO2 (BEAKER) (test 25 meq/L 22-29 code = 355) BLOOD UREA NITROGEN 25 mg/dL 7-21 H (BEAKER) (test code = 354) CREATININE (BEAKER) 1.51 mg/dL 0.57-1.25 H (test code = 358) GLUCOSE RANDOM 156 mg/dL 70-105 H (BEAKER) (test code = 652) CALCIUM (BEAKER) 9.2 mg/dL 8.4-10.2 (test code = 697) EGFR (BEAKER) (test 49 mL/min/1.73 ESTIMA NEELA GFR IS code = 1092) sq m NOT ACCURATE CREATININE CLEARANCE IN PREDICTING GLOMERULAR FILTRATION RATE . ESTIMATED GFR I S NOT APPLICABLE FOR DIALYSIS PATIEN TS. Stitcher Hand ID - SOCO [id number] 02:58:35 Test Item Value Reference Range Interpretation Comments MAGNESIUM (BEAKER) (test code = 2.0 mg/dL 1.6-2.6 627) Stitcher Hand ID - SOCO LLACTIC ACID, [id number] 02:52:54 Test Item Value Reference Range Interpretation Comments LACTATE BLOOD VENOUS 1.70 mmol/L 0.50-2.20 Specime n slightly (2) (BEAKER) (test hemolyzed code = 8224) Stitcher Hand ID - SOCO LCBC (HEMOGRAM ONLY)[id number] 02:45:49 Test Item Value Reference Range Interpretation Comments WHITE BLOOD CELL COUNT (BEAKER) 10.0 K/ L 3.5-10.5 (test code = 775) RED BLOOD CELL COUNT (BEAKER) 3.61 M/ L 4.63-6.08 L (test code = 761) HEMOGLOBIN (BEAKER) (test code = 11.0 GM/DL 13.7-17.5 L 410) HEMATOCRIT (BEAKER) (test code = 35.0 % 40.1-51.0 L 411) MEAN CORPUSCULAR VOLUME (BEAKER) 97.0 fL 79.0-92.2 H (test code = 753) MEAN CORPUSCULAR HEMOGLOBIN 30.5 pg 25.7-32.2 (BEAKER) (test code = 751) MEAN CORPUSCULAR HEMOGLOBIN CONC 31.4 GM/DL 32.3-36.5 L (BEAKER) (test code = 752) RED CELL DISTRIBUTION WIDTH 20.2 % 11.6-14.4 H (BEAKER) (test code = 412) PLATELET COUNT (BEAKER) (test 277 K/CU MM 150-450 code = 756) MEAN PLATELET VOLUME (BEAKER) 9.2 fL 9.4-12.4 L (test code = 754) NUCLEATED RED BLOOD CELLS 0 /100 WBC 0-0 (BEAKER) (test code = 413) [id number] 18:27:20 Test Item Value Reference Range Interpretation Comments MAGNESIUM (BEAKER) 2.3 mg/dL 1.6-2.6 Specimen slightly (test code = 627) hemolyzed Stitcher Hand ID - SO MBASIC METABOLIC [id number] 18:27:20 Test Item Value Reference Range Interpretation Comments SODIUM (BEAKER) 127 meq/L 136-145 L (test code = 381) POTASSIUM (BEAKER) 4.4 meq/L 3.5-5.1 Specimen slightly (test code = 379) hemolyzed CHLORIDE (BEAKER) 94 meq/L 98-107 L (test code = 382) CO2 (BEAKER) (test 20 meq/L 22-29 L code = 355) BLOOD UREA NITROGEN 28 mg/dL 7-21 H (BEAKER) (test code = 354) CREATININE (BEAKER) 1.62 mg/dL 0.57-1.25 H Specimen slightly (test code = 358) hemolyzed GLUCOSE RANDOM 184 mg/dL 70-105 H (BEAKER) (test code = 652) CALCIUM (BEAKER) 9.5 mg/dL 8.4-10.2 (test code = 697) EGFR (BEAKER) (test 45 mL/min/1.73 ESTIMA NEELA GFR IS code = 1092) sq m NOT ACCURATE CREATININE CLEARANCE IN PREDICTING GLOMERULAR FILTRATION RATE . ESTIMATED GFR I S NOT APPLICABLE FOR DIALYSIS PATIEN TS. Stitcher Hand ID - SO MBASIC METABOLIC [id number] 13:48:09 Test Item Value Reference Range Interpretation Comments SODIUM (BEAKER) 130 meq/L 136-145 L (test code = 381) POTASSIUM (BEAKER) 4.5 meq/L 3.5-5.1 Specimen slightly (test code = 379) hemolyzed CHLORIDE (BEAKER) 95 meq/L 98-107 L (test code = 382) CO2 (BEAKER) (test 23 meq/L 22-29 code = 355) BLOOD UREA NITROGEN 30 mg/dL 7-21 H (BEAKER) (test code = 354) CREATININE (BEAKER) 1.68 mg/dL 0.57-1.25 H Specimen slightly (test code = 358) hemolyzed GLUCOSE RANDOM 168 mg/dL 70-105 H (BEAKER) (test code = 652) CALCIUM (BEAKER) 9.9 mg/dL 8.4-10.2 (test code = 697) EGFR (BEAKER) (test 43 mL/min/1.73 ESTIMA NEELA GFR IS code = 1092) sq m NOT ACCURATE CREATININE CLEARANCE IN PREDICTING GLOMERULAR FILTRATION RATE . ESTIMATED GFR I S NOT APPLICABLE FOR DIALYSIS PATIEN TS. Stitcher Hand ID - SO [id number] 13:48:08 Test Item Value Reference Range Interpretation Comments MAGNESIUM (BEAKER) 2.1 mg/dL 1.6-2.6 Specimen slightly (test code = 627) hemolyzed Stitcher Hand ID - SO MBASIC METABOLIC [id number] 11:16:32 Test Item Value Reference Range Interpretation Comments SODIUM (BEAKER) 133 meq/L 136-145 L (test code = 381) POTASSIUM (BEAKER) 4.1 meq/L 3.5-5.1 (test code = 379) CHLORIDE (BEAKER) 95 meq/L 98-107 L (test code = 382) CO2 (BEAKER) (test 23 meq/L 22-29 code = 355) BLOOD UREA NITROGEN 27 mg/dL 7-21 H (BEAKER) (test code = 354) CREATININE (BEAKER) 1.51 mg/dL 0.57-1.25 H (test code = 358) GLUCOSE RANDOM 132 mg/dL 70-105 H (BEAKER) (test code = 652) CALCIUM (BEAKER) 10.1 mg/dL 8.4-10.2 (test code = 697) EGFR (BEAKER) (test 49 mL/min/1.73 ESTIMA NEELA GFR IS code = 1092) sq m NOT ACCURATE CREATININE CLEARANCE IN PREDICTING GLOMERULAR FILTRATION RATE . ESTIMATED GFR I S NOT APPLICABLE FOR DIALYSIS PATIEN TS. Stitcher Hand ID - SO MOXYGEN SATURATION, [id number] 10:22:59 Test Item Value Reference Range Interpretation Comments O2 SATURATION (MEASURED) (BEAKER) 57.2 % (test code = 1455) [id number] 07:32:44 Test Item Value Reference Range Interpretation Comments MAGNESIUM (BEAKER) 2.4 mg/dL 1.6-2.6 Specimen slightly (test code = 627) hemolyzed Stitcher Hand ID - SO MHEPATIC FUNCTION [id number] 07:32:44 Test Item Value Reference Range Interpretation Comments TOTAL PROTEIN (BEAKER) 7.9 gm/dL 6.0-8.3 Speci men slightly (test code = 770) hemolyzed ALBUMIN (BEAKER) (test 4.2 g/dL 3.5-5.0 Speci men slightly code = 1145) hemolyzed BILIRUBIN TOTAL 1.6 mg/dL 0.2-1.2 H Specimen sli ghtly (BEAKER) (test code = hemoly zed 377) BILIRUBIN DIRECT 0.8 mg/dL 0.1-0.5 H Specimen sl ightly (BEAKER) (test code = hemoly zed 706) ALKALINE PHOSPHATASE 165 U/L 40-150 H (BEAKER) (test code = 346) AST (SGOT) (BEAKER) 52 U/L 5-34 H Specimen slightly (test code = 353) hemolyzed ALT (SGPT) (BEAKER) 71 U/L 6-55 H Specimen slightly (test code = 347) hemolyzed Stitcher Hand ID - SO MPOCT-GLUCOSE [id number] 07:22:08 Test Item Value Reference Range Interpretation Comments POC-GLUCOSE METER 133 mg/dL 70-110 H : TESTED A T [facility] 6720 (BEAKER) (test code = [place], 1538) [id number]: Stitcher Hand/Techni ebenezer ID = [id number] for JERO CRUZ CBC (HEMOGRAM ONLY)2021-07-30 06:13:17 Test Item Value Reference Range Interpretation Comments WHITE BLOOD CELL COUNT (BEAKER) 8.7 K/ L 3.5-10.5 (test code = 775) RED BLOOD CELL COUNT (BEAKER) 4.03 M/ L 4.63-6.08 L (test code = 761) HEMOGLOBIN (BEAKER) (test code = 12.3 GM/DL 13.7-17.5 L 410) HEMATOCRIT (BEAKER) (test code = 38.9 % 40.1-51.0 L 411) MEAN CORPUSCULAR VOLUME (BEAKER) 96.5 fL 79.0-92.2 H (test code = 753) MEAN CORPUSCULAR HEMOGLOBIN 30.5 pg 25.7-32.2 (BEAKER) (test code = 751) MEAN CORPUSCULAR HEMOGLOBIN CONC 31.6 GM/DL 32.3-36.5 L (BEAKER) (test code = 752) RED CELL DISTRIBUTION WIDTH 20.6 % 11.6-14.4 H (BEAKER) (test code = 412) PLATELET COUNT (BEAKER) (test 300 K/CU MM 150-450 code = 756) MEAN PLATELET VOLUME (BEAKER) 9.1 fL 9.4-12.4 L (test code = 754) NUCLEATED RED BLOOD CELLS 0 /100 WBC 0-0 (BEAKER) (test code = 413) LACTIC ACID, [id number] 05:57:29 Test Item Value Reference Range Interpretation Comments LACTATE BLOOD VENOUS 0.96 mmol/L 0.50-2.20 Specime n slightly (2) (BEAKER) (test hemolyzed code = 7571) Stitcher Hand ID - SO MSARS-COV2/RT-PCR ([facility])2021-07-30 05:11:52 Test Item Value Reference Range Interpretation Comments SARS-COV2/RT-PCR (test code = Negative Negative [id number]) Negative result for this test determines that SARS-CoV-2 RNA was not present in the specimen above the Limit of Detection (LOD). However, Negative results do not preclude SARS-CoV-2 infection and should not be used as the sole basis for treatment or patient management decisions. Negative results must be combined with clinical observations, patient history, and epidemiological information. A false negative result may occur if a specimen is improperly collected, transported, or handled. A false negative result should be considered if patient's recent exposures or clinical presentation indicate that COVID-19 (SARS-CoV-2) is likely and diagnostic tests for other causes of illness are negative. Re-testing should be considered in cases of suspected false negatives.The limit of detection for this assay is 100 copies/mL.This SARS-CoV-2 test is a real-time RT_PCR test intended for the qualitative detection of nucleic acid from SARS-CoV-2 in a nasopharyngeal swab specimen collected from individuals suspected of COVID-19 by their healthcare provider.This test has not been Food and Drug Administration (FDA) cleared or approved. This is a modified version of an approved Emergency Use Authorization (EUA) and is in the process of review by the FDA. Once authorized by the FDA, the issued EUA will be effective until the declaration that circumstances exist justifying the authorization of the emergency use of in vitro diagnostic tests for detection and/or diagnosis of COVID-19 is terminated under Section 564(b)(2) of the Act or the EUA is revoked under Section 564(g) of the Act.Testing was performed using the [employer] SARS-CoV-2 assay.Fact Sheet for Healthcare Providers:https://www.molecular.pittman/eduardo/RT SARS-CoV-2 HCP Fact Sheet 51- 361491.pdfFact Sheet for Healthcare Patients:https://www.molecular.pittman/eduardo/RT SARS-CoV-2 Patient Fact Sheet EN 51-053728I5.pdfBASIC METABOLIC [id number] 00:36:31 Test Item Value Reference Range Interpretation Comments SODIUM (BEAKER) 132 meq/L 136-145 L (test code = 381) POTASSIUM (BEAKER) 4.9 meq/L 3.5-5.1 Specimen moderately (test code = 379) hemolyzed CHLORIDE (BEAKER) 92 meq/L 98-107 L (test code = 382) CO2 (BEAKER) (test 26 meq/L 22-29 code = 355) BLOOD UREA NITROGEN 30 mg/dL 7-21 H (BEAKER) (test code = 354) CREATININE (BEAKER) 1.67 mg/dL 0.57-1.25 H Specimen moderately (test code = 358) hemolyzed GLUCOSE RANDOM 138 mg/dL 70-105 H (BEAKER) (test code = 652) CALCIUM (BEAKER) 9.9 mg/dL 8.4-10.2 (test code = 697) EGFR (BEAKER) (test 44 mL/min/1.73 ESTIMA NEELA GFR IS code = 1092) sq m NOT ACCURATE CREATININE CLEARANCE IN PREDICTING GLOMERULAR FILTRATION RATE . ESTIMATED GFR I S NOT APPLICABLE FOR DIALYSIS PATIEN TS. Stitcher Hand ID - PIAYA [id number] 22:14:07 Test Item Value Reference Range Interpretation Comments MAGNESIUM (BEAKER) (test code = 2.1 mg/dL 1.6-2.6 627) Stitcher Hand ID - [id number] 18:41:51 Test Item Value Reference Range Interpretation Comments MAGNESIUM (BEAKER) (test code = 2.1 mg/dL 1.6-2.6 627) Stitcher Hand ID - ADMINBASIC METABOLIC [id number] 18:41:50 Test Item Value Reference Range Interpretation Comments SODIUM (BEAKER) 131 meq/L 136-145 L (test code = 381) POTASSIUM (BEAKER) 4.1 meq/L 3.5-5.1 (test code = 379) CHLORIDE (BEAKER) 92 meq/L 98-107 L (test code = 382) CO2 (BEAKER) (test 24 meq/L 22-29 code = 355) BLOOD UREA NITROGEN 30 mg/dL 7-21 H (BEAKER) (test code = 354) CREATININE (BEAKER) 1.54 mg/dL 0.57-1.25 H (test code = 358) GLUCOSE RANDOM 148 mg/dL 70-105 H (BEAKER) (test code = 652) CALCIUM (BEAKER) 9.9 mg/dL 8.4-10.2 (test code = 697) EGFR (BEAKER) (test 48 mL/min/1.73 ESTIMA NEELA GFR IS code = 1092) sq m NOT ACCURATE CREATININE CLEARANCE IN PREDICTING GLOMERULAR FILTRATION RATE . ESTIMATED GFR I S NOT APPLICABLE FOR DIALYSIS PATIEN TS. Stitcher Hand ID - ADMINPOCT-GLUCOSE [id number] 16:14:05 Test Item Value Reference Range Interpretation Comments POC-GLUCOSE METER 140 mg/dL 70-110 H : TESTED A T [facility] 6720 (BEAKER) (test code = [place], 1538) [id number]: Stitcher Hand/Techni ebenezer ID = [id number] for SABA CABRAL BASIC METABOLIC [id number] 16:11:10 Test Item Value Reference Range Interpretation Comments SODIUM (BEAKER) 131 meq/L 136-145 L (test code = 381) POTASSIUM (BEAKER) 3.6 meq/L 3.5-5.1 Specimen slightly (test code = 379) hemolyzed CHLORIDE (BEAKER) 92 meq/L 98-107 L (test code = 382) CO2 (BEAKER) (test 32 meq/L 22-29 H code = 355) BLOOD UREA NITROGEN 26 mg/dL 7-21 H (BEAKER) (test code = 354) CREATININE (BEAKER) 1.39 mg/dL 0.57-1.25 H Specimen slightly (test code = 358) hemolyzed GLUCOSE RANDOM 139 mg/dL 70-105 H (BEAKER) (test code = 652) CALCIUM (BEAKER) 9.9 mg/dL 8.4-10.2 (test code = 697) EGFR (BEAKER) (test 54 mL/min/1.73 ESTIMA NEELA GFR IS code = 1092) sq m NOT ACCURATE CREATININE CLEARANCE IN PREDICTING GLOMERULAR FILTRATION RATE . ESTIMATED GFR I S NOT APPLICABLE FOR DIALYSIS PATIEN TS. [id number] 16:11:08 Test Item Value Reference Range Interpretation Comments MAGNESIUM (BEAKER) 2.2 mg/dL 1.6-2.6 Specimen slightly (test code = 627) hemolyzed CT, BRAIN, WITHOUT [id number] 15:57:00Unlisted Reason for Exam - Click Yes and Enter Reason Below->YesUnlisted Reason for Exam->somnolent [facility] WEST : 1970 Sex: MFINAL REPORT CT, BRAIN, WITHOUT CONTRAST INDICATION: Unlisted Reason for Examsomnolent TECHNIQUE: Noncontrast axial imaging was obtained from the vertex to the skull base. Axial images were reconstructed using a bone algorithm. DOSE REDUCTION: Dose modulation, iterative reconstruction,and/or weight-based adjustment of the mA/kV was utilized to reduce the radiation dose to as low as reasonably achievable. COMPARISON: CT 05/20/2021 FINDINGS: Intracranial: No intracranial hemorrhage or abnormal extra-axial collection. No evidence of acute territorial infarct. No mass effect. No hydrocephalus. Mild generalized cerebral volume loss. Scattered foci of hypoattenuation within the periventri cular and subcortical white matter are a nonspecific finding commonly attributed to chronic small vessel ischemic disease. Osseous structures: No fracture. No suspicious lesion. Paranasal sinuses and mastoid air cells: No evidence of sinusitis. Mastoids are clear. Orbital contents: Globes are intact. IMPRESSION: No acute intracranial hemorrhage or CT evidence of territorial infarct. If there is persistent clinical concern for intracranial pathology, MR examination is recommended for further characterization. Signed: Tom Washington Verified Date/Time: 07/29/2021 15:57:58 OXYGEN SATURATION, [id number] 14:50:53 Test Item Value Reference Range Interpretation Comments O2 SATURATION (MEASURED) 63.0 % Fro m picc line for (BEAKER) (test code = compar fam with svo2 1455) from [facility] OXYGEN SATURATION, [id number] 11:36:00 Test Item Value Reference Range Interpretation Comments O2 SATURATION (MEASURED) (BEAKER) 75.0 % (test code = 1455) [id number] 09:20:26 Test Item Value Reference Range Interpretation Comments MAGNESIUM (BEAKER) (test code = 2.3 mg/dL 1.6-2.6 627) Stitcher Hand JESSICA Sal WAN LHEPATIC FUNCTION [id number] 09:20:26 Test Item Value Reference Range Interpretation Comments TOTAL PROTEIN (BEAKER) (test code = 7.8 gm/dL 6.0-8.3 770) ALBUMIN (BEAKER) (test code = 1145) 4.3 g/dL 3.5-5.0 BILIRUBIN TOTAL (BEAKER) (test code 1.4 mg/dL 0.2-1.2 H = 377) BILIRUBIN DIRECT (BEAKER) (test 0.8 mg/dL 0.1-0.5 H code = 706) ALKALINE PHOSPHATASE (BEAKER) (test 177 U/L 40-150 H code = 346) AST (SGOT) (BEAKER) (test code = 38 U/L 5-34 H 353) ALT (SGPT) (BEAKER) (test code = 52 U/L 6-55 347) Stitcher Hand JESSICA - SOCO LBASIC METABOLIC [id number] 09:20:25 Test Item Value Reference Range Interpretation Comments SODIUM (BEAKER) 129 meq/L 136-145 L (test code = 381) POTASSIUM (BEAKER) 3.1 meq/L 3.5-5.1 L (test code = 379) CHLORIDE (BEAKER) 88 meq/L 98-107 L (test code = 382) CO2 (BEAKER) (test 28 meq/L 22-29 code = 355) BLOOD UREA NITROGEN 10 mg/dL 7-21 (BEAKER) (test code = 354) CREATININE (BEAKER) 1.37 mg/dL 0.57-1.25 H (test code = 358) GLUCOSE RANDOM 131 mg/dL 70-105 H (BEAKER) (test code = 652) CALCIUM (BEAKER) 9.8 mg/dL 8.4-10.2 (test code = 697) EGFR (BEAKER) (test 55 mL/min/1.73 ESTIMA NEELA GFR IS code = 1092) sq m NOT ACCURATE CREATININE CLEARANCE IN PREDICTING GLOMERULAR FILTRATION RATE . ESTIMATED GFR I S NOT APPLICABLE FOR DIALYSIS PATIEN TS. Stitcher Hand ID - SOCO LLACTIC ACID, [id number] 06:07:38 Test Item Value Reference Range Interpretation Comments LACTATE BLOOD VENOUS (2) (BEAKER) 0.87 mmol/L 0.50-2.20 (test code = 2872) Stitcher Hand JESSICA RIZZO [facility] (HEMOGRAM ONLY)2021-07-29 06:00:54 Test Item Value Reference Range Interpretation Comments WHITE BLOOD CELL COUNT (BEAKER) 8.7 K/ L 3.5-10.5 (test code = 775) RED BLOOD CELL COUNT (BEAKER) 3.93 M/ L 4.63-6.08 L (test code = 761) HEMOGLOBIN (BEAKER) (test code = 12.0 GM/DL 13.7-17.5 L 410) HEMATOCRIT (BEAKER) (test code = 36.5 % 40.1-51.0 L 411) MEAN CORPUSCULAR VOLUME (BEAKER) 92.9 fL 79.0-92.2 H (test code = 753) MEAN CORPUSCULAR HEMOGLOBIN 30.5 pg 25.7-32.2 (BEAKER) (test code = 751) MEAN CORPUSCULAR HEMOGLOBIN CONC 32.9 GM/DL 32.3-36.5 (BEAKER) (test code = 752) RED CELL DISTRIBUTION WIDTH 20.4 % 11.6-14.4 H (BEAKER) (test code = 412) PLATELET COUNT (BEAKER) (test 284 K/CU MM 150-450 code = 756) MEAN PLATELET VOLUME (BEAKER) 9.1 fL 9.4-12.4 L (test code = 754) NUCLEATED RED BLOOD CELLS 0 /100 WBC 0-0 (BEAKER) (test code = 413) [id number] 00:08:33 Test Item Value Reference Range Interpretation Comments MAGNESIUM (BEAKER) 2.1 mg/dL 1.6-2.6 Specimen slightly (test code = 627) hemolyzed Stitcher Hand ID Sal WAN LBASIC METABOLIC [id number] 00:08:33 Test Item Value Reference Range Interpretation Comments SODIUM (BEAKER) 127 meq/L 136-145 L (test code = 381) POTASSIUM (BEAKER) 3.9 meq/L 3.5-5.1 Specimen slightly (test code = 379) hemolyzed CHLORIDE (BEAKER) 85 meq/L 98-107 L (test code = 382) CO2 (BEAKER) (test 29 meq/L 22-29 code = 355) BLOOD UREA NITROGEN 31 mg/dL 7-21 H (BEAKER) (test code = 354) CREATININE (BEAKER) 1.41 mg/dL 0.57-1.25 H Specimen slightly (test code = 358) hemolyzed GLUCOSE RANDOM 134 mg/dL 70-105 H (BEAKER) (test code = 652) CALCIUM (BEAKER) 9.8 mg/dL 8.4-10.2 (test code = 697) EGFR (BEAKER) (test 53 mL/min/1.73 ESTIMA NEELA GFR IS code = 1092) sq m NOT ACCURATE CREATININE CLEARANCE IN PREDICTING GLOMERULAR FILTRATION RATE . ESTIMATED GFR I S NOT APPLICABLE FOR DIALYSIS PATIEN TS. Stitcher Hand ID - PIAYA [id number] 20:42:55 Test Item Value Reference Range Interpretation Comments MAGNESIUM (BEAKER) 2.4 mg/dL 1.6-2.6 Specimen markedly (test code = 627) hemolyzed Stitcher Hand ID - DBBASIC METABOLIC [id number] 18:52:00 Test Item Value Reference Range Interpretation Comments SODIUM (BEAKER) 127 meq/L 136-145 L (test code = 381) POTASSIUM (BEAKER) 4.1 meq/L 3.5-5.1 Specimen markedly (test code = 379) hemolyzed CHLORIDE (BEAKER) 85 meq/L 98-107 L (test code = 382) CO2 (BEAKER) (test 29 meq/L 22-29 code = 355) BLOOD UREA NITROGEN 29 mg/dL 7-21 H (BEAKER) (test code = 354) CREATININE (BEAKER) 1.52 mg/dL 0.57-1.25 H Specimen markedly (test code = 358) hemolyzed GLUCOSE RANDOM 129 mg/dL 70-105 H (BEAKER) (test code = 652) CALCIUM (BEAKER) 9.8 mg/dL 8.4-10.2 (test code = 697) EGFR (BEAKER) (test 49 mL/min/1.73 ESTIMA NEELA GFR IS code = 1092) sq m NOT ACCURATE CREATININE CLEARANCE IN PREDICTING GLOMERULAR FILTRATION RATE . ESTIMATED GFR I S NOT APPLICABLE FOR DIALYSIS PATIEN TS. Stitcher Hand ID - DBPOCT-GLUCOSE [id number] 16:43:04 Test Item Value Reference Range Interpretation Comments POC-GLUCOSE METER 136 mg/dL 70-110 H : TESTED A T [facility] 6720 (BEAKER) (test code = [facility] [place] [facility], 1538) [id number]: Stitcher Hand/Techni ebenezer ID = [id number] for Cheri Byrne OXYGEN SATURATION, [id number] 14:35:54 Test Item Value Reference Range Interpretation Comments O2 SATURATION (MEASURED) (BEAKER) 59.8 % (test code = 1455) BASIC METABOLIC [id number] 12:17:19 Test Item Value Reference Range Interpretation Comments SODIUM (BEAKER) 128 meq/L 136-145 L (test code = 381) POTASSIUM (BEAKER) 4.2 meq/L 3.5-5.1 (test code = 379) CHLORIDE (BEAKER) 86 meq/L 98-107 L (test code = 382) CO2 (BEAKER) (test 29 meq/L 22-29 code = 355) BLOOD UREA NITROGEN 29 mg/dL 7-21 H (BEAKER) (test code = 354) CREATININE (BEAKER) 1.55 mg/dL 0.57-1.25 H (test code = 358) GLUCOSE RANDOM 167 mg/dL 70-105 H (BEAKER) (test code = 652) CALCIUM (BEAKER) 9.9 mg/dL 8.4-10.2 (test code = 697) EGFR (BEAKER) (test 48 mL/min/1.73 ESTIMA NEELA GFR IS code = 1092) sq m NOT ACCURATE CREATININE CLEARANCE IN PREDICTING GLOMERULAR FILTRATION RATE . ESTIMATED GFR I S NOT APPLICABLE FOR DIALYSIS PATIEN TS. Stitcher Hand ID - SOCO [id number] 12:17:19 Test Item Value Reference Range Interpretation Comments MAGNESIUM (BEAKER) (test code = 2.1 mg/dL 1.6-2.6 627) Stitcher Hand ID - SOCO LPOCT-GLUCOSE [id number] 11:08:19 Test Item Value Reference Range Interpretation Comments POC-GLUCOSE METER 155 mg/dL 70-110 H : TESTED A T [facility] 6720 (BEAKER) (test code = [facility] [place], 1538) [address]: Stitcher Hand/Techni ebenezer ID = [id number] for SABA CBARAL HEPATIC FUNCTION [id number] 10:21:32 Test Item Value Reference Range Interpretation Comments TOTAL PROTEIN (BEAKER) (test code = 8.0 gm/dL 6.0-8.3 770) ALBUMIN (BEAKER) (test code = 1145) 4.3 g/dL 3.5-5.0 BILIRUBIN TOTAL (BEAKER) (test code 1.3 mg/dL 0.2-1.2 H = 377) BILIRUBIN DIRECT (BEAKER) (test 0.8 mg/dL 0.1-0.5 H code = 706) ALKALINE PHOSPHATASE (BEAKER) (test 167 U/L 40-150 H code = 346) AST (SGOT) (BEAKER) (test code = 45 U/L 5-34 H 353) ALT (SGPT) (BEAKER) (test code = 58 U/L 6-55 H 347) Stitcher Hand ID - PIAYA LOperator ID - PIAYA LOperator ID - PIAYA LOperator ID - PIAYA LPOCT-GLUCOSE [id number] 07:23:42 Test Item Value Reference Range Interpretation Comments POC-GLUCOSE METER 120 mg/dL 70-110 H : TESTED A T [facility] 6720 (BEAKER) (test code = [place], 1538) [id number]: Stitcher Hand/Techni ebenezer ID = [id number] for Cheri Byrne [id number] 06:33:40 Test Item Value Reference Range Interpretation Comments MAGNESIUM (BEAKER) (test code = 2.3 mg/dL 1.6-2.6 627) Stitcher Hand ID - SOCO LBASIC METABOLIC [id number] 06:33:39 Test Item Value Reference Range Interpretation Comments SODIUM (BEAKER) 128 meq/L 136-145 L (test code = 381) POTASSIUM (BEAKER) 3.6 meq/L 3.5-5.1 (test code = 379) CHLORIDE (BEAKER) 84 meq/L 98-107 L (test code = 382) CO2 (BEAKER) (test 32 meq/L 22-29 H code = 355) BLOOD UREA NITROGEN 28 mg/dL 7-21 H (BEAKER) (test code = 354) CREATININE (BEAKER) 1.35 mg/dL 0.57-1.25 H (test code = 358) GLUCOSE RANDOM 122 mg/dL 70-105 H (BEAKER) (test code = 652) CALCIUM (BEAKER) 10.0 mg/dL 8.4-10.2 (test code = 697) EGFR (BEAKER) (test 56 mL/min/1.73 ESTIMA NEELA GFR IS code = 1092) sq m NOT ACCURATE CREATININE CLEARANCE IN PREDICTING GLOMERULAR FILTRATION RATE . ESTIMATED GFR I S NOT APPLICABLE FOR DIALYSIS PATIEN TS. Stitcher Hand ID - PIAYA LCBC (HEMOGRAM ONLY)2021-07-28 06:19:05 Test Item Value Reference Range Interpretation Comments WHITE BLOOD CELL COUNT (BEAKER) 9.8 K/ L 3.5-10.5 (test code = 775) RED BLOOD CELL COUNT (BEAKER) 4.09 M/ L 4.63-6.08 L (test code = 761) HEMOGLOBIN (BEAKER) (test code = 12.3 GM/DL 13.7-17.5 L 410) HEMATOCRIT (BEAKER) (test code = 39.3 % 40.1-51.0 L 411) MEAN CORPUSCULAR VOLUME (BEAKER) 96.1 fL 79.0-92.2 H (test code = 753) MEAN CORPUSCULAR HEMOGLOBIN 30.1 pg 25.7-32.2 (BEAKER) (test code = 751) MEAN CORPUSCULAR HEMOGLOBIN CONC 31.3 GM/DL 32.3-36.5 L (BEAKER) (test code = 752) RED CELL DISTRIBUTION WIDTH 20.5 % 11.6-14.4 H (BEAKER) (test code = 412) PLATELET COUNT (BEAKER) (test 327 K/CU MM 150-450 code = 756) MEAN PLATELET VOLUME (BEAKER) 9.4 fL 9.4-12.4 (test code = 754) NUCLEATED RED BLOOD CELLS 0 /100 WBC 0-0 (BEAKER) (test code = 413) LACTIC ACID, [id number] 06:07:09 Test Item Value Reference Range Interpretation Comments LACTATE BLOOD VENOUS 1.08 mmol/L 0.50-2.20 Specime n slightly (2) (BEAKER) (test hemolyzed code = 2872) Stitcher Hand ID - PIAYA LBASIC METABOLIC [id number] 01:56:32 Test Item Value Reference Range Interpretation Comments SODIUM (BEAKER) 128 meq/L 136-145 L (test code = 381) POTASSIUM (BEAKER) 3.5 meq/L 3.5-5.1 Specimen slightly (test code = 379) hemolyzed CHLORIDE (BEAKER) 84 meq/L 98-107 L (test code = 382) CO2 (BEAKER) (test 30 meq/L 22-29 H code = 355) BLOOD UREA NITROGEN 28 mg/dL 7-21 H (BEAKER) (test code = 354) CREATININE (BEAKER) 1.48 mg/dL 0.57-1.25 H Specimen slightly (test code = 358) hemolyzed GLUCOSE RANDOM 157 mg/dL 70-105 H (BEAKER) (test code = 652) CALCIUM (BEAKER) 10.1 mg/dL 8.4-10.2 (test code = 697) EGFR (BEAKER) (test 50 mL/min/1.73 ESTIMA NEELA GFR IS code = 1092) sq m NOT ACCURATE CREATININE CLEARANCE IN PREDICTING GLOMERULAR FILTRATION RATE . ESTIMATED GFR I S NOT APPLICABLE FOR DIALYSIS PATIEN TS. Stitcher Hand ID - SOCO [id number] 01:56:31 Test Item Value Reference Range Interpretation Comments MAGNESIUM (BEAKER) 2.1 mg/dL 1.6-2.6 Specimen slightly (test code = 627) hemolyzed Stitcher Hand ID - SOCO LPOCT-GLUCOSE [id number] 00:24:28 Test Item Value Reference Range Interpretation Comments POC-GLUCOSE METER 147 mg/dL 70-110 H : [facility] ([facility] (test code = MEL[place] SANTO [place], 1538) 13877: Stitcher Hand/Techni ebenezer ID = [id number] for ANDREW MONTILLA BASIC METABOLIC [id number] 19:11:28 Test Item Value Reference Range Interpretation Comments SODIUM (BEAKER) 130 meq/L 136-145 L (test code = 381) POTASSIUM (BEAKER) 3.7 meq/L 3.5-5.1 Specimen slightly (test code = 379) hemolyzed CHLORIDE (BEAKER) 85 meq/L 98-107 L (test code = 382) CO2 (BEAKER) (test 32 meq/L 22-29 H code = 355) BLOOD UREA NITROGEN 32 mg/dL 7-21 H (BEAKER) (test code = 354) CREATININE (BEAKER) 1.44 mg/dL 0.57-1.25 H Specimen slightly (test code = 358) hemolyzed GLUCOSE RANDOM 163 mg/dL 70-105 H (BEAKER) (test code = 652) CALCIUM (BEAKER) 10.3 mg/dL 8.4-10.2 H (test code = 697) EGFR (BEAKER) (test 52 mL/min/1.73 ESTIMA NEELA GFR IS code = 1092) sq m NOT ACCURATE CREATININE CLEARANCE IN PREDICTING GLOMERULAR FILTRATION RATE . ESTIMATED GFR I S NOT APPLICABLE FOR DIALYSIS PATIEN TS. Stitcher Hand ID - AUNDREANISHANT [id number] 19:11:27 Test Item Value Reference Range Interpretation Comments MAGNESIUM (BEAKER) 2.2 mg/dL 1.6-2.6 Specimen slightly (test code = 627) hemolyzed Stitcher Hand ID - AUNDREANISHANT LSODIUM, RANDOM [id number] 17:38:39 Test Item Value Reference Range Interpretation Comments SODIUM URINE (BEAKER) (test code = 33 meq/L 243) Reference Range: No NormalsOperator ID - DBCHLORIDE, RANDOM [id number] 17:38:38 Test Item Value Reference Range Interpretation Comments CHLORIDE URINE (BEAKER) (test code = 77 meq/L 682) Reference Range: No NormalsOperator ID - DBPOCT-GLUCOSE [id number] 16:20:35 Test Item Value Reference Range Interpretation Comments POC-GLUCOSE METER 126 mg/dL 70-110 H : TESTED A T [facility] 6720 (BEAKER) (test code = [place], 1538) [id number]: Stitcher Hand/Techni ebenezer ID = [id number] for SABA CABRAL LACTIC ACID, [id number] 13:28:34 Test Item Value Reference Range Interpretation Comments LACTATE BLOOD VENOUS (2) (BEAKER) 2.28 mmol/L 0.50-2.20 H (test code = 2872) Stitcher Hand ID - [id number] 12:57:52 Test Item Value Reference Range Interpretation Comments MAGNESIUM (BEAKER) (test code = 2.2 mg/dL 1.6-2.6 627) Stitcher Hand ID - EMERSONBASIC METABOLIC [id number] 12:57:51 Test Item Value Reference Range Interpretation Comments SODIUM (BEAKER) 126 meq/L 136-145 L (test code = 381) POTASSIUM (BEAKER) 3.4 meq/L 3.5-5.1 L (test code = 379) CHLORIDE (BEAKER) 84 meq/L 98-107 L (test code = 382) CO2 (BEAKER) (test 31 meq/L 22-29 H code = 355) BLOOD UREA NITROGEN 28 mg/dL 7-21 H (BEAKER) (test code = 354) CREATININE (BEAKER) 1.47 mg/dL 0.57-1.25 H (test code = 358) GLUCOSE RANDOM 143 mg/dL 70-105 H (BEAKER) (test code = 652) CALCIUM (BEAKER) 9.8 mg/dL 8.4-10.2 (test code = 697) EGFR (BEAKER) (test 51 mL/min/1.73 ESTIMA NEELA GFR IS code = 1092) sq m NOT ACCURATE CREATININE CLEARANCE IN PREDICTING GLOMERULAR FILTRATION RATE . ESTIMATED GFR I S NOT APPLICABLE FOR DIALYSIS PATIEN TS. Stitcher Hand ID - GABRIELEOXYGEN SATURATION, [id number] 12:46:31 Test Item Value Reference Range Interpretation Comments O2 SATURATION (MEASURED) (BEAKER) 62.7 % (test code = 1455) POCT-GLUCOSE [id number] 11:02:30 Test Item Value Reference Range Interpretation Comments POC-GLUCOSE METER 98 mg/dL 70-110 : [facility] (BE[facility]ER[facility] (test code = [place], 1538) [id number]: Stitcher Hand/Techni ebenezer ID = [id number] for JERO GRACE HEPATIC FUNCTION [id number] 09:54:04 Test Item Value Reference Range Interpretation Comments TOTAL PROTEIN (BEAKER) (test code = 8.1 gm/dL 6.0-8.3 770) ALBUMIN (BEAKER) (test code = 1145) 4.3 g/dL 3.5-5.0 BILIRUBIN TOTAL (BEAKER) (test code 1.4 mg/dL 0.2-1.2 H = 377) BILIRUBIN DIRECT (BEAKER) (test 0.8 mg/dL 0.1-0.5 H code = 706) ALKALINE PHOSPHATASE (BEAKER) (test 169 U/L 40-150 H code = 346) AST (SGOT) (BEAKER) (test code = 47 U/L 5-34 H 353) ALT (SGPT) (BEAKER) (test code = 57 U/L 6-55 H 347) Stitcher Hand JESSICA Huang SOCO EPATIC FUNCTION [id number] 09:11:54 Test Item Value Reference Range Interpretation Comments TOTAL PROTEIN (BEAKER) (test code = 7.9 gm/dL 6.0-8.3 770) ALBUMIN (BEAKER) (test code = 1145) 4.2 g/dL 3.5-5.0 BILIRUBIN TOTAL (BEAKER) (test code 1.4 mg/dL 0.2-1.2 H = 377) BILIRUBIN DIRECT (BEAKER) (test 0.8 mg/dL 0.1-0.5 H code = 706) ALKALINE PHOSPHATASE (BEAKER) (test 164 U/L 40-150 H code = 346) AST (SGOT) (BEAKER) (test code = 43 U/L 5-34 H 353) ALT (SGPT) (BEAKER) (test code = 56 U/L 6-55 H 347) Stitcher Hand JESSICA GUILLAUMENISHANT Nimesh GUILLAUMENISHANT LPOCT-GLUCOSE [id number] 08:56:04 Test Item Value Reference Range Interpretation Comments POC-GLUCOSE METER 107 mg/dL 70-110 : TESTED A T [facility] 67[address] (BEAKER) (test code = [place], 1538) [id number]: Stitcher Hand/Techni ebenezer ID = [id number] for JERO CRUZ OXYGEN SATURATION, [id number] 08:22:47 Test Item Value Reference Range Interpretation Comments O2 SATURATION (MEASURED) (BEAKER) 52.6 % (test code = 1455) HEPATIC FUNCTION [id number] 07:41:03 Test Item Value Reference Range Interpretation Comments TOTAL PROTEIN (BEAKER) (test code = 8.1 gm/dL 6.0-8.3 770) ALBUMIN (BEAKER) (test code = 1145) 4.4 g/dL 3.5-5.0 BILIRUBIN TOTAL (BEAKER) (test code 1.3 mg/dL 0.2-1.2 H = 377) BILIRUBIN DIRECT (BEAKER) (test 0.8 mg/dL 0.1-0.5 H code = 706) ALKALINE PHOSPHATASE (BEAKER) (test 172 U/L 40-150 H code = 346) AST (SGOT) (BEAKER) (test code = 36 U/L 5-34 H 353) ALT (SGPT) (BEAKER) (test code = 50 U/L 6-55 347) Stitcher Hand ID - SOCO LOperator JESSICA - SOCO [id number] 05:10:53 Test Item Value Reference Range Interpretation Comments MAGNESIUM (BEAKER) (test code = 2.2 mg/dL 1.6-2.6 627) Stitcher Hand ID - SOCO LBASIC METABOLIC [id number] 05:10:52 Test Item Value Reference Range Interpretation Comments SODIUM (BEAKER) 128 meq/L 136-145 L (test code = 381) POTASSIUM (BEAKER) 3.6 meq/L 3.5-5.1 (test code = 379) CHLORIDE (BEAKER) 84 meq/L 98-107 L (test code = 382) CO2 (BEAKER) (test 32 meq/L 22-29 H code = 355) BLOOD UREA NITROGEN 28 mg/dL 7-21 H (BEAKER) (test code = 354) CREATININE (BEAKER) 1.53 mg/dL 0.57-1.25 H (test code = 358) GLUCOSE RANDOM 119 mg/dL 70-105 H (BEAKER) (test code = 652) CALCIUM (BEAKER) 10.1 mg/dL 8.4-10.2 (test code = 697) EGFR (BEAKER) (test 48 mL/min/1.73 ESTIMA NEELA GFR IS code = 1092) sq m NOT ACCURATE CREATININE CLEARANCE IN PREDICTING GLOMERULAR FILTRATION RATE . ESTIMATED GFR I S NOT APPLICABLE FOR DIALYSIS PATIEN TS. Stitcher Hand ID - SOCO LLACTIC ACID, [id number] 04:52:00 Test Item Value Reference Range Interpretation Comments LACTATE BLOOD VENOUS 2.58 mmol/L 0.50-2.20 H Specime n slightly (2) (BEAKER) (test hemolyzed code = 7606) Stitcher Hand ID Sal WAN LCBC (HEMOGRAM ONLY)2021-07-27 04:43:27 Test Item Value Reference Range Interpretation Comments WHITE BLOOD CELL COUNT (BEAKER) 8.6 K/ L 3.5-10.5 (test code = 775) RED BLOOD CELL COUNT (BEAKER) 4.06 M/ L 4.63-6.08 L (test code = 761) HEMOGLOBIN (BEAKER) (test code = 12.3 GM/DL 13.7-17.5 L 410) HEMATOCRIT (BEAKER) (test code = 38.5 % 40.1-51.0 L 411) MEAN CORPUSCULAR VOLUME (BEAKER) 94.8 fL 79.0-92.2 H (test code = 753) MEAN CORPUSCULAR HEMOGLOBIN 30.3 pg 25.7-32.2 (BEAKER) (test code = 751) MEAN CORPUSCULAR HEMOGLOBIN CONC 31.9 GM/DL 32.3-36.5 L (BEAKER) (test code = 752) RED CELL DISTRIBUTION WIDTH 20.6 % 11.6-14.4 H (BEAKER) (test code = 412) PLATELET COUNT (BEAKER) (test 280 K/CU MM 150-450 code = 756) MEAN PLATELET VOLUME (BEAKER) 9.0 fL 9.4-12.4 L (test code = 754) NUCLEATED RED BLOOD CELLS 0 /100 WBC 0-0 (BEAKER) (test code = 413) BASIC METABOLIC [id number] 01:03:15 Test Item Value Reference Range Interpretation Comments SODIUM (BEAKER) 129 meq/L 136-145 L (test code = 381) POTASSIUM (BEAKER) 3.3 meq/L 3.5-5.1 L (test code = 379) CHLORIDE (BEAKER) 83 meq/L 98-107 L (test code = 382) CO2 (BEAKER) (test 33 meq/L 22-29 H code = 355) BLOOD UREA NITROGEN 29 mg/dL 7-21 H (BEAKER) (test code = 354) CREATININE (BEAKER) 1.51 mg/dL 0.57-1.25 H (test code = 358) GLUCOSE RANDOM 117 mg/dL 70-105 H (BEAKER) (test code = 652) CALCIUM (BEAKER) 10.0 mg/dL 8.4-10.2 (test code = 697) EGFR (BEAKER) (test 49 mL/min/1.73 ESTIMA NEELA GFR IS code = 1092) sq m NOT ACCURATE CREATININE CLEARANCE IN PREDICTING GLOMERULAR FILTRATION RATE . ESTIMATED GFR I S NOT APPLICABLE FOR DIALYSIS PATIEN TS. Stitcher Hand ID Sal WAN [id number] 19:38:59 Test Item Value Reference Range Interpretation Comments MAGNESIUM (BEAKER) (test code = 2.4 mg/dL 1.6-2.6 627) Stitcher Hand ID Sal RIZZO MBASIC METABOLIC [id number] 19:38:58 Test Item Value Reference Range Interpretation Comments SODIUM (BEAKER) 132 meq/L 136-145 L (test code = 381) POTASSIUM (BEAKER) 3.5 meq/L 3.5-5.1 (test code = 379) CHLORIDE (BEAKER) 87 meq/L 98-107 L (test code = 382) CO2 (BEAKER) (test 33 meq/L 22-29 H code = 355) BLOOD UREA NITROGEN 30 mg/dL 7-21 H (BEAKER) (test code = 354) CREATININE (BEAKER) 1.54 mg/dL 0.57-1.25 H (test code = 358) GLUCOSE RANDOM 116 mg/dL 70-105 H (BEAKER) (test code = 652) CALCIUM (BEAKER) 10.1 mg/dL 8.4-10.2 (test code = 697) EGFR (BEAKER) (test 48 mL/min/1.73 ESTIMA NEELA GFR IS code = 1092) sq m NOT ACCURATE CREATININE CLEARANCE IN PREDICTING GLOMERULAR FILTRATION RATE . ESTIMATED GFR I S NOT APPLICABLE FOR DIALYSIS PATIEN TS. Stitcher Hand ID Sal RIZZO MLACTIC ACID, [id number] 19:33:34 Test Item Value Reference Range Interpretation Comments LACTATE BLOOD VENOUS (2) (BEAKER) 1.17 mmol/L 0.50-2.20 (test code = 2872) Stitcher Hand ID - SO [id number] 14:19:06 Test Item Value Reference Range Interpretation Comments MAGNESIUM (BEAKER) 2.1 mg/dL 1.6-2.6 Specimen slightly (test code = 627) hemolyzed Stitcher Hand ID - SO MBASIC METABOLIC [id number] 13:59:02 Test Item Value Reference Range Interpretation Comments SODIUM (BEAKER) 131 meq/L 136-145 L (test code = 381) POTASSIUM (BEAKER) 3.4 meq/L 3.5-5.1 L (test code = 379) CHLORIDE (BEAKER) 89 meq/L 98-107 L (test code = 382) CO2 (BEAKER) (test 31 meq/L 22-29 H code = 355) BLOOD UREA NITROGEN 30 mg/dL 7-21 H (BEAKER) (test code = 354) CREATININE (BEAKER) 1.65 mg/dL 0.57-1.25 H (test code = 358) GLUCOSE RANDOM 160 mg/dL 70-105 H (BEAKER) (test code = 652) CALCIUM (BEAKER) 9.7 mg/dL 8.4-10.2 (test code = 697) EGFR (BEAKER) (test 44 mL/min/1.73 ESTIMA NEELA GFR IS code = 1092) sq m NOT ACCURATE CREATININE CLEARANCE IN PREDICTING GLOMERULAR FILTRATION RATE . ESTIMATED GFR I S NOT APPLICABLE FOR DIALYSIS PATIEN TS. Stitcher Hand ID - SO MOXYGEN SATURATION, [id number] 08:53:33 Test Item Value Reference Range Interpretation Comments O2 SATURATION (MEASURED) (BEAKER) 63.3 % (test code = 1455) HEPATIC FUNCTION [id number] 05:40:03 Test Item Value Reference Range Interpretation Comments TOTAL PROTEIN (BEAKER) (test code = 7.9 gm/dL 6.0-8.3 770) ALBUMIN (BEAKER) (test code = 1145) 4.1 g/dL 3.5-5.0 BILIRUBIN TOTAL (BEAKER) (test code 1.6 mg/dL 0.2-1.2 H = 377) BILIRUBIN DIRECT (BEAKER) (test 0.8 mg/dL 0.1-0.5 H code = 706) ALKALINE PHOSPHATASE (BEAKER) (test 175 U/L 40-150 H code = 346) AST (SGOT) (BEAKER) (test code = 36 U/L 5-34 H 353) ALT (SGPT) (BEAKER) (test code = 50 U/L 6-55 347) Stitcher Hand ID - SO MOperator ID - SO [id number] 05:14:50 Test Item Value Reference Range Interpretation Comments MAGNESIUM (BEAKER) (test code = 2.2 mg/dL 1.6-2.6 627) Stitcher Hand ID - SO MBASIC METABOLIC [id number] 05:14:49 Test Item Value Reference Range Interpretation Comments SODIUM (BEAKER) 136 meq/L 136-145 (test code = 381) POTASSIUM (BEAKER) 3.8 meq/L 3.5-5.1 (test code = 379) CHLORIDE (BEAKER) 91 meq/L 98-107 L (test code = 382) CO2 (BEAKER) (test 33 meq/L 22-29 H code = 355) BLOOD UREA NITROGEN 29 mg/dL 7-21 H (BEAKER) (test code = 354) CREATININE (BEAKER) 1.48 mg/dL 0.57-1.25 H (test code = 358) GLUCOSE RANDOM 118 mg/dL 70-105 H (BEAKER) (test code = 652) CALCIUM (BEAKER) 10.4 mg/dL 8.4-10.2 H (test code = 697) EGFR (BEAKER) (test 50 mL/min/1.73 ESTIMA NEELA GFR IS code = 1092) sq m NOT ACCURATE CREATININE CLEARANCE IN PREDICTING GLOMERULAR FILTRATION RATE . ESTIMATED GFR I S NOT APPLICABLE FOR DIALYSIS PATIEN TS. Stitcher Hand ID - SO MLACTIC ACID, [id number] 04:59:34 Test Item Value Reference Range Interpretation Comments LACTATE BLOOD VENOUS (2) (BEAKER) 0.88 mmol/L 0.50-2.20 (test code = 2872) Stitcher Hand ID - SO MCBC (HEMOGRAM ONLY)2021-07-26 04:55:57 Test Item Value Reference Range Interpretation Comments WHITE BLOOD CELL COUNT (BEAKER) 8.2 K/ L 3.5-10.5 (test code = 775) RED BLOOD CELL COUNT (BEAKER) 4.04 M/ L 4.63-6.08 L (test code = 761) HEMOGLOBIN (BEAKER) (test code = 12.1 GM/DL 13.7-17.5 L 410) HEMATOCRIT (BEAKER) (test code = 39.4 % 40.1-51.0 L 411) MEAN CORPUSCULAR VOLUME (BEAKER) 97.5 fL 79.0-92.2 H (test code = 753) MEAN CORPUSCULAR HEMOGLOBIN 30.0 pg 25.7-32.2 (BEAKER) (test code = 751) MEAN CORPUSCULAR HEMOGLOBIN CONC 30.7 GM/DL 32.3-36.5 L (BEAKER) (test code = 752) RED CELL DISTRIBUTION WIDTH 20.9 % 11.6-14.4 H (BEAKER) (test code = 412) PLATELET COUNT (BEAKER) (test 275 K/CU MM 150-450 code = 756) MEAN PLATELET VOLUME (BEAKER) 9.0 fL 9.4-12.4 L (test code = 754) NUCLEATED RED BLOOD CELLS 0 /100 WBC 0-0 (BEAKER) (test code = 413) BASIC METABOLIC [id number] 00:48:26 Test Item Value Reference Range Interpretation Comments SODIUM (BEAKER) 133 meq/L 136-145 L (test code = 381) POTASSIUM (BEAKER) 3.9 meq/L 3.5-5.1 Specimen slightly (test code = 379) hemolyzed CHLORIDE (BEAKER) 90 meq/L 98-107 L (test code = 382) CO2 (BEAKER) (test 32 meq/L 22-29 H code = 355) BLOOD UREA NITROGEN 28 mg/dL 7-21 H (BEAKER) (test code = 354) CREATININE (BEAKER) 1.50 mg/dL 0.57-1.25 H Specimen slightly (test code = 358) hemolyzed GLUCOSE RANDOM 126 mg/dL 70-105 H (BEAKER) (test code = 652) CALCIUM (BEAKER) 10.2 mg/dL 8.4-10.2 (test code = 697) EGFR (BEAKER) (test 50 mL/min/1.73 ESTIMA NEELA GFR IS code = 1092) sq m NOT ACCURATE CREATININE CLEARANCE IN PREDICTING GLOMERULAR FILTRATION RATE . ESTIMATED GFR I S NOT APPLICABLE FOR DIALYSIS PATIEN TS. Stitcher Hand ID - [id number] 18:16:03 Test Item Value Reference Range Interpretation Comments MAGNESIUM (BEAKER) 2.1 mg/dL 1.6-2.6 Specimen slightly (test code = 627) hemolyzed Stitcher Hand ID - BSBASIC METABOLIC [id number] 18:16:03 Test Item Value Reference Range Interpretation Comments SODIUM (BEAKER) 134 meq/L 136-145 L (test code = 381) POTASSIUM (BEAKER) 3.9 meq/L 3.5-5.1 Specimen slightly (test code = 379) hemolyzed CHLORIDE (BEAKER) 89 meq/L 98-107 L (test code = 382) CO2 (BEAKER) (test 33 meq/L 22-29 H code = 355) BLOOD UREA NITROGEN 26 mg/dL 7-21 H (BEAKER) (test code = 354) CREATININE (BEAKER) 1.47 mg/dL 0.57-1.25 H Specimen slightly (test code = 358) hemolyzed GLUCOSE RANDOM 127 mg/dL 70-105 H (BEAKER) (test code = 652) CALCIUM (BEAKER) 10.3 mg/dL 8.4-10.2 H (test code = 697) EGFR (BEAKER) (test 51 mL/min/1.73 ESTIMA NEELA GFR IS code = 1092) sq m NOT ACCURATE CREATININE CLEARANCE IN PREDICTING GLOMERULAR FILTRATION RATE . ESTIMATED GFR I S NOT APPLICABLE FOR DIALYSIS PATIEN TS. Stitcher Hand ID - BSBASIC METABOLIC [id number] 14:38:59 Test Item Value Reference Range Interpretation Comments SODIUM (BEAKER) 134 meq/L 136-145 L (test code = 381) POTASSIUM (BEAKER) 3.5 meq/L 3.5-5.1 (test code = 379) CHLORIDE (BEAKER) 89 meq/L 98-107 L (test code = 382) CO2 (BEAKER) (test 33 meq/L 22-29 H code = 355) BLOOD UREA NITROGEN 27 mg/dL 7-21 H (BEAKER) (test code = 354) CREATININE (BEAKER) 1.47 mg/dL 0.57-1.25 H (test code = 358) GLUCOSE RANDOM 132 mg/dL 70-105 H (BEAKER) (test code = 652) CALCIUM (BEAKER) 10.0 mg/dL 8.4-10.2 (test code = 697) EGFR (BEAKER) (test 51 mL/min/1.73 ESTIMA NEELA GFR IS code = 1092) sq m NOT ACCURATE CREATININE CLEARANCE IN PREDICTING GLOMERULAR FILTRATION RATE . ESTIMATED GFR I S NOT APPLICABLE FOR DIALYSIS PATIEN TS. Stitcher Hand ID - [id number] 14:38:59 Test Item Value Reference Range Interpretation Comments MAGNESIUM (BEAKER) (test code = 2.2 mg/dL 1.6-2.6 627) Stitcher Hand ID - EMERSONOXYGEN SATURATION, [id number] 14:05:12 Test Item Value Reference Range Interpretation Comments O2 SATURATION (MEASURED) (BEAKER) 55.8 % (test code = 1455) [id number] 05:23:23 Test Item Value Reference Range Interpretation Comments MAGNESIUM (BEAKER) (test code = 2.1 mg/dL 1.6-2.6 627) Stitcher Hand ID - PIAYA LHEPATIC FUNCTION [id number] 05:23:23 Test Item Value Reference Range Interpretation Comments TOTAL PROTEIN (BEAKER) (test code = 8.2 gm/dL 6.0-8.3 770) ALBUMIN (BEAKER) (test code = 1145) 4.3 g/dL 3.5-5.0 BILIRUBIN TOTAL (BEAKER) (test code 1.5 mg/dL 0.2-1.2 H = 377) BILIRUBIN DIRECT (BEAKER) (test 0.9 mg/dL 0.1-0.5 H code = 706) ALKALINE PHOSPHATASE (BEAKER) (test 180 U/L 40-150 H code = 346) AST (SGOT) (BEAKER) (test code = 27 U/L 5-34 353) ALT (SGPT) (BEAKER) (test code = 41 U/L 6-55 347) Stitcher Hand ID - PIAYA LBASIC METABOLIC [id number] 05:23:22 Test Item Value Reference Range Interpretation Comments SODIUM (BEAKER) 135 meq/L 136-145 L (test code = 381) POTASSIUM (BEAKER) 3.5 meq/L 3.5-5.1 (test code = 379) CHLORIDE (BEAKER) 88 meq/L 98-107 L (test code = 382) CO2 (BEAKER) (test 34 meq/L 22-29 H code = 355) BLOOD UREA NITROGEN 25 mg/dL 7-21 H (BEAKER) (test code = 354) CREATININE (BEAKER) 1.51 mg/dL 0.57-1.25 H (test code = 358) GLUCOSE RANDOM 131 mg/dL 70-105 H (BEAKER) (test code = 652) CALCIUM (BEAKER) 10.4 mg/dL 8.4-10.2 H (test code = 697) EGFR (BEAKER) (test 49 mL/min/1.73 ESTIMA NEELA GFR IS code = 1092) sq m NOT ACCURATE CREATININE CLEARANCE IN PREDICTING GLOMERULAR FILTRATION RATE . ESTIMATED GFR I S NOT APPLICABLE FOR DIALYSIS PATIEN TS. Stitcher Hand ID - PIAYA LLACTIC ACID, [id number] 05:10:50 Test Item Value Reference Range Interpretation Comments LACTATE BLOOD VENOUS (2) (BEAKER) 1.65 mmol/L 0.50-2.20 (test code = 2872) Stitcher Hand JESSICA WAN LCBC (HEMOGRAM ONLY)2021-07-25 05:09:15 Test Item Value Reference Range Interpretation Comments WHITE BLOOD CELL COUNT (BEAKER) 7.8 K/ L 3.5-10.5 (test code = 775) RED BLOOD CELL COUNT (BEAKER) 4.21 M/ L 4.63-6.08 L (test code = 761) HEMOGLOBIN (BEAKER) (test code = 12.5 GM/DL 13.7-17.5 L 410) HEMATOCRIT (BEAKER) (test code = 39.7 % 40.1-51.0 L 411) MEAN CORPUSCULAR VOLUME (BEAKER) 94.3 fL 79.0-92.2 H (test code = 753) MEAN CORPUSCULAR HEMOGLOBIN 29.7 pg 25.7-32.2 (BEAKER) (test code = 751) MEAN CORPUSCULAR HEMOGLOBIN CONC 31.5 GM/DL 32.3-36.5 L (BEAKER) (test code = 752) RED CELL DISTRIBUTION WIDTH 20.7 % 11.6-14.4 H (BEAKER) (test code = 412) PLATELET COUNT (BEAKER) (test 260 K/CU MM 150-450 code = 756) MEAN PLATELET VOLUME (BEAKER) 9.3 fL 9.4-12.4 L (test code = 754) NUCLEATED RED BLOOD CELLS 0 /100 WBC 0-0 (BEAKER) (test code = 413) OXYGEN SATURATION, [id number] 05:08:08 Test Item Value Reference Range Interpretation Comments O2 SATURATION (MEASURED) (BEAKER) 71.3 % (test code = 1455) BASIC METABOLIC [id number] 00:32:44 Test Item Value Reference Range Interpretation Comments SODIUM (BEAKER) 134 meq/L 136-145 L (test code = 381) POTASSIUM (BEAKER) 3.3 meq/L 3.5-5.1 L (test code = 379) CHLORIDE (BEAKER) 87 meq/L 98-107 L (test code = 382) CO2 (BEAKER) (test 33 meq/L 22-29 H code = 355) BLOOD UREA NITROGEN 25 mg/dL 7-21 H (BEAKER) (test code = 354) CREATININE (BEAKER) 1.48 mg/dL 0.57-1.25 H (test code = 358) GLUCOSE RANDOM 132 mg/dL 70-105 H (BEAKER) (test code = 652) CALCIUM (BEAKER) 10.4 mg/dL 8.4-10.2 H (test code = 697) EGFR (BEAKER) (test 50 mL/min/1.73 ESTIMA NEELA GFR IS code = 1092) sq m NOT ACCURATE CREATININE CLEARANCE IN PREDICTING GLOMERULAR FILTRATION RATE . ESTIMATED GFR I S NOT APPLICABLE FOR DIALYSIS PATIEN TS. Stitcher Hand ID - PIAYA LBASIC METABOLIC [id number] 19:35:52 Test Item Value Reference Range Interpretation Comments SODIUM (BEAKER) 131 meq/L 136-145 L (test code = 381) POTASSIUM (BEAKER) 4.9 meq/L 3.5-5.1 Specimen slightly (test code = 379) hemolyzed CHLORIDE (BEAKER) 86 meq/L 98-107 L (test code = 382) CO2 (BEAKER) (test 33 meq/L 22-29 H code = 355) BLOOD UREA NITROGEN 24 mg/dL 7-21 H (BEAKER) (test code = 354) CREATININE (BEAKER) 1.51 mg/dL 0.57-1.25 H Specimen slightly (test code = 358) hemolyzed GLUCOSE RANDOM 115 mg/dL 70-105 H (BEAKER) (test code = 652) CALCIUM (BEAKER) 10.4 mg/dL 8.4-10.2 H (test code = 697) EGFR (BEAKER) (test 49 mL/min/1.73 ESTIMA NEELA GFR IS code = 1092) sq m NOT ACCURATE CREATININE CLEARANCE IN PREDICTING GLOMERULAR FILTRATION RATE . ESTIMATED GFR I S NOT APPLICABLE FOR DIALYSIS PATIEN TS. Stitcher Hand ID - [id number] 19:35:51 Test Item Value Reference Range Interpretation Comments MAGNESIUM (BEAKER) 2.2 mg/dL 1.6-2.6 Specimen slightly (test code = 627) hemolyzed Stitcher Hand ID - BSBASIC METABOLIC [id number] 16:14:02 Test Item Value Reference Range Interpretation Comments SODIUM (BEAKER) 132 meq/L 136-145 L (test code = 381) POTASSIUM (BEAKER) 2.6 meq/L 3.5-5.1 LL Specimen slightly (test code = 379) hemolyzed CHLORIDE (BEAKER) 86 meq/L 98-107 L (test code = 382) CO2 (BEAKER) (test 33 meq/L 22-29 H code = 355) BLOOD UREA NITROGEN 21 mg/dL 7-21 (BEAKER) (test code = 354) CREATININE (BEAKER) 1.20 mg/dL 0.57-1.25 Specimen slightly (test code = 358) hemolyzed GLUCOSE RANDOM 141 mg/dL 70-105 H (BEAKER) (test code = 652) CALCIUM (BEAKER) 10.0 mg/dL 8.4-10.2 (test code = 697) EGFR (BEAKER) (test 64 mL/min/1.73 ESTIMA NEELA GFR IS code = 1092) sq m NOT ACCURATE CREATININE CLEARANCE IN PREDICTING GLOMERULAR FILTRATION RATE . ESTIMATED GFR I S NOT APPLICABLE FOR DIALYSIS PATIEN TS. Stitcher Hand ID - [id number] 16:10:58 Test Item Value Reference Range Interpretation Comments MAGNESIUM (BEAKER) 2.0 mg/dL 1.6-2.6 Specimen slightly (test code = 627) hemolyzed Stitcher Hand ID - BSOXYGEN SATURATION, [id number] 16:02:55 Test Item Value Reference Range Interpretation Comments O2 SATURATION (MEASURED) (BEAKER) 69.4 % (test code = 1455) POCT-GLUCOSE [id number] 07:21:37 Test Item Value Reference Range Interpretation Comments POC-GLUCOSE METER 121 mg/dL 70-110 H : TESTED A T [facility] 6720 (BEAKER) (test code = [place], 1538) [address]: Stitcher Hand/Techni ebenezer ID = [id number] for AG [place]TE [place] HEPATIC FUNCTION [id number] 04:06:54 Test Item Value Reference Range Interpretation Comments TOTAL PROTEIN (BEAKER) (test code = 8.1 gm/dL 6.0-8.3 770) ALBUMIN (BEAKER) (test code = 1145) 4.3 g/dL 3.5-5.0 BILIRUBIN TOTAL (BEAKER) (test code 1.6 mg/dL 0.2-1.2 H = 377) BILIRUBIN DIRECT (BEAKER) (test 0.9 mg/dL 0.1-0.5 H code = 706) ALKALINE PHOSPHATASE (BEAKER) (test 169 U/L 40-150 H code = 346) AST (SGOT) (BEAKER) (test code = 23 U/L 5-34 353) ALT (SGPT) (BEAKER) (test code = 42 U/L 6-55 347) Stitcher Hand ID - SO MBASIC METABOLIC [id number] 04:06:53 Test Item Value Reference Range Interpretation Comments SODIUM (BEAKER) 131 meq/L 136-145 L (test code = 381) POTASSIUM (BEAKER) 3.3 meq/L 3.5-5.1 L (test code = 379) CHLORIDE (BEAKER) 87 meq/L 98-107 L (test code = 382) CO2 (BEAKER) (test 33 meq/L 22-29 H code = 355) BLOOD UREA NITROGEN 24 mg/dL 7-21 H (BEAKER) (test code = 354) CREATININE (BEAKER) 1.25 mg/dL 0.57-1.25 (test code = 358) GLUCOSE RANDOM 140 mg/dL 70-105 H (BEAKER) (test code = 652) CALCIUM (BEAKER) 10.3 mg/dL 8.4-10.2 H (test code = 697) EGFR (BEAKER) (test 61 mL/min/1.73 ESTIMA NEELA GFR IS code = 1092) sq m NOT ACCURATE CREATININE CLEARANCE IN PREDICTING GLOMERULAR FILTRATION RATE . ESTIMATED GFR I S NOT APPLICABLE FOR DIALYSIS PATIEN TS. Stitcher Hand ID - SO [id number] 04:06:53 Test Item Value Reference Range Interpretation Comments MAGNESIUM (BEAKER) (test code = 2.4 mg/dL 1.6-2.6 627) Stitcher Hand ID - SO MLACTIC ACID, [id number] 03:54:32 Test Item Value Reference Range Interpretation Comments LACTATE BLOOD VENOUS 1.55 mmol/L 0.50-2.20 Specime n slightly (2) (BEAKER) (test hemolyzed code = 2789) Stitcher Hand ID - SO MOXYGEN SATURATION, [id number] 03:40:10 Test Item Value Reference Range Interpretation Comments O2 SATURATION (MEASURED) (BEAKER) 56.9 % (test code = 1455) CBC (HEMOGRAM ONLY)2021-07-24 03:38:59 Test Item Value Reference Range Interpretation Comments WHITE BLOOD CELL COUNT (BEAKER) 9.2 K/ L 3.5-10.5 (test code = 775) RED BLOOD CELL COUNT (BEAKER) 4.08 M/ L 4.63-6.08 L (test code = 761) HEMOGLOBIN (BEAKER) (test code = 12.5 GM/DL 13.7-17.5 L 410) HEMATOCRIT (BEAKER) (test code = 39.3 % 40.1-51.0 L 411) MEAN CORPUSCULAR VOLUME (BEAKER) 96.3 fL 79.0-92.2 H (test code = 753) MEAN CORPUSCULAR HEMOGLOBIN 30.6 pg 25.7-32.2 (BEAKER) (test code = 751) MEAN CORPUSCULAR HEMOGLOBIN CONC 31.8 GM/DL 32.3-36.5 L (BEAKER) (test code = 752) RED CELL DISTRIBUTION WIDTH 20.7 % 11.6-14.4 H (BEAKER) (test code = 412) PLATELET COUNT (BEAKER) (test 247 K/CU MM 150-450 code = 756) MEAN PLATELET VOLUME (BEAKER) 9.3 fL 9.4-12.4 L (test code = 754) NUCLEATED RED BLOOD CELLS 0 /100 WBC 0-0 (BEAKER) (test code = 413) [id number] 22:21:04 Test Item Value Reference Range Interpretation Comments POTASSIUM (BEAKER) (test code = 3.8 meq/L 3.5-5.1 379) Stitcher Hand ID - [id number] 22:21:03 Test Item Value Reference Range Interpretation Comments MAGNESIUM (BEAKER) (test code = 1.8 mg/dL 1.6-2.6 627) Stitcher Hand ID - BSPOCT-GLUCOSE [id number] 21:44:42 Test Item Value Reference Range Interpretation Comments POC-GLUCOSE METER 127 mg/dL 70-110 H : TESTED A T [facility] 6720 (BEAKER) (test code = [place], 1538) [address]: Stitcher Hand/Techni ebenezer ID = [id number] for ANDREW MONTILLA BASIC METABOLIC [id number] 17:50:36 Test Item Value Reference Range Interpretation Comments SODIUM (BEAKER) 131 meq/L 136-145 L (test code = 381) POTASSIUM (BEAKER) 2.9 meq/L 3.5-5.1 L (test code = 379) CHLORIDE (BEAKER) 87 meq/L 98-107 L (test code = 382) CO2 (BEAKER) (test 31 meq/L 22-29 H code = 355) BLOOD UREA NITROGEN 21 mg/dL 7-21 (BEAKER) (test code = 354) CREATININE (BEAKER) 1.07 mg/dL 0.57-1.25 (test code = 358) GLUCOSE RANDOM 177 mg/dL 70-105 H (BEAKER) (test code = 652) CALCIUM (BEAKER) 9.9 mg/dL 8.4-10.2 (test code = 697) EGFR (BEAKER) (test 73 mL/min/1.73 ESTIMA NEELA GFR IS code = 1092) sq m NOT ACCURATE CREATININE CLEARANCE IN PREDICTING GLOMERULAR FILTRATION RATE . ESTIMATED GFR I S NOT APPLICABLE FOR DIALYSIS PATIEN TS. Stitcher Hand ID - BSOXYGEN SATURATION, [id number] 14:33:03 Test Item Value Reference Range Interpretation Comments O2 SATURATION (MEASURED) (BEAKER) 67.7 % (test code = 1455) [id number] 14:31:58 Test Item Value Reference Range Interpretation Comments POTASSIUM (BEAKER) (test code = 2.9 meq/L 3.5-5.1 L 379) Stitcher Hand ID - AAHAMIDBASIC METABOLIC [id number] 11:42:26 Test Item Value Reference Range Interpretation Comments SODIUM (BEAKER) 130 meq/L 136-145 L (test code = 381) POTASSIUM (BEAKER) 3.4 meq/L 3.5-5.1 L Specimen slightly (test code = 379) hemolyzed CHLORIDE (BEAKER) 85 meq/L 98-107 L (test code = 382) CO2 (BEAKER) (test 33 meq/L 22-29 H code = 355) BLOOD UREA NITROGEN 24 mg/dL 7-21 H (BEAKER) (test code = 354) CREATININE (BEAKER) 1.14 mg/dL 0.57-1.25 Specimen slightly (test code = 358) hemolyzed GLUCOSE RANDOM 110 mg/dL 70-105 H (BEAKER) (test code = 652) CALCIUM (BEAKER) 9.9 mg/dL 8.4-10.2 (test code = 697) EGFR (BEAKER) (test 68 mL/min/1.73 ESTIMA NEELA GFR IS code = 1092) sq m NOT ACCURATE CREATININE CLEARANCE IN PREDICTING GLOMERULAR FILTRATION RATE . ESTIMATED GFR I S NOT APPLICABLE FOR DIALYSIS PATIEN TS. Stitcher Hand ID - [id number] 11:42:25 Test Item Value Reference Range Interpretation Comments MAGNESIUM (BEAKER) 2.6 mg/dL 1.6-2.6 Specimen slightly (test code = 627) hemolyzed Stitcher Hand ID - BSLACTIC ACID, [id number] 08:50:21 Test Item Value Reference Range Interpretation Comments LACTATE BLOOD VENOUS (2) (BEAKER) 1.42 mmol/L 0.50-2.20 (test code = 2872) Stitcher Hand ID - AAHAMIDOXYGEN SATURATION, [id number] 08:26:54 Test Item Value Reference Range Interpretation Comments O2 SATURATION (MEASURED) (BEAKER) 52.1 % (test code = 1455) HEPATIC FUNCTION [id number] 07:16:41 Test Item Value Reference Range Interpretation Comments TOTAL PROTEIN (BEAKER) (test code = 7.6 gm/dL 6.0-8.3 770) ALBUMIN (BEAKER) (test code = 1145) 4.1 g/dL 3.5-5.0 BILIRUBIN TOTAL (BEAKER) (test code 1.6 mg/dL 0.2-1.2 H = 377) BILIRUBIN DIRECT (BEAKER) (test 0.9 mg/dL 0.1-0.5 H code = 706) ALKALINE PHOSPHATASE (BEAKER) (test 159 U/L 40-150 H code = 346) AST (SGOT) (BEAKER) (test code = 24 U/L 5-34 353) ALT (SGPT) (BEAKER) (test code = 45 U/L 6-55 347) Stitcher Hand ID - [id number] 07:16:41 Test Item Value Reference Range Interpretation Comments MAGNESIUM (BEAKER) (test code = 2.2 mg/dL 1.6-2.6 627) Stitcher Hand ID - BSBASIC METABOLIC [id number] 07:16:40 Test Item Value Reference Range Interpretation Comments SODIUM (BEAKER) 131 meq/L 136-145 L (test code = 381) POTASSIUM (BEAKER) 3.1 meq/L 3.5-5.1 L (test code = 379) CHLORIDE (BEAKER) 88 meq/L 98-107 L (test code = 382) CO2 (BEAKER) (test 29 meq/L 22-29 code = 355) BLOOD UREA NITROGEN 25 mg/dL 7-21 H (BEAKER) (test code = 354) CREATININE (BEAKER) 1.24 mg/dL 0.57-1.25 (test code = 358) GLUCOSE RANDOM 167 mg/dL 70-105 H (BEAKER) (test code = 652) CALCIUM (BEAKER) 9.6 mg/dL 8.4-10.2 (test code = 697) EGFR (BEAKER) (test 62 mL/min/1.73 ESTIMA NEELA GFR IS code = 1092) sq m NOT ACCURATE CREATININE CLEARANCE IN PREDICTING GLOMERULAR FILTRATION RATE . ESTIMATED GFR I S NOT APPLICABLE FOR DIALYSIS PATIEN TS. Stitcher Hand ID - BSCBC (HEMOGRAM ONLY)2021-07-23 06:15:14 Test Item Value Reference Range Interpretation Comments WHITE BLOOD CELL COUNT (BEAKER) 7.6 K/ L 3.5-10.5 (test code = 775) RED BLOOD CELL COUNT (BEAKER) 3.77 M/ L 4.63-6.08 L (test code = 761) HEMOGLOBIN (BEAKER) (test code = 11.4 GM/DL 13.7-17.5 L 410) HEMATOCRIT (BEAKER) (test code = 36.5 % 40.1-51.0 L 411) MEAN CORPUSCULAR VOLUME (BEAKER) 96.8 fL 79.0-92.2 H (test code = 753) MEAN CORPUSCULAR HEMOGLOBIN 30.2 pg 25.7-32.2 (BEAKER) (test code = 751) MEAN CORPUSCULAR HEMOGLOBIN CONC 31.2 GM/DL 32.3-36.5 L (BEAKER) (test code = 752) RED CELL DISTRIBUTION WIDTH 21.1 % 11.6-14.4 H (BEAKER) (test code = 412) PLATELET COUNT (BEAKER) (test 237 K/CU MM 150-450 code = 756) MEAN PLATELET VOLUME (BEAKER) 9.7 fL 9.4-12.4 (test code = 754) NUCLEATED RED BLOOD CELLS 0 /100 WBC 0-0 (BEAKER) (test code = 413) LACTIC ACID, [id number] 05:57:34 Test Item Value Reference Range Interpretation Comments LACTATE BLOOD VENOUS (2) (BEAKER) 2.09 mmol/L 0.50-2.20 (test code = 2872) Stitcher Hand ID - SO MOXYGEN SATURATION, [id number] 05:44:48 Test Item Value Reference Range Interpretation Comments O2 SATURATION (MEASURED) (BEAKER) 71.1 % (test code = 1455) [id number] 00:07:52 Test Item Value Reference Range Interpretation Comments MAGNESIUM (BEAKER) (test code = 2.1 mg/dL 1.6-2.6 627) Stitcher Hand ID - BSBASIC METABOLIC [id number] 00:07:51 Test Item Value Reference Range Interpretation Comments SODIUM (BEAKER) 128 meq/L 136-145 L (test code = 381) POTASSIUM (BEAKER) 3.7 meq/L 3.5-5.1 (test code = 379) CHLORIDE (BEAKER) 86 meq/L 98-107 L (test code = 382) CO2 (BEAKER) (test 31 meq/L 22-29 H code = 355) BLOOD UREA NITROGEN 23 mg/dL 7-21 H (BEAKER) (test code = 354) CREATININE (BEAKER) 1.19 mg/dL 0.57-1.25 (test code = 358) GLUCOSE RANDOM 159 mg/dL 70-105 H (BEAKER) (test code = 652) CALCIUM (BEAKER) 9.6 mg/dL 8.4-10.2 (test code = 697) EGFR (BEAKER) (test 65 mL/min/1.73 ESTIMA NEELA GFR IS code = 1092) sq m NOT ACCURATE CREATININE CLEARANCE IN PREDICTING GLOMERULAR FILTRATION RATE . ESTIMATED GFR I S NOT APPLICABLE FOR DIALYSIS PATIEN TS. Stitcher Hand ID - BSSARS-COV2/RT-PCR ([facility])2021-07-22 23:44:45 Test Item Value Reference Range Interpretation Comments SARS-COV2/RT-PCR (test code = Negative Negative [id number]) Negative result for this test determines that SARS-CoV-2 RNA was not present in the specimen above the Limit of Detection (LOD). However, Negative results do not preclude SARS-CoV-2 infection and should not be used as the sole basis for treatment or patient management decisions. Negative results must be combined with clinical observations, patient history, and epidemiological information. A false negative result may occur if a specimen is improperly collected, transported, or handled. A false negative result should be considered if patient's recent exposures or clinical presentation indicate that COVID-19 (SARS-CoV-2) is likely and diagnostic tests for other causes of illness are negative. Re-testing should be considered in cases of suspected false negatives.The limit of detection for this assay is 100 copies/mL.This SARS-CoV-2 test is a real-time RT_PCR test intended for the qualitative detection of nucleic acid from SARS-CoV-2 in a nasopharyngeal swab specimen collected from individuals suspected of COVID-19 by their healthcare provider.This test has not been Food and Drug Administration (FDA) cleared or approved. This is a modified version of an approved Emergency Use Authorization (EUA) and is in the process of review by the FDA. Once authorized by the FDA, the issued EUA will be effective until the declaration that circumstances exist justifying the authorization of the emergency use of in vitro diagnostic tests for detection and/or diagnosis of COVID-19 is terminated under Section 564(b)(2) of the Act or the EUA is revoked under Section 564(g) of the Act.Testing was performed using the [employer] SARS-CoV-2 assay.Fact Sheet for Healthcare Providers:https://www.[employer].Playthe.net/eduardo/RT SARS-CoV-2 HCP Fact Sheet 51- 886704.pdfFact Sheet for Healthcare Patients:https://www.molecular.Playthe.net/eduardo/RT SARS-CoV-2 Patient Fact Sheet EN 51-859366Z6.pdfBASIC METABOLIC [id number] 19:00:56 Test Item Value Reference Range Interpretation Comments SODIUM (BEAKER) 134 meq/L 136-145 L (test code = 381) POTASSIUM (BEAKER) 3.3 meq/L 3.5-5.1 L (test code = 379) CHLORIDE (BEAKER) 88 meq/L 98-107 L (test code = 382) CO2 (BEAKER) (test 33 meq/L 22-29 H code = 355) BLOOD UREA NITROGEN 22 mg/dL 7-21 H (BEAKER) (test code = 354) CREATININE (BEAKER) 1.14 mg/dL 0.57-1.25 (test code = 358) GLUCOSE RANDOM 104 mg/dL 70-105 (BEAKER) (test code = 652) CALCIUM (BEAKER) 10.0 mg/dL 8.4-10.2 (test code = 697) EGFR (BEAKER) (test 68 mL/min/1.73 ESTIMA NEELA GFR IS code = 1092) sq m NOT ACCURATE CREATININE CLEARANCE IN PREDICTING GLOMERULAR FILTRATION RATE . ESTIMATED GFR I S NOT APPLICABLE FOR DIALYSIS PATIEN TS. Stitcher Hand ID - [id number] 19:00:56 Test Item Value Reference Range Interpretation Comments MAGNESIUM (BEAKER) (test code = 2.0 mg/dL 1.6-2.6 627) Stitcher Hand ID - BSBASIC METABOLIC [id number] 11:37:48 Test Item Value Reference Range Interpretation Comments SODIUM (BEAKER) 133 meq/L 136-145 L (test code = 381) POTASSIUM (BEAKER) 3.7 meq/L 3.5-5.1 (test code = 379) CHLORIDE (BEAKER) 87 meq/L 98-107 L (test code = 382) CO2 (BEAKER) (test 35 meq/L 22-29 H code = 355) BLOOD UREA NITROGEN 23 mg/dL 7-21 H (BEAKER) (test code = 354) CREATININE (BEAKER) 1.09 mg/dL 0.57-1.25 (test code = 358) GLUCOSE RANDOM 151 mg/dL 70-105 H (BEAKER) (test code = 652) CALCIUM (BEAKER) 9.7 mg/dL 8.4-10.2 (test code = 697) EGFR (BEAKER) (test 72 mL/min/1.73 ESTIMA NEELA GFR IS code = 1092) sq m NOT ACCURATE CREATININE CLEARANCE IN PREDICTING GLOMERULAR FILTRATION RATE . ESTIMATED GFR I S NOT APPLICABLE FOR DIALYSIS PATIEN TS. Stitcher Hand ID - PIAYA [id number] 11:37:48 Test Item Value Reference Range Interpretation Comments MAGNESIUM (BEAKER) (test code = 1.8 mg/dL 1.6-2.6 627) Stitcher Hand ID - PINISHANT LRAD, CHEST, 1 VIEW, NON [id number] 07:28:00Reason for exam:->pul edemaShould this be performed at the bedside?->Yes [facility] : 1970 Sex: MFINAL REPORT RAD, CHEST, 1 VIEW, NON DEPT INDICATION: pul edema COMPARISON: Prior day's exam FINDINGS: Portable frontal view of the chest. IMPRESSION: Support Lines: Stable. Lungs and pleura: Improved interstitial congestion compared to the prior date. No pneumothorax.Heart and mediastinum: Stable contours. Stable pacer apparatus.Additional findings: None. Signed: JR Dumont Robert MDReport Verified Date/Time: 07/22/2021 07:28:52 Reading Location: [facility] Radiology Reading Room HEPATIC FUNCTION [id number] 05:06:52 Test Item Value Reference Range Interpretation Comments TOTAL PROTEIN (BEAKER) (test code = 7.9 gm/dL 6.0-8.3 770) ALBUMIN (BEAKER) (test code = 1145) 4.2 g/dL 3.5-5.0 BILIRUBIN TOTAL (BEAKER) (test code 2.0 mg/dL 0.2-1.2 H = 377) BILIRUBIN DIRECT (BEAKER) (test 1.1 mg/dL 0.1-0.5 H code = 706) ALKALINE PHOSPHATASE (BEAKER) (test 169 U/L 40-150 H code = 346) AST (SGOT) (BEAKER) (test code = 22 U/L 5-34 353) ALT (SGPT) (BEAKER) (test code = 52 U/L 6-55 347) Stitcher Hand ID - SOCO [id number] 05:06:51 Test Item Value Reference Range Interpretation Comments MAGNESIUM (BEAKER) (test code = 2.3 mg/dL 1.6-2.6 627) Stitcher Hand ID - SOCO [id number] 05:06:51 Test Item Value Reference Range Interpretation Comments PHOSPHORUS (BEAKER) (test code = 4.4 mg/dL 2.3-4.7 604) Stitcher Hand ID - SOCO LCOMPREHENSIVE METABOLIC [id number] 05:06:50 Test Item Value Reference Range Interpretation Comments TOTAL PROTEIN 7.9 gm/dL 6.0-8.3 (BEAKER) (test code = 770) ALBUMIN (BEAKER) 4.2 g/dL 3.5-5.0 (test code = 1145) ALKALINE PHOSPHATASE 169 U/L 40-150 H (BEAKER) (test code = 346) BILIRUBIN TOTAL 2.0 mg/dL 0.2-1.2 H (BEAKER) (test code = 377) SODIUM (BEAKER) (test 133 meq/L 136-145 L code = 381) POTASSIUM (BEAKER) 2.9 meq/L 3.5-5.1 L (test code = 379) CHLORIDE (BEAKER) 87 meq/L 98-107 L (test code = 382) CO2 (BEAKER) (test 34 meq/L 22-29 H code = 355) BLOOD UREA NITROGEN 22 mg/dL 7-21 H (BEAKER) (test code = 354) CREATININE (BEAKER) 1.18 mg/dL 0.57-1.25 (test code = 358) GLUCOSE RANDOM 170 mg/dL 70-105 H (BEAKER) (test code = 652) CALCIUM (BEAKER) 9.9 mg/dL 8.4-10.2 (test code = 697) AST (SGOT) (BEAKER) 22 U/L 5-34 (test code = 353) ALT (SGPT) (BEAKER) 52 U/L 6-55 (test code = 347) EGFR (BEAKER) (test 65 mL/min/1.73 ESTIMA NEELA GFR IS code = 1092) sq m NOT ACCURATE CREATININE CLEARANCE IN PREDICTING GLOMERULAR FILTRATION RATE . ESTIMATED GFR I S NOT APPLICABLE FOR DIALYSIS PATIEN TS. Stitcher Hand ID - PINISHANT LLACTIC ACID, [id number] 04:35:15 Test Item Value Reference Range Interpretation Comments LACTATE BLOOD VENOUS (2) (BEAKER) 1.17 mmol/L 0.50-2.20 (test code = 2872) Stitcher Hand ID - PIAYA LCBC W/PLT COUNT & AUTO [id number] 04:34:48 Test Item Value Reference Range Interpretation Comments WHITE BLOOD CELL COUNT (BEAKER) 8.5 K/ L 3.5-10.5 (test code = 775) RED BLOOD CELL COUNT (BEAKER) 3.85 M/ L 4.63-6.08 L (test code = 761) HEMOGLOBIN (BEAKER) (test code = 11.6 GM/DL 13.7-17.5 L 410) HEMATOCRIT (BEAKER) (test code = 36.9 % 40.1-51.0 L 411) MEAN CORPUSCULAR VOLUME (BEAKER) 95.8 fL 79.0-92.2 H (test code = 753) MEAN CORPUSCULAR HEMOGLOBIN 30.1 pg 25.7-32.2 (BEAKER) (test code = 751) MEAN CORPUSCULAR HEMOGLOBIN CONC 31.4 GM/DL 32.3-36.5 L (BEAKER) (test code = 752) RED CELL DISTRIBUTION WIDTH 21.7 % 11.6-14.4 H (BEAKER) (test code = 412) PLATELET COUNT (BEAKER) (test 233 K/CU MM 150-450 code = 756) MEAN PLATELET VOLUME (BEAKER) 9.6 fL 9.4-12.4 (test code = 754) NUCLEATED RED BLOOD CELLS 0 /100 WBC 0-0 (BEAKER) (test code = 413) NEUTROPHILS RELATIVE PERCENT 82 % (BEAKER) (test code = 429) LYMPHOCYTES RELATIVE PERCENT 10 % (BEAKER) (test code = 430) MONOCYTES RELATIVE PERCENT 6 % (BEAKER) (test code = 431) EOSINOPHILS RELATIVE PERCENT 1 % (BEAKER) (test code = 432) BASOPHILS RELATIVE PERCENT 0 % (BEAKER) (test code = 437) NEUTROPHILS ABSOLUTE COUNT 6.96 K/ L 1.78-5.38 H (BEAKER) (test code = 670) LYMPHOCYTES ABSOLUTE COUNT 0.81 K/ L 1.32-3.57 L (BEAKER) (test code = 414) MONOCYTES ABSOLUTE COUNT (BEAKER) 0.51 K/ L 0.30-0.82 (test code = 415) EOSINOPHILS ABSOLUTE COUNT 0.10 K/ L 0.04-0.54 (BEAKER) (test code = 416) BASOPHILS ABSOLUTE COUNT (BEAKER) 0.03 K/ L 0.01-0.08 (test code = 417) IMMATURE GRANULOCYTES-RELATIVE 1 % 0-1 PERCENT (BEAKER) (test code = 2801) CALCIUM, [id number] 04:34:38 Test Item Value Reference Range Interpretation Comments CALCIUM IONIZED (BEAKER) (test 1.11 mmol/L 1.12-1.27 L code = 698) PH, BLOOD (BEAKER) (test code = 7.41 1810) OXYGEN SATURATION, [id number] 04:30:19 Test Item Value Reference Range Interpretation Comments O2 SATURATION (MEASURED) (BEAKER) 78.5 % (test code = 1455) BASIC METABOLIC [id number] 00:29:24 Test Item Value Reference Range Interpretation Comments SODIUM (BEAKER) 132 meq/L 136-145 L (test code = 381) POTASSIUM (BEAKER) 3.6 meq/L 3.5-5.1 Specimen slightly (test code = 379) hemolyzed CHLORIDE (BEAKER) 86 meq/L 98-107 L (test code = 382) CO2 (BEAKER) (test 32 meq/L 22-29 H code = 355) BLOOD UREA NITROGEN 23 mg/dL 7-21 H (BEAKER) (test code = 354) CREATININE (BEAKER) 1.17 mg/dL 0.57-1.25 Specimen slightly (test code = 358) hemolyzed GLUCOSE RANDOM 139 mg/dL 70-105 H (BEAKER) (test code = 652) CALCIUM (BEAKER) 10.1 mg/dL 8.4-10.2 (test code = 697) EGFR (BEAKER) (test 66 mL/min/1.73 ESTIMA NEELA GFR IS code = 1092) sq m NOT ACCURATE CREATININE CLEARANCE IN PREDICTING GLOMERULAR FILTRATION RATE . ESTIMATED GFR I S NOT APPLICABLE FOR DIALYSIS PATIEN TS. Stitcher Hand ID - SOCO [id number] 00:29:23 Test Item Value Reference Range Interpretation Comments MAGNESIUM (BEAKER) 2.1 mg/dL 1.6-2.6 Specimen slightly (test code = 627) hemolyzed Stitcher Hand ID Sal WAN [id number] 18:35:19 Test Item Value Reference Range Interpretation Comments MAGNESIUM (BEAKER) 2.5 mg/dL 1.6-2.6 Specimen slightly (test code = 627) hemolyzed Stitcher Hand ID - BSBASIC METABOLIC [id number] 18:35:19 Test Item Value Reference Range Interpretation Comments SODIUM (BEAKER) 135 meq/L 136-145 L (test code = 381) POTASSIUM (BEAKER) 4.5 meq/L 3.5-5.1 Specimen slightly (test code = 379) hemolyzed CHLORIDE (BEAKER) 91 meq/L 98-107 L (test code = 382) CO2 (BEAKER) (test 31 meq/L 22-29 H code = 355) BLOOD UREA NITROGEN 21 mg/dL 7-21 (BEAKER) (test code = 354) CREATININE (BEAKER) 1.14 mg/dL 0.57-1.25 Specimen slightly (test code = 358) hemolyzed GLUCOSE RANDOM 134 mg/dL 70-105 H (BEAKER) (test code = 652) CALCIUM (BEAKER) 9.7 mg/dL 8.4-10.2 (test code = 697) EGFR (BEAKER) (test 68 mL/min/1.73 ESTIMA NEELA GFR IS code = 1092) sq m NOT ACCURATE CREATININE CLEARANCE IN PREDICTING GLOMERULAR FILTRATION RATE . ESTIMATED GFR I S NOT APPLICABLE FOR DIALYSIS PATIEN TS. Stitcher Hand ID - BSBASIC METABOLIC [id number] 14:55:56 Test Item Value Reference Range Interpretation Comments SODIUM (BEAKER) 134 meq/L 136-145 L (test code = 381) POTASSIUM (BEAKER) 2.9 meq/L 3.5-5.1 L (test code = 379) CHLORIDE (BEAKER) 88 meq/L 98-107 L (test code = 382) CO2 (BEAKER) (test 34 meq/L 22-29 H code = 355) BLOOD UREA NITROGEN 21 mg/dL 7-21 (BEAKER) (test code = 354) CREATININE (BEAKER) 1.13 mg/dL 0.57-1.25 (test code = 358) GLUCOSE RANDOM 176 mg/dL 70-105 H (BEAKER) (test code = 652) CALCIUM (BEAKER) 9.3 mg/dL 8.4-10.2 (test code = 697) EGFR (BEAKER) (test 69 mL/min/1.73 ESTIMA NEELA GFR IS code = 1092) sq m NOT ACCURATE CREATININE CLEARANCE IN PREDICTING GLOMERULAR FILTRATION RATE . ESTIMATED GFR I S NOT APPLICABLE FOR DIALYSIS PATIEN TS. Stitcher Hand ID - [id number] 14:55:56 Test Item Value Reference Range Interpretation Comments MAGNESIUM (BEAKER) (test code = 1.9 mg/dL 1.6-2.6 627) Stitcher Hand ID - BSHEPATIC FUNCTION [id number] 06:50:39 Test Item Value Reference Range Interpretation Comments TOTAL PROTEIN (BEAKER) (test code = 7.7 gm/dL 6.0-8.3 770) ALBUMIN (BEAKER) (test code = 1145) 4.1 g/dL 3.5-5.0 BILIRUBIN TOTAL (BEAKER) (test code 2.0 mg/dL 0.2-1.2 H = 377) BILIRUBIN DIRECT (BEAKER) (test 1.0 mg/dL 0.1-0.5 H code = 706) ALKALINE PHOSPHATASE (BEAKER) (test 157 U/L 40-150 H code = 346) AST (SGOT) (BEAKER) (test code = 20 U/L 5-34 353) ALT (SGPT) (BEAKER) (test code = 57 U/L 6-55 H 347) Stitcher Hand ID - DBSpecimen slightly [id number] 06:50:38 Test Item Value Reference Range Interpretation Comments PHOSPHORUS (BEAKER) (test code = 4.1 mg/dL 2.3-4.7 604) Stitcher Hand ID - DBBASIC METABOLIC [id number] 06:50:38 Test Item Value Reference Range Interpretation Comments SODIUM (BEAKER) 133 meq/L 136-145 L (test code = 381) POTASSIUM (BEAKER) 2.9 meq/L 3.5-5.1 L (test code = 379) CHLORIDE (BEAKER) 86 meq/L 98-107 L (test code = 382) CO2 (BEAKER) (test 35 meq/L 22-29 H code = 355) BLOOD UREA NITROGEN 19 mg/dL 7-21 (BEAKER) (test code = 354) CREATININE (BEAKER) 1.08 mg/dL 0.57-1.25 (test code = 358) GLUCOSE RANDOM 138 mg/dL 70-105 H (BEAKER) (test code = 652) CALCIUM (BEAKER) 9.7 mg/dL 8.4-10.2 (test code = 697) EGFR (BEAKER) (test 72 mL/min/1.73 ESTIMA NEELA GFR IS code = 1092) sq m NOT ACCURATE CREATININE CLEARANCE IN PREDICTING GLOMERULAR FILTRATION RATE . ESTIMATED GFR I S NOT APPLICABLE FOR DIALYSIS PATIEN TS. Stitcher Hand ID - DBSpecimen slightly [id number] 06:50:37 Test Item Value Reference Range Interpretation Comments MAGNESIUM (BEAKER) (test code = 1.9 mg/dL 1.6-2.6 627) Stitcher Hand ID - DBLACTIC ACID, [id number] 06:43:16 Test Item Value Reference Range Interpretation Comments LACTATE BLOOD VENOUS (2) (BEAKER) 0.74 mmol/L 0.50-2.20 (test code = 2872) Stitcher Hand ID - EOOXYGEN SATURATION, [id number] 06:42:53 Test Item Value Reference Range Interpretation Comments O2 SATURATION (MEASURED) (BEAKER) 65.9 % (test code = 1455) CBC (HEMOGRAM ONLY)2021-07-21 06:33:57 Test Item Value Reference Range Interpretation Comments WHITE BLOOD CELL COUNT (BEAKER) 9.9 K/ L 3.5-10.5 (test code = 775) RED BLOOD CELL COUNT (BEAKER) 3.80 M/ L 4.63-6.08 L (test code = 761) HEMOGLOBIN (BEAKER) (test code = 11.5 GM/DL 13.7-17.5 L 410) HEMATOCRIT (BEAKER) (test code = 37.3 % 40.1-51.0 L 411) MEAN CORPUSCULAR VOLUME (BEAKER) 98.2 fL 79.0-92.2 H (test code = 753) MEAN CORPUSCULAR HEMOGLOBIN 30.3 pg 25.7-32.2 (BEAKER) (test code = 751) MEAN CORPUSCULAR HEMOGLOBIN CONC 30.8 GM/DL 32.3-36.5 L (BEAKER) (test code = 752) RED CELL DISTRIBUTION WIDTH 21.8 % 11.6-14.4 H (BEAKER) (test code = 412) PLATELET COUNT (BEAKER) (test 237 K/CU MM 150-450 code = 756) MEAN PLATELET VOLUME (BEAKER) 9.0 fL 9.4-12.4 L (test code = 754) NUCLEATED RED BLOOD CELLS 0 /100 WBC 0-0 (BEAKER) (test code = 413) RAD, CHEST, 1 VIEW, NON [id number] 05:48:00Reason for exam:->pul edemaShould this be performed at the bedside?->Yes [facility] : 1970 Sex: MFINAL REPORT RAD, CHEST, 1 VIEW, NON DEPT INDICATION: pul edema COMPARISON: Prior day's exam FINDINGS: Portable frontal view of the chest. IMPRESSION: Support Lines: No significant change. Lungs and pleura: Elevated right hemidiaphragm. Prominent interstitial markings suggest vascularcongestion. Suspect small right pleural effusion or pleural thickening. No pneumothorax.Heart and mediastinum: Stable contours. Additional findings: None. Signed: Ky Woodwardeport Verified Date/Time: 07/21/2021 05:48:08 BASIC METABOLIC [id number] 00:31:51 Test Item Value Reference Range Interpretation Comments SODIUM (BEAKER) 133 meq/L 136-145 L (test code = 381) POTASSIUM (BEAKER) 2.9 meq/L 3.5-5.1 L (test code = 379) CHLORIDE (BEAKER) 89 meq/L 98-107 L (test code = 382) CO2 (BEAKER) (test 33 meq/L 22-29 H code = 355) BLOOD UREA NITROGEN 20 mg/dL 7-21 (BEAKER) (test code = 354) CREATININE (BEAKER) 1.09 mg/dL 0.57-1.25 (test code = 358) GLUCOSE RANDOM 156 mg/dL 70-105 H (BEAKER) (test code = 652) CALCIUM (BEAKER) 9.8 mg/dL 8.4-10.2 (test code = 697) EGFR (BEAKER) (test 72 mL/min/1.73 ESTIMA NEELA GFR IS code = 1092) sq m NOT ACCURATE CREATININE CLEARANCE IN PREDICTING GLOMERULAR FILTRATION RATE . ESTIMATED GFR I S NOT APPLICABLE FOR DIALYSIS PATIEN TS. Stitcher Hand ID - [id number] 21:08:23 Test Item Value Reference Range Interpretation Comments MAGNESIUM (BEAKER) 1.9 mg/dL 1.6-2.6 Specimen slightly (test code = 627) hemolyzed Stitcher Hand ID - DBBASIC METABOLIC [id number] 17:15:02 Test Item Value Reference Range Interpretation Comments SODIUM (BEAKER) 132 meq/L 136-145 L (test code = 381) POTASSIUM (BEAKER) 4.7 meq/L 3.5-5.1 Specimen slightly (test code = 379) hemolyzed CHLORIDE (BEAKER) 90 meq/L 98-107 L (test code = 382) CO2 (BEAKER) (test 33 meq/L 22-29 H code = 355) BLOOD UREA NITROGEN 21 mg/dL 7-21 (BEAKER) (test code = 354) CREATININE (BEAKER) 1.09 mg/dL 0.57-1.25 Specimen slightly (test code = 358) hemolyzed GLUCOSE RANDOM 131 mg/dL 70-105 H (BEAKER) (test code = 652) CALCIUM (BEAKER) 10.0 mg/dL 8.4-10.2 (test code = 697) EGFR (BEAKER) (test 72 mL/min/1.73 ESTIMA NEELA GFR IS code = 1092) sq m NOT ACCURATE CREATININE CLEARANCE IN PREDICTING GLOMERULAR FILTRATION RATE . ESTIMATED GFR I S NOT APPLICABLE FOR DIALYSIS PATIEN TS. Stitcher Hand ID - [id number] 12:44:32 Test Item Value Reference Range Interpretation Comments MAGNESIUM (BEAKER) (test code = 2.1 mg/dL 1.6-2.6 627) Stitcher Hand ID - [id number] METABOLIC [id number] 12:44:31 Test Item Value Reference Range Interpretation Comments SODIUM (BEAKER) 135 meq/L 136-145 L (test code = 381) POTASSIUM (BEAKER) 4.2 meq/L 3.5-5.1 (test code = 379) CHLORIDE (BEAKER) 91 meq/L 98-107 L (test code = 382) CO2 (BEAKER) (test 34 meq/L 22-29 H code = 355) BLOOD UREA NITROGEN 20 mg/dL 7-21 (BEAKER) (test code = 354) CREATININE (BEAKER) 1.06 mg/dL 0.57-1.25 (test code = 358) GLUCOSE RANDOM 160 mg/dL 70-105 H (BEAKER) (test code = 652) CALCIUM (BEAKER) 10.0 mg/dL 8.4-10.2 (test code = 697) EGFR (BEAKER) (test 74 mL/min/1.73 ESTIMA NEELA GFR IS code = 1092) sq m NOT ACCURATE CREATININE CLEARANCE IN PREDICTING GLOMERULAR FILTRATION RATE . ESTIMATED GFR I S NOT APPLICABLE FOR DIALYSIS PATIEN TS. Stitcher Hand ID - LMBASIC METABOLIC [id number] 07:21:52 Test Item Value Reference Range Interpretation Comments SODIUM (BEAKER) 134 meq/L 136-145 L (test code = 381) POTASSIUM (BEAKER) 3.1 meq/L 3.5-5.1 L (test code = 379) CHLORIDE (BEAKER) 91 meq/L 98-107 L (test code = 382) CO2 (BEAKER) (test 35 meq/L 22-29 H code = 355) BLOOD UREA NITROGEN 19 mg/dL 7-21 (BEAKER) (test code = 354) CREATININE (BEAKER) 0.92 mg/dL 0.57-1.25 (test code = 358) GLUCOSE RANDOM 126 mg/dL 70-105 H (BEAKER) (test code = 652) CALCIUM (BEAKER) 8.7 mg/dL 8.4-10.2 (test code = 697) EGFR (BEAKER) (test 87 mL/min/1.73 ESTIMA NEELA GFR IS code = 1092) sq m NOT ACCURATE CREATININE CLEARANCE IN PREDICTING GLOMERULAR FILTRATION RATE . ESTIMATED GFR I S NOT APPLICABLE FOR DIALYSIS PATIEN TS. Stitcher Hand ID - DBRAD, CHEST, 1 VIEW, NON [id number] 04:15:00Reason for exam:- >pul edemaShould this be performed at the bedside?->Yes [facility] : 1970 Sex: MFINAL REPORT RAD, CHEST, 1 VIEW, NON DEPT INDICATION: pul edema COMPARISON: 14 hoursprior FINDINGS: Portable frontal view of the chest. IMPRESSION: Support Lines: No significant change. Lungs and pleura: Minimal atelectasis without overt pulmonary edema. No focal lung consolidation orpleural effusion. No pneumothorax.Heart and mediastinum: Stable enlarged cardiac silhouette compatible with cardiomegaly. Additional findings: None. Signed: Ky Woodwardeport Verified Date/Time:07/20/2021 04:15:31 B-TYPE NATRIURETIC FACTOR (BNP)2021-07-20 02:58:53 Test Item Value Reference Range Interpretation Comments B-TYPE NATRIURETIC PEPTIDE 1360 pg/mL 0-100 H (BEAKER) (test code = 700) Stitcher Hand ID - [id number] 02:58:52 Test Item Value Reference Range Interpretation Comments PHOSPHORUS (BEAKER) (test code = 3.4 mg/dL 2.3-4.7 604) Stitcher Hand ID - DBHEPATIC FUNCTION [id number] 02:58:52 Test Item Value Reference Range Interpretation Comments TOTAL PROTEIN (BEAKER) (test code = 7.2 gm/dL 6.0-8.3 770) ALBUMIN (BEAKER) (test code = 1145) 3.8 g/dL 3.5-5.0 BILIRUBIN TOTAL (BEAKER) (test code 1.8 mg/dL 0.2-1.2 H = 377) BILIRUBIN DIRECT (BEAKER) (test 0.9 mg/dL 0.1-0.5 H code = 706) ALKALINE PHOSPHATASE (BEAKER) (test 152 U/L 40-150 H code = 346) AST (SGOT) (BEAKER) (test code = 31 U/L 5-34 353) ALT (SGPT) (BEAKER) (test code = 70 U/L 6-55 H 347) Stitcher Hand ID - DBCOMPREHENSIVE METABOLIC [id number] 02:58:51 Test Item Value Reference Range Interpretation Comments TOTAL PROTEIN 7.2 gm/dL 6.0-8.3 (BEAKER) (test code = 770) ALBUMIN (BEAKER) 3.8 g/dL 3.5-5.0 (test code = 1145) ALKALINE PHOSPHATASE 152 U/L 40-150 H (BEAKER) (test code = 346) BILIRUBIN TOTAL 1.8 mg/dL 0.2-1.2 H (BEAKER) (test code = 377) SODIUM (BEAKER) (test 134 meq/L 136-145 L code = 381) POTASSIUM (BEAKER) 3.7 meq/L 3.5-5.1 (test code = 379) CHLORIDE (BEAKER) 90 meq/L 98-107 L (test code = 382) CO2 (BEAKER) (test 35 meq/L 22-29 H code = 355) BLOOD UREA NITROGEN 19 mg/dL 7-21 (BEAKER) (test code = 354) CREATININE (BEAKER) 1.02 mg/dL 0.57-1.25 (test code = 358) GLUCOSE RANDOM 122 mg/dL 70-105 H (BEAKER) (test code = 652) CALCIUM (BEAKER) 9.4 mg/dL 8.4-10.2 (test code = 697) AST (SGOT) (BEAKER) 31 U/L 5-34 (test code = 353) ALT (SGPT) (BEAKER) 70 U/L 6-55 H (test code = 347) EGFR (BEAKER) (test 77 mL/min/1.73 ESTIMA NEELA GFR IS code = 1092) sq m NOT ACCURATE CREATININE CLEARANCE IN PREDICTING GLOMERULAR FILTRATION RATE . ESTIMATED GFR I S NOT APPLICABLE FOR DIALYSIS PATIEN TS. Stitcher Hand ID - [id number] 02:58:51 Test Item Value Reference Range Interpretation Comments MAGNESIUM (BEAKER) (test code = 1.8 mg/dL 1.6-2.6 627) Stitcher Hand ID - DBLACTIC ACID, [id number] 02:49:30 Test Item Value Reference Range Interpretation Comments LACTATE BLOOD VENOUS (2) (BEAKER) 1.02 mmol/L 0.50-2.20 (test code = 2872) Stitcher Hand ID - DBOXYGEN SATURATION, [id number] 02:37:09 Test Item Value Reference Range Interpretation Comments O2 SATURATION (MEASURED) (BEAKER) 55.8 % (test code = 1455) CALCIUM, [id number] 02:34:52 Test Item Value Reference Range Interpretation Comments CALCIUM IONIZED (BEAKER) (test 1.09 mmol/L 1.12-1.27 L code = 698) PH, BLOOD (BEAKER) (test code = 7.42 1810) CBC W/PLT COUNT & AUTO [id number] 02:32:59 Test Item Value Reference Range Interpretation Comments WHITE BLOOD CELL COUNT (BEAKER) 8.8 K/ L 3.5-10.5 (test code = 775) RED BLOOD CELL COUNT (BEAKER) 3.63 M/ L 4.63-6.08 L (test code = 761) HEMOGLOBIN (BEAKER) (test code = 10.8 GM/DL 13.7-17.5 L 410) HEMATOCRIT (BEAKER) (test code = 35.5 % 40.1-51.0 L 411) MEAN CORPUSCULAR VOLUME (BEAKER) 97.8 fL 79.0-92.2 H (test code = 753) MEAN CORPUSCULAR HEMOGLOBIN 29.8 pg 25.7-32.2 (BEAKER) (test code = 751) MEAN CORPUSCULAR HEMOGLOBIN CONC 30.4 GM/DL 32.3-36.5 L (BEAKER) (test code = 752) RED CELL DISTRIBUTION WIDTH 22.2 % 11.6-14.4 H (BEAKER) (test code = 412) PLATELET COUNT (BEAKER) (test 276 K/CU MM 150-450 code = 756) MEAN PLATELET VOLUME (BEAKER) 9.3 fL 9.4-12.4 L (test code = 754) NUCLEATED RED BLOOD CELLS 0 /100 WBC 0-0 (BEAKER) (test code = 413) NEUTROPHILS RELATIVE PERCENT 79 % (BEAKER) (test code = 429) LYMPHOCYTES RELATIVE PERCENT 12 % (BEAKER) (test code = 430) MONOCYTES RELATIVE PERCENT 6 % (BEAKER) (test code = 431) EOSINOPHILS RELATIVE PERCENT 1 % (BEAKER) (test code = 432) BASOPHILS RELATIVE PERCENT 0 % (BEAKER) (test code = 437) NEUTROPHILS ABSOLUTE COUNT 6.98 K/ L 1.78-5.38 H (BEAKER) (test code = 670) LYMPHOCYTES ABSOLUTE COUNT 1.07 K/ L 1.32-3.57 L (BEAKER) (test code = 414) MONOCYTES ABSOLUTE COUNT (BEAKER) 0.54 K/ L 0.30-0.82 (test code = 415) EOSINOPHILS ABSOLUTE COUNT 0.12 K/ L 0.04-0.54 (BEAKER) (test code = 416) BASOPHILS ABSOLUTE COUNT (BEAKER) 0.03 K/ L 0.01-0.08 (test code = 417) IMMATURE GRANULOCYTES-RELATIVE 1 % 0-1 PERCENT (BEAKER) (test code = 2801) BASIC METABOLIC [id number] 00:03:30 Test Item Value Reference Range Interpretation Comments SODIUM (BEAKER) 133 meq/L 136-145 L (test code = 381) POTASSIUM (BEAKER) 3.5 meq/L 3.5-5.1 Specimen slightly (test code = 379) hemolyzed CHLORIDE (BEAKER) 88 meq/L 98-107 L (test code = 382) CO2 (BEAKER) (test 33 meq/L 22-29 H code = 355) BLOOD UREA NITROGEN 20 mg/dL 7-21 (BEAKER) (test code = 354) CREATININE (BEAKER) 1.01 mg/dL 0.57-1.25 Specimen slightly (test code = 358) hemolyzed GLUCOSE RANDOM 165 mg/dL 70-105 H (BEAKER) (test code = 652) CALCIUM (BEAKER) 9.3 mg/dL 8.4-10.2 (test code = 697) EGFR (BEAKER) (test 78 mL/min/1.73 ESTIMA NEELA GFR IS code = 1092) sq m NOT ACCURATE CREATININE CLEARANCE IN PREDICTING GLOMERULAR FILTRATION RATE . ESTIMATED GFR I S NOT APPLICABLE FOR DIALYSIS PATIEN TS. Stitcher Hand ID - [id number] 21:23:10 Test Item Value Reference Range Interpretation Comments POTASSIUM (BEAKER) (test code = 3.1 meq/L 3.5-5.1 L 379) Stitcher Hand ID - DBBASIC METABOLIC [id number] 18:30:00 Test Item Value Reference Range Interpretation Comments SODIUM (BEAKER) 134 meq/L 136-145 L (test code = 381) POTASSIUM (BEAKER) 2.7 meq/L 3.5-5.1 L Specimen slightly (test code = 379) hemolyzed CHLORIDE (BEAKER) 85 meq/L 98-107 L (test code = 382) CO2 (BEAKER) (test 36 meq/L 22-29 H code = 355) BLOOD UREA NITROGEN 19 mg/dL 7-21 (BEAKER) (test code = 354) CREATININE (BEAKER) 1.06 mg/dL 0.57-1.25 Specimen slightly (test code = 358) hemolyzed GLUCOSE RANDOM 152 mg/dL 70-105 H (BEAKER) (test code = 652) CALCIUM (BEAKER) 9.7 mg/dL 8.4-10.2 (test code = 697) EGFR (BEAKER) (test 74 mL/min/1.73 ESTIMA NEELA GFR IS code = 1092) sq m NOT ACCURATE CREATININE CLEARANCE IN PREDICTING GLOMERULAR FILTRATION RATE . ESTIMATED GFR I S NOT APPLICABLE FOR DIALYSIS PATIEN TS. Stitcher Hand ID - [id number] 18:18:31 Test Item Value Reference Range Interpretation Comments MAGNESIUM (BEAKER) 2.2 mg/dL 1.6-2.6 Specimen slightly (test code = 627) hemolyzed Stitcher Hand ID - DBBASIC METABOLIC [id number] 12:31:59 Test Item Value Reference Range Interpretation Comments SODIUM (BEAKER) 134 meq/L 136-145 L (test code = 381) POTASSIUM (BEAKER) 2.8 meq/L 3.5-5.1 L (test code = 379) CHLORIDE (BEAKER) 86 meq/L 98-107 L (test code = 382) CO2 (BEAKER) (test 35 meq/L 22-29 H code = 355) BLOOD UREA NITROGEN 18 mg/dL 7-21 (BEAKER) (test code = 354) CREATININE (BEAKER) 1.02 mg/dL 0.57-1.25 (test code = 358) GLUCOSE RANDOM 156 mg/dL 70-105 H (BEAKER) (test code = 652) CALCIUM (BEAKER) 9.5 mg/dL 8.4-10.2 (test code = 697) EGFR (BEAKER) (test 77 mL/min/1.73 ESTIMA NEELA GFR IS code = 1092) sq m NOT ACCURATE CREATININE CLEARANCE IN PREDICTING GLOMERULAR FILTRATION RATE . ESTIMATED GFR I S NOT APPLICABLE FOR DIALYSIS PATIEN TS. Stitcher Hand ID - [id number] 12:31:59 Test Item Value Reference Range Interpretation Comments MAGNESIUM (BEAKER) (test code = 1.9 mg/dL 1.6-2.6 627) Stitcher Hand ID - ADMINRAD, CHEST, 1 VIEW, NON [id number] 09:39:00Reason for exam:->pulmonary edemaShould this be performed at the bedside?->Yes [facility] : 1970 Sex: MFINAL REPORT TECHNIQUE: One view of the chest. INDICATION: 51-year-old man with pulmonary edema. COMPARISON: Chest radiograph 07/17/2021. FINDINGS: LINES/TUBES/DEVICES: Unchanged. LUNGS: Lungs are well inflated. No consolidation or pulmonary edema. PLEURA: No pneumothorax or significant pleural effusion. HEART AND MEDIASTINUM: Cardiomediastinal silhouette is unchanged. BONES AND SOFT TISSUES: Unremarkable. IMPRESSION:No evidence of pulmonary edema. Signed: Donaldo Carty MDReport Verified Date/Time: 07/19/2021 09:39:01 Reading Location: [facility] C013Y CT Body Reading Room HEPATIC FUNCTION [id number] 03:17:23 Test Item Value Reference Range Interpretation Comments TOTAL PROTEIN (BEAKER) (test code = 7.3 gm/dL 6.0-8.3 770) ALBUMIN (BEAKER) (test code = 1145) 4.0 g/dL 3.5-5.0 BILIRUBIN TOTAL (BEAKER) (test code 1.8 mg/dL 0.2-1.2 H = 377) BILIRUBIN DIRECT (BEAKER) (test 0.9 mg/dL 0.1-0.5 H code = 706) ALKALINE PHOSPHATASE (BEAKER) (test 158 U/L 40-150 H code = 346) AST (SGOT) (BEAKER) (test code = 24 U/L 5-34 353) ALT (SGPT) (BEAKER) (test code = 91 U/L 6-55 H 347) Stitcher Hand ID - DBOperator ID - DBBASIC METABOLIC [id number] 03:17:22 Test Item Value Reference Range Interpretation Comments SODIUM (BEAKER) 131 meq/L 136-145 L (test code = 381) POTASSIUM (BEAKER) 3.1 meq/L 3.5-5.1 L (test code = 379) CHLORIDE (BEAKER) 88 meq/L 98-107 L (test code = 382) CO2 (BEAKER) (test 28 meq/L 22-29 code = 355) BLOOD UREA NITROGEN 17 mg/dL 7-21 (BEAKER) (test code = 354) CREATININE (BEAKER) 1.01 mg/dL 0.57-1.25 (test code = 358) GLUCOSE RANDOM 130 mg/dL 70-105 H (BEAKER) (test code = 652) CALCIUM (BEAKER) 9.5 mg/dL 8.4-10.2 (test code = 697) EGFR (BEAKER) (test 78 mL/min/1.73 ESTIMA NEELA GFR IS code = 1092) sq m NOT ACCURATE CREATININE CLEARANCE IN PREDICTING GLOMERULAR FILTRATION RATE . ESTIMATED GFR I S NOT APPLICABLE FOR DIALYSIS PATIEN TS. Stitcher Hand ID - DBOperator ID - [id number] 03:17:21 Test Item Value Reference Range Interpretation Comments MAGNESIUM (BEAKER) (test code = 2.1 mg/dL 1.6-2.6 627) Stitcher Hand ID - DBB-TYPE NATRIURETIC FACTOR (BNP)2021-07-19 02:59:54 Test Item Value Reference Range Interpretation Comments B-TYPE NATRIURETIC PEPTIDE (BEAKER) 953 pg/mL 0-100 H (test code = 700) Stitcher Hand ID - [id number] 02:54:54 Test Item Value Reference Range Interpretation Comments PHOSPHORUS (BEAKER) (test code = 3.1 mg/dL 2.3-4.7 604) Stitcher Hand ID - DBLACTIC ACID, [id number] 02:49:11 Test Item Value Reference Range Interpretation Comments LACTATE BLOOD VENOUS 1.39 mmol/L 0.50-2.20 Specime n slightly (2) (BEAKER) (test hemolyzed code = 2932) Stitcher Hand ID - DBCBC (HEMOGRAM ONLY)2021-07-19 02:46:40 Test Item Value Reference Range Interpretation Comments WHITE BLOOD CELL COUNT (BEAKER) 8.7 K/ L 3.5-10.5 (test code = 775) RED BLOOD CELL COUNT (BEAKER) 3.30 M/ L 4.63-6.08 L (test code = 761) HEMOGLOBIN (BEAKER) (test code = 10.1 GM/DL 13.7-17.5 L 410) HEMATOCRIT (BEAKER) (test code = 32.3 % 40.1-51.0 L 411) MEAN CORPUSCULAR VOLUME (BEAKER) 97.9 fL 79.0-92.2 H (test code = 753) MEAN CORPUSCULAR HEMOGLOBIN 30.6 pg 25.7-32.2 (BEAKER) (test code = 751) MEAN CORPUSCULAR HEMOGLOBIN CONC 31.3 GM/DL 32.3-36.5 L (BEAKER) (test code = 752) RED CELL DISTRIBUTION WIDTH 22.5 % 11.6-14.4 H (BEAKER) (test code = 412) PLATELET COUNT (BEAKER) (test 277 K/CU MM 150-450 code = 756) MEAN PLATELET VOLUME (BEAKER) 8.9 fL 9.4-12.4 L (test code = 754) NUCLEATED RED BLOOD CELLS 0 /100 WBC 0-0 (BEAKER) (test code = 413) OXYGEN SATURATION, [id number] 02:38:48 Test Item Value Reference Range Interpretation Comments O2 SATURATION (MEASURED) (BEAKER) 76.9 % (test code = 1455) [id number] 13:30:24 Test Item Value Reference Range Interpretation Comments MAGNESIUM (BEAKER) 1.6 mg/dL 1.6-2.6 Specimen slightly (test code = 627) hemolyzed Stitcher Hand ID - PIAYA LBASIC METABOLIC [id number] 13:30:24 Test Item Value Reference Range Interpretation Comments SODIUM (BEAKER) 132 meq/L 136-145 L (test code = 381) POTASSIUM (BEAKER) 3.5 meq/L 3.5-5.1 Specimen slightly (test code = 379) hemolyzed CHLORIDE (BEAKER) 93 meq/L 98-107 L (test code = 382) CO2 (BEAKER) (test 29 meq/L 22-29 code = 355) BLOOD UREA NITROGEN 17 mg/dL 7-21 (BEAKER) (test code = 354) CREATININE (BEAKER) 0.96 mg/dL 0.57-1.25 Specimen slightly (test code = 358) hemolyzed GLUCOSE RANDOM 153 mg/dL 70-105 H (BEAKER) (test code = 652) CALCIUM (BEAKER) 8.7 mg/dL 8.4-10.2 (test code = 697) EGFR (BEAKER) (test 83 mL/min/1.73 ESTIMA NEELA GFR IS code = 1092) sq m NOT ACCURATE CREATININE CLEARANCE IN PREDICTING GLOMERULAR FILTRATION RATE . ESTIMATED GFR I S NOT APPLICABLE FOR DIALYSIS PATIEN TS. Stitcher Hand ID - PIAYA SUHASYGEN SATURATION, [id number] 13:03:40 Test Item Value Reference Range Interpretation Comments O2 SATURATION (MEASURED) (BEAKER) 52.3 % (test code = 1455) OXYGEN SATURATION, [id number] 06:00:34 Test Item Value Reference Range Interpretation Comments O2 SATURATION (MEASURED) (BEAKER) 40.7 % (test code = 1455) (CELLAVISION MANUAL DIFF)2021-07-18 04:40:34 Test Item Value Reference Range Interpretation Comments NEUTROPHILS - REL 77 % (CELLAVISION)(BEAKER) (test code = 2816) LYMPHOCYTES - REL 16 % (CELLAVISION)(BEAKER) (test code = 2817) MONOCYTES - REL 7 % (CELLAVISION)(BEAKER) (test code = 2818) NEUTROPHILS - ABS 5.93 K/ul 1.78-5.38 H (CELLAVISION)(BEAKER) (test code = 2830) LYMPHOCYTES - ABS 1.23 K/ul 1.32-3.57 L (CELLAVISION)(BEAKER) (test code = 2831) MONOCYTES - ABS 0.54 K/uL 0.30-0.82 (CELLAVISION)(BEAKER) (test code = 2832) TOTAL COUNTED (BEAKER) (test code 100 = 1351) MANUAL NRBC PER 100 CELLS (BEAKER) 1 /100 WBC 0-0 H (test code = 1353) WBC MORPHOLOGY (BEAKER) (test code Normal = 487) PLT MORPHOLOGY (BEAKER) (test code Normal = 486) POLYCHROMATOPHILLIC RBCS(BEAKER) 3+ many (test code = 478) ANISOCYTOSIS (BEAKER) (test code = 1+ few 961) MICROCYTES (BEAKER) (test code = 1+ few 965) POIKILOCYTES (BEAKER) (test code = 1+ few 966) SPHEROCYTES (BEAKER) (test code = 1+ few 768) OVALOCYTES (BEAKER) (test code = 1+ few 477) ARTIFACT (CELLAVISION)(BEAKER) Present (test code = 3432) PLATELET CONCENTRATION Adequate (CELLAVISION)(BEAKER) (test code = 3432) Stitcher Hand ID - Mikey comments: Slide comments:CBC W/PLT COUNT & AUTO [id number] 04:40:33 Test Item Value Reference Range Interpretation Comments WHITE BLOOD CELL COUNT (BEAKER) 7.7 K/ L 3.5-10.5 (test code = 775) RED BLOOD CELL COUNT (BEAKER) 3.54 M/ L 4.63-6.08 L (test code = 761) HEMOGLOBIN (BEAKER) (test code = 10.7 GM/DL 13.7-17.5 L 410) HEMATOCRIT (BEAKER) (test code = 34.9 % 40.1-51.0 L 411) MEAN CORPUSCULAR VOLUME (BEAKER) 98.6 fL 79.0-92.2 H (test code = 753) MEAN CORPUSCULAR HEMOGLOBIN 30.2 pg 25.7-32.2 (BEAKER) (test code = 751) MEAN CORPUSCULAR HEMOGLOBIN CONC 30.7 GM/DL 32.3-36.5 L (BEAKER) (test code = 752) RED CELL DISTRIBUTION WIDTH 22.5 % 11.6-14.4 H (BEAKER) (test code = 412) PLATELET COUNT (BEAKER) (test 319 K/CU MM 150-450 code = 756) MEAN PLATELET VOLUME (BEAKER) 9.5 fL 9.4-12.4 (test code = 754) NUCLEATED RED BLOOD CELLS 0 /100 WBC 0-0 (BEAKER) (test code = 413) HEPATIC FUNCTION [id number] 04:29:48 Test Item Value Reference Range Interpretation Comments TOTAL PROTEIN (BEAKER) (test code = 6.8 gm/dL 6.0-8.3 770) ALBUMIN (BEAKER) (test code = 1145) 3.8 g/dL 3.5-5.0 BILIRUBIN TOTAL (BEAKER) (test code 1.5 mg/dL 0.2-1.2 H = 377) BILIRUBIN DIRECT (BEAKER) (test 0.8 mg/dL 0.1-0.5 H code = 706) ALKALINE PHOSPHATASE (BEAKER) (test 150 U/L 40-150 code = 346) AST (SGOT) (BEAKER) (test code = 26 U/L 5-34 353) ALT (SGPT) (BEAKER) (test code = 116 U/L 6-55 H 347) Stitcher Hand ID - ISREAL [id number] 04:29:47 Test Item Value Reference Range Interpretation Comments MAGNESIUM (BEAKER) (test code = 1.7 mg/dL 1.6-2.6 627) Stitcher Hand ID - ISREAL [id number] 04:29:47 Test Item Value Reference Range Interpretation Comments PHOSPHORUS (BEAKER) (test code = 3.0 mg/dL 2.3-4.7 604) Stitcher Hand ID - ISREAL GBASIC METABOLIC [id number] 04:29:46 Test Item Value Reference Range Interpretation Comments SODIUM (BEAKER) 135 meq/L 136-145 L (test code = 381) POTASSIUM (BEAKER) 3.9 meq/L 3.5-5.1 (test code = 379) CHLORIDE (BEAKER) 92 meq/L 98-107 L (test code = 382) CO2 (BEAKER) (test 32 meq/L 22-29 H code = 355) BLOOD UREA NITROGEN 16 mg/dL 7-21 (BEAKER) (test code = 354) CREATININE (BEAKER) 1.28 mg/dL 0.57-1.25 H (test code = 358) GLUCOSE RANDOM 113 mg/dL 70-105 H (BEAKER) (test code = 652) CALCIUM (BEAKER) 9.4 mg/dL 8.4-10.2 (test code = 697) EGFR (BEAKER) (test 59 mL/min/1.73 ESTIMA NEELA GFR IS code = 1092) sq m NOT ACCURATE CREATININE CLEARANCE IN PREDICTING GLOMERULAR FILTRATION RATE . ESTIMATED GFR I S NOT APPLICABLE FOR DIALYSIS PATIEN TS. Stitcher Hand ID - ISREAL GB-TYPE NATRIURETIC FACTOR (BNP)2021-07-18 04:29:04 Test Item Value Reference Range Interpretation Comments B-TYPE NATRIURETIC PEPTIDE 1067 pg/mL 0-100 H (BEAKER) (test code = 700) Stitcher Hand ID - ISREAL GLACTIC ACID, [id number] 04:19:01 Test Item Value Reference Range Interpretation Comments LACTATE BLOOD VENOUS (2) (BEAKER) 1.17 mmol/L 0.50-2.20 (test code = 2872) Stitcher Hand ID - ISRELA GOXYGEN SATURATION, [id number] 04:10:37 Test Item Value Reference Range Interpretation Comments O2 SATURATION (MEASURED) (BEAKER) 36.3 % (test code = 1455) [id number] 20:31:16 Test Item Value Reference Range Interpretation Comments MAGNESIUM (BEAKER) (test code = 1.7 mg/dL 1.6-2.6 627) Stitcher Hand ID - [id number] 20:31:16 Test Item Value Reference Range Interpretation Comments PHOSPHORUS (BEAKER) (test code = 3.6 mg/dL 2.3-4.7 604) Stitcher Hand ID - DBBASIC METABOLIC [id number] 20:31:15 Test Item Value Reference Range Interpretation Comments SODIUM (BEAKER) 135 meq/L 136-145 L (test code = 381) POTASSIUM (BEAKER) 3.3 meq/L 3.5-5.1 L (test code = 379) CHLORIDE (BEAKER) 88 meq/L 98-107 L (test code = 382) CO2 (BEAKER) (test 35 meq/L 22-29 H code = 355) BLOOD UREA NITROGEN 15 mg/dL 7-21 (BEAKER) (test code = 354) CREATININE (BEAKER) 1.19 mg/dL 0.57-1.25 (test code = 358) GLUCOSE RANDOM 148 mg/dL 70-105 H (BEAKER) (test code = 652) CALCIUM (BEAKER) 9.6 mg/dL 8.4-10.2 (test code = 697) EGFR (BEAKER) (test 65 mL/min/1.73 ESTIMA NEELA GFR IS code = 1092) sq m NOT ACCURATE CREATININE CLEARANCE IN PREDICTING GLOMERULAR FILTRATION RATE . ESTIMATED GFR I S NOT APPLICABLE FOR DIALYSIS PATIEN TS. Stitcher Hand ID - DBBASIC METABOLIC [id number] 12:52:44 Test Item Value Reference Range Interpretation Comments SODIUM (BEAKER) 134 meq/L 136-145 L (test code = 381) POTASSIUM (BEAKER) 2.5 meq/L 3.5-5.1 LL (test code = 379) CHLORIDE (BEAKER) 87 meq/L 98-107 L (test code = 382) CO2 (BEAKER) (test 37 meq/L 22-29 H code = 355) BLOOD UREA NITROGEN 15 mg/dL 7-21 (BEAKER) (test code = 354) CREATININE (BEAKER) 0.99 mg/dL 0.57-1.25 (test code = 358) GLUCOSE RANDOM 126 mg/dL 70-105 H (BEAKER) (test code = 652) CALCIUM (BEAKER) 9.9 mg/dL 8.4-10.2 (test code = 697) EGFR (BEAKER) (test 80 mL/min/1.73 ESTIMA NEELA GFR IS code = 1092) sq m NOT ACCURATE CREATININE CLEARANCE IN PREDICTING GLOMERULAR FILTRATION RATE . ESTIMATED GFR I S NOT APPLICABLE FOR DIALYSIS PATIEN TS. Stitcher Hand ID - ISREAL [id number] 12:24:00 Test Item Value Reference Range Interpretation Comments MAGNESIUM (BEAKER) (test code = 1.8 mg/dL 1.6-2.6 627) Stitcher Hand ID - ISREAL GRAD, CHEST, 1 VIEW, NON [id number] 10:42:00Reason for exam:->swan miky placementShould this be performed at the bedside?->Yes [facility]ame[facility] DA[facility] WEST : 1970 Sex: MFINAL REPORT TECHNIQUE: One view of the chest. INDICATION: 51-year-old man with [place]-Miky catheter placement. COMPARISON: Chest radiograph 07/08/2021. FINDINGS: LINES/TUBES/DEVICES: Right internal jugular pulmonary arterial catheter terminates over the expected region of the interlobar segment of the right pulmonary artery. The tip of an additional right internal jugular central venouscatheter is obscured by the pulmonary arterial catheter. Unchanged implanted cardiac device. LUNGS: Lungs are well inflated. No consolidation or pulmonary edema. Mild interstitial prominence in both lungs. PLEURA: Questionable small right pleural effusion. No pneumothorax. HEART AND MEDIASTINUM: Cardiomediastinal silhouette is within normal limits. BONES AND SOFT TISSUES: Unremarkable. IMPRESSION:Lines/tubes/devices as above. Mild interstitial prominence in both lungs, for which interstitial edema cannot be excluded. Pneumonia is less likely. Signed: Donaldo Carty MDReport Verified Date/Time: 07/17/2021 10:42:15 [id number] 10:29:59 Test Item Value Reference Range Interpretation Comments CORTISOL, TOTAL (BEAKER) (test code 8.9 ug/dL 3.7-19.4 = 2755) Stitcher Hand ID - ISREAL GOXYGEN SATURATION, [id number] 09:29:17 Test Item Value Reference Range Interpretation Comments O2 SATURATION (MEASURED) (BEAKER) 59.9 % (test code = 1455) B-TYPE NATRIURETIC FACTOR (BNP)2021-07-17 02:58:22 Test Item Value Reference Range Interpretation Comments B-TYPE NATRIURETIC PEPTIDE 1028 pg/mL 0-100 H (BEAKER) (test code = 700) Stitcher Hand ID - ISREAL [id number] 02:48:46 Test Item Value Reference Range Interpretation Comments PHOSPHORUS (BEAKER) (test code = 3.6 mg/dL 2.3-4.7 604) Stitcher Hand ID - ISREAL GHEPATIC FUNCTION [id number] 02:48:46 Test Item Value Reference Range Interpretation Comments TOTAL PROTEIN (BEAKER) (test code = 7.5 gm/dL 6.0-8.3 770) ALBUMIN (BEAKER) (test code = 1145) 4.1 g/dL 3.5-5.0 BILIRUBIN TOTAL (BEAKER) (test code 1.6 mg/dL 0.2-1.2 H = 377) BILIRUBIN DIRECT (BEAKER) (test 0.8 mg/dL 0.1-0.5 H code = 706) ALKALINE PHOSPHATASE (BEAKER) (test 148 U/L 40-150 code = 346) AST (SGOT) (BEAKER) (test code = 28 U/L 5-34 353) ALT (SGPT) (BEAKER) (test code = 169 U/L 6-55 H 347) Stitcher Hand JESSICA BACH GBASIC METABOLIC [id number] 02:48:45 Test Item Value Reference Range Interpretation Comments SODIUM (BEAKER) 132 meq/L 136-145 L (test code = 381) POTASSIUM (BEAKER) 3.3 meq/L 3.5-5.1 L (test code = 379) CHLORIDE (BEAKER) 87 meq/L 98-107 L (test code = 382) CO2 (BEAKER) (test 31 meq/L 22-29 H code = 355) BLOOD UREA NITROGEN 18 mg/dL 7-21 (BEAKER) (test code = 354) CREATININE (BEAKER) 1.12 mg/dL 0.57-1.25 (test code = 358) GLUCOSE RANDOM 100 mg/dL 70-105 (BEAKER) (test code = 652) CALCIUM (BEAKER) 9.8 mg/dL 8.4-10.2 (test code = 697) EGFR (BEAKER) (test 69 mL/min/1.73 ESTIMA NEELA GFR IS code = 1092) sq m NOT ACCURATE CREATININE CLEARANCE IN PREDICTING GLOMERULAR FILTRATION RATE . ESTIMATED GFR I S NOT APPLICABLE FOR DIALYSIS PATIEN TS. Stitcher Hand JESSICA BACH [id number] 02:48:45 Test Item Value Reference Range Interpretation Comments MAGNESIUM (BEAKER) (test code = 2.2 mg/dL 1.6-2.6 627) Stitcher Hand JESSICA BACH GLACTIC ACID, [id number] 02:48:02 Test Item Value Reference Range Interpretation Comments LACTATE BLOOD VENOUS 2.19 mmol/L 0.50-2.20 Specime n slightly (2) (BEAKER) (test hemolyzed code = 8928) Stitcher Hand JESSICA BACH GCBC W/PLT COUNT & AUTO [id number] 02:25:58 Test Item Value Reference Range Interpretation Comments WHITE BLOOD CELL COUNT (BEAKER) 8.9 K/ L 3.5-10.5 (test code = 775) RED BLOOD CELL COUNT (BEAKER) 3.56 M/ L 4.63-6.08 L (test code = 761) HEMOGLOBIN (BEAKER) (test code = 10.7 GM/DL 13.7-17.5 L 410) HEMATOCRIT (BEAKER) (test code = 34.7 % 40.1-51.0 L 411) MEAN CORPUSCULAR VOLUME (BEAKER) 97.5 fL 79.0-92.2 H (test code = 753) MEAN CORPUSCULAR HEMOGLOBIN 30.1 pg 25.7-32.2 (BEAKER) (test code = 751) MEAN CORPUSCULAR HEMOGLOBIN CONC 30.8 GM/DL 32.3-36.5 L (BEAKER) (test code = 752) RED CELL DISTRIBUTION WIDTH 22.5 % 11.6-14.4 H (BEAKER) (test code = 412) PLATELET COUNT (BEAKER) (test 304 K/CU MM 150-450 code = 756) MEAN PLATELET VOLUME (BEAKER) 9.9 fL 9.4-12.4 (test code = 754) NUCLEATED RED BLOOD CELLS 0 /100 WBC 0-0 (BEAKER) (test code = 413) NEUTROPHILS RELATIVE PERCENT 80 % (BEAKER) (test code = 429) LYMPHOCYTES RELATIVE PERCENT 10 % (BEAKER) (test code = 430) MONOCYTES RELATIVE PERCENT 7 % (BEAKER) (test code = 431) EOSINOPHILS RELATIVE PERCENT 2 % (BEAKER) (test code = 432) BASOPHILS RELATIVE PERCENT 0 % (BEAKER) (test code = 437) NEUTROPHILS ABSOLUTE COUNT 7.11 K/ L 1.78-5.38 H (BEAKER) (test code = 670) LYMPHOCYTES ABSOLUTE COUNT 0.91 K/ L 1.32-3.57 L (BEAKER) (test code = 414) MONOCYTES ABSOLUTE COUNT (BEAKER) 0.64 K/ L 0.30-0.82 (test code = 415) EOSINOPHILS ABSOLUTE COUNT 0.13 K/ L 0.04-0.54 (BEAKER) (test code = 416) BASOPHILS ABSOLUTE COUNT (BEAKER) 0.02 K/ L 0.01-0.08 (test code = 417) IMMATURE GRANULOCYTES-RELATIVE 1 % 0-1 PERCENT (BEAKER) (test code = 2801) OXYGEN SATURATION, [id number] 02:13:17 Test Item Value Reference Range Interpretation Comments O2 SATURATION (MEASURED) (BEAKER) 52.0 % (test code = 1455) BASIC METABOLIC [id number] 21:36:44 Test Item Value Reference Range Interpretation Comments SODIUM (BEAKER) 132 meq/L 136-145 L (test code = 381) POTASSIUM (BEAKER) 2.8 meq/L 3.5-5.1 L (test code = 379) CHLORIDE (BEAKER) 89 meq/L 98-107 L (test code = 382) CO2 (BEAKER) (test 30 meq/L 22-29 H code = 355) BLOOD UREA NITROGEN 19 mg/dL 7-21 (BEAKER) (test code = 354) CREATININE (BEAKER) 1.12 mg/dL 0.57-1.25 (test code = 358) GLUCOSE RANDOM 117 mg/dL 70-105 H (BEAKER) (test code = 652) CALCIUM (BEAKER) 9.3 mg/dL 8.4-10.2 (test code = 697) EGFR (BEAKER) (test 69 mL/min/1.73 ESTIMA NEELA GFR IS code = 1092) sq m NOT ACCURATE CREATININE CLEARANCE IN PREDICTING GLOMERULAR FILTRATION RATE . ESTIMATED GFR I S NOT APPLICABLE FOR DIALYSIS PATIEN TS. Stitcher Hand ID - [id number] 21:36:44 Test Item Value Reference Range Interpretation Comments MAGNESIUM (BEAKER) (test code = 1.8 mg/dL 1.6-2.6 627) Stitcher Hand ID - [id number] 17:39:39 Test Item Value Reference Range Interpretation Comments PHOSPHORUS (BEAKER) (test code = 3.5 mg/dL 2.3-4.7 604) Stitcher Hand ID - BSBASIC METABOLIC [id number] 13:11:53 Test Item Value Reference Range Interpretation Comments SODIUM (BEAKER) 128 meq/L 136-145 L (test code = 381) POTASSIUM (BEAKER) 4.0 meq/L 3.5-5.1 (test code = 379) CHLORIDE (BEAKER) 89 meq/L 98-107 L (test code = 382) CO2 (BEAKER) (test 32 meq/L 22-29 H code = 355) BLOOD UREA NITROGEN 17 mg/dL 7-21 (BEAKER) (test code = 354) CREATININE (BEAKER) 1.04 mg/dL 0.57-1.25 (test code = 358) GLUCOSE RANDOM 179 mg/dL 70-105 H (BEAKER) (test code = 652) CALCIUM (BEAKER) 9.2 mg/dL 8.4-10.2 (test code = 697) EGFR (BEAKER) (test 76 mL/min/1.73 ESTIMA NEELA GFR IS code = 1092) sq m NOT ACCURATE CREATININE CLEARANCE IN PREDICTING GLOMERULAR FILTRATION RATE . ESTIMATED GFR I S NOT APPLICABLE FOR DIALYSIS PATIEN TS. Stitcher Hand ID - SOCO [id number] 12:56:55 Test Item Value Reference Range Interpretation Comments MAGNESIUM (BEAKER) (test code = 2.0 mg/dL 1.6-2.6 627) Stitcher Hand ID - SOCO LBASIC METABOLIC [id number] 05:52:48 Test Item Value Reference Range Interpretation Comments SODIUM (BEAKER) 130 meq/L 136-145 L (test code = 381) POTASSIUM (BEAKER) 4.0 meq/L 3.5-5.1 (test code = 379) CHLORIDE (BEAKER) 91 meq/L 98-107 L (test code = 382) CO2 (BEAKER) (test 29 meq/L 22-29 code = 355) BLOOD UREA NITROGEN 18 mg/dL 7-21 (BEAKER) (test code = 354) CREATININE (BEAKER) 1.08 mg/dL 0.57-1.25 (test code = 358) GLUCOSE RANDOM 134 mg/dL 70-105 H (BEAKER) (test code = 652) CALCIUM (BEAKER) 9.2 mg/dL 8.4-10.2 (test code = 697) EGFR (BEAKER) (test 72 mL/min/1.73 ESTIMA NEELA GFR IS code = 1092) sq m NOT ACCURATE CREATININE CLEARANCE IN PREDICTING GLOMERULAR FILTRATION RATE . ESTIMATED GFR I S NOT APPLICABLE FOR DIALYSIS PATIEN TS. Stitcher Hand ID - SOCO LHEPATIC FUNCTION [id number] 05:17:16 Test Item Value Reference Range Interpretation Comments TOTAL PROTEIN (BEAKER) (test code = 7.2 gm/dL 6.0-8.3 770) ALBUMIN (BEAKER) (test code = 1145) 3.9 g/dL 3.5-5.0 BILIRUBIN TOTAL (BEAKER) (test code 1.4 mg/dL 0.2-1.2 H = 377) BILIRUBIN DIRECT (BEAKER) (test 0.7 mg/dL 0.1-0.5 H code = 706) ALKALINE PHOSPHATASE (BEAKER) (test 146 U/L 40-150 code = 346) AST (SGOT) (BEAKER) (test code = 29 U/L 5-34 353) ALT (SGPT) (BEAKER) (test code = 201 U/L 6-55 H 347) Stitcher Hand ID - ISREAL GOperator ID - SOCO [id number] 04:54:39 Test Item Value Reference Range Interpretation Comments MAGNESIUM (BEAKER) (test code = 4.0 mg/dL 1.6-2.6 H 627) Stitcher Hand ID - ISREAL [id number] 04:54:39 Test Item Value Reference Range Interpretation Comments PHOSPHORUS (BEAKER) (test code = 2.9 mg/dL 2.3-4.7 604) Stitcher Hand ID - ISREAL GB-TYPE NATRIURETIC FACTOR (BNP)2021-07-16 04:50:37 Test Item Value Reference Range Interpretation Comments B-TYPE NATRIURETIC PEPTIDE (BEAKER) 883 pg/mL 0-100 H (test code = 700) Stitcher Hand ID - ISREAL GLACTIC ACID, [id number] 04:40:25 Test Item Value Reference Range Interpretation Comments LACTATE BLOOD VENOUS (2) (BEAKER) 2.13 mmol/L 0.50-2.20 (test code = 2872) Stitcher Hand ID - ISREAL GCBC W/PLT COUNT & AUTO [id number] 04:29:11 Test Item Value Reference Range Interpretation Comments WHITE BLOOD CELL COUNT (BEAKER) 8.0 K/ L 3.5-10.5 (test code = 775) RED BLOOD CELL COUNT (BEAKER) 3.41 M/ L 4.63-6.08 L (test code = 761) HEMOGLOBIN (BEAKER) (test code = 10.1 GM/DL 13.7-17.5 L 410) HEMATOCRIT (BEAKER) (test code = 33.6 % 40.1-51.0 L 411) MEAN CORPUSCULAR VOLUME (BEAKER) 98.5 fL 79.0-92.2 H (test code = 753) MEAN CORPUSCULAR HEMOGLOBIN 29.6 pg 25.7-32.2 (BEAKER) (test code = 751) MEAN CORPUSCULAR HEMOGLOBIN CONC 30.1 GM/DL 32.3-36.5 L (BEAKER) (test code = 752) RED CELL DISTRIBUTION WIDTH 22.9 % 11.6-14.4 H (BEAKER) (test code = 412) PLATELET COUNT (BEAKER) (test 312 K/CU MM 150-450 code = 756) MEAN PLATELET VOLUME (BEAKER) 9.7 fL 9.4-12.4 (test code = 754) NUCLEATED RED BLOOD CELLS 0 /100 WBC 0-0 (BEAKER) (test code = 413) NEUTROPHILS RELATIVE PERCENT 78 % (BEAKER) (test code = 429) LYMPHOCYTES RELATIVE PERCENT 13 % (BEAKER) (test code = 430) MONOCYTES RELATIVE PERCENT 7 % (BEAKER) (test code = 431) EOSINOPHILS RELATIVE PERCENT 1 % (BEAKER) (test code = 432) BASOPHILS RELATIVE PERCENT 0 % (BEAKER) (test code = 437) NEUTROPHILS ABSOLUTE COUNT 6.22 K/ L 1.78-5.38 H (BEAKER) (test code = 670) LYMPHOCYTES ABSOLUTE COUNT 1.04 K/ L 1.32-3.57 L (BEAKER) (test code = 414) MONOCYTES ABSOLUTE COUNT (BEAKER) 0.56 K/ L 0.30-0.82 (test code = 415) EOSINOPHILS ABSOLUTE COUNT 0.11 K/ L 0.04-0.54 (BEAKER) (test code = 416) BASOPHILS ABSOLUTE COUNT (BEAKER) 0.02 K/ L 0.01-0.08 (test code = 417) IMMATURE GRANULOCYTES-RELATIVE 1 % 0-1 PERCENT (BEAKER) (test code = 2801) OXYGEN SATURATION, [id number] 04:22:39 Test Item Value Reference Range Interpretation Comments O2 SATURATION (MEASURED) (BEAKER) 53.8 % (test code = 1455) SARS-COV2/RT-PCR ([facility])2021-07-16 02:41:06 Test Item Value Reference Range Interpretation Comments SARS-COV2/RT-PCR (test code = Negative Negative [id number]) Negative result for this test determines that SARS-CoV-2 RNA was not present in the specimen above the Limit of Detection (LOD). However, Negative results do not preclude SARS-CoV-2 infection and should not be used as the sole basis for treatment or patient management decisions. Negative results must be combined with clinical observations, patient history, and epidemiological information. A false negative result may occur if a specimen is improperly collected, transported, or handled. A false negative result should be considered if patient's recent exposures or clinical presentation indicate that COVID-19 (SARS-CoV-2) is likely and diagnostic tests for other causes of illness are negative. Re-testing should be considered in cases of suspected false negatives.The limit of detection for this assayis 100 copies/mL.This SARS-CoV-2 test is a real-time RT_PCR test intended for the qualitative detection of nucleic acid from SARS-CoV-2 in a nasopharyngeal swab specimen collected from individuals suspected of COVID-19 by their healthcare provider.This test has not been Food and Drug Administration (FDA) cleared or approved. This is a modified version of an approved Emergency Use Authorization (EUA) and is in the process of review by the FDA. Once authorized by the FDA, the issued EUA will be effecti ve until the declaration that circumstances exist justifying the authorization of the emergency use of in vitro diagnostic tests for detection and/or diagnosis of COVID-19 is terminated under Section 564(b)(2) of the Act or the EUA is revoked under Section 564(g) of the Act.Testing was performed usingthe [facility] SARS-CoV-2 assay.Fact Sheet for Healthcare Providers:https://www.molecular.[facility]man/eduardo/RT SARS-CoV-2 HCP Fact Sheet 51- 127743.pdfFact Sheet for Healthcare Patients:https://www.molecular.[facility]/eduardo/RT SARS-CoV-2 Patient Fact Sheet EN [id number].pdfBASI METABOLIC [id number] 23:01:23 Test Item Value Reference Range Interpretation Comments SODIUM (BEAKER) 130 meq/L 136-145 L (test code = 381) POTASSIUM (BEAKER) 4.0 meq/L 3.5-5.1 (test code = 379) CHLORIDE (BEAKER) 91 meq/L 98-107 L (test code = 382) CO2 (BEAKER) (test 31 meq/L 22-29 H code = 355) BLOOD UREA NITROGEN 18 mg/dL 7-21 (BEAKER) (test code = 354) CREATININE (BEAKER) 1.09 mg/dL 0.57-1.25 (test code = 358) GLUCOSE RANDOM 88 mg/dL 70-105 (BEAKER) (test code = 652) CALCIUM (BEAKER) 9.0 mg/dL 8.4-10.2 (test code = 697) EGFR (BEAKER) (test 72 mL/min/1.73 ESTIMA NEELA GFR IS code = 1092) sq m NOT ACCURATE CREATININE CLEARANCE IN PREDICTING GLOMERULAR FILTRATION RATE . ESTIMATED GFR I S NOT APPLICABLE FOR DIALYSIS PATIEN TS. Stitcher Hand ID - SOCO [id number] 23:01:23 Test Item Value Reference Range Interpretation Comments MAGNESIUM (BEAKER) (test code = 1.9 mg/dL 1.6-2.6 627) Stitcher Hand ID - SOCO LPOCT-GLUCOSE [id number] 20:26:51 Test Item Value Reference Range Interpretation Comments POC-GLUCOSE METER 128 mg/dL 70-110 H : TESTED A T [facility] 6720 (BEAKER) (test code = [place], 1538) [address]: Stitcher Hand/Techni ebenezer ID = [id number] for FARZAD MIRELES, ANDREW [id number] 16:44:33 Test Item Value Reference Range Interpretation Comments POTASSIUM (BEAKER) (test code = 3.5 meq/L 3.5-5.1 379) Stitcher Hand ID - [id number] 16:44:32 Test Item Value Reference Range Interpretation Comments PHOSPHORUS (BEAKER) (test code = 2.8 mg/dL 2.3-4.7 604) Stitcher Hand ID - [id number] 13:32:03 Test Item Value Reference Range Interpretation Comments MAGNESIUM (BEAKER) (test code = 3.0 mg/dL 1.6-2.6 H 627) Stitcher Hand ID - EMMANUEL FBASIC METABOLIC [id number] 13:32:02 Test Item Value Reference Range Interpretation Comments SODIUM (BEAKER) 131 meq/L 136-145 L (test code = 381) POTASSIUM (BEAKER) 3.3 meq/L 3.5-5.1 L (test code = 379) CHLORIDE (BEAKER) 88 meq/L 98-107 L (test code = 382) CO2 (BEAKER) (test 32 meq/L 22-29 H code = 355) BLOOD UREA NITROGEN 19 mg/dL 7-21 (BEAKER) (test code = 354) CREATININE (BEAKER) 1.04 mg/dL 0.57-1.25 (test code = 358) GLUCOSE RANDOM 140 mg/dL 70-105 H (BEAKER) (test code = 652) CALCIUM (BEAKER) 9.0 mg/dL 8.4-10.2 (test code = 697) EGFR (BEAKER) (test 76 mL/min/1.73 ESTIMA NEELA GFR IS code = 1092) sq m NOT ACCURATE CREATININE CLEARANCE IN PREDICTING GLOMERULAR FILTRATION RATE . ESTIMATED GFR I S NOT APPLICABLE FOR DIALYSIS PATIEN TS. Stitcher Hand ID Sal BENITEZ FLACTIC ACID, [id number] 09:32:41 Test Item Value Reference Range Interpretation Comments LACTATE BLOOD VENOUS (2) (BEAKER) 1.02 mmol/L 0.50-2.20 (test code = 2872) Stitcher Hand ID Sal BENITEZ [id number] 06:28:55 Test Item Value Reference Range Interpretation Comments PHOSPHORUS (BEAKER) (test code = 3.6 mg/dL 2.3-4.7 604) Stitcher Hand ID Sal BACH GHEPATIC FUNCTION [id number] 06:28:55 Test Item Value Reference Range Interpretation Comments TOTAL PROTEIN (BEAKER) (test code = 7.0 gm/dL 6.0-8.3 770) ALBUMIN (BEAKER) (test code = 1145) 3.9 g/dL 3.5-5.0 BILIRUBIN TOTAL (BEAKER) (test code 1.1 mg/dL 0.2-1.2 = 377) BILIRUBIN DIRECT (BEAKER) (test 0.7 mg/dL 0.1-0.5 H code = 706) ALKALINE PHOSPHATASE (BEAKER) (test 144 U/L 40-150 code = 346) AST (SGOT) (BEAKER) (test code = 28 U/L 5-34 353) ALT (SGPT) (BEAKER) (test code = 253 U/L 6-55 H 347) Stitcher Hand ID Sal BACH GBASIC METABOLIC [id number] 06:28:54 Test Item Value Reference Range Interpretation Comments SODIUM (BEAKER) 133 meq/L 136-145 L (test code = 381) POTASSIUM (BEAKER) 3.4 meq/L 3.5-5.1 L (test code = 379) CHLORIDE (BEAKER) 92 meq/L 98-107 L (test code = 382) CO2 (BEAKER) (test 29 meq/L 22-29 code = 355) BLOOD UREA NITROGEN 22 mg/dL 7-21 H (BEAKER) (test code = 354) CREATININE (BEAKER) 1.27 mg/dL 0.57-1.25 H (test code = 358) GLUCOSE RANDOM 176 mg/dL 70-105 H (BEAKER) (test code = 652) CALCIUM (BEAKER) 9.2 mg/dL 8.4-10.2 (test code = 697) EGFR (BEAKER) (test 60 mL/min/1.73 ESTIMA NEELA GFR IS code = 1092) sq m NOT ACCURATE CREATININE CLEARANCE IN PREDICTING GLOMERULAR FILTRATION RATE . ESTIMATED GFR I S NOT APPLICABLE FOR DIALYSIS PATIEN TS. Stitcher Hand ID - ISREAL [id number] 06:28:54 Test Item Value Reference Range Interpretation Comments MAGNESIUM (BEAKER) (test code = 1.8 mg/dL 1.6-2.6 627) Stitcher Hand ID - ISREAL GB-TYPE NATRIURETIC FACTOR (BNP)2021-07-15 05:48:05 Test Item Value Reference Range Interpretation Comments B-TYPE NATRIURETIC PEPTIDE 1335 pg/mL 0-100 H (BEAKER) (test code = 700) Stitcher Hand ID - ISREAL GOXYGEN SATURATION, [id number] 05:46:40 Test Item Value Reference Range Interpretation Comments O2 SATURATION (MEASURED) (BEAKER) 59.3 % (test code = 1455) CBC W/PLT COUNT & AUTO [id number] 05:35:47 Test Item Value Reference Range Interpretation Comments WHITE BLOOD CELL COUNT (BEAKER) 7.6 K/ L 3.5-10.5 (test code = 775) RED BLOOD CELL COUNT (BEAKER) 3.34 M/ L 4.63-6.08 L (test code = 761) HEMOGLOBIN (BEAKER) (test code = 10.1 GM/DL 13.7-17.5 L 410) HEMATOCRIT (BEAKER) (test code = 32.4 % 40.1-51.0 L 411) MEAN CORPUSCULAR VOLUME (BEAKER) 97.0 fL 79.0-92.2 H (test code = 753) MEAN CORPUSCULAR HEMOGLOBIN 30.2 pg 25.7-32.2 (BEAKER) (test code = 751) MEAN CORPUSCULAR HEMOGLOBIN CONC 31.2 GM/DL 32.3-36.5 L (BEAKER) (test code = 752) RED CELL DISTRIBUTION WIDTH 23.1 % 11.6-14.4 H (BEAKER) (test code = 412) PLATELET COUNT (BEAKER) (test 250 K/CU MM 150-450 code = 756) MEAN PLATELET VOLUME (BEAKER) 9.6 fL 9.4-12.4 (test code = 754) NUCLEATED RED BLOOD CELLS 0 /100 WBC 0-0 (BEAKER) (test code = 413) NEUTROPHILS RELATIVE PERCENT 81 % (BEAKER) (test code = 429) LYMPHOCYTES RELATIVE PERCENT 13 % (BEAKER) (test code = 430) MONOCYTES RELATIVE PERCENT 5 % (BEAKER) (test code = 431) EOSINOPHILS RELATIVE PERCENT 1 % (BEAKER) (test code = 432) BASOPHILS RELATIVE PERCENT 0 % (BEAKER) (test code = 437) NEUTROPHILS ABSOLUTE COUNT 6.13 K/ L 1.78-5.38 H (BEAKER) (test code = 670) LYMPHOCYTES ABSOLUTE COUNT 0.96 K/ L 1.32-3.57 L (BEAKER) (test code = 414) MONOCYTES ABSOLUTE COUNT (BEAKER) 0.38 K/ L 0.30-0.82 (test code = 415) EOSINOPHILS ABSOLUTE COUNT 0.08 K/ L 0.04-0.54 (BEAKER) (test code = 416) BASOPHILS ABSOLUTE COUNT (BEAKER) 0.02 K/ L 0.01-0.08 (test code = 417) IMMATURE GRANULOCYTES-RELATIVE 0 % 0-1 PERCENT (BEAKER) (test code = 2801) [id number] 00:35:20 Test Item Value Reference Range Interpretation Comments MAGNESIUM (BEAKER) (test code = 3.3 mg/dL 1.6-2.6 H 627) Stitcher Hand ID - PIAYA LBASIC METABOLIC [id number] 00:35:19 Test Item Value Reference Range Interpretation Comments SODIUM (BEAKER) 130 meq/L 136-145 L (test code = 381) POTASSIUM (BEAKER) 3.1 meq/L 3.5-5.1 L (test code = 379) CHLORIDE (BEAKER) 89 meq/L 98-107 L (test code = 382) CO2 (BEAKER) (test 28 meq/L 22-29 code = 355) BLOOD UREA NITROGEN 23 mg/dL 7-21 H (BEAKER) (test code = 354) CREATININE (BEAKER) 1.35 mg/dL 0.57-1.25 H (test code = 358) GLUCOSE RANDOM 188 mg/dL 70-105 H (BEAKER) (test code = 652) CALCIUM (BEAKER) 9.1 mg/dL 8.4-10.2 (test code = 697) EGFR (BEAKER) (test 56 mL/min/1.73 ESTIMA NEELA GFR IS code = 1092) sq m NOT ACCURATE CREATININE CLEARANCE IN PREDICTING GLOMERULAR FILTRATION RATE . ESTIMATED GFR I S NOT APPLICABLE FOR DIALYSIS PATIEN TS. Stitcher Hand ID - PIAYA LLACTIC ACID, [id number] 00:26:40 Test Item Value Reference Range Interpretation Comments LACTATE BLOOD VENOUS (2) (BEAKER) 1.69 mmol/L 0.50-2.20 (test code = 2872) Stitcher Hand ID - PIAYA [id number] 19:14:21 Test Item Value Reference Range Interpretation Comments PHOSPHORUS (BEAKER) 4.6 mg/dL 2.3-4.7 Specimen slightly (test code = 604) hemolyzed Stitcher Hand ID - [id number] 17:18:07 Test Item Value Reference Range Interpretation Comments MAGNESIUM (BEAKER) 2.1 mg/dL 1.6-2.6 Specimen slightly (test code = 627) hemolyzed Stitcher Hand ID - DBBASIC METABOLIC [id number] 17:18:07 Test Item Value Reference Range Interpretation Comments SODIUM (BEAKER) 127 meq/L 136-145 L (test code = 381) POTASSIUM (BEAKER) 3.9 meq/L 3.5-5.1 Specimen slightly (test code = 379) hemolyzed CHLORIDE (BEAKER) 89 meq/L 98-107 L (test code = 382) CO2 (BEAKER) (test 26 meq/L 22-29 code = 355) BLOOD UREA NITROGEN 23 mg/dL 7-21 H (BEAKER) (test code = 354) CREATININE (BEAKER) 1.35 mg/dL 0.57-1.25 H Specimen slightly (test code = 358) hemolyzed GLUCOSE RANDOM 173 mg/dL 70-105 H (BEAKER) (test code = 652) CALCIUM (BEAKER) 9.4 mg/dL 8.4-10.2 (test code = 697) EGFR (BEAKER) (test 56 mL/min/1.73 ESTIMA NEELA GFR IS code = 1092) sq m NOT ACCURATE CREATININE CLEARANCE IN PREDICTING GLOMERULAR FILTRATION RATE . ESTIMATED GFR I S NOT APPLICABLE FOR DIALYSIS PATIEN TS. Stitcher Hand ID - DBBASIC METABOLIC [id number] 14:26:48 Test Item Value Reference Range Interpretation Comments SODIUM (BEAKER) 126 meq/L 136-145 L (test code = 381) POTASSIUM (BEAKER) 4.8 meq/L 3.5-5.1 Specimen slightly (test code = 379) hemolyzed CHLORIDE (BEAKER) 92 meq/L 98-107 L (test code = 382) CO2 (BEAKER) (test 26 meq/L 22-29 code = 355) BLOOD UREA NITROGEN 22 mg/dL 7-21 H (BEAKER) (test code = 354) CREATININE (BEAKER) 1.37 mg/dL 0.57-1.25 H Specimen slightly (test code = 358) hemolyzed GLUCOSE RANDOM 177 mg/dL 70-105 H (BEAKER) (test code = 652) CALCIUM (BEAKER) 9.1 mg/dL 8.4-10.2 (test code = 697) EGFR (BEAKER) (test 55 mL/min/1.73 ESTIMA NEELA GFR IS code = 1092) sq m NOT ACCURATE CREATININE CLEARANCE IN PREDICTING GLOMERULAR FILTRATION RATE . ESTIMATED GFR I S NOT APPLICABLE FOR DIALYSIS PATIEN TS. Stitcher Hand ID - LEANNE CLACTIC ACID, [id number] 14:23:26 Test Item Value Reference Range Interpretation Comments LACTATE BLOOD VENOUS (2) (BEAKER) 2.67 mmol/L 0.50-2.20 H (test code = 2872) Stitcher Hand ID - LEANNE [id number] 09:19:09 Test Item Value Reference Range Interpretation Comments MAGNESIUM (BEAKER) (test code = 2.2 mg/dL 1.6-2.6 627) Stitcher Hand ID - LEANNE CBASIC METABOLIC [id number] 09:19:08 Test Item Value Reference Range Interpretation Comments SODIUM (BEAKER) 128 meq/L 136-145 L (test code = 381) POTASSIUM (BEAKER) 4.0 meq/L 3.5-5.1 (test code = 379) CHLORIDE (BEAKER) 93 meq/L 98-107 L (test code = 382) CO2 (BEAKER) (test 27 meq/L 22-29 code = 355) BLOOD UREA NITROGEN 21 mg/dL 7-21 (BEAKER) (test code = 354) CREATININE (BEAKER) 1.30 mg/dL 0.57-1.25 H (test code = 358) GLUCOSE RANDOM 152 mg/dL 70-105 H (BEAKER) (test code = 652) CALCIUM (BEAKER) 9.1 mg/dL 8.4-10.2 (test code = 697) EGFR (BEAKER) (test 58 mL/min/1.73 ESTIMA NEELA GFR IS code = 1092) sq m NOT ACCURATE CREATININE CLEARANCE IN PREDICTING GLOMERULAR FILTRATION RATE . ESTIMATED GFR I S NOT APPLICABLE FOR DIALYSIS PATIEN TS. Stitcher Hand ID - LEANNE COXYGEN SATURATION, [id number] 08:54:36 Test Item Value Reference Range Interpretation Comments O2 SATURATION (MEASURED) (BEAKER) 52.4 % (test code = 1455) B-TYPE NATRIURETIC FACTOR (BNP)2021-07-14 02:21:06 Test Item Value Reference Range Interpretation Comments B-TYPE NATRIURETIC PEPTIDE 1018 pg/mL 0-100 H (BEAKER) (test code = 700) Stitcher Hand ID - JRLHEPATIC FUNCTION [id number] 02:17:49 Test Item Value Reference Range Interpretation Comments TOTAL PROTEIN (BEAKER) (test code = 7.0 gm/dL 6.0-8.3 770) ALBUMIN (BEAKER) (test code = 1145) 3.9 g/dL 3.5-5.0 BILIRUBIN TOTAL (BEAKER) (test code 1.4 mg/dL 0.2-1.2 H = 377) BILIRUBIN DIRECT (BEAKER) (test 0.7 mg/dL 0.1-0.5 H code = 706) ALKALINE PHOSPHATASE (BEAKER) (test 153 U/L 40-150 H code = 346) AST (SGOT) (BEAKER) (test code = 36 U/L 5-34 H 353) ALT (SGPT) (BEAKER) (test code = 318 U/L 6-55 H 347) Stitcher Hand ID - SOCO LBASIC METABOLIC [id number] 02:17:48 Test Item Value Reference Range Interpretation Comments SODIUM (BEAKER) 126 meq/L 136-145 L (test code = 381) POTASSIUM (BEAKER) 4.5 meq/L 3.5-5.1 (test code = 379) CHLORIDE (BEAKER) 92 meq/L 98-107 L (test code = 382) CO2 (BEAKER) (test 23 meq/L 22-29 code = 355) BLOOD UREA NITROGEN 18 mg/dL 7-21 (BEAKER) (test code = 354) CREATININE (BEAKER) 1.17 mg/dL 0.57-1.25 (test code = 358) GLUCOSE RANDOM 170 mg/dL 70-105 H (BEAKER) (test code = 652) CALCIUM (BEAKER) 8.9 mg/dL 8.4-10.2 (test code = 697) EGFR (BEAKER) (test 66 mL/min/1.73 ESTIMA NEELA GFR IS code = 1092) sq m NOT ACCURATE CREATININE CLEARANCE IN PREDICTING GLOMERULAR FILTRATION RATE . ESTIMATED GFR I S NOT APPLICABLE FOR DIALYSIS PATIEN TS. Stitcher Hand ID - SOCO [id number] 02:17:48 Test Item Value Reference Range Interpretation Comments PHOSPHORUS (BEAKER) (test code = 4.2 mg/dL 2.3-4.7 604) Stitcher Hand ID - SOCO [id number] 02:17:47 Test Item Value Reference Range Interpretation Comments MAGNESIUM (BEAKER) (test code = 2.4 mg/dL 1.6-2.6 627) Stitcher Hand ID - SOCO LLACTIC ACID, [id number] 02:12:10 Test Item Value Reference Range Interpretation Comments LACTATE BLOOD VENOUS 1.19 mmol/L 0.50-2.20 Specime n slightly (2) (BEAKER) (test hemolyzed code = 3354) Stitcher Hand ID - SOCO LCBC W/PLT COUNT & AUTO [id number] 02:02:05 Test Item Value Reference Range Interpretation Comments WHITE BLOOD CELL COUNT (BEAKER) 7.1 K/ L 3.5-10.5 (test code = 775) RED BLOOD CELL COUNT (BEAKER) 3.41 M/ L 4.63-6.08 L (test code = 761) HEMOGLOBIN (BEAKER) (test code = 10.1 GM/DL 13.7-17.5 L 410) HEMATOCRIT (BEAKER) (test code = 32.3 % 40.1-51.0 L 411) MEAN CORPUSCULAR VOLUME (BEAKER) 94.7 fL 79.0-92.2 H (test code = 753) MEAN CORPUSCULAR HEMOGLOBIN 29.6 pg 25.7-32.2 (BEAKER) (test code = 751) MEAN CORPUSCULAR HEMOGLOBIN CONC 31.3 GM/DL 32.3-36.5 L (BEAKER) (test code = 752) RED CELL DISTRIBUTION WIDTH 23.4 % 11.6-14.4 H (BEAKER) (test code = 412) PLATELET COUNT (BEAKER) (test 278 K/CU MM 150-450 code = 756) MEAN PLATELET VOLUME (BEAKER) 10.2 fL 9.4-12.4 (test code = 754) NUCLEATED RED BLOOD CELLS 0 /100 WBC 0-0 (BEAKER) (test code = 413) NEUTROPHILS RELATIVE PERCENT 75 % (BEAKER) (test code = 429) LYMPHOCYTES RELATIVE PERCENT 17 % (BEAKER) (test code = 430) MONOCYTES RELATIVE PERCENT 7 % (BEAKER) (test code = 431) EOSINOPHILS RELATIVE PERCENT 1 % (BEAKER) (test code = 432) BASOPHILS RELATIVE PERCENT 0 % (BEAKER) (test code = 437) NEUTROPHILS ABSOLUTE COUNT 5.32 K/ L 1.78-5.38 (BEAKER) (test code = 670) LYMPHOCYTES ABSOLUTE COUNT 1.17 K/ L 1.32-3.57 L (BEAKER) (test code = 414) MONOCYTES ABSOLUTE COUNT (BEAKER) 0.47 K/ L 0.30-0.82 (test code = 415) EOSINOPHILS ABSOLUTE COUNT 0.07 K/ L 0.04-0.54 (BEAKER) (test code = 416) BASOPHILS ABSOLUTE COUNT (BEAKER) 0.02 K/ L 0.01-0.08 (test code = 417) IMMATURE GRANULOCYTES-RELATIVE 1 % 0-1 PERCENT (BEAKER) (test code = 2801) OXYGEN SATURATION, [id number] 02:01:09 Test Item Value Reference Range Interpretation Comments O2 SATURATION (MEASURED) (BEAKER) 45.9 % (test code = 1455) [id number] 16:11:06 Test Item Value Reference Range Interpretation Comments MAGNESIUM (BEAKER) (test code = 2.1 mg/dL 1.6-2.6 627) Stitcher Hand ID - SOCO [id number] 16:11:06 Test Item Value Reference Range Interpretation Comments PHOSPHORUS (BEAKER) (test code = 3.9 mg/dL 2.3-4.7 604) Stitcher Hand ID - AUNDREANISHANT LBASIC METABOLIC [id number] 16:11:05 Test Item Value Reference Range Interpretation Comments SODIUM (BEAKER) 129 meq/L 136-145 L (test code = 381) POTASSIUM (BEAKER) 4.3 meq/L 3.5-5.1 (test code = 379) CHLORIDE (BEAKER) 94 meq/L 98-107 L (test code = 382) CO2 (BEAKER) (test 26 meq/L 22-29 code = 355) BLOOD UREA NITROGEN 15 mg/dL 7-21 (BEAKER) (test code = 354) CREATININE (BEAKER) 1.26 mg/dL 0.57-1.25 H (test code = 358) GLUCOSE RANDOM 180 mg/dL 70-105 H (BEAKER) (test code = 652) CALCIUM (BEAKER) 9.1 mg/dL 8.4-10.2 (test code = 697) EGFR (BEAKER) (test 61 mL/min/1.73 ESTIMA NEELA GFR IS code = 1092) sq m NOT ACCURATE CREATININE CLEARANCE IN PREDICTING GLOMERULAR FILTRATION RATE . ESTIMATED GFR I S NOT APPLICABLE FOR DIALYSIS PATIEN TS. Stitcher Hand ID - AUNDREANISHANT LOXYGEN SATURATION, [id number] 15:36:54 Test Item Value Reference Range Interpretation Comments O2 SATURATION (MEASURED) (BEAKER) 58.6 % (test code = 1455) BASIC METABOLIC [id number] 09:45:17 Test Item Value Reference Range Interpretation Comments SODIUM (BEAKER) 131 meq/L 136-145 L (test code = 381) POTASSIUM (BEAKER) 3.5 meq/L 3.5-5.1 (test code = 379) CHLORIDE (BEAKER) 93 meq/L 98-107 L (test code = 382) CO2 (BEAKER) (test 27 meq/L 22-29 code = 355) BLOOD UREA NITROGEN 14 mg/dL 7-21 (BEAKER) (test code = 354) CREATININE (BEAKER) 1.02 mg/dL 0.57-1.25 (test code = 358) GLUCOSE RANDOM 191 mg/dL 70-105 H (BEAKER) (test code = 652) CALCIUM (BEAKER) 8.9 mg/dL 8.4-10.2 (test code = 697) EGFR (BEAKER) (test 77 mL/min/1.73 ESTIMA NEELA GFR IS code = 1092) sq m NOT ACCURATE CREATININE CLEARANCE IN PREDICTING GLOMERULAR FILTRATION RATE . ESTIMATED GFR I S NOT APPLICABLE FOR DIALYSIS PATIEN TS. Stitcher Hand ID - SOCO LOXYGEN SATURATION, [id number] 09:08:52 Test Item Value Reference Range Interpretation Comments O2 SATURATION (MEASURED) (BEAKER) 74.3 % (test code = 1455) LACTIC ACID, [id number] 03:49:44 Test Item Value Reference Range Interpretation Comments LACTATE BLOOD VENOUS 1.19 mmol/L 0.50-2.20 Specime n slightly (2) (BEAKER) (test hemolyzed code = 4305) Stitcher Hand ID - SOCO LB-TYPE NATRIURETIC FACTOR (BNP)2021-07-13 03:38:38 Test Item Value Reference Range Interpretation Comments B-TYPE NATRIURETIC PEPTIDE 1152 pg/mL 0-100 H (BEAKER) (test code = 700) Stitcher Hand ID - SO MHEPATIC FUNCTION [id number] 03:35:04 Test Item Value Reference Range Interpretation Comments TOTAL PROTEIN (BEAKER) (test code = 7.0 gm/dL 6.0-8.3 770) ALBUMIN (BEAKER) (test code = 1145) 3.8 g/dL 3.5-5.0 BILIRUBIN TOTAL (BEAKER) (test code 1.2 mg/dL 0.2-1.2 = 377) BILIRUBIN DIRECT (BEAKER) (test 0.7 mg/dL 0.1-0.5 H code = 706) ALKALINE PHOSPHATASE (BEAKER) (test 161 U/L 40-150 H code = 346) AST (SGOT) (BEAKER) (test code = 47 U/L 5-34 H 353) ALT (SGPT) (BEAKER) (test code = 415 U/L 6-55 H 347) Stitcher Hand ID Sal WAN [id number] 03:35:03 Test Item Value Reference Range Interpretation Comments MAGNESIUM (BEAKER) (test code = 2.3 mg/dL 1.6-2.6 627) Stitcher Hand ID - SOCO [id number] 03:35:03 Test Item Value Reference Range Interpretation Comments PHOSPHORUS (BEAKER) (test code = 3.6 mg/dL 2.3-4.7 604) Stitcher Hand ID - SOCO LBASIC METABOLIC [id number] 03:35:02 Test Item Value Reference Range Interpretation Comments SODIUM (BEAKER) 132 meq/L 136-145 L (test code = 381) POTASSIUM (BEAKER) 3.9 meq/L 3.5-5.1 (test code = 379) CHLORIDE (BEAKER) 94 meq/L 98-107 L (test code = 382) CO2 (BEAKER) (test 26 meq/L 22-29 code = 355) BLOOD UREA NITROGEN 14 mg/dL 7-21 (BEAKER) (test code = 354) CREATININE (BEAKER) 0.91 mg/dL 0.57-1.25 (test code = 358) GLUCOSE RANDOM 143 mg/dL 70-105 H (BEAKER) (test code = 652) CALCIUM (BEAKER) 9.0 mg/dL 8.4-10.2 (test code = 697) EGFR (BEAKER) (test 88 mL/min/1.73 ESTIMA NEELA GFR IS code = 1092) sq m NOT ACCURATE CREATININE CLEARANCE IN PREDICTING GLOMERULAR FILTRATION RATE . ESTIMATED GFR I S NOT APPLICABLE FOR DIALYSIS PATIEN TS. Stitcher Hand ID - SOCO LCBC W/PLT COUNT & AUTO [id number] 03:25:02 Test Item Value Reference Range Interpretation Comments WHITE BLOOD CELL COUNT (BEAKER) 7.8 K/ L 3.5-10.5 (test code = 775) RED BLOOD CELL COUNT (BEAKER) 3.52 M/ L 4.63-6.08 L (test code = 761) HEMOGLOBIN (BEAKER) (test code = 10.5 GM/DL 13.7-17.5 L 410) HEMATOCRIT (BEAKER) (test code = 33.0 % 40.1-51.0 L 411) MEAN CORPUSCULAR VOLUME (BEAKER) 93.8 fL 79.0-92.2 H (test code = 753) MEAN CORPUSCULAR HEMOGLOBIN 29.8 pg 25.7-32.2 (BEAKER) (test code = 751) MEAN CORPUSCULAR HEMOGLOBIN CONC 31.8 GM/DL 32.3-36.5 L (BEAKER) (test code = 752) RED CELL DISTRIBUTION WIDTH 23.5 % 11.6-14.4 H (BEAKER) (test code = 412) PLATELET COUNT (BEAKER) (test 247 K/CU MM 150-450 code = 756) MEAN PLATELET VOLUME (BEAKER) 10.1 fL 9.4-12.4 (test code = 754) NUCLEATED RED BLOOD CELLS 0 /100 WBC 0-0 (BEAKER) (test code = 413) NEUTROPHILS RELATIVE PERCENT 77 % (BEAKER) (test code = 429) LYMPHOCYTES RELATIVE PERCENT 15 % (BEAKER) (test code = 430) MONOCYTES RELATIVE PERCENT 6 % (BEAKER) (test code = 431) EOSINOPHILS RELATIVE PERCENT 2 % (BEAKER) (test code = 432) BASOPHILS RELATIVE PERCENT 0 % (BEAKER) (test code = 437) NEUTROPHILS ABSOLUTE COUNT 5.95 K/ L 1.78-5.38 H (BEAKER) (test code = 670) LYMPHOCYTES ABSOLUTE COUNT 1.14 K/ L 1.32-3.57 L (BEAKER) (test code = 414) MONOCYTES ABSOLUTE COUNT (BEAKER) 0.44 K/ L 0.30-0.82 (test code = 415) EOSINOPHILS ABSOLUTE COUNT 0.16 K/ L 0.04-0.54 (BEAKER) (test code = 416) BASOPHILS ABSOLUTE COUNT (BEAKER) 0.02 K/ L 0.01-0.08 (test code = 417) IMMATURE GRANULOCYTES-RELATIVE 1 % 0-1 PERCENT (BEAKER) (test code = 2801) OXYGEN SATURATION, [id number] 03:21:55 Test Item Value Reference Range Interpretation Comments O2 SATURATION (MEASURED) (BEAKER) 57.9 % (test code = 1455) [id number] 18:55:09 Test Item Value Reference Range Interpretation Comments PHOSPHORUS (BEAKER) (test code = 3.4 mg/dL 2.3-4.7 604) Stitcher Hand ID - DBBASIC METABOLIC [id number] 18:55:08 Test Item Value Reference Range Interpretation Comments SODIUM (BEAKER) 131 meq/L 136-145 L (test code = 381) POTASSIUM (BEAKER) 3.5 meq/L 3.5-5.1 (test code = 379) CHLORIDE (BEAKER) 92 meq/L 98-107 L (test code = 382) CO2 (BEAKER) (test 28 meq/L 22-29 code = 355) BLOOD UREA NITROGEN 16 mg/dL 7-21 (BEAKER) (test code = 354) CREATININE (BEAKER) 1.00 mg/dL 0.57-1.25 (test code = 358) GLUCOSE RANDOM 195 mg/dL 70-105 H (BEAKER) (test code = 652) CALCIUM (BEAKER) 8.6 mg/dL 8.4-10.2 (test code = 697) EGFR (BEAKER) (test 79 mL/min/1.73 ESTIMA NEELA GFR IS code = 1092) sq m NOT ACCURATE CREATININE CLEARANCE IN PREDICTING GLOMERULAR FILTRATION RATE . ESTIMATED GFR I S NOT APPLICABLE FOR DIALYSIS PATIEN TS. Stitcher Hand ID - [id number] 18:55:08 Test Item Value Reference Range Interpretation Comments MAGNESIUM (BEAKER) (test code = 2.1 mg/dL 1.6-2.6 627) Stitcher Hand ID - DBOXYGEN SATURATION, [id number] 18:32:48 Test Item Value Reference Range Interpretation Comments O2 SATURATION (MEASURED) (BEAKER) 59.0 % (test code = 1455) BLOOD [id number] 12:02:01 Test Item Value Reference Range Interpretation Comments CULTURE (BEAKER) (test No growth in 5 days code = 1095) BLOOD [id number] 12:02:01 Test Item Value Reference Range Interpretation Comments CULTURE (BEAKER) (test No growth in 5 days code = 1095) [id number] 11:36:18 Test Item Value Reference Range Interpretation Comments MAGNESIUM (BEAKER) 2.1 mg/dL 1.6-2.6 Specimen slightly (test code = 627) hemolyzed Stitcher Hand ID - DBBASIC METABOLIC [id number] 11:36:18 Test Item Value Reference Range Interpretation Comments SODIUM (BEAKER) 133 meq/L 136-145 L (test code = 381) POTASSIUM (BEAKER) 3.6 meq/L 3.5-5.1 Specimen slightly (test code = 379) hemolyzed CHLORIDE (BEAKER) 93 meq/L 98-107 L (test code = 382) CO2 (BEAKER) (test 28 meq/L 22-29 code = 355) BLOOD UREA NITROGEN 17 mg/dL 7-21 (BEAKER) (test code = 354) CREATININE (BEAKER) 1.18 mg/dL 0.57-1.25 Specimen slightly (test code = 358) hemolyzed GLUCOSE RANDOM 153 mg/dL 70-105 H (BEAKER) (test code = 652) CALCIUM (BEAKER) 9.1 mg/dL 8.4-10.2 (test code = 697) EGFR (BEAKER) (test 65 mL/min/1.73 ESTIMA NEELA GFR IS code = 1092) sq m NOT ACCURATE CREATININE CLEARANCE IN PREDICTING GLOMERULAR FILTRATION RATE . ESTIMATED GFR I S NOT APPLICABLE FOR DIALYSIS PATIEN TS. Stitcher Hand ID - DBOXYGEN SATURATION, [id number] 11:19:38 Test Item Value Reference Range Interpretation Comments O2 SATURATION (MEASURED) (BEAKER) 63.1 % (test code = 1455) B-TYPE NATRIURETIC FACTOR (BNP)2021-07-12 02:23:22 Test Item Value Reference Range Interpretation Comments B-TYPE NATRIURETIC PEPTIDE (BEAKER) 902 pg/mL 0-100 H (test code = 700) Stitcher Hand ID - DBHEPATIC FUNCTION [id number] 02:20:26 Test Item Value Reference Range Interpretation Comments TOTAL PROTEIN (BEAKER) (test code = 7.0 gm/dL 6.0-8.3 770) ALBUMIN (BEAKER) (test code = 1145) 3.9 g/dL 3.5-5.0 BILIRUBIN TOTAL (BEAKER) (test code 1.2 mg/dL 0.2-1.2 = 377) BILIRUBIN DIRECT (BEAKER) (test 0.7 mg/dL 0.1-0.5 H code = 706) ALKALINE PHOSPHATASE (BEAKER) (test 167 U/L 40-150 H code = 346) AST (SGOT) (BEAKER) (test code = 69 U/L 5-34 H 353) ALT (SGPT) (BEAKER) (test code = 590 U/L 6-55 H 347) Stitcher Hand ID - [id number] 02:20:25 Test Item Value Reference Range Interpretation Comments MAGNESIUM (BEAKER) (test code = 2.1 mg/dL 1.6-2.6 627) Stitcher Hand ID - [id number] 02:20:25 Test Item Value Reference Range Interpretation Comments PHOSPHORUS (BEAKER) (test code = 3.9 mg/dL 2.3-4.7 604) Stitcher Hand ID - DBBASIC METABOLIC [id number] 02:20:24 Test Item Value Reference Range Interpretation Comments SODIUM (BEAKER) 131 meq/L 136-145 L (test code = 381) POTASSIUM (BEAKER) 3.2 meq/L 3.5-5.1 L (test code = 379) CHLORIDE (BEAKER) 93 meq/L 98-107 L (test code = 382) CO2 (BEAKER) (test 27 meq/L 22-29 code = 355) BLOOD UREA NITROGEN 15 mg/dL 7-21 (BEAKER) (test code = 354) CREATININE (BEAKER) 1.19 mg/dL 0.57-1.25 (test code = 358) GLUCOSE RANDOM 118 mg/dL 70-105 H (BEAKER) (test code = 652) CALCIUM (BEAKER) 9.0 mg/dL 8.4-10.2 (test code = 697) EGFR (BEAKER) (test 65 mL/min/1.73 ESTIMA NEELA GFR IS code = 1092) sq m NOT ACCURATE CREATININE CLEARANCE IN PREDICTING GLOMERULAR FILTRATION RATE . ESTIMATED GFR I S NOT APPLICABLE FOR DIALYSIS PATIEN TS. Stitcher Hand ID - DBLACTIC ACID, [id number] 02:11:42 Test Item Value Reference Range Interpretation Comments LACTATE BLOOD VENOUS 1.48 mmol/L 0.50-2.20 Specime n slightly (2) (BEAKER) (test hemolyzed code = 6978) Stitcher Hand ID - DBCBC W/PLT COUNT & AUTO [id number] 02:03:00 Test Item Value Reference Range Interpretation Comments WHITE BLOOD CELL COUNT (BEAKER) 6.9 K/ L 3.5-10.5 (test code = 775) RED BLOOD CELL COUNT (BEAKER) 3.47 M/ L 4.63-6.08 L (test code = 761) HEMOGLOBIN (BEAKER) (test code = 10.3 GM/DL 13.7-17.5 L 410) HEMATOCRIT (BEAKER) (test code = 32.4 % 40.1-51.0 L 411) MEAN CORPUSCULAR VOLUME (BEAKER) 93.4 fL 79.0-92.2 H (test code = 753) MEAN CORPUSCULAR HEMOGLOBIN 29.7 pg 25.7-32.2 (BEAKER) (test code = 751) MEAN CORPUSCULAR HEMOGLOBIN CONC 31.8 GM/DL 32.3-36.5 L (BEAKER) (test code = 752) RED CELL DISTRIBUTION WIDTH 23.5 % 11.6-14.4 H (BEAKER) (test code = 412) PLATELET COUNT (BEAKER) (test 227 K/CU MM 150-450 code = 756) MEAN PLATELET VOLUME (BEAKER) 9.8 fL 9.4-12.4 (test code = 754) NUCLEATED RED BLOOD CELLS 0 /100 WBC 0-0 (BEAKER) (test code = 413) NEUTROPHILS RELATIVE PERCENT 76 % (BEAKER) (test code = 429) LYMPHOCYTES RELATIVE PERCENT 15 % (BEAKER) (test code = 430) MONOCYTES RELATIVE PERCENT 5 % (BEAKER) (test code = 431) EOSINOPHILS RELATIVE PERCENT 2 % (BEAKER) (test code = 432) BASOPHILS RELATIVE PERCENT 0 % (BEAKER) (test code = 437) NEUTROPHILS ABSOLUTE COUNT 5.25 K/ L 1.78-5.38 (BEAKER) (test code = 670) LYMPHOCYTES ABSOLUTE COUNT 1.06 K/ L 1.32-3.57 L (BEAKER) (test code = 414) MONOCYTES ABSOLUTE COUNT (BEAKER) 0.37 K/ L 0.30-0.82 (test code = 415) EOSINOPHILS ABSOLUTE COUNT 0.13 K/ L 0.04-0.54 (BEAKER) (test code = 416) BASOPHILS ABSOLUTE COUNT (BEAKER) 0.02 K/ L 0.01-0.08 (test code = 417) IMMATURE GRANULOCYTES-RELATIVE 1 % 0-1 PERCENT (BEAKER) (test code = 2801) OXYGEN SATURATION, [id number] 01:53:58 Test Item Value Reference Range Interpretation Comments O2 SATURATION (MEASURED) (BEAKER) 74.0 % (test code = 1455) BASIC METABOLIC [id number] 17:28:49 Test Item Value Reference Range Interpretation Comments SODIUM (BEAKER) 134 meq/L 136-145 L (test code = 381) POTASSIUM (BEAKER) 3.2 meq/L 3.5-5.1 L Specimen slightly (test code = 379) hemolyzed CHLORIDE (BEAKER) 92 meq/L 98-107 L (test code = 382) CO2 (BEAKER) (test 32 meq/L 22-29 H code = 355) BLOOD UREA NITROGEN 14 mg/dL 7-21 (BEAKER) (test code = 354) CREATININE (BEAKER) 1.00 mg/dL 0.57-1.25 Specimen slightly (test code = 358) hemolyzed GLUCOSE RANDOM 129 mg/dL 70-105 H (BEAKER) (test code = 652) CALCIUM (BEAKER) 8.9 mg/dL 8.4-10.2 (test code = 697) EGFR (BEAKER) (test 79 mL/min/1.73 ESTIMA NEELA GFR IS code = 1092) sq m NOT ACCURATE CREATININE CLEARANCE IN PREDICTING GLOMERULAR FILTRATION RATE . ESTIMATED GFR I S NOT APPLICABLE FOR DIALYSIS PATIEN TS. Stitcher Hand ID - [id number] 17:28:48 Test Item Value Reference Range Interpretation Comments MAGNESIUM (BEAKER) 2.1 mg/dL 1.6-2.6 Specimen slightly (test code = 627) hemolyzed Stitcher Hand ID - [id number] 17:28:48 Test Item Value Reference Range Interpretation Comments PHOSPHORUS (BEAKER) 3.7 mg/dL 2.3-4.7 Specimen slightly (test code = 604) hemolyzed Stitcher Hand ID - DBOXYGEN SATURATION, [id number] 17:07:18 Test Item Value Reference Range Interpretation Comments O2 SATURATION (MEASURED) (BEAKER) 64.8 % (test code = 1455) POCT-GLUCOSE [id number] 11:05:37 Test Item Value Reference Range Interpretation Comments POC-GLUCOSE METER 136 mg/dL 70-110 H [facility] (test code = [place], 1538) [address]: Stitcher Hand/Techni ebenezer ID = [id number] for [address] (pca2)Anna B-TYPE NATRIURETIC FACTOR (BNP)2021-07-11 04:18:13 Test Item Value Reference Range Interpretation Comments B-TYPE NATRIURETIC PEPTIDE 1109 pg/mL 0-100 H (BEAKER) (test code = 700) Stitcher Hand ID - jrlCOMPREHENSIVE METABOLIC [id number] 04:15:33 Test Item Value Reference Range Interpretation Comments TOTAL PROTEIN 7.0 gm/dL 6.0-8.3 Specimen sligh tly (BEAKER) (test code = hemoly zed 770) ALBUMIN (BEAKER) 3.8 g/dL 3.5-5.0 Specimen sl ightly (test code = 1145) hemolyzed ALKALINE PHOSPHATASE 175 U/L 40-150 H (BEAKER) (test code = 346) BILIRUBIN TOTAL 1.4 mg/dL 0.2-1.2 H Specimen sli ghtly (BEAKER) (test code = hemoly zed 377) SODIUM (BEAKER) (test 136 meq/L 136-145 code = 381) POTASSIUM (BEAKER) 3.4 meq/L 3.5-5.1 L Specimen slightly (test code = 379) hemolyzed CHLORIDE (BEAKER) 93 meq/L 98-107 L (test code = 382) CO2 (BEAKER) (test 31 meq/L 22-29 H code = 355) BLOOD UREA NITROGEN 15 mg/dL 7-21 (BEAKER) (test code = 354) CREATININE (BEAKER) 1.04 mg/dL 0.57-1.25 Specimen slightly (test code = 358) hemolyzed GLUCOSE RANDOM 122 mg/dL 70-105 H (BEAKER) (test code = 652) CALCIUM (BEAKER) 9.2 mg/dL 8.4-10.2 (test code = 697) AST (SGOT) (BEAKER) 126 U/L 5-34 H Specimen slightly (test code = 353) hemolyzed ALT (SGPT) (BEAKER) 853 U/L 6-55 H Specimen slightly (test code = 347) hemolyzed EGFR (BEAKER) (test 76 mL/min/1.73 ESTIMA NEELA GFR IS code = 1092) sq m NOT ACCURATE CREATININE CLEARANCE IN PREDICTING GLOMERULAR FILTRATION RATE . ESTIMATED GFR I S NOT APPLICABLE FOR DIALYSIS PATIEN TS. Stitcher Hand ID - jrlHEPATIC FUNCTION [id number] 04:15:33 Test Item Value Reference Range Interpretation Comments TOTAL PROTEIN (BEAKER) 7.0 gm/dL 6.0-8.3 Speci men slightly (test code = 770) hemolyzed ALBUMIN (BEAKER) (test 3.8 g/dL 3.5-5.0 Speci men slightly code = 1145) hemolyzed BILIRUBIN TOTAL 1.4 mg/dL 0.2-1.2 H Specimen sli ghtly (BEAKER) (test code = hemoly zed 377) BILIRUBIN DIRECT 0.6 mg/dL 0.1-0.5 H Specimen sl ightly (BEAKER) (test code = hemoly zed 706) ALKALINE PHOSPHATASE 175 U/L 40-150 H (BEAKER) (test code = 346) AST (SGOT) (BEAKER) 126 U/L 5-34 H Specimen slightly (test code = 353) hemolyzed ALT (SGPT) (BEAKER) 853 U/L 6-55 H Specimen slightly (test code = 347) hemolyzed Stitcher Hand ID - [id number] 04:15:32 Test Item Value Reference Range Interpretation Comments MAGNESIUM (BEAKER) 2.2 mg/dL 1.6-2.6 Specimen slightly (test code = 627) hemolyzed Stitcher Hand ID - [id number] 04:15:32 Test Item Value Reference Range Interpretation Comments PHOSPHORUS (BEAKER) 3.3 mg/dL 2.3-4.7 Specimen slightly (test code = 604) hemolyzed Stitcher Hand ID - jrlCBC W/PLT COUNT & AUTO [id number] 04:07:05 Test Item Value Reference Range Interpretation Comments WHITE BLOOD CELL COUNT 7.7 K/ L 3.5-10.5 (BEAKER) (test code = 775) RED BLOOD CELL COUNT 3.49 M/ L 4.63-6.08 L (BEAKER) (test code = 761) HEMOGLOBIN (BEAKER) 10.4 GM/DL 13.7-17.5 L (test code = 410) HEMATOCRIT (BEAKER) 32.1 % 40.1-51.0 L (test code = 411) MEAN CORPUSCULAR 92.0 fL 79.0-92.2 Discordant result VOLUME (BEAKER) (test compar ed to previous code = 753) result. Clinica l correlation req uired MEAN CORPUSCULAR 29.8 pg 25.7-32.2 HEMOGLOBIN (BEAKER) (test code = 751) MEAN CORPUSCULAR 32.4 GM/DL 32.3-36.5 HEMOGLOBIN CONC (BEAKER) (test code = 752) RED CELL DISTRIBUTION 23.5 % 11.6-14.4 H WIDTH (BEAKER) (test code = 412) PLATELET COUNT 229 K/CU MM 150-450 (BEAKER) (test code = 756) MEAN PLATELET VOLUME 9.8 fL 9.4-12.4 (BEAKER) (test code = 754) NUCLEATED RED BLOOD 0 /100 WBC 0-0 CELLS (BEAKER) (test code = 413) NEUTROPHILS RELATIVE 76 % PERCENT (BEAKER) (test code = 429) LYMPHOCYTES RELATIVE 16 % PERCENT (BEAKER) (test code = 430) MONOCYTES RELATIVE 6 % PERCENT (BEAKER) (test code = 431) EOSINOPHILS RELATIVE 2 % PERCENT (BEAKER) (test code = 432) BASOPHILS RELATIVE 0 % PERCENT (BEAKER) (test code = 437) NEUTROPHILS ABSOLUTE 5.82 K/ L 1.78-5.38 H COUNT (BEAKER) (test code = 670) LYMPHOCYTES ABSOLUTE 1.19 K/ L 1.32-3.57 L COUNT (BEAKER) (test code = 414) MONOCYTES ABSOLUTE 0.47 K/ L 0.30-0.82 COUNT (BEAKER) (test code = 415) EOSINOPHILS ABSOLUTE 0.14 K/ L 0.04-0.54 COUNT (BEAKER) (test code = 416) BASOPHILS ABSOLUTE 0.01 K/ L 0.01-0.08 COUNT (BEAKER) (test code = 417) IMMATURE 0 % 0-1 GRANULOCYTES-RELATIVE PERCENT (BEAKER) (test code = 2801) LACTIC ACID, [id number] 04:03:28 Test Item Value Reference Range Interpretation Comments LACTATE BLOOD VENOUS (2) (BEAKER) 1.02 mmol/L 0.50-2.20 (test code = 2872) Stitcher Hand ID - jrlCALCIUM, [id number] 03:58:37 Test Item Value Reference Range Interpretation Comments CALCIUM IONIZED (BEAKER) (test 1.07 mmol/L 1.12-1.27 L code = 698) PH, BLOOD (BEAKER) (test code = 7.42 1810) OXYGEN SATURATION, [id number] 03:58:05 Test Item Value Reference Range Interpretation Comments O2 SATURATION (MEASURED) (BEAKER) 52.8 % (test code = 1455) POCT-GLUCOSE [id number] 22:55:20 Test Item Value Reference Range Interpretation Comments POC-GLUCOSE METER 65 mg/dL 70-110 L : TESTED A T [facility] 6720 (BEAKER) (test code = [facility], 1538) [address]: Stitcher Hand/Techni ebenezer ID = [id number] for Laurita ghosh (pca2), Suzette POCT-GLUCOSE [id number] 22:34:36 Test Item Value Reference Range Interpretation Comments POC-GLUCOSE METER 64 mg/dL 70-110 L : TESTED A T [facility] 6720 (BEAKER) (test code = [facility], 1538) [id number]: Stitcher Hand/Techni ebenezer ID = [id number] for Alco augie (pca2), Suzette [id number] 19:01:46 Test Item Value Reference Range Interpretation Comments MAGNESIUM (BEAKER) (test code = 1.8 mg/dL 1.6-2.6 627) Stitcher Hand ID - SO MBASIC METABOLIC [id number] 17:33:59 Test Item Value Reference Range Interpretation Comments SODIUM (BEAKER) 138 meq/L 136-145 (test code = 381) POTASSIUM (BEAKER) 3.6 meq/L 3.5-5.1 Specimen slightly (test code = 379) hemolyzed CHLORIDE (BEAKER) 97 meq/L 98-107 L (test code = 382) CO2 (BEAKER) (test 32 meq/L 22-29 H code = 355) BLOOD UREA NITROGEN 16 mg/dL 7-21 (BEAKER) (test code = 354) CREATININE (BEAKER) 1.17 mg/dL 0.57-1.25 Specimen slightly (test code = 358) hemolyzed GLUCOSE RANDOM 124 mg/dL 70-105 H (BEAKER) (test code = 652) CALCIUM (BEAKER) 9.4 mg/dL 8.4-10.2 (test code = 697) EGFR (BEAKER) (test 66 mL/min/1.73 ESTIMA NEELA GFR IS code = 1092) sq m NOT ACCURATE CREATININE CLEARANCE IN PREDICTING GLOMERULAR FILTRATION RATE . ESTIMATED GFR I S NOT APPLICABLE FOR DIALYSIS PATIEN TS. Stitcher Hand ID - SO [id number] 17:33:58 Test Item Value Reference Range Interpretation Comments PHOSPHORUS (BEAKER) 2.7 mg/dL 2.3-4.7 Specimen slightly (test code = 604) hemolyzed Stitcher Hand ID - SO MOXYGEN SATURATION, [id number] 17:15:16 Test Item Value Reference Range Interpretation Comments O2 SATURATION (MEASURED) (BEAKER) 53.9 % (test code = 1455) BASIC METABOLIC [id number] 10:40:00 Test Item Value Reference Range Interpretation Comments SODIUM (BEAKER) 137 meq/L 136-145 (test code = 381) POTASSIUM (BEAKER) 3.5 meq/L 3.5-5.1 Specimen slightly (test code = 379) hemolyzed CHLORIDE (BEAKER) 95 meq/L 98-107 L (test code = 382) CO2 (BEAKER) (test 34 meq/L 22-29 H code = 355) BLOOD UREA NITROGEN 14 mg/dL 7-21 (BEAKER) (test code = 354) CREATININE (BEAKER) 1.06 mg/dL 0.57-1.25 Specimen slightly (test code = 358) hemolyzed GLUCOSE RANDOM 119 mg/dL 70-105 H (BEAKER) (test code = 652) CALCIUM (BEAKER) 9.0 mg/dL 8.4-10.2 (test code = 697) EGFR (BEAKER) (test 74 mL/min/1.73 ESTIMA NEELA GFR IS code = 1092) sq m NOT ACCURATE CREATININE CLEARANCE IN PREDICTING GLOMERULAR FILTRATION RATE . ESTIMATED GFR I S NOT APPLICABLE FOR DIALYSIS PATIEN TS. Stitcher Hand ID - SO [id number] 10:39:59 Test Item Value Reference Range Interpretation Comments MAGNESIUM (BEAKER) 2.1 mg/dL 1.6-2.6 Specimen slightly (test code = 627) hemolyzed Stitcher Hand ID Sal RIZZO MOXYGEN SATURATION, [id number] 09:00:27 Test Item Value Reference Range Interpretation Comments O2 SATURATION (MEASURED) (BEAKER) 56.3 % (test code = 1455) B-TYPE NATRIURETIC FACTOR (BNP)[id number] 04:42:52 Test Item Value Reference Range Interpretation Comments B-TYPE NATRIURETIC PEPTIDE 1726 pg/mL 0-100 H (BEAKER) (test code = 700) Stitcher Hand ID Sal RIZZO MHEPATIC FUNCTION [id number] 04:40:19 Test Item Value Reference Range Interpretation Comments TOTAL PROTEIN (BEAKER) (test code = 7.4 gm/dL 6.0-8.3 770) ALBUMIN (BEAKER) (test code = 1145) 4.1 g/dL 3.5-5.0 BILIRUBIN TOTAL (BEAKER) (test code 1.5 mg/dL 0.2-1.2 H = 377) BILIRUBIN DIRECT (BEAKER) (test 1.0 mg/dL 0.1-0.5 H code = 706) ALKALINE PHOSPHATASE (BEAKER) (test 188 U/L 40-150 H code = 346) AST (SGOT) (BEAKER) (test code = 216 U/L 5-34 H 353) ALT (SGPT) (BEAKER) (test code = 1151 U/L 6-55 H 347) Stitcher Hand ID - SOCO [id number] 04:40:18 Test Item Value Reference Range Interpretation Comments MAGNESIUM (BEAKER) (test code = 2.5 mg/dL 1.6-2.6 627) Stitcher Hand ID - SOCO [id number] 04:40:18 Test Item Value Reference Range Interpretation Comments PHOSPHORUS (BEAKER) (test code = 4.5 mg/dL 2.3-4.7 604) Stitcher Hand ID - SOCO LCOMPREHENSIVE METABOLIC [id number] 04:40:17 Test Item Value Reference Range Interpretation Comments TOTAL PROTEIN 7.4 gm/dL 6.0-8.3 (BEAKER) (test code = 770) ALBUMIN (BEAKER) 4.1 g/dL 3.5-5.0 (test code = 1145) ALKALINE PHOSPHATASE 188 U/L 40-150 H (BEAKER) (test code = 346) BILIRUBIN TOTAL 1.5 mg/dL 0.2-1.2 H (BEAKER) (test code = 377) SODIUM (BEAKER) (test 136 meq/L 136-145 code = 381) POTASSIUM (BEAKER) 3.5 meq/L 3.5-5.1 (test code = 379) CHLORIDE (BEAKER) 91 meq/L 98-107 L (test code = 382) CO2 (BEAKER) (test 34 meq/L 22-29 H code = 355) BLOOD UREA NITROGEN 16 mg/dL 7-21 (BEAKER) (test code = 354) CREATININE (BEAKER) 1.23 mg/dL 0.57-1.25 (test code = 358) GLUCOSE RANDOM 123 mg/dL 70-105 H (BEAKER) (test code = 652) CALCIUM (BEAKER) 9.5 mg/dL 8.4-10.2 (test code = 697) AST (SGOT) (BEAKER) 216 U/L 5-34 H (test code = 353) ALT (SGPT) (BEAKER) 1151 U/L 6-55 H (test code = 347) EGFR (BEAKER) (test 62 mL/min/1.73 ESTIMA NEELA GFR IS code = 1092) sq m NOT ACCURATE CREATININE CLEARANCE IN PREDICTING GLOMERULAR FILTRATION RATE . ESTIMATED GFR I S NOT APPLICABLE FOR DIALYSIS PATIEN TS. Stitcher Hand ID - SOCO LCALCIUM, [id number] 04:38:32 Test Item Value Reference Range Interpretation Comments CALCIUM IONIZED (BEAKER) (test 1.12 mmol/L 1.12-1.27 code = 698) PH, BLOOD (BEAKER) (test code = 7.36 1810) LACTIC ACID, [id number] 04:27:47 Test Item Value Reference Range Interpretation Comments LACTATE BLOOD VENOUS (2) (BEAKER) 1.06 mmol/L 0.50-2.20 (test code = 2872) Stitcher Hand ID - SO MCBC W/PLT COUNT & AUTO [id number] 04:20:36 Test Item Value Reference Range Interpretation Comments WHITE BLOOD CELL COUNT (BEAKER) 8.4 K/ L 3.5-10.5 (test code = 775) RED BLOOD CELL COUNT (BEAKER) 3.50 M/ L 4.63-6.08 L (test code = 761) HEMOGLOBIN (BEAKER) (test code = 10.4 GM/DL 13.7-17.5 L 410) HEMATOCRIT (BEAKER) (test code = 34.2 % 40.1-51.0 L 411) MEAN CORPUSCULAR VOLUME (BEAKER) 97.7 fL 79.0-92.2 H (test code = 753) MEAN CORPUSCULAR HEMOGLOBIN 29.7 pg 25.7-32.2 (BEAKER) (test code = 751) MEAN CORPUSCULAR HEMOGLOBIN CONC 30.4 GM/DL 32.3-36.5 L (BEAKER) (test code = 752) RED CELL DISTRIBUTION WIDTH 23.8 % 11.6-14.4 H (BEAKER) (test code = 412) PLATELET COUNT (BEAKER) (test 215 K/CU MM 150-450 code = 756) MEAN PLATELET VOLUME (BEAKER) 10.3 fL 9.4-12.4 (test code = 754) NUCLEATED RED BLOOD CELLS 0 /100 WBC 0-0 (BEAKER) (test code = 413) NEUTROPHILS RELATIVE PERCENT 85 % (BEAKER) (test code = 429) LYMPHOCYTES RELATIVE PERCENT 8 % (BEAKER) (test code = 430) MONOCYTES RELATIVE PERCENT 4 % (BEAKER) (test code = 431) EOSINOPHILS RELATIVE PERCENT 2 % (BEAKER) (test code = 432) BASOPHILS RELATIVE PERCENT 0 % (BEAKER) (test code = 437) NEUTROPHILS ABSOLUTE COUNT 7.15 K/ L 1.78-5.38 H (BEAKER) (test code = 670) LYMPHOCYTES ABSOLUTE COUNT 0.69 K/ L 1.32-3.57 L (BEAKER) (test code = 414) MONOCYTES ABSOLUTE COUNT (BEAKER) 0.36 K/ L 0.30-0.82 (test code = 415) EOSINOPHILS ABSOLUTE COUNT 0.16 K/ L 0.04-0.54 (BEAKER) (test code = 416) BASOPHILS ABSOLUTE COUNT (BEAKER) 0.02 K/ L 0.01-0.08 (test code = 417) IMMATURE GRANULOCYTES-RELATIVE 1 % 0-1 PERCENT (BEAKER) (test code = 2805) BASIC METABOLIC [id number] 00:30:20 Test Item Value Reference Range Interpretation Comments SODIUM (BEAKER) 135 meq/L 136-145 L (test code = 381) POTASSIUM (BEAKER) 3.0 meq/L 3.5-5.1 L (test code = 379) CHLORIDE (BEAKER) 92 meq/L 98-107 L (test code = 382) CO2 (BEAKER) (test 32 meq/L 22-29 H code = 355) BLOOD UREA NITROGEN 16 mg/dL 7-21 (BEAKER) (test code = 354) CREATININE (BEAKER) 1.04 mg/dL 0.57-1.25 (test code = 358) GLUCOSE RANDOM 106 mg/dL 70-105 H (BEAKER) (test code = 652) CALCIUM (BEAKER) 8.8 mg/dL 8.4-10.2 (test code = 697) EGFR (BEAKER) (test 76 mL/min/1.73 ESTIMA NEELA GFR IS code = 1092) sq m NOT ACCURATE CREATININE CLEARANCE IN PREDICTING GLOMERULAR FILTRATION RATE . ESTIMATED GFR I S NOT APPLICABLE FOR DIALYSIS PATIEN TS. Stitcher Hand ID - SOCO [id number] 00:30:20 Test Item Value Reference Range Interpretation Comments MAGNESIUM (BEAKER) (test code = 2.3 mg/dL 1.6-2.6 627) Stitcher Hand ID - SOCO LOXYGEN SATURATION, [id number] 00:28:20 Test Item Value Reference Range Interpretation Comments O2 SATURATION (MEASURED) (BEAKER) 89.5 % (test code = 1455) [id number] 14:23:20 Test Item Value Reference Range Interpretation Comments PHOSPHORUS (BEAKER) (test code = 2.8 mg/dL 2.3-4.7 604) Stitcher Hand ID - BRANTSONBASIC METABOLIC [id number] 14:23:19 Test Item Value Reference Range Interpretation Comments SODIUM (BEAKER) 134 meq/L 136-145 L (test code = 381) POTASSIUM (BEAKER) 3.2 meq/L 3.5-5.1 L (test code = 379) CHLORIDE (BEAKER) 93 meq/L 98-107 L (test code = 382) CO2 (BEAKER) (test 32 meq/L 22-29 H code = 355) BLOOD UREA NITROGEN 16 mg/dL 7-21 (BEAKER) (test code = 354) CREATININE (BEAKER) 1.01 mg/dL 0.57-1.25 (test code = 358) GLUCOSE RANDOM 112 mg/dL 70-105 H (BEAKER) (test code = 652) CALCIUM (BEAKER) 8.5 mg/dL 8.4-10.2 (test code = 697) EGFR (BEAKER) (test 78 mL/min/1.73 ESTIMA NEELA GFR IS code = 1092) sq m NOT ACCURATE CREATININE CLEARANCE IN PREDICTING GLOMERULAR FILTRATION RATE . ESTIMATED GFR I S NOT APPLICABLE FOR DIALYSIS PATIEN TS. Stitcher Hand ID - [id number] 14:23:19 Test Item Value Reference Range Interpretation Comments MAGNESIUM (BEAKER) (test code = 1.9 mg/dL 1.6-2.6 627) Stitcher Hand ID - BRANTSONOXYGEN SATURATION, [id number] 14:11:10 Test Item Value Reference Range Interpretation Comments O2 SATURATION (MEASURED) (BEAKER) 47.2 % (test code = 1455) OXYGEN SATURATION, [id number] 12:08:54 Test Item Value Reference Range Interpretation Comments O2 SATURATION (MEASURED) (BEAKER) 34.9 % (test code = 1455) CBC W/PLT COUNT & AUTO [id number] 07:14:54 Test Item Value Reference Range Interpretation Comments WHITE BLOOD CELL COUNT 8.0 K/ L 3.5-10.5 (BEAKER) (test code = 775) RED BLOOD CELL COUNT 3.37 M/ L 4.63-6.08 L (BEAKER) (test code = 761) HEMOGLOBIN (BEAKER) 10.2 GM/DL 13.7-17.5 L (test code = 410) HEMATOCRIT (BEAKER) 32.8 % 40.1-51.0 L (test code = 411) MEAN CORPUSCULAR 97.3 fL 79.0-92.2 H VOLUME (BEAKER) (test code = 753) MEAN CORPUSCULAR 30.3 pg 25.7-32.2 HEMOGLOBIN (BEAKER) (test code = 751) MEAN CORPUSCULAR 31.1 GM/DL 32.3-36.5 L HEMOGLOBIN CONC (BEAKER) (test code = 752) RED CELL DISTRIBUTION 25.3 % 11.6-14.4 H WIDTH (BEAKER) (test code = 412) PLATELET COUNT 210 K/CU MM 150-450 (BEAKER) (test code = 756) MEAN PLATELET VOLUME Unable to report due (BEAKER) (test code = to abn ormal Platelet 754) population distribution. NUCLEATED RED BLOOD 0 /100 WBC 0-0 CELLS (BEAKER) (test code = 413) NEUTROPHILS RELATIVE 79 % PERCENT (BEAKER) (test code = 429) LYMPHOCYTES RELATIVE 15 % PERCENT (BEAKER) (test code = 430) MONOCYTES RELATIVE 3 % PERCENT (BEAKER) (test code = 431) EOSINOPHILS RELATIVE 2 % PERCENT (BEAKER) (test code = 432) BASOPHILS RELATIVE 0 % PERCENT (BEAKER) (test code = 437) NEUTROPHILS ABSOLUTE 6.31 K/ L 1.78-5.38 H COUNT (BEAKER) (test code = 670) LYMPHOCYTES ABSOLUTE 1.16 K/ L 1.32-3.57 L COUNT (BEAKER) (test code = 414) MONOCYTES ABSOLUTE 0.27 K/ L 0.30-0.82 L COUNT (BEAKER) (test code = 415) EOSINOPHILS ABSOLUTE 0.19 K/ L 0.04-0.54 COUNT (BEAKER) (test code = 416) BASOPHILS ABSOLUTE 0.03 K/ L 0.01-0.08 COUNT (BEAKER) (test code = 417) IMMATURE 1 % 0-1 GRANULOCYTES-RELATIVE PERCENT (BEAKER) (test code = 2801) HEPATIC FUNCTION [id number] 07:08:14 Test Item Value Reference Range Interpretation Comments TOTAL PROTEIN (BEAKER) (test code = 6.7 gm/dL 6.0-8.3 770) ALBUMIN (BEAKER) (test code = 1145) 3.8 g/dL 3.5-5.0 BILIRUBIN TOTAL (BEAKER) (test code 1.5 mg/dL 0.2-1.2 H = 377) BILIRUBIN DIRECT (BEAKER) (test 1.0 mg/dL 0.1-0.5 H code = 706) ALKALINE PHOSPHATASE (BEAKER) (test 166 U/L 40-150 H code = 346) AST (SGOT) (BEAKER) (test code = 482 U/L 5-34 H 353) ALT (SGPT) (BEAKER) (test code = 1561 U/L 6-55 H 347) Stitcher Hand ID - [id number] 07:08:13 Test Item Value Reference Range Interpretation Comments MAGNESIUM (BEAKER) (test code = 2.0 mg/dL 1.6-2.6 627) Stitcher Hand ID - [id number] 07:08:13 Test Item Value Reference Range Interpretation Comments PHOSPHORUS (BEAKER) (test code = 2.5 mg/dL 2.3-4.7 604) Stitcher Hand ID - jrlBASIC METABOLIC [id number] 07:08:10 Test Item Value Reference Range Interpretation Comments SODIUM (BEAKER) 134 meq/L 136-145 L (test code = 381) POTASSIUM (BEAKER) 3.0 meq/L 3.5-5.1 L (test code = 379) CHLORIDE (BEAKER) 93 meq/L 98-107 L (test code = 382) CO2 (BEAKER) (test 33 meq/L 22-29 H code = 355) BLOOD UREA NITROGEN 17 mg/dL 7-21 (BEAKER) (test code = 354) CREATININE (BEAKER) 1.00 mg/dL 0.57-1.25 (test code = 358) GLUCOSE RANDOM 106 mg/dL 70-105 H (BEAKER) (test code = 652) CALCIUM (BEAKER) 8.4 mg/dL 8.4-10.2 (test code = 697) EGFR (BEAKER) (test 79 mL/min/1.73 ESTIMA NEELA GFR IS code = 1092) sq m NOT ACCURATE CREATININE CLEARANCE IN PREDICTING GLOMERULAR FILTRATION RATE . ESTIMATED GFR I S NOT APPLICABLE FOR DIALYSIS PATIEN TS. Stitcher Hand ID - jrlT4, [id number] 06:45:03 Test Item Value Reference Range Interpretation Comments FREE T4 (BEAKER) (test code = 655) 1.25 ng/dL 0.70-1.48 Stitcher Hand ID - jrlTSH/FREE T4 IF [id number] 06:08:57 Test Item Value Reference Range Interpretation Comments THYROID STIMULATING HORMONE 5.264 uIU/mL 0.350-4.940 H (BEAKER) (test code = 772) Stitcher Hand ID - jrlLACTIC ACID, [id number] 05:48:15 Test Item Value Reference Range Interpretation Comments LACTATE BLOOD VENOUS 2.04 mmol/L 0.50-2.20 Specime n slightly (2) (CLEMENTINA) (test hemolyzed code = 2872) Stitcher Hand ID - jrlB-TYPE NATRIURETIC FACTOR (BNP)2021-07-09 05:47:13 Test Item Value Reference Range Interpretation Comments B-TYPE NATRIURETIC PEPTIDE 1307 pg/mL 0-100 H (CLEMENTINA) (test code = 700) Stitcher Hand ID - jrlSARS-COV2/RT-PCR ([facility])2021-07-09 02:05:48 Test Item Value Reference Range Interpretation Comments SARS-COV2/RT-PCR (test code = Negative Negative [id number]) Negative result for this test determines that SARS-CoV-2 RNA was not present in the specimen above the Limit of Detection (LOD). However, Negative results do not preclude SARS-CoV-2 infection and should not be used as the sole basis for treatment or patient management decisions. Negative results must be combined with clinical observations, patient history, and epidemiological information. A false negative result may occur if a specimen is improperly collected, transported, or handled. A false negative result should be considered if patient's recent exposures or clinical presentation indicate that COVID-19 (SARS-CoV-2) is likely and diagnostic tests for other causes of illness are negative. Re-testing should be considered in cases of suspected false negatives.The limit of detection for this assay is 100 copies/mL.This SARS-CoV-2 test is a real-time RT_PCR test intended for the qualitative detection of nucleic acid from SARS-CoV-2 in a nasopharyngeal swab specimen collected from individuals suspected of COVID-19 by their healthcare provider.This test has not been Food and Drug Administration (FDA) cleared or approved. This is a modified version of an approved Emergency Use Authorization (EUA) and is in the process of review by the FDA. Once authorized by the FDA, the issued EUA will be effective until the declaration that circumstances exist justifying the authorization of the emergency use of in vitro diagnostic tests for detection and/or diagnosis of COVID-19 is terminated under Section 564(b)(2) of the Act or the EUA is revoked under Section 564(g) of the Act.Testing was performed using the [employer] SARS-CoV-2 assay.Fact Sheet for Healthcare Providers:https://www.[employer]/eduardo/RT SARS-CoV-2 HCP Fact Sheet 51- 324839.pdfFact Sheet for Healthcare Patients:https://www.molecular.[place]/eduardo/RT SARS-CoV-2 Patient Fact Sheet EN 51-167846Y6.[id number] 22:31:46 Test Item Value Reference Range Interpretation Comments MAGNESIUM (BEAKER) (test code = 2.1 mg/dL 1.6-2.6 627) Stitcher Hand ID - ROSEMARYBASIC METABOLIC [id number] 22:31:45 Test Item Value Reference Range Interpretation Comments SODIUM (BEAKER) 132 meq/L 136-145 L (test code = 381) POTASSIUM (BEAKER) 3.2 meq/L 3.5-5.1 L (test code = 379) CHLORIDE (BEAKER) 90 meq/L 98-107 L (test code = 382) CO2 (BEAKER) (test 33 meq/L 22-29 H code = 355) BLOOD UREA NITROGEN 19 mg/dL 7-21 (BEAKER) (test code = 354) CREATININE (BEAKER) 1.11 mg/dL 0.57-1.25 (test code = 358) GLUCOSE RANDOM 93 mg/dL 70-105 (BEAKER) (test code = 652) CALCIUM (BEAKER) 8.5 mg/dL 8.4-10.2 (test code = 697) EGFR (BEAKER) (test 70 mL/min/1.73 ESTIMA NEELA GFR IS code = 1092) sq m NOT ACCURATE CREATININE CLEARANCE IN PREDICTING GLOMERULAR FILTRATION RATE . ESTIMATED GFR I S NOT APPLICABLE FOR DIALYSIS PATIEN TS. Stitcher Hand ID - ROSEMARYOXYGEN SATURATION, [id number] 21:47:15 Test Item Value Reference Range Interpretation Comments O2 SATURATION (MEASURED) (BEAKER) 49.2 % (test code = 1455) [id number] 16:41:13 Test Item Value Reference Range Interpretation Comments POTASSIUM (BEAKER) (test code = 4.3 meq/L 3.5-5.1 379) Stitcher Hand ID Sal BENITEZ [id number] 16:41:12 Test Item Value Reference Range Interpretation Comments PHOSPHORUS (BEAKER) (test code = 1.8 mg/dL 2.3-4.7 L 604) Stitcher Hand ID - EMMANUEL FBASIC METABOLIC [id number] 12:37:42 Test Item Value Reference Range Interpretation Comments SODIUM (BEAKER) 132 meq/L 136-145 L (test code = 381) POTASSIUM (BEAKER) 3.6 meq/L 3.5-5.1 (test code = 379) CHLORIDE (BEAKER) 89 meq/L 98-107 L (test code = 382) CO2 (BEAKER) (test 34 meq/L 22-29 H code = 355) BLOOD UREA NITROGEN 20 mg/dL 7-21 (BEAKER) (test code = 354) CREATININE (BEAKER) 1.06 mg/dL 0.57-1.25 (test code = 358) GLUCOSE RANDOM 126 mg/dL 70-105 H (BEAKER) (test code = 652) CALCIUM (BEAKER) 8.5 mg/dL 8.4-10.2 (test code = 697) EGFR (BEAKER) (test 74 mL/min/1.73 ESTIMA NEELA GFR IS code = 1092) sq m NOT ACCURATE CREATININE CLEARANCE IN PREDICTING GLOMERULAR FILTRATION RATE . ESTIMATED GFR I S NOT APPLICABLE FOR DIALYSIS PATIEN TS. Stitcher Hand ID - EMMANUEL [id number] 12:37:42 Test Item Value Reference Range Interpretation Comments MAGNESIUM (BEAKER) (test code = 1.8 mg/dL 1.6-2.6 627) Stitcher Hand ID - EMMANUEL LEWISYGEN SATURATION, [id number] 12:12:31 Test Item Value Reference Range Interpretation Comments O2 SATURATION (MEASURED) (BEAKER) 53.1 % (test code = 1455) RAD, CHEST, 1 VIEW, NON [id number] 09:43:00Reason for exam:->shortness of breathShould this be performed at the bedside?->Yes [facility] 1970 Sex: MFINAL REPORT TECHNIQUE: Frontal view of the chest. INDICATION: shortness of breath COMPARISON: 07/07/2021. FINDINGS: LINES/TUBES: Right IJ central venous catheter tip terminates over thesuperior vena cava. There is a left subclavian approach biventricular pacer/ICD.. LUNGS: There is pulmonary vascular congestion. There are small bilateral pleural effusions. No pneumothorax.. HEART ANDMEDIASTINUM: The cardiomediastinal silhouette is enlarged, unchanged. SOFT TISSUES AND BONES: Unremarkable. IMPRESSION:Cardiomegaly with pulmonary edema and small bilateral pleural effusions. Signed: Ivanna Stockton Verified Date/Time: 07/08/2021 09:43:39 [id number] 09:40:11 Test Item Value Reference Range Interpretation Comments POTASSIUM (BEAKER) (test code = 3.4 meq/L 3.5-5.1 L 379) Stitcher Hand ID - [place] FB-TYPE NATRIURETIC FACTOR (BNP)2021-07-08 04:36:02 Test Item Value Reference Range Interpretation Comments B-TYPE NATRIURETIC PEPTIDE 1912 pg/mL 0-100 H (BEAKER) (test code = 700) Stitcher Hand ID - JRLHEPATIC FUNCTION [id number] 04:32:19 Test Item Value Reference Range Interpretation Comments TOTAL PROTEIN (BEAKER) (test code = 6.8 gm/dL 6.0-8.3 770) ALBUMIN (BEAKER) (test code = 1145) 3.8 g/dL 3.5-5.0 BILIRUBIN TOTAL (BEAKER) (test code 2.3 mg/dL 0.2-1.2 H = 377) BILIRUBIN DIRECT (BEAKER) (test 1.4 mg/dL 0.1-0.5 H code = 706) ALKALINE PHOSPHATASE (BEAKER) (test 171 U/L 40-150 H code = 346) AST (SGOT) (BEAKER) (test code = 1227 U/L 5-34 H 353) ALT (SGPT) (BEAKER) (test code = 1999 U/L 6-55 H 347) Stitcher Hand ID - SO MSpecimen slightly ictericBASIC METABOLIC [id number] 04:32:18 Test Item Value Reference Range Interpretation Comments SODIUM (BEAKER) 133 meq/L 136-145 L (test code = 381) POTASSIUM (BEAKER) 3.1 meq/L 3.5-5.1 L (test code = 379) CHLORIDE (BEAKER) 88 meq/L 98-107 L (test code = 382) CO2 (BEAKER) (test 36 meq/L 22-29 H code = 355) BLOOD UREA NITROGEN 21 mg/dL 7-21 (BEAKER) (test code = 354) CREATININE (BEAKER) 1.20 mg/dL 0.57-1.25 (test code = 358) GLUCOSE RANDOM 119 mg/dL 70-105 H (BEAKER) (test code = 652) CALCIUM (BEAKER) 8.5 mg/dL 8.4-10.2 (test code = 697) EGFR (BEAKER) (test 64 mL/min/1.73 ESTIMA NEELA GFR IS code = 1092) sq m NOT ACCURATE CREATININE CLEARANCE IN PREDICTING GLOMERULAR FILTRATION RATE . ESTIMATED GFR I S NOT APPLICABLE FOR DIALYSIS PATIEN TS. Stitcher Hand ID Sal RIZZO MSpecimen slightly [id number] 04:32:17 Test Item Value Reference Range Interpretation Comments MAGNESIUM (BEAKER) (test code = 2.3 mg/dL 1.6-2.6 627) Stitcher Hand ID - SO [id number] 04:32:17 Test Item Value Reference Range Interpretation Comments PHOSPHORUS (BEAKER) (test code = 3.1 mg/dL 2.3-4.7 604) Stitcher Hand ID - SO MCBC W/PLT COUNT & AUTO [id number] 04:17:44 Test Item Value Reference Range Interpretation Comments WHITE BLOOD CELL COUNT 7.2 K/ L 3.5-10.5 (BEAKER) (test code = 775) RED BLOOD CELL COUNT 3.26 M/ L 4.63-6.08 L (BEAKER) (test code = 761) HEMOGLOBIN (BEAKER) 9.7 GM/DL 13.7-17.5 L (test code = 410) HEMATOCRIT (BEAKER) 31.9 % 40.1-51.0 L (test code = 411) MEAN CORPUSCULAR 97.9 fL 79.0-92.2 H Discordant MCV VOLUME (BEAKER) (test result s compared to code = 753) previous result s; clinical correl ation required. MEAN CORPUSCULAR 29.8 pg 25.7-32.2 HEMOGLOBIN (BEAKER) (test code = 751) MEAN CORPUSCULAR 30.4 GM/DL 32.3-36.5 L HEMOGLOBIN CONC (BEAKER) (test code = 752) RED CELL DISTRIBUTION 23.7 % 11.6-14.4 H WIDTH (BEAKER) (test code = 412) PLATELET COUNT 186 K/CU MM 150-450 (BEAKER) (test code = 756) MEAN PLATELET VOLUME 10.4 fL 9.4-12.4 (BEAKER) (test code = 754) NUCLEATED RED BLOOD 0 /100 WBC 0-0 CELLS (BEAKER) (test code = 413) NEUTROPHILS RELATIVE 84 % PERCENT (BEAKER) (test code = 429) LYMPHOCYTES RELATIVE 10 % PERCENT (BEAKER) (test code = 430) MONOCYTES RELATIVE 4 % PERCENT (BEAKER) (test code = 431) EOSINOPHILS RELATIVE 2 % PERCENT (BEAKER) (test code = 432) BASOPHILS RELATIVE 0 % PERCENT (BEAKER) (test code = 437) NEUTROPHILS ABSOLUTE 5.98 K/ L 1.78-5.38 H COUNT (BEAKER) (test code = 670) LYMPHOCYTES ABSOLUTE 0.74 K/ L 1.32-3.57 L COUNT (BEAKER) (test code = 414) MONOCYTES ABSOLUTE 0.28 K/ L 0.30-0.82 L COUNT (BEAKER) (test code = 415) EOSINOPHILS ABSOLUTE 0.12 K/ L 0.04-0.54 COUNT (BEAKER) (test code = 416) BASOPHILS ABSOLUTE 0.01 K/ L 0.01-0.08 COUNT (BEAKER) (test code = 417) IMMATURE 0 % 0-1 GRANULOCYTES-RELATIVE PERCENT (BEAKER) (test code = 2801) LACTIC ACID, [id number] 04:17:34 Test Item Value Reference Range Interpretation Comments LACTATE BLOOD VENOUS 0.69 mmol/L 0.50-2.20 Specime n slightly (2) (BEAKER) (test hemolyzed code = 2872) Stitcher Hand ID Sal RIZZO MOXYGEN SATURATION, [id number] 00:10:21 Test Item Value Reference Range Interpretation Comments O2 SATURATION (MEASURED) (BEAKER) 72.1 % (test code = 1455) BASIC METABOLIC [id number] 00:06:22 Test Item Value Reference Range Interpretation Comments SODIUM (BEAKER) 133 meq/L 136-145 L (test code = 381) POTASSIUM (BEAKER) 3.0 meq/L 3.5-5.1 L (test code = 379) CHLORIDE (BEAKER) 88 meq/L 98-107 L (test code = 382) CO2 (BEAKER) (test 34 meq/L 22-29 H code = 355) BLOOD UREA NITROGEN 23 mg/dL 7-21 H (BEAKER) (test code = 354) CREATININE (BEAKER) 1.37 mg/dL 0.57-1.25 H (test code = 358) GLUCOSE RANDOM 126 mg/dL 70-105 H (BEAKER) (test code = 652) CALCIUM (BEAKER) 8.4 mg/dL 8.4-10.2 (test code = 697) EGFR (BEAKER) (test 55 mL/min/1.73 ESTIMA NEELA GFR IS code = 1092) sq m NOT ACCURATE CREATININE CLEARANCE IN PREDICTING GLOMERULAR FILTRATION RATE . ESTIMATED GFR I S NOT APPLICABLE FOR DIALYSIS PATIEN TS. Stitcher Hand ID Sal RIZZO MSpecimen slightly [id number] 00:06:21 Test Item Value Reference Range Interpretation Comments MAGNESIUM (BEAKER) (test code = 1.9 mg/dL 1.6-2.6 627) Stitcher Hand ID Sal RIZZO MBASIC METABOLIC [id number] 17:23:50 Test Item Value Reference Range Interpretation Comments SODIUM (BEAKER) 129 meq/L 136-145 L (test code = 381) POTASSIUM (BEAKER) 3.7 meq/L 3.5-5.1 (test code = 379) CHLORIDE (BEAKER) 86 meq/L 98-107 L (test code = 382) CO2 (BEAKER) (test 31 meq/L 22-29 H code = 355) BLOOD UREA NITROGEN 25 mg/dL 7-21 H (BEAKER) (test code = 354) CREATININE (BEAKER) 1.69 mg/dL 0.57-1.25 H (test code = 358) GLUCOSE RANDOM 135 mg/dL 70-105 H (BEAKER) (test code = 652) CALCIUM (BEAKER) 9.1 mg/dL 8.4-10.2 (test code = 697) EGFR (BEAKER) (test 43 mL/min/1.73 ESTIMA NEELA GFR IS code = 1092) sq m NOT ACCURATE CREATININE CLEARANCE IN PREDICTING GLOMERULAR FILTRATION RATE . ESTIMATED GFR I S NOT APPLICABLE FOR DIALYSIS PATIEN TS. Stitcher Hand ID - DBSpecimen slightly [id number] 17:23:49 Test Item Value Reference Range Interpretation Comments MAGNESIUM (BEAKER) (test code = 1.8 mg/dL 1.6-2.6 627) Stitcher Hand ID - [id number] 17:23:49 Test Item Value Reference Range Interpretation Comments PHOSPHORUS (BEAKER) (test code = 4.1 mg/dL 2.3-4.7 604) Stitcher Hand ID - DBLACTIC ACID, [id number] 17:13:12 Test Item Value Reference Range Interpretation Comments LACTATE BLOOD VENOUS (2) (BEAKER) 1.19 mmol/L 0.50-2.20 (test code = 2872) Stitcher Hand ID - DBSpecimen slightly ictericOXYGEN SATURATION, [id number] 17:05:43 Test Item Value Reference Range Interpretation Comments O2 SATURATION (MEASURED) (BEAKER) 74.4 % (test code = 1455) OXYGEN SATURATION, [id number] 12:46:17 Test Item Value Reference Range Interpretation Comments O2 SATURATION (MEASURED) (BEAKER) 71.1 % (test code = 1455) URINALYSIS W/ REFLEX URINE [id number] 11:54:02 Test Item Value Reference Range Interpretation Comments COLOR (BEAKER) (test code = 470) Yellow CLARITY (BEAKER) (test code = 469) Hazy SPECIFIC GRAVITY UA (BEAKER) (test 1.014 1.001-1.035 code = 468) PH UA (BEAKER) (test code = 467) 6.0 5.0-8.0 PROTEIN UA (BEAKER) (test code = 30 mg/dL Negative A 464) GLUCOSE UA (BEAKER) (test code = Negative Negative 365) KETONES UA (BEAKER) (test code = Negative Negative 371) BILIRUBIN UA (BEAKER) (test code = Negative Negative 462) BLOOD UA (BEAKER) (test code = 461) Negative Negative NITRITE UA (BEAKER) (test code = Negative Negative 465) LEUKOCYTE ESTERASE UA (BEAKER) Negative Negative (test code = 466) UROBILINOGEN UA (BEAKER) (test code 4.0 mg/dL 0.2-1.0 H = 463) RBC UA (BEAKER) (test code = 519) 1 /HPF WBC UA (BEAKER) (test code = 520) 1 /HPF BACTERIA (BEAKER) (test code = 517) None Seen MUCUS (BEAKER) (test code = 1574) Rare HYALINE CASTS (BEAKER) (test code = 27 /LPF 514) CRYSTALS, URINE (BEAKER) (test code None Seen = 1521) SOURCE(BEAKER) (test code = 2795) Stitcher Hand ID - [auto]Stitcher Hand ID - techBLOOD GAS, [id number] 11:52:15 Test Item Value Reference Range Interpretation Comments PH ARTERIAL (BEAKER) (test code = 7.47 7.35-7.45 H 383) PCO2 ARTERIAL (BEAKER) (test code 40 mm Hg 35-45 = 384) PO2 ARTERIAL (BEAKER) (test code = 95 mm Hg 80-90 H 385) O2 SATURATION ARTERIAL (BEAKER) 97.6 % 96.0-97.0 H (test code = 386) HCO3 ARTERIAL (BEAKER) (test code 28 mmol/L 21-29 = 388) BASE EXCESS ARTERIAL (BEAKER) 4.2 mmol/L -2.0-3.0 H (test code = 387) PATIENT TEMPERATURE (BEAKER) (test 37.0 code = 1818) FIO2 (BEAKER) (test code = 1819) 36.0 B-TYPE NATRIURETIC FACTOR (BNP)2021-07-07 11:49:16 Test Item Value Reference Range Interpretation Comments B-TYPE NATRIURETIC PEPTIDE (BEAKER) 821 pg/mL 0-100 H (test code = 700) Stitcher Hand ID - [place] FBASIC METABOLIC [id number] 11:47:55 Test Item Value Reference Range Interpretation Comments SODIUM (BEAKER) 125 meq/L 136-145 L (test code = 381) POTASSIUM (BEAKER) 4.7 meq/L 3.5-5.1 (test code = 379) CHLORIDE (BEAKER) 88 meq/L 98-107 L (test code = 382) CO2 (BEAKER) (test 25 meq/L 22-29 code = 355) BLOOD UREA NITROGEN 26 mg/dL 7-21 H (BEAKER) (test code = 354) CREATININE (BEAKER) 1.90 mg/dL 0.57-1.25 H (test code = 358) GLUCOSE RANDOM 122 mg/dL 70-105 H (BEAKER) (test code = 652) CALCIUM (BEAKER) 9.2 mg/dL 8.4-10.2 (test code = 697) EGFR (BEAKER) (test 38 mL/min/1.73 ESTIMA NEELA GFR IS code = 1092) sq m NOT ACCURATE CREATININE CLEARANCE IN PREDICTING GLOMERULAR FILTRATION RATE . ESTIMATED GFR I S NOT APPLICABLE FOR DIALYSIS PATIEN TS. Stitcher Hand ID Sal BENITEZ FSpecimen slightly [id number] 11:47:54 Test Item Value Reference Range Interpretation Comments MAGNESIUM (BEAKER) (test code = 2.0 mg/dL 1.6-2.6 627) Stitcher Hand ID Sal BENITEZ FLACTIC ACID, [id number] 11:30:51 Test Item Value Reference Range Interpretation Comments LACTATE BLOOD VENOUS (2) (BEAKER) 2.45 mmol/L 0.50-2.20 H (test code = 2872) Stitcher Hand ID Sal BENITEZ FSpecimen slightly ictericPOCT-GLUCOSE [id number] 09:45:02 Test Item Value Reference Range Interpretation Comments POC-GLUCOSE METER 117 mg/dL 70-110 H : TESTED A T [facility] 6720 (BEAKER) (test code = [place], 1538) [address]: Stitcher Hand/Techni ebenezer ID = [id number] for AG CHANTE SANTOYO BASIC METABOLIC [id number] 09:18:48 Test Item Value Reference Range Interpretation Comments SODIUM (BEAKER) 126 meq/L 136-145 L (test code = 381) POTASSIUM (BEAKER) 5.5 meq/L 3.5-5.1 H Specimen slightly (test code = 379) hemolyzed CHLORIDE (BEAKER) 89 meq/L 98-107 L (test code = 382) CO2 (BEAKER) (test 22 meq/L 22-29 code = 355) BLOOD UREA NITROGEN 26 mg/dL 7-21 H (BEAKER) (test code = 354) CREATININE (BEAKER) 1.96 mg/dL 0.57-1.25 H Specimen slightly (test code = 358) hemolyzed GLUCOSE RANDOM 152 mg/dL 70-105 H (BEAKER) (test code = 652) CALCIUM (BEAKER) 9.0 mg/dL 8.4-10.2 (test code = 697) EGFR (BEAKER) (test 36 mL/min/1.73 ESTIMA NEELA GFR IS code = 1092) sq m NOT ACCURATE CREATININE CLEARANCE IN PREDICTING GLOMERULAR FILTRATION RATE . ESTIMATED GFR I S NOT APPLICABLE FOR DIALYSIS PATIEN TS. Stitcher Hand ID - EMMANUEL FSpecimen slightly ictericRAD, CHEST, 1 VIEW, NON DEPT 2021-07-07 08:16:00Reason for exam:->chfShould this be performed at the bedside?->YesV[facility]IEGOName: DANA WEST : 1970 Sex: MFINAL REPORT RAD, CHEST, 1 VIEW, NON DEPT INDICATION: chf COMPARISON: Prior day's exam FINDINGS: Portable frontal view of the chest. IMPRESSION: Support Lines: Central catheter tip overlies the atriocaval junction. Pacer device. Lungs and pleura: Bibasilar atelectasis. No significant pneumothorax. Heart and mediastinum: Stable contours. Additional findings: None. Signed: Keila Sorot Verified Date/Time: 07/07/2021 08:16:27 Reading Location: [facility] Radiology ReadingRoom BASIC METABOLIC [id number] 05:40:01 Test Item Value Reference Range Interpretation Comments SODIUM (BEAKER) 128 meq/L 136-145 L (test code = 381) POTASSIUM (BEAKER) 6.1 meq/L 3.5-5.1 HH (test code = 379) CHLORIDE (BEAKER) 91 meq/L 98-107 L (test code = 382) CO2 (BEAKER) (test 22 meq/L 22-29 code = 355) BLOOD UREA NITROGEN 23 mg/dL 7-21 H (BEAKER) (test code = 354) CREATININE (BEAKER) 1.90 mg/dL 0.57-1.25 H (test code = 358) GLUCOSE RANDOM 108 mg/dL 70-105 H (BEAKER) (test code = 652) CALCIUM (BEAKER) 9.2 mg/dL 8.4-10.2 (test code = 697) EGFR (BEAKER) (test 38 mL/min/1.73 ESTIMA NEELA GFR IS code = 1092) sq m NOT ACCURATE CREATININE CLEARANCE IN PREDICTING GLOMERULAR FILTRATION RATE . ESTIMATED GFR I S NOT APPLICABLE FOR DIALYSIS PATIEN TS. Stitcher Hand ID - FAUZIA WSpecimen slightly [id number] 05:18:13 Test Item Value Reference Range Interpretation Comments MAGNESIUM (BEAKER) (test code = 2.3 mg/dL 1.6-2.6 627) Stitcher Hand ID - FAUZIA WHEPATIC FUNCTION [id number] 05:18:13 Test Item Value Reference Range Interpretation Comments TOTAL PROTEIN (BEAKER) (test code = 7.2 gm/dL 6.0-8.3 770) ALBUMIN (BEAKER) (test code = 1145) 4.1 g/dL 3.5-5.0 BILIRUBIN TOTAL (BEAKER) (test code 3.1 mg/dL 0.2-1.2 H = 377) BILIRUBIN DIRECT (BEAKER) (test 1.7 mg/dL 0.1-0.5 H code = 706) ALKALINE PHOSPHATASE (BEAKER) (test 199 U/L 40-150 H code = 346) AST (SGOT) (BEAKER) (test code = 679 U/L 5-34 H 353) ALT (SGPT) (BEAKER) (test code = 1216 U/L 6-55 H 347) Stitcher Hand ID - FAUZIA COLLINSpecimebrianda slightly ictericCBC W/PLT COUNT & AUTO [id number] 05:07:55 Test Item Value Reference Range Interpretation Comments WHITE BLOOD CELL COUNT (BEAKER) 11.4 K/ L 3.5-10.5 H (test code = 775) RED BLOOD CELL COUNT (BEAKER) 3.26 M/ L 4.63-6.08 L (test code = 761) HEMOGLOBIN (BEAKER) (test code = 9.7 GM/DL 13.7-17.5 L 410) HEMATOCRIT (BEAKER) (test code = 33.7 % 40.1-51.0 L 411) MEAN CORPUSCULAR VOLUME (BEAKER) 103.4 fL 79.0-92.2 H (test code = 753) MEAN CORPUSCULAR HEMOGLOBIN 29.8 pg 25.7-32.2 (BEAKER) (test code = 751) MEAN CORPUSCULAR HEMOGLOBIN CONC 28.8 GM/DL 32.3-36.5 L (BEAKER) (test code = 752) RED CELL DISTRIBUTION WIDTH 23.9 % 11.6-14.4 H (BEAKER) (test code = 412) PLATELET COUNT (BEAKER) (test 264 K/CU MM 150-450 code = 756) MEAN PLATELET VOLUME (BEAKER) 10.7 fL 9.4-12.4 (test code = 754) NUCLEATED RED BLOOD CELLS 1 /100 WBC 0-0 H (BEAKER) (test code = 413) NEUTROPHILS RELATIVE PERCENT 76 % (BEAKER) (test code = 429) LYMPHOCYTES RELATIVE PERCENT 13 % (BEAKER) (test code = 430) MONOCYTES RELATIVE PERCENT 9 % (BEAKER) (test code = 431) EOSINOPHILS RELATIVE PERCENT 0 % (BEAKER) (test code = 432) BASOPHILS RELATIVE PERCENT 0 % (BEAKER) (test code = 437) NEUTROPHILS ABSOLUTE COUNT 8.68 K/ L 1.78-5.38 H (BEAKER) (test code = 670) LYMPHOCYTES ABSOLUTE COUNT 1.48 K/ L 1.32-3.57 (BEAKER) (test code = 414) MONOCYTES ABSOLUTE COUNT (BEAKER) 1.03 K/ L 0.30-0.82 H (test code = 415) EOSINOPHILS ABSOLUTE COUNT 0.04 K/ L 0.04-0.54 (BEAKER) (test code = 416) BASOPHILS ABSOLUTE COUNT (BEAKER) 0.03 K/ L 0.01-0.08 (test code = 417) IMMATURE GRANULOCYTES-RELATIVE 1 % 0-1 PERCENT (BEAKER) (test code = 2801) [id number] 12:35:02 Test Item Value Reference Range Interpretation Comments MAGNESIUM (BEAKER) (test code = 2.0 mg/dL 1.6-2.6 627) Stitcher Hand ID - FAUZIA WBASIC METABOLIC [id number] 12:35:01 Test Item Value Reference Range Interpretation Comments SODIUM (BEAKER) 133 meq/L 136-145 L (test code = 381) POTASSIUM (BEAKER) 3.4 meq/L 3.5-5.1 L (test code = 379) CHLORIDE (BEAKER) 94 meq/L 98-107 L (test code = 382) CO2 (BEAKER) (test 29 meq/L 22-29 code = 355) BLOOD UREA NITROGEN 15 mg/dL 7-21 (BEAKER) (test code = 354) CREATININE (BEAKER) 1.08 mg/dL 0.57-1.25 (test code = 358) GLUCOSE RANDOM 143 mg/dL 70-105 H (BEAKER) (test code = 652) CALCIUM (BEAKER) 8.5 mg/dL 8.4-10.2 (test code = 697) EGFR (BEAKER) (test 72 mL/min/1.73 ESTIMA NEELA GFR IS code = 1092) sq m NOT ACCURATE CREATININE CLEARANCE IN PREDICTING GLOMERULAR FILTRATION RATE . ESTIMATED GFR I S NOT APPLICABLE FOR DIALYSIS PATIEN TS. Stitcher Hand ID Sal CAGE WCALCIUM, [id number] 05:48:25 Test Item Value Reference Range Interpretation Comments CALCIUM IONIZED (BEAKER) (test 1.07 mmol/L 1.12-1.27 L code = 698) PH, BLOOD (BEAKER) (test code = 7.41 1810) CBC W/PLT COUNT & AUTO [id number] 05:46:22 Test Item Value Reference Range Interpretation Comments WHITE BLOOD CELL COUNT (BEAKER) 7.4 K/ L 3.5-10.5 (test code = 775) RED BLOOD CELL COUNT (BEAKER) 3.14 M/ L 4.63-6.08 L (test code = 761) HEMOGLOBIN (BEAKER) (test code = 9.2 GM/DL 13.7-17.5 L 410) HEMATOCRIT (BEAKER) (test code = 29.7 % 40.1-51.0 L 411) MEAN CORPUSCULAR VOLUME (BEAKER) 94.6 fL 79.0-92.2 H (test code = 753) MEAN CORPUSCULAR HEMOGLOBIN 29.3 pg 25.7-32.2 (BEAKER) (test code = 751) MEAN CORPUSCULAR HEMOGLOBIN CONC 31.0 GM/DL 32.3-36.5 L (BEAKER) (test code = 752) RED CELL DISTRIBUTION WIDTH 23.5 % 11.6-14.4 H (BEAKER) (test code = 412) PLATELET COUNT (BEAKER) (test 187 K/CU MM 150-450 code = 756) MEAN PLATELET VOLUME (BEAKER) 10.2 fL 9.4-12.4 (test code = 754) NUCLEATED RED BLOOD CELLS 0 /100 WBC 0-0 (BEAKER) (test code = 413) NEUTROPHILS RELATIVE PERCENT 74 % (BEAKER) (test code = 429) LYMPHOCYTES RELATIVE PERCENT 17 % (BEAKER) (test code = 430) MONOCYTES RELATIVE PERCENT 6 % (BEAKER) (test code = 431) EOSINOPHILS RELATIVE PERCENT 2 % (BEAKER) (test code = 432) BASOPHILS RELATIVE PERCENT 0 % (BEAKER) (test code = 437) NEUTROPHILS ABSOLUTE COUNT 5.46 K/ L 1.78-5.38 H (BEAKER) (test code = 670) LYMPHOCYTES ABSOLUTE COUNT 1.25 K/ L 1.32-3.57 L (BEAKER) (test code = 414) MONOCYTES ABSOLUTE COUNT (BEAKER) 0.47 K/ L 0.30-0.82 (test code = 415) EOSINOPHILS ABSOLUTE COUNT 0.14 K/ L 0.04-0.54 (BEAKER) (test code = 416) BASOPHILS ABSOLUTE COUNT (BEAKER) 0.02 K/ L 0.01-0.08 (test code = 417) IMMATURE GRANULOCYTES-RELATIVE 1 % 0-1 PERCENT (BEAKER) (test code = 2801) HEPATIC FUNCTION [id number] 05:19:49 Test Item Value Reference Range Interpretation Comments TOTAL PROTEIN (BEAKER) (test code = 6.6 gm/dL 6.0-8.3 770) ALBUMIN (BEAKER) (test code = 1145) 3.8 g/dL 3.5-5.0 BILIRUBIN TOTAL (BEAKER) (test code 1.6 mg/dL 0.2-1.2 H = 377) BILIRUBIN DIRECT (BEAKER) (test 0.9 mg/dL 0.1-0.5 H code = 706) ALKALINE PHOSPHATASE (BEAKER) (test 161 U/L 40-150 H code = 346) AST (SGOT) (BEAKER) (test code = 162 U/L 5-34 H 353) ALT (SGPT) (BEAKER) (test code = 721 U/L 6-55 H 347) Stitcher Hand ID Sal CAGE [id number] 05:19:48 Test Item Value Reference Range Interpretation Comments MAGNESIUM (BEAKER) (test code = 2.1 mg/dL 1.6-2.6 627) Stitcher Hand ID Sal CAGE [id number] 05:19:48 Test Item Value Reference Range Interpretation Comments PHOSPHORUS (BEAKER) (test code = 2.8 mg/dL 2.3-4.7 604) Stitcher Hand ID Sal CAGE WCOMPREHENSIVE METABOLIC [id number] 05:19:47 Test Item Value Reference Range Interpretation Comments TOTAL PROTEIN 6.6 gm/dL 6.0-8.3 (BEAKER) (test code = 770) ALBUMIN (BEAKER) 3.8 g/dL 3.5-5.0 (test code = 1145) ALKALINE PHOSPHATASE 161 U/L 40-150 H (BEAKER) (test code = 346) BILIRUBIN TOTAL 1.6 mg/dL 0.2-1.2 H (BEAKER) (test code = 377) SODIUM (BEAKER) (test 137 meq/L 136-145 code = 381) POTASSIUM (BEAKER) 4.2 meq/L 3.5-5.1 (test code = 379) CHLORIDE (BEAKER) 96 meq/L 98-107 L (test code = 382) CO2 (BEAKER) (test 30 meq/L 22-29 H code = 355) BLOOD UREA NITROGEN 15 mg/dL 7-21 (BEAKER) (test code = 354) CREATININE (BEAKER) 1.03 mg/dL 0.57-1.25 (test code = 358) GLUCOSE RANDOM 95 mg/dL 70-105 (BEAKER) (test code = 652) CALCIUM (BEAKER) 8.6 mg/dL 8.4-10.2 (test code = 697) AST (SGOT) (BEAKER) 162 U/L 5-34 H (test code = 353) ALT (SGPT) (BEAKER) 721 U/L 6-55 H (test code = 347) EGFR (BEAKER) (test 76 mL/min/1.73 ESTIMA NEELA GFR IS code = 1092) sq m NOT ACCURATE CREATININE CLEARANCE IN PREDICTING GLOMERULAR FILTRATION RATE . ESTIMATED GFR I S NOT APPLICABLE FOR DIALYSIS PATIEN TS. Stitcher Hand ID - FAUZIA WBASIC METABOLIC [id number] 20:25:56 Test Item Value Reference Range Interpretation Comments SODIUM (BEAKER) 137 meq/L 136-145 (test code = 381) POTASSIUM (BEAKER) 4.3 meq/L 3.5-5.1 (test code = 379) CHLORIDE (BEAKER) 95 meq/L 98-107 L (test code = 382) CO2 (BEAKER) (test 29 meq/L 22-29 code = 355) BLOOD UREA NITROGEN 16 mg/dL 7-21 (BEAKER) (test code = 354) CREATININE (BEAKER) 1.19 mg/dL 0.57-1.25 (test code = 358) GLUCOSE RANDOM 129 mg/dL 70-105 H (BEAKER) (test code = 652) CALCIUM (BEAKER) 9.0 mg/dL 8.4-10.2 (test code = 697) EGFR (BEAKER) (test 65 mL/min/1.73 ESTIMA NEELA GFR IS code = 1092) sq m NOT ACCURATE CREATININE CLEARANCE IN PREDICTING GLOMERULAR FILTRATION RATE . ESTIMATED GFR I S NOT APPLICABLE FOR DIALYSIS PATIEN TS. Stitcher Hand ID - [id number] 20:25:56 Test Item Value Reference Range Interpretation Comments MAGNESIUM (BEAKER) (test code = 2.4 mg/dL 1.6-2.6 627) Stitcher Hand ID - DBBASIC METABOLIC [id number] 13:19:56 Test Item Value Reference Range Interpretation Comments SODIUM (BEAKER) 136 meq/L 136-145 (test code = 381) POTASSIUM (BEAKER) 3.4 meq/L 3.5-5.1 L (test code = 379) CHLORIDE (BEAKER) 96 meq/L 98-107 L (test code = 382) CO2 (BEAKER) (test 27 meq/L 22-29 code = 355) BLOOD UREA NITROGEN 15 mg/dL 7-21 (BEAKER) (test code = 354) CREATININE (BEAKER) 0.96 mg/dL 0.57-1.25 (test code = 358) GLUCOSE RANDOM 137 mg/dL 70-105 H (BEAKER) (test code = 652) CALCIUM (BEAKER) 8.8 mg/dL 8.4-10.2 (test code = 697) EGFR (BEAKER) (test 83 mL/min/1.73 ESTIMA NEELA GFR IS code = 1092) sq m NOT ACCURATE CREATININE CLEARANCE IN PREDICTING GLOMERULAR FILTRATION RATE . ESTIMATED GFR I S NOT APPLICABLE FOR DIALYSIS PATIEN TS. Stitcher Hand ID - [id number] 13:19:56 Test Item Value Reference Range Interpretation Comments MAGNESIUM (BEAKER) (test code = 2.0 mg/dL 1.6-2.6 627) Stitcher Hand ID - DBHEPATIC FUNCTION [id number] 05:25:12 Test Item Value Reference Range Interpretation Comments TOTAL PROTEIN (BEAKER) 6.8 gm/dL 6.0-8.3 Speci men slightly (test code = 770) hemolyzed ALBUMIN (BEAKER) (test 3.8 g/dL 3.5-5.0 Speci men slightly code = 1145) hemolyzed BILIRUBIN TOTAL 1.5 mg/dL 0.2-1.2 H Specimen sli ghtly (BEAKER) (test code = hemoly zed 377) BILIRUBIN DIRECT 0.8 mg/dL 0.1-0.5 H Specimen sl ightly (BEAKER) (test code = hemoly zed 706) ALKALINE PHOSPHATASE 160 U/L 40-150 H (BEAKER) (test code = 346) AST (SGOT) (BEAKER) 180 U/L 5-34 H Specimen slightly (test code = 353) hemolyzed ALT (SGPT) (BEAKER) 843 U/L 6-55 H Specimen slightly (test code = 347) hemolyzed Stitcher Hand ID - ISREAL [id number] 05:25:11 Test Item Value Reference Range Interpretation Comments MAGNESIUM (BEAKER) 1.9 mg/dL 1.6-2.6 Specimen slightly (test code = 627) hemolyzed Stitcher Hand ID - ISREAL GBASIC METABOLIC [id number] 05:25:11 Test Item Value Reference Range Interpretation Comments SODIUM (BEAKER) 140 meq/L 136-145 (test code = 381) POTASSIUM (BEAKER) 3.7 meq/L 3.5-5.1 Specimen slightly (test code = 379) hemolyzed CHLORIDE (BEAKER) 96 meq/L 98-107 L (test code = 382) CO2 (BEAKER) (test 33 meq/L 22-29 H code = 355) BLOOD UREA NITROGEN 14 mg/dL 7-21 (BEAKER) (test code = 354) CREATININE (BEAKER) 0.93 mg/dL 0.57-1.25 Specimen slightly (test code = 358) hemolyzed GLUCOSE RANDOM 115 mg/dL 70-105 H (BEAKER) (test code = 652) CALCIUM (BEAKER) 8.8 mg/dL 8.4-10.2 (test code = 697) EGFR (BEAKER) (test 86 mL/min/1.73 ESTIMA NEELA GFR IS code = 1092) sq m NOT ACCURATE CREATININE CLEARANCE IN PREDICTING GLOMERULAR FILTRATION RATE . ESTIMATED GFR I S NOT APPLICABLE FOR DIALYSIS PATIEN TS. Stitcher Hand ID - ISREAL GPT/[id number] 05:10:09 Test Item Value Reference Range Interpretation Comments PROTIME (BEAKER) (test 17.3 seconds 11.9-14.2 H code = 759) INR (BEAKER) (test 1.44 See_Comment [Automat ed code = 370) message] The sy stem which generated this result transmitted reference range : <=5.90. The reference range was not used to interpret this result as normal/abnormal . PARTIAL THROMBOPLASTIN 38.7 seconds 22.5-36.0 H TIME (BEAKER) (test code = 760) RECOMMENDED COUMADIN/WARFARIN INR THERAPY RANGESSTANDARD DOSE: 2.0 - 3.0 Includes: PROPHYLAXIS for venous thrombosis, systemic embolization; TREATMENT for venous thrombosis and/or pulmonary embolus.HIGH RISK: Target INR is 2.5-3.5 for patients with mechanical heart valves.CBC W/PLT COUNT & AUTO [id number] 05:03:35 Test Item Value Reference Range Interpretation Comments WHITE BLOOD CELL COUNT (BEAKER) 7.1 K/ L 3.5-10.5 (test code = 775) RED BLOOD CELL COUNT (BEAKER) 3.16 M/ L 4.63-6.08 L (test code = 761) HEMOGLOBIN (BEAKER) (test code = 9.4 GM/DL 13.7-17.5 L 410) HEMATOCRIT (BEAKER) (test code = 30.4 % 40.1-51.0 L 411) MEAN CORPUSCULAR VOLUME (BEAKER) 96.2 fL 79.0-92.2 H (test code = 753) MEAN CORPUSCULAR HEMOGLOBIN 29.7 pg 25.7-32.2 (BEAKER) (test code = 751) MEAN CORPUSCULAR HEMOGLOBIN CONC 30.9 GM/DL 32.3-36.5 L (BEAKER) (test code = 752) RED CELL DISTRIBUTION WIDTH 23.8 % 11.6-14.4 H (BEAKER) (test code = 412) PLATELET COUNT (BEAKER) (test 202 K/CU MM 150-450 code = 756) MEAN PLATELET VOLUME (BEAKER) 10.2 fL 9.4-12.4 (test code = 754) NUCLEATED RED BLOOD CELLS 0 /100 WBC 0-0 (BEAKER) (test code = 413) NEUTROPHILS RELATIVE PERCENT 74 % (BEAKER) (test code = 429) LYMPHOCYTES RELATIVE PERCENT 16 % (BEAKER) (test code = 430) MONOCYTES RELATIVE PERCENT 6 % (BEAKER) (test code = 431) EOSINOPHILS RELATIVE PERCENT 3 % (BEAKER) (test code = 432) BASOPHILS RELATIVE PERCENT 0 % (BEAKER) (test code = 437) NEUTROPHILS ABSOLUTE COUNT 5.27 K/ L 1.78-5.38 (BEAKER) (test code = 670) LYMPHOCYTES ABSOLUTE COUNT 1.16 K/ L 1.32-3.57 L (BEAKER) (test code = 414) MONOCYTES ABSOLUTE COUNT (BEAKER) 0.42 K/ L 0.30-0.82 (test code = 415) EOSINOPHILS ABSOLUTE COUNT 0.23 K/ L 0.04-0.54 (BEAKER) (test code = 416) BASOPHILS ABSOLUTE COUNT (BEAKER) 0.02 K/ L 0.01-0.08 (test code = 417) IMMATURE GRANULOCYTES-RELATIVE 0 % 0-1 PERCENT (BEAKER) (test code = 2801) [id number] 20:59:09 Test Item Value Reference Range Interpretation Comments MAGNESIUM (BEAKER) (test code = 1.8 mg/dL 1.6-2.6 627) Stitcher Hand ID - DBBASIC METABOLIC [id number] 20:59:08 Test Item Value Reference Range Interpretation Comments SODIUM (BEAKER) 138 meq/L 136-145 (test code = 381) POTASSIUM (BEAKER) 3.6 meq/L 3.5-5.1 (test code = 379) CHLORIDE (BEAKER) 95 meq/L 98-107 L (test code = 382) CO2 (BEAKER) (test 32 meq/L 22-29 H code = 355) BLOOD UREA NITROGEN 15 mg/dL 7-21 (BEAKER) (test code = 354) CREATININE (BEAKER) 1.00 mg/dL 0.57-1.25 (test code = 358) GLUCOSE RANDOM 114 mg/dL 70-105 H (BEAKER) (test code = 652) CALCIUM (BEAKER) 8.9 mg/dL 8.4-10.2 (test code = 697) EGFR (BEAKER) (test 79 mL/min/1.73 ESTIMA NEELA GFR IS code = 1092) sq m NOT ACCURATE CREATININE CLEARANCE IN PREDICTING GLOMERULAR FILTRATION RATE . ESTIMATED GFR I S NOT APPLICABLE FOR DIALYSIS PATIEN TS. Stitcher Hand ID - [id number] 13:19:21 Test Item Value Reference Range Interpretation Comments MAGNESIUM (BEAKER) (test code = 2.0 mg/dL 1.6-2.6 627) Stitcher Hand ID - PIAYA LBASIC METABOLIC [id number] 13:19:20 Test Item Value Reference Range Interpretation Comments SODIUM (BEAKER) 136 meq/L 136-145 (test code = 381) POTASSIUM (BEAKER) 3.7 meq/L 3.5-5.1 (test code = 379) CHLORIDE (BEAKER) 93 meq/L 98-107 L (test code = 382) CO2 (BEAKER) (test 34 meq/L 22-29 H code = 355) BLOOD UREA NITROGEN 15 mg/dL 7-21 (BEAKER) (test code = 354) CREATININE (BEAKER) 1.04 mg/dL 0.57-1.25 (test code = 358) GLUCOSE RANDOM 124 mg/dL 70-105 H (BEAKER) (test code = 652) CALCIUM (BEAKER) 8.4 mg/dL 8.4-10.2 (test code = 697) EGFR (BEAKER) (test 76 mL/min/1.73 ESTIMA NEELA GFR IS code = 1092) sq m NOT ACCURATE CREATININE CLEARANCE IN PREDICTING GLOMERULAR FILTRATION RATE . ESTIMATED GFR I S NOT APPLICABLE FOR DIALYSIS PATIEN TS. Stitcher Hand ID - SOCO LPOCT-GLUCOSE [id number] 11:25:14 Test Item Value Reference Range Interpretation Comments POC-GLUCOSE METER 107 mg/dL 70-110 : TESTED A T [facility] 6720 (BEAKER) (test code = MELVINA Olson [facility], 1538) [id number]: Stitcher Hand/Techni ebenezer ID = [id number] for Ca r, Kamille [id number] 04:22:32 Test Item Value Reference Range Interpretation Comments MAGNESIUM (BEAKER) 1.8 mg/dL 1.6-2.6 Specimen slightly (test code = 627) hemolyzed Stitcher Hand ID - SOCO LBASIC METABOLIC [id number] 04:22:32 Test Item Value Reference Range Interpretation Comments SODIUM (BEAKER) 137 meq/L 136-145 (test code = 381) POTASSIUM (BEAKER) 3.9 meq/L 3.5-5.1 Specimen slightly (test code = 379) hemolyzed CHLORIDE (BEAKER) 95 meq/L 98-107 L (test code = 382) CO2 (BEAKER) (test 32 meq/L 22-29 H code = 355) BLOOD UREA NITROGEN 18 mg/dL 7-21 (BEAKER) (test code = 354) CREATININE (BEAKER) 1.13 mg/dL 0.57-1.25 Specimen slightly (test code = 358) hemolyzed GLUCOSE RANDOM 123 mg/dL 70-105 H (BEAKER) (test code = 652) CALCIUM (BEAKER) 8.3 mg/dL 8.4-10.2 L (test code = 697) EGFR (BEAKER) (test 69 mL/min/1.73 ESTIMA NEELA GFR IS code = 1092) sq m NOT ACCURATE CREATININE CLEARANCE IN PREDICTING GLOMERULAR FILTRATION RATE . ESTIMATED GFR I S NOT APPLICABLE FOR DIALYSIS PATIEN TS. Stitcher Hand ID - SOCO LHEPATIC FUNCTION [id number] 04:22:32 Test Item Value Reference Range Interpretation Comments TOTAL PROTEIN (BEAKER) 6.9 gm/dL 6.0-8.3 Speci men slightly (test code = 770) hemolyzed ALBUMIN (BEAKER) (test 3.8 g/dL 3.5-5.0 Speci men slightly code = 1145) hemolyzed BILIRUBIN TOTAL 1.3 mg/dL 0.2-1.2 H Specimen sli ghtly (BEAKER) (test code = hemoly zed 377) BILIRUBIN DIRECT 0.7 mg/dL 0.1-0.5 H Specimen sl ightly (BEAKER) (test code = hemoly zed 706) ALKALINE PHOSPHATASE 170 U/L 40-150 H (BEAKER) (test code = 346) AST (SGOT) (BEAKER) 300 U/L 5-34 H Specimen slightly (test code = 353) hemolyzed ALT (SGPT) (BEAKER) 1034 U/L 6-55 H Specimen slightly (test code = 347) hemolyzed Stitcher Hand ID - SOCO [id number] 03:44:32 Test Item Value Reference Range Interpretation Comments PROTIME (BEAKER) (test 19.4 seconds 11.9-14.2 H code = 759) INR (BEAKER) (test 1.66 See_Comment [Automat ed code = 370) message] The sy stem which generated this result transmitted reference range : <=5.90. The reference range was not used to interpret this result as normal/abnormal . PARTIAL THROMBOPLASTIN 35.6 seconds 22.5-36.0 TIME (BEAKER) (test code = 760) RECOMMENDED COUMADIN/WARFARIN INR THERAPY RANGESSTANDARD DOSE: 2.0 - 3.0 Includes: PROPHYLAXIS for venous thrombosis, systemic embolization; TREATMENT for venous thrombosis and/or pulmonary embolus.HIGH RISK: Target INR is 2.5-3.5 for patients with mechanical heart valves.BASIC METABOLIC [id number] 21:39:24 Test Item Value Reference Range Interpretation Comments SODIUM (BEAKER) 140 meq/L 136-145 (test code = 381) POTASSIUM (BEAKER) 3.4 meq/L 3.5-5.1 L (test code = 379) CHLORIDE (BEAKER) 96 meq/L 98-107 L (test code = 382) CO2 (BEAKER) (test 32 meq/L 22-29 H code = 355) BLOOD UREA NITROGEN 19 mg/dL 7-21 (BEAKER) (test code = 354) CREATININE (BEAKER) 1.20 mg/dL 0.57-1.25 (test code = 358) GLUCOSE RANDOM 132 mg/dL 70-105 H (BEAKER) (test code = 652) CALCIUM (BEAKER) 8.5 mg/dL 8.4-10.2 (test code = 697) EGFR (BEAKER) (test 64 mL/min/1.73 ESTIMA NEELA GFR IS code = 1092) sq m NOT ACCURATE CREATININE CLEARANCE IN PREDICTING GLOMERULAR FILTRATION RATE . ESTIMATED GFR I S NOT APPLICABLE FOR DIALYSIS PATIEN TS. Stitcher Hand ID - [id number] 21:39:24 Test Item Value Reference Range Interpretation Comments MAGNESIUM (BEAKER) (test code = 2.0 mg/dL 1.6-2.6 627) Stitcher Hand ID - DBPOCT-GLUCOSE [id number] 18:26:00 Test Item Value Reference Range Interpretation Comments POC-GLUCOSE METER 161 mg/dL 70-110 H : TESTED A T [facility] 6720 (BEAKER) (test code = MELVINA Olson [place], 1538) [id number]: Stitcher Hand/Techni ebenezer ID = [id number] for Julisa etienne (contract)Josefina BASIC METABOLIC [id number] 16:23:46 Test Item Value Reference Range Interpretation Comments SODIUM (BEAKER) 143 meq/L 136-145 (test code = 381) POTASSIUM (BEAKER) 3.1 meq/L 3.5-5.1 L (test code = 379) CHLORIDE (BEAKER) 97 meq/L 98-107 L (test code = 382) CO2 (BEAKER) (test 35 meq/L 22-29 H code = 355) BLOOD UREA NITROGEN 22 mg/dL 7-21 H (BEAKER) (test code = 354) CREATININE (BEAKER) 1.12 mg/dL 0.57-1.25 (test code = 358) GLUCOSE RANDOM 128 mg/dL 70-105 H (BEAKER) (test code = 652) CALCIUM (BEAKER) 8.7 mg/dL 8.4-10.2 (test code = 697) EGFR (BEAKER) (test 69 mL/min/1.73 ESTIMA NEELA GFR IS code = 1092) sq m NOT ACCURATE CREATININE CLEARANCE IN PREDICTING GLOMERULAR FILTRATION RATE . ESTIMATED GFR I S NOT APPLICABLE FOR DIALYSIS PATIEN TS. Stitcher Hand ID - [id number] 16:18:18 Test Item Value Reference Range Interpretation Comments MAGNESIUM (BEAKER) (test code = 1.7 mg/dL 1.6-2.6 627) Stitcher Hand ID - ADMINLACTIC ACID, [id number] 16:13:56 Test Item Value Reference Range Interpretation Comments LACTATE BLOOD ARTERIAL (2) 0.9 mmol/L 0.5-2.2 (BEAKER) (test code = 2874) Stitcher Hand ID - ADMINPOCT-GLUCOSE [id number] 11:30:54 Test Item Value Reference Range Interpretation Comments POC-GLUCOSE METER 122 mg/dL 70-110 H : TESTED A T [facility] 6720 (BEAKER) (test code = [facility], 1538) [address]: Stitcher Hand/Techni ebenezer ID = [id number] for Julisa etienne (contract)Josefina POCT-GLUCOSE [id number] 06:59:36 Test Item Value Reference Range Interpretation Comments POC-GLUCOSE METER 110 mg/dL 70-110 : TESTED A T [facility] 6720 (BEAKER) (test code [facility], = 1538) [address]: Stitcher Hand/Techni ebenezer ID = [id number] for SUGU , SHEENAMOL BASIC METABOLIC [id number] 03:30:33 Test Item Value Reference Range Interpretation Comments SODIUM (BEAKER) 133 meq/L 136-145 L (test code = 381) POTASSIUM (BEAKER) 3.0 meq/L 3.5-5.1 L (test code = 379) CHLORIDE (BEAKER) 94 meq/L 98-107 L (test code = 382) CO2 (BEAKER) (test 25 meq/L 22-29 code = 355) BLOOD UREA NITROGEN 30 mg/dL 7-21 H (BEAKER) (test code = 354) CREATININE (BEAKER) 1.43 mg/dL 0.57-1.25 H (test code = 358) GLUCOSE RANDOM 132 mg/dL 70-105 H (BEAKER) (test code = 652) CALCIUM (BEAKER) 8.8 mg/dL 8.4-10.2 (test code = 697) EGFR (BEAKER) (test 52 mL/min/1.73 ESTIMA NEELA GFR IS code = 1092) sq m NOT ACCURATE CREATININE CLEARANCE IN PREDICTING GLOMERULAR FILTRATION RATE . ESTIMATED GFR I S NOT APPLICABLE FOR DIALYSIS PATIEN TS. Stitcher Hand ID - SO MB-TYPE NATRIURETIC FACTOR (BNP)2021-07-03 03:30:11 Test Item Value Reference Range Interpretation Comments B-TYPE NATRIURETIC PEPTIDE 2057 pg/mL 0-100 H (BEAKER) (test code = 700) Stitcher Hand ID - SO [id number] 03:24:32 Test Item Value Reference Range Interpretation Comments MAGNESIUM (BEAKER) (test code = 1.9 mg/dL 1.6-2.6 627) Stitcher Hand ID - SO MHEPATIC FUNCTION [id number] 03:24:32 Test Item Value Reference Range Interpretation Comments TOTAL PROTEIN (BEAKER) (test code = 6.8 gm/dL 6.0-8.3 770) ALBUMIN (BEAKER) (test code = 1145) 4.0 g/dL 3.5-5.0 BILIRUBIN TOTAL (BEAKER) (test code 2.3 mg/dL 0.2-1.2 H = 377) BILIRUBIN DIRECT (BEAKER) (test 1.2 mg/dL 0.1-0.5 H code = 706) ALKALINE PHOSPHATASE (BEAKER) (test 173 U/L 40-150 H code = 346) AST (SGOT) (BEAKER) (test code = 820 U/L 5-34 H 353) ALT (SGPT) (BEAKER) (test code = 1584 U/L 6-55 H 347) Stitcher Hand ID - SO [id number] 03:24:25 Test Item Value Reference Range Interpretation Comments PROTIME (BEAKER) (test 21.2 seconds 11.9-14.2 H code = 759) INR (BEAKER) (test 1.86 See_Comment [Automat ed code = 370) message] The sy stem which generated this result transmitted reference range : <=5.90. The reference range was not used to interpret this result as normal/abnormal . PARTIAL THROMBOPLASTIN 40.7 seconds 22.5-36.0 H TIME (BEAKER) (test code = 760) RECOMMENDED COUMADIN/WARFARIN INR THERAPY RANGESSTANDARD DOSE: 2.0 - 3.0 Includes: PROPHYLAXIS for venous thrombosis, systemic embolization; TREATMENT for venous thrombosis and/or pulmonary embolus.HIGH RISK: Target INR is 2.5-3.5 for patients with mechanical heart valves.CBC W/PLT COUNT & AUTO [id number] 03:10:58 Test Item Value Reference Range Interpretation Comments WHITE BLOOD CELL COUNT (BEAKER) 8.1 K/ L 3.5-10.5 (test code = 775) RED BLOOD CELL COUNT (BEAKER) 3.13 M/ L 4.63-6.08 L (test code = 761) HEMOGLOBIN (BEAKER) (test code = 9.2 GM/DL 13.7-17.5 L 410) HEMATOCRIT (BEAKER) (test code = 29.4 % 40.1-51.0 L 411) MEAN CORPUSCULAR VOLUME (BEAKER) 93.9 fL 79.0-92.2 H (test code = 753) MEAN CORPUSCULAR HEMOGLOBIN 29.4 pg 25.7-32.2 (BEAKER) (test code = 751) MEAN CORPUSCULAR HEMOGLOBIN CONC 31.3 GM/DL 32.3-36.5 L (BEAKER) (test code = 752) RED CELL DISTRIBUTION WIDTH 23.5 % 11.6-14.4 H (BEAKER) (test code = 412) PLATELET COUNT (BEAKER) (test 202 K/CU MM 150-450 code = 756) MEAN PLATELET VOLUME (BEAKER) 10.1 fL 9.4-12.4 (test code = 754) NUCLEATED RED BLOOD CELLS 0 /100 WBC 0-0 (BEAKER) (test code = 413) NEUTROPHILS RELATIVE PERCENT 83 % (BEAKER) (test code = 429) LYMPHOCYTES RELATIVE PERCENT 10 % (BEAKER) (test code = 430) MONOCYTES RELATIVE PERCENT 6 % (BEAKER) (test code = 431) EOSINOPHILS RELATIVE PERCENT 0 % (BEAKER) (test code = 432) BASOPHILS RELATIVE PERCENT 0 % (BEAKER) (test code = 437) NEUTROPHILS ABSOLUTE COUNT 6.71 K/ L 1.78-5.38 H (BEAKER) (test code = 670) LYMPHOCYTES ABSOLUTE COUNT 0.83 K/ L 1.32-3.57 L (BEAKER) (test code = 414) MONOCYTES ABSOLUTE COUNT (BEAKER) 0.45 K/ L 0.30-0.82 (test code = 415) EOSINOPHILS ABSOLUTE COUNT 0.01 K/ L 0.04-0.54 L (BEAKER) (test code = 416) BASOPHILS ABSOLUTE COUNT (BEAKER) 0.01 K/ L 0.01-0.08 (test code = 417) IMMATURE GRANULOCYTES-RELATIVE 1 % 0-1 PERCENT (BEAKER) (test code = 2801) LACTIC ACID, [id number] 03:08:44 Test Item Value Reference Range Interpretation Comments LACTATE BLOOD ARTERIAL (2) 1.0 mmol/L 0.5-2.2 (BEAKER) (test code = 2874) Stitcher Hand ID - SO MOXYGEN SATURATION, [id number] 02:58:46 Test Item Value Reference Range Interpretation Comments O2 SATURATION (MEASURED) (BEAKER) 98.6 % (test code = 1455) U/S, ABDOMINAL, [id number] 23:25:00Abdomen limited area? Add comment if clarification is needed.->LiverReason for exam:->Shock Liver [facility] : 1970 Sex: MFINAL REPORT History: Elevated LFTs Abdominal ultrasound dated 07/02/2021 Comparison:None Comment: Real-time transabdominal ultrasound of the right upper quadrant abdomen was performed.Liver: 19.5 cm , enlarged. Normal echogenicity. No focal lesions. Gallbladder: No gallstones. No gallbladder wall thickening. No pericholecystic fluid. No sonographic Rojas's sign. Transverse diameter: 4.0 cm. Biliary tree: No intrahepatic ductal dilatation. CBD: 5 mm. Pancreas: Obscured by overlyingbowel gas. Right kidney: 12.8 x 6.6 x 5.5 cm. Normal echogenicity. No ascites is present in the abdomen. Real-time Freeman scale, color and spectral doppler ultrasound of the abdomen was performed to evaluate visceral blood flow. Main portal vein measures 1.2 cm in diameter. There is hepatopetal flow in the main portal vein with velocity 25.9 cm/sec. The right and left intrahepatic portal veins are patent with hepatopetal flow. Proper hepatic artery, right hepatic artery, and left hepatic artery are patent with resistive indices 0.7, 0.6, and 0.6 respectively. IVC, Hepatic venous confluence, right HV,middle HV and left HV are patent with appropriate flow. The visualized abdominal aorta is normal in caliber. Impression: No acute ultrasound abnormality to explain the patient's elevated LFTs. Nonvisualization of the pancreas, obscured by bowel gas. Hepatomegaly. Unremarkable abdominal Doppler evaluation. Signed: [facility] Verified Date/Time: 07/02/2021 23:25:31 U/S, DUPLEX, [id number] 23:25:00Liver ultrasound with dopplerReason for exam:->elevated liver functionShould this be performed atthe bedside?->Yes [facility] : 1970 Sex: MFINAL REPORT History: Elevated LFTs Abdominal ultrasound dated 07/02/2021 Comparison:None Comment: Real-time transabdominal ultrasound of the right upper quadrant abdomen was performed.Liver: 19.5 cm , enlarged. Normal echogenicity. No focal lesions. Gallbladder: No gallstones. No gallbladder wall thickening. No pericholecystic fluid. No sonographic Rojas's sign. Transverse diameter: 4.0 cm. Biliary tree: No intrahepatic ductal dilatation. CBD: 5 mm. Pancreas: Obscured by overlyingbowel gas. Right kidney: 12.8 x 6.6 x 5.5 cm. Normal echogenicity. No ascites is present in the abdomen. Real-time Freeman scale, color and spectral doppler ultrasound of the abdomen was performed to evaluate visceral blood flow. Main portal vein measures 1.2 cm in diameter. There is hepatopetal flow in the main portal vein with velocity 25.9 cm/sec. The right and left intrahepatic portal veins are patent with hepatopetal flow. Proper hepatic artery, right hepatic artery, and left hepatic artery are patent with resistive indices 0.7, 0.6, and 0.6 respectively. IVC, Hepatic venous confluence, right HV,middle HV and left HV are patent with appropriate flow. The visualized abdominal aorta is normal in caliber. Impression: No acute ultrasound abnormality to explain the patient's elevated LFTs. Nonvisualization of the pancreas, obscured by bowel gas. Hepatomegaly. Unremarkable abdominal Doppler evaluation. Signed: Braeden Sylvester [facility] Verified Date/Time: 07/02/2021 23:25:31 , CHEST, 1 VIEW, NON [id number] 19:48:00Reason for exam:->Resp DistressShould this be performed at the bedside?->Yes [facility] 1970 Sex: MFINAL REPORT AP view of the chest dated 07/02/2021 COMPARISON: June 18, 2021 CLINICAL INFORMATION: Resp Distress Comment: Heart is enlarged. AICD and right subclavian central venouscatheter are present. Pulmonary vasculature is unremarkable. Lungs are clear. No pulmonary infiltrate or pleural effusion is present. Impression: Cardiomegaly without pulmonary edema. Signed: Herb Bonilla Verified Date/Time: 07/02/2021 19:48:34 Reading Location: [address] Consult Reading Room HIGH SENSITIVITY TROPONIN [id number] 18:45:23 Test Item Value Reference Range Interpretation Comments HIGH SENSITIVITY 21 pg/ml See_Comment [Automated message] TROPONIN I (test code = The system which 5254693) generated this result transmitted ref erence range: <=35. Th e reference range was not used to int erpret this result as normal/abnormal . Stitcher Hand ID - BSThe BEESWAX BLEACHER STAT High Sensitivity Troponin-I results should be used in conjunctionwith other diagnostic information such as ECG, clinical observations and information, and patient symptoms to aid in the diagnosis of PR.BASIC METABOLIC [id number] 18:39:02 Test Item Value Reference Range Interpretation Comments SODIUM (BEAKER) 123 meq/L 136-145 L (test code = 381) POTASSIUM (BEAKER) 5.2 meq/L 3.5-5.1 H (test code = 379) CHLORIDE (BEAKER) 93 meq/L 98-107 L (test code = 382) CO2 (BEAKER) (test 14 meq/L 22-29 L code = 355) BLOOD UREA NITROGEN 32 mg/dL 7-21 H (BEAKER) (test code = 354) CREATININE (BEAKER) 1.88 mg/dL 0.57-1.25 H (test code = 358) GLUCOSE RANDOM 168 mg/dL 70-105 H (BEAKER) (test code = 652) CALCIUM (BEAKER) 8.7 mg/dL 8.4-10.2 (test code = 697) EGFR (BEAKER) (test 38 mL/min/1.73 ESTIMA NEELA GFR IS code = 1092) sq m NOT ACCURATE CREATININE CLEARANCE IN PREDICTING GLOMERULAR FILTRATION RATE . ESTIMATED GFR I S NOT APPLICABLE FOR DIALYSIS PATIEN TS. Stitcher Hand ID - BSSpecimen slightly [id number] 18:39:01 Test Item Value Reference Range Interpretation Comments MAGNESIUM (BEAKER) (test code = 1.7 mg/dL 1.6-2.6 627) Stitcher Hand ID - BSPT/[id number] 18:35:59 Test Item Value Reference Range Interpretation Comments PROTIME (BEAKER) (test 23.0 seconds 11.9-14.2 H code = 759) INR (BEAKER) (test 2.06 See_Comment [Automat ed code = 370) message] The [employer] stem which generated this result transmitted reference range : <=5.90. The reference range was not used to interpret this result as normal/abnormal . PARTIAL THROMBOPLASTIN 40.2 seconds 22.5-36.0 H TIME (BEAKER) (test code = 760) RECOMMENDED COUMADIN/WARFARIN INR THERAPY RANGESSTANDARD DOSE: 2.0 - 3.0 Includes: PROPHYLAXIS for venous thrombosis, systemic embolization; TREATMENT for venous thrombosis and/or pulmonary embolus.HIGH RISK: Target INR is 2.5-3.5 for patients with mechanical heart valves.CALCIUM, [id number] 18:34:31 Test Item Value Reference Range Interpretation Comments CALCIUM IONIZED (BEAKER) (test 1.02 mmol/L 1.12-1.27 L code = 698) PH, BLOOD (BEAKER) (test code = 7.43 1810) LACTIC ACID, [id number] 18:34:21 Test Item Value Reference Range Interpretation Comments LACTATE BLOOD ARTERIAL (2) 3.9 mmol/L 0.5-2.2 H (BEAKER) (test code = 2874) Stitcher Hand ID - BSSpecimen slightly [id number] 18:29:46 Test Item Value Reference Range Interpretation Comments POC-GLUCOSE (BEAKER) 166 mg/dL 70-110 H : TESTE D AT [place] [address] (test code = 1855) [facility], [address]: Stitcher Hand/Techni ebenezer ID = [id number] for TONO Cortez, BILLY [id number] 18:29:45 Test Item Value Reference Range Interpretation Comments POC-HEMOGLOBIN 10.5 g/dL 13.0-16.8 L : TESTED AT [place] [address] ([facility]) (test code [facility], = 1856) [address]: Stitcher Hand/Techni ebenezer ID = [id number] for LUCILLEG Dana, BILLY [id number] 18:29:45 Test Item Value Reference Range Interpretation Comments POC-HEMATOCRIT 31 % 40-50 L : Stitcher Hand/Te chnician ID = ([facility]) (test code = 839381 for DIMITRIOS BRISENOA 1857) [id number] 18:29:44 Test Item Value Reference Range Interpretation Comments POC-POTASSIUM 5.1 meq/L 3.6-5.5 : TESTED AT [place] [address] ([facility]) (test code [facility], = 1540) [address]: Stitcher Hand/Techni ebenezer ID = [id number] for LUCILLEG E, BILLY [id number] 18:29:39 Test Item Value Reference Range Interpretation Comments POC-SODIUM (AKER) 124 meq/L 135-148 L : TESTED AT [place] [address] (test code = 1542) [facility], [address]: Stitcher Hand/Techni ebenezer ID = [id number] for LUCILLEG E, BILLY POCT-BLOOD GASES, [id number] 18:29:37 Test Item Value Reference Range Interpretation Comments TEMP, CELSIUS-POC (BEAKER) (test code = 1834) FIO2-POC (BEAKER) (test code = 1835) PH, ARTERIAL-POC 7.398 7.350-7.450 (BEAKER) (test code = 1836) PCO2, ARTERIAL-POC 27.8 mm Hg 35.0-45.0 L If pO2 is >180, pCO2 may (BEAKER) (test be positively biased code = 1837) PO2, ARTERIAL-POC 142.0 mm Hg 80.0-90.0 H (BEAKER) (test code = 1838) SO2, ARTERIAL-POC 99.0 % 96.0-97.0 H (BEAKER) (test code = 1839) HCO3, ARTERIAL-POC 17.2 meq/L 21.0-29.0 L (BEAKER) (test code = 1840) BASE EXCESS, -8.0 meq/L -2.0-3.0 L : TESTED AT [facility] 6720 ARTERIAL-POC [facility], (BEAKER) (test [address]: code = 1841) Stitcher Hand/Techni ebenezer ID = [id number] for BILLY ORTIZ HEPATIC FUNCTION [id number] 16:16:28 Test Item Value Reference Range Interpretation Comments TOTAL PROTEIN (BEAKER) (test code = 7.0 gm/dL 6.0-8.3 770) ALBUMIN (BEAKER) (test code = 1145) 4.1 g/dL 3.5-5.0 BILIRUBIN TOTAL (BEAKER) (test code 2.7 mg/dL 0.2-1.2 H = 377) BILIRUBIN DIRECT (BEAKER) (test 1.4 mg/dL 0.1-0.5 H code = 706) ALKALINE PHOSPHATASE (BEAKER) (test 182 U/L 40-150 H code = 346) AST (SGOT) (BEAKER) (test code = 1241 U/L 5-34 H 353) ALT (SGPT) (BEAKER) (test code = 1690 U/L 6-55 H 347) Stitcher Hand ID - ADMINSpecimen slightly ictericBASIC METABOLIC [id number] 16:16:27 Test Item Value Reference Range Interpretation Comments SODIUM (BEAKER) 126 meq/L 136-145 L (test code = 381) POTASSIUM (BEAKER) 4.9 meq/L 3.5-5.1 (test code = 379) CHLORIDE (BEAKER) 94 meq/L 98-107 L (test code = 382) CO2 (BEAKER) (test 19 meq/L 22-29 L code = 355) BLOOD UREA NITROGEN 31 mg/dL 7-21 H (BEAKER) (test code = 354) CREATININE (BEAKER) 1.74 mg/dL 0.57-1.25 H (test code = 358) GLUCOSE RANDOM 125 mg/dL 70-105 H (BEAKER) (test code = 652) CALCIUM (BEAKER) 8.7 mg/dL 8.4-10.2 (test code = 697) EGFR (BEAKER) (test 42 mL/min/1.73 ESTIMA NEELA GFR IS code = 1092) sq m NOT ACCURATE CREATININE CLEARANCE IN PREDICTING GLOMERULAR FILTRATION RATE . ESTIMATED GFR I S NOT APPLICABLE FOR DIALYSIS PATIEN TS. Stitcher Hand ID - ADMINSpecimen slightly ictericOSMOLALITY, [id number] 14:44:59 Test Item Value Reference Range Interpretation Comments OSMOLALITY URINE 290 mOsm/kg See_Comment [Automated message] (BEAKER) (test code = The sy stem which 614) generated this result transmitted ref erence range: 50-1,200 mOsm/kg. The reference range was not used to int erpret this result as normal/abnormal . OSMOLALITY, [id number] 14:38:43 Test Item Value Reference Range Interpretation Comments OSMOLALITY, SERUM (BEAKER) (test 270 mOsm/kg 275-295 L code = 615) SODIUM, RANDOM [id number] 14:36:47 Test Item Value Reference Range Interpretation Comments SODIUM URINE (BEAKER) (test code = < meq/L 243) Reference Range: No NormalsOperator ID - BSB-TYPE NATRIURETIC FACTOR (BNP) 2021-07-02 10:44:00 Test Item Value Reference Range Interpretation Comments B-TYPE NATRIURETIC PEPTIDE 1046 pg/mL 0-100 H (BEAKER) (test code = 700) Stitcher Hand ID - SOCO [id number] 09:34:18 Test Item Value Reference Range Interpretation Comments FERRITIN (BEAKER) (test code = 608.40 ng/mL 5.00-275.00 H 361) Stitcher Hand ID - ADMINIRON, TIBC, % SAT. (WITHOUT FERRITIN)2021-07-02 07:40:16 Test Item Value Reference Range Interpretation Comments IRON (BEAKER) (test code = 547) 41.0 ug/dL 40.0-160.0 TOTAL IRON BINDING CAPACITY 378 ug/dL 250-450 (BEAKER) (test code = 769) IRON % SATURATION (2) (BEAKER) 11 % 20-55 L (test code = 2590) Stitcher Hand ID - SOCO [id number] 06:27:36 Test Item Value Reference Range Interpretation Comments MAGNESIUM (BEAKER) (test code = 1.7 mg/dL 1.6-2.6 627) Stitcher Hand ID Sal WAN LBASIC METABOLIC [id number] 06:27:35 Test Item Value Reference Range Interpretation Comments SODIUM (BEAKER) 126 meq/L 136-145 L (test code = 381) POTASSIUM (BEAKER) 4.6 meq/L 3.5-5.1 (test code = 379) CHLORIDE (BEAKER) 94 meq/L 98-107 L (test code = 382) CO2 (BEAKER) (test 20 meq/L 22-29 L code = 355) BLOOD UREA NITROGEN 30 mg/dL 7-21 H (BEAKER) (test code = 354) CREATININE (BEAKER) 1.64 mg/dL 0.57-1.25 H (test code = 358) GLUCOSE RANDOM 120 mg/dL 70-105 H (BEAKER) (test code = 652) CALCIUM (BEAKER) 8.2 mg/dL 8.4-10.2 L (test code = 697) EGFR (BEAKER) (test 45 mL/min/1.73 ESTIMA NEELA GFR IS code = 1092) sq m NOT ACCURATE CREATININE CLEARANCE IN PREDICTING GLOMERULAR FILTRATION RATE . ESTIMATED GFR I S NOT APPLICABLE FOR DIALYSIS PATIEN TS. Stitcher Hand ID - SOCO LCBC W/PLT COUNT & AUTO [id number] 05:50:22 Test Item Value Reference Range Interpretation Comments WHITE BLOOD CELL COUNT (BEAKER) 10.1 K/ L 3.5-10.5 (test code = 775) RED BLOOD CELL COUNT (BEAKER) 3.15 M/ L 4.63-6.08 L (test code = 761) HEMOGLOBIN (BEAKER) (test code = 9.2 GM/DL 13.7-17.5 L 410) HEMATOCRIT (BEAKER) (test code = 30.1 % 40.1-51.0 L 411) MEAN CORPUSCULAR VOLUME (BEAKER) 95.6 fL 79.0-92.2 H (test code = 753) MEAN CORPUSCULAR HEMOGLOBIN 29.2 pg 25.7-32.2 (BEAKER) (test code = 751) MEAN CORPUSCULAR HEMOGLOBIN CONC 30.6 GM/DL 32.3-36.5 L (BEAKER) (test code = 752) RED CELL DISTRIBUTION WIDTH 23.6 % 11.6-14.4 H (BEAKER) (test code = 412) PLATELET COUNT (BEAKER) (test 235 K/CU MM 150-450 code = 756) MEAN PLATELET VOLUME (BEAKER) 10.2 fL 9.4-12.4 (test code = 754) NUCLEATED RED BLOOD CELLS 0 /100 WBC 0-0 (BEAKER) (test code = 413) NEUTROPHILS RELATIVE PERCENT 81 % (BEAKER) (test code = 429) LYMPHOCYTES RELATIVE PERCENT 9 % (BEAKER) (test code = 430) MONOCYTES RELATIVE PERCENT 7 % (BEAKER) (test code = 431) EOSINOPHILS RELATIVE PERCENT 1 % (BEAKER) (test code = 432) BASOPHILS RELATIVE PERCENT 0 % (BEAKER) (test code = 437) NEUTROPHILS ABSOLUTE COUNT 8.25 K/ L 1.78-5.38 H (BEAKER) (test code = 670) LYMPHOCYTES ABSOLUTE COUNT 0.95 K/ L 1.32-3.57 L (BEAKER) (test code = 414) MONOCYTES ABSOLUTE COUNT (BEAKER) 0.75 K/ L 0.30-0.82 (test code = 415) EOSINOPHILS ABSOLUTE COUNT 0.08 K/ L 0.04-0.54 (BEAKER) (test code = 416) BASOPHILS ABSOLUTE COUNT (BEAKER) 0.02 K/ L 0.01-0.08 (test code = 417) IMMATURE GRANULOCYTES-RELATIVE 1 % 0-1 PERCENT (BEAKER) (test code = 2801) SARS-COV2/RT-PCR ([facility])2021-07-02 04:14:47 Test Item Value Reference Range Interpretation Comments SARS-COV2/RT-PCR (test code = Negative Negative [id number]) Negative result for this test determines that SARS-CoV-2 RNA was not present in the specimen above the Limit of Detection (LOD). However, Negative results do not preclude SARS-CoV-2 infection and should not be used as the sole basis for treatment or patient management decisions. Negative results must be combined with clinical observations, patient history, and epidemiological information. A false negative result may occur if a specimen is improperly collected, transported, or handled. A false negative result should be considered if patient's recent exposures or clinical presentation indicate that COVID-19 (SARS-CoV-2) is likely and diagnostic tests for other causes of illness are negative. Re-testing should be considered in cases of suspected false negatives.The limit of detection for this assay is 100 copies/mL.This SARS-CoV-2 test is a real-time RT_PCR test intended for the qualitative detection of nucleic acid from SARS-CoV-2 in a nasopharyngeal swab specimen collected from individuals suspected of COVID-19 by their healthcare provider.This test has not been Food and Drug Administration (FDA) cleared or approved. This is a modified version of an approved Emergency Use Authorization (EUA) and is in the process of review by the FDA. Once authorized by the FDA, the issued EUA will be effective until the declaration that circumstances exist justifying the authorization of the emergency use of in vitro diagnostic tests for detection and/or diagnosis of COVID-19 is terminated under Section 564(b)(2) of the Act or the EUA is revoked under Section 564(g) of the Act.Testing was performed using [employer] SARS-CoV-2 assay.Fact Sheet for Healthcare Providers:https://www.[employer].Playthe.net/eduardo/RT SARS-CoV-2 HCP Fact Sheet 51- 632858.pdfFact Sheet for Healthcare Patients:https://www.[employer]/eduardo/RT SARS-CoV-2 Patient Fact Sheet EN 51-678183S5.pdfBASIC METABOLIC [id number] 05:27:28 Test Item Value Reference Range Interpretation Comments SODIUM (BEAKER) 130 meq/L 136-145 L (test code = 381) POTASSIUM (BEAKER) 4.1 meq/L 3.5-5.1 (test code = 379) CHLORIDE (BEAKER) 95 meq/L 98-107 L (test code = 382) CO2 (BEAKER) (test 25 meq/L 22-29 code = 355) BLOOD UREA NITROGEN 23 mg/dL 7-21 H (BEAKER) (test code = 354) CREATININE (BEAKER) 1.22 mg/dL 0.57-1.25 (test code = 358) GLUCOSE RANDOM 107 mg/dL 70-105 H (BEAKER) (test code = 652) CALCIUM (BEAKER) 8.6 mg/dL 8.4-10.2 (test code = 697) EGFR (BEAKER) (test 63 mL/min/1.73 ESTIMA NEELA GFR IS code = 1092) sq m NOT ACCURATE CREATININE CLEARANCE IN PREDICTING GLOMERULAR FILTRATION RATE . ESTIMATED GFR I S NOT APPLICABLE FOR DIALYSIS PATIEN TS. Stitcher Hand ID - SO [id number] 05:27:28 Test Item Value Reference Range Interpretation Comments MAGNESIUM (BEAKER) (test code = 1.9 mg/dL 1.6-2.6 627) Stitcher Hand ID - SO MSODIUM, RANDOM [id number] 05:11:40 Test Item Value Reference Range Interpretation Comments SODIUM URINE (BEAKER) (test code = < meq/L 243) Reference Range: No NormalsOperator ID - SO MCHLORIDE, RANDOM [id number] 05:11:35 Test Item Value Reference Range Interpretation Comments CHLORIDE URINE (BEAKER) (test code = < meq/L 682) Reference Range: No NormalsOperator ID - SO [facility]BC W/PLT COUNT & AUTO [id number] 05:10:12 Test Item Value Reference Range Interpretation Comments WHITE BLOOD CELL COUNT (BEAKER) 7.8 K/ L 3.5-10.5 (test code = 775) RED BLOOD CELL COUNT (BEAKER) 3.08 M/ L 4.63-6.08 L (test code = 761) HEMOGLOBIN (BEAKER) (test code = 9.0 GM/DL 13.7-17.5 L 410) HEMATOCRIT (BEAKER) (test code = 29.5 % 40.1-51.0 L 411) MEAN CORPUSCULAR VOLUME (BEAKER) 95.8 fL 79.0-92.2 H (test code = 753) MEAN CORPUSCULAR HEMOGLOBIN 29.2 pg 25.7-32.2 (BEAKER) (test code = 751) MEAN CORPUSCULAR HEMOGLOBIN CONC 30.5 GM/DL 32.3-36.5 L (BEAKER) (test code = 752) RED CELL DISTRIBUTION WIDTH 23.7 % 11.6-14.4 H (BEAKER) (test code = 412) PLATELET COUNT (BEAKER) (test 220 K/CU MM 150-450 code = 756) MEAN PLATELET VOLUME (BEAKER) 9.9 fL 9.4-12.4 (test code = 754) NUCLEATED RED BLOOD CELLS 0 /100 WBC 0-0 (BEAKER) (test code = 413) NEUTROPHILS RELATIVE PERCENT 75 % (BEAKER) (test code = 429) LYMPHOCYTES RELATIVE PERCENT 16 % (BEAKER) (test code = 430) MONOCYTES RELATIVE PERCENT 7 % (BEAKER) (test code = 431) EOSINOPHILS RELATIVE PERCENT 2 % (BEAKER) (test code = 432) BASOPHILS RELATIVE PERCENT 0 % (BEAKER) (test code = 437) NEUTROPHILS ABSOLUTE COUNT 5.88 K/ L 1.78-5.38 H (BEAKER) (test code = 670) LYMPHOCYTES ABSOLUTE COUNT 1.24 K/ L 1.32-3.57 L (BEAKER) (test code = 414) MONOCYTES ABSOLUTE COUNT (BEAKER) 0.52 K/ L 0.30-0.82 (test code = 415) EOSINOPHILS ABSOLUTE COUNT 0.13 K/ L 0.04-0.54 (BEAKER) (test code = 416) BASOPHILS ABSOLUTE COUNT (BEAKER) 0.02 K/ L 0.01-0.08 (test code = 417) IMMATURE GRANULOCYTES-RELATIVE 1 % 0-1 PERCENT (BEAKER) (test code = 2801) OXYGEN SATURATION, [id number] 04:40:06 Test Item Value Reference Range Interpretation Comments O2 SATURATION (MEASURED) (BEAKER) 49.7 % (test code = 1455) LACTIC ACID, [id number] 19:02:18 Test Item Value Reference Range Interpretation Comments LACTATE BLOOD VENOUS 5.46 mmol/L 0.50-2.20 HH Specime n slightly (2) (BEAKER) (test hemolyzed code = 2872) Stitcher Hand ID - DBRAD, ABDOMEN/KUB, 1 VIEW [id number] 19:00:00Reason for exam:- >abdominal painShould this be performed at the bedside?->Yes [facility] : 1970 Sex: MFINAL REPORT TECHNIQUE: Single View of the Abdomen. INDICATION: abdominal pain. COMPARISON: Chest radiograph from 06/18/2021. FINDINGS/IMPRESSION: The left chest cardiac device has leadsover the right atrium, right ventricle, and coronary sinus. A tunneled right IJ central venous catheter has its tip over the mid SVC. The heart is enlarged. Small right pleural effusion. Increased residual opacities of lungs are concerning for interstitial pulmonary edema. No pneumothorax. No acute bone abnormality. No gas-filled, dilated loops of small bowel. Although there is a relative paucity of bowel gas, this is likely a normal bowel gas pattern. No acute bone abnormality. Signed: Catalino Bender MDReport Verified Date/Time: 06/30/2021 19:00:30 OXYGEN SATURATION, [id number] 18:14:17 Test Item Value Reference Range Interpretation Comments O2 SATURATION (MEASURED) (BEAKER) 98.4 % (test code = 1455) HEPATOBILIARY [id number] 13:49:00Unlisted Reason for Exam - Click Yes and Enter Reason Below->No [facility] : 1970 Sex: MFINAL REPORT PROCEDURE: HEPATOBILIARY SCAN CPT CODE: 80214 INDICATION: Right upper quadrant abdominal pain PROTOCOL: 5.34 mCi of Tc-99m mebrofenin was injected intravenously. Images ofthe upper abdomen were obtained for approximately 60 minutes after tracer injection. FINDINGS: Initial tracer uptake into the liver is physiological. Subsequent tracer clearance from the liver proceedsnormally. There is good visualization of the extrahepatic biliary duct and the gallbladder, and the tracer appears appropriately in the small bowel. IMPRESSION: Normal hepatobiliary scan. No acute cholecystitis. Signed: Humberto Justice MDReport Verified Date/Time: 06/30/2021 13:49:24 Reading Location: [address] Reading Room [id number] 11:21:38 Test Item Value Reference Range Interpretation Comments LIPASE (BEAKER) (test code = 749) 10 U/L 8-78 Stitcher Hand ID - EMMANUEL [id number] 11:21:37 Test Item Value Reference Range Interpretation Comments AMYLASE (BEAKER) (test code = 349) 38 U/L 25-125 Stitcher Hand ID Sal EMMANUEL FHEPATIC FUNCTION [id number] 08:09:43 Test Item Value Reference Range Interpretation Comments TOTAL PROTEIN (BEAKER) (test code = 6.0 gm/dL 6.0-8.3 770) ALBUMIN (BEAKER) (test code = 1145) 3.7 g/dL 3.5-5.0 BILIRUBIN TOTAL (BEAKER) (test code 1.1 mg/dL 0.2-1.2 = 377) BILIRUBIN DIRECT (BEAKER) (test 0.5 mg/dL 0.1-0.5 code = 706) ALKALINE PHOSPHATASE (BEAKER) (test 121 U/L 40-150 code = 346) AST (SGOT) (BEAKER) (test code = 17 U/L 5-34 353) ALT (SGPT) (BEAKER) (test code = 23 U/L 6-55 347) Stitcher Hand ID - EMMANUEL FOperator ID EMMANUEL FBASIC METABOLIC [id number] 08:09:42 Test Item Value Reference Range Interpretation Comments SODIUM (BEAKER) 131 meq/L 136-145 L (test code = 381) POTASSIUM (BEAKER) 3.8 meq/L 3.5-5.1 (test code = 379) CHLORIDE (BEAKER) 96 meq/L 98-107 L (test code = 382) CO2 (BEAKER) (test 22 meq/L 22-29 code = 355) BLOOD UREA NITROGEN 21 mg/dL 7-21 (BEAKER) (test code = 354) CREATININE (BEAKER) 1.17 mg/dL 0.57-1.25 (test code = 358) GLUCOSE RANDOM 96 mg/dL 70-105 (BEAKER) (test code = 652) CALCIUM (BEAKER) 8.4 mg/dL 8.4-10.2 (test code = 697) EGFR (BEAKER) (test 66 mL/min/1.73 ESTIMA NEELA GFR IS code = 1092) sq m NOT ACCURATE CREATININE CLEARANCE IN PREDICTING GLOMERULAR FILTRATION RATE . ESTIMATED GFR I S NOT APPLICABLE FOR DIALYSIS PATIEN TS. Stitcher Hand ID - EMMANUEL FOperator ID Sal EMMANUEL [id number] 08:09:41 Test Item Value Reference Range Interpretation Comments MAGNESIUM (BEAKER) (test code = 1.7 mg/dL 1.6-2.6 627) Stitcher Hand ID Sal BENITEZ FB-TYPE NATRIURETIC FACTOR (BNP)2021-06-30 07:27:26 Test Item Value Reference Range Interpretation Comments B-TYPE NATRIURETIC PEPTIDE 1178 pg/mL 0-100 H (BEAKER) (test code = 700) Stitcher Hand ID Sal EMMANUEL FCBC W/PLT COUNT & AUTO [id number] 07:04:24 Test Item Value Reference Range Interpretation Comments WHITE BLOOD CELL COUNT (BEAKER) 7.9 K/ L 3.5-10.5 (test code = 775) RED BLOOD CELL COUNT (BEAKER) 2.92 M/ L 4.63-6.08 L (test code = 761) HEMOGLOBIN (BEAKER) (test code = 8.6 GM/DL 13.7-17.5 L 410) HEMATOCRIT (BEAKER) (test code = 28.1 % 40.1-51.0 L 411) MEAN CORPUSCULAR VOLUME (BEAKER) 96.2 fL 79.0-92.2 H (test code = 753) MEAN CORPUSCULAR HEMOGLOBIN 29.5 pg 25.7-32.2 (BEAKER) (test code = 751) MEAN CORPUSCULAR HEMOGLOBIN CONC 30.6 GM/DL 32.3-36.5 L (BEAKER) (test code = 752) RED CELL DISTRIBUTION WIDTH 23.7 % 11.6-14.4 H (BEAKER) (test code = 412) PLATELET COUNT (BEAKER) (test 206 K/CU MM 150-450 code = 756) MEAN PLATELET VOLUME (BEAKER) 10.1 fL 9.4-12.4 (test code = 754) NUCLEATED RED BLOOD CELLS 0 /100 WBC 0-0 (BEAKER) (test code = 413) NEUTROPHILS RELATIVE PERCENT 74 % (BEAKER) (test code = 429) LYMPHOCYTES RELATIVE PERCENT 18 % (BEAKER) (test code = 430) MONOCYTES RELATIVE PERCENT 6 % (BEAKER) (test code = 431) EOSINOPHILS RELATIVE PERCENT 1 % (BEAKER) (test code = 432) BASOPHILS RELATIVE PERCENT 0 % (BEAKER) (test code = 437) NEUTROPHILS ABSOLUTE COUNT 5.84 K/ L 1.78-5.38 H (BEAKER) (test code = 670) LYMPHOCYTES ABSOLUTE COUNT 1.45 K/ L 1.32-3.57 (BEAKER) (test code = 414) MONOCYTES ABSOLUTE COUNT (BEAKER) 0.47 K/ L 0.30-0.82 (test code = 415) EOSINOPHILS ABSOLUTE COUNT 0.11 K/ L 0.04-0.54 (BEAKER) (test code = 416) BASOPHILS ABSOLUTE COUNT (BEAKER) 0.02 K/ L 0.01-0.08 (test code = 417) IMMATURE GRANULOCYTES-RELATIVE 1 % 0-1 PERCENT (BEAKER) (test code = 2801) ANG, TUNNELED CATHETER [id number] 16:21:00Reason for exam:->right sided PICC- subclavian [facility] : 1970 Sex: MFINAL REPORT History: Need for long-term central IV access for . Procedure: Following informed written consent, the patient's right cervical region and anterior chest wall were prepped and draped in the usual sterile manner. Maximum sterile barrier techniques were utilized. 2% lidocaine was given locally for anesthesia. Additionally, the patient was given 0.5 mg IV Versed and 25 mcg IV fentanyl for conscious sedation and pain control. Vital signs were monitored and remained stable. Conscious sedation and continuous patient monitoring were performed by the attending radiologist and aregistered nurse for 20 minutes during the procedure. Access was gained to the right internal vein us ing ultrasound guidance and a micropuncture needle. A subcutaneous tunnel was created in the anterior chest wall. A 23 cm powerline dual lumen central venous catheter was tunneled and following serial dilatation of the tract, placed through a peel-away sheath and into position within the superior right atrium under fluoroscopic control. The catheter was secured to the skin using 2-0 Prolene suture. The small incision site was closed using 2-0 chromic suture. There were no immediate complications. Findings: Spot radiograph following catheter insertion demonstrates the right internal jugular tunneledcentral venous catheter to lie in expected position with its tip in the superior right atrium. No pneumothorax. Both ports flush and aspirate without difficulty. Ultrasound image of the right internal jugular vein prior to catheter placement shows a patent and compressible vein without evidence for thrombosis. Ultrasound image of the right internal jugular vein was obtained and archived on PACS. Impression: 1. Successful uncomplicated placement of a tunneled right internal jugular central venous catheter. Fluoroscopy time: 2.0 minsEstimated dose reported as (Ka,r): 49 mGy Signed: Stefan Carvajal MDReport Verified Date/Time: 06/25/2021 16:21:42 Reading Location: [place] [address] Angio Body Reading Room Kely ctronically signed by: STEFAN CARVAJAL M.D. on 06/25/2021 04:21 PMMAGNESIUM 2021-06-24 04:18:04 Test Item Value Reference Range Interpretation Comments MAGNESIUM (BEAKER) (test code = 1.7 mg/dL 1.6-2.6 627) Stitcher Hand ID - PIAYA LBASIC METABOLIC [id number] 04:18:03 Test Item Value Reference Range Interpretation Comments SODIUM (BEAKER) 127 meq/L 136-145 L (test code = 381) POTASSIUM (BEAKER) 3.2 meq/L 3.5-5.1 L (test code = 379) CHLORIDE (BEAKER) 89 meq/L 98-107 L (test code = 382) CO2 (BEAKER) (test 29 meq/L 22-29 code = 355) BLOOD UREA NITROGEN 21 mg/dL 7-21 (BEAKER) (test code = 354) CREATININE (BEAKER) 1.19 mg/dL 0.57-1.25 (test code = 358) GLUCOSE RANDOM 97 mg/dL 70-105 (BEAKER) (test code = 652) CALCIUM (BEAKER) 8.9 mg/dL 8.4-10.2 (test code = 697) EGFR (BEAKER) (test 65 mL/min/1.73 ESTIMA NEELA GFR IS code = 1092) sq m NOT ACCURATE CREATININE CLEARANCE IN PREDICTING GLOMERULAR FILTRATION RATE . ESTIMATED GFR I S NOT APPLICABLE FOR DIALYSIS PATIEN TS. Stitcher Hand ID - PIAYA LCBC W/PLT COUNT & AUTO [id number] 03:58:11 Test Item Value Reference Range Interpretation Comments WHITE BLOOD CELL COUNT (BEAKER) 8.3 K/ L 3.5-10.5 (test code = 775) RED BLOOD CELL COUNT (BEAKER) 3.44 M/ L 4.63-6.08 L (test code = 761) HEMOGLOBIN (BEAKER) (test code = 10.0 GM/DL 13.7-17.5 L 410) HEMATOCRIT (BEAKER) (test code = 31.3 % 40.1-51.0 L 411) MEAN CORPUSCULAR VOLUME (BEAKER) 91.0 fL 79.0-92.2 (test code = 753) MEAN CORPUSCULAR HEMOGLOBIN 29.1 pg 25.7-32.2 (BEAKER) (test code = 751) MEAN CORPUSCULAR HEMOGLOBIN CONC 31.9 GM/DL 32.3-36.5 L (BEAKER) (test code = 752) RED CELL DISTRIBUTION WIDTH 23.3 % 11.6-14.4 H (BEAKER) (test code = 412) PLATELET COUNT (BEAKER) (test 270 K/CU MM 150-450 code = 756) MEAN PLATELET VOLUME (BEAKER) 9.0 fL 9.4-12.4 L (test code = 754) NUCLEATED RED BLOOD CELLS 0 /100 WBC 0-0 (BEAKER) (test code = 413) NEUTROPHILS RELATIVE PERCENT 74 % (BEAKER) (test code = 429) LYMPHOCYTES RELATIVE PERCENT 16 % (BEAKER) (test code = 430) MONOCYTES RELATIVE PERCENT 7 % (BEAKER) (test code = 431) EOSINOPHILS RELATIVE PERCENT 2 % (BEAKER) (test code = 432) BASOPHILS RELATIVE PERCENT 0 % (BEAKER) (test code = 437) NEUTROPHILS ABSOLUTE COUNT 6.14 K/ L 1.78-5.38 H (BEAKER) (test code = 670) LYMPHOCYTES ABSOLUTE COUNT 1.33 K/ L 1.32-3.57 (BEAKER) (test code = 414) MONOCYTES ABSOLUTE COUNT (BEAKER) 0.56 K/ L 0.30-0.82 (test code = 415) EOSINOPHILS ABSOLUTE COUNT 0.16 K/ L 0.04-0.54 (BEAKER) (test code = 416) BASOPHILS ABSOLUTE COUNT (BEAKER) 0.02 K/ L 0.01-0.08 (test code = 417) IMMATURE GRANULOCYTES-RELATIVE 1 % 0-1 PERCENT (BEAKER) (test code = 2801) OXYGEN SATURATION, [id number] 14:09:29 Test Item Value Reference Range Interpretation Comments O2 SATURATION (MEASURED) (BEAKER) 55.9 % (test code = 1455) CBC W/PLT COUNT & AUTO [id number] 05:51:44 Test Item Value Reference Range Interpretation Comments WHITE BLOOD CELL COUNT (BEAKER) 9.4 K/ L 3.5-10.5 (test code = 775) RED BLOOD CELL COUNT (BEAKER) 3.66 M/ L 4.63-6.08 L (test code = 761) HEMOGLOBIN (BEAKER) (test code = 10.6 GM/DL 13.7-17.5 L 410) HEMATOCRIT (BEAKER) (test code = 34.2 % 40.1-51.0 L 411) MEAN CORPUSCULAR VOLUME (BEAKER) 93.4 fL 79.0-92.2 H (test code = 753) MEAN CORPUSCULAR HEMOGLOBIN 29.0 pg 25.7-32.2 (BEAKER) (test code = 751) MEAN CORPUSCULAR HEMOGLOBIN CONC 31.0 GM/DL 32.3-36.5 L (BEAKER) (test code = 752) RED CELL DISTRIBUTION WIDTH 23.7 % 11.6-14.4 H (BEAKER) (test code = 412) PLATELET COUNT (BEAKER) (test 256 K/CU MM 150-450 code = 756) MEAN PLATELET VOLUME (BEAKER) 9.3 fL 9.4-12.4 L (test code = 754) NUCLEATED RED BLOOD CELLS 0 /100 WBC 0-0 (BEAKER) (test code = 413) NEUTROPHILS RELATIVE PERCENT 72 % (BEAKER) (test code = 429) LYMPHOCYTES RELATIVE PERCENT 16 % (BEAKER) (test code = 430) MONOCYTES RELATIVE PERCENT 8 % (BEAKER) (test code = 431) EOSINOPHILS RELATIVE PERCENT 2 % (BEAKER) (test code = 432) BASOPHILS RELATIVE PERCENT 0 % (BEAKER) (test code = 437) NEUTROPHILS ABSOLUTE COUNT 6.75 K/ L 1.78-5.38 H (BEAKER) (test code = 670) LYMPHOCYTES ABSOLUTE COUNT 1.52 K/ L 1.32-3.57 (BEAKER) (test code = 414) MONOCYTES ABSOLUTE COUNT (BEAKER) 0.72 K/ L 0.30-0.82 (test code = 415) EOSINOPHILS ABSOLUTE COUNT 0.20 K/ L 0.04-0.54 (BEAKER) (test code = 416) BASOPHILS ABSOLUTE COUNT (BEAKER) 0.04 K/ L 0.01-0.08 (test code = 417) IMMATURE GRANULOCYTES-RELATIVE 1 % 0-1 PERCENT (BEAKER) (test code = 2801) BASIC METABOLIC [id number] 05:34:57 Test Item Value Reference Range Interpretation Comments SODIUM (BEAKER) 129 meq/L 136-145 L (test code = 381) POTASSIUM (BEAKER) 3.6 meq/L 3.5-5.1 Specimen slightly (test code = 379) hemolyzed CHLORIDE (BEAKER) 91 meq/L 98-107 L (test code = 382) CO2 (BEAKER) (test 26 meq/L 22-29 code = 355) BLOOD UREA NITROGEN 28 mg/dL 7-21 H (BEAKER) (test code = 354) CREATININE (BEAKER) 1.27 mg/dL 0.57-1.25 H Specimen slightly (test code = 358) hemolyzed GLUCOSE RANDOM 99 mg/dL 70-105 (BEAKER) (test code = 652) CALCIUM (BEAKER) 9.2 mg/dL 8.4-10.2 (test code = 697) EGFR (BEAKER) (test 60 mL/min/1.73 ESTIMA NEELA GFR IS code = 1092) sq m NOT ACCURATE CREATININE CLEARANCE IN PREDICTING GLOMERULAR FILTRATION RATE . ESTIMATED GFR I S NOT APPLICABLE FOR DIALYSIS PATIEN TS. Stitcher Hand ID - [id number] 05:34:56 Test Item Value Reference Range Interpretation Comments MAGNESIUM (BEAKER) 1.9 mg/dL 1.6-2.6 Specimen slightly (test code = 627) hemolyzed Stitcher Hand ID - ADMINCBC W/PLT COUNT & AUTO [id number] 06:21:50 Test Item Value Reference Range Interpretation Comments WHITE BLOOD CELL COUNT (BEAKER) 9.4 K/ L 3.5-10.5 (test code = 775) RED BLOOD CELL COUNT (BEAKER) 3.30 M/ L 4.63-6.08 L (test code = 761) HEMOGLOBIN (BEAKER) (test code = 9.7 GM/DL 13.7-17.5 L 410) HEMATOCRIT (BEAKER) (test code = 30.4 % 40.1-51.0 L 411) MEAN CORPUSCULAR VOLUME (BEAKER) 92.1 fL 79.0-92.2 (test code = 753) MEAN CORPUSCULAR HEMOGLOBIN 29.4 pg 25.7-32.2 (BEAKER) (test code = 751) MEAN CORPUSCULAR HEMOGLOBIN CONC 31.9 GM/DL 32.3-36.5 L (BEAKER) (test code = 752) RED CELL DISTRIBUTION WIDTH 23.6 % 11.6-14.4 H (BEAKER) (test code = 412) PLATELET COUNT (BEAKER) (test 247 K/CU MM 150-450 code = 756) MEAN PLATELET VOLUME (BEAKER) 9.5 fL 9.4-12.4 (test code = 754) NUCLEATED RED BLOOD CELLS 0 /100 WBC 0-0 (BEAKER) (test code = 413) NEUTROPHILS RELATIVE PERCENT 72 % (BEAKER) (test code = 429) LYMPHOCYTES RELATIVE PERCENT 17 % (BEAKER) (test code = 430) MONOCYTES RELATIVE PERCENT 7 % (BEAKER) (test code = 431) EOSINOPHILS RELATIVE PERCENT 3 % (BEAKER) (test code = 432) BASOPHILS RELATIVE PERCENT 0 % (BEAKER) (test code = 437) NEUTROPHILS ABSOLUTE COUNT 6.78 K/ L 1.78-5.38 H (BEAKER) (test code = 670) LYMPHOCYTES ABSOLUTE COUNT 1.61 K/ L 1.32-3.57 (BEAKER) (test code = 414) MONOCYTES ABSOLUTE COUNT (BEAKER) 0.62 K/ L 0.30-0.82 (test code = 415) EOSINOPHILS ABSOLUTE COUNT 0.24 K/ L 0.04-0.54 (BEAKER) (test code = 416) BASOPHILS ABSOLUTE COUNT (BEAKER) 0.03 K/ L 0.01-0.08 (test code = 417) IMMATURE GRANULOCYTES-RELATIVE 1 % 0-1 PERCENT (BEAKER) (test code = 2801) BASIC METABOLIC [id number] 05:40:40 Test Item Value Reference Range Interpretation Comments SODIUM (BEAKER) 130 meq/L 136-145 L (test code = 381) POTASSIUM (BEAKER) 3.5 meq/L 3.5-5.1 (test code = 379) CHLORIDE (BEAKER) 93 meq/L 98-107 L (test code = 382) CO2 (BEAKER) (test 25 meq/L 22-29 code = 355) BLOOD UREA NITROGEN 28 mg/dL 7-21 H (BEAKER) (test code = 354) CREATININE (BEAKER) 1.35 mg/dL 0.57-1.25 H (test code = 358) GLUCOSE RANDOM 114 mg/dL 70-105 H (BEAKER) (test code = 652) CALCIUM (BEAKER) 8.9 mg/dL 8.4-10.2 (test code = 697) EGFR (BEAKER) (test 56 mL/min/1.73 ESTIMA NEELA GFR IS code = 1092) sq m NOT ACCURATE CREATININE CLEARANCE IN PREDICTING GLOMERULAR FILTRATION RATE . ESTIMATED GFR I S NOT APPLICABLE FOR DIALYSIS PATIEN TS. Stitcher Hand ID - ISREAL [id number] 05:40:40 Test Item Value Reference Range Interpretation Comments MAGNESIUM (BEAKER) (test code = 1.9 mg/dL 1.6-2.6 627) Stitcher Hand ID - ISREAL GVANCOMYCIN LEVEL, [id number] 13:56:35 Test Item Value Reference Range Interpretation Comments VANCOMYCIN TROUGH (BEAKER) (test 22.8 ug/mL 10.0-20.0 H code = 522) Stitcher Hand ID Sal WAN LBASIC METABOLIC [id number] 03:56:45 Test Item Value Reference Range Interpretation Comments SODIUM (BEAKER) 131 meq/L 136-145 L (test code = 381) POTASSIUM (BEAKER) 4.0 meq/L 3.5-5.1 Specimen slightly (test code = 379) hemolyzed CHLORIDE (BEAKER) 95 meq/L 98-107 L (test code = 382) CO2 (BEAKER) (test 24 meq/L 22-29 code = 355) BLOOD UREA NITROGEN 34 mg/dL 7-21 H (BEAKER) (test code = 354) CREATININE (BEAKER) 1.61 mg/dL 0.57-1.25 H Specimen slightly (test code = 358) hemolyzed GLUCOSE RANDOM 106 mg/dL 70-105 H (BEAKER) (test code = 652) CALCIUM (BEAKER) 9.3 mg/dL 8.4-10.2 (test code = 697) EGFR (BEAKER) (test 46 mL/min/1.73 ESTIMA NEELA GFR IS code = 1092) sq m NOT ACCURATE CREATININE CLEARANCE IN PREDICTING GLOMERULAR FILTRATION RATE . ESTIMATED GFR I S NOT APPLICABLE FOR DIALYSIS PATIEN TS. Stitcher Hand ID - ISREAL [id number] 03:56:44 Test Item Value Reference Range Interpretation Comments MAGNESIUM (BEAKER) 2.1 mg/dL 1.6-2.6 Specimen slightly (test code = 627) hemolyzed Stitcher Hand ID - ISREAL GCBC W/PLT COUNT & AUTO [id number] 03:56:41 Test Item Value Reference Range Interpretation Comments WHITE BLOOD CELL COUNT (BEAKER) 10.9 K/ L 3.5-10.5 H (test code = 775) RED BLOOD CELL COUNT (BEAKER) 3.53 M/ L 4.63-6.08 L (test code = 761) HEMOGLOBIN (BEAKER) (test code = 10.3 GM/DL 13.7-17.5 L 410) HEMATOCRIT (BEAKER) (test code = 32.3 % 40.1-51.0 L 411) MEAN CORPUSCULAR VOLUME (BEAKER) 91.5 fL 79.0-92.2 (test code = 753) MEAN CORPUSCULAR HEMOGLOBIN 29.2 pg 25.7-32.2 (BEAKER) (test code = 751) MEAN CORPUSCULAR HEMOGLOBIN CONC 31.9 GM/DL 32.3-36.5 L (BEAKER) (test code = 752) RED CELL DISTRIBUTION WIDTH 23.4 % 11.6-14.4 H (BEAKER) (test code = 412) PLATELET COUNT (BEAKER) (test 250 K/CU MM 150-450 code = 756) MEAN PLATELET VOLUME (BEAKER) 9.0 fL 9.4-12.4 L (test code = 754) NUCLEATED RED BLOOD CELLS 0 /100 WBC 0-0 (BEAKER) (test code = 413) NEUTROPHILS RELATIVE PERCENT 77 % (BEAKER) (test code = 429) LYMPHOCYTES RELATIVE PERCENT 11 % (BEAKER) (test code = 430) MONOCYTES RELATIVE PERCENT 7 % (BEAKER) (test code = 431) EOSINOPHILS RELATIVE PERCENT 2 % (BEAKER) (test code = 432) BASOPHILS RELATIVE PERCENT 0 % (BEAKER) (test code = 437) NEUTROPHILS ABSOLUTE COUNT 8.42 K/ L 1.78-5.38 H (BEAKER) (test code = 670) LYMPHOCYTES ABSOLUTE COUNT 1.23 K/ L 1.32-3.57 L (BEAKER) (test code = 414) MONOCYTES ABSOLUTE COUNT (BEAKER) 0.81 K/ L 0.30-0.82 (test code = 415) EOSINOPHILS ABSOLUTE COUNT 0.26 K/ L 0.04-0.54 (BEAKER) (test code = 416) BASOPHILS ABSOLUTE COUNT (BEAKER) 0.04 K/ L 0.01-0.08 (test code = 417) IMMATURE GRANULOCYTES-RELATIVE 1 % 0-1 PERCENT (BEAKER) (test code = 2801) [id number] 04:55:34 Test Item Value Reference Range Interpretation Comments MAGNESIUM (BEAKER) (test code = 2.4 mg/dL 1.6-2.6 627) Stitcher Hand ID - ISREAL [id number] 04:55:34 Test Item Value Reference Range Interpretation Comments PHOSPHORUS (BEAKER) (test code = 3.7 mg/dL 2.3-4.7 604) Stitcher Hand ID - ISREAL GCOMPREHENSIVE METABOLIC [id number] 04:55:33 Test Item Value Reference Range Interpretation Comments TOTAL PROTEIN 7.5 gm/dL 6.0-8.3 (BEAKER) (test code = 770) ALBUMIN (BEAKER) 4.3 g/dL 3.5-5.0 (test code = 1145) ALKALINE PHOSPHATASE 104 U/L 40-150 (BEAKER) (test code = 346) BILIRUBIN TOTAL 0.9 mg/dL 0.2-1.2 (BEAKER) (test code = 377) SODIUM (BEAKER) (test 131 meq/L 136-145 L code = 381) POTASSIUM (BEAKER) 4.4 meq/L 3.5-5.1 (test code = 379) CHLORIDE (BEAKER) 93 meq/L 98-107 L (test code = 382) CO2 (BEAKER) (test 25 meq/L 22-29 code = 355) BLOOD UREA NITROGEN 38 mg/dL 7-21 H (BEAKER) (test code = 354) CREATININE (BEAKER) 1.87 mg/dL 0.57-1.25 H (test code = 358) GLUCOSE RANDOM 107 mg/dL 70-105 H (BEAKER) (test code = 652) CALCIUM (BEAKER) 9.9 mg/dL 8.4-10.2 (test code = 697) AST (SGOT) (BEAKER) 20 U/L 5-34 (test code = 353) ALT (SGPT) (BEAKER) 17 U/L 6-55 (test code = 347) EGFR (BEAKER) (test 38 mL/min/1.73 ESTIMA NEELA GFR IS code = 1092) sq m NOT ACCURATE CREATININE CLEARANCE IN PREDICTING GLOMERULAR FILTRATION RATE . ESTIMATED GFR I S NOT APPLICABLE FOR DIALYSIS PATIEN TS. Stitcher Hand ID - ISREAL GVANCOMYCIN LEVEL, [id number] 04:39:20 Test Item Value Reference Range Interpretation Comments VANCOMYCIN RANDOM (BEAKER) (test 23.8 ug/mL code = 523) Reference Range: No NormalsOperator ID - ISREAL GCALCIUM, [id number] 04:33:39 Test Item Value Reference Range Interpretation Comments CALCIUM IONIZED (BEAKER) (test 1.18 mmol/L 1.12-1.27 code = 698) PH, BLOOD (BEAKER) (test code = 7.39 1810) CBC W/PLT COUNT & AUTO [id number] 04:31:32 Test Item Value Reference Range Interpretation Comments WHITE BLOOD CELL COUNT (BEAKER) 13.1 K/ L 3.5-10.5 H (test code = 775) RED BLOOD CELL COUNT (BEAKER) 3.72 M/ L 4.63-6.08 L (test code = 761) HEMOGLOBIN (BEAKER) (test code = 10.6 GM/DL 13.7-17.5 L 410) HEMATOCRIT (BEAKER) (test code = 34.0 % 40.1-51.0 L 411) MEAN CORPUSCULAR VOLUME (BEAKER) 91.4 fL 79.0-92.2 (test code = 753) MEAN CORPUSCULAR HEMOGLOBIN 28.5 pg 25.7-32.2 (BEAKER) (test code = 751) MEAN CORPUSCULAR HEMOGLOBIN CONC 31.2 GM/DL 32.3-36.5 L (BEAKER) (test code = 752) RED CELL DISTRIBUTION WIDTH 23.1 % 11.6-14.4 H (BEAKER) (test code = 412) PLATELET COUNT (BEAKER) (test 228 K/CU MM 150-450 code = 756) MEAN PLATELET VOLUME (BEAKER) 9.1 fL 9.4-12.4 L (test code = 754) NUCLEATED RED BLOOD CELLS 0 /100 WBC 0-0 (BEAKER) (test code = 413) NEUTROPHILS RELATIVE PERCENT 83 % (BEAKER) (test code = 429) LYMPHOCYTES RELATIVE PERCENT 9 % (BEAKER) (test code = 430) MONOCYTES RELATIVE PERCENT 6 % (BEAKER) (test code = 431) EOSINOPHILS RELATIVE PERCENT 2 % (BEAKER) (test code = 432) BASOPHILS RELATIVE PERCENT 0 % (BEAKER) (test code = 437) NEUTROPHILS ABSOLUTE COUNT 10.78 K/ L 1.78-5.38 H (BEAKER) (test code = 670) LYMPHOCYTES ABSOLUTE COUNT 1.19 K/ L 1.32-3.57 L (BEAKER) (test code = 414) MONOCYTES ABSOLUTE COUNT (BEAKER) 0.75 K/ L 0.30-0.82 (test code = 415) EOSINOPHILS ABSOLUTE COUNT 0.20 K/ L 0.04-0.54 (BEAKER) (test code = 416) BASOPHILS ABSOLUTE COUNT (BEAKER) 0.04 K/ L 0.01-0.08 (test code = 417) IMMATURE GRANULOCYTES-RELATIVE 1 % 0-1 PERCENT (BEAKER) (test code = 2801) SARS-COV2/RT-PCR ([facility])2021-06-19 23:26:54 Test Item Value Reference Range Interpretation Comments SARS-COV2/RT-PCR (test code = Negative Negative [id number]) Negative result for this test determines that SARS-CoV-2 RNA was not present in the specimen above the Limit of Detection (LOD). However, Negative results do not preclude SARS-CoV-2 infection and should not be used as the sole basis for treatment or patient management decisions. Negative results must be combined with clinical observations, patient history, and epidemiological information. A false negative result may occur if a specimen is improperly collected, transported, or handled. A false negative result should be considered if patient's recent exposures or clinical presentation indicate that COVID-19 (SARS-CoV-2) is likely and diagnostic tests for other causes of illness are negative. Re-testing should be considered in cases of suspected false negatives.The limit of detection for this assay is 100 copies/mL.This SARS-CoV-2 test is a real-time RT_PCR test intended for the qualitative detection of nucleic acid from SARS-CoV-2 in a nasopharyngeal swab specimen collected from individuals suspected of COVID-19 by their healthcare provider.This test has not been Food and Drug Administration (FDA) cleared or approved. This is a modified version of an approved Emergency Use Authorization (EUA) and is in the process of review by the FDA. Once authorized by the FDA, the issued EUA will be effective until the declaration that circumstances exist justifying the authorization of the emergency use of in vitro diagnostic tests for detection and/or diagnosis of COVID-19 is terminated under Section 564(b)(2) of the Act or the EUA is revoked under Section 564(g) of the Act.Testing was performed using [employer] SARS-CoV-2 assay.Fact Sheet for Healthcare Providers:https://www.[employer]/eduardo/RT SARS-CoV-2 HCP Fact Sheet 51- 179289.pdfFact Sheet for Healthcare Patients:https://www.[employer].pittman/eduardo/RT SARS-CoV-2 Patient Fact Sheet EN 51-128312Z7.[id number] 04:04:42 Test Item Value Reference Range Interpretation Comments PHOSPHORUS (BEAKER) (test code = 3.8 mg/dL 2.3-4.7 604) Stitcher Hand ID - ISREAL [id number] 04:04:41 Test Item Value Reference Range Interpretation Comments MAGNESIUM (BEAKER) (test code = 2.5 mg/dL 1.6-2.6 627) Stitcher Hand ID - ISREAL GCOMPREHENSIVE METABOLIC [id number] 04:04:40 Test Item Value Reference Range Interpretation Comments TOTAL PROTEIN 7.9 gm/dL 6.0-8.3 (BEAKER) (test code = 770) ALBUMIN (BEAKER) 4.5 g/dL 3.5-5.0 (test code = 1145) ALKALINE PHOSPHATASE 115 U/L 40-150 (BEAKER) (test code = 346) BILIRUBIN TOTAL 1.0 mg/dL 0.2-1.2 (BEAKER) (test code = 377) SODIUM (BEAKER) (test 130 meq/L 136-145 L code = 381) POTASSIUM (BEAKER) 4.6 meq/L 3.5-5.1 (test code = 379) CHLORIDE (BEAKER) 92 meq/L 98-107 L (test code = 382) CO2 (BEAKER) (test 25 meq/L 22-29 code = 355) BLOOD UREA NITROGEN 39 mg/dL 7-21 H (BEAKER) (test code = 354) CREATININE (BEAKER) 1.97 mg/dL 0.57-1.25 H (test code = 358) GLUCOSE RANDOM 120 mg/dL 70-105 H (BEAKER) (test code = 652) CALCIUM (BEAKER) 10.2 mg/dL 8.4-10.2 (test code = 697) AST (SGOT) (BEAKER) 22 U/L 5-34 (test code = 353) ALT (SGPT) (BEAKER) 16 U/L 6-55 (test code = 347) EGFR (BEAKER) (test 36 mL/min/1.73 ESTIMA NEELA GFR IS code = 1092) sq m NOT ACCURATE CREATININE CLEARANCE IN PREDICTING GLOMERULAR FILTRATION RATE . ESTIMATED GFR I S NOT APPLICABLE FOR DIALYSIS PATIEN TS. Stitcher Hand ID - ISREAL GCALCIUM, [id number] 03:51:36 Test Item Value Reference Range Interpretation Comments CALCIUM IONIZED (BEAKER) (test 1.12 mmol/L 1.12-1.27 code = 698) PH, BLOOD (BEAKER) (test code = 7.49 1810) CBC W/PLT COUNT & AUTO [id number] 03:46:11 Test Item Value Reference Range Interpretation Comments WHITE BLOOD CELL COUNT (BEAKER) 12.7 K/ L 3.5-10.5 H (test code = 775) RED BLOOD CELL COUNT (BEAKER) 3.66 M/ L 4.63-6.08 L (test code = 761) HEMOGLOBIN (BEAKER) (test code = 10.4 GM/DL 13.7-17.5 L 410) HEMATOCRIT (BEAKER) (test code = 32.8 % 40.1-51.0 L 411) MEAN CORPUSCULAR VOLUME (BEAKER) 89.6 fL 79.0-92.2 (test code = 753) MEAN CORPUSCULAR HEMOGLOBIN 28.4 pg 25.7-32.2 (BEAKER) (test code = 751) MEAN CORPUSCULAR HEMOGLOBIN CONC 31.7 GM/DL 32.3-36.5 L (BEAKER) (test code = 752) RED CELL DISTRIBUTION WIDTH 22.7 % 11.6-14.4 H (BEAKER) (test code = 412) PLATELET COUNT (BEAKER) (test 210 K/CU MM 150-450 code = 756) MEAN PLATELET VOLUME (BEAKER) 9.2 fL 9.4-12.4 L (test code = 754) NUCLEATED RED BLOOD CELLS 0 /100 WBC 0-0 (BEAKER) (test code = 413) NEUTROPHILS RELATIVE PERCENT 87 % (BEAKER) (test code = 429) LYMPHOCYTES RELATIVE PERCENT 8 % (BEAKER) (test code = 430) MONOCYTES RELATIVE PERCENT 5 % (BEAKER) (test code = 431) EOSINOPHILS RELATIVE PERCENT 0 % (BEAKER) (test code = 432) BASOPHILS RELATIVE PERCENT 0 % (BEAKER) (test code = 437) NEUTROPHILS ABSOLUTE COUNT 11.03 K/ L 1.78-5.38 H (BEAKER) (test code = 670) LYMPHOCYTES ABSOLUTE COUNT 0.98 K/ L 1.32-3.57 L (BEAKER) (test code = 414) MONOCYTES ABSOLUTE COUNT (BEAKER) 0.57 K/ L 0.30-0.82 (test code = 415) EOSINOPHILS ABSOLUTE COUNT 0.03 K/ L 0.04-0.54 L (BEAKER) (test code = 416) BASOPHILS ABSOLUTE COUNT (BEAKER) 0.02 K/ L 0.01-0.08 (test code = 417) IMMATURE GRANULOCYTES-RELATIVE 1 % 0-1 PERCENT (BEAKER) (test code = 2801) BASIC METABOLIC [id number] 20:50:46 Test Item Value Reference Range Interpretation Comments SODIUM (BEAKER) 128 meq/L 136-145 L (test code = 381) POTASSIUM (BEAKER) 4.6 meq/L 3.5-5.1 Specimen slightly (test code = 379) hemolyzed CHLORIDE (BEAKER) 91 meq/L 98-107 L (test code = 382) CO2 (BEAKER) (test 26 meq/L 22-29 code = 355) BLOOD UREA NITROGEN 38 mg/dL 7-21 H (BEAKER) (test code = 354) CREATININE (BEAKER) 1.84 mg/dL 0.57-1.25 H Specimen slightly (test code = 358) hemolyzed GLUCOSE RANDOM 128 mg/dL 70-105 H (BEAKER) (test code = 652) CALCIUM (BEAKER) 9.7 mg/dL 8.4-10.2 (test code = 697) EGFR (BEAKER) (test 39 mL/min/1.73 ESTIMA NEELA GFR IS code = 1092) sq m NOT ACCURATE CREATININE CLEARANCE IN PREDICTING GLOMERULAR FILTRATION RATE . ESTIMATED GFR I S NOT APPLICABLE FOR DIALYSIS PATIEN TS. Stitcher Hand ID - [id number] 20:50:45 Test Item Value Reference Range Interpretation Comments MAGNESIUM (BEAKER) 2.4 mg/dL 1.6-2.6 Specimen slightly (test code = 627) hemolyzed Stitcher Hand ID - BSOXYGEN SATURATION, [id number] 17:21:57 Test Item Value Reference Range Interpretation Comments O2 SATURATION (MEASURED) (BEAKER) 67.3 % (test code = 1455) [id number] 11:32:48 Test Item Value Reference Range Interpretation Comments MAGNESIUM (BEAKER) (test code = 2.5 mg/dL 1.6-2.6 627) Stitcher Hand ID - SO MBASIC METABOLIC [id number] 11:32:47 Test Item Value Reference Range Interpretation Comments SODIUM (BEAKER) 128 meq/L 136-145 L (test code = 381) POTASSIUM (BEAKER) 4.6 meq/L 3.5-5.1 (test code = 379) CHLORIDE (BEAKER) 90 meq/L 98-107 L (test code = 382) CO2 (BEAKER) (test 27 meq/L 22-29 code = 355) BLOOD UREA NITROGEN 38 mg/dL 7-21 H (BEAKER) (test code = 354) CREATININE (BEAKER) 1.88 mg/dL 0.57-1.25 H (test code = 358) GLUCOSE RANDOM 130 mg/dL 70-105 H (BEAKER) (test code = 652) CALCIUM (BEAKER) 9.6 mg/dL 8.4-10.2 (test code = 697) EGFR (BEAKER) (test 38 mL/min/1.73 ESTIMA NEELA GFR IS code = 1092) sq m NOT ACCURATE CREATININE CLEARANCE IN PREDICTING GLOMERULAR FILTRATION RATE . ESTIMATED GFR I S NOT APPLICABLE FOR DIALYSIS PATIEN TS. Stitcher Hand ID - SO MOXYGEN SATURATION, [id number] 11:10:22 Test Item Value Reference Range Interpretation Comments O2 SATURATION (MEASURED) (BEAKER) 63.0 % (test code = 1455) RAD, CHEST, 1 VIEW, NON [id number] 07:35:00Reason for exam:->check PA cath and IABPShould this be performed at the bedside?->Yes [facility] 1970 Sex: MFINAL REPORT RAD, CHEST, 1 VIEW, NON DEPT INDICATION: check PA cath and IABP COMPARISON: Prior day's exam FINDINGS: Portable frontal view of the chest. IMPRESSION: Support Lines: Intra-aortic balloon pump marker vertex over the aortic arch. [place] catheter is stable. Lungs and pleura: No new consolidation. No pneumothorax.Heart and mediastinum: Stable contours. Stable pacer apparatus.Additional findings: None. Signed: JR Dumont Robert MDReport Verified Date/Time: 06/18/2021 07:35:33 Reading Location: [facility] Radiology Reading Room COMPREHENSIVE METABOLIC [id number] 06:18:25 Test Item Value Reference Range Interpretation Comments TOTAL PROTEIN 7.3 gm/dL 6.0-8.3 Specimen sligh tly (BEAKER) (test code = hemoly zed 770) ALBUMIN (BEAKER) 4.0 g/dL 3.5-5.0 Specimen sl ightly (test code = 1145) hemolyzed ALKALINE PHOSPHATASE 114 U/L 40-150 (BEAKER) (test code = 346) BILIRUBIN TOTAL 0.9 mg/dL 0.2-1.2 Specimen sli ghtly (BEAKER) (test code = hemoly zed 377) SODIUM (BEAKER) (test 130 meq/L 136-145 L code = 381) POTASSIUM (BEAKER) 4.2 meq/L 3.5-5.1 Specimen slightly (test code = 379) hemolyzed CHLORIDE (BEAKER) 95 meq/L 98-107 L (test code = 382) CO2 (BEAKER) (test 24 meq/L 22-29 code = 355) BLOOD UREA NITROGEN 37 mg/dL 7-21 H (BEAKER) (test code = 354) CREATININE (BEAKER) 1.59 mg/dL 0.57-1.25 H Specimen slightly (test code = 358) hemolyzed GLUCOSE RANDOM 101 mg/dL 70-105 (BEAKER) (test code = 652) CALCIUM (BEAKER) 8.8 mg/dL 8.4-10.2 (test code = 697) AST (SGOT) (BEAKER) 21 U/L 5-34 Specimen slightly (test code = 353) hemolyzed ALT (SGPT) (BEAKER) 13 U/L 6-55 Specimen slightly (test code = 347) hemolyzed EGFR (BEAKER) (test 46 mL/min/1.73 ESTIMA NEELA GFR IS code = 1092) sq m NOT ACCURATE CREATININE CLEARANCE IN PREDICTING GLOMERULAR FILTRATION RATE . ESTIMATED GFR I S NOT APPLICABLE FOR DIALYSIS PATIEN TS. Stitcher Hand ID - SO [id number] 06:18:24 Test Item Value Reference Range Interpretation Comments MAGNESIUM (BEAKER) 2.3 mg/dL 1.6-2.6 Specimen slightly (test code = 627) hemolyzed Stitcher Hand ID - SO [id number] 06:18:24 Test Item Value Reference Range Interpretation Comments PHOSPHORUS (BEAKER) 3.7 mg/dL 2.3-4.7 Specimen slightly (test code = 604) hemolyzed Stitcher Hand ID - SO [id number] 05:31:16 Test Item Value Reference Range Interpretation Comments PARTIAL THROMBOPLASTIN TIME 77.3 seconds 22.5-36.0 H (BEAKER) (test code = 760) CBC (HEMOGRAM ONLY)[id number] 05:21:24 Test Item Value Reference Range Interpretation Comments WHITE BLOOD CELL COUNT (BEAKER) 11.3 K/ L 3.5-10.5 H (test code = 775) RED BLOOD CELL COUNT (BEAKER) 3.35 M/ L 4.63-6.08 L (test code = 761) HEMOGLOBIN (BEAKER) (test code = 9.4 GM/DL 13.7-17.5 L 410) HEMATOCRIT (BEAKER) (test code = 30.1 % 40.1-51.0 L 411) MEAN CORPUSCULAR VOLUME (BEAKER) 89.9 fL 79.0-92.2 (test code = 753) MEAN CORPUSCULAR HEMOGLOBIN 28.1 pg 25.7-32.2 (BEAKER) (test code = 751) MEAN CORPUSCULAR HEMOGLOBIN CONC 31.2 GM/DL 32.3-36.5 L (BEAKER) (test code = 752) RED CELL DISTRIBUTION WIDTH 21.8 % 11.6-14.4 H (BEAKER) (test code = 412) PLATELET COUNT (BEAKER) (test 181 K/CU MM 150-450 code = 756) MEAN PLATELET VOLUME (BEAKER) 9.5 fL 9.4-12.4 (test code = 754) NUCLEATED RED BLOOD CELLS 0 /100 WBC 0-0 (BEAKER) (test code = 413) CBC W/PLT COUNT & AUTO [id number] 05:21:21 Test Item Value Reference Range Interpretation Comments WHITE BLOOD CELL COUNT (BEAKER) 11.3 K/ L 3.5-10.5 H (test code = 775) RED BLOOD CELL COUNT (BEAKER) 3.35 M/ L 4.63-6.08 L (test code = 761) HEMOGLOBIN (BEAKER) (test code = 9.4 GM/DL 13.7-17.5 L 410) HEMATOCRIT (BEAKER) (test code = 30.1 % 40.1-51.0 L 411) MEAN CORPUSCULAR VOLUME (BEAKER) 89.9 fL 79.0-92.2 (test code = 753) MEAN CORPUSCULAR HEMOGLOBIN 28.1 pg 25.7-32.2 (BEAKER) (test code = 751) MEAN CORPUSCULAR HEMOGLOBIN CONC 31.2 GM/DL 32.3-36.5 L (BEAKER) (test code = 752) RED CELL DISTRIBUTION WIDTH 21.8 % 11.6-14.4 H (BEAKER) (test code = 412) PLATELET COUNT (BEAKER) (test 181 K/CU MM 150-450 code = 756) MEAN PLATELET VOLUME (BEAKER) 9.5 fL 9.4-12.4 (test code = 754) NUCLEATED RED BLOOD CELLS 0 /100 WBC 0-0 (BEAKER) (test code = 413) NEUTROPHILS RELATIVE PERCENT 87 % (BEAKER) (test code = 429) LYMPHOCYTES RELATIVE PERCENT 7 % (BEAKER) (test code = 430) MONOCYTES RELATIVE PERCENT 4 % (BEAKER) (test code = 431) EOSINOPHILS RELATIVE PERCENT 1 % (BEAKER) (test code = 432) BASOPHILS RELATIVE PERCENT 0 % (BEAKER) (test code = 437) NEUTROPHILS ABSOLUTE COUNT 9.90 K/ L 1.78-5.38 H (BEAKER) (test code = 670) LYMPHOCYTES ABSOLUTE COUNT 0.84 K/ L 1.32-3.57 L (BEAKER) (test code = 414) MONOCYTES ABSOLUTE COUNT (BEAKER) 0.41 K/ L 0.30-0.82 (test code = 415) EOSINOPHILS ABSOLUTE COUNT 0.10 K/ L 0.04-0.54 (BEAKER) (test code = 416) BASOPHILS ABSOLUTE COUNT (BEAKER) 0.02 K/ L 0.01-0.08 (test code = 417) IMMATURE GRANULOCYTES-RELATIVE 1 % 0-1 PERCENT (BEAKER) (test code = 2801) OXYGEN SATURATION, [id number] 05:20:11 Test Item Value Reference Range Interpretation Comments O2 SATURATION (MEASURED) (BEAKER) 91.2 % (test code = 1455) CALCIUM, [id number] 04:32:44 Test Item Value Reference Range Interpretation Comments CALCIUM IONIZED (BEAKER) (test 1.09 mmol/L 1.12-1.27 L code = 698) PH, BLOOD (BEAKER) (test code = 7.39 1810) BASIC METABOLIC [id number] 20:08:14 Test Item Value Reference Range Interpretation Comments SODIUM (BEAKER) 129 meq/L 136-145 L (test code = 381) POTASSIUM (BEAKER) 4.8 meq/L 3.5-5.1 Specimen slightly (test code = 379) hemolyzed CHLORIDE (BEAKER) 92 meq/L 98-107 L (test code = 382) CO2 (BEAKER) (test 27 meq/L 22-29 code = 355) BLOOD UREA NITROGEN 36 mg/dL 7-21 H (BEAKER) (test code = 354) CREATININE (BEAKER) 1.71 mg/dL 0.57-1.25 H Specimen slightly (test code = 358) hemolyzed GLUCOSE RANDOM 122 mg/dL 70-105 H (BEAKER) (test code = 652) CALCIUM (BEAKER) 9.6 mg/dL 8.4-10.2 (test code = 697) EGFR (BEAKER) (test 43 mL/min/1.73 ESTIMA NEELA GFR IS code = 1092) sq m NOT ACCURATE CREATININE CLEARANCE IN PREDICTING GLOMERULAR FILTRATION RATE . ESTIMATED GFR I S NOT APPLICABLE FOR DIALYSIS PATIEN TS. Stitcher Hand ID - [id number] 20:08:13 Test Item Value Reference Range Interpretation Comments MAGNESIUM (BEAKER) 2.4 mg/dL 1.6-2.6 Specimen slightly (test code = 627) hemolyzed Stitcher Hand ID - [id number] 19:55:04 Test Item Value Reference Range Interpretation Comments PARTIAL THROMBOPLASTIN TIME 71.0 seconds 22.5-36.0 H (BEAKER) (test code = 760) OXYGEN SATURATION, [id number] 14:44:55 Test Item Value Reference Range Interpretation Comments O2 SATURATION (MEASURED) (BEAKER) 65.9 % (test code = 1455) RAD, ABDOMEN/KUB, 1 VIEW [id number] 14:07:00Reason for exam:->IABP [facility] : 1970 Sex: MFINAL REPORT RAD, ABDOMEN/KUB, 1 VIEW AP CLINICAL INDICATION: IABP COMPARISON: June 12, 2021 TECHNIQUE: Three frontal radiographs of the abdomen. IMPRESSION:Intra-aortic balloon pump markers project at the L2 level inferiorly and T5 below the aortic arch superiorly. Bowel gas pattern is nonobstructive. A large colonic stool burden is present. There is no visible pneumatosis. Signed: JR Dumont Robert MDReport Verified Date/Time: 06/17/2021 14:07:29 Reading Location: [facility] Radiology Reading Room APTT 2021-06-17 12:29:56 Test Item Value Reference Range Interpretation Comments PARTIAL THROMBOPLASTIN TIME 92.2 seconds 22.5-36.0 H (BEAKER) (test code = 760) BASIC METABOLIC [id number] 12:24:37 Test Item Value Reference Range Interpretation Comments SODIUM (BEAKER) 129 meq/L 136-145 L (test code = 381) POTASSIUM (BEAKER) 4.5 meq/L 3.5-5.1 Specimen slightly (test code = 379) hemolyzed CHLORIDE (BEAKER) 92 meq/L 98-107 L (test code = 382) CO2 (BEAKER) (test 26 meq/L 22-29 code = 355) BLOOD UREA NITROGEN 37 mg/dL 7-21 H (BEAKER) (test code = 354) CREATININE (BEAKER) 1.79 mg/dL 0.57-1.25 H Specimen slightly (test code = 358) hemolyzed GLUCOSE RANDOM 118 mg/dL 70-105 H (BEAKER) (test code = 652) CALCIUM (BEAKER) 9.5 mg/dL 8.4-10.2 (test code = 697) EGFR (BEAKER) (test 40 mL/min/1.73 ESTIMA NEELA GFR IS code = 1092) sq m NOT ACCURATE CREATININE CLEARANCE IN PREDICTING GLOMERULAR FILTRATION RATE . ESTIMATED GFR I S NOT APPLICABLE FOR DIALYSIS PATIEN TS. Stitcher Hand JESSICA FRANKEL [id number] 12:24:36 Test Item Value Reference Range Interpretation Comments MAGNESIUM (BEAKER) 2.4 mg/dL 1.6-2.6 Specimen slightly (test code = 627) hemolyzed Stitcher Hand ID - MARLYS ERAD, CHEST, 1 VIEW, NON [id number] 12:18:00Reason for exam:->IABPShould this be performed at the bedside?->Yes [facility]ON[facility]LEZ DANAAbimael MELENDEZ : 1970 Sex: MFINAL REPORT RAD, CHEST, 1 VIEW, NON DEPT INDICATION: IABP COMPARISON: June FINDINGS: Portable frontal view of the chest. IMPRESSION: Support Lines: Stable. Lungs and pleura: Lungs are clear. No pneumothorax.Heart and mediastinum: Stable contours. Stable biventricular pacer.Additional findings: None. Signed: JR Dumont Robert MDReport Verified Date/Time: 06/17/2021 12:18:55 Reading Location: [facility] Radiology Reading Room OXYGEN SATURATION, [id number] 07:10:38 Test Item Value Reference Range Interpretation Comments O2 SATURATION (MEASURED) (BEAKER) 64.5 % (test code = 1455) [id number] 02:59:06 Test Item Value Reference Range Interpretation Comments PHOSPHORUS (BEAKER) 4.8 mg/dL 2.3-4.7 H Specimen slightly (test code = 604) hemolyzed Stitcher Hand ID - BSCOMPREHENSIVE METABOLIC [id number] 02:59:06 Test Item Value Reference Range Interpretation Comments TOTAL PROTEIN 8.0 gm/dL 6.0-8.3 Specimen sligh tly (BEAKER) (test code = hemoly zed 770) ALBUMIN (BEAKER) 4.2 g/dL 3.5-5.0 Specimen sl ightly (test code = 1145) hemolyzed ALKALINE PHOSPHATASE 121 U/L 40-150 (BEAKER) (test code = 346) BILIRUBIN TOTAL 0.8 mg/dL 0.2-1.2 Specimen sli ghtly (BEAKER) (test code = hemoly zed 377) SODIUM (BEAKER) (test 127 meq/L 136-145 L code = 381) POTASSIUM (BEAKER) 4.7 meq/L 3.5-5.1 Specimen slightly (test code = 379) hemolyzed CHLORIDE (BEAKER) 91 meq/L 98-107 L (test code = 382) CO2 (BEAKER) (test 23 meq/L 22-29 code = 355) BLOOD UREA NITROGEN 36 mg/dL 7-21 H (BEAKER) (test code = 354) CREATININE (BEAKER) 1.86 mg/dL 0.57-1.25 H Specimen slightly (test code = 358) hemolyzed GLUCOSE RANDOM 133 mg/dL 70-105 H (BEAKER) (test code = 652) CALCIUM (BEAKER) 9.3 mg/dL 8.4-10.2 (test code = 697) AST (SGOT) (BEAKER) 22 U/L 5-34 Specimen slightly (test code = 353) hemolyzed ALT (SGPT) (BEAKER) 14 U/L 6-55 Specimen slightly (test code = 347) hemolyzed EGFR (BEAKER) (test 39 mL/min/1.73 ESTIMA NEELA GFR IS code = 1092) sq m NOT ACCURATE CREATININE CLEARANCE IN PREDICTING GLOMERULAR FILTRATION RATE . ESTIMATED GFR I S NOT APPLICABLE FOR DIALYSIS PATIEN TS. Stitcher Hand ID - [id number] 02:59:05 Test Item Value Reference Range Interpretation Comments MAGNESIUM (BEAKER) 2.5 mg/dL 1.6-2.6 Specimen slightly (test code = 627) hemolyzed Stitcher Hand ID - BSCBC W/PLT COUNT & AUTO [id number] 02:56:52 Test Item Value Reference Range Interpretation Comments WHITE BLOOD CELL COUNT (BEAKER) 11.4 K/ L 3.5-10.5 H (test code = 775) RED BLOOD CELL COUNT (BEAKER) 3.79 M/ L 4.63-6.08 L (test code = 761) HEMOGLOBIN (BEAKER) (test code = 10.6 GM/DL 13.7-17.5 L 410) HEMATOCRIT (BEAKER) (test code = 33.8 % 40.1-51.0 L 411) MEAN CORPUSCULAR VOLUME (BEAKER) 89.2 fL 79.0-92.2 (test code = 753) MEAN CORPUSCULAR HEMOGLOBIN 28.0 pg 25.7-32.2 (BEAKER) (test code = 751) MEAN CORPUSCULAR HEMOGLOBIN CONC 31.4 GM/DL 32.3-36.5 L (BEAKER) (test code = 752) RED CELL DISTRIBUTION WIDTH 21.6 % 11.6-14.4 H (BEAKER) (test code = 412) PLATELET COUNT (BEAKER) (test 195 K/CU MM 150-450 code = 756) MEAN PLATELET VOLUME (BEAKER) 8.9 fL 9.4-12.4 L (test code = 754) NUCLEATED RED BLOOD CELLS 0 /100 WBC 0-0 (BEAKER) (test code = 413) NEUTROPHILS RELATIVE PERCENT 83 % (BEAKER) (test code = 429) LYMPHOCYTES RELATIVE PERCENT 9 % (BEAKER) (test code = 430) MONOCYTES RELATIVE PERCENT 5 % (BEAKER) (test code = 431) EOSINOPHILS RELATIVE PERCENT 3 % (BEAKER) (test code = 432) BASOPHILS RELATIVE PERCENT 0 % (BEAKER) (test code = 437) NEUTROPHILS ABSOLUTE COUNT 9.42 K/ L 1.78-5.38 H (BEAKER) (test code = 670) LYMPHOCYTES ABSOLUTE COUNT 1.06 K/ L 1.32-3.57 L (BEAKER) (test code = 414) MONOCYTES ABSOLUTE COUNT (BEAKER) 0.52 K/ L 0.30-0.82 (test code = 415) EOSINOPHILS ABSOLUTE COUNT 0.31 K/ L 0.04-0.54 (BEAKER) (test code = 416) BASOPHILS ABSOLUTE COUNT (BEAKER) 0.02 K/ L 0.01-0.08 (test code = 417) IMMATURE GRANULOCYTES-RELATIVE 1 % 0-1 PERCENT (BEAKER) (test code = 2801) [id number] 02:54:36 Test Item Value Reference Range Interpretation Comments PARTIAL THROMBOPLASTIN TIME 102.5 seconds 22.5-36.0 H (BEAKER) (test code = 760) CALCIUM, [id number] 02:41:23 Test Item Value Reference Range Interpretation Comments CALCIUM IONIZED (BEAKER) (test 1.14 mmol/L 1.12-1.27 code = 698) PH, BLOOD (BEAKER) (test code = 7.42 1810) [id number] 13:54:11 Test Item Value Reference Range Interpretation Comments MAGNESIUM (BEAKER) 2.5 mg/dL 1.6-2.6 Specimen slightly (test code = 627) hemolyzed Stitcher Hand ID - EMERSONBASIC METABOLIC [id number] 13:54:11 Test Item Value Reference Range Interpretation Comments SODIUM (BEAKER) 128 meq/L 136-145 L (test code = 381) POTASSIUM (BEAKER) 4.5 meq/L 3.5-5.1 Specimen slightly (test code = 379) hemolyzed CHLORIDE (BEAKER) 91 meq/L 98-107 L (test code = 382) CO2 (BEAKER) (test 25 meq/L 22-29 code = 355) BLOOD UREA NITROGEN 35 mg/dL 7-21 H (BEAKER) (test code = 354) CREATININE (BEAKER) 1.68 mg/dL 0.57-1.25 H Specimen slightly (test code = 358) hemolyzed GLUCOSE RANDOM 126 mg/dL 70-105 H (BEAKER) (test code = 652) CALCIUM (BEAKER) 9.3 mg/dL 8.4-10.2 (test code = 697) EGFR (BEAKER) (test 43 mL/min/1.73 ESTIMA NEELA GFR IS code = 1092) sq m NOT ACCURATE CREATININE CLEARANCE IN PREDICTING GLOMERULAR FILTRATION RATE . ESTIMATED GFR I S NOT APPLICABLE FOR DIALYSIS PATIEN TS. Stitcher Hand ID - [id number] 03:34:27 Test Item Value Reference Range Interpretation Comments PARTIAL THROMBOPLASTIN TIME 93.6 seconds 22.5-36.0 H (BEAKER) (test code = 760) [id number] 03:31:28 Test Item Value Reference Range Interpretation Comments MAGNESIUM (BEAKER) (test code = 2.4 mg/dL 1.6-2.6 627) Stitcher Hand ID - SOCO LBASIC METABOLIC [id number] 03:31:27 Test Item Value Reference Range Interpretation Comments SODIUM (BEAKER) 128 meq/L 136-145 L (test code = 381) POTASSIUM (BEAKER) 4.2 meq/L 3.5-5.1 (test code = 379) CHLORIDE (BEAKER) 90 meq/L 98-107 L (test code = 382) CO2 (BEAKER) (test 22 meq/L 22-29 code = 355) BLOOD UREA NITROGEN 34 mg/dL 7-21 H (BEAKER) (test code = 354) CREATININE (BEAKER) 1.70 mg/dL 0.57-1.25 H (test code = 358) GLUCOSE RANDOM 127 mg/dL 70-105 H (BEAKER) (test code = 652) CALCIUM (BEAKER) 9.4 mg/dL 8.4-10.2 (test code = 697) EGFR (BEAKER) (test 43 mL/min/1.73 ESTIMA NEELA GFR IS code = 1092) sq m NOT ACCURATE CREATININE CLEARANCE IN PREDICTING GLOMERULAR FILTRATION RATE . ESTIMATED GFR I S NOT APPLICABLE FOR DIALYSIS PATIEN TS. Stitcher Hand ID - PIAYA LCBC W/PLT COUNT & AUTO [id number] 03:21:53 Test Item Value Reference Range Interpretation Comments WHITE BLOOD CELL COUNT (BEAKER) 10.7 K/ L 3.5-10.5 H (test code = 775) RED BLOOD CELL COUNT (BEAKER) 3.83 M/ L 4.63-6.08 L (test code = 761) HEMOGLOBIN (BEAKER) (test code = 10.7 GM/DL 13.7-17.5 L 410) HEMATOCRIT (BEAKER) (test code = 34.1 % 40.1-51.0 L 411) MEAN CORPUSCULAR VOLUME (BEAKER) 89.0 fL 79.0-92.2 (test code = 753) MEAN CORPUSCULAR HEMOGLOBIN 27.9 pg 25.7-32.2 (BEAKER) (test code = 751) MEAN CORPUSCULAR HEMOGLOBIN CONC 31.4 GM/DL 32.3-36.5 L (BEAKER) (test code = 752) RED CELL DISTRIBUTION WIDTH 21.1 % 11.6-14.4 H (BEAKER) (test code = 412) PLATELET COUNT (BEAKER) (test 190 K/CU MM 150-450 code = 756) MEAN PLATELET VOLUME (BEAKER) 9.0 fL 9.4-12.4 L (test code = 754) NUCLEATED RED BLOOD CELLS 0 /100 WBC 0-0 (BEAKER) (test code = 413) NEUTROPHILS RELATIVE PERCENT 83 % (BEAKER) (test code = 429) LYMPHOCYTES RELATIVE PERCENT 9 % (BEAKER) (test code = 430) MONOCYTES RELATIVE PERCENT 4 % (BEAKER) (test code = 431) EOSINOPHILS RELATIVE PERCENT 2 % (BEAKER) (test code = 432) BASOPHILS RELATIVE PERCENT 0 % (BEAKER) (test code = 437) NEUTROPHILS ABSOLUTE COUNT 8.88 K/ L 1.78-5.38 H (BEAKER) (test code = 670) LYMPHOCYTES ABSOLUTE COUNT 0.99 K/ L 1.32-3.57 L (BEAKER) (test code = 414) MONOCYTES ABSOLUTE COUNT (BEAKER) 0.47 K/ L 0.30-0.82 (test code = 415) EOSINOPHILS ABSOLUTE COUNT 0.23 K/ L 0.04-0.54 (BEAKER) (test code = 416) BASOPHILS ABSOLUTE COUNT (BEAKER) 0.01 K/ L 0.01-0.08 (test code = 417) IMMATURE GRANULOCYTES-RELATIVE 1 % 0-1 PERCENT (BEAKER) (test code = 2801) OXYGEN SATURATION, [id number] 03:03:19 Test Item Value Reference Range Interpretation Comments O2 SATURATION (MEASURED) (BEAKER) 68.9 % (test code = 1455) SODIUM, RANDOM [id number] 13:42:05 Test Item Value Reference Range Interpretation Comments SODIUM URINE (BEAKER) (test code = 42 meq/L 243) Reference Range: No NormalsOperator ID - EMMANUEL FCHLORIDE, RANDOM URINE 2021-06-15 13:42:04 Test Item Value Reference Range Interpretation Comments CHLORIDE URINE (BEAKER) (test code = 61 meq/L 682) Reference Range: No [employer] ID - EMMANUEL FLACTATE DEHYDROGENASE (LDH) 2021-06-15 11:09:10 Test Item Value Reference Range Interpretation Comments LACTATE DEHYDROGENASE (BEAKER) (test 468 U/L 125-220 H code = 635) Stitcher Hand ID - EMMANUEL LALOD, CHEST, 1 VIEW, NON [id number] 11:05:00IABP locationReason for exam:->balloon pumpShould this be performed at the bedside?->No[facility] : 1970 Sex: MFINAL REPORT RAD, CHEST, 1 VIEW, NON DEPT CLINICAL INDICATION: balloon pump TECHNIQUE: AP view of the chest COMPARISON: Radiograph 06/13/2021 FINDINGS: Support devices are unchanged, including PA catheter terminating within a right upper lobe pulmonary artery branch. Lung volumes remainlow. Blunting of the right costophrenic angle may indicate a trace pleural effusion versus atelectasi s. No new focal consolidation or pneumothorax. Cardiomediastinal silhouette, shivam, and pulmonary vasculature are unchanged. IMPRESSION:No significant interval change. Signed: Tom Washington Verified Date/Time: 06/15/2021 11:05:12 OXYGEN SATURATION, [id number] 04:49:38 Test Item Value Reference Range Interpretation Comments O2 SATURATION (MEASURED) (BEAKER) 77.3 % (test code = 1455) HEPATIC FUNCTION [id number] 03:39:10 Test Item Value Reference Range Interpretation Comments TOTAL PROTEIN (BEAKER) (test code = 8.3 gm/dL 6.0-8.3 770) ALBUMIN (BEAKER) (test code = 1145) 4.5 g/dL 3.5-5.0 BILIRUBIN TOTAL (BEAKER) (test code 1.3 mg/dL 0.2-1.2 H = 377) BILIRUBIN DIRECT (BEAKER) (test 0.6 mg/dL 0.1-0.5 H code = 706) ALKALINE PHOSPHATASE (BEAKER) (test 134 U/L 40-150 code = 346) AST (SGOT) (BEAKER) (test code = 16 U/L 5-34 353) ALT (SGPT) (BEAKER) (test code = 15 U/L 6-55 347) Stitcher Hand ID - SO MBASIC METABOLIC [id number] 03:39:09 Test Item Value Reference Range Interpretation Comments SODIUM (BEAKER) 129 meq/L 136-145 L (test code = 381) POTASSIUM (BEAKER) 4.2 meq/L 3.5-5.1 (test code = 379) CHLORIDE (BEAKER) 88 meq/L 98-107 L (test code = 382) CO2 (BEAKER) (test 26 meq/L 22-29 code = 355) BLOOD UREA NITROGEN 29 mg/dL 7-21 H (BEAKER) (test code = 354) CREATININE (BEAKER) 1.59 mg/dL 0.57-1.25 H (test code = 358) GLUCOSE RANDOM 136 mg/dL 70-105 H (BEAKER) (test code = 652) CALCIUM (BEAKER) 10.1 mg/dL 8.4-10.2 (test code = 697) EGFR (BEAKER) (test 46 mL/min/1.73 ESTIMA NEELA GFR IS code = 1092) sq m NOT ACCURATE CREATININE CLEARANCE IN PREDICTING GLOMERULAR FILTRATION RATE . ESTIMATED GFR I S NOT APPLICABLE FOR DIALYSIS PATIEN TS. Stitcher Hand ID - SO [id number] 03:39:09 Test Item Value Reference Range Interpretation Comments MAGNESIUM (BEAKER) (test code = 2.3 mg/dL 1.6-2.6 627) Stitcher Hand ID - SO [id number] 03:24:24 Test Item Value Reference Range Interpretation Comments PARTIAL THROMBOPLASTIN TIME 79.6 seconds 22.5-36.0 H (BEAKER) (test code = 760) CBC W/PLT COUNT & AUTO [id number] 03:21:47 Test Item Value Reference Range Interpretation Comments WHITE BLOOD CELL COUNT (BEAKER) 11.4 K/ L 3.5-10.5 H (test code = 775) RED BLOOD CELL COUNT (BEAKER) 3.95 M/ L 4.63-6.08 L (test code = 761) HEMOGLOBIN (BEAKER) (test code = 10.9 GM/DL 13.7-17.5 L 410) HEMATOCRIT (BEAKER) (test code = 35.0 % 40.1-51.0 L 411) MEAN CORPUSCULAR VOLUME (BEAKER) 88.6 fL 79.0-92.2 (test code = 753) MEAN CORPUSCULAR HEMOGLOBIN 27.6 pg 25.7-32.2 (BEAKER) (test code = 751) MEAN CORPUSCULAR HEMOGLOBIN CONC 31.1 GM/DL 32.3-36.5 L (BEAKER) (test code = 752) RED CELL DISTRIBUTION WIDTH 20.8 % 11.6-14.4 H (BEAKER) (test code = 412) PLATELET COUNT (BEAKER) (test 190 K/CU MM 150-450 code = 756) MEAN PLATELET VOLUME (BEAKER) 8.8 fL 9.4-12.4 L (test code = 754) NUCLEATED RED BLOOD CELLS 0 /100 WBC 0-0 (BEAKER) (test code = 413) NEUTROPHILS RELATIVE PERCENT 84 % (BEAKER) (test code = 429) LYMPHOCYTES RELATIVE PERCENT 9 % (BEAKER) (test code = 430) MONOCYTES RELATIVE PERCENT 4 % (BEAKER) (test code = 431) EOSINOPHILS RELATIVE PERCENT 2 % (BEAKER) (test code = 432) BASOPHILS RELATIVE PERCENT 0 % (BEAKER) (test code = 437) NEUTROPHILS ABSOLUTE COUNT 9.58 K/ L 1.78-5.38 H (BEAKER) (test code = 670) LYMPHOCYTES ABSOLUTE COUNT 0.99 K/ L 1.32-3.57 L (BEAKER) (test code = 414) MONOCYTES ABSOLUTE COUNT (BEAKER) 0.49 K/ L 0.30-0.82 (test code = 415) EOSINOPHILS ABSOLUTE COUNT 0.24 K/ L 0.04-0.54 (BEAKER) (test code = 416) BASOPHILS ABSOLUTE COUNT (BEAKER) 0.03 K/ L 0.01-0.08 (test code = 417) IMMATURE GRANULOCYTES-RELATIVE 1 % 0-1 PERCENT (BEAKER) (test code = 2801) BASIC METABOLIC [id number] 23:09:33 Test Item Value Reference Range Interpretation Comments SODIUM (BEAKER) 128 meq/L 136-145 L (test code = 381) POTASSIUM (BEAKER) 4.8 meq/L 3.5-5.1 Specimen slightly (test code = 379) hemolyzed CHLORIDE (BEAKER) 89 meq/L 98-107 L (test code = 382) CO2 (BEAKER) (test 23 meq/L 22-29 code = 355) BLOOD UREA NITROGEN 27 mg/dL 7-21 H (BEAKER) (test code = 354) CREATININE (BEAKER) 1.52 mg/dL 0.57-1.25 H Specimen slightly (test code = 358) hemolyzed GLUCOSE RANDOM 133 mg/dL 70-105 H (BEAKER) (test code = 652) CALCIUM (BEAKER) 9.8 mg/dL 8.4-10.2 (test code = 697) EGFR (BEAKER) (test 49 mL/min/1.73 ESTIMA NEELA GFR IS code = 1092) sq m NOT ACCURATE CREATININE CLEARANCE IN PREDICTING GLOMERULAR FILTRATION RATE . ESTIMATED GFR I S NOT APPLICABLE FOR DIALYSIS PATIEN TS. Stitcher Hand ID - [id number] 23:09:32 Test Item Value Reference Range Interpretation Comments MAGNESIUM (BEAKER) 2.3 mg/dL 1.6-2.6 Specimen slightly (test code = 627) hemolyzed Stitcher Hand ID - [id number] 18:31:15 Test Item Value Reference Range Interpretation Comments PARTIAL THROMBOPLASTIN TIME 87.2 seconds 22.5-36.0 H (BEAKER) (test code = 760) [id number] 15:33:28 Test Item Value Reference Range Interpretation Comments MAGNESIUM (BEAKER) (test code = 2.1 mg/dL 1.6-2.6 627) Stitcher Hand ID - DBBASIC METABOLIC [id number] 15:33:27 Test Item Value Reference Range Interpretation Comments SODIUM (BEAKER) 130 meq/L 136-145 L (test code = 381) POTASSIUM (BEAKER) 4.4 meq/L 3.5-5.1 (test code = 379) CHLORIDE (BEAKER) 89 meq/L 98-107 L (test code = 382) CO2 (BEAKER) (test 30 meq/L 22-29 H code = 355) BLOOD UREA NITROGEN 25 mg/dL 7-21 H (BEAKER) (test code = 354) CREATININE (BEAKER) 1.42 mg/dL 0.57-1.25 H (test code = 358) GLUCOSE RANDOM 145 mg/dL 70-105 H (BEAKER) (test code = 652) CALCIUM (BEAKER) 9.7 mg/dL 8.4-10.2 (test code = 697) EGFR (BEAKER) (test 53 mL/min/1.73 ESTIMA NEELA GFR IS code = 1092) sq m NOT ACCURATE CREATININE CLEARANCE IN PREDICTING GLOMERULAR FILTRATION RATE . ESTIMATED GFR I S NOT APPLICABLE FOR DIALYSIS PATIEN TS. Stitcher Hand ID - [id number] 13:12:43 Test Item Value Reference Range Interpretation Comments PARTIAL THROMBOPLASTIN TIME 65.3 seconds 22.5-36.0 H (BEAKER) (test code = 760) [id number] 11:01:39 Test Item Value Reference Range Interpretation Comments FIBRINOGEN LEVEL (BEAKER) (test 681 mg/dl 225-434 H code = 658) [id number] 11:01:38 Test Item Value Reference Range Interpretation Comments PROTIME (BEAKER) (test 15.1 seconds 11.9-14.2 H code = 759) INR (BEAKER) (test 1.21 See_Comment [Automat ed code = 370) message] The sy stem which generated this result transmitted reference range : <=5.90. The reference range was not used to interpret this result as normal/abnormal . PARTIAL THROMBOPLASTIN 73.1 seconds 22.5-36.0 H TIME (BEAKER) (test code = 760) RECOMMENDED COUMADIN/WARFARIN INR THERAPY RANGESSTANDARD DOSE: 2.0 - 3.0 Includes: PROPHYLAXIS for venous thrombosis, systemic embolization; TREATMENT for venous thrombosis and/or pulmonary embolus.HIGH RISK: Target INR is 2.5-3.5 for patients with mechanical heart valves.HEPATIC FUNCTION [id number] 04:55:09 Test Item Value Reference Range Interpretation Comments TOTAL PROTEIN (BEAKER) 8.0 gm/dL 6.0-8.3 Speci men slightly (test code = 770) hemolyzed ALBUMIN (BEAKER) (test 4.1 g/dL 3.5-5.0 Speci men slightly code = 1145) hemolyzed BILIRUBIN TOTAL 1.2 mg/dL 0.2-1.2 Specimen sli ghtly (BEAKER) (test code = hemoly zed 377) BILIRUBIN DIRECT 0.4 mg/dL 0.1-0.5 Specimen sl ightly (BEAKER) (test code = hemoly zed 706) ALKALINE PHOSPHATASE 133 U/L 40-150 (BEAKER) (test code = 346) AST (SGOT) (BEAKER) 27 U/L 5-34 Specimen slightly (test code = 353) hemolyzed ALT (SGPT) (BEAKER) 17 U/L 6-55 Specimen slightly (test code = 347) hemolyzed Stitcher Hand ID - SO MBASIC METABOLIC [id number] 04:55:08 Test Item Value Reference Range Interpretation Comments SODIUM (BEAKER) 129 meq/L 136-145 L (test code = 381) POTASSIUM (BEAKER) 4.7 meq/L 3.5-5.1 Specimen slightly (test code = 379) hemolyzed CHLORIDE (BEAKER) 87 meq/L 98-107 L (test code = 382) CO2 (BEAKER) (test 29 meq/L 22-29 code = 355) BLOOD UREA NITROGEN 23 mg/dL 7-21 H (BEAKER) (test code = 354) CREATININE (BEAKER) 1.34 mg/dL 0.57-1.25 H Specimen slightly (test code = 358) hemolyzed GLUCOSE RANDOM 128 mg/dL 70-105 H (BEAKER) (test code = 652) CALCIUM (BEAKER) 9.7 mg/dL 8.4-10.2 (test code = 697) EGFR (BEAKER) (test 56 mL/min/1.73 ESTIMA NEELA GFR IS code = 1092) sq m NOT ACCURATE CREATININE CLEARANCE IN PREDICTING GLOMERULAR FILTRATION RATE . ESTIMATED GFR I S NOT APPLICABLE FOR DIALYSIS PATIEN TS. Stitcher Hand ID - SO [id number] 04:55:07 Test Item Value Reference Range Interpretation Comments MAGNESIUM (BEAKER) 2.3 mg/dL 1.6-2.6 Specimen slightly (test code = 627) hemolyzed Stitcher Hand ID - SO [id number] 04:38:41 Test Item Value Reference Range Interpretation Comments PARTIAL THROMBOPLASTIN TIME 62.2 seconds 22.5-36.0 H (BEAKER) (test code = 760) OXYGEN SATURATION, [id number] 04:33:34 Test Item Value Reference Range Interpretation Comments O2 SATURATION (MEASURED) (BEAKER) 61.0 % (test code = 1455) CBC W/PLT COUNT & AUTO [id number] 04:33:01 Test Item Value Reference Range Interpretation Comments WHITE BLOOD CELL COUNT (BEAKER) 10.3 K/ L 3.5-10.5 (test code = 775) RED BLOOD CELL COUNT (BEAKER) 3.71 M/ L 4.63-6.08 L (test code = 761) HEMOGLOBIN (BEAKER) (test code = 10.6 GM/DL 13.7-17.5 L 410) HEMATOCRIT (BEAKER) (test code = 33.3 % 40.1-51.0 L 411) MEAN CORPUSCULAR VOLUME (BEAKER) 89.8 fL 79.0-92.2 (test code = 753) MEAN CORPUSCULAR HEMOGLOBIN 28.6 pg 25.7-32.2 (BEAKER) (test code = 751) MEAN CORPUSCULAR HEMOGLOBIN CONC 31.8 GM/DL 32.3-36.5 L (BEAKER) (test code = 752) RED CELL DISTRIBUTION WIDTH 20.2 % 11.6-14.4 H (BEAKER) (test code = 412) PLATELET COUNT (BEAKER) (test 230 K/CU MM 150-450 code = 756) MEAN PLATELET VOLUME (BEAKER) 9.3 fL 9.4-12.4 L (test code = 754) NUCLEATED RED BLOOD CELLS 0 /100 WBC 0-0 (BEAKER) (test code = 413) NEUTROPHILS RELATIVE PERCENT 77 % (BEAKER) (test code = 429) LYMPHOCYTES RELATIVE PERCENT 14 % (BEAKER) (test code = 430) MONOCYTES RELATIVE PERCENT 6 % (BEAKER) (test code = 431) EOSINOPHILS RELATIVE PERCENT 3 % (BEAKER) (test code = 432) BASOPHILS RELATIVE PERCENT 0 % (BEAKER) (test code = 437) NEUTROPHILS ABSOLUTE COUNT 7.94 K/ L 1.78-5.38 H (BEAKER) (test code = 670) LYMPHOCYTES ABSOLUTE COUNT 1.40 K/ L 1.32-3.57 (BEAKER) (test code = 414) MONOCYTES ABSOLUTE COUNT (BEAKER) 0.63 K/ L 0.30-0.82 (test code = 415) EOSINOPHILS ABSOLUTE COUNT 0.27 K/ L 0.04-0.54 (BEAKER) (test code = 416) BASOPHILS ABSOLUTE COUNT (BEAKER) 0.03 K/ L 0.01-0.08 (test code = 417) IMMATURE GRANULOCYTES-RELATIVE 1 % 0-1 PERCENT (BEAKER) (test code = 2801) [id number] 21:44:00 Test Item Value Reference Range Interpretation Comments MAGNESIUM (BEAKER) 2.0 mg/dL 1.6-2.6 Specimen slightly (test code = 627) hemolyzed Stitcher Hand ID - DBBASIC METABOLIC [id number] 21:44:00 Test Item Value Reference Range Interpretation Comments SODIUM (BEAKER) 129 meq/L 136-145 L (test code = 381) POTASSIUM (BEAKER) 5.0 meq/L 3.5-5.1 Specimen slightly (test code = 379) hemolyzed CHLORIDE (BEAKER) 88 meq/L 98-107 L (test code = 382) CO2 (BEAKER) (test 27 meq/L 22-29 code = 355) BLOOD UREA NITROGEN 23 mg/dL 7-21 H (BEAKER) (test code = 354) CREATININE (BEAKER) 1.44 mg/dL 0.57-1.25 H Specimen slightly (test code = 358) hemolyzed GLUCOSE RANDOM 136 mg/dL 70-105 H (BEAKER) (test code = 652) CALCIUM (BEAKER) 9.6 mg/dL 8.4-10.2 (test code = 697) EGFR (BEAKER) (test 52 mL/min/1.73 ESTIMA NEELA GFR IS code = 1092) sq m NOT ACCURATE CREATININE CLEARANCE IN PREDICTING GLOMERULAR FILTRATION RATE . ESTIMATED GFR I S NOT APPLICABLE FOR DIALYSIS PATIEN TS. Stitcher Hand ID - DBOXYGEN SATURATION, [id number] 17:39:00 Test Item Value Reference Range Interpretation Comments O2 SATURATION (MEASURED) (BEAKER) 75.9 % (test code = 1455) OXYGEN SATURATION, [id number] 14:26:00 Test Item Value Reference Range Interpretation Comments O2 SATURATION (MEASURED) (BEAKER) 45.9 % (test code = 1455) RAD, CHEST, 1 VIEW, NON [id number] 13:49:00Reason for exam:->IABPShould this be performed at the bedside?->Yes [facility]LE[facility] DANAAbimael MELENDEZ : 1970 Sex: MFINAL REPORT CLINICAL HISTORY: IABP TECHNIQUE: 1 view of the chest. COMPARISON: 06/13/2021 IMPRESSION: A new IABP catheter tip projects at the aortic arch. The tip of the [place] catheter remains in the right upper lobe pulmonary artery. A right PICC line is again seen. There are no new infiltrates. Blunting of the right costophrenic angle is again noted. The cardiomediastinal silhouette is magnified by technique with a pacemaker. Signed: Constantine Araiza MDReport Verified Date/Time: 06/13/2021 13:49:46 Reading Location: [facility] Radiology Reading Room BASIC METABOLIC [id number] 13:31:00 Test Item Value Reference Range Interpretation Comments SODIUM (BEAKER) 131 meq/L 136-145 L (test code = 381) POTASSIUM (BEAKER) 4.0 meq/L 3.5-5.1 (test code = 379) CHLORIDE (BEAKER) 90 meq/L 98-107 L (test code = 382) CO2 (BEAKER) (test 29 meq/L 22-29 code = 355) BLOOD UREA NITROGEN 18 mg/dL 7-21 (BEAKER) (test code = 354) CREATININE (BEAKER) 1.26 mg/dL 0.57-1.25 H (test code = 358) GLUCOSE RANDOM 122 mg/dL 70-105 H (BEAKER) (test code = 652) CALCIUM (BEAKER) 9.5 mg/dL 8.4-10.2 (test code = 697) EGFR (BEAKER) (test 61 mL/min/1.73 ESTIMA NEELA GFR IS code = 1092) sq m NOT ACCURATE CREATININE CLEARANCE IN PREDICTING GLOMERULAR FILTRATION RATE . ESTIMATED GFR I S NOT APPLICABLE FOR DIALYSIS PATIEN TS. Stitcher Hand ID - LEANNE [id number] 13:31:00 Test Item Value Reference Range Interpretation Comments MAGNESIUM (BEAKER) (test code = 1.9 mg/dL 1.6-2.6 627) Stitcher Hand ID - LEANNE [id number] 06:28:00 Test Item Value Reference Range Interpretation Comments MAGNESIUM (BEAKER) 2.1 mg/dL 1.6-2.6 Specimen moderately (test code = 627) hemolyzed Stitcher Hand ID - SOCO LBASIC METABOLIC [id number] 06:28:00 Test Item Value Reference Range Interpretation Comments SODIUM (BEAKER) 132 meq/L 136-145 L (test code = 381) POTASSIUM (BEAKER) 4.4 meq/L 3.5-5.1 Specimen moderately (test code = 379) hemolyzed CHLORIDE (BEAKER) 89 meq/L 98-107 L (test code = 382) CO2 (BEAKER) (test 31 meq/L 22-29 H code = 355) BLOOD UREA NITROGEN 20 mg/dL 7-21 (BEAKER) (test code = 354) CREATININE (BEAKER) 1.31 mg/dL 0.57-1.25 H Specimen moderately (test code = 358) hemolyzed GLUCOSE RANDOM 128 mg/dL 70-105 H (BEAKER) (test code = 652) CALCIUM (BEAKER) 9.9 mg/dL 8.4-10.2 (test code = 697) EGFR (BEAKER) (test 58 mL/min/1.73 ESTIMA NEELA GFR IS code = 1092) sq m NOT ACCURATE CREATININE CLEARANCE IN PREDICTING GLOMERULAR FILTRATION RATE . ESTIMATED GFR I S NOT APPLICABLE FOR DIALYSIS PATIEN TS. Stitcher Hand ID - SOCO LHEPATIC FUNCTION [id number] 06:28:00 Test Item Value Reference Range Interpretation Comments TOTAL PROTEIN (BEAKER) 8.2 gm/dL 6.0-8.3 Speci men moderately (test code = 770) hemolyzed ALBUMIN (BEAKER) (test 4.0 g/dL 3.5-5.0 Speci men moderately code = 1145) hemolyzed BILIRUBIN TOTAL 1.1 mg/dL 0.2-1.2 Specimen mod erately (BEAKER) (test code = hemoly zed 377) BILIRUBIN DIRECT 0.3 mg/dL 0.1-0.5 Specimen mo derately (BEAKER) (test code = hemoly zed 706) ALKALINE PHOSPHATASE 136 U/L 40-150 (BEAKER) (test code = 346) AST (SGOT) (BEAKER) 52 U/L 5-34 H Specimen moderately (test code = 353) hemolyzed ALT (SGPT) (BEAKER) 21 U/L 6-55 Specimen moderately (test code = 347) hemolyzed Stitcher Hand ID Sal WAN LCBC W/PLT COUNT & AUTO [id number] 06:16:00 Test Item Value Reference Range Interpretation Comments WHITE BLOOD CELL COUNT (BEAKER) 11.9 K/ L 3.5-10.5 H (test code = 775) RED BLOOD CELL COUNT (BEAKER) 3.63 M/ L 4.63-6.08 L (test code = 761) HEMOGLOBIN (BEAKER) (test code = 9.9 GM/DL 13.7-17.5 L 410) HEMATOCRIT (BEAKER) (test code = 31.8 % 40.1-51.0 L 411) MEAN CORPUSCULAR VOLUME (BEAKER) 87.6 fL 79.0-92.2 (test code = 753) MEAN CORPUSCULAR HEMOGLOBIN 27.3 pg 25.7-32.2 (BEAKER) (test code = 751) MEAN CORPUSCULAR HEMOGLOBIN CONC 31.1 GM/DL 32.3-36.5 L (BEAKER) (test code = 752) RED CELL DISTRIBUTION WIDTH 19.8 % 11.6-14.4 H (BEAKER) (test code = 412) PLATELET COUNT (BEAKER) (test 223 K/CU MM 150-450 code = 756) MEAN PLATELET VOLUME (BEAKER) 9.3 fL 9.4-12.4 L (test code = 754) NUCLEATED RED BLOOD CELLS 0 /100 WBC 0-0 (BEAKER) (test code = 413) NEUTROPHILS RELATIVE PERCENT 80 % (BEAKER) (test code = 429) LYMPHOCYTES RELATIVE PERCENT 11 % (BEAKER) (test code = 430) MONOCYTES RELATIVE PERCENT 6 % (BEAKER) (test code = 431) EOSINOPHILS RELATIVE PERCENT 2 % (BEAKER) (test code = 432) BASOPHILS RELATIVE PERCENT 0 % (BEAKER) (test code = 437) NEUTROPHILS ABSOLUTE COUNT 9.54 K/ L 1.78-5.38 H (BEAKER) (test code = 670) LYMPHOCYTES ABSOLUTE COUNT 1.36 K/ L 1.32-3.57 (BEAKER) (test code = 414) MONOCYTES ABSOLUTE COUNT (BEAKER) 0.65 K/ L 0.30-0.82 (test code = 415) EOSINOPHILS ABSOLUTE COUNT 0.27 K/ L 0.04-0.54 (BEAKER) (test code = 416) BASOPHILS ABSOLUTE COUNT (BEAKER) 0.02 K/ L 0.01-0.08 (test code = 417) IMMATURE GRANULOCYTES-RELATIVE 1 % 0-1 PERCENT (BEAKER) (test code = 2801) [id number] 06:00:00 Test Item Value Reference Range Interpretation Comments PARTIAL THROMBOPLASTIN TIME 74.3 seconds 22.5-36.0 H (BEAKER) (test code = 760) OXYGEN SATURATION, [id number] 05:22:00 Test Item Value Reference Range Interpretation Comments O2 SATURATION (MEASURED) (BEAKER) 55.9 % (test code = 1455) RAD, CHEST, 1 VIEW, NON [id number] 04:45:00Reason for exam:- >intubationShould this be performed at the bedside?->Yes [facility] : 1970 Sex: MFINAL REPORT RAD, CHEST, 1 VIEW, NON DEPT INDICATION: intubation COMPARISON: Prior day's exam FINDINGS: Portable frontal view of the chest. IMPRESSION: Support Lines: Stable. Lungs and pleura: Unchanged interstitial edema and trace pleural effusions. No new consolidation. No pneumothorax.Heart and mediastinum: Stable contours with cardiomegaly.Additional findings: None. Signed: Herb Zuleta Verified Date/Time: 06/13/2021 04:45:55 -COV2/RT-PCR ([facility])2021-06-13 00:10:00 Test Item Value Reference Range Interpretation Comments SARS-COV2/RT-PCR Negative Negative The SARS-Co V-2 target (test code = nucleic acids a re not [id number]) detected in thi s specimen. Negative result s do not preclude SARS-C oV-2 infection and s hould not be used as the ludmila e basis for patient managem ent decisions. Nega tive results must be combine d with clinical observ ations, patient history , and epidemiological information. A false negativ e result may occur if a spec imen is improperly gia ected, transported or handled. This SARS CoV-2 test is a rapid, real-time RT-PC R test intended for th e qualitative detection of nu cleic acid from SARS-CoV-2 in a nasopharyngeal swab specimen collected from individuals suspected of CO VID-19 by their healthcar e provider. This test has been authorized by FDA under an EUA for use by authorized laboratories. This test is only authorized for the duration of the declaration that circumstances exist justifying the authorization of emergency use of in vitro diagnostic tests for detection and/or diagnosis of COVID-19 under Section 564(b)(1) of the Federal Food, Drug and Cosmetic Act, 21 U.S.C. 360bbb-3(b)(1), unless the authorization is terminated or revoked sooner. Fact Sheet for Healthcare Providers: https://www.[employer] m/Documents/Xpert%20Xpress%20SARS%20CoV-2/Fact%20Sheets/393-8039%50FWAG-JVH-8%20 HEALTHCARE%20PROVIDERS%20FACT%20SHEET.pdf Fact Sheet for Healthcare Patients: https://www.[employer]/Documents/Xpert%20Xp ress%20SARS%20CoV-2/Fact%20Sheets/660-6455%54EFGR-JCU-9%20PATIENT%20FACT%20SHEET .pdfBASIC METABOLIC [id number] 21:46:00 Test Item Value Reference Range Interpretation Comments SODIUM (BEAKER) 130 meq/L 136-145 L (test code = 381) POTASSIUM (BEAKER) 4.0 meq/L 3.5-5.1 (test code = 379) CHLORIDE (BEAKER) 89 meq/L 98-107 L (test code = 382) CO2 (BEAKER) (test 27 meq/L 22-29 code = 355) BLOOD UREA NITROGEN 20 mg/dL 7-21 (BEAKER) (test code = 354) CREATININE (BEAKER) 1.25 mg/dL 0.57-1.25 (test code = 358) GLUCOSE RANDOM 142 mg/dL 70-105 H (BEAKER) (test code = 652) CALCIUM (BEAKER) 9.0 mg/dL 8.4-10.2 (test code = 697) EGFR (BEAKER) (test 61 mL/min/1.73 ESTIMA NEELA GFR IS code = 1092) sq m NOT ACCURATE CREATININE CLEARANCE IN PREDICTING GLOMERULAR FILTRATION RATE . ESTIMATED GFR I S NOT APPLICABLE FOR DIALYSIS PATIEN TS. Stitcher Hand ID - [id number] 21:46:00 Test Item Value Reference Range Interpretation Comments MAGNESIUM (BEAKER) (test code = 2.3 mg/dL 1.6-2.6 627) Stitcher Hand ID - [id number] 21:39:00 Test Item Value Reference Range Interpretation Comments PARTIAL THROMBOPLASTIN TIME 80.4 seconds 22.5-36.0 H (BEAKER) (test code = 760) RAD, CHEST, 1 VIEW, NON [id number] 14:45:00Reason for exam:->IABP positionShould this be performed at the bedside?->Yes [facility] 1970 Sex: MFINAL REPORT CLINICAL HISTORY: IABP position TECHNIQUE: 1 view of the chest. COMPARISON: 06/12/2021 IMPRESSION: The tip of the IABP catheter is roughly 9 cm below the aortic knob. A rightPICC line and right jugular [place] catheter are again seen. Pulmonary vascular congestive findings are similar appearing. There is no lobar consolidation. Subpulmonic pleural effusions cannot be excluded. Cardiomegaly is again seen with a pacemaker. Signed: Constantine Araiza Verified Date/Time: 06/12/2021 14:45:36 Reading Location: [facility] Radiology Reading Room RAD, ABDOMEN/KUB, 1 VIEW [id number] 14:17:00Reason for exam:->IABPShould this be performed at the bedside?->Yes [facility] : 1970 Sex: MFINAL REPORT CLINICAL HISTORY: IABP TECHNIQUE: Supine abdomen COMPARISON: 06/10/2021 IMPRESSION: An IABP catheter tip projects at the level of the T10-T11 disc space. The visualized bowelgas pattern demonstrates a large amount stool in the colon. Free air and air-fluid levels are not definitively seen, but also cannot be excluded on the supine view. Signed: Constantine Araiza Verified Date/Time: 06/12/2021 14:17:52 Reading Location: [facility] Radiology Reading Room [id number] 14:14:00 Test Item Value Reference Range Interpretation Comments MAGNESIUM (BEAKER) 1.8 mg/dL 1.6-2.6 Specimen slightly (test code = 627) hemolyzed Stitcher Hand ID Sal BENITEZ FBASIC METABOLIC [id number] 14:14:00 Test Item Value Reference Range Interpretation Comments SODIUM (BEAKER) 130 meq/L 136-145 L (test code = 381) POTASSIUM (BEAKER) 4.6 meq/L 3.5-5.1 Specimen slightly (test code = 379) hemolyzed CHLORIDE (BEAKER) 91 meq/L 98-107 L (test code = 382) CO2 (BEAKER) (test 27 meq/L 22-29 code = 355) BLOOD UREA NITROGEN 19 mg/dL 7-21 (BEAKER) (test code = 354) CREATININE (BEAKER) 1.26 mg/dL 0.57-1.25 H Specimen slightly (test code = 358) hemolyzed GLUCOSE RANDOM 150 mg/dL 70-105 H (BEAKER) (test code = 652) CALCIUM (BEAKER) 8.9 mg/dL 8.4-10.2 (test code = 697) EGFR (BEAKER) (test 61 mL/min/1.73 ESTIMA NEELA GFR IS code = 1092) sq m NOT ACCURATE CREATININE CLEARANCE IN PREDICTING GLOMERULAR FILTRATION RATE . ESTIMATED GFR I S NOT APPLICABLE FOR DIALYSIS PATIEN TS. Stitcher Hand ID Sal BENITEZ [id number] 13:52:00 Test Item Value Reference Range Interpretation Comments PARTIAL THROMBOPLASTIN TIME 38.3 seconds 22.5-36.0 H (BEAKER) (test code = 760) RAD, CHEST, 1 VIEW, NON [id number] 12:01:00Reason for exam:->iabp positionShould this be performed at the bedside?->Yes [facility] : 1970 Sex: MFINAL REPORT TECHNIQUE: One view of the chest. INDICATION: 51-year-old man with intra-aortic balloon pump position. COMPARISON: Chest radiograph from less than an hour prior. FINDINGS: LINES/TUBES/DEVICES: Suspected Intra-aortic balloon pump tip terminates approximately 8.7 cm below the top of the aortic arch. No significant change in additional lines/tubes/devices. LUNGS: Persistent prominence of the pulmonary vasculature with mild interstitial opacities. PLEURA: No pneumothorax or significant pleural effusion. HEART AND MEDIASTINUM: Cardiomediastinal silhouette is unchanged. BONESAND SOFT TISSUES: Unremarkable. IMPRESSION:Lines/tubes/devices as above. Otherwise, no significant change since chest radiograph from less than one hour prior. Signed: Donaldo Carty MDReport VerifiedDate/Time: 06/12/2021 12:01:47 RAD, CHEST, 1 VIEW, NON [id number] 12:00:00Reason for exam:->IABP readjustmentShould this be performed at the bedside?->[facility] : 1970 Sex: MFINAL REPORT TECHNIQUE: One view of the chest. INDICATION: 51-year-old man with intra-aortic balloon pump readjustment. COMPARISON: Chest radiograph from seven hours prior. FINDINGS: LINES/TUBES/DEVICES: Intra-aortic balloon pump terminates approximately 10.9 cm below the top of the aortic arch. No significant change in additional lines/tubes/devices. LUNGS: Persistent prominence of the pulmonary vasculature with mild interstitial opacities. PLEURA: No pneumothorax or significant pleural effusion. HEART AND MEDIASTINUM: Cardiomediastinal silhouette is unchanged. BONES AND SOFT TISSUES: Unremarkable. IMPRESSION:Lines/tubes/devices as above. Otherwise, no significant change since chest radiograph from seven hours prior. Signed: Donaldo Cartyort Verified Date/Time: 112:00:05 RAD, CHEST, 1 VIEW, NON [id number] 10:27:00Reason for exam:->intubationShould this be performed at the bedside?->Yes[facility] : 1970 Sex: MFINAL REPORT CLINICAL HISTORY: intubation TECHNIQUE: 1 view of the chest. COMPARISON: 06/11/2021 IMPRESSION: The ETT and NGT have been removed. The IABP marker is no longer seen. A [place] catheter and right PICC line are again noted. Pulmonary vascular congestive findings are similarappearing. The lung bases are partially excluded and pleural effusions cannot be excluded. Cardiomegaly is again seen with a pacemaker. Signed: Constantine Araiza MDReport Verified Date/Time: 06/12/2021 10:27:38 Reading Location: [facility] Radiology Reading Room BASIC METABOLIC [id number] 03:30:00 Test Item Value Reference Range Interpretation Comments SODIUM (BEAKER) 131 meq/L 136-145 L (test code = 381) POTASSIUM (BEAKER) 3.8 meq/L 3.5-5.1 (test code = 379) CHLORIDE (BEAKER) 89 meq/L 98-107 L (test code = 382) CO2 (BEAKER) (test 32 meq/L 22-29 H code = 355) BLOOD UREA NITROGEN 23 mg/dL 7-21 H (BEAKER) (test code = 354) CREATININE (BEAKER) 1.32 mg/dL 0.57-1.25 H (test code = 358) GLUCOSE RANDOM 145 mg/dL 70-105 H (BEAKER) (test code = 652) CALCIUM (BEAKER) 8.9 mg/dL 8.4-10.2 (test code = 697) EGFR (BEAKER) (test 57 mL/min/1.73 ESTIMA NEELA GFR IS code = 1092) sq m NOT ACCURATE CREATININE CLEARANCE IN PREDICTING GLOMERULAR FILTRATION RATE . ESTIMATED GFR I S NOT APPLICABLE FOR DIALYSIS PATIEN TS. Stitcher Hand ID - SO [id number] 03:30:00 Test Item Value Reference Range Interpretation Comments MAGNESIUM (BEAKER) (test code = 1.8 mg/dL 1.6-2.6 627) Stitcher Hand ID - SO MHEPATIC FUNCTION [id number] 03:30:00 Test Item Value Reference Range Interpretation Comments TOTAL PROTEIN (BEAKER) (test code = 7.2 gm/dL 6.0-8.3 770) ALBUMIN (BEAKER) (test code = 1145) 3.9 g/dL 3.5-5.0 BILIRUBIN TOTAL (BEAKER) (test code 1.0 mg/dL 0.2-1.2 = 377) BILIRUBIN DIRECT (BEAKER) (test 0.5 mg/dL 0.1-0.5 code = 706) ALKALINE PHOSPHATASE (BEAKER) (test 109 U/L 40-150 code = 346) AST (SGOT) (BEAKER) (test code = 15 U/L 5-34 353) ALT (SGPT) (BEAKER) (test code = 20 U/L 6-55 347) Stitcher Hand ID - SO [id number] 03:20:00 Test Item Value Reference Range Interpretation Comments PARTIAL THROMBOPLASTIN TIME 67.0 seconds 22.5-36.0 H (BEAKER) (test code = 760) CBC W/PLT COUNT & AUTO [id number] 03:11:00 Test Item Value Reference Range Interpretation Comments WHITE BLOOD CELL COUNT (BEAKER) 10.7 K/ L 3.5-10.5 H (test code = 775) RED BLOOD CELL COUNT (BEAKER) 3.38 M/ L 4.63-6.08 L (test code = 761) HEMOGLOBIN (BEAKER) (test code = 9.3 GM/DL 13.7-17.5 L 410) HEMATOCRIT (BEAKER) (test code = 30.1 % 40.1-51.0 L 411) MEAN CORPUSCULAR VOLUME (BEAKER) 89.1 fL 79.0-92.2 (test code = 753) MEAN CORPUSCULAR HEMOGLOBIN 27.5 pg 25.7-32.2 (BEAKER) (test code = 751) MEAN CORPUSCULAR HEMOGLOBIN CONC 30.9 GM/DL 32.3-36.5 L (BEAKER) (test code = 752) RED CELL DISTRIBUTION WIDTH 19.6 % 11.6-14.4 H (BEAKER) (test code = 412) PLATELET COUNT (BEAKER) (test 237 K/CU MM 150-450 code = 756) MEAN PLATELET VOLUME (BEAKER) 9.0 fL 9.4-12.4 L (test code = 754) NUCLEATED RED BLOOD CELLS 0 /100 WBC 0-0 (BEAKER) (test code = 413) NEUTROPHILS RELATIVE PERCENT 79 % (BEAKER) (test code = 429) LYMPHOCYTES RELATIVE PERCENT 12 % (BEAKER) (test code = 430) MONOCYTES RELATIVE PERCENT 5 % (BEAKER) (test code = 431) EOSINOPHILS RELATIVE PERCENT 2 % (BEAKER) (test code = 432) BASOPHILS RELATIVE PERCENT 0 % (BEAKER) (test code = 437) NEUTROPHILS ABSOLUTE COUNT 8.45 K/ L 1.78-5.38 H (BEAKER) (test code = 670) LYMPHOCYTES ABSOLUTE COUNT 1.28 K/ L 1.32-3.57 L (BEAKER) (test code = 414) MONOCYTES ABSOLUTE COUNT (BEAKER) 0.58 K/ L 0.30-0.82 (test code = 415) EOSINOPHILS ABSOLUTE COUNT 0.24 K/ L 0.04-0.54 (BEAKER) (test code = 416) BASOPHILS ABSOLUTE COUNT (BEAKER) 0.03 K/ L 0.01-0.08 (test code = 417) IMMATURE GRANULOCYTES-RELATIVE 1 % 0-1 PERCENT (BEAKER) (test code = 2801) OXYGEN SATURATION, [id number] 03:01:00 Test Item Value Reference Range Interpretation Comments O2 SATURATION (MEASURED) (BEAKER) 59.6 % (test code = 1455) BASIC METABOLIC [id number] 21:48:00 Test Item Value Reference Range Interpretation Comments SODIUM (BEAKER) 131 meq/L 136-145 L (test code = 381) POTASSIUM (BEAKER) 3.9 meq/L 3.5-5.1 (test code = 379) CHLORIDE (BEAKER) 92 meq/L 98-107 L (test code = 382) CO2 (BEAKER) (test 29 meq/L 22-29 code = 355) BLOOD UREA NITROGEN 22 mg/dL 7-21 H (BEAKER) (test code = 354) CREATININE (BEAKER) 1.31 mg/dL 0.57-1.25 H (test code = 358) GLUCOSE RANDOM 133 mg/dL 70-105 H (BEAKER) (test code = 652) CALCIUM (BEAKER) 9.0 mg/dL 8.4-10.2 (test code = 697) EGFR (BEAKER) (test 58 mL/min/1.73 ESTIMA NEELA GFR IS code = 1092) sq m NOT ACCURATE CREATININE CLEARANCE IN PREDICTING GLOMERULAR FILTRATION RATE . ESTIMATED GFR I S NOT APPLICABLE FOR DIALYSIS PATIEN TS. Stitcher Hand ID - [id number] 21:48:00 Test Item Value Reference Range Interpretation Comments MAGNESIUM (BEAKER) (test code = 2.2 mg/dL 1.6-2.6 627) Stitcher Hand ID - BSOXYGEN SATURATION, [id number] 21:40:00 Test Item Value Reference Range Interpretation Comments O2 SATURATION (MEASURED) (BEAKER) 62.9 % (test code = 1455) [id number] 21:36:00 Test Item Value Reference Range Interpretation Comments PARTIAL THROMBOPLASTIN TIME 53.1 seconds 22.5-36.0 H (BEAKER) (test code = 760) OXYGEN SATURATION, [id number] 21:11:00 Test Item Value Reference Range Interpretation Comments O2 SATURATION (MEASURED) (BEAKER) 98.0 % (test code = 1455) BLOOD GAS, [id number] 18:45:00 Test Item Value Reference Range Interpretation Comments PH ARTERIAL (BEAKER) (test code = 7.45 7.35-7.45 383) PCO2 ARTERIAL (BEAKER) (test code 41 mm Hg 35-45 = 384) PO2 ARTERIAL (BEAKER) (test code = 135 mm Hg 80-90 H 385) O2 SATURATION ARTERIAL (BEAKER) 98.8 % 96.0-97.0 H (test code = 386) HCO3 ARTERIAL (BEAKER) (test code 28 mmol/L 21-29 = 388) BASE EXCESS ARTERIAL (BEAKER) 3.2 mmol/L -2.0-3.0 H (test code = 387) PATIENT TEMPERATURE (BEAKER) (test 36.9 code = 1818) FIO2 (BEAKER) (test code = 1819) 36.0 OXYGEN SATURATION, [id number] 18:29:00 Test Item Value Reference Range Interpretation Comments O2 SATURATION (MEASURED) (BEAKER) 51.4 % (test code = 1455) [id number] 16:53:00 Test Item Value Reference Range Interpretation Comments PARTIAL THROMBOPLASTIN TIME 61.6 seconds 22.5-36.0 H (BEAKER) (test code = 760) OXYGEN SATURATION, [id number] 15:35:00 Test Item Value Reference Range Interpretation Comments O2 SATURATION (MEASURED) (BEAKER) 34.1 % (test code = 1455) OXYGEN SATURATION, [id number] 15:10:00 Test Item Value Reference Range Interpretation Comments O2 SATURATION (MEASURED) (BEAKER) 37.7 % (test code = 1455) BASIC METABOLIC [id number] 11:41:00 Test Item Value Reference Range Interpretation Comments SODIUM (BEAKER) 132 meq/L 136-145 L (test code = 381) POTASSIUM (BEAKER) 4.1 meq/L 3.5-5.1 (test code = 379) CHLORIDE (BEAKER) 95 meq/L 98-107 L (test code = 382) CO2 (BEAKER) (test 28 meq/L 22-29 code = 355) BLOOD UREA NITROGEN 21 mg/dL 7-21 (BEAKER) (test code = 354) CREATININE (BEAKER) 1.17 mg/dL 0.57-1.25 (test code = 358) GLUCOSE RANDOM 133 mg/dL 70-105 H (BEAKER) (test code = 652) CALCIUM (BEAKER) 8.9 mg/dL 8.4-10.2 (test code = 697) EGFR (BEAKER) (test 66 mL/min/1.73 ESTIMA NEELA GFR IS code = 1092) sq m NOT ACCURATE CREATININE CLEARANCE IN PREDICTING GLOMERULAR FILTRATION RATE . ESTIMATED GFR I S NOT APPLICABLE FOR DIALYSIS PATIEN TS. Stitcher Hand ID - PIAYA [id number] 11:41:00 Test Item Value Reference Range Interpretation Comments MAGNESIUM (BEAKER) (test code = 2.0 mg/dL 1.6-2.6 627) Stitcher Hand ID - SOCO LRAD, CHEST, 1 VIEW, NON [id number] 09:53:00Reason for exam:->intubationShould this be performed at the bedside?->Yes [facility] : 1970 Sex: MFINAL REPORT CLINICAL HISTORY: intubation TECHNIQUE: 1 view of the chest. COMPARISON: 06/10/2021 IMPRESSION: The lung bases are excluded. An NGT extends below the lower edge of the film. The ETT projects at the clavicles. The other lines and tubes are grossly unchanged. Diffuse bilateralairspace opacities are similar versus slightly increased. Pleural effusions cannot be excluded. The cardiomediastinal silhouette is magnified by technique with a pacemaker. Signed: Constantine Araiza MDReport Verified Date/Time: 06/11/2021 09:53:23 Reading Location: [facility] Radiology Reading Room [id number] 09:50:00 Test Item Value Reference Range Interpretation Comments PARTIAL THROMBOPLASTIN TIME 51.2 seconds 22.5-36.0 H (BEAKER) (test code = 760) BLOOD GAS, [id number] 06:59:00 Test Item Value Reference Range Interpretation Comments PH ARTERIAL (BEAKER) (test code = 7.50 7.35-7.45 H 383) PCO2 ARTERIAL (BEAKER) (test code 41 mm Hg 35-45 = 384) PO2 ARTERIAL (BEAKER) (test code = 120 mm Hg 80-90 H 385) O2 SATURATION ARTERIAL (BEAKER) 98.6 % 96.0-97.0 H (test code = 386) HCO3 ARTERIAL (BEAKER) (test code 31 mmol/L 21-29 H = 388) BASE EXCESS ARTERIAL (BEAKER) 7.5 mmol/L -2.0-3.0 H (test code = 387) PATIENT TEMPERATURE (BEAKER) (test 37.0 code = 1818) FIO2 (BEAKER) (test code = 1819) 40.0 [id number] 05:13:00 Test Item Value Reference Range Interpretation Comments MAGNESIUM (BEAKER) 2.2 mg/dL 1.6-2.6 Specimen slightly (test code = 627) hemolyzed Stitcher Hand ID - PIAYA LBASIC METABOLIC [id number] 05:13:00 Test Item Value Reference Range Interpretation Comments SODIUM (BEAKER) 135 meq/L 136-145 L (test code = 381) POTASSIUM (BEAKER) 4.3 meq/L 3.5-5.1 Specimen slightly (test code = 379) hemolyzed CHLORIDE (BEAKER) 95 meq/L 98-107 L (test code = 382) CO2 (BEAKER) (test 26 meq/L 22-29 code = 355) BLOOD UREA NITROGEN 20 mg/dL 7-21 (BEAKER) (test code = 354) CREATININE (BEAKER) 1.06 mg/dL 0.57-1.25 Specimen slightly (test code = 358) hemolyzed GLUCOSE RANDOM 127 mg/dL 70-105 H (BEAKER) (test code = 652) CALCIUM (BEAKER) 8.7 mg/dL 8.4-10.2 (test code = 697) EGFR (BEAKER) (test 74 mL/min/1.73 ESTIMA NEELA GFR IS code = 1092) sq m NOT ACCURATE CREATININE CLEARANCE IN PREDICTING GLOMERULAR FILTRATION RATE . ESTIMATED GFR I S NOT APPLICABLE FOR DIALYSIS PATIEN TS. Stitcher Hand ID - PIAYA LHEPATIC FUNCTION [id number] 05:13:00 Test Item Value Reference Range Interpretation Comments TOTAL PROTEIN (BEAKER) 7.5 gm/dL 6.0-8.3 Speci men slightly (test code = 770) hemolyzed ALBUMIN (BEAKER) (test 3.9 g/dL 3.5-5.0 Speci men slightly code = 1145) hemolyzed BILIRUBIN TOTAL 1.1 mg/dL 0.2-1.2 Specimen sli ghtly (BEAKER) (test code = hemoly zed 377) BILIRUBIN DIRECT 0.4 mg/dL 0.1-0.5 Specimen sl ightly (BEAKER) (test code = hemoly zed 706) ALKALINE PHOSPHATASE 121 U/L 40-150 (BEAKER) (test code = 346) AST (SGOT) (BEAKER) 28 U/L 5-34 Specimen slightly (test code = 353) hemolyzed ALT (SGPT) (BEAKER) 23 U/L 6-55 Specimen slightly (test code = 347) hemolyzed Stitcher Hand ID - PIAYA LBLOOD GAS, [id number] 05:03:00 Test Item Value Reference Range Interpretation Comments PH ARTERIAL (BEAKER) (test code = 7.53 7.35-7.45 H 383) PCO2 ARTERIAL (BEAKER) (test code 37 mm Hg 35-45 = 384) PO2 ARTERIAL (BEAKER) (test code = 186 mm Hg 80-90 H 385) O2 SATURATION ARTERIAL (BEAKER) 99.4 % 96.0-97.0 H (test code = 386) HCO3 ARTERIAL (BEAKER) (test code 30 mmol/L 21-29 H = 388) BASE EXCESS ARTERIAL (BEAKER) 6.8 mmol/L -2.0-3.0 H (test code = 387) PATIENT TEMPERATURE (BEAKER) (test 37.2 code = 1818) FIO2 (BEAKER) (test code = 1819) 60.0 POCT-GLUCOSE [id number] 04:40:00 Test Item Value Reference Range Interpretation Comments POC-GLUCOSE METER 131 mg/dL 70-110 H : TESTED A T [facility] 6720 (BEAKER) (test code = MELVINA SANTO AR, 1538) 18376: Stitcher Hand/Techni ebenezer ID = [id number] for [place] (V)RAJ OXYGEN SATURATION, [id number] 03:30:00 Test Item Value Reference Range Interpretation Comments O2 SATURATION (MEASURED) (BEAKER) 81.0 % (test code = 1455) [id number] 03:26:00 Test Item Value Reference Range Interpretation Comments PARTIAL THROMBOPLASTIN TIME 47.1 seconds 22.5-36.0 H (BEAKER) (test code = 760) CBC W/PLT COUNT & AUTO [id number] 03:15:00 Test Item Value Reference Range Interpretation Comments WHITE BLOOD CELL COUNT (BEAKER) 11.9 K/ L 3.5-10.5 H (test code = 775) RED BLOOD CELL COUNT (BEAKER) 3.63 M/ L 4.63-6.08 L (test code = 761) HEMOGLOBIN (BEAKER) (test code = 9.9 GM/DL 13.7-17.5 L 410) HEMATOCRIT (BEAKER) (test code = 31.3 % 40.1-51.0 L 411) MEAN CORPUSCULAR VOLUME (BEAKER) 86.2 fL 79.0-92.2 (test code = 753) MEAN CORPUSCULAR HEMOGLOBIN 27.3 pg 25.7-32.2 (BEAKER) (test code = 751) MEAN CORPUSCULAR HEMOGLOBIN CONC 31.6 GM/DL 32.3-36.5 L (BEAKER) (test code = 752) RED CELL DISTRIBUTION WIDTH 19.0 % 11.6-14.4 H (BEAKER) (test code = 412) PLATELET COUNT (BEAKER) (test 270 K/CU MM 150-450 code = 756) MEAN PLATELET VOLUME (BEAKER) 9.0 fL 9.4-12.4 L (test code = 754) NUCLEATED RED BLOOD CELLS 0 /100 WBC 0-0 (BEAKER) (test code = 413) NEUTROPHILS RELATIVE PERCENT 85 % (BEAKER) (test code = 429) LYMPHOCYTES RELATIVE PERCENT 9 % (BEAKER) (test code = 430) MONOCYTES RELATIVE PERCENT 5 % (BEAKER) (test code = 431) EOSINOPHILS RELATIVE PERCENT 1 % (BEAKER) (test code = 432) BASOPHILS RELATIVE PERCENT 0 % (BEAKER) (test code = 437) NEUTROPHILS ABSOLUTE COUNT 10.06 K/ L 1.78-5.38 H (BEAKER) (test code = 670) LYMPHOCYTES ABSOLUTE COUNT 1.07 K/ L 1.32-3.57 L (BEAKER) (test code = 414) MONOCYTES ABSOLUTE COUNT (BEAKER) 0.55 K/ L 0.30-0.82 (test code = 415) EOSINOPHILS ABSOLUTE COUNT 0.07 K/ L 0.04-0.54 (BEAKER) (test code = 416) BASOPHILS ABSOLUTE COUNT (BEAKER) 0.02 K/ L 0.01-0.08 (test code = 417) IMMATURE GRANULOCYTES-RELATIVE 1 % 0-1 PERCENT (BEAKER) (test code = 2801) POCT-GLUCOSE [id number] 23:28:00 Test Item Value Reference Range Interpretation Comments POC-GLUCOSE METER 127 mg/dL 70-110 H : TESTED A T [facility] 6720 (BEAKER) (test code = MELVINA SANTO AR, 1538) [id number]: Stitcher Hand/Techni ebenezer ID = [id number] for [facility] RAD, ABDOMEN/KUB, 1 VIEW [id number] 21:49:00Reason for exam:->OG tube placementCH[facility] : 1970 Sex: MFINAL REPORT EXAM: KUB CLINICAL HISTORY: NG tube insertion FINDINGS: The tip of the nasogastric tube overlies the region of the gastric fundus. Air- filled nondilated small bowel loops are noted throughout the abdomen. Moderate retained feces are also seen throughout the colon. The regional osseous structures are unremarkable. Signed: Rivas Tang MDReport Verified Date/Time: 06/10/2021 21:49:10 [facility] METABOLIC [id number] 21:38:00 Test Item Value Reference Range Interpretation Comments SODIUM (BEAKER) 132 meq/L 136-145 L (test code = 381) POTASSIUM (BEAKER) 4.1 meq/L 3.5-5.1 (test code = 379) CHLORIDE (BEAKER) 93 meq/L 98-107 L (test code = 382) CO2 (BEAKER) (test 28 meq/L 22-29 code = 355) BLOOD UREA NITROGEN 21 mg/dL 7-21 (BEAKER) (test code = 354) CREATININE (BEAKER) 1.14 mg/dL 0.57-1.25 (test code = 358) GLUCOSE RANDOM 152 mg/dL 70-105 H (BEAKER) (test code = 652) CALCIUM (BEAKER) 8.6 mg/dL 8.4-10.2 (test code = 697) EGFR (BEAKER) (test 68 mL/min/1.73 ESTIMA NEELA GFR IS code = 1092) sq m NOT ACCURATE CREATININE CLEARANCE IN PREDICTING GLOMERULAR FILTRATION RATE . ESTIMATED GFR I S NOT APPLICABLE FOR DIALYSIS PATIEN TS. Stitcher Hand ID - [id number] 21:38:00 Test Item Value Reference Range Interpretation Comments MAGNESIUM (BEAKER) (test code = 1.8 mg/dL 1.6-2.6 627) Stitcher Hand ID - [id number] 21:31:00 Test Item Value Reference Range Interpretation Comments PARTIAL THROMBOPLASTIN TIME 54.5 seconds 22.5-36.0 H (BEAKER) (test code = 760) BLOOD GAS, [id number] 21:11:00 Test Item Value Reference Range Interpretation Comments PH ARTERIAL (BEAKER) (test code = 7.50 7.35-7.45 H 383) PCO2 ARTERIAL (BEAKER) (test code 39 mm Hg 35-45 = 384) PO2 ARTERIAL (BEAKER) (test code = 170 mm Hg 80-90 H 385) O2 SATURATION ARTERIAL (BEAKER) 99.3 % 96.0-97.0 H (test code = 386) HCO3 ARTERIAL (BEAKER) (test code 30 mmol/L 21-29 H = 388) BASE EXCESS ARTERIAL (BEAKER) 6.5 mmol/L -2.0-3.0 H (test code = 387) PATIENT TEMPERATURE (BEAKER) (test 37.5 code = 1818) FIO2 (BEAKER) (test code = 1819) 60.0 RAD, CHEST, 1 VIEW, NON [id number] 18:37:00Reason for exam:->resp failureShould this be performed at the bedside?->Yes [facility] : 1970 Sex: MFINAL REPORT EXAM: Chest one view COMPARISON: June 03, 2021 CLINICAL HISTORY: Respiratory failure FINDINGS: The endotracheal tube overlies the trachea with its tip approximately 5 cm above the vicki. The tip of the intra- aortic balloon pump overlies the region of the aortic knob. There is persistent cardiomegaly with mild right pleural effusion. There is no evidence of pneumothorax. The regional osseous structures are unremarkable. There is interval insertion of a right internal jugular central venous catheter with its tip overlying the cavoatrial junction. The right arm PICC andleft subclavian ICD appears unchanged in position. Signed: Rivas Tang MDReport Verified Date/Time: 06/10/2021 18:37:49 CBC W/PLT COUNT & AUTO [id number] 16:05:00 Test Item Value Reference Range Interpretation Comments WHITE BLOOD CELL COUNT (BEAKER) 14.7 K/ L 3.5-10.5 H (test code = 775) RED BLOOD CELL COUNT (BEAKER) 3.84 M/ L 4.63-6.08 L (test code = 761) HEMOGLOBIN (BEAKER) (test code = 10.4 GM/DL 13.7-17.5 L 410) HEMATOCRIT (BEAKER) (test code = 33.1 % 40.1-51.0 L 411) MEAN CORPUSCULAR VOLUME (BEAKER) 86.2 fL 79.0-92.2 (test code = 753) MEAN CORPUSCULAR HEMOGLOBIN 27.1 pg 25.7-32.2 (BEAKER) (test code = 751) MEAN CORPUSCULAR HEMOGLOBIN CONC 31.4 GM/DL 32.3-36.5 L (BEAKER) (test code = 752) RED CELL DISTRIBUTION WIDTH 18.6 % 11.6-14.4 H (BEAKER) (test code = 412) PLATELET COUNT (BEAKER) (test 340 K/CU MM 150-450 code = 756) MEAN PLATELET VOLUME (BEAKER) 9.3 fL 9.4-12.4 L (test code = 754) NUCLEATED RED BLOOD CELLS 0 /100 WBC 0-0 (BEAKER) (test code = 413) NEUTROPHILS RELATIVE PERCENT 87 % (BEAKER) (test code = 429) LYMPHOCYTES RELATIVE PERCENT 6 % (BEAKER) (test code = 430) MONOCYTES RELATIVE PERCENT 5 % (BEAKER) (test code = 431) EOSINOPHILS RELATIVE PERCENT 0 % (BEAKER) (test code = 432) BASOPHILS RELATIVE PERCENT 0 % (BEAKER) (test code = 437) NEUTROPHILS ABSOLUTE COUNT 12.85 K/ L 1.78-5.38 H (BEAKER) (test code = 670) LYMPHOCYTES ABSOLUTE COUNT 0.95 K/ L 1.32-3.57 L (BEAKER) (test code = 414) MONOCYTES ABSOLUTE COUNT (BEAKER) 0.72 K/ L 0.30-0.82 (test code = 415) EOSINOPHILS ABSOLUTE COUNT 0.02 K/ L 0.04-0.54 L (BEAKER) (test code = 416) BASOPHILS ABSOLUTE COUNT (BEAKER) 0.02 K/ L 0.01-0.08 (test code = 417) IMMATURE GRANULOCYTES-RELATIVE 1 % 0-1 PERCENT (BEAKER) (test code = 2801) BASIC METABOLIC [id number] 15:48:00 Test Item Value Reference Range Interpretation Comments SODIUM (BEAKER) 131 meq/L 136-145 L (test code = 381) POTASSIUM (BEAKER) 3.3 meq/L 3.5-5.1 L (test code = 379) CHLORIDE (BEAKER) 92 meq/L 98-107 L (test code = 382) CO2 (BEAKER) (test 27 meq/L 22-29 code = 355) BLOOD UREA NITROGEN 22 mg/dL 7-21 H (BEAKER) (test code = 354) CREATININE (BEAKER) 1.15 mg/dL 0.57-1.25 (test code = 358) GLUCOSE RANDOM 157 mg/dL 70-105 H (BEAKER) (test code = 652) CALCIUM (BEAKER) 9.2 mg/dL 8.4-10.2 (test code = 697) EGFR (BEAKER) (test 67 mL/min/1.73 ESTIMA NEELA GFR IS code = 1092) sq m NOT ACCURATE CREATININE CLEARANCE IN PREDICTING GLOMERULAR FILTRATION RATE . ESTIMATED GFR I S NOT APPLICABLE FOR DIALYSIS PATIEN TS. Stitcher Hand ID - [id number] 15:48:00 Test Item Value Reference Range Interpretation Comments MAGNESIUM (BEAKER) (test code = 1.8 mg/dL 1.6-2.6 627) Stitcher Hand ID - BSOXYGEN SATURATION, [id number] 15:34:00 Test Item Value Reference Range Interpretation Comments O2 SATURATION (MEASURED) (BEAKER) 78.1 % (test code = 1455) BLOOD GAS, [id number] 15:31:00 Test Item Value Reference Range Interpretation Comments PH ARTERIAL (BEAKER) (test code = 7.51 7.35-7.45 H 383) PCO2 ARTERIAL (BEAKER) (test code 34 mm Hg 35-45 L = 384) PO2 ARTERIAL (BEAKER) (test code = 167 mm Hg 80-90 H 385) O2 SATURATION ARTERIAL (BEAKER) 99.3 % 96.0-97.0 H (test code = 386) HCO3 ARTERIAL (BEAKER) (test code 27 mmol/L 21-29 = 388) BASE EXCESS ARTERIAL (BEAKER) 4.1 mmol/L -2.0-3.0 H (test code = 387) PATIENT TEMPERATURE (BEAKER) (test 36.5 code = 1818) FIO2 (BEAKER) (test code = 1819) 60.0 [id number] 15:28:00 Test Item Value Reference Range Interpretation Comments PARTIAL THROMBOPLASTIN TIME 56.3 seconds 22.5-36.0 H (BEAKER) (test code = 760) PLATELET [id number] 15:18:00 Test Item Value Reference Range Interpretation Comments PLATELET COUNT (BEAKER) (test 305 K/CU MM 150-450 code = 756) Stitcher Hand ID - [id number] GAS, [id number] 11:46:00 Test Item Value Reference Range Interpretation Comments PH ARTERIAL (BEAKER) (test code = 7.27 7.35-7.45 L 383) PCO2 ARTERIAL (BEAKER) (test code 65 mm Hg 35-45 H = 384) PO2 ARTERIAL (BEAKER) (test code = 80 mm Hg 80-90 385) O2 SATURATION ARTERIAL (BEAKER) 93.9 % 96.0-97.0 L (test code = 386) HCO3 ARTERIAL (BEAKER) (test code 29 mmol/L 21-29 = 388) BASE EXCESS ARTERIAL (BEAKER) 1.3 mmol/L -2.0-3.0 (test code = 387) PATIENT TEMPERATURE (BEAKER) (test 37.0 code = 1818) FIO2 (BEAKER) (test code = 1819) 100.0 SODIUM NA-STAT [id number] 11:46:00 Test Item Value Reference Range Interpretation Comments SODIUM (BEAKER) (test code = 381) 128 meq/L 136-145 L GLUCOSE-STAT [id number] 11:46:00 Test Item Value Reference Range Interpretation Comments GLUCOSE RANDOM (BEAKER) (test code 150 mg/dL 70-110 H = 652) HGB/HCT (H&H) - STAT [id number] 11:46:00 Test Item Value Reference Range Interpretation Comments HEMOGLOBIN (BEAKER) (test code = 10.7 GM/DL 13.0-16.8 L 410) HEMATOCRIT (BEAKER) (test code = 31.0 % 40.0-50.0 L 411) POTASSIUM-STAT [id number] 11:45:00 Test Item Value Reference Range Interpretation Comments POTASSIUM (BEAKER) (test code = 3.5 meq/L 3.6-5.5 L 379) BASIC METABOLIC [id number] 09:45:00 Test Item Value Reference Range Interpretation Comments SODIUM (BEAKER) 128 meq/L 136-145 L (test code = 381) POTASSIUM (BEAKER) 4.5 meq/L 3.5-5.1 Specimen slightly (test code = 379) hemolyzed CHLORIDE (BEAKER) 90 meq/L 98-107 L (test code = 382) CO2 (BEAKER) (test 26 meq/L 22-29 code = 355) BLOOD UREA NITROGEN 22 mg/dL 7-21 H (BEAKER) (test code = 354) CREATININE (BEAKER) 1.15 mg/dL 0.57-1.25 Specimen slightly (test code = 358) hemolyzed GLUCOSE RANDOM 149 mg/dL 70-105 H (BEAKER) (test code = 652) CALCIUM (BEAKER) 9.0 mg/dL 8.4-10.2 (test code = 697) EGFR (BEAKER) (test 67 mL/min/1.73 ESTIMA NEELA GFR IS code = 1092) sq m NOT ACCURATE CREATININE CLEARANCE IN PREDICTING GLOMERULAR FILTRATION RATE . ESTIMATED GFR I S NOT APPLICABLE FOR DIALYSIS PATIEN TS. Stitcher Hand ID - LEANNE CCOMPREHENSIVE METABOLIC [id number] 06:10:00 Test Item Value Reference Range Interpretation Comments TOTAL PROTEIN 7.4 gm/dL 6.0-8.3 (BEAKER) (test code = 770) ALBUMIN (BEAKER) 4.1 g/dL 3.5-5.0 (test code = 1145) ALKALINE PHOSPHATASE 125 U/L 40-150 (BEAKER) (test code = 346) BILIRUBIN TOTAL 1.2 mg/dL 0.2-1.2 (BEAKER) (test code = 377) SODIUM (BEAKER) (test 128 meq/L 136-145 L code = 381) POTASSIUM (BEAKER) 3.6 meq/L 3.5-5.1 (test code = 379) CHLORIDE (BEAKER) 88 meq/L 98-107 L (test code = 382) CO2 (BEAKER) (test 27 meq/L 22-29 code = 355) BLOOD UREA NITROGEN 20 mg/dL 7-21 (BEAKER) (test code = 354) CREATININE (BEAKER) 1.07 mg/dL 0.57-1.25 (test code = 358) GLUCOSE RANDOM 148 mg/dL 70-105 H (BEAKER) (test code = 652) CALCIUM (BEAKER) 9.2 mg/dL 8.4-10.2 (test code = 697) AST (SGOT) (BEAKER) 18 U/L 5-34 (test code = 353) ALT (SGPT) (BEAKER) 15 U/L 6-55 (test code = 347) EGFR (BEAKER) (test 73 mL/min/1.73 ESTIMA NEELA GFR IS code = 1092) sq m NOT ACCURATE CREATININE CLEARANCE IN PREDICTING GLOMERULAR FILTRATION RATE . ESTIMATED GFR I S NOT APPLICABLE FOR DIALYSIS PATIEN TS. Stitcher Hand ID - SO [id number] 06:10:00 Test Item Value Reference Range Interpretation Comments MAGNESIUM (BEAKER) (test code = 1.8 mg/dL 1.6-2.6 627) Stitcher Hand ID - SO [id number] 06:10:00 Test Item Value Reference Range Interpretation Comments PHOSPHORUS (BEAKER) (test code = 3.2 mg/dL 2.3-4.7 604) Stitcher Hand ID - SO MHEPATIC FUNCTION [id number] 06:10:00 Test Item Value Reference Range Interpretation Comments TOTAL PROTEIN (BEAKER) (test code = 7.4 gm/dL 6.0-8.3 770) ALBUMIN (BEAKER) (test code = 1145) 4.1 g/dL 3.5-5.0 BILIRUBIN TOTAL (BEAKER) (test code 1.2 mg/dL 0.2-1.2 = 377) BILIRUBIN DIRECT (BEAKER) (test 0.6 mg/dL 0.1-0.5 H code = 706) ALKALINE PHOSPHATASE (BEAKER) (test 125 U/L 40-150 code = 346) AST (SGOT) (BEAKER) (test code = 18 U/L 5-34 353) ALT (SGPT) (BEAKER) (test code = 15 U/L 6-55 347) Stitcher Hand ID - SO [facility]BC W/PLT COUNT & AUTO [id number] 05:50:00 Test Item Value Reference Range Interpretation Comments WHITE BLOOD CELL COUNT (BEAKER) 12.6 K/ L 3.5-10.5 H (test code = 775) RED BLOOD CELL COUNT (BEAKER) 3.41 M/ L 4.63-6.08 L (test code = 761) HEMOGLOBIN (BEAKER) (test code = 9.3 GM/DL 13.7-17.5 L 410) HEMATOCRIT (BEAKER) (test code = 29.7 % 40.1-51.0 L 411) MEAN CORPUSCULAR VOLUME (BEAKER) 87.1 fL 79.0-92.2 (test code = 753) MEAN CORPUSCULAR HEMOGLOBIN 27.3 pg 25.7-32.2 (BEAKER) (test code = 751) MEAN CORPUSCULAR HEMOGLOBIN CONC 31.3 GM/DL 32.3-36.5 L (BEAKER) (test code = 752) RED CELL DISTRIBUTION WIDTH 18.4 % 11.6-14.4 H (BEAKER) (test code = 412) PLATELET COUNT (BEAKER) (test 357 K/CU MM 150-450 code = 756) MEAN PLATELET VOLUME (BEAKER) 9.7 fL 9.4-12.4 (test code = 754) NUCLEATED RED BLOOD CELLS 0 /100 WBC 0-0 (BEAKER) (test code = 413) NEUTROPHILS RELATIVE PERCENT 82 % (BEAKER) (test code = 429) LYMPHOCYTES RELATIVE PERCENT 11 % (BEAKER) (test code = 430) MONOCYTES RELATIVE PERCENT 5 % (BEAKER) (test code = 431) EOSINOPHILS RELATIVE PERCENT 1 % (BEAKER) (test code = 432) BASOPHILS RELATIVE PERCENT 0 % (BEAKER) (test code = 437) NEUTROPHILS ABSOLUTE COUNT 10.32 K/ L 1.78-5.38 H (BEAKER) (test code = 670) LYMPHOCYTES ABSOLUTE COUNT 1.44 K/ L 1.32-3.57 (BEAKER) (test code = 414) MONOCYTES ABSOLUTE COUNT (BEAKER) 0.59 K/ L 0.30-0.82 (test code = 415) EOSINOPHILS ABSOLUTE COUNT 0.13 K/ L 0.04-0.54 (BEAKER) (test code = 416) BASOPHILS ABSOLUTE COUNT (BEAKER) 0.03 K/ L 0.01-0.08 (test code = 417) IMMATURE GRANULOCYTES-RELATIVE 1 % 0-1 PERCENT (BEAKER) (test code = 2801) CALCIUM, [id number] 05:31:00 Test Item Value Reference Range Interpretation Comments CALCIUM IONIZED (BEAKER) (test 1.03 mmol/L 1.12-1.27 L code = 698) PH, BLOOD (BEAKER) (test code = 7.51 1810) [id number] 18:25:00 Test Item Value Reference Range Interpretation Comments MAGNESIUM (BEAKER) 1.9 mg/dL 1.6-2.6 Specimen slightly (test code = 627) hemolyzed Stitcher Hand JESSICA BENITEZ FBASIC METABOLIC [id number] 18:25:00 Test Item Value Reference Range Interpretation Comments SODIUM (BEAKER) 129 meq/L 136-145 L (test code = 381) POTASSIUM (BEAKER) 3.4 meq/L 3.5-5.1 L Specimen slightly (test code = 379) hemolyzed CHLORIDE (BEAKER) 89 meq/L 98-107 L (test code = 382) CO2 (BEAKER) (test 28 meq/L 22-29 code = 355) BLOOD UREA NITROGEN 19 mg/dL 7-21 (BEAKER) (test code = 354) CREATININE (BEAKER) 1.06 mg/dL 0.57-1.25 Specimen slightly (test code = 358) hemolyzed GLUCOSE RANDOM 130 mg/dL 70-105 H (BEAKER) (test code = 652) CALCIUM (BEAKER) 9.1 mg/dL 8.4-10.2 (test code = 697) EGFR (BEAKER) (test 74 mL/min/1.73 ESTIMA NEELA GFR IS code = 1092) sq m NOT ACCURATE CREATININE CLEARANCE IN PREDICTING GLOMERULAR FILTRATION RATE . ESTIMATED GFR I S NOT APPLICABLE FOR DIALYSIS PATIEN TS. Stitcher Hand JESSICA BENITEZ [id number] 04:20:00 Test Item Value Reference Range Interpretation Comments MAGNESIUM (BEAKER) 1.8 mg/dL 1.6-2.6 Specimen slightly (test code = 627) hemolyzed Stitcher Hand ID - FAUZIA [id number] 04:20:00 Test Item Value Reference Range Interpretation Comments PHOSPHORUS (BEAKER) 3.3 mg/dL 2.3-4.7 Specimen slightly (test code = 604) hemolyzed Stitcher Hand ID - FAUZIA WCOMPREHENSIVE METABOLIC [id number] 04:20:00 Test Item Value Reference Range Interpretation Comments TOTAL PROTEIN 7.4 gm/dL 6.0-8.3 Specimen sligh tly (BEAKER) (test code = hemoly zed 770) ALBUMIN (BEAKER) 4.0 g/dL 3.5-5.0 Specimen sl ightly (test code = 1145) hemolyzed ALKALINE PHOSPHATASE 110 U/L 40-150 (BEAKER) (test code = 346) BILIRUBIN TOTAL 0.9 mg/dL 0.2-1.2 Specimen sli ghtly (BEAKER) (test code = hemoly zed 377) SODIUM (BEAKER) (test 130 meq/L 136-145 L code = 381) POTASSIUM (BEAKER) 4.3 meq/L 3.5-5.1 Specimen slightly (test code = 379) hemolyzed CHLORIDE (BEAKER) 91 meq/L 98-107 L (test code = 382) CO2 (BEAKER) (test 26 meq/L 22-29 code = 355) BLOOD UREA NITROGEN 17 mg/dL 7-21 (BEAKER) (test code = 354) CREATININE (BEAKER) 0.97 mg/dL 0.57-1.25 Specimen slightly (test code = 358) hemolyzed GLUCOSE RANDOM 144 mg/dL 70-105 H (BEAKER) (test code = 652) CALCIUM (BEAKER) 9.2 mg/dL 8.4-10.2 (test code = 697) AST (SGOT) (BEAKER) 20 U/L 5-34 Specimen slightly (test code = 353) hemolyzed ALT (SGPT) (BEAKER) 13 U/L 6-55 Specimen slightly (test code = 347) hemolyzed EGFR (BEAKER) (test 82 mL/min/1.73 ESTIMA NEELA GFR IS code = 1092) sq m NOT ACCURATE CREATININE CLEARANCE IN PREDICTING GLOMERULAR FILTRATION RATE . ESTIMATED GFR I S NOT APPLICABLE FOR DIALYSIS PATIEN TS. Stitcher Hand ID - FAUZIA WHEPATIC FUNCTION [id number] 04:20:00 Test Item Value Reference Range Interpretation Comments TOTAL PROTEIN (BEAKER) 7.4 gm/dL 6.0-8.3 Speci men slightly (test code = 770) hemolyzed ALBUMIN (BEAKER) (test 4.0 g/dL 3.5-5.0 Speci men slightly code = 1145) hemolyzed BILIRUBIN TOTAL 0.9 mg/dL 0.2-1.2 Specimen sli ghtly (BEAKER) (test code = hemoly zed 377) BILIRUBIN DIRECT 0.4 mg/dL 0.1-0.5 Specimen sl ightly (BEAKER) (test code = hemoly zed 706) ALKALINE PHOSPHATASE 110 U/L 40-150 (BEAKER) (test code = 346) AST (SGOT) (BEAKER) 20 U/L 5-34 Specimen slightly (test code = 353) hemolyzed ALT (SGPT) (BEAKER) 13 U/L 6-55 Specimen slightly (test code = 347) hemolyzed Stitcher Hand ID - FAUZIA WCALCIUM, [id number] 04:15:00 Test Item Value Reference Range Interpretation Comments CALCIUM IONIZED (BEAKER) (test 1.06 mmol/L 1.12-1.27 L code = 698) PH, BLOOD (BEAKER) (test code = 7.52 1810) CBC W/PLT COUNT & AUTO [id number] 04:12:00 Test Item Value Reference Range Interpretation Comments WHITE BLOOD CELL COUNT (BEAKER) 11.8 K/ L 3.5-10.5 H (test code = 775) RED BLOOD CELL COUNT (BEAKER) 3.32 M/ L 4.63-6.08 L (test code = 761) HEMOGLOBIN (BEAKER) (test code = 9.0 GM/DL 13.7-17.5 L 410) HEMATOCRIT (BEAKER) (test code = 29.1 % 40.1-51.0 L 411) MEAN CORPUSCULAR VOLUME (BEAKER) 87.7 fL 79.0-92.2 (test code = 753) MEAN CORPUSCULAR HEMOGLOBIN 27.1 pg 25.7-32.2 (BEAKER) (test code = 751) MEAN CORPUSCULAR HEMOGLOBIN CONC 30.9 GM/DL 32.3-36.5 L (BEAKER) (test code = 752) RED CELL DISTRIBUTION WIDTH 17.7 % 11.6-14.4 H (BEAKER) (test code = 412) PLATELET COUNT (BEAKER) (test 313 K/CU MM 150-450 code = 756) MEAN PLATELET VOLUME (BEAKER) 9.4 fL 9.4-12.4 (test code = 754) NUCLEATED RED BLOOD CELLS 0 /100 WBC 0-0 (BEAKER) (test code = 413) NEUTROPHILS RELATIVE PERCENT 83 % (BEAKER) (test code = 429) LYMPHOCYTES RELATIVE PERCENT 10 % (BEAKER) (test code = 430) MONOCYTES RELATIVE PERCENT 5 % (BEAKER) (test code = 431) EOSINOPHILS RELATIVE PERCENT 1 % (BEAKER) (test code = 432) BASOPHILS RELATIVE PERCENT 0 % (BEAKER) (test code = 437) NEUTROPHILS ABSOLUTE COUNT 9.73 K/ L 1.78-5.38 H (BEAKER) (test code = 670) LYMPHOCYTES ABSOLUTE COUNT 1.17 K/ L 1.32-3.57 L (BEAKER) (test code = 414) MONOCYTES ABSOLUTE COUNT (BEAKER) 0.59 K/ L 0.30-0.82 (test code = 415) EOSINOPHILS ABSOLUTE COUNT 0.16 K/ L 0.04-0.54 (BEAKER) (test code = 416) BASOPHILS ABSOLUTE COUNT (BEAKER) 0.04 K/ L 0.01-0.08 (test code = 417) IMMATURE GRANULOCYTES-RELATIVE 1 % 0-1 PERCENT (BEAKER) (test code = 2801) [id number] 18:07:00 Test Item Value Reference Range Interpretation Comments MAGNESIUM (BEAKER) 1.7 mg/dL 1.6-2.6 Specimen slightly (test code = 627) hemolyzed Stitcher Hand ID - DBBASIC METABOLIC [id number] 18:07:00 Test Item Value Reference Range Interpretation Comments SODIUM (BEAKER) 131 meq/L 136-145 L (test code = 381) POTASSIUM (BEAKER) 3.6 meq/L 3.5-5.1 Specimen slightly (test code = 379) hemolyzed CHLORIDE (BEAKER) 91 meq/L 98-107 L (test code = 382) CO2 (BEAKER) (test 28 meq/L 22-29 code = 355) BLOOD UREA NITROGEN 14 mg/dL 7-21 (BEAKER) (test code = 354) CREATININE (BEAKER) 0.95 mg/dL 0.57-1.25 Specimen slightly (test code = 358) hemolyzed GLUCOSE RANDOM 160 mg/dL 70-105 H (BEAKER) (test code = 652) CALCIUM (BEAKER) 8.9 mg/dL 8.4-10.2 (test code = 697) EGFR (BEAKER) (test 84 mL/min/1.73 ESTIMA NEELA GFR IS code = 1092) sq m NOT ACCURATE CREATININE CLEARANCE IN PREDICTING GLOMERULAR FILTRATION RATE . ESTIMATED GFR I S NOT APPLICABLE FOR DIALYSIS PATIEN TS. Stitcher Hand ID - [id number] 03:57:00 Test Item Value Reference Range Interpretation Comments MAGNESIUM (BEAKER) 2.5 mg/dL 1.6-2.6 Specimen slightly (test code = 627) hemolyzed Stitcher Hand ID - FAUZIA [id number] 03:57:00 Test Item Value Reference Range Interpretation Comments PHOSPHORUS (BEAKER) 2.9 mg/dL 2.3-4.7 Specimen slightly (test code = 604) hemolyzed Stitcher Hand ID - FAUZIA WBASIC METABOLIC [id number] 03:57:00 Test Item Value Reference Range Interpretation Comments SODIUM (BEAKER) 132 meq/L 136-145 L (test code = 381) POTASSIUM (BEAKER) 3.8 meq/L 3.5-5.1 Specimen slightly (test code = 379) hemolyzed CHLORIDE (BEAKER) 92 meq/L 98-107 L (test code = 382) CO2 (BEAKER) (test 27 meq/L 22-29 code = 355) BLOOD UREA NITROGEN 15 mg/dL 7-21 (BEAKER) (test code = 354) CREATININE (BEAKER) 0.89 mg/dL 0.57-1.25 Specimen slightly (test code = 358) hemolyzed GLUCOSE RANDOM 118 mg/dL 70-105 H (BEAKER) (test code = 652) CALCIUM (BEAKER) 9.0 mg/dL 8.4-10.2 (test code = 697) EGFR (BEAKER) (test 90 mL/min/1.73 ESTIMA NEELA GFR IS code = 1092) sq m NOT ACCURATE CREATININE CLEARANCE IN PREDICTING GLOMERULAR FILTRATION RATE . ESTIMATED GFR I S NOT APPLICABLE FOR DIALYSIS PATIEN TS. Stitcher Hand ID Sal CAGE WHEPATIC FUNCTION [id number] 03:57:00 Test Item Value Reference Range Interpretation Comments TOTAL PROTEIN (BEAKER) 7.4 gm/dL 6.0-8.3 Speci men slightly (test code = 770) hemolyzed ALBUMIN (BEAKER) (test 4.1 g/dL 3.5-5.0 Speci men slightly code = 1145) hemolyzed BILIRUBIN TOTAL 0.9 mg/dL 0.2-1.2 Specimen sli ghtly (BEAKER) (test code = hemoly zed 377) BILIRUBIN DIRECT 0.4 mg/dL 0.1-0.5 Specimen sl ightly (BEAKER) (test code = hemoly zed 706) ALKALINE PHOSPHATASE 111 U/L 40-150 (BEAKER) (test code = 346) AST (SGOT) (BEAKER) 17 U/L 5-34 Specimen slightly (test code = 353) hemolyzed ALT (SGPT) (BEAKER) 12 U/L 6-55 Specimen slightly (test code = 347) hemolyzed Stitcher Hand ID - FAUZIA WCBC W/PLT COUNT & AUTO [id number] 03:54:00 Test Item Value Reference Range Interpretation Comments WHITE BLOOD CELL COUNT (BEAKER) 12.1 K/ L 3.5-10.5 H (test code = 775) RED BLOOD CELL COUNT (BEAKER) 3.42 M/ L 4.63-6.08 L (test code = 761) HEMOGLOBIN (BEAKER) (test code = 9.3 GM/DL 13.7-17.5 L 410) HEMATOCRIT (BEAKER) (test code = 29.5 % 40.1-51.0 L 411) MEAN CORPUSCULAR VOLUME (BEAKER) 86.3 fL 79.0-92.2 (test code = 753) MEAN CORPUSCULAR HEMOGLOBIN 27.2 pg 25.7-32.2 (BEAKER) (test code = 751) MEAN CORPUSCULAR HEMOGLOBIN CONC 31.5 GM/DL 32.3-36.5 L (BEAKER) (test code = 752) RED CELL DISTRIBUTION WIDTH 16.7 % 11.6-14.4 H (BEAKER) (test code = 412) PLATELET COUNT (BEAKER) (test 315 K/CU MM 150-450 code = 756) MEAN PLATELET VOLUME (BEAKER) 9.5 fL 9.4-12.4 (test code = 754) NUCLEATED RED BLOOD CELLS 0 /100 WBC 0-0 (BEAKER) (test code = 413) NEUTROPHILS RELATIVE PERCENT 83 % (BEAKER) (test code = 429) LYMPHOCYTES RELATIVE PERCENT 9 % (BEAKER) (test code = 430) MONOCYTES RELATIVE PERCENT 5 % (BEAKER) (test code = 431) EOSINOPHILS RELATIVE PERCENT 2 % (BEAKER) (test code = 432) BASOPHILS RELATIVE PERCENT 0 % (BEAKER) (test code = 437) NEUTROPHILS ABSOLUTE COUNT 10.03 K/ L 1.78-5.38 H (BEAKER) (test code = 670) LYMPHOCYTES ABSOLUTE COUNT 1.11 K/ L 1.32-3.57 L (BEAKER) (test code = 414) MONOCYTES ABSOLUTE COUNT (BEAKER) 0.63 K/ L 0.30-0.82 (test code = 415) EOSINOPHILS ABSOLUTE COUNT 0.22 K/ L 0.04-0.54 (BEAKER) (test code = 416) BASOPHILS ABSOLUTE COUNT (BEAKER) 0.02 K/ L 0.01-0.08 (test code = 417) IMMATURE GRANULOCYTES-RELATIVE 0 % 0-1 PERCENT (BEAKER) (test code = 2801) [id number] 22:09:00 Test Item Value Reference Range Interpretation Comments MAGNESIUM (BEAKER) 1.8 mg/dL 1.6-2.6 Specimen slightly (test code = 627) hemolyzed Stitcher Hand ID - [id number] 22:09:00 Test Item Value Reference Range Interpretation Comments POTASSIUM (BEAKER) 3.8 meq/L 3.5-5.1 Specimen slightly (test code = 379) hemolyzed Stitcher Hand ID - [id number] 18:43:00 Test Item Value Reference Range Interpretation Comments MAGNESIUM (BEAKER) 1.6 mg/dL 1.6-2.6 Specimen slightly (test code = 627) hemolyzed Stitcher Hand ID - AAHAMIDBASIC METABOLIC [id number] 18:43:00 Test Item Value Reference Range Interpretation Comments SODIUM (BEAKER) 133 meq/L 136-145 L (test code = 381) POTASSIUM (BEAKER) 3.5 meq/L 3.5-5.1 Specimen slightly (test code = 379) hemolyzed CHLORIDE (BEAKER) 93 meq/L 98-107 L (test code = 382) CO2 (BEAKER) (test 28 meq/L 22-29 code = 355) BLOOD UREA NITROGEN 15 mg/dL 7-21 (BEAKER) (test code = 354) CREATININE (BEAKER) 0.92 mg/dL 0.57-1.25 Specimen slightly (test code = 358) hemolyzed GLUCOSE RANDOM 100 mg/dL 70-105 (BEAKER) (test code = 652) CALCIUM (BEAKER) 9.0 mg/dL 8.4-10.2 (test code = 697) EGFR (BEAKER) (test 87 mL/min/1.73 ESTIMA NEELA GFR IS code = 1092) sq m NOT ACCURATE CREATININE CLEARANCE IN PREDICTING GLOMERULAR FILTRATION RATE . ESTIMATED GFR I S NOT APPLICABLE FOR DIALYSIS PATIEN TS. Stitcher Hand ID - AAHAMIDCBC W/PLT COUNT & AUTO [id number] 05:32:00 Test Item Value Reference Range Interpretation Comments WHITE BLOOD CELL COUNT 9.5 K/ L 3.5-10.5 (BEAKER) (test code = 775) RED BLOOD CELL COUNT 3.36 M/ L 4.63-6.08 L (BEAKER) (test code = 761) HEMOGLOBIN (BEAKER) 9.1 GM/DL 13.7-17.5 L (test code = 410) HEMATOCRIT (BEAKER) 29.3 % 40.1-51.0 L (test code = 411) MEAN CORPUSCULAR 87.2 fL 79.0-92.2 Discordant MCV VOLUME (BEAKER) (test result s compared to code = 753) previous result s; clinical correl ation required. MEAN CORPUSCULAR 27.1 pg 25.7-32.2 HEMOGLOBIN (BEAKER) (test code = 751) MEAN CORPUSCULAR 31.1 GM/DL 32.3-36.5 L HEMOGLOBIN CONC (BEAKER) (test code = 752) RED CELL DISTRIBUTION 16.4 % 11.6-14.4 H WIDTH (BEAKER) (test code = 412) PLATELET COUNT 287 K/CU MM 150-450 (BEAKER) (test code = 756) MEAN PLATELET VOLUME 9.9 fL 9.4-12.4 (BEAKER) (test code = 754) NUCLEATED RED BLOOD 0 /100 WBC 0-0 CELLS (BEAKER) (test code = 413) NEUTROPHILS RELATIVE 78 % PERCENT (BEAKER) (test code = 429) LYMPHOCYTES RELATIVE 14 % PERCENT (BEAKER) (test code = 430) MONOCYTES RELATIVE 5 % PERCENT (BEAKER) (test code = 431) EOSINOPHILS RELATIVE 2 % PERCENT (BEAKER) (test code = 432) BASOPHILS RELATIVE 0 % PERCENT (BEAKER) (test code = 437) NEUTROPHILS ABSOLUTE 7.41 K/ L 1.78-5.38 H COUNT (BEAKER) (test code = 670) LYMPHOCYTES ABSOLUTE 1.31 K/ L 1.32-3.57 L COUNT (BEAKER) (test code = 414) MONOCYTES ABSOLUTE 0.49 K/ L 0.30-0.82 COUNT (BEAKER) (test code = 415) EOSINOPHILS ABSOLUTE 0.19 K/ L 0.04-0.54 COUNT (BEAKER) (test code = 416) BASOPHILS ABSOLUTE 0.02 K/ L 0.01-0.08 COUNT (BEAKER) (test code = 417) IMMATURE 0 % 0-1 GRANULOCYTES-RELATIVE PERCENT (BEAKER) (test code = 2801) [id number] 05:12:00 Test Item Value Reference Range Interpretation Comments MAGNESIUM (BEAKER) 1.6 mg/dL 1.6-2.6 Specimen slightly (test code = 627) hemolyzed Stitcher Hand ID - [id number] 05:12:00 Test Item Value Reference Range Interpretation Comments PHOSPHORUS (BEAKER) 2.6 mg/dL 2.3-4.7 Specimen slightly (test code = 604) hemolyzed Stitcher Hand ID - DBCOMPREHENSIVE METABOLIC [id number] 05:12:00 Test Item Value Reference Range Interpretation Comments TOTAL PROTEIN 7.4 gm/dL 6.0-8.3 Specimen sligh tly (BEAKER) (test code = hemoly zed 770) ALBUMIN (BEAKER) 4.0 g/dL 3.5-5.0 Specimen sl ightly (test code = 1145) hemolyzed ALKALINE PHOSPHATASE 106 U/L 40-150 (BEAKER) (test code = 346) BILIRUBIN TOTAL 0.7 mg/dL 0.2-1.2 Specimen sli ghtly (BEAKER) (test code = hemoly zed 377) SODIUM (BEAKER) (test 133 meq/L 136-145 L code = 381) POTASSIUM (BEAKER) 4.0 meq/L 3.5-5.1 Specimen slightly (test code = 379) hemolyzed CHLORIDE (BEAKER) 93 meq/L 98-107 L (test code = 382) CO2 (BEAKER) (test 28 meq/L 22-29 code = 355) BLOOD UREA NITROGEN 17 mg/dL 7-21 (BEAKER) (test code = 354) CREATININE (BEAKER) 1.13 mg/dL 0.57-1.25 Specimen slightly (test code = 358) hemolyzed GLUCOSE RANDOM 145 mg/dL 70-105 H (BEAKER) (test code = 652) CALCIUM (BEAKER) 9.1 mg/dL 8.4-10.2 (test code = 697) AST (SGOT) (BEAKER) 16 U/L 5-34 Specimen slightly (test code = 353) hemolyzed ALT (SGPT) (BEAKER) 12 U/L 6-55 Specimen slightly (test code = 347) hemolyzed EGFR (BEAKER) (test 69 mL/min/1.73 ESTIMA NEELA GFR IS code = 1092) sq m NOT ACCURATE CREATININE CLEARANCE IN PREDICTING GLOMERULAR FILTRATION RATE . ESTIMATED GFR I S NOT APPLICABLE FOR DIALYSIS PATIEN TS. Stitcher Hand ID - DBHEPATIC FUNCTION [id number] 05:12:00 Test Item Value Reference Range Interpretation Comments TOTAL PROTEIN (BEAKER) 7.4 gm/dL 6.0-8.3 Speci men slightly (test code = 770) hemolyzed ALBUMIN (BEAKER) (test 4.0 g/dL 3.5-5.0 Speci men slightly code = 1145) hemolyzed BILIRUBIN TOTAL 0.7 mg/dL 0.2-1.2 Specimen sli ghtly (BEAKER) (test code = hemoly zed 377) BILIRUBIN DIRECT 0.3 mg/dL 0.1-0.5 Specimen sl ightly (BEAKER) (test code = hemoly zed 706) ALKALINE PHOSPHATASE 106 U/L 40-150 (BEAKER) (test code = 346) AST (SGOT) (BEAKER) 16 U/L 5-34 Specimen slightly (test code = 353) hemolyzed ALT (SGPT) (BEAKER) 12 U/L 6-55 Specimen slightly (test code = 347) hemolyzed Stitcher Hand ID - DBCALCIUM, [id number] 04:09:00 Test Item Value Reference Range Interpretation Comments CALCIUM IONIZED (BEAKER) (test 1.13 mmol/L 1.12-1.27 code = 698) PH, BLOOD (BEAKER) (test code = 7.46 1810) [id number] 17:35:00 Test Item Value Reference Range Interpretation Comments MAGNESIUM (BEAKER) 1.6 mg/dL 1.6-2.6 Specimen slightly (test code = 627) hemolyzed Stitcher Hand ID - DBBASIC METABOLIC [id number] 17:35:00 Test Item Value Reference Range Interpretation Comments SODIUM (BEAKER) 129 meq/L 136-145 L (test code = 381) POTASSIUM (BEAKER) 3.8 meq/L 3.5-5.1 Specimen slightly (test code = 379) hemolyzed CHLORIDE (BEAKER) 88 meq/L 98-107 L (test code = 382) CO2 (BEAKER) (test 28 meq/L 22-29 code = 355) BLOOD UREA NITROGEN 17 mg/dL 7-21 (BEAKER) (test code = 354) CREATININE (BEAKER) 1.12 mg/dL 0.57-1.25 Specimen slightly (test code = 358) hemolyzed GLUCOSE RANDOM 152 mg/dL 70-105 H (BEAKER) (test code = 652) CALCIUM (BEAKER) 9.6 mg/dL 8.4-10.2 (test code = 697) EGFR (BEAKER) (test 69 mL/min/1.73 ESTIMA NEELA GFR IS code = 1092) sq m NOT ACCURATE CREATININE CLEARANCE IN PREDICTING GLOMERULAR FILTRATION RATE . ESTIMATED GFR I S NOT APPLICABLE FOR DIALYSIS PATIEN TS. Stitcher Hand ID - [id number] 03:26:00 Test Item Value Reference Range Interpretation Comments MAGNESIUM (BEAKER) 1.7 mg/dL 1.6-2.6 Specimen slightly (test code = 627) hemolyzed Stitcher Hand ID - FAUZIA [id number] 03:26:00 Test Item Value Reference Range Interpretation Comments PHOSPHORUS (BEAKER) 2.6 mg/dL 2.3-4.7 Specimen slightly (test code = 604) hemolyzed Stitcher Hand ID - FAUZIA WCOMPREHENSIVE METABOLIC [id number] 03:26:00 Test Item Value Reference Range Interpretation Comments TOTAL PROTEIN 7.4 gm/dL 6.0-8.3 Specimen sligh tly (BEAKER) (test code = hemoly zed 770) ALBUMIN (BEAKER) 4.1 g/dL 3.5-5.0 Specimen sl ightly (test code = 1145) hemolyzed ALKALINE PHOSPHATASE 104 U/L 40-150 (BEAKER) (test code = 346) BILIRUBIN TOTAL 0.8 mg/dL 0.2-1.2 Specimen sli ghtly (BEAKER) (test code = hemoly zed 377) SODIUM (BEAKER) (test 130 meq/L 136-145 L code = 381) POTASSIUM (BEAKER) 4.0 meq/L 3.5-5.1 Specimen slightly (test code = 379) hemolyzed CHLORIDE (BEAKER) 89 meq/L 98-107 L (test code = 382) CO2 (BEAKER) (test 28 meq/L 22-29 code = 355) BLOOD UREA NITROGEN 17 mg/dL 7-21 (BEAKER) (test code = 354) CREATININE (BEAKER) 1.12 mg/dL 0.57-1.25 Specimen slightly (test code = 358) hemolyzed GLUCOSE RANDOM 132 mg/dL 70-105 H (BEAKER) (test code = 652) CALCIUM (BEAKER) 9.4 mg/dL 8.4-10.2 (test code = 697) AST (SGOT) (BEAKER) 18 U/L 5-34 Specimen slightly (test code = 353) hemolyzed ALT (SGPT) (BEAKER) 14 U/L 6-55 Specimen slightly (test code = 347) hemolyzed EGFR (BEAKER) (test 69 mL/min/1.73 ESTIMA NEELA GFR IS code = 1092) sq m NOT ACCURATE CREATININE CLEARANCE IN PREDICTING GLOMERULAR FILTRATION RATE . ESTIMATED GFR I S NOT APPLICABLE FOR DIALYSIS PATIEN TS. Stitcher Hand ID - FAUZIA WHEPATIC FUNCTION [id number] 03:26:00 Test Item Value Reference Range Interpretation Comments TOTAL PROTEIN (BEAKER) 7.4 gm/dL 6.0-8.3 Speci men slightly (test code = 770) hemolyzed ALBUMIN (BEAKER) (test 4.1 g/dL 3.5-5.0 Speci men slightly code = 1145) hemolyzed BILIRUBIN TOTAL 0.8 mg/dL 0.2-1.2 Specimen sli ghtly (BEAKER) (test code = hemoly zed 377) BILIRUBIN DIRECT 0.3 mg/dL 0.1-0.5 Specimen sl ightly (BEAKER) (test code = hemoly zed 706) ALKALINE PHOSPHATASE 104 U/L 40-150 (BEAKER) (test code = 346) AST (SGOT) (BEAKER) 18 U/L 5-34 Specimen slightly (test code = 353) hemolyzed ALT (SGPT) (BEAKER) 14 U/L 6-55 Specimen slightly (test code = 347) hemolyzed Stitcher Hand ID - FAUZIA WCBC W/PLT COUNT & AUTO [id number] 03:11:00 Test Item Value Reference Range Interpretation Comments WHITE BLOOD CELL COUNT (BEAKER) 7.8 K/ L 3.5-10.5 (test code = 775) RED BLOOD CELL COUNT (BEAKER) 3.37 M/ L 4.63-6.08 L (test code = 761) HEMOGLOBIN (BEAKER) (test code = 9.0 GM/DL 13.7-17.5 L 410) HEMATOCRIT (BEAKER) (test code = 27.9 % 40.1-51.0 L 411) MEAN CORPUSCULAR VOLUME (BEAKER) 82.8 fL 79.0-92.2 (test code = 753) MEAN CORPUSCULAR HEMOGLOBIN 26.7 pg 25.7-32.2 (BEAKER) (test code = 751) MEAN CORPUSCULAR HEMOGLOBIN CONC 32.3 GM/DL 32.3-36.5 (BEAKER) (test code = 752) RED CELL DISTRIBUTION WIDTH 16.0 % 11.6-14.4 H (BEAKER) (test code = 412) PLATELET COUNT (BEAKER) (test 301 K/CU MM 150-450 code = 756) MEAN PLATELET VOLUME (BEAKER) 9.1 fL 9.4-12.4 L (test code = 754) NUCLEATED RED BLOOD CELLS 0 /100 WBC 0-0 (BEAKER) (test code = 413) NEUTROPHILS RELATIVE PERCENT 76 % (BEAKER) (test code = 429) LYMPHOCYTES RELATIVE PERCENT 14 % (BEAKER) (test code = 430) MONOCYTES RELATIVE PERCENT 6 % (BEAKER) (test code = 431) EOSINOPHILS RELATIVE PERCENT 3 % (BEAKER) (test code = 432) BASOPHILS RELATIVE PERCENT 0 % (BEAKER) (test code = 437) NEUTROPHILS ABSOLUTE COUNT 5.94 K/ L 1.78-5.38 H (BEAKER) (test code = 670) LYMPHOCYTES ABSOLUTE COUNT 1.12 K/ L 1.32-3.57 L (BEAKER) (test code = 414) MONOCYTES ABSOLUTE COUNT (BEAKER) 0.48 K/ L 0.30-0.82 (test code = 415) EOSINOPHILS ABSOLUTE COUNT 0.22 K/ L 0.04-0.54 (BEAKER) (test code = 416) BASOPHILS ABSOLUTE COUNT (BEAKER) 0.01 K/ L 0.01-0.08 (test code = 417) IMMATURE GRANULOCYTES-RELATIVE 0 % 0-1 PERCENT (BEAKER) (test code = 2801) CALCIUM, [id number] 02:57:00 Test Item Value Reference Range Interpretation Comments CALCIUM IONIZED (BEAKER) (test 1.09 mmol/L 1.12-1.27 L code = 698) PH, BLOOD (BEAKER) (test code = 7.51 1810) BASIC METABOLIC [id number] 18:11:00 Test Item Value Reference Range Interpretation Comments SODIUM (BEAKER) 132 meq/L 136-145 L (test code = 381) POTASSIUM (BEAKER) 4.1 meq/L 3.5-5.1 (test code = 379) CHLORIDE (BEAKER) 90 meq/L 98-107 L (test code = 382) CO2 (BEAKER) (test 30 meq/L 22-29 H code = 355) BLOOD UREA NITROGEN 19 mg/dL 7-21 (BEAKER) (test code = 354) CREATININE (BEAKER) 1.11 mg/dL 0.57-1.25 (test code = 358) GLUCOSE RANDOM 147 mg/dL 70-105 H (BEAKER) (test code = 652) CALCIUM (BEAKER) 9.5 mg/dL 8.4-10.2 (test code = 697) EGFR (BEAKER) (test 70 mL/min/1.73 ESTIMA NEELA GFR IS code = 1092) sq m NOT ACCURATE CREATININE CLEARANCE IN PREDICTING GLOMERULAR FILTRATION RATE . ESTIMATED GFR I S NOT APPLICABLE FOR DIALYSIS PATIEN TS. Stitcher Hand ID - DBBASIC METABOLIC [id number] 10:57:00 Test Item Value Reference Range Interpretation Comments SODIUM (BEAKER) 131 meq/L 136-145 L (test code = 381) POTASSIUM (BEAKER) 3.9 meq/L 3.5-5.1 (test code = 379) CHLORIDE (BEAKER) 87 meq/L 98-107 L (test code = 382) CO2 (BEAKER) (test 31 meq/L 22-29 H code = 355) BLOOD UREA NITROGEN 20 mg/dL 7-21 (BEAKER) (test code = 354) CREATININE (BEAKER) 1.08 mg/dL 0.57-1.25 (test code = 358) GLUCOSE RANDOM 144 mg/dL 70-105 H (BEAKER) (test code = 652) CALCIUM (BEAKER) 9.3 mg/dL 8.4-10.2 (test code = 697) EGFR (BEAKER) (test 72 mL/min/1.73 ESTIMA NEELA GFR IS code = 1092) sq m NOT ACCURATE CREATININE CLEARANCE IN PREDICTING GLOMERULAR FILTRATION RATE . ESTIMATED GFR I S NOT APPLICABLE FOR DIALYSIS PATIEN TS. Stitcher Hand ID - [id number] 10:57:00 Test Item Value Reference Range Interpretation Comments MAGNESIUM (BEAKER) (test code = 1.7 mg/dL 1.6-2.6 627) Stitcher Hand ID - [id number] 03:46:00 Test Item Value Reference Range Interpretation Comments MAGNESIUM (BEAKER) 1.8 mg/dL 1.6-2.6 Specimen slightly (test code = 627) hemolyzed Stitcher Hand ID - [id number] 03:46:00 Test Item Value Reference Range Interpretation Comments PHOSPHORUS (BEAKER) 2.6 mg/dL 2.3-4.7 Specimen slightly (test code = 604) hemolyzed Stitcher Hand ID - YAMILKAAMCOMPREHENSIVE METABOLIC [id number] 03:46:00 Test Item Value Reference Range Interpretation Comments TOTAL PROTEIN 7.5 gm/dL 6.0-8.3 Specimen sligh tly (BEAKER) (test code = hemoly zed 770) ALBUMIN (BEAKER) 4.2 g/dL 3.5-5.0 Specimen sl ightly (test code = 1145) hemolyzed ALKALINE PHOSPHATASE 103 U/L 40-150 (BEAKER) (test code = 346) BILIRUBIN TOTAL 0.8 mg/dL 0.2-1.2 Specimen sli ghtly (BEAKER) (test code = hemoly zed 377) SODIUM (BEAKER) (test 133 meq/L 136-145 L code = 381) POTASSIUM (BEAKER) 3.9 meq/L 3.5-5.1 Specimen slightly (test code = 379) hemolyzed CHLORIDE (BEAKER) 88 meq/L 98-107 L (test code = 382) CO2 (BEAKER) (test 31 meq/L 22-29 H code = 355) BLOOD UREA NITROGEN 22 mg/dL 7-21 H (BEAKER) (test code = 354) CREATININE (BEAKER) 1.07 mg/dL 0.57-1.25 Specimen slightly (test code = 358) hemolyzed GLUCOSE RANDOM 125 mg/dL 70-105 H (BEAKER) (test code = 652) CALCIUM (BEAKER) 9.2 mg/dL 8.4-10.2 (test code = 697) AST (SGOT) (BEAKER) 19 U/L 5-34 Specimen slightly (test code = 353) hemolyzed ALT (SGPT) (BEAKER) 13 U/L 6-55 Specimen slightly (test code = 347) hemolyzed EGFR (BEAKER) (test 73 mL/min/1.73 ESTIMA NEELA GFR IS code = 1092) sq m NOT ACCURATE CREATININE CLEARANCE IN PREDICTING GLOMERULAR FILTRATION RATE . ESTIMATED GFR I S NOT APPLICABLE FOR DIALYSIS PATIEN TS. Stitcher Hand ID - ANA PAULAHEPATIC FUNCTION [id number] 03:46:00 Test Item Value Reference Range Interpretation Comments TOTAL PROTEIN (BEAKER) 7.5 gm/dL 6.0-8.3 Speci men slightly (test code = 770) hemolyzed ALBUMIN (BEAKER) (test 4.2 g/dL 3.5-5.0 Speci men slightly code = 1145) hemolyzed BILIRUBIN TOTAL 0.8 mg/dL 0.2-1.2 Specimen sli ghtly (BEAKER) (test code = hemoly zed 377) BILIRUBIN DIRECT 0.3 mg/dL 0.1-0.5 Specimen sl ightly (BEAKER) (test code = hemoly zed 706) ALKALINE PHOSPHATASE 103 U/L 40-150 (BEAKER) (test code = 346) AST (SGOT) (BEAKER) 19 U/L 5-34 Specimen slightly (test code = 353) hemolyzed ALT (SGPT) (BEAKER) 13 U/L 6-55 Specimen slightly (test code = 347) hemolyzed Stitcher Hand ID - SABAMCALCIUM, [id number] 03:04:00 Test Item Value Reference Range Interpretation Comments CALCIUM IONIZED (BEAKER) (test 1.09 mmol/L 1.12-1.27 L code = 698) PH, BLOOD (BEAKER) (test code = 7.48 1810) CBC W/PLT COUNT & AUTO [id number] 02:54:00 Test Item Value Reference Range Interpretation Comments WHITE BLOOD CELL COUNT (BEAKER) 7.1 K/ L 3.5-10.5 (test code = 775) RED BLOOD CELL COUNT (BEAKER) 3.51 M/ L 4.63-6.08 L (test code = 761) HEMOGLOBIN (BEAKER) (test code = 9.3 GM/DL 13.7-17.5 L 410) HEMATOCRIT (BEAKER) (test code = 29.6 % 40.1-51.0 L 411) MEAN CORPUSCULAR VOLUME (BEAKER) 84.3 fL 79.0-92.2 (test code = 753) MEAN CORPUSCULAR HEMOGLOBIN 26.5 pg 25.7-32.2 (BEAKER) (test code = 751) MEAN CORPUSCULAR HEMOGLOBIN CONC 31.4 GM/DL 32.3-36.5 L (BEAKER) (test code = 752) RED CELL DISTRIBUTION WIDTH 15.5 % 11.6-14.4 H (BEAKER) (test code = 412) PLATELET COUNT (BEAKER) (test 288 K/CU MM 150-450 code = 756) MEAN PLATELET VOLUME (BEAKER) 9.2 fL 9.4-12.4 L (test code = 754) NUCLEATED RED BLOOD CELLS 0 /100 WBC 0-0 (BEAKER) (test code = 413) NEUTROPHILS RELATIVE PERCENT 78 % (BEAKER) (test code = 429) LYMPHOCYTES RELATIVE PERCENT 12 % (BEAKER) (test code = 430) MONOCYTES RELATIVE PERCENT 8 % (BEAKER) (test code = 431) EOSINOPHILS RELATIVE PERCENT 3 % (BEAKER) (test code = 432) BASOPHILS RELATIVE PERCENT 0 % (BEAKER) (test code = 437) NEUTROPHILS ABSOLUTE COUNT 5.52 K/ L 1.78-5.38 H (BEAKER) (test code = 670) LYMPHOCYTES ABSOLUTE COUNT 0.82 K/ L 1.32-3.57 L (BEAKER) (test code = 414) MONOCYTES ABSOLUTE COUNT (BEAKER) 0.53 K/ L 0.30-0.82 (test code = 415) EOSINOPHILS ABSOLUTE COUNT 0.19 K/ L 0.04-0.54 (BEAKER) (test code = 416) BASOPHILS ABSOLUTE COUNT (BEAKER) 0.01 K/ L 0.01-0.08 (test code = 417) IMMATURE GRANULOCYTES-RELATIVE 0 % 0-1 PERCENT (BEAKER) (test code = 2801) SARS-COV2/RT-PCR ([facility])2021-06-04 22:39:00 Test Item Value Reference Range Interpretation Comments SARS-COV2/RT-PCR (test code = Negative Negative [id number]) Negative result for this test determines that SARS-CoV-2 RNA was not present in the specimen above the Limit of Detection (LOD). However, Negative results do not preclude SARS-CoV-2 infection and should not be used as the sole basis for treatment or patient management decisions. Negative results must be combined with clinical observations, patient history, and epidemiological information. A false negative result may occur if a specimen is improperly collected, transported, or handled. A false negative result should be considered if patient's recent exposures or clinical presentation indicate that COVID-19 (SARS-CoV-2) is likely and diagnostic tests for other causes of illness are negative. Re-testing should be considered in cases of suspected false negatives.The limit of detection for this assay is 100 copies/mL.This SARS-CoV-2 test is a real-time RT_PCR test intended for the qualitative detection of nucleic acid from SARS-CoV-2 in a nasopharyngeal swab specimen collected from individuals suspected of COVID-19 by their healthcare provider.This test has not been Food and Drug Administration (FDA) cleared or approved. This is a modified version of an approved Emergency Use Authorization (EUA) and is in the process of review by the FDA. Once authorized by the FDA, the issued EUA will be effective until the declaration that circumstances exist justifying the authorization of the emergency use of in vitro diagnostic tests for detection and/or diagnosis of COVID-19 is terminated under Section 564(b)(2) of the Act or the EUA is revoked under Section 564(g) of the Act.Testing was performed using [employer] SARS-CoV-2 assay.Fact Sheet for Healthcare Providers:https://www.[employer]/eduardo/RT SARS-CoV-2 HCP Fact Sheet 51- 263019.pdfFact Sheet for Healthcare Patients:https://www.[employer]/eduardo/RT SARS-CoV-2 Patient Fact Sheet EN [id number].[id number] 21:17:00 Test Item Value Reference Range Interpretation Comments MAGNESIUM (BEAKER) (test code = 1.5 mg/dL 1.6-2.6 L 627) Stitcher Hand ID - [id number] 21:17:00 Test Item Value Reference Range Interpretation Comments POTASSIUM (BEAKER) (test code = 3.8 meq/L 3.5-5.1 379) Stitcher Hand ID - BSBASIC METABOLIC [id number] 18:26:00 Test Item Value Reference Range Interpretation Comments SODIUM (BEAKER) 130 meq/L 136-145 L (test code = 381) POTASSIUM (BEAKER) 3.3 meq/L 3.5-5.1 L (test code = 379) CHLORIDE (BEAKER) 84 meq/L 98-107 L (test code = 382) CO2 (BEAKER) (test 33 meq/L 22-29 H code = 355) BLOOD UREA NITROGEN 23 mg/dL 7-21 H (BEAKER) (test code = 354) CREATININE (BEAKER) 1.02 mg/dL 0.57-1.25 (test code = 358) GLUCOSE RANDOM 132 mg/dL 70-105 H (BEAKER) (test code = 652) CALCIUM (BEAKER) 9.1 mg/dL 8.4-10.2 (test code = 697) EGFR (BEAKER) (test 77 mL/min/1.73 ESTIMA NEELA GFR IS code = 1092) sq m NOT ACCURATE CREATININE CLEARANCE IN PREDICTING GLOMERULAR FILTRATION RATE . ESTIMATED GFR I S NOT APPLICABLE FOR DIALYSIS PATIEN TS. Stitcher Hand ID - [id number] 18:26:00 Test Item Value Reference Range Interpretation Comments MAGNESIUM (BEAKER) (test code = 1.7 mg/dL 1.6-2.6 627) Stitcher Hand ID - [id number] 15:36:00 Test Item Value Reference Range Interpretation Comments POTASSIUM (BEAKER) (test code = 3.3 meq/L 3.5-5.1 L 379) Stitcher Hand ID - BSBASIC METABOLIC [id number] 10:20:00 Test Item Value Reference Range Interpretation Comments SODIUM (BEAKER) 129 meq/L 136-145 L (test code = 381) POTASSIUM (BEAKER) 3.1 meq/L 3.5-5.1 L (test code = 379) CHLORIDE (BEAKER) 87 meq/L 98-107 L (test code = 382) CO2 (BEAKER) (test 32 meq/L 22-29 H code = 355) BLOOD UREA NITROGEN 28 mg/dL 7-21 H (BEAKER) (test code = 354) CREATININE (BEAKER) 1.16 mg/dL 0.57-1.25 (test code = 358) GLUCOSE RANDOM 151 mg/dL 70-105 H (BEAKER) (test code = 652) CALCIUM (BEAKER) 9.0 mg/dL 8.4-10.2 (test code = 697) EGFR (BEAKER) (test 67 mL/min/1.73 ESTIMA NEELA GFR IS code = 1092) sq m NOT ACCURATE CREATININE CLEARANCE IN PREDICTING GLOMERULAR FILTRATION RATE . ESTIMATED GFR I S NOT APPLICABLE FOR DIALYSIS PATIEN TS. Stitcher Hand ID - EMERSONCALCIUM, [id number] 05:28:00 Test Item Value Reference Range Interpretation Comments CALCIUM IONIZED (BEAKER) (test 1.08 mmol/L 1.12-1.27 L code = 698) PH, BLOOD (BEAKER) (test code = 7.43 1810) CBC W/PLT COUNT & AUTO [id number] 04:46:00 Test Item Value Reference Range Interpretation Comments WHITE BLOOD CELL COUNT (BEAKER) 12.1 K/ L 3.5-10.5 H (test code = 775) RED BLOOD CELL COUNT (BEAKER) 3.58 M/ L 4.63-6.08 L (test code = 761) HEMOGLOBIN (BEAKER) (test code = 9.6 GM/DL 13.7-17.5 L 410) HEMATOCRIT (BEAKER) (test code = 29.8 % 40.1-51.0 L 411) MEAN CORPUSCULAR VOLUME (BEAKER) 83.2 fL 79.0-92.2 (test code = 753) MEAN CORPUSCULAR HEMOGLOBIN 26.8 pg 25.7-32.2 (BEAKER) (test code = 751) MEAN CORPUSCULAR HEMOGLOBIN CONC 32.2 GM/DL 32.3-36.5 L (BEAKER) (test code = 752) RED CELL DISTRIBUTION WIDTH 15.6 % 11.6-14.4 H (BEAKER) (test code = 412) PLATELET COUNT (BEAKER) (test 313 K/CU MM 150-450 code = 756) MEAN PLATELET VOLUME (BEAKER) 9.5 fL 9.4-12.4 (test code = 754) NUCLEATED RED BLOOD CELLS 0 /100 WBC 0-0 (BEAKER) (test code = 413) NEUTROPHILS RELATIVE PERCENT 90 % (BEAKER) (test code = 429) LYMPHOCYTES RELATIVE PERCENT 5 % (BEAKER) (test code = 430) MONOCYTES RELATIVE PERCENT 4 % (BEAKER) (test code = 431) EOSINOPHILS RELATIVE PERCENT 1 % (BEAKER) (test code = 432) BASOPHILS RELATIVE PERCENT 0 % (BEAKER) (test code = 437) NEUTROPHILS ABSOLUTE COUNT 10.87 K/ L 1.78-5.38 H (BEAKER) (test code = 670) LYMPHOCYTES ABSOLUTE COUNT 0.65 K/ L 1.32-3.57 L (BEAKER) (test code = 414) MONOCYTES ABSOLUTE COUNT (BEAKER) 0.46 K/ L 0.30-0.82 (test code = 415) EOSINOPHILS ABSOLUTE COUNT 0.11 K/ L 0.04-0.54 (BEAKER) (test code = 416) BASOPHILS ABSOLUTE COUNT (BEAKER) 0.01 K/ L 0.01-0.08 (test code = 417) IMMATURE GRANULOCYTES-RELATIVE 0 % 0-1 PERCENT (BEAKER) (test code = 2801) [id number] 04:35:00 Test Item Value Reference Range Interpretation Comments MAGNESIUM (BEAKER) 1.7 mg/dL 1.6-2.6 Specimen slightly (test code = 627) hemolyzed Stitcher Hand ID - PIAYA [id number] 04:35:00 Test Item Value Reference Range Interpretation Comments PHOSPHORUS (BEAKER) 3.1 mg/dL 2.3-4.7 Specimen slightly (test code = 604) hemolyzed Stitcher Hand ID - PIAYA LCOMPREHENSIVE METABOLIC [id number] 04:35:00 Test Item Value Reference Range Interpretation Comments TOTAL PROTEIN 7.7 gm/dL 6.0-8.3 Specimen sligh tly (BEAKER) (test code = hemoly zed 770) ALBUMIN (BEAKER) 4.2 g/dL 3.5-5.0 Specimen sl ightly (test code = 1145) hemolyzed ALKALINE PHOSPHATASE 107 U/L 40-150 (BEAKER) (test code = 346) BILIRUBIN TOTAL 0.8 mg/dL 0.2-1.2 Specimen sli ghtly (BEAKER) (test code = hemoly zed 377) SODIUM (BEAKER) (test 129 meq/L 136-145 L code = 381) POTASSIUM (BEAKER) 3.5 meq/L 3.5-5.1 Specimen slightly (test code = 379) hemolyzed CHLORIDE (BEAKER) 86 meq/L 98-107 L (test code = 382) CO2 (BEAKER) (test 29 meq/L 22-29 code = 355) BLOOD UREA NITROGEN 30 mg/dL 7-21 H (BEAKER) (test code = 354) CREATININE (BEAKER) 1.21 mg/dL 0.57-1.25 Specimen slightly (test code = 358) hemolyzed GLUCOSE RANDOM 148 mg/dL 70-105 H (BEAKER) (test code = 652) CALCIUM (BEAKER) 9.0 mg/dL 8.4-10.2 (test code = 697) AST (SGOT) (BEAKER) 16 U/L 5-34 Specimen slightly (test code = 353) hemolyzed ALT (SGPT) (BEAKER) 11 U/L 6-55 Specimen slightly (test code = 347) hemolyzed EGFR (BEAKER) (test 63 mL/min/1.73 ESTIMA NEELA GFR IS code = 1092) sq m NOT ACCURATE CREATININE CLEARANCE IN PREDICTING GLOMERULAR FILTRATION RATE . ESTIMATED GFR I S NOT APPLICABLE FOR DIALYSIS PATIEN TS. Stitcher Hand ID - PIAYA LHEPATIC FUNCTION [id number] 04:35:00 Test Item Value Reference Range Interpretation Comments TOTAL PROTEIN (BEAKER) 7.7 gm/dL 6.0-8.3 Speci men slightly (test code = 770) hemolyzed ALBUMIN (BEAKER) (test 4.2 g/dL 3.5-5.0 Speci men slightly code = 1145) hemolyzed BILIRUBIN TOTAL 0.8 mg/dL 0.2-1.2 Specimen sli ghtly (BEAKER) (test code = hemoly zed 377) BILIRUBIN DIRECT 0.3 mg/dL 0.1-0.5 Specimen sl ightly (BEAKER) (test code = hemoly zed 706) ALKALINE PHOSPHATASE 107 U/L 40-150 (BEAKER) (test code = 346) AST (SGOT) (BEAKER) 16 U/L 5-34 Specimen slightly (test code = 353) hemolyzed ALT (SGPT) (BEAKER) 11 U/L 6-55 Specimen slightly (test code = 347) hemolyzed Stitcher Hand ID - PIAYA LBASIC METABOLIC [id number] 19:13:00 Test Item Value Reference Range Interpretation Comments SODIUM (BEAKER) 129 meq/L 136-145 L (test code = 381) POTASSIUM (BEAKER) 3.7 meq/L 3.5-5.1 (test code = 379) CHLORIDE (BEAKER) 88 meq/L 98-107 L (test code = 382) CO2 (BEAKER) (test 31 meq/L 22-29 H code = 355) BLOOD UREA NITROGEN 35 mg/dL 7-21 H (BEAKER) (test code = 354) CREATININE (BEAKER) 1.43 mg/dL 0.57-1.25 H (test code = 358) GLUCOSE RANDOM 144 mg/dL 70-105 H (BEAKER) (test code = 652) CALCIUM (BEAKER) 8.9 mg/dL 8.4-10.2 (test code = 697) EGFR (BEAKER) (test 52 mL/min/1.73 ESTIMA NEELA GFR IS code = 1092) sq m NOT ACCURATE CREATININE CLEARANCE IN PREDICTING GLOMERULAR FILTRATION RATE . ESTIMATED GFR I S NOT APPLICABLE FOR DIALYSIS PATIEN TS. Stitcher Hand ID - [id number] 15:11:00 Test Item Value Reference Range Interpretation Comments POTASSIUM (BEAKER) 3.2 meq/L 3.5-5.1 L Specimen slightly (test code = 379) hemolyzed Stitcher Hand ID - [id number] 15:10:00 Test Item Value Reference Range Interpretation Comments MAGNESIUM (BEAKER) 1.8 mg/dL 1.6-2.6 Specimen slightly (test code = 627) hemolyzed Stitcher Hand ID - BSBASIC METABOLIC [id number] 09:27:00 Test Item Value Reference Range Interpretation Comments SODIUM (BEAKER) 129 meq/L 136-145 L (test code = 381) POTASSIUM (BEAKER) 3.2 meq/L 3.5-5.1 L Specimen slightly (test code = 379) hemolyzed CHLORIDE (BEAKER) 88 meq/L 98-107 L (test code = 382) CO2 (BEAKER) (test 27 meq/L 22-29 code = 355) BLOOD UREA NITROGEN 37 mg/dL 7-21 H (BEAKER) (test code = 354) CREATININE (BEAKER) 1.67 mg/dL 0.57-1.25 H Specimen slightly (test code = 358) hemolyzed GLUCOSE RANDOM 136 mg/dL 70-105 H (BEAKER) (test code = 652) CALCIUM (BEAKER) 8.5 mg/dL 8.4-10.2 (test code = 697) EGFR (BEAKER) (test 44 mL/min/1.73 ESTIMA NEELA GFR IS code = 1092) sq m NOT ACCURATE CREATININE CLEARANCE IN PREDICTING GLOMERULAR FILTRATION RATE . ESTIMATED GFR I S NOT APPLICABLE FOR DIALYSIS PATIEN TS. Stitcher Hand ID - PINISHANT [id number] 08:38:00 Test Item Value Reference Range Interpretation Comments HOMOCYSTEINE (CLEMENTINA) (test code 19.8 umol/L 5.1-15.4 H = 642) Stitcher Hand ID - SOCO LRAD, CHEST, 1 VIEW, NON [id number] 07:23:00Reason for exam:->confirming placement of established R PICC lineShould this be performed at the bedside?->Yes [facility] 1970 Sex: MFINAL REPORT RAD, CHEST, 1 VIEW, NON DEPT INDICATION: confirming placement of established R PICC line COMPARISON: Prior day's exam FINDINGS: Portable frontal view of the chest. IMPRESSION: Support Lines: PICC tip overlies the atriocaval junction. Pacer device. Lungs and pleura: Lungs remain hypoinflated. Diffuse interstitial thickening, representing singly or in combination, interstitial edema and/or pneumonitis. No significant pneumothorax. Heart and mediastinum: Stable contours. Additional findings: None. Signed: Keila Sorto Verified Date/Time: 06/03/2021 07:23:24 Reading Location: [address] Neuro Reading Room Electronically signed by: Matias VILLANUEVA 06/03/2021 07:23 AMU/S, RENAL, [id number] 07:01:00Reason for exam:->akiShould this be performed at the bedside?->Yes [facility] : 1970 Sex: MFINAL REPORT Ultrasound of the Kidneys Clinical History: david Comparison: None. Discussion: Sonographic evaluation of the kidneys was performed. The study is limited due to poor acousticshadows. Right kidney: 12.3 x 7.4 x 7 cm, with cortical thickness of 1.6 cm. Normal cortical echogenicity. No mass. No shadowing calculus. No hydronephrosis. Left kidney: 13 x 6.5 x 6.1 cm, with cortical thickness of 1.7 cm. Normal cortical echogenicity. No mass. No shadowing calculus. No hydronephrosis. Limited doppler evaluation of bilateral main renal arteries and veins demonstrate patency. Bladder: Unremarkable. Impression:Limited exam.No hydronephrosis. Signed: Glenys King Verified Date/Time: 06/03/2021 07:01:22 TSH/FREE T4 IF [id number] 02:53:00 Test Item Value Reference Range Interpretation Comments THYROID STIMULATING HORMONE 1.448 uIU/mL 0.350-4.940 (BEAKER) (test code = 772) Stitcher Hand ID - SOCO [id number] 02:41:00 Test Item Value Reference Range Interpretation Comments MAGNESIUM (BEAKER) 2.0 mg/dL 1.6-2.6 Specimen moderately (test code = 627) hemolyzed Stitcher Hand ID - SO [id number] 02:41:00 Test Item Value Reference Range Interpretation Comments PHOSPHORUS (BEAKER) 4.2 mg/dL 2.3-4.7 Specimen moderately (test code = 604) hemolyzed Stitcher Hand ID - SO MCOMPREHENSIVE METABOLIC [id number] 02:41:00 Test Item Value Reference Range Interpretation Comments TOTAL PROTEIN 7.9 gm/dL 6.0-8.3 Specimen moder ately (BEAKER) (test code = hemoly zed 770) ALBUMIN (BEAKER) 4.2 g/dL 3.5-5.0 Specimen mo derately (test code = 1145) hemolyzed ALKALINE PHOSPHATASE 101 U/L 40-150 (BEAKER) (test code = 346) BILIRUBIN TOTAL 0.9 mg/dL 0.2-1.2 Specimen mod erately (BEAKER) (test code = hemoly zed 377) SODIUM (BEAKER) (test 127 meq/L 136-145 L code = 381) POTASSIUM (BEAKER) 3.5 meq/L 3.5-5.1 Specimen moderately (test code = 379) hemolyzed CHLORIDE (BEAKER) 89 meq/L 98-107 L (test code = 382) CO2 (BEAKER) (test 25 meq/L 22-29 code = 355) BLOOD UREA NITROGEN 37 mg/dL 7-21 H (BEAKER) (test code = 354) CREATININE (BEAKER) 1.83 mg/dL 0.57-1.25 H Specimen moderately (test code = 358) hemolyzed GLUCOSE RANDOM 131 mg/dL 70-105 H (BEAKER) (test code = 652) CALCIUM (BEAKER) 8.5 mg/dL 8.4-10.2 (test code = 697) AST (SGOT) (BEAKER) 21 U/L 5-34 Specimen moderately (test code = 353) hemolyzed ALT (SGPT) (BEAKER) 13 U/L 6-55 Specimen moderately (test code = 347) hemolyzed EGFR (BEAKER) (test 39 mL/min/1.73 ESTIMA NEELA GFR IS code = 1092) sq m NOT ACCURATE CREATININE CLEARANCE IN PREDICTING GLOMERULAR FILTRATION RATE . ESTIMATED GFR I S NOT APPLICABLE FOR DIALYSIS PATIEN TS. Stitcher Hand ID - SO MHEPATIC FUNCTION [id number] 02:41:00 Test Item Value Reference Range Interpretation Comments TOTAL PROTEIN (BEAKER) 7.9 gm/dL 6.0-8.3 Speci men moderately (test code = 770) hemolyzed ALBUMIN (BEAKER) (test 4.2 g/dL 3.5-5.0 Speci men moderately code = 1145) hemolyzed BILIRUBIN TOTAL 0.9 mg/dL 0.2-1.2 Specimen mod erately (BEAKER) (test code = hemoly zed 377) BILIRUBIN DIRECT 0.3 mg/dL 0.1-0.5 Specimen mo derately (BEAKER) (test code = hemoly zed 706) ALKALINE PHOSPHATASE 101 U/L 40-150 (BEAKER) (test code = 346) AST (SGOT) (BEAKER) 21 U/L 5-34 Specimen moderately (test code = 353) hemolyzed ALT (SGPT) (BEAKER) 13 U/L 6-55 Specimen moderately (test code = 347) hemolyzed Stitcher Hand ID - SO [facility] W/PLT COUNT & AUTO [id number] 02:19:00 Test Item Value Reference Range Interpretation Comments WHITE BLOOD CELL COUNT (BEAKER) 11.6 K/ L 3.5-10.5 H (test code = 775) RED BLOOD CELL COUNT (BEAKER) 3.50 M/ L 4.63-6.08 L (test code = 761) HEMOGLOBIN (BEAKER) (test code = 9.2 GM/DL 13.7-17.5 L 410) HEMATOCRIT (BEAKER) (test code = 29.7 % 40.1-51.0 L 411) MEAN CORPUSCULAR VOLUME (BEAKER) 84.9 fL 79.0-92.2 (test code = 753) MEAN CORPUSCULAR HEMOGLOBIN 26.3 pg 25.7-32.2 (BEAKER) (test code = 751) MEAN CORPUSCULAR HEMOGLOBIN CONC 31.0 GM/DL 32.3-36.5 L (BEAKER) (test code = 752) RED CELL DISTRIBUTION WIDTH 15.6 % 11.6-14.4 H (BEAKER) (test code = 412) PLATELET COUNT (BEAKER) (test 302 K/CU MM 150-450 code = 756) MEAN PLATELET VOLUME (BEAKER) 9.1 fL 9.4-12.4 L (test code = 754) NUCLEATED RED BLOOD CELLS 0 /100 WBC 0-0 (BEAKER) (test code = 413) NEUTROPHILS RELATIVE PERCENT 86 % (BEAKER) (test code = 429) LYMPHOCYTES RELATIVE PERCENT 8 % (BEAKER) (test code = 430) MONOCYTES RELATIVE PERCENT 4 % (BEAKER) (test code = 431) EOSINOPHILS RELATIVE PERCENT 2 % (BEAKER) (test code = 432) BASOPHILS RELATIVE PERCENT 0 % (BEAKER) (test code = 437) NEUTROPHILS ABSOLUTE COUNT 9.93 K/ L 1.78-5.38 H (BEAKER) (test code = 670) LYMPHOCYTES ABSOLUTE COUNT 0.96 K/ L 1.32-3.57 L (BEAKER) (test code = 414) MONOCYTES ABSOLUTE COUNT (BEAKER) 0.46 K/ L 0.30-0.82 (test code = 415) EOSINOPHILS ABSOLUTE COUNT 0.19 K/ L 0.04-0.54 (BEAKER) (test code = 416) BASOPHILS ABSOLUTE COUNT (BEAKER) 0.01 K/ L 0.01-0.08 (test code = 417) IMMATURE GRANULOCYTES-RELATIVE 0 % 0-1 PERCENT (BEAKER) (test code = 2801) CALCIUM, [id number] 02:03:00 Test Item Value Reference Range Interpretation Comments CALCIUM IONIZED (BEAKER) (test 1.06 mmol/L 1.12-1.27 L code = 698) PH, BLOOD (BEAKER) (test code = 7.41 1810) CREATININE, RANDOM [id number] 20:55:00 Test Item Value Reference Range Interpretation Comments CREATININE URINE (BEAKER) (test 50.8 mg/dL code = 375) Reference Range: No NormalsOperator ID - DBPROTEIN, RANDOM [id number] 20:55:00 Test Item Value Reference Range Interpretation Comments PROTEIN, URINE (BEAKER) (test code = < mg/dL 0-14 1569) Stitcher Hand ID - DBURINALYSIS W/ [id number] 20:20:00 Test Item Value Reference Range Interpretation Comments COLOR (BEAKER) (test code = 470) Light Yellow CLARITY (BEAKER) (test code = Clear 469) SPECIFIC GRAVITY UA (BEAKER) 1.011 1.001-1.035 (test code = 468) PH UA (BEAKER) (test code = 467) 6.0 5.0-8.0 PROTEIN UA (BEAKER) (test code = Negative Negative 464) GLUCOSE UA (BEAKER) (test code = Negative Negative 365) KETONES UA (BEAKER) (test code = Negative Negative 371) BILIRUBIN UA (BEAKER) (test code Negative Negative = 462) BLOOD UA (BEAKER) (test code = Negative Negative 461) NITRITE UA (BEAKER) (test code = Negative Negative 465) LEUKOCYTE ESTERASE UA (BEAKER) Negative Negative (test code = 466) UROBILINOGEN UA (BEAKER) (test 0.2 mg/dL 0.2-1.0 code = 463) RBC UA (BEAKER) (test code = 0 /HPF 519) WBC UA (BEAKER) (test code = 3 /HPF 520) BACTERIA (BEAKER) (test code = None Seen 517) SQUAMOUS EPITHELIAL (BEAKER) < /HPF (test code = 516) HYALINE CASTS (BEAKER) (test 13 /LPF code = 514) CRYSTALS, URINE (BEAKER) (test None Seen code = 1521) SOURCE(BEAKER) (test code = 6935) Stitcher Hand ID - [auto]Stitcher Hand ID - techIRON, TIBC, % SAT. (WITHOUT FERRITIN) 2021-06-02 19:59:00 Test Item Value Reference Range Interpretation Comments IRON (BEAKER) (test code = 547) 52.0 ug/dL 40.0-160.0 TOTAL IRON BINDING CAPACITY 481 ug/dL 250-450 H (BEAKER) (test code = 769) IRON % SATURATION (2) (BEAKER) 11 % 20-55 L (test code = 2590) Stitcher Hand ID - [id number] 19:46:00 Test Item Value Reference Range Interpretation Comments FERRITIN (BEAKER) (test code = 17.79 ng/mL 5.00-275.00 361) Stitcher Hand ID - DBVITAMIN B12 AND [id number] 19:06:00 Test Item Value Reference Range Interpretation Comments VITAMIN B12 (BEAKER) 264 pg/mL 213-816 (test code = 774) FOLATE (BEAKER) 9.70 ng/mL See_Comment [Automated message] (test code = 362) The system which generated this result transmitted ref erence range: >=7.00. The reference range was not used to interpr et this result as normal/abnormal . Stitcher Hand ID - DBBASIC METABOLIC [id number] 18:56:00 Test Item Value Reference Range Interpretation Comments SODIUM (BEAKER) 127 meq/L 136-145 L (test code = 381) POTASSIUM (BEAKER) 4.8 meq/L 3.5-5.1 Specimen slightly (test code = 379) hemolyzed CHLORIDE (BEAKER) 91 meq/L 98-107 L (test code = 382) CO2 (BEAKER) (test 22 meq/L 22-29 code = 355) BLOOD UREA NITROGEN 39 mg/dL 7-21 H (BEAKER) (test code = 354) CREATININE (BEAKER) 2.08 mg/dL 0.57-1.25 H Specimen slightly (test code = 358) hemolyzed GLUCOSE RANDOM 140 mg/dL 70-105 H (BEAKER) (test code = 652) CALCIUM (BEAKER) 8.8 mg/dL 8.4-10.2 (test code = 697) EGFR (BEAKER) (test 34 mL/min/1.73 ESTIMA NEELA GFR IS code = 1092) sq m NOT ACCURATE CREATININE CLEARANCE IN PREDICTING GLOMERULAR FILTRATION RATE . ESTIMATED GFR I S NOT APPLICABLE FOR DIALYSIS PATIEN TS. Stitcher Hand ID - DBBASIC METABOLIC [id number] 09:11:00 Test Item Value Reference Range Interpretation Comments SODIUM (BEAKER) 131 meq/L 136-145 L (test code = 381) POTASSIUM (BEAKER) 3.9 meq/L 3.5-5.1 (test code = 379) CHLORIDE (BEAKER) 92 meq/L 98-107 L (test code = 382) CO2 (BEAKER) (test 26 meq/L 22-29 code = 355) BLOOD UREA NITROGEN 34 mg/dL 7-21 H (BEAKER) (test code = 354) CREATININE (BEAKER) 2.18 mg/dL 0.57-1.25 H (test code = 358) GLUCOSE RANDOM 145 mg/dL 70-105 H (BEAKER) (test code = 652) CALCIUM (BEAKER) 8.6 mg/dL 8.4-10.2 (test code = 697) EGFR (BEAKER) (test 32 mL/min/1.73 ESTIMA NEELA GFR IS code = 1092) sq m NOT ACCURATE CREATININE CLEARANCE IN PREDICTING GLOMERULAR FILTRATION RATE . ESTIMATED GFR I S NOT APPLICABLE FOR DIALYSIS PATIEN TS. Stitcher Hand ID - SO [id number] 03:11:00 Test Item Value Reference Range Interpretation Comments MAGNESIUM (BEAKER) 2.6 mg/dL 1.6-2.6 Specimen slightly (test code = 627) hemolyzed Stitcher Hand ID - DBBASIC METABOLIC [id number] 03:11:00 Test Item Value Reference Range Interpretation Comments SODIUM (BEAKER) 129 meq/L 136-145 L (test code = 381) POTASSIUM (BEAKER) 3.9 meq/L 3.5-5.1 Specimen slightly (test code = 379) hemolyzed CHLORIDE (BEAKER) 93 meq/L 98-107 L (test code = 382) CO2 (BEAKER) (test 25 meq/L 22-29 code = 355) BLOOD UREA NITROGEN 34 mg/dL 7-21 H (BEAKER) (test code = 354) CREATININE (BEAKER) 2.33 mg/dL 0.57-1.25 H Specimen slightly (test code = 358) hemolyzed GLUCOSE RANDOM 134 mg/dL 70-105 H (BEAKER) (test code = 652) CALCIUM (BEAKER) 8.4 mg/dL 8.4-10.2 (test code = 697) EGFR (BEAKER) (test 30 mL/min/1.73 ESTIMA NEELA GFR IS code = 1092) sq m NOT ACCURATE CREATININE CLEARANCE IN PREDICTING GLOMERULAR FILTRATION RATE . ESTIMATED GFR I S NOT APPLICABLE FOR DIALYSIS PATIEN TS. Stitcher Hand ID - DBHEPATIC FUNCTION [id number] 03:11:00 Test Item Value Reference Range Interpretation Comments TOTAL PROTEIN (BEAKER) 7.4 gm/dL 6.0-8.3 Speci men slightly (test code = 770) hemolyzed ALBUMIN (BEAKER) (test 4.0 g/dL 3.5-5.0 Speci men slightly code = 1145) hemolyzed BILIRUBIN TOTAL 0.8 mg/dL 0.2-1.2 Specimen sli ghtly (BEAKER) (test code = hemoly zed 377) BILIRUBIN DIRECT 0.3 mg/dL 0.1-0.5 Specimen sl ightly (BEAKER) (test code = hemoly zed 706) ALKALINE PHOSPHATASE 90 U/L 40-150 (BEAKER) (test code = 346) AST (SGOT) (BEAKER) 18 U/L 5-34 Specimen slightly (test code = 353) hemolyzed ALT (SGPT) (BEAKER) 14 U/L 6-55 Specimen slightly (test code = 347) hemolyzed Stitcher Hand ID - DBCBC W/PLT COUNT & AUTO [id number] 02:53:00 Test Item Value Reference Range Interpretation Comments WHITE BLOOD CELL COUNT (BEAKER) 9.5 K/ L 3.5-10.5 (test code = 775) RED BLOOD CELL COUNT (BEAKER) 3.47 M/ L 4.63-6.08 L (test code = 761) HEMOGLOBIN (BEAKER) (test code = 9.1 GM/DL 13.7-17.5 L 410) HEMATOCRIT (BEAKER) (test code = 29.0 % 40.1-51.0 L 411) MEAN CORPUSCULAR VOLUME (BEAKER) 83.6 fL 79.0-92.2 (test code = 753) MEAN CORPUSCULAR HEMOGLOBIN 26.2 pg 25.7-32.2 (BEAKER) (test code = 751) MEAN CORPUSCULAR HEMOGLOBIN CONC 31.4 GM/DL 32.3-36.5 L (BEAKER) (test code = 752) RED CELL DISTRIBUTION WIDTH 15.9 % 11.6-14.4 H (BEAKER) (test code = 412) PLATELET COUNT (BEAKER) (test 283 K/CU MM 150-450 code = 756) MEAN PLATELET VOLUME (BEAKER) 8.9 fL 9.4-12.4 L (test code = 754) NUCLEATED RED BLOOD CELLS 0 /100 WBC 0-0 (BEAKER) (test code = 413) NEUTROPHILS RELATIVE PERCENT 77 % (BEAKER) (test code = 429) LYMPHOCYTES RELATIVE PERCENT 14 % (BEAKER) (test code = 430) MONOCYTES RELATIVE PERCENT 7 % (BEAKER) (test code = 431) EOSINOPHILS RELATIVE PERCENT 2 % (BEAKER) (test code = 432) BASOPHILS RELATIVE PERCENT 0 % (BEAKER) (test code = 437) NEUTROPHILS ABSOLUTE COUNT 7.29 K/ L 1.78-5.38 H (BEAKER) (test code = 670) LYMPHOCYTES ABSOLUTE COUNT 1.33 K/ L 1.32-3.57 (BEAKER) (test code = 414) MONOCYTES ABSOLUTE COUNT (BEAKER) 0.64 K/ L 0.30-0.82 (test code = 415) EOSINOPHILS ABSOLUTE COUNT 0.22 K/ L 0.04-0.54 (BEAKER) (test code = 416) BASOPHILS ABSOLUTE COUNT (BEAKER) 0.02 K/ L 0.01-0.08 (test code = 417) IMMATURE GRANULOCYTES-RELATIVE 0 % 0-1 PERCENT (BEAKER) (test code = 2801) COMPREHENSIVE METABOLIC [id number] 22:34:00 Test Item Value Reference Range Interpretation Comments TOTAL PROTEIN 7.3 gm/dL 6.0-8.3 (BEAKER) (test code = 770) ALBUMIN (BEAKER) 4.2 g/dL 3.5-5.0 (test code = 1145) ALKALINE PHOSPHATASE 90 U/L 40-150 (BEAKER) (test code = 346) BILIRUBIN TOTAL 0.8 mg/dL 0.2-1.2 (BEAKER) (test code = 377) SODIUM (BEAKER) (test 129 meq/L 136-145 L code = 381) POTASSIUM (BEAKER) 3.9 meq/L 3.5-5.1 (test code = 379) CHLORIDE (BEAKER) 92 meq/L 98-107 L (test code = 382) CO2 (BEAKER) (test 26 meq/L - code = 355) BLOOD UREA NITROGEN 31 mg/dL 7-21 H (BEAKER) (test code = 354) CREATININE (BEAKER) 2.09 mg/dL 0.57-1.25 H (test code = 358) GLUCOSE RANDOM 127 mg/dL 70-105 H (BEAKER) (test code = 652) CALCIUM (BEAKER) 8.7 mg/dL 8.4-10.2 (test code = 697) AST (SGOT) (BEAKER) 11 U/L 5-34 (test code = 353) ALT (SGPT) (BEAKER) 12 U/L 6-55 (test code = 347) EGFR (BEAKER) (test 34 mL/min/1.73 ESTIMA NEELA GFR IS code = 1092) sq m NOT ACCURATE CREATININE CLEARANCE IN PREDICTING GLOMERULAR FILTRATION RATE . ESTIMATED GFR I S NOT APPLICABLE FOR DIALYSIS PATIEN TS. Stitcher Hand ID - DBLACTIC ACID, [id number] 22:01:00 Test Item Value Reference Range Interpretation Comments LACTATE BLOOD VENOUS (2) (BEAKER) 1.75 mmol/L 0.50-2.20 (test code = 2872) Stitcher Hand ID - YURYBLOOD GAS, [id number] 21:52:00 Test Item Value Reference Range Interpretation Comments PH VENOUS (BEAKER) (test code = 7.40 7.32-7.42 701) PCO2 VENOUS (BEAKER) (test code = 49 mm Hg 41-51 755) PO2 VENOUS (BEAKER) (test code = 32 mm Hg 25-40 702) O2 SATURATION VENOUS (BEAKER) 60.4 % 40.0-70.0 (test code = 703) HCO3 VENOUS (BEAKER) (test code = 30 mmol/L 21-29 H 705) BASE EXCESS VENOUS (BEAKER) (test 4.3 mmol/L -2.0-3.0 H code = 704) PATIENT TEMPERATURE (BEAKER) (test 37.0 code = 1818) FIO2 (BEAKER) (test code = 1819) 21.0 [id number] 12:31:00 Test Item Value Reference Range Interpretation Comments MAGNESIUM (BEAKER) (test code = 2.0 mg/dL 1.6-2.6 627) Stitcher Hand ID - SOCO [id number] 12:31:00 Test Item Value Reference Range Interpretation Comments POTASSIUM (BEAKER) (test code = 3.4 meq/L 3.5-5.1 L 379) Stitcher Hand ID - SOCO [id number] 09:26:00 Test Item Value Reference Range Interpretation Comments MAGNESIUM (BEAKER) 1.7 mg/dL 1.6-2.6 Specimen slightly (test code = 627) hemolyzed Stitcher Hand ID - SOCO LCOMPREHENSIVE METABOLIC [id number] 08:36:00 Test Item Value Reference Range Interpretation Comments TOTAL PROTEIN 7.3 gm/dL 6.0-8.3 (BEAKER) (test code = 770) ALBUMIN (BEAKER) 4.1 g/dL 3.5-5.0 (test code = 1145) ALKALINE PHOSPHATASE 92 U/L 40-150 (BEAKER) (test code = 346) BILIRUBIN TOTAL 0.7 mg/dL 0.2-1.2 (BEAKER) (test code = 377) SODIUM (BEAKER) (test 135 meq/L 136-145 L code = 381) POTASSIUM (BEAKER) 3.5 meq/L 3.5-5.1 (test code = 379) CHLORIDE (BEAKER) 93 meq/L 98-107 L (test code = 382) CO2 (BEAKER) (test 28 meq/L 22-29 code = 355) BLOOD UREA NITROGEN 22 mg/dL 7-21 H (BEAKER) (test code = 354) CREATININE (BEAKER) 1.37 mg/dL 0.57-1.25 H (test code = 358) GLUCOSE RANDOM 134 mg/dL 70-105 H (BEAKER) (test code = 652) CALCIUM (BEAKER) 9.2 mg/dL 8.4-10.2 (test code = 697) AST (SGOT) (BEAKER) 15 U/L 5-34 (test code = 353) ALT (SGPT) (BEAKER) 11 U/L 6-55 (test code = 347) EGFR (BEAKER) (test 55 mL/min/1.73 ESTIMA NEELA GFR IS code = 1092) sq m NOT ACCURATE CREATININE CLEARANCE IN PREDICTING GLOMERULAR FILTRATION RATE . ESTIMATED GFR I S NOT APPLICABLE FOR DIALYSIS PATIEN TS. Stitcher Hand ID - [facility] METABOLIC [id number] 08:36:00 Test Item Value Reference Range Interpretation Comments SODIUM (BEAKER) 135 meq/L 136-145 L (test code = 381) POTASSIUM (BEAKER) 3.5 meq/L 3.5-5.1 (test code = 379) CHLORIDE (BEAKER) 93 meq/L 98-107 L (test code = 382) CO2 (BEAKER) (test 28 meq/L 22-29 code = 355) BLOOD UREA NITROGEN 22 mg/dL 7-21 H (BEAKER) (test code = 354) CREATININE (BEAKER) 1.37 mg/dL 0.57-1.25 H (test code = 358) GLUCOSE RANDOM 134 mg/dL 70-105 H (BEAKER) (test code = 652) CALCIUM (BEAKER) 9.2 mg/dL 8.4-10.2 (test code = 697) EGFR (BEAKER) (test 55 mL/min/1.73 ESTIMA NEELA GFR IS code = 1092) sq m NOT ACCURATE CREATININE CLEARANCE IN PREDICTING GLOMERULAR FILTRATION RATE . ESTIMATED GFR I S NOT APPLICABLE FOR DIALYSIS PATIEN TS. CBC W/PLT COUNT & AUTO [id number] 07:09:00 Test Item Value Reference Range Interpretation Comments WHITE BLOOD CELL COUNT (BEAKER) 10.7 K/ L 3.5-10.5 H (test code = 775) RED BLOOD CELL COUNT (BEAKER) 3.54 M/ L 4.63-6.08 L (test code = 761) HEMOGLOBIN (BEAKER) (test code = 9.4 GM/DL 13.7-17.5 L 410) HEMATOCRIT (BEAKER) (test code = 29.7 % 40.1-51.0 L 411) MEAN CORPUSCULAR VOLUME (BEAKER) 83.9 fL 79.0-92.2 (test code = 753) MEAN CORPUSCULAR HEMOGLOBIN 26.6 pg 25.7-32.2 (BEAKER) (test code = 751) MEAN CORPUSCULAR HEMOGLOBIN CONC 31.6 GM/DL 32.3-36.5 L (BEAKER) (test code = 752) RED CELL DISTRIBUTION WIDTH 15.3 % 11.6-14.4 H (BEAKER) (test code = 412) PLATELET COUNT (BEAKER) (test 286 K/CU MM 150-450 code = 756) MEAN PLATELET VOLUME (BEAKER) 8.9 fL 9.4-12.4 L (test code = 754) NUCLEATED RED BLOOD CELLS 0 /100 WBC 0-0 (BEAKER) (test code = 413) NEUTROPHILS RELATIVE PERCENT 82 % (BEAKER) (test code = 429) LYMPHOCYTES RELATIVE PERCENT 11 % (BEAKER) (test code = 430) MONOCYTES RELATIVE PERCENT 5 % (BEAKER) (test code = 431) EOSINOPHILS RELATIVE PERCENT 1 % (BEAKER) (test code = 432) BASOPHILS RELATIVE PERCENT 0 % (BEAKER) (test code = 437) NEUTROPHILS ABSOLUTE COUNT 8.72 K/ L 1.78-5.38 H (BEAKER) (test code = 670) LYMPHOCYTES ABSOLUTE COUNT 1.21 K/ L 1.32-3.57 L (BEAKER) (test code = 414) MONOCYTES ABSOLUTE COUNT (BEAKER) 0.56 K/ L 0.30-0.82 (test code = 415) EOSINOPHILS ABSOLUTE COUNT 0.11 K/ L 0.04-0.54 (BEAKER) (test code = 416) BASOPHILS ABSOLUTE COUNT (BEAKER) 0.02 K/ L 0.01-0.08 (test code = 417) IMMATURE GRANULOCYTES-RELATIVE 0 % 0-1 PERCENT (BEAKER) (test code = 2801) [id number] 04:22:00 Test Item Value Reference Range Interpretation Comments MAGNESIUM (BEAKER) (test code = 1.6 mg/dL 1.6-2.6 627) Stitcher Hand ID - SOCO LHIGH SENSITIVITY TROPONIN [id number] 04:15:00 Test Item Value Reference Range Interpretation Comments HIGH SENSITIVITY 53 pg/ml See_Comment H [Automated message] TROPONIN I (test code = The system which [id number]) generated this result transmitted ref erence range: <=35. e reference range was not used to int erpret this result as normal/abnormal . Stitcher Hand ID - SOCO LThe [employer] BLEACHER STAT High Sensitivity Troponin-I results should be used in conjunction with other diagnostic information such as ECG, clinical observations and information, and patient symptoms to aid in the diagnosis of PR.SARS-COV2/RT-PCR ([facility])2021-05-31 16:51:00 Test Item Value Reference Range Interpretation Comments SARS-COV2/RT-PCR Negative Negative The SARS-Co V-2 target (test code = nucleic acids a re not [id number]) detected in thi s specimen. Negative result s do not preclude SARS-C oV-2 infection and s hould not be used as the ludmila e basis for patient managem ent decisions. Nega tive results must be combine d with clinical observ ations, patient history , and epidemiological information. A false negativ e result may occur if a spec imen is improperly gia ected, transported or handled. This SARS CoV-2 test is a rapid, real-time RT-PC R test intended for e qualitative detection of nu cleic acid from SARS-CoV-2 in a nasopharyngeal swab specimen collected from individuals suspected of CO VID-19 by their healthcar e provider. This test has been authorized by FDA under an EUA for use by authorized laboratories. This test is only authorized for the duration of the declaration that circumstances exist justifying the authorization of emergency use of in vitro diagnostic tests for detection and/or diagnosis of COVID-19 under Section 564(b)(1) of the Federal Food, Drug and Cosmetic Act, 21 U.S.C. 360bbb-3(b)(1), unless the authorization is terminated or revoked sooner. Fact Sheet for Healthcare Providers: https://www.[employer]/Documents/Xpert%20Xpress%20SARS%20CoV-2/Fact%20Sheets/302-3802%01IDWU-FNN-5%20 HEALTHCARE%20PROVIDERS%20FACT%20SHEET.pdf Fact Sheet for Healthcare Patients: https://www.[employer]/Documents/Xpert%20Xp ress%20SARS%20CoV-2/Fact%20Sheets/302-3801%44YGIU-SZW-2%20PATIENT%20FACT%20SHEET .pdfRAD, CHEST, 1 VIEW, NON [id number] 15:38:00Reason for exam:->cpShould this be performed at the bedside?->Yes [facility] : 1970 Sex: MFINAL REPORT Chest, one view. HISTORY: cp COMPARISON: Radiograph from 04/21/2021 IMPRESSION: The support lines and tubes are unchanged in position. There are prominent interstitial opacities of lungs, concerning for interstitial pulmonary edema. Infection cannot be excluded on the basisof this radiograph. Small right pleural effusion. No pneumothorax. The cardiac silhouette is enlarged but unchanged the prior. No acute bone abnormality. Signed: Catalino Bender Verified Date/Time:05/31/2021 15:38:47 Reading Location: [address] Body Reading Room HIGH SENSITIVITY TROPONIN [id number] 15:17:00 Test Item Value Reference Range Interpretation Comments HIGH SENSITIVITY 46 pg/ml See_Comment H [Automated message] TROPONIN I (test code = The system which [id number]) generated this result transmitted ref erence range: <=35. Th e reference range was not used to int erpret this result as normal/abnormal . Stitcher Hand ID - DBThe [employer] BLE[employer]ER STAT High Sensitivity Troponin-I results should be used in conjunctionwith other diagnostic information such as ECG, clinical observations and information, and patient symptoms to aid in the diagnosis of PR.B-TYPE NATRIURETIC FACTOR (BNP)2021-05-31 15:17:00 Test Item Value Reference Range Interpretation Comments B-TYPE NATRIURETIC PEPTIDE (BEAKER) 977 pg/mL 0-100 H (test code = 700) Stitcher Hand ID - DBCOMPREHENSIVE METABOLIC [id number] 15:11:00 Test Item Value Reference Range Interpretation Comments TOTAL PROTEIN 7.3 gm/dL 6.0-8.3 Specimen sligh tly (BEAKER) (test code = hemoly zed 770) ALBUMIN (BEAKER) 4.1 g/dL 3.5-5.0 Specimen sl ightly (test code = 1145) hemolyzed ALKALINE PHOSPHATASE 92 U/L 40-150 (BEAKER) (test code = 346) BILIRUBIN TOTAL 1.0 mg/dL 0.2-1.2 Specimen sli ghtly (BEAKER) (test code = hemoly zed 377) SODIUM (BEAKER) (test 136 meq/L 136-145 code = 381) POTASSIUM (BEAKER) 3.0 meq/L 3.5-5.1 L Specimen slightly (test code = 379) hemolyzed CHLORIDE (BEAKER) 93 meq/L 98-107 L (test code = 382) CO2 (BEAKER) (test 30 meq/L 22-29 H code = 355) BLOOD UREA NITROGEN 18 mg/dL 7-21 (BEAKER) (test code = 354) CREATININE (BEAKER) 1.05 mg/dL 0.57-1.25 Specimen slightly (test code = 358) hemolyzed GLUCOSE RANDOM 105 mg/dL 70-105 (BEAKER) (test code = 652) CALCIUM (BEAKER) 9.5 mg/dL 8.4-10.2 (test code = 697) AST (SGOT) (BEAKER) 14 U/L 5-34 Specimen slightly (test code = 353) hemolyzed ALT (SGPT) (BEAKER) 11 U/L 6-55 Specimen slightly (test code = 347) hemolyzed EGFR (BEAKER) (test 75 mL/min/1.73 ESTIMA NEELA GFR IS code = 1092) sq m NOT ACCURATE CREATININE CLEARANCE IN PREDICTING GLOMERULAR FILTRATION RATE . ESTIMATED GFR I S NOT APPLICABLE FOR DIALYSIS PATIEN TS. Stitcher Hand ID - DBCBC W/PLT COUNT & AUTO [id number] 14:58:00 Test Item Value Reference Range Interpretation Comments WHITE BLOOD CELL COUNT (BEAKER) 9.8 K/ L 3.5-10.5 (test code = 775) RED BLOOD CELL COUNT (BEAKER) 3.79 M/ L 4.63-6.08 L (test code = 761) HEMOGLOBIN (BEAKER) (test code = 10.0 GM/DL 13.7-17.5 L 410) HEMATOCRIT (BEAKER) (test code = 32.2 % 40.1-51.0 L 411) MEAN CORPUSCULAR VOLUME (BEAKER) 85.0 fL 79.0-92.2 (test code = 753) MEAN CORPUSCULAR HEMOGLOBIN 26.4 pg 25.7-32.2 (BEAKER) (test code = 751) MEAN CORPUSCULAR HEMOGLOBIN CONC 31.1 GM/DL 32.3-36.5 L (BEAKER) (test code = 752) RED CELL DISTRIBUTION WIDTH 15.2 % 11.6-14.4 H (BEAKER) (test code = 412) PLATELET COUNT (BEAKER) (test 331 K/CU MM 150-450 code = 756) MEAN PLATELET VOLUME (BEAKER) 9.0 fL 9.4-12.4 L (test code = 754) NUCLEATED RED BLOOD CELLS 0 /100 WBC 0-0 (BEAKER) (test code = 413) NEUTROPHILS RELATIVE PERCENT 82 % (BEAKER) (test code = 429) LYMPHOCYTES RELATIVE PERCENT 11 % (BEAKER) (test code = 430) MONOCYTES RELATIVE PERCENT 6 % (BEAKER) (test code = 431) EOSINOPHILS RELATIVE PERCENT 1 % (BEAKER) (test code = 432) BASOPHILS RELATIVE PERCENT 0 % (BEAKER) (test code = 437) NEUTROPHILS ABSOLUTE COUNT 8.04 K/ L 1.78-5.38 H (BEAKER) (test code = 670) LYMPHOCYTES ABSOLUTE COUNT 1.05 K/ L 1.32-3.57 L (BEAKER) (test code = 414) MONOCYTES ABSOLUTE COUNT (BEAKER) 0.59 K/ L 0.30-0.82 (test code = 415) EOSINOPHILS ABSOLUTE COUNT 0.09 K/ L 0.04-0.54 (BEAKER) (test code = 416) BASOPHILS ABSOLUTE COUNT (BEAKER) 0.01 K/ L 0.01-0.08 (test code = 417) IMMATURE GRANULOCYTES-RELATIVE 0 % 0-1 PERCENT (BEAKER) (test code = 2801) B-TYPE NATRIURETIC FACTOR (BNP)2021-05-22 14:36:00 Test Item Value Reference Range Interpretation Comments B-TYPE NATRIURETIC PEPTIDE (BEAKER) 974 pg/mL 0-100 H (test code = 700) Stitcher Hand ID - EMERSONBASIC METABOLIC [id number] 14:31:00 Test Item Value Reference Range Interpretation Comments SODIUM (BEAKER) 137 meq/L 136-145 (test code = 381) POTASSIUM (BEAKER) 3.4 meq/L 3.5-5.1 L (test code = 379) CHLORIDE (BEAKER) 96 meq/L 98-107 L (test code = 382) CO2 (BEAKER) (test 28 meq/L 22-29 code = 355) BLOOD UREA NITROGEN 15 mg/dL 7-21 (BEAKER) (test code = 354) CREATININE (BEAKER) 1.29 mg/dL 0.57-1.25 H (test code = 358) GLUCOSE RANDOM 132 mg/dL 70-105 H (BEAKER) (test code = 652) CALCIUM (BEAKER) 9.6 mg/dL 8.4-10.2 (test code = 697) EGFR (BEAKER) (test 59 mL/min/1.73 ESTIMA NEELA GFR IS code = 1092) sq m NOT ACCURATE CREATININE CLEARANCE IN PREDICTING GLOMERULAR FILTRATION RATE . ESTIMATED GFR I S NOT APPLICABLE FOR DIALYSIS PATIEN TS. Stitcher Hand ID - EMERSONCBC W/PLT COUNT & AUTO [id number] 14:06:00 Test Item Value Reference Range Interpretation Comments WHITE BLOOD CELL COUNT (BEAKER) 8.6 K/ L 3.5-10.5 (test code = 775) RED BLOOD CELL COUNT (BEAKER) 3.60 M/ L 4.63-6.08 L (test code = 761) HEMOGLOBIN (BEAKER) (test code = 9.7 GM/DL 13.7-17.5 L 410) HEMATOCRIT (BEAKER) (test code = 31.6 % 40.1-51.0 L 411) MEAN CORPUSCULAR VOLUME (BEAKER) 87.8 fL 79.0-92.2 (test code = 753) MEAN CORPUSCULAR HEMOGLOBIN 26.9 pg 25.7-32.2 (BEAKER) (test code = 751) MEAN CORPUSCULAR HEMOGLOBIN CONC 30.7 GM/DL 32.3-36.5 L (BEAKER) (test code = 752) RED CELL DISTRIBUTION WIDTH 15.4 % 11.6-14.4 H (BEAKER) (test code = 412) PLATELET COUNT (BEAKER) (test 297 K/CU MM 150-450 code = 756) MEAN PLATELET VOLUME (BEAKER) 8.8 fL 9.4-12.4 L (test code = 754) NUCLEATED RED BLOOD CELLS 0 /100 WBC 0-0 (BEAKER) (test code = 413) NEUTROPHILS RELATIVE PERCENT 82 % (BEAKER) (test code = 429) LYMPHOCYTES RELATIVE PERCENT 12 % (BEAKER) (test code = 430) MONOCYTES RELATIVE PERCENT 4 % (BEAKER) (test code = 431) EOSINOPHILS RELATIVE PERCENT 1 % (BEAKER) (test code = 432) BASOPHILS RELATIVE PERCENT 0 % (BEAKER) (test code = 437) NEUTROPHILS ABSOLUTE COUNT 7.03 K/ L 1.78-5.38 H (BEAKER) (test code = 670) LYMPHOCYTES ABSOLUTE COUNT 1.06 K/ L 1.32-3.57 L (BEAKER) (test code = 414) MONOCYTES ABSOLUTE COUNT (BEAKER) 0.38 K/ L 0.30-0.82 (test code = 415) EOSINOPHILS ABSOLUTE COUNT 0.08 K/ L 0.04-0.54 (BEAKER) (test code = 416) BASOPHILS ABSOLUTE COUNT (BEAKER) 0.01 K/ L 0.01-0.08 (test code = 417) IMMATURE GRANULOCYTES-RELATIVE 1 % 0-1 PERCENT (BEAKER) (test code = 2801) CT, [id number] 16:11:00Unlisted Reason for Exam - Click Yes and Enter Reason Below->YesUnlisted Reason for Exam->[id number] this procedure require oral contrast?->No [facility] : 1970 Sex: MFINAL REPORT TECHNIQUE: CT of the chest, abdomen, and pelvis WITHOUT intravenous contrast and WITHOUT oral contrast. Dose modulation, iterative reconstruction, and/or weight-based adjustment of the mA/kV was utilized to reduce the radiation dose to as low as reasonably achievable. INDICATION: 51-year-old man with left ventricular assist device workup. COMPARISON: None. FINDINGS: ABSENCE OF INTRAVENOUS CONTRAST DECREASES SENSITIVITY FOR DETECTION OF FOCAL LESIONS AND VASCULAR PATHOLOGY. LINES/TUBES/DEVICES: Implanted cardiac device in the soft tissues of the anterior left chest with leads which terminate in the right atrium, right ventricle, and coronary sinus. Right upper extremity PICC terminates in the high superior vena cava. LUNGS AND AIRWAYS: Patent central airways. Mild interlobular septal thickening scattered in both lungs. Mild bibasilar atelectasis. No suspicious pulmonary nodule.PLEURA: Bilateral trace pleural effusions.HEART AND MEDIASTINUM: Visualized thyroid gland is normal. No significant mediastinal, hilar, or axillary lymphadenopathy. Cardiomegaly. No pericardial effusion. HEPATOBILIARY: No focal hepatic lesion. Gallbladder is unremarkable. No biliary ductal dilatation.SPLEEN: No splenomegaly.PANCREAS: No focal mass or ductal dilatation. ADRENALS: No adrenal nodule.KIDNEYS/URETERS: No hydronephrosis, calculus, or mass.PELVIC ORGANS/BLADDER: Bladder is underdistended. Prostate and seminal vesicles are grossly unremarkable. PERITONEUM/RETROPERITONEUM: No free air or fluid.LYMPH NODES: No lymphadenopathy.VESSELS: Unremarkable. GI TRACT: No distention or wall thickening. Normal appendix. BONES AND SOFT TISSUES: No acute osseous abnormality. Degenerative changes of the visualized spine. Soft tissues are unremarkable. IMPRESSION: Chest CT:*Mild interlobular septal thickening in both lungs, suggestive of interstitial edema.*Bilateral trace pleural effusions.*Car diomegaly. Abdomen and pelvis CT:No acute abnormality. Signed: Donaldo Carty MDReport Verified Date/Time: 05/20/2021 16:11:02 Reading Location: [facility] C013Y CT Body Reading Room Electronically signedby: DONALDO CARTY MD on 05/20/2021 04:11 PMCT, CHEST, WITHOUT [id number] 16:11:00Unlisted Reason for Exam - Click Yes and Enter Reason Below->YesUnlisted Reason for Exam->[facility]OName: DANA WEST : 1970 Sex: MFINAL REPORT TECHNIQUE: CT of the chest, abdomen, and pelvis WITHOUT intravenous contrast and WITHOUT oral contrast. Dose modulation, iterative reconstruction, and/or weight-based adjustment of the mA/kV was utilized to reduce the radiation dose to as low as reasonably achievable. INDICATION: 51-year-old man with left ventricular assist device workup. COMPARISON: None. FINDINGS: ABSENCE OF INTRAVENOUS CONTRAST DECREASES SENSITIVITY FOR DETECTION OF FOCAL LESIONS AND VASCULAR PATHOLOGY. LINES/TUBES/DEVICES: Implanted cardiac device in the soft tissues of the anterior left chest with leads which terminate in the right atrium, right ventricle, and coronary sinus. Right upper extremity PICC terminates in the high superior vena cava. LUNGS AND AIRWAYS: Patent central airways. Mild interlobular septal thickening scattered in both lungs. Mild bibasilar atelectasis. No suspicious pulmonary nodule.PLEURA: Bilateral trace pleural effusions.HEART AND MEDIASTINUM: Visualized thyroid gland is normal. No significant mediastinal, hilar, or axillary lymphadenopathy. Cardiomegaly. No pericardial effusion. HEPATOBILIARY: No focal hepatic lesion. Gallbladder is unremarkable. No biliary ductal dilatation.SPLEEN: No splenomegaly.PANCREAS: No focal mass or ductal dilatation. ADRENALS: No adrenal nodule.KIDNEYS/URETERS: No hydronephrosis, calculus, or mass.PELVIC ORGANS/BLADDER: Bladder is underdistended. Prostate and seminal vesicles are grossly unremarkable. PERITONEUM/RETROPERITONEUM: No free air or fluid.LYMPH NODES: No lymphadenopathy.VESSELS: Unremarkable. GI TRACT: No distention or wall thickening. Normal appendix. BONES AND SOFT TISSUES: No acute osseous abnormality. Degenerative changes of the visualized spine. Soft tissues are unremarkable. IMPRESSION: Chest CT:*Mild interlobular septal thickening in both lungs, suggestive of interstitial edema.*Bilateral trace pleural effusions.*Car diomegaly. Abdomen and pelvis CT:No acute abnormality. Signed: Donaldo Carty MDReport Verified Date/Time: 05/20/2021 16:11:02 Reading Location: [address] Body Reading Room Electronically signedby: DONALDO CARTY MD on 05/20/2021 04:11 PMCT, BRAIN, WITHOUT [id number] 08:21:00Unlisted Reason for Exam - Click Yes and Enter Reason Below->YesUnlisted Reason for Exam->[facility]ENTERName: DANA WEST : 1970 Sex: MFINAL REPORT CT, BRAIN, WITHOUT CONTRAST CLINICAL INDICATION: Unlisted Reason for ExamLVAD GARBER COMPARISON: None TECHNIQUE: Noncontrast axial CT imaging of the brain and skull. DOSE REDUCTION: Dose modulation, iterative reconstruction, and/or weight-based adjustment of the mA/kV was utilized to reduce the radiation dose to as low as reasonably achievable. FINDINGS:No intracranial hemorrhage, midline shift or mass effect. Midline structures are normally developed. Mild chronic microvascular ischemic changes of the periventricular and subcortical white matter are present. No hydrocephalus. Orbits are within normal limits. No obstructive paranasal sinus disease. IMPRESSION: No acute intracranial findings If there is persistent clinical concern for intracranial pathology, MR examinationis recommended for further characterization. Signed: Keila Sorto MDReport Verified Date/Time: 08:21:36 Reading Location: [address] Neuro Reading Room /FREE T4 IF [id number] 15:31:00 Test Item Value Reference Range Interpretation Comments THYROID STIMULATING HORMONE 4.799 uIU/mL 0.350-4.940 (BEAKER) (test code = 772) Stitcher Hand ID - ADMINB-TYPE NATRIURETIC FACTOR (BNP)2021-05-15 15:18:00 Test Item Value Reference Range Interpretation Comments B-TYPE NATRIURETIC PEPTIDE 1139 pg/mL 0-100 H (BEAKER) (test code = 700) Stitcher Hand ID - ADMINBASIC METABOLIC [id number] 15:10:00 Test Item Value Reference Range Interpretation Comments SODIUM (BEAKER) 140 meq/L 136-145 (test code = 381) POTASSIUM (BEAKER) 2.9 meq/L 3.5-5.1 L (test code = 379) CHLORIDE (BEAKER) 97 meq/L 98-107 L (test code = 382) CO2 (BEAKER) (test 27 meq/L 22-29 code = 355) BLOOD UREA NITROGEN 13 mg/dL 7-21 (BEAKER) (test code = 354) CREATININE (BEAKER) 1.15 mg/dL 0.57-1.25 (test code = 358) GLUCOSE RANDOM 107 mg/dL 70-105 H (BEAKER) (test code = 652) CALCIUM (BEAKER) 8.3 mg/dL 8.4-10.2 L (test code = 697) EGFR (BEAKER) (test 67 mL/min/1.73 ESTIMA NEELA GFR IS code = 1092) sq m NOT ACCURATE CREATININE CLEARANCE IN PREDICTING GLOMERULAR FILTRATION RATE . ESTIMATED GFR I S NOT APPLICABLE FOR DIALYSIS PATIEN TS. Stitcher Hand ID - ADMINCBC W/PLT COUNT & AUTO [id number] 14:48:00 Test Item Value Reference Range Interpretation Comments WHITE BLOOD CELL COUNT (BEAKER) 7.2 K/ L 3.5-10.5 (test code = 775) RED BLOOD CELL COUNT (BEAKER) 3.75 M/ L 4.63-6.08 L (test code = 761) HEMOGLOBIN (BEAKER) (test code = 10.4 GM/DL 13.7-17.5 L 410) HEMATOCRIT (BEAKER) (test code = 34.0 % 40.1-51.0 L 411) MEAN CORPUSCULAR VOLUME (BEAKER) 90.7 fL 79.0-92.2 (test code = 753) MEAN CORPUSCULAR HEMOGLOBIN 27.7 pg 25.7-32.2 (BEAKER) (test code = 751) MEAN CORPUSCULAR HEMOGLOBIN CONC 30.6 GM/DL 32.3-36.5 L (BEAKER) (test code = 752) RED CELL DISTRIBUTION WIDTH 15.3 % 11.6-14.4 H (BEAKER) (test code = 412) PLATELET COUNT (BEAKER) (test 283 K/CU MM 150-450 code = 756) MEAN PLATELET VOLUME (BEAKER) 9.1 fL 9.4-12.4 L (test code = 754) NUCLEATED RED BLOOD CELLS 0 /100 WBC 0-0 (BEAKER) (test code = 413) NEUTROPHILS RELATIVE PERCENT 81 % (BEAKER) (test code = 429) LYMPHOCYTES RELATIVE PERCENT 11 % (BEAKER) (test code = 430) MONOCYTES RELATIVE PERCENT 6 % (BEAKER) (test code = 431) EOSINOPHILS RELATIVE PERCENT 1 % (BEAKER) (test code = 432) BASOPHILS RELATIVE PERCENT 0 % (BEAKER) (test code = 437) NEUTROPHILS ABSOLUTE COUNT 5.86 K/ L 1.78-5.38 H (BEAKER) (test code = 670) LYMPHOCYTES ABSOLUTE COUNT 0.80 K/ L 1.32-3.57 L (BEAKER) (test code = 414) MONOCYTES ABSOLUTE COUNT (BEAKER) 0.45 K/ L 0.30-0.82 (test code = 415) EOSINOPHILS ABSOLUTE COUNT 0.09 K/ L 0.04-0.54 (BEAKER) (test code = 416) BASOPHILS ABSOLUTE COUNT (BEAKER) 0.01 K/ L 0.01-0.08 (test code = 417) IMMATURE GRANULOCYTES-RELATIVE 0 % 0-1 PERCENT (BEAKER) (test code = 2801) PLATELET AGGREGATION: FUNCTION [id number] 09:23:00 Test Item Value Reference Range Interpretation Comments [id number] Jason Ferreiramil, (BEAKER) (test code = M.D. 2622) PLATELET COUNT AGG 268 K/CU MM 150-450 (BEAKER) (test code = 2656) ADP (BEAKER) (test code 87 % 62-100 = 4654) PLATELET RICH 204 k/cu mm 200-300 PLASMA(BEAKER) (test code = 2134) PLATELET FUNCTION SCREEN Normal aggregation INTERPRETATION (BEAKER) results with ADP. No (test code = 4655) evidence of platelet dysfunction or P2Y12 inhibitor effect. Platelet Function Screen results may be falsely low with platelet counts<75,000/cu mm.Stitcher Hand ID- 6000LIPID [id number] 16:54:00 Test Item Value Reference Range Interpretation Comments TRIGLYCERIDES (BEAKER) (test code = 59 mg/dL 540) CHOLESTEROL (BEAKER) (test code = 149 mg/dL 631) HDL CHOLESTEROL (BEAKER) (test code 52 mg/dL = 976) LDL CHOLESTEROL CALCULATED (BEAKER) 85 mg/dL (test code = 633) Triglyceride Reference Range: Low Risk <150 Borderline 150-199 High Risk 200- 499 Very High Risk >=500Cholesterol Reference Range: Low Risk <200 Borderline 200-239 High Risk >240HDL Cholesterol Reference Range: Low Risk >=60 High Risk <40LDL Cholesterol Reference Range: Optimal <100 Near Optimal 100-129 Borderline 130-159 High 160-189 Very High >=190 Stitcher Hand ID - BSURIC [id number] 16:54:00 Test Item Value Reference Range Interpretation Comments URIC ACID (BEAKER) (test code = 6.0 mg/dL 2.6-7.2 773) Stitcher Hand ID - BSVITAMIN D, [id number] 14:48:00 Test Item Value Reference Range Interpretation Comments VITAMIN D 25-OH (BEAKER) (test 11.4 ng/mL 6.6-49.9 code = 2764) Effective 07/14/2017: Reference Range ChangeNew: 6.6-49.9 ng/mL Previous: 13.0- 47.8 ng/mLRecommendedVitamin D Target Range: 30.0-40.0 ng/mLOperator ID - SO M BASIC METABOLIC [id number] 14:35:00 Test Item Value Reference Range Interpretation Comments SODIUM (BEAKER) 139 meq/L 136-145 (test code = 381) POTASSIUM (BEAKER) 2.8 meq/L 3.5-5.1 L (test code = 379) CHLORIDE (BEAKER) 97 meq/L 98-107 L (test code = 382) CO2 (BEAKER) (test 31 meq/L 22-29 H code = 355) BLOOD UREA NITROGEN 16 mg/dL 7-21 (BEAKER) (test code = 354) CREATININE (BEAKER) 1.27 mg/dL 0.57-1.25 H (test code = 358) GLUCOSE RANDOM 115 mg/dL 70-105 H (BEAKER) (test code = 652) CALCIUM (BEAKER) 9.5 mg/dL 8.4-10.2 (test code = 697) EGFR (BEAKER) (test 60 mL/min/1.73 ESTIMA NEELA GFR IS code = 1092) sq m NOT ACCURATE CREATININE CLEARANCE IN PREDICTING GLOMERULAR FILTRATION RATE . ESTIMATED GFR I S NOT APPLICABLE FOR DIALYSIS PATIEN TS. Stitcher Hand ID - SO [id number] 14:35:00 Test Item Value Reference Range Interpretation Comments MAGNESIUM (BEAKER) (test code = 1.8 mg/dL 1.6-2.6 627) Stitcher Hand ID - SO [id number] 14:35:00 Test Item Value Reference Range Interpretation Comments PHOSPHORUS (BEAKER) (test code = 3.3 mg/dL 2.3-4.7 604) Stitcher Hand ID - SO MHEPATIC FUNCTION [id number] 14:35:00 Test Item Value Reference Range Interpretation Comments TOTAL PROTEIN (BEAKER) (test code = 7.9 gm/dL 6.0-8.3 770) ALBUMIN (BEAKER) (test code = 1145) 4.6 g/dL 3.5-5.0 BILIRUBIN TOTAL (BEAKER) (test code 0.8 mg/dL 0.2-1.2 = 377) BILIRUBIN DIRECT (BEAKER) (test 0.4 mg/dL 0.1-0.5 code = 706) ALKALINE PHOSPHATASE (BEAKER) (test 80 U/L 40-150 code = 346) AST (SGOT) (BEAKER) (test code = 14 U/L 5-34 353) ALT (SGPT) (BEAKER) (test code = 14 U/L 6-55 347) Stitcher Hand ID - SO [id number] 14:35:00 Test Item Value Reference Range Interpretation Comments AMYLASE (BEAKER) (test code = 349) 35 U/L 25-125 Stitcher Hand ID - SO MCHOLESTEROL, [id number] 14:35:00 Test Item Value Reference Range Interpretation Comments CHOLESTEROL (BEAKER) (test code = 150 mg/dL 631) Cholesterol Reference Range: Low Risk <200 Borderline 200-239 High Risk >240 Stitcher Hand ID - SO MLACTATE DEHYDROGENASE (LDH)2021-05-08 14:35:00 Test Item Value Reference Range Interpretation Comments LACTATE DEHYDROGENASE (BEAKER) (test 226 U/L 125-220 H code = 635) Stitcher Hand ID - SO [id number] 14:35:00 Test Item Value Reference Range Interpretation Comments LIPASE (BEAKER) (test code = 749) 7 U/L 8-78 L Stitcher Hand ID - SO [id number] 14:29:00 Test Item Value Reference Range Interpretation Comments PREALBUMIN (BEAKER) (test code = 25 mg/dL 14-45 586) Stitcher Hand ID - SO MCBC W/PLT COUNT & AUTO [id number] 14:19:00 Test Item Value Reference Range Interpretation Comments WHITE BLOOD CELL COUNT (BEAKER) 7.3 K/ L 3.5-10.5 (test code = 775) RED BLOOD CELL COUNT (BEAKER) 3.50 M/ L 4.63-6.08 L (test code = 761) HEMOGLOBIN (BEAKER) (test code = 9.8 GM/DL 13.7-17.5 L 410) HEMATOCRIT (BEAKER) (test code = 32.1 % 40.1-51.0 L 411) MEAN CORPUSCULAR VOLUME (BEAKER) 91.7 fL 79.0-92.2 (test code = 753) MEAN CORPUSCULAR HEMOGLOBIN 28.0 pg 25.7-32.2 (BEAKER) (test code = 751) MEAN CORPUSCULAR HEMOGLOBIN CONC 30.5 GM/DL 32.3-36.5 L (BEAKER) (test code = 752) RED CELL DISTRIBUTION WIDTH 15.8 % 11.6-14.4 H (BEAKER) (test code = 412) PLATELET COUNT (BEAKER) (test 265 K/CU MM 150-450 code = 756) MEAN PLATELET VOLUME (BEAKER) 9.1 fL 9.4-12.4 L (test code = 754) NUCLEATED RED BLOOD CELLS 0 /100 WBC 0-0 (BEAKER) (test code = 413) NEUTROPHILS RELATIVE PERCENT 81 % (BEAKER) (test code = 429) LYMPHOCYTES RELATIVE PERCENT 12 % (BEAKER) (test code = 430) MONOCYTES RELATIVE PERCENT 5 % (BEAKER) (test code = 431) EOSINOPHILS RELATIVE PERCENT 2 % (BEAKER) (test code = 432) BASOPHILS RELATIVE PERCENT 0 % (BEAKER) (test code = 437) NEUTROPHILS ABSOLUTE COUNT 5.93 K/ L 1.78-5.38 H (BEAKER) (test code = 670) LYMPHOCYTES ABSOLUTE COUNT 0.88 K/ L 1.32-3.57 L (BEAKER) (test code = 414) MONOCYTES ABSOLUTE COUNT (BEAKER) 0.35 K/ L 0.30-0.82 (test code = 415) EOSINOPHILS ABSOLUTE COUNT 0.12 K/ L 0.04-0.54 (BEAKER) (test code = 416) BASOPHILS ABSOLUTE COUNT (BEAKER) 0.02 K/ L 0.01-0.08 (test code = 417) IMMATURE GRANULOCYTES-RELATIVE 0 % 0-1 PERCENT (BEAKER) (test code = 2801) [id number] 14:18:00 Test Item Value Reference Range Interpretation Comments PARTIAL THROMBOPLASTIN TIME 32.7 seconds 22.5-36.0 (BEAKER) (test code = 760) PROTHROMBIN TIME/[id number] 14:17:00 Test Item Value Reference Range Interpretation Comments PROTIME (BEAKER) 14.5 seconds 11.9-14.2 H (test code = 759) INR (BEAKER) (test 1.15 See_Comment [Automat ed message] code = 370) The system g4interactive generated this result transmitted ref erence range: <=5.90. The reference range was not used to int erpret this result as normal/abnormal . RECOMMENDED COUMADIN/WARFARIN INR THERAPY RANGESSTANDARD DOSE: 2.0 - 3.0 Includes: PROPHYLAXIS for venous thrombosis, systemic embolization; TREATMENT for venous thrombosis and/or pulmonary embolus.HIGH RISK: Target INR is 2.5-3.5 for patients with mechanical heart valves.PLATELET [id number] 14:12:00 Test Item Value Reference Range Interpretation Comments PLATELET COUNT (BEAKER) (test 265 K/CU MM 150-450 code = 756) POCT-GLUCOSE [id number] 10:41:00 Test Item Value Reference Range Interpretation Comments POC-GLUCOSE METER 122 mg/dL 70-110 H : TESTED A T [facility] 67[address] (BEAKER) (test code = [place], 1538) [id number]: Stitcher Hand/Techni ebenezer ID = [id number] for Anushka Chambers BASIC METABOLIC [id number] 06:47:00 Test Item Value Reference Range Interpretation Comments SODIUM (BEAKER) 133 meq/L 136-145 L (test code = 381) POTASSIUM (BEAKER) 3.9 meq/L 3.5-5.1 (test code = 379) CHLORIDE (BEAKER) 89 meq/L 98-107 L (test code = 382) CO2 (BEAKER) (test 34 meq/L 22-29 H code = 355) BLOOD UREA NITROGEN 35 mg/dL 7-21 H (BEAKER) (test code = 354) CREATININE (BEAKER) 1.19 mg/dL 0.57-1.25 (test code = 358) GLUCOSE RANDOM 124 mg/dL 70-105 H (BEAKER) (test code = 652) CALCIUM (BEAKER) 9.3 mg/dL 8.4-10.2 (test code = 697) EGFR (BEAKER) (test 65 mL/min/1.73 ESTIMA NEELA GFR IS code = 1092) sq m NOT ACCURATE CREATININE CLEARANCE IN PREDICTING GLOMERULAR FILTRATION RATE . ESTIMATED GFR I S NOT APPLICABLE FOR DIALYSIS PATIEN TS. Stitcher Hand ID - FAUZIA [id number] 06:47:00 Test Item Value Reference Range Interpretation Comments MAGNESIUM (BEAKER) (test code = 2.1 mg/dL 1.6-2.6 627) Stitcher Hand ID Sal CAGE WCBC (HEMOGRAM ONLY)2021-04-23 05:44:00 Test Item Value Reference Range Interpretation Comments WHITE BLOOD CELL COUNT (BEAKER) 7.8 K/ L 3.5-10.5 (test code = 775) RED BLOOD CELL COUNT (BEAKER) 3.12 M/ L 4.63-6.08 L (test code = 761) HEMOGLOBIN (BEAKER) (test code = 8.9 GM/DL 13.7-17.5 L 410) HEMATOCRIT (BEAKER) (test code = 28.4 % 40.1-51.0 L 411) MEAN CORPUSCULAR VOLUME (BEAKER) 91.0 fL 79.0-92.2 (test code = 753) MEAN CORPUSCULAR HEMOGLOBIN 28.5 pg 25.7-32.2 (BEAKER) (test code = 751) MEAN CORPUSCULAR HEMOGLOBIN CONC 31.3 GM/DL 32.3-36.5 L (BEAKER) (test code = 752) RED CELL DISTRIBUTION WIDTH 16.3 % 11.6-14.4 H (BEAKER) (test code = 412) PLATELET COUNT (BEAKER) (test 194 K/CU MM 150-450 code = 756) MEAN PLATELET VOLUME (BEAKER) 9.0 fL 9.4-12.4 L (test code = 754) NUCLEATED RED BLOOD CELLS 0 /100 WBC 0-0 (BEAKER) (test code = 413) POCT-GLUCOSE [id number] 22:33:00 Test Item Value Reference Range Interpretation Comments POC-GLUCOSE METER 124 mg/dL 70-110 H : TESTED A T [facility] 6720 (BEAKER) (test code = [facility], 153) [id number]: Stitcher Hand/Techni ebenezer ID = [id number] for Fili Kern POCT-GLUCOSE [id number] 18:40:00 Test Item Value Reference Range Interpretation Comments POC-GLUCOSE METER 103 mg/dL 70-110 : TESTED A T [facility] 6720 (BEAKER) (test code = [facility], 153) [address]: Stitcher Hand/Techni ebenezer ID = [id number] for Morgan Padilla BASIC METABOLIC [id number] 17:49:00 Test Item Value Reference Range Interpretation Comments SODIUM (BEAKER) 130 meq/L 136-145 L (test code = 381) POTASSIUM (BEAKER) 3.9 meq/L 3.5-5.1 (test code = 379) CHLORIDE (BEAKER) 91 meq/L 98-107 L (test code = 382) CO2 (BEAKER) (test 30 meq/L 22-29 H code = 355) BLOOD UREA NITROGEN 41 mg/dL 7-21 H (BEAKER) (test code = 354) CREATININE (BEAKER) 1.65 mg/dL 0.57-1.25 H (test code = 358) GLUCOSE RANDOM 103 mg/dL 70-105 (BEAKER) (test code = 652) CALCIUM (BEAKER) 8.9 mg/dL 8.4-10.2 (test code = 697) EGFR (BEAKER) (test 44 mL/min/1.73 ESTIMA NEELA GFR IS code = 1092) sq m NOT ACCURATE CREATININE CLEARANCE IN PREDICTING GLOMERULAR FILTRATION RATE . ESTIMATED GFR I S NOT APPLICABLE FOR DIALYSIS PATIEN TS. Stitcher Hand ID - BSPOCT-GLUCOSE [id number] 13:47:00 Test Item Value Reference Range Interpretation Comments POC-GLUCOSE METER 116 mg/dL 70-110 H : TESTED A T [facility] 6720 (BEAKER) (test code = [facility], 153) [address]: Stitcher Hand/Techni ebenezer ID = [id number] for Morgan Padilla POCT-GLUCOSE [id number] 08:46:00 Test Item Value Reference Range Interpretation Comments POC-GLUCOSE METER 91 mg/dL 70-110 : TESTED A T [facility] 6720 (BEAKER) (test code = [place], 1538) [address]: Stitcher Hand/Techni ebenezer ID = [id number] for Morgan Whitfield BASIC METABOLIC [id number] 02:14:00 Test Item Value Reference Range Interpretation Comments SODIUM (BEAKER) 133 meq/L 136-145 L (test code = 381) POTASSIUM (BEAKER) 4.2 meq/L 3.5-5.1 (test code = 379) CHLORIDE (BEAKER) 93 meq/L 98-107 L (test code = 382) CO2 (BEAKER) (test 29 meq/L 22-29 code = 355) BLOOD UREA NITROGEN 44 mg/dL 7-21 H (BEAKER) (test code = 354) CREATININE (BEAKER) 1.87 mg/dL 0.57-1.25 H (test code = 358) GLUCOSE RANDOM 106 mg/dL 70-105 H (BEAKER) (test code = 652) CALCIUM (BEAKER) 8.9 mg/dL 8.4-10.2 (test code = 697) EGFR (BEAKER) (test 38 mL/min/1.73 ESTIMA NEELA GFR IS code = 1092) sq m NOT ACCURATE CREATININE CLEARANCE IN PREDICTING GLOMERULAR FILTRATION RATE . ESTIMATED GFR I S NOT APPLICABLE FOR DIALYSIS PATIEN TS. Stitcher Hand ID - [id number] 02:14:00 Test Item Value Reference Range Interpretation Comments MAGNESIUM (BEAKER) (test code = 2.4 mg/dL 1.6-2.6 627) Stitcher Hand ID - DBCBC (HEMOGRAM ONLY)2021-04-22 01:58:00 Test Item Value Reference Range Interpretation Comments WHITE BLOOD CELL COUNT (BEAKER) 9.1 K/ L 3.5-10.5 (test code = 775) RED BLOOD CELL COUNT (BEAKER) 2.86 M/ L 4.63-6.08 L (test code = 761) HEMOGLOBIN (BEAKER) (test code = 8.2 GM/DL 13.7-17.5 L 410) HEMATOCRIT (BEAKER) (test code = 26.7 % 40.1-51.0 L 411) MEAN CORPUSCULAR VOLUME (BEAKER) 93.4 fL 79.0-92.2 H (test code = 753) MEAN CORPUSCULAR HEMOGLOBIN 28.7 pg 25.7-32.2 (BEAKER) (test code = 751) MEAN CORPUSCULAR HEMOGLOBIN CONC 30.7 GM/DL 32.3-36.5 L (BEAKER) (test code = 752) RED CELL DISTRIBUTION WIDTH 16.5 % 11.6-14.4 H (BEAKER) (test code = 412) PLATELET COUNT (BEAKER) (test 216 K/CU MM 150-450 code = 756) MEAN PLATELET VOLUME (BEAKER) 9.4 fL 9.4-12.4 (test code = 754) NUCLEATED RED BLOOD CELLS 0 /100 WBC 0-0 (BEAKER) (test code = 413) BASIC METABOLIC [id number] 18:54:00 Test Item Value Reference Range Interpretation Comments SODIUM (BEAKER) 131 meq/L 136-145 L (test code = 381) POTASSIUM (BEAKER) 4.1 meq/L 3.5-5.1 (test code = 379) CHLORIDE (BEAKER) 90 meq/L 98-107 L (test code = 382) CO2 (BEAKER) (test 33 meq/L 22-29 H code = 355) BLOOD UREA NITROGEN 44 mg/dL 7-21 H (BEAKER) (test code = 354) CREATININE (BEAKER) 1.70 mg/dL 0.57-1.25 H (test code = 358) GLUCOSE RANDOM 99 mg/dL 70-105 (BEAKER) (test code = 652) CALCIUM (BEAKER) 8.7 mg/dL 8.4-10.2 (test code = 697) EGFR (BEAKER) (test 43 mL/min/1.73 ESTIMA NEELA GFR IS code = 1092) sq m NOT ACCURATE CREATININE CLEARANCE IN PREDICTING GLOMERULAR FILTRATION RATE . ESTIMATED GFR I S NOT APPLICABLE FOR DIALYSIS PATIEN TS. Stitcher Hand ID - dbPOCT-GLUCOSE [id number] 18:15:00 Test Item Value Reference Range Interpretation Comments POC-GLUCOSE METER 119 mg/dL 70-110 H : TESTED A T [facility] 6720 (BEAKER) (test code = [place], 1538) [address]: Stitcher Hand/Techni ebenezer ID = [id number] for Bryan sexton Ana POCT-GLUCOSE [id number] 11:30:00 Test Item Value Reference Range Interpretation Comments POC-GLUCOSE METER 84 mg/dL 70-110 : TESTED A T [facility] 6720 (CLEMENTINA) (test code = [place], 1538) [address]: Stitcher Hand/Techni ebenezer ID = [id number] for Ana Faulkner RAD, CHEST, 1 VIEW, NON [id number] 09:59:00Reason for exam:->PICC LINE PLACEMENTShould this be performed at the bedside?->Yes [facility] 1970 Sex: MFINAL REPORT Chest, one view. HISTORY: PICC LINE PLACEMENT COMPARISON: Radiograph from 04/05/2021 IMPRESSION: Unchanged positioning of a right PICC with the tip over the lower SVC. Interval removal of the right IJ central venous catheter. The left chest pacer/ICD is unchanged in position. There are some hazy opacity of the right lateral lower lung, although there is some overlapping soft tissue in this region. This could be due to atelectasis or scar. However, close attention on follow-up imaging is recommended. No pneumothorax. The cardiac silhouette is unchanged in size. No acute bone abnormality. Signed: Catalino Bender Verified Date/Time: 04/21/2021 09:59:12 POCT-GLUCOSE [id number] 07:33:00 Test Item Value Reference Range Interpretation Comments POC-GLUCOSE METER 132 mg/dL 70-110 H : TESTED A T [facility] ([place]) (test code = MLEVINA Olson [facility], 1538) [id number]: Stitcher Hand/Techni ebenezer ID = [id number] for Ana Pompa BASIC METABOLIC [id number] 06:56:00 Test Item Value Reference Range Interpretation Comments SODIUM (BEAKER) 131 meq/L 136-145 L (test code = 381) POTASSIUM (BEAKER) 4.3 meq/L 3.5-5.1 (test code = 379) CHLORIDE (BEAKER) 93 meq/L 98-107 L (test code = 382) CO2 (BEAKER) (test 27 meq/L 22-29 code = 355) BLOOD UREA NITROGEN 49 mg/dL 7-21 H (BEAKER) (test code = 354) CREATININE (BEAKER) 1.92 mg/dL 0.57-1.25 H (test code = 358) GLUCOSE RANDOM 128 mg/dL 70-105 H (BEAKER) (test code = 652) CALCIUM (BEAKER) 8.7 mg/dL 8.4-10.2 (test code = 697) EGFR (BEAKER) (test 37 mL/min/1.73 ESTIMA NEELA GFR IS code = 1092) sq m NOT ACCURATE CREATININE CLEARANCE IN PREDICTING GLOMERULAR FILTRATION RATE . ESTIMATED GFR I S NOT APPLICABLE FOR DIALYSIS PATIEN TS. Stitcher Hand ID - EMMANUEL [id number] 06:56:00 Test Item Value Reference Range Interpretation Comments MAGNESIUM (BEAKER) (test code = 2.3 mg/dL 1.6-2.6 627) Stitcher Hand ID - EMMANUEL FCBC (HEMOGRAM ONLY)2021-04-21 06:34:00 Test Item Value Reference Range Interpretation Comments WHITE BLOOD CELL COUNT (BEAKER) 8.1 K/ L 3.5-10.5 (test code = 775) RED BLOOD CELL COUNT (BEAKER) 2.92 M/ L 4.63-6.08 L (test code = 761) HEMOGLOBIN (BEAKER) (test code = 8.3 GM/DL 13.7-17.5 L 410) HEMATOCRIT (BEAKER) (test code = 27.3 % 40.1-51.0 L 411) MEAN CORPUSCULAR VOLUME (BEAKER) 93.5 fL 79.0-92.2 H (test code = 753) MEAN CORPUSCULAR HEMOGLOBIN 28.4 pg 25.7-32.2 (BEAKER) (test code = 751) MEAN CORPUSCULAR HEMOGLOBIN CONC 30.4 GM/DL 32.3-36.5 L (BEAKER) (test code = 752) RED CELL DISTRIBUTION WIDTH 16.6 % 11.6-14.4 H (BEAKER) (test code = 412) PLATELET COUNT (BEAKER) (test 226 K/CU MM 150-450 code = 756) MEAN PLATELET VOLUME (BEAKER) 9.4 fL 9.4-12.4 (test code = 754) NUCLEATED RED BLOOD CELLS 0 /100 WBC 0-0 (BEAKER) (test code = 413) POCT-GLUCOSE [id number] 21:19:00 Test Item Value Reference Range Interpretation Comments POC-GLUCOSE METER 143 mg/dL 70-110 H : TESTED A T [facility] 6720 (BEAKER) (test code = [facility], 1538) 97504: Stitcher Hand/Techni ebenezer ID = [id number] for Anushka Chambers POCT-GLUCOSE [id number] 17:58:00 Test Item Value Reference Range Interpretation Comments POC-GLUCOSE METER 143 mg/dL 70-110 H : TESTED A T [facility] 6720 (BEAKER) (test code = [facility], 153) 69319: Stitcher Hand/Techni ebenezer ID = [id number] for Ana Pompa BASIC METABOLIC [id number] 17:11:00 Test Item Value Reference Range Interpretation Comments SODIUM (BEAKER) 131 meq/L 136-145 L (test code = 381) POTASSIUM (BEAKER) 4.1 meq/L 3.5-5.1 (test code = 379) CHLORIDE (BEAKER) 92 meq/L 98-107 L (test code = 382) CO2 (BEAKER) (test 29 meq/L 22-29 code = 355) BLOOD UREA NITROGEN 43 mg/dL 7-21 H (BEAKER) (test code = 354) CREATININE (BEAKER) 1.68 mg/dL 0.57-1.25 H (test code = 358) GLUCOSE RANDOM 152 mg/dL 70-105 H (BEAKER) (test code = 652) CALCIUM (BEAKER) 8.7 mg/dL 8.4-10.2 (test code = 697) EGFR (BEAKER) (test 43 mL/min/1.73 ESTIMA NEELA GFR IS code = 1092) sq m NOT ACCURATE CREATININE CLEARANCE IN PREDICTING GLOMERULAR FILTRATION RATE . ESTIMATED GFR I S NOT APPLICABLE FOR DIALYSIS PATIEN TS. Stitcher Hand ID - DBPOCT-GLUCOSE [id number] 12:58:00 Test Item Value Reference Range Interpretation Comments POC-GLUCOSE METER 94 mg/dL 70-110 : TESTED A T [facility] 6720 (BEAKER) (test code = [facility], 1538) 74351: Stitcher Hand/Techni ebenezer ID = [id number] for Ana Faulkner POCT-GLUCOSE [id number] 08:38:00 Test Item Value Reference Range Interpretation Comments POC-GLUCOSE METER 120 mg/dL 70-110 H : TESTED A T [facility] 6720 (BEAKER) (test code = [facility], 1538) 703[address]: Stitcher Hand/Techni ebenezer ID = [id number] for Aan Pompa [id number] 03:16:00 Test Item Value Reference Range Interpretation Comments MAGNESIUM (BEAKER) 2.2 mg/dL 1.6-2.6 Specimen slightly (test code = 627) hemolyzed Stitcher Hand ID - PIAYA LBASIC METABOLIC [id number] 03:16:00 Test Item Value Reference Range Interpretation Comments SODIUM (BEAKER) 131 meq/L 136-145 L (test code = 381) POTASSIUM (BEAKER) 4.0 meq/L 3.5-5.1 Specimen slightly (test code = 379) hemolyzed CHLORIDE (BEAKER) 91 meq/L 98-107 L (test code = 382) CO2 (BEAKER) (test 31 meq/L 22-29 H code = 355) BLOOD UREA NITROGEN 42 mg/dL 7-21 H (BEAKER) (test code = 354) CREATININE (BEAKER) 1.36 mg/dL 0.57-1.25 H Specimen slightly (test code = 358) hemolyzed GLUCOSE RANDOM 114 mg/dL 70-105 H (BEAKER) (test code = 652) CALCIUM (BEAKER) 8.8 mg/dL 8.4-10.2 (test code = 697) EGFR (BEAKER) (test 55 mL/min/1.73 ESTIMA NEELA GFR IS code = 1092) sq m NOT ACCURATE CREATININE CLEARANCE IN PREDICTING GLOMERULAR FILTRATION RATE . ESTIMATED GFR I S NOT APPLICABLE FOR DIALYSIS PATIEN TS. Stitcher Hand ID - PIAYA LCBC (HEMOGRAM ONLY)2021-04-20 03:01:00 Test Item Value Reference Range Interpretation Comments WHITE BLOOD CELL COUNT (BEAKER) 8.2 K/ L 3.5-10.5 (test code = 775) RED BLOOD CELL COUNT (BEAKER) 3.01 M/ L 4.63-6.08 L (test code = 761) HEMOGLOBIN (BEAKER) (test code = 8.7 GM/DL 13.7-17.5 L 410) HEMATOCRIT (BEAKER) (test code = 28.0 % 40.1-51.0 L 411) MEAN CORPUSCULAR VOLUME (BEAKER) 93.0 fL 79.0-92.2 H (test code = 753) MEAN CORPUSCULAR HEMOGLOBIN 28.9 pg 25.7-32.2 (BEAKER) (test code = 751) MEAN CORPUSCULAR HEMOGLOBIN CONC 31.1 GM/DL 32.3-36.5 L (BEAKER) (test code = 752) RED CELL DISTRIBUTION WIDTH 16.4 % 11.6-14.4 H (BEAKER) (test code = 412) PLATELET COUNT (BEAKER) (test 220 K/CU MM 150-450 code = 756) MEAN PLATELET VOLUME (BEAKER) 9.0 fL 9.4-12.4 L (test code = 754) NUCLEATED RED BLOOD CELLS 0 /100 WBC 0-0 (BEAKER) (test code = 413) POCT-GLUCOSE [id number] 21:02:00 Test Item Value Reference Range Interpretation Comments POC-GLUCOSE METER 100 mg/dL 70-110 : TESTED A T [facility] 6720 (BEAKER) ([facility] = [facility] [employer] [place], 1538) [address]: Stitcher Hand/Techni ebenezer ID = [id number] for Anushka Chambers POCT-GLUCOSE [id number] 18:16:00 Test Item Value Reference Range Interpretation Comments POC-GLUCOSE METER 107 mg/dL 70-110 : TESTED A T [facility] 6720 (BEAKER) (test code = [facility] [employer] [place], 1538) 425[address]: Stitcher Hand/Techni ebenezer ID = [id number] for Ana Pompa BASIC METABOLIC [id number] 16:57:00 Test Item Value Reference Range Interpretation Comments SODIUM (BEAKER) 134 meq/L 136-145 L (test code = 381) POTASSIUM (BEAKER) 3.9 meq/L 3.5-5.1 (test code = 379) CHLORIDE (BEAKER) 95 meq/L 98-107 L (test code = 382) CO2 (BEAKER) (test 29 meq/L 22-29 code = 355) BLOOD UREA NITROGEN 45 mg/dL 7-21 H (BEAKER) (test code = 354) CREATININE (BEAKER) 1.46 mg/dL 0.57-1.25 H (test code = 358) GLUCOSE RANDOM 132 mg/dL 70-105 H (BEAKER) (test code = 652) CALCIUM (BEAKER) 8.5 mg/dL 8.4-10.2 (test code = 697) EGFR (BEAKER) (test 51 mL/min/1.73 ESTIMA NEELA GFR IS code = 1092) sq m NOT ACCURATE CREATININE CLEARANCE IN PREDICTING GLOMERULAR FILTRATION RATE . ESTIMATED GFR I S NOT APPLICABLE FOR DIALYSIS PATIEN TS. Stitcher Hand ID - DBPOCT-GLUCOSE [id number] 12:55:00 Test Item Value Reference Range Interpretation Comments POC-GLUCOSE METER 104 mg/dL 70-110 : TESTED A T [facility] 6720 (BEAKER) (test code = [facility], 1538) 81631: Stitcher Hand/Techni ebenezer ID = [id number] for Ana Pompa POCT-GLUCOSE [id number] 08:49:00 Test Item Value Reference Range Interpretation Comments POC-GLUCOSE METER 114 mg/dL 70-110 H : TESTED A T [facility] 6720 (BEAKER) (test code = [facility], 1538) 20339: Stitcher Hand/Techni ebenezer ID = [id number] for Ana Pompa [id number] 06:34:00 Test Item Value Reference Range Interpretation Comments MAGNESIUM (BEAKER) (test code = 2.4 mg/dL 1.6-2.6 627) Stitcher Hand ID - SO MBASIC METABOLIC [id number] 06:34:00 Test Item Value Reference Range Interpretation Comments SODIUM (BEAKER) 129 meq/L 136-145 L (test code = 381) POTASSIUM (BEAKER) 3.9 meq/L 3.5-5.1 (test code = 379) CHLORIDE (BEAKER) 91 meq/L 98-107 L (test code = 382) CO2 (BEAKER) (test 27 meq/L 22-29 code = 355) BLOOD UREA NITROGEN 47 mg/dL 7-21 H (BEAKER) (test code = 354) CREATININE (BEAKER) 1.44 mg/dL 0.57-1.25 H (test code = 358) GLUCOSE RANDOM 135 mg/dL 70-105 H (BEAKER) (test code = 652) CALCIUM (BEAKER) 8.4 mg/dL 8.4-10.2 (test code = 697) EGFR (BEAKER) (test 52 mL/min/1.73 ESTIMA NEELA GFR IS code = 1092) sq m NOT ACCURATE CREATININE CLEARANCE IN PREDICTING GLOMERULAR FILTRATION RATE . ESTIMATED GFR I S NOT APPLICABLE FOR DIALYSIS PATIEN TS. Stitcher Hand ID - SO MOperator ID - SO MC (HEMOGRAM ONLY)2021-04-19 05:19:00 Test Item Value Reference Range Interpretation Comments WHITE BLOOD CELL COUNT (BEAKER) 8.3 K/ L 3.5-10.5 (test code = 775) RED BLOOD CELL COUNT (BEAKER) 3.01 M/ L 4.63-6.08 L (test code = 761) HEMOGLOBIN (BEAKER) (test code = 8.6 GM/DL 13.7-17.5 L 410) HEMATOCRIT (BEAKER) (test code = 28.4 % 40.1-51.0 L 411) MEAN CORPUSCULAR VOLUME (BEAKER) 94.4 fL 79.0-92.2 H (test code = 753) MEAN CORPUSCULAR HEMOGLOBIN 28.6 pg 25.7-32.2 (BEAKER) (test code = 751) MEAN CORPUSCULAR HEMOGLOBIN CONC 30.3 GM/DL 32.3-36.5 L (BEAKER) (test code = 752) RED CELL DISTRIBUTION WIDTH 16.6 % 11.6-14.4 H (BEAKER) (test code = 412) PLATELET COUNT (BEAKER) (test 215 K/CU MM 150-450 code = 756) MEAN PLATELET VOLUME (BEAKER) 9.0 fL 9.4-12.4 L (test code = 754) NUCLEATED RED BLOOD CELLS 0 /100 WBC 0-0 (BEAKER) (test code = 413) POCT-GLUCOSE [id number] 21:55:00 Test Item Value Reference Range Interpretation Comments POC-GLUCOSE METER 138 mg/dL 70-110 H : TESTED A T [facility] 6720 (BEAKER) (test code = [facility] [employer] [facility], 1538) 72349: Stitcher Hand/Techni ebenezer ID = [id number] for Finesse Maravilla BASIC METABOLIC [id number] 17:28:00 Test Item Value Reference Range Interpretation Comments SODIUM (BEAKER) 130 meq/L 136-145 L (test code = 381) POTASSIUM (BEAKER) 3.8 meq/L 3.5-5.1 (test code = 379) CHLORIDE (BEAKER) 91 meq/L 98-107 L (test code = 382) CO2 (BEAKER) (test 28 meq/L 22-29 code = 355) BLOOD UREA NITROGEN 45 mg/dL 7-21 H (BEAKER) (test code = 354) CREATININE (BEAKER) 1.48 mg/dL 0.57-1.25 H (test code = 358) GLUCOSE RANDOM 120 mg/dL 70-105 H (BEAKER) (test code = 652) CALCIUM (BEAKER) 8.8 mg/dL 8.4-10.2 (test code = 697) EGFR (BEAKER) (test 50 mL/min/1.73 ESTIMA NEELA GFR IS code = 1092) sq m NOT ACCURATE CREATININE CLEARANCE IN PREDICTING GLOMERULAR FILTRATION RATE . ESTIMATED GFR I S NOT APPLICABLE FOR DIALYSIS PATIEN TS. Stitcher Hand ID - DBPOCT-GLUCOSE [id number] 12:57:00 Test Item Value Reference Range Interpretation Comments POC-GLUCOSE METER 133 mg/dL 70-110 H : TESTED A T [facility] 6720 (BEAKER) (test code = [facility] [employer] [facility], 1538) 79842: Stitcher Hand/Techni ebenezer ID = [id number] for MAIK WHITMAN POCT-GLUCOSE [id number] 08:54:00 Test Item Value Reference Range Interpretation Comments POC-GLUCOSE METER 127 mg/dL 70-110 H : TESTED A T [facility] 6720 (BEAKER) (test code = [facility], 1538) 87481: Stitcher Hand/Techni ebenezer ID = [id number] for MAIK WHITMAN BASIC METABOLIC [id number] 06:03:00 Test Item Value Reference Range Interpretation Comments SODIUM (BEAKER) 130 meq/L 136-145 L (test code = 381) POTASSIUM (BEAKER) 4.0 meq/L 3.5-5.1 (test code = 379) CHLORIDE (BEAKER) 92 meq/L 98-107 L (test code = 382) CO2 (BEAKER) (test 27 meq/L 22-29 code = 355) BLOOD UREA NITROGEN 51 mg/dL 7-21 H (BEAKER) (test code = 354) CREATININE (BEAKER) 1.50 mg/dL 0.57-1.25 H (test code = 358) GLUCOSE RANDOM 176 mg/dL 70-105 H (BEAKER) (test code = 652) CALCIUM (BEAKER) 8.3 mg/dL 8.4-10.2 L (test code = 697) EGFR (BEAKER) (test 50 mL/min/1.73 ESTIMA NEELA GFR IS code = 1092) sq m NOT ACCURATE CREATININE CLEARANCE IN PREDICTING GLOMERULAR FILTRATION RATE . ESTIMATED GFR I S NOT APPLICABLE FOR DIALYSIS PATIEN TS. Stitcher Hand ID - [id number] 06:03:00 Test Item Value Reference Range Interpretation Comments MAGNESIUM (BEAKER) (test code = 2.2 mg/dL 1.6-2.6 627) Stitcher Hand ID - EDASICBC (HEMOGRAM ONLY)2021-04-18 03:34:00 Test Item Value Reference Range Interpretation Comments WHITE BLOOD CELL COUNT (BEAKER) 9.5 K/ L 3.5-10.5 (test code = 775) RED BLOOD CELL COUNT (BEAKER) 3.19 M/ L 4.63-6.08 L (test code = 761) HEMOGLOBIN (BEAKER) (test code = 9.2 GM/DL 13.7-17.5 L 410) HEMATOCRIT (BEAKER) (test code = 29.1 % 40.1-51.0 L 411) MEAN CORPUSCULAR VOLUME (BEAKER) 91.2 fL 79.0-92.2 (test code = 753) MEAN CORPUSCULAR HEMOGLOBIN 28.8 pg 25.7-32.2 (BEAKER) (test code = 751) MEAN CORPUSCULAR HEMOGLOBIN CONC 31.6 GM/DL 32.3-36.5 L (BEAKER) (test code = 752) RED CELL DISTRIBUTION WIDTH 16.1 % 11.6-14.4 H (BEAKER) (test code = 412) PLATELET COUNT (BEAKER) (test 222 K/CU MM 150-450 code = 756) MEAN PLATELET VOLUME (BEAKER) 9.5 fL 9.4-12.4 (test code = 754) NUCLEATED RED BLOOD CELLS 0 /100 WBC 0-0 (BEAKER) (test code = 413) POCT-GLUCOSE [id number] 21:57:00 Test Item Value Reference Range Interpretation Comments POC-GLUCOSE METER 140 mg/dL 70-110 H : TESTED A T [facility] 6720 (BEAKER) (test code = [place], 1538) 24092: Stitcher Hand/Techni ebenezer ID = [id number] for CARLEE MONCADA BASIC METABOLIC [id number] 19:20:00 Test Item Value Reference Range Interpretation Comments SODIUM (BEAKER) 132 meq/L 136-145 L (test code = 381) POTASSIUM (BEAKER) 4.3 meq/L 3.5-5.1 Specimen slightly (test code = 379) hemolyzed CHLORIDE (BEAKER) 93 meq/L 98-107 L (test code = 382) CO2 (BEAKER) (test 26 meq/L 22-29 code = 355) BLOOD UREA NITROGEN 51 mg/dL 7-21 H (BEAKER) (test code = 354) CREATININE (BEAKER) 1.66 mg/dL 0.57-1.25 H Specimen slightly (test code = 358) hemolyzed GLUCOSE RANDOM 130 mg/dL 70-105 H (BEAKER) (test code = 652) CALCIUM (BEAKER) 8.6 mg/dL 8.4-10.2 (test code = 697) EGFR (BEAKER) (test 44 mL/min/1.73 ESTIMA NEELA GFR IS code = 1092) sq m NOT ACCURATE CREATININE CLEARANCE IN PREDICTING GLOMERULAR FILTRATION RATE . ESTIMATED GFR I S NOT APPLICABLE FOR DIALYSIS PATIEN TS. Stitcher Hand ID - ADMINPOCT-GLUCOSE [id number] 15:33:00 Test Item Value Reference Range Interpretation Comments POC-GLUCOSE METER 106 mg/dL 70-110 : TESTED A T [facility] 6720 (BEAKER) (test code [facility], = 1538) 83093: Stitcher Hand/Techni ebenezer ID = [id number] for BRANDAN SLAVONRIA POCT-GLUCOSE [id number] 11:04:00 Test Item Value Reference Range Interpretation Comments POC-GLUCOSE METER 141 mg/dL 70-110 H : TESTED A T [facility] 6720 (BEAKER) (test code [facility], = 1538) 00438: Stitcher Hand/Techni ebenezer ID = [id number] for HARISHI S, [place] BASIC METABOLIC [id number] 08:17:00 Test Item Value Reference Range Interpretation Comments SODIUM (BEAKER) 127 meq/L 136-145 L (test code = 381) POTASSIUM (BEAKER) 4.1 meq/L 3.5-5.1 (test code = 379) CHLORIDE (BEAKER) 89 meq/L 98-107 L (test code = 382) CO2 (BEAKER) (test 28 meq/L 22-29 code = 355) BLOOD UREA NITROGEN 48 mg/dL 7-21 H (BEAKER) (test code = 354) CREATININE (BEAKER) 1.76 mg/dL 0.57-1.25 H (test code = 358) GLUCOSE RANDOM 81 mg/dL 70-105 (BEAKER) (test code = 652) CALCIUM (BEAKER) 8.7 mg/dL 8.4-10.2 (test code = 697) EGFR (BEAKER) (test 41 mL/min/1.73 ESTIMA NEELA GFR IS code = 1092) sq m NOT ACCURATE CREATININE CLEARANCE IN PREDICTING GLOMERULAR FILTRATION RATE . ESTIMATED GFR I S NOT APPLICABLE FOR DIALYSIS PATIEN TS. Stitcher Hand ID - SOCO LOperator ID - ADMINPOCT-GLUCOSE [id number] 07:40:00 Test Item Value Reference Range Interpretation Comments POC-GLUCOSE METER 120 mg/dL 70-110 H : TESTED A T [facility] 6720 (BEAKER) (test code [facility], = 1538) 91147: Stitcher Hand/Techni ebenezer ID = [id number] for HARISHI S LATDEISYRIA [id number] 07:16:00 Test Item Value Reference Range Interpretation Comments MAGNESIUM (BEAKER) (test code = 2.1 mg/dL 1.6-2.6 627) Stitcher Hand ID - PIAYA LCBC (HEMOGRAM ONLY)2021-04-17 06:15:00 Test Item Value Reference Range Interpretation Comments WHITE BLOOD CELL COUNT (BEAKER) 9.6 K/ L 3.5-10.5 (test code = 775) RED BLOOD CELL COUNT (BEAKER) 3.11 M/ L 4.63-6.08 L (test code = 761) HEMOGLOBIN (BEAKER) (test code = 8.9 GM/DL 13.7-17.5 L 410) HEMATOCRIT (BEAKER) (test code = 28.2 % 40.1-51.0 L 411) MEAN CORPUSCULAR VOLUME (BEAKER) 90.7 fL 79.0-92.2 (test code = 753) MEAN CORPUSCULAR HEMOGLOBIN 28.6 pg 25.7-32.2 (BEAKER) (test code = 751) MEAN CORPUSCULAR HEMOGLOBIN CONC 31.6 GM/DL 32.3-36.5 L (BEAKER) (test code = 752) RED CELL DISTRIBUTION WIDTH 16.5 % 11.6-14.4 H (BEAKER) (test code = 412) PLATELET COUNT (BEAKER) (test 246 K/CU MM 150-450 code = 756) MEAN PLATELET VOLUME (BEAKER) 9.2 fL 9.4-12.4 L (test code = 754) NUCLEATED RED BLOOD CELLS 0 /100 WBC 0-0 (BEAKER) (test code = 413) POCT-GLUCOSE [id number] 21:50:00 Test Item Value Reference Range Interpretation Comments POC-GLUCOSE METER 149 mg/dL 70-110 H : TESTED A T [facility] 6720 (BEAKER) (test code = [place], 1538) 28567: Stitcher Hand/Techni ebenezer ID = [id number] for Finesse Maravilla BASIC METABOLIC [id number] 18:55:00 Test Item Value Reference Range Interpretation Comments SODIUM (BEAKER) 127 meq/L 136-145 L (test code = 381) POTASSIUM (BEAKER) 4.2 meq/L 3.5-5.1 (test code = 379) CHLORIDE (BEAKER) 89 meq/L 98-107 L (test code = 382) CO2 (BEAKER) (test 25 meq/L 22-29 code = 355) BLOOD UREA NITROGEN 43 mg/dL 7-21 H (BEAKER) (test code = 354) CREATININE (BEAKER) 1.85 mg/dL 0.57-1.25 H (test code = 358) GLUCOSE RANDOM 124 mg/dL 70-105 H (BEAKER) (test code = 652) CALCIUM (BEAKER) 8.2 mg/dL 8.4-10.2 L (test code = 697) EGFR (BEAKER) (test 39 mL/min/1.73 ESTIMA NEELA GFR IS code = 1092) sq m NOT ACCURATE CREATININE CLEARANCE IN PREDICTING GLOMERULAR FILTRATION RATE . ESTIMATED GFR I S NOT APPLICABLE FOR DIALYSIS PATIEN TS. Stitcher Hand ID - BSPOCT-GLUCOSE [id number] 18:15:00 Test Item Value Reference Range Interpretation Comments POC-GLUCOSE METER 91 mg/dL 70-110 : TESTED A T [facility] 6720 ([facility]) (test code = [facility], 1538) 56274: Stitcher Hand/Techni ebenezer ID = [id number] for HIDA LGO, AGLAE RAD, KNEE, 3 VIEWS, [id number] 12:52:00Reason for exam:->left [facility] : 1970 Sex: MFINAL REPORT RAD, KNEE, 3 VIEWS, LEFT CLINICAL INDICATION: left knee pain COMPARISON: None FINDINGS: Frontal, oblique and lateral views of the left knee. There is no fracture or malalignment. The femorotibial and femoropatellar joint spaces are intact. No joint fluid is demonstrated. Surrounding soft tissues are unremarkable. IMPRESSION: No acute traumatic osseous abnormality of the left knee. Signed: JR Julia, Annette Enriquez Verified Date/Time: 04/16/2021 12:52:53 Reading Location: [facility] Radiology Reading Room POCT- GLUCOSE [id number] 12:39:00 Test Item Value Reference Range Interpretation Comments POC-GLUCOSE METER 136 mg/dL 70-110 H : TESTED A T [facility] 6720 (BEAKER) (test code = [facility], 1538) 92445: Stitcher Hand/Techni ebenezer ID = [id number] for PAIGE YU POCT-GLUCOSE [id number] 08:19:00 Test Item Value Reference Range Interpretation Comments POC-GLUCOSE METER 134 mg/dL 70-110 H : TESTED A T [facility] 6720 (BEAKER) (test code = [facility], 1538) 89025: Stitcher Hand/Techni ebenezer ID = [id number] for PAIGE YU BASIC METABOLIC [id number] 06:22:00 Test Item Value Reference Range Interpretation Comments SODIUM (BEAKER) 131 meq/L 136-145 L (test code = 381) POTASSIUM (BEAKER) 3.7 meq/L 3.5-5.1 (test code = 379) CHLORIDE (BEAKER) 91 meq/L 98-107 L (test code = 382) CO2 (BEAKER) (test 26 meq/L 22-29 code = 355) BLOOD UREA NITROGEN 38 mg/dL 7-21 H (BEAKER) (test code = 354) CREATININE (BEAKER) 1.41 mg/dL 0.57-1.25 H (test code = 358) GLUCOSE RANDOM 108 mg/dL 70-105 H (BEAKER) (test code = 652) CALCIUM (BEAKER) 9.0 mg/dL 8.4-10.2 (test code = 697) EGFR (BEAKER) (test 53 mL/min/1.73 ESTIMA NEELA GFR IS code = 1092) sq m NOT ACCURATE CREATININE CLEARANCE IN PREDICTING GLOMERULAR FILTRATION RATE . ESTIMATED GFR I S NOT APPLICABLE FOR DIALYSIS PATIEN TS. Stitcher Hand ID - SO [id number] 06:22:00 Test Item Value Reference Range Interpretation Comments MAGNESIUM (BEAKER) (test code = 2.0 mg/dL 1.6-2.6 627) Stitcher Hand ID Sal RIZZO MCBC (HEMOGRAM ONLY)2021-04-16 05:38:00 Test Item Value Reference Range Interpretation Comments WHITE BLOOD CELL COUNT (BEAKER) 8.4 K/ L 3.5-10.5 (test code = 775) RED BLOOD CELL COUNT (BEAKER) 3.18 M/ L 4.63-6.08 L (test code = 761) HEMOGLOBIN (BEAKER) (test code = 9.2 GM/DL 13.7-17.5 L 410) HEMATOCRIT (BEAKER) (test code = 29.3 % 40.1-51.0 L 411) MEAN CORPUSCULAR VOLUME (BEAKER) 92.1 fL 79.0-92.2 (test code = 753) MEAN CORPUSCULAR HEMOGLOBIN 28.9 pg 25.7-32.2 (BEAKER) (test code = 751) MEAN CORPUSCULAR HEMOGLOBIN CONC 31.4 GM/DL 32.3-36.5 L (BEAKER) (test code = 752) RED CELL DISTRIBUTION WIDTH 16.3 % 11.6-14.4 H (BEAKER) (test code = 412) PLATELET COUNT (BEAKER) (test 249 K/CU MM 150-450 code = 756) MEAN PLATELET VOLUME (BEAKER) 9.5 fL 9.4-12.4 (test code = 754) NUCLEATED RED BLOOD CELLS 0 /100 WBC 0-0 (BEAKER) (test code = 413) POCT-GLUCOSE [id number] 22:09:00 Test Item Value Reference Range Interpretation Comments POC-GLUCOSE METER 115 mg/dL 70-110 H : TESTED A T [facility] 6720 (BEAKER) (test code = [place], 1538) 09757: Stitcher Hand/Techni ebenezer ID = [id number] for Anushka Chambers POCT-GLUCOSE [id number] 22:09:00 Test Item Value Reference Range Interpretation Comments POC-GLUCOSE METER 123 mg/dL 70-110 H : TESTED A T [facility] 6720 (BEAKER) (test code = [place], 1538) [id number]: Stitcher Hand/Techni ebenezer ID = [id number] for Re Anushka oliver BASIC METABOLIC [id number] 17:16:00 Test Item Value Reference Range Interpretation Comments SODIUM (BEAKER) 132 meq/L 136-145 L (test code = 381) POTASSIUM (BEAKER) 4.0 meq/L 3.5-5.1 (test code = 379) CHLORIDE (BEAKER) 93 meq/L 98-107 L (test code = 382) CO2 (BEAKER) (test 28 meq/L 22-29 code = 355) BLOOD UREA NITROGEN 37 mg/dL 7-21 H (BEAKER) (test code = 354) CREATININE (BEAKER) 1.75 mg/dL 0.57-1.25 H (test code = 358) GLUCOSE RANDOM 94 mg/dL 70-105 (BEAKER) (test code = 652) CALCIUM (BEAKER) 8.9 mg/dL 8.4-10.2 (test code = 697) EGFR (BEAKER) (test 41 mL/min/1.73 ESTIMA NEELA GFR IS code = 1092) sq m NOT ACCURATE CREATININE CLEARANCE IN PREDICTING GLOMERULAR FILTRATION RATE . ESTIMATED GFR I S NOT APPLICABLE FOR DIALYSIS PATIEN TS. Stitcher Hand ID - [id number], SHOULDER, COMPLETE (MIN 2 VIEWS), [id number] 15:45:00 Reason for exam:->shoulder pain, inability to abduct [facility] DA[facility] WEST : 1970 Sex: MFINAL REPORT EXAMINATION: RAD, SHOULDER, COMPLETE (MIN 2 VIEWS), LEFT INDICATION: Shoulder pain COMPARISON: None FINDINGS: Radiographs of the left shoulder demonstrate no acute fracture or dislocation. Alignment is anatomic. Partially visualized left chest pacemaker. No focal consolidation of the partially visualized left lung. Unremarkable soft tissues. IMPRESSION: No acute osseous injury Signed: Danielle Garber MDReport Verified Date/Time: 04/15/2021 15:45:52 BASIC METABOLIC [id number] 05:41:00 Test Item Value Reference Range Interpretation Comments SODIUM (BEAKER) 133 meq/L 136-145 L (test code = 381) POTASSIUM (BEAKER) 4.1 meq/L 3.5-5.1 (test code = 379) CHLORIDE (BEAKER) 92 meq/L 98-107 L (test code = 382) CO2 (BEAKER) (test 27 meq/L 22-29 code = 355) BLOOD UREA NITROGEN 34 mg/dL 7-21 H (BEAKER) (test code = 354) CREATININE (BEAKER) 1.45 mg/dL 0.57-1.25 H (test code = 358) GLUCOSE RANDOM 109 mg/dL 70-105 H (BEAKER) (test code = 652) CALCIUM (BEAKER) 9.1 mg/dL 8.4-10.2 (test code = 697) EGFR (BEAKER) (test 52 mL/min/1.73 ESTIMA NEELA GFR IS code = 1092) sq m NOT ACCURATE CREATININE CLEARANCE IN PREDICTING GLOMERULAR FILTRATION RATE . ESTIMATED GFR I S NOT APPLICABLE FOR DIALYSIS PATIEN TS. Stitcher Hand ID - SO [id number] 05:41:00 Test Item Value Reference Range Interpretation Comments MAGNESIUM (BEAKER) (test code = 1.8 mg/dL 1.6-2.6 627) Stitcher Hand ID - SO [facility] (HEMOGRAM ONLY)[id number] 05:04:00 Test Item Value Reference Range Interpretation Comments WHITE BLOOD CELL COUNT (BEAKER) 8.8 K/ L 3.5-10.5 (test code = 775) RED BLOOD CELL COUNT (BEAKER) 3.17 M/ L 4.63-6.08 L (test code = 761) HEMOGLOBIN (BEAKER) (test code = 9.3 GM/DL 13.7-17.5 L 410) HEMATOCRIT (BEAKER) (test code = 29.1 % 40.1-51.0 L 411) MEAN CORPUSCULAR VOLUME (BEAKER) 91.8 fL 79.0-92.2 (test code = 753) MEAN CORPUSCULAR HEMOGLOBIN 29.3 pg 25.7-32.2 (BEAKER) (test code = 751) MEAN CORPUSCULAR HEMOGLOBIN CONC 32.0 GM/DL 32.3-36.5 L (BEAKER) (test code = 752) RED CELL DISTRIBUTION WIDTH 15.9 % 11.6-14.4 H (BEAKER) (test code = 412) PLATELET COUNT (BEAKER) (test 244 K/CU MM 150-450 code = 756) MEAN PLATELET VOLUME (BEAKER) 9.6 fL 9.4-12.4 (test code = 754) NUCLEATED RED BLOOD CELLS 0 /100 WBC 0-0 (BEAKER) (test code = 413) POCT-GLUCOSE [id number] 08:33:00 Test Item Value Reference Range Interpretation Comments POC-GLUCOSE METER 109 mg/dL 70-110 : TESTED A T [facility] 67[facility] (BEAKER) (test code = [facility], 1538) [id number]: Stitcher Hand/Techni ebenezer ID = [id number] for RAGINI MERCER BASIC METABOLIC [id number] 06:38:00 Test Item Value Reference Range Interpretation Comments SODIUM (BEAKER) 134 meq/L 136-145 L (test code = 381) POTASSIUM (BEAKER) 3.7 meq/L 3.5-5.1 (test code = 379) CHLORIDE (BEAKER) 93 meq/L 98-107 L (test code = 382) CO2 (BEAKER) (test 28 meq/L 22-29 code = 355) BLOOD UREA NITROGEN 29 mg/dL 7-21 H (BEAKER) (test code = 354) CREATININE (BEAKER) 1.20 mg/dL 0.57-1.25 (test code = 358) GLUCOSE RANDOM 110 mg/dL 70-105 H (BEAKER) (test code = 652) CALCIUM (BEAKER) 9.1 mg/dL 8.4-10.2 (test code = 697) EGFR (BEAKER) (test 64 mL/min/1.73 ESTIMA NEELA GFR IS code = 1092) sq m NOT ACCURATE CREATININE CLEARANCE IN PREDICTING GLOMERULAR FILTRATION RATE . ESTIMATED GFR I S NOT APPLICABLE FOR DIALYSIS PATIEN TS. Stitcher Hand ID - FAUZIA [id number] 06:38:00 Test Item Value Reference Range Interpretation Comments MAGNESIUM (BEAKER) (test code = 1.8 mg/dL 1.6-2.6 627) Stitcher Hand ID - FAUZIA WCBC (HEMOGRAM ONLY)2021-04-14 06:08:00 Test Item Value Reference Range Interpretation Comments WHITE BLOOD CELL COUNT (BEAKER) 7.8 K/ L 3.5-10.5 (test code = 775) RED BLOOD CELL COUNT (BEAKER) 3.13 M/ L 4.63-6.08 L (test code = 761) HEMOGLOBIN (BEAKER) (test code = 9.0 GM/DL 13.7-17.5 L 410) HEMATOCRIT (BEAKER) (test code = 28.8 % 40.1-51.0 L 411) MEAN CORPUSCULAR VOLUME (BEAKER) 92.0 fL 79.0-92.2 (test code = 753) MEAN CORPUSCULAR HEMOGLOBIN 28.8 pg 25.7-32.2 (BEAKER) (test code = 751) MEAN CORPUSCULAR HEMOGLOBIN CONC 31.3 GM/DL 32.3-36.5 L (BEAKER) (test code = 752) RED CELL DISTRIBUTION WIDTH 16.2 % 11.6-14.4 H (BEAKER) (test code = 412) PLATELET COUNT (BEAKER) (test 232 K/CU MM 150-450 code = 756) MEAN PLATELET VOLUME (BEAKER) 9.3 fL 9.4-12.4 L (test code = 754) NUCLEATED RED BLOOD CELLS 0 /100 WBC 0-0 (BEAKER) (test code = 413) CT, EXTREMITY, LOWER WITHOUT CONTRAST, [id number] 02:28:00Unlisted Reason for Exam - Click Yes and Enter Reason Below->YesUnlisted Reason for Exam->sudden left lateral thigh pain [facility] : 1970 Sex: MFINAL REPORT CT, EXTREMITY, LOWER WITHOUT CONTRAST, LEFT INDICATION: Upper leg pain,stress fracture suspected, initial examsudden left lateral thigh pain COMPARISON: None TECHNIQUE: CTof the left lower extremity from level of the iliac crest through to the proximal tibial metaphysis.Sagittal and coronal reformats were obtained. No intravascular contrast was administered DOSE REDUCTI ON: Dose modulation, iterative reconstruction, and/or weight-based adjustment of the mA/kV was utilized to reduce the radiation dose to as low as reasonably achievable. FINDINGS:No acute fracture or dislocation of the left hip or left knee. The left femur is intact. Included pelvis is intact. Partially imaged proximal left tibia and fibula are unremarkable. Moderate tricompartmental degenerative changes of the left knee with joint space loss and marginal osteophytosis greatest at the patellofemoral compartment. There is a small left knee joint effusion. Left hip joint space is unremarkable. Cystic structure interpositioned between the medial head of the gastrocnemius and semimembranosus tendon consistent with a Fisher's cyst has measurements of 3.8 x 1.9 x 6.2 cm. Otherwise, no significant soft tissue finding. No swelling or soft tissue hematoma. Included pelvic structures including bladder and prostate are unremarkable. No bowel wall thickening or distention. IMPRESSION: 1. No acute bone abnormality on CT of the left lower extremity. 2. Small left knee joint effusion with moderate tricompartmental degenerative changes. 3. Fisher's cyst. Signed: Herb Zuleta MDReport Verified Date/Time: 04/14/2021 02:28:11 BASIC METABOLIC [id number] 17:31:00 Test Item Value Reference Range Interpretation Comments SODIUM (BEAKER) 135 meq/L 136-145 L (test code = 381) POTASSIUM (BEAKER) 3.7 meq/L 3.5-5.1 (test code = 379) CHLORIDE (BEAKER) 92 meq/L 98-107 L (test code = 382) CO2 (BEAKER) (test 31 meq/L 22-29 H code = 355) BLOOD UREA NITROGEN 25 mg/dL 7-21 H (BEAKER) (test code = 354) CREATININE (BEAKER) 1.22 mg/dL 0.57-1.25 (test code = 358) GLUCOSE RANDOM 96 mg/dL 70-105 (BEAKER) (test code = 652) CALCIUM (BEAKER) 8.7 mg/dL 8.4-10.2 (test code = 697) EGFR (BEAKER) (test 63 mL/min/1.73 ESTIMA NEELA GFR IS code = 1092) sq m NOT ACCURATE CREATININE CLEARANCE IN PREDICTING GLOMERULAR FILTRATION RATE . ESTIMATED GFR I S NOT APPLICABLE FOR DIALYSIS PATIEN TS. Stitcher Hand ID - DBPOCT-GLUCOSE [id number] 16:14:00 Test Item Value Reference Range Interpretation Comments POC-GLUCOSE METER 132 mg/dL 70-110 H : TESTED A T [facility] 6720 (BEAKER) (test code = [facility], 1538) 894[address]: Stitcher Hand/Techni ebenezer ID = [id number] for LING NNY, MARY CARMEN POCT-GLUCOSE [id number] 12:39:00 Test Item Value Reference Range Interpretation Comments POC-GLUCOSE METER 124 mg/dL 70-110 H : TESTED A T [facility] 6720 (BEAKER) (test code = [facility], 1538) 89789: Stitcher Hand/Techni ebenezer ID = [id number] for LING NNY, MARY CARMEN POCT-GLUCOSE [id number] 08:00:00 Test Item Value Reference Range Interpretation Comments POC-GLUCOSE METER 155 mg/dL 70-110 H : TESTED A T [facility] 6720 (BEAKER) (test code = [facility], 1538) 92594: Stitcher Hand/Techni ebenezer ID = [id number] for LING NNY, MARY CARMEN BASIC METABOLIC [id number] 07:24:00 Test Item Value Reference Range Interpretation Comments SODIUM (BEAKER) 135 meq/L 136-145 L (test code = 381) POTASSIUM (BEAKER) 3.1 meq/L 3.5-5.1 L (test code = 379) CHLORIDE (BEAKER) 93 meq/L 98-107 L (test code = 382) CO2 (BEAKER) (test 29 meq/L 22-29 code = 355) BLOOD UREA NITROGEN 28 mg/dL 7-21 H (BEAKER) (test code = 354) CREATININE (BEAKER) 1.18 mg/dL 0.57-1.25 (test code = 358) GLUCOSE RANDOM 114 mg/dL 70-105 H (BEAKER) (test code = 652) CALCIUM (BEAKER) 8.5 mg/dL 8.4-10.2 (test code = 697) EGFR (BEAKER) (test 65 mL/min/1.73 ESTIMA NEELA GFR IS code = 1092) sq m NOT ACCURATE CREATININE CLEARANCE IN PREDICTING GLOMERULAR FILTRATION RATE . ESTIMATED GFR I S NOT APPLICABLE FOR DIALYSIS PATIEN TS. Stitcher Hand JESSICA HUGHES [id number] 07:24:00 Test Item Value Reference Range Interpretation Comments MAGNESIUM (BEAKER) (test code = 1.5 mg/dL 1.6-2.6 L 627) Stitcher Hand JESSICA Sal HUGHES WCBC (HEMOGRAM ONLY)2021-04-13 06:08:00 Test Item Value Reference Range Interpretation Comments WHITE BLOOD CELL COUNT (BEAKER) 8.2 K/ L 3.5-10.5 (test code = 775) RED BLOOD CELL COUNT (BEAKER) 2.94 M/ L 4.63-6.08 L (test code = 761) HEMOGLOBIN (BEAKER) (test code = 8.4 GM/DL 13.7-17.5 L 410) HEMATOCRIT (BEAKER) (test code = 27.2 % 40.1-51.0 L 411) MEAN CORPUSCULAR VOLUME (BEAKER) 92.5 fL 79.0-92.2 H (test code = 753) MEAN CORPUSCULAR HEMOGLOBIN 28.6 pg 25.7-32.2 (BEAKER) (test code = 751) MEAN CORPUSCULAR HEMOGLOBIN CONC 30.9 GM/DL 32.3-36.5 L (BEAKER) (test code = 752) RED CELL DISTRIBUTION WIDTH 15.9 % 11.6-14.4 H (BEAKER) (test code = 412) PLATELET COUNT (BEAKER) (test 225 K/CU MM 150-450 code = 756) MEAN PLATELET VOLUME (BEAKER) 9.6 fL 9.4-12.4 (test code = 754) NUCLEATED RED BLOOD CELLS 0 /100 WBC 0-0 (BEAKER) (test code = 413) POCT-GLUCOSE [id number] 22:45:00 Test Item Value Reference Range Interpretation Comments POC-GLUCOSE METER 107 mg/dL 70-110 : TESTED A T [facility] 6720 (BEAKER) (test code = [facility] [place], 1538) [address]: Stitcher Hand/Techni ebenezer ID = [id number] for SHELDON MANCIA BASIC METABOLIC [id number] 18:17:00 Test Item Value Reference Range Interpretation Comments SODIUM (BEAKER) 135 meq/L 136-145 L (test code = 381) POTASSIUM (BEAKER) 3.5 meq/L 3.5-5.1 (test code = 379) CHLORIDE (BEAKER) 94 meq/L 98-107 L (test code = 382) CO2 (BEAKER) (test 29 meq/L 22-29 code = 355) BLOOD UREA NITROGEN 27 mg/dL 7-21 H (BEAKER) (test code = 354) CREATININE (BEAKER) 1.21 mg/dL 0.57-1.25 (test code = 358) GLUCOSE RANDOM 121 mg/dL 70-105 H (BEAKER) (test code = 652) CALCIUM (BEAKER) 8.9 mg/dL 8.4-10.2 (test code = 697) EGFR (BEAKER) (test 63 mL/min/1.73 ESTIMA NEELA GFR IS code = 1092) sq m NOT ACCURATE CREATININE CLEARANCE IN PREDICTING GLOMERULAR FILTRATION RATE . ESTIMATED GFR I S NOT APPLICABLE FOR DIALYSIS PATIEN TS. Stitcher Hand ID - [id number] 14:54:00 Test Item Value Reference Range Interpretation Comments POTASSIUM (BEAKER) (test code = 3.4 meq/L 3.5-5.1 L 379) Stitcher Hand ID - DBBASIC METABOLIC [id number] 10:38:00 Test Item Value Reference Range Interpretation Comments SODIUM (BEAKER) 131 meq/L 136-145 L (test code = 381) POTASSIUM (BEAKER) 3.6 meq/L 3.5-5.1 (test code = 379) CHLORIDE (BEAKER) 93 meq/L 98-107 L (test code = 382) CO2 (BEAKER) (test 30 meq/L 22-29 H code = 355) BLOOD UREA NITROGEN 26 mg/dL 7-21 H (BEAKER) (test code = 354) CREATININE (BEAKER) 1.21 mg/dL 0.57-1.25 (test code = 358) GLUCOSE RANDOM 110 mg/dL 70-105 H (BEAKER) (test code = 652) CALCIUM (BEAKER) 8.8 mg/dL 8.4-10.2 (test code = 697) EGFR (BEAKER) (test 63 mL/min/1.73 ESTIMA NEELA GFR IS code = 1092) sq m NOT ACCURATE CREATININE CLEARANCE IN PREDICTING GLOMERULAR FILTRATION RATE . ESTIMATED GFR I S NOT APPLICABLE FOR DIALYSIS PATIEN TS. Stitcher Hand ID - SO MBASIC METABOLIC [id number] 06:12:00 Test Item Value Reference Range Interpretation Comments SODIUM (BEAKER) 131 meq/L 136-145 L (test code = 381) POTASSIUM (BEAKER) 3.5 meq/L 3.5-5.1 (test code = 379) CHLORIDE (BEAKER) 92 meq/L 98-107 L (test code = 382) CO2 (BEAKER) (test 27 meq/L 22-29 code = 355) BLOOD UREA NITROGEN 27 mg/dL 7-21 H (BEAKER) (test code = 354) CREATININE (BEAKER) 1.17 mg/dL 0.57-1.25 (test code = 358) GLUCOSE RANDOM 242 mg/dL 70-105 H (BEAKER) (test code = 652) CALCIUM (BEAKER) 8.7 mg/dL 8.4-10.2 (test code = 697) EGFR (BEAKER) (test 66 mL/min/1.73 ESTIMA NEELA GFR IS code = 1092) sq m NOT ACCURATE CREATININE CLEARANCE IN PREDICTING GLOMERULAR FILTRATION RATE . ESTIMATED GFR I S NOT APPLICABLE FOR DIALYSIS PATIEN TS. Stitcher Hand ID - EDASIBASIC METABOLIC [id number] 23:16:00 Test Item Value Reference Range Interpretation Comments SODIUM (BEAKER) 126 meq/L 136-145 L (test code = 381) POTASSIUM (BEAKER) 3.2 meq/L 3.5-5.1 L (test code = 379) CHLORIDE (BEAKER) 89 meq/L 98-107 L (test code = 382) CO2 (BEAKER) (test 27 meq/L 22-29 code = 355) BLOOD UREA NITROGEN 26 mg/dL 7-21 H (BEAKER) (test code = 354) CREATININE (BEAKER) 1.31 mg/dL 0.57-1.25 H (test code = 358) GLUCOSE RANDOM 273 mg/dL 70-105 H (BEAKER) (test code = 652) CALCIUM (BEAKER) 8.3 mg/dL 8.4-10.2 L (test code = 697) EGFR (BEAKER) (test 58 mL/min/1.73 ESTIMA NEELA GFR IS code = 1092) sq m NOT ACCURATE CREATININE CLEARANCE IN PREDICTING GLOMERULAR FILTRATION RATE . ESTIMATED GFR I S NOT APPLICABLE FOR DIALYSIS PATIEN TS. Stitcher Hand ID - BSBASIC METABOLIC [id number] 18:07:00 Test Item Value Reference Range Interpretation Comments SODIUM (BEAKER) 126 meq/L 136-145 L (test code = 381) POTASSIUM (BEAKER) 2.8 meq/L 3.5-5.1 L (test code = 379) CHLORIDE (BEAKER) 89 meq/L 98-107 L (test code = 382) CO2 (BEAKER) (test 28 meq/L 22-29 code = 355) BLOOD UREA NITROGEN 20 mg/dL 7-21 (BEAKER) (test code = 354) CREATININE (BEAKER) 1.02 mg/dL 0.57-1.25 (test code = 358) GLUCOSE RANDOM 259 mg/dL 70-105 H (BEAKER) (test code = 652) CALCIUM (BEAKER) 8.1 mg/dL 8.4-10.2 L (test code = 697) EGFR (BEAKER) (test 77 mL/min/1.73 ESTIMA NEELA GFR IS code = 1092) sq m NOT ACCURATE CREATININE CLEARANCE IN PREDICTING GLOMERULAR FILTRATION RATE . ESTIMATED GFR I S NOT APPLICABLE FOR DIALYSIS PATIEN TS. Stitcher Hand ID - BSPOCT-GLUCOSE [id number] 15:18:00 Test Item Value Reference Range Interpretation Comments POC-GLUCOSE METER 144 mg/dL 70-110 H : TESTED A T [facility] 6720 (BEAKER) (test code = [facility], 1538) [address]: Stitcher Hand/Techni ebenezer ID = [id number] for Vi ce (contract), Heather tovar BASIC METABOLIC [id number] 11:43:00 Test Item Value Reference Range Interpretation Comments SODIUM (BEAKER) 127 meq/L 136-145 L (test code = 381) POTASSIUM (BEAKER) 3.3 meq/L 3.5-5.1 L (test code = 379) CHLORIDE (BEAKER) 89 meq/L 98-107 L (test code = 382) CO2 (BEAKER) (test 29 meq/L 22-29 code = 355) BLOOD UREA NITROGEN 21 mg/dL 7-21 (BEAKER) (test code = 354) CREATININE (BEAKER) 0.98 mg/dL 0.57-1.25 (test code = 358) GLUCOSE RANDOM 221 mg/dL 70-105 H (BEAKER) (test code = 652) CALCIUM (BEAKER) 8.3 mg/dL 8.4-10.2 L (test code = 697) EGFR (BEAKER) (test 81 mL/min/1.73 ESTIMA NEELA GFR IS code = 1092) sq m NOT ACCURATE CREATININE CLEARANCE IN PREDICTING GLOMERULAR FILTRATION RATE . ESTIMATED GFR I S NOT APPLICABLE FOR DIALYSIS PATIEN TS. Stitcher Hand ID - PIAYA LPOCT-GLUCOSE [id number] 11:25:00 Test Item Value Reference Range Interpretation Comments POC-GLUCOSE METER 106 mg/dL 70-110 : TESTED A T [facility] 6720 (BEAKER) (test code = [facility], 1538) 39490: Stitcher Hand/Techni ebenezer ID = [id number] for Chauncey (contract), Heather tovar POCT-GLUCOSE [id number] 07:19:00 Test Item Value Reference Range Interpretation Comments POC-GLUCOSE METER 121 mg/dL 70-110 H : TESTED A T [facility] 6720 (BEAKER) (test code = [facility], 1538) 52011: Stitcher Hand/Techni ebenezer ID = [id number] for January BASIC METABOLIC [id number] 05:43:00 Test Item Value Reference Range Interpretation Comments SODIUM (BEAKER) 133 meq/L 136-145 L (test code = 381) POTASSIUM (BEAKER) 3.5 meq/L 3.5-5.1 (test code = 379) CHLORIDE (BEAKER) 93 meq/L 98-107 L (test code = 382) CO2 (BEAKER) (test 30 meq/L 22-29 H code = 355) BLOOD UREA NITROGEN 25 mg/dL 7-21 H (BEAKER) (test code = 354) CREATININE (BEAKER) 1.05 mg/dL 0.57-1.25 (test code = 358) GLUCOSE RANDOM 239 mg/dL 70-105 H (BEAKER) (test code = 652) CALCIUM (BEAKER) 8.3 mg/dL 8.4-10.2 L (test code = 697) EGFR (BEAKER) (test 75 mL/min/1.73 ESTIMA NEELA GFR IS code = 1092) sq m NOT ACCURATE CREATININE CLEARANCE IN PREDICTING GLOMERULAR FILTRATION RATE . ESTIMATED GFR I S NOT APPLICABLE FOR DIALYSIS PATIEN TS. Stitcher Hand ID - ADMINBASIC METABOLIC [id number] 23:56:00 Test Item Value Reference Range Interpretation Comments SODIUM (BEAKER) 128 meq/L 136-145 L (test code = 381) POTASSIUM (BEAKER) 3.2 meq/L 3.5-5.1 L Specimen slightly (test code = 379) hemolyzed CHLORIDE (BEAKER) 90 meq/L 98-107 L (test code = 382) CO2 (BEAKER) (test 30 meq/L 22-29 H code = 355) BLOOD UREA NITROGEN 27 mg/dL 7-21 H (BEAKER) (test code = 354) CREATININE (BEAKER) 1.09 mg/dL 0.57-1.25 Specimen slightly (test code = 358) hemolyzed GLUCOSE RANDOM 198 mg/dL 70-105 H (BEAKER) (test code = 652) CALCIUM (BEAKER) 8.3 mg/dL 8.4-10.2 L (test code = 697) EGFR (BEAKER) (test 72 mL/min/1.73 ESTIMA NEELA GFR IS code = 1092) sq m NOT ACCURATE CREATININE CLEARANCE IN PREDICTING GLOMERULAR FILTRATION RATE . ESTIMATED GFR I S NOT APPLICABLE FOR DIALYSIS PATIEN TS. Stitcher Hand ID - AUNDREAAYA LPOCT-GLUCOSE [id number] 22:03:00 Test Item Value Reference Range Interpretation Comments POC-GLUCOSE METER 123 mg/dL 70-110 H : [facility] (BEAKER) (test code = [facility], 1538) 237[address]: Stitcher Hand/Techni ebenezer ID = [id number] for DO DE LA GARZAJanuary BASIC METABOLIC [id number] 17:52:00 Test Item Value Reference Range Interpretation Comments SODIUM (BEAKER) 128 meq/L 136-145 L (test code = 381) POTASSIUM (BEAKER) 3.2 meq/L 3.5-5.1 L (test code = 379) CHLORIDE (BEAKER) 89 meq/L 98-107 L (test code = 382) CO2 (BEAKER) (test 28 meq/L 22-29 code = 355) BLOOD UREA NITROGEN 32 mg/dL 7-21 H (BEAKER) (test code = 354) CREATININE (BEAKER) 1.16 mg/dL 0.57-1.25 (test code = 358) GLUCOSE RANDOM 246 mg/dL 70-105 H (BEAKER) (test code = 652) CALCIUM (BEAKER) 8.4 mg/dL 8.4-10.2 (test code = 697) EGFR (BEAKER) (test 67 mL/min/1.73 ESTIMA NEELA GFR IS code = 1092) sq m NOT ACCURATE CREATININE CLEARANCE IN PREDICTING GLOMERULAR FILTRATION RATE . ESTIMATED GFR I S NOT APPLICABLE FOR DIALYSIS PATIEN TS. Stitcher Hand ID - EMERSONPOCT-GLUCOSE [id number] 11:42:00 Test Item Value Reference Range Interpretation Comments POC-GLUCOSE METER 145 mg/dL 70-110 H : TESTED A T [facility] 6720 (BEAKER) (test code = [facility], 1538) 654[address]: Stitcher Hand/Techni ebenezer ID = [id number] for Chauncey johnson (contract)Heather BASIC METABOLIC [id number] 11:21:00 Test Item Value Reference Range Interpretation Comments SODIUM (BEAKER) 125 meq/L 136-145 L (test code = 381) POTASSIUM (BEAKER) 3.3 meq/L 3.5-5.1 L (test code = 379) CHLORIDE (BEAKER) 87 meq/L 98-107 L (test code = 382) CO2 (BEAKER) (test 29 meq/L 22-29 code = 355) BLOOD UREA NITROGEN 32 mg/dL 7-21 H (BEAKER) (test code = 354) CREATININE (BEAKER) 1.16 mg/dL 0.57-1.25 (test code = 358) GLUCOSE RANDOM 284 mg/dL 70-105 H (BEAKER) (test code = 652) CALCIUM (BEAKER) 8.0 mg/dL 8.4-10.2 L (test code = 697) EGFR (BEAKER) (test 67 mL/min/1.73 ESTIMA NEELA GFR IS code = 1092) sq m NOT ACCURATE CREATININE CLEARANCE IN PREDICTING GLOMERULAR FILTRATION RATE . ESTIMATED GFR I S NOT APPLICABLE FOR DIALYSIS PATIEN TS. Stitcher Hand ID - GABRIELEOXYGEN SATURATION, [id number] 10:57:00 Test Item Value Reference Range Interpretation Comments O2 SATURATION (MEASURED) (BEAKER) 68.3 % (test code = 1455) BASIC METABOLIC [id number] 04:26:00 Test Item Value Reference Range Interpretation Comments SODIUM (BEAKER) 129 meq/L 136-145 L (test code = 381) POTASSIUM (BEAKER) 3.4 meq/L 3.5-5.1 L (test code = 379) CHLORIDE (BEAKER) 89 meq/L 98-107 L (test code = 382) CO2 (BEAKER) (test 28 meq/L 22-29 code = 355) BLOOD UREA NITROGEN 37 mg/dL 7-21 H (BEAKER) (test code = 354) CREATININE (BEAKER) 1.35 mg/dL 0.57-1.25 H (test code = 358) GLUCOSE RANDOM 226 mg/dL 70-105 H (BEAKER) (test code = 652) CALCIUM (BEAKER) 8.6 mg/dL 8.4-10.2 (test code = 697) EGFR (BEAKER) (test 56 mL/min/1.73 ESTIMA NEELA GFR IS code = 1092) sq m NOT ACCURATE CREATININE CLEARANCE IN PREDICTING GLOMERULAR FILTRATION RATE . ESTIMATED GFR I S NOT APPLICABLE FOR DIALYSIS PATIEN TS. Stitcher Hand ID - SOCO [id number] 04:26:00 Test Item Value Reference Range Interpretation Comments PHOSPHORUS (BEAKER) (test code = 3.4 mg/dL 2.3-4.7 604) Stitcher Hand ID - SOCO [id number] 04:25:00 Test Item Value Reference Range Interpretation Comments MAGNESIUM (BEAKER) (test code = 2.1 mg/dL 1.6-2.6 627) Stitcher Hand ID - SOCO RUTHERFORDOCT-GLUCOSE [id number] 22:31:00 Test Item Value Reference Range Interpretation Comments POC-GLUCOSE METER 129 mg/dL 70-110 H : TESTED A T [facility]20 (BEAKER) (test code = [place], 1538) 709[address]: Stitcher Hand/Techni ebenezer ID = [id number] for January BASIC METABOLIC [id number] 21:34:00 Test Item Value Reference Range Interpretation Comments SODIUM (BEAKER) 127 meq/L 136-145 L (test code = 381) POTASSIUM (BEAKER) 3.0 meq/L 3.5-5.1 L (test code = 379) CHLORIDE (BEAKER) 88 meq/L 98-107 L (test code = 382) CO2 (BEAKER) (test 27 meq/L 22-29 code = 355) BLOOD UREA NITROGEN 43 mg/dL 7-21 H (BEAKER) (test code = 354) CREATININE (BEAKER) 1.59 mg/dL 0.57-1.25 H (test code = 358) GLUCOSE RANDOM 237 mg/dL 70-105 H (BEAKER) (test code = 652) CALCIUM (BEAKER) 8.3 mg/dL 8.4-10.2 L (test code = 697) EGFR (BEAKER) (test 46 mL/min/1.73 ESTIMA NEELA GFR IS code = 1092) sq m NOT ACCURATE CREATININE CLEARANCE IN PREDICTING GLOMERULAR FILTRATION RATE . ESTIMATED GFR I S NOT APPLICABLE FOR DIALYSIS PATIEN TS. Stitcher Hand ID - [id number] 21:34:00 Test Item Value Reference Range Interpretation Comments MAGNESIUM (BEAKER) (test code = 2.0 mg/dL 1.6-2.6 627) Stitcher Hand ID - [id number] 21:34:00 Test Item Value Reference Range Interpretation Comments PHOSPHORUS (BEAKER) (test code = 3.3 mg/dL 2.3-4.7 604) Stitcher Hand ID - BSBASIC METABOLIC [id number] 18:12:00 Test Item Value Reference Range Interpretation Comments SODIUM (BEAKER) 129 meq/L 136-145 L (test code = 381) POTASSIUM (BEAKER) 3.4 meq/L 3.5-5.1 L (test code = 379) CHLORIDE (BEAKER) 90 meq/L 98-107 L (test code = 382) CO2 (BEAKER) (test 27 meq/L 22-29 code = 355) BLOOD UREA NITROGEN 47 mg/dL 7-21 H (BEAKER) (test code = 354) CREATININE (BEAKER) 1.69 mg/dL 0.57-1.25 H (test code = 358) GLUCOSE RANDOM 222 mg/dL 70-105 H (BEAKER) (test code = 652) CALCIUM (BEAKER) 8.4 mg/dL 8.4-10.2 (test code = 697) EGFR (BEAKER) (test 43 mL/min/1.73 ESTIMA NEELA GFR IS code = 1092) sq m NOT ACCURATE CREATININE CLEARANCE IN PREDICTING GLOMERULAR FILTRATION RATE . ESTIMATED GFR I S NOT APPLICABLE FOR DIALYSIS PATIEN TS. Stitcher Hand ID - BSBASIC METABOLIC [id number] 12:07:00 Test Item Value Reference Range Interpretation Comments SODIUM (BEAKER) 130 meq/L 136-145 L (test code = 381) POTASSIUM (BEAKER) 3.0 meq/L 3.5-5.1 L (test code = 379) CHLORIDE (BEAKER) 93 meq/L 98-107 L (test code = 382) CO2 (BEAKER) (test 27 meq/L 22-29 code = 355) BLOOD UREA NITROGEN 45 mg/dL 7-21 H (BEAKER) (test code = 354) CREATININE (BEAKER) 1.49 mg/dL 0.57-1.25 H (test code = 358) GLUCOSE RANDOM 196 mg/dL 70-105 H (BEAKER) (test code = 652) CALCIUM (BEAKER) 7.6 mg/dL 8.4-10.2 L (test code = 697) EGFR (BEAKER) (test 50 mL/min/1.73 ESTIMA NEELA GFR IS code = 1092) sq m NOT ACCURATE CREATININE CLEARANCE IN PREDICTING GLOMERULAR FILTRATION RATE . ESTIMATED GFR I S NOT APPLICABLE FOR DIALYSIS PATIEN TS. Stitcher Hand ID - EMERSONOXYGEN SATURATION, [id number] 11:38:00 Test Item Value Reference Range Interpretation Comments O2 SATURATION (MEASURED) (BEAKER) 66.7 % (test code = 1455) POCT-GLUCOSE [id number] 07:47:00 Test Item Value Reference Range Interpretation Comments POC-GLUCOSE METER 195 mg/dL 70-110 H : TESTED A T [facility] 6720 (BEAKER) (test code = [place], 1538) [id number]: Stitcher Hand/Techni ebenezer ID = [id number] for BL ACKCHELSEAWILLY [id number] 06:37:00 Test Item Value Reference Range Interpretation Comments MAGNESIUM (BEAKER) (test code = 1.9 mg/dL 1.6-2.6 627) Stitcher Hand ID Sal CAGE PhilanthropediaASIC METABOLIC [id number] 05:36:00 Test Item Value Reference Range Interpretation Comments SODIUM (BEAKER) 128 meq/L 136-145 L (test code = 381) POTASSIUM (BEAKER) 3.2 meq/L 3.5-5.1 L (test code = 379) CHLORIDE (BEAKER) 88 meq/L 98-107 L (test code = 382) CO2 (BEAKER) (test 27 meq/L 22-29 code = 355) BLOOD UREA NITROGEN 49 mg/dL 7-21 H (BEAKER) (test code = 354) CREATININE (BEAKER) 1.73 mg/dL 0.57-1.25 H (test code = 358) GLUCOSE RANDOM 234 mg/dL 70-105 H (BEAKER) (test code = 652) CALCIUM (BEAKER) 8.2 mg/dL 8.4-10.2 L (test code = 697) EGFR (BEAKER) (test 42 mL/min/1.73 ESTIMA NEELA GFR IS code = 1092) sq m NOT ACCURATE CREATININE CLEARANCE IN PREDICTING GLOMERULAR FILTRATION RATE . ESTIMATED GFR I S NOT APPLICABLE FOR DIALYSIS PATIEN TS. Stitcher Hand ID Sal CAGE [employer]anth[employer]ediaASIC METABOLIC [id number] 22:29:00 Test Item Value Reference Range Interpretation Comments SODIUM (BEAKER) 133 meq/L 136-145 L (test code = 381) POTASSIUM (BEAKER) 3.5 meq/L 3.5-5.1 (test code = 379) CHLORIDE (BEAKER) 89 meq/L 98-107 L (test code = 382) CO2 (BEAKER) (test 32 meq/L 22-29 H code = 355) BLOOD UREA NITROGEN 49 mg/dL 7-21 H (BEAKER) (test code = 354) CREATININE (BEAKER) 2.00 mg/dL 0.57-1.25 H (test code = 358) GLUCOSE RANDOM 121 mg/dL 70-105 H (BEAKER) (test code = 652) CALCIUM (BEAKER) 9.0 mg/dL 8.4-10.2 (test code = 697) EGFR (BEAKER) (test 36 mL/min/1.73 ESTIMA NEELA GFR IS code = 1092) sq m NOT ACCURATE CREATININE CLEARANCE IN PREDICTING GLOMERULAR FILTRATION RATE . ESTIMATED GFR I S NOT APPLICABLE FOR DIALYSIS PATIEN TS. Stitcher Hand ID - [id number] 22:29:00 Test Item Value Reference Range Interpretation Comments MAGNESIUM (BEAKER) (test code = 2.2 mg/dL 1.6-2.6 627) Stitcher Hand ID - [id number] 22:29:00 Test Item Value Reference Range Interpretation Comments PHOSPHORUS (BEAKER) (test code = 3.9 mg/dL 2.3-4.7 604) Stitcher Hand ID - BSCALCIUM, [id number] 22:08:00 Test Item Value Reference Range Interpretation Comments CALCIUM IONIZED (BEAKER) (test 1.08 mmol/L 1.12-1.27 L code = 698) PH, BLOOD (BEAKER) (test code = 7.40 1810) POCT-GLUCOSE [id number] 21:55:00 Test Item Value Reference Range Interpretation Comments POC-GLUCOSE METER 131 mg/dL 70-110 H : TESTED A T [facility] 6720 (BEAKER) (test code = [place] [facility], 1538) [id number]: Stitcher Hand/Techni ebenezer ID = [id number] for January POCT-GLUCOSE [id number] 16:43:00 Test Item Value Reference Range Interpretation Comments POC-GLUCOSE METER 146 mg/dL 70-110 H : TESTED A T [facility] 6720 (BEAKER) (test code = [facility] [employer] [facility], 1538) [address]: Stitcher Hand/Techni ebenezer ID = [id number] for SARITA AMAYA BASIC METABOLIC [id number] 16:38:00 Test Item Value Reference Range Interpretation Comments SODIUM (BEAKER) 132 meq/L 136-145 L (test code = 381) POTASSIUM (BEAKER) 3.2 meq/L 3.5-5.1 L (test code = 379) CHLORIDE (BEAKER) 88 meq/L 98-107 L (test code = 382) CO2 (BEAKER) (test 30 meq/L 22-29 H code = 355) BLOOD UREA NITROGEN 44 mg/dL 7-21 H (BEAKER) (test code = 354) CREATININE (BEAKER) 1.73 mg/dL 0.57-1.25 H (test code = 358) GLUCOSE RANDOM 150 mg/dL 70-105 H (BEAKER) (test code = 652) CALCIUM (BEAKER) 9.0 mg/dL 8.4-10.2 (test code = 697) EGFR (BEAKER) (test 42 mL/min/1.73 ESTIMA NEELA GFR IS code = 1092) sq m NOT ACCURATE CREATININE CLEARANCE IN PREDICTING GLOMERULAR FILTRATION RATE . ESTIMATED GFR I S NOT APPLICABLE FOR DIALYSIS PATIEN TS. Stitcher Hand ID - BSHEMOGLOBIN [id number] 14:53:00 Test Item Value Reference Range Interpretation Comments HEMOGLOBIN A1C (BEAKER) (test code = 6.2 % 4.3-6.1 H 368) BASIC METABOLIC [id number] 11:59:00 Test Item Value Reference Range Interpretation Comments SODIUM (BEAKER) 134 meq/L 136-145 L (test code = 381) POTASSIUM (BEAKER) 3.1 meq/L 3.5-5.1 L (test code = 379) CHLORIDE (BEAKER) 88 meq/L 98-107 L (test code = 382) CO2 (BEAKER) (test 34 meq/L 22-29 H code = 355) BLOOD UREA NITROGEN 39 mg/dL 7-21 H (BEAKER) (test code = 354) CREATININE (BEAKER) 1.26 mg/dL 0.57-1.25 H (test code = 358) GLUCOSE RANDOM 126 mg/dL 70-105 H (BEAKER) (test code = 652) CALCIUM (BEAKER) 9.5 mg/dL 8.4-10.2 (test code = 697) EGFR (BEAKER) (test 61 mL/min/1.73 ESTIMA NEELA GFR IS code = 1092) sq m NOT ACCURATE CREATININE CLEARANCE IN PREDICTING GLOMERULAR FILTRATION RATE . ESTIMATED GFR I S NOT APPLICABLE FOR DIALYSIS PATIEN TS. Stitcher Hand ID - SO MPOCT-GLUCOSE [id number] 11:22:00 Test Item Value Reference Range Interpretation Comments POC-GLUCOSE METER 139 mg/dL 70-110 H : TESTED A T [facility] 6720 (BEAKER) (test code = MELVINA [place], 1538) [address]: Stitcher Hand/Techni ebenezer ID = [id number] for SARITA AMAYA POCT-GLUCOSE [id number] 08:19:00 Test Item Value Reference Range Interpretation Comments POC-GLUCOSE METER 173 mg/dL 70-110 H : TESTED A T [facility] 67[address] (BEAKER) (test code = MELVINA [place], 1538) [address]: Stitcher Hand/Techni ebenezer ID = [id number] for Zeferino encarnacion ([place])Matthew BASIC METABOLIC [id number] 05:57:00 Test Item Value Reference Range Interpretation Comments SODIUM (BEAKER) 129 meq/L 136-145 L (test code = 381) POTASSIUM (BEAKER) 3.2 meq/L 3.5-5.1 L (test code = 379) CHLORIDE (BEAKER) 88 meq/L 98-107 L (test code = 382) CO2 (BEAKER) (test 29 meq/L 22-29 code = 355) BLOOD UREA NITROGEN 37 mg/dL 7-21 H (BEAKER) (test code = 354) CREATININE (BEAKER) 1.32 mg/dL 0.57-1.25 H (test code = 358) GLUCOSE RANDOM 281 mg/dL 70-105 H (BEAKER) (test code = 652) CALCIUM (BEAKER) 8.6 mg/dL 8.4-10.2 (test code = 697) EGFR (BEAKER) (test 57 mL/min/1.73 ESTIMA NEELA GFR IS code = 1092) sq m NOT ACCURATE CREATININE CLEARANCE IN PREDICTING GLOMERULAR FILTRATION RATE . ESTIMATED GFR I S NOT APPLICABLE FOR DIALYSIS PATIEN TS. Stitcher Hand ID - [id number] 05:57:00 Test Item Value Reference Range Interpretation Comments MAGNESIUM (BEAKER) (test code = 1.9 mg/dL 1.6-2.6 627) Stitcher Hand ID - [id number] 05:57:00 Test Item Value Reference Range Interpretation Comments PHOSPHORUS (BEAKER) (test code = 3.2 mg/dL 2.3-4.7 604) Stitcher Hand ID - DBCALCIUM, [id number] 05:32:00 Test Item Value Reference Range Interpretation Comments CALCIUM IONIZED (BEAKER) (test 1.05 mmol/L 1.12-1.27 L code = 698) PH, BLOOD (BEAKER) (test code = 7.38 1810) [id number] 00:18:00 Test Item Value Reference Range Interpretation Comments MAGNESIUM (BEAKER) (test code = 2.4 mg/dL 1.6-2.6 627) Stitcher Hand ID - [id number] 00:18:00 Test Item Value Reference Range Interpretation Comments POTASSIUM (BEAKER) (test code = 2.7 meq/L 3.5-5.1 L 379) Stitcher Hand ID - CLAIREOCT-GLUCOSE [id number] 22:27:00 Test Item Value Reference Range Interpretation Comments POC-GLUCOSE METER 117 mg/dL 70-110 H : TESTED A T [facility] 67[facility] (BEAKER) (test code = MELVINA [place], 1538) [id number]: Stitcher Hand/Techni ebenezer ID = [id number] for Paul Worrell BASIC METABOLIC [id number] 21:45:00 Test Item Value Reference Range Interpretation Comments SODIUM (BEAKER) 124 meq/L 136-145 L (test code = 381) POTASSIUM (BEAKER) 2.9 meq/L 3.5-5.1 L (test code = 379) CHLORIDE (BEAKER) 85 meq/L 98-107 L (test code = 382) CO2 (BEAKER) (test 29 meq/L 22-29 code = 355) BLOOD UREA NITROGEN 35 mg/dL 7-21 H (BEAKER) (test code = 354) CREATININE (BEAKER) 1.53 mg/dL 0.57-1.25 H (test code = 358) GLUCOSE RANDOM 505 mg/dL 70-105 HH (BEAKER) (test code = 652) CALCIUM (BEAKER) 8.4 mg/dL 8.4-10.2 (test code = 697) EGFR (BEAKER) (test 48 mL/min/1.73 ESTIMA NEELA GFR IS code = 1092) sq m NOT ACCURATE CREATININE CLEARANCE IN PREDICTING GLOMERULAR FILTRATION RATE . ESTIMATED GFR I S NOT APPLICABLE FOR DIALYSIS PATIEN TS. Stitcher Hand ID - EMMANUEL [id number] 21:30:00 Test Item Value Reference Range Interpretation Comments MAGNESIUM (BEAKER) (test code = 2.0 mg/dL 1.6-2.6 627) Stitcher Hand ID - EMMANUEL [id number] 21:30:00 Test Item Value Reference Range Interpretation Comments PHOSPHORUS (BEAKER) (test code = 3.0 mg/dL 2.3-4.7 604) Stitcher Hand ID - EMMANUEL FCALCIUM, [id number] 20:59:00 Test Item Value Reference Range Interpretation Comments CALCIUM IONIZED (BEAKER) (test 1.10 mmol/L 1.12-1.27 L code = 698) PH, BLOOD (BEAKER) (test code = 7.39 1810) POCT-GLUCOSE [id number] 16:40:00 Test Item Value Reference Range Interpretation Comments POC-GLUCOSE METER 129 mg/dL 70-110 H : [facility] (test code = [place], 1538) [address]: Stitcher Hand/Techni ebenezer ID = [id number] for SARITA AMAYA BASIC METABOLIC [id number] 15:43:00 Test Item Value Reference Range Interpretation Comments SODIUM (BEAKER) 125 meq/L 136-145 L (test code = 381) POTASSIUM (BEAKER) 3.6 meq/L 3.5-5.1 (test code = 379) CHLORIDE (BEAKER) 85 meq/L 98-107 L (test code = 382) CO2 (BEAKER) (test 27 meq/L 22-29 code = 355) BLOOD UREA NITROGEN 37 mg/dL 7-21 H (BEAKER) (test code = 354) CREATININE (BEAKER) 1.46 mg/dL 0.57-1.25 H (test code = 358) GLUCOSE RANDOM 431 mg/dL 70-105 HH (BEAKER) (test code = 652) CALCIUM (BEAKER) 8.8 mg/dL 8.4-10.2 (test code = 697) EGFR (BEAKER) (test 51 mL/min/1.73 ESTIMA NEELA GFR IS code = 1092) sq m NOT ACCURATE CREATININE CLEARANCE IN PREDICTING GLOMERULAR FILTRATION RATE . ESTIMATED GFR I S NOT APPLICABLE FOR DIALYSIS PATIEN TS. Stitcher Hand ID Sal BENITEZ [id number] 15:42:00 Test Item Value Reference Range Interpretation Comments MAGNESIUM (BEAKER) (test code = 2.1 mg/dL 1.6-2.6 627) Stitcher Hand [facility] MET[facility]OLIC [id number] 11:42:00 Test Item Value Reference Range Interpretation Comments SODIUM (BEAKER) 127 meq/L 136-145 L (test code = 381) POTASSIUM (BEAKER) 3.6 meq/L 3.5-5.1 (test code = 379) CHLORIDE (BEAKER) 84 meq/L 98-107 L (test code = 382) CO2 (BEAKER) (test 31 meq/L 22-29 H code = 355) BLOOD UREA NITROGEN 38 mg/dL 7-21 H (BEAKER) (test code = 354) CREATININE (BEAKER) 1.19 mg/dL 0.57-1.25 (test code = 358) GLUCOSE RANDOM 293 mg/dL 70-105 H (BEAKER) (test code = 652) CALCIUM (BEAKER) 8.8 mg/dL 8.4-10.2 (test code = 697) EGFR (BEAKER) (test 65 mL/min/1.73 ESTIMA NEELA GFR IS code = 1092) sq m NOT ACCURATE CREATININE CLEARANCE IN PREDICTING GLOMERULAR FILTRATION RATE . ESTIMATED GFR I S NOT APPLICABLE FOR DIALYSIS PATIEN TS. Stitcher Hand JESSICA BENITEZ [id number] 11:42:00 Test Item Value Reference Range Interpretation Comments MAGNESIUM (BEAKER) (test code = 2.3 mg/dL 1.6-2.6 627) Stitcher Hand [facility] METABOLIC [id number] 05:51:00 Test Item Value Reference Range Interpretation Comments SODIUM (BEAKER) 134 meq/L 136-145 L (test code = 381) POTASSIUM (BEAKER) 3.2 meq/L 3.5-5.1 L (test code = 379) CHLORIDE (BEAKER) 86 meq/L 98-107 L (test code = 382) CO2 (BEAKER) (test 34 meq/L 22-29 H code = 355) BLOOD UREA NITROGEN 38 mg/dL 7-21 H (BEAKER) (test code = 354) CREATININE (BEAKER) 1.16 mg/dL 0.57-1.25 (test code = 358) GLUCOSE RANDOM 128 mg/dL 70-105 H (BEAKER) (test code = 652) CALCIUM (BEAKER) 9.4 mg/dL 8.4-10.2 (test code = 697) EGFR (BEAKER) (test 67 mL/min/1.73 ESTIMA NEELA GFR IS code = 1092) sq m NOT ACCURATE CREATININE CLEARANCE IN PREDICTING GLOMERULAR FILTRATION RATE . ESTIMATED GFR I S NOT APPLICABLE FOR DIALYSIS PATIEN TS. Stitcher Hand ID - SOCO [id number] 05:51:00 Test Item Value Reference Range Interpretation Comments MAGNESIUM (BEAKER) (test code = 2.2 mg/dL 1.6-2.6 627) Stitcher Hand ID - SOCO LCBC W/PLT COUNT & AUTO [id number] 05:45:00 Test Item Value Reference Range Interpretation Comments WHITE BLOOD CELL COUNT (BEAKER) 7.6 K/ L 3.5-10.5 (test code = 775) RED BLOOD CELL COUNT (BEAKER) 3.46 M/ L 4.63-6.08 L (test code = 761) HEMOGLOBIN (BEAKER) (test code = 9.8 GM/DL 13.7-17.5 L 410) HEMATOCRIT (BEAKER) (test code = 31.1 % 40.1-51.0 L 411) MEAN CORPUSCULAR VOLUME (BEAKER) 89.9 fL 79.0-92.2 (test code = 753) MEAN CORPUSCULAR HEMOGLOBIN 28.3 pg 25.7-32.2 (BEAKER) (test code = 751) MEAN CORPUSCULAR HEMOGLOBIN CONC 31.5 GM/DL 32.3-36.5 L (BEAKER) (test code = 752) RED CELL DISTRIBUTION WIDTH 14.9 % 11.6-14.4 H (BEAKER) (test code = 412) PLATELET COUNT (BEAKER) (test 238 K/CU MM 150-450 code = 756) MEAN PLATELET VOLUME (BEAKER) 9.0 fL 9.4-12.4 L (test code = 754) NUCLEATED RED BLOOD CELLS 0 /100 WBC 0-0 (BEAKER) (test code = 413) NEUTROPHILS RELATIVE PERCENT 78 % (BEAKER) (test code = 429) LYMPHOCYTES RELATIVE PERCENT 13 % (BEAKER) (test code = 430) MONOCYTES RELATIVE PERCENT 6 % (BEAKER) (test code = 431) EOSINOPHILS RELATIVE PERCENT 3 % (BEAKER) (test code = 432) BASOPHILS RELATIVE PERCENT 0 % (BEAKER) (test code = 437) NEUTROPHILS ABSOLUTE COUNT 5.89 K/ L 1.78-5.38 H (BEAKER) (test code = 670) LYMPHOCYTES ABSOLUTE COUNT 0.97 K/ L 1.32-3.57 L (BEAKER) (test code = 414) MONOCYTES ABSOLUTE COUNT (BEAKER) 0.44 K/ L 0.30-0.82 (test code = 415) EOSINOPHILS ABSOLUTE COUNT 0.25 K/ L 0.04-0.54 (BEAKER) (test code = 416) BASOPHILS ABSOLUTE COUNT (BEAKER) 0.01 K/ L 0.01-0.08 (test code = 417) IMMATURE GRANULOCYTES-RELATIVE 0 % 0-1 PERCENT (BEAKER) (test code = 2801) BASIC METABOLIC [id number] 00:11:00 Test Item Value Reference Range Interpretation Comments SODIUM (BEAKER) 131 meq/L 136-145 L (test code = 381) POTASSIUM (BEAKER) 2.9 meq/L 3.5-5.1 L (test code = 379) CHLORIDE (BEAKER) 85 meq/L 98-107 L (test code = 382) CO2 (BEAKER) (test 33 meq/L 22-29 H code = 355) BLOOD UREA NITROGEN 39 mg/dL 7-21 H (BEAKER) (test code = 354) CREATININE (BEAKER) 1.26 mg/dL 0.57-1.25 H (test code = 358) GLUCOSE RANDOM 152 mg/dL 70-105 H (BEAKER) (test code = 652) CALCIUM (BEAKER) 9.4 mg/dL 8.4-10.2 (test code = 697) EGFR (BEAKER) (test 61 mL/min/1.73 ESTIMA NEELA GFR IS code = 1092) sq m NOT ACCURATE CREATININE CLEARANCE IN PREDICTING GLOMERULAR FILTRATION RATE . ESTIMATED GFR I S NOT APPLICABLE FOR DIALYSIS PATIEN TS. Stitcher Hand ID - PIAYA [id number] 00:11:00 Test Item Value Reference Range Interpretation Comments MAGNESIUM (BEAKER) (test code = 2.1 mg/dL 1.6-2.6 627) Stitcher Hand ID - PIAYA [id number] 18:52:00 Test Item Value Reference Range Interpretation Comments MAGNESIUM (BEAKER) (test code = 1.7 mg/dL 1.6-2.6 627) Stitcher Hand ID - DBBASIC METABOLIC [id number] 18:08:00 Test Item Value Reference Range Interpretation Comments SODIUM (BEAKER) 127 meq/L 136-145 L (test code = 381) POTASSIUM (BEAKER) 3.1 meq/L 3.5-5.1 L (test code = 379) CHLORIDE (BEAKER) 83 meq/L 98-107 L (test code = 382) CO2 (BEAKER) (test 31 meq/L 22-29 H code = 355) BLOOD UREA NITROGEN 38 mg/dL 7-21 H (BEAKER) (test code = 354) CREATININE (BEAKER) 1.46 mg/dL 0.57-1.25 H (test code = 358) GLUCOSE RANDOM 385 mg/dL 70-105 H (BEAKER) (test code = 652) CALCIUM (BEAKER) 9.0 mg/dL 8.4-10.2 (test code = 697) EGFR (BEAKER) (test 51 mL/min/1.73 ESTIMA NEELA GFR IS code = 1092) sq m NOT ACCURATE CREATININE CLEARANCE IN PREDICTING GLOMERULAR FILTRATION RATE . ESTIMATED GFR I S NOT APPLICABLE FOR DIALYSIS PATIEN TS. Stitcher Hand ID - DBBASIC METABOLIC [id number] 13:14:00 Test Item Value Reference Range Interpretation Comments SODIUM (BEAKER) 129 meq/L 136-145 L (test code = 381) POTASSIUM (BEAKER) 3.1 meq/L 3.5-5.1 L (test code = 379) CHLORIDE (BEAKER) 85 meq/L 98-107 L (test code = 382) CO2 (BEAKER) (test 33 meq/L 22-29 H code = 355) BLOOD UREA NITROGEN 38 mg/dL 7-21 H (BEAKER) (test code = 354) CREATININE (BEAKER) 1.27 mg/dL 0.57-1.25 H (test code = 358) GLUCOSE RANDOM 183 mg/dL 70-105 H (BEAKER) (test code = 652) CALCIUM (BEAKER) 9.7 mg/dL 8.4-10.2 (test code = 697) EGFR (BEAKER) (test 60 mL/min/1.73 ESTIMA NEELA GFR IS code = 1092) sq m NOT ACCURATE CREATININE CLEARANCE IN PREDICTING GLOMERULAR FILTRATION RATE . ESTIMATED GFR I S NOT APPLICABLE FOR DIALYSIS PATIEN TS. Stitcher Hand ID - LEANNE [id number] 10:59:00 Test Item Value Reference Range Interpretation Comments MAGNESIUM (BEAKER) (test code = 1.8 mg/dL 1.6-2.6 627) Stitcher Hand ID - LEANNE CBASIC METABOLIC [id number] 06:29:00 Test Item Value Reference Range Interpretation Comments SODIUM (BEAKER) 136 meq/L 136-145 (test code = 381) POTASSIUM (BEAKER) 3.4 meq/L 3.5-5.1 L (test code = 379) CHLORIDE (BEAKER) 90 meq/L 98-107 L (test code = 382) CO2 (BEAKER) (test 32 meq/L 22-29 H code = 355) BLOOD UREA NITROGEN 41 mg/dL 7-21 H (BEAKER) (test code = 354) CREATININE (BEAKER) 1.28 mg/dL 0.57-1.25 H (test code = 358) GLUCOSE RANDOM 122 mg/dL 70-105 H (BEAKER) (test code = 652) CALCIUM (BEAKER) 9.8 mg/dL 8.4-10.2 (test code = 697) EGFR (BEAKER) (test 59 mL/min/1.73 ESTIMA NEELA GFR IS code = 1092) sq m NOT ACCURATE CREATININE CLEARANCE IN PREDICTING GLOMERULAR FILTRATION RATE . ESTIMATED GFR I S NOT APPLICABLE FOR DIALYSIS PATIEN TS. Stitcher Hand ID - SOCO LBASIC METABOLIC [id number] 00:29:00 Test Item Value Reference Range Interpretation Comments SODIUM (BEAKER) 130 meq/L 136-145 L (test code = 381) POTASSIUM (BEAKER) 2.9 meq/L 3.5-5.1 L (test code = 379) CHLORIDE (BEAKER) 88 meq/L 98-107 L (test code = 382) CO2 (BEAKER) (test 28 meq/L 22-29 code = 355) BLOOD UREA NITROGEN 41 mg/dL 7-21 H (BEAKER) (test code = 354) CREATININE (BEAKER) 1.44 mg/dL 0.57-1.25 H (test code = 358) GLUCOSE RANDOM 220 mg/dL 70-105 H (BEAKER) (test code = 652) CALCIUM (BEAKER) 9.2 mg/dL 8.4-10.2 (test code = 697) EGFR (BEAKER) (test 52 mL/min/1.73 ESTIMA NEELA GFR IS code = 1092) sq m NOT ACCURATE CREATININE CLEARANCE IN PREDICTING GLOMERULAR FILTRATION RATE . ESTIMATED GFR I S NOT APPLICABLE FOR DIALYSIS PATIEN TS. Stitcher Hand ID - PIAYA LBASIC METABOLIC [id number] 18:37:00 Test Item Value Reference Range Interpretation Comments SODIUM (BEAKER) 133 meq/L 136-145 L (test code = 381) POTASSIUM (BEAKER) 3.2 meq/L 3.5-5.1 L (test code = 379) CHLORIDE (BEAKER) 88 meq/L 98-107 L (test code = 382) CO2 (BEAKER) (test 35 meq/L 22-29 H code = 355) BLOOD UREA NITROGEN 39 mg/dL 7-21 H (BEAKER) (test code = 354) CREATININE (BEAKER) 1.31 mg/dL 0.57-1.25 H (test code = 358) GLUCOSE RANDOM 198 mg/dL 70-105 H (BEAKER) (test code = 652) CALCIUM (BEAKER) 9.4 mg/dL 8.4-10.2 (test code = 697) EGFR (BEAKER) (test 58 mL/min/1.73 ESTIMA NEELA GFR IS code = 1092) sq m NOT ACCURATE CREATININE CLEARANCE IN PREDICTING GLOMERULAR FILTRATION RATE . ESTIMATED GFR I S NOT APPLICABLE FOR DIALYSIS PATIEN TS. Stitcher Hand ID - DBBASIC METABOLIC [id number] 11:46:00 Test Item Value Reference Range Interpretation Comments SODIUM (BEAKER) 135 meq/L 136-145 L (test code = 381) POTASSIUM (BEAKER) 3.4 meq/L 3.5-5.1 L (test code = 379) CHLORIDE (BEAKER) 89 meq/L 98-107 L (test code = 382) CO2 (BEAKER) (test 35 meq/L 22-29 H code = 355) BLOOD UREA NITROGEN 39 mg/dL 7-21 H (BEAKER) (test code = 354) CREATININE (BEAKER) 1.34 mg/dL 0.57-1.25 H (test code = 358) GLUCOSE RANDOM 119 mg/dL 70-105 H (BEAKER) (test code = 652) CALCIUM (BEAKER) 9.7 mg/dL 8.4-10.2 (test code = 697) EGFR (BEAKER) (test 56 mL/min/1.73 ESTIMA NEELA GFR IS code = 1092) sq m NOT ACCURATE CREATININE CLEARANCE IN PREDICTING GLOMERULAR FILTRATION RATE . ESTIMATED GFR I S NOT APPLICABLE FOR DIALYSIS PATIEN TS. Stitcher Hand ID - JAVAN CHEST, 1 VIEW, NON [id number] 08:38:00Reason for exam:->CONFIRM PA CATH POSITIONShould this be performed at the bedside?->YesR[facility] : 1970 Sex: MFINAL REPORT Chest, one view. HISTORY: CONFIRM PA CATH POSITION COMPARISON: Radiograph from 03/30/2021 IMPRESSION: The right PICC and left chest cardiac device are unchanged in position.Interval placement of a right IJ catheter with the tip over the superior cavoatrial junction. Pulmonary venous congestion. No pleural effusion or pneumothorax. A small right pleural effusion is unchanged. No acute bone abnormality. Signed: Catalino Bender MDReport Verified Date/Time: 04/05/2021 08:38:14 Reading Location: [facility] [id number] Ortho Consult Reading Room Electronically signed by: Matias VELIZ 04/05/2021 08:38 AM BASIC METABOLIC [id number] 06:29:00 Test Item Value Reference Range Interpretation Comments SODIUM (BEAKER) 132 meq/L 136-145 L (test code = 381) POTASSIUM (BEAKER) 3.1 meq/L 3.5-5.1 L (test code = 379) CHLORIDE (BEAKER) 89 meq/L 98-107 L (test code = 382) CO2 (BEAKER) (test 34 meq/L 22-29 H code = 355) BLOOD UREA NITROGEN 38 mg/dL 7-21 H (BEAKER) (test code = 354) CREATININE (BEAKER) 1.20 mg/dL 0.57-1.25 (test code = 358) GLUCOSE RANDOM 208 mg/dL 70-105 H (BEAKER) (test code = 652) CALCIUM (BEAKER) 9.2 mg/dL 8.4-10.2 (test code = 697) EGFR (BEAKER) (test 64 mL/min/1.73 ESTIMA NEELA GFR IS code = 1092) sq m NOT ACCURATE CREATININE CLEARANCE IN PREDICTING GLOMERULAR FILTRATION RATE . ESTIMATED GFR I S NOT APPLICABLE FOR DIALYSIS PATIEN TS. Stitcher Hand ID - [id number] 06:29:00 Test Item Value Reference Range Interpretation Comments MAGNESIUM (BEAKER) (test code = 1.9 mg/dL 1.6-2.6 627) Stitcher Hand ID - DBBASIC METABOLIC [id number] 23:43:00 Test Item Value Reference Range Interpretation Comments SODIUM (BEAKER) 132 meq/L 136-145 L (test code = 381) POTASSIUM (BEAKER) 2.9 meq/L 3.5-5.1 L (test code = 379) CHLORIDE (BEAKER) 88 meq/L 98-107 L (test code = 382) CO2 (BEAKER) (test 30 meq/L 22-29 H code = 355) BLOOD UREA NITROGEN 39 mg/dL 7-21 H (BEAKER) (test code = 354) CREATININE (BEAKER) 1.24 mg/dL 0.57-1.25 (test code = 358) GLUCOSE RANDOM 147 mg/dL 70-105 H (BEAKER) (test code = 652) CALCIUM (BEAKER) 9.3 mg/dL 8.4-10.2 (test code = 697) EGFR (BEAKER) (test 62 mL/min/1.73 ESTIMA NEELA GFR IS code = 1092) sq m NOT ACCURATE CREATININE CLEARANCE IN PREDICTING GLOMERULAR FILTRATION RATE . ESTIMATED GFR I S NOT APPLICABLE FOR DIALYSIS PATIEN TS. Stitcher Hand ID - [id number] 23:43:00 Test Item Value Reference Range Interpretation Comments MAGNESIUM (BEAKER) (test code = 2.3 mg/dL 1.6-2.6 627) Stitcher Hand ID - DBBASIC METABOLIC [id number] 13:10:00 Test Item Value Reference Range Interpretation Comments SODIUM (BEAKER) 132 meq/L 136-145 L (test code = 381) POTASSIUM (BEAKER) 3.4 meq/L 3.5-5.1 L (test code = 379) CHLORIDE (BEAKER) 89 meq/L 98-107 L (test code = 382) CO2 (BEAKER) (test 31 meq/L 22-29 H code = 355) BLOOD UREA NITROGEN 44 mg/dL 7-21 H (BEAKER) (test code = 354) CREATININE (BEAKER) 1.77 mg/dL 0.57-1.25 H (test code = 358) GLUCOSE RANDOM 135 mg/dL 70-105 H (BEAKER) (test code = 652) CALCIUM (BEAKER) 9.2 mg/dL 8.4-10.2 (test code = 697) EGFR (BEAKER) (test 41 mL/min/1.73 ESTIMA NEELA GFR IS code = 1092) sq m NOT ACCURATE CREATININE CLEARANCE IN PREDICTING GLOMERULAR FILTRATION RATE . ESTIMATED GFR I S NOT APPLICABLE FOR DIALYSIS PATIEN TS. Stitcher Hand ID - AUNDREAAYA [id number] 13:10:00 Test Item Value Reference Range Interpretation Comments MAGNESIUM (BEAKER) (test code = 2.9 mg/dL 1.6-2.6 H 627) Stitcher Hand ID - SOCO [id number] 05:39:00 Test Item Value Reference Range Interpretation Comments MAGNESIUM (BEAKER) (test code = 2.1 mg/dL 1.6-2.6 627) Stitcher Hand ID - [id number] 05:39:00 Test Item Value Reference Range Interpretation Comments PHOSPHORUS (BEAKER) (test code = 4.4 mg/dL 2.3-4.7 604) Stitcher Hand ID - EDASICBC W/PLT COUNT & AUTO [id number] 05:25:00 Test Item Value Reference Range Interpretation Comments WHITE BLOOD CELL COUNT (BEAKER) 10.9 K/ L 3.5-10.5 H (test code = 775) RED BLOOD CELL COUNT (BEAKER) 3.46 M/ L 4.63-6.08 L (test code = 761) HEMOGLOBIN (BEAKER) (test code = 9.9 GM/DL 13.7-17.5 L 410) HEMATOCRIT (BEAKER) (test code = 31.0 % 40.1-51.0 L 411) MEAN CORPUSCULAR VOLUME (BEAKER) 89.6 fL 79.0-92.2 (test code = 753) MEAN CORPUSCULAR HEMOGLOBIN 28.6 pg 25.7-32.2 (BEAKER) (test code = 751) MEAN CORPUSCULAR HEMOGLOBIN CONC 31.9 GM/DL 32.3-36.5 L (BEAKER) (test code = 752) RED CELL DISTRIBUTION WIDTH 15.3 % 11.6-14.4 H (BEAKER) (test code = 412) PLATELET COUNT (BEAKER) (test 292 K/CU MM 150-450 code = 756) MEAN PLATELET VOLUME (BEAKER) 9.1 fL 9.4-12.4 L (test code = 754) NUCLEATED RED BLOOD CELLS 0 /100 WBC 0-0 (BEAKER) (test code = 413) NEUTROPHILS RELATIVE PERCENT 82 % (BEAKER) (test code = 429) LYMPHOCYTES RELATIVE PERCENT 10 % (BEAKER) (test code = 430) MONOCYTES RELATIVE PERCENT 6 % (BEAKER) (test code = 431) EOSINOPHILS RELATIVE PERCENT 2 % (BEAKER) (test code = 432) BASOPHILS RELATIVE PERCENT 0 % (BEAKER) (test code = 437) NEUTROPHILS ABSOLUTE COUNT 8.94 K/ L 1.78-5.38 H (BEAKER) (test code = 670) LYMPHOCYTES ABSOLUTE COUNT 1.06 K/ L 1.32-3.57 L (BEAKER) (test code = 414) MONOCYTES ABSOLUTE COUNT (BEAKER) 0.69 K/ L 0.30-0.82 (test code = 415) EOSINOPHILS ABSOLUTE COUNT 0.19 K/ L 0.04-0.54 (BEAKER) (test code = 416) BASOPHILS ABSOLUTE COUNT (BEAKER) 0.01 K/ L 0.01-0.08 (test code = 417) IMMATURE GRANULOCYTES-RELATIVE 0 % 0-1 PERCENT (BEAKER) (test code = 2801) OXYGEN SATURATION, [id number] 04:24:00 Test Item Value Reference Range Interpretation Comments O2 SATURATION (MEASURED) (BEAKER) 64.4 % (test code = 1455) BASIC METABOLIC [id number] 00:39:00 Test Item Value Reference Range Interpretation Comments SODIUM (BEAKER) 130 meq/L 136-145 L (test code = 381) POTASSIUM (BEAKER) 3.1 meq/L 3.5-5.1 L (test code = 379) CHLORIDE (BEAKER) 86 meq/L 98-107 L (test code = 382) CO2 (BEAKER) (test 30 meq/L 22-29 H code = 355) BLOOD UREA NITROGEN 40 mg/dL 7-21 H (BEAKER) (test code = 354) CREATININE (BEAKER) 1.49 mg/dL 0.57-1.25 H (test code = 358) GLUCOSE RANDOM 135 mg/dL 70-105 H (BEAKER) (test code = 652) CALCIUM (BEAKER) 9.1 mg/dL 8.4-10.2 (test code = 697) EGFR (BEAKER) (test 50 mL/min/1.73 ESTIMA NEELA GFR IS code = 1092) sq m NOT ACCURATE CREATININE CLEARANCE IN PREDICTING GLOMERULAR FILTRATION RATE . ESTIMATED GFR I S NOT APPLICABLE FOR DIALYSIS PATIEN TS. Stitcher Hand ID - [id number] 00:39:00 Test Item Value Reference Range Interpretation Comments MAGNESIUM (BEAKER) (test code = 2.1 mg/dL 1.6-2.6 627) Stitcher Hand ID - DBOXYGEN SATURATION, [id number] 18:54:00 Test Item Value Reference Range Interpretation Comments O2 SATURATION (MEASURED) (BEAKER) 68.4 % (test code = 1455) BASIC METABOLIC [id number] 18:34:00 Test Item Value Reference Range Interpretation Comments SODIUM (BEAKER) 129 meq/L 136-145 L (test code = 381) POTASSIUM (BEAKER) 2.6 meq/L 3.5-5.1 LL (test code = 379) CHLORIDE (BEAKER) 85 meq/L 98-107 L (test code = 382) CO2 (BEAKER) (test 31 meq/L 22-29 H code = 355) BLOOD UREA NITROGEN 38 mg/dL 7-21 H (BEAKER) (test code = 354) CREATININE (BEAKER) 1.36 mg/dL 0.57-1.25 H (test code = 358) GLUCOSE RANDOM 134 mg/dL 70-105 H (BEAKER) (test code = 652) CALCIUM (BEAKER) 9.3 mg/dL 8.4-10.2 (test code = 697) EGFR (BEAKER) (test 55 mL/min/1.73 ESTIMA NEELA GFR IS code = 1092) sq m NOT ACCURATE CREATININE CLEARANCE IN PREDICTING GLOMERULAR FILTRATION RATE . ESTIMATED GFR I S NOT APPLICABLE FOR DIALYSIS PATIEN TS. Stitcher Hand ID - DBBASIC METABOLIC [id number] 05:48:00 Test Item Value Reference Range Interpretation Comments SODIUM (BEAKER) 127 meq/L 136-145 L (test code = 381) POTASSIUM (BEAKER) 3.3 meq/L 3.5-5.1 L (test code = 379) CHLORIDE (BEAKER) 86 meq/L 98-107 L (test code = 382) CO2 (BEAKER) (test 26 meq/L 22-29 code = 355) BLOOD UREA NITROGEN 41 mg/dL 7-21 H (BEAKER) (test code = 354) CREATININE (BEAKER) 1.70 mg/dL 0.57-1.25 H (test code = 358) GLUCOSE RANDOM 88 mg/dL 70-105 (BEAKER) (test code = 652) CALCIUM (BEAKER) 9.2 mg/dL 8.4-10.2 (test code = 697) EGFR (BEAKER) (test 43 mL/min/1.73 ESTIMA NEELA GFR IS code = 1092) sq m NOT ACCURATE CREATININE CLEARANCE IN PREDICTING GLOMERULAR FILTRATION RATE . ESTIMATED GFR I S NOT APPLICABLE FOR DIALYSIS PATIEN TS. Stitcher Hand ID - PIAYA [id number] 08:57:00 Test Item Value Reference Range Interpretation Comments MAGNESIUM (BEAKER) 2.3 mg/dL 1.6-2.6 Specimen slightly (test code = 627) hemolyzed Stitcher Hand ID - PIAYA LBASIC METABOLIC [id number] 05:59:00 Test Item Value Reference Range Interpretation Comments SODIUM (BEAKER) 130 meq/L 136-145 L (test code = 381) POTASSIUM (BEAKER) 3.2 meq/L 3.5-5.1 L (test code = 379) CHLORIDE (BEAKER) 85 meq/L 98-107 L (test code = 382) CO2 (BEAKER) (test 32 meq/L 22-29 H code = 355) BLOOD UREA NITROGEN 30 mg/dL 7-21 H (BEAKER) (test code = 354) CREATININE (BEAKER) 1.45 mg/dL 0.57-1.25 H (test code = 358) GLUCOSE RANDOM 97 mg/dL 70-105 (BEAKER) (test code = 652) CALCIUM (BEAKER) 9.3 mg/dL 8.4-10.2 (test code = 697) EGFR (BEAKER) (test 52 mL/min/1.73 ESTIMA NEELA GFR IS code = 1092) sq m NOT ACCURATE CREATININE CLEARANCE IN PREDICTING GLOMERULAR FILTRATION RATE . ESTIMATED GFR I S NOT APPLICABLE FOR DIALYSIS PATIEN TS. Stitcher Hand ID - SO MCBC W/PLT COUNT & AUTO [id number] 05:23:00 Test Item Value Reference Range Interpretation Comments WHITE BLOOD CELL COUNT (BEAKER) 6.4 K/ L 3.5-10.5 (test code = 775) RED BLOOD CELL COUNT (BEAKER) 3.67 M/ L 4.63-6.08 L (test code = 761) HEMOGLOBIN (BEAKER) (test code = 10.5 GM/DL 13.7-17.5 L 410) HEMATOCRIT (BEAKER) (test code = 33.8 % 40.1-51.0 L 411) MEAN CORPUSCULAR VOLUME (BEAKER) 92.1 fL 79.0-92.2 (test code = 753) MEAN CORPUSCULAR HEMOGLOBIN 28.6 pg 25.7-32.2 (BEAKER) (test code = 751) MEAN CORPUSCULAR HEMOGLOBIN CONC 31.1 GM/DL 32.3-36.5 L (BEAKER) (test code = 752) RED CELL DISTRIBUTION WIDTH 15.5 % 11.6-14.4 H (BEAKER) (test code = 412) PLATELET COUNT (BEAKER) (test 267 K/CU MM 150-450 code = 756) MEAN PLATELET VOLUME (BEAKER) 9.4 fL 9.4-12.4 (test code = 754) NUCLEATED RED BLOOD CELLS 0 /100 WBC 0-0 (BEAKER) (test code = 413) NEUTROPHILS RELATIVE PERCENT 66 % (BEAKER) (test code = 429) LYMPHOCYTES RELATIVE PERCENT 20 % (BEAKER) (test code = 430) MONOCYTES RELATIVE PERCENT 11 % (BEAKER) (test code = 431) EOSINOPHILS RELATIVE PERCENT 3 % (BEAKER) (test code = 432) BASOPHILS RELATIVE PERCENT 0 % (BEAKER) (test code = 437) NEUTROPHILS ABSOLUTE COUNT 4.21 K/ L 1.78-5.38 (BEAKER) (test code = 670) LYMPHOCYTES ABSOLUTE COUNT 1.28 K/ L 1.32-3.57 L (BEAKER) (test code = 414) MONOCYTES ABSOLUTE COUNT (BEAKER) 0.69 K/ L 0.30-0.82 (test code = 415) EOSINOPHILS ABSOLUTE COUNT 0.16 K/ L 0.04-0.54 (BEAKER) (test code = 416) BASOPHILS ABSOLUTE COUNT (BEAKER) 0.02 K/ L 0.01-0.08 (test code = 417) IMMATURE GRANULOCYTES-RELATIVE 0 % 0-1 PERCENT (BEAKER) (test code = 2801) BASIC METABOLIC [id number] 05:00:00 Test Item Value Reference Range Interpretation Comments SODIUM (BEAKER) 128 meq/L 136-145 L (test code = 381) POTASSIUM (BEAKER) 3.4 meq/L 3.5-5.1 L (test code = 379) CHLORIDE (BEAKER) 83 meq/L 98-107 L (test code = 382) CO2 (BEAKER) (test 34 meq/L 22-29 H code = 355) BLOOD UREA NITROGEN 20 mg/dL 7-21 (BEAKER) (test code = 354) CREATININE (BEAKER) 1.18 mg/dL 0.57-1.25 (test code = 358) GLUCOSE RANDOM 113 mg/dL 70-105 H (BEAKER) (test code = 652) CALCIUM (BEAKER) 9.5 mg/dL 8.4-10.2 (test code = 697) EGFR (BEAKER) (test 65 mL/min/1.73 ESTIMA NEELA GFR IS code = 1092) sq m NOT ACCURATE CREATININE CLEARANCE IN PREDICTING GLOMERULAR FILTRATION RATE . ESTIMATED GFR I S NOT APPLICABLE FOR DIALYSIS PATIEN TS. Stitcher Hand ID - PIAYA LCBC W/PLT COUNT & AUTO [id number] 04:32:00 Test Item Value Reference Range Interpretation Comments WHITE BLOOD CELL COUNT 9.5 K/ L 3.5-10.5 (BEAKER) (test code = 775) RED BLOOD CELL COUNT 3.70 M/ L 4.63-6.08 L (BEAKER) (test code = 761) HEMOGLOBIN (BEAKER) 10.7 GM/DL 13.7-17.5 L (test code = 410) HEMATOCRIT (BEAKER) 33.4 % 40.1-51.0 L (test code = 411) MEAN CORPUSCULAR 90.3 fL 79.0-92.2 Discordant mcv VOLUME (BEAKER) (test result compared to code = 753) previous result , clinical correl ation required MEAN CORPUSCULAR 28.9 pg 25.7-32.2 HEMOGLOBIN (BEAKER) (test code = 751) MEAN CORPUSCULAR 32.0 GM/DL 32.3-36.5 L HEMOGLOBIN CONC (BEAKER) (test code = 752) RED CELL DISTRIBUTION 15.5 % 11.6-14.4 H WIDTH (BEAKER) (test code = 412) PLATELET COUNT 298 K/CU MM 150-450 (BEAKER) (test code = 756) MEAN PLATELET VOLUME 9.2 fL 9.4-12.4 L (BEAKER) (test code = 754) NUCLEATED RED BLOOD 0 /100 WBC 0-0 CELLS (BEAKER) (test code = 413) NEUTROPHILS RELATIVE 76 % PERCENT (BEAKER) (test code = 429) LYMPHOCYTES RELATIVE 14 % PERCENT (BEAKER) (test code = 430) MONOCYTES RELATIVE 8 % PERCENT (BEAKER) (test code = 431) EOSINOPHILS RELATIVE 3 % PERCENT (BEAKER) (test code = 432) BASOPHILS RELATIVE 0 % PERCENT (BEAKER) (test code = 437) NEUTROPHILS ABSOLUTE 7.14 K/ L 1.78-5.38 H COUNT (BEAKER) (test code = 670) LYMPHOCYTES ABSOLUTE 1.28 K/ L 1.32-3.57 L COUNT (BEAKER) (test code = 414) MONOCYTES ABSOLUTE 0.73 K/ L 0.30-0.82 COUNT (BEAKER) (test code = 415) EOSINOPHILS ABSOLUTE 0.25 K/ L 0.04-0.54 COUNT (BEAKER) (test code = 416) BASOPHILS ABSOLUTE 0.02 K/ L 0.01-0.08 COUNT (BEAKER) (test code = 417) IMMATURE 0 % 0-1 GRANULOCYTES-RELATIVE PERCENT (BEAKER) (test code = 2801) BASIC METABOLIC [id number] 07:03:00 Test Item Value Reference Range Interpretation Comments SODIUM (BEAKER) 133 meq/L 136-145 L (test code = 381) POTASSIUM (BEAKER) 3.0 meq/L 3.5-5.1 L (test code = 379) CHLORIDE (BEAKER) 90 meq/L 98-107 L (test code = 382) CO2 (BEAKER) (test 30 meq/L 22-29 H code = 355) BLOOD UREA NITROGEN 18 mg/dL 7-21 (BEAKER) (test code = 354) CREATININE (BEAKER) 1.16 mg/dL 0.57-1.25 (test code = 358) GLUCOSE RANDOM 150 mg/dL 70-105 H (BEAKER) (test code = 652) CALCIUM (BEAKER) 8.7 mg/dL 8.4-10.2 (test code = 697) EGFR (BEAKER) (test 67 mL/min/1.73 ESTIMA NEELA GFR IS code = 1092) sq m NOT ACCURATE CREATININE CLEARANCE IN PREDICTING GLOMERULAR FILTRATION RATE . ESTIMATED GFR I S NOT APPLICABLE FOR DIALYSIS PATIEN TS. Stitcher Hand ID - AAHAMIDCBC W/PLT COUNT & AUTO [id number] 06:54:00 Test Item Value Reference Range Interpretation Comments WHITE BLOOD CELL COUNT (BEAKER) 7.4 K/ L 3.5-10.5 (test code = 775) RED BLOOD CELL COUNT (BEAKER) 3.26 M/ L 4.63-6.08 L (test code = 761) HEMOGLOBIN (BEAKER) (test code = 9.5 GM/DL 13.7-17.5 L 410) HEMATOCRIT (BEAKER) (test code = 30.9 % 40.1-51.0 L 411) MEAN CORPUSCULAR VOLUME (BEAKER) 94.8 fL 79.0-92.2 H (test code = 753) MEAN CORPUSCULAR HEMOGLOBIN 29.1 pg 25.7-32.2 (BEAKER) (test code = 751) MEAN CORPUSCULAR HEMOGLOBIN CONC 30.7 GM/DL 32.3-36.5 L (BEAKER) (test code = 752) RED CELL DISTRIBUTION WIDTH 16.0 % 11.6-14.4 H (BEAKER) (test code = 412) PLATELET COUNT (BEAKER) (test 236 K/CU MM 150-450 code = 756) MEAN PLATELET VOLUME (BEAKER) 9.3 fL 9.4-12.4 L (test code = 754) NUCLEATED RED BLOOD CELLS 0 /100 WBC 0-0 (BEAKER) (test code = 413) NEUTROPHILS RELATIVE PERCENT 75 % (BEAKER) (test code = 429) LYMPHOCYTES RELATIVE PERCENT 14 % (BEAKER) (test code = 430) MONOCYTES RELATIVE PERCENT 8 % (BEAKER) (test code = 431) EOSINOPHILS RELATIVE PERCENT 3 % (BEAKER) (test code = 432) BASOPHILS RELATIVE PERCENT 0 % (BEAKER) (test code = 437) NEUTROPHILS ABSOLUTE COUNT 5.56 K/ L 1.78-5.38 H (BEAKER) (test code = 670) LYMPHOCYTES ABSOLUTE COUNT 1.04 K/ L 1.32-3.57 L (BEAKER) (test code = 414) MONOCYTES ABSOLUTE COUNT (BEAKER) 0.59 K/ L 0.30-0.82 (test code = 415) EOSINOPHILS ABSOLUTE COUNT 0.20 K/ L 0.04-0.54 (BEAKER) (test code = 416) BASOPHILS ABSOLUTE COUNT (BEAKER) 0.03 K/ L 0.01-0.08 (test code = 417) IMMATURE GRANULOCYTES-RELATIVE 0 % 0-1 PERCENT (BEAKER) (test code = 2801) SARS-COV2/INFLUENZA/RSV [id number] 13:41:00 Test Item Value Reference Range Interpretation Comments SARS-COV2/RT-PCR Negative Negative (test code = 9071038) INFLUENZA A RT-PCR Negative Negative (test code = 5338044) INFLUENZA B RT-PCR Negative Negative (test code = 2758865) RSV RT-PCR (test Negative Negative Performance of the Xpert code = 2862791) Xpress SARS- CoV-2/Flu/RSV test has only b een established in nasopharyngeal swab specimens. Use of the Xpert Xpress SARS-CoV-2/Flu/ RSV test with other spec imen types has not been as sessed and performance characteristics are unknown. As wit h any molecular test, mutations within the targ eted genetic regions identified by gera fitch Xpert Xpress SARS-CoV -2/Flu/RSV test could affe ct primer and/or probe bi nding resulting in fa ilure to detect the pres ence of virus or the vi zachariah being detected less predictably.Neg ative results do not preclude SARS-CoV-2, Inf luenza A/B, or RSV inf ection and should not be u sed as the sole basis for treatment or other patien t management deci sions. Results from th e Xpert Xpress SARS-CoV -2/Flu/RSV test should be correlated with the clinic al history, epidem iological data, and other data available to th e clinician evalu ating the patient. Invali d test results may occ ur from improper specim en collection; shira lure to follow the lindy mmended sample collecti on, handling, and s torage procedures; tamara hnical error. False ne gative results may occ ur if virus is presen t at levels below th e analytical limi t of detection (LOD: 131 copies/mL). Vir al nucleic acid may persis t in vivo, independent of virus viability. Dete ction of analyte target( s) does not imply that the corresponding v irus(es) are infectious or are the causative agent s for clinical sympto ms. Recent patient exposur e to [facility] or othe r live attenuated infl uenza vaccines may ca use inaccurate posi tive results.This te st has been authorized by FDA under an EUA fo r use by authorized labo ratories. This test is on ly authorized for the duration of the declaration kem t circumstances e xist justifying the authorization o f emergency use o f in vitro diagnostic test s for detection and/o r diagnosis of CO VID-19 under Section 5 64(b)(1) of the Federal Food, Drug and Cosmetic Ac t, 21 U.S.C. 360bbb-3 (b)(1), unless the auth orization is terminated o r revoked sooner.Fact She et for Healthcare Prov iders: [email or web address]://www.[email or web address] [email or web address]/D ocuments/Xpert% 20Xpress%2 2BQXB-VcB-3-Flu -RSV/302-4 508%20Rev.%20B% 20HCP%20Fa ct%20Sheet.pdfF act Sheet for Healthcare Patients: [email or web address]://www.[email or web address]/D ocuments/Xpert% 20Xpress%2 7HKSE-FnV-9-Flu -RSV/302-4 507%20Rev.%20B% 20Patient% 20Fact%20Sheet. pdf CREATINE KINASE (CK)2021-03-30 13:28:00 Test Item Value Reference Range Interpretation Comments CREATINE KINASE TOTAL (BEAKER) (test 49 U/L 29-200 code = 380) Stitcher Hand ID - [id number] 12:35:00 Test Item Value Reference Range Interpretation Comments PROTIME (BEAKER) (test 15.1 seconds 11.9-14.2 H code = 759) INR (BEAKER) (test 1.21 See_Comment [Automat ed code = 370) message] The sy stem which generated this result transmitted reference range : <=5.90. The reference range was not used to interpret this result as normal/abnormal . PARTIAL THROMBOPLASTIN 35.0 seconds 22.5-36.0 TIME (BEAKER) (test code = 760) RECOMMENDED COUMADIN/WARFARIN INR THERAPY RANGESSTANDARD DOSE: 2.0 - 3.0 Includes: PROPHYLAXIS for venous thrombosis, systemic embolization; TREATMENT for venous thrombosis and/or pulmonary embolus.HIGH RISK: Target INR is 2.5-3.5 for patients with mechanical heart valves.HIGH SENSITIVITY TROPONIN [id number] 12:28:00 Test Item Value Reference Range Interpretation Comments HIGH SENSITIVITY 31 pg/ml See_Comment [Automated message] TROPONIN I (test code = The system which [id number]) generated this result transmitted ref erence range: <=35. Th e reference range was not used to int erpret this result as normal/abnormal . Stitcher Hand ID - ELLEN WThe [employer] BLEACHER STAT High Sensitivity Troponin-I results should be used in conjunction with other diagnostic information such as ECG, clinical observations and information, and patient symptoms to aid in the diagnosis of PR.B-TYPE NATRIURETIC FACTOR (BNP)2021-03-30 12:27:00 Test Item Value Reference Range Interpretation Comments B-TYPE NATRIURETIC PEPTIDE (BEAKER) 734 pg/mL 0-100 H (test code = 700) Stitcher Hand ID - ELLEN [id number] 12:21:00 Test Item Value Reference Range Interpretation Comments MAGNESIUM (BEAKER) 1.8 mg/dL 1.6-2.6 Specimen moderately (test code = 627) hemolyzed Stitcher Hand ID - ELLEN [id number] 12:21:00 Test Item Value Reference Range Interpretation Comments PHOSPHORUS (BEAKER) 3.3 mg/dL 2.3-4.7 Specimen moderately (test code = 604) hemolyzed Stitcher Hand ID - ELLEN WBASIC METABOLIC [id number] 12:21:00 Test Item Value Reference Range Interpretation Comments SODIUM (BEAKER) 134 meq/L 136-145 L (test code = 381) POTASSIUM (BEAKER) 4.2 meq/L 3.5-5.1 Specimen moderately (test code = 379) hemolyzed CHLORIDE (BEAKER) 93 meq/L 98-107 L (test code = 382) CO2 (BEAKER) (test 29 meq/L 22-29 code = 355) BLOOD UREA NITROGEN 13 mg/dL 7-21 (BEAKER) (test code = 354) CREATININE (BEAKER) 1.07 mg/dL 0.57-1.25 Specimen moderately (test code = 358) hemolyzed GLUCOSE RANDOM 138 mg/dL 70-105 H (BEAKER) (test code = 652) CALCIUM (BEAKER) 9.4 mg/dL 8.4-10.2 (test code = 697) EGFR (BEAKER) (test 73 mL/min/1.73 ESTIMA NEELA GFR IS code = 1092) sq m NOT ACCURATE CREATININE CLEARANCE IN PREDICTING GLOMERULAR FILTRATION RATE . ESTIMATED GFR I S NOT APPLICABLE FOR DIALYSIS PATIEN TS. Stitcher Hand ID - ELLEN WRAD, CHEST, 1 VIEW, NON [id number] 12:18:00Reason for exam:->chest painShould this be performed at the bedside?->Yes [facility] : 1970 Sex: MFINAL REPORT HISTORY: Chest pain COMPARISON: 03/24/2021 FINDINGS: The lungs are clear. Small right pleural effusion. No pneumothorax. Right PICC line tip is in the SVC region. The heart shadow is enlarged, unchanged. Left subclavian transvenous cardiac pacing hardware is present, with leadsin the region of the right atrium, right ventricle, and coronary sinus. No acute skeletal abnormalities are visualized. IMPRESSION: Small right pleural effusion. Signed: Maya [place] Verified Date/Time: 03/30/2021 12:18:09 Reading Location: [address] Transitional Reading Room CBC W/PLT COUNT & AUTO DIFFERENTIAL 2021-03-30 12:14:00 Test Item Value Reference Range Interpretation Comments WHITE BLOOD CELL COUNT 8.5 K/ L 3.5-10.5 (BEAKER) (test code = 775) RED BLOOD CELL COUNT 3.27 M/ L 4.63-6.08 L (BEAKER) (test code = 761) HEMOGLOBIN (BEAKER) 9.5 GM/DL 13.7-17.5 L (test code = 410) HEMATOCRIT (BEAKER) 30.0 % 40.1-51.0 L (test code = 411) MEAN CORPUSCULAR 91.7 fL 79.0-92.2 DISCORDANT MCV VOLUME (BEAKER) (test RESULT COMPARED TO code = 753) PREVIOUS RESULT ; CLINICAL CORREL ATION REQUIRED. MEAN CORPUSCULAR 29.1 pg 25.7-32.2 HEMOGLOBIN (BEAKER) (test code = 751) MEAN CORPUSCULAR 31.7 GM/DL 32.3-36.5 L HEMOGLOBIN CONC (BEAKER) (test code = 752) RED CELL DISTRIBUTION 16.0 % 11.6-14.4 H WIDTH (BEAKER) (test code = 412) PLATELET COUNT 275 K/CU MM 150-450 (BEAKER) (test code = 756) MEAN PLATELET VOLUME 9.6 fL 9.4-12.4 (BEAKER) (test code = 754) NUCLEATED RED BLOOD 0 /100 WBC 0-0 CELLS (BEAKER) (test code = 413) NEUTROPHILS RELATIVE 84 % PERCENT (BEAKER) (test code = 429) LYMPHOCYTES RELATIVE 11 % PERCENT (BEAKER) (test code = 430) MONOCYTES RELATIVE 4 % PERCENT (BEAKER) (test code = 431) EOSINOPHILS RELATIVE 2 % PERCENT (BEAKER) (test code = 432) BASOPHILS RELATIVE 0 % PERCENT (BEAKER) (test code = 437) NEUTROPHILS ABSOLUTE 7.14 K/ L 1.78-5.38 H COUNT (BEAKER) (test code = 670) LYMPHOCYTES ABSOLUTE 0.89 K/ L 1.32-3.57 L COUNT (BEAKER) (test code = 414) MONOCYTES ABSOLUTE 0.30 K/ L 0.30-0.82 COUNT (BEAKER) (test code = 415) EOSINOPHILS ABSOLUTE 0.13 K/ L 0.04-0.54 COUNT (BEAKER) (test code = 416) BASOPHILS ABSOLUTE 0.02 K/ L 0.01-0.08 COUNT (BEAKER) (test code = 417) IMMATURE 0 % 0-1 GRANULOCYTES-RELATIVE PERCENT (BEAKER) (test code = 2801) [id number] 06:49:00 Test Item Value Reference Range Interpretation Comments MAGNESIUM (BEAKER) 2.2 mg/dL 1.6-2.6 Specimen slightly (test code = 627) hemolyzed Stitcher Hand ID - [id number] 06:49:00 Test Item Value Reference Range Interpretation Comments PHOSPHORUS (BEAKER) 3.4 mg/dL 2.3-4.7 Specimen slightly (test code = 604) hemolyzed Stitcher Hand ID - BSBASIC METABOLIC [id number] 06:49:00 Test Item Value Reference Range Interpretation Comments SODIUM (BEAKER) 134 meq/L 136-145 L (test code = 381) POTASSIUM (BEAKER) 3.5 meq/L 3.5-5.1 Specimen slightly (test code = 379) hemolyzed CHLORIDE (BEAKER) 94 meq/L 98-107 L (test code = 382) CO2 (BEAKER) (test 26 meq/L 22-29 code = 355) BLOOD UREA NITROGEN 15 mg/dL 7-21 (BEAKER) (test code = 354) CREATININE (BEAKER) 1.07 mg/dL 0.57-1.25 Specimen slightly (test code = 358) hemolyzed GLUCOSE RANDOM 146 mg/dL 70-105 H (BEAKER) (test code = 652) CALCIUM (BEAKER) 8.8 mg/dL 8.4-10.2 (test code = 697) EGFR (BEAKER) (test 73 mL/min/1.73 ESTIMA NEELA GFR IS code = 1092) sq m NOT ACCURATE CREATININE CLEARANCE IN PREDICTING GLOMERULAR FILTRATION RATE . ESTIMATED GFR I S NOT APPLICABLE FOR DIALYSIS PATIEN TS. Stitcher Hand ID - BSCBC W/PLT COUNT & AUTO [id number] 05:59:00 Test Item Value Reference Range Interpretation Comments WHITE BLOOD CELL COUNT (BEAKER) 6.5 K/ L 3.5-10.5 (test code = 775) RED BLOOD CELL COUNT (BEAKER) 3.15 M/ L 4.63-6.08 L (test code = 761) HEMOGLOBIN (BEAKER) (test code = 9.1 GM/DL 13.7-17.5 L 410) HEMATOCRIT (BEAKER) (test code = 30.7 % 40.1-51.0 L 411) MEAN CORPUSCULAR VOLUME (BEAKER) 97.5 fL 79.0-92.2 H (test code = 753) MEAN CORPUSCULAR HEMOGLOBIN 28.9 pg 25.7-32.2 (BEAKER) (test code = 751) MEAN CORPUSCULAR HEMOGLOBIN CONC 29.6 GM/DL 32.3-36.5 L (BEAKER) (test code = 752) RED CELL DISTRIBUTION WIDTH 15.9 % 11.6-14.4 H (BEAKER) (test code = 412) PLATELET COUNT (BEAKER) (test 249 K/CU MM 150-450 code = 756) MEAN PLATELET VOLUME (BEAKER) 9.3 fL 9.4-12.4 L (test code = 754) NUCLEATED RED BLOOD CELLS 0 /100 WBC 0-0 (BEAKER) (test code = 413) NEUTROPHILS RELATIVE PERCENT 76 % (BEAKER) (test code = 429) LYMPHOCYTES RELATIVE PERCENT 15 % (BEAKER) (test code = 430) MONOCYTES RELATIVE PERCENT 5 % (BEAKER) (test code = 431) EOSINOPHILS RELATIVE PERCENT 3 % (BEAKER) (test code = 432) BASOPHILS RELATIVE PERCENT 0 % (BEAKER) (test code = 437) NEUTROPHILS ABSOLUTE COUNT 4.91 K/ L 1.78-5.38 (BEAKER) (test code = 670) LYMPHOCYTES ABSOLUTE COUNT 0.95 K/ L 1.32-3.57 L (BEAKER) (test code = 414) MONOCYTES ABSOLUTE COUNT (BEAKER) 0.34 K/ L 0.30-0.82 (test code = 415) EOSINOPHILS ABSOLUTE COUNT 0.22 K/ L 0.04-0.54 (BEAKER) (test code = 416) BASOPHILS ABSOLUTE COUNT (BEAKER) 0.02 K/ L 0.01-0.08 (test code = 417) IMMATURE GRANULOCYTES-RELATIVE 1 % 0-1 PERCENT (BEAKER) (test code = 2801) BASIC METABOLIC [id number] 05:07:00 Test Item Value Reference Range Interpretation Comments SODIUM (BEAKER) 133 meq/L 136-145 L (test code = 381) POTASSIUM (BEAKER) 3.5 meq/L 3.5-5.1 (test code = 379) CHLORIDE (BEAKER) 95 meq/L 98-107 L (test code = 382) CO2 (BEAKER) (test 30 meq/L 22-29 H code = 355) BLOOD UREA NITROGEN 18 mg/dL 7-21 (BEAKER) (test code = 354) CREATININE (BEAKER) 1.16 mg/dL 0.57-1.25 (test code = 358) GLUCOSE RANDOM 131 mg/dL 70-105 H (BEAKER) (test code = 652) CALCIUM (BEAKER) 8.6 mg/dL 8.4-10.2 (test code = 697) EGFR (BEAKER) (test 67 mL/min/1.73 ESTIMA NEELA GFR IS code = 1092) sq m NOT ACCURATE CREATININE CLEARANCE IN PREDICTING GLOMERULAR FILTRATION RATE . ESTIMATED GFR I S NOT APPLICABLE FOR DIALYSIS PATIEN TS. Stitcher Hand ID - [id number] 05:07:00 Test Item Value Reference Range Interpretation Comments MAGNESIUM (BEAKER) (test code = 2.1 mg/dL 1.6-2.6 627) Stitcher Hand ID - [id number] 05:07:00 Test Item Value Reference Range Interpretation Comments PHOSPHORUS (BEAKER) (test code = 3.4 mg/dL 2.3-4.7 604) Stitcher Hand ID - EDASICBC W/PLT COUNT & AUTO [id number] 04:35:00 Test Item Value Reference Range Interpretation Comments WHITE BLOOD CELL COUNT (BEAKER) 8.4 K/ L 3.5-10.5 (test code = 775) RED BLOOD CELL COUNT (BEAKER) 3.24 M/ L 4.63-6.08 L (test code = 761) HEMOGLOBIN (BEAKER) (test code = 9.4 GM/DL 13.7-17.5 L 410) HEMATOCRIT (BEAKER) (test code = 30.6 % 40.1-51.0 L 411) MEAN CORPUSCULAR VOLUME (BEAKER) 94.4 fL 79.0-92.2 H (test code = 753) MEAN CORPUSCULAR HEMOGLOBIN 29.0 pg 25.7-32.2 (BEAKER) (test code = 751) MEAN CORPUSCULAR HEMOGLOBIN CONC 30.7 GM/DL 32.3-36.5 L (BEAKER) (test code = 752) RED CELL DISTRIBUTION WIDTH 15.8 % 11.6-14.4 H (BEAKER) (test code = 412) PLATELET COUNT (BEAKER) (test 262 K/CU MM 150-450 code = 756) MEAN PLATELET VOLUME (BEAKER) 9.2 fL 9.4-12.4 L (test code = 754) NUCLEATED RED BLOOD CELLS 0 /100 WBC 0-0 (BEAKER) (test code = 413) NEUTROPHILS RELATIVE PERCENT 76 % (BEAKER) (test code = 429) LYMPHOCYTES RELATIVE PERCENT 15 % (BEAKER) (test code = 430) MONOCYTES RELATIVE PERCENT 6 % (BEAKER) (test code = 431) EOSINOPHILS RELATIVE PERCENT 3 % (BEAKER) (test code = 432) BASOPHILS RELATIVE PERCENT 0 % (BEAKER) (test code = 437) NEUTROPHILS ABSOLUTE COUNT 6.33 K/ L 1.78-5.38 H (BEAKER) (test code = 670) LYMPHOCYTES ABSOLUTE COUNT 1.28 K/ L 1.32-3.57 L (BEAKER) (test code = 414) MONOCYTES ABSOLUTE COUNT (BEAKER) 0.48 K/ L 0.30-0.82 (test code = 415) EOSINOPHILS ABSOLUTE COUNT 0.22 K/ L 0.04-0.54 (BEAKER) (test code = 416) BASOPHILS ABSOLUTE COUNT (BEAKER) 0.03 K/ L 0.01-0.08 (test code = 417) IMMATURE GRANULOCYTES-RELATIVE 0 % 0-1 PERCENT (BEAKER) (test code = 2801) [id number] 08:33:00 Test Item Value Reference Range Interpretation Comments MAGNESIUM (BEAKER) 2.3 mg/dL 1.6-2.6 Specimen slightly (test code = 627) hemolyzed Stitcher Hand ID - SO [id number] 08:33:00 Test Item Value Reference Range Interpretation Comments PHOSPHORUS (BEAKER) 3.7 mg/dL 2.3-4.7 Specimen slightly (test code = 604) hemolyzed Stitcher Hand ID - SO MBASIC METABOLIC [id number] 08:33:00 Test Item Value Reference Range Interpretation Comments SODIUM (BEAKER) 130 meq/L 136-145 L (test code = 381) POTASSIUM (BEAKER) 3.9 meq/L 3.5-5.1 Specimen slightly (test code = 379) hemolyzed CHLORIDE (BEAKER) 93 meq/L 98-107 L (test code = 382) CO2 (BEAKER) (test 26 meq/L 22-29 code = 355) BLOOD UREA NITROGEN 18 mg/dL 7-21 (BEAKER) (test code = 354) CREATININE (BEAKER) 1.19 mg/dL 0.57-1.25 Specimen slightly (test code = 358) hemolyzed GLUCOSE RANDOM 150 mg/dL 70-105 H (BEAKER) (test code = 652) CALCIUM (BEAKER) 8.3 mg/dL 8.4-10.2 L (test code = 697) EGFR (BEAKER) (test 65 mL/min/1.73 ESTIMA NEELA GFR IS code = 1092) sq m NOT ACCURATE CREATININE CLEARANCE IN PREDICTING GLOMERULAR FILTRATION RATE . ESTIMATED GFR I S NOT APPLICABLE FOR DIALYSIS PATIEN TS. Stitcher Hand ID - SO MHEPATIC FUNCTION [id number] 08:33:00 Test Item Value Reference Range Interpretation Comments TOTAL PROTEIN (BEAKER) 6.8 gm/dL 6.0-8.3 Speci men slightly (test code = 770) hemolyzed ALBUMIN (BEAKER) (test 3.6 g/dL 3.5-5.0 Speci men slightly code = 1145) hemolyzed BILIRUBIN TOTAL 0.7 mg/dL 0.2-1.2 Specimen sli ghtly (BEAKER) (test code = hemoly zed 377) BILIRUBIN DIRECT 0.3 mg/dL 0.1-0.5 Specimen sl ightly (BEAKER) (test code = hemoly zed 706) ALKALINE PHOSPHATASE 73 U/L 40-150 (BEAKER) (test code = 346) AST (SGOT) (BEAKER) 15 U/L 5-34 Specimen slightly (test code = 353) hemolyzed ALT (SGPT) (BEAKER) 7 U/L 6-55 Specimen slightly (test code = 347) hemolyzed Stitcher Hand ID - SO [facility]BC W/PLT COUNT & AUTO [id number] 05:04:00 Test Item Value Reference Range Interpretation Comments WHITE BLOOD CELL COUNT (BEAKER) 7.1 K/ L 3.5-10.5 (test code = 775) RED BLOOD CELL COUNT (BEAKER) 3.11 M/ L 4.63-6.08 L (test code = 761) HEMOGLOBIN (BEAKER) (test code = 9.0 GM/DL 13.7-17.5 L 410) HEMATOCRIT (BEAKER) (test code = 29.1 % 40.1-51.0 L 411) MEAN CORPUSCULAR VOLUME (BEAKER) 93.6 fL 79.0-92.2 H (test code = 753) MEAN CORPUSCULAR HEMOGLOBIN 28.9 pg 25.7-32.2 (BEAKER) (test code = 751) MEAN CORPUSCULAR HEMOGLOBIN CONC 30.9 GM/DL 32.3-36.5 L (BEAKER) (test code = 752) RED CELL DISTRIBUTION WIDTH 15.8 % 11.6-14.4 H (BEAKER) (test code = 412) PLATELET COUNT (BEAKER) (test 235 K/CU MM 150-450 code = 756) MEAN PLATELET VOLUME (BEAKER) 9.4 fL 9.4-12.4 (test code = 754) NUCLEATED RED BLOOD CELLS 0 /100 WBC 0-0 (BEAKER) (test code = 413) NEUTROPHILS RELATIVE PERCENT 74 % (BEAKER) (test code = 429) LYMPHOCYTES RELATIVE PERCENT 17 % (BEAKER) (test code = 430) MONOCYTES RELATIVE PERCENT 5 % (BEAKER) (test code = 431) EOSINOPHILS RELATIVE PERCENT 4 % (BEAKER) (test code = 432) BASOPHILS RELATIVE PERCENT 0 % (BEAKER) (test code = 437) NEUTROPHILS ABSOLUTE COUNT 5.26 K/ L 1.78-5.38 (BEAKER) (test code = 670) LYMPHOCYTES ABSOLUTE COUNT 1.20 K/ L 1.32-3.57 L (BEAKER) (test code = 414) MONOCYTES ABSOLUTE COUNT (BEAKER) 0.36 K/ L 0.30-0.82 (test code = 415) EOSINOPHILS ABSOLUTE COUNT 0.25 K/ L 0.04-0.54 (BEAKER) (test code = 416) BASOPHILS ABSOLUTE COUNT (BEAKER) 0.01 K/ L 0.01-0.08 (test code = 417) IMMATURE GRANULOCYTES-RELATIVE 0 % 0-1 PERCENT (BEAKER) (test code = 2801) BASIC METABOLIC [id number] 16:28:00 Test Item Value Reference Range Interpretation Comments SODIUM (BEAKER) 136 meq/L 136-145 (test code = 381) POTASSIUM (BEAKER) 3.9 meq/L 3.5-5.1 (test code = 379) CHLORIDE (BEAKER) 94 meq/L 98-107 L (test code = 382) CO2 (BEAKER) (test 31 meq/L 22-29 H code = 355) BLOOD UREA NITROGEN 16 mg/dL 7-21 (BEAKER) (test code = 354) CREATININE (BEAKER) 1.16 mg/dL 0.57-1.25 (test code = 358) GLUCOSE RANDOM 122 mg/dL 70-105 H (BEAKER) (test code = 652) CALCIUM (BEAKER) 9.0 mg/dL 8.4-10.2 (test code = 697) EGFR (BEAKER) (test 67 mL/min/1.73 ESTIMA NEELA GFR IS code = 1092) sq m NOT ACCURATE CREATININE CLEARANCE IN PREDICTING GLOMERULAR FILTRATION RATE . ESTIMATED GFR I S NOT APPLICABLE FOR DIALYSIS PATIEN TS. Stitcher Hand ID - [id number] 16:28:00 Test Item Value Reference Range Interpretation Comments MAGNESIUM (BEAKER) (test code = 2.1 mg/dL 1.6-2.6 627) Stitcher Hand ID - BSB-TYPE NATRIURETIC FACTOR (BNP)2021-03-26 11:32:00 Test Item Value Reference Range Interpretation Comments B-TYPE NATRIURETIC PEPTIDE (BEAKER) 511 pg/mL 0-100 H (test code = 700) Stitcher Hand ID - SO MHEPATIC FUNCTION [id number] 11:09:00 Test Item Value Reference Range Interpretation Comments TOTAL PROTEIN (BEAKER) (test code = 7.0 gm/dL 6.0-8.3 770) ALBUMIN (BEAKER) (test code = 1145) 3.9 g/dL 3.5-5.0 BILIRUBIN TOTAL (BEAKER) (test code 1.0 mg/dL 0.2-1.2 = 377) BILIRUBIN DIRECT (BEAKER) (test 0.4 mg/dL 0.1-0.5 code = 706) ALKALINE PHOSPHATASE (BEAKER) (test 80 U/L 40-150 code = 346) AST (SGOT) (BEAKER) (test code = 13 U/L 5-34 353) ALT (SGPT) (BEAKER) (test code = 10 U/L 6-55 347) Stitcher Hand ID - SO MLACTATE DEHYDROGENASE (LDH)2021-03-26 11:09:00 Test Item Value Reference Range Interpretation Comments LACTATE DEHYDROGENASE (BEAKER) (test 285 U/L 125-220 H code = 635) Stitcher Hand ID - SO MPUL PERF IMAGING, [id number] 09:21:00Unlisted Reason for Exam - Click Yes and Enter Reason Below->Yes evaluate for pe Unlisted Reason for Exam->evaluate for pe [facility] : 1970 Sex: MFINAL REPORT PROCEDURE: LUNG SCAN - perfusion only CPT CODE: 08911 INDICATION: Acute, nonspecific chest pain R07.9, Evaluate for pulmonary embolism. PROTOCOL: 2.1 mCi of Tc-99m MAA was injected intravenously, and static perfusion images were obtained in multiple projections. Ventilation imaging was not performed due to COVID precautions. FINDINGS: Tracer distribution appears mildly heterogenous on oblique images. Moderately enlarged cardiac silhouette. There is a nonsegmental perfusion defect involving portions of the right upper lobe posterior segment and the right lower lobe superior segment. IMPRESSION: 1. Low probability of acute pulmonary embolization. Irregular parenchymal abnorma lity. 2. Moderately enlarged cardiac silhouette. Signed: Ag Sterling MDReport Verified Date/Time: 03/26/2021 09:21:22 Reading Location: [address] Reading Room BASIC METABOLIC [id number] 05:47:00 Test Item Value Reference Range Interpretation Comments SODIUM (BEAKER) 136 meq/L 136-145 (test code = 381) POTASSIUM (BEAKER) 3.9 meq/L 3.5-5.1 (test code = 379) CHLORIDE (BEAKER) 94 meq/L 98-107 L (test code = 382) CO2 (BEAKER) (test 32 meq/L 22-29 H code = 355) BLOOD UREA NITROGEN 17 mg/dL 7-21 (BEAKER) (test code = 354) CREATININE (BEAKER) 1.21 mg/dL 0.57-1.25 (test code = 358) GLUCOSE RANDOM 165 mg/dL 70-105 H (BEAKER) (test code = 652) CALCIUM (BEAKER) 8.8 mg/dL 8.4-10.2 (test code = 697) EGFR (BEAKER) (test 64 mL/min/1.73 ESTIMA NEELA GFR IS code = 1092) sq m NOT ACCURATE CREATININE CLEARANCE IN PREDICTING GLOMERULAR FILTRATION RATE . ESTIMATED GFR I S NOT APPLICABLE FOR DIALYSIS PATIEN TS. Stitcher Hand ID - SO [id number] 05:47:00 Test Item Value Reference Range Interpretation Comments MAGNESIUM (BEAKER) (test code = 1.7 mg/dL 1.6-2.6 627) Stitcher Hand ID - SO [id number] 05:47:00 Test Item Value Reference Range Interpretation Comments PHOSPHORUS (BEAKER) (test code = 4.0 mg/dL 2.3-4.7 604) Stitcher Hand ID - SO MCBC W/PLT COUNT & AUTO [id number] 05:31:00 Test Item Value Reference Range Interpretation Comments WHITE BLOOD CELL COUNT (BEAKER) 8.0 K/ L 3.5-10.5 (test code = 775) RED BLOOD CELL COUNT (BEAKER) 3.28 M/ L 4.63-6.08 L (test code = 761) HEMOGLOBIN (BEAKER) (test code = 9.5 GM/DL 13.7-17.5 L 410) HEMATOCRIT (BEAKER) (test code = 31.1 % 40.1-51.0 L 411) MEAN CORPUSCULAR VOLUME (BEAKER) 94.8 fL 79.0-92.2 H (test code = 753) MEAN CORPUSCULAR HEMOGLOBIN 29.0 pg 25.7-32.2 (BEAKER) (test code = 751) MEAN CORPUSCULAR HEMOGLOBIN CONC 30.5 GM/DL 32.3-36.5 L (BEAKER) (test code = 752) RED CELL DISTRIBUTION WIDTH 15.6 % 11.6-14.4 H (BEAKER) (test code = 412) PLATELET COUNT (BEAKER) (test 252 K/CU MM 150-450 code = 756) MEAN PLATELET VOLUME (BEAKER) 9.2 fL 9.4-12.4 L (test code = 754) NUCLEATED RED BLOOD CELLS 0 /100 WBC 0-0 (BEAKER) (test code = 413) NEUTROPHILS RELATIVE PERCENT 79 % (BEAKER) (test code = 429) LYMPHOCYTES RELATIVE PERCENT 13 % (BEAKER) (test code = 430) MONOCYTES RELATIVE PERCENT 4 % (BEAKER) (test code = 431) EOSINOPHILS RELATIVE PERCENT 3 % (BEAKER) (test code = 432) BASOPHILS RELATIVE PERCENT 0 % (BEAKER) (test code = 437) NEUTROPHILS ABSOLUTE COUNT 6.35 K/ L 1.78-5.38 H (BEAKER) (test code = 670) LYMPHOCYTES ABSOLUTE COUNT 1.07 K/ L 1.32-3.57 L (BEAKER) (test code = 414) MONOCYTES ABSOLUTE COUNT (BEAKER) 0.34 K/ L 0.30-0.82 (test code = 415) EOSINOPHILS ABSOLUTE COUNT 0.22 K/ L 0.04-0.54 (BEAKER) (test code = 416) BASOPHILS ABSOLUTE COUNT (BEAKER) 0.02 K/ L 0.01-0.08 (test code = 417) IMMATURE GRANULOCYTES-RELATIVE 0 % 0-1 PERCENT (BEAKER) (test code = 2801) LACTIC ACID, [id number] 10:19:00 Test Item Value Reference Range Interpretation Comments LACTATE BLOOD VENOUS 1.08 mmol/L 0.50-2.20 Specime n slightly (2) (BEAKER) (test hemolyzed code = 5673) Stitcher Hand ID - rmHIGH SENSITIVITY TROPONIN [id number] 08:30:00 Test Item Value Reference Range Interpretation Comments HIGH SENSITIVITY 45 pg/ml See_Comment H [Automated message] TROPONIN I (test code = The system which [id number]) generated this result transmitted ref erence range: <=35. Th e reference range was not used to int erpret this result as normal/abnormal . Stitcher Hand ID - SO MThe BEESWAX BLEACHER STAT High Sensitivity Troponin-I results should be used in conjunction with other diagnostic information such as ECG, clinical observations and information, and patient symptoms to aid in the diagnosis of PR.BASIC METABOLIC [id number] 06:47:00 Test Item Value Reference Range Interpretation Comments SODIUM (BEAKER) 136 meq/L 136-145 (test code = 381) POTASSIUM (BEAKER) 3.1 meq/L 3.5-5.1 L (test code = 379) CHLORIDE (BEAKER) 96 meq/L 98-107 L (test code = 382) CO2 (BEAKER) (test 31 meq/L 22-29 H code = 355) BLOOD UREA NITROGEN 15 mg/dL 7-21 (BEAKER) (test code = 354) CREATININE (BEAKER) 1.07 mg/dL 0.57-1.25 (test code = 358) GLUCOSE RANDOM 109 mg/dL 70-105 H (BEAKER) (test code = 652) CALCIUM (BEAKER) 9.0 mg/dL 8.4-10.2 (test code = 697) EGFR (BEAKER) (test 73 mL/min/1.73 ESTIMA NEELA GFR IS code = 1092) sq m NOT ACCURATE CREATININE CLEARANCE IN PREDICTING GLOMERULAR FILTRATION RATE . ESTIMATED GFR I S NOT APPLICABLE FOR DIALYSIS PATIEN TS. Stitcher Hand ID - SO [id number] 06:47:00 Test Item Value Reference Range Interpretation Comments MAGNESIUM (BEAKER) (test code = 1.7 mg/dL 1.6-2.6 627) Stitcher Hand ID - SO [id number] 06:47:00 Test Item Value Reference Range Interpretation Comments PHOSPHORUS (BEAKER) (test code = 4.0 mg/dL 2.3-4.7 604) Stitcher Hand ID - SO MCBC W/PLT COUNT & AUTO [id number] 04:09:00 Test Item Value Reference Range Interpretation Comments WHITE BLOOD CELL COUNT (BEAKER) 9.4 K/ L 3.5-10.5 (test code = 775) RED BLOOD CELL COUNT (BEAKER) 3.23 M/ L 4.63-6.08 L (test code = 761) HEMOGLOBIN (BEAKER) (test code = 9.3 GM/DL 13.7-17.5 L 410) HEMATOCRIT (BEAKER) (test code = 30.4 % 40.1-51.0 L 411) MEAN CORPUSCULAR VOLUME (BEAKER) 94.1 fL 79.0-92.2 H (test code = 753) MEAN CORPUSCULAR HEMOGLOBIN 28.8 pg 25.7-32.2 (BEAKER) (test code = 751) MEAN CORPUSCULAR HEMOGLOBIN CONC 30.6 GM/DL 32.3-36.5 L (BEAKER) (test code = 752) RED CELL DISTRIBUTION WIDTH 15.9 % 11.6-14.4 H (BEAKER) (test code = 412) PLATELET COUNT (BEAKER) (test 229 K/CU MM 150-450 code = 756) MEAN PLATELET VOLUME (BEAKER) 9.0 fL 9.4-12.4 L (test code = 754) NUCLEATED RED BLOOD CELLS 0 /100 WBC 0-0 (BEAKER) (test code = 413) NEUTROPHILS RELATIVE PERCENT 79 % (BEAKER) (test code = 429) LYMPHOCYTES RELATIVE PERCENT 13 % (BEAKER) (test code = 430) MONOCYTES RELATIVE PERCENT 5 % (BEAKER) (test code = 431) EOSINOPHILS RELATIVE PERCENT 2 % (BEAKER) (test code = 432) BASOPHILS RELATIVE PERCENT 0 % (BEAKER) (test code = 437) NEUTROPHILS ABSOLUTE COUNT 7.43 K/ L 1.78-5.38 H (BEAKER) (test code = 670) LYMPHOCYTES ABSOLUTE COUNT 1.26 K/ L 1.32-3.57 L (BEAKER) (test code = 414) MONOCYTES ABSOLUTE COUNT (BEAKER) 0.44 K/ L 0.30-0.82 (test code = 415) EOSINOPHILS ABSOLUTE COUNT 0.20 K/ L 0.04-0.54 (BEAKER) (test code = 416) BASOPHILS ABSOLUTE COUNT (BEAKER) 0.02 K/ L 0.01-0.08 (test code = 417) IMMATURE GRANULOCYTES-RELATIVE 0 % 0-1 PERCENT (BEAKER) (test code = 2801) RAD, CHEST, 1 VIEW, NON [id number] 00:01:00Reason for exam:->SHORTNESS OF BREATHShould this be performed at the bedside?->Yes [facility] : 1970 Sex: MFINAL REPORT RAD, CHEST, 1 VIEW, NON DEPT CLINICAL HISTORY: SHORTNESS OF BREATH TECHNIQUE: Single view of the chest. COMPARISON: March 07, 2021 IMPRESSION: Left chest AICD device. Right PICC tip overlies the SVC. Increased pulmonary interstitial opacities suggest worsening vascular congestion/mild pulmonary edema. Blunted costophrenic angles may represent basilar atelectasis but small pleural effusions not excluded. Stable prominent cardiac silhouette which is magnified by technique. Mediastinal contours are unremarkable. No pneumothorax. Stable osseous structures. Signed: Ky WoodwardMDReport Verified Date/Time: 03/25/2021 00:01:57 SARS-COV2/INFLUENZA/RSV [id number] 23:49:00 Test Item Value Reference Range Interpretation Comments SARS-COV2/RT-PCR Negative Negative (test code = 2617172) INFLUENZA A RT-PCR Negative Negative (test code = 1959135) INFLUENZA B RT-PCR Negative Negative (test code = 3054019) RSV RT-PCR (test Negative Negative Performance of the Xpert code = 3910756) Xpress SARS- CoV-2/Flu/RSV test has only b een established in nasopharyngeal swab specimens. Use of the Xpert Xpress SARS-CoV-2/Flu/ RSV test with other spec imen types has not been as sessed and performance characteristics are unknown. As wit h any molecular test, mutations within the targ eted genetic regions identified by t Xpert Xpress SARS-CoV -2/Flu/RSV test could affe ct primer and/or probe bi nding resulting in fa ilure to detect the pres ence of virus or the vi zachariah being detected less predictably.Neg ative results do not preclude SARS-CoV-2, Inf luenza A/B, or RSV inf ection and should not be u sed as the sole basis for treatment or other patien t management deci sions. Results from Xpert Xpress SARS-CoV -2/Flu/RSV test should be correlated with the clinic al history, epidem iological data, and other data available to clinician evalu ating the patient. Invali d test results may occ ur from improper specim en collection; shira lure to follow the lindy mmended sample collecti on, handling, and s torage procedures; tamara hnical error. False ne gative results may occ ur if virus is presen t at levels below e analytical limi t of detection (LOD: 131 copies/mL). Vir al nucleic acid may persis t in vivo, independent of virus viability. Dete ction of analyte target( s) does not imply that the corresponding v irus(es) are infectious or are the causative agent s for clinical sympto ms. Recent patient exposur e to Flu[facility]ist or othe r live attenuated infl uenza vaccines may ca use inaccurate posi tive results.This te st has been authorized by FDA under an EUA fo r use by authorized labo rataurelia. This test is on ly authorized for the duration of the declaration kem t circumstances e xist justifying the authorization o f emergency use o f in vitro diagnostic test s for detection and/o r diagnosis of CO VID-19 under Section 5 64(b)(1) of the Federal Food, Drug and Cosmetic Ac t, 21 U.S.C. 360bbb-3 (b)(1), unless the auth orization is terminated o r revoked sooner.Fact She et for Healthcare Prov iders: https://www.[employer]/D ocuments/Xpert% 20Xpress%2 9POJK-VwO-5-Flu -RSV/302-4 508%20Rev.%20B% 20HCP%20Fa ct%20Sheet.pdfF act Sheet for Healthcare Patients: https://www.[employer]/D ocuments/Xpert% 20Xpress%2 8TFHM-PbP-8-Flu -RSV/302- 507%20Rev.%20B% 20Patient% 20Fact%20Sheet. pdf HIGH SENSITIVITY TROPONIN [id number] 22:24:00 Test Item Value Reference Range Interpretation Comments HIGH SENSITIVITY 50 pg/ml See_Comment H [Automated message] TROPONIN I (test code = The system which [id number]) generated this result transmitted ref erence range: <=35. Th e reference range was not used to int erpret this result as normal/abnormal . Stitcher Hand ID - DBThe BEESWAX BLEACHER STAT High Sensitivity Troponin-I results should be used in conjunctionwith other diagnostic information such as ECG, clinical observations and information, and patient symptoms to aid in the diagnosis of PR.B-TYPE NATRIURETIC FACTOR (BNP)2021-03-24 22:24:00 Test Item Value Reference Range Interpretation Comments B-TYPE NATRIURETIC PEPTIDE (BEAKER) 969 pg/mL 0-100 H (test code = 700) Stitcher Hand ID - DBBASIC METABOLIC [id number] 22:17:00 Test Item Value Reference Range Interpretation Comments SODIUM (BEAKER) 139 meq/L 136-145 (test code = 381) POTASSIUM (BEAKER) 3.5 meq/L 3.5-5.1 Specimen slightly (test code = 379) hemolyzed CHLORIDE (BEAKER) 96 meq/L 98-107 L (test code = 382) CO2 (BEAKER) (test 29 meq/L 22-29 code = 355) BLOOD UREA NITROGEN 14 mg/dL 7-21 (BEAKER) (test code = 354) CREATININE (BEAKER) 0.97 mg/dL 0.57-1.25 Specimen slightly (test code = 358) hemolyzed GLUCOSE RANDOM 117 mg/dL 70-105 H (BEAKER) (test code = 652) CALCIUM (BEAKER) 9.4 mg/dL 8.4-10.2 (test code = 697) EGFR (BEAKER) (test 82 mL/min/1.73 ESTIMA NEELA GFR IS code = 1092) sq m NOT ACCURATE CREATININE CLEARANCE IN PREDICTING GLOMERULAR FILTRATION RATE . ESTIMATED GFR I S NOT APPLICABLE FOR DIALYSIS PATIEN TS. Stitcher Hand ID - DBCBC W/PLT COUNT & AUTO [id number] 22:13:00 Test Item Value Reference Range Interpretation Comments WHITE BLOOD CELL COUNT (BEAKER) 9.7 K/ L 3.5-10.5 (test code = 775) RED BLOOD CELL COUNT (BEAKER) 3.50 M/ L 4.63-6.08 L (test code = 761) HEMOGLOBIN (BEAKER) (test code = 10.1 GM/DL 13.7-17.5 L 410) HEMATOCRIT (BEAKER) (test code = 32.5 % 40.1-51.0 L 411) MEAN CORPUSCULAR VOLUME (BEAKER) 92.9 fL 79.0-92.2 H (test code = 753) MEAN CORPUSCULAR HEMOGLOBIN 28.9 pg 25.7-32.2 (BEAKER) (test code = 751) MEAN CORPUSCULAR HEMOGLOBIN CONC 31.1 GM/DL 32.3-36.5 L (BEAKER) (test code = 752) RED CELL DISTRIBUTION WIDTH 15.9 % 11.6-14.4 H (BEAKER) (test code = 412) PLATELET COUNT (BEAKER) (test 269 K/CU MM 150-450 code = 756) MEAN PLATELET VOLUME (BEAKER) 9.0 fL 9.4-12.4 L (test code = 754) NUCLEATED RED BLOOD CELLS 0 /100 WBC 0-0 (BEAKER) (test code = 413) NEUTROPHILS RELATIVE PERCENT 81 % (BEAKER) (test code = 429) LYMPHOCYTES RELATIVE PERCENT 12 % (BEAKER) (test code = 430) MONOCYTES RELATIVE PERCENT 5 % (BEAKER) (test code = 431) EOSINOPHILS RELATIVE PERCENT 1 % (BEAKER) (test code = 432) BASOPHILS RELATIVE PERCENT 0 % (BEAKER) (test code = 437) NEUTROPHILS ABSOLUTE COUNT 7.80 K/ L 1.78-5.38 H (BEAKER) (test code = 670) LYMPHOCYTES ABSOLUTE COUNT 1.18 K/ L 1.32-3.57 L (BEAKER) (test code = 414) MONOCYTES ABSOLUTE COUNT (BEAKER) 0.49 K/ L 0.30-0.82 (test code = 415) EOSINOPHILS ABSOLUTE COUNT 0.14 K/ L 0.04-0.54 (BEAKER) (test code = 416) BASOPHILS ABSOLUTE COUNT (BEAKER) 0.02 K/ L 0.01-0.08 (test code = 417) IMMATURE GRANULOCYTES-RELATIVE 1 % 0-1 PERCENT (BEAKER) (test code = 2801) [id number] 22:07:00 Test Item Value Reference Range Interpretation Comments PROTIME (BEAKER) (test 15.0 seconds 11.9-14.2 H code = 759) INR (BEAKER) (test 1.20 See_Comment [Automat ed code = 370) message] The sy stem which generated this result transmitted reference range : <=5.90. The reference range was not used to interpret this result as normal/abnormal . PARTIAL THROMBOPLASTIN 35.8 seconds 22.5-36.0 TIME (BEAKER) (test code = 760) RECOMMENDED COUMADIN/WARFARIN INR THERAPY RANGESSTANDARD DOSE: 2.0 - 3.0 Includes: PROPHYLAXIS for venous thrombosis, systemic embolization; TREATMENT for venous thrombosis and/or pulmonary embolus.HIGH RISK: Target INR is 2.5-3.5 for patients with mechanical heart valves.BASIC METABOLIC [id number] 04:10:00 Test Item Value Reference Range Interpretation Comments SODIUM (BEAKER) 129 meq/L 136-145 L (test code = 381) POTASSIUM (BEAKER) 3.8 meq/L 3.5-5.1 (test code = 379) CHLORIDE (BEAKER) 93 meq/L 98-107 L (test code = 382) CO2 (BEAKER) (test 28 meq/L 22-29 code = 355) BLOOD UREA NITROGEN 20 mg/dL 7-21 (BEAKER) (test code = 354) CREATININE (BEAKER) 1.01 mg/dL 0.57-1.25 (test code = 358) GLUCOSE RANDOM 129 mg/dL 70-105 H (BEAKER) (test code = 652) CALCIUM (BEAKER) 8.6 mg/dL 8.4-10.2 (test code = 697) EGFR (BEAKER) (test 79 mL/min/1.73 ESTIMA NEELA GFR IS code = 1092) sq m NOT ACCURATE CREATININE CLEARANCE IN PREDICTING GLOMERULAR FILTRATION RATE . ESTIMATED GFR I S NOT APPLICABLE FOR DIALYSIS PATIEN TS. Stitcher Hand ID - [id number] 04:10:00 Test Item Value Reference Range Interpretation Comments MAGNESIUM (BEAKER) (test code = 1.8 mg/dL 1.6-2.6 627) Stitcher Hand ID - EDASICBC (HEMOGRAM ONLY)2021-03-14 03:46:00 Test Item Value Reference Range Interpretation Comments WHITE BLOOD CELL COUNT (BEAKER) 9.4 K/ L 3.5-10.5 (test code = 775) RED BLOOD CELL COUNT (BEAKER) 2.94 M/ L 4.63-6.08 L (test code = 761) HEMOGLOBIN (BEAKER) (test code = 8.7 GM/DL 13.7-17.5 L 410) HEMATOCRIT (BEAKER) (test code = 27.5 % 40.1-51.0 L 411) MEAN CORPUSCULAR VOLUME (BEAKER) 93.5 fL 79.0-92.2 H (test code = 753) MEAN CORPUSCULAR HEMOGLOBIN 29.6 pg 25.7-32.2 (BEAKER) (test code = 751) MEAN CORPUSCULAR HEMOGLOBIN CONC 31.6 GM/DL 32.3-36.5 L (BEAKER) (test code = 752) RED CELL DISTRIBUTION WIDTH 15.5 % 11.6-14.4 H (BEAKER) (test code = 412) PLATELET COUNT (BEAKER) (test 241 K/CU MM 150-450 code = 756) MEAN PLATELET VOLUME (BEAKER) 9.4 fL 9.4-12.4 (test code = 754) NUCLEATED RED BLOOD CELLS 0 /100 WBC 0-0 (BEAKER) (test code = 413) BASIC METABOLIC [id number] 05:15:00 Test Item Value Reference Range Interpretation Comments SODIUM (BEAKER) 129 meq/L 136-145 L (test code = 381) POTASSIUM (BEAKER) 4.3 meq/L 3.5-5.1 (test code = 379) CHLORIDE (BEAKER) 93 meq/L 98-107 L (test code = 382) CO2 (BEAKER) (test 26 meq/L 22-29 code = 355) BLOOD UREA NITROGEN 23 mg/dL 7-21 H (BEAKER) (test code = 354) CREATININE (BEAKER) 1.08 mg/dL 0.57-1.25 (test code = 358) GLUCOSE RANDOM 109 mg/dL 70-105 H (BEAKER) (test code = 652) CALCIUM (BEAKER) 8.7 mg/dL 8.4-10.2 (test code = 697) EGFR (BEAKER) (test 73 mL/min/1.73 ESTIMA NEELA GFR IS code = 1092) sq m NOT ACCURATE CREATININE CLEARANCE IN PREDICTING GLOMERULAR FILTRATION RATE . ESTIMATED GFR I S NOT APPLICABLE FOR DIALYSIS PATIEN TS. Stitcher Hand ID - SO [id number] 05:15:00 Test Item Value Reference Range Interpretation Comments MAGNESIUM (BEAKER) (test code = 2.0 mg/dL 1.6-2.6 627) Stitcher Hand ID - SO MCBC (HEMOGRAM ONLY)2021-03-13 04:45:00 Test Item Value Reference Range Interpretation Comments WHITE BLOOD CELL COUNT (BEAKER) 10.6 K/ L 3.5-10.5 H (test code = 775) RED BLOOD CELL COUNT (BEAKER) 3.31 M/ L 4.63-6.08 L (test code = 761) HEMOGLOBIN (BEAKER) (test code = 9.7 GM/DL 13.7-17.5 L 410) HEMATOCRIT (BEAKER) (test code = 31.0 % 40.1-51.0 L 411) MEAN CORPUSCULAR VOLUME (BEAKER) 93.7 fL 79.0-92.2 H (test code = 753) MEAN CORPUSCULAR HEMOGLOBIN 29.3 pg 25.7-32.2 (BEAKER) (test code = 751) MEAN CORPUSCULAR HEMOGLOBIN CONC 31.3 GM/DL 32.3-36.5 L (BEAKER) (test code = 752) RED CELL DISTRIBUTION WIDTH 15.5 % 11.6-14.4 H (BEAKER) (test code = 412) PLATELET COUNT (BEAKER) (test 267 K/CU MM 150-450 code = 756) MEAN PLATELET VOLUME (BEAKER) 9.4 fL 9.4-12.4 (test code = 754) NUCLEATED RED BLOOD CELLS 0 /100 WBC 0-0 (BEAKER) (test code = 413) BASIC METABOLIC [id number] 17:48:00 Test Item Value Reference Range Interpretation Comments SODIUM (BEAKER) 125 meq/L 136-145 L (test code = 381) POTASSIUM (BEAKER) 4.1 meq/L 3.5-5.1 (test code = 379) CHLORIDE (BEAKER) 90 meq/L 98-107 L (test code = 382) CO2 (BEAKER) (test 24 meq/L 22-29 code = 355) BLOOD UREA NITROGEN 23 mg/dL 7-21 H (BEAKER) (test code = 354) CREATININE (BEAKER) 1.24 mg/dL 0.57-1.25 (test code = 358) GLUCOSE RANDOM 255 mg/dL 70-105 H (BEAKER) (test code = 652) CALCIUM (BEAKER) 8.6 mg/dL 8.4-10.2 (test code = 697) EGFR (BEAKER) (test 62 mL/min/1.73 ESTIMA NEELA GFR IS code = 1092) sq m NOT ACCURATE CREATININE CLEARANCE IN PREDICTING GLOMERULAR FILTRATION RATE . ESTIMATED GFR I S NOT APPLICABLE FOR DIALYSIS PATIEN TS. Stitcher Hand ID - BSBASIC METABOLIC [id number] 04:50:00 Test Item Value Reference Range Interpretation Comments SODIUM (BEAKER) 131 meq/L 136-145 L (test code = 381) POTASSIUM (BEAKER) 4.3 meq/L 3.5-5.1 (test code = 379) CHLORIDE (BEAKER) 93 meq/L 98-107 L (test code = 382) CO2 (BEAKER) (test 28 meq/L 22-29 code = 355) BLOOD UREA NITROGEN 23 mg/dL 7-21 H (BEAKER) (test code = 354) CREATININE (BEAKER) 1.23 mg/dL 0.57-1.25 (test code = 358) GLUCOSE RANDOM 109 mg/dL 70-105 H (BEAKER) (test code = 652) CALCIUM (BEAKER) 9.0 mg/dL 8.4-10.2 (test code = 697) EGFR (BEAKER) (test 63 mL/min/1.73 ESTIMA NEELA GFR IS code = 1092) sq m NOT ACCURATE CREATININE CLEARANCE IN PREDICTING GLOMERULAR FILTRATION RATE . ESTIMATED GFR I S NOT APPLICABLE FOR DIALYSIS PATIEN TS. Stitcher Hand ID - [id number] 04:39:00 Test Item Value Reference Range Interpretation Comments MAGNESIUM (BEAKER) (test code = 2.3 mg/dL 1.6-2.6 627) Stitcher Hand ID - [id number] (HEMOGRAM ONLY)[id number] 04:20:00 Test Item Value Reference Range Interpretation Comments WHITE BLOOD CELL COUNT (BEAKER) 11.3 K/ L 3.5-10.5 H (test code = 775) RED BLOOD CELL COUNT (BEAKER) 3.42 M/ L 4.63-6.08 L (test code = 761) HEMOGLOBIN (BEAKER) (test code = 10.0 GM/DL 13.7-17.5 L 410) HEMATOCRIT (BEAKER) (test code = 31.9 % 40.1-51.0 L 411) MEAN CORPUSCULAR VOLUME (BEAKER) 93.3 fL 79.0-92.2 H (test code = 753) MEAN CORPUSCULAR HEMOGLOBIN 29.2 pg 25.7-32.2 (BEAKER) (test code = 751) MEAN CORPUSCULAR HEMOGLOBIN CONC 31.3 GM/DL 32.3-36.5 L (BEAKER) (test code = 752) RED CELL DISTRIBUTION WIDTH 15.5 % 11.6-14.4 H (BEAKER) (test code = 412) PLATELET COUNT (BEAKER) (test 258 K/CU MM 150-450 code = 756) MEAN PLATELET VOLUME (BEAKER) 9.2 fL 9.4-12.4 L (test code = 754) NUCLEATED RED BLOOD CELLS 0 /100 WBC 0-0 (BEAKER) (test code = 413) BASIC METABOLIC [id number] 17:07:00 Test Item Value Reference Range Interpretation Comments SODIUM (BEAKER) 123 meq/L 136-145 L (test code = 381) POTASSIUM (BEAKER) 3.8 meq/L 3.5-5.1 (test code = 379) CHLORIDE (BEAKER) 85 meq/L 98-107 L (test code = 382) CO2 (BEAKER) (test 30 meq/L 22-29 H code = 355) BLOOD UREA NITROGEN 24 mg/dL 7-21 H (BEAKER) (test code = 354) CREATININE (BEAKER) 1.15 mg/dL 0.57-1.25 (test code = 358) GLUCOSE RANDOM 245 mg/dL 70-105 H (BEAKER) (test code = 652) CALCIUM (BEAKER) 9.2 mg/dL 8.4-10.2 (test code = 697) EGFR (BEAKER) (test 68 mL/min/1.73 ESTIMA NEELA GFR IS code = 1092) sq m NOT ACCURATE CREATININE CLEARANCE IN PREDICTING GLOMERULAR FILTRATION RATE . ESTIMATED GFR I S NOT APPLICABLE FOR DIALYSIS PATIEN TS. Stitcher Hand ID - BSBASI METABOLIC [id number] 05:58:00 Test Item Value Reference Range Interpretation Comments SODIUM (BEAKER) 127 meq/L 136-145 L (test code = 381) POTASSIUM (BEAKER) 4.2 meq/L 3.5-5.1 (test code = 379) CHLORIDE (BEAKER) 90 meq/L 98-107 L (test code = 382) CO2 (BEAKER) (test 26 meq/L 22-29 code = 355) BLOOD UREA NITROGEN 25 mg/dL 7-21 H (BEAKER) (test code = 354) CREATININE (BEAKER) 1.14 mg/dL 0.57-1.25 (test code = 358) GLUCOSE RANDOM 124 mg/dL 70-105 H (BEAKER) (test code = 652) CALCIUM (BEAKER) 9.5 mg/dL 8.4-10.2 (test code = 697) EGFR (BEAKER) (test 68 mL/min/1.73 ESTIMA NEELA GFR IS code = 1092) sq m NOT ACCURATE CREATININE CLEARANCE IN PREDICTING GLOMERULAR FILTRATION RATE . ESTIMATED GFR I S NOT APPLICABLE FOR DIALYSIS PATIEN TS. Stitcher Hand ID - SO [id number] 05:58:00 Test Item Value Reference Range Interpretation Comments MAGNESIUM (BEAKER) (test code = 2.0 mg/dL 1.6-2.6 627) Stitcher Hand ID - SO [id number] 05:40:00 Test Item Value Reference Range Interpretation Comments PARTIAL THROMBOPLASTIN TIME 33.5 seconds 22.5-36.0 (BEAKER) (test code = 760) CBC (HEMOGRAM ONLY)2021-03-11 05:15:00 Test Item Value Reference Range Interpretation Comments WHITE BLOOD CELL COUNT (BEAKER) 12.7 K/ L 3.5-10.5 H (test code = 775) RED BLOOD CELL COUNT (BEAKER) 3.67 M/ L 4.63-6.08 L (test code = 761) HEMOGLOBIN (BEAKER) (test code = 10.8 GM/DL 13.7-17.5 L 410) HEMATOCRIT (BEAKER) (test code = 33.9 % 40.1-51.0 L 411) MEAN CORPUSCULAR VOLUME (BEAKER) 92.4 fL 79.0-92.2 H (test code = 753) MEAN CORPUSCULAR HEMOGLOBIN 29.4 pg 25.7-32.2 (BEAKER) (test code = 751) MEAN CORPUSCULAR HEMOGLOBIN CONC 31.9 GM/DL 32.3-36.5 L (BEAKER) (test code = 752) RED CELL DISTRIBUTION WIDTH 15.4 % 11.6-14.4 H (BEAKER) (test code = 412) PLATELET COUNT (BEAKER) (test 282 K/CU MM 150-450 code = 756) MEAN PLATELET VOLUME (BEAKER) 9.6 fL 9.4-12.4 (test code = 754) NUCLEATED RED BLOOD CELLS 0 /100 WBC 0-0 (BEAKER) (test code = 413) [id number] 10:38:00 Test Item Value Reference Range Interpretation Comments PARTIAL THROMBOPLASTIN TIME 67.2 seconds 22.5-36.0 H (BEAKER) (test code = 760) BASIC METABOLIC [id number] 04:33:00 Test Item Value Reference Range Interpretation Comments SODIUM (BEAKER) 129 meq/L 136-145 L (test code = 381) POTASSIUM (BEAKER) 4.0 meq/L 3.5-5.1 (test code = 379) CHLORIDE (BEAKER) 89 meq/L 98-107 L (test code = 382) CO2 (BEAKER) (test 27 meq/L 22-29 code = 355) BLOOD UREA NITROGEN 23 mg/dL 7-21 H (BEAKER) (test code = 354) CREATININE (BEAKER) 1.15 mg/dL 0.57-1.25 (test code = 358) GLUCOSE RANDOM 118 mg/dL 70-105 H (BEAKER) (test code = 652) CALCIUM (BEAKER) 9.7 mg/dL 8.4-10.2 (test code = 697) EGFR (BEAKER) (test 68 mL/min/1.73 ESTIMA NEELA GFR IS code = 1092) sq m NOT ACCURATE CREATININE CLEARANCE IN PREDICTING GLOMERULAR FILTRATION RATE . ESTIMATED GFR I S NOT APPLICABLE FOR DIALYSIS PATIEN TS. Stitcher Hand ID - SO [id number] 04:19:00 Test Item Value Reference Range Interpretation Comments PARTIAL THROMBOPLASTIN TIME 64.3 seconds 22.5-36.0 H (BEAKER) (test code = 760) CBC (HEMOGRAM ONLY)2021-03-10 04:05:00 Test Item Value Reference Range Interpretation Comments WHITE BLOOD CELL COUNT (BEAKER) 12.5 K/ L 3.5-10.5 H (test code = 775) RED BLOOD CELL COUNT (BEAKER) 3.67 M/ L 4.63-6.08 L (test code = 761) HEMOGLOBIN (BEAKER) (test code = 10.7 GM/DL 13.7-17.5 L 410) HEMATOCRIT (BEAKER) (test code = 32.8 % 40.1-51.0 L 411) MEAN CORPUSCULAR VOLUME (BEAKER) 89.4 fL 79.0-92.2 (test code = 753) MEAN CORPUSCULAR HEMOGLOBIN 29.2 pg 25.7-32.2 (BEAKER) (test code = 751) MEAN CORPUSCULAR HEMOGLOBIN CONC 32.6 GM/DL 32.3-36.5 (BEAKER) (test code = 752) RED CELL DISTRIBUTION WIDTH 15.3 % 11.6-14.4 H (BEAKER) (test code = 412) PLATELET COUNT (BEAKER) (test 275 K/CU MM 150-450 code = 756) MEAN PLATELET VOLUME (BEAKER) 9.5 fL 9.4-12.4 (test code = 754) NUCLEATED RED BLOOD CELLS 0 /100 WBC 0-0 (BEAKER) (test code = 413) [id number] 21:02:00 Test Item Value Reference Range Interpretation Comments PARTIAL THROMBOPLASTIN TIME 51.5 seconds 22.5-36.0 H (BEAKER) (test code = 760) BASIC METABOLIC [id number] 17:22:00 Test Item Value Reference Range Interpretation Comments SODIUM (BEAKER) 131 meq/L 136-145 L (test code = 381) POTASSIUM (BEAKER) 4.2 meq/L 3.5-5.1 (test code = 379) CHLORIDE (BEAKER) 90 meq/L 98-107 L (test code = 382) CO2 (BEAKER) (test 29 meq/L 22-29 code = 355) BLOOD UREA NITROGEN 25 mg/dL 7-21 H (BEAKER) (test code = 354) CREATININE (BEAKER) 1.24 mg/dL 0.57-1.25 (test code = 358) GLUCOSE RANDOM 169 mg/dL 70-105 H (BEAKER) (test code = 652) CALCIUM (BEAKER) 9.4 mg/dL 8.4-10.2 (test code = 697) EGFR (BEAKER) (test 62 mL/min/1.73 ESTIMA NEELA GFR IS code = 1092) sq m NOT ACCURATE CREATININE CLEARANCE IN PREDICTING GLOMERULAR FILTRATION RATE . ESTIMATED GFR I S NOT APPLICABLE FOR DIALYSIS PATIEN TS. Stitcher Hand ID - [id number] 12:32:00 Test Item Value Reference Range Interpretation Comments PARTIAL THROMBOPLASTIN TIME 35.4 seconds 22.5-36.0 (BEAKER) (test code = 760) [id number] 05:33:00 Test Item Value Reference Range Interpretation Comments PARTIAL THROMBOPLASTIN TIME 32.2 seconds 22.5-36.0 (BEAKER) (test code = 760) [id number] 03:49:00 Test Item Value Reference Range Interpretation Comments PARTIAL THROMBOPLASTIN TIME > seconds 22.5-36.0 HH (BEAKER) (test code = 760) BASIC METABOLIC [id number] 02:25:00 Test Item Value Reference Range Interpretation Comments SODIUM (BEAKER) 130 meq/L 136-145 L (test code = 381) POTASSIUM (BEAKER) 3.9 meq/L 3.5-5.1 (test code = 379) CHLORIDE (BEAKER) 89 meq/L 98-107 L (test code = 382) CO2 (BEAKER) (test 29 meq/L 22-29 code = 355) BLOOD UREA NITROGEN 23 mg/dL 7-21 H (BEAKER) (test code = 354) CREATININE (BEAKER) 1.18 mg/dL 0.57-1.25 (test code = 358) GLUCOSE RANDOM 144 mg/dL 70-105 H (BEAKER) (test code = 652) CALCIUM (BEAKER) 9.4 mg/dL 8.4-10.2 (test code = 697) EGFR (BEAKER) (test 66 mL/min/1.73 ESTIMA NEELA GFR IS code = 1092) sq m NOT ACCURATE CREATININE CLEARANCE IN PREDICTING GLOMERULAR FILTRATION RATE . ESTIMATED GFR I S NOT APPLICABLE FOR DIALYSIS PATIEN TS. Stitcher Hand ID - SO [facility] (HEMOGRAM ONLY)2021-03-09 02:05:00 Test Item Value Reference Range Interpretation Comments WHITE BLOOD CELL COUNT (BEAKER) 11.0 K/ L 3.5-10.5 H (test code = 775) RED BLOOD CELL COUNT (BEAKER) 3.54 M/ L 4.63-6.08 L (test code = 761) HEMOGLOBIN (BEAKER) (test code = 10.3 GM/DL 13.7-17.5 L 410) HEMATOCRIT (BEAKER) (test code = 31.6 % 40.1-51.0 L 411) MEAN CORPUSCULAR VOLUME (BEAKER) 89.3 fL 79.0-92.2 (test code = 753) MEAN CORPUSCULAR HEMOGLOBIN 29.1 pg 25.7-32.2 (BEAKER) (test code = 751) MEAN CORPUSCULAR HEMOGLOBIN CONC 32.6 GM/DL 32.3-36.5 (BEAKER) (test code = 752) RED CELL DISTRIBUTION WIDTH 15.2 % 11.6-14.4 H (BEAKER) (test code = 412) PLATELET COUNT (BEAKER) (test 233 K/CU MM 150-450 code = 756) MEAN PLATELET VOLUME (BEAKER) 9.4 fL 9.4-12.4 (test code = 754) NUCLEATED RED BLOOD CELLS 0 /100 WBC 0-0 (BEAKER) (test code = 413) BASIC METABOLIC [id number] 19:17:00 Test Item Value Reference Range Interpretation Comments SODIUM (BEAKER) 128 meq/L 136-145 L (test code = 381) POTASSIUM (BEAKER) 3.7 meq/L 3.5-5.1 (test code = 379) CHLORIDE (BEAKER) 87 meq/L 98-107 L (test code = 382) CO2 (BEAKER) (test 28 meq/L 22-29 code = 355) BLOOD UREA NITROGEN 22 mg/dL 7-21 H (BEAKER) (test code = 354) CREATININE (BEAKER) 1.14 mg/dL 0.57-1.25 (test code = 358) GLUCOSE RANDOM 143 mg/dL 70-105 H (BEAKER) (test code = 652) CALCIUM (BEAKER) 9.4 mg/dL 8.4-10.2 (test code = 697) EGFR (BEAKER) (test 68 mL/min/1.73 ESTIMA NEELA GFR IS code = 1092) sq m NOT ACCURATE CREATININE CLEARANCE IN PREDICTING GLOMERULAR FILTRATION RATE . ESTIMATED GFR I S NOT APPLICABLE FOR DIALYSIS PATIEN TS. Stitcher Hand ID - [id number] 19:09:00 Test Item Value Reference Range Interpretation Comments PARTIAL THROMBOPLASTIN TIME 31.0 seconds 22.5-36.0 (BEAKER) (test code = 760) [id number] 11:04:00 Test Item Value Reference Range Interpretation Comments PARTIAL THROMBOPLASTIN TIME 37.0 seconds 22.5-36.0 H (BEAKER) (test code = 760) BASIC METABOLIC [id number] 04:22:00 Test Item Value Reference Range Interpretation Comments SODIUM (BEAKER) 126 meq/L 136-145 L (test code = 381) POTASSIUM (BEAKER) 4.2 meq/L 3.5-5.1 (test code = 379) CHLORIDE (BEAKER) 88 meq/L 98-107 L (test code = 382) CO2 (BEAKER) (test 26 meq/L 22-29 code = 355) BLOOD UREA NITROGEN 24 mg/dL 7-21 H (BEAKER) (test code = 354) CREATININE (BEAKER) 1.07 mg/dL 0.57-1.25 (test code = 358) GLUCOSE RANDOM 118 mg/dL 70-105 H (BEAKER) (test code = 652) CALCIUM (BEAKER) 9.2 mg/dL 8.4-10.2 (test code = 697) EGFR (BEAKER) (test 73 mL/min/1.73 ESTIMA NEELA GFR IS code = 1092) sq m NOT ACCURATE CREATININE CLEARANCE IN PREDICTING GLOMERULAR FILTRATION RATE . ESTIMATED GFR I S NOT APPLICABLE FOR DIALYSIS PATIEN TS. Stitcher Hand ID - SO [facility] [place] (HEMOGRAM ONLY)2021-03-08 03:59:00 Test Item Value Reference Range Interpretation Comments WHITE BLOOD CELL COUNT (BEAKER) 10.5 K/ L 3.5-10.5 (test code = 775) RED BLOOD CELL COUNT (BEAKER) 3.35 M/ L 4.63-6.08 L (test code = 761) HEMOGLOBIN (BEAKER) (test code = 9.8 GM/DL 13.7-17.5 L 410) HEMATOCRIT (BEAKER) (test code = 30.2 % 40.1-51.0 L 411) MEAN CORPUSCULAR VOLUME (BEAKER) 90.1 fL 79.0-92.2 (test code = 753) MEAN CORPUSCULAR HEMOGLOBIN 29.3 pg 25.7-32.2 (BEAKER) (test code = 751) MEAN CORPUSCULAR HEMOGLOBIN CONC 32.5 GM/DL 32.3-36.5 (BEAKER) (test code = 752) RED CELL DISTRIBUTION WIDTH 15.7 % 11.6-14.4 H (BEAKER) (test code = 412) PLATELET COUNT (BEAKER) (test 245 K/CU MM 150-450 code = 756) MEAN PLATELET VOLUME (BEAKER) 9.4 fL 9.4-12.4 (test code = 754) NUCLEATED RED BLOOD CELLS 0 /100 WBC 0-0 (BEAKER) (test code = 413) [id number] 00:59:00 Test Item Value Reference Range Interpretation Comments PARTIAL THROMBOPLASTIN TIME 33.1 seconds 22.5-36.0 (BEAKER) (test code = 760) RAD, CHEST, 1 VIEW, NON [id number] 18:13:00Reason for exam:->post picc line insertionShould this be performed at the bedside?->Yes [facility] 1970 Sex: MFINAL REPORT TECHNIQUE: Frontal view of the chest. INDICATION: post picc line insertion COMPARISON:03/03/2021 DISCUSSION:Limited evaluation due to portable technique. Lines and hardware: Interval placement of right upper extremity PICC with tip projecting at the mid SVC. Stable left upper chest triple lead ICD. Overlying EKG leads are noted.Heart and mediastinum: Stable cardiac megaly and central vascular congestion.Lungs and pleura: Stable diffuse interstitial prominence with trace righteffusion. Negative for large pneumothorax. Negative for left effusion.Soft tissues and bones: No acute abnormality. IMPRESSION: 1. Right upper extremity PICC noted with tip projecting at the mid SVC.2.Stable cardiomegaly, vascular congestive changes, mild pulmonary edema and trace right effusion. Signed: Aki Herrera MDReport Verified Date/Time: 03/07/2021 18:13:42 Reading Location: [address] Consult Reading Room C METABOLIC [id number] 16:03:00 Test Item Value Reference Range Interpretation Comments SODIUM (BEAKER) 127 meq/L 136-145 L (test code = 381) POTASSIUM (BEAKER) 4.8 meq/L 3.5-5.1 (test code = 379) CHLORIDE (BEAKER) 91 meq/L 98-107 L (test code = 382) CO2 (BEAKER) (test 28 meq/L 22-29 code = 355) BLOOD UREA NITROGEN 21 mg/dL 7-21 (BEAKER) (test code = 354) CREATININE (BEAKER) 1.05 mg/dL 0.57-1.25 (test code = 358) GLUCOSE RANDOM 116 mg/dL 70-105 H (BEAKER) (test code = 652) CALCIUM (BEAKER) 9.3 mg/dL 8.4-10.2 (test code = 697) EGFR (BEAKER) (test 75 mL/min/1.73 ESTIMA NEELA GFR IS code = 1092) sq m NOT ACCURATE CREATININE CLEARANCE IN PREDICTING GLOMERULAR FILTRATION RATE . ESTIMATED GFR I S NOT APPLICABLE FOR DIALYSIS PATIEN TS. Stitcher Hand ID - DBBASIC METABOLIC [id number] 09:23:00 Test Item Value Reference Range Interpretation Comments SODIUM (BEAKER) 127 meq/L 136-145 L (test code = 381) POTASSIUM (BEAKER) 4.0 meq/L 3.5-5.1 (test code = 379) CHLORIDE (BEAKER) 89 meq/L 98-107 L (test code = 382) CO2 (BEAKER) (test 30 meq/L 22-29 H code = 355) BLOOD UREA NITROGEN 21 mg/dL 7-21 (BEAKER) (test code = 354) CREATININE (BEAKER) 1.01 mg/dL 0.57-1.25 (test code = 358) GLUCOSE RANDOM 111 mg/dL 70-105 H (BEAKER) (test code = 652) CALCIUM (BEAKER) 9.0 mg/dL 8.4-10.2 (test code = 697) EGFR (BEAKER) (test 79 mL/min/1.73 ESTIMA NEELA GFR IS code = 1092) sq m NOT ACCURATE CREATININE CLEARANCE IN PREDICTING GLOMERULAR FILTRATION RATE . ESTIMATED GFR I S NOT APPLICABLE FOR DIALYSIS PATIEN TS. Stitcher Hand ID - SO [id number] 04:12:00 Test Item Value Reference Range Interpretation Comments PARTIAL THROMBOPLASTIN TIME 89.8 seconds 22.5-36.0 H (BEAKER) (test code = 760) CBC (HEMOGRAM ONLY)2021-03-07 03:55:00 Test Item Value Reference Range Interpretation Comments WHITE BLOOD CELL COUNT (BEAKER) 8.7 K/ L 3.5-10.5 (test code = 775) RED BLOOD CELL COUNT (BEAKER) 3.37 M/ L 4.63-6.08 L (test code = 761) HEMOGLOBIN (BEAKER) (test code = 9.8 GM/DL 13.7-17.5 L 410) HEMATOCRIT (BEAKER) (test code = 31.1 % 40.1-51.0 L 411) MEAN CORPUSCULAR VOLUME (BEAKER) 92.3 fL 79.0-92.2 H (test code = 753) MEAN CORPUSCULAR HEMOGLOBIN 29.1 pg 25.7-32.2 (BEAKER) (test code = 751) MEAN CORPUSCULAR HEMOGLOBIN CONC 31.5 GM/DL 32.3-36.5 L (BEAKER) (test code = 752) RED CELL DISTRIBUTION WIDTH 15.8 % 11.6-14.4 H (BEAKER) (test code = 412) PLATELET COUNT (BEAKER) (test 189 K/CU MM 150-450 code = 756) MEAN PLATELET VOLUME (BEAKER) 9.8 fL 9.4-12.4 (test code = 754) NUCLEATED RED BLOOD CELLS 0 /100 WBC 0-0 (BEAKER) (test code = 413) [id number] 21:04:00 Test Item Value Reference Range Interpretation Comments PARTIAL THROMBOPLASTIN TIME 75.1 seconds 22.5-36.0 H (BEAKER) (test code = 760) [id number] 13:18:00 Test Item Value Reference Range Interpretation Comments PARTIAL THROMBOPLASTIN TIME 54.3 seconds 22.5-36.0 H (BEAKER) (test code = 760) BASIC METABOLIC [id number] 05:26:00 Test Item Value Reference Range Interpretation Comments SODIUM (BEAKER) 130 meq/L 136-145 L (test code = 381) POTASSIUM (BEAKER) 3.9 meq/L 3.5-5.1 (test code = 379) CHLORIDE (BEAKER) 91 meq/L 98-107 L (test code = 382) CO2 (BEAKER) (test 27 meq/L 22-29 code = 355) BLOOD UREA NITROGEN 23 mg/dL 7-21 H (BEAKER) (test code = 354) CREATININE (BEAKER) 1.16 mg/dL 0.57-1.25 (test code = 358) GLUCOSE RANDOM 119 mg/dL 70-105 H (BEAKER) (test code = 652) CALCIUM (BEAKER) 9.1 mg/dL 8.4-10.2 (test code = 697) EGFR (BEAKER) (test 67 mL/min/1.73 ESTIMA NEELA GFR IS code = 1092) sq m NOT ACCURATE CREATININE CLEARANCE IN PREDICTING GLOMERULAR FILTRATION RATE . ESTIMATED GFR I S NOT APPLICABLE FOR DIALYSIS PATIEN TS. Stitcher Hand ID - SO [id number] 05:26:00 Test Item Value Reference Range Interpretation Comments MAGNESIUM (BEAKER) (test code = 1.8 mg/dL 1.6-2.6 627) Stitcher Hand ID - SO [id number] 04:57:00 Test Item Value Reference Range Interpretation Comments PARTIAL THROMBOPLASTIN TIME 92.9 seconds 22.5-36.0 H (BEAKER) (test code = 760) CBC (HEMOGRAM ONLY)2021-03-06 04:49:00 Test Item Value Reference Range Interpretation Comments WHITE BLOOD CELL COUNT (BEAKER) 9.7 K/ L 3.5-10.5 (test code = 775) RED BLOOD CELL COUNT (BEAKER) 3.33 M/ L 4.63-6.08 L (test code = 761) HEMOGLOBIN (BEAKER) (test code = 9.7 GM/DL 13.7-17.5 L 410) HEMATOCRIT (BEAKER) (test code = 30.7 % 40.1-51.0 L 411) MEAN CORPUSCULAR VOLUME (BEAKER) 92.2 fL 79.0-92.2 (test code = 753) MEAN CORPUSCULAR HEMOGLOBIN 29.1 pg 25.7-32.2 (BEAKER) (test code = 751) MEAN CORPUSCULAR HEMOGLOBIN CONC 31.6 GM/DL 32.3-36.5 L (BEAKER) (test code = 752) RED CELL DISTRIBUTION WIDTH 15.8 % 11.6-14.4 H (BEAKER) (test code = 412) PLATELET COUNT (BEAKER) (test 208 K/CU MM 150-450 code = 756) MEAN PLATELET VOLUME (BEAKER) 10.1 fL 9.4-12.4 (test code = 754) NUCLEATED RED BLOOD CELLS 0 /100 WBC 0-0 (BEAKER) (test code = 413) HEPATIC FUNCTION [id number] 21:43:00 Test Item Value Reference Range Interpretation Comments TOTAL PROTEIN (BEAKER) (test code = 7.6 gm/dL 6.0-8.3 770) ALBUMIN (BEAKER) (test code = 1145) 4.1 g/dL 3.5-5.0 BILIRUBIN TOTAL (BEAKER) (test code 0.6 mg/dL 0.2-1.2 = 377) BILIRUBIN DIRECT (BEAKER) (test 0.3 mg/dL 0.1-0.5 code = 706) ALKALINE PHOSPHATASE (BEAKER) (test 86 U/L 40-150 code = 346) AST (SGOT) (BEAKER) (test code = 14 U/L 5-34 353) ALT (SGPT) (BEAKER) (test code = 19 U/L 6-55 347) Stitcher Hand ID - [id number] 21:38:00 Test Item Value Reference Range Interpretation Comments PARTIAL THROMBOPLASTIN TIME 82.6 seconds 22.5-36.0 H (BEAKER) (test code = 760) LACTIC ACID, [id number] 15:48:00 Test Item Value Reference Range Interpretation Comments LACTATE BLOOD VENOUS (2) (BEAKER) 2.02 mmol/L 0.50-2.20 (test code = 2872) Stitcher Hand ID - [id number] 14:35:00 Test Item Value Reference Range Interpretation Comments PARTIAL THROMBOPLASTIN TIME 87.7 seconds 22.5-36.0 H (BEAKER) (test code = 760) [id number] 05:55:00 Test Item Value Reference Range Interpretation Comments PARTIAL THROMBOPLASTIN TIME 87.5 seconds 22.5-36.0 H (BEAKER) (test code = 760) BASIC METABOLIC [id number] 05:16:00 Test Item Value Reference Range Interpretation Comments SODIUM (BEAKER) 131 meq/L 136-145 L (test code = 381) POTASSIUM (BEAKER) 3.8 meq/L 3.5-5.1 (test code = 379) CHLORIDE (BEAKER) 89 meq/L 98-107 L (test code = 382) CO2 (BEAKER) (test 32 meq/L 22-29 H code = 355) BLOOD UREA NITROGEN 16 mg/dL 7-21 (BEAKER) (test code = 354) CREATININE (BEAKER) 1.06 mg/dL 0.57-1.25 (test code = 358) GLUCOSE RANDOM 102 mg/dL 70-105 (BEAKER) (test code = 652) CALCIUM (BEAKER) 9.3 mg/dL 8.4-10.2 (test code = 697) EGFR (BEAKER) (test 74 mL/min/1.73 ESTIMA NEELA GFR IS code = 1092) sq m NOT ACCURATE CREATININE CLEARANCE IN PREDICTING GLOMERULAR FILTRATION RATE . ESTIMATED GFR I S NOT APPLICABLE FOR DIALYSIS PATIEN TS. Stitcher Hand ID - SO [id number] 05:16:00 Test Item Value Reference Range Interpretation Comments MAGNESIUM (BEAKER) (test code = 1.7 mg/dL 1.6-2.6 627) Stitcher Hand ID - SO [facility] (HEMOGRAM ONLY)2021-03-05 05:02:00 Test Item Value Reference Range Interpretation Comments WHITE BLOOD CELL COUNT (BEAKER) 9.6 K/ L 3.5-10.5 (test code = 775) RED BLOOD CELL COUNT (BEAKER) 3.50 M/ L 4.63-6.08 L (test code = 761) HEMOGLOBIN (BEAKER) (test code = 10.2 GM/DL 13.7-17.5 L 410) HEMATOCRIT (BEAKER) (test code = 32.2 % 40.1-51.0 L 411) MEAN CORPUSCULAR VOLUME (BEAKER) 92.0 fL 79.0-92.2 (test code = 753) MEAN CORPUSCULAR HEMOGLOBIN 29.1 pg 25.7-32.2 (BEAKER) (test code = 751) MEAN CORPUSCULAR HEMOGLOBIN CONC 31.7 GM/DL 32.3-36.5 L (BEAKER) (test code = 752) RED CELL DISTRIBUTION WIDTH 16.0 % 11.6-14.4 H (BEAKER) (test code = 412) PLATELET COUNT (BEAKER) (test 216 K/CU MM 150-450 code = 756) MEAN PLATELET VOLUME (BEAKER) 9.5 fL 9.4-12.4 (test code = 754) NUCLEATED RED BLOOD CELLS 0 /100 WBC 0-0 (BEAKER) (test code = 413) [id number] 21:36:00 Test Item Value Reference Range Interpretation Comments PARTIAL THROMBOPLASTIN TIME 88.1 seconds 22.5-36.0 H (BEAKER) (test code = 760) HEPATITIS C PCR, [id number] 20:30:00 Test Item Value Reference Range Interpretation Comments HCV RESULT COMPONENT HCV RNA not detected HCV RNA not detected (BEAKER) (test code = 2699) This test uses a Real-Time Polymerase Chain Reaction (RT-PCR) methodology and was performed using BRITTANY Ampliprep/BRITTANY TaqMan HCV test kit version 2.0 ([employer]).Reportable range for this assay is 15 - 100,000,000 IU per mL (1.18 - 8.00 Log IU/mL).[id number] 17:38:00 Test Item Value Reference Range Interpretation Comments PARTIAL THROMBOPLASTIN TIME 47.3 seconds 22.5-36.0 H (BEAKER) (test code = 760) HEPATIC FUNCTION [id number] 12:42:00 Test Item Value Reference Range Interpretation Comments TOTAL PROTEIN (BEAKER) (test code = 8.2 gm/dL 6.0-8.3 770) ALBUMIN (BEAKER) (test code = 1145) 4.4 g/dL 3.5-5.0 BILIRUBIN TOTAL (BEAKER) (test code 0.6 mg/dL 0.2-1.2 = 377) BILIRUBIN DIRECT (BEAKER) (test 0.3 mg/dL 0.1-0.5 code = 706) ALKALINE PHOSPHATASE (BEAKER) (test 92 U/L 40-150 code = 346) AST (SGOT) (BEAKER) (test code = 15 U/L 5-34 353) ALT (SGPT) (BEAKER) (test code = 16 U/L 6-55 347) Stitcher Hand ID - ADMINANTI-NUCLEAR ANTIBODY (BETY)2021-03-04 09:49:00 Test Item Value Reference Range Interpretation Comments ANTI-NUCLEAR ANTIBODY (BETY) (BEAKER) Positive Negative A (test code = 418) Test performed by IFA method.BETY TITER AND [id number] 09:49:00 Test Item Value Reference Range Interpretation Comments BETY TITER (BEAKER) (test code = :40 1541) BETY PATTERN (BEAKER) (test code = Speckled 1781) [id number] 08:41:00 Test Item Value Reference Range Interpretation Comments PARTIAL THROMBOPLASTIN TIME 33.7 seconds 22.5-36.0 (BEAKER) (test code = 760) BASIC METABOLIC [id number] 04:36:00 Test Item Value Reference Range Interpretation Comments SODIUM (BEAKER) 133 meq/L 136-145 L (test code = 381) POTASSIUM (BEAKER) 3.7 meq/L 3.5-5.1 (test code = 379) CHLORIDE (BEAKER) 90 meq/L 98-107 L (test code = 382) CO2 (BEAKER) (test 31 meq/L 22-29 H code = 355) BLOOD UREA NITROGEN 15 mg/dL 7-21 (BEAKER) (test code = 354) CREATININE (BEAKER) 1.02 mg/dL 0.57-1.25 (test code = 358) GLUCOSE RANDOM 107 mg/dL 70-105 H (BEAKER) (test code = 652) CALCIUM (BEAKER) 9.1 mg/dL 8.4-10.2 (test code = 697) EGFR (BEAKER) (test 78 mL/min/1.73 ESTIMA NEELA GFR IS code = 1092) sq m NOT ACCURATE CREATININE CLEARANCE IN PREDICTING GLOMERULAR FILTRATION RATE . ESTIMATED GFR I S NOT APPLICABLE FOR DIALYSIS PATIEN TS. Stitcher Hand ID - SO [id number] 04:36:00 Test Item Value Reference Range Interpretation Comments MAGNESIUM (BEAKER) (test code = 1.8 mg/dL 1.6-2.6 627) Stitcher Hand ID - SO [facility]BC (HEMOGRAM ONLY)2021-03-04 04:09:00 Test Item Value Reference Range Interpretation Comments WHITE BLOOD CELL COUNT (BEAKER) 8.5 K/ L 3.5-10.5 (test code = 775) RED BLOOD CELL COUNT (BEAKER) 3.56 M/ L 4.63-6.08 L (test code = 761) HEMOGLOBIN (BEAKER) (test code = 10.4 GM/DL 13.7-17.5 L 410) HEMATOCRIT (BEAKER) (test code = 33.2 % 40.1-51.0 L 411) MEAN CORPUSCULAR VOLUME (BEAKER) 93.3 fL 79.0-92.2 H (test code = 753) MEAN CORPUSCULAR HEMOGLOBIN 29.2 pg 25.7-32.2 (BEAKER) (test code = 751) MEAN CORPUSCULAR HEMOGLOBIN CONC 31.3 GM/DL 32.3-36.5 L (BEAKER) (test code = 752) RED CELL DISTRIBUTION WIDTH 15.9 % 11.6-14.4 H (BEAKER) (test code = 412) PLATELET COUNT (BEAKER) (test 190 K/CU MM 150-450 code = 756) MEAN PLATELET VOLUME (BEAKER) 9.3 fL 9.4-12.4 L (test code = 754) NUCLEATED RED BLOOD CELLS 0 /100 WBC 0-0 (BEAKER) (test code = 413) PROTEIN ELECTROPHORESIS, [id number] 14:57:00 Test Item Value Reference Range Interpretation Comments ALBUMIN FRACTION 3.4 gm/dL 3.5-5.5 L (BEAKER) (test code = 405) ALPHA 1 FRACTION 0.3 gm/dL 0.2-0.4 (BEAKER) (test code = 389) ALPHA 2 FRACTION 1.0 gm/dL 0.5-0.9 H (BEAKER) (test code = 390) BETA FRACTION 1.4 gm/dL 0.6-1.1 H (BEAKER) (test code = 392) GAMMA GLOBULIN 1.0 gm/dL 0.7-1.7 FRACTION (BEAKER) (test code = 391) INTERPRETATION-119 Albumin decreased. Alpha (BEAKER) (test code = globulin percentages 2615) increased. This suggests an acute phase response. [id number] Gerardo Fowler M.D. (BEAKER) (test code = (electonic signature) 6674) PROTEIN TOTAL SERUM, 7.1 gm/dL 6.0-8.3 SPEP (BEAKER) (test code = 4908) Beta globulins increased. This suggests an increase in transferrin or C3.Stitcher Hand ID - DBRAD, CHEST, 1 VIEW, NON [id number] 07:30:00Reason for exam:->pulm edemaShould this be performed at the bedside?->Yes [facility] [facility] : 1970 Sex: MFINAL REPORT TECHNIQUE: Frontal and lateral views of the chest. INDICATION: pulm edema COMPARISON: 03/02/2021. FINDINGS: LINES/TUBES: Left subclavian approach by ventricular pacer/ICD.. LUNGS: Increased interstitial opacities in the bilateral lungs.. Mild blunting of the right costophrenic s ulcus. No pneumothorax. HEART AND MEDIASTINUM: The cardiomediastinal silhouette is enlarged, unchanged.. SOFT TISSUES AND BONES: Unremarkable. IMPRESSION:Cardiomegaly with pulmonary edema and small right-sided pleural effusion. Signed: Ivanna Stockton Verified Date/Time: 03/03/2021 07:30:57 Reading Location: [address] Body Reading Room LACTIC ACID, VENOUS 2021-03-03 07:08:00 Test Item Value Reference Range Interpretation Comments LACTATE BLOOD VENOUS (2) (BEAKER) 1.89 mmol/L 0.50-2.20 (test code = 2872) Stitcher Hand ID - EMMANUEL [id number] 06:32:00 Test Item Value Reference Range Interpretation Comments PARTIAL THROMBOPLASTIN TIME 66.5 seconds 22.5-36.0 H (BEAKER) (test code = 760) BASIC METABOLIC [id number] 05:10:00 Test Item Value Reference Range Interpretation Comments SODIUM (BEAKER) 134 meq/L 136-145 L (test code = 381) POTASSIUM (BEAKER) 3.5 meq/L 3.5-5.1 (test code = 379) CHLORIDE (BEAKER) 89 meq/L 98-107 L (test code = 382) CO2 (BEAKER) (test 31 meq/L 22-29 H code = 355) BLOOD UREA NITROGEN 14 mg/dL 7-21 (BEAKER) (test code = 354) CREATININE (BEAKER) 0.99 mg/dL 0.57-1.25 (test code = 358) GLUCOSE RANDOM 112 mg/dL 70-105 H (BEAKER) (test code = 652) CALCIUM (BEAKER) 8.9 mg/dL 8.4-10.2 (test code = 697) EGFR (BEAKER) (test 80 mL/min/1.73 ESTIMA NEELA GFR IS code = 1092) sq m NOT ACCURATE CREATININE CLEARANCE IN PREDICTING GLOMERULAR FILTRATION RATE . ESTIMATED GFR I S NOT APPLICABLE FOR DIALYSIS PATIEN TS. Stitcher Hand ID - FAUZIA [id number] 05:10:00 Test Item Value Reference Range Interpretation Comments MAGNESIUM (BEAKER) (test code = 1.9 mg/dL 1.6-2.6 627) Stitcher Hand ID - FAUZIA WLACTIC ACID, [id number] 05:06:00 Test Item Value Reference Range Interpretation Comments LACTATE BLOOD VENOUS (2) (BEAKER) 4.42 mmol/L 0.50-2.20 HH (test code = 2872) Stitcher Hand ID - DBCBC (HEMOGRAM ONLY)2021-03-03 04:43:00 Test Item Value Reference Range Interpretation Comments WHITE BLOOD CELL COUNT (BEAKER) 8.5 K/ L 3.5-10.5 (test code = 775) RED BLOOD CELL COUNT (BEAKER) 3.49 M/ L 4.63-6.08 L (test code = 761) HEMOGLOBIN (BEAKER) (test code = 10.3 GM/DL 13.7-17.5 L 410) HEMATOCRIT (BEAKER) (test code = 32.2 % 40.1-51.0 L 411) MEAN CORPUSCULAR VOLUME (BEAKER) 92.3 fL 79.0-92.2 H (test code = 753) MEAN CORPUSCULAR HEMOGLOBIN 29.5 pg 25.7-32.2 (BEAKER) (test code = 751) MEAN CORPUSCULAR HEMOGLOBIN CONC 32.0 GM/DL 32.3-36.5 L (BEAKER) (test code = 752) RED CELL DISTRIBUTION WIDTH 16.2 % 11.6-14.4 H (BEAKER) (test code = 412) PLATELET COUNT (BEAKER) (test 197 K/CU MM 150-450 code = 756) MEAN PLATELET VOLUME (BEAKER) 10.0 fL 9.4-12.4 (test code = 754) NUCLEATED RED BLOOD CELLS 0 /100 WBC 0-0 (BEAKER) (test code = 413) [id number] 22:50:00 Test Item Value Reference Range Interpretation Comments PARTIAL THROMBOPLASTIN TIME 74.9 seconds 22.5-36.0 H (BEAKER) (test code = 760) BASIC METABOLIC [id number] 16:23:00 Test Item Value Reference Range Interpretation Comments SODIUM (BEAKER) 132 meq/L 136-145 L (test code = 381) POTASSIUM (BEAKER) 3.7 meq/L 3.5-5.1 (test code = 379) CHLORIDE (BEAKER) 92 meq/L 98-107 L (test code = 382) CO2 (BEAKER) (test 29 meq/L 22-29 code = 355) BLOOD UREA NITROGEN 15 mg/dL 7-21 (BEAKER) (test code = 354) CREATININE (BEAKER) 0.98 mg/dL 0.57-1.25 (test code = 358) GLUCOSE RANDOM 126 mg/dL 70-105 H (BEAKER) (test code = 652) CALCIUM (BEAKER) 8.6 mg/dL 8.4-10.2 (test code = 697) EGFR (BEAKER) (test 81 mL/min/1.73 ESTIMA NEELA GFR IS code = 1092) sq m NOT ACCURATE CREATININE CLEARANCE IN PREDICTING GLOMERULAR FILTRATION RATE . ESTIMATED GFR I S NOT APPLICABLE FOR DIALYSIS PATIEN TS. Stitcher Hand ID - [id number] 16:23:00 Test Item Value Reference Range Interpretation Comments MAGNESIUM (BEAKER) (test code = 1.7 mg/dL 1.6-2.6 627) Stitcher Hand ID - [id number] 16:19:00 Test Item Value Reference Range Interpretation Comments PARTIAL THROMBOPLASTIN TIME 59.2 seconds 22.5-36.0 H (BEAKER) (test code = 760) [id number] 09:17:00 Test Item Value Reference Range Interpretation Comments PARTIAL THROMBOPLASTIN TIME 63.6 seconds 22.5-36.0 H (BEAKER) (test code = 760) RAD, CHEST, 1 VIEW, NON [id number] 08:38:00Reason for exam:->pulm edemaShould this be performed at the bedside?->Yes [facility] : 1970 Sex: MFINAL REPORT TECHNIQUE: Frontal view of the chest. INDICATION: 50-year-old man with pulmonary edema. COMPARISON: Chest radiograph 02/27/2021. FINDINGS: LINES/TUBES/DEVICES: Unchanged implanted cardiac device. LUNGS: Lungs are well inflated. No consolidation or pulmonary edema. Mild linear atelectasis in both lower lung zones. PLEURA: No pneumothorax or significant pleural effusion. HEART AND MEDIASTINUM: Cardiomediastinal silhouette is unchanged. BONES AND SOFT TISSUES: Unremarkable. IMPRESSION:No acute cardiopulmonary abnormalities. Signed: Donaldo Carty MDReport Verified Date/Time: 03/02/2021 08:38:46 Reading Location: [address] Consult Reading Room BASIC METABOLIC PANEL 2021-03-02 06:40:00 Test Item Value Reference Range Interpretation Comments SODIUM (BEAKER) 131 meq/L 136-145 L (test code = 381) POTASSIUM (BEAKER) 3.3 meq/L 3.5-5.1 L (test code = 379) CHLORIDE (BEAKER) 92 meq/L 98-107 L (test code = 382) CO2 (BEAKER) (test 30 meq/L 22-29 H code = 355) BLOOD UREA NITROGEN 15 mg/dL 7-21 (BEAKER) (test code = 354) CREATININE (BEAKER) 1.03 mg/dL 0.57-1.25 (test code = 358) GLUCOSE RANDOM 128 mg/dL 70-105 H (BEAKER) (test code = 652) CALCIUM (BEAKER) 8.1 mg/dL 8.4-10.2 L (test code = 697) EGFR (BEAKER) (test 77 mL/min/1.73 ESTIMA NEELA GFR IS code = 1092) sq m NOT ACCURATE CREATININE CLEARANCE IN PREDICTING GLOMERULAR FILTRATION RATE . ESTIMATED GFR I S NOT APPLICABLE FOR DIALYSIS PATIEN TS. Stitcher Hand ID Sal FAUZIA [id number] 06:40:00 Test Item Value Reference Range Interpretation Comments MAGNESIUM (BEAKER) (test code = 1.8 mg/dL 1.6-2.6 627) Stitcher Hand ID Sal CAGE WHEPATIC FUNCTION [id number] 06:40:00 Test Item Value Reference Range Interpretation Comments TOTAL PROTEIN (BEAKER) (test code = 7.2 gm/dL 6.0-8.3 770) ALBUMIN (BEAKER) (test code = 1145) 3.9 g/dL 3.5-5.0 BILIRUBIN TOTAL (BEAKER) (test code 0.7 mg/dL 0.2-1.2 = 377) BILIRUBIN DIRECT (BEAKER) (test 0.3 mg/dL 0.1-0.5 code = 706) ALKALINE PHOSPHATASE (BEAKER) (test 76 U/L 40-150 code = 346) AST (SGOT) (BEAKER) (test code = 13 U/L 5-34 353) ALT (SGPT) (BEAKER) (test code = 12 U/L 6-55 347) Stitcher Hand ID Sal FAUZIA WCBC W/PLT COUNT & AUTO [id number] 06:16:00 Test Item Value Reference Range Interpretation Comments WHITE BLOOD CELL COUNT (BEAKER) 7.0 K/ L 3.5-10.5 (test code = 775) RED BLOOD CELL COUNT (BEAKER) 2.94 M/ L 4.63-6.08 L (test code = 761) HEMOGLOBIN (BEAKER) (test code = 8.8 GM/DL 13.7-17.5 L 410) HEMATOCRIT (BEAKER) (test code = 28.1 % 40.1-51.0 L 411) MEAN CORPUSCULAR VOLUME (BEAKER) 95.6 fL 79.0-92.2 H (test code = 753) MEAN CORPUSCULAR HEMOGLOBIN 29.9 pg 25.7-32.2 (BEAKER) (test code = 751) MEAN CORPUSCULAR HEMOGLOBIN CONC 31.3 GM/DL 32.3-36.5 L (BEAKER) (test code = 752) RED CELL DISTRIBUTION WIDTH 16.2 % 11.6-14.4 H (BEAKER) (test code = 412) PLATELET COUNT (BEAKER) (test 176 K/CU MM 150-450 code = 756) MEAN PLATELET VOLUME (BEAKER) 10.3 fL 9.4-12.4 (test code = 754) NUCLEATED RED BLOOD CELLS 0 /100 WBC 0-0 (BEAKER) (test code = 413) NEUTROPHILS RELATIVE PERCENT 74 % (BEAKER) (test code = 429) LYMPHOCYTES RELATIVE PERCENT 18 % (BEAKER) (test code = 430) MONOCYTES RELATIVE PERCENT 6 % (BEAKER) (test code = 431) EOSINOPHILS RELATIVE PERCENT 1 % (BEAKER) (test code = 432) BASOPHILS RELATIVE PERCENT 0 % (BEAKER) (test code = 437) NEUTROPHILS ABSOLUTE COUNT 5.17 K/ L 1.78-5.38 (BEAKER) (test code = 670) LYMPHOCYTES ABSOLUTE COUNT 1.27 K/ L 1.32-3.57 L (BEAKER) (test code = 414) MONOCYTES ABSOLUTE COUNT (BEAKER) 0.40 K/ L 0.30-0.82 (test code = 415) EOSINOPHILS ABSOLUTE COUNT 0.10 K/ L 0.04-0.54 (BEAKER) (test code = 416) BASOPHILS ABSOLUTE COUNT (BEAKER) 0.01 K/ L 0.01-0.08 (test code = 417) IMMATURE GRANULOCYTES-RELATIVE 1 % 0-1 PERCENT (BEAKER) (test code = 2801) LACTIC ACID, [id number] 05:50:00 Test Item Value Reference Range Interpretation Comments LACTATE BLOOD VENOUS (2) (BEAKER) 1.19 mmol/L 0.50-2.20 (test code = 2872) Stitcher Hand ID - FAUZIA [id number] 02:20:00 Test Item Value Reference Range Interpretation Comments PARTIAL THROMBOPLASTIN TIME 59.9 seconds 22.5-36.0 H (BEAKER) (test code = 760) [id number] 19:17:00 Test Item Value Reference Range Interpretation Comments PARTIAL THROMBOPLASTIN TIME 56.7 seconds 22.5-36.0 H (BEAKER) (test code = 760) [id number] 16:51:00 Test Item Value Reference Range Interpretation Comments MAGNESIUM (BEAKER) 1.8 mg/dL 1.6-2.6 Specimen slightly (test code = 627) hemolyzed Stitcher Hand ID - DBBASIC METABOLIC [id number] 16:51:00 Test Item Value Reference Range Interpretation Comments SODIUM (BEAKER) 136 meq/L 136-145 (test code = 381) POTASSIUM (BEAKER) 4.4 meq/L 3.5-5.1 Specimen slightly (test code = 379) hemolyzed CHLORIDE (BEAKER) 95 meq/L 98-107 L (test code = 382) CO2 (BEAKER) (test 32 meq/L 22-29 H code = 355) BLOOD UREA NITROGEN 17 mg/dL 7-21 (BEAKER) (test code = 354) CREATININE (BEAKER) 1.00 mg/dL 0.57-1.25 Specimen slightly (test code = 358) hemolyzed GLUCOSE RANDOM 132 mg/dL 70-105 H (BEAKER) (test code = 652) CALCIUM (BEAKER) 8.6 mg/dL 8.4-10.2 (test code = 697) EGFR (BEAKER) (test 79 mL/min/1.73 ESTIMA NEELA GFR IS code = 1092) sq m NOT ACCURATE CREATININE CLEARANCE IN PREDICTING GLOMERULAR FILTRATION RATE . ESTIMATED GFR I S NOT APPLICABLE FOR DIALYSIS PATIEN TS. Stitcher Hand ID - [id number] 10:57:00 Test Item Value Reference Range Interpretation Comments PARTIAL THROMBOPLASTIN TIME 32.6 seconds 22.5-36.0 (BEAKER) (test code = 760) T4, [id number] 08:10:00 Test Item Value Reference Range Interpretation Comments FREE T4 (BEAKER) (test code = 655) 0.89 ng/dL 0.70-1.48 Stitcher Hand ID - DBTSH/FREE T4 IF [id number] 07:32:00 Test Item Value Reference Range Interpretation Comments THYROID STIMULATING HORMONE 6.349 uIU/mL 0.350-4.940 H (BEAKER) (test code = 772) Stitcher Hand ID - SO MHEPATITIS B [id number] 07:20:00 Test Item Value Reference Range Interpretation Comments HEPATITIS B CORE TOTAL ANTIBODY Nonreactive Nonreactive (BEAKER) (test code = 497) HEPATITIS B SURFACE ANTIBODY < mIU/mL <8.0 (BEAKER) (test code = 647) HEPATITIS B SURFACE ANTIGEN (2) Nonreactive Nonreactive (BEAKER) (test code = 2585) Stitcher Hand ID - DBVITAMIN B12 AND [id number] 07:11:00 Test Item Value Reference Range Interpretation Comments VITAMIN B12 209 pg/mL 213-816 L (BEAKER) (test code = 774) FOLATE (BEAKER) 11.40 ng/mL See_Comment [Automated message] (test code = 362) The system which generated this result transmitted ref erence range: >=7.00. The reference range was not used to interpr et this result as normal/abnormal . Stitcher Hand ID - SO [id number] 07:00:00 Test Item Value Reference Range Interpretation Comments TRANSFERRIN (BEAKER) (test code = 330 mg/dL 174-382 541) Stitcher Hand ID - SO MHEPATITIS C [id number] 06:52:00 Test Item Value Reference Range Interpretation Comments HEPATITIS C ANTIBODY (BEAKER) Nonreactive Nonreactive (test code = 367) Stitcher Hand ID - DBHIV-1 ANTIGEN WITH HIV-1/2 [id number] 06:52:00 Test Item Value Reference Range Interpretation Comments HIV-1 ANTIGEN WITH HIV 1\\T\\2 Nonreactive Nonreactive ANTIBODY (2) (BEAKER) (test code = 2586) Stitcher Hand ID - [id number] 05:58:00 Test Item Value Reference Range Interpretation Comments FERRITIN (BEAKER) (test code = 20.34 ng/mL 5.00-275.00 361) Stitcher Hand ID - SO JARETH, TIBC, % SAT. (WITHOUT FERRITIN)2021-03-01 05:38:00 Test Item Value Reference Range Interpretation Comments IRON (BEAKER) (test code = 547) 24.0 ug/dL 40.0-160.0 L TOTAL IRON BINDING CAPACITY 428 ug/dL 250-450 (BEAKER) (test code = 769) IRON % SATURATION (2) (BEAKER) 6 % 20-55 L (test code = 2590) Stitcher Hand ID - SO MBASIC METABOLIC [id number] 04:26:00 Test Item Value Reference Range Interpretation Comments SODIUM (BEAKER) 135 meq/L 136-145 L (test code = 381) POTASSIUM (BEAKER) 3.2 meq/L 3.5-5.1 L (test code = 379) CHLORIDE (BEAKER) 96 meq/L 98-107 L (test code = 382) CO2 (BEAKER) (test 28 meq/L 22-29 code = 355) BLOOD UREA NITROGEN 19 mg/dL 7-21 (BEAKER) (test code = 354) CREATININE (BEAKER) 0.95 mg/dL 0.57-1.25 (test code = 358) GLUCOSE RANDOM 129 mg/dL 70-105 H (BEAKER) (test code = 652) CALCIUM (BEAKER) 8.3 mg/dL 8.4-10.2 L (test code = 697) EGFR (BEAKER) (test 84 mL/min/1.73 ESTIMA NEELA GFR IS code = 1092) sq m NOT ACCURATE CREATININE CLEARANCE IN PREDICTING GLOMERULAR FILTRATION RATE . ESTIMATED GFR I S NOT APPLICABLE FOR DIALYSIS PATIEN TS. Stitcher Hand ID - [id number] 04:26:00 Test Item Value Reference Range Interpretation Comments MAGNESIUM (BEAKER) (test code = 1.8 mg/dL 1.6-2.6 627) Stitcher Hand ID - DBLIPID [id number] 04:26:00 Test Item Value Reference Range Interpretation Comments TRIGLYCERIDES (BEAKER) (test code = 85 mg/dL 540) CHOLESTEROL (BEAKER) (test code = 157 mg/dL 631) HDL CHOLESTEROL (BEAKER) (test code 35 mg/dL = 976) LDL CHOLESTEROL CALCULATED (BEAKER) 105 mg/dL (test code = 633) Triglyceride Reference Range: Low Risk <150 Borderline 150-199 High Risk 200- 499 Very High Risk >=500Cholesterol Reference Range: Low Risk <200 Borderline 200-239 High Risk >240HDL Cholesterol Reference Range: Low Risk >=60 High Risk <40LDL Cholesterol Reference Range: Optimal <100 Near Optimal 100-129 Borderline 130-159 High 160-189 Very High >=190 Stitcher Hand ID - [id number] 04:05:00 Test Item Value Reference Range Interpretation Comments PARTIAL THROMBOPLASTIN TIME 36.1 seconds 22.5-36.0 H (BEAKER) (test code = 760) CBC W/PLT COUNT & AUTO [id number] 03:57:00 Test Item Value Reference Range Interpretation Comments WHITE BLOOD CELL COUNT (BEAKER) 8.0 K/ L 3.5-10.5 (test code = 775) RED BLOOD CELL COUNT (BEAKER) 3.30 M/ L 4.63-6.08 L (test code = 761) HEMOGLOBIN (BEAKER) (test code = 9.6 GM/DL 13.7-17.5 L 410) HEMATOCRIT (BEAKER) (test code = 30.9 % 40.1-51.0 L 411) MEAN CORPUSCULAR VOLUME (BEAKER) 93.6 fL 79.0-92.2 H (test code = 753) MEAN CORPUSCULAR HEMOGLOBIN 29.1 pg 25.7-32.2 (BEAKER) (test code = 751) MEAN CORPUSCULAR HEMOGLOBIN CONC 31.1 GM/DL 32.3-36.5 L (BEAKER) (test code = 752) RED CELL DISTRIBUTION WIDTH 16.0 % 11.6-14.4 H (BEAKER) (test code = 412) PLATELET COUNT (BEAKER) (test 194 K/CU MM 150-450 code = 756) MEAN PLATELET VOLUME (BEAKER) 9.6 fL 9.4-12.4 (test code = 754) NUCLEATED RED BLOOD CELLS 0 /100 WBC 0-0 (BEAKER) (test code = 413) NEUTROPHILS RELATIVE PERCENT 77 % (BEAKER) (test code = 429) LYMPHOCYTES RELATIVE PERCENT 17 % (BEAKER) (test code = 430) MONOCYTES RELATIVE PERCENT 5 % (BEAKER) (test code = 431) EOSINOPHILS RELATIVE PERCENT 1 % (BEAKER) (test code = 432) BASOPHILS RELATIVE PERCENT 0 % (BEAKER) (test code = 437) NEUTROPHILS ABSOLUTE COUNT 6.14 K/ L 1.78-5.38 H (BEAKER) (test code = 670) LYMPHOCYTES ABSOLUTE COUNT 1.31 K/ L 1.32-3.57 L (BEAKER) (test code = 414) MONOCYTES ABSOLUTE COUNT (BEAKER) 0.40 K/ L 0.30-0.82 (test code = 415) EOSINOPHILS ABSOLUTE COUNT 0.06 K/ L 0.04-0.54 (BEAKER) (test code = 416) BASOPHILS ABSOLUTE COUNT (BEAKER) 0.01 K/ L 0.01-0.08 (test code = 417) IMMATURE GRANULOCYTES-RELATIVE 0 % 0-1 PERCENT (BEAKER) (test code = 2801) [id number] 23:28:00 Test Item Value Reference Range Interpretation Comments POTASSIUM (BEAKER) 4.2 meq/L 3.5-5.1 slightly hemolyzed & (test code = 379) slightly i cteric Stitcher Hand ID - [id number] 23:27:00 Test Item Value Reference Range Interpretation Comments MAGNESIUM (BEAKER) 2.0 mg/dL 1.6-2.6 slightly hemolyzed & (test code = 627) slightly i cteric Stitcher Hand ID - [id number] 20:56:00 Test Item Value Reference Range Interpretation Comments PARTIAL THROMBOPLASTIN TIME 35.9 seconds 22.5-36.0 (BEAKER) (test code = 760) [id number] 13:28:00 Test Item Value Reference Range Interpretation Comments MAGNESIUM (BEAKER) 2.0 mg/dL 1.6-2.6 Specimen slightly (test code = 627) hemolyzed Stitcher Hand ID - WESLEY [id number] 13:28:00 Test Item Value Reference Range Interpretation Comments POTASSIUM (BEAKER) 3.5 meq/L 3.5-5.1 Specimen slightly (test code = 379) hemolyzed Stitcher Hand ID - WESLEY [id number] 12:55:00 Test Item Value Reference Range Interpretation Comments PARTIAL THROMBOPLASTIN TIME 34.7 seconds 22.5-36.0 (BEAKER) (test code = 760) [id number] 05:45:00 Test Item Value Reference Range Interpretation Comments PARTIAL THROMBOPLASTIN TIME 35.1 seconds 22.5-36.0 (BEAKER) (test code = 760) BASIC METABOLIC [id number] 05:13:00 Test Item Value Reference Range Interpretation Comments SODIUM (BEAKER) 131 meq/L 136-145 L (test code = 381) POTASSIUM (BEAKER) 3.6 meq/L 3.5-5.1 (test code = 379) CHLORIDE (BEAKER) 95 meq/L 98-107 L (test code = 382) CO2 (BEAKER) (test 24 meq/L 22-29 code = 355) BLOOD UREA NITROGEN 25 mg/dL 7-21 H (BEAKER) (test code = 354) CREATININE (BEAKER) 1.03 mg/dL 0.57-1.25 (test code = 358) GLUCOSE RANDOM 133 mg/dL 70-105 H (BEAKER) (test code = 652) CALCIUM (BEAKER) 8.7 mg/dL 8.4-10.2 (test code = 697) EGFR (BEAKER) (test 77 mL/min/1.73 ESTIMA NEELA GFR IS code = 1092) sq m NOT ACCURATE CREATININE CLEARANCE IN PREDICTING GLOMERULAR FILTRATION RATE . ESTIMATED GFR I S NOT APPLICABLE FOR DIALYSIS PATIEN TS. Stitcher Hand ID - SOCO [id number] 05:13:00 Test Item Value Reference Range Interpretation Comments MAGNESIUM (BEAKER) (test code = 1.7 mg/dL 1.6-2.6 627) Stitcher Hand ID - SOCO LCBC W/PLT COUNT & AUTO [id number] 04:34:00 Test Item Value Reference Range Interpretation Comments WHITE BLOOD CELL COUNT (BEAKER) 12.2 K/ L 3.5-10.5 H (test code = 775) RED BLOOD CELL COUNT (BEAKER) 3.52 M/ L 4.63-6.08 L (test code = 761) HEMOGLOBIN (BEAKER) (test code = 10.2 GM/DL 13.7-17.5 L 410) HEMATOCRIT (BEAKER) (test code = 32.3 % 40.1-51.0 L 411) MEAN CORPUSCULAR VOLUME (BEAKER) 91.8 fL 79.0-92.2 (test code = 753) MEAN CORPUSCULAR HEMOGLOBIN 29.0 pg 25.7-32.2 (BEAKER) (test code = 751) MEAN CORPUSCULAR HEMOGLOBIN CONC 31.6 GM/DL 32.3-36.5 L (BEAKER) (test code = 752) RED CELL DISTRIBUTION WIDTH 16.1 % 11.6-14.4 H (BEAKER) (test code = 412) PLATELET COUNT (BEAKER) (test 298 K/CU MM 150-450 code = 756) MEAN PLATELET VOLUME (BEAKER) 9.3 fL 9.4-12.4 L (test code = 754) NUCLEATED RED BLOOD CELLS 0 /100 WBC 0-0 (BEAKER) (test code = 413) NEUTROPHILS RELATIVE PERCENT 74 % (BEAKER) (test code = 429) LYMPHOCYTES RELATIVE PERCENT 20 % (BEAKER) (test code = 430) MONOCYTES RELATIVE PERCENT 5 % (BEAKER) (test code = 431) EOSINOPHILS RELATIVE PERCENT 1 % (BEAKER) (test code = 432) BASOPHILS RELATIVE PERCENT 0 % (BEAKER) (test code = 437) NEUTROPHILS ABSOLUTE COUNT 9.01 K/ L 1.78-5.38 H (BEAKER) (test code = 670) LYMPHOCYTES ABSOLUTE COUNT 2.38 K/ L 1.32-3.57 (BEAKER) (test code = 414) MONOCYTES ABSOLUTE COUNT (BEAKER) 0.57 K/ L 0.30-0.82 (test code = 415) EOSINOPHILS ABSOLUTE COUNT 0.15 K/ L 0.04-0.54 (BEAKER) (test code = 416) BASOPHILS ABSOLUTE COUNT (BEAKER) 0.03 K/ L 0.01-0.08 (test code = 417) IMMATURE GRANULOCYTES-RELATIVE 1 % 0-1 PERCENT (BEAKER) (test code = 2801) HIGH SENSITIVITY TROPONIN [id number] 01:25:00 Test Item Value Reference Range Interpretation Comments HIGH SENSITIVITY 38 pg/ml See_Comment H [Automated message] TROPONIN I (test code = The system which [id number]) generated this result transmitted ref erence range: <=35. Th e reference range was not used to int erpret this result as normal/abnormal . Stitcher Hand ID - PIAYA LThe [employer] BLEACHER STAT High Sensitivity Troponin-I results should be used in conjunction with other diagnostic information such as ECG, clinical observations and information, and patient symptoms to aid in the diagnosis of PR.HIGH SENSITIVITY TROPONIN [id number] 01:24:00 Test Item Value Reference Range Interpretation Comments HIGH SENSITIVITY 39 pg/ml See_Comment H [Automated message] TROPONIN I (test code = The system which [id number]) generated this result transmitted ref erence range: <=35. e reference range was not used to int erpret this result as normal/abnormal . Stitcher Hand ID - PIAYA LThe [employer] BLEACHER STAT High Sensitivity Troponin-I results should be used in conjunction with other diagnostic information such as ECG, clinical observations and information, and patient symptoms to aid in the diagnosis of PR.SARS-COV2/INFLUENZA/RSV [id number] 01:20:00 Test Item Value Reference Range Interpretation Comments SARS-COV2/RT-PCR Negative Negative (test code = 8557211) INFLUENZA A RT-PCR Negative Negative (test code = 8457972) INFLUENZA B RT-PCR Negative Negative (test code = 7766054) RSV RT-PCR (test Negative Negative Performance of the Xpert code = 9197128) Xpress SARS- CoV-2/Flu/RSV test has only b een established in nasopharyngeal swab specimens. Use of the Xpert Xpress SARS-CoV-2/Flu/ RSV test with other spec imen types has not been as sessed and performance characteristics are unknown. As wit h any molecular test, mutations within the targ eted genetic regions identified by t Xpert Xpress SARS-CoV -2/Flu/RSV test could affe ct primer and/or probe bi nding resulting in fa ilure to detect the pres ence of virus or the vi zachariah being detected less predictably.Neg ative results do not preclude SARS-CoV-2, Inf luenza A/B, or RSV inf ection and should not be u sed as the sole basis for treatment or other patien t management deci sions. Results from e Xpert Xpress SARS-CoV -2/Flu/RSV test should be correlated with the clinic al history, epidem iological data, and other data available to e clinician evalu ating the patient. Invali d test results may occ ur from improper specim en collection; shira lure to follow the lindy mmended sample collecti on, handling, and s torage procedures; tamara hnical error. False ne gative results may occ ur if virus is presen t at levels below th e analytical limi t of detection (LOD: 131 copies/mL). Vir al nucleic acid may persis t in vivo, independent of virus viability. Dete ction of analyte target( s) does not imply that the corresponding v irus(es) are infectious or are the causative agent s for clinical sympto ms. Recent patient exposur e to [facility] or othe r live attenuated infl uenza vaccines may ca use inaccurate posi tive results.This te st has been authorized by FDA under an EUA fo r use by authorized labo ratories. This test is on ly authorized for the duration of the declaration kem t circumstances e xist justifying the authorization o f emergency use o f in vitro diagnostic test s for detection and/o r diagnosis of CO VID-19 under Section 5 64(b)(1) of the Federal Food, Drug and Cosmetic Ac t, 21 U.S.C. 360bbb-3 (b)(1), unless the auth orization is terminated o r revoked sooner.Fact She et for Healthcare Prov iders: [email or web address] 20Xpress%2 1KMPC-JsH-2-Flu -RSV/302-4 508%20Rev.%20B% 20HCP%20Fa ct%20Sheet.pdfF act Sheet for Healthcare Patients: [email or web address] 20Xpress%2 5PANE-CfY-6-Flu -RSV/302-4 507%20Rev.%20B% 20Patient% 20Fact%20Sheet. pdf LACTIC ACID, [id number] 00:45:00 Test Item Value Reference Range Interpretation Comments LACTATE BLOOD VENOUS 1.64 mmol/L 0.50-2.20 Specime n slightly (2) (BEAKER) (test hemolyzed code = 2872) Stitcher Hand ID - SOCO HENRIQUEZLOOD GAS, [id number] 00:36:00 Test Item Value Reference Range Interpretation Comments PH VENOUS (BEAKER) (test code = 7.47 7.32-7.42 H 701) PCO2 VENOUS (BEAKER) (test code = 40 mm Hg 41-51 L 755) PO2 VENOUS (BEAKER) (test code = 59 mm Hg 25-40 H 702) O2 SATURATION VENOUS (BEAKER) 91.9 % 40.0-70.0 H (test code = 703) HCO3 VENOUS (BEAKER) (test code = 28 mmol/L 21-29 705) BASE EXCESS VENOUS (BEAKER) (test 4.0 mmol/L -2.0-3.0 H code = 704) PATIENT TEMPERATURE (BEAKER) (test 37.0 code = 1818) FIO2 (BEAKER) (test code = 1819) 21.0 HIGH SENSITIVITY TROPONIN [id number] 19:32:00 Test Item Value Reference Range Interpretation Comments HIGH SENSITIVITY 34 pg/ml See_Comment [Automated message] TROPONIN I (test code = The system which [id number]) generated this result transmitted ref erence range: <=35. Th e reference range was not used to int erpret this result as normal/abnormal . Stitcher Hand ID - DBThe BEESWAX BLEACHER STAT High Sensitivity Troponin-I results should be used in conjunctionwith other diagnostic information such as ECG, clinical observations and information, and patient symptoms to aid in the diagnosis of PR.B-TYPE NATRIURETIC FACTOR (BNP)2021-02-27 19:31:00 Test Item Value Reference Range Interpretation Comments B-TYPE NATRIURETIC PEPTIDE (BEAKER) 755 pg/mL 0-100 H (test code = 700) Stitcher Hand ID - DBPT/[id number] 19:29:00 Test Item Value Reference Range Interpretation Comments PROTIME (BEAKER) (test 15.0 seconds 11.9-14.2 H code = 759) INR (BEAKER) (test 1.23 See_Comment [Automat ed code = 370) message] The sy stem which generated this result transmitted reference range : <=5.90. The reference range was not used to interpret this result as normal/abnormal . PARTIAL THROMBOPLASTIN 36.6 seconds 22.5-36.0 H TIME (BEAKER) (test code = 760) RECOMMENDED COUMADIN/WARFARIN INR THERAPY RANGESSTANDARD DOSE: 2.0 - 3.0 Includes: PROPHYLAXIS for venous thrombosis, systemic embolization; TREATMENT for venous thrombosis and/or pulmonary embolus.HIGH RISK: Target INR is 2.5-3.5 for patients with mechanical heart valves.BASIC METABOLIC [id number] 19:26:00 Test Item Value Reference Range Interpretation Comments SODIUM (BEAKER) 134 meq/L 136-145 L (test code = 381) POTASSIUM (BEAKER) 3.8 meq/L 3.5-5.1 (test code = 379) CHLORIDE (BEAKER) 95 meq/L 98-107 L (test code = 382) CO2 (BEAKER) (test 28 meq/L 22-29 code = 355) BLOOD UREA NITROGEN 22 mg/dL 7-21 H (BEAKER) (test code = 354) CREATININE (BEAKER) 1.11 mg/dL 0.57-1.25 (test code = 358) GLUCOSE RANDOM 108 mg/dL 70-105 H (BEAKER) (test code = 652) CALCIUM (BEAKER) 8.8 mg/dL 8.4-10.2 (test code = 697) EGFR (BEAKER) (test 70 mL/min/1.73 ESTIMA NEELA GFR IS code = 1092) sq m NOT ACCURATE CREATININE CLEARANCE IN PREDICTING GLOMERULAR FILTRATION RATE . ESTIMATED GFR I S NOT APPLICABLE FOR DIALYSIS PATIEN TS. Stitcher Hand ID - [id number] 19:26:00 Test Item Value Reference Range Interpretation Comments MAGNESIUM (BEAKER) (test code = 1.9 mg/dL 1.6-2.6 627) Stitcher Hand ID - [id number] 19:26:00 Test Item Value Reference Range Interpretation Comments PHOSPHORUS (BEAKER) (test code = 3.0 mg/dL 2.3-4.7 604) Stitcher Hand ID - DBCREATINE KINASE (CK)2021-02-27 19:26:00 Test Item Value Reference Range Interpretation Comments CREATINE KINASE TOTAL (BEAKER) (test 36 U/L 29-200 code = 380) Stitcher Hand ID - DBCBC W/PLT COUNT & AUTO [id number] 19:08:00 Test Item Value Reference Range Interpretation Comments WHITE BLOOD CELL COUNT (BEAKER) 9.4 K/ L 3.5-10.5 (test code = 775) RED BLOOD CELL COUNT (BEAKER) 3.63 M/ L 4.63-6.08 L (test code = 761) HEMOGLOBIN (BEAKER) (test code = 10.7 GM/DL 13.7-17.5 L 410) HEMATOCRIT (BEAKER) (test code = 34.0 % 40.1-51.0 L 411) MEAN CORPUSCULAR VOLUME (BEAKER) 93.7 fL 79.0-92.2 H (test code = 753) MEAN CORPUSCULAR HEMOGLOBIN 29.5 pg 25.7-32.2 (BEAKER) (test code = 751) MEAN CORPUSCULAR HEMOGLOBIN CONC 31.5 GM/DL 32.3-36.5 L (BEAKER) (test code = 752) RED CELL DISTRIBUTION WIDTH 15.9 % 11.6-14.4 H (BEAKER) (test code = 412) PLATELET COUNT (BEAKER) (test 289 K/CU MM 150-450 code = 756) MEAN PLATELET VOLUME (BEAKER) 9.0 fL 9.4-12.4 L (test code = 754) NUCLEATED RED BLOOD CELLS 0 /100 WBC 0-0 (BEAKER) (test code = 413) NEUTROPHILS RELATIVE PERCENT 71 % (BEAKER) (test code = 429) LYMPHOCYTES RELATIVE PERCENT 21 % (BEAKER) (test code = 430) MONOCYTES RELATIVE PERCENT 6 % (BEAKER) (test code = 431) EOSINOPHILS RELATIVE PERCENT 2 % (BEAKER) (test code = 432) BASOPHILS RELATIVE PERCENT 0 % (BEAKER) (test code = 437) NEUTROPHILS ABSOLUTE COUNT 6.68 K/ L 1.78-5.38 H (BEAKER) (test code = 670) LYMPHOCYTES ABSOLUTE COUNT 1.96 K/ L 1.32-3.57 (BEAKER) (test code = 414) MONOCYTES ABSOLUTE COUNT (BEAKER) 0.56 K/ L 0.30-0.82 (test code = 415) EOSINOPHILS ABSOLUTE COUNT 0.14 K/ L 0.04-0.54 (BEAKER) (test code = 416) BASOPHILS ABSOLUTE COUNT (BEAKER) 0.04 K/ L 0.01-0.08 (test code = 417) IMMATURE GRANULOCYTES-RELATIVE 0 % 0-1 PERCENT (BEAKER) (test code = 2801) RAD, CHEST, 2 [id number] 18:56:00Reason for exam:->SHORT[facility] BREATH [facility] : 1970 Sex: MFINAL REPORT HISTORY: Shortness of breath COMPARISON: None FINDINGS: Mildly increased pleural opacity at the in the lateral aspect of the lower right hemithorax, which may just represent slightly prominent subpleural fat. There is no blunting of the posterior costophrenic sulcus to suggestpresence of a pleural effusion. No lobar consolidation is visualized. No pneumothorax. The heart shad ow is enlarged. Left subclavian transvenous cardiac pacing hardware is present, with leads in the region of the right ventricle and coronary sinus.. The thoracic aorta is normal in caliber. Degenerative changes are present in the spine. IMPRESSION: No evidence of acute cardiopulmonary disease. Signed:Maya Arroyo MDReport Verified Date/Time: 02/27/2021 18:56:05 ECG 12 [id number] 16:35:39 Test Item Value Reference Range Interpretation Comments Ventricular rate (test code = 253) Atrial rate (test code = 255) QRSD interval (test code = 260) QT interval (test code = 264) QTC interval (test code = 265) P axis 1 (test code = 267) QRS axis 1 (test code = 268) T wave axis (test code = 270) EKG impression (test Atrial-sensed code = 273) ventricular-paced rhythm with occasional premature ventricular and fusion complexes-Biventricula r pacemaker detected-Abnormal ECG-Electronically Signed By Blake FULLER, [facility] ([id number]) on 01/13/2021 11:35:37 AM [facility]IpL-[facility] (COVID-19) RNA [Presence] in Respiratory specimen by MAURA with probe [id number] 00:00:14 Test Item Value Reference Range Interpretation Comments SARS-CoV-2 (COVID-19) RNA Not detected Not-Detected [Presence] in Respiratory specimen by MAURA with probe detection (test code = 76473-9) [facility] ED Preliminary Interpretation - Not an [id number] 02:01:48 Test Item Value Reference Range Interpretation Comments SCOTT (test code = SCOTT) Dwight Williamson MD 12/25/2020 4:43 [facility] ED Preliminary Interpretation - Not an OrderPerformed by: Dwight Williamson MDAuthorized by: Dwight Williamson MD ECG reviewed by ED Physician in the absence of a in flight refueling craftsman: yes Interpretation: Interpretation: abnormal Rate: ECG rate: 102 ECG rate assessment: tachycardic Rhythm: Rhythm: paced QRS: QRS axis: Right QRS intervals: WideConduction: Conduction: normal ST segments: ST segments: NormalT waves: T waves: normal Lab Interpretation Abnormal (test code = 73972-1) Restorationist KcmuslclFHYU-YrW-5 (COVID-19) RNA [Presence] in Respiratory specimen by MAURA with probe [id number] 21:35:16 Test Item Value Reference Range Interpretation Comments SARS-CoV-2 (COVID-19) RNA Not detected Not-Detected [Presence] in Respiratory specimen by MAURA with probe detection (test code = 28142-6) GAL LOJASARS-CoV-2 (COVID-19) RNA [Presence] in Respiratory specimen by MAURA with probe [id number] 04:09:49 Test Item Value Reference Range Interpretation Comments SARS-CoV-2 (COVID-19) RNA Not detected Not-Detected [Presence] in Respiratory specimen by MAURA with probe detection (test code = 96152-8) GAL CORNELIUS ZAEGNZEF-XzY-0 (COVID-19) RNA [Presence] in Respiratory specimen by MAURA with probe [id number] 21:37:52 Test Item Value Reference Range Interpretation Comments SARS-CoV-2 (COVID-19) RNA Not detected Not-Detected [Presence] in Respiratory specimen by MAURA with probe detection (test code = 93570-4) [facility]-CoV-2 (COVID-19) RNA [Presence] in Respiratory specimen by MAURA with probe [id number] 13:34:08 Test Item Value Reference Range Interpretation Comments SARS-CoV-2 (COVID-19) RNA Not detected Not-Detected [Presence] in Respiratory specimen by MAURA with probe detection (test code = 09910-1) [facility] RNA [Presence] in Respiratory specimen by MAURA with probe [id number] 01:21:01 Test Item Value Reference Range Interpretation Comments SARS-CoV-2 (COVID-19) RNA Not detected Not-Detected [Presence] in Respiratory specimen by MAURA with probe detection (test code = 05695-3) [facility]-CoV-2 (COVID-19) RNA [Presence] in Respiratory specimen by MAURA with probe [id number] 04:48:19 Test Item Value Reference Range Interpretation Comments SARS-CoV-2 (COVID-19) RNA Not detected Not-Detected [Presence] in Respiratory specimen by MAURA with probe detection (test code = 37527-8) GAL CORNELIUS FNRUEYVF-VnB-1 (COVID-19) RNA [Presence] in Respiratory specimen by MAURA with probe [id number] 06:05:26 Test Item Value Reference Range Interpretation Comments SARS-CoV-2 (COVID-19) RNA [Presence] Detected Not-Detected in Respiratory specimen by MAURA with probe detection (test code = 94340-8) [facility] ([facility] RNA [Presence] in Respiratory specimen by MAURA with probe [id number] 18:02:46 Test Item Value Reference Range Interpretation Comments SARS-CoV-2 (COVID-19) RNA [Presence] Detected Not-Detected in Respiratory specimen by MAURA with probe detection (test code = 95149-4) [facility]-CoV-2 (COVID-19) RNA [Presence] in Respiratory specimen by MAURA with probe [id number] 20:04:34 Test Item Value Reference Range Interpretation Comments SARS-CoV-2 (COVID-19) RNA [Presence] Detected Not-Detected in Respiratory specimen by MAURA with probe detection (test code = 01454-9) [facility]AL [facility] coronavirus 2 RNA [Presence] in Respiratory specimen by MAURA with probe [id number] 17:36:17 Test Item Value Reference Range Interpretation Comments SARS coronavirus 2 RNA [Presence] in Detected Not-Detected Respiratory specimen by MAURA with probe detection (test code = 51956-2) GAL FU coronavirus 2 RNA [Presence] in Respiratory specimen by MAURA with probe [id number] 15:27:51 Test Item Value Reference Range Interpretation Comments SARS coronavirus 2 RNA Not detected Not-Detected [Presence] in Respiratory specimen by MAURA with probe detection (test code = 33532-0) GAL LOJA
[2022-09-26] MEDS ORDERED: MORPHINE 2 MG/ML SYR ONE (13:41)
[2022-09-26] MEDS ORDERED: MORPHINE 4 MG/ML SYR ONE (13:42)
[2022-09-26] MEDS ORDERED: ALTEPLASE 2 MG/VIAL IV ONE (14:43)
[2022-09-26] MEDS ORDERED: WATER FOR INJ,STERILE 10 ML ONE (14:44)
--- NOTE | 2022-09-26 15:39 | EDPHYS ---
Physician Documentation [facility] Name: Siva West Age: 52 yrs Sex: Male : 1970 Arrival Date: 09/26/2022 Time: 12:35 Bed 5 Private MD: ED Physician Mere Partida HPI: 09/26 14:00 This 52 yrs old Male presents to ER via Ambulatory with complaints of picc line sd2 clogged, Shoulder Pain. 14:00 52 yo M presents with CC of PICC line clogged. Reports PICC line placed approximately a sd2 week ago for IV antibiotics which he is receiving at home. Also has LVAD in place. Unable to flush or aspirate the line. Pt also complains of R shoulder pain. Reports prior rotator cuff injury and believes it was exacerbated with the way he had to hold his arm to have the PICC line placed. Was sent home with [place] 10/325 mg but ran out and reports the pain is worse. Denies any trauma or further injury. . Historical: - Allergies: 13:20 No Known Allergies; iw - Home Meds: 13:20 amiodarone 400 mg Oral tab 1 tab once daily [Active]; aspirin 81 mg Oral chew 1 tab iw once daily [Active]; atorvastatin 20 mg oral tab once daily [Active]; hydrocodone-acetaminophen 10-325 mg Oral tab 1 tab every 4-6 hours [Active]; mexiletine 200 mg Oral cap 1 cap every 8 hours [Active]; carvedilol 12.5 mg oral tab 1 tab 2 times per day [Active]; duloxetine 20 mg oral cpDR 1 cap 2 times per day [Active]; empagliflozin 25 mg oral tab 1 tab once daily [Active]; levothyroxine 75 mcg tab 1 tab once daily [Active]; nitroglycerin 0.4 mg SL subl 1 tab every 5 minutes [Active]; pantoprazole 40 mg oral TbEC 1 tab once daily [Active]; pregabalin 75 mg Oral cap 1 cap 2 times per day [Active]; pantoprazole 40 mg oral TbEC 1 tab once daily [Active]; sacubitril-valsartan 24-26 mg oral tab 1 tab 2 times per day [Active]; tamsulosin 0.4 mg oral cap 1 cap once daily [Active]; - PMHx: 15:44 Atrial Fib; CHF; Hypertension; thyroid; Myocardial infarction; kb3 - PSHx: 15:44 [place] knee sx; Leg sx; VAD; kb3 - Immunization history:: Adult Immunizations unknown. - Social history:: Smoking status: unknown. ROS: 14:00 Constitutional: Negative for fever, chills, and weight loss, Eyes: Negative for injury, sd2 pain, redness, and discharge, Cardiovascular: Negative for chest pain, palpitations, and edema, Respiratory: Negative for shortness of breath, cough, wheezing. Abdomen/GI: Negative for abdominal pain, nausea, vomiting, diarrhea. MS/Extremity: Negative for injury and deformity, Positive for pain Skin: Negative for injury, rash, and discoloration. Exam: 14:00 Constitutional: This is a well developed, well nourished patient who is awake, alert, sd2 and in no acute distress. Head/Face: Normocephalic, atraumatic. Eyes: EOMI, normal conjunctiva bilaterally Chest/axilla: Normal chest wall appearance and motion. Nontender with no deformity. LVAD in place to chest Skin: Warm, dry with normal turgor. Normal color with no rashes, no lesions, and no evidence of cellulitis. MS/ Extremity: Pulses equal, no cyanosis. Neurovascular intact. Limited ROM of R shoulder due to pain worsened with flexion and abduction. PICC line in place to R arm Psych: Awake, alert, with orientation to person, place and time. Behavior, mood, and affect are within normal limits. Vital Signs: 15:45 BP 165 / 85; Pulse 85; Resp 20; Temp 98; Pulse Ox 100% ; db MDM: 13:13 Patient medically screened. sd2 14:00 Differential diagnosis: Contusion, sprain, strain, spasm, rotator cuff injury, clotted sd2 PICC line, line infection among others. 15:36 Data reviewed: vital signs, nurses notes. Counseling: I had a detailed discussion with sd2 the patient and/or guardian regarding: the historical points, exam findings, and any diagnostic results supporting the discharge/admit diagnosis, the need for outpatient follow up, to return to the emergency department if symptoms worsen or persist or if there are any questions or concerns that arise at home. ED course: Discussed XR for shoulder. NO significant trauma. Not indicated at this time. Likely flare of old injury. Activase given for PICC line and one lumen is flushing and aspirating properly. Pt advised to use this lumen for his antibiotics and to follow up with his doctor for replacement of PICC line and any further issues if needed. Verbalizes understanding of discharge plan and strict return precautions. Pt also advised to follow up with Orthopedics. . Administered Medications: 13:45 Drug: morphine 6 mg Route: IM; Site: left deltoid; db 16:03 Follow up: Response: No adverse reaction db 14:58 Drug: Cathflo Activase 2 mg Route: IV Thrombolytics; kb3 16:04 Follow up: Response: No adverse reaction db Disposition Summary: 09/26/22 15:38 Discharge Ordered Location: Home sd2 Problem: new sd2 Symptoms: have improved sd2 Condition: Stable sd2 Diagnosis - Pain in right shoulder sd2 - PICC Line Malfunction sd2 Followup: sd2 - With: Private Physician - When: 2 - 3 days - Reason: Recheck today's complaints, Continuance of care, Re-evaluation by your physician Discharge Instructions: - Discharge Summary Sheet sd2 - Shoulder Pain sd2 - PICC Insertion, Care After sd2 Forms: - Medication Reconciliation Form sd2 - Thank You Letter sd2 - Antibiotic Education sd2 - Prescription Opioid Use sd2 Signatures: Pura Moncada, RN QUIRINO iw Mere Partida MD MD sd2 Miracle Beckham RN RN kb3 Laura Augustine RN RN db
--- NOTE | 2022-09-26 15:39 | ER ---
Nurse's Notes [facility] Name: Siva West Age: 52 yrs Sex: Male : 1970 Arrival Date: 09/26/2022 Time: 12:35 Bed 5 Private MD: Diagnosis: Pain in right shoulder;PICC Line Malfunction Presentation: 09/26 13:12 Chief complaint: Patient states: pain in right shoulder X 2 days, thinks it's his iw rotator cuff, also his purple port of PICC line has not been flushing , red port is patent, he is receiving ceftriaxone 2 gm daily for "blood infection", he is an LVAD pt X 1 year , was told to come to ER to see if we can get PICC line to flush and of not pt is to go to [facility] ER. Coronavirus screen: At this time, the client does not indicate any symptoms associated with coronavirus-19. Ebola Screen: Patient negative for fever greater than or equal to 101.5 degrees Fahrenheit, and additional compatible Ebola Virus Disease symptoms Patient denies exposure to infectious person. Patient denies travel to an Ebola-affected area in the 21 days before illness onset. No symptoms or risks identified at this time. Initial Sepsis Screen: Does the patient meet any 2 criteria? No. Patient's initial sepsis screen is negative. Does the patient have a suspected source of infection? No. Patient's initial sepsis screen is negative. Risk Assessment: Do you want to hurt yourself or someone else? Patient reports no desire to harm self or others. Onset of symptoms was September 26, 2022. 13:12 Method Of Arrival: Ambulatory iw 13:12 Acuity: EFRAIN 3 iw Historical: - Allergies: 13:20 No Known Allergies; iw - Home Meds: 13:20 amiodarone 400 mg Oral tab 1 tab once daily [Active]; aspirin 81 mg Oral chew 1 tab iw once daily [Active]; atorvastatin 20 mg oral tab once daily [Active]; hydrocodone-acetaminophen 10-325 mg Oral tab 1 tab every 4-6 hours [Active]; mexiletine 200 mg Oral cap 1 cap every 8 hours [Active]; carvedilol 12.5 mg oral tab 1 tab 2 times per day [Active]; duloxetine 20 mg oral cpDR 1 cap 2 times per day [Active]; empagliflozin 25 mg oral tab 1 tab once daily [Active]; levothyroxine 75 mcg tab 1 tab once daily [Active]; nitroglycerin 0.4 mg SL subl 1 tab every 5 minutes [Active]; pantoprazole 40 mg oral TbEC 1 tab once daily [Active]; pregabalin 75 mg Oral cap 1 cap 2 times per day [Active]; pantoprazole 40 mg oral TbEC 1 tab once daily [Active]; sacubitril-valsartan 24-26 mg oral tab 1 tab 2 times per day [Active]; tamsulosin 0.4 mg oral cap 1 cap once daily [Active]; - PMHx: 15:44 Atrial Fib; CHF; Hypertension; thyroid; Myocardial infarction; kb3 - PSHx: 15:44 [place] knee sx; Leg sx; VAD; kb3 - Immunization history:: Adult Immunizations unknown. - Social history:: Smoking status: unknown. Screenin:52 [facility] ED Fall Risk Assessment (Adult) History of falling in the last 3 months, db including since admission No falls in past 3 months (0 pts) Confusion or Disorientation No (0 pts) Intoxicated or Sedated No (0 pts) Impaired Gait No (0 pts) Mobility Assist Device Used No (0 pt) Altered Elimination No (0 pt) Score/Fall Risk Level 0 - 2 = Low Risk Oriented to surroundings. Abuse screen: Denies threats or abuse. Denies injuries from another. Nutritional screening: No deficits noted. Tuberculosis screening: No symptoms or risk factors identified. Assessment: 13:52 Reassessment: Patient appears in no apparent distress at this time. states picc line in db right arm is no longer flushing. takes home antibiotics. has heart pump. General: Appears in no apparent distress. comfortable, Behavior is calm, cooperative, appropriate for age, quiet. Pain: Complains of pain in right arm. Neuro: No deficits noted. Level of Consciousness is awake, alert, obeys commands, Oriented to person, place, time, situation, Appropriate for age Speech is normal, Facial symmetry appears normal. Cardiovascular: No deficits noted. Cardiovascular: patient has heart pump external. Respiratory: No deficits noted. Airway is patent Respiratory effort is even, unlabored, Respiratory pattern is regular, symmetrical. GI: No deficits noted. No signs and/or symptoms were reported involving the gastrointestinal system. 15:06 General: Pt states no relief from morphine injection and requesting more pain kb3 medications. notified. 15:37 General: Red port of double lumen right upper arm PICC line aspirating blood and kb3 flushing well. White port remains occluded with visible blood in the lumen. Pt reports that port has not worked "for a while." notified. 16:01 Reassessment: patient spoke to Dr. Patrick after discharge again and became loud cussing db and upset. Walked out of ER steady gate with sister. Vital Signs: 15:45 BP 165 / 85; Pulse 85; Resp 20; Temp 98; Pulse Ox 100% ; db ED Course: 12:35 Patient arrived in ED. as 12:39 Mere Partida MD is Attending Physician. sd2 13:19 Triage completed. iw 13:52 Patient has correct armband on for positive identification. Bed in low position. Call db light in reach. Side rails up X2. Pulse ox on. NIBP on. 14:00 Arm band placed on right wrist. kb3 14:39 Miracle Beckham, RN is Primary Nurse. kb3 15:39 No provider procedures requiring assistance completed. Right upper arm PICC line kb3 remains in place. Administered Medications: 13:45 Drug: morphine 6 mg Route: IM; Site: left deltoid; db 16:03 Follow up: Response: No adverse reaction db 14:58 Drug: Cathflo Activase 2 mg Route: IV Thrombolytics; kb3 16:04 Follow up: Response: No adverse reaction db Medication: 13:52 VIS not applicable for this client. db Outcome: 15:38 Discharge ordered by . sd2 16:02 Discharged to home ambulatory, with family. db 16:02 Condition: stable 16:02 Discharge instructions given to patient, Demonstrated understanding of follow-up care. 16:04 Patient left the ED. db Signatures: Kat Lee Irene, RN RN iw Mere Partida MD MD sd2 Miracle Beckham, RN RN kb3 Laura Augustine RN RN db
[2022-09-26 16:07] VITALS: BP 165/85; TEMP 98; O2SAT 100
== END 2022-09-26 16:04 | disposition home or self-care (01) ==
LOC: ER 12:35
DX: T82.594A Other mechanical complication of infusion catheter, initial encounter (principal); I10 Essential (primary) hypertension; I50.9 Heart failure, unspecified; I48.91 Unspecified atrial fibrillation; Z79.82 Long term (current) use of aspirin
CPT/HCPCS: J2997; J2270